=== PATIENT | female | born 1965 | race Caucasian/White ===

== ENCOUNTER → 2016-06-08 | Outpatient (CLI) | payer BC ==
[~2016-06-08] MED LIST: ACET-77 PO; AMIT25TA9 PO; BUME0.5T3 PO; CEFT2FRO2 IV; ERYT-95 PO; GABA-488 PO; INSU100I10 SQ; INSU100I14 SQ; INSU100V6 SQ; LACT20SO2 PO; LISI40TA PO; MENT71OI TOP; ONDA8TAB12 PO; PANT40TA3 PO; POTA10TA14 PO; TRAM50TA2 PO
--- NOTE | 2016-06-08 13:10 | Diagnostic Imaging Report ---
Gastric emptying scan. INDICATION: Intractable nausea. After the oral administration of 1.1 mCi of technetium 99m sulfur colloid mixed in a meal , images over the stomach with counts performed. FINDINGS: Gastric emptying is 8% at one hour , 15% at 2 hours, 18%, at 3 hours, and 37% at 4 hours. This is too slow and normally there is more than 70% emptying by 4 hours. IMPRESSION: Delayed gastric emptying. Dictated by: Dictated on workstation # [id number]
== END ==
LOC: CARD 06:54
PROVIDERS: ATTEND Family Medicine
DX: G43.A1 Cyclical vomiting, in migraine, intractable (principal)
CPT/HCPCS: 78264

== ENCOUNTER 2016-07-21 09:35 | Inpatient (IN) | payer BC ==
[2016-07-21] VITALS (10 sets, daily range): BP systolic 79–108; BP diastolic 41–57
[~2016-07-21] VITALS: Ht 170.2 cm; Wt 142.9 kg
[2016-07-21] MEDS ORDERED: NS IV 1000 ML 1,000 ML IV ONE ×3 (09:44→11:35)
[2016-07-21] MEDS ORDERED: ONDANSETRON 4 MG/2 ML (SDV) Z0FRAN IVP ONE ×2 (09:45→11:00)
--- NOTE | 2016-07-21 09:55 | Diagnostic Imaging Report ---
EXAM: CT head. TECHNIQUE: Noncontrast axial images of the brain were obtained. INDICATION: Slurred speech. FINDINGS: There is no intracranial hemorrhage, edema, or mass effect. There is, however, a subtle area of hypodensity seen in the posterior frontal region periventricular white matter on the left side of uncertain etiology. No hydrocephalus. The visualized portions of the orbits and paranasal sinuses appear unremarkable. IMPRESSION: 1. No intracranial hemorrhage. 2. There is a subtle hypodense nonspecific lesion within the left periventricular white matter in the posterior left frontal area. Better evaluation with MRI is suggested. There is a A message about the findings was left with Bhanu at the ER front end manager for Dr. Shafer at the time of dictation. Dictated by: Dictated on workstation # [id number]
[2016-07-21] MEDS ORDERED: AMIT25TA9 PO (10:04)
[2016-07-21] MEDS ORDERED: LISI40TA PO (10:04)
[2016-07-21] MEDS ORDERED: GABA-488 PO ×3 (10:04)
[2016-07-21] MEDS ORDERED: BUME0.5T3 PO (10:04)
[2016-07-21] MEDS ORDERED: INSU100V6 SQ (10:04)
[2016-07-21] MEDS ORDERED: POTA10TA14 PO (10:04)
[2016-07-21] MEDS ORDERED: INSU100I10 SQ (10:04)
[2016-07-21 10:11] LABS: INR 1.4 (0.8-1.4); PROTHROMBIN TIME PATIENT 16.6 SEC (12.2-14.7)
[2016-07-21] MEDS ORDERED: cefTRIAXone INJECTION 1,000 MG in NS (IVPB) 50 ML IV ONE (10:15)
[2016-07-21 10:20] LABS: ALANINE AMINOTRANSFERASE 35 U/L (0-55); ALBUMIN 3.1 G/DL (3.2-4.5); ANION GAP 12 MMOL/L (5-14); ASPARTATE AMINO TRANSFERASE 58 U/L (5-34); BILIRUBIN,TOTAL 1.2 MG/DL (0.1-1.0); BLOOD UREA NITROGEN 18 MG/DL (7-18); BUN/CREATININE RATIO 15; CALCIUM 8.5 MG/DL (8.5-10.1); CARBON DIOXIDE 21 MMOL/L (21-32); CHLORIDE 107 MMOL/L (98-107); CREATININE SERUM 1.21 MG/DL (0.60-1.30); GFR ESTIMATED 47; GLUCOSE 132 MG/DL (70-105); POTASSIUM 4.6 MMOL/L (3.6-5.0); SODIUM 140 MMOL/L (135-145); TOTAL PROTEIN 6.7 G/DL (6.4-8.2)
[2016-07-21 10:25] LABS: TROPONIN I < 0.30 NG/ML (<0.30)
[2016-07-21 10:26] LABS: BILIRUBIN,URINE NEGATIVE (NEGATIVE); KETONES,URINE NEGATIVE (NEGATIVE); LEUKOCYTE ESTERASE ,URINE NEGATIVE (NEGATIVE); NITRITE,URINE NEGATIVE (NEGATIVE); PH,URINE 6 (5-9); PROTEIN,URINE NEGATIVE (NEGATIVE); UROBILINOGEN,URINE NORMAL (NORMAL)
[2016-07-21] MEDS ORDERED: ACETAMINOPHEN 500 MG TAB (TYLENOL) PO ONE (10:30)
--- NOTE | 2016-07-21 10:36 | Diagnostic Imaging Report ---
EXAMINATION: Portable upright radiograph of the chest. INDICATION: Slurred speech. FINDINGS: The heart size is mildly enlarged. There is slight vascular congestion. No focal infiltrate. No effusion or pneumothorax. The mediastinum and eric appear unremarkable. IMPRESSION: Cardiomegaly with slight vascular congestion. Dictated by: Dictated on workstation # [id number]
[2016-07-21 10:37] LABS: BASOPHILS % (AUTO) 0 % (0-10); EOSINOPHILS # (AUTO) 0.1 10^3/uL (0.0-0.3); EOSINOPHILS % (AUTO) 0 % (0-10); LYMPHOCYTES % (AUTO) 5 % (12-44); MEAN CORPUSCULAR HEMOGLOBIN 30 PG (25-34); MEAN CORPUSCULAR HGB CONC 32 G/DL (32-36); MEAN CORPUSCULAR VOLUME 93 FL (80-99); MONOCYTES # (AUTO) 0.2 X 10^3 (0.0-1.0); MONOCYTES % (AUTO) 1 % (0-12); NEUTROPHILS # (AUTO) 17.7 X 10^3 (1.8-7.8); NEUTROPHILS % (AUTO) 93 % (42-75); RED BLOOD COUNT 4.39 10^6/uL (4.35-5.85); RED CELL DISTRIBUTION WIDTH 15.6 % (10.0-14.5)
[2016-07-21 10:41] LABS: PLATELET COUNT 38 10^3/uL (130-400)
[2016-07-21 10:55] LABS: BAND NEUTROPHILS 13 %; BASOPHILS % (MANUAL) 0 %; EOSINOPHILS % (MANUAL) 0 %; LYMPHOCYTES % (MANUAL) 5 %; NEUTROPHILS % (MANUAL) 81 %
[2016-07-21] MEDS ORDERED: VANCOMYCIN INJECTION 1,000 MG in NS (IVPB) 250 ML IV ONE (11:00)
--- NOTE | 2016-07-21 12:00 | ED General ---
General Chief Complaint: Neuro-Stroke Like Symptoms Stated Complaint: POSS STROKE Nursing Triage Note: Pt to ED via [facility]. Pt's reported to EMS that pt began having slurred speech and generalized weakness at 0700 today. Pt also reports she vomited at 0400 this morning. Pt reports having headache worse when lying down for past few days. Pt loudly c/o low back pain upon arrival to ED. EMS reports BP of 85/50 and temp of 102.9 en route. Nursing Sepsis Screen: Possible Severe Sepsis Risk History of Present Illness Time Seen by Provider: 09:36 Initial Comments This 50-year-old woman presented to the emergency room with complaints of vomiting, slurred speech, diffuse extremity weakness, and fever. Symptoms started this morning when she woke and vomited around 04:00. Slurred speech started around 07:00. EMS elected to bring her here rather than the closest facility due to concern for possible stroke. Patient had exacerbation of chronic lower extremity weakness and appeared to have new bilateral upper extremity weakness, right greater than left. Heart rate was in the 120s and temperature was 102.9 for EMS. Fingerstick blood sugar was 117. Patient was initially hypotensive in the field and systolic blood pressure was 117 on arrival per EMS after receiving approximately 500 mL normal saline. Initial systolic blood pressure measured in the ER was 86. Stroke activation was paged out with last known well time marked as 07:00. Patient reports having a throbbing headache for the past couple of nights. Back pain has been rather intense today. She has chronic lower extremity weakness that is worse today. She was able to ambulate briefly this morning with extreme difficulty. Allergies and Home Medications Allergies Coded Allergies: metoclopramide (Unverified Allergy, Unknown, 07/21/16) Home Medications Amitriptyline HCl 25 Mg Tablet, 25 MG PO DAILY, (Reported) Bumetanide 0.5 Mg Tablet, 0.5 MG PO DAILY, (Reported) Erythromycin Base 250 Mg Tablet, 250 MG PO TID, (Reported) FILLED 06/09/16 #90 / STILL HAS SOME LEFT IN BOTTLE Gabapentin 300 Mg Capsule, 300 MG PO DAILY, (Reported) Gabapentin 300 Mg Capsule, 600 MG PO DAILY@1200, (Reported) TAKES 2 (300 MG) CAPSULES Gabapentin 300 Mg Capsule, 900 MG PO HS, (Reported) TAKES 3 (300 MG) CAPSULES Insulin Aspart 300 Units/3 Ml Solution, SQ SLIDING/SCALE, (Reported) Insulin Glargine,Hum.rec.anlog 100 Unit/1 Ml Insuln.pen, 50 UNITS SQ DAILY, ( Reported) Insulin Glargine,Hum.rec.anlog 100 Unit/1 Ml Vial, 60 UNIT SQ HS, (Reported) Lisinopril 40 Mg Tablet, 40 MG PO DAILY, (Reported) Ondansetron HCl 8 Mg Tablet, 8 MG PO Q6H PRN for NAUSEA/VOMITING-1ST LINE, ( Reported) Pantoprazole Sodium 40 Mg Tablet.dr, 40 MG PO DAILY, (Reported) FILLED 05/21/16 #30 Potassium Chloride 10 Meq Tab.er.prt, 10 MEQ PO DAILY, (Reported) FILLED 05/14/16 #30 Constitutional: see HPI EENTM: other (dry oropharynx) Respiratory: no symptoms reported Cardiovascular: see HPI Gastrointestinal: see HPI Genitourinary: no symptoms reported : No Musculoskeletal: see HPI Skin: no symptoms reported Psychiatric/Neurological: See HPI Hematologic/Lymphatic: No Symptoms Reported Past Lvhvgvf-[id number]-Tvkeuh Hx Patient Social History Alcohol Use: Occasionally Uses Recreational Drug Use: No Smoking Status: Never a Smoker Recent Foreign Travel: No Contact w/Someone Who Travel: No Recent Infectious Disease Expo: No Recent Hopitalizations: No Seasonal Allergies Seasonal Allergies: No Surgeries HX Surgeries: Yes (spleenectomy) Surgeries: Section, Hysterectomy Respiratory Hx Respiratory Disorders: No Cardiovascular Hx Cardiac Disorders: Yes Cardiac Disorders: Hypertension Neurological Hx Neurological Disorders: Yes Neurological Disorders: Neuropathy Reproductive System Hx Reproductive Disorders: No Genitourinary Hx Genitourinary Disorders: No Gastrointestinal Hx Gastrointestinal Disorders: No Musculoskeletal Hx Musculoskeletal Disorders: Yes (generalized leg weakness) Endocrine Hx Endocrine Disorders: Yes Endocrine Disorders: Diabetes, Insulin dep HEENT HX ENT Disorders: No Cancer Hx Cancer: No Psychosocial Hx Psychiatric Problems: No Blood Transfusions 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) Physical Exam-Suspected Sepsis Physical Exam Vital Signs Vital Sign - Last 12Hours 07/21/16 07/21/16 09:44 13:30 Temp 100.9 Pulse 113 Resp 19 B/P (MAP) 86/52 Pulse Ox 94 O2 Delivery Room Air O2 Flow Rate 2.00 Capillary Refill : Less Than 3 Seconds Blood Pressure Mean: 63 General Appearance: No Apparent Distress, WD/WN HEENT: PERRL/EOMI, Normal ENT Inspection, Other (oropharynx dry) Neck: Normal Inspection Respiratory: Lungs Clear, Normal Breath Sounds, No Accessory Muscle Use, No Respiratory Distress Cardiovascular: No Edema, No Murmur, Tachycardia Gastrointestinal: Normal Bowel Sounds, Non Tender, Soft Back: Normal Inspection, No Vertebral Tenderness Extremity: Normal Inspection, No Pedal Edema Neurologic/Psychiatric: Alert, Oriented x3, No Motor/Sensory Deficits, Normal Mood/Affect, compliance technician II-XII Norm as Tested Skin: normal color, warm/dry (feels febrile) Focused Exam Time of Focused Exam: 12:02 Respiratory: No Accessory Muscle Use, No Respiratory Distress Cardiovascular: Regular Rate, Rhythm, Other (sinus tachycardia with improved rate around 100) Capillary Refill: Less Than 3 Seconds Skin: normal color, warm/dry Lactic Acid Level Progress/Results/Core Measures Suspected Sepsis Recent Fever Within 48 Hours: Yes Infection Criteria Present: Suspected New Infection New/Unexplained Altered Menta: Yes Sepsis Screen: Possible Severe Sepsis Risk Sepsis Diagnosis: SIRS Temperature:100.9 Pulse: 113 Respiratory Rate: 19 Laboratory Tests 07/21/16 10:30: White Blood Count 19.0H 07/22/16 04:45: White Blood Count 57.8*H Blood Pressure 86 /52 Mean: 63 Laboratory Tests 07/21/16 09:55: Creatinine 1.21, INR Comment 1.4, Total Bilirubin 1.2H 07/21/16 10:30: Platelet Count 38*L 07/22/16 04:45: Creatinine 2.21H, Platelet Count 58L Results/Orders Lab Results Laboratory Tests Test 07/21/16 09:55 07/21/16 09:58 07/21/16 10:05 07/21/16 10:06 Range/Units Prothrombin Time 16.6 H 12.2-14.7 SEC INR Comment 1.4 0.8-1.4 Activated Partial Thromboplast Time 31 24-35 SEC D-Dimer 4.47 H 0.00-0.49 UG/ML Sodium Level 140 135-145 MMOL/L Potassium Level 4.6 3.6-5.0 MMOL/L Chloride Level 107 98-107 MMOL/L Carbon Dioxide Level 21 21-32 MMOL/L Anion Gap 12 5-14 MMOL/L Blood Urea Nitrogen 18 7-18 MG/DL Creatinine 1.21 0.60-1.30 MG/DL Estimat Glomerular Filtration Rate 47 BUN/Creatinine Ratio 15 Glucose Level 132 H 70-105 MG/DL Calcium Level 8.5 8.5-10.1 MG/DL Total Bilirubin 1.2 H 0.1-1.0 MG/DL Aspartate Amino Transf (AST/SGOT) 58 H 5-34 U/L Alanine Aminotransferase (ALT/SGPT) 35 0-55 U/L Alkaline Phosphatase 106 40-136 U/L Troponin I < 0.30 <0.30 NG/ML Total Protein 6.7 6.4-8.2 G/DL Albumin 3.1 L 3.2-4.5 G/DL Lactic Acid Level 5.83 *H 0.50-2.00 MMOL/L Glucometer 119 H 70-110 MG/DL Thyroid Stimulating Hormone (TSH) 2.10 0.35-4.94 UIU/ML Test 07/21/16 10:19 07/21/16 10:30 07/21/16 13:05 07/21/16 19:21 Range/Units Urine Color YELLOW Urine Clarity CLEAR Urine pH 6 5-9 Urine Specific [place] 1.020 1.016-1.022 Urine Protein NEGATIVE NEGATIVE Urine Glucose (UA) 3+ H NEGATIVE Urine Ketones NEGATIVE NEGATIVE Urine Nitrite NEGATIVE NEGATIVE Urine Bilirubin NEGATIVE NEGATIVE Urine Urobilinogen NORMAL NORMAL MG/DL Urine Leukocyte Esterase NEGATIVE NEGATIVE Urine RBC (Auto) 3+ H NEGATIVE Urine RBC 5-10 H /HPF Urine WBC NONE /HPF Urine Crystals NONE /LPF Urine Bacteria NEGATIVE /HPF Urine Casts NONE /LPF Urine Mucus NEGATIVE /LPF Urine Culture Indicated NO White Blood Count 19.0 H 4.3-11.0 10^3/uL Red Blood Count 4.39 4.35-5.85 10^6/uL Hemoglobin 13.2 11.5-16.0 G/DL Hematocrit 41 35-52 % Mean Corpuscular Volume 93 80-99 FL Mean Corpuscular Hemoglobin 30 25-34 PG Mean Corpuscular Hemoglobin Concent 32 32-36 G/DL Red Cell Distribution Width 15.6 H 10.0-14.5 % Platelet Count 38 *L 130-400 10^3/uL Mean Platelet Volume 7.4-10.4 FL Neutrophils (%) (Auto) 93 H 42-75 % Lymphocytes (%) (Auto) 5 L 12-44 % Monocytes (%) (Auto) 1 0-12 % Eosinophils (%) (Auto) 0 0-10 % Basophils (%) (Auto) 0 0-10 % Neutrophils # (Auto) 17.7 H 1.8-7.8 X 10^3 Lymphocytes # (Auto) 1.0 1.0-4.0 X 10^3 Monocytes # (Auto) 0.2 0.0-1.0 X 10^3 Eosinophils # (Auto) 0.1 0.0-0.3 10^3/uL Basophils # (Auto) 0.0 0.0-0.1 10^3/uL Neutrophils % (Manual) 81 % Lymphocytes % (Manual) 5 % Monocytes % (Manual) 1 % Eosinophils % (Manual) 0 % Basophils % (Manual) 0 % Band Neutrophils 13 % Blood Morphology Comment NORMAL B-Type Natriuretic Peptide 82.3 <100.0 PG/ML Lactic Acid Level 5.21 *H 0.50-2.00 MMOL/L Glucometer 88 70-110 MG/DL Test 07/21/16 23:39 07/22/16 00:09 07/22/16 04:45 Range/Units Glucometer 95 70-110 MG/DL Hemoglobin 12.0 11.3 L 11.5-16.0 G/DL B-Type Natriuretic Peptide 484.1 H <100.0 PG/ML Albumin 2.8 L 3.2-4.5 G/DL White Blood Count 57.8 *H 4.3-11.0 10^3/uL Red Blood Count 3.75 L 4.35-5.85 10^6/uL Hematocrit 35 35-52 % Mean Corpuscular Volume 93 80-99 FL Mean Corpuscular Hemoglobin 30 25-34 PG Mean Corpuscular Hemoglobin Concent 32 32-36 G/DL Red Cell Distribution Width 16.3 H 10.0-14.5 % Platelet Count 58 L 130-400 10^3/uL Mean Platelet Volume 7.4-10.4 FL Sodium Level 140 135-145 MMOL/L Potassium Level 4.6 3.6-5.0 MMOL/L Chloride Level 112 H 98-107 MMOL/L Carbon Dioxide Level 16 L 21-32 MMOL/L Anion Gap 12 5-14 MMOL/L Blood Urea Nitrogen 30 H 7-18 MG/DL Creatinine 2.21 H 0.60-1.30 MG/DL Estimat Glomerular Filtration Rate 23 BUN/Creatinine Ratio 14 Glucose Level 123 H 70-105 MG/DL Calcium Level 7.3 L 8.5-10.1 MG/DL Phosphorus Level 4.8 H 2.3-4.7 MG/DL Magnesium Level 1.2 L 1.8-2.4 MG/DL Micro Results Microbiology 07/21/16 Blood Culture - Preliminary, Resulted Streptococcus Species 07/21/16 Blood Culture - Preliminary, Resulted Streptococcus Species 07/21/16 Influenza Types A,B Antigen (JEISON) - Final, Complete My Orders Orders - YVONNE SHAFER MD Ct Head Wo-R/O Stroke (07/21/16 09:36) Cbc With Automated Diff (07/21/16:44) Comprehensive Metabolic Panel (07/21/16:44) Lactic Acid Analyzer (07/21/16 09:44) Blood Culture (07/21/16 09:44) Sputum Culture (07/21/16 09:44) Ua Culture If Indicated (07/21/16 09:44) Protime With Inr (07/21/16:44) Partial Thromboplastin Time (07/21/16 09:44) Chest 1 View, Ap/Pa Only (07/21/16 09:44) O2 (07/21/16 09:44) Saline Lock/Iv-Start (07/21/16 09:44) Saline Lock/Iv-Start (07/21/16 09:44) Vital Signs Adult Sepsis Patie Q1HR (07/21/16 09:44) Remove Rings In Anticipation O (07/21/16 09:44) Influenza A And B Antigens (07/21/16 09:44) Fibrin Degradation Products (07/21/16 09:44) Troponin I (07/21/16 09:44) Ekg Tracing (07/21/16:44) Nothing By Mouth (07/21/16 Lunch) Accucheck Stat ONCE (07/21/16 09:44) Vital Signs-Stroke Q1H (07/21/16 09:44) Intake & Output 06,14,22 (07/21/16 09:44) Monitor-Rhythm Ecg Trace Only (07/21/16 09:44) Dysphagia Screening Tool (07/21/16 09:44) Ondansetron Injection (Zofran Injectio (07/21/16 09:45) Ns Iv 1000 Ml (Sodium Chloride 0.9%) (07/21/16 09:44) Ceftriaxone Injection (Rocephin Injectio (07/21/16 10:15) Acetaminophen Tablet (Tylenol Tablet) (07/21/16 10:30) Ns Iv 1000 Ml (Sodium Chloride 0.9%) (07/21/16 10:35) Manual Differential (07/21/16 10:30) BNP (07/21/16 10:50) Ondansetron Injection (Zofran Injectio (07/21/16 11:00) Vancomycin Injection (Vancomycin Injecti (07/21/16 11:00) Ns Iv 1000 Ml (Sodium Chloride 0.9%) (07/21/16 11:35) Picc Insertion .on Insertion (07/21/16 11:51) Cath [id number] (07/21/16 ) Amb Us Guide Vascular Access (07/21/16 ) Medications Given in ED Vital Signs/I&O Vital Sign - Last 12Hours 07/21/16 07/21/16 07/21/16 07/22/16 21:00 22:00 23:00 00:00 Temp 100.7 Pulse 89 88 96 92 Resp 26 22 14 30 B/P (MAP) 89/50 103/49 107/41 99/50 Pulse Ox 89 88 98 87 O2 Delivery Nasal Cannula Nasal Cannula Nasal Cannula Nasal Cannula O2 Flow Rate 3.00 3.00 3.00 3.00 07/22/16 07/22/16 07/22/16 07/22/16 00:00 01:00 01:00 02:00 Pulse 86 86 91 Resp 22 B/P (MAP) 97/59 92/43 Pulse Ox 90 88 88 O2 Delivery Nasal Cannula Nasal Cannula O2 Flow Rate 3.00 3.00 3.00 07/22/16 07/22/16 07/22/16 07/22/16 03:00 04:00 04:00 04:01 Temp 99.7 Pulse 96 88 Resp 22 B/P (MAP) 95/43 100/41 Pulse Ox 87 87 90 O2 Delivery Nasal Cannula Nasal Cannula O2 Flow Rate 3.00 3.00 3.00 07/22/16 07/22/16 07/22/16 05:00 06:00 07:01 Pulse 90 93 98 Resp 21 21 16 B/P (MAP) 100/41 104/39 107/50 Pulse Ox 91 90 94 O2 Delivery Nasal Cannula Nasal Cannula Nasal Cannula O2 Flow Rate 3.00 3.00 3.00 Capillary Refill : Less Than 3 Seconds Blood Pressure Mean: 63 Point of Care Testing Finger Stick Blood Glucose: 119 ECG Initial ECG Impression Date: July 21, 2016 Initial ECG Impression Time: 09:48 Initial ECG Rate: 110 Initial ECG Rhythm: S.Tach Comment Sinus tachycardia with no ST elevation or depression. No abnormal intervals or axis deviation. Diagnostic Imaging Diagonstic Imaging: Xray Plain Films/CT/US/NM/MRI: chest Comments Chest x-ray viewed by me and report reviewed. See report below: NAME: DOUGLAS BRAR [facility] REC#: [id number] PT STATUS: REG ER : 1965 PHYSICIAN: YVONNE SHAFER MD ADMIT DATE: 07/21/16/ER Signed Date of Exam: 07/21/16 CHEST 1 VIEW, AP/PA ONLY EXAMINATION: Portable upright radiograph of the chest. INDICATION: Slurred speech. FINDINGS: The heart size is mildly enlarged. There is slight vascular congestion. No focal infiltrate. No effusion or pneumothorax. The mediastinum and eric appear unremarkable. IMPRESSION: Cardiomegaly with slight vascular congestion. Dictated by: Dictated on workstation # [id number] Dict: 07/21/16 1032 Trans: 07/21/16 1044 Interpreted by: BETO STEINBERG MD Electronically signed by: BETO STEINBERG MD 07/21/16 1044 Diagonstic Imaging: CT Plain Films/CT/US/NM/MRI: head Comments CT head viewed by me and report reviewed. See report below: NAME: DOUGLAS BRAR [facility] REC#: [id number] PT STATUS: REG ER : 1965 PHYSICIAN: YVONNE SHAFER MD ADMIT DATE: 07/21/16/ER Signed Date of Exam: 07/21/16 CT HEAD WO-R/O STROKE EXAM: CT head. TECHNIQUE: Noncontrast axial images of the brain were obtained. INDICATION: Slurred speech. FINDINGS: There is no intracranial hemorrhage, edema, or mass effect. There is, however, a subtle area of hypodensity seen in the posterior frontal region periventricular white matter on the left side of uncertain etiology. No hydrocephalus. The visualized portions of the orbits and paranasal sinuses appear unremarkable. IMPRESSION: 1. No intracranial hemorrhage. 2. There is a subtle hypodense nonspecific lesion within the left periventricular white matter in the posterior left frontal area. Better evaluation with MRI is suggested. There is a A message about the findings was left with Bhanu at the ER front end software engineer for Dr. Shafer at the time of dictation. Dictated by: Dictated on workstation # [id number] Dict: 07/21/16 0945 Trans: 07/21/16 1028 Interpreted by: BETO STEINBERG MD Electronically signed by: BETO STEINBERG MD 07/21/16 1028 Critical Care Note Critical Care Start Time: 09:36 Stop Time: 12:30 Total Time (minutes) 174 Progress Stroke activation was paged out upon patient arrival. Patient was found to have an NIH stroke score of 6. The majority of the points came from lower extremity weakness which is chronic but exacerbated today. She also had 1 point for drift of the right upper extremity. Slurred speech appears to be related to dry mouth. Sepsis was suspected due to the tachycardia and fever. Ultimately no source of infection was identified. Patient received Rocephin and vancomycin in the emergency room. 4 L of normal saline were ordered to complete the 30 ML per kilogram bolus recommended for severe sepsis and septic shock. One liter of fluid was initiated by EMS. Tylenol was given for fever and Zofran was given for nausea. Case was reviewed with Dr. Henao, stroke neurologist at [facility] at 10:25. She recommended no TPA at this time given no evidence of significant new deficits other than the right arm drift. There is greater risk of complications from TPA use in sepsis and septic shock. Also, patient should be stabilized from a sepsis perspective and MRI imaging should be considered. Recommendation for MRI with contrast was recommended by Dr. Steinberg in discussion regarding her CT scan abnormalities. I would also recommend an MRI of the lumbar spine given her chronic lower extremity weakness and lower back pain as well. 12:15 Patient became hypotensive again with systolic blood pressures in the 80s prior to starting the fourth liter of IV fluids. Fourth liter of IV fluids is now hanging. She has received Rocephin and is getting vancomycin. Departure Communication Time/Spoke to Admitting Phy: 11:[address] Subramanian Time/Spoke to Consulting Physi: 11:30 Communication/Consulting Dr. Wilkinson and Dr. Meyer Impression Impression: Primary Impression: Septic shock Additional Impressions: Severe sepsis Right arm weakness Nausea and vomiting Qualified Codes: R11.2 - Nausea with vomiting, unspecified Lower back pain Qualified Codes: M54.5 - Low back pain Bilateral leg weakness Thrombocytopenia Disposition: ADMITTED INPATIENT Condition: Improved Decision to Admit Reason: Admit from ER (General) Decision to Admit/Date: July 21, 2016 Time/Decision to Admit Time: 09:40 Departure-Patient Inst. Referrals: NO,LOCAL PHYSICIAN (PCP/Family) Primary Care Physician YVONNE SHAFER MD July 21, 2016 12:00
--- NOTE | 2016-07-21 13:02 | Diagnostic Imaging Report ---
INDICATION: Central venous catheter evaluation. 1243 hrs. FINDINGS: Since examination of earlier in the day, there has been placement of right upper extremity PICC with catheter tip projecting over the lower superior vena cava. There is no pneumothorax. Otherwise no significant change is seen. IMPRESSION: Right upper extremity PICC reaches the level of the lower superior vena cava near the right atrium without evidence of complication. Dictated by: Dictated on workstation # [id number]
[2016-07-21] MEDS ORDERED: ERYT-95 PO (13:05)
[2016-07-21] MEDS ORDERED: INSU100I14 SQ (13:05)
[2016-07-21] MEDS ORDERED: PANT40TA3 PO (13:05)
[2016-07-21] MEDS ORDERED: ONDA8TAB12 PO (13:05)
--- NOTE | 2016-07-21 13:10 | History & Physical-Hospitalist ---
HPI History of Present Illness: HPI/Chief Complaint CC: Severe sepsis of unknown source HPI: This is a 50-year-old white female clinic patient of Dr. Torres at [facility] the presents to the emergency room after waking up at 4 o'clock this morning trying to get to the bathroom and was not feeling well. She was doing well until the night before last when she felt her heart beating in her head but then it actually improved enough for her to go to work yesterday and she finished the day although very tired. She doesn't report a fever or chills at home until this morning and she also told me she was just treated for UTI and completed antibiotics 1 month ago. 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 She has been given the aggressive IV fluid resuscitation for severe sepsis in the emergency room but she does have vascular congestion on chest x-ray so we'll consult cardiology for volume overload with hypertension from severe sepsis. Her platelet count is 38,000 as forewarned by her that she has abnormal complete blood count levels due to splenectomy but we'll consult Dr. Wesley due to ITP history. Critical illness will require pulmonary critical care specialty consultation Dr. Wilkinson will see her in the near future. She is placed on empiric antibiotic of vancomycin and Zosyn and will be monitored closely in the ICU for any need of pressor therapy and/or additional multisystem organ failure with intubation that could result from volume overload. She reports the back pain has been the most severe and does report nausea and loss of appetite the last several days. Even though the urinalysis appeared to be normal I suspect pyelonephritis with bacteremia due to recent UTI 1 month ago. Source: patient Exam Limitations: no limitations Date Seen 07/21/16 Attending Physician Tita Lucas DO PCP No,Local Physician Referring Physician Date of Admission July 21, 2016 at 11:53 Home Medications & Allergies Home Medications Reviewed patient Home Medication Reconciliation Form Allergies Allergies Coded Allergies metoclopramide (Unverified Allergy, Unknown, 07/21/16) Past Zjzoghw-Mnrxll-Rnzree Hx Patient Social History Marrital Status: Employed/Student: employed ([employer]) Alcohol Use: Occasionally Uses Recreational Drug Use: No Smoking Status: Never a Smoker Recent Foreign Travel: No Contact w/other who traveled: No Recent Hopitalizations: No Recent Infectious Disease Expo: No Seasonal Allergies Seasonal Allergies: No Surgeries HX Surgeries: Yes (spleenectomy) Surgeries: Section, Hysterectomy Respiratory Hx Respiratory Disorders: No Cardiovascular Hx Cardiovascular Disorders: Yes Cardiac Disorders: Hypertension Neurological Hx Neurological Disorders: Yes Neurological Disorders: Neuropathy Reproductive System Hx Reproductive Disorders: No Genitourinary Hx Genitourinary Disorders: Yes Genitourinary Disorders: Bladder Infection Gastrointestinal Hx Gastrointestinal Disorders: Yes Gastrointestinal Disorders: Chronic Constipation Musculoskeletal Hx Musculoskeletal Disorders: Yes (generalized leg weakness) Endocrine Hx Endocrine Disorders: Yes Endocrine Disorders: Diabetes, Insulin dep HEENT HX ENT Disorders: No Cancer Hx Cancer: No Psychosocial Hx Psychiatric Problems: No Blood Transfusions 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) Review of Systems Constitutional: see HPI, chills, diaphoresis, dizziness, fever, malaise EENTM: no symptoms reported Respiratory: short of breath Cardiovascular: palpitations Gastrointestinal: loss of appetite, nausea, vomiting Genitourinary: decreased output, frequency, hematuria, pain Musculoskeletal: back pain Skin: no symptoms reported Psychiatric/Neurological: Anxiety All Other Systems Reviewed Negative Unless Noted: Yes Physical Exam Physical Exam Vital Signs Vital Sign - Last 12Hours 07/21/16 09:44 Temp 100.9 Pulse 113 Resp 19 B/P (MAP) 86/52 Pulse Ox 94 O2 Delivery Room Air Capillary Refill : Less Than 3 Seconds General Appearance: No Apparent Distress, WD/WN, Chronically ill, Other ( actuely ill and cannon) Eyes: Bilateral Eye Normal Inspection, Bilateral Eye PERRL HEENT: PERRL/EOMI, Normal ENT Inspection, Pharynx Normal Neck: Full Range of Motion, Normal Inspection, Non Tender, Supple, Carotid Bruit Respiratory: Chest Non Tender, Lungs Clear, Normal Breath Sounds, No Accessory Muscle Use, No Respiratory Distress Cardiovascular: No Edema, No Gallop, No JVD, No Murmur, Normal Peripheral Pulses, Tachycardia Gastrointestinal: Normal Bowel Sounds, No Organomegaly, No Pulsatile Mass, Non Tender, Soft Back: Normal Inspection, No CVA Tenderness, No Vertebral Tenderness Extremity: Normal Capillary Refill, Normal Inspection, Normal Range of Motion, Non Tender, No Calf Tenderness, No Pedal Edema Neurologic/Psychiatric: Alert, Oriented x3, No Motor/Sensory Deficits, Depressed Affect Skin: Normal Color, Warm/Dry Lymphatic: No Adenopathy Results Results/Procedures Lab Laboratory Tests 07/21/16 09:55 07/21/16 10:30 Assessment/Plan Admission Diagnosis Assessment: Severe sepsis of unknown source but I suspect pyelonephritis and bacteremia in need of aggressive IV fluid resuscitation and/or pressor therapy in addition to empiric antibiotics of Zosyn and vancomycin 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 consulting hematology Volume overload and vascular congestion on chest x-ray will consult cardiology due to the fact of high volume fluid resuscitation will place her at risk for congestive heart failure Diabetes mellitus Morbid obesity likely obstructive sleep apnea undiagnosed Leukocytosis Thrombocytopenia with to history of splenectomy Assessment and Plan Plan: Severe sepsis protocol with high volume resuscitation Cardiology, pulmonology with critical care, hematology consultations Empiric antibiotics broad-spectrum Monitor labs Monitor blood pressure may need pressor therapy SCDs for DVT prophylaxis Supportive care but critically ill patient may decline further and require intubation monitor closely Clinical Quality Measures Stroke: Date of last known well: July 21, 2016 TITA LUCAS DO July 21, 2016 13:10
[2016-07-21] MEDS ORDERED: CATHETER FLUSH 10 ML SYR IV PRN (13:45)
[2016-07-21] MEDS: NS IV 1000 ML 1,000 ML IV SCH ×2 (14:12→23:32)
--- NOTE | 2016-07-21 14:52 | Consultation-Cardiology ---
HPI-Cardiology Cardiology Consultation Date of Consultation 07/21/16 Date of Admission Indication: Severe sepsis, cardiomegaly HPI Patient is a very pleasant 50 y/o female who presented to the ER with complaints of extreme weakness and lethargy upon awakening at 4 am this morning to use the restroom. Reports feeling fatigued yesterday, but otherwise had felt fine. Was treated for UTI appox 3-4 weeks ago, but has not had any illness since then. Further evaluation in the ER revealed severe sepsis of unknown etiology. CXR revealed cardiomegaly with vascular congestion. Patient denies any history of CAD or CHF. Currently hypotensive. Denies any CP or palpitations , denies syncopal episode. 50 years old lady with history of fatigue and loss of energy for the past 3-4 months, had extensive workup done and it was negative. Patient woke up early this morning to go to work where she felt extremely weak was unable to get out of bed, had chills, brought to the emergency room noted to have leukocytosis and fever. Had elevated lactic acid, source of infection was not identified. She denied any cough or sputum, denied any dysuria, has been having constipation and abdominal cramping but unable to have a bowel movement. She denied any syncope. Has been having lower back pain. Treated for UTI recently. No recent tick bite, no photophobia or nuchal rigidity Home Medications & Allergies Allergies: Coded Allergies: metoclopramide (Unverified Allergy, Unknown, 07/21/16) Home Medication List Reviewed: Yes EMF-Oxnukj-Lnxodz Hx Patient Social History Marital Status: Employed/Student: employed ([employer]) Alcohol Use: Occasionally Uses Recreational Drug Use: No Smoking Status: Never a Smoker Recent Foreign Travel: No Recent Infectious Disease Expo: No Recent Hopitalizations: No Past Medical History HTN, ITP, Obesity, DM, chronic lower extremity weakness Family Medical History Significant Family History: No Pertinent Family Hx Constitutional: No chills, No diaphoresis EENTM: No blurred vision, No double vision, No vision loss Respiratory: No cough, dyspnea on exertion, No orthopnea, short of breath, No wheezing Gastrointestinal: No abdominal pain, constipation, No diarrhea, No hematemesis Genitourinary: No dysuria, No frequency, No hematuria Musculoskeletal: back pain Skin: No lesions, No rash Psychiatric/Neurological: Denies Anxiety, Denies Depressed Reviewed Test Results Reviewed Test Results Lab Laboratory Tests 07/21/16 09:55: Prothrombin Time 16.6H, INR Comment 1.4, Activated Partial Thromboplast Time 31 , D-Dimer 4.47H, Sodium Level 140, Potassium Level 4.6, Chloride Level 107, Carbon Dioxide Level 21, Anion Gap 12, Blood Urea Nitrogen 18, Creatinine 1.21, Estimat Glomerular Filtration Rate 47, BUN/Creatinine Ratio 15, Glucose Level 132H, Calcium Level 8.5, Total Bilirubin 1.2H, Aspartate Amino Transf (AST/SGOT ) 58H, Alanine Aminotransferase (ALT/SGPT) 35, Alkaline Phosphatase 106, Troponin I < 0.30, Total Protein 6.7, Albumin 3.1L 07/21/16 09:58: Lactic Acid Level 5.83*H 07/21/16 10:05: Glucometer 119H 07/21/16 10:19: Urine Color YELLOW, Urine Clarity CLEAR, Urine pH 6, Urine Specific [place] 1.020, Urine Protein NEGATIVE, Urine Glucose (UA) 3+H, Urine Ketones NEGATIVE, Urine Nitrite NEGATIVE, Urine Bilirubin NEGATIVE, Urine Urobilinogen NORMAL, Urine Leukocyte Esterase NEGATIVE, Urine RBC (Auto) 3+H, Urine RBC 5-10H, Urine WBC NONE, Urine Crystals NONE, Urine Bacteria NEGATIVE, Urine Casts NONE, Urine Mucus NEGATIVE, Urine Culture Indicated NO 07/21/16 10:30: White Blood Count 19.0H, Red Blood Count 4.39, Hemoglobin 13.2, Hematocrit 41, Mean Corpuscular Volume 93, Mean Corpuscular Hemoglobin 30, Mean Corpuscular Hemoglobin Concent 32, Red Cell Distribution Width 15.6H, Platelet Count 38*L, Mean Platelet Volume , Neutrophils (%) (Auto) 93H, Lymphocytes (%) (Auto) 5L, Monocytes (%) (Auto) 1, Eosinophils (%) (Auto) 0, Basophils (%) (Auto) 0, Neutrophils # (Auto) 17.7H, Lymphocytes # (Auto) 1.0, Monocytes # (Auto) 0.2, Eosinophils # (Auto) 0.1, Basophils # (Auto) 0.0, Neutrophils % (Manual) 81, Lymphocytes % (Manual) 5, Monocytes % (Manual) 1, Eosinophils % (Manual) 0, Basophils % (Manual) 0, Band Neutrophils 13, Blood Morphology Comment NORMAL, B- Type Natriuretic Peptide 82.3 07/21/16 13:05: Lactic Acid Level 5.21*H Microbiology 07/21/16 Influenza Types A,B Antigen (JEISON) - Final, Complete ECG Impression ECG Initial ECG Rhythm: S.Tach Physical Exam Vital Signs Vital Sign - Last 12Hours 07/21/16 07/21/16 09:44 13:30 Temp 100.9 Pulse 113 Resp 19 B/P (MAP) 86/52 Pulse Ox 94 O2 Delivery Room Air O2 Flow Rate 2.00 Capillary Refill : Less Than 3 Seconds General Appearance: Moderate Distress HEENT: PERRL/EOMI, TMs Normal Neck: Normal Inspection, Non Tender, Supple Respiratory: Chest Non Tender, Lungs Clear, Normal Breath Sounds, No Accessory Muscle Use, No Respiratory Distress Cardiovascular: No Gallop, No JVD, No Murmur, Tachycardia Gastrointestinal: Normal Bowel Sounds, No Pulsatile Mass, Soft, Tenderness ( mildly ttp) Rectal: Deferred Back: No CVA Tenderness Extremity: Non Tender, No Calf Tenderness Neurologic/Psychiatric: Alert, Oriented x3, No Facial Droop, Motor Weakness A/P-Cardiology Admission Diagnosis Severe sepsis Cardiomegaly HTN Thrombocytopenia Assessment/Plan Severe sepsis- unknown etiology. Continue aggressive IV fluid resuscitation, pressors as needed. Continue IV antibiotic. Questionable pyelonephritis and bacteremia, evaluate TSH. Continue to monitor closely. Volume overload with cardiomegaly and vascular congestion on CXR- will further eval with 2D Echo. Thrombocytopenia- history of ITP with splenectomy. Continue to monitor. DM HTN- currently hypotensive secondary to sepsis. Continue to hold BP medications. Multiple risk factors for obstructive sleep apnea, I recommended evaluating sleep study as an outpatient DM- management by PCP Chronic BLE weakness of unknown etiology- patient reports workup currently in progress with PCP as outpatient Low back pain Morbid obesity, probably underlying NABIL Right arm weakness and slurred speech- improved. CT Head revealed subtle hypodense nonspecific lesion within the left periventricular white matter in the posterior left frontal area.Better evaluation with MRI is suggested. H/O splenectomy, cholecystectomy, appendectomy Thank you for allowing us to participate in the management of Ms. Richey. This is Yaritza Henriquez PA-C as a scribe for Dr. Meyer. This is Dr. Meyer, I have seen and evaluated the patient with Yaritza, she is a 50-year-old lady was admitted with sepsis as described in history of present illness, I interviewed the patient perform physical examination and discussed the management plan with Yaritza, I agree with the current scribe, she is being evaluated for sepsis of unknown source, septic workup is in progress, started on broad-spectrum antibiotic, has been having abdominal pain and constipation, treated recently for UTI, no signs of volume overload but has been having mild pedal edema lower extremity weakness. Patient has questionable sleep apnea, no workup for sleep apnea was done in the past. I made few modification to the note used Italic Font Clinical Quality Measures Stroke: Date of last known well: July 21, 2016 YARITZA TESFAYE July 21, 2016 14:52 IRENE MEYER MD July 21, 2016 16:16
[2016-07-21] MEDS: ACETAMINOPHEN 500 MG TAB (TYLENOL) PO PRN (15:50)
--- NOTE | 2016-07-21 17:41 | Pulmonary Consultation ---
History of Present Illness History of Present Illness Date of Consultation 07/21/16 17:35 Date of Admission Reason for Visit: Severe sepsis, cardiomegaly Allergies and Home Medications Allergies Coded Allergies: metoclopramide (Unverified Allergy, Unknown, 07/21/16) Home Medications Amitriptyline HCl 25 Mg Tablet, 25 MG PO DAILY, (Reported) Bumetanide 0.5 Mg Tablet, 0.5 MG PO DAILY, (Reported) Erythromycin Base 250 Mg Tablet, 250 MG PO TID, (Reported) FILLED 06/09/16 #90 / STILL HAS SOME LEFT IN BOTTLE Gabapentin 300 Mg Capsule, 300 MG PO DAILY, (Reported) Gabapentin 300 Mg Capsule, 600 MG PO DAILY@1200, (Reported) TAKES 2 (300 MG) CAPSULES Gabapentin 300 Mg Capsule, 900 MG PO HS, (Reported) TAKES 3 (300 MG) CAPSULES Insulin Aspart 300 Units/3 Ml Solution, SQ SLIDING/SCALE, (Reported) Insulin Glargine,Hum.rec.anlog 100 Unit/1 Ml Insuln.pen, 50 UNITS SQ DAILY, ( Reported) Insulin Glargine,Hum.rec.anlog 100 Unit/1 Ml Vial, 60 UNIT SQ HS, (Reported) Lisinopril 40 Mg Tablet, 40 MG PO DAILY, (Reported) Ondansetron HCl 8 Mg Tablet, 8 MG PO Q6H PRN for NAUSEA/VOMITING-1ST LINE, ( Reported) Pantoprazole Sodium 40 Mg Tablet.dr, 40 MG PO DAILY, (Reported) FILLED 05/21/16 #30 Potassium Chloride 10 Meq Tab.er.prt, 10 MEQ PO DAILY, (Reported) FILLED 05/14/16 #30 Past Xxtcsoy-Tytpso-Bidawx Hx Patient Social History Alcohol Use: Occasionally Uses Recreational Drug Use: No Smoking Status: Never a Smoker Recent Foreign Travel: No Contact w/Someone Who Travel: No Recent Infectious Disease Expo: No Recent Hopitalizations: No Physical Abuse Screen: No Sexual Abuse: No Seasonal Allergies Seasonal Allergies: No Surgeries HX Surgeries: Yes (spleenectomy) Surgeries: Section, Hysterectomy Respiratory Hx Respiratory Disorders: No Cardiovascular Hx Cardiac Disorders: Yes Cardiac Disorders: Hypertension Neurological Hx Neurological Disorders: Yes Neurological Disorders: Neuropathy Reproductive System Hx Reproductive Disorders: No Genitourinary Hx Genitourinary Disorders: Yes Genitourinary Disorders: Bladder Infection Gastrointestinal Hx Gastrointestinal Disorders: Yes Gastrointestinal Disorders: Chronic Constipation Musculoskeletal Hx Musculoskeletal Disorders: Yes (generalized leg weakness) Musculoskeletal Disorders: Chronic Back Pain Endocrine Hx Endocrine Disorders: Yes Endocrine Disorders: Diabetes, Insulin dep HEENT HX ENT Disorders: No Cancer Hx Cancer: No Psychosocial Hx Psychiatric Problems: No Blood Transfusions 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) Family Medical History Significant Family History: No Pertinent Family Hx Exam Exam Vital Signs Date Time Temp Pulse Resp B/P (MAP) Pulse Ox O2 Delivery O2 Flow Rate FiO2 07/21/16 16:41 100.8 07/21/16 16:00 92 3.00 07/21/16 15:50 101.5 07/21/16 14:00 93 3.00 07/21/16 13:58 101 07/21/16 13:35 102.5 103 20 91 2.00 07/21/16 13:30 88 Nasal Cannula 2.00 07/21/16 09:44 100.9 113 19 86/52 94 Room Air General Appearance: Moderate Distress HEENT: PERRL/EOMI, TMs Normal Neck: Normal Inspection, Non Tender, Supple Respiratory: Chest Non Tender, Lungs Clear, Normal Breath Sounds, No Accessory Muscle Use, No Respiratory Distress Cardiovascular: No Gallop, No JVD, No Murmur, Tachycardia Capillary Refill: Less Than 3 Seconds Extremity: Non Tender, No Calf Tenderness Neurologic/Psychiatric: Alert, Oriented x3, No Facial Droop, Motor Weakness Skin: Normal Color, Warm/Dry Lymphatic: No Adenopathy Results Lab Laboratory Tests 07/21/16 09:55 07/21/16 10:30 Assessment/Plan Assessment/Plan Severe Sepsis -Vanco, zosyn -Delacruz cultures Metabolic lactic acidosis -IVF Constipation -CT abd/pelvis pending -no peritoneal signs and patient is passing gas Hx of splenectomy and ITP Morbid obesity Thrombocytopenia with to history of splenectomy Clinical Quality Measures DVT/VTE Risk/Contraindication: Risk Factor Score Per Nursin RFS Level Per Nursing on Admit: 3=High Stroke: Date of last known well: July 21, 2016 NAIDA HUGGINS DO July 21, 2016 17:40
[2016-07-21] MEDS ORDERED: PHARMACY TO DOSE IV SCH (17:45)
--- NOTE | 2016-07-21 17:58 | Diagnostic Imaging Report ---
PROCEDURE: CT abdomen and pelvis without contrast. TECHNIQUE: Multiple contiguous axial images were obtained through the abdomen and pelvis without the use of intravenous contrast. INDICATION: Severe sepsis and abdominal pain. CORRELATION STUDY: None. FINDINGS: Heart size enlarged. Dense calcification of the mitral valve. Apparent tip of the central line at the right atrium. Small, trace pleural effusion. Minimal atelectasis suggested about the lung bases. There is a prominent lymph node anterior to the heart just below the xiphoid measures 22 x 13 mm. There is a small hiatal hernia with wall thickening in low esophagus. Unenhanced liver is heterogeneous. There is somewhat of a micronodular contour suggested. Definitive focal lesion does not appear to be present but there does appear to be some fatty infiltration. The spleen is absent. Pancreas atrophic. There is question of asymmetric prominence at the level of pancreatic head. Gallbladder is absent with clips in the fossa. No bile duct dilatation. Adrenal glands are unremarkable. Kidneys have an unremarkable appearance. No hydronephrosis. Abdominal aorta normal in contour. There is generalized haziness about the mesentery, particularly in the upper abdomen. There are enlarged particularly upper abdominal krystle hepatic lymph nodes. Also prominent central retroperitoneal lymph nodes. Stomach mildly distended particularly with retained gastric contents. Small bowel is also mildly prominent. However, no significant transition point to suggest high-degree obstruction. The colon demonstrates moderate severity fecal retention, particularly distally. There is asymmetric wall thickening of the ascending and proximal transverse colon. Scattered colonic diverticula, particularly of the sigmoid colon. Urinary bladder is decompressed around the Nichole catheter. Osseous structures are unremarkable. IMPRESSION: 1. Generalized haziness about the mesentery, particularly upper abdomen. Pancreatitis would be considered less likely but not excluded. Correlation with laboratory evaluation. 2. Rather prominent, particularly upper abdominal krystle hepatic lymphadenopathy. Some of these lymph nodes are borderline pathologically enlarged raising concern for potential neoplasm. 3. There is very questionable fullness at the level of the pancreatic head. Nodular appearance about the liver suggestive of underlying cirrhosis. 4. Asymmetric wall thickening of the proximal colon likely largely attributed to its collapsed state. Colitis would be difficult to exclude. Colonic diverticulosis. Few mildly prominent loops of small bowel without definitive transition to suggest obstruction. 5. Trace pleural effusions. If at all possible, postcontrast imaging would be likely of additional benefit. Dictated by: Dictated on workstation # [id number]
[2016-07-21] MEDS ORDERED: PIPERACILLIN/TAZOBACTAM 4.5 GM/NS 100 ML IV NR ×2 (18:15)
[2016-07-21] MEDS: IBUPROFEN TABLET 200 MG TAB PO PRN (18:21)
[2016-07-21] MEDS: MINERAL OIL ENEMA 133 ML BTL PR NR ×2 (18:35→23:21)
[2016-07-21] MEDS ORDERED: VANCOMYCIN 2,500 MG/NS 500 ML IVPB IV NR ×2 (19:00)
[2016-07-21] MEDS: ONDANSETRON 4 MG/2 ML (SDV) Z0FRAN IV PRN (19:08)
[2016-07-21] MEDS: DOCUSATE SODIUM 100 MG (COLACE) CAP PO SCH (20:36)
[2016-07-21] MEDS: LACTULOSE SYRUP 10GM/15ML (ENULOSE) 30ML UDC PO SCH (20:36)
[2016-07-21] MEDS: PIPERACILLIN SODIUM/TAZOBACTAM 4.5 GM in NS (IVPB) 100 ML IV SCH (23:32)
[2016-07-22] VITALS (24 sets, daily range): BP systolic 92–160; BP diastolic 39–77
[2016-07-22] MEDS ORDERED: NS IV 1000 ML 1,000 ML IV ONE
[2016-07-22] MEDS: ONDANSETRON 4 MG/2 ML (SDV) Z0FRAN IV PRN ×2 (00:27→05:38)
[2016-07-22] MEDS: IBUPROFEN TABLET 200 MG TAB PO PRN ×2 (01:19→16:06)
[2016-07-22 04:58] LABS: MEAN CORPUSCULAR HEMOGLOBIN 30 PG (25-34); MEAN CORPUSCULAR HGB CONC 32 G/DL (32-36); MEAN CORPUSCULAR VOLUME 93 FL (80-99); PLATELET COUNT 58 10^3/uL (130-400); RED BLOOD COUNT 3.75 10^6/uL (4.35-5.85); RED CELL DISTRIBUTION WIDTH 16.3 % (10.0-14.5)
[2016-07-22 05:06] LABS: WHITE BLOOD COUNT 57.8 10^3/uL (4.3-11.0)
[2016-07-22 05:20] LABS: CALCIUM 7.3 MG/DL (8.5-10.1); CREATININE SERUM 2.21 MG/DL (0.60-1.30); MAGNESIUM 1.2 MG/DL (1.8-2.4); PHOSPHORUS 4.8 MG/DL (2.3-4.7); POTASSIUM 4.6 MMOL/L (3.6-5.0)
[2016-07-22] MEDS: POTASSIUM CL 10MEQ/50ML IVPB 50 ML IV SCH (05:31)
[2016-07-22] MEDS: KCL 20 MEQ TAB (K-DUR) PO SCH (05:33)
[2016-07-22] MEDS ORDERED: NS IV 500 ML 500 ML IV SCH (06:13)
--- NOTE | 2016-07-22 06:14 | Pulmonary Progress Note ---
Subjective Subjective/Events-last exam Pt did have BM last night. denies SOB. Exam Exam Vital Signs Date Time Temp Pulse Resp B/P (MAP) Pulse Ox O2 Delivery O2 Flow Rate FiO2 07/22/16 04:00 90 3.00 07/22/16 03:00 96 22 95/43 87 Nasal Cannula 3.00 07/22/16 02:00 91 22 92/43 88 Nasal Cannula 3.00 07/22/16 01:00 86 07/22/16 01:00 86 22 97/59 88 Nasal Cannula 3.00 07/22/16 00:00 90 3.00 07/22/16 00:00 100.7 92 30 99/50 87 Nasal Cannula 3.00 07/21/16 23:00 96 14 107/41 98 Nasal Cannula 3.00 07/21/16 22:00 88 22 103/49 88 Nasal Cannula 3.00 07/21/16 21:00 89 26 89/50 89 Nasal Cannula 3.00 07/21/16 20:00 98.0 92 26 95/44 88 Nasal Cannula 3.00 07/21/16 20:00 88 3.00 07/21/16 19:07 100.3 07/21/16 19:06 97 07/21/16 19:00 98 26 89 Nasal Cannula 3.00 07/21/16 19:00 100.4 07/21/16 18:21 101.3 07/21/16 17:45 101.3 07/21/16 17:00 108/57 07/21/16 16:45 24 94/54 Nasal Cannula 3.00 07/21/16 16:41 100.8 07/21/16 16:00 92 3.00 07/21/16 15:50 101.5 07/21/16 15:45 101.5 18 94/50 Nasal Cannula 3.00 07/21/16 14:45 79/48 07/21/16 14:00 27 07/21/16 14:00 90/48 07/21/16 14:00 93 3.00 07/21/16 13:58 101 07/21/16 13:40 100.2 101 22 87/46 92 Nasal Cannula 3.00 07/21/16 13:35 102.5 103 20 91 2.00 07/21/16 13:30 88 Nasal Cannula 2.00 07/21/16 09:44 100.9 113 19 86/52 94 Room Air I & O 07/22/16 07:00 Intake Total 6290 ml Output Total 200 ml Balance 6090 ml General Appearance: Moderate Distress HEENT: PERRL/EOMI, TMs Normal Neck: Normal Inspection, Non Tender, Supple Respiratory: Chest Non Tender, Lungs Clear, Normal Breath Sounds, No Accessory Muscle Use, No Respiratory Distress Cardiovascular: No Gallop, No JVD, No Murmur, Tachycardia Capillary Refill: Less Than 3 Seconds Extremity: Non Tender, No Calf Tenderness Neurologic/Psychiatric: Alert, Oriented x3, No Facial Droop, Motor Weakness Skin: Normal Color, Warm/Dry Lymphatic: No Adenopathy Results Lab Laboratory Tests 07/21/16 09:55 07/21/16 10:30 07/22/16 00:09 07/22/16 04:45 Assessment/Plan Assessment/Plan Severe Sepsis -rakan Flwoers -Delacruz cultures Metabolic lactic acidosis -IVF - change IVF to LR bolus another liter and increase IVF to 250cc/hr Acute renal failure -check US of bilateral kidneys ?pancreatitis -US liver pancreas Constipation - resolved -check amylase lipase Hx of splenectomy and ITP Morbid obesity Thrombocytopenia with to history of splenectomy I expect pt will get worse before she gets better. SHe needs to stay in ICU and we need to be aggressive with IVF even if it requires ventilator support. Clinical Quality Measures DVT/VTE Risk/Contraindication: Risk Factor Score Per Nursin RFS Level Per Nursing on Admit: 3=High Stroke: Date of last known well: July 21, 2016 NAIDA HUGGINS DO July 22, 2016 06:14
[2016-07-22] MEDS ORDERED: LACTATED RINGERS 1,000 ML IV ONE ×2 (06:16→06:30)
[2016-07-22] MEDS: MAGNESIUM 1 GM/100 ML IVPB 100 ML IV SCH ×2 (06:22→07:39)
[2016-07-22] MEDS ORDERED: VANCOMYCIN 2000 MG/NS 500 ML IVPB IV SCH ×2 (07:00)
[2016-07-22] MEDS: LACTATED RINGERS 1,000 ML IV SCH ×5 (07:43→23:14)
[2016-07-22] MEDS: PIPERACILLIN SODIUM/TAZOBACTAM 4.5 GM in NS (IVPB) 100 ML IV SCH (08:26)
[2016-07-22] MEDS: DOCUSATE SODIUM 100 MG (COLACE) CAP PO SCH ×2 (08:32→19:54)
[2016-07-22] MEDS: LACTULOSE SYRUP 10GM/15ML (ENULOSE) 30ML UDC PO SCH ×2 (08:32→19:30)
[2016-07-22] MEDS: NS IV 1000 ML 1,000 ML IV SCH ×2 (08:33→08:34)
--- NOTE | 2016-07-22 08:34 | Diagnostic Imaging Report ---
PROCEDURE: US abdomen complete. TECHNIQUE: Multiple real-time grayscale images were obtained over the abdomen in various projections. INDICATION: Sepsis. Attention to the pancreas and the liver. FINDINGS: The pancreas is largely obscured by bowel gas. There is a 2.8 x 1.8 x 2.8 CM hypoechoic nodule seen near the location of the pancreatic neck/body junction. It is uncertain if this is pancreatic mass or peripancreatic lymph node. The liver contour is nodular compatible with cirrhosis. There is hepatopetal flow in the portal vein. The liver parenchyma is slightly heterogenous with no discrete mass. The spleen is obscured. The abdominal aorta is obscured by bowel gas. The IVC visualized portions appear unremarkable. The right kidney is 12.1 CM in length and the left kidney is also 12.9 CM in length. No hydronephrosis or focal lesion. No ascites seen. The gallbladder has been removed. IMPRESSION: 1. Heterogenous liver with nodular contour suggestive of cirrhosis. 2. A 2.8 cm hypoechoic nodule within or around the pancreatic neck/body junction area. Better evaluation with MRI of the abdomen or enhanced CT scan is recommended. Dictated by: Dictated on workstation # [id number]
--- NOTE | 2016-07-22 08:46 | Diagnostic Imaging Report ---
CLINICAL INDICATION: Patient with sepsis. EXAM: Portable chest x-ray, upright view. COMPARISON: Chest x-ray dated 07/21/2016. FINDINGS: Again seen is consolidation in the left lung base with concern for atelectasis versus infiltrate and possible left pleural effusion. There is upper limits of normal heart size. The pulmonary vasculature is within normal limits. The remainder of the lungs is clear. There is no pneumothorax. The right PICC line is again seen in a similar position. The remainder of this exam shows no significant interval change compared to the prior study of comparison. IMPRESSION: 1. Overall stable chest x-ray exam with left lung base atelectasis versus infiltrate and possible left pleural effusion. 2. Upper limits of normal heart size. Dictated by: Dictated on workstation # [id number]
[2016-07-22 09:50] LABS: AMYLASE 25 U/L (25-125); LIPASE 25 U/L (8-78)
[2016-07-22] MEDS: cefTRIAXone INJECTION 2,000 MG in NS (IVPB) 50 ML IV SCH (09:52)
[2016-07-22] MEDS: GABAPENTIN 300 MG (NEURONTIN) CAP PO SCH ×3 (09:53→20:20)
--- NOTE | 2016-07-22 09:58 | ECHOCARDIOGRAPHY REPORT ---
DATE OF SERVICE: 07/21/2016 PROCEDURE: 2D echocardiogram. REFERRING PHYSICIAN: Tita Subramanian D.O. INDICATION: Sepsis. MEASUREMENTS: LVID end diastolic 4.7. IVS thickness 1.0. LVPW thickness 1.0. Left atrial diameter of 3.5. Ejection fraction 60%. FINDINGS: 1. Technically suboptimal study. 2. The left ventricle is normal in size with normal contractility, systolic function appeared to be normal. Estimated ejection fraction 60%. 3. The left atrium is normal in size. No clot or thrombus was seen within the left atrium. 4. The right atrium and right ventricle are normal in size. No clot or thrombus was seen within the right side. 5. Mitral valve is normal in morphology with mild mitral regurgitation noted by color Doppler flow. No mitral valve prolapse. No mitral valve stenosis. 6. Aortic valve is trileaflet with normal opening and closing pattern. No significant aortic stenosis or regurgitation was seen. 7. Tricuspid valve is normal in morphology with mild tricuspid regurgitation noted by color Doppler flow. Doppler across the tricuspid valve estimated pulmonary artery pressure of 4 plus right atrial pressure. 8. Pulmonic valve is functioning normally. 9. No pericardial effusion. CONCLUSION: 1. Technically suboptimal study. 2. Normal left ventricular size and systolic function. Estimated ejection fraction is 60%. 3. Mild mitral and tricuspid regurgitation. 4. Estimated pulmonary artery pressure of 10 mmHg. Job ID: [id number] DocumentID: [id number] Dictated Date: 07/21/2016 17:02:46 Software Developer Intern Date: 07/22/2016 09:23:03 Dictated By: IRENE SUMMERS MD
--- NOTE | 2016-07-22 11:41 | Progress Note-Hospitalist ---
Progress Note HPI/CC on Admission CC: Severe sepsis of unknown source HPI: This is a 50-year-old white female clinic patient of Dr. Torres at [facility] the presents to the emergency room after waking up at 4 o'clock this morning trying to get to the bathroom and was not feeling well. She was doing well until the night before last when she felt her heart beating in her head but then it actually improved enough for her to go to work yesterday and she finished the day although very tired. She doesn't report a fever or chills at home until this morning and she also told me she was just treated for UTI and completed antibiotics 1 month ago. 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 She has been given the aggressive IV fluid resuscitation for severe sepsis in the emergency room but she does have vascular congestion on chest x-ray so we'll consult cardiology for volume overload with hypertension from severe sepsis. Her platelet count is 38,000 as forewarned by her that she has abnormal complete blood count levels due to splenectomy but we'll consult Dr. Wesley due to ITP history. Critical illness will require pulmonary critical care specialty consultation Dr. Wilkinson will see her in the near future. She is placed on empiric antibiotic of vancomycin and Zosyn and will be monitored closely in the ICU for any need of pressor therapy and/or additional multisystem organ failure with intubation that could result from volume overload. She reports the back pain has been the most severe and does report nausea and loss of appetite the last several days. Even though the urinalysis appeared to be normal I suspect pyelonephritis with bacteremia due to recent UTI 1 month ago. Progress Notes/Assess & Plan Date Seen 07/22/16 Admission Dx/Process Assessment: Severe sepsis of unknown source but I suspect pyelonephritis and bacteremia in need of aggressive IV fluid resuscitation and/or pressor therapy in addition to empiric antibiotics of Zosyn and vancomycin 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 consulting hematology Volume overload and vascular congestion on chest x-ray will consult cardiology due to the fact of high volume fluid resuscitation will place her at risk for congestive heart failure Diabetes mellitus Morbid obesity likely obstructive sleep apnea undiagnosed Leukocytosis Thrombocytopenia with to history of splenectomy Diagonsis/Assessment & Plan Chart Review: Max fever 100.7 at midnight, max fever yesterday of 101.5 WBC 57.8 Hgb 11.3 Platelets 58 Creat 2.21 so DC Zosyn and Vanc and initiated high dose of Rocephin Abdominal Ultrasound and CT showed cirrhosis CXR LLL atelectasis Reviewed cardiology and pulmonology consult BCx + for Strep Pneumoniae Patient Interview: Labs were discussed with pt Pt is feeling much improved and feels that she can move in her bed better Pt states that Dr. Wilkinson ordered about 3 different enemas. Pt has had BMs. Pt's CXR was discussed with pt. Pt has a pneumonia which was mostly caused by Strep. Pt denies experiencing pain in her back Physical exam stable. BM x 3 No fever, vital signs stable, pleasant, much improved, family at the bedside Regular rate and rhythm, clear to all station bilaterally diminished in the bases No edema Laboratory Tests 07/22/16 00:09 07/22/16 04:45 Assessment: Severe sepsis with Strep pneumoniae bacteremia s/p aggressive IV fluid resuscitation in addition high dose Rocephin s/p DC empiric broad spectrum Zosyn and vancomycin 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 consulting hematology Volume overload and vascular congestion on chest x-ray will consult cardiology due to the fact of high volume fluid resuscitation will place her at risk for congestive heart failure Diabetes mellitus Morbid obesity likely obstructive sleep apnea undiagnosed Leukocytosis increased today but improved clinical picture Thrombocytopenia with to history of splenectomy New ARF Plan: Severe sepsis protocol with high volume resuscitation required due to hypotension Cardiology, pulmonology with critical care, hematology consultations Empiric antibiotics broad-spectrum Monitor labs Monitor blood pressure may need pressor therapy SCDs for DVT prophylaxis Supportive care Continue antibiotics Encourage efforts to ambulate Monitor creat Scribed by Machelle Bennett under the direct supervision of Dr. Lucas. NUHA LUCAS DO July 22, 2016 11:41
[2016-07-22] MEDS ORDERED: VASOPRESSIN INJECTION 20 UNIT in NS (IVPB) 100 ML IV SCH (11:43)
[2016-07-22] MEDS: NOREPINEPHRINE 4 MG in D5W 250 ML (IVPB) 250 ML IV SCH ×3 (11:54→23:56)
--- NOTE | 2016-07-22 13:17 | Cardiology Progress Note ---
Subjective Subjective/Events-last exam Patient in bed. Tearful and anxious about undergoing MRI. Denies any CP or dyspnea. Has had large BM today. Review of Systems General: No Chills, No Night Sweats, Fatigue HEENT: No Visual Changes, No Dysphasia, No Sore Throat Pulmonary: No Dyspnea, No Cough Cardiovascular: No: Chest Pain, Palpitations, Paroxysmal Noc. Dyspnea Gastrointestinal: No: Abdominal Pain, Constipation, Nausea, Vomiting Genitourinary: No Dysuria, No Frequency Musculoskeletal: back pain, No: neck pain Neurological: Weakness, No: Change in speech, Confusion, Numbness Objective-Cardiology Exam Last Set of Vital Signs Vital Signs 07/22/16 07/22/16 07/22/16 07/22/16 08:00 12:00 12:08 13:00 Temp 98.4 Pulse 98 Resp 11 B/P (MAP) 141/75 Pulse Ox 94 O2 Delivery Nasal Cannula O2 Flow Rate 2.00 Capillary Refill : Less Than 3 Seconds I&O Bad tableGeneral: Alert, Oriented X3, Cooperative HEENT: Atraumatic, PERRLA Neck: Supple, No JVD, No Thyromegaly Lungs: Clear to Auscultation, Normal Air Movement Heart: Regular Rate, Normal S1, Normal S2, No Murmurs Abdomen: Normal Bowel Sounds, Soft, Other (mildly diffusely ttp) Extremities: No Edema Skin: No Rashes, No Significant Lesion Neuro: Normal Gait Psych/Mental Status: Mental Status NL, Mood NL Results Lab Laboratory Tests 07/22/16 00:09 07/22/16 04:45 A/P-Cardiology Admission Diagnosis Severe sepsis Cardiomegaly HTN Thrombocytopenia Assessment/Plan Severe sepsis- unknown etiology. BC x 2 positive for strep pneumoniae. Continue IV Rocephin and continue to monitor. Volume overload with cardiomegaly and vascular congestion on CXR- 2D Echo revealed no CHF. Thrombocytopenia- history of ITP with splenectomy. Continue to monitor. 2.8 cm hypoechoic nodule within or around the pancreatic neck/body junction area. Better evaluation with MRI of the abdomen or enhanced CT scan is recommended. Dr. Srivastava is following Leukocystosis- WBC increased to 58 today. Continue IV antibiotics. DM HTN- blood pressure controlled, continue to monitor. ARF- continue to monitor renal function closely DM- management by PCP Chronic BLE weakness of unknown etiology- patient reports workup currently in progress with PCP as outpatient Low back pain Morbid obesity, probably underlying NABIL, recommend sleep study as outpatient. Right arm weakness and slurred speech- improved. CT Head revealed subtle hypodense nonspecific lesion within the left periventricular white matter in the posterior left frontal area.Better evaluation with MRI is suggested. H/O splenectomy, cholecystectomy, appendectomy Clinical Quality Measures DVT/VTE Risk/Contraindication: Risk Factor Score Per Nursin RFS Level Per Nursing on Admit: 3=High Stroke: Date of last known well: July 21, 2016 GALLO TESFAYE July 22, 2016 13:17
--- NOTE | 2016-07-22 15:05 | Cardiology Progress Note ---
Subjective Subjective/Events-last exam patient is sitting up in a chair, feeling better, denied any chest pain or shortness of breath, had a bowel movement. Workup as described below Review of Systems General: No Chills, No Night Sweats, No Fatigue, No Malaise, No Appetite, No Other HEENT: No Head Aches, No Visual Changes, No Eye Pain, No Ear Pain, No Dysphasia , No Sinus Congestion, No Post Nasal Drip, No Sore Throat, No Other Pulmonary: No Dyspnea, No Cough, No Pleuritic Chest Pain, No Other Cardiovascular: No: Chest Pain, Edema, Lt Headedness, Orthopnea, Other, Palpitations, Paroxysmal Noc. Dyspnea Objective-Cardiology Exam Last Set of Vital Signs Vital Signs 07/22/16 07/22/16 07/22/16 07/22/16 12:00 12:08 13:00 14:54 Temp 99.3 Pulse 98 Resp 11 B/P (MAP) 141/75 Pulse Ox 94 O2 Delivery Nasal Cannula O2 Flow Rate 2.00 Capillary Refill : Less Than 3 Seconds I&O Bad tableGeneral: Alert, Oriented X3, Cooperative HEENT: Atraumatic, PERRLA Neck: Supple, No JVD, No Thyromegaly Lungs: Clear to Auscultation, Normal Air Movement Heart: Regular Rate, Normal S1, Normal S2, No Murmurs Abdomen: Normal Bowel Sounds, Soft, Other (mildly diffusely ttp) Extremities: No Edema Skin: No Rashes, No Significant Lesion Neuro: Normal Gait Psych/Mental Status: Mental Status NL, Mood NL Results Lab Laboratory Tests 07/22/16 00:09 07/22/16 04:45 A/P-Cardiology Admission Diagnosis Severe sepsis Cardiomegaly HTN Thrombocytopenia Assessment/Plan Severe sepsis- unknown etiology. BC x 2 positive for strep pneumoniae. Continue IV Rocephin and continue to monitor, planning for KALIN tomorrow. Volume overload with cardiomegaly and vascular congestion on CXR- 2D Echo revealed no CHF. Thrombocytopenia- history of ITP with splenectomy. Continue to monitor. 2.8 cm hypoechoic nodule within or around the pancreatic neck/body junction area. Better evaluation with MRI of the abdomen or enhanced CT scan is recommended. Dr. Srivastava is following Leukocystosis- WBC increased to 58 today. Continue IV antibiotics. DM HTN- blood pressure controlled, continue to monitor. ARF- continue to monitor renal function closely DM- management by PCP Chronic BLE weakness of unknown etiology- patient reports workup currently in progress with PCP as outpatient Low back pain Morbid obesity, probably underlying NABIL, recommend sleep study as outpatient. Right arm weakness and slurred speech- improved. CT Head revealed subtle hypodense nonspecific lesion within the left periventricular white matter in the posterior left frontal area.Better evaluation with MRI is suggested. H/O splenectomy, cholecystectomy, appendectomy Clinical Quality Measures DVT/VTE Risk/Contraindication: Risk Factor Score Per Nursin RFS Level Per Nursing on Admit: 3=High Stroke: Date of last known well: July 21, 2016 IRENE SUMMERS MD July 22, 2016 15:05
--- NOTE | 2016-07-22 15:28 | Consultation ---
History of Present Illness History of Present Illness Patient Consulted On(raman/time) 07/22/16 15:22 Reason for Visit: Severe sepsis, cardiomegaly History of Present Illness I have been asked by Dr. Tita Subramanian to see this lady admitted with sepsis possibly post splenectomy in nature. She developed vague symptoms and was found to be hypotensive eventually responding to fluid resuscitation. Blood cultures have grown pneumococcus, supporting the diagnosis of post splenectomy sepsis. In the past, she had undergone splenectomy to manage immune thrombocytopenic purpura. Her renal function was compromised at the time of ER visit, but this seems to be improving. Nonenhanced CT scan shows evidence of cirrhosis of the liver with portal hypertension along with a possible mass lesion/lymphadenopathy around the head of the pancreas. An ultrasound of the upper abdomen confirms patency of the portal vein, thereby, ruling out acute portal venous thrombosis contributing to portal hypertension. In addition, there is calcification of the mitral valve annulus requiring further evaluation. Allergies and Home Medications Allergies Coded Allergies: metoclopramide (Unverified Allergy, Unknown, 07/21/16) Home Medications Amitriptyline HCl 25 Mg Tablet, 25 MG PO DAILY, (Reported) Bumetanide 0.5 Mg Tablet, 0.5 MG PO DAILY, (Reported) Erythromycin Base 250 Mg Tablet, 250 MG PO TID, (Reported) FILLED 06/09/16 #90 / STILL HAS SOME LEFT IN BOTTLE Gabapentin 300 Mg Capsule, 300 MG PO DAILY, (Reported) Gabapentin 300 Mg Capsule, 600 MG PO DAILY@1200, (Reported) TAKES 2 (300 MG) CAPSULES Gabapentin 300 Mg Capsule, 900 MG PO HS, (Reported) TAKES 3 (300 MG) CAPSULES Insulin Aspart 300 Units/3 Ml Solution, SQ SLIDING/SCALE, (Reported) Insulin Glargine,Hum.rec.anlog 100 Unit/1 Ml Insuln.pen, 50 UNITS SQ DAILY, ( Reported) Insulin Glargine,Hum.rec.anlog 100 Unit/1 Ml Vial, 60 UNIT SQ HS, (Reported) Lisinopril 40 Mg Tablet, 40 MG PO DAILY, (Reported) Ondansetron HCl 8 Mg Tablet, 8 MG PO Q6H PRN for NAUSEA/VOMITING-1ST LINE, ( Reported) Pantoprazole Sodium 40 Mg Tablet.dr, 40 MG PO DAILY, (Reported) FILLED 05/21/16 #30 Potassium Chloride 10 Meq Tab.er.prt, 10 MEQ PO DAILY, (Reported) FILLED 05/14/16 #30 Past Mphdfku-Bkzbca-Bedgob Hx Patient Social History Alcohol Use: Occasionally Uses Recreational Drug Use: No Smoking Status: Never a Smoker Recent Foreign Travel: No Contact w/Someone Who Travel: No Recent Infectious Disease Expo: No Recent Hopitalizations: No Physical Abuse Screen: No Sexual Abuse: No Seasonal Allergies Seasonal Allergies: No Surgeries HX Surgeries: Yes (spleenectomy) Surgeries: Section, Hysterectomy Respiratory Hx Respiratory Disorders: No Cardiovascular Hx Cardiac Disorders: Yes Cardiac Disorders: Hypertension Neurological Hx Neurological Disorders: Yes Neurological Disorders: Neuropathy Reproductive System Hx Reproductive Disorders: No Genitourinary Hx Genitourinary Disorders: Yes Genitourinary Disorders: Bladder Infection Gastrointestinal Hx Gastrointestinal Disorders: Yes Gastrointestinal Disorders: Chronic Constipation Musculoskeletal Hx Musculoskeletal Disorders: Yes (generalized leg weakness) Musculoskeletal Disorders: Chronic Back Pain Endocrine Hx Endocrine Disorders: Yes Endocrine Disorders: Diabetes, Insulin dep HEENT HX ENT Disorders: No Cancer Hx Cancer: No Psychosocial Hx Psychiatric Problems: No Blood Transfusions 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) Family Medical History Significant Family History: No Pertinent Family Hx Review of Systems-General Constitutional: malaise, weakness EENTM: no symptoms reported Respiratory: short of breath Cardiovascular: palpitations Gastrointestinal: constipation Genitourinary: no symptoms reported Musculoskeletal: back pain Skin: no symptoms reported Psychiatric/Neurological: Anxiety Physical Exam-General Problems Physical Exam Vital Signs Vital Sign - Last 12Hours 07/21/16 07/21/16 09:44 13:30 Temp 100.9 Pulse 113 Resp 19 B/P (MAP) 86/52 Pulse Ox 94 O2 Delivery Room Air O2 Flow Rate 2.00 Capillary Refill : Less Than 3 Seconds General Appearance: moderate distress HEENT: normal ENT inspection Neck: normal inspection Respiratory: decreased breath sounds Cardiovascular: regular rate, rhythm Gastrointestinal: non tender, soft Extremities: non-tender Skin: warm/dry Lymphatic: no adenopathy Comments Subcostal scar from previous open cholecystectomy no incisional hernia. Assessment/Plan Assessment/Plan Admission Diagnosis/Plan Lady with possible post splenectomy sepsis. Pneumococcus in blood culture. Profound leukocytosis. Portal hypertension of unknown etiology. MRI pending. Will require endoscopic ultrasound with possible FNA regarding the pancreatic head abnormality/lesion. Clinical Quality Measures DVT/VTE Risk/Contraindication: Risk Factor Score Per Nursin RFS Level Per Nursing on Admit: 3=High Stroke: Date of last known well: July 21, 2016 FREDIS CADENA MD July 22, 2016 15:28
--- NOTE | 2016-07-22 15:41 | Progress Note (SOAP) ---
Subjective Subjective/Events-last exam No abdominal symptoms. Renal function still compromised, urine output reasonable. Review of Systems General: No Chills, No Night Sweats, No Fatigue, No Malaise HEENT: No Head Aches, No Eye Pain, No Ear Pain, No Dysphasia, No Sinus Congestion, No Post Nasal Drip, No Sore Throat Pulmonary: Cough Cardiovascular: No: Chest Pain, Edema, Lt Headedness, Orthopnea, Palpitations, Paroxysmal Noc. Dyspnea Gastrointestinal: No: Abdominal Pain, Constipation, Diarrhea, Hematochezia, Melena, Nausea, Vomiting Genitourinary: No Dysuria, No Frequency, No Incontinence, No Hematuria, No Retention Musculoskeletal: No: arm pain, back pain, foot pain, hand pain, leg pain, neck pain, other, shoulder pain Neurological: No: Change in speech, Confusion, Incoordination, Numbness, Other , Seizures, Weakness Objective Exam Vital Signs Date Time Temp Pulse Resp B/P (MAP) Pulse Ox O2 Delivery O2 Flow Rate FiO2 07/22/16 14:54 99.3 Nasal Cannula 2.00 07/22/16 13:00 98 07/22/16 12:08 94 2.00 07/22/16 12:00 92 11 141/75 95 Nasal Cannula 3.00 07/22/16 11:00 99 12 137/65 95 Nasal Cannula 3.00 07/22/16 10:00 91 15 123/60 94 Nasal Cannula 3.00 07/22/16 09:00 95 25 115/56 95 Nasal Cannula 3.00 07/22/16 08:26 94 3.00 07/22/16 08:00 98.4 Nasal Cannula 3.00 07/22/16 07:01 98 16 107/50 94 Nasal Cannula 3.00 07/22/16 07:00 97 07/22/16 06:00 93 21 104/39 90 Nasal Cannula 3.00 07/22/16 05:00 90 21 100/41 91 Nasal Cannula 3.00 07/22/16 04:01 99.7 07/22/16 04:00 90 3.00 07/22/16 04:00 88 22 100/41 87 Nasal Cannula 3.00 07/22/16 03:00 96 22 95/43 87 Nasal Cannula 3.00 07/22/16 02:00 91 22 92/43 88 Nasal Cannula 3.00 07/22/16 01:00 86 07/22/16 01:00 86 22 97/59 88 Nasal Cannula 3.00 07/22/16 00:00 90 3.00 07/22/16 00:00 100.7 92 30 99/50 87 Nasal Cannula 3.00 07/21/16 23:00 96 14 107/41 98 Nasal Cannula 3.00 07/21/16 22:00 88 22 103/49 88 Nasal Cannula 3.00 07/21/16 21:00 89 26 89/50 89 Nasal Cannula 3.00 07/21/16 20:00 98.0 92 26 95/44 88 Nasal Cannula 3.00 07/21/16 20:00 88 3.00 07/21/16 19:07 100.3 07/21/16 19:06 97 07/21/16 19:00 98 26 89 Nasal Cannula 3.00 07/21/16 19:00 100.4 07/21/16 18:21 101.3 07/21/16 17:45 101.3 07/21/16 17:00 108/57 07/21/16 16:45 24 94/54 Nasal Cannula 3.00 07/21/16 16:41 100.8 07/21/16 16:00 92 3.00 07/21/16 15:50 101.5 07/21/16 15:45 101.5 18 94/50 Nasal Cannula 3.00 I & O 07/22/16 07:00 Intake Total 6540 ml Output Total 210 ml Balance 6330 ml Capillary Refill : Less Than 3 Seconds General Appearance: Anxious Neck: Normal Inspection Respiratory: Decreased Breath Sounds Cardiovascular: Regular Rate, Rhythm Gastrointestinal: non tender, soft Extremity: Normal Capillary Refill Neurologic/Psychiatric: Alert, Oriented x3 Results Lab Laboratory Tests 07/21/16 19:21: Glucometer 88 07/21/16 23:39: Glucometer 95 07/22/16 00:09: Hemoglobin 12.0, B-Type Natriuretic Peptide 484.1H, Albumin 2.8L 07/22/16 04:45: Hemoglobin 11.3L, White Blood Count 57.8*H, Red Blood Count 3.75L, Hematocrit 35 , Mean Corpuscular Volume 93, Mean Corpuscular Hemoglobin 30, Mean Corpuscular Hemoglobin Concent 32, Red Cell Distribution Width 16.3H, Platelet Count 58L, Mean Platelet Volume , Sodium Level 140, Potassium Level 4.6, Chloride Level 112H, Carbon Dioxide Level 16L, Anion Gap 12, Blood Urea Nitrogen 30H, Creatinine 2.21H, Estimat Glomerular Filtration Rate 23, BUN/Creatinine Ratio 14 , Glucose Level 123H, Calcium Level 7.3L, Phosphorus Level 4.8H, Magnesium Level 1.2L 07/22/16 09:15: Lactic Acid Level 3.05*H, Amylase Level 25, Lipase 25 07/22/16 12:11: Glucometer 118H 07/22/16 14:10: Lactic Acid Level 2.27*H Microbiology 07/21/16 Blood Culture - Preliminary, Resulted Streptococcus Pneumoniae 07/21/16 Influenza Types A,B Antigen (JEISON) - Final, Complete Assessment/Plan Assessment/Plan Assess & Plan/Chief Complaint Lady with possible post splenectomy sepsis. Pneumococcus in blood culture. Profound leukocytosis. Portal hypertension of unknown etiology. MRI pending. Will require endoscopic ultrasound with possible FNA regarding the pancreatic head abnormality/lesion. MRI pending Final Diagnosis Post splenectomy sepsis Clinical Quality Measures DVT/VTE Risk/Contraindication: Risk Factor Score Per Nursin RFS Level Per Nursing on Admit: 3=High Stroke: Date of last known well: July 21, 2016 FREDIS CADENA MD July 22, 2016 15:41
[2016-07-22] MEDS: LORazepam INJ 2 MG/ML (ATIVAN) VIAL IVP NR ×2 (17:09→18:00)
[2016-07-22] MEDS: ACETAMINOPHEN 500 MG TAB (TYLENOL) PO PRN (18:39)
--- NOTE | 2016-07-22 20:00 | Diagnostic Imaging Report ---
PROCEDURE: MR imaging abdomen without contrast. INDICATION: Sepsis. Abdominal pain. Abnormal recent imaging. TECHNIQUE: Multiplanar, multisequence MR imaging of the abdomen was performed without contrast. CORRELATION STUDY: Ultrasound 07/22/2016, CT 07/21/2016. FINDINGS: This is a fairly compromised MRI examination of the abdomen. There is some signal attenuation, limited inability to breath-hold, and motion artifact present. Additionally, contrast was not able to administered secondary to low GFR. FINDINGS: Bilateral pleural effusions are present, relatively small. Bibasilar airspace disease, left greater than right, likely reflective of pneumonia. Heart size is enlarged. There is heterogeneous appearance about the liver with a micronodular contour consistent with cirrhosis. Definitive geographic lesion is not suggested. Spleen is not visualized, appearing absent. Adrenal glands are relatively unremarkable. The pancreas is fairly limited on this study, particularly for assessment of potential pancreatic mass. A definitive mass does not appear to be present. There are areas of nodularity in the krystle hepatic region. Given overall features, this may very well be reflective of multiple collateral vessels. Pathologically enlarged lymph nodes would be difficult to exclude, and some lymphadenopathy does appear to be present. One of these is near the pancreatic neck, which may very well account for the recent ultrasound findings. No definitive evidence of peripancreatic inflammatory changes. No significant upper abdominal ascites. Slight wall thickening about the duodenum could be reflective of underlying duodenitis. The renal parenchyma is unremarkable. Kidney size is normal. No obstruction. Abdominal aorta is normal in contour. Inferior vena cava appears to be of normal size and distention. Rather prominent S-type thoracolumbar scoliotic curvature is present. IMPRESSION: 1. Overall fairly limited and compromised MRI examination of the abdomen. Particularly for assessment of the pancreas, definitive pancreatic mass is not visualized but can easily go undetected on this study. Nodularity in the krystle hepatic region. Large portions likely reflective of varicosities. However, there also appears to be presence of lymph nodes. Ultimately, short-term followup imaging is recommended preferably when the patient is able to tolerate better imaging including potential postcontrast CT imaging. 2. Features favor probable changes of cirrhosis. Dictated by: Dictated on workstation # [id number]
[2016-07-22] MEDS: MENTHOL/ZINC OXIDE (CALMOSEPTINE) 113 GM TUBE TOP SCH (20:21)
[2016-07-22] MEDS ORDERED: HYDROmorphone (DILAUDID) 2 MG/ML VIAL ONE (22:12)
[2016-07-22] MEDS ORDERED: NALOXONE 2 MG/2 ML (NARCAN) SYR ONE (22:25)
[2016-07-22] MEDS ORDERED: HYDROmorphone (DILAUDID) 2 MG/ML VIAL IV ONE (23:30)
[2016-07-22] MEDS ORDERED: NALOXONE 0.4 MG/ML 1 ML (NARCAN) VIAL IV ONE (23:30)
[2016-07-23] VITALS (27 sets, daily range): BP systolic 99–177; BP diastolic 53–93
[2016-07-23] MEDS: LACTATED RINGERS 1,000 ML IV SCH ×6 (03:17→23:10)
[2016-07-23 04:08] LABS: MEAN CORPUSCULAR HEMOGLOBIN 30 PG (25-34); MEAN CORPUSCULAR HGB CONC 33 G/DL (32-36); MEAN CORPUSCULAR VOLUME 93 FL (80-99); PLATELET COUNT 42 10^3/uL (130-400); RED BLOOD COUNT 3.85 10^6/uL (4.35-5.85); RED CELL DISTRIBUTION WIDTH 16.4 % (10.0-14.5)
[2016-07-23 04:17] LABS: WHITE BLOOD COUNT 46.5 10^3/uL (4.3-11.0)
[2016-07-23 04:28] LABS: CALCIUM 7.9 MG/DL (8.5-10.1); CREATININE SERUM 1.14 MG/DL (0.60-1.30); MAGNESIUM 1.8 MG/DL (1.8-2.4); PHOSPHORUS 2.9 MG/DL (2.3-4.7); POTASSIUM 4.4 MMOL/L (3.6-5.0)
[2016-07-23] MEDS ORDERED: LACTATED RINGERS 1,000 ML IV ONE (04:45)
--- NOTE | 2016-07-23 04:51 | Pulmonary Progress Note ---
Subjective Subjective/Events-last exam -PT was having back pain last night and received morphine post morphine she went into respiratory distress. She had to be bagged/masked and narcan was given. Currently she is on BiPAP. Exam Exam Vital Signs Date Time Temp Pulse Resp B/P (MAP) Pulse Ox O2 Delivery O2 Flow Rate FiO2 07/23/16 04:00 92 16 92 50.00 07/23/16 04:00 95 50 07/23/16 03:00 90 27 121/53 96 NIV Bilevel 50.00 07/23/16 02:13 102 16 96 50.00 07/23/16 02:00 90 17 104/58 94 NIV Bilevel 50.00 07/23/16 01:00 90 23 99/56 94 NIV Bilevel 50.00 07/23/16 00:39 90 14 50.00 07/23/16 00:03 109 14 159/81 97 NIV Bilevel 50.00 07/23/16 00:00 95 50 07/22/16 23:45 96 15 94/54 91 NIV Bilevel 50.00 07/22/16 23:00 97.6 07/22/16 23:00 93 27 100/57 91 NIV Bilevel 50.00 07/22/16 22:45 NIV Bilevel 50.00 07/22/16 22:37 110 18 50.00 07/22/16 22:00 93 27 107/54 91 Nasal Cannula 2.00 07/22/16 21:00 90 24 112/62 92 Nasal Cannula 2.00 07/22/16 20:00 95 3.00 07/22/16 20:00 86 25 112/65 90 Nasal Cannula 2.00 07/22/16 19:00 89 07/22/16 19:00 88 25 119/64 91 Nasal Cannula 2.00 07/22/16 18:39 99.7 07/22/16 18:00 94 23 124/63 93 Nasal Cannula 2.00 07/22/16 17:00 90 13 113/58 93 Nasal Cannula 2.00 07/22/16 16:24 99.4 Nasal Cannula 2.00 07/22/16 16:24 95 2.00 07/22/16 16:00 87 23 107/56 94 Nasal Cannula 2.00 07/22/16 15:29 2 07/22/16 14:54 99.3 Nasal Cannula 2.00 07/22/16 14:00 91 24 113/59 92 Nasal Cannula 3.00 07/22/16 13:00 98 07/22/16 13:00 97 24 114/59 9 Nasal Cannula 3.00 07/22/16 12:08 94 2.00 07/22/16 12:00 92 11 141/75 95 Nasal Cannula 3.00 07/22/16 11:00 99 12 137/65 95 Nasal Cannula 3.00 07/22/16 10:00 91 15 123/60 94 Nasal Cannula 3.00 07/22/16 09:00 95 25 115/56 95 Nasal Cannula 3.00 07/22/16 08:26 94 3.00 07/22/16 08:00 98.4 Nasal Cannula 3.00 07/22/16 07:01 98 16 107/50 94 Nasal Cannula 3.00 07/22/16 07:00 97 07/22/16 06:00 93 21 104/39 90 Nasal Cannula 3.00 07/22/16 05:00 90 21 100/41 91 Nasal Cannula 3.00 I & O 07/23/16 07:00 Intake Total 9420 ml Output Total 2400 ml Balance 7020 ml General Appearance: Anxious, Moderate Distress HEENT: PERRL/EOMI, Normal ENT Inspection, Other (oropharynx dry) Neck: Normal Inspection Respiratory: Decreased Breath Sounds Cardiovascular: Regular Rate, Rhythm Capillary Refill: Less Than 3 Seconds Gastrointestinal: non tender, soft Extremity: Normal Capillary Refill Neurologic/Psychiatric: Alert, Oriented x3 Skin: Normal Color, Warm/Dry Lymphatic: No Adenopathy Results Lab Laboratory Tests 07/21/16 09:55 07/21/16 10:30 07/22/16 00:09 07/22/16 04:45 07/23/16 03:52 Assessment/Plan Assessment/Plan Severe Sepsis with strep bacteremia r/o endocarditis -Rocephin -Pt may require intubation today. -KALIN planned for today at 0900 Acute respiratory distress - last night -PT was having back pain last night and received morphine post morphine she went into respiratory distress. She had to be bagged/masked and narcan was given. Currently she is on BiPAP. -Check ABG Hypotension during respiratory event last night -Levophed - will attempt to D/C -Will get art line if unable to D/C levophed Metabolic lactic acidosis- improved -IVF - change IVF to LR bolus another liter IVF to 250cc/hr Acute renal failure - improved ?pancreatic mass -US liver pancreas and MRI are not definitive - will need outpatient EUS Hx of splenectomy and ITP Morbid obesity Thrombocytopenia with to history of splenectomy Needs to stay in ICU may require ventilator support today. Clinical Quality Measures DVT/VTE Risk/Contraindication: Risk Factor Score Per Nursin RFS Level Per Nursing on Admit: 3=High Stroke: Date of last known well: July 21, 2016 NAIDA HUGGINS DO July 23, 2016 04:51
[2016-07-23 05:02] LABS: ABG BASE EXCESS -5.6 MMOL/L (-2.5-2.5); ABG HCO3 20 MMOL/L (23-27); ABG OXYGEN SATURATION 98 % (94-100); ABG PCO2 45 MMHG (35-45); ABG PO2 100 MMHG (79-93); ABG TCO2 21.3 MMOL/L (21.0-31.0)
[2016-07-23 05:03] LABS: ABG PH 7.28 (7.37-7.43); PATIENT TEMP 98.9
[2016-07-23 05:04] LABS: ALLENS TEST YES-POS
[2016-07-23] MEDS: POTASSIUM CL 10MEQ/50ML IVPB 50 ML IV SCH (05:04)
[2016-07-23] MEDS: KCL 20 MEQ TAB (K-DUR) PO SCH (05:04)
[2016-07-23] MEDS: MAGNESIUM 1 GM/100 ML IVPB 100 ML IV SCH (05:04)
[2016-07-23] MEDS ORDERED: SODIUM BICARB 8.4% 50 MEQ/50 ML (ABBOTT) SYR ONE (05:04)
[2016-07-23] MEDS: ONDANSETRON 4 MG/2 ML (SDV) Z0FRAN IV PRN ×4 (05:22→21:04)
[2016-07-23] MEDS ORDERED: SODIUM BICARB 8.4% 50 MEQ/50 ML (ABBOTT) SYR IV ONE (05:30)
--- NOTE | 2016-07-23 07:57 | Cardiology Progress Note ---
Subjective Subjective/Events-last exam Patient is lethargic, went to respiratory distress last night with hypoxemia requiring BiPAP, I discussed the management plan with Dr. Wilkinson and the patient and her family and decided to postpone her KALIN until she is more stable from the respiratory standpoint Review of Systems General: Fatigue, Malaise HEENT: No Head Aches, No Visual Changes, No Eye Pain, No Ear Pain, No Dysphasia , No Sinus Congestion, No Post Nasal Drip, No Sore Throat, No Other Pulmonary: Dyspnea Cardiovascular: Edema, No: Chest Pain, Lt Headedness, Orthopnea, Other, Palpitations, Paroxysmal Noc. Dyspnea Objective-Cardiology Exam Last Set of Vital Signs Vital Signs 07/22/16 07/23/16 07/23/16 07/23/16 23:00 04:00 06:00 07:46 Temp 97.6 Pulse 80 Resp 14 B/P (MAP) 133/69 Pulse Ox 94 O2 Delivery NIV Bilevel O2 Flow Rate 50.00 FiO2 50 Capillary Refill : Less Than 3 Seconds I&O Intake and Output 07/23/16 00:00 Intake Total 9720 ml Output Total 2315 ml Balance 7405 ml Intake Oral 1800 ml IV Total 7920 ml Output Urine Total 2315 ml # Bowel Movements 19 General: Alert, Oriented X3, Cooperative, Severe Distress HEENT: Atraumatic, PERRLA Neck: Supple, No JVD, No Thyromegaly Lungs: Clear to Auscultation, Normal Air Movement Heart: Regular Rate, Normal S1, Normal S2, No Murmurs Abdomen: Normal Bowel Sounds, Soft, Other (mildly diffusely ttp) Extremities: No Edema Skin: No Rashes, No Significant Lesion Neuro: Normal Gait Psych/Mental Status: Mental Status NL, Mood NL Results Lab Laboratory Tests 07/23/16 03:52 A/P-Cardiology Admission Diagnosis Severe sepsis Cardiomegaly HTN Thrombocytopenia Assessment/Plan Severe sepsis- unknown etiology. BC x 2 positive for strep pneumoniae, receiving processing, managed by primary care physician Acute respiratory failure, on BiPAP at this time, continue to monitor Planning for KALIN once clinically more stable Volume overload with cardiomegaly and vascular congestion on CXR, no congestive heart failure, continue with IV fluid support at this time. Thrombocytopenia- history of ITP with splenectomy. Continue to monitor. 2.8 cm hypoechoic nodule within or around the pancreatic neck/body junction area , MRI nondiagnostic, followed by primary care physician DM Hypertension, had transient episode of hypotension, continue to monitor closely. ARF- continue to monitor renal function closely DM- management by PCP Chronic BLE weakness of unknown etiology- patient reports workup currently in progress with PCP as outpatient Low back pain Morbid obesity, probably underlying NABIL, recommend sleep study as outpatient. Right arm weakness and slurred speech- improved. CT Head revealed subtle hypodense nonspecific lesion within the left periventricular white matter in the posterior left frontal area.Better evaluation with MRI is suggested. H/O splenectomy, cholecystectomy, appendectomy Clinical Quality Measures DVT/VTE Risk/Contraindication: Risk Factor Score Per Nursin RFS Level Per Nursing on Admit: 3=High Stroke: Date of last known well: July 21, 2016 IRENE SUMMERS MD July 23, 2016 07:57
[2016-07-23] MEDS: NOREPINEPHRINE 4 MG in D5W 250 ML (IVPB) 250 ML IV SCH ×3 (07:58→20:48)
[2016-07-23] MEDS: cefTRIAXone INJECTION 2,000 MG in NS (IVPB) 50 ML IV SCH (08:32)
[2016-07-23] MEDS: MENTHOL/ZINC OXIDE (CALMOSEPTINE) 113 GM TUBE TOP SCH ×2 (09:33→20:44)
[2016-07-23] MEDS: DOCUSATE SODIUM 100 MG (COLACE) CAP PO SCH ×2 (09:33→20:16)
[2016-07-23] MEDS: LACTULOSE SYRUP 10GM/15ML (ENULOSE) 30ML UDC PO SCH ×2 (09:33→20:17)
--- NOTE | 2016-07-23 10:49 | Diagnostic Imaging Report ---
EXAMINATION: Portable erect AP chest obtained at 4:01h. INDICATION: Respiratory distress The appearance of the chest has worsened since 07/22/16 as the density in the left lung base has increased and the left heart border is now partially obscured. Most likely this abnormal density is secondary to atelectasis/infiltrate and/or fluid. The left upper lung and right lung are relatively clear. As noted on the prior exam the heart is enlarged and the central pulmonary vascularity is engorged. This does suggest that there is an element of pulmonary congestion present. The mediastinum is not widened and the osseous structures are intact. The right-sided PICC line seen previously is unchanged in position. IMPRESSION: The appearance of the chest has worsened since the prior study as there is greater involvement of the left lung base by atelectasis/infiltrate and fluid. There is persistent cardiomegaly and pulmonary congestion as well. A followup study would be recommend for continued evaluation. Dictated by: Dictated on workstation # [id number]
--- NOTE | 2016-07-23 11:13 | Progress Note (SOAP) ---
Subjective Subjective/Events-last exam Overall improving, Respiratory depression last night, requiring BIBAP, off now Review of Systems HEENT: No Head Aches, No Eye Pain, No Ear Pain, No Dysphasia, No Sinus Congestion, No Post Nasal Drip, No Sore Throat Pulmonary: Cough Cardiovascular: No: Chest Pain, Edema, Lt Headedness, Orthopnea, Palpitations, Paroxysmal Noc. Dyspnea Gastrointestinal: Nausea Genitourinary: No Dysuria, No Frequency, No Incontinence, No Hematuria, No Retention Musculoskeletal: No: arm pain, back pain, foot pain, hand pain, leg pain, neck pain, other, shoulder pain Neurological: Weakness Objective Exam Vital Signs Date Time Temp Pulse Resp B/P (MAP) Pulse Ox O2 Delivery O2 Flow Rate FiO2 07/23/16 08:15 95 4.00 07/23/16 07:53 98.3 High Flow N/C 4.00 07/23/16 07:46 80 14 94 50.00 07/23/16 07:00 82 07/23/16 06:00 85 13 133/69 96 NIV Bilevel 50.00 07/23/16 05:00 98 20 143/75 96 NIV Bilevel 50.00 07/23/16 04:41 94 15 177/93 96 NIV Bilevel 50.00 07/23/16 04:00 92 16 92 50.00 07/23/16 04:00 94 15 163/83 96 NIV Bilevel 50.00 07/23/16 04:00 95 50 07/23/16 03:00 90 27 121/53 96 NIV Bilevel 50.00 07/23/16 02:13 102 16 96 50.00 07/23/16 02:00 90 17 104/58 94 NIV Bilevel 50.00 07/23/16 01:20 88 07/23/16 01:00 90 23 99/56 94 NIV Bilevel 50.00 07/23/16 00:39 90 14 50.00 07/23/16 00:03 109 14 159/81 97 NIV Bilevel 50.00 07/23/16 00:00 95 50 07/22/16 23:45 96 15 94/54 91 NIV Bilevel 50.00 07/22/16 23:00 97.6 07/22/16 23:00 93 27 100/57 91 NIV Bilevel 50.00 07/22/16 22:45 NIV Bilevel 50.00 07/22/16 22:37 110 18 50.00 07/22/16 22:00 93 27 107/54 91 Nasal Cannula 2.00 07/22/16 21:00 90 24 112/62 92 Nasal Cannula 2.00 07/22/16 20:00 95 3.00 07/22/16 20:00 86 25 112/65 90 Nasal Cannula 2.00 07/22/16 19:00 89 07/22/16 19:00 88 25 119/64 91 Nasal Cannula 2.00 07/22/16 18:39 99.7 07/22/16 18:00 94 23 124/63 93 Nasal Cannula 2.00 07/22/16 17:00 90 13 113/58 93 Nasal Cannula 2.00 07/22/16 16:24 99.4 Nasal Cannula 2.00 07/22/16 16:24 95 2.00 07/22/16 16:00 87 23 107/56 94 Nasal Cannula 2.00 07/22/16 15:29 2 07/22/16 14:54 99.3 Nasal Cannula 2.00 07/22/16 14:00 91 24 113/59 92 Nasal Cannula 3.00 07/22/16 13:00 98 07/22/16 13:00 97 24 114/59 9 Nasal Cannula 3.00 07/22/16 12:08 94 2.00 07/22/16 12:00 92 11 141/75 95 Nasal Cannula 3.00 I & O 07/23/16 07:00 Intake Total 9420 ml Output Total 2575 ml Balance 6845 ml Capillary Refill : Less Than 3 Seconds General Appearance: Anxious, Mild Distress Neck: Normal Inspection Respiratory: Decreased Breath Sounds Cardiovascular: Regular Rate, Rhythm Gastrointestinal: non tender, soft Extremity: Non Tender Skin: Warm/Dry Results Lab Laboratory Tests 07/22/16 12:11: Glucometer 118H 07/22/16 14:10: Lactic Acid Level 2.27*H 07/22/16 17:08: Lactic Acid Level 1.74 07/22/16 17:14: Glucometer 111H 07/23/16 03:52: White Blood Count 46.5*H, Red Blood Count 3.85L, Hemoglobin 11.6, Hematocrit 36 , Mean Corpuscular Volume 93, Mean Corpuscular Hemoglobin 30, Mean Corpuscular Hemoglobin Concent 33, Red Cell Distribution Width 16.4H, Platelet Count 42L, Mean Platelet Volume , Sodium Level 139, Potassium Level 4.4, Chloride Level 112H, Carbon Dioxide Level 19L, Anion Gap 8, Blood Urea Nitrogen 34H, Creatinine 1.14, Estimat Glomerular Filtration Rate 50, BUN/Creatinine Ratio 30 , Glucose Level 136H, Lactic Acid Level 1.38, Calcium Level 7.9L, Phosphorus Level 2.9, Magnesium Level 1.8 07/23/16 04:55: Blood Gas Puncture Site RT RADIAL, Blood Gas Patient Temperature 98.9, Arterial Blood pH 7.28*L, Arterial Blood Partial Pressure CO2 45, Arterial Blood Partial Pressure O2 100H, Arterial Blood HCO3 20L, Arterial Blood Total CO2 21.3, Arterial Blood Oxygen Saturation 98, Arterial Blood Base Excess -5.6L, Sina Test YES-POS, Blood Gas Ventilator Setting NO, Blood Gas Inspired Oxygen 50% Microbiology 07/21/16 Blood Culture - Preliminary, Resulted Streptococcus Pneumoniae 07/21/16 Influenza Types A,B Antigen (JEISON) - Final, Complete Assessment/Plan Assessment/Plan Assess & Plan/Chief Complaint Lady with possible post splenectomy sepsis. Pneumococcus in blood culture. Profound leukocytosis. Portal hypertension of unknown etiology. MRI pending. Will require endoscopic ultrasound with possible FNA regarding the pancreatic head abnormality/lesion. MRI pending 07/23/16: Pneumococcal sepsis, post-splenectomy status. MRI confirming portal hypertension. EUS as an outpatient Final Diagnosis POST-SPLENECTOMY SEPSIS Clinical Quality Measures DVT/VTE Risk/Contraindication: Risk Factor Score Per Nursin RFS Level Per Nursing on Admit: 3=High Stroke: Date of last known well: July 21, 2016 FREDIS CADENA MD July 23, 2016 11:13 am
[2016-07-23] MEDS ORDERED: SCOPOLAMINE 1.5 MG (TRANSDERM-SCOP) PATCH TOP SCH (11:15)
[2016-07-23] MEDS: IBUPROFEN TABLET 200 MG TAB PO PRN ×2 (11:30→20:44)
[2016-07-23] MEDS: GABAPENTIN 300 MG (NEURONTIN) CAP PO SCH ×3 (11:34→20:44)
--- NOTE | 2016-07-23 11:49 | Physical Therapy Evaluation ---
PT Evaluation-General Medical Diagnosis Admission Date July 21, 2016 at 11:53 Medical Diagnosis: sepsis Onset Date: July 21, 2016 Therapy Diagnosis Therapy Diagnosis: weakness; abn gait Height/Weight Height (Feet): 5 Height (Inches): 7.00 Weight (Pounds): 315 Weight (Ounces): 7.0 Precautions Precautions/Isolations: Fall Prevention, Standard Precautions Referral Physician: Marilynn Reason for Referral: Evaluation/Treatment Medical History Pertinent Medical History: DM, HTN, Neuropathy Current History Pt admitted with severe sepsis and possibly polynephritis Social History Home: Single Level Current Living Status: Spouse Prior/Core FIM Prior Level of Function Functional [place] Measure 0=Not Assessed/NA 4=Minimal Assistance 1=Total Assistance 5=Supervision or Setup 2=Maximal Assistance 6=Modified [place] 3=Moderate Assistance 7=Complete [place] Pt is indep and works. PT Evaluation-Current Subjective "I'm nauseated." "I'm just so sleepy." Agrees to try to get up to the chair. Pain Numeric Pain Scale: 7 Location: Lower Location Body Site: Back Pain Description: Ache, Stabbing Comment: Reports she hurt it yesterday transferring; pain meds given Objective Patient Orientation: Person, Place, Time, Situation Problem Solving: Fair Attachments: Oxygen, Nichole Catheter, IV ROM/Strength ROM Lower Extremities WNL Strenght Lower Extremities WNL Integumentary/Posture Integumentary Intact Bowel Incontinence: No Bladder Incontinence: Nichole Cath Posture normal and symmetrical Neuromuscular (Tone, Coordination, Reflexes) No noted functional deficits Sensory Vision: Functional Hearing: Functional Hand Dominance: Right Sensation Right Lower Extremit: Intact Sensation Left Lower Extremity: Intact Transfers Functional [place] Measure 0=Not Assessed/NA 4=Minimal Assistance 1=Total Assistance 5=Supervision or Setup 2=Maximal Assistance 6=Modified [place] 3=Moderate Assistance 7=Complete [place] Transfers (B, C, W/C) (FIM): 3 Supine to/from Sit: 3 (mod assist to raise trunk and assist with legs to sit up ) Sit to/from Stand: 4 (min assist to come to a stand) Pt transferred sup to sit and then SPT bed to chair. Stood once with min assist but unsafe to attempt taking steps. Used FWW for SPT bed to chair with min assist for the transfer due to weakness and safety concerns. Pt up in chair post treatment. Balance Sitting Static: Good Sitting Dynamic: Good Standing Static: Fair Standing Dynamic: Fair Treatment Seated LE ther ex to promote circulation, deep breathing and general functional system mobility: AP, LAQ, hip flex and hip abduction x 15 each bilaterally. Assessment/Needs Pt presents very groggy and complaining of nausea and pain. Difficult to arouse and keep aroused; however she was cooperative a participatory in transferring up to the chair. Pt will benefit from skilled PT intervention to promote functional mobiltiy and strength so she can return home when medically stable. History: DM, HTN, neuropathy--all may affect her ability to heal and return to [facility]; Exam: Decreased ability to transfer, decreased balance, decreased ability to ambulate, decreased alertness; presentation is unstable at this time as she remains in ICU being closely monitored medically. Evaluation of high complexity. Rehab Potential: Good PT Prison Goals Finance Vice President Goals PT Prison Goals Time Frame: July 28, 2016 Transfers (B,C,W/C) (FIM): 6 Gait (FIM): 6 PT Plan Problem List Problem List: Activity Tolerance, Functional Strength, Safety, Balance, Gait, Transfer, Bed Mobility Treatment/Plan Treatment Plan: Continue Plan of Care Treatment Plan: Bed Mobility, Education, Functional Activity Unique, Functional Strength, Gait, Safety, Therapeutic Exercise, Transfers Treatment Duration: July 28, 2016 # of days/week 5-6 Visits Per Week: 5-6 Pt/Family Agrees w/Plan: Yes Safety Risks/Education Patient Education: Safety Issues Teaching Recipient: Patient Teaching Methods: Demonstration, Discussion Response to Teaching: Reinforcement Needed Time/GCodes Time In: 1110 Time Out: 1140 Total Billed Treatment Time: 30 Total Billed Treatment visit EV 15 EX 15 ARNAUD MUNIZ PT July 23, 2016 11:49
--- NOTE | 2016-07-23 11:54 | Progress Note-Hospitalist ---
Progress Note HPI/CC on Admission CC: Severe sepsis of unknown source HPI: This is a 50-year-old white female clinic patient of Dr. Torres at [facility] the presents to the emergency room after waking up at 4 o'clock this morning trying to get to the bathroom and was not feeling well. She was doing well until the night before last when she felt her heart beating in her head but then it actually improved enough for her to go to work yesterday and she finished the day although very tired. She doesn't report a fever or chills at home until this morning and she also told me she was just treated for UTI and completed antibiotics 1 month ago. 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 She has been given the aggressive IV fluid resuscitation for severe sepsis in the emergency room but she does have vascular congestion on chest x-ray so we'll consult cardiology for volume overload with hypertension from severe sepsis. Her platelet count is 38,000 as forewarned by her that she has abnormal complete blood count levels due to splenectomy but we'll consult Dr. Wesley due to ITP history. Critical illness will require pulmonary critical care specialty consultation Dr. Wilkinson will see her in the near future. She is placed on empiric antibiotic of vancomycin and Zosyn and will be monitored closely in the ICU for any need of pressor therapy and/or additional multisystem organ failure with intubation that could result from volume overload. She reports the back pain has been the most severe and does report nausea and loss of appetite the last several days. Even though the urinalysis appeared to be normal I suspect pyelonephritis with bacteremia due to recent UTI 1 month ago. Progress Notes/Assess & Plan Date Seen 07/23/16 Admission Dx/Process Assessment: Severe sepsis of unknown source but I suspect pyelonephritis and bacteremia in need of aggressive IV fluid resuscitation and/or pressor therapy in addition to empiric antibiotics of Zosyn and vancomycin 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 consulting hematology Volume overload and vascular congestion on chest x-ray will consult cardiology due to the fact of high volume fluid resuscitation will place her at risk for congestive heart failure Diabetes mellitus Morbid obesity likely obstructive sleep apnea undiagnosed Leukocytosis Thrombocytopenia with to history of splenectomy Diagonsis/Assessment & Plan Dr. Srivastava and I discussed Pneumovax and H flu vaccines due to splenectomy since she has never had either one and will perform that prior to DC. Chart Review: WBC down from 57 to 46, Plts 42k, ABG 7.28/45/100, Creat 1.14, Lactic acid is now normal Dr. 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 Pt is on 4L and at 92%. Pt Creat was 1.14. Pt is on Rocephin [address] Wilkinson advanced pt diet. Pt was in her chair for one hour yesterday. Pt received Zofran. Patient Interview: Physical exam was stable. Pt was told that she is trending better because of her medication. Pt cannot take deep breaths. Pt was told this recovery may take a while. Pt states she has nausea. Pt states she received nausea meds but they haven't helped. Plan: PT Scopolamine patch Scribed by Geovany Stern under the direct supervision of Dr. Lucas. Creat improved since DC Vanc Abdominal Ultrasound and CT showed cirrhosis and will need EUS to evaluate for nodules on liver CXR LLL atelectasis has progressed a bit on CXR today but likely due to Dilaudid oversedation effect and poor excursion Reviewed cardiology and pulmonology consult BCx + for Strep Pneumoniae No fever, vital signs stable, pleasant, much improved, family at the bedside, slightly sedated but awakens easily Regular rate and rhythm, clear to all station bilaterally diminished in the bases No edema Laboratory Tests 07/23/16 03:52 Assessment: Severe sepsis with Strep pneumoniae bacteremia s/p aggressive IV fluid resuscitation in addition high dose Rocephin s/p DC empiric broad spectrum Zosyn and vancomycin due to ARF and culture results Respiratory insufficiency following Dilaudid 2mg IV given in ICU last night requiring biPAP until this morning 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 Volume overload and vascular congestion on chest x-ray on admit, cardiology consulted due to the fact of high volume fluid resuscitation will place her at risk for congestive heart failure Diabetes mellitus Morbid obesity likely obstructive sleep apnea undiagnosed Leukocytosis but improved clinical picture Thrombocytopenia with to history of splenectomy s/p New ARF resolved now Plan: Severe sepsis protocol s/p high volume resuscitation required due to hypotension Cardiology, pulmonology with critical care, hematology consultations Rocephin antibiotics Monitor labs SCDs for DVT prophylaxis Supportive care Encourage efforts to ambulate Monitor creat OOB in chair Hold narcotics Very complex case and improved clinical picture except for sedation NUHA LUCAS DO July 23, 2016 11:54
--- NOTE | 2016-07-23 12:01 | Occupational Therapy Eval ---
OT Evaluation-General/PLF Medical Diagnosis Admission Date July 21, 2016 at 11:53 Medical Diagnosis: sepsis Onset Date: July 21, 2016 Therapy Diagnosis Therapy Diagnosis: decreased self care skills Height/Weight Height (Feet): 5 Height (Inches): 7.00 Weight (Pounds): 315 Weight (Ounces): 7.0 Precautions Precautions/Isolations: Fall Prevention, Standard Precautions Safety Interventions: None Referral Physician: Marilynn Medical History Pertinent Medical History: DM, HTN, Neuropathy Additional Medical History splenectomy, chronic constipation, Reviewed History: Yes Social History Home: Single Level Current Living Status: Spouse Entry Into Home: Stairs Without Railing Steps Into Home: 2 ADL-Prior Level of Function ADL PLOF Comments Pt reports being independent with basic self care and mobility. Pt uses cane as needed recently secondary to LE weakness. 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 DME/Equipment: Shower built in shower seat Drive Self: Yes OT Current Status Subjective Pt sitting in chair with eyes closed and spouse present. Pt states she is very tired this morning. Pt agrees to evaluation. Reports 4/10 low back pain. Mental Status/Objective Patient Orientation: Person, Place Attachments: Nichole Catheter, IV, Oxygen Current Glasses/Contacts: Yes Hearing Aids: No Dentures/Partials: No Hand Dominance: Right Upper Extremity ROM Grossly WFL Upper Extremity Coordination Fair Upper Extremity Strength 3/5 proximally grossly 4-/5 distally ADL-Treatment ADL-Current Pt sitting in chair, opens eyes briefly, but unable to maintain. Pt answered questions, but requires increased time to respond. Pt participated in UE assessment while seated in chair. Pt demonstrates impaired bilateral UE strength. Unable to assess ADLs at this time secondary to fatigue. Pt sitting in chair with needs met and spouse present after session. Functional [place] Measure 0=Not Assessed/NA 4=Minimal Assistance 1=Total Assistance 5=Supervision or Setup 2=Maximal Assistance 6=Modified [place] 3=Moderate Assistance 7=Complete IndependenceIRFPAI Quality Coding Scale 6 Independent with activity with or without an assistive device 5 Patient requires set up or clean up by helper. Patient completes activity by themselves 4 Supervision or touching assist (CGA). [place] provide cues , steadying assist 3 The helper provides less than half the effort to complete the activity 2 The helper provides more than half the effort to complete the activity 1 Dependent. The helper does all the effort to complete an activity 7 Patient refused to complete or attempt activity 9 The patient did not perform the activity before the current illness or injury 88 Not attempted due to Medical conditions or safety concerns OT Short Term Goals Short Term Goals 1=Demonstrate adherence to instructed precautions during ADL tasks. 2=Patient will verbalize/demonstrate understanding of assistive devices/ modifications for ADL. 3=Patient will improve strength/tolerance for activity to enable patient to perform ADL's. OT Mcfp Goals Mcfp Goals Time Frame: August 06, 2016 Eating (FIM): 6 Grooming(FIM): 6 Upper Body Dressing(FIM): 5 Lower Body Dressing(FIM): 5 Toilet/Commode Transfer(FIM): 6 Additional Goals: 1-Demonstrate ADL Tasks, 2-Verbalize Understanding, 3- ImproveStrength/Unique 1=Demonstrate adherence to instructed precautions during ADL tasks. 2=Patient will verbalize/demonstrate understanding of assistive devices/ modifications for ADL. 3=Patient will improve strength/tolerance for activity to enable patient to perform ADL's. OT Education/Plan Problem List/Assessment Assessment: Decreased Activ Tolerance, Decreased UE Strength, Dependent Transfers, Impaired Self-Care Skills Pt to benefit from skilled OT intervention for ADL training, transfers, strengthening, and home safety education to maximize level of function and allow safe return home. Discharge Recommendations Plan/Recommendations: Continue POC Treatment Plan/Plan of Care Treatment,Training & Education: Yes Patient would benefit from OT for education, treatment and training to promote independence in ADL's, mobility, safety and/or upper extremity function for ADL' s. Plan of Care: ADL Retraining, Functional Mobility, UE Funct Exercise/Act Treatment Duration: August 06, 2016 # of days/week 5 Visits Per Week: 5 Agreement: Yes Rehab Potential: Good Time/GCodes Start Time: 11:35 Stop Time: 11:45 Total Time Billed (hr/min): 10 Billed Treatment Time 1 visit, KAREN(10minutes) MOIZ GOULD OT July 23, 2016 12:01
[2016-07-23] MEDS: ACETAMINOPHEN 500 MG TAB (TYLENOL) PO PRN (16:33)
[2016-07-23] MEDS ORDERED: ONDANSETRON 4 MG/2 ML (SDV) Z0FRAN IV ONE (22:45)
[2016-07-23] MEDS ORDERED: PROCHLORPERAZINE 25 MG (COMPAZINE) SUPP PR ONE ×2 (22:45)
[2016-07-23] MEDS ORDERED: PROCHLORPERAZINE 10 MG/2ML INJ (COMPAZINE) ONE (22:56)
[2016-07-23] MEDS ORDERED: PROCHLORPERAZINE 10 MG/2ML INJ (COMPAZINE) IV ONE ×2 (23:15)
[2016-07-24] VITALS (25 sets, daily range): BP systolic 103–174; BP diastolic 60–95
[2016-07-24] MEDS: LACTATED RINGERS 1,000 ML IV SCH ×4 (00:35→20:08)
[2016-07-24 03:58] LABS: MEAN CORPUSCULAR HEMOGLOBIN 30 PG (25-34); MEAN CORPUSCULAR HGB CONC 32 G/DL (32-36); MEAN CORPUSCULAR VOLUME 93 FL (80-99); RED BLOOD COUNT 3.83 10^6/uL (4.35-5.85); RED CELL DISTRIBUTION WIDTH 16.6 % (10.0-14.5)
[2016-07-24 04:18] LABS: PLATELET COUNT 33 10^3/uL (130-400); WHITE BLOOD COUNT 34.8 10^3/uL (4.3-11.0)
[2016-07-24 04:20] LABS: ANION GAP 7 MMOL/L (5-14); BLOOD UREA NITROGEN 27 MG/DL (7-18); BUN/CREATININE RATIO 37; CARBON DIOXIDE 24 MMOL/L (21-32); CHLORIDE 108 MMOL/L (98-107); CREATININE SERUM 0.73 MG/DL (0.60-1.30); GFR ESTIMATED > 60; GLUCOSE 131 MG/DL (70-105); MAGNESIUM 1.9 MG/DL (1.8-2.4); PHOSPHORUS 2.7 MG/DL (2.3-4.7); POTASSIUM 4.3 MMOL/L (3.6-5.0); SODIUM 139 MMOL/L (135-145)
[2016-07-24] MEDS: NOREPINEPHRINE 4 MG in D5W 250 ML (IVPB) 250 ML IV SCH ×4 (04:42→23:28)
[2016-07-24] MEDS: POTASSIUM CL 10MEQ/50ML IVPB 50 ML IV SCH (04:48)
[2016-07-24] MEDS: MAGNESIUM 1 GM/100 ML IVPB 100 ML IV SCH (04:48)
[2016-07-24] MEDS: KCL 20 MEQ TAB (K-DUR) PO SCH (04:49)
[2016-07-24] MEDS: IBUPROFEN TABLET 200 MG TAB PO PRN ×3 (05:15→21:28)
--- NOTE | 2016-07-24 08:38 | Cardiology Progress Note ---
Subjective Subjective/Events-last exam patient is laying down in bed, feeling better, breathing better, still having generalized fatigue and lethargy, was having headache earlier but reporting improvement at this time. Asking for food. Review of Systems General: No Chills, No Night Sweats, Fatigue, Malaise, No Appetite, No Other HEENT: No Head Aches, No Visual Changes, No Eye Pain, No Ear Pain, No Dysphasia , No Sinus Congestion, No Post Nasal Drip, No Sore Throat, No Other Pulmonary: Dyspnea, No Cough, No Pleuritic Chest Pain, No Other Cardiovascular: No: Chest Pain, Edema, Lt Headedness, Orthopnea, Other, Palpitations, Paroxysmal Noc. Dyspnea Objective-Cardiology Exam Last Set of Vital Signs Vital Signs 07/23/16 07/24/16 07/24/16 07/24/16 07/24/16 04:00 00:35 06:00 07:10 07:23 Temp 98.4 Pulse 78 Resp 17 B/P (MAP) 138/68 Pulse Ox 94 O2 Delivery High Flow N/C O2 Flow Rate 4.00 FiO2 50 Capillary Refill : Less Than 3 Seconds I&O Intake and Output 07/24/16 00:00 Intake Total 5550 ml Output Total 1450 ml Balance 4100 ml Intake Oral 500 ml IV Total 5050 ml Output Urine Total 1450 ml # Bowel Movements 3 # Emes[place] 2 General: Alert, Oriented X3, Cooperative, Severe Distress HEENT: Atraumatic, PERRLA Neck: Supple, No JVD, No Thyromegaly Lungs: Clear to Auscultation, Normal Air Movement Heart: Regular Rate, Normal S1, Normal S2, No Murmurs Abdomen: Normal Bowel Sounds, Soft, Other (mildly diffusely ttp) Extremities: No Edema Skin: No Rashes, No Significant Lesion Neuro: Normal Gait Psych/Mental Status: Mental Status NL, Mood NL Results Lab Laboratory Tests 07/24/16 03:45 A/P-Cardiology Admission Diagnosis Severe sepsis Cardiomegaly HTN Thrombocytopenia Assessment/Plan Severe sepsis, BC x 2 positive for strep pneumoniae, improving today, continue with antibiotics and monitor Acute respiratory failure, improving, on nasal cannula at this time. Continue to monitor Planning for KALIN once clinically more stable, probably on Tuesday Volume overload with cardiomegaly and vascular congestion on CXR, no congestive heart failure, continue with IV fluid support at this time. Thrombocytopenia- history of ITP with splenectomy. Continue to monitor. 2.8 cm hypoechoic nodule within or around the pancreatic neck/body junction area , MRI nondiagnostic, followed by primary care physician DM Hypertension, had transient episode of hypotension, continue to monitor closely. ARF- continue to monitor renal function closely DM- management by PCP Chronic BLE weakness of unknown etiology- patient reports workup currently in progress with PCP as outpatient Low back pain Morbid obesity, probably underlying NABIL, recommend sleep study as outpatient. Right arm weakness and slurred speech- improved. CT Head revealed subtle hypodense nonspecific lesion within the left periventricular white matter in the posterior left frontal area.Better evaluation with MRI is suggested. H/O splenectomy, cholecystectomy, appendectomy Clinical Quality Measures DVT/VTE Risk/Contraindication: Risk Factor Score Per Nursin RFS Level Per Nursing on Admit: 3=High Stroke: Date of last known well: July 21, 2016 IRENE SUMMERS MD July 24, 2016 08:38
--- NOTE | 2016-07-24 09:55 | Progress Note-Hospitalist ---
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 Torres at [facility] the presents to the emergency room after waking up at 4 o'clock this morning trying to get to the bathroom and was not feeling well. She was doing well until the night before last when she felt her heart beating in her head but then it actually improved enough for her to go to work yesterday and she finished the day although very tired. She doesn't report a fever or chills at home until this morning and she also told me she was just treated for UTI and completed antibiotics 1 month ago. 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 She has been given the aggressive IV fluid resuscitation for severe sepsis in the emergency room but she does have vascular congestion on chest x-ray so we'll consult cardiology for volume overload with hypertension from severe sepsis. Her platelet count is 38,000 as forewarned by her that she has abnormal complete blood count levels due to splenectomy but we'll consult Dr. Wesley due to ITP history. Critical illness will require pulmonary critical care specialty consultation Dr. Wlikinson will see her in the near future. She is placed on empiric antibiotic of vancomycin and Zosyn and will be monitored closely in the ICU for any need of pressor therapy and/or additional multisystem organ failure with intubation that could result from volume overload. She reports the back pain has been the most severe and does report nausea and loss of appetite the last several days. Even though the urinalysis appeared to be normal I suspect pyelonephritis with bacteremia due to recent UTI 1 month ago. Date Seen 07/24/16 Subjective/Events-last exam patient is awake and alert and having diarrhea. She is incontinent of stool. Blood pressure pulse vitals are stable. Chest x-ray shows increased vascular redistribution and hypoventilation. O2 sats are in the 90s and she is on 5 L nasal cannula. Review of Systems Gastrointestinal: Diarrhea Genitourinary: Incontinence Neurological: Weakness Objective Exam Vital Signs Vital Sign - Last 12Hours 07/21/16 07/21/16 07/22/16 09:44 13:30 15:29 Temp 100.9 Pulse 113 Resp 19 B/P (MAP) 86/52 Pulse Ox 94 O2 Delivery Room Air O2 Flow Rate 2.00 FiO2 2 Capillary Refill : Less Than 3 Seconds General Appearance: Mild Distress, Obese HEENT: Normal ENT Inspection Neck: Supple Respiratory: Lungs Clear, Decreased Breath Sounds Cardiovascular: Regular Rate, Rhythm, Other (distant) Gastrointestinal: Normal Bowel Sounds, Non Tender, Soft Rectal: Deferred Results/Procedures Lab Laboratory Tests 07/24/16 03:45 Assessment/Plan Assessment and Plan Assess & Plan/Chief Complaint Assessment: Severe sepsis with Strep pneumoniae bacteremia s/p aggressive IV fluid resuscitation in addition high dose Rocephin I'll empiric broad spectrum Zosyn and vancomycin due to ARF and culture results Respiratory insufficiency following Dilaudid 2mg IV given in ICU last night requiring biPAP until this morning-most likely component of fluid overload at this time 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 Volume overload and vascular congestion on chest x-ray on admit, cardiology consulted due to the fact of high volume fluid resuscitation will place her at risk for congestive heart failure-we'll give Lasix 1 dose and decrease IV fluid rate to 75 mL an hour-high risk for ARDS Diabetes mellitus Morbid obesity likely obstructive sleep apnea undiagnosed Leukocytosis-slowly improving but improved clinical picture Thrombocytopenia with history of splenectomy ARF -resolved now diarrhea-likely secondary to Colace and lactulose will hold for now check for C. difficile if necessary in the future Weakness we'll consult PT TAMMIE JOSE MD July 24, 2016 09:55
[2016-07-24] MEDS ORDERED: FUROSEMIDE 40 MG/4 ML INJ (LASIX) IVP NR (10:00)
[2016-07-24] MEDS: GABAPENTIN 300 MG (NEURONTIN) CAP PO SCH ×3 (10:06→20:07)
[2016-07-24] MEDS: cefTRIAXone INJECTION 2,000 MG in NS (IVPB) 50 ML IV SCH (10:06)
[2016-07-24] MEDS: MENTHOL/ZINC OXIDE (CALMOSEPTINE) 113 GM TUBE TOP SCH ×2 (10:06→20:08)
--- NOTE | 2016-07-24 10:48 | Diagnostic Imaging Report ---
INDICATION: Sepsis Portable chest shows stable heart size and vascularity compared to 07/23/16 study. There is some left basilar atelectasis with improved aeration of the left lung base since 07/23/16. Right lung is clear. IMPRESSION: Improving chest with improved aeration of the left lower lobe since the prior study. Dictated by: Dictated on workstation # [id number]
--- NOTE | 2016-07-24 11:16 | Physical Therapy Daily Note ---
PT Daily Note-Current Subjective When first attempting treatment patient agreed to sit in bedside chair. She then realized that she needed cleaned up. I reattempted later and patient had had a pain pill and stated that she was very drowsy and did not think she could get up. Patient did agree to bed exercises. Transfers Functional [place] Measure 0=Not Assessed/NA 4=Minimal Assistance 1=Total Assistance 5=Supervision or Setup 2=Maximal Assistance 6=Modified [place] 3=Moderate Assistance 7=Complete IndependenceIRFPAI Quality Coding Scale 6 Independent with activity with or without an assistive device 5 Patient requires set up or clean up by helper. Patient completes activity by themselves 4 Supervision or touching assist (CGA). [place] provide cues , steadying assist 3 The helper provides less than half the effort to complete the activity 2 The helper provides more than half the effort to complete the activity 1 Dependent. The helper does all the effort to complete an activity 7 Patient refused to complete or attempt activity 9 The patient did not perform the activity before the current illness or injury 88 Not attempted due to Medical conditions or safety concerns Exercises Supine Ex: LE Protocol Supine Reps: 15 Assessment Current Status: Good Progress Patient did well with all exercises. PT Paint Spray Tender Goals Paint Spray Tender Goals PT Paint Spray Tender Goals Time Frame: July 28, 2016 Transfers (B,C,W/C) (FIM): 6 Gait (FIM): 6 PT Plan Treatment/Plan Treatment Plan: Continue Plan of Care Treatment Plan: Bed Mobility, Education, Functional Activity Unique, Functional Strength, Gait, Safety, Therapeutic Exercise, Transfers Treatment Duration: July 28, 2016 Visits Per Week: 5-6 Time/GCodes Time In: 1010 Time Out: 1020 Total Billed Treatment Time: 10' Total Billed Treatment 1, EX x 10' G Codes Necessary: GUILLE Haro PT July 24, 2016 11:16
--- NOTE | 2016-07-24 14:39 | Progress Note ---
Subjective Subjective/Events-last exam Patient wanting food. Family states she's more alert. WBC improving, Thrombocytopenia Some diarrhea. No abdominal pain. Denies any n/v fever sweats chills shortness of breath or chest pain at this time. Objective Exam Vital Signs Date Time Temp Pulse Resp B/P (MAP) Pulse Ox O2 Delivery O2 Flow Rate FiO2 07/24/16 13:00 73 14 139/66 93 High Flow N/C 5.00 07/24/16 12:56 76 07/24/16 12:00 75 25 145/70 94 High Flow N/C 5.00 07/24/16 12:00 94 5.00 07/24/16 11:00 74 29 152/75 94 High Flow N/C 5.00 07/24/16 10:00 77 20 147/79 93 High Flow N/C 5.00 07/24/16 09:00 80 20 153/78 94 High Flow N/C 5.00 07/24/16 08:00 98.0 High Flow N/C 5.00 07/24/16 08:00 93 5.00 07/24/16 08:00 77 19 149/76 95 High Flow N/C 5.00 07/24/16 07:23 4.00 07/24/16 07:10 78 07/24/16 07:00 80 19 152/71 93 High Flow N/C 5.00 07/24/16 06:00 79 17 138/68 94 High Flow N/C 5.00 07/24/16 05:00 79 29 150/77 93 High Flow N/C 5.00 07/24/16 04:00 92 4.00 07/24/16 04:00 80 23 132/75 92 High Flow N/C 5.00 07/24/16 03:00 85 28 123/60 89 High Flow N/C 5.00 07/24/16 02:00 79 19 103/64 91 High Flow N/C 5.00 07/24/16 01:00 77 07/24/16 01:00 82 16 132/80 90 High Flow N/C 4.00 07/24/16 00:35 98.4 77 16 125/64 92 High Flow N/C 4.00 07/24/16 00:00 80 20 125/64 91 High Flow N/C 4.00 07/24/16 00:00 92 4.00 07/23/16 23:00 74 20 133/62 93 High Flow N/C 4.00 07/23/16 22:00 76 18 159/88 92 High Flow N/C 4.00 07/23/16 21:00 79 18 154/81 93 High Flow N/C 4.00 07/23/16 20:12 98.3 78 18 147/74 91 High Flow N/C 4.00 07/23/16 20:00 92 4.00 07/23/16 20:00 83 20 147/74 92 High Flow N/C 4.00 07/23/16 19:28 4.00 07/23/16 19:00 81 07/23/16 19:00 80 15 146/74 92 High Flow N/C 4.00 07/23/16 18:00 86 24 143/73 94 Nasal Cannula 4.00 07/23/16 17:00 82 19 139/72 92 Nasal Cannula 4.00 07/23/16 16:15 93 4.00 07/23/16 16:00 98.7 Nasal Cannula 4.00 07/23/16 16:00 80 19 155/82 92 Nasal Cannula 4.00 07/23/16 15:00 80 18 154/90 92 Nasal Cannula 4.00 I & O 07/24/16 06:59 Intake Total 4800 ml Output Total 1625 ml Balance 3175 ml Capillary Refill : Less Than 3 Seconds General Appearance: No Apparent Distress (laying in bed), Obese HEENT: Normal ENT Inspection Neck: Supple Respiratory: No Accessory Muscle Use, No Respiratory Distress, Decreased Breath Sounds Cardiovascular: Regular Rate, Rhythm, Other (distant) Gastrointestinal: non tender, soft Extremity: Non Tender Neurologic/Psychiatric: Alert, Oriented x3 Skin: Warm/Dry Lymphatic: No Adenopathy Results Lab Laboratory Tests 07/23/16 15:50: Glucometer 126H 07/23/16 23:24: Glucometer 115H 07/24/16 03:45: White Blood Count 34.8*H, Red Blood Count 3.83L, Hemoglobin 11.5, Hematocrit 36 , Mean Corpuscular Volume 93, Mean Corpuscular Hemoglobin 30, Mean Corpuscular Hemoglobin Concent 32, Red Cell Distribution Width 16.6H, Platelet Count 33*L, Mean Platelet Volume , Sodium Level 139, Potassium Level 4.3, Chloride Level 108H, Carbon Dioxide Level 24, Anion Gap 7, Blood Urea Nitrogen 27H, Creatinine 0.73, Estimat Glomerular Filtration Rate > 60, BUN/Creatinine Ratio 37, Glucose Level 131H, Lactic Acid Level 1.10, Calcium Level 8.0L, Phosphorus Level 2.7, Magnesium Level 1.9 Microbiology 07/21/16 Blood Culture - Preliminary, Resulted Streptococcus Pneumoniae 07/21/16 Influenza Types A,B Antigen (JEISON) - Final, Complete Assessment/Plan Assessment/Plan Assessment/Plan Pneumococcal sepsis, post-splenectomy status. MRI confirming portal hypertension. EUS as an outpatient for possible pancreatic head mass Leukocytosis continuing to improve Discussed vaccine compliance with patient and family. Medical management Clinical Quality Measures DVT/VTE Risk/Contraindication: Risk Factor Score Per Nursin RFS Level Per Nursing on Admit: 3=High Stroke: Date of last known well: July 21, 2016 NEIL AJ DO July 24, 2016 14:39
[2016-07-24] MEDS: ACYCLOVIR 400 MG TABLET (ZOVIRAX) PO SCH ×2 (18:24→21:25)
[2016-07-24] MEDS: ONDANSETRON 4 MG/2 ML (SDV) Z0FRAN IV PRN (22:14)
[2016-07-25] VITALS (24 sets, daily range): BP systolic 105–184; BP diastolic 55–97
[2016-07-25 04:09] LABS: MEAN PLATELET VOLUME 13.1 FL (7.4-10.4); RED BLOOD COUNT 3.94 10^6/uL (4.35-5.85); RED CELL DISTRIBUTION WIDTH 16.5 % (10.0-14.5); WHITE BLOOD COUNT 24.3 10^3/uL (4.3-11.0)
[2016-07-25 04:27] LABS: ANION GAP 9 MMOL/L (5-14); BLOOD UREA NITROGEN 19 MG/DL (7-18); BUN/CREATININE RATIO 27; CALCIUM 8.2 MG/DL (8.5-10.1); CARBON DIOXIDE 27 MMOL/L (21-32); CHLORIDE 104 MMOL/L (98-107); CREATININE SERUM 0.71 MG/DL (0.60-1.30); GFR ESTIMATED > 60; GLUCOSE 140 MG/DL (70-105); MAGNESIUM 1.8 MG/DL (1.8-2.4); POTASSIUM 4.5 MMOL/L (3.6-5.0); SODIUM 140 MMOL/L (135-145)
[2016-07-25] MEDS: POTASSIUM CL 10MEQ/50ML IVPB 50 ML IV SCH (04:36)
[2016-07-25] MEDS: MAGNESIUM 1 GM/100 ML IVPB 100 ML IV SCH (04:37)
[2016-07-25] MEDS: KCL 20 MEQ TAB (K-DUR) PO SCH (04:37)
[2016-07-25] MEDS: NOREPINEPHRINE 4 MG in D5W 250 ML (IVPB) 250 ML IV SCH ×3 (06:29→19:43)
[2016-07-25] MEDS: LACTATED RINGERS 1,000 ML IV SCH ×2 (07:51→22:53)
[2016-07-25] MEDS: ONDANSETRON 4 MG/2 ML (SDV) Z0FRAN IV PRN ×2 (07:51→14:16)
[2016-07-25] MEDS: cefTRIAXone INJECTION 2,000 MG in NS (IVPB) 50 ML IV SCH (07:51)
--- NOTE | 2016-07-25 09:32 | Diagnostic Imaging Report ---
INDICATION: Sepsis. FINDINGS: Upright portable chest shows cardiomegaly with normal vascularity. There is atelectasis and/or infiltrate in the right middle lobe. Left lung is clear. There may be a small right-sided effusion. IMPRESSION: Since 07/24/2016, there has developed some atelectasis or infiltrate in the right middle lobe. There may be a small right-sided effusion. Dictated by: Dictated on workstation # [id number]
[2016-07-25] MEDS: ACYCLOVIR 400 MG TABLET (ZOVIRAX) PO SCH ×5 (09:36→22:11)
[2016-07-25] MEDS ORDERED: IOHEXOL 350 MG/ML 100 ML (OMNIPAQUE 350) VIAL IV ONE (09:45)
[2016-07-25] MEDS ORDERED: NS 100 ML (IVPB) BAG IV ONE (09:45)
--- NOTE | 2016-07-25 09:46 | Progress Note-Hospitalist ---
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 Torres at [facility] the presents to the emergency room after waking up at 4 o'clock this morning trying to get to the bathroom and was not feeling well. She was doing well until the night before last when she felt her heart beating in her head but then it actually improved enough for her to go to work yesterday and she finished the day although very tired. She doesn't report a fever or chills at home until this morning and she also told me she was just treated for UTI and completed antibiotics 1 month ago. 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 She has been given the aggressive IV fluid resuscitation for severe sepsis in the emergency room but she does have vascular congestion on chest x-ray so we'll consult cardiology for volume overload with hypertension from severe sepsis. Her platelet count is 38,000 as forewarned by her that she has abnormal complete blood count levels due to splenectomy but we'll consult Dr. Wesley due to ITP history. Critical illness will require pulmonary critical care specialty consultation Dr. Wilkinson will see her in the near future. She is placed on empiric antibiotic of vancomycin and Zosyn and will be monitored closely in the ICU for any need of pressor therapy and/or additional multisystem organ failure with intubation that could result from volume overload. She reports the back pain has been the most severe and does report nausea and loss of appetite the last several days. Even though the urinalysis appeared to be normal I suspect pyelonephritis with bacteremia due to recent UTI 1 month ago. Date Seen 07/25/16 Subjective/Events-last exam patient continues to have severe nausea and complains primarily of a headache. She did get some sleep last night but remains lethargic off and on. Diarrhea has stopped Review of Systems HEENT: Head Aches Gastrointestinal: Nausea Neurological: Weakness Objective Exam Vital Signs Vital Sign - Last 12Hours 07/21/16 07/21/16 07/22/16 09:44 13:30 15:29 Temp 100.9 Pulse 113 Resp 19 B/P (MAP) 86/52 Pulse Ox 94 O2 Delivery Room Air O2 Flow Rate 2.00 FiO2 2 Capillary Refill : Less Than 3 Seconds General Appearance: Obese, Other (retching) HEENT: Other (except almost) Neck: Supple Respiratory: Lungs Clear, Decreased Breath Sounds Cardiovascular: Regular Rate, Rhythm, No Gallop, No Murmur Gastrointestinal: Normal Bowel Sounds, Soft Rectal: Deferred Extremity: Pedal Edema Neurologic/Psychiatric: Depressed Affect Skin: Normal Color, Warm/Dry Results/Procedures Lab Laboratory Tests 07/25/16 04:00 Assessment/Plan Assessment and Plan Assess & Plan/Chief Complaint Assessment: Severe sepsis with Strep pneumoniae bacteremia s/p aggressive IV fluid resuscitation in addition high dose Rocephin, empiric broad spectrum Zosyn and vancomycin discontinued to ARF and culture results Respiratory insufficiency we'll recheck a blood gas this morning 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 -platelets remain low Volume overload and vascular congestion on chest x-ray on admit, cardiology consulted due to the fact of high volume fluid resuscitation will place her at risk for congestive heart failure-we'll give Lasix 1 dose and decrease IV fluid rate to 75 mL an hour-high risk for ARDS-chest x-ray shows right middle lobe infiltrate and possible effusion-patient had about 3 L out in response to the Lasix. Diabetes mellitus Morbid obesity likely obstructive sleep apnea undiagnosed Leukocytosis-slowly improving but improved clinical picture Thrombocytopenia with history of splenectomy ARF -resolved now diarrhea-likely secondary to Colace and lactulose will hold for now check for C. difficile if necessary in the future Weakness we'll consult PT headache with nausea vomiting, will check a CT head with and without contrast. Continued ICU monitoring TAMMIE JOSE MD July 25, 2016 09:46
[2016-07-25 09:59] LABS: ABG BASE EXCESS 3.9 MMOL/L (-2.5-2.5); ABG HCO3 29 MMOL/L (23-27); ABG OXYGEN SATURATION 96 % (94-100); ABG PCO2 55 MMHG (35-45); ABG PO2 77 MMHG (79-93); ABG TCO2 30.9 MMOL/L (21.0-31.0)
[2016-07-25 10:00] LABS: ABG PH 7.34 (7.37-7.43); ALLENS TEST YES-POS
[2016-07-25] MEDS ORDERED: FUROSEMIDE 40 MG/4 ML INJ (LASIX) IVP NR (10:00)
[2016-07-25 10:01] LABS: PATIENT TEMP 98.8
--- NOTE | 2016-07-25 10:46 | Diagnostic Imaging Report ---
PROCEDURE: CT head with and without contrast. TECHNIQUE: Multiple contiguous axial images were obtained through the brain before and after the administration of intravenous contrast. INDICATION: Headache and nausea, lethargic, severe sepsis. EXAMINATION: CT brain with and without contrast 07/25/2016. COMPARISON: 07/21/2016 FINDINGS: The previously described hypodensity within the left parietal region is stable. The remaining brain demonstrates no evidence for new infarct. There is no hemorrhage, mass, mass effect or midline shift. There is no hydrocephalus. Postcontrast images demonstrate no abnormal enhancement. Calvarium is intact. Paranasal sinuses demonstrate no acute disease. The mucosal thickening in the left maxillary sinus is seen. IMPRESSION: 1. No acute intracranial process with stable findings in the left parietal region. If symptoms persist MRI could provide further characterization. Dictated by: Dictated on workstation # [id number]
--- NOTE | 2016-07-25 10:47 | Cardiology Progress Note ---
Subjective Subjective/Events-last exam patient is laying down in bed, lethargic, more short of breath today, did not sleep well last night. Review of Systems General: No Chills, No Night Sweats, Fatigue, Malaise, No Appetite, No Other HEENT: No Head Aches, No Visual Changes, No Eye Pain, No Ear Pain, No Dysphasia , No Sinus Congestion, No Post Nasal Drip, No Sore Throat, No Other Pulmonary: Dyspnea, No Cough, No Pleuritic Chest Pain, No Other Cardiovascular: Edema, No: Chest Pain, Lt Headedness, Orthopnea, Other, Palpitations, Paroxysmal Noc. Dyspnea Objective-Cardiology Exam Last Set of Vital Signs Vital Signs 07/23/16 07/25/16 07/25/16 07/25/16 04:00 06:00 07:17 08:00 Temp 99.0 Pulse 85 Resp 32 B/P (MAP) 146/78 Pulse Ox 93 O2 Delivery Nasal Cannula O2 Flow Rate 5.00 FiO2 50 Capillary Refill : Less Than 3 Seconds I&O Intake and Output 07/25/16 00:00 Intake Total 1675 ml Output Total 3100 ml Balance -1425 ml Intake Oral 675 ml IV Total 1000 ml Output Urine Total 3100 ml # Bowel Movements 5 General: Alert, Oriented X3, Cooperative, Severe Distress HEENT: Atraumatic, PERRLA Neck: Supple, No JVD, No Thyromegaly Lungs: Clear to Auscultation, Normal Air Movement Heart: Regular Rate, Normal S1, Normal S2, No Murmurs Abdomen: Normal Bowel Sounds, Soft, Other (mildly diffusely ttp) Extremities: No Edema Skin: No Rashes, No Significant Lesion Neuro: Normal Gait Psych/Mental Status: Mental Status NL, Mood NL Results Lab Laboratory Tests 07/25/16 04:00 A/P-Cardiology Admission Diagnosis Severe sepsis Cardiomegaly HTN Thrombocytopenia Assessment/Plan Severe sepsis, Strep pneumoniae, thrombocytopenia today, underwent CT scan of the chest, continue with antibiotics Acute respiratory failure, Chest x-ray showed atelectasis, questionable effusion , underwent CT scan of the chest, responded to one dose of Lasix. Echo showed preserved LV function, planning for KALIN Planning for KALIN once clinically more stable, I'll place patient on the schedule for tomorrow, evaluate platelet count prior to the procedure Thrombocytopenia- history of ITP with splenectomy. Continue to monitor. 2.8 cm hypoechoic nodule within or around the pancreatic neck/body junction area , MRI nondiagnostic, followed by primary care physician DM Hypertension, had transient episode of hypotension, continue to monitor closely. ARF- continue to monitor renal function closely DM- management by PCP Chronic BLE weakness of unknown etiology- patient reports workup currently in progress with PCP as outpatient Low back pain Morbid obesity, probably underlying NABIL, recommend sleep study as outpatient. Right arm weakness and slurred speech- improved. CT Head revealed subtle hypodense nonspecific lesion within the left periventricular white matter in the posterior left frontal area.Better evaluation with MRI is suggested. H/O splenectomy, cholecystectomy, appendectomy Clinical Quality Measures DVT/VTE Risk/Contraindication: Risk Factor Score Per Nursin RFS Level Per Nursing on Admit: 3=High Stroke: Date of last known well: July 21, 2016 IRENE SUMMERS MD July 25, 2016 10:47
[2016-07-25] MEDS: IBUPROFEN TABLET 200 MG TAB PO PRN ×3 (11:22→23:24)
[2016-07-25] MEDS: GABAPENTIN 300 MG (NEURONTIN) CAP PO SCH ×3 (11:29→21:00)
[2016-07-25] MEDS: MENTHOL/ZINC OXIDE (CALMOSEPTINE) 113 GM TUBE TOP SCH ×2 (11:30→21:03)
[2016-07-25 11:40] LABS: THYROID STIMULATING HORMONE 1.16 UIU/ML (0.35-4.94)
[2016-07-25] MEDS ORDERED: LACTULOSE SYRUP 10GM/15ML (ENULOSE) 30ML UDC PO SCH (12:30)
--- NOTE | 2016-07-25 12:47 | Progress Note ---
Subjective Subjective/Events-last exam Patient with periods of lethargy she states. She's in and out. Not urinating. Having headaches and nausea. Ct head performed no acute process left parietal hypodensity stable. Not having diarrhea anymore. No other new complaints. Objective Exam Vital Signs Date Time Temp Pulse Resp B/P (MAP) Pulse Ox O2 Delivery O2 Flow Rate FiO2 07/25/16 10:00 83 19 148/82 93 Nasal Cannula 5.00 07/25/16 09:00 84 19 162/79 94 Nasal Cannula 5.00 07/25/16 08:00 84 19 158/87 93 Nasal Cannula 5.00 07/25/16 08:00 93 5.00 07/25/16 08:00 99.0 Nasal Cannula 5.00 07/25/16 07:17 85 07/25/16 07:00 86 19 168/87 93 Nasal Cannula 5.00 07/25/16 06:00 80 32 146/78 94 High Flow N/C 5.00 07/25/16 05:00 81 27 137/76 94 High Flow N/C 5.00 07/25/16 04:35 98.2 07/25/16 04:00 93 5.00 07/25/16 04:00 81 27 126/67 94 High Flow N/C 5.00 07/25/16 03:00 84 26 132/69 92 High Flow N/C 5.00 07/25/16 02:00 84 27 128/63 92 High Flow N/C 5.00 07/25/16 01:00 86 29 123/66 92 High Flow N/C 5.00 07/25/16 01:00 86 07/25/16 00:00 93 5.00 07/25/16 00:00 85 31 147/79 93 High Flow N/C 5.00 07/24/16 23:00 84 22 156/91 92 High Flow N/C 5.00 07/24/16 22:00 83 16 174/95 92 High Flow N/C 5.00 07/24/16 21:00 80 20 152/80 93 High Flow N/C 5.00 07/24/16 20:07 93 5.00 07/24/16 20:00 85 18 141/79 92 High Flow N/C 5.00 07/24/16 20:00 93 5.00 07/24/16 19:30 98.9 High Flow N/C 5.00 07/24/16 19:03 85 07/24/16 19:00 85 18 133/68 92 High Flow N/C 5.00 07/24/16 18:00 81 18 142/70 91 High Flow N/C 5.00 07/24/16 17:00 78 19 152/72 93 High Flow N/C 5.00 07/24/16 16:00 98.4 80 22 138/69 90 High Flow N/C 5.00 07/24/16 16:00 94 5.00 07/24/16 15:00 74 19 149/75 92 High Flow N/C 5.00 07/24/16 14:00 78 14 139/80 90 High Flow N/C 5.00 07/24/16 13:00 73 14 139/66 93 High Flow N/C 5.00 07/24/16 12:56 76 I & O 07/25/16 07:00 Intake Total 1625 ml Output Total 3175 ml Balance -1550 ml Capillary Refill : Less Than 3 Seconds General Appearance: Obese, Other (retching) Neck: Supple Respiratory: No Accessory Muscle Use, No Respiratory Distress Cardiovascular: Regular Rate, Rhythm, No Gallop, No Murmur Gastrointestinal: non tender (no guarding or rebounding), soft Extremity: Pedal Edema Neurologic/Psychiatric: Alert, Depressed Affect Skin: Normal Color, Warm/Dry Lymphatic: No Adenopathy Results Lab Laboratory Tests 07/24/16 14:28: Glucometer 135H 07/25/16 04:00: White Blood Count 24.3H, Red Blood Count 3.94L, Hemoglobin 11.8, Hematocrit 37, Mean Corpuscular Volume 94, Mean Corpuscular Hemoglobin 30, Mean Corpuscular Hemoglobin Concent 32, Red Cell Distribution Width 16.5H, Platelet Count 25*L, Mean Platelet Volume 13.1H, Sodium Level 140, Potassium Level 4.5, Chloride Level 104, Carbon Dioxide Level 27, Anion Gap 9, Blood Urea Nitrogen 19H, Creatinine 0.71, Estimat Glomerular Filtration Rate > 60, BUN/Creatinine Ratio 27, Glucose Level 140H, Lactic Acid Level 0.78, Calcium Level 8.2L, Phosphorus Level 4.0, Magnesium Level 1.8 07/25/16 09:51: Blood Gas Puncture Site LT RAD, Blood Gas Patient Temperature 98.8, Arterial Blood pH 7.34*L, Arterial Blood Partial Pressure CO2 55H, Arterial Blood Partial Pressure O2 77L, Arterial Blood HCO3 29H, Arterial Blood Total CO2 30.9 , Arterial Blood Oxygen Saturation 96, Arterial Blood Base Excess 3.9H, Sina Test YES-POS, Blood Gas Ventilator Setting NO, Blood Gas Inspired Oxygen 5L 07/25/16 10:42: Glucometer 129H 07/25/16 10:53: Ammonia 49H, Thyroid Stimulating Hormone (TSH) 1.16 Microbiology 07/21/16 Blood Culture - Preliminary, Resulted Streptococcus Pneumoniae 07/21/16 Influenza Types A,B Antigen (JEISON) - Final, Complete Assessment/Plan Assessment/Plan Assessment/Plan Pneumococcal sepsis, post-splenectomy status. MRI confirming portal hypertension. EUS as an outpatient for possible pancreatic head mass Leukocytosis continuing to improve Discussed vaccine compliance with patient and family. Medical management Clinical Quality Measures DVT/VTE Risk/Contraindication: Risk Factor Score Per Nursin RFS Level Per Nursing on Admit: 3=High Stroke: Date of last known well: July 21, 2016 NEIL AJ DO July 25, 2016 12:46
[2016-07-25] MEDS ORDERED: LACTULOSE SYRUP 10GM/15ML (ENULOSE) 30ML UDC ONE ×2 (14:07→14:11)
[2016-07-25] MEDS: LACTULOSE SYRUP 10GM/15ML (ENULOSE) 30ML UDC PO SCH (21:02)
[2016-07-26] VITALS (17 sets, daily range): BP systolic 109–164; BP diastolic 52–84
[2016-07-26] MEDS: NOREPINEPHRINE 4 MG in D5W 250 ML (IVPB) 250 ML IV SCH ×4 (02:23→21:12)
[2016-07-26 04:12] LABS: MEAN CORPUSCULAR HEMOGLOBIN 30 PG (25-34); MEAN CORPUSCULAR HGB CONC 32 G/DL (32-36); MEAN CORPUSCULAR VOLUME 94 FL (80-99); RED BLOOD COUNT 3.82 10^6/uL (4.35-5.85); RED CELL DISTRIBUTION WIDTH 16.2 % (10.0-14.5); WHITE BLOOD COUNT 21.9 10^3/uL (4.3-11.0)
[2016-07-26 04:16] LABS: PLATELET COUNT 38 10^3/uL (130-400)
[2016-07-26 04:27] LABS: INR 1.3 (0.8-1.4); PROTHROMBIN TIME PATIENT 16.3 SEC (12.2-14.7)
[2016-07-26 04:34] LABS: MAGNESIUM 1.7 MG/DL (1.8-2.4); PHOSPHORUS 3.3 MG/DL (2.3-4.7)
[2016-07-26 04:36] LABS: ALANINE AMINOTRANSFERASE 75 U/L (0-55); ALBUMIN 2.7 G/DL (3.2-4.5); ANION GAP 7 MMOL/L (5-14); ASPARTATE AMINO TRANSFERASE 54 U/L (5-34); BILIRUBIN,TOTAL 0.7 MG/DL (0.1-1.0); BLOOD UREA NITROGEN 17 MG/DL (7-18); BUN/CREATININE RATIO 24; CALCIUM 8.2 MG/DL (8.5-10.1); CARBON DIOXIDE 31 MMOL/L (21-32); CHLORIDE 103 MMOL/L (98-107); CREATININE SERUM 0.71 MG/DL (0.60-1.30); GFR ESTIMATED > 60; GLUCOSE 124 MG/DL (70-105); POTASSIUM 3.9 MMOL/L (3.6-5.0); SODIUM 141 MMOL/L (135-145); TOTAL PROTEIN 5.8 G/DL (6.4-8.2)
[2016-07-26] MEDS: MAGNESIUM 1 GM/100 ML IVPB 100 ML IV SCH ×3 (05:43→06:41)
[2016-07-26] MEDS: POTASSIUM CL 10MEQ/50ML IVPB 50 ML IV SCH (05:56)
[2016-07-26] MEDS: KCL 20 MEQ TAB (K-DUR) PO SCH (05:57)
--- NOTE | 2016-07-26 06:25 | Pulmonary Progress Note ---
Subjective Subjective/Events-last exam PT appears to be doing much better today. Exam Exam Vital Signs Date Time Temp Pulse Resp B/P (MAP) Pulse Ox O2 Delivery O2 Flow Rate FiO2 07/26/16 06:00 80 11 136/76 91 High Flow N/C 5.00 07/26/16 05:00 84 14 133/68 93 High Flow N/C 5.00 07/26/16 04:00 93 5.00 07/26/16 04:00 98.4 79 14 109/52 91 High Flow N/C 5.00 07/26/16 03:00 77 17 124/57 92 High Flow N/C 5.00 07/26/16 02:00 79 17 130/57 93 High Flow N/C 5.00 07/26/16 01:00 74 07/26/16 01:00 75 22 123/66 91 High Flow N/C 5.00 07/26/16 00:00 97.7 70 26 123/60 93 High Flow N/C 5.00 07/26/16 00:00 93 5.00 07/25/16 23:00 70 30 105/57 93 High Flow N/C 5.00 07/25/16 22:00 75 15 131/55 92 High Flow N/C 5.00 07/25/16 21:00 75 19 /90 92 High Flow N/C 5.00 07/25/16 20:15 94 5.00 07/25/16 20:00 98.7 71 15 146/80 94 High Flow N/C 5.00 07/25/16 19:03 74 13 152/90 91 High Flow N/C 5.00 07/25/16 19:03 74 07/25/16 18:50 93 5.00 07/25/16 18:00 73 13 154/72 92 Nasal Cannula 5.00 07/25/16 17:00 75 17 159/87 91 Nasal Cannula 5.00 07/25/16 16:30 91 5.00 07/25/16 16:00 98.2 74 19 154/70 93 Nasal Cannula 5.00 07/25/16 15:12 5.00 07/25/16 15:00 76 30 177/89 93 Nasal Cannula 5.00 07/25/16 14:00 79 16 184/97 94 Nasal Cannula 5.00 07/25/16 13:09 77 5/7/17 13:00 98.9 07/25/16 13:00 78 15 156/83 93 Nasal Cannula 5.00 07/25/16 12:00 79 14 167/87 91 Nasal Cannula 5.00 07/25/16 12:00 93 5.00 07/25/16 11:00 80 21 151/77 91 Nasal Cannula 5.00 07/25/16 10:00 83 19 148/82 93 Nasal Cannula 5.00 07/25/16 09:00 84 19 162/79 94 Nasal Cannula 5.00 07/25/16 08:00 84 19 158/87 93 Nasal Cannula 5.00 07/25/16 08:00 93 5.00 07/25/16 08:00 99.0 Nasal Cannula 5.00 07/25/16 07:17 85 07/25/16 07:00 86 19 168/87 93 Nasal Cannula 5.00 I & O 07/26/16 07:00 Intake Total 2760 ml Output Total 2075 ml Balance 685 ml General Appearance: Obese, Other (retching) Neck: Supple Respiratory: No Accessory Muscle Use, No Respiratory Distress Cardiovascular: Regular Rate, Rhythm, No Gallop, No Murmur Capillary Refill: Less Than 3 Seconds Gastrointestinal: non tender (no guarding or rebounding), soft Extremity: Pedal Edema Neurologic/Psychiatric: Alert, Depressed Affect Skin: Normal Color, Warm/Dry Lymphatic: No Adenopathy Results Lab Laboratory Tests 07/25/16 04:00 07/26/16 04:05 Assessment/Plan Assessment/Plan Severe Sepsis with strep bacteremia r/o endocarditis -Rocephin -KALIN today Acute respiratory distress - much improved Hypotension -monitor Acute renal failure - resolved ?pancreatic mass -US liver pancreas and MRI are not definitive - will need outpatient EUS Hx of splenectomy and ITP Morbid obesity Thrombocytopenia with to history of splenectomy WIll keep in ICU until after KALIN poss transfer tomorrow morning Clinical Quality Measures DVT/VTE Risk/Contraindication: Risk Factor Score Per Nursin RFS Level Per Nursing on Admit: 3=High Stroke: Date of last known well: July 21, 2016 NAIDA HUGGINS DO July 26, 2016 06:25
[2016-07-26] MEDS: ACYCLOVIR 400 MG TABLET (ZOVIRAX) PO SCH ×5 (06:33→22:11)
[2016-07-26] MEDS ORDERED: fentaNYL INJECTION 100 MCG/2 ML AMP ONE (08:09)
[2016-07-26] MEDS ORDERED: MIDAZOLAM 2 MG/2 ML (VERSED) VIAL ONE (08:09)
[2016-07-26] MEDS ORDERED: LIDOCAINE 2% VISCOUS 15 ML UDC ONE (08:10)
--- NOTE | 2016-07-26 08:15 | Cardiology Progress Note ---
Subjective Subjective/Events-last exam patient is laying down in bed, feeling better today. Breathing better. Complaining of abdominal discomfort and constipation Review of Systems General: No Chills, No Night Sweats, Fatigue, Malaise, No Appetite, No Other HEENT: No Head Aches, No Visual Changes, No Eye Pain, No Ear Pain, No Dysphasia , No Sinus Congestion, No Post Nasal Drip, No Sore Throat, No Other Pulmonary: Dyspnea, No Cough, No Pleuritic Chest Pain, No Other Cardiovascular: No: Chest Pain, Edema, Lt Headedness, Orthopnea, Other, Palpitations, Paroxysmal Noc. Dyspnea Objective-Cardiology Exam Last Set of Vital Signs Vital Signs 07/23/16 07/26/16 07/26/16 07/26/16 04:00 06:00 06:48 07:49 Temp 98.4 Pulse 80 Resp 11 B/P (MAP) 136/76 Pulse Ox 93 O2 Delivery High Flow N/C O2 Flow Rate 5.00 FiO2 50 Capillary Refill : Less Than 3 Seconds I&O Intake and Output 07/26/16 00:00 Intake Total 2910 ml Output Total 2650 ml Balance 260 ml Intake Oral 870 ml IV Total 2040 ml Output Urine Total 2650 ml # Bowel Movements 3 General: Alert, Oriented X3, Cooperative, Severe Distress HEENT: Atraumatic, PERRLA Neck: Supple, No JVD, No Thyromegaly Lungs: Clear to Auscultation, Normal Air Movement Heart: Regular Rate, Normal S1, Normal S2, No Murmurs Abdomen: Normal Bowel Sounds, Soft, No Tenderness, Other Extremities: No Clubbing, No Cyanosis, No Edema Skin: No Rashes, No Significant Lesion Neuro: Normal Gait Psych/Mental Status: Mental Status NL, Mood NL Results Lab Laboratory Tests 07/26/16 04:05 A/P-Cardiology Admission Diagnosis Severe sepsis Cardiomegaly HTN Thrombocytopenia Assessment/Plan Severe sepsis, Strep pneumoniae, thrombocytopenia today, underwent CT scan of the chest, continue with antibiotics, planning for KLAIN today Acute respiratory failure, Chest x-ray showed atelectasis, questionable effusion , underwent CT scan of the chest, responded to one dose of Lasix. Echo showed preserved LV function, planning for KALIN Thrombocytopenia- history of ITP with splenectomy. Continue to monitor. 2.8 cm hypoechoic nodule within or around the pancreatic neck/body junction area , MRI nondiagnostic, followed by primary care physician DM Hypertension, had transient episode of hypotension, continue to monitor closely. ARF- continue to monitor renal function closely DM- management by PCP Chronic BLE weakness of unknown etiology- patient reports workup currently in progress with PCP as outpatient Low back pain Morbid obesity, probably underlying NABIL, recommend sleep study as outpatient. Right arm weakness and slurred speech- improved. CT Head revealed subtle hypodense nonspecific lesion within the left periventricular white matter in the posterior left frontal area.Better evaluation with MRI is suggested. H/O splenectomy, cholecystectomy, appendectomy Clinical Quality Measures DVT/VTE Risk/Contraindication: Risk Factor Score Per Nursin RFS Level Per Nursing on Admit: 3=High Stroke: Date of last known well: July 21, 2016 IRENE SUMMERS MD July 26, 2016 08:15
--- NOTE | 2016-07-26 08:16 | Cardiac Procedure Note-CS/ASA ---
Pre-Procedure Note Pre-Op Procedure Note H&P Reviewed The H&P was reviewed, patient examined and no changes noted. Date H&P Reviewed: July 26, 2016 Time H&P Reviewed: 08:16 Conscious Sedation Pre-Proced Time Reviewed: 08:16 ASA Class: 3 Airway Mallampati Classification: (cowlitz appropriate class) I. II. III, IV Lungs Heart ASA score ASA 1: a normal healthy patient ASA 2: a patient with a mild systemic disease (mid diabetes, controlled hypertension, obesity x ASA 3: a patient with a severe systemic disease that limits activity (angina , COPD, prior Myocardial infarction) ASA 4: a patient with an incapacitating disease that is a constant threat to life (CHF, renal failure) ASA 5: a moribund patient not expected to survive 24 hrs. (ruptured aneurysm) ASA 6: a declared brain patient whose organs are being harvested. For emergent operations, add the letter E after the classification Grade 3 Sedation Plan: Analgesia, Amnesia, Plan communicated to team members, Discussed options with patient/fam, Discussed risks with patient/fam Note The patient is an appropriate candidate to undergo the planned procedure, sedation, and anesthesia. The patient immediately re-assessed prior to indication. IRENE SUMMERS MD July 26, 2016 08:16
--- NOTE | 2016-07-26 08:35 | Diagnostic Imaging Report ---
INDICATION: Dyspnea. TIME OF EXAMINATION: 0453 hours. FINDINGS: Since the examination of one day earlier, there has been slight interval improvement in the aeration of the lung bases although there is residual atelectasis and/or pneumonitis bilaterally. There is cardiomegaly and mild pulmonary venous congestion. IMPRESSION: Slight overall improvement in aeration of the lung bases since the study of one day earlier. Dictated by: Dictated on workstation # [id number]
--- NOTE | 2016-07-26 09:28 | Progress Note-Hospitalist ---
Progress Note HPI/CC on Admission CC: Severe sepsis of unknown source HPI: This is a 50-year-old white female clinic patient of Dr. Torres at [facility] the presents to the emergency room after waking up at 4 o'clock this morning trying to get to the bathroom and was not feeling well. She was doing well until the night before last when she felt her heart beating in her head but then it actually improved enough for her to go to work yesterday and she finished the day although very tired. She doesn't report a fever or chills at home until this morning and she also told me she was just treated for UTI and completed antibiotics 1 month ago. 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 She has been given the aggressive IV fluid resuscitation for severe sepsis in the emergency room but she does have vascular congestion on chest x-ray so we'll consult cardiology for volume overload with hypertension from severe sepsis. Her platelet count is 38,000 as forewarned by her that she has abnormal complete blood count levels due to splenectomy but we'll consult Dr. Wesley due to ITP history. Critical illness will require pulmonary critical care specialty consultation Dr. Wilkinson will see her in the near future. She is placed on empiric antibiotic of vancomycin and Zosyn and will be monitored closely in the ICU for any need of pressor therapy and/or additional multisystem organ failure with intubation that could result from volume overload. She reports the back pain has been the most severe and does report nausea and loss of appetite the last several days. Even though the urinalysis appeared to be normal I suspect pyelonephritis with bacteremia due to recent UTI 1 month ago. Progress Notes/Assess & Plan Date Seen 07/26/16 Admission Dx/Process Assessment: Severe sepsis of unknown source but I suspect pyelonephritis and bacteremia in need of aggressive IV fluid resuscitation and/or pressor therapy in addition to empiric antibiotics of Zosyn and vancomycin 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 consulting hematology Volume overload and vascular congestion on chest x-ray will consult cardiology due to the fact of high volume fluid resuscitation will place her at risk for congestive heart failure Diabetes mellitus Morbid obesity likely obstructive sleep apnea undiagnosed Leukocytosis Thrombocytopenia with to history of splenectomy Diagonsis/Assessment & Plan Pneumovax and H flu vaccines need to be performed due to splenectomy since she has never had either one and will perform that prior to DC. Noted events over weekend. Ammonia level was high and now having BM due to Lactulose and doing better. KALIN is scheduled for today then will be on road to recovery. Checked meds and labs Creat improved since DC Vanc and now normal Abdominal Ultrasound and CT showed cirrhosis and will need EUS to evaluate for nodules on liver Reviewed cardiology and pulmonology consult BCx + for Strep Pneumoniae No fever, vital signs stable, pleasant, much improved, family at the bedside Regular rate and rhythm, clear to all station bilaterally diminished in the bases No edema Laboratory Tests 07/26/16 04:05 Assessment: Severe sepsis with Strep pneumoniae bacteremia s/p aggressive IV fluid resuscitation in addition high dose Rocephin s/p DC empiric broad spectrum Zosyn and vancomycin due to ARF and culture results Respiratory insufficiency following Dilaudid 2mg IV given in ICU last week requiring biPAP now DC 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 Volume overload and vascular congestion on chest x-ray on admit, cardiology consulted due to the fact of high volume fluid resuscitation will place her at risk for congestive heart failure Diabetes mellitus Morbid obesity likely obstructive sleep apnea undiagnosed Leukocytosis but improved clinical picture Thrombocytopenia with to history of splenectomy s/p New ARF resolved now Plan: KALIN Abx Fall risk PT/OT Long recovery expected Monitor labs NUHA LUCAS DO July 26, 2016 09:28
[2016-07-26] MEDS: cefTRIAXone INJECTION 2,000 MG in NS (IVPB) 50 ML IV SCH (09:48)
[2016-07-26] MEDS: ONDANSETRON 4 MG/2 ML (SDV) Z0FRAN IV PRN ×2 (09:49→23:44)
[2016-07-26] MEDS: MENTHOL/ZINC OXIDE (CALMOSEPTINE) 113 GM TUBE TOP SCH ×2 (09:53→20:35)
[2016-07-26] MEDS: GABAPENTIN 300 MG (NEURONTIN) CAP PO SCH ×3 (10:32→20:34)
--- NOTE | 2016-07-26 10:52 | Occ Therapy Progress Note ---
Therapy Progress Note Visitors present in room. Pt stated that she felt nauseous and refused therapy. OT to come back and check on pt. ARNAUD DIA July 26, 2016 10:51
[2016-07-26] MEDS ORDERED: SCOPOLAMINE PATCH REMOVAL TP SCH (11:00)
--- NOTE | 2016-07-26 11:13 | Physical Therapy Progress Note ---
Therapy Progress Note Patient declined therapy due to nausea. Patient to have a KALIN this p.m. PT to attempt in p.m. 1 visit ref KRISTIE JIMENES PT July 26, 2016 11:13
[2016-07-26] MEDS ORDERED: MIDAZOLAM 2 MG/2 ML (VERSED) VIAL IVP ONE (12:15)
[2016-07-26] MEDS ORDERED: fentaNYL INJECTION 100 MCG/2 ML AMP IVP ONE (12:15)
[2016-07-26] MEDS ORDERED: LIDOCAINE 2% VISCOUS 15 ML UDC PO ONE (12:15)
--- NOTE | 2016-07-26 12:52 | Progress Note-Standard ---
Standard Progress Note Progress Notes/Assess & Plan Progress/Assessment & Plan 07/26/16:slow improvement. KALIN reported to be negative for endocarditis. We'll continue supportive therapy Final Diagnosis post splenectomy sepsis. FREDIS CADENA MD July 26, 2016 12:52 pm
[2016-07-26] MEDS: LACTATED RINGERS 1,000 ML IV SCH (13:15)
[2016-07-26] MEDS: LACTULOSE SYRUP 10GM/15ML (ENULOSE) 30ML UDC PO SCH ×2 (13:54→20:34)
--- NOTE | 2016-07-26 13:57 | Physical Therapy Daily Note ---
PT Daily Note-Current Subjective Patient is in bed with family present and agrees to PT. Patient had KALIN at 1200 on this date. Pain Numeric Pain Scale: 10-Worst Possible Pain Location: Lower Location Body Site: Back Pain Description: Acute, Chronic Mental Status Patient Orientation: Normal For Age Attachments: Oxygen (11L mask), IV Transfers Functional [place] Measure 0=Not Assessed/NA 4=Minimal Assistance 1=Total Assistance 5=Supervision or Setup 2=Maximal Assistance 6=Modified [place] 3=Moderate Assistance 7=Complete IndependenceIRFPAI Quality Coding Scale 6 Independent with activity with or without an assistive device 5 Patient requires set up or clean up by helper. Patient completes activity by themselves 4 Supervision or touching assist (CGA). [place] provide cues , steadying assist 3 The helper provides less than half the effort to complete the activity 2 The helper provides more than half the effort to complete the activity 1 Dependent. The helper does all the effort to complete an activity 7 Patient refused to complete or attempt activity 9 The patient did not perform the activity before the current illness or injury 88 Not attempted due to Medical conditions or safety concerns Transfers (B, C, W/C) (FIM): 2 Scootin Rollin Supine to/from Sit: 2 Sit to/from Stand: 3 Bed to/from Chair: 3 patient is resistive with all mobility due to LOB per patient and spouse report. Gait Training Gait (FIM): 1 Distance (FIM): 1=up to 49 ft Distance: 5' x 2 Gait Level of Assist: 4 Gait Persons Needed: 1 Gait Assistive Device: FWW minimal to no foot clearance due to weakness and decrease activity level Exercises Seated Therapy Exercises: Ankle pumps, Long arc quads Seated Reps: 15 Assessment Patient tolerated treatment well, however, does self limit mobility. PT to increase activity as tolerated by patient. Patient requires encouragement to actively participate with PT. PT Custodial Goals Custodial Goals PT [employer] Associate Goals Time Frame: July 28, 2016 Transfers (B,C,W/C) (FIM): 6 Gait (FIM): 6 PT Plan Treatment/Plan Treatment Plan: Continue Plan of Care Treatment Plan: Bed Mobility, Education, Functional Activity Unique, Functional Strength, Gait, Safety, Therapeutic Exercise, Transfers Treatment Duration: July 28, 2016 Visits Per Week: 5-6 Time/GCodes Time In: 1307 Time Out: 1330 Total Billed Treatment Time: 23 Total Billed Treatment 1 visit FA x 2 23 min KRISTIE JIMENES PT July 26, 2016 13:57
--- NOTE | 2016-07-26 14:24 | Occupational Ther Daily Note ---
OT Current Status-Daily Note Subjective Pt alert, sitting up in recliner. Nrsg in room to assist with standing pt. Pt agreed to therapy. Mental Status/Objective Patient Orientation: Person, Place, Time, Situation Functional [place] Measure 0=Not Assessed/NA 4=Minimal Assistance 1=Total Assistance 5=Supervision or Setup 2=Maximal Assistance 6=Modified [place] 3=Moderate Assistance 7=Complete [place] ADL-Treatment Functional [place] Measure 0=Not Assessed/NA 4=Minimal Assistance 1=Total Assistance 5=Supervision or Setup 2=Maximal Assistance 6=Modified [place] 3=Moderate Assistance 7=Complete IndependenceIRFPAI Quality Coding Scale 6 Independent with activity with or without an assistive device 5 Patient requires set up or clean up by helper. Patient completes activity by themselves 4 Supervision or touching assist (CGA). Fr[place] provide cues , steadying assist 3 The helper provides less than half the effort to complete the activity 2 The helper provides more than half the effort to complete the activity 1 Dependent. The helper does all the effort to complete an activity 7 Patient refused to complete or attempt activity 9 The patient did not perform the activity before the current illness or injury 88 Not attempted due to Medical conditions or safety concerns OT Short Term Goals Short Term Goals 1=Demonstrate adherence to instructed precautions during ADL tasks. 2=Patient will verbalize/demonstrate understanding of assistive devices/ modifications for ADL. 3=Patient will improve strength/tolerance for activity to enable patient to perform ADL's. OT Clinical Trials Nurse Goals Clinical Trials Nurse Goals Time Frame: August 06, 2016 Eating (FIM): 6 Groomin Upper Body Dressing(FIM): 5 Lower Body Dressing(FIM): 5 Toilet/Commode Transfer(FIM): 6 Additional Goals: 1-Demonstrate ADL Tasks, 2-Verbalize Understanding, 3- ImproveStrength/Unique 1=Demonstrate adherence to instructed precautions during ADL tasks. 2=Patient will verbalize/demonstrate understanding of assistive devices/ modifications for ADL. 3=Patient will improve strength/tolerance for activity to enable patient to perform ADL's. OT Education/Plan Problem List/Assessment Pt to benefit from skilled OT intervention for ADL training, transfers, strengthening, and home safety education to maximize level of function and allow safe return home. Treatment Plan/Plan of Care Patient would benefit from OT for education, treatment and training to promote independence in ADL's, mobility, safety and/or upper extremity function for ADL' s. Plan of Care: ADL Retraining, Functional Mobility, UE Funct Exercise/Act Treatment Duration: August 06, 2016 Visits Per Week: 5 Agreement: Yes Rehab Potential: ARNAUD Christian July 26, 2016 14:24
--- NOTE | 2016-07-26 14:37 | Occupational Ther Daily Note ---
OT Current Status-Daily Note Subjective Pt alert, sitting in recliner. Nrsg present to adjust pt in chair. Pt agreed to therapy. Mental Status/Objective Patient Orientation: Person, Place, Time, Situation Functional [place] Measure 0=Not Assessed/NA 4=Minimal Assistance 1=Total Assistance 5=Supervision or Setup 2=Maximal Assistance 6=Modified [place] 3=Moderate Assistance 7=Complete [place] Other Treatment Pt required 2 persons to assist for sit to stand. Pt kept reiterating that she couldn't do it. Pt was able to complete with assistance. BENSON cleansed pt's buttocks. Pt then worked on UE exercises against gravity 10x's each. Pt would have to be verbal cued to complete exercises correctly due to pt falling asleep before each exercise was done. After therapy, pt sitting in recliner with call light/phone in reach. All needs met in room OT Short Term Goals Short Term Goals 1=Demonstrate adherence to instructed precautions during ADL tasks. 2=Patient will verbalize/demonstrate understanding of assistive devices/ modifications for ADL. 3=Patient will improve strength/tolerance for activity to enable patient to perform ADL's. OT Longterm Goals Longterm Goals Time Frame: August 06, 2016 Eating (FIM): 6 Grooming(FIM): 6 Upper Body Dressing(FIM): 5 Lower Body Dressing(FIM): 5 Toilet/Commode Transfer(FIM): 6 Additional Goals: 1-Demonstrate ADL Tasks, 2-Verbalize Understanding, 3- ImproveStrength/Unique 1=Demonstrate adherence to instructed precautions during ADL tasks. 2=Patient will verbalize/demonstrate understanding of assistive devices/ modifications for ADL. 3=Patient will improve strength/tolerance for activity to enable patient to perform ADL's. OT Education/Plan Problem List/Assessment Pt to benefit from skilled OT intervention for ADL training, transfers, strengthening, and home safety education to maximize level of function and allow safe return home. Discharge Recommendations Plan/Recommendations: Continue POC Treatment Plan/Plan of Care Patient would benefit from OT for education, treatment and training to promote independence in ADL's, mobility, safety and/or upper extremity function for ADL' s. Plan of Care: ADL Retraining, Functional Mobility, UE Funct Exercise/Act Treatment Duration: August 06, 2016 Visits Per Week: 5 Agreement: Yes Rehab Potential: Good Time/GCodes Start Time: 13:50 Stop Time: 14:05 Total Time Billed (hr/min): 15 Billed Treatment Time 1 visit-FA 1 (15 min) ARNAUD DIA July 26, 2016 14:37
[2016-07-27 00:02] VITALS: BP 170/76
[2016-07-27] MEDS: ONDANSETRON 4 MG/2 ML (SDV) Z0FRAN IV PRN ×3 (03:29→20:26)
[2016-07-27] MEDS: ACETAMINOPHEN 500 MG TAB (TYLENOL) PO PRN (03:29)
[2016-07-27] MEDS: LACTATED RINGERS 1,000 ML IV SCH (03:45)
[2016-07-27 04:00] VITALS: BP 142/65
[2016-07-27] MEDS: MAGNESIUM 1 GM/100 ML IVPB 100 ML IV SCH (04:03)
[2016-07-27] MEDS: KCL 20 MEQ TAB (K-DUR) PO SCH (04:03)
[2016-07-27] MEDS: POTASSIUM CL 10MEQ/50ML IVPB 50 ML IV SCH (04:03)
[2016-07-27] MEDS: NOREPINEPHRINE 4 MG in D5W 250 ML (IVPB) 250 ML IV SCH (04:03)
[2016-07-27] MEDS: ACYCLOVIR 400 MG TABLET (ZOVIRAX) PO SCH ×5 (05:25→21:33)
[2016-07-27 05:39] LABS: MEAN PLATELET VOLUME 14.1 FL (7.4-10.4); RED BLOOD COUNT 3.68 10^6/uL (4.35-5.85); RED CELL DISTRIBUTION WIDTH 15.6 % (10.0-14.5); WHITE BLOOD COUNT 18.2 10^3/uL (4.3-11.0)
[2016-07-27 06:00] LABS: ANION GAP 7 MMOL/L (5-14); BLOOD UREA NITROGEN 15 MG/DL (7-18); BUN/CREATININE RATIO 24; CALCIUM 8.1 MG/DL (8.5-10.1); CARBON DIOXIDE 31 MMOL/L (21-32); CHLORIDE 101 MMOL/L (98-107); CREATININE SERUM 0.63 MG/DL (0.60-1.30); GFR ESTIMATED > 60; GLUCOSE 127 MG/DL (70-105); MAGNESIUM 1.7 MG/DL (1.8-2.4); PHOSPHORUS 3.1 MG/DL (2.3-4.7); POTASSIUM 3.7 MMOL/L (3.6-5.0); SODIUM 139 MMOL/L (135-145)
--- NOTE | 2016-07-27 06:48 | Pulmonary Progress Note ---
Exam Exam Vital Signs Date Time Temp Pulse Resp B/P (MAP) Pulse Ox O2 Delivery O2 Flow Rate FiO2 07/27/16 04:00 98.9 79 16 142/65 94 High Flow N/C 4.50 07/27/16 00:02 98.6 81 18 170/76 95 High Flow N/C 4.50 07/26/16 20:30 4.50 07/26/16 16:00 79 21 164/79 93 High Flow N/C 5.00 07/26/16 15:00 80 23 151/71 91 OxyMask 10.00 07/26/16 14:00 73 15 137/70 95 OxyMask 10.00 07/26/16 13:00 75 07/26/16 13:00 75 15 133/73 95 OxyMask 10.00 07/26/16 12:00 93 10.00 07/26/16 12:00 84 13 149/77 95 OxyMask 10.00 07/26/16 11:00 74 14 149/69 94 High Flow N/C 5.00 07/26/16 10:00 74 15 139/68 94 High Flow N/C 5.00 07/26/16 09:00 77 24 123/63 94 High Flow N/C 5.00 07/26/16 08:00 93 5.00 07/26/16 08:00 77 30 149/84 92 High Flow N/C 5.00 07/26/16 07:49 98.4 07/26/16 07:00 77 07/26/16 07:00 76 12 153/77 92 High Flow N/C 5.00 07/26/16 06:48 93 5.00 I & O 07/27/16 07:00 Intake Total 3410 ml Output Total 654 ml Balance 2756 ml General Appearance: Obese, Other (retching) Neck: Supple Respiratory: No Accessory Muscle Use, No Respiratory Distress Cardiovascular: Regular Rate, Rhythm, No Gallop, No Murmur Capillary Refill: Less Than 3 Seconds Gastrointestinal: non tender (no guarding or rebounding), soft Extremity: Pedal Edema Neurologic/Psychiatric: Alert, Depressed Affect Skin: Normal Color, Warm/Dry Lymphatic: No Adenopathy Results Lab Laboratory Tests 07/26/16 04:05 07/27/16 05:30 Assessment/Plan Assessment/Plan Severe Sepsis with strep bacteremia r/o endocarditis -Rocephin -s/p KALIN Acute respiratory distress - much improved Acute renal failure - resolved ?pancreatic mass -US liver pancreas and MRI are not definitive - will need outpatient EUS Hx of splenectomy and ITP Morbid obesity Thrombocytopenia with to history of splenectomy Clinical Quality Measures DVT/VTE Risk/Contraindication: Risk Factor Score Per Nursin RFS Level Per Nursing on Admit: 3=High Stroke: Date of last known well: July 21, 2016 NAIDA HUGGINS DO July 27, 2016 06:48
--- NOTE | 2016-07-27 07:44 | TEE REPORT ---
DATE OF SERVICE: 07/26/2016 TRANSESOPHAGEAL ECHOCARDIOGRAM: BRIEF HISTORY: The patient is a 50-year-old lady who was admitted for strep pneumonia sepsis, has positive blood cultures, she was scheduled for KALIN to rule out any endocarditis or vegetation on the valve. PROCEDURE NOTE: After explaining the procedure to the patient, all pros and cons were explained, all questions were answered. The patient was placed in the left lateral decubitus position, oral pharynx was anesthetized. The patient had a nosebleed prior to the procedure. Using the tongue depressor, and evaluating her gag reflex, the patient had no gag reflex but there was blood in her mouth. The KALIN probe was introduced through the mouth to the esophagus, then to the stomach, multiple views were obtained. At the end of the procedure, KALIN probe was removed. No complications noted. FINDINGS: 1. The left ventricle is normal in size with normal contractility. Estimated ejection fracture is 60%. 2. The left atrium and left atrial appendage are normal in size. No clot or thrombus, good velocity by Doppler across the left atrial appendage. 3. The right atrium and right ventricle are normal in size. No clot or thrombus were seen. 4. Intraatrial septum evaluation showed small patent foramen ovale with bidirectional shunt, using agitated saline showed some bubble crossing. 5. Mitral valve is normal in morphology. Mild thickness of the mitral leaflet. Mild mitral regurgitation. No vegetation. 6. Aortic valve is trileaflet with normal opening and closing pattern. No vegetation was noted. 7. Tricuspid valve and pulmonic valve were normal with no significant vegetation. Trace tricuspid regurgitation. 8. The tip of the PICC line was noted in the right atrium extending to the tricuspid valve. 9. No pericardial effusion. 10. A portion of the ascending aorta and aortic arch were evaluated and they appeared normal. CONCLUSION: 1. Small patent foramen ovale with bidirectional shunt. 2. Normal left ventricular size and function. Estimated ejection fraction is 60%. 3. No vegetation was noted. 4. Mild mitral and tricuspid regurgitation. 5. Incidental finding, the tip of the PICC line is extending in the right atrium reaching to the tricuspid valve. Job ID: [id number] DocumentID: [id number] Dictated Date: 07/26/2016 12:13:36 [employer] Supervisor Date: 07/26/2016 12:30:28 Dictated By: IRENE SUMMERS MD
[2016-07-27 08:00] VITALS: BP 157/70
--- NOTE | 2016-07-27 08:15 | Diagnostic Imaging Report ---
INDICATION: Sepsis. Portable chest 5:15 AM FINDINGS: Right upper extremity PICC line tip projects over the SVC. There is pulmonary vascular congestion. There are no consolidating alveolar infiltrates. There is no appreciable effusion or pneumothorax. IMPRESSION: Pulmonary vascular congestion that could be related to body habitus. No appreciable change since previous day. Dictated by: Dictated on workstation # [id number]
[2016-07-27] MEDS: MENTHOL/ZINC OXIDE (CALMOSEPTINE) 113 GM TUBE TOP SCH ×2 (09:49→20:24)
[2016-07-27] MEDS: LACTULOSE SYRUP 10GM/15ML (ENULOSE) 30ML UDC PO SCH ×2 (09:49→20:27)
[2016-07-27] MEDS: GABAPENTIN 300 MG (NEURONTIN) CAP PO SCH ×3 (09:49→20:24)
[2016-07-27] MEDS: cefTRIAXone INJECTION 2,000 MG in NS (IVPB) 50 ML IV SCH (09:49)
--- NOTE | 2016-07-27 10:24 | Cardiology Progress Note ---
Subjective Subjective/Events-last exam Patient sitting on commode. No new complaints. Denies any CP or dyspnea. Objective-Cardiology Exam Last Set of Vital Signs Vital Signs 07/23/16 07/27/16 04:00 08:00 Temp 99.4 Pulse 80 Resp 20 B/P (MAP) 157/70 Pulse Ox 92 O2 Delivery High Flow N/C O2 Flow Rate 4.50 FiO2 50 Capillary Refill : Less Than 3 Seconds I&O Intake and Output 07/27/16 00:00 Intake Total 2364 ml Output Total 656 ml Balance 1708 ml Intake Oral 1120 ml IV Total 1244 ml Output Urine Total 400 ml Stool Total 250 ml Urine/Stool Mix 6 ml # Bowel Movements 4 General: Alert, Oriented X3, Cooperative, Severe Distress HEENT: Atraumatic, PERRLA Neck: Supple, No JVD, No Thyromegaly Lungs: Clear to Auscultation, Normal Air Movement Heart: Regular Rate, Normal S1, Normal S2, No Murmurs Abdomen: Normal Bowel Sounds, Soft, No Tenderness, Other Extremities: No Clubbing, No Cyanosis, No Edema Skin: No Rashes, No Significant Lesion Neuro: Normal Gait Psych/Mental Status: Mental Status NL, Mood NL Results Lab Laboratory Tests 07/27/16 05:30 A/P-Cardiology Admission Diagnosis Severe sepsis Cardiomegaly HTN Thrombocytopenia Assessment/Plan Severe sepsis, Strep pneumoniae, thrombocytopenia today, underwent CT scan of the chest, continue with antibiotics, KALIN revealed no vegetation on valve. Continue to monitor. Acute respiratory failure, Chest x-ray showed atelectasis, questionable effusion , underwent CT scan of the chest, responded to one dose of Lasix. Echo showed preserved LV function. Thrombocytopenia- history of ITP with splenectomy. Continue to monitor. 2.8 cm hypoechoic nodule within or around the pancreatic neck/body junction area , MRI nondiagnostic, followed by primary care physician DM Hypertension, had transient episode of hypotension, continue to monitor closely. ARF- continue to monitor renal function closely DM- management by PCP Chronic BLE weakness of unknown etiology- patient reports workup currently in progress with PCP as outpatient Low back pain Morbid obesity, probably underlying NABIL, recommend sleep study as outpatient. Right arm weakness and slurred speech- improved. CT Head revealed subtle hypodense nonspecific lesion within the left periventricular white matter in the posterior left frontal area.Better evaluation with MRI is suggested. H/O splenectomy, cholecystectomy, appendectomy Clinical Quality Measures DVT/VTE Risk/Contraindication: Risk Factor Score Per Nursin RFS Level Per Nursing on Admit: 3=High Stroke: Date of last known well: July 21, 2016 GALLO TESFAYE July 27, 2016 10:24
--- NOTE | 2016-07-27 11:43 | Physical Therapy Daily Note ---
PT Daily Note-Current Subjective Patient in bed pre tx, participates in therapy reluctantly. Patient has 10/10 back pain. Patient tries to refuse but with encouragement from therapy and her she participates. Appearance Patient in recliner post tx with nurse call, phone, tray, in the room. Mental Status Patient Orientation: Normal For Age Attachments: Oxygen, IV Transfers Functional [place] Measure 0=Not Assessed/NA 4=Minimal Assistance 1=Total Assistance 5=Supervision or Setup 2=Maximal Assistance 6=Modified [place] 3=Moderate Assistance 7=Complete IndependenceIRFPAI Quality Coding Scale 6 Independent with activity with or without an assistive device 5 Patient requires set up or clean up by helper. Patient completes activity by themselves 4 Supervision or touching assist (CGA). [place] provide cues , steadying assist 3 The helper provides less than half the effort to complete the activity 2 The helper provides more than half the effort to complete the activity 1 Dependent. The helper does all the effort to complete an activity 7 Patient refused to complete or attempt activity 9 The patient did not perform the activity before the current illness or injury 88 Not attempted due to Medical conditions or safety concerns Transfers (B, C, W/C) (FIM): 2 Scootin Rollin Supine to/from Sit: 2 Sit to/from Stand: 4 Gait Training Gait (FIM): 1 Distance: 5' Gait Level of Assist: 4 Gait Persons Needed: 1 Gait Assistive Device: FWW slow, antalgic Exercises Seated Therapy Exercises: Ankle pumps, Long arc quads, Hip flexion Seated Reps: 10 Treatments bed mobility and transfers, ambulation, functional strengthening Assessment Current Status: Poor Progress no change in mobility PT Actuarial [employer]ship Goals Shelter Goals PT Shelter Goals Time Frame: July 28, 2016 Transfers (B,C,W/C) (FIM): 6 Gait (FIM): 6 PT Plan Problem List Problem List: Activity Tolerance, Functional Strength, Safety, Balance, Gait, Transfer, Bed Mobility, ROM Treatment/Plan Treatment Plan: Continue Plan of Care Treatment Plan: Bed Mobility, Education, Functional Activity Unique, Functional Strength, Gait, Safety, Therapeutic Exercise, Transfers Treatment Duration: July 28, 2016 Visits Per Week: 5-6 Safety Risks/Education Patient Education: Gait Training, Transfer Techniques, Correct Positioning, Safety Issues Teaching Recipient: Patient Teaching Methods: Demonstration, Discussion Response to Teaching: Reinforcement Needed Time/GCodes Time In: 1115 Time Out: 1130 Total Billed Treatment Time: 15 Total Billed Treatment 1 visit FA Angel' ENRRIQUE ROJO PT July 27, 2016 11:43
[2016-07-27 12:35] VITALS: BP 165/71
--- NOTE | 2016-07-27 13:38 | Progress Note-Hospitalist ---
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 She grew streptococcal pneumonia from both her peripheral blood cultures. In putting all the pieces together she had a splenectomy at age 10 at [facility] as a result of ITP. With the yazidism of the pneumococcal vaccines she was apparently never immunized. It is also not clear what her usual platelet count runs. I discussed this with Dr. Morrissey from the cancer center. He will lay down recommendations relative to pneumococcal vaccine, desirable platelet count, and the possibility of scanning for accessory spleen tissue. These concerns were relayed to the patient and her . Physical exam: She is alert and oriented. She has been up on her feet in the room. Lungs are clear to auscultation. CV is regular without murmur. Abdomen is obese. Hands and feet appear puffy. Impression: Strep pneumonia sepsis. 2.status remote splenectomy without pneumococcal vaccine. 3.morbid obesity. 4.elevated serum ammonia raising the possibility of Valerio and cirrhosis. Plan: Consult Dr. Morrissey. Anticipate the possibility of discharge tomorrow. Labs Laboratory Tests 07/26/16 04:05 07/27/16 05:30 ROMEL CARBAJAL MD July 27, 2016 13:38
--- NOTE | 2016-07-27 14:06 | Occupational Ther Daily Note ---
OT Current Status-Daily Note Subjective Pt. in bed. States that she is exhausted, and has been up for two hours. Appearance OT offered to assist pt. out of bed one more time for continued therapy. Pt. declines. Mental Status/Objective Patient Orientation: Person, Place Functional Alto Measure 0=Not Assessed/NA 4=Minimal Assistance 1=Total Assistance 5=Supervision or Setup 2=Maximal Assistance 6=Modified Alto 3=Moderate Assistance 7=Complete Alto Other Treatment Pt. and spouse educate OT on pt's previous history with this illness. OT educates pt. on what rehab means, and whether or not they think that pt. can tolerate it. Educate them that it is 3 hours per day. They verbalize understanding. Spouse questions whether or not pt.'s insurance will cover it at this time. OT to talk with geriatric social worker. Pt. is educated on purpose of UE strengthening. She is provided with therapy sponge and theraband. OT demonstrates exercises for her, and lets her know importance of performing these tasks, as pt. has considerable swelling in both hands, and weakness in bilateral UE . Pt. verbalizes understanding, and states that she will do the exercises after she has rested. Pt. begins to fall asleep. All needs met in room. Will continue to monitor pt. Spouse states that pt. was able to walk into shower earlier today. This is progress. However, nursing states that pt. took two people assist and was in pain from back. Education OT Patient Education: Correct positioning, Exercise program, Progress toward Goal/Update tx plan, Purpose of tx/functional activities, Reviewed precautions, Rehab process Teaching Recipient: Patient, Significant Other Teaching Methods: Demonstration, Discussion Response to Teaching: Verbalize Understanding, Return Demonstration OT Short Term Goals Short Term Goals 1=Demonstrate adherence to instructed precautions during ADL tasks. 2=Patient will verbalize/demonstrate understanding of assistive devices/ modifications for ADL. 3=Patient will improve strength/tolerance for activity to enable patient to perform ADL's. OT Chcf Goals Chcf Goals Time Frame: August 06, 2016 Eating (FIM): 6 Grooming(FIM): 6 Upper Body Dressing(FIM): 5 Lower Body Dressing(FIM): 5 Toilet/Commode Transfer(FIM): 6 Additional Goals: 1-Demonstrate ADL Tasks, 2-Verbalize Understanding, 3- ImproveStrength/Unique 1=Demonstrate adherence to instructed precautions during ADL tasks. 2=Patient will verbalize/demonstrate understanding of assistive devices/ modifications for ADL. 3=Patient will improve strength/tolerance for activity to enable patient to perform ADL's. OT Education/Plan Problem List/Assessment Assessment: Decreased Activ Tolerance, Decreased UE Strength, Dependent Transfers, Impaired Bed Mobility, Impaired I ADL's, Impaired Self-Care Skills, Restricted Funct UE ROM Pt to benefit from skilled OT intervention for ADL training, transfers, strengthening, and home safety education to maximize level of function and allow safe return home. Discharge Recommendations Plan/Recommendations: Continue POC Comment Pt. would benefit from inpatient rehab. However, unsure if she can tolerate this or not. Pt. is not ready to discharge home with spouse assist yet. Treatment Plan/Plan of Care Treatment,Training & Education: Yes Patient would benefit from OT for education, treatment and training to promote independence in ADL's, mobility, safety and/or upper extremity function for ADL' s. Plan of Care: ADL Retraining, Functional Mobility, UE Funct Exercise/Act Treatment Duration: August 06, 2016 Visits Per Week: 5 Agreement: Yes Rehab Potential: Fair Time/GCodes Start Time: 13:15 Stop Time: 13:35 Total Time Billed (hr/min): 20 Billed Treatment Time 1, EX MARQUES CAMPUZANO OT July 27, 2016 14:06
--- NOTE | 2016-07-27 15:48 | Cardiology Progress Note ---
Subjective Subjective/Events-last exam patient is feeling better, breathing better, denied any chest pain, chest x-ray showed persistent questionable infiltrate Review of Systems General: No Chills, No Night Sweats, No Fatigue, No Malaise, No Appetite, No Other HEENT: No Head Aches, No Visual Changes, No Eye Pain, No Ear Pain, No Dysphasia , No Sinus Congestion, No Post Nasal Drip, No Sore Throat, No Other Pulmonary: Dyspnea, No Cough, No Pleuritic Chest Pain, No Other Cardiovascular: No: Chest Pain, Edema, Lt Headedness, Orthopnea, Other, Palpitations, Paroxysmal Noc. Dyspnea Objective-Cardiology Exam Last Set of Vital Signs Vital Signs 07/23/16 07/27/16 04:00 12:35 Temp 99.6 Pulse 80 Resp 16 B/P (MAP) 165/71 Pulse Ox 92 O2 Delivery Nasal Cannula O2 Flow Rate 4.50 FiO2 50 Capillary Refill : Less Than 3 Seconds I&O Intake and Output 07/27/16 00:00 Intake Total 2364 ml Output Total 656 ml Balance 1708 ml Intake Oral 1120 ml IV Total 1244 ml Output Urine Total 400 ml Stool Total 250 ml Urine/Stool Mix 6 ml # Bowel Movements 4 General: Alert, Oriented X3, Cooperative, Severe Distress HEENT: Atraumatic, PERRLA Neck: Supple, No JVD, No Thyromegaly Lungs: Clear to Auscultation, Normal Air Movement Heart: Regular Rate, Normal S1, Normal S2, No Murmurs Abdomen: Normal Bowel Sounds, Soft, No Tenderness, Other Extremities: No Clubbing, No Cyanosis, No Edema Skin: No Rashes, No Significant Lesion Neuro: Normal Gait Psych/Mental Status: Mental Status NL, Mood NL Results Lab Laboratory Tests 07/27/16 05:30 A/P-Cardiology Admission Diagnosis Severe sepsis Cardiomegaly HTN Thrombocytopenia Assessment/Plan Status post severe sepsis with strep pneumonia, receiving antibiotics, improving , he did not show any vegetation. Status post respiratory failure, better at this time. Receiving antibiotics. Continue to monitor Thrombocytopenia- history of ITP with splenectomy. Continue to monitor. 2.8 cm hypoechoic nodule within or around the pancreatic neck/body junction area , MRI nondiagnostic, followed by primary care physician DM Hypertension, had transient episode of hypotension, continue to monitor closely. Status post acute renal failure, improved, continue to monitor renal function DM- management by PCP Chronic BLE weakness of unknown etiology- patient reports workup currently in progress with PCP as outpatient Low back pain Morbid obesity, probably underlying NABIL, recommend sleep study as outpatient. Right arm weakness and slurred speech- improved. CT Head revealed subtle hypodense nonspecific lesion within the left periventricular white matter in the posterior left frontal area.Better evaluation with MRI is suggested. H/O splenectomy, cholecystectomy, appendectomy Clinical Quality Measures DVT/VTE Risk/Contraindication: Risk Factor Score Per Nursin RFS Level Per Nursing on Admit: 3=High Stroke: Date of last known well: July 21, 2016 IRENE SUMMERS MD July 27, 2016 15:48
[2016-07-27 16:00] VITALS: BP 147/67
[2016-07-28] VITALS: BP 177/75
[2016-07-28] MEDS: ACYCLOVIR 400 MG TABLET (ZOVIRAX) PO SCH ×2 (05:36→10:19)
[2016-07-28] MEDS: ONDANSETRON 4 MG/2 ML (SDV) Z0FRAN IV PRN (05:37)
[2016-07-28 05:53] LABS: MEAN CORPUSCULAR HEMOGLOBIN 30 PG (25-34); MEAN CORPUSCULAR HGB CONC 31 G/DL (32-36); MEAN CORPUSCULAR VOLUME 94 FL (80-99); PLATELET COUNT 68 10^3/uL (130-400); RED BLOOD COUNT 3.75 10^6/uL (4.35-5.85); RED CELL DISTRIBUTION WIDTH 15.7 % (10.0-14.5); WHITE BLOOD COUNT 19.5 10^3/uL (4.3-11.0)
--- NOTE | 2016-07-28 05:55 | CONSULTATION REPORT ---
DATE OF SERVICE: 07/27/2016 The patient is admitted to room 428. REFERRING PHYSICIAN: Tita Subramanian DO. PRIMARY PHYSICIAN: Talat Torres MD. IMPRESSION: 1. A 50-year-old female with a history of ITP with bleeding diagnosed at the age of 6 years. Status post splenectomy as no response to the standard treatments at that time. The patient or her family including her parents is unclear if she received any vaccinations at that time. 2. History of hepatitis C probably related to transfusions. Status post treatment with interferon and ribavirin approximately 7 or 8 years ago with clearing of virus. 3. Admitted with pneumococcal sepsis requiring aggressive fluid resuscitation as well as antibiotic therapy, currently improving. 4. Thrombocytopenia with chronic immune thrombocytopenia. The patient and the family indicated that her baseline platelet count is in the 70,000 plus range which had dropped during the hospitalization due to sepsis and is starting to improve now. 5. History of upper abdominal/krystle hepatis lymphadenopathy with fullness of pancreatic head, rule out mass lesion. 6. Evidence of nodularity of the liver indicating cirrhosis by CT scan. RECOMMENDATIONS: 1. Reviewed with the patient and family the increased risk of overwhelming infection with encapsulated organisms like pneumococci, meningococci and haemophilus influenzae. 2. If patient has not been vaccinated for pneumococci including the Prevnar 13 or the 23 valent vaccine, she would benefit from it. She should also consider the meningococcal and haemophilus influenzae type B vaccines. 3. I informed the patient and her family to avoid any live vaccines especially the influenza live vaccine. 4. A recommended vaccine list was given to them based on the up-to-date. 5. The patient has been scheduled for gastroenterology evaluation with Dr. Lam regarding the upper abdominal lymphadenopathy and prominent pancreatic head. She was instructed to keep this appointment. 6. Continue treatment of pneumococcal sepsis as you are doing and monitor platelet count serially. 7. If her platelet count returns back to baseline of more than 70,000 range, she does not need any hematology followup, but if the platelet count is dropping, she may need hematology followup which could be scheduled later on an outpatient basis. BRIEF HISTORY: The patient is a 50-year-old female with a remote history of ITP and splenectomy, who was admitted to the hospital from the Emergency Room "not feeling well". She was noted to be in sepsis with significantly elevated lactic acid level and both the blood cultures growing Strep pneumoniae. She was admitted to the intensive care unit with aggressive fluid resuscitation and broad spectrum antibiotic therapy until the identification of the bacteria. Since then, the antibiotic has been changed to Rocephin and has been continuing this. Because of history of splenectomy, ITP and overwhelming sepsis, hematology consultation was requested. PAST MEDICAL HISTORY: Significant for ITP with bleeding diagnosed at the age of 6 years and treated at [facility]. As she did not respond to the standard treatment and was bleeding, she underwent a splenectomy soon thereafter. She has managed up to now without serious infections. She does get usual infections which are managed on an outpatient basis. The patient was unsure about any of the vaccinations for pneumococci, meningococci or haemophilus influenza type B. Other medical history includes hypertension for several years and is on treatment for this. Diagnosed with diabetes mellitus type 2 within the last 1 or 2 years and is on diet control. She denied any coronary artery disease or other major medical problems. PRIOR SURGERIES: Include splenectomy before the age of 8 years, C-sections and hysterectomy in the past. Her current medications and allergies were reviewed in the electronic medical record. SOCIAL HISTORY: The patient is [place], [place]. She has adult sons, one of them lives in [place], [place] and the other in [place], [place]. She denied any significant tobacco, alcohol or recreational drug use. 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 FAMILY HISTORY: Unremarkable with no major medical problems in the family. PHYSICAL EXAMINATION: GENERAL: Today, showed a middle-aged female, obese, somnolent, but easily arousable, does not appear in any acute distress. VITAL SIGNS: Temperature was 97.9, pulse rate of 80, respirations 20, blood pressure 147/67 with oxygen saturation of 96% on oxygen at 4.5 liters by nasal canula. HEENT: Normocephalic, extraocular muscles intact, area of ecchymosis on the right prominence, oral mucosa moist. NECK: Supple with no JVD. No cervical, supraclavicular or axillary lymphadenopathy palpable. CHEST: Symmetrical. LUNGS: With slightly diminished breath sounds bilaterally without wheezes or rales. CARDIOVASCULAR: Regular in rate and rhythm. No murmurs or gallops heard. ABDOMEN: Obese, soft, nontender, with no hepatosplenomegaly or other masses palpable. EXTREMITIES: Showed a PICC line in the right arm medially. Several areas of ecchymosis from lab draws noted. No petechia noted. NEUROLOGIC: Showed no focal motor deficits. LABORATORY DATA: CBC done today showed white blood count of 18.2, hemoglobin 11.1 with a platelet count of 55,000. The white blood cell count has been gradually declining from a high of 57.8 on 07/22/2016. Platelets count at the time of admission was 38,000 but the kenia was on 07/25/2016 at 25,000. Chemistry panel done today showed normal electrolytes. BUN was 15 and creatinine 0.63 with GFR more than 60 mL per minute. Nonfasting glucose was 127. Blood cultures done at the time of admission from left and right side was positive for Streptococcus pneumoniae. Nasal swabs for influenza was negative. Thank you for allowing me to participate in this patient's care. I will follow the patient with you and make appropriate recommendations. Job ID: [id number] DocumentID: [id number] Dictated Date: 07/27/2016 17:25:10 Workers' Compensation Mediator Date: 07/28/2016 03:42:27 Dictated By: DELROY SCHMITT MD
[2016-07-28 06:17] LABS: ANION GAP 8 MMOL/L (5-14); BLOOD UREA NITROGEN 12 MG/DL (7-18); BUN/CREATININE RATIO 18; CALCIUM 8.2 MG/DL (8.5-10.1); CARBON DIOXIDE 32 MMOL/L (21-32); CHLORIDE 99 MMOL/L (98-107); CREATININE SERUM 0.67 MG/DL (0.60-1.30); GFR ESTIMATED > 60; GLUCOSE 125 MG/DL (70-105); POTASSIUM 3.5 MMOL/L (3.6-5.0); SODIUM 139 MMOL/L (135-145)
--- NOTE | 2016-07-28 07:27 | Pulmonary Progress Note ---
Exam Exam Vital Signs Date Time Temp Pulse Resp B/P (MAP) Pulse Ox O2 Delivery O2 Flow Rate FiO2 07/28/16 06:57 92 4.50 07/28/16 00:00 99.3 86 18 177/75 93 Nasal Cannula 4.50 07/27/16 20:00 4.50 07/27/16 18:58 92 4.50 07/27/16 16:00 97.9 80 20 147/67 96 Nasal Cannula 4.50 07/27/16 12:35 99.6 80 16 165/71 92 Nasal Cannula 4.50 07/27/16 08:30 92 4.50 07/27/16 08:00 99.4 80 20 157/70 92 High Flow N/C 4.50 07/27/16 07:48 4.50 I & O 07/28/16 07:00 Intake Total 3430 ml Output Total 1300 ml Balance 2130 ml General Appearance: Obese, Other (retching) Neck: Supple Respiratory: No Accessory Muscle Use, No Respiratory Distress Cardiovascular: Regular Rate, Rhythm, No Gallop, No Murmur Capillary Refill: Less Than 3 Seconds Gastrointestinal: non tender (no guarding or rebounding), soft Extremity: Pedal Edema Neurologic/Psychiatric: Alert, Depressed Affect Skin: Normal Color, Warm/Dry Lymphatic: No Adenopathy Results Lab Laboratory Tests 07/27/16 05:30 07/28/16 05:08 Assessment/Plan Assessment/Plan Sepsis with strep bacteremia there is no signs of endocarditis on echo -Rocephin -s/p KALIN Acute respiratory distress - much improved Acute renal failure - resolved ?pancreatic mass -US liver pancreas and MRI are not definitive - will need outpatient EUS Hx of splenectomy and ITP Morbid obesity Thrombocytopenia with to history of splenectomy Clinical Quality Measures DVT/VTE Risk/Contraindication: Risk Factor Score Per Nursin RFS Level Per Nursing on Admit: 3=High Stroke: Date of last known well: July 21, 2016 NAIDA HUGGINS DO July 28, 2016 07:27
[2016-07-28 08:00] VITALS: BP 131/64
--- NOTE | 2016-07-28 08:35 | Cardiology Progress Note ---
Subjective Subjective/Events-last exam Patient is sitting up in chair. Complains of low back pain. Denies any CP or dyspnea. Review of Systems General: No Night Sweats, Fatigue, No Malaise, No Appetite HEENT: No Visual Changes, No Dysphasia, No Sore Throat Pulmonary: No Dyspnea, No Cough, No Pleuritic Chest Pain Cardiovascular: No: Chest Pain, Edema, Palpitations Gastrointestinal: No: Abdominal Pain, Nausea, Vomiting Genitourinary: No Dysuria, No Frequency Musculoskeletal: No: back pain, neck pain Neurological: No: Change in speech, Confusion, Numbness, Weakness Objective-Cardiology Exam Last Set of Vital Signs Vital Signs 07/23/16 04:00 FiO2 50 Capillary Refill : Less Than 3 Seconds I&O Intake and Output 07/28/16 00:00 Intake Total 3480 ml Output Total 950 ml Balance 2530 ml Intake Oral 1880 ml IV Total 1600 ml Output Urine Total 950 ml # Voids 5 # Bowel Movements 4 General: Alert, Oriented X3, Cooperative, Severe Distress HEENT: Atraumatic, PERRLA Neck: Supple, No JVD, No Thyromegaly Lungs: Clear to Auscultation, Normal Air Movement Heart: Regular Rate, Normal S1, Normal S2, No Murmurs Abdomen: Normal Bowel Sounds, Soft, No Tenderness, Other Extremities: No Clubbing, No Cyanosis, No Edema Skin: No Rashes, No Significant Lesion Neuro: Normal Gait Psych/Mental Status: Mental Status NL, Mood NL Results Lab Laboratory Tests 07/28/16 05:08 A/P-Cardiology Admission Diagnosis Severe sepsis Cardiomegaly HTN Thrombocytopenia Assessment/Plan Status post severe sepsis with strep pneumonia, receiving antibiotics, improving , KALIN did not show any vegetation on valve. Status post respiratory failure, better at this time. Receiving antibiotics. Continue to monitor Thrombocytopenia- history of ITP with splenectomy. Continue to monitor. 2.8 cm hypoechoic nodule within or around the pancreatic neck/body junction area , MRI nondiagnostic, followed by primary care physician DM Hypertension, had transient episode of hypotension, continue to monitor closely. Status post acute renal failure, improved, continue to monitor renal function DM- management by PCP Chronic BLE weakness of unknown etiology- patient reports workup currently in progress with PCP as outpatient Low back pain Morbid obesity, probably underlying NABIL, recommend sleep study as outpatient. Right arm weakness and slurred speech- improved. CT Head revealed subtle hypodense nonspecific lesion within the left periventricular white matter in the posterior left frontal area.Better evaluation with MRI is suggested. H/O splenectomy, cholecystectomy, appendectomy Clinical Quality Measures DVT/VTE Risk/Contraindication: Risk Factor Score Per Nursin RFS Level Per Nursing on Admit: 3=High Stroke: Date of last known well: July 21, 2016 Supervisory-Addendum Brief Supervisory Addendum Participated in pt care: history, MDM, physical Personally performed: exam, history, MDM Care discussed with: AARON Results interpretation: agree with documentation Notes: This is Dr. Meyer, I have seen and evaluated the patient with Yaritza, agree with the current note, I performed physical examination and interviewed the patient, her lungs were clear to auscultation bilaterally, heart is regular rate and rhythm, feeling better, leukocytosis are still present, improving platelet count, still receiving antibiotic, being transferred for acute rehabilitation. I will continue on current medications, no changes were recommended, KALIN results were discussed again with the patient and her family. YARITZA TESFAYE July 28, 2016 08:35 IRENE MEYER MD July 28, 2016 11:19
[2016-07-28] MEDS: GABAPENTIN 300 MG (NEURONTIN) CAP PO SCH (08:39)
[2016-07-28] MEDS: cefTRIAXone INJECTION 2,000 MG in NS (IVPB) 50 ML IV SCH (08:39)
[2016-07-28] MEDS: LACTULOSE SYRUP 10GM/15ML (ENULOSE) 30ML UDC PO SCH ×2 (08:40→08:42)
[2016-07-28] MEDS: MENTHOL/ZINC OXIDE (CALMOSEPTINE) 113 GM TUBE TOP SCH (08:40)
[2016-07-28] MEDS ORDERED: LACT20SO2 PO (09:49)
[2016-07-28] MEDS ORDERED: CEFT2FRO2 IV (09:49)
[2016-07-28] MEDS ORDERED: ACET-77 PO (09:49)
[2016-07-28] MEDS ORDERED: MENT71OI TOP (09:49)
[2016-07-28] MEDS ORDERED: TRAM50TA2 PO (09:49)
--- NOTE | 2016-07-28 09:52 | Discharge Summary-Hospitalist ---
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 consulting hematology Volume overload and vascular congestion on chest x-ray will consult cardiology due to the fact of high volume fluid resuscitation will place her at risk for congestive heart failure Diabetes mellitus Morbid obesity likely obstructive sleep apnea undiagnosed Leukocytosis Thrombocytopenia with to history of splenectomy Discharge Diagnosis Assessment: Severe sepsis with Strep pneumoniae bacteremia s/p aggressive IV fluid resuscitation in addition high dose Rocephin s/p DC empiric broad spectrum Zosyn and vancomycin due to ARF and culture results Respiratory insufficiency following Dilaudid 2mg IV given in ICU last week requiring biPAP now DC 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 Volume overload and vascular congestion on chest x-ray on admit, cardiology consulted due to the fact of high volume fluid resuscitation will place her at risk for congestive heart failure Diabetes mellitus Morbid obesity likely obstructive sleep apnea undiagnosed Leukocytosis but improved clinical picture Thrombocytopenia with to history of splenectomy s/p New ARF resolved now Liver cirrhosis with mild hepatic encephalopathy due to elevated ammonia Pancreatic "fullness" needs EUS by Dr Lam Pneumovax and H flu vaccines need to be performed due to splenectomy since she has never had either one and will perform that prior to DC. Noted events over weekend. Ammonia level was high and now having BM due to Lactulose and doing better. KALIN is scheduled for today then will be on road to recovery. Checked meds and labs Creat improved since DC Vanc and now normal Abdominal Ultrasound and CT showed cirrhosis and will need EUS to evaluate for nodules on liver Reviewed cardiology and pulmonology consult BCx + for Strep Pneumoniae No fever, vital signs stable, pleasant, much improved, family at the bedside Regular rate and rhythm, clear to all station bilaterally diminished in the bases No edema Laboratory Tests 07/26/16 04:05 Assessment: Severe sepsis with Strep pneumoniae bacteremia s/p aggressive IV fluid resuscitation in addition high dose Rocephin s/p DC empiric broad spectrum Zosyn and vancomycin due to ARF and culture results Respiratory insufficiency following Dilaudid 2mg IV given in ICU last week requiring biPAP now DC 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 Torres at [facility] the presents to the emergency room after waking up at 4 o'clock this morning trying to get to the bathroom and was not feeling well. She was doing well until the night before last when she felt her heart beating in her head but then it actually improved enough for her to go to work yesterday and she finished the day although very tired. She doesn't report a fever or chills at home until this morning and she also told me she was just treated for UTI and completed antibiotics 1 month ago. 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 She has been given the aggressive IV fluid resuscitation for severe sepsis in the emergency room but she does have vascular congestion on chest x-ray so we'll consult cardiology for volume overload with hypertension from severe sepsis. Her platelet count is 38,000 as forewarned by her that she has abnormal complete blood count levels due to splenectomy but we'll consult Dr. Wesley due to ITP history. Critical illness will require pulmonary critical care specialty consultation Dr. Wilkinson will see her in the near future. She is placed on empiric antibiotic of vancomycin and Zosyn and will be monitored closely in the ICU for any need of pressor therapy and/or additional multisystem organ failure with intubation that could result from volume overload. She reports the back pain has been the most severe and does report nausea and loss of appetite the last several days. Even though the urinalysis appeared to be normal I suspect pyelonephritis with bacteremia due to recent UTI 1 month ago. Note from 07/28/16: Patient doing well bowel movements are normal and overall gaining strength Inpatient rehabilitation has except the patient so I placed discharge orders Rocephin 2 g IV daily for an additional 7 days is indicated and she has PICC line already so will continue that at discharge to inpatient rehabilitation Overall feeling much better and I appreciate Dr. Morrissey and the review of all the vaccines that she needs in place No fever, vital signs stable, pleasant, up in chair, at bedside Regular rate and rhythm, clear to auscultation bilaterally but minimal breath sounds in the bases No edema Hospital course: Patient had a lengthy hospital course most of it was in the ICU due to severe sepsis due to pneumococcal bacteremia likely due to strep pneumoniae from infiltrate on chest x-ray. Fulminant sepsis due to splenectomy status since she was 6 years old and that was removed for ITP treatment. She was given aggressive IV fluids per severe sepsis protocol and pulmonary and cardiology consultations ensued considering volume overload with chest x-ray and elevated BNP. Broad spectrum antibiotics were narrowed rapidly once blood cultures returned with strep pneumoniae and she did have significant respiratory insufficiency that required biPAP after Dilaudid was given so all narcotics were minimized from that point on. Cirrhosis was noted on CT scan Dr. Srivastava evaluated MRI showing fullness in the pancreatic head so that will be fully evaluated with an esophageal ultrasound by Dr. Lam and will be arranged as an outpatient. All vaccines were reviewed and organized for administration prior to discharge and she was doing well and was strong enough to go down to inpatient rehabilitation all medications were reviewed and blood sugar checks were monitored. Discharge Summary Discharge Physical Examination Allergies: Coded Allergies: metoclopramide (Unverified Allergy, Unknown, 07/21/16) Vitals & I&Os Vital Signs Date Time Temp Pulse Resp B/P (MAP) Pulse Ox O2 Delivery O2 Flow Rate FiO2 07/28/16 08:00 98.1 82 20 131/64 92 Nasal Cannula 4.50 07/23/16 04:00 50 Hospital Course Labs (last 24 hrs) Laboratory Tests 07/27/16 11:01: Glucometer 135H 07/27/16 15:53: Glucometer 142H 07/27/16 21:07: Glucometer 159H 07/28/16 05:08: White Blood Count 19.5H, Red Blood Count 3.75L, Hemoglobin 11.1L, Hematocrit 35 , Mean Corpuscular Volume 94, Mean Corpuscular Hemoglobin 30, Mean Corpuscular Hemoglobin Concent 31L, Red Cell Distribution Width 15.7H, Platelet Count 68L, Mean Platelet Volume , Sodium Level 139, Potassium Level 3.5L, Chloride Level 99 , Carbon Dioxide Level 32, Anion Gap 8, Blood Urea Nitrogen 12, Creatinine 0.67 , Estimat Glomerular Filtration Rate > 60, BUN/Creatinine Ratio 18, Glucose Level 125H, Calcium Level 8.2L 07/28/16 05:28: Glucometer 114H Microbiology 07/21/16 Blood Culture - Final, Complete Streptococcus Pneumoniae 07/21/16 Influenza Types A,B Antigen (JEISON) - Final, Complete Pending Labs Laboratory Tests 07/28/16 05:08: White Blood Count 19.5, Red Blood Count 3.75, Hemoglobin 11.1, Hematocrit 35, Mean Corpuscular Volume 94, Mean Corpuscular Hemoglobin 30, Mean Corpuscular Hemoglobin Concent 31, Red Cell Distribution Width 15.7, Platelet Count 68, Mean Platelet Volume , Sodium Level 139, Potassium Level 3.5, Chloride Level 99 , Carbon Dioxide Level 32, Anion Gap 8, Blood Urea Nitrogen 12, Creatinine 0.67 , Estimat Glomerular Filtration Rate > 60, BUN/Creatinine Ratio 18, Glucose Level 125, Calcium Level 8.2 07/28/16 05:28: Glucometer 114 Discharge Home Medications: Active Scripts Active Ceftriaxone 2 gm Piggyback (Ceftriaxone Na/Dextrose,Iso) 2 Gm/50 Ml Froz.piggy 2 Gm IV DAILY 7 Days Calmoseptine Ointment (Menthol/Lanolin/Calamine/Znox) 71 Gm Oint 0 Gm TOP BID 30 Days Acetaminophen 500 Mg Tablet 1,000 Mg PO Q6H PRN 30 Days Tramadol HCl 50 Mg Tablet 50 Mg PO QID PRN 30 Days Lactulose 20 Gm/30 Ml Solution 30 Gm PO BID 30 Days Reported Erythromycin (Erythromycin Base) 250 Mg Tablet 250 Mg PO TID FILLED 06/09/16 #90 / STILL HAS SOME LEFT IN BOTTLE Novolog Flexpen (Insulin Aspart) 300 Units/3 Ml Solution SQ SLIDING/SCALE Ondansetron HCl 8 Mg Tablet 8 Mg PO Q6H PRN Pantoprazole Sodium 40 Mg Tablet.dr 40 Mg PO DAILY FILLED 05/21/16 #30 Klor-Con M10 (Potassium Chloride) 10 Meq Tab.er.prt 10 Meq PO DAILY FILLED 05/14/16 #30 Bumetanide 0.5 Mg Tablet 0.5 Mg PO DAILY Amitriptyline HCl 25 Mg Tablet 25 Mg PO DAILY Gabapentin 300 Mg Capsule 900 Mg PO HS TAKES 3 (300 MG) CAPSULES Gabapentin 300 Mg Capsule 600 Mg PO DAILY@1200 TAKES 2 (300 MG) CAPSULES Gabapentin 300 Mg Capsule 300 Mg PO DAILY Lisinopril 40 Mg Tablet 40 Mg PO DAILY Lantus (Insulin Glargine,Hum.rec.anlog) 100 Unit/1 Ml Vial 60 Unit SQ HS Lantus Solostar (Insulin Glargine,Hum.rec.anlog) 100 Unit/1 Ml Insuln.pen 50 Units SQ DAILY Instructions to patient/family Please see electonic discharge instructions given to patient. Clinical Quality Measures DVT/VTE Risk/Contraindication: Risk Factor Score Per Nursin RFS Level Per Nursing on Admit: 3=High Stroke: Date of last known well: July 21, 2016 NUHA LUCAS DO July 28, 2016 09:52
== END 2016-07-28 10:30 | DRG 871 ==
LOC: ER 09:36 → ICU 11:53 → 4TH 07-26 16:10
PROVIDERS: ADMIT Internal Medicine; ATTEND Internal Medicine
PROC: 02HV33Z Insertion of Infusion Device into Superior Vena Cava, Percutaneous Approach (ICD-10-PCS; principal; 2016-07-21)
DX: A40.3 Sepsis due to Streptococcus pneumoniae (principal); R65.20 Severe sepsis without septic shock; J18.9 Pneumonia, unspecified organism; T81.4XXA Infection following a procedure, initial encounter; K76.6 Portal hypertension; J96.00 Acute respiratory failure, unspecified whether with hypoxia or hypercapnia; N17.9 Acute kidney failure, unspecified; E87.2 Acidosis; Z68.42 Body mass index [BMI] 45.0-49.9, adult; E11.9 Type 2 diabetes mellitus without complications; G47.33 Obstructive sleep apnea (adult) (pediatric); E66.01 Morbid (severe) obesity due to excess calories; D69.6 Thrombocytopenia, unspecified; D72.829 Elevated white blood cell count, unspecified; Z90.81 Acquired absence of spleen; I10 Essential (primary) hypertension; M62.81 Muscle weakness (generalized); K59.09 Other constipation; Z79.4 Long term (current) use of insulin; I08.1 Rheumatic disorders of both mitral and tricuspid valves; R47.81 Slurred speech; I95.9 Hypotension, unspecified; R19.7 Diarrhea, unspecified; I08.3 Combined rheumatic disorders of mitral, aortic and tricuspid valves; Z86.19 Personal history of other infectious and parasitic diseases; K72.90 Hepatic failure, unspecified without coma
CPT/HCPCS: 36415; 36569; 51702; 70450; 70470; 71010; 74176; 74181; 76700; 76937; 80048; 80053; 81000; 82040; 82140; 82150; 82805; 82962; 83605; 83690; 83735; 83880; 84100; 84443; 84484; 85007; 85018; 85025; 85027; 85379; 85610; 85730; 87040; 87077; 87804; 93005; 93041; 93306; 93312; 93321; 93325; 94660; 94760; 96361; 96365; 96367; 96375; 96376

== ENCOUNTER 2016-07-28 10:30 | Inpatient (IN) | payer BC ==
[~2016-07-28] VITALS: Ht 170.2 cm; Wt 141.5 kg
[2016-07-28 10:30] VITALS: BP 151/75
--- NOTE | 2016-07-28 11:34 | Physical Therapy Evaluation ---
PT Evaluation-General Medical Diagnosis Admission Date July 28, 2016 at 10:30 Medical Diagnosis: sepsis Onset Date: July 21, 2016 Therapy Diagnosis Therapy Diagnosis: impaired mobility, strength, endurance Height/Weight Height (Feet): 5 Height (Inches): 7.00 Weight (Pounds): 315 Weight (Ounces): 6.0 Referral Physician: Percy Reason for Referral: Evaluation/Treatment Medical History Pertinent Medical History: DM, HTN, Neuropathy Additional Medical History Pt admitted with severe sepsis and possibly polynephritis Reviewed History: Yes Social History Home: Single Level Current Living Status: Spouse Entry Into Home: Stairs Without Railing PT Steps Into Home: 2 Prior/Core FIM Prior Level of Function Functional [place] Measure 0=Not Assessed/NA 4=Minimal Assistance 1=Total Assistance 5=Supervision or Setup 2=Maximal Assistance 6=Modified [place] 3=Moderate Assistance 7=Complete [place] Bed Mobility: 7 Transfers (B,C,W/C) (FIM): 7 Gait: 7 PT Evaluation-Current Subjective Patient in bed pre tx, agrees to PT, will be going down to the rehab floor, states she has pain 4/10 at rest and 9/10 with activity. Pt/Family Goals decrease back pain and walk better Objective Patient Orientation: Normal For Age Attachments: Oxygen 5L of O2 nasal canula ROM/Strength ROM Lower Extremities limited due to bilateral lower extremity swelling Strenght Lower Extremities NT due to pain from swelling but patient has at least a 3/5 with all movements Integumentary/Posture Integumentary Patient has bilateral lower extremity swelling, but not pitting Bowel Incontinence: No Bladder Incontinence: No Neuromuscular (Tone, Coordination, Reflexes) WNL Sensory Vision: Wears Glasses Hearing: Functional Sensation Right Lower Extremit: Impaired Sensation Left Lower Extremity: Impaired Sensation Lower Extremities peripheral neuropathy Transfers Functional [place] Measure 0=Not Assessed/NA 4=Minimal Assistance 1=Total Assistance 5=Supervision or Setup 2=Maximal Assistance 6=Modified [place] 3=Moderate Assistance 7=Complete IndependenceIRFPAI Quality Coding Scale 6 Independent with activity with or without an assistive device 5 Patient requires set up or clean up by helper. Patient completes activity by themselves 4 Supervision or touching assist (CGA). [place] provide cues , steadying assist 3 The helper provides less than half the effort to complete the activity 2 The helper provides more than half the effort to complete the activity 1 Dependent. The helper does all the effort to complete an activity 7 Patient refused to complete or attempt activity 9 The patient did not perform the activity before the current illness or injury 88 Not attempted due to Medical conditions or safety concerns Transfers (B, C, W/C) (FIM): 2 Scootin Rollin Roll Left to Right (QC): 2 Supine to/from Sit: 2 Sit to/from Stand: 2 bed t/f WC(FIM only if WC use): 4 Sit to Lying (QC): 2 Lying to Sitting/Side of Bed(Q: 2 Sit to Stand (QC): 2 Chair/Jis-lz-Mcaob Xfer(QC): 3 Car Transfer (QC): 88 Patient performs bed mobility with max assist (needs further instruction on how to log roll), sit to stand with max assist, and transfer with min/CGA. Patient needs cues for safety and hand placement. Gait Does the Patient Walk?: Yes Mode of Locomotion: Walk Anticipated Mode of Locomotion: Walk Gait (FIM): 2 Walk 10 feet (QC): 4 Walk 50 ft with 2 Turns(QC): 4 Walk 150 ft (QC): 88 Walking 10ft/uneven surface-QC: 88 Distance: 100' Gait Level of Assist: 4 Gait Persons Needed: 1 Gait Assistive Device: FWW Comments/Gait Description Patient can ambulate 100' with a rolling walker with Aleks/CGA over level surfaces (including 50' with at least 2 turns of 90 degrees), very very slow ambulation, she bears a lot of weight through her arms and is not safe for uneven surfaces yet. Wheelchair Training Does the Pt Use a Wheelchair?: Yes Wheelchair (FIM): 1 Distance: 20'x2 Wheelchair Level of Assist: 4 Wheel 50 ft with 2 turns (QC): 88 Wheel 150 ft (QC): 88 Type of Wheelchair: Manual Patient needs min assist to help propel even when using both legs to assist Stairs Stairs (FIM): 0 1 Step (curb) (QC): 88 4 Steps (QC): 88 12 Steps (QC): 88 If not tested on admit;explain Patient is not safe to go up and down even one step right now due to weakness and risk of falling. Balance Sitting Static: Fair Sitting Dynamic: Fair Standing Static: Fair Standing Dynamic: Fair Picking up an Object (QC): 88 Assessment/Needs Patient has impaired mobility, endurance, strength, general debility. Rehab Potential: Fair PT Short Term Goals Short Term Goals Time Frame: August 04, 2016 Transfers (B,C,W/C) (FIM): 3 Gait (FIM): 2 Gait Distance Comment: 120' Gait Level of Assist: 4 (CGA) PT Automatic Dry Starch Operator Goals Automatic Dry Starch Operator Goals PT Automatic Dry Starch Operator Goals Time Frame: August 18, 2016 Transfers (B,C,W/C) (FIM): 4 Sit to Lying (QC): 3 Lying-Sitting on Side/Bed(QC): 3 Sit to Stand (QC): 3 Rollin Roll Left to Right (QC): 3 Chair/Szm-zo-Txisn Xfer(QC): 4 (CGA) Car Transfer (QC): 4 Gait (FIM): 4 Distance: 150' Walk 10 feet (QC): 4 Walk 10ft-Uneven Surface(QC): 4 Walk 50ft with 2 Turns (QC): 4 Walk 150 ft (QC): 4 Gait Level of Assist: 4 (CGA) Gait Assistive Device: FWW Wheelchair (FIM): 5 Distance: 150' Wheelchair Level of Assist: 5 Wheel 50 feet with 2 turns (QC: 4 Stairs (FIM): 1 # of Steps: 1 1 Step (curb) (QC): 4 4 Steps (QC): 88 12 Steps (QC): 88 Stairs Level Of Assist: 4 Picking up an Object (QC): 88 PT Plan Problem List Problem List: Activity Tolerance, Functional Strength, Safety, Balance, Gait, Transfer, Bed Mobility, ROM Treatment/Plan Treatment Plan: Continue Plan of Care Treatment Plan: Bed Mobility, Education, Functional Activity Unique, Functional Strength, Group Therapy, Gait, Safety, Therapeutic Exercise, Transfers Treatment Duration: August 18, 2016 # of days/week 5-6 Visits Per Week: 10-11 Minutes/Day (M-F): 60-90 Minutes/Day (Sat/Arceo): 15-30 Pt/Family Agrees w/Plan: Yes Safety Risks/Education Patient Education: Gait Training, Transfer Techniques, Correct Positioning, W/ C Management, Safety Issues Teaching Recipient: Patient Teaching Methods: Demonstration, Discussion Response to Teaching: Reinforcement Needed Discharge Recommendations Plan Patient will perform bed mobility and transfer training, balance and endurance training, functional strengthening, stair training, gait training, and education , to improve functional mobility and independence at home. Therapy D/C Recommendations: Home w/ Family Support Time/GCodes Time In: 1030 Time Out: 1130 Total Billed Treatment Time: 60 Total Billed Treatment 1 visit [facility] 15' [facility] 15' FA 15' GT 15' ENRRIQUE ROJO PT July 28, 2016 11:34
[2016-07-28] MEDS ORDERED: ACETAMINOPHEN 500 MG TAB (TYLENOL) PO PRN (12:00)
[2016-07-28] MEDS ORDERED: GABAPENTIN 600 MG (NEURONTIN) TAB PO SCH (12:00)
[2016-07-28] MEDS ORDERED: CATHETER FLUSH 10 ML SYR IV PRN (12:00)
--- NOTE | 2016-07-28 12:42 | PM&R Post Admission Assessment ---
Post Admission Physician Asses The preadmission screen agrees with the post admission assessment that the patient is a good candidate for inpatient rehabilitation. The patient will have a comprehensive program of inpatient rehabilitation with a goal of maximizing level of functional independence prior to discharge home with [family]. The patient will have PT/OT ninety minutes per day, each discipline, five days a week for gait strengthening, conditioning, balance, ADLs , any patient/family/caregiver training necessary. Speech therapy to do cognitive assessment and treat as indicted. Rehabilitation nursing to assist with bowel, bladder, skin, wound care, medication administration, pain management. Cupola Man to assist with discharge planning, community reentry. SCD's for DVT prophylaxis. She appears to be well motivated to participate in three hours of therapy a day. She should be able to tolerate three hours of therapy a day from a medical standpoint. She should benefit from the three hours of therapy a day. She has a reasonable discharge plan, reasonable discharge rehabilitation goals and a supportive family. She has various comorbidities that need to be closely monitored with medications and treatments adjusted on a daily basis as needed. These include: DM Peripheral neuropathy Recent sepsis Barriers to discharge for this patient who had been independent prior to this are for her to be modified independent to supervision for ADLs and mobility skills prior to discharge home with family and HHC, so as to lessen the burden of the caregivers. Risks for this patient include: 1. Fall 2. Fracture 3. DVT 4. Pulmonary embolism 5. Wound infection 6. Skin breakdown 7. Contractures 8. Poorly controlled pain 9. Urinary retention 10. UTI 11. Respiratory infection 12. Aspiration 13. poorly controlled DM 14 Recurrent sepsis Estimated Length of Stay: 14 days Prognosis: Rehab prognosis appears good for goal of discharge home with family and HHC modified independent to supervision for ADLs and mobility skills. BEBO DAVID MD July 28, 2016 12:42
--- NOTE | 2016-07-28 12:54 | ST Cognitive Linguistic Eval ---
Speech Evaluation-General Medical Diagnosis sepsis Onset Date: July 21, 2016 Therapy Diagnosis Therapy Diagnosis: Cognitive Linguistic Function WNL Precautions Precautions/Isolations: Fall Prevention, Standard Precautions Referral Referring Physician: Dr. Frederick Torres Reason for Referral: Evaluation/Treatment Cognitive Evaluation Medical History Pertinent Medical History: DM, HTN, Neuropathy Reviewed History: Yes Social History Current Living Status: Spouse Speech PLF-Current Status Prior Level of Function The patient denied cognitive linguistic challenges prior to admission. Subjective The patient was recently admitted to [facility] with a diagnosis of debility. The patient greeted the clinician appropriately and was agreeable to participation in the cognitive linguistic evaluation. Language Eval: Auditory Comprehends Simple Yes/No Ques: Functional Indent/Objects Multiple [place]: Functional Ident/Pics in Multiple [place]: Functional Follows 1-Step Commands: Functional Follows Complex Directions: Functional Follows General Conversations: Functional Language Eval: Verbal Language Completes Spontaneous Greeting: Functional Produces Auto, Serial Info: Functional Imitates Simple Words/Phrases: Functional Word Finding: Functional Requests Basic Needs: Functional States Basic Personal Info: Functional Expresses Complex Ideas: Functional Cognitive Patient Orientation The patient was oriented to month, day of week, date, and year (independently). Objective Cognitive Domain Attention: WNL Memory: WNL Problem Solving: Functional Executive Functions: WNL Visuospatial Skills: WNL Clock Drawing Severity Rating: WNL Objective Impression The patient demonstrated cognitive linguistic skills within normal limits and appropriate for completion of ADL's. Communication/Social Cognition Comprehension: 6 Expression: 7 Social Interaction: 6 Problem Solvin Memory: 7 Speech Patient Assess Expression of Ideas/Wants: Expression (4) Understanding [place] Content: Understands (4) Brief Interview-Mental Status: Yes Repetition of Three Words: Three (3) Temporal Orientation: Year: Correct (3) Temporal Orientation: Month: Accurate within 5 days(2) Temporal Orientation: Day: Correct (1) Recall : Wear to say "Sock": Yes, no cue required (2) Recall : Color: Yes, no cue required (2) Recall : Bed: Yes, no cue required (2) Speech-Plan Treatment Plan Speech Therapy Treatment Plan: Discontinue ST Evaluation, only. Rehab Potential: Fair Safety Risks/Education Teaching Recipient: Patient, Family, Significant Other Teaching Methods: Discussion Response to Teaching: Verbalize Understanding Education Topics Provided: Results, Recommendations, Plan of Care Time Speech Therapy Time In: 11:30 (12:40) Speech Therapy Time Out: 11:38 (12:48) Total Billed Time: 16 Billed Treatment Time 11:30 to 11:38 12:40 to 12:48 (16 total minutes) 1, PANCHITO FORD July 28, 2016 12:54
--- NOTE | 2016-07-28 14:48 | Occupational Therapy Eval ---
OT Evaluation-General/PLF Medical Diagnosis Admission Date July 28, 2016 at 10:30 Medical Diagnosis: sepsis Onset Date: July 21, 2016 Therapy Diagnosis Therapy Diagnosis: decr self care, decr functional mobility, decr activity tolerance, weakness Height/Weight Height (Feet): 5 Height (Inches): 7.00 Weight (Pounds): 315 Weight (Ounces): 3.0 Precautions Precautions/Isolations: Fall Prevention, Standard Precautions Referral Physician: Percy Referral Reason: Evaluation/Treatment Medical History Pertinent Medical History: DM, HTN, Neuropathy Additional Medical History splenectomy, chronic LE weakness, chronic constipation, chronic bladder infections, morbid obesity Current History Admitted to acute care through ED, with slurred speech, weakness, vomiting, headache, low back pain Reviewed History: Yes Social History Home: Single Level Current Living Status: Spouse Entry Into Home: Stairs Without Railing Steps Into Home: 2 ADL-Prior Level of Function ADL PLOF Comments Pt reported that she was able to manage all of her basic ADLs prior to hospitalization, except that her put her socks on her. She normally stood in the shower with one foot up on a seat to wash luther area. She was unable to stand for long periods of time to wash dishes, do laundry, cook, etc. 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 She normally didn't use any devices for walking except she used a cane when getting in and out of the car. 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 Pain reported 0/10 "but I'm not moving." Mental Status/Objective Patient Orientation: Person, Place, Time, Situation Attachments: Central Line Current Glasses/Contacts: Yes Hearing Aids: No Dentures/Partials: No Hand Dominance: Right Upper Extremity ROM Grossly WFL bilat Upper Extremity Coordination Limited a little due to swelling in hands. Also limited due to decr AROM L index Upper Extremity Strength grossly 4/5 bilat. Distal resistance causes back pain Edema: Significant swelling in bilat LEs limits mobility and self care ADL-Treatment ADL-Current Pt did not need to toilet but discussed process with her. BSC provided in room ( can go over toilet) Functional [place] Measure 0=Not Assessed/NA 4=Minimal Assistance 1=Total Assistance 5=Supervision or Setup 2=Maximal Assistance 6=Modified [place] 3=Moderate Assistance 7=Complete IndependenceIRFPAI Quality Coding Scale 6 Independent with activity with or without an assistive device 5 Patient requires set up or clean up by helper. Patient completes activity by themselves 4 Supervision or touching assist (CGA). [place] provide cues , steadying assist 3 The helper provides less than half the effort to complete the activity 2 The helper provides more than half the effort to complete the activity 1 Dependent. The helper does all the effort to complete an activity 7 Patient refused to complete or attempt activity 9 The patient did not perform the activity before the current illness or injury 88 Not attempted due to Medical conditions or safety concerns Eating (FIM): 7 (Pt report. No problems opening packages, cutting food, feeding herself) Eating (QC): 6 Grooming (FIM): 5 (Setup to brush teeth, wash face and hands, seated. No makeup ) Oral Hygiene (QC): 5 Bathing (FIM): 3 (Sponge bath, setup. Unable to wash lower legs/feet, bottom and luther areas 60%) Shower/Bathe Self (QC): 3 Upper Body Dressing (FIM): 5 (setup) Upper Body Dressing (QC): 5 Lower Body Dressing (FIM): 2 (Max assist to stand to pull pants up. Can get pants down to knees but unable to get them off/on over feet and unable to manage slipper socks. ) Lower Body Dressing (QC): 2 On/Off Footwear (QC): 1 (Unable to get slipper socks off or on) Transfers (B, C, W/C) (FIM): 2 (Max assist sit to stand, then able to stand with CGA to SBA, FWW. ) Other Treatments Pt helped propel w/c in room but transported to gym to conserve her energy. She did 8 minutes bilat UE exercise with arm bike set at 15W resistance, with no breaks. UE strengthening needed to help with sit to stand, stand to sit and ADLs. She has some difficulty getting legs on/off leg rests of W?C due to fluid retention. Pt transported to [facility] area where she was positioned at table, to visit with family. O2 at 5L/min in place. Education OT Patient Education: Modified ADL techniques, Purpose of tx/functional activities, Rehab process, Safety issues, Transfer techniques, Use of adapted equipment Teaching Recipient: Patient Teaching Methods: Demonstration, Discussion Response to Teaching: Verbalize Understanding, Return Demonstration, Reinforcement Needed OT Short Term Goals Short Term Goals Time Frame: August 04, 2016 Lower Body Dressing(FIM): 3 Toileting(FIM): 3 Transfers (B,C,W/C) (FIM): 3 Toilet/Commode Transfer(FIM): 3 1=Demonstrate adherence to instructed precautions during ADL tasks. 2=Patient will verbalize/demonstrate understanding of assistive devices/ modifications for ADL. 3=Patient will improve strength/tolerance for activity to enable patient to perform ADL's. OT Residential Goals English Faculty Member Goals Time Frame: Aug 20, 2016 Eating (FIM): 7 Eating (QC): 6 Groomin Oral Hygiene (QC): 6 Bathing(FIM): 6 Shower/Bathe Self (QC): 6 Upper Body Dressing(FIM): 6 Upper Body Dressing (QC): 6 Lower Body Dressing(FIM): 6 Lower Body Dressing (QC): 6 On/Off Footwear (QC): 6 Toileting(FIM): 6 Toileting Hygiene (QC): 6 Toilet/Commode Transfer(FIM): 6 Toilet/Commode Transfer (QC): 6 Shower Transfer(FIM): 6 Additional Goals: 2-Verbalize Understanding, 3-ImproveStrength/Unique 1=Demonstrate adherence to instructed precautions during ADL tasks. 2=Patient will verbalize/demonstrate understanding of assistive devices/ modifications for ADL. 3=Patient will improve strength/tolerance for activity to enable patient to perform ADL's. OT Education/Plan Problem List/Assessment Assessment: Decreased Activ Tolerance, Decreased UE Strength, Dependent Transfers, Impaired Bed Mobility, Impaired Self-Care Skills Pt would benefit from skilled OT to increase her independence in basic self care to allow her to return home safely to live with her and to decrease caregiver burden. Discharge Recommendations Plan/Recommendations: Continue POC Target Placement home with spouse Treatment Plan/Plan of Care Treatment,Training & Education: Yes Patient would benefit from OT for education, treatment and training to promote independence in ADL's, mobility, safety and/or upper extremity function for ADL' s. Plan of Care: ADL Retraining, Functional Mobility, Group Exercise/Act as Ind ( education, exercise, activity tolerance, socialization, mobility), UE Funct Exercise/Act, UE Neuromus Re-Ed/Coord Treatment Duration: Aug 20, 2016 # of days/week 5-6 Visits Per Week: 10-11 Minutes/Day (M-F): 75-90 Minutes/Day (Sat/Arceo): PRN Agreement: Yes Rehab Potential: Fair Time/GCodes Start Time: 11:45 Stop Time: 14:15 Total Time Billed (hr/min): 75 Billed Treatment Time 1145 to 1200, 1315 to 1415 visit x 2, 15 minutes evaluation moderate intensity, 45 minutes ADL, 15 minutes exercise PEDRO COY OT July 28, 2016 14:48
--- NOTE | 2016-07-28 15:13 | Physical Therapy Daily Note ---
PT Daily Note-Current Subjective Patient in wheelchair in common area pre tx, agrees to PT, no pain at rest but when she goes from sit to stand and supine <-> sit she has 9/10 pain in her back. Appearance Patient in bed post tx with nurse call, phone, tray, family in the room, all needs met. Mental Status Patient Orientation: Normal For Age Attachments: Oxygen 5L of O2 nasal canula. Transfers Functional [place] Measure 0=Not Assessed/NA 4=Minimal Assistance 1=Total Assistance 5=Supervision or Setup 2=Maximal Assistance 6=Modified [place] 3=Moderate Assistance 7=Complete IndependenceIRFPAI Quality Coding Scale 6 Independent with activity with or without an assistive device 5 Patient requires set up or clean up by helper. Patient completes activity by themselves 4 Supervision or touching assist (CGA). [place] provide cues , steadying assist 3 The helper provides less than half the effort to complete the activity 2 The helper provides more than half the effort to complete the activity 1 Dependent. The helper does all the effort to complete an activity 7 Patient refused to complete or attempt activity 9 The patient did not perform the activity before the current illness or injury 88 Not attempted due to Medical conditions or safety concerns Transfers (B, C, W/C) (FIM): 2 Scootin Rollin Supine to/from Sit: 2 Sit to/from Stand: 2 Bed to/from Chair: 4 Gait Training Gait (FIM): 2 Distance: 120' Gait Level of Assist: 4 Gait Persons Needed: 1 Gait Assistive Device: FWW Patient needs several standing rest breaks, very slow ambulation. Exercises Supine Ex: Ankle pumps, Quad Set, Glut sets, Heel Slides, Short Arc Quads Supine Reps: 20 Treatments bed mobility and transfers, ambulation, functional strengthening Assessment Current Status: Fair Progress improving endurance PT Short Term Goals Short Term Goals Time Frame: August 04, 2016 Transfers (B,C,W/C) (FIM): 3 Gait (FIM): 2 Gait Distance Comment: 120' Gait Level of Assist: 4 (CGA) Wheelchair Distance: 20'x2 PT Jail Goals Overhead Worker Goals PT Jail Goals Time Frame: August 18, 2016 Transfers (B,C,W/C) (FIM): 4 Sit to Lying (QC): 3 Lying-Sitting on Side/Bed(QC): 3 Sit to Stand (QC): 3 Rollin Roll Left to Right (QC): 3 Chair/Tnq-dp-Morrl Xfer(QC): 4 (CGA) Car Transfer (QC): 4 Gait (FIM): 4 Distance: 150' Walk 10 feet (QC): 4 Walk 10ft-Uneven Surface(QC): 4 Walk 50ft with 2 Turns (QC): 4 Walk 150 ft (QC): 4 Gait Level of Assist: 4 (CGA) Gait Assistive Device: FWW Wheelchair (FIM): 5 Distance: 150' Wheelchair Level of Assist: 5 Wheel 50 feet with 2 turns (QC: 4 Stairs (FIM): 1 # of Steps: 1 1 Step (curb) (QC): 4 4 Steps (QC): 88 12 Steps (QC): 88 Stairs Level Of Assist: 4 Picking up an Object (QC): 88 PT Plan Problem List Problem List: Activity Tolerance, Functional Strength, Safety, Balance, Gait, Transfer, Bed Mobility, ROM Treatment/Plan Treatment Plan: Continue Plan of Care Treatment Plan: Bed Mobility, Education, Functional Activity Unique, Functional Strength, Group Therapy, Gait, Safety, Therapeutic Exercise, Transfers Treatment Duration: August 18, 2016 Visits Per Week: 10-11 Minutes/Day (M-F): 60-90 Minutes/Day (Sat/Arceo): 15-30 Safety Risks/Education Patient Education: Gait Training, Transfer Techniques, Correct Positioning, Safety Issues Teaching Recipient: Patient Teaching Methods: Demonstration, Discussion Response to Teaching: Reinforcement Needed Time/GCodes Time In: 1445 Time Out: 1515 Total Billed Treatment Time: 30 Total Billed Treatment 1 visit GT 15' EX 15' ENRRIQUE ROJO PT July 28, 2016 15:13
[2016-07-28] MEDS: ONDANSETRON 4 MG (ZOFRAN) ORAL DISSOLVE TAB PO PRN (15:53)
[2016-07-28 18:44] VITALS: BP 162/72
[2016-07-28] MEDS: LACTULOSE SYRUP 10GM/15ML (ENULOSE) 30ML UDC PO SCH (20:51)
[2016-07-28] MEDS ORDERED: GABAPENTIN 300 MG (NEURONTIN) CAP PO SCH (21:00)
[2016-07-28] MEDS: MENTHOL/ZINC OXIDE (CALMOSEPTINE) 113 GM TUBE TOP SCH (21:44)
[2016-07-28] MEDS ORDERED: ACYCLOVIR 400 MG TABLET (ZOVIRAX) PO SCH (22:00)
[2016-07-29 05:00] VITALS: BP 136/67
[2016-07-29] MEDS: PANTOPRAZOLE 40 MG (PROTONIX) TAB PO SCH (06:23)
[2016-07-29] MEDS ORDERED: GABAPENTIN 300 MG (NEURONTIN) CAP PO SCH (09:00)
[2016-07-29] MEDS: cefTRIAXone INJECTION 2,000 MG in NS (IVPB) 50 ML IV SCH (09:28)
[2016-07-29] MEDS: lisINopril 20 MG (ZESTRIL) TAB PO SCH (09:29)
[2016-07-29] MEDS: LACTULOSE SYRUP 10GM/15ML (ENULOSE) 30ML UDC PO SCH ×2 (09:30→20:39)
[2016-07-29] MEDS: MENTHOL/ZINC OXIDE (CALMOSEPTINE) 113 GM TUBE TOP SCH ×2 (09:31→20:42)
[2016-07-29] MEDS ORDERED: [UNRECOGNIZED DRUG - OTHER] IM ONE (11:00)
[2016-07-29] MEDS ORDERED: [UNRECOGNIZED DRUG - OTHER] IM ONE ×2 (11:00→12:00)
--- NOTE | 2016-07-29 11:35 | Progress Note-Hospitalist ---
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 Pt was informed that she will most likely feel fatigued for a few more months following her stay at [facility]. Pt was informed that she will continue IV antibiotics until DC. Pt is also concerned about recurrent headaches that she states leads to nausea. Pt states that she has no hx of migraines. Physical exam stable. Lungs sound perfect. Pt admits to not yet having her vaccines. Pt states that Dr Morrissey informed her PCP [place] could do this Pt is concerned about not taking her home meds, but she was informed that she will not start all home meds for awhile. 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 Volume overload and vascular congestion on chest x-ray on admit, cardiology consulted due to the fact of high volume fluid resuscitation will place her at risk for congestive heart failure Diabetes mellitus Morbid obesity likely obstructive sleep apnea undiagnosed Leukocytosis but improved clinical picture Thrombocytopenia with to history of splenectomy s/p New ARF resolved now Liver cirrhosis with mild hepatic encephalopathy due to elevated ammonia Pancreatic "fullness" needs EUS by Dr Lam Drowsiness due to gabapentin Plan: Continue IV antibiotics Reconcile home meds Labs in am Decrease Gabapentin dosing due to oversedation Scribed by Machelle Bennett under the direct supervision of Dr. Lucas. NUHA LUCAS DO July 29, 2016 11:35
--- NOTE | 2016-07-29 11:41 | Physical Therapy Daily Note ---
PT Daily Note-Current Subjective Patient in bed pre tx, agrees to PT, has pain of 5/10 in her back. Patient is very drowsy and has a hard time keeping her eyes open, even during PT. Appearance Patient in bed post tx with nurse call, phone, tray, all needs met. Mental Status Patient Orientation: Normal For Age Attachments: Oxygen 5L of O2 nasal canula Transfers Functional [place] Measure 0=Not Assessed/NA 4=Minimal Assistance 1=Total Assistance 5=Supervision or Setup 2=Maximal Assistance 6=Modified [place] 3=Moderate Assistance 7=Complete IndependenceIRFPAI Quality Coding Scale 6 Independent with activity with or without an assistive device 5 Patient requires set up or clean up by helper. Patient completes activity by themselves 4 Supervision or touching assist (CGA). [place] provide cues , steadying assist 3 The helper provides less than half the effort to complete the activity 2 The helper provides more than half the effort to complete the activity 1 Dependent. The helper does all the effort to complete an activity 7 Patient refused to complete or attempt activity 9 The patient did not perform the activity before the current illness or injury 88 Not attempted due to Medical conditions or safety concerns Transfers (B, C, W/C) (FIM): 2 Scootin Rollin Supine to/from Sit: 2 Sit to/from Stand: 4 min assist to stand from bed, she has a very hard time sitting up from the bed due to swelling and obesity, she is very resistant to performing a log roll and doesn't seem to push much with her arms to sit even when she does perform a log roll Gait Training Gait (FIM): 2 Distance: 130'x2 Gait Level of Assist: 4 Gait Persons Needed: 1 Gait Assistive Device: FWW CGA, very slow, occasional standing rest break, needed cues to keep her eyes open Exercises Seated Therapy Exercises: Ankle pumps, Hip flexion, Hip abd/add Seated Reps: 20 Standing: Hip Abduction, Hamstring curls, Heel/toe raises, Marching, Mini squats Standing Reps: 15 toe taps alternating on step x15 each, LAQ alternating for 5 min, sit to stand x5 Treatments bed mobility and transfers, ambulation, functional strengthening Assessment Current Status: Fair Progress improving ambulation, did not cry out during supine <-> sit, patient fatigues very quickly and needed frequent rest breaks, she was very lethargic and often needed cues to keep her eyes open during treatment PT Short Term Goals Short Term Goals Time Frame: August 04, 2016 Transfers (B,C,W/C) (FIM): 3 Gait (FIM): 2 Gait Distance Comment: 120' Gait Level of Assist: 4 (CGA) Wheelchair Distance: 20'x2 PT Construction Worker Goals Prison Goals PT Prison Goals Time Frame: August 18, 2016 Transfers (B,C,W/C) (FIM): 4 Sit to Lying (QC): 3 Lying-Sitting on Side/Bed(QC): 3 Sit to Stand (QC): 3 Rollin Roll Left to Right (QC): 3 Chair/Gog-ra-Sjfvg Xfer(QC): 4 (CGA) Car Transfer (QC): 4 Gait (FIM): 4 Distance: 150' Walk 10 feet (QC): 4 Walk 10ft-Uneven Surface(QC): 4 Walk 50ft with 2 Turns (QC): 4 Walk 150 ft (QC): 4 Gait Level of Assist: 4 (CGA) Gait Assistive Device: FWW Wheelchair (FIM): 5 Distance: 150' Wheelchair Level of Assist: 5 Wheel 50 feet with 2 turns (QC: 4 Stairs (FIM): 1 # of Steps: 1 1 Step (curb) (QC): 4 4 Steps (QC): 88 12 Steps (QC): 88 Stairs Level Of Assist: 4 Picking up an Object (QC): 88 PT Plan Problem List Problem List: Activity Tolerance, Functional Strength, Safety, Balance, Gait, Transfer, Bed Mobility, ROM Treatment/Plan Treatment Plan: Continue Plan of Care Treatment Plan: Bed Mobility, Education, Functional Activity Unique, Functional Strength, Group Therapy, Gait, Safety, Therapeutic Exercise, Transfers Treatment Duration: August 18, 2016 Visits Per Week: 10-11 Minutes/Day (M-F): 60-90 Minutes/Day (Sat/Arceo): 15-30 Safety Risks/Education Patient Education: Gait Training, Transfer Techniques, Correct Positioning, Safety Issues Teaching Recipient: Patient Teaching Methods: Demonstration, Discussion Response to Teaching: Reinforcement Needed Time/GCodes Time In: 1045 Time Out: 1145 Total Billed Treatment Time: 60 Total Billed Treatment 1 visit EX 30' GT 20' FA 10' ENRRIQUE ROJO PT July 29, 2016 11:41
--- NOTE | 2016-07-29 12:48 | Occupational Ther Daily Note ---
OT Current Status-Daily Note Subjective Pt seen in room, up in bed, agreeable to OT. Pt reported pain in her back, mainly when she got up. Not rated or described. Appearance Alert, cooperative Mental Status/Objective Functional [place] Measure 0=Not Assessed/NA 4=Minimal Assistance 1=Total Assistance 5=Supervision or Setup 2=Maximal Assistance 6=Modified [place] 3=Moderate Assistance 7=Complete [place] Attachments: Central Line ADL-Treatment Pt reported she had toileted in bathroom on tall toilet but did have help getting up and down. BSC placed over toilet to provide her with arms for pushing up off toilet and for safe sitting. Functional [place] Measure 0=Not Assessed/NA 4=Minimal Assistance 1=Total Assistance 5=Supervision or Setup 2=Maximal Assistance 6=Modified [place] 3=Moderate Assistance 7=Complete IndependenceIRFPAI Quality Coding Scale 6 Independent with activity with or without an assistive device 5 Patient requires set up or clean up by helper. Patient completes activity by themselves 4 Supervision or touching assist (CGA). [place] provide cues , steadying assist 3 The helper provides less than half the effort to complete the activity 2 The helper provides more than half the effort to complete the activity 1 Dependent. The helper does all the effort to complete an activity 7 Patient refused to complete or attempt activity 9 The patient did not perform the activity before the current illness or injury 88 Not attempted due to Medical conditions or safety concerns Bathing (FIM): 5 (Pt washed and dried all parts in shower, standing to wash luther and bottom and using long handled sponge to wash and dry lower legs. Shower chair, grab bars, hand held shower. ) Upper Body (FIM): 5 (Pt doffed and donned shirt with setup. ) Lower Body Dressing (FIM): 3 (Pt unable to doff/don slipper socks herself. pt educ use of dressing stick to doff socks and don pants. help to get pants up over hips.Pt stood SBA, FWW from EOB to pull pants up (bed raised up). Pt became tearful when dressing lwoer body, stating, "I can't do this" while she was doing it. ) Toileting (FIM): 2 (Per nursing from yesterday) Toileting Hygiene (QC): 2 (Per nursing from yesterday) Transfers (B, C, W/C) (FIM): 2 (Help getting both legs out of bed and also one side of trunk. pt educ technique but she had some difficulty pushing herself up to sit and scooting to the edge of the bed. Once up, she walked with CGA, FWW to bathroom.) Toilet/Commode Transfer (FIM): 2 (Per nursing from yesterday) Toilet Transfer (QC): 2 (Per nursing from yesterday) Shower Transfer(FIM): 4 (CGA, FWW to shower chair, with grab bars. Side stepping into shower. ) Pt stood with SBA at EOB to scoot up in bed, then needed max assist to get legs and trunk back into bed. Pt left up in bed, all needs met. Education OT Patient Education: Modified ADL techniques, Progress toward Goal/Update tx plan, Purpose of tx/functional activities, Transfer techniques, Use of adapted equipment Teaching Recipient: Patient Teaching Methods: Demonstration, Discussion Response to Teaching: Verbalize Understanding, Return Demonstration, Reinforcement Needed OT Short Term Goals Short Term Goals Time Frame: August 04, 2016 Lower Body Dressing(FIM): 3 Toileting(FIM): 3 Transfers (B,C,W/C) (FIM): 3 Toilet/Commode Transfer(FIM): 3 1=Demonstrate adherence to instructed precautions during ADL tasks. 2=Patient will verbalize/demonstrate understanding of assistive devices/ modifications for ADL. 3=Patient will improve strength/tolerance for activity to enable patient to perform ADL's. OT Detention Goals Detention Goals Time Frame: Aug 20, 2016 Eating (FIM): 7 Eating (QC): 6 Groomin Oral Hygiene (QC): 6 Bathing(FIM): 6 Shower/Bathe Self (QC): 6 Upper Body Dressing(FIM): 6 Upper Body Dressing (QC): 6 Lower Body Dressing(FIM): 6 Lower Body Dressing (QC): 6 On/Off Footwear (QC): 6 Toileting(FIM): 6 Toileting Hygiene (QC): 6 Toilet/Commode Transfer(FIM): 6 Toilet/Commode Transfer (QC): 6 Shower Transfer(FIM): 6 Additional Goals: 2-Verbalize Understanding, 3-ImproveStrength/Unique 1=Demonstrate adherence to instructed precautions during ADL tasks. 2=Patient will verbalize/demonstrate understanding of assistive devices/ modifications for ADL. 3=Patient will improve strength/tolerance for activity to enable patient to perform ADL's. OT Education/Plan Problem List/Assessment Pt would benefit from skilled OT to increase her independence in basic self care to allow her to return home safely to live with her and to decrease caregiver burden. Discharge Recommendations Plan/Recommendations: Continue POC Treatment Plan/Plan of Care Patient would benefit from OT for education, treatment and training to promote independence in ADL's, mobility, safety and/or upper extremity function for ADL' s. Plan of Care: ADL Retraining, Functional Mobility, Group Exercise/Act as Ind ( education, exercise, activity tolerance, socialization, mobility), UE Funct Exercise/Act, UE Neuromus Re-Ed/Coord Treatment Duration: Aug 20, 2016 Visits Per Week: 10-11 Minutes/Day (M-F): 75-90 Minutes/Day (Sat/Arceo): PRN Agreement: Yes Rehab Potential: Fair Time/GCodes Start Time: 08:30 Stop Time: 09:30 Total Time Billed (hr/min): 60 Billed Treatment Time visit, 60 minutes ADL PEDRO COY OT July 29, 2016 12:48
--- NOTE | 2016-07-29 14:35 | Therapy Group Daily Note ---
Therapy Daily Group Note Patient Education Topic Other List Below Exercises LE Seated Exercise, Sit to/from Stand, UE Exercise Other/Notes Pt was an active participant in OT/PT group. She walked to group with SBA/CGA, with FWW (and O2 tank). She was on a team that answered questions for "Family Feud" type activity and was able to come up with several correct answers. During the game, she did sit to stand practice and seated UE and LE exercises. At the end of the group. she was able to share an inspirational phrase or word with the group. She got out of a chair with arms with SBA, FWW and walked back to her room SBA. She got into bed with only mod assist (help with her legs). Pt left up in bed, all needs met. Start Time: 13:00 Stop Time: 14:15 Total Billed Treatment Time: 75 Total Billed Treatment visit, group 75 minutes PEDRO COY OT July 29, 2016 14:35
[2016-07-29] MEDS: GABAPENTIN 300 MG (NEURONTIN) CAP PO SCH ×2 (15:04→20:41)
[2016-07-29] MEDS: ONDANSETRON 4 MG (ZOFRAN) ORAL DISSOLVE TAB PO PRN (15:57)
[2016-07-29 18:20] VITALS: BP 122/67
[2016-07-30 05:00] VITALS: BP 153/67
[2016-07-30] MEDS: PANTOPRAZOLE 40 MG (PROTONIX) TAB PO SCH (06:13)
[2016-07-30 06:22] LABS: BASOPHILS # (AUTO) 0.1 10^3/uL (0.0-0.1); BASOPHILS % (AUTO) 1 % (0-10); EOSINOPHILS # (AUTO) 0.8 10^3/uL (0.0-0.3); EOSINOPHILS % (AUTO) 5 % (0-10); LYMPHOCYTES # (AUTO) 3.5 X 10^3 (1.0-4.0); LYMPHOCYTES % (AUTO) 20 % (12-44); MEAN CORPUSCULAR HEMOGLOBIN 30 PG (25-34); MEAN CORPUSCULAR HGB CONC 32 G/DL (32-36); MEAN CORPUSCULAR VOLUME 95 FL (80-99); MONOCYTES # (AUTO) 2.2 X 10^3 (0.0-1.0); MONOCYTES % (AUTO) 13 % (0-12); NEUTROPHILS # (AUTO) 10.4 X 10^3 (1.8-7.8); NEUTROPHILS % (AUTO) 61 % (42-75); PLATELET COUNT 92 10^3/uL (130-400); RED CELL DISTRIBUTION WIDTH 15.8 % (10.0-14.5)
[2016-07-30 06:44] LABS: ANISOCYTOSIS SLIGHT; BAND NEUTROPHILS 1 %; BASOPHILS % (MANUAL) 1 %; EOSINOPHILS % (MANUAL) 0 %; HYPOCHROMASIA SLIGHT; LYMPHOCYTES % (MANUAL) 20 %; METAMYELOCYTES % 1 %; NEUTROPHILS % (MANUAL) 60 %; POIKILOCYTOSIS SLIGHT; REACTIVE LYMPHOCYTES 5 %; TARGET CELLS SLIGHT
[2016-07-30 07:14] LABS: ALANINE AMINOTRANSFERASE 31 U/L (0-55); ALBUMIN 2.5 G/DL (3.2-4.5); ANION GAP 6 MMOL/L (5-14); ASPARTATE AMINO TRANSFERASE 27 U/L (5-34); BILIRUBIN,TOTAL 0.7 MG/DL (0.1-1.0); BLOOD UREA NITROGEN 8 MG/DL (7-18); BUN/CREATININE RATIO 12; CARBON DIOXIDE 35 MMOL/L (21-32); CHLORIDE 99 MMOL/L (98-107); CREATININE SERUM 0.66 MG/DL (0.60-1.30); GFR ESTIMATED > 60; GLUCOSE 143 MG/DL (70-105); POTASSIUM 3.5 MMOL/L (3.6-5.0); SODIUM 140 MMOL/L (135-145); TOTAL PROTEIN 5.8 G/DL (6.4-8.2)
[2016-07-30] MEDS: lisINopril 20 MG (ZESTRIL) TAB PO SCH (08:34)
[2016-07-30] MEDS: GABAPENTIN 300 MG (NEURONTIN) CAP PO SCH ×3 (08:34→21:00)
[2016-07-30] MEDS: cefTRIAXone INJECTION 2,000 MG in NS (IVPB) 50 ML IV SCH (08:35)
[2016-07-30] MEDS: MENTHOL/ZINC OXIDE (CALMOSEPTINE) 113 GM TUBE TOP SCH ×2 (08:36→21:03)
--- NOTE | 2016-07-30 11:11 | PM & R (SOAP) Progress Note ---
Subjective Subjective/Events-last exam Patient was seen in her room this AM,Patient concerned re swelling in feet states that she takes Lasix prn at home Will defer to DR Marilynn tanner this Patient admitted to my service in my absence by DR Subramanian medical records reviewed Patient min to mod assist for transfers. Review of Systems Cardiovascular: Edema Musculoskeletal: leg pain Objective Exam Last Set of Vital Signs Vital Signs Date Time Temp Pulse Resp B/P (MAP) Pulse Ox O2 Delivery O2 Flow Rate FiO2 07/30/16 05:00 99.3 82 22 153/67 94 5.00 07/29/16 05:00 Nasal Cannula Capillary Refill : I&O Intake and Output 07/30/16 00:00 Intake Total 1250 ml Balance 1250 ml Intake Oral 1200 ml IV Total 50 ml # Voids 6 General: Alert, Oriented X3, Cooperative, No Acute Distress HEENT: Atraumatic, PERRLA, EOMI, Mucous Memb Moist/[place] Neck: Supple, No JVD Lungs: Clear to Auscultation Heart: Regular Rate Abdomen: Normal Bowel Sounds, Soft, No Tenderness Extremities: Other (plus one nonpitting edema both ankles) Neuro: Other (Generalized weakness) Results Lab Laboratory Tests 07/28/16 11:48: Glucometer 144H 07/28/16 16:10: Glucometer 160H 07/28/16 21:02: Glucometer 185H 07/29/16 06:39: Glucometer 136H 07/29/16 11:03: Glucometer 158H 07/29/16 15:57: Glucometer 154H 07/29/16 20:17: Glucometer 173H 07/30/16 05:30: White Blood Count 17.0H, Red Blood Count 3.60L, Hemoglobin 10.8L, Hematocrit 34L , Mean Corpuscular Volume 95, Mean Corpuscular Hemoglobin 30, Mean Corpuscular Hemoglobin Concent 32, Red Cell Distribution Width 15.8H, Platelet Count 92L, Mean Platelet Volume , Neutrophils (%) (Auto) 61, Lymphocytes (%) (Auto) 20, Monocytes (%) (Auto) 13H, Eosinophils (%) (Auto) 5, Basophils (%) (Auto) 1, Neutrophils # (Auto) 10.4H, Lymphocytes # (Auto) 3.5, Monocytes # (Auto) 2.2H, Eosinophils # (Auto) 0.8H, Basophils # (Auto) 0.1, Neutrophils % (Manual) 60, Lymphocytes % (Manual) 20, Monocytes % (Manual) 12, Eosinophils % (Manual) 0, Basophils % (Manual) 1, Metamyelocytes % 1, Band Neutrophils 1, Reactive Lymphocytes 5, Toxic Granulation 1+, Hypochromasia SLIGHT, Poikilocytosis SLIGHT , Anisocytosis SLIGHT, Macrocytosis SLIGHT, Target Cells SLIGHT, Sodium Level 140, Potassium Level 3.5L, Chloride Level 99, Carbon Dioxide Level 35H, Anion Gap 6, Blood Urea Nitrogen 8, Creatinine 0.66, Estimat Glomerular Filtration Rate > 60, BUN/Creatinine Ratio 12, Glucose Level 143H, Calcium Level 8.0L, Total Bilirubin 0.7, Aspartate Amino Transf (AST/SGOT) 27, Alanine Aminotransferase (ALT/SGPT) 31, Alkaline Phosphatase 65, Total Protein 5.8L, Albumin 2.5L 07/30/16 05:39: Glucometer 139H Assessment/Plan Assessment General debil s/p sepsis morbid Obesity 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
--- NOTE | 2016-07-30 11:19 | Individualized Plan of Care ---
Individualized Plan of Care Rehab Nursing IPOC Order Admission Date July 28, 2016 at 10:30 Current Orders Orders Cbc With Automated Diff (07/30/16 06:00) Comprehensive Metabolic Panel (07/30/16 06:00) Patient Visit (07/29/16 ) Exercise Therap, Ea 15 Min (07/29/16 ) Gait Training, Ea 15 Min (07/29/16 ) Functional Activities, Ea 15 (07/29/16 ) Patient Visit (07/29/16 ) Manual Differential (07/30/16 05:30) Toilet every (bladder): (hrs): 2 hours while awake PRN PT IPOC Problem List: Activity Tolerance, Functional Strength, Safety, Balance, Gait, Transfer, Bed Mobility, ROM Treatment Plan: Continue Plan of Care Bed Mobility, Education, Functional Activity Unique, Functional Strength, Group Therapy, Gait, Safety, Therapeutic Exercise, Transfers Treatment Duration: August 18, 2016 Visits Per Week: 10-11 Minutes/Day (M-F): 60-90 Minutes/Day (Sat/Arceo): 15-30 OT IPOC Problems: Decreased Activ Tolerance, Decreased UE Strength, Dependent Transfers , Impaired Bed Mobility, Impaired Self-Care Skills OT Problems Pt would benefit from skilled OT to increase her independence in basic self care to allow her to return home safely to live with her and to decrease caregiver burden. Plan of Care: ADL Retraining, Functional Mobility, Group Exercise/Act as Ind ( education, exercise, activity tolerance, socialization, mobility), UE Funct Exercise/Act, UE Neuromus Re-Ed/Coord Treatment Duration: Aug 20, 2016 Visits Per Week: 10-11 Minutes/Day (M-F): 75-90 Minutes/Day (Sat/Arceo): PRN ST IPOC Speech Therapy Treatment Plan: Discontinue ST Physician IPOC Medical Issues being managed closely and that require the 24 hour availability of a physician: DM, Morbid obesity, ongoing treatment of sepsis,Peripheral edema ,Leukocytosis.Hypokalemia Medical Issues: DVT Prophylaxis, Falls Precautions, Fluid/Electrolyte/ Nutrition Balance, Infection Protection, Pain Management, Other (List) (as per above) Brief Synthesis of Preadmission Screen, Post-Admission Evaluation, and Therapy Evaluations: 50 yo female who had been Independent and living with her spouse who developed sepsis due to Strep Pneumonia with a resulting decline in Her functional independence who had been admitted to [facility] for treatment of sepsis,Left with General debil from all of this PMH significant for morbid obesity and DM and Diabetic peripheral neuropathy Medical Prognosis: good Anticipated Length of Stay: 08/20/16 Rehab Goals Modified Independent for adls and mobility skills Anticipated discharge destinat: Home with spouse and [facility] BEBO DAVID MD July 30, 2016 11:19
--- NOTE | 2016-07-30 11:22 | Occupational Ther Daily Note ---
OT Current Status-Daily Note Subjective Pt seen in room, agreeable to OT. No pain mentioned. Appearance Alert, cooperative. Became frustrated and tearful with lower body dressing but easily resolved Mental Status/Objective Functional [place] Measure 0=Not Assessed/NA 4=Minimal Assistance 1=Total Assistance 5=Supervision or Setup 2=Maximal Assistance 6=Modified [place] 3=Moderate Assistance 7=Complete [place] ADL-Treatment Functional [place] Measure 0=Not Assessed/NA 4=Minimal Assistance 1=Total Assistance 5=Supervision or Setup 2=Maximal Assistance 6=Modified [place] 3=Moderate Assistance 7=Complete IndependenceIRFPAI Quality Coding Scale 6 Independent with activity with or without an assistive device 5 Patient requires set up or clean up by helper. Patient completes activity by themselves 4 Supervision or touching assist (CGA). [place] provide cues , steadying assist 3 The helper provides less than half the effort to complete the activity 2 The helper provides more than half the effort to complete the activity 1 Dependent. The helper does all the effort to complete an activity 7 Patient refused to complete or attempt activity 9 The patient did not perform the activity before the current illness or injury 88 Not attempted due to Medical conditions or safety concerns Grooming (FIM): 5 (Pt stood at sink to brush teeth and hair, balancing with FWW, SBA. Pt did not need any help to do the activities) Bathing (FIM): 5 (Pt washed and dried all parts in the shower. Shower chair, grab bars, hand held shower. Setup, instruction on turning shower on. ) Upper Body (FIM): 5 (Doffed and donned clothing with setup) Lower Body Dressing (FIM): 4 (Pt education use of sock aid and dressing stick. Just a little help needed to get feet into underpants, made more difficult by significant edema in LEs. Sit to stand from bed with SBA, FWW, cues to push up.) Toileting (FIM): 5 (SBA to manage clothing and hygiene, talltoilet, grab bar, FWW) Toilet/Commode Transfer (FIM): 5 (BSC over toilet, grab bars) Shower Transfer(FIM): 5 (SBA, reminder for walker placement. Shower chair) Other Treatment Pt walked SBA for safety, FWW to commons area to do bilat UE exercise. Pt did 10 reps each of 5 different UE exercises, times 2 sets, selected to work on muscle groups needed for transfers. pt educ on how to do the different exercises but she retained most of the information for the second set. Pt walked back to room SBA for safety, FWW and was left upright in recliner, all needs met. Education OT Patient Education: Exercise program, Modified ADL techniques, Purpose of tx/ functional activities, Transfer techniques, Use of adapted equipment Teaching Recipient: Patient Teaching Methods: Demonstration, Discussion Response to Teaching: Verbalize Understanding, Return Demonstration, Reinforcement Needed OT Short Term Goals Short Term Goals Time Frame: August 04, 2016 Lower Body Dressing(FIM): 3 Toileting(FIM): 3 Transfers (B,C,W/C) (FIM): 3 Toilet/Commode Transfer(FIM): 3 1=Demonstrate adherence to instructed precautions during ADL tasks. 2=Patient will verbalize/demonstrate understanding of assistive devices/ modifications for ADL. 3=Patient will improve strength/tolerance for activity to enable patient to perform ADL's. OT Halfway Goals Nozzle Operator Goals Time Frame: Aug 20, 2016 Eating (FIM): 7 Eating (QC): 6 Groomin Oral Hygiene (QC): 6 Bathing(FIM): 6 Shower/Bathe Self (QC): 6 Upper Body Dressing(FIM): 6 Upper Body Dressing (QC): 6 Lower Body Dressing(FIM): 6 Lower Body Dressing (QC): 6 On/Off Footwear (QC): 6 Toileting(FIM): 6 Toileting Hygiene (QC): 6 Toilet/Commode Transfer(FIM): 6 Toilet/Commode Transfer (QC): 6 Shower Transfer(FIM): 6 Additional Goals: 2-Verbalize Understanding, 3-ImproveStrength/Unique 1=Demonstrate adherence to instructed precautions during ADL tasks. 2=Patient will verbalize/demonstrate understanding of assistive devices/ modifications for ADL. 3=Patient will improve strength/tolerance for activity to enable patient to perform ADL's. OT Education/Plan Problem List/Assessment Pt would benefit from skilled OT to increase her independence in basic self care to allow her to return home safely to live with her and to decrease caregiver burden. Discharge Recommendations Plan/Recommendations: Continue POC Treatment Plan/Plan of Care Patient would benefit from OT for education, treatment and training to promote independence in ADL's, mobility, safety and/or upper extremity function for ADL' s. Plan of Care: ADL Retraining, Functional Mobility, Group Exercise/Act as Ind ( education, exercise, activity tolerance, socialization, mobility), UE Funct Exercise/Act, UE Neuromus Re-Ed/Coord Treatment Duration: Aug 20, 2016 Visits Per Week: 10-11 Minutes/Day (M-F): 75-90 Minutes/Day (Sat/Arceo): PRN Agreement: Yes Rehab Potential: Fair Time/GCodes Start Time: 08:20 Stop Time: 09:30 Total Time Billed (hr/min): 70 Billed Treatment Time visit, 45 minutes ADL, 25 minutes exercise PEDRO COY OT July 30, 2016 11:22
[2016-07-30] MEDS: LACTULOSE SYRUP 10GM/15ML (ENULOSE) 30ML UDC PO SCH ×2 (11:30→21:00)
--- NOTE | 2016-07-30 11:46 | Physical Therapy Daily Note ---
PT Daily Note-Current Subjective Patient in bed pre tx, agrees to PT, states her pain is 7/10 today. Appearance Patient in wheelchair post tx with nurse call, phone, tray, ready for lunch. Mental Status Patient Orientation: Normal For Age Attachments: Oxygen Transfers Functional [place] Measure 0=Not Assessed/NA 4=Minimal Assistance 1=Total Assistance 5=Supervision or Setup 2=Maximal Assistance 6=Modified [place] 3=Moderate Assistance 7=Complete IndependenceIRFPAI Quality Coding Scale 6 Independent with activity with or without an assistive device 5 Patient requires set up or clean up by helper. Patient completes activity by themselves 4 Supervision or touching assist (CGA). [place] provide cues , steadying assist 3 The helper provides less than half the effort to complete the activity 2 The helper provides more than half the effort to complete the activity 1 Dependent. The helper does all the effort to complete an activity 7 Patient refused to complete or attempt activity 9 The patient did not perform the activity before the current illness or injury 88 Not attempted due to Medical conditions or safety concerns Transfers (B, C, W/C) (FIM): 2 Scootin Rollin Supine to/from Sit: 2 Sit to/from Stand: 3 Bed to/from Chair: 4 Patient needs max assist for scooting and supine to sit, mod assist to stand from low surfaces, CGA for transfers Gait Training Gait (FIM): 5 Distance: 150'x2 Gait Level of Assist: 5 Gait Persons Needed: 1 Gait Assistive Device: FWW very slow ambulation, antalgic Exercises LAQ alternating for 5 min, sit to stand 3 sets of 5 NuStep Minutes: 15 NuStep Workload: 4 Treatments bed mobility and transfer training, ambulation, functional strengthening Assessment Current Status: Fair Progress improving endurance PT Short Term Goals Short Term Goals Time Frame: August 04, 2016 Transfers (B,C,W/C) (FIM): 3 Gait (FIM): 2 Gait Distance Comment: 120' Gait Level of Assist: 4 (CGA) Wheelchair Distance: 20'x2 PT Senior Care Goals Assistant Toddler Teacher Goals PT Assistant Toddler Teacher Goals Time Frame: August 18, 2016 Transfers (B,C,W/C) (FIM): 4 Sit to Lying (QC): 3 Lying-Sitting on Side/Bed(QC): 3 Sit to Stand (QC): 3 Rollin Roll Left to Right (QC): 3 Chair/Gto-nq-Abtvy Xfer(QC): 4 (CGA) Car Transfer (QC): 4 Gait (FIM): 4 Distance: 150' Walk 10 feet (QC): 4 Walk 10ft-Uneven Surface(QC): 4 Walk 50ft with 2 Turns (QC): 4 Walk 150 ft (QC): 4 Gait Level of Assist: 4 (CGA) Gait Assistive Device: FWW Wheelchair (FIM): 5 Distance: 150' Wheelchair Level of Assist: 5 Wheel 50 feet with 2 turns (QC: 4 Stairs (FIM): 1 # of Steps: 1 1 Step (curb) (QC): 4 4 Steps (QC): 88 12 Steps (QC): 88 Stairs Level Of Assist: 4 Picking up an Object (QC): 88 PT Plan Problem List Problem List: Activity Tolerance, Functional Strength, Safety, Balance, Gait, Transfer, Bed Mobility, ROM Treatment/Plan Treatment Plan: Continue Plan of Care Treatment Plan: Bed Mobility, Education, Functional Activity Unique, Functional Strength, Group Therapy, Gait, Safety, Therapeutic Exercise, Transfers Treatment Duration: August 18, 2016 Visits Per Week: 10-11 Minutes/Day (M-F): 60-90 Minutes/Day (Sat/Arceo): 15-30 Safety Risks/Education Patient Education: Gait Training, Transfer Techniques, Correct Positioning, Safety Issues Teaching Recipient: Patient Teaching Methods: Demonstration, Discussion Response to Teaching: Reinforcement Needed Time/GCodes Time In: 1045 Time Out: 1145 Total Billed Treatment Time: 60 Total Billed Treatment 1 visit EX 30' GT 30' ENRRIQUE ROJO PT July 30, 2016 11:46
--- NOTE | 2016-07-30 12:21 | HISTORY AND PHYSICAL ---
DATE OF SERVICE: CHIEF COMPLAINT: Difficulty with walking. HISTORY OF PRESENT ILLNESS: The patient is a 50-year-old female who was admitted to [facility] to hospitalist service on 07/21/2016 due to severe sepsis. The patient was suspected to have pyelonephritis with associated bacteremia. The patient had IV fluid resuscitation in addition to empiric antibiotics of Zosyn and vancomycin. The patient was followed by Dr. Barrientos and various specialties, medically improved but was left with general debilitation from this and referred to inpatient rehabilitation unit for ongoing therapies and care. She lives in [place], [place] with her spouse in a single level home. She had been independent prior to this, currently she is max assist for transfers. She is complaining of swelling in her feet. She is min assist for ambulation of short distance with a front-wheeled walker. She has a slow gait pattern. She is set up for eating and grooming max assist with lower body dressing, mod assist with toileting and min assist for upper body dressing. PAST MEDICAL HISTORY: Diabetes mellitus, diabetic peripheral neuropathy, hypertension. PAST SURGICAL HISTORY: Status post splenectomy. ALLERGIES: REGLAN. FAMILY HISTORY: Noncontributory. SOCIAL HISTORY: She lives in [place], [place], with spouse. She works for a local [employer], has medical insurance through [employer] [facility]. REVIEW OF SYSTEMS: A 10-point review of systems significant for limited endurance with some numbness in feet, swelling in feet, she does take gabapentin. MEDICATIONS: Lisinopril 40 mg p.o. daily, ceftriaxone IV every 24 hours, Protonix 40 mg p.o. daily, lactulose 30 grams p.o. b.i.d., Calmoseptine ointment, apply talc b.i.d., Tylenol 1000 mg p.o. q. 6 hours p.r.n. fever or mild pain, ibuprofen 100 mg p.o. q. 6 hours p.r.n. mild pain, OxyIR 5 mg p.o. q. 6 hours p.r.n. severe pain, Tramadol 50 mg p.o. q.i.d. p.r.n. moderate pain as she does complain of intermittent pain in her legs and feet and states that she takes Lasix p.r.n. for swelling in her feet. PHYSICAL EXAMINATION: GENERAL: Significant for an obese female with a BMI of 49.4. Alert and oriented. Sitting on edge of bed in no acute distress. VITAL SIGNS: She is afebrile. Her temperature was 99.8 on 07/29, respirations 22, pulse 82, blood pressure 153/67, O2 sat 94% on 5 liters O2. HEENT: O2 by nasal cannula in place. Vision, speech and hearing grossly intact. No oral lesion is noted. NECK: Supple without mass. HEART: Regular rhythm. LUNGS: Clear. ABDOMEN: Obese, soft, nontender. Bowel sounds present. EXTREMITIES: 1+ nonpitting edema in ankles. MUSCULOSKELETAL: The patient has functional active range of motion to all four extremities. Strength is grossly 4/5. She does have swelling in both hands and feet. Strength is generally 4/5, lower extremities difficult to fully assess due to swelling. NEUROLOGIC: Cognition grossly intact. Sensation impaired in both feet. IMPRESSION: 1. General debilitation secondary to a bout of sepsis felt to be due to Streptococcus pneumoniae bacteremia status post aggressive IV fluid resuscitation in addition to high dose Rocephin as well as pressor therapy. 2. Respiratory insufficiency, O2 dependent. 3. History of splenectomy with idiopathic thrombocytopenic purpura in the past. 4. Volume overload and vascular congestion on chest x-ray, cardiology followed, treated. 5. Diabetes mellitus, controlled. 6. Morbid obesity. 7. Leukocytosis, improving. 8. Thrombocytopenia with a history of splenectomy. 9. Acute renal failure, resolved. 10. Liver cirrhosis with mild hepatic encephalopathy due to elevated pneumonia, improved. 11. Pancreatic fullness, needs endoscopic ultrasound with NOHEMI Peterson in [place] planned. PLAN: The patient will have a comprehensive program with inpatient rehabilitation with goal of maximizing level of function and independence prior to discharge home with spouse. The patient will have PT, OT daily as per post admission physician assessment. Continue current medications and follow up with Dr. Subramanian et al as per their schedule. Followup with specialists as needed. Continue current medications. Treat peripheral edema empirically as per Dr. Subramanian. ESTIMATED LENGTH OF STAY: Two weeks. PROGNOSIS: Rehab prognosis appears good with goal of discharging home with spouse modified independent supervision for ADLs mobility skills. DIET: Regular. CODE STATUS: Full code. Job ID: [id number] DocumentID: [id number] Dictated Date: 07/30/2016 11:02:32 Deli Cook Date: 07/30/2016 12:19:58 Dictated By: BEBO DAVID MD MTDD
[2016-07-30] MEDS ORDERED: BUMETANIDE 1 MG (BUMEX) TAB PO NR (12:27)
--- NOTE | 2016-07-30 14:10 | Therapy Group Daily Note ---
Therapy Daily Group Note Other/Notes Pt ambulated to OT/PT lunch group with CGA using FWW. Lunch group consisted of socialization, recalling local history per patients, fine motor and UE skills for eating lunch. Pt was able to answer questions about own family history and interact with other patients. Pt contributed to discussions appropriately and was able to talk easily with other pt's. Pt was able to open containers/ packages by self then use regular utensils to feed self. After group, pt lying in bed with call light/phone in reach. All needs met in room. Start Time: 12:00 Stop Time: 13:15 Total Billed Treatment Time: 75 Total Billed Treatment 1-GRP ARNAUD DIA July 30, 2016 14:10
[2016-07-30] MEDS: KCL 10 MEQ TAB (MICRO K) PO SCH (14:16)
[2016-07-30 17:44] VITALS: BP 134/72
[2016-07-31 06:10] VITALS: BP 140/72
[2016-07-31] MEDS: ONDANSETRON 4 MG (ZOFRAN) ORAL DISSOLVE TAB PO PRN (06:51)
--- NOTE | 2016-07-31 09:04 | PM & R (SOAP) Progress Note ---
Subjective Subjective/Events-last exam Patient was seen in her room this AM Had some nausea RN has given RX Patient concerned about f/u serum lactic acid -will f/u see orders Review of Systems Gastrointestinal: Nausea Objective Exam Last Set of Vital Signs Vital Signs Date Time Temp Pulse Resp B/P (MAP) Pulse Ox O2 Delivery O2 Flow Rate FiO2 07/31/16 08:41 90 4.00 07/31/16 06:10 99.9 85 20 140/72 07/29/16 05:00 Nasal Cannula Capillary Refill : I&O Intake and Output 07/31/16 00:00 Intake Total 1050 ml Balance 1050 ml Intake Oral 1050 ml # Voids 5 # Bowel Movements 1 General: Alert, Oriented X3, Cooperative, No Acute Distress HEENT: Atraumatic, PERRLA, EOMI, Mucous Memb Moist/[place] Neck: Supple, No JVD Lungs: Clear to Auscultation Heart: Regular Rate Abdomen: Normal Bowel Sounds, Soft, No Tenderness Extremities: Other (edema at ankles improving somewhat with dose of Bumex) Neuro: Other (Generalized weakness) Results Lab Laboratory Tests 07/28/16 11:48: Glucometer 144H 07/28/16 16:10: Glucometer 160H 07/28/16 21:02: Glucometer 185H 07/29/16 06:39: Glucometer 136H 07/29/16 11:03: Glucometer 158H 07/29/16 15:57: Glucometer 154H 07/29/16 20:17: Glucometer 173H 07/30/16 05:30: White Blood Count 17.0H, Red Blood Count 3.60L, Hemoglobin 10.8L, Hematocrit 34L , Mean Corpuscular Volume 95, Mean Corpuscular Hemoglobin 30, Mean Corpuscular Hemoglobin Concent 32, Red Cell Distribution Width 15.8H, Platelet Count 92L, Mean Platelet Volume , Neutrophils (%) (Auto) 61, Lymphocytes (%) (Auto) 20, Monocytes (%) (Auto) 13H, Eosinophils (%) (Auto) 5, Basophils (%) (Auto) 1, Neutrophils # (Auto) 10.4H, Lymphocytes # (Auto) 3.5, Monocytes # (Auto) 2.2H, Eosinophils # (Auto) 0.8H, Basophils # (Auto) 0.1, Neutrophils % (Manual) 60, Lymphocytes % (Manual) 20, Monocytes % (Manual) 12, Eosinophils % (Manual) 0, Basophils % (Manual) 1, Metamyelocytes % 1, Band Neutrophils 1, Reactive Lymphocytes 5, Toxic Granulation 1+, Hypochromasia SLIGHT, Poikilocytosis SLIGHT , Anisocytosis SLIGHT, Macrocytosis SLIGHT, Target Cells SLIGHT, Sodium Level 140, Potassium Level 3.5L, Chloride Level 99, Carbon Dioxide Level 35H, Anion Gap 6, Blood Urea Nitrogen 8, Creatinine 0.66, Estimat Glomerular Filtration Rate > 60, BUN/Creatinine Ratio 12, Glucose Level 143H, Calcium Level 8.0L, Total Bilirubin 0.7, Aspartate Amino Transf (AST/SGOT) 27, Alanine Aminotransferase (ALT/SGPT) 31, Alkaline Phosphatase 65, Total Protein 5.8L, Albumin 2.5L 07/30/16 05:39: Glucometer 139H 07/30/16 10:53: Glucometer 175H 07/30/16 15:33: Glucometer 152H 07/30/16 22:02: Glucometer 161H 07/31/16 06:09: Glucometer 138H Assessment/Plan Assessment General debil s/p sepsis morbid Obesity 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 BEBO DAVID MD July 31, 2016 9:04 am
[2016-07-31] MEDS: KCL 10 MEQ TAB (MICRO K) PO SCH (09:55)
[2016-07-31] MEDS: GABAPENTIN 300 MG (NEURONTIN) CAP PO SCH ×3 (09:55→20:31)
[2016-07-31] MEDS: PANTOPRAZOLE 40 MG (PROTONIX) TAB PO SCH (09:55)
[2016-07-31] MEDS: lisINopril 20 MG (ZESTRIL) TAB PO SCH (09:55)
[2016-07-31] MEDS: BUMETANIDE 1 MG (BUMEX) TAB PO SCH (09:55)
[2016-07-31] MEDS: cefTRIAXone INJECTION 2,000 MG in NS (IVPB) 50 ML IV SCH (09:56)
[2016-07-31] MEDS: LACTULOSE SYRUP 10GM/15ML (ENULOSE) 30ML UDC PO SCH ×2 (09:56→20:05)
[2016-07-31] MEDS: MENTHOL/ZINC OXIDE (CALMOSEPTINE) 113 GM TUBE TOP SCH ×2 (09:56→20:32)
--- NOTE | 2016-07-31 13:31 | Physical Therapy Progress Note ---
Therapy Progress Note Attempted PT visit. Pt declined OOB activity or supine exercises noting she does not feel well today. No treatment rendered. Provided pt with Babar Allan. ARNAUD MUNIZ PT July 31, 2016 13:31
[2016-07-31 18:24] VITALS: BP 149/83
[2016-07-31 18:58] VITALS: BP 149/83
[2016-08-01 05:43] VITALS: BP 119/68
[2016-08-01] MEDS: PANTOPRAZOLE 40 MG (PROTONIX) TAB PO SCH (06:12)
[2016-08-01] MEDS: KCL 10 MEQ TAB (MICRO K) PO SCH (06:12)
[2016-08-01 09:43] VITALS: BP 157/77
[2016-08-01] MEDS: BUMETANIDE 1 MG (BUMEX) TAB PO SCH (09:50)
[2016-08-01] MEDS: lisINopril 20 MG (ZESTRIL) TAB PO SCH (09:50)
[2016-08-01] MEDS: LACTULOSE SYRUP 10GM/15ML (ENULOSE) 30ML UDC PO SCH ×2 (09:51→19:46)
[2016-08-01] MEDS: GABAPENTIN 300 MG (NEURONTIN) CAP PO SCH ×3 (09:51→20:10)
[2016-08-01] MEDS: cefTRIAXone INJECTION 2,000 MG in NS (IVPB) 50 ML IV SCH (09:52)
[2016-08-01] MEDS: MENTHOL/ZINC OXIDE (CALMOSEPTINE) 113 GM TUBE TOP SCH ×2 (09:59→20:11)
[2016-08-01] MEDS: IBUPROFEN TABLET 200 MG TAB PO PRN ×2 (11:27→21:30)
[2016-08-01 18:57] VITALS: BP 135/72
[2016-08-02 05:26] VITALS: BP 137/66
[2016-08-02] MEDS: PANTOPRAZOLE 40 MG (PROTONIX) TAB PO SCH (06:10)
[2016-08-02] MEDS: KCL 10 MEQ TAB (MICRO K) PO SCH (06:10)
[2016-08-02] MEDS: GABAPENTIN 300 MG (NEURONTIN) CAP PO SCH ×3 (09:30→20:49)
[2016-08-02] MEDS: BUMETANIDE 1 MG (BUMEX) TAB PO SCH (09:30)
[2016-08-02] MEDS: MENTHOL/ZINC OXIDE (CALMOSEPTINE) 113 GM TUBE TOP SCH ×2 (09:30→20:48)
[2016-08-02] MEDS: lisINopril 20 MG (ZESTRIL) TAB PO SCH (09:30)
[2016-08-02] MEDS: LACTULOSE SYRUP 10GM/15ML (ENULOSE) 30ML UDC PO SCH ×2 (09:30→20:49)
[2016-08-02] MEDS: cefTRIAXone INJECTION 2,000 MG in NS (IVPB) 50 ML IV SCH (09:30)
--- NOTE | 2016-08-02 11:49 | Occupational Ther Daily Note ---
OT Current Status-Daily Note Subjective Pt seen in room, up in bed, agreeable to OT. Pt stated that she had showered over the weekend and her helped her. Appearance Alert, cooperative Mental Status/Objective Functional [place] Measure 0=Not Assessed/NA 4=Minimal Assistance 1=Total Assistance 5=Supervision or Setup 2=Maximal Assistance 6=Modified [place] 3=Moderate Assistance 7=Complete [place] ADL-Treatment Pt struggled but was able to move from supine to sit EOB, with HOB elevated. She had some difficulty scooting to the edge of the bed but was able to do it without help. She also stood SBA, FWW (bed elevated) to walk to the bathroom and said she thought she actually stood easier when she pulled up from the walker rather that pushed up from the bed. She also said she had been walking in her room barefoot and was encouraged to wear slipper socks, especially when feet are very dry. Functional [place] Measure 0=Not Assessed/NA 4=Minimal Assistance 1=Total Assistance 5=Supervision or Setup 2=Maximal Assistance 6=Modified [place] 3=Moderate Assistance 7=Complete IndependenceIRFPAI Quality Coding Scale 6 Independent with activity with or without an assistive device 5 Patient requires set up or clean up by helper. Patient completes activity by themselves 4 Supervision or touching assist (CGA). [place] provide cues , steadying assist 3 The helper provides less than half the effort to complete the activity 2 The helper provides more than half the effort to complete the activity 1 Dependent. The helper does all the effort to complete an activity 7 Patient refused to complete or attempt activity 9 The patient did not perform the activity before the current illness or injury 88 Not attempted due to Medical conditions or safety concerns Grooming (FIM): 5 (SBA, standing at sink. pt educ to have walker in front of her, not to the side. Washed face and hands in shower. ) Bathing (FIM): 6 (Pt turned water on and off and retrieved towels from bars. She washed and dried all parts, using shower bench, grab bars, hand held shower and long handled sponge) Upper Body (FIM): 5 (Doffed and donned shirt with setup.) Lower Body Dressing (FIM): 5 (Donned pants with setup, supervision for standing. Dressing stick. sockaid. Donned slipper socks. bed elevated for easier standing, FWW. ) Toileting (FIM): 5 (Pt was able to wipe but expressed concern about doing this because leaning forward to wipe hurts her back. BSC over toilet, FWW) Toilet/Commode Transfer (FIM): 5 (On, off BSC over toilet, grab bar, FWW) Shower Transfer(FIM): 5 (SBA, FWW, shower chair, grab bars) Pt education on different types of toilet aids available to her and where to get them. Pt wondered about when she would be able to go home. She would be alone part of the time. LE edema impacts her independence, as does her oxygen tubing, which she did not use prior to admission. Pt left up in recliner, all needs met. Education OT Patient Education: Progress toward Goal/Update tx plan, Purpose of tx/ functional activities Teaching Recipient: Patient Response to Teaching: Verbalize Understanding OT Short Term Goals Short Term Goals Time Frame: August 04, 2016 Lower Body Dressing(FIM): 3 Toileting(FIM): 3 Transfers (B,C,W/C) (FIM): 3 Toilet/Commode Transfer(FIM): 3 1=Demonstrate adherence to instructed precautions during ADL tasks. 2=Patient will verbalize/demonstrate understanding of assistive devices/ modifications for ADL. 3=Patient will improve strength/tolerance for activity to enable patient to perform ADL's. OT Retirement Goals Retirement Goals Time Frame: Aug 20, 2016 Eating (FIM): 7 Eating (QC): 6 Groomin Oral Hygiene (QC): 6 Bathing(FIM): 6 Shower/Bathe Self (QC): 6 Upper Body Dressing(FIM): 6 Upper Body Dressing (QC): 6 Lower Body Dressing(FIM): 6 Lower Body Dressing (QC): 6 On/Off Footwear (QC): 6 Toileting(FIM): 6 Toileting Hygiene (QC): 6 Toilet/Commode Transfer(FIM): 6 Toilet/Commode Transfer (QC): 6 Shower Transfer(FIM): 6 Additional Goals: 2-Verbalize Understanding, 3-ImproveStrength/Unique 1=Demonstrate adherence to instructed precautions during ADL tasks. 2=Patient will verbalize/demonstrate understanding of assistive devices/ modifications for ADL. 3=Patient will improve strength/tolerance for activity to enable patient to perform ADL's. OT Education/Plan Problem List/Assessment Pt would benefit from skilled OT to increase her independence in basic self care to allow her to return home safely to live with her and to decrease caregiver burden. Discharge Recommendations Plan/Recommendations: Continue POC Treatment Plan/Plan of Care Patient would benefit from OT for education, treatment and training to promote independence in ADL's, mobility, safety and/or upper extremity function for ADL' s. Plan of Care: ADL Retraining, Functional Mobility, Group Exercise/Act as Ind ( education, exercise, activity tolerance, socialization, mobility), UE Funct Exercise/Act, UE Neuromus Re-Ed/Coord Treatment Duration: Aug 20, 2016 Visits Per Week: 10-11 Minutes/Day (M-F): 75-90 Minutes/Day (Sat/Arceo): PRN Agreement: Yes Rehab Potential: Fair Time/GCodes Start Time: 08:30 Stop Time: 09:30 Total Time Billed (hr/min): 60 Billed Treatment Time visit, 60 minutes ADL PEDRO COY OT August 02, 2016 11:49
--- NOTE | 2016-08-02 11:58 | Physical Therapy Daily Note ---
PT Daily Note-Current Subjective Patient in bed pre tx, agrees to PT, has 6/10 pain. Appearance Patient BTB post tx with nurse call, phone, tray, all needs met. Mental Status Patient Orientation: Normal For Age Transfers Functional [place] Measure 0=Not Assessed/NA 4=Minimal Assistance 1=Total Assistance 5=Supervision or Setup 2=Maximal Assistance 6=Modified [place] 3=Moderate Assistance 7=Complete IndependenceIRFPAI Quality Coding Scale 6 Independent with activity with or without an assistive device 5 Patient requires set up or clean up by helper. Patient completes activity by themselves 4 Supervision or touching assist (CGA). [place] provide cues , steadying assist 3 The helper provides less than half the effort to complete the activity 2 The helper provides more than half the effort to complete the activity 1 Dependent. The helper does all the effort to complete an activity 7 Patient refused to complete or attempt activity 9 The patient did not perform the activity before the current illness or injury 88 Not attempted due to Medical conditions or safety concerns Transfers (B, C, W/C) (FIM): 2 Scootin Rollin Supine to/from Sit: 2 Sit to/from Stand: 4 max assist to scoot and needed help with both legs getting back into bed Gait Training Gait (FIM): 2 Distance: 130'x2 Gait Level of Assist: 4 Gait Persons Needed: 1 Gait Assistive Device: FWW very slow ambulation, antalgic Exercises Standing: Heel/toe raises, Mini squats Standing Reps: 20 LAQ alternating for 5 min NuStep Minutes: 15 NuStep Workload: 4 Treatments bed mobility and transfers, ambulation, functional strengthening Assessment Current Status: Poor Progress No change in mobility. Patient had extreme chills upon entering the therapy gym and she was moaning and shivering. She asked for a blanket and one was retrieved for her . The response seemed very exaggerated and she was asked if she was having anxiety and she denies this,. PT Short Term Goals Short Term Goals Time Frame: August 04, 2016 Transfers (B,C,W/C) (FIM): 3 Gait (FIM): 2 Gait Distance Comment: 120' Gait Level of Assist: 4 (CGA) Wheelchair Distance: 20'x2 PT Longterm Goals Longterm Goals PT Targeting Acquisition Officer Goals Time Frame: August 18, 2016 Transfers (B,C,W/C) (FIM): 4 Sit to Lying (QC): 3 Lying-Sitting on Side/Bed(QC): 3 Sit to Stand (QC): 3 Rollin Roll Left to Right (QC): 3 Chair/[id number]-[id number] Xfer(QC): 4 (CGA) Car Transfer (QC): 4 Gait (FIM): 4 Distance: 150' Walk 10 feet (QC): 4 Walk 10ft-Uneven Surface(QC): 4 Walk 50ft with 2 Turns (QC): 4 Walk 150 ft (QC): 4 Gait Level of Assist: 4 (CGA) Gait Assistive Device: FWW Wheelchair (FIM): 5 Distance: 150' Wheelchair Level of Assist: 5 Wheel 50 feet with 2 turns (QC: 4 Stairs (FIM): 1 # of Steps: 1 1 Step (curb) (QC): 4 4 Steps (QC): 88 12 Steps (QC): 88 Stairs Level Of Assist: 4 Picking up an Object (QC): 88 PT Plan Problem List Problem List: Activity Tolerance, Functional Strength, Safety, Balance, Gait, Transfer, Bed Mobility, ROM Treatment/Plan Treatment Plan: Continue Plan of Care Treatment Plan: Bed Mobility, Education, Functional Activity Unique, Functional Strength, Group Therapy, Gait, Safety, Therapeutic Exercise, Transfers Treatment Duration: August 18, 2016 Visits Per Week: 10-11 Minutes/Day (M-F): 60-90 Minutes/Day (Sat/Arceo): 15-30 Safety Risks/Education Patient Education: Gait Training, Transfer Techniques, Correct Positioning, Safety Issues Teaching Recipient: Patient Teaching Methods: Demonstration, Discussion Response to Teaching: Reinforcement Needed Time/GCodes Time In: 1100 Time Out: 1200 Total Billed Treatment Time: 60 Total Billed Treatment 1 visit GT 30' EX 30' ENRRIQUE ROJO PT August 02, 2016 11:58
--- NOTE | 2016-08-02 14:01 | Physical Therapy Daily Note ---
PT Daily Note-Current Subjective Agreeable to PT. Reports she does not sleep well at night and thus is tired today. Mental Status Patient Orientation: Person, Place, Time, Situation Transfers Functional [place] Measure 0=Not Assessed/NA 4=Minimal Assistance 1=Total Assistance 5=Supervision or Setup 2=Maximal Assistance 6=Modified [place] 3=Moderate Assistance 7=Complete IndependenceIRFPAI Quality Coding Scale 6 Independent with activity with or without an assistive device 5 Patient requires set up or clean up by helper. Patient completes activity by themselves 4 Supervision or touching assist (CGA). [place] provide cues , steadying assist 3 The helper provides less than half the effort to complete the activity 2 The helper provides more than half the effort to complete the activity 1 Dependent. The helper does all the effort to complete an activity 7 Patient refused to complete or attempt activity 9 The patient did not perform the activity before the current illness or injury 88 Not attempted due to Medical conditions or safety concerns Transfers (B, C, W/C) (FIM): 3 Supine to/from Sit: 3 (asssist with both legs into bed) Sit to/from Stand: 4 (CGA and min assist occas.) pt performed sit to from stand x 4 reps this visit. Pt needed mod asssit to transfer sit to sup and skilled cues to sequence. Worked on scooting up in bed and pt able to do so with cues for hand placement and support at the feet to keep from sliding as she bridged. Gait Training Does the Patient Walk?: Yes Gait (FIM): 4 (CGA for safety) Distance (FIM): 3=150 ft Gait Assistive Device: FWW slow gait with decreased step length and limited DF. Tends to turn toes out B which is likely long standing; slight forward flexion at hips. Skilled cues for posture and to increase step length. Stair Training Pt walked across a curb step x 2 reps with FWW with min assist and constant cues for sequencing and encouragement. 2nd rep, pt improved dramatically and only needed CGA. Assessment Current Status: Good Progress Pt is progressing but is still very weak. Improved on the step with repetition. PT Short Term Goals Short Term Goals Time Frame: August 04, 2016 Transfers (B,C,W/C) (FIM): 3 (met) Gait (FIM): 2 (met) Gait Distance Comment: 120' Gait Level of Assist: 4 (CGA) Wheelchair Distance: 20'x2 PT Showroom Sales Consultant Goals Showroom Sales Consultant Goals PT Shelter Goals Time Frame: August 18, 2016 Transfers (B,C,W/C) (FIM): 4 Sit to Lying (QC): 3 Lying-Sitting on Side/Bed(QC): 3 Sit to Stand (QC): 3 Rollin Roll Left to Right (QC): 3 Chair/Ivt-ai-Tqltc Xfer(QC): 4 (CGA) Car Transfer (QC): 4 Gait (FIM): 4 Distance: 150' Walk 10 feet (QC): 4 Walk 10ft-Uneven Surface(QC): 4 Walk 50ft with 2 Turns (QC): 4 Walk 150 ft (QC): 4 Gait Level of Assist: 4 (CGA) Gait Assistive Device: FWW Wheelchair (FIM): 5 Distance: 150' Wheelchair Level of Assist: 5 Wheel 50 feet with 2 turns (QC: 4 Stairs (FIM): 1 # of Steps: 1 1 Step (curb) (QC): 4 4 Steps (QC): 88 12 Steps (QC): 88 Stairs Level Of Assist: 4 Picking up an Object (QC): 88 PT Plan Problem List Problem List: Activity Tolerance, Functional Strength, Safety, Balance, Gait, Transfer, Bed Mobility Treatment/Plan Treatment Plan: Continue Plan of Care Treatment Plan: Bed Mobility, Education, Functional Activity Unique, Functional Strength, Group Therapy, Gait, Safety, Therapeutic Exercise, Transfers Treatment Duration: August 18, 2016 Visits Per Week: 10-11 Minutes/Day (M-F): 60-90 Minutes/Day (Sat/Arceo): 15-30 Safety Risks/Education Patient Education: Transfer Techniques, Safety Issues Teaching Recipient: Patient Teaching Methods: Demonstration, Discussion Response to Teaching: Reinforcement Needed Time/GCodes Time In: 1330 Time Out: 1400 Total Billed Treatment Time: 30 Total Billed Treatment visit FA 15 GT 15 ARNAUD MUNIZ PT August 02, 2016 14:00
--- NOTE | 2016-08-02 14:20 | Occupational Ther Daily Note ---
OT Current Status-Daily Note Subjective Pt seen in room, up in bed, agreeable to OT. No pain mentioned. Appearance Alert, cooperative. Had slept through lunch Mental Status/Objective Functional [place] Measure 0=Not Assessed/NA 4=Minimal Assistance 1=Total Assistance 5=Supervision or Setup 2=Maximal Assistance 6=Modified [place] 3=Moderate Assistance 7=Complete [place] ADL-Treatment Functional [place] Measure 0=Not Assessed/NA 4=Minimal Assistance 1=Total Assistance 5=Supervision or Setup 2=Maximal Assistance 6=Modified [place] 3=Moderate Assistance 7=Complete IndependenceIRFPAI Quality Coding Scale 6 Independent with activity with or without an assistive device 5 Patient requires set up or clean up by helper. Patient completes activity by themselves 4 Supervision or touching assist (CGA). [place] provide cues , steadying assist 3 The helper provides less than half the effort to complete the activity 2 The helper provides more than half the effort to complete the activity 1 Dependent. The helper does all the effort to complete an activity 7 Patient refused to complete or attempt activity 9 The patient did not perform the activity before the current illness or injury 88 Not attempted due to Medical conditions or safety concerns Other Treatment Pt was able to move from supine to sit EOB by herself but with effort and with HOB elevated (pulling herself up more than pushing trunk up). Sit to stand with SBA for safety, FWW and bed elevated. Pt walked to gym with SBA for safety, FWW with OT managing O2 tank. Once in gym, she did 12 minutes bilat UE ex with arm bike, taking only one brief recovery period to get a drink of water. She also did 15 reps bialt UE ex with 2# weight, working on shoulders, elbows and forearms, as needed to help with transfers and sit to stand. Care was transferred to PT. Education OT Patient Education: Exercise program, Transfer techniques Teaching Recipient: Patient Teaching Methods: Discussion Response to Teaching: Verbalize Understanding OT Short Term Goals Short Term Goals Time Frame: August 04, 2016 Lower Body Dressing(FIM): 3 Toileting(FIM): 3 Transfers (B,C,W/C) (FIM): 3 Toilet/Commode Transfer(FIM): 3 1=Demonstrate adherence to instructed precautions during ADL tasks. 2=Patient will verbalize/demonstrate understanding of assistive devices/ modifications for ADL. 3=Patient will improve strength/tolerance for activity to enable patient to perform ADL's. OT Yarn Finisher Goals Yarn Finisher Goals Time Frame: Aug 20, 2016 Eating (FIM): 7 Eating (QC): 6 Groomin Oral Hygiene (QC): 6 Bathing(FIM): 6 Shower/Bathe Self (QC): 6 Upper Body Dressing(FIM): 6 Upper Body Dressing (QC): 6 Lower Body Dressing(FIM): 6 Lower Body Dressing (QC): 6 On/Off Footwear (QC): 6 Toileting(FIM): 6 Toileting Hygiene (QC): 6 Toilet/Commode Transfer(FIM): 6 Toilet/Commode Transfer (QC): 6 Shower Transfer(FIM): 6 Additional Goals: 2-Verbalize Understanding, 3-ImproveStrength/Unique 1=Demonstrate adherence to instructed precautions during ADL tasks. 2=Patient will verbalize/demonstrate understanding of assistive devices/ modifications for ADL. 3=Patient will improve strength/tolerance for activity to enable patient to perform ADL's. OT Education/Plan Problem List/Assessment Pt would benefit from skilled OT to increase her independence in basic self care to allow her to return home safely to live with her and to decrease caregiver burden. Discharge Recommendations Plan/Recommendations: Continue POC Treatment Plan/Plan of Care Patient would benefit from OT for education, treatment and training to promote independence in ADL's, mobility, safety and/or upper extremity function for ADL' s. Plan of Care: ADL Retraining, Functional Mobility, Group Exercise/Act as Ind ( education, exercise, activity tolerance, socialization, mobility), UE Funct Exercise/Act, UE Neuromus Re-Ed/Coord Treatment Duration: Aug 20, 2016 Visits Per Week: 10-11 Minutes/Day (M-F): 75-90 Minutes/Day (Sat/Arceo): PRN Agreement: Yes Rehab Potential: Fair Time/GCodes Start Time: 13:00 Stop Time: 13:30 Total Time Billed (hr/min): 30 Billed Treatment Time visit, 30 minutes exercise PEDRO COY OT August 02, 2016 14:20
[2016-08-02 18:37] VITALS: BP 158/68
--- NOTE | 2016-08-02 20:03 | PM & R (SOAP) Progress Note ---
Subjective Subjective/Events-last exam Patient was seen in her room this evening Patient mod assist for transfers Endurance gradulally improving Serum lactic acid much improved <1.0 Review of Systems Cardiovascular: Edema Objective Exam Last Set of Vital Signs Vital Signs Date Time Temp Pulse Resp B/P (MAP) Pulse Ox O2 Delivery O2 Flow Rate FiO2 08/02/16 18:37 98.9 86 18 158/68 92 5.00 07/29/16 05:00 Nasal Cannula Capillary Refill : I&O Intake and Output 08/01/16 23:59 Intake Total 1380 ml Balance 1380 ml Intake Oral 1380 ml # Voids 8 # Bowel Movements 1 General: Alert, Oriented X3, Cooperative, No Acute Distress HEENT: Atraumatic, PERRLA, EOMI, Mucous Memb Moist/[place] Neck: Supple, No JVD Lungs: Clear to Auscultation Heart: Regular Rate Abdomen: Normal Bowel Sounds, Soft, No Tenderness Extremities: Other (edema at ankles improving somewhat with dose of Bumex) Neuro: Other (Generalized weakness) Results Lab Laboratory Tests 07/30/16 22:02: Glucometer 161H 07/31/16 06:09: Glucometer 138H 07/31/16 10:57: Glucometer 140H 07/31/16 16:02: Glucometer 188H 07/31/16 20:19: Glucometer 156H 08/01/16 06:05: Lactic Acid Level 0.94 08/01/16 06:10: Glucometer 87 08/01/16 11:07: Glucometer 142H 08/01/16 15:52: Glucometer 154H 08/01/16 20:52: Glucometer 244H 08/02/16 05:56: Glucometer 125H 08/02/16 10:59: Glucometer 190H 08/02/16 16:12: Glucometer 168H Assessment/Plan Assessment General debil s/p sepsis with serum lactic acid now normalized morbid Obesity 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
[2016-08-02] MEDS: MICONAZOLE 2% POWDER (DESENEX AF) 90 GM TOP SCH (20:49)
[2016-08-03] MEDS: ONDANSETRON 4 MG (ZOFRAN) ORAL DISSOLVE TAB PO PRN (04:40)
[2016-08-03 05:29] VITALS: BP 145/75
[2016-08-03] MEDS: KCL 10 MEQ TAB (MICRO K) PO SCH (06:14)
[2016-08-03] MEDS: PANTOPRAZOLE 40 MG (PROTONIX) TAB PO SCH (06:14)
[2016-08-03] MEDS: MENTHOL/ZINC OXIDE (CALMOSEPTINE) 113 GM TUBE TOP SCH ×2 (08:26→20:11)
[2016-08-03] MEDS: lisINopril 20 MG (ZESTRIL) TAB PO SCH (08:26)
[2016-08-03] MEDS: MICONAZOLE 2% POWDER (DESENEX AF) 90 GM TOP SCH ×2 (08:26→20:10)
[2016-08-03] MEDS: LACTULOSE SYRUP 10GM/15ML (ENULOSE) 30ML UDC PO SCH ×2 (08:26→20:10)
[2016-08-03] MEDS: GABAPENTIN 300 MG (NEURONTIN) CAP PO SCH ×3 (08:26→20:10)
[2016-08-03] MEDS: BUMETANIDE 1 MG (BUMEX) TAB PO SCH (08:26)
--- NOTE | 2016-08-03 09:14 | PM & R (SOAP) Progress Note ---
Subjective Subjective/Events-last exam Patient was seen in her room this AM Stll with significant nonpitting edema both ankles.Patient min assist for transfers Endurance improving Review of Systems Cardiovascular: Edema Objective Exam Last Set of Vital Signs Vital Signs Date Time Temp Pulse Resp B/P (MAP) Pulse Ox O2 Delivery O2 Flow Rate FiO2 08/03/16 05:29 98.7 81 20 145/75 92 5.00 07/29/16 05:00 Nasal Cannula Capillary Refill : I&O Intake and Output 08/03/16 00:00 Intake Total 1350 ml Balance 1350 ml Intake Oral 1350 ml # Voids 5 # Bowel Movements 1 General: Alert, Oriented X3, Cooperative, No Acute Distress HEENT: Atraumatic, PERRLA, EOMI, Mucous Memb Moist/[place] Neck: Supple, No JVD Lungs: Clear to Auscultation Heart: Regular Rate Abdomen: Normal Bowel Sounds, Soft, No Tenderness Extremities: Other (edema at ankles improving somewhat with dose of Bumex) Neuro: Other (Generalized weakness) Results Lab Laboratory Tests 07/31/16 10:57: Glucometer 140H 07/31/16 16:02: Glucometer 188H 07/31/16 20:19: Glucometer 156H 08/01/16 06:05: Lactic Acid Level 0.94 08/01/16 06:10: Glucometer 87 08/01/16 11:07: Glucometer 142H 08/01/16 15:52: Glucometer 154H 08/01/16 20:52: Glucometer 244H 08/02/16 05:56: Glucometer 125H 08/02/16 10:59: Glucometer 190H 08/02/16 16:12: Glucometer 168H 08/02/16 20:54: Glucometer 195H 08/03/16 05:21: Glucometer 153H Assessment/Plan Assessment General debil s/p sepsis with serum lactic acid now normalized morbid Obesity 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
[2016-08-03] MEDS ORDERED: MAGNESIUM CITRATE 300 ML BTL PO NR (09:30)
[2016-08-03] MEDS: cefTRIAXone INJECTION 2,000 MG in NS (IVPB) 50 ML IV SCH (09:35)
--- NOTE | 2016-08-03 10:26 | Physical Therapy Daily Note ---
PT Daily Note-Current Subjective Patient in recliner pre tx, agrees to PT, has 4/10 pain. Patient is very lethargic. Appearance Patient in bed post tx with nurse call, phone, tray, all needs met. Mental Status Patient Orientation: Person, Place, Situation Attachments: Oxygen, IV 5L of O2 nasal canula Transfers Functional [place] Measure 0=Not Assessed/NA 4=Minimal Assistance 1=Total Assistance 5=Supervision or Setup 2=Maximal Assistance 6=Modified [place] 3=Moderate Assistance 7=Complete IndependenceIRFPAI Quality Coding Scale 6 Independent with activity with or without an assistive device 5 Patient requires set up or clean up by helper. Patient completes activity by themselves 4 Supervision or touching assist (CGA). [place] provide cues , steadying assist 3 The helper provides less than half the effort to complete the activity 2 The helper provides more than half the effort to complete the activity 1 Dependent. The helper does all the effort to complete an activity 7 Patient refused to complete or attempt activity 9 The patient did not perform the activity before the current illness or injury 88 Not attempted due to Medical conditions or safety concerns Transfers (B, C, W/C) (FIM): 2 Scootin Rollin Supine to/from Sit: 2 Sit to/from Stand: 4 cues for safety and hand placement Gait Training Gait (FIM): 4 Distance: 150'x2 Gait Level of Assist: 4 (CGA) Gait Persons Needed: 1 Gait Assistive Device: FWW slow, antalgic, may take occasional standing rest breaks. Exercises Seated Therapy Exercises: Ankle pumps, Hip flexion Seated Reps: 20 Standing: Hip Abduction, Heel/toe raises, Mini squats Standing Reps: 20 LAQ alternating for 5 min NuStep Minutes: 10 NuStep Workload: 4 Treatments bed mobility and transfers, ambulation, functional strengthening Assessment Current Status: Poor Progress Patient is very lethargic, needs cues to open her eyes during treatment. She will actually try to perform exercises with her eyes closed. Poor motivation. PT Short Term Goals Short Term Goals Time Frame: August 04, 2016 Transfers (B,C,W/C) (FIM): 3 Gait (FIM): 2 Gait Distance Comment: 120' Gait Level of Assist: 4 (CGA) Wheelchair Distance: 20'x2 PT Transportation Attendant Goals Half-Way Goals PT Half-Way Goals Time Frame: August 18, 2016 Transfers (B,C,W/C) (FIM): 4 Sit to Lying (QC): 3 Lying-Sitting on Side/Bed(QC): 3 Sit to Stand (QC): 3 Rollin Roll Left to Right (QC): 3 Chair/[place] Xfer(QC): 4 (CGA) Car Transfer (QC): 4 Gait (FIM): 4 Distance: 150' Walk 10 feet (QC): 4 Walk 10ft-Uneven Surface(QC): 4 Walk 50ft with 2 Turns (QC): 4 Walk 150 ft (QC): 4 Gait Level of Assist: 4 (CGA) Gait Assistive Device: FWW Wheelchair (FIM): 5 Distance: 150' Wheelchair Level of Assist: 5 Wheel 50 feet with 2 turns (QC: 4 Stairs (FIM): 1 # of Steps: 1 1 Step (curb) (QC): 4 4 Steps (QC): 88 12 Steps (QC): 88 Stairs Level Of Assist: 4 Picking up an Object (QC): 88 PT Plan Problem List Problem List: Activity Tolerance, Functional Strength, Safety, Balance, Gait, Transfer, Bed Mobility, ROM Treatment/Plan Treatment Plan: Continue Plan of Care Treatment Plan: Bed Mobility, Education, Functional Activity Unique, Functional Strength, Group Therapy, Gait, Safety, Therapeutic Exercise, Transfers Treatment Duration: August 18, 2016 Visits Per Week: 10-11 Minutes/Day (M-F): 60-90 Minutes/Day (Sat/Arceo): 15-30 Safety Risks/Education Patient Education: Gait Training, Transfer Techniques, Correct Positioning, Safety Issues Teaching Recipient: Patient Teaching Methods: Demonstration, Discussion Response to Teaching: Reinforcement Needed Time/GCodes Time In: 930 Time Out: 1030 Total Billed Treatment Time: 60 Total Billed Treatment 1 visit EX 30' GT 20' FA 10' ENRRIQUE ROJO PT August 03, 2016 10:25
--- NOTE | 2016-08-03 11:06 | Progress Note-Hospitalist ---
Subjective Date Seen 08/03/16 Subjective/Events-last exam Mrs. Richey feels that she is making progress and did ask about potential discharge planning. In discussion with staff bleed still note significant physical as well as some cognitive slowing. She requires a lot of encouragement for her physical therapy. She is still quite weak requiring significant assistance for activities of daily living. She is desaturating on 5 L with activity to the upper 80s remaining in the low 90s at rest. She reports significant lower extremity edema persists denies chest pain or shortness of breath at rest. She does note dyspnea on exertion. She has no past history of known thromboembolic disease. She feels that she is at baseline mental status and denies any chills fever or abdominal pain or dysuria. She's had a mild nonproductive cough. Objective Exam Vital Signs Vital Sign - Last 12Hours 07/28/16 10:30 Temp 99.6 Pulse 80 Resp 18 B/P (MAP) 151/75 Pulse Ox 92 O2 Delivery Nasal Cannula O2 Flow Rate 4.50 Capillary Refill : General Appearance: Chronically ill, Obese Respiratory: Chest Non Tender, No Accessory Muscle Use, No Respiratory Distress , Other (Fine basilar rales chest otherwise is clear no wheezing or rhonchi are noted.) Cardiovascular: Regular Rate, Rhythm, No Edema, No Gallop, No JVD, No Murmur, Normal Peripheral Pulses Gastrointestinal: Normal Bowel Sounds, No Organomegaly, No Pulsatile Mass, Non Tender, Soft Extremity: Other (Report some bilateral pedal edema pain is noted and Homans sign is negative bilaterally. Edema extends to the knees no erythema or ulceration is noted of the lower extremities.) Neurologic/Psychiatric: Other (Flat affect patient responds appropriately with some slowing of speech no dysarthria noted) Assessment/Plan Assessment and Plan Assess & Plan/Chief Complaint 1. 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 She continues to make slow progress. 2. Hypoxia is probably secondary to number 1. Obesity hypoventilation syndrome is likely and patient is going to be set up for home sleep study. Considering edema and immobilization DVT and pulmonary embolism are a concerned. We'll obtain bilateral venous Doppler studies. 3. Obesity and suspected premorbid deconditioning is likely also slowing progress. We did discuss the importance of giving maximal effort for the quickest gains with physical therapy. ANIKET BASS MD August 03, 2016 11:05
--- NOTE | 2016-08-03 11:23 | Occupational Ther Daily Note ---
OT Current Status-Daily Note Subjective Pt seen in room, sitting EOB. Reported she had taken herself to the bathroom earlier in the morning. No pain specifically mentioned. Appearance Pt was very confused with taking oxygen off and putting it back on. Also confused with donning socks and use of equipment. Mental Status/Objective Functional [place] Measure 0=Not Assessed/NA 4=Minimal Assistance 1=Total Assistance 5=Supervision or Setup 2=Maximal Assistance 6=Modified [place] 3=Moderate Assistance 7=Complete [place] Problem Solving(FIM): 4 (See ADLs) Attachments: Central Line ADL-Treatment Pt was too fatigued to walk into the bathroom to brush teeth. Washed face and hands in shower. All ADLs took longer than usual and required supervision for safety, sequencing Functional [place] Measure 0=Not Assessed/NA 4=Minimal Assistance 1=Total Assistance 5=Supervision or Setup 2=Maximal Assistance 6=Modified [place] 3=Moderate Assistance 7=Complete IndependenceIRFPAI Quality Coding Scale 6 Independent with activity with or without an assistive device 5 Patient requires set up or clean up by helper. Patient completes activity by themselves 4 Supervision or touching assist (CGA). [place] provide cues , steadying assist 3 The helper provides less than half the effort to complete the activity 2 The helper provides more than half the effort to complete the activity 1 Dependent. The helper does all the effort to complete an activity 7 Patient refused to complete or attempt activity 9 The patient did not perform the activity before the current illness or injury 88 Not attempted due to Medical conditions or safety concerns Bathing (FIM): 5 (Supervision. Washed and dried all parts, shower chair, grab bars, hand held shower. Reported she was able to get to luther area for bathing. LOB (wobble) when walking back to bed for dressing.) Upper Body (FIM): 5 (Struggled with picking out clean shirt from dirty one and how to manage oxygen tubing when taking shirt off/putting shirt on) Lower Body Dressing (FIM): 4 (Able to get pants on over feet but very frustrated with dressing stick. Confused with donning socks - after puttif first one on correctly, tried to put sock on sock aid with dressing stick and then on wrong end. Help to get pants up over hips) Transfers (B, C, W/C) (FIM): 5 (Was able to get both feet out of bed, although with struggling. Needs bed raised up, head of bed up to move from supine to sit. ) Shower Transfer(FIM): 4 (CGA, shower chair, grab bars, FWW) AT end of tx, pt very fatigued. Checked vitals - O2 at 92% on 5L nc, HR over 80. Nursing notified. Discussed using bed and chair alarm with nursing due to pt getting up by herself. Education OT Patient Education: Progress toward Goal/Update tx plan, Safety issues, Transfer techniques Teaching Recipient: Patient Teaching Methods: Discussion Response to Teaching: Reinforcement Needed OT Short Term Goals Short Term Goals Time Frame: August 04, 2016 Lower Body Dressing(FIM): 3 Toileting(FIM): 3 Transfers (B,C,W/C) (FIM): 3 Toilet/Commode Transfer(FIM): 3 1=Demonstrate adherence to instructed precautions during ADL tasks. 2=Patient will verbalize/demonstrate understanding of assistive devices/ modifications for ADL. 3=Patient will improve strength/tolerance for activity to enable patient to perform ADL's. OT Patient Ambassador Goals Patient Ambassador Goals Time Frame: Aug 20, 2016 Eating (FIM): 7 Eating (QC): 6 Groomin Oral Hygiene (QC): 6 Bathing(FIM): 6 Shower/Bathe Self (QC): 6 Upper Body Dressing(FIM): 6 Upper Body Dressing (QC): 6 Lower Body Dressing(FIM): 6 Lower Body Dressing (QC): 6 On/Off Footwear (QC): 6 Toileting(FIM): 6 Toileting Hygiene (QC): 6 Toilet/Commode Transfer(FIM): 6 Toilet/Commode Transfer (QC): 6 Shower Transfer(FIM): 6 Additional Goals: 2-Verbalize Understanding, 3-ImproveStrength/Unique 1=Demonstrate adherence to instructed precautions during ADL tasks. 2=Patient will verbalize/demonstrate understanding of assistive devices/ modifications for ADL. 3=Patient will improve strength/tolerance for activity to enable patient to perform ADL's. OT Education/Plan Problem List/Assessment Pt would benefit from skilled OT to increase her independence in basic self care to allow her to return home safely to live with her and to decrease caregiver burden. Discharge Recommendations Plan/Recommendations: Continue POC Treatment Plan/Plan of Care Patient would benefit from OT for education, treatment and training to promote independence in ADL's, mobility, safety and/or upper extremity function for ADL' s. Plan of Care: ADL Retraining, Functional Mobility, Group Exercise/Act as Ind ( education, exercise, activity tolerance, socialization, mobility), UE Funct Exercise/Act, UE Neuromus Re-Ed/Coord Treatment Duration: Aug 20, 2016 Visits Per Week: 10-11 Minutes/Day (M-F): 75-90 Minutes/Day (Sat/Arceo): PRN Agreement: Yes Rehab Potential: Fair Time/GCodes Start Time: 08:30 Stop Time: 09:30 Total Time Billed (hr/min): 60 Billed Treatment Time visit, 60 minutes ADL PEDRO COY OT August 03, 2016 11:23
--- NOTE | 2016-08-03 11:24 | Occupational Ther Daily Note ---
OT Current Status-Daily Note Subjective Pt seen in room, up in bed, agreeable to OT. No pain mentioned Appearance Sleepy Mental Status/Objective Functional [place] Measure 0=Not Assessed/NA 4=Minimal Assistance 1=Total Assistance 5=Supervision or Setup 2=Maximal Assistance 6=Modified [place] 3=Moderate Assistance 7=Complete [place] ADL-Treatment Pt transferred out of bed, needed to toilet, then transferred to recliner for exercise, then back to bed at end of tx. Walked SBA, FWW in room and bathroom but with help to manage O2 tubing Functional [place] Measure 0=Not Assessed/NA 4=Minimal Assistance 1=Total Assistance 5=Supervision or Setup 2=Maximal Assistance 6=Modified [place] 3=Moderate Assistance 7=Complete IndependenceIRFPAI Quality Coding Scale 6 Independent with activity with or without an assistive device 5 Patient requires set up or clean up by helper. Patient completes activity by themselves 4 Supervision or touching assist (CGA). [place] provide cues , steadying assist 3 The helper provides less than half the effort to complete the activity 2 The helper provides more than half the effort to complete the activity 1 Dependent. The helper does all the effort to complete an activity 7 Patient refused to complete or attempt activity 9 The patient did not perform the activity before the current illness or injury 88 Not attempted due to Medical conditions or safety concerns Toileting (FIM): 3 (Managed hygiene but needed a little help getting pants pulled up in back and over cloth placed under tummy folds by nursing, to help keep area dry. Tall toilet, FWW, grab bars) Transfers (B, C, W/C) (FIM): 3 (Pt was able to get legs off bed but needed assist to get both legs back in bed after tx. ) Toilet/Commode Transfer (FIM): 5 (SBA, tall toilet, grab bar, FWW.) Other Treatment Pt did 15 reps bilat UE exercise with 2# weight, working on elbows, forearms and wrists. She was able to do only 10 reps shoulder flexion/ext. She had difficulty keeping track of repetitions, sometimes started counting over again, sometimes counts did not match her movements. She also became very sleepy and dozed off at least once. Pt returned to bed, 4 rails up, bed alarm on, O2 in place at 5L/min, all needs met. Education OT Patient Education: Exercise program Teaching Recipient: Patient Response to Teaching: Reinforcement Needed OT Short Term Goals Short Term Goals Time Frame: August 04, 2016 Lower Body Dressing(FIM): 3 Toileting(FIM): 3 Transfers (B,C,W/C) (FIM): 3 Toilet/Commode Transfer(FIM): 3 1=Demonstrate adherence to instructed precautions during ADL tasks. 2=Patient will verbalize/demonstrate understanding of assistive devices/ modifications for ADL. 3=Patient will improve strength/tolerance for activity to enable patient to perform ADL's. OT Fdc Goals Artillery Maintenance Supervisor Goals Time Frame: Aug 20, 2016 Eating (FIM): 7 Eating (QC): 6 Groomin Oral Hygiene (QC): 6 Bathing(FIM): 6 Shower/Bathe Self (QC): 6 Upper Body Dressing(FIM): 6 Upper Body Dressing (QC): 6 Lower Body Dressing(FIM): 6 Lower Body Dressing (QC): 6 On/Off Footwear (QC): 6 Toileting(FIM): 6 Toileting Hygiene (QC): 6 Toilet/Commode Transfer(FIM): 6 Toilet/Commode Transfer (QC): 6 Shower Transfer(FIM): 6 Additional Goals: 2-Verbalize Understanding, 3-ImproveStrength/Unique 1=Demonstrate adherence to instructed precautions during ADL tasks. 2=Patient will verbalize/demonstrate understanding of assistive devices/ modifications for ADL. 3=Patient will improve strength/tolerance for activity to enable patient to perform ADL's. OT Education/Plan Problem List/Assessment Pt would benefit from skilled OT to increase her independence in basic self care to allow her to return home safely to live with her and to decrease caregiver burden. Discharge Recommendations Plan/Recommendations: Continue POC Treatment Plan/Plan of Care Patient would benefit from OT for education, treatment and training to promote independence in ADL's, mobility, safety and/or upper extremity function for ADL' s. Plan of Care: ADL Retraining, Functional Mobility, Group Exercise/Act as Ind ( education, exercise, activity tolerance, socialization, mobility), UE Funct Exercise/Act, UE Neuromus Re-Ed/Coord Treatment Duration: Aug 20, 2016 Visits Per Week: 10-11 Minutes/Day (M-F): 75-90 Minutes/Day (Sat/Arceo): PRN Agreement: Yes Rehab Potential: Fair Time/GCodes Start Time: 10:45 Stop Time: 11:15 Total Time Billed (hr/min): 30 Billed Treatment Time visit, 13 minutes ADL, 17 minutes exercise PEDRO COY OT August 03, 2016 11:24
--- NOTE | 2016-08-03 13:30 | Physical Therapy Daily Note ---
PT Daily Note-Current Subjective Patient in bed pre tx, agrees to PT, would like to get out of bed on the left side, has pain of 7/10 this afternoon. Appearance Patient on toilet post tx on riser, has nurse call for when she is done. Mental Status Patient Orientation: Person, Place, Situation Attachments: Oxygen Transfers Functional [place] Measure 0=Not Assessed/NA 4=Minimal Assistance 1=Total Assistance 5=Supervision or Setup 2=Maximal Assistance 6=Modified [place] 3=Moderate Assistance 7=Complete IndependenceIRFPAI Quality Coding Scale 6 Independent with activity with or without an assistive device 5 Patient requires set up or clean up by helper. Patient completes activity by themselves 4 Supervision or touching assist (CGA). [place] provide cues , steadying assist 3 The helper provides less than half the effort to complete the activity 2 The helper provides more than half the effort to complete the activity 1 Dependent. The helper does all the effort to complete an activity 7 Patient refused to complete or attempt activity 9 The patient did not perform the activity before the current illness or injury 88 Not attempted due to Medical conditions or safety concerns Transfers (B, C, W/C) (FIM): 4 Scootin Rollin Supine to/from Sit: 4 Sit to/from Stand: 4 patient performed bed mobility with min assist when getting up on the left side Gait Training Gait (FIM): 4 Distance: 150'x2 Gait Level of Assist: 4 Gait Persons Needed: 1 Gait Assistive Device: FWW CGA, slow, antalgic, needs occasional short standing rest breaks Exercises sit to stand 3 sets of 5 Treatments bed mobility and transfers, ambulation, functional strengthening Assessment Current Status: Fair Progress improved bed mobility PT Short Term Goals Short Term Goals Time Frame: August 04, 2016 Transfers (B,C,W/C) (FIM): 3 Gait (FIM): 2 Gait Distance Comment: 120' Gait Level of Assist: 4 (CGA) Wheelchair Distance: 20'x2 PT Senior Care Goals Senior Care Goals PT Oil And Gas Specialist Goals Time Frame: August 18, 2016 Transfers (B,C,W/C) (FIM): 4 Sit to Lying (QC): 3 Lying-Sitting on Side/Bed(QC): 3 Sit to Stand (QC): 3 Rollin Roll Left to Right (QC): 3 Chair/Hei-qk-Horll Xfer(QC): 4 (CGA) Car Transfer (QC): 4 Gait (FIM): 4 Distance: 150' Walk 10 feet (QC): 4 Walk 10ft-Uneven Surface(QC): 4 Walk 50ft with 2 Turns (QC): 4 Walk 150 ft (QC): 4 Gait Level of Assist: 4 (CGA) Gait Assistive Device: FWW Wheelchair (FIM): 5 Distance: 150' Wheelchair Level of Assist: 5 Wheel 50 feet with 2 turns (QC: 4 Stairs (FIM): 1 # of Steps: 1 1 Step (curb) (QC): 4 4 Steps (QC): 88 12 Steps (QC): 88 Stairs Level Of Assist: 4 Picking up an Object (QC): 88 PT Plan Problem List Problem List: Activity Tolerance, Functional Strength, Safety, Balance, Gait, Transfer, Bed Mobility, ROM Treatment/Plan Treatment Plan: Continue Plan of Care Treatment Plan: Bed Mobility, Education, Functional Activity Unique, Functional Strength, Group Therapy, Gait, Safety, Therapeutic Exercise, Transfers Treatment Duration: August 18, 2016 Visits Per Week: 10-11 Minutes/Day (M-F): 60-90 Minutes/Day (Sat/Arceo): 15-30 Safety Risks/Education Patient Education: Gait Training, Transfer Techniques, Correct Positioning, Safety Issues Teaching Recipient: Patient Teaching Methods: Demonstration, Discussion Response to Teaching: Reinforcement Needed Time/GCodes Time In: 1300 Time Out: 1330 Total Billed Treatment Time: 30 Total Billed Treatment 1 visit GT 20' EX 10' ENRRIQUE ROJO PT August 03, 2016 13:30
--- NOTE | 2016-08-03 15:35 | Diagnostic Imaging Report ---
EXAMINATION: Bilateral lower extremity duplex venous ultrasound. TECHNIQUE: DVT protocol. Multiple sonographic images with color Doppler and waveform interrogation were performed of the lower extremity veins, bilaterally, with compression and augmentation maneuvers. INDICATION: Bilateral leg edema. FINDINGS: The lower extremity veins from the common femoral veins to below the knee veins were examined with normal color-flow, compressibility and normal waveform demonstrated. The great saphenous vein bilaterally is patent. IMPRESSION: No evidence of DVT in either lower extremity. Dictated by: Dictated on workstation # [id number]
[2016-08-03 18:21] VITALS: BP 147/73
[2016-08-04 05:35] LABS: BASOPHILS # (AUTO) 0.2 10^3/uL (0.0-0.1); BASOPHILS % (AUTO) 1 % (0-10); EOSINOPHILS # (AUTO) 0.8 10^3/uL (0.0-0.3); EOSINOPHILS % (AUTO) 6 % (0-10); LYMPHOCYTES # (AUTO) 3.2 X 10^3 (1.0-4.0); LYMPHOCYTES % (AUTO) 24 % (12-44); MEAN CORPUSCULAR HEMOGLOBIN 30 PG (25-34); MEAN CORPUSCULAR HGB CONC 32 G/DL (32-36); MEAN CORPUSCULAR VOLUME 96 FL (80-99); MONOCYTES # (AUTO) 3.2 X 10^3 (0.0-1.0); MONOCYTES % (AUTO) 24 % (0-12); NEUTROPHILS # (AUTO) 5.8 X 10^3 (1.8-7.8); NEUTROPHILS % (AUTO) 44 % (42-75); PLATELET COUNT 74 10^3/uL (130-400); RED BLOOD COUNT 3.46 10^6/uL (4.35-5.85); RED CELL DISTRIBUTION WIDTH 15.6 % (10.0-14.5); WHITE BLOOD COUNT 13.2 10^3/uL (4.3-11.0)
[2016-08-04 05:52] VITALS: BP 142/70
[2016-08-04 05:56] LABS: ALANINE AMINOTRANSFERASE 15 U/L (0-55); ALBUMIN 2.4 G/DL (3.2-4.5); ANION GAP 7 MMOL/L (5-14); ASPARTATE AMINO TRANSFERASE 21 U/L (5-34); BILIRUBIN,TOTAL 1.1 MG/DL (0.1-1.0); BLOOD UREA NITROGEN 7 MG/DL (7-18); BUN/CREATININE RATIO 10; CALCIUM 8.1 MG/DL (8.5-10.1); CARBON DIOXIDE 35 MMOL/L (21-32); CHLORIDE 98 MMOL/L (98-107); CREATININE SERUM 0.68 MG/DL (0.60-1.30); GFR ESTIMATED > 60; GLUCOSE 139 MG/DL (70-105); POTASSIUM 4.1 MMOL/L (3.6-5.0); SODIUM 140 MMOL/L (135-145)
[2016-08-04] MEDS: KCL 10 MEQ TAB (MICRO K) PO SCH (06:05)
[2016-08-04] MEDS: PANTOPRAZOLE 40 MG (PROTONIX) TAB PO SCH (06:05)
[2016-08-04 06:09] LABS: ANISOCYTOSIS SLIGHT; EOSINOPHILS % (MANUAL) 15 %; LYMPHOCYTES % (MANUAL) 18 %; NEUTROPHILS % (MANUAL) 49 %; POIKILOCYTOSIS SLIGHT; SPHEROCYTES SLIGHT; TARGET CELLS SLIGHT
[2016-08-04] MEDS: ONDANSETRON 4 MG (ZOFRAN) ORAL DISSOLVE TAB PO PRN (06:39)
[2016-08-04] MEDS: LACTULOSE SYRUP 10GM/15ML (ENULOSE) 30ML UDC PO SCH ×2 (07:47→21:00)
[2016-08-04] MEDS: IBUPROFEN TABLET 200 MG TAB PO PRN ×2 (08:32→21:04)
[2016-08-04] MEDS: lisINopril 20 MG (ZESTRIL) TAB PO SCH (08:32)
[2016-08-04] MEDS: BUMETANIDE 1 MG (BUMEX) TAB PO SCH (08:32)
[2016-08-04] MEDS: cefTRIAXone INJECTION 2,000 MG in NS (IVPB) 50 ML IV SCH (08:33)
[2016-08-04] MEDS: GABAPENTIN 300 MG (NEURONTIN) CAP PO SCH ×3 (08:33→21:03)
[2016-08-04] MEDS: MENTHOL/ZINC OXIDE (CALMOSEPTINE) 113 GM TUBE TOP SCH ×2 (08:33→21:06)
[2016-08-04] MEDS: MICONAZOLE 2% POWDER (DESENEX AF) 90 GM TOP SCH ×2 (08:33→21:04)
--- NOTE | 2016-08-04 09:34 | Occupational Ther Daily Note ---
OT Current Status-Daily Note Subjective Pt seen in room, up in recliner, agreeable to OT but wants to do sponge bath only today (no shower) since she said she didn't sleep well last night. No pain mentioned specifically. Appearance Alert, cooperative, seems less confused today Mental Status/Objective Functional [place] Measure 0=Not Assessed/NA 4=Minimal Assistance 1=Total Assistance 5=Supervision or Setup 2=Maximal Assistance 6=Modified [place] 3=Moderate Assistance 7=Complete [place] ADL-Treatment Washed underarms and luther with setup, SBA with sponge bath. SBA for standing component, FWW Functional [place] Measure 0=Not Assessed/NA 4=Minimal Assistance 1=Total Assistance 5=Supervision or Setup 2=Maximal Assistance 6=Modified [place] 3=Moderate Assistance 7=Complete IndependenceIRFPAI Quality Coding Scale 6 Independent with activity with or without an assistive device 5 Patient requires set up or clean up by helper. Patient completes activity by themselves 4 Supervision or touching assist (CGA). [place] provide cues , steadying assist 3 The helper provides less than half the effort to complete the activity 2 The helper provides more than half the effort to complete the activity 1 Dependent. The helper does all the effort to complete an activity 7 Patient refused to complete or attempt activity 9 The patient did not perform the activity before the current illness or injury 88 Not attempted due to Medical conditions or safety concerns Eating (FIM): 7 (Pt cont to be able to feed herself without any assistance. No dentures) Grooming (FIM): 5 (SBA for safety, standing at sink, FWW for balance. Able to brush teeth and hair. Washed face and hands during bath) Upper Body (FIM): 5 (Doffed and donned t-shirt with setup. Pt intentionally put O2 tubing under shirt because she said she "lost it" a couple times during the night.) Lower Body Dressing (FIM): 5 (Donned pants with SBA for standing, using dressing stick to pick pants up off floor as needed. FWW for standing. Pt educ on use of sock aid) Other Treatment Pt sat in recliner while getting IV meds and did bilat UE strengthening activities with 1# weight on each arm. She had a little difficulty with grasping with land due to stiffness L index. She worked with pegs and with graded pinch clothespins to strengthen arms to help with transfers and standing with ADLs. At the end of the tx, she said, "I can sure feel that working in my shoulders!" Pt left up in recliner, all needs met. O2 at 5L/min in place, chair alarm on. Education OT Patient Education: Exercise program, Modified ADL techniques, Progress toward Goal/Update tx plan, Purpose of tx/functional activities, Use of adapted equipment Response to Teaching: Reinforcement Needed OT Short Term Goals Short Term Goals Time Frame: August 04, 2016 Lower Body Dressing(FIM): 3 Toileting(FIM): 3 Transfers (B,C,W/C) (FIM): 3 Toilet/Commode Transfer(FIM): 3 1=Demonstrate adherence to instructed precautions during ADL tasks. 2=Patient will verbalize/demonstrate understanding of assistive devices/ modifications for ADL. 3=Patient will improve strength/tolerance for activity to enable patient to perform ADL's. OT Mcfp Goals Sider Mechanic Goals Time Frame: Aug 20, 2016 Eating (FIM): 7 Eating (QC): 6 Groomin Oral Hygiene (QC): 6 Bathing(FIM): 6 Shower/Bathe Self (QC): 6 Upper Body Dressing(FIM): 6 Upper Body Dressing (QC): 6 Lower Body Dressing(FIM): 6 Lower Body Dressing (QC): 6 On/Off Footwear (QC): 6 Toileting(FIM): 6 Toileting Hygiene (QC): 6 Toilet/Commode Transfer(FIM): 6 Toilet/Commode Transfer (QC): 6 Shower Transfer(FIM): 6 Additional Goals: 2-Verbalize Understanding, 3-ImproveStrength/Unique 1=Demonstrate adherence to instructed precautions during ADL tasks. 2=Patient will verbalize/demonstrate understanding of assistive devices/ modifications for ADL. 3=Patient will improve strength/tolerance for activity to enable patient to perform ADL's. OT Education/Plan Problem List/Assessment Pt would benefit from skilled OT to increase her independence in basic self care to allow her to return home safely to live with her and to decrease caregiver burden. Discharge Recommendations Plan/Recommendations: Continue POC Treatment Plan/Plan of Care Patient would benefit from OT for education, treatment and training to promote independence in ADL's, mobility, safety and/or upper extremity function for ADL' s. Plan of Care: ADL Retraining, Functional Mobility, Group Exercise/Act as Ind ( education, exercise, activity tolerance, socialization, mobility), UE Funct Exercise/Act, UE Neuromus Re-Ed/Coord Treatment Duration: Aug 20, 2016 Visits Per Week: 10-11 Minutes/Day (M-F): 75-90 Minutes/Day (Sat/Arceo): PRN Agreement: Yes Rehab Potential: Fair Time/GCodes Start Time: 08:30 Stop Time: 09:30 Total Time Billed (hr/min): 60 Billed Treatment Time visit, 30 minutes ADL, 30 minutes exercise PEDRO COY OT August 04, 2016 09:34
--- NOTE | 2016-08-04 13:15 | Physical Therapy Daily Note ---
PT Daily Note-Current Subjective Pt sitting in recliner upon arrival. Pt agrees to PT. Pain Numeric Pain Scale: 7 Location: Lower Location Body Site: Back Pain Description: Ache, Cramping Comment: Pt's pain is constant ache but cramps/spasms at times. Mental Status Patient Orientation: Person, Place, Situation Attachments: Oxygen (4L) Transfers Functional [place] Measure 0=Not Assessed/NA 4=Minimal Assistance 1=Total Assistance 5=Supervision or Setup 2=Maximal Assistance 6=Modified [place] 3=Moderate Assistance 7=Complete IndependenceIRFPAI Quality Coding Scale 6 Independent with activity with or without an assistive device 5 Patient requires set up or clean up by helper. Patient completes activity by themselves 4 Supervision or touching assist ([facility]). [place] provide cues , steadying assist 3 The helper provides less than half the effort to complete the activity 2 The helper provides more than half the effort to complete the activity 1 Dependent. The helper does all the effort to complete an activity 7 Patient refused to complete or attempt activity 9 The patient did not perform the activity before the current illness or injury 88 Not attempted due to Medical conditions or safety concerns Scootin Rollin Roll Left to Right (QC): 2 Supine to/from Sit: 3 Sit to/from Stand: 4 Sit to Lying (QC): 3 Sit to Stand (QC): 4 Weight Bearing Weight Bearing Restriction: Full Weight Bearing Location Restriction: LE Bilateral Gait Training Does the Patient Walk?: Yes Distance (FIM): 3=150 ft Distance: 150' Walk 10 feet (QC): 5 Walk 50 ft with 2 Turns(QC): 5 Walk 150 ft (QC): 5 Gait Level of Assist: 5 Gait Persons Needed: 1 Gait Assistive Device: FWW Pt's ileana is slow and steady, no LOB. Exercises Standing: Hip Abduction, Heel/toe raises, Mini squats Standing Reps: 15 NuStep Minutes: 10 NuStep Workload: 4 Treatments Pt transferred from recliner to Standing using FWW at [facility]. Pt ambulated using FWW at [facility] in hallway to Therapy Gym. Pt used NuStep for 10m at Workload 4 then completed Standing EX at //bars to work on activity tolerance and balance as well as strengthening. Pt then returned to room to rest Supine in bed at end of tx. Pt transferred Standing to EOB at [facility] then EOB to Supine at Mod A to assist with lifting legs into bed. Pt is left Supine in bed at end of tx with all needs met. Assessment Pt continues to improve with activity tolerance and strength. PT Short Term Goals Short Term Goals Time Frame: August 04, 2016 Transfers (B,C,W/C) (FIM): 3 Gait (FIM): 2 Gait Distance Comment: 120' Gait Level of Assist: 4 (CGA) Wheelchair Distance: 20'x2 PT Trade Facilitator Goals Correction Goals PT Correction Goals Time Frame: August 18, 2016 Transfers (B,C,W/C) (FIM): 4 Sit to Lying (QC): 3 Lying-Sitting on Side/Bed(QC): 3 Sit to Stand (QC): 3 Rollin Roll Left to Right (QC): 3 Chair/Gik-cj-Oeibc Xfer(QC): 4 (CGA) Car Transfer (QC): 4 Gait (FIM): 4 Distance: 150' Walk 10 feet (QC): 4 Walk 10ft-Uneven Surface(QC): 4 Walk 50ft with 2 Turns (QC): 4 Walk 150 ft (QC): 4 Gait Level of Assist: 4 (CGA) Gait Assistive Device: FWW Wheelchair (FIM): 5 Distance: 150' Wheelchair Level of Assist: 5 Wheel 50 feet with 2 turns (QC: 4 Stairs (FIM): 1 # of Steps: 1 1 Step (curb) (QC): 4 4 Steps (QC): 88 12 Steps (QC): 88 Stairs Level Of Assist: 4 Picking up an Object (QC): 88 PT Plan Problem List Problem List: Activity Tolerance, Functional Strength, Safety, Balance, Gait, Transfer, Bed Mobility Treatment/Plan Treatment Plan: Continue Plan of Care Treatment Plan: Bed Mobility, Education, Functional Activity Unique, Functional Strength, Group Therapy, Gait, Safety, Therapeutic Exercise, Transfers Treatment Duration: August 18, 2016 Visits Per Week: 10-11 Minutes/Day (M-F): 60-90 Minutes/Day (Sat/Arceo): 15-30 Safety Risks/Education Patient Education: Gait Training, Transfer Techniques, Correct Positioning, Safety Issues Teaching Recipient: Patient Teaching Methods: Discussion Response to Teaching: Verbalize Understanding Time/GCodes Time In: 930 Time Out: 1030 Total Billed Treatment Time: 60 Total Billed Treatment visit, GT (15m), EX X2 (30m) & FA (15m) YORDAN FLORES GROUP EXERCISE CLASS INSTRUCTOR August 04, 2016 13:15
--- NOTE | 2016-08-04 13:47 | Occupational Ther Daily Note ---
OT Current Status-Daily Note Subjective Pt seen in room, up in bed, agreeable to OT. Pt reported pain was "good". Appearance Alert, cooperative, not confused Mental Status/Objective Functional [place] Measure 0=Not Assessed/NA 4=Minimal Assistance 1=Total Assistance 5=Supervision or Setup 2=Maximal Assistance 6=Modified [place] 3=Moderate Assistance 7=Complete [place] ADL-Treatment Functional [place] Measure 0=Not Assessed/NA 4=Minimal Assistance 1=Total Assistance 5=Supervision or Setup 2=Maximal Assistance 6=Modified [place] 3=Moderate Assistance 7=Complete IndependenceIRFPAI Quality Coding Scale 6 Independent with activity with or without an assistive device 5 Patient requires set up or clean up by helper. Patient completes activity by themselves 4 Supervision or touching assist (CGA). [place] provide cues , steadying assist 3 The helper provides less than half the effort to complete the activity 2 The helper provides more than half the effort to complete the activity 1 Dependent. The helper does all the effort to complete an activity 7 Patient refused to complete or attempt activity 9 The patient did not perform the activity before the current illness or injury 88 Not attempted due to Medical conditions or safety concerns Toileting (FIM): 5 (Managed clothing and hygiene. Tall toilet, grab bars, BSc over toilet. FWW) Transfers (B, C, W/C) (FIM): 3 (SBA to get legs out of bed, mod assist to lift both legs in to bed.) Toilet/Commode Transfer (FIM): 5 (SBA, BSC over toilet, grab bars. [place] several times to be able to push herself up off BSC) Other Treatment Pt walked to gym with SBA for safety, FWW and OT managing O2 tank. In gym, she did 15 reps bilat UE exercise with 2# weight and was able to track repetitions and switch sides without difficulty or cues. Exercise to strengthen arms for transfers and standing during ADLs (see toilet transfer info). Pt transferred into bed, left 4 rails up, O2 in place, bed alarm on, all needs met. Education OT Patient Education: Exercise program, Progress toward Goal/Update tx plan, Purpose of tx/functional activities Teaching Recipient: Patient Response to Teaching: Verbalize Understanding OT Short Term Goals Short Term Goals Time Frame: August 04, 2016 Lower Body Dressing(FIM): 3 Toileting(FIM): 3 Transfers (B,C,W/C) (FIM): 3 Toilet/Commode Transfer(FIM): 3 1=Demonstrate adherence to instructed precautions during ADL tasks. 2=Patient will verbalize/demonstrate understanding of assistive devices/ modifications for ADL. 3=Patient will improve strength/tolerance for activity to enable patient to perform ADL's. OT Building Carpenter Helper Goals Building Carpenter Helper Goals Time Frame: Aug 20, 2016 Eating (FIM): 7 Eating (QC): 6 Groomin Oral Hygiene (QC): 6 Bathing(FIM): 6 Shower/Bathe Self (QC): 6 Upper Body Dressing(FIM): 6 Upper Body Dressing (QC): 6 Lower Body Dressing(FIM): 6 Lower Body Dressing (QC): 6 On/Off Footwear (QC): 6 Toileting(FIM): 6 Toileting Hygiene (QC): 6 Toilet/Commode Transfer(FIM): 6 Toilet/Commode Transfer (QC): 6 Shower Transfer(FIM): 6 Additional Goals: 2-Verbalize Understanding, 3-ImproveStrength/Unique 1=Demonstrate adherence to instructed precautions during ADL tasks. 2=Patient will verbalize/demonstrate understanding of assistive devices/ modifications for ADL. 3=Patient will improve strength/tolerance for activity to enable patient to perform ADL's. OT Education/Plan Problem List/Assessment Pt would benefit from skilled OT to increase her independence in basic self care to allow her to return home safely to live with her and to decrease caregiver burden. Discharge Recommendations Plan/Recommendations: Continue POC Treatment Plan/Plan of Care Patient would benefit from OT for education, treatment and training to promote independence in ADL's, mobility, safety and/or upper extremity function for ADL' s. Plan of Care: ADL Retraining, Functional Mobility, Group Exercise/Act as Ind ( education, exercise, activity tolerance, socialization, mobility), UE Funct Exercise/Act, UE Neuromus Re-Ed/Coord Treatment Duration: Aug 20, 2016 Visits Per Week: 10-11 Minutes/Day (M-F): 75-90 Minutes/Day (Sat/Arceo): PRN Agreement: Yes Rehab Potential: Fair Time/GCodes Start Time: 11:30 Stop Time: 12:00 Total Time Billed (hr/min): 30 Billed Treatment Time visit, 25 minutes exercise, 5 minutes ADL PEDRO COY OT August 04, 2016 13:47
--- NOTE | 2016-08-04 15:45 | Physical Therapy Daily Note ---
PT Daily Note-Current Subjective Pt is laying Supine in bed upon arrival. Pt reports feeling very fatigued this afternoon. Pt agreed to PT. Pain Numeric Pain Scale: 8 Location: Lower Location Body Site: Back Pain Description: Ache Mental Status Patient Orientation: Person, Place, Situation Attachments: Oxygen Transfers Functional [place] Measure 0=Not Assessed/NA 4=Minimal Assistance 1=Total Assistance 5=Supervision or Setup 2=Maximal Assistance 6=Modified [place] 3=Moderate Assistance 7=Complete IndependenceIRFPAI Quality Coding Scale 6 Independent with activity with or without an assistive device 5 Patient requires set up or clean up by helper. Patient completes activity by themselves 4 Supervision or touching assist (CGA). [place] provide cues , steadying assist 3 The helper provides less than half the effort to complete the activity 2 The helper provides more than half the effort to complete the activity 1 Dependent. The helper does all the effort to complete an activity 7 Patient refused to complete or attempt activity 9 The patient did not perform the activity before the current illness or injury 88 Not attempted due to Medical conditions or safety concerns Exercises Supine Ex: Ankle pumps, Quad Set, Heel Slides, Straight leg raise, Hip abd/add Supine Reps: 15 Treatments Pt completed Supine Ex in bed due to fatigue. Pt's parents arrived during tx and pt okayed PT to advise pt's progress and what happens in regards to Tuesday mtg and discharges. At end of tx, pt remains Supine in bed with all needs met. Assessment Current Status: Fair Progress Pt fatigues easy although wants to get better to get home. PT Short Term Goals Short Term Goals Time Frame: August 04, 2016 Transfers (B,C,W/C) (FIM): 3 Gait (FIM): 2 Gait Distance Comment: 120' Gait Level of Assist: 4 (CGA) Wheelchair Distance: 20'x2 PT Correction Goals Correction Goals PT Rope Coiling Machine Operator Goals Time Frame: August 18, 2016 Transfers (B,C,W/C) (FIM): 4 Sit to Lying (QC): 3 Lying-Sitting on Side/Bed(QC): 3 Sit to Stand (QC): 3 Rollin Roll Left to Right (QC): 3 Chair/[place]-Fnlqf Xfer(QC): 4 (CGA) Car Transfer (QC): 4 Gait (FIM): 4 Distance: 150' Walk 10 feet (QC): 4 Walk 10ft-Uneven Surface(QC): 4 Walk 50ft with 2 Turns (QC): 4 Walk 150 ft (QC): 4 Gait Level of Assist: 4 (CGA) Gait Assistive Device: FWW Wheelchair (FIM): 5 Distance: 150' Wheelchair Level of Assist: 5 Wheel 50 feet with 2 turns (QC: 4 Stairs (FIM): 1 # of Steps: 1 1 Step (curb) (QC): 4 4 Steps (QC): 88 12 Steps (QC): 88 Stairs Level Of Assist: 4 Picking up an Object (QC): 88 PT Plan Problem List Problem List: Activity Tolerance, Functional Strength, Safety, Balance, Gait, Transfer, Bed Mobility Treatment/Plan Treatment Plan: Continue Plan of Care Treatment Plan: Bed Mobility, Education, Functional Activity Unique, Functional Strength, Group Therapy, Gait, Safety, Therapeutic Exercise, Transfers Treatment Duration: August 18, 2016 Visits Per Week: 10-11 Minutes/Day (M-F): 60-90 Minutes/Day (Sat/Arceo): 15-30 Safety Risks/Education Patient Education: Transfer Techniques, Correct Positioning, Safety Issues Teaching Recipient: Patient, Family Teaching Methods: Discussion Response to Teaching: Verbalize Understanding Time/GCodes Time In: 1330 Time Out: 1400 Total Billed Treatment Time: 30 Total Billed Treatment visit, EX (20m) & FA (10m) YORDAN FLORES PTA August 04, 2016 15:45
--- NOTE | 2016-08-04 17:17 | PM & R (SOAP) Progress Note ---
Subjective Subjective/Events-last exam Patient was seen in her room earlier today.Patient min assist for transfers remains [address] Lezama note Patient request reassessment with DR [facility] Review of Systems Pulmonary: Dyspnea Objective Exam Last Set of Vital Signs Vital Signs Date Time Temp Pulse Resp B/P (MAP) Pulse Ox O2 Delivery O2 Flow Rate FiO2 08/04/16 14:53 4.50 08/04/16 05:52 98.2 81 18 142/70 92 07/29/16 05:00 Nasal Cannula Capillary Refill : I&O Intake and Output 08/04/16 00:00 Intake Total 1080 ml Balance 1080 ml Intake Oral 1030 ml IV Total 50 ml # Voids 6 # Bowel Movements 1 General: Alert, Oriented X3, Cooperative, No Acute Distress HEENT: Atraumatic, PERRLA, EOMI, Mucous Memb Moist/Brocket Neck: Supple, No JVD Lungs: Clear to Auscultation Heart: Regular Rate Abdomen: Normal Bowel Sounds, Soft, No Tenderness Extremities: Other (edema at ankles improving somewhat with dose of Bumex) Neuro: Other (Generalized weakness) Results Lab Laboratory Tests 08/01/16 20:52: Glucometer 244H 08/02/16 05:56: Glucometer 125H 08/02/16 10:59: Glucometer 190H 08/02/16 16:12: Glucometer 168H 08/02/16 20:54: Glucometer 195H 08/03/16 05:21: Glucometer 153H 08/03/16 11:54: Glucometer 159H 08/03/16 15:57: Glucometer 178H 08/03/16 20:23: Glucometer 166H 08/04/16 05:14: Glucometer 143H 08/04/16 05:15: White Blood Count 13.2H, Red Blood Count 3.46L, Hemoglobin 10.5L, Hematocrit 33L , Mean Corpuscular Volume 96, Mean Corpuscular Hemoglobin 30, Mean Corpuscular Hemoglobin Concent 32, Red Cell Distribution Width 15.6H, Platelet Count 74L, Mean Platelet Volume , Neutrophils (%) (Auto) 44, Lymphocytes (%) (Auto) 24, Monocytes (%) (Auto) 24H, Eosinophils (%) (Auto) 6, Basophils (%) (Auto) 1, Neutrophils # (Auto) 5.8, Lymphocytes # (Auto) 3.2, Monocytes # (Auto) 3.2H, Eosinophils # (Auto) 0.8H, Basophils # (Auto) 0.2H, Neutrophils % (Manual) 49, Lymphocytes % (Manual) 18, Monocytes % (Manual) 18, Eosinophils % (Manual) 15, Poikilocytosis SLIGHT, Anisocytosis SLIGHT, Spherocytes SLIGHT, Target Cells SLIGHT, Sodium Level 140, Potassium Level 4.1, Chloride Level 98, Carbon Dioxide Level 35H, Anion Gap 7, Blood Urea Nitrogen 7, Creatinine 0.68, Estimat Glomerular Filtration Rate > 60, BUN/Creatinine Ratio 10, Glucose Level 139H, Calcium Level 8.1L, Total Bilirubin 1.1H, Aspartate Amino Transf (AST/SGOT) 21, Alanine Aminotransferase (ALT/SGPT) 15, Alkaline Phosphatase 52, Total Protein 6.0L, Albumin 2.4L 08/04/16 10:54: Glucometer 131H 08/04/16 15:38: Glucometer 182H Assessment/Plan Assessment General debil s/p sepsis with serum lactic acid now normalized morbid Obesity 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
[2016-08-04 17:20] VITALS: BP 134/72
[2016-08-05 06:00] VITALS: BP 147/66
[2016-08-05] MEDS: KCL 10 MEQ TAB (MICRO K) PO SCH (06:41)
[2016-08-05] MEDS: IBUPROFEN TABLET 200 MG TAB PO PRN ×2 (06:41→14:05)
[2016-08-05] MEDS: PANTOPRAZOLE 40 MG (PROTONIX) TAB PO SCH (06:41)
--- NOTE | 2016-08-05 07:19 | Pulmonary Progress Note ---
Subjective Subjective/Events-last exam still c/o SOB however improved. Exam Exam Vital Signs Date Time Temp Pulse Resp B/P (MAP) Pulse Ox O2 Delivery O2 Flow Rate FiO2 08/05/16 06:36 4.00 08/05/16 06:00 97.6 76 22 147/66 4.00 08/04/16 21:00 4.00 08/04/16 17:20 98.0 80 18 134/72 94 4.00 4.00 08/04/16 14:53 4.50 08/04/16 09:00 4.00 I & O 08/05/16 07:00 Intake Total 1100 ml Balance 1100 ml General Appearance: No Apparent Distress, Chronically ill, Obese Respiratory: Chest Non Tender, No Accessory Muscle Use, No Respiratory Distress , Other (Fine basilar rales chest otherwise is clear no wheezing or rhonchi are noted.) Cardiovascular: Regular Rate, Rhythm, No Edema, No Gallop, No JVD, No Murmur, Normal Peripheral Pulses Gastrointestinal: normal bowel sounds, non tender, soft Extremity: Normal Capillary Refill, Normal Inspection, Other (Report some bilateral pedal edema pain is noted and Homans sign is negative bilaterally. Edema extends to the knees no erythema or ulceration is noted of the lower extremities.) Neurologic/Psychiatric: Alert, Other (Flat affect patient responds appropriately with some slowing of speech no dysarthria noted) Skin: Normal Color, Warm/Dry Lymphatic: No Adenopathy Results Lab Laboratory Tests 08/04/16 05:15 Assessment/Plan Assessment/Plan Sepsis with strep bacteremia there is no signs of endocarditis on echo -Rocephin -s/p KALIN Acute respiratory distress - much improved Acute renal failure - resolved ?pancreatic mass -US liver pancreas and MRI are not definitive - will need outpatient EUS Hx of splenectomy and ITP Morbid obesity with OHS -will order vent to mask c02 on ABG is 57. -pt will benefit from vent to mask and is at risk for frequent readmissions and early without it. Thrombocytopenia with to history of splenectomy Clinical Quality Measures DVT/VTE Risk/Contraindication: Risk Factor Score Per Nursin RFS Level Per Nursing on Admit: 4+=Very High NAIDA HUGGINS DO August 05, 2016 07:19
[2016-08-05] MEDS ORDERED: RT-ALBUTEROL/IPRATROPIUM 3 ML (DUONEB) VIAL INH PRN (07:30)
--- NOTE | 2016-08-05 07:40 | Pulmonary Procedures ---
Pulmonary Procedures Date of Procedure Date of Service: August 05, 2016 Bronch Bronchoscopy with transbronchial washes bilaterally Preop DX pna mucous plugging Postop DX: same no endobronchial lesions Complications: none After informed consent obtained and formal time out pt was sedated using Diprivan. Bronchoscope was advanced through ET tube. An anatomical tour was undertaken down to the segmental bronchi bilaterally. No endobronchial lesions noted. copious amounts of sputum suctioned from lungs bilaterally. Pt tolerated procedure well. No complications noted. Stat CXR is pending. NAIDA HUGGINS DO August 05, 2016 07:40
--- NOTE | 2016-08-05 08:13 | Diagnostic Imaging Report ---
EXAM: CHEST 1 VIEW, AP/PA ONLY INDICATION: Post bronchoscopy. Sepsis. COMPARISON: Chest radiograph 07/27/2016. FINDINGS: Shallow inspiration accentuates the heart size and the pulmonary venous congestion. There is increasing atelectasis and/or infiltrate in the right midlung. No definite pleural effusion. No pneumothorax. Right PICC tip mid SVC. IMPRESSION: 1. New atelectasis or infiltrate in the right midlung. 2. Increasing pulmonary venous congestion Dictated by: Dictated on workstation # [id number]
[2016-08-05 08:20] LABS: ABG BASE EXCESS 10.6 MMOL/L (-2.5-2.5); ABG HCO3 36 MMOL/L (23-27); ABG OXYGEN SATURATION 95 % (94-100); ABG PCO2 57 MMHG (35-45); ABG PH 7.41 (7.37-7.43); ABG PO2 70 MMHG (79-93); ABG TCO2 37.5 MMOL/L (21.0-31.0); ALLENS TEST POSITIVE
[2016-08-05 08:21] LABS: PATIENT TEMP 97.9
--- NOTE | 2016-08-05 08:21 | PM & R (SOAP) Progress Note ---
Subjective Subjective/Events-last exam Patient was seen in her room this AM Discussed case with RN Gypsy Garnett note and orders ABG pending Will f/u re Dr Garnett recs.Edema in legs decreased with less tightness Review of Systems Pulmonary: Dyspnea Cardiovascular: Edema Objective Exam Last Set of Vital Signs Vital Signs Date Time Temp Pulse Resp B/P (MAP) Pulse Ox O2 Delivery O2 Flow Rate FiO2 08/05/16 07:57 4.00 08/05/16 06:00 97.6 76 22 147/66 08/04/16 17:20 94 Capillary Refill : I&O Intake and Output 08/05/16 00:00 Intake Total 1150 ml Balance 1150 ml Intake Oral 1150 ml # Voids 6 General: Alert, Oriented X3, Cooperative, No Acute Distress HEENT: Atraumatic, PERRLA, EOMI, Mucous Memb Moist/[place] Neck: Supple, No JVD Lungs: Clear to Auscultation Heart: Regular Rate Abdomen: Normal Bowel Sounds, Soft, No Tenderness Extremities: Other (edema at ankles improving with dose of Bumex) Neuro: Other (Generalized weakness) Results Lab Laboratory Tests 08/02/16 10:59: Glucometer 190H 08/02/16 16:12: Glucometer 168H 08/02/16 20:54: Glucometer 195H 08/03/16 05:21: Glucometer 153H 08/03/16 11:54: Glucometer 159H 08/03/16 15:57: Glucometer 178H 08/03/16 20:23: Glucometer 166H 08/04/16 05:14: Glucometer 143H 08/04/16 05:15: White Blood Count 13.2H, Red Blood Count 3.46L, Hemoglobin 10.5L, Hematocrit 33L , Mean Corpuscular Volume 96, Mean Corpuscular Hemoglobin 30, Mean Corpuscular Hemoglobin Concent 32, Red Cell Distribution Width 15.6H, Platelet Count 74L, Mean Platelet Volume , Neutrophils (%) (Auto) 44, Lymphocytes (%) (Auto) 24, Monocytes (%) (Auto) 24H, Eosinophils (%) (Auto) 6, Basophils (%) (Auto) 1, Neutrophils # (Auto) 5.8, Lymphocytes # (Auto) 3.2, Monocytes # (Auto) 3.2H, Eosinophils # (Auto) 0.8H, Basophils # (Auto) 0.2H, Neutrophils % (Manual) 49, Lymphocytes % (Manual) 18, Monocytes % (Manual) 18, Eosinophils % (Manual) 15, Poikilocytosis SLIGHT, Anisocytosis SLIGHT, Spherocytes SLIGHT, Target Cells SLIGHT, Sodium Level 140, Potassium Level 4.1, Chloride Level 98, Carbon Dioxide Level 35H, Anion Gap 7, Blood Urea Nitrogen 7, Creatinine 0.68, Estimat Glomerular Filtration Rate > 60, BUN/Creatinine Ratio 10, Glucose Level 139H, Calcium Level 8.1L, Total Bilirubin 1.1H, Aspartate Amino Transf (AST/SGOT) 21, Alanine Aminotransferase (ALT/SGPT) 15, Alkaline Phosphatase 52, Total Protein 6.0L, Albumin 2.4L 08/04/16 10:54: Glucometer 131H 08/04/16 15:38: Glucometer 182H 08/04/16 20:41: Glucometer 163H 08/05/16 05:54: Glucometer 120H Assessment/Plan Assessment General debil s/p sepsis with serum lactic acid now normalized morbid Obesity 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
[2016-08-05] MEDS: LACTULOSE SYRUP 10GM/15ML (ENULOSE) 30ML UDC PO SCH ×2 (08:43→21:25)
[2016-08-05] MEDS: BUMETANIDE 1 MG (BUMEX) TAB PO SCH (08:50)
[2016-08-05] MEDS: GABAPENTIN 300 MG (NEURONTIN) CAP PO SCH ×3 (08:50→21:43)
[2016-08-05] MEDS: MENTHOL/ZINC OXIDE (CALMOSEPTINE) 113 GM TUBE TOP SCH ×2 (08:51→21:44)
[2016-08-05] MEDS: lisINopril 20 MG (ZESTRIL) TAB PO SCH (08:51)
[2016-08-05] MEDS: MICONAZOLE 2% POWDER (DESENEX AF) 90 GM TOP SCH ×2 (08:51→21:45)
[2016-08-05] MEDS: RT-ALBUTEROL/IPRATROPIUM 3 ML (DUONEB) VIAL INH SCH ×3 (10:41→21:38)
--- NOTE | 2016-08-05 11:17 | Physical Therapy Daily Note ---
PT Daily Note-Current Subjective Pt laying supine in bed upon arrival. Pt agrees to PT. Pt reports feeling air from O2 in throat when she swallows (like taking a Alkaselzer). Mental Status Patient Orientation: Person, Place, Situation Attachments: Oxygen (4L) Transfers Functional [place] Measure 0=Not Assessed/NA 4=Minimal Assistance 1=Total Assistance 5=Supervision or Setup 2=Maximal Assistance 6=Modified [place] 3=Moderate Assistance 7=Complete IndependenceIRFPAI Quality Coding Scale 6 Independent with activity with or without an assistive device 5 Patient requires set up or clean up by helper. Patient completes activity by themselves 4 Supervision or touching assist (CGA). [place] provide cues , steadying assist 3 The helper provides less than half the effort to complete the activity 2 The helper provides more than half the effort to complete the activity 1 Dependent. The helper does all the effort to complete an activity 7 Patient refused to complete or attempt activity 9 The patient did not perform the activity before the current illness or injury 88 Not attempted due to Medical conditions or safety concerns Scootin Supine to/from Sit: 4 Sit to/from Stand: 5 Sit to Lying (QC): 4 Sit to Stand (QC): 5 Weight Bearing Weight Bearing Restriction: Full Weight Bearing Location Restriction: LE Bilateral Gait Training Does the Patient Walk?: Yes Distance (FIM): 3=150 ft Distance: 350' Walk 10 feet (QC): 5 Walk 50 ft with 2 Turns(QC): 5 Walk 150 ft (QC): 5 Gait Level of Assist: 5 Gait Persons Needed: 1 Gait Assistive Device: FWW Pt walks with slow and antalgic ileana but steady with no LOB. Wheelchair Training Does the Pt Use a Wheelchair?: No Exercises Standing: Hip Abduction, Heel/toe raises, 3 way Ex=Flex, Abd, Ext, Mini squats , Weight shifts Standing Reps: 15 NuStep Minutes: 10 NuStep Workload: 5 Treatments Pt transfers Supine to EOB at CGA-Min A then EOB to Standing at SBA. Pt ambulates using FWW at SBA in hallway before walking to Therapy Gym. Pt uses NuStep for 10m at Workload 5 then Standing Ex at //bars. Pt ambulates using FWW at SBA around [facility] X2 before returning to room to rest in bed. Pt transfers back to Supine in bed at Min A to lift legs into bed due to fatigue. Pt is Supine in bed with all needs met at end of tx. Assessment Current Status: Good Progress Pt is making progress with motivation to get home as well as activity tolerance especially while ambulating, strength and balance. PT Short Term Goals Short Term Goals Time Frame: August 04, 2016 Transfers (B,C,W/C) (FIM): 3 Gait (FIM): 2 Gait Distance Comment: 120' Gait Level of Assist: 4 (CGA) Wheelchair Distance: 20'x2 PT Content Development Manager Goals Long-Term Goals PT Long-Term Goals Time Frame: August 18, 2016 Transfers (B,C,W/C) (FIM): 4 Sit to Lying (QC): 3 Lying-Sitting on Side/Bed(QC): 3 Sit to Stand (QC): 3 Rollin Roll Left to Right (QC): 3 Chair/Drh-ao-Btbgl Xfer(QC): 4 (CGA) Car Transfer (QC): 4 Gait (FIM): 4 Distance: 150' Walk 10 feet (QC): 4 Walk 10ft-Uneven Surface(QC): 4 Walk 50ft with 2 Turns (QC): 4 Walk 150 ft (QC): 4 Gait Level of Assist: 4 (CGA) Gait Assistive Device: FWW Wheelchair (FIM): 5 Distance: 150' Wheelchair Level of Assist: 5 Wheel 50 feet with 2 turns (QC: 4 Stairs (FIM): 1 # of Steps: 1 1 Step (curb) (QC): 4 4 Steps (QC): 88 12 Steps (QC): 88 Stairs Level Of Assist: 4 Picking up an Object (QC): 88 PT Plan Problem List Problem List: Activity Tolerance, Functional Strength, Safety, Balance, Gait, Transfer, Bed Mobility Treatment/Plan Treatment Plan: Continue Plan of Care Treatment Plan: Bed Mobility, Education, Functional Activity Unique, Functional Strength, Group Therapy, Gait, Safety, Therapeutic Exercise, Transfers Treatment Duration: August 18, 2016 Visits Per Week: 10-11 Minutes/Day (M-F): 60-90 Minutes/Day (Sat/Arceo): 15-30 Safety Risks/Education Patient Education: Gait Training, Transfer Techniques, Correct Positioning, Safety Issues Teaching Recipient: Patient Teaching Methods: Discussion Response to Teaching: Verbalize Understanding Time/GCodes Time In: 1000 Time Out: 1100 Total Billed Treatment Time: 60 Total Billed Treatment visit, GT X2 (30m) & EX X2 (30m) YORDAN FLORES NEUROLOGICAL SURGEON August 05, 2016 11:17
--- NOTE | 2016-08-05 11:26 | Progress Note-Hospitalist ---
Progress Note Progress Notes/Assess & Plan Date Seen 08/05/16 Diagonsis/Assessment & Plan Dr. Wilkinson arranging for Ventimask for obvious severe sleep apnea Is pursuing disability likely since she feels like she can no longer work due to all these medical issues No pain is reported Now able to get around with standby assist which is greatly improved Insurance expects discharge on Tuesday ABG noted Chest x-ray shows some atelectasis that she needs to get incentive spirometer use increased and overall ambulation Max fever 99.6, pleasant,much improved, oriented 3, debilitated Regular rate rhythm, clear to auscultation bilaterally but diminished in the bases No edema Assessment: Severe sepsis with Strep pneumoniae bacteremia s/p aggressive IV fluid resuscitation in addition high dose Rocephin s/p DC empiric broad spectrum Zosyn and vancomycin due to ARF and culture results Respiratory insufficiency following Dilaudid 2mg IV given in ICU last week requiring biPAP now DC and in rehab for debility 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 Volume overload and vascular congestion on chest x-ray on admit, cardiology consulted due to the fact of high volume fluid resuscitation will place her at risk for congestive heart failure Diabetes mellitus Morbid obesity likely obstructive sleep apnea undiagnosed Leukocytosis but improved clinical picture Thrombocytopenia with to history of splenectomy s/p New ARF resolved now Liver cirrhosis with mild hepatic encephalopathy due to elevated ammonia Pancreatic "fullness" needs EUS by Dr Lam Drowsiness due to gabapentin Plan: Continue IV antibiotics Reconcile home meds Labs in am Decreased Gabapentin dosing due to oversedation NUHA LUCAS DO August 05, 2016 11:26
--- NOTE | 2016-08-05 11:38 | Occupational Ther Daily Note ---
OT Current Status-Daily Note Subjective Pt in bed, agrees to treatment. Pt has no c/o pain during session. Mental Status/Objective Functional [place] Measure 0=Not Assessed/NA 4=Minimal Assistance 1=Total Assistance 5=Supervision or Setup 2=Maximal Assistance 6=Modified [place] 3=Moderate Assistance 7=Complete [place] ADL-Treatment Pt requests shower this morning. Supine to sit with supervision. Sit to stand with SBA. Gait to restroom with FWW. Pt transferred to walk in shower with chair with close supervision using grab bars for balance and safety. Pt able to wash/dry all areas with SBA. Uses long handled sponge to wash lower legs and feet. Don pullover shirt with set up. Pt donned pants using dressing stick to start pants over feet. Stood with supervision for pant hike. Pt donned bilateral socks with sock aid with increased time. Grooming tasks completed standing at sink with SBA for balance. Pt brushed teeth and combed hair with SBA. Functional [place] Measure 0=Not Assessed/NA 4=Minimal Assistance 1=Total Assistance 5=Supervision or Setup 2=Maximal Assistance 6=Modified [place] 3=Moderate Assistance 7=Complete IndependenceIRFPAI Quality Coding Scale 6 Independent with activity with or without an assistive device 5 Patient requires set up or clean up by helper. Patient completes activity by themselves 4 Supervision or touching assist (CGA). [place] provide cues , steadying assist 3 The helper provides less than half the effort to complete the activity 2 The helper provides more than half the effort to complete the activity 1 Dependent. The helper does all the effort to complete an activity 7 Patient refused to complete or attempt activity 9 The patient did not perform the activity before the current illness or injury 88 Not attempted due to Medical conditions or safety concerns Grooming (FIM): 5 Bathing (FIM): 5 Upper Body (FIM): 5 Lower Body Dressing (FIM): 5 Shower Transfer(FIM): 5 Other Treatment Pt completed bilateral UE exercises to promote increased strength needed for ADLs and transfers. Pt performed shoulder flexion, abduction, biceps curls, and triceps extension exercises x15 reps with yellow theraband. Rest breaks between exercises. Pt performed sit to stand x10 to increase strength and safety for transfers. Pt able to complete sit to stand with SBA. Transfer to EOB with SBA. Pt requires assist to raise bilateral LE into bed. Pt in bed with needs met after session. OT Short Term Goals Short Term Goals Time Frame: August 04, 2016 Lower Body Dressing(FIM): 3 Toileting(FIM): 3 Transfers (B,C,W/C) (FIM): 3 Toilet/Commode Transfer(FIM): 3 1=Demonstrate adherence to instructed precautions during ADL tasks. 2=Patient will verbalize/demonstrate understanding of assistive devices/ modifications for ADL. 3=Patient will improve strength/tolerance for activity to enable patient to perform ADL's. OT Community Service Worker Goals Community Service Worker Goals Time Frame: Aug 20, 2016 Eating (FIM): 7 Eating (QC): 6 Groomin Oral Hygiene (QC): 6 Bathing(FIM): 6 Shower/Bathe Self (QC): 6 Upper Body Dressing(FIM): 6 Upper Body Dressing (QC): 6 Lower Body Dressing(FIM): 6 Lower Body Dressing (QC): 6 On/Off Footwear (QC): 6 Toileting(FIM): 6 Toileting Hygiene (QC): 6 Toilet/Commode Transfer(FIM): 6 Toilet/Commode Transfer (QC): 6 Shower Transfer(FIM): 6 Additional Goals: 2-Verbalize Understanding, 3-ImproveStrength/Unique 1=Demonstrate adherence to instructed precautions during ADL tasks. 2=Patient will verbalize/demonstrate understanding of assistive devices/ modifications for ADL. 3=Patient will improve strength/tolerance for activity to enable patient to perform ADL's. OT Education/Plan Problem List/Assessment Pt would benefit from skilled OT to increase her independence in basic self care to allow her to return home safely to live with her and to decrease caregiver burden. Discharge Recommendations Plan/Recommendations: Continue POC Treatment Plan/Plan of Care Patient would benefit from OT for education, treatment and training to promote independence in ADL's, mobility, safety and/or upper extremity function for ADL' s. Plan of Care: ADL Retraining, Functional Mobility, Group Exercise/Act as Ind ( education, exercise, activity tolerance, socialization, mobility), UE Funct Exercise/Act, UE Neuromus Re-Ed/Coord Treatment Duration: Aug 20, 2016 Visits Per Week: 10-11 Minutes/Day (M-F): 75-90 Minutes/Day (Sat/Arceo): PRN Agreement: Yes Rehab Potential: Fair Time/GCodes Start Time: 08:15 Stop Time: 09:15 Total Time Billed (hr/min): 60 Billed Treatment Time 1 visit, ADLx2(35minutes) EXx2(25minutes) MOIZ GOULD OT August 05, 2016 11:38
--- NOTE | 2016-08-05 12:07 | Occupational Ther Daily Note ---
OT Current Status-Daily Note Subjective Pt in bed, agrees to treatment. Mental Status/Objective Functional [place] Measure 0=Not Assessed/NA 4=Minimal Assistance 1=Total Assistance 5=Supervision or Setup 2=Maximal Assistance 6=Modified [place] 3=Moderate Assistance 7=Complete [place] Attachments: Oxygen ADL-Treatment Functional [place] Measure 0=Not Assessed/NA 4=Minimal Assistance 1=Total Assistance 5=Supervision or Setup 2=Maximal Assistance 6=Modified [place] 3=Moderate Assistance 7=Complete IndependenceIRFPAI Quality Coding Scale 6 Independent with activity with or without an assistive device 5 Patient requires set up or clean up by helper. Patient completes activity by themselves 4 Supervision or touching assist (CGA). [place] provide cues , steadying assist 3 The helper provides less than half the effort to complete the activity 2 The helper provides more than half the effort to complete the activity 1 Dependent. The helper does all the effort to complete an activity 7 Patient refused to complete or attempt activity 9 The patient did not perform the activity before the current illness or injury 88 Not attempted due to Medical conditions or safety concerns Toileting (FIM): 5 (Pt able to complete toileting hygiene and clothing management with SBA) Toilet/Commode Transfer (FIM): 5 (transfer to [facility] over toilet with SBA using grab bars for safety) Other Treatment Pt performed gait to therapy gym with FWW, no LOB noted. Arm bike x12 minutes to increase overall strength and activity tolerance needed for functional tasks. Pt performed activity with minimal resistance and slow pace. No rest breaks needed. Graded clothespin activity with bilateral hands to increase cardiologist/ pinch strength. Pt returned to room, transferred to bed with SBA. Sit to supine with assist for bilateral LE. Pt in bed with needs met after session. OT Short Term Goals Short Term Goals Time Frame: August 04, 2016 Lower Body Dressing(FIM): 3 Toileting(FIM): 3 Transfers (B,C,W/C) (FIM): 3 Toilet/Commode Transfer(FIM): 3 1=Demonstrate adherence to instructed precautions during ADL tasks. 2=Patient will verbalize/demonstrate understanding of assistive devices/ modifications for ADL. 3=Patient will improve strength/tolerance for activity to enable patient to perform ADL's. OT Jail Goals Jail Goals Time Frame: Aug 20, 2016 Eating (FIM): 7 Eating (QC): 6 Groomin Oral Hygiene (QC): 6 Bathing(FIM): 6 Shower/Bathe Self (QC): 6 Upper Body Dressing(FIM): 6 Upper Body Dressing (QC): 6 Lower Body Dressing(FIM): 6 Lower Body Dressing (QC): 6 On/Off Footwear (QC): 6 Toileting(FIM): 6 Toileting Hygiene (QC): 6 Toilet/Commode Transfer(FIM): 6 Toilet/Commode Transfer (QC): 6 Shower Transfer(FIM): 6 Additional Goals: 2-Verbalize Understanding, 3-ImproveStrength/Unique 1=Demonstrate adherence to instructed precautions during ADL tasks. 2=Patient will verbalize/demonstrate understanding of assistive devices/ modifications for ADL. 3=Patient will improve strength/tolerance for activity to enable patient to perform ADL's. OT Education/Plan Problem List/Assessment Pt would benefit from skilled OT to increase her independence in basic self care to allow her to return home safely to live with her and to decrease caregiver burden. Discharge Recommendations Plan/Recommendations: Continue POC Treatment Plan/Plan of Care Patient would benefit from OT for education, treatment and training to promote independence in ADL's, mobility, safety and/or upper extremity function for ADL' s. Plan of Care: ADL Retraining, Functional Mobility, Group Exercise/Act as Ind ( education, exercise, activity tolerance, socialization, mobility), UE Funct Exercise/Act, UE Neuromus Re-Ed/Coord Treatment Duration: Aug 20, 2016 Visits Per Week: 10-11 Minutes/Day (M-F): 75-90 Minutes/Day (Sat/Arceo): PRN Agreement: Yes Rehab Potential: Fair Time/GCodes Start Time: 11:20 Stop Time: 11:50 Total Time Billed (hr/min): 30 Billed Treatment Time 1 visit, EXx2(30minutes) MOIZ GOULD OT August 05, 2016 12:07
--- NOTE | 2016-08-05 15:31 | Physical Therapy Daily Note ---
PT Daily Note-Current Subjective Pt laying supine in bed upon arrival visiting with parents. Pt agrees to PT so she can work hard to discharge Tuesday (08/10). Pain Numeric Pain Scale: 7 Location: Lower Location Body Site: Back Pain Description: Ache Mental Status Patient Orientation: Person, Place, Time, Situation Attachments: Oxygen (4L) Transfers Functional [place] Measure 0=Not Assessed/NA 4=Minimal Assistance 1=Total Assistance 5=Supervision or Setup 2=Maximal Assistance 6=Modified [place] 3=Moderate Assistance 7=Complete IndependenceIRFPAI Quality Coding Scale 6 Independent with activity with or without an assistive device 5 Patient requires set up or clean up by helper. Patient completes activity by themselves 4 Supervision or touching assist (CGA). [place] provide cues , steadying assist 3 The helper provides less than half the effort to complete the activity 2 The helper provides more than half the effort to complete the activity 1 Dependent. The helper does all the effort to complete an activity 7 Patient refused to complete or attempt activity 9 The patient did not perform the activity before the current illness or injury 88 Not attempted due to Medical conditions or safety concerns Scootin Supine to/from Sit: 5 Sit to/from Stand: 5 Sit to Lying (QC): 5 Sit to Stand (QC): 5 Weight Bearing Weight Bearing Restriction: Full Weight Bearing Location Restriction: LE Bilateral Gait Training Does the Patient Walk?: Yes Distance (FIM): 3=150 ft Distance: 150' Walk 10 feet (QC): 5 Walk 50 ft with 2 Turns(QC): 5 Walk 150 ft (QC): 5 Gait Level of Assist: 5 Gait Persons Needed: 1 Gait Assistive Device: FWW Pt walks with slight antalgic gait pattern and slow ileana, no LOB. Wheelchair Training Does the Pt Use a Wheelchair?: No Stair Training Stair Training: Handrails/: uses walker #of Steps: 2 1 Step (curb) (QC): 4 Stairs: Pattern: Step to Treatments PT went over some pt education items such as what was discussed with Thermoforming Operator as for what pt would need for AE when discharging and that pt would need to work really hard so Tuesday discharge can stick and so no need for discharge to SNF. Pt agreed. Pt transferred from Supine to EOB at [facility] then EOB to Standing at SBA. Pt ambulated to Therapy Gym and practiced on Single step to prepare for stairs at home. Pt returned to room to rest. Pt transferred from Standing to EOB to Supine at SBA, even with lifting own legs into bed. Pt is Supine in bed at end of tx with all needs met. Assessment Current Status: Good Progress Pt is working hard and motivated to get home and not go to SNF. Pt has walked farther, completed more reps of EX and even completed Single Stair more easily today. PT Short Term Goals Short Term Goals Time Frame: August 04, 2016 Transfers (B,C,W/C) (FIM): 3 Gait (FIM): 2 Gait Distance Comment: 120' Gait Level of Assist: 4 (CGA) Wheelchair Distance: 20'x2 PT Mcc Goals Mcc Goals PT Pharmacy Analyst Goals Time Frame: August 18, 2016 Transfers (B,C,W/C) (FIM): 4 Sit to Lying (QC): 3 Lying-Sitting on Side/Bed(QC): 3 Sit to Stand (QC): 3 Rollin Roll Left to Right (QC): 3 Chair/Rwq-it-Litts Xfer(QC): 4 (CGA) Car Transfer (QC): 4 Gait (FIM): 4 Distance: 150' Walk 10 feet (QC): 4 Walk 10ft-Uneven Surface(QC): 4 Walk 50ft with 2 Turns (QC): 4 Walk 150 ft (QC): 4 Gait Level of Assist: 4 (CGA) Gait Assistive Device: FWW Wheelchair (FIM): 5 Distance: 150' Wheelchair Level of Assist: 5 Wheel 50 feet with 2 turns (QC: 4 Stairs (FIM): 1 # of Steps: 1 1 Step (curb) (QC): 4 4 Steps (QC): 88 12 Steps (QC): 88 Stairs Level Of Assist: 4 Picking up an Object (QC): 88 PT Plan Problem List Problem List: Activity Tolerance, Functional Strength, Safety, Balance, Gait, Transfer Treatment/Plan Treatment Plan: Continue Plan of Care Treatment Plan: Bed Mobility, Education, Functional Activity Unique, Functional Strength, Group Therapy, Gait, Safety, Therapeutic Exercise, Transfers Treatment Duration: August 18, 2016 Visits Per Week: 10-11 Minutes/Day (M-F): 60-90 Minutes/Day (Sat/Arceo): 15-30 Safety Risks/Education Patient Education: Gait Training, Transfer Techniques, Steps, Correct Positioning, Safety Issues Teaching Recipient: Patient, Family Teaching Methods: Discussion Response to Teaching: Verbalize Understanding Time/GCodes Time In: 1330 Time Out: 1400 Total Billed Treatment Time: 30 Total Billed Treatment visit, GT (15m) & FA (15m) YORDAN FLORES MANDOLIN REPAIR PERSON August 05, 2016 15:31
[2016-08-05 18:22] VITALS: BP 144/74
[2016-08-06] MEDS: RT-ALBUTEROL/IPRATROPIUM 3 ML (DUONEB) VIAL INH SCH ×4 (02:18→19:36)
[2016-08-06 05:00] VITALS: BP 151/76
[2016-08-06] MEDS: PANTOPRAZOLE 40 MG (PROTONIX) TAB PO SCH (06:09)
[2016-08-06] MEDS: KCL 10 MEQ TAB (MICRO K) PO SCH (06:09)
[2016-08-06] MEDS: IBUPROFEN TABLET 200 MG TAB PO PRN ×2 (06:11→20:29)
--- NOTE | 2016-08-06 07:09 | Pulmonary Progress Note ---
Subjective Subjective/Events-last exam pt feels slightly improved. Exam Exam Vital Signs Date Time Temp Pulse Resp B/P (MAP) Pulse Ox O2 Delivery O2 Flow Rate FiO2 08/06/16 05:00 99.5 88 24 151/76 90 3.50 08/06/16 02:18 93 4.00 08/05/16 21:38 94 4.00 08/05/16 21:00 4.00 08/05/16 18:22 97.6 79 18 144/74 4.00 08/05/16 14:14 92 4.00 08/05/16 07:57 4.00 I & O 08/06/16 07:00 Intake Total 420 ml Balance 420 ml General Appearance: No Apparent Distress, Chronically ill, Obese Respiratory: Chest Non Tender, No Accessory Muscle Use, No Respiratory Distress , Other (Fine basilar rales chest otherwise is clear no wheezing or rhonchi are noted.) Cardiovascular: Regular Rate, Rhythm, No Edema, No Gallop, No JVD, No Murmur, Normal Peripheral Pulses Gastrointestinal: non tender, soft, no organomegaly Extremity: Other (Report some bilateral pedal edema pain is noted and Homans sign is negative bilaterally. Edema extends to the knees no erythema or ulceration is noted of the lower extremities.) Neurologic/Psychiatric: Alert, Oriented x3, Other (Flat affect patient responds appropriately with some slowing of speech no dysarthria noted) Skin: Normal Color, Warm/Dry Assessment/Plan Assessment/Plan Sepsis with strep bacteremia there is no signs of endocarditis on echo -Rocephin -s/p KALIN Acute respiratory distress - much improved Acute renal failure - resolved ?pancreatic mass -US liver pancreas and MRI are not definitive - will need outpatient EUS Hx of splenectomy and ITP Morbid obesity with OHS -will order vent to mask c02 on ABG is 57. -pt will benefit from vent to mask and is at risk for frequent readmissions and early without it. Thrombocytopenia with to history of splenectomy 232 Clinical Quality Measures DVT/VTE Risk/Contraindication: Risk Factor Score Per Nursin RFS Level Per Nursing on Admit: 4+=Very High NAIDA HUGGINS DO August 06, 2016 07:09
[2016-08-06] MEDS: lisINopril 20 MG (ZESTRIL) TAB PO SCH (07:52)
[2016-08-06] MEDS: GABAPENTIN 300 MG (NEURONTIN) CAP PO SCH ×3 (07:52→20:24)
[2016-08-06] MEDS: LACTULOSE SYRUP 10GM/15ML (ENULOSE) 30ML UDC PO SCH ×2 (07:53→20:30)
[2016-08-06] MEDS: BUMETANIDE 1 MG (BUMEX) TAB PO SCH ×2 (07:53→13:08)
--- NOTE | 2016-08-06 08:00 | PM & R (SOAP) Progress Note ---
Subjective Subjective/Events-last exam Patient was seen in her room this AM Appreciate DR Garnett note and orders Appreciate ABG results.Patient min assist for transfers Objective Exam Last Set of Vital Signs Vital Signs Date Time Temp Pulse Resp B/P (MAP) Pulse Ox O2 Delivery O2 Flow Rate FiO2 08/06/16 05:00 99.5 88 24 151/76 90 3.50 Capillary Refill : I&O Intake and Output 08/06/16 00:00 Intake Total 670 ml Balance 670 ml Intake Oral 670 ml # Voids 4 General: Alert, Oriented X3, Cooperative, No Acute Distress HEENT: Atraumatic, PERRLA, EOMI, Mucous Memb Moist/[place] Neck: Supple, No JVD Lungs: Clear to Auscultation Heart: Regular Rate Abdomen: Normal Bowel Sounds, Soft, No Tenderness Extremities: Other Neuro: Other (Generalized weakness) Results Lab Laboratory Tests 08/03/16 11:54: Glucometer 159H 08/03/16 15:57: Glucometer 178H 08/03/16 20:23: Glucometer 166H 08/04/16 05:14: Glucometer 143H 08/04/16 05:15: White Blood Count 13.2H, Red Blood Count 3.46L, Hemoglobin 10.5L, Hematocrit 33L , Mean Corpuscular Volume 96, Mean Corpuscular Hemoglobin 30, Mean Corpuscular Hemoglobin Concent 32, Red Cell Distribution Width 15.6H, Platelet Count 74L, Mean Platelet Volume , Neutrophils (%) (Auto) 44, Lymphocytes (%) (Auto) 24, Monocytes (%) (Auto) 24H, Eosinophils (%) (Auto) 6, Basophils (%) (Auto) 1, Neutrophils # (Auto) 5.8, Lymphocytes # (Auto) 3.2, Monocytes # (Auto) 3.2H, Eosinophils # (Auto) 0.8H, Basophils # (Auto) 0.2H, Neutrophils % (Manual) 49, Lymphocytes % (Manual) 18, Monocytes % (Manual) 18, Eosinophils % (Manual) 15, Poikilocytosis SLIGHT, Anisocytosis SLIGHT, Spherocytes SLIGHT, Target Cells SLIGHT, Sodium Level 140, Potassium Level 4.1, Chloride Level 98, Carbon Dioxide Level 35H, Anion Gap 7, Blood Urea Nitrogen 7, Creatinine 0.68, Estimat Glomerular Filtration Rate > 60, BUN/Creatinine Ratio 10, Glucose Level 139H, Calcium Level 8.1L, Total Bilirubin 1.1H, Aspartate Amino Transf (AST/SGOT) 21, Alanine Aminotransferase (ALT/SGPT) 15, Alkaline Phosphatase 52, Total Protein 6.0L, Albumin 2.4L 08/04/16 10:54: Glucometer 131H 08/04/16 15:38: Glucometer 182H 08/04/16 20:41: Glucometer 163H 08/05/16 05:54: Glucometer 120H 08/05/16 08:08: Blood Gas Puncture Site LEFT RADIAL, Blood Gas Patient Temperature 97.9, Arterial Blood pH 7.41, Arterial Blood Partial Pressure CO2 57H, Arterial Blood Partial Pressure O2 70L, Arterial Blood HCO3 36H, Arterial Blood Total CO2 37.5H , Arterial Blood Oxygen Saturation 95, Arterial Blood Base Excess 10.6H, Sina Test POSITIVE, Blood Gas Ventilator Setting NO, Blood Gas Inspired Oxygen 4 L 08/05/16 11:05: Glucometer 155H 08/05/16 15:47: Glucometer 145H 08/05/16 20:27: Glucometer 162H 08/06/16 05:42: Glucometer 131H Assessment/Plan Assessment General debil s/p sepsis with serum lactic acid now normalized morbid Obesity HX of splenectomy with ITP in past Peripheral edema-improving Chronic stasis dermatitis of legs Nausea improved with RX Liver cirrhosis Probable NABIL Plan Continue PT/OT F/U with Hosptitalist service prn Monitor for incresed edema or recurrent nausea Recheck serum Lactic acid-done as per above improved Team Conference held 08/04/16-See report for full functional update and POC and ELOS F/U with BEBO Blount MD August 06, 2016 08:00
[2016-08-06] MEDS: MENTHOL/ZINC OXIDE (CALMOSEPTINE) 113 GM TUBE TOP SCH ×2 (08:06→20:30)
[2016-08-06] MEDS: MICONAZOLE 2% POWDER (DESENEX AF) 90 GM TOP SCH ×2 (08:06→20:30)
--- NOTE | 2016-08-06 10:38 | Progress Note-Hospitalist ---
Progress Note Progress Notes/Assess & Plan Date Seen 08/06/16 Diagonsis/Assessment & Plan Dr. Wilkinson arranging for Ventimask for obvious severe sleep apnea and that has been approved and will get that organized for DC next yovany Is pursuing disability likely since she feels like she can no longer work due to all these medical issues Labs pending at time of this note but increased Bumex to BID due to continued edema due to holding Bumex for 7 days and giving IVF aggressively due to severe sepsis Max fever 99.6, pleasant,much improved, oriented 3, debilitated Regular rate rhythm, clear to auscultation bilaterally but diminished in the bases Noted 1+ edema Assessment: Severe sepsis with Strep pneumoniae bacteremia s/p aggressive IV fluid resuscitation in addition high dose Rocephin s/p DC empiric broad spectrum Zosyn and vancomycin due to ARF and culture results Respiratory insufficiency following Dilaudid 2mg IV given in ICU l2 weeks ago requiring biPAP now DC and in rehab for debility 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 Volume overload and vascular congestion on chest x-ray on admit, cardiology consulted due to the fact of high volume fluid resuscitation will place her at risk for congestive heart failure Diabetes mellitus Morbid obesity likely obstructive sleep apnea undiagnosed Leukocytosis but improved clinical picture Thrombocytopenia with to history of splenectomy s/p New ARF resolved now Liver cirrhosis with mild hepatic encephalopathy due to elevated ammonia Pancreatic "fullness" needs EUS by Dr Lam Drowsiness due to gabapentin much improved Edema increased Bumex today Plan: Continue IV antibiotics Labs now and will review Bumex BID Decreased Gabapentin dosing due to oversedation NUHA LUCAS DO August 06, 2016 10:38
--- NOTE | 2016-08-06 10:52 | Occupational Ther Daily Note ---
OT Current Status-Daily Note Subjective Pt seen inroom, up in recliner, agreeable to OT. Wants to shower today. No pain mentioned Appearance Alert, cooperative Mental Status/Objective Functional [place] Measure 0=Not Assessed/NA 4=Minimal Assistance 1=Total Assistance 5=Supervision or Setup 2=Maximal Assistance 6=Modified [place] 3=Moderate Assistance 7=Complete [place] ADL-Treatment Pt has a walk in shower at home and will need an adjustable shower chair, possibly bariatric. May also need a BSC or toilet riser. Functional [place] Measure 0=Not Assessed/NA 4=Minimal Assistance 1=Total Assistance 5=Supervision or Setup 2=Maximal Assistance 6=Modified [place] 3=Moderate Assistance 7=Complete IndependenceIRFPAI Quality Coding Scale 6 Independent with activity with or without an assistive device 5 Patient requires set up or clean up by helper. Patient completes activity by themselves 4 Supervision or touching assist (CGA). [place] provide cues , steadying assist 3 The helper provides less than half the effort to complete the activity 2 The helper provides more than half the effort to complete the activity 1 Dependent. The helper does all the effort to complete an activity 7 Patient refused to complete or attempt activity 9 The patient did not perform the activity before the current illness or injury 88 Not attempted due to Medical conditions or safety concerns Grooming (FIM): 5 (Pt stood SBA, FWW at sink to brush teeth and comb hair. Washed face and hands in shower. ) Bathing (FIM): 5 (Pt washed and dried all parts, turned water on and off and retrieved towel from bar. Needed setup to cover IV site. Shower chair, grab bars , hand held shower.) Upper Body (FIM): 5 (Pt walked to closet with SBA, FWW to retrieve clean clothes. Pt educ on keeping walker in front of her and getting close to items in closet.) Lower Body Dressing (FIM): 5 (Supervision. Pt retrieved cleann clothes from closest with SBA, FWW and put dirty ones away. Pt got O2 tubing caught in pants but was able to problem-solve to fix it with skilled cues. Used sock aid for socks and put one sock on upside down so the device didn't work. Skilled cues to problem solve using the sock aid correctly.) Transfers (B, C, W/C) (FIM): 5 (SBA, FWW. Rocks a couple of times to push up. FWW. Reminders on managing oxygen tubing when walking) Shower Transfer(FIM): 5 (SBA, FWW, showewr chair, grab bars) All ADLs took longer than usual because pt was working on managing O2 tubing, both sitting and standing. Education OT Patient Education: Modified ADL techniques, Progress toward Goal/Update tx plan, Purpose of tx/functional activities, Safety issues, Use of adapted equipment Teaching Recipient: Patient Teaching Methods: Demonstration, Discussion Response to Teaching: Verbalize Understanding, Return Demonstration, Reinforcement Needed OT Short Term Goals Short Term Goals Time Frame: August 04, 2016 Lower Body Dressing(FIM): 3 Toileting(FIM): 3 Transfers (B,C,W/C) (FIM): 3 Toilet/Commode Transfer(FIM): 3 1=Demonstrate adherence to instructed precautions during ADL tasks. 2=Patient will verbalize/demonstrate understanding of assistive devices/ modifications for ADL. 3=Patient will improve strength/tolerance for activity to enable patient to perform ADL's. OT As400 Programmer Goals As400 Programmer Goals Time Frame: Aug 20, 2016 Eating (FIM): 7 Eating (QC): 6 Groomin Oral Hygiene (QC): 6 Bathing(FIM): 6 Shower/Bathe Self (QC): 6 Upper Body Dressing(FIM): 6 Upper Body Dressing (QC): 6 Lower Body Dressing(FIM): 6 Lower Body Dressing (QC): 6 On/Off Footwear (QC): 6 Toileting(FIM): 6 Toileting Hygiene (QC): 6 Toilet/Commode Transfer(FIM): 6 Toilet/Commode Transfer (QC): 6 Shower Transfer(FIM): 6 Additional Goals: 2-Verbalize Understanding, 3-ImproveStrength/Unique 1=Demonstrate adherence to instructed precautions during ADL tasks. 2=Patient will verbalize/demonstrate understanding of assistive devices/ modifications for ADL. 3=Patient will improve strength/tolerance for activity to enable patient to perform ADL's. OT Education/Plan Problem List/Assessment Pt would benefit from skilled OT to increase her independence in basic self care to allow her to return home safely to live with her and to decrease caregiver burden. Discharge Recommendations Plan/Recommendations: Continue POC Treatment Plan/Plan of Care Patient would benefit from OT for education, treatment and training to promote independence in ADL's, mobility, safety and/or upper extremity function for ADL' s. Plan of Care: ADL Retraining, Functional Mobility, Group Exercise/Act as Ind ( education, exercise, activity tolerance, socialization, mobility), UE Funct Exercise/Act, UE Neuromus Re-Ed/Coord Treatment Duration: Aug 20, 2016 Visits Per Week: 10-11 Minutes/Day (M-F): 75-90 Minutes/Day (Sat/Arceo): PRN Agreement: Yes Rehab Potential: Fair Time/GCodes Start Time: 08:30 Stop Time: 09:30 Total Time Billed (hr/min): 60 Billed Treatment Time visit, 60 minutes ADL PEDRO COY OT August 06, 2016 10:52
[2016-08-06 11:02] LABS: ALANINE AMINOTRANSFERASE 15 U/L (0-55); ALBUMIN 2.6 G/DL (3.2-4.5); ANION GAP 8 MMOL/L (5-14); ASPARTATE AMINO TRANSFERASE 27 U/L (5-34); BILIRUBIN,TOTAL 1.1 MG/DL (0.1-1.0); BLOOD UREA NITROGEN 6 MG/DL (7-18); BUN/CREATININE RATIO 8; CALCIUM 8.4 MG/DL (8.5-10.1); CARBON DIOXIDE 32 MMOL/L (21-32); CHLORIDE 99 MMOL/L (98-107); CREATININE SERUM 0.74 MG/DL (0.60-1.30); GFR ESTIMATED > 60; GLUCOSE 171 MG/DL (70-105); POTASSIUM 4.6 MMOL/L (3.6-5.0); SODIUM 139 MMOL/L (135-145); TOTAL PROTEIN 6.7 G/DL (6.4-8.2)
--- NOTE | 2016-08-06 11:03 | Physical Therapy Daily Note ---
PT Daily Note-Current Subjective Pt. agrees to Rx. States her family has installed rails at her steps at home. Agrees to go up down one single step today with FWW. Pain Numeric Pain Scale: 0-No Pain Appearance [place] blue facial coloring/lips Mental Status Patient Orientation: Normal For Age Attachments: Oxygen (4.5L) O2 sats this date 92% on 4.5 L . No titration attempted Transfers Functional [place] Measure 0=Not Assessed/NA 4=Minimal Assistance 1=Total Assistance 5=Supervision or Setup 2=Maximal Assistance 6=Modified [place] 3=Moderate Assistance 7=Complete IndependenceIRFPAI Quality Coding Scale 6 Independent with activity with or without an assistive device 5 Patient requires set up or clean up by helper. Patient completes activity by themselves 4 Supervision or touching assist (CGA). [place] provide cues , steadying assist 3 The helper provides less than half the effort to complete the activity 2 The helper provides more than half the effort to complete the activity 1 Dependent. The helper does all the effort to complete an activity 7 Patient refused to complete or attempt activity 9 The patient did not perform the activity before the current illness or injury 88 Not attempted due to Medical conditions or safety concerns Transfers (B, C, W/C) (FIM): 5 Scootin Rollin Supine to/from Sit: 5 Sit to/from Stand: 6 Bed to/from Chair: 5 Gait Training Does the Patient Walk?: Yes Gait (FIM): 5 Distance (FIM): 3=150 ft (00,150x2) Gait Level of Assist: 5 Gait Persons Needed: 1 Gait Assistive Device: FWW low, assist for O2 portable at 4.5L Stair Training Stair Training: Handrails/: uses walker Stairs (FIM): 2 #of Steps: 4 Stairs: Pattern: Step to Level of Assist: 4 Exercises Seated Therapy Exercises: Ankle pumps, Sit to stand, Long arc quads, Hip flexion Seated Reps: 15 Standing: Heel/toe raises, Mini squats Standing Reps: 10 pt. unable to tolerate laying flat for exercise. immediately rolled to side, breathing issues Assessment Current Status: Good Progress gaining strength and funct dly PT Short Term Goals Short Term Goals Time Frame: August 04, 2016 Transfers (B,C,W/C) (FIM): 3 Gait (FIM): 2 Gait Distance Comment: 120' Gait Level of Assist: 4 (CGA) Wheelchair Distance: 20'x2 PT Halfway Goals Ton Container Shipper Goals PT Halfway Goals Time Frame: August 18, 2016 Transfers (B,C,W/C) (FIM): 4 Sit to Lying (QC): 3 Lying-Sitting on Side/Bed(QC): 3 Sit to Stand (QC): 3 Rollin Roll Left to Right (QC): 3 Chair/Tmr-ul-Ysamd Xfer(QC): 4 (CGA) Car Transfer (QC): 4 Gait (FIM): 4 Distance: 150' Walk 10 feet (QC): 4 Walk 10ft-Uneven Surface(QC): 4 Walk 50ft with 2 Turns (QC): 4 Walk 150 ft (QC): 4 Gait Level of Assist: 4 (CGA) Gait Assistive Device: FWW Wheelchair (FIM): 5 Distance: 150' Wheelchair Level of Assist: 5 Wheel 50 feet with 2 turns (QC: 4 Stairs (FIM): 1 # of Steps: 1 1 Step (curb) (QC): 4 4 Steps (QC): 88 12 Steps (QC): 88 Stairs Level Of Assist: 4 Picking up an Object (QC): 88 PT Plan Treatment/Plan Treatment Plan: Continue Plan of Care Treatment Plan: Bed Mobility, Education, Functional Activity Unique, Functional Strength, Group Therapy, Gait, Safety, Therapeutic Exercise, Transfers Treatment Duration: August 18, 2016 Visits Per Week: 10-11 Minutes/Day (M-F): 60-90 Minutes/Day (Sat/Arceo): 15-30 Safety Risks/Education Patient Education: Gait Training, Transfer Techniques, Steps Teaching Recipient: Patient Teaching Methods: Demonstration, Discussion Response to Teaching: Verbalize Understanding, Return Demonstration, Reinforcement Needed Time/GCodes Time In: 1000 Time Out: 1100 Total Billed Treatment Time: 60 Total Billed Treatment 1,GT30m,FA15m,EX15m G Codes Necessary: JOELLE Piper LUSTER APPLICATOR August 06, 2016 11:03
[2016-08-06 11:06] LABS: BASOPHILS # (AUTO) 0.1 10^3/uL (0.0-0.1); BASOPHILS % (AUTO) 1 % (0-10); EOSINOPHILS # (AUTO) 0.6 10^3/uL (0.0-0.3); EOSINOPHILS % (AUTO) 5 % (0-10); LYMPHOCYTES # (AUTO) 2.7 X 10^3 (1.0-4.0); LYMPHOCYTES % (AUTO) 25 % (12-44); MEAN CORPUSCULAR HEMOGLOBIN 30 PG (25-34); MEAN CORPUSCULAR HGB CONC 31 G/DL (32-36); MEAN CORPUSCULAR VOLUME 96 FL (80-99); MONOCYTES # (AUTO) 2.2 X 10^3 (0.0-1.0); MONOCYTES % (AUTO) 20 % (0-12); NEUTROPHILS # (AUTO) 5.3 X 10^3 (1.8-7.8); NEUTROPHILS % (AUTO) 49 % (42-75); RED BLOOD COUNT 3.66 10^6/uL (4.35-5.85); RED CELL DISTRIBUTION WIDTH 15.5 % (10.0-14.5); WHITE BLOOD COUNT 10.8 10^3/uL (4.3-11.0)
[2016-08-06 11:07] LABS: PLATELET COUNT 58 10^3/uL (130-400)
[2016-08-06 11:13] LABS: BAND NEUTROPHILS 0 %; LYMPHOCYTES % (MANUAL) 26 %; NEUTROPHILS % (MANUAL) 47 %
[2016-08-06 11:14] LABS: BASOPHILS % (MANUAL) 2 %; EOSINOPHILS % (MANUAL) 11 %; TARGET CELLS SLIGHT
--- NOTE | 2016-08-06 12:01 | Occupational Ther Daily Note ---
OT Current Status-Daily Note Subjective Pt was seen in gym after PT. No pain mentioned. Appearance Alert, cooperative Mental Status/Objective Functional [place] Measure 0=Not Assessed/NA 4=Minimal Assistance 1=Total Assistance 5=Supervision or Setup 2=Maximal Assistance 6=Modified [place] 3=Moderate Assistance 7=Complete [place] ADL-Treatment Functional [place] Measure 0=Not Assessed/NA 4=Minimal Assistance 1=Total Assistance 5=Supervision or Setup 2=Maximal Assistance 6=Modified [place] 3=Moderate Assistance 7=Complete IndependenceIRFPAI Quality Coding Scale 6 Independent with activity with or without an assistive device 5 Patient requires set up or clean up by helper. Patient completes activity by themselves 4 Supervision or touching assist (CGA). [place] provide cues , steadying assist 3 The helper provides less than half the effort to complete the activity 2 The helper provides more than half the effort to complete the activity 1 Dependent. The helper does all the effort to complete an activity 7 Patient refused to complete or attempt activity 9 The patient did not perform the activity before the current illness or injury 88 Not attempted due to Medical conditions or safety concerns Transfers (B, C, W/C) (FIM): 5 (Pt was able to get in/out of chair with arms althought she had to rock back and forth several times to get up. She was also able to lift both legs up to put them in bed and to pull herself up in bed. She just needed help to raise the bed) Other Treatment In the gym, pt did 14 minutes bilat UE exercise on arm bike, set at 15W resistance (increased time), working at steady moderate pace. Exercise to strengthen arms to help her get up and down from chairs. Pt was provided handout on energy conservation and jarrell principles were discussed, with her verbal understanding. Pt does have decreased activity tolerance. She walked back to room, carrying O2 tubing (5L/min nc) and got into bed. O2 hooked up to wall. Pt left up in bed, 3 rails up, all needs met. Education OT Patient Education: Energy conservation, Progress toward Goal/Update tx plan , Purpose of tx/functional activities Teaching Recipient: Patient Teaching Methods: Discussion Response to Teaching: Verbalize Understanding, Reinforcement Needed OT Short Term Goals Short Term Goals Time Frame: August 04, 2016 Lower Body Dressing(FIM): 3 Toileting(FIM): 3 Transfers (B,C,W/C) (FIM): 3 Toilet/Commode Transfer(FIM): 3 1=Demonstrate adherence to instructed precautions during ADL tasks. 2=Patient will verbalize/demonstrate understanding of assistive devices/ modifications for ADL. 3=Patient will improve strength/tolerance for activity to enable patient to perform ADL's. OT Mcfp Goals Mcfp Goals Time Frame: Aug 20, 2016 Eating (FIM): 7 Eating (QC): 6 Groomin Oral Hygiene (QC): 6 Bathing(FIM): 6 Shower/Bathe Self (QC): 6 Upper Body Dressing(FIM): 6 Upper Body Dressing (QC): 6 Lower Body Dressing(FIM): 6 Lower Body Dressing (QC): 6 On/Off Footwear (QC): 6 Toileting(FIM): 6 Toileting Hygiene (QC): 6 Toilet/Commode Transfer(FIM): 6 Toilet/Commode Transfer (QC): 6 Shower Transfer(FIM): 6 Additional Goals: 2-Verbalize Understanding, 3-ImproveStrength/Unique 1=Demonstrate adherence to instructed precautions during ADL tasks. 2=Patient will verbalize/demonstrate understanding of assistive devices/ modifications for ADL. 3=Patient will improve strength/tolerance for activity to enable patient to perform ADL's. OT Education/Plan Problem List/Assessment Pt would benefit from skilled OT to increase her independence in basic self care to allow her to return home safely to live with her and to decrease caregiver burden. Discharge Recommendations Plan/Recommendations: Continue POC Treatment Plan/Plan of Care Patient would benefit from OT for education, treatment and training to promote independence in ADL's, mobility, safety and/or upper extremity function for ADL' s. Plan of Care: ADL Retraining, Functional Mobility, Group Exercise/Act as Ind ( education, exercise, activity tolerance, socialization, mobility), UE Funct Exercise/Act, UE Neuromus Re-Ed/Coord Treatment Duration: Aug 20, 2016 Visits Per Week: 10-11 Minutes/Day (M-F): 75-90 Minutes/Day (Sat/Arceo): PRN Agreement: Yes Rehab Potential: Fair Time/GCodes Start Time: 11:00 Stop Time: 11:30 Total Time Billed (hr/min): 30 Billed Treatment Time visit, exercise 15 minutes, ADL 15 minutes PEDRO COY OT August 06, 2016 12:01
--- NOTE | 2016-08-06 13:58 | Therapy Group Daily Note ---
Therapy Daily Group Note Patient Education Topic Other List Below (benefits of exercise) Exercises LE Seated Exercise, UE Exercise Other/Notes Pt. attended group PT session. Pt. ambulated with FWW and CGA to SBA and assist O2. Pt. was very social , laughing and making conversation. Group question : "what was your first car?" Pts. all had a great time sharing the old model they first drove. Pt. was glad to participate in pt. lead exercise by reading and demonstrating exercise from a prewritten card. Education focused on benefits of exercise. P. to room after group, in bed with lee at hand Start Time: 13:00 Stop Time: 13:40 Total Billed Treatment Time: 40 Total Billed Treatment 1,GRP JOELLE FONSECA MEDICAL OFFICE SPECIALIST August 06, 2016 13:58
[2016-08-06 16:31] VITALS: BP 151/64
[2016-08-07] MEDS: RT-ALBUTEROL/IPRATROPIUM 3 ML (DUONEB) VIAL INH SCH ×4 (02:49→19:26)
[2016-08-07 06:00] VITALS: BP 144/68
[2016-08-07] MEDS: PANTOPRAZOLE 40 MG (PROTONIX) TAB PO SCH (06:07)
[2016-08-07] MEDS: KCL 10 MEQ TAB (MICRO K) PO SCH (06:07)
[2016-08-07] MEDS: BUMETANIDE 1 MG (BUMEX) TAB PO SCH ×2 (08:28→13:33)
[2016-08-07] MEDS: IBUPROFEN TABLET 200 MG TAB PO PRN ×2 (08:29→20:43)
[2016-08-07] MEDS: GABAPENTIN 300 MG (NEURONTIN) CAP PO SCH ×3 (08:29→20:35)
[2016-08-07] MEDS: lisINopril 20 MG (ZESTRIL) TAB PO SCH (08:29)
[2016-08-07] MEDS: MENTHOL/ZINC OXIDE (CALMOSEPTINE) 113 GM TUBE TOP SCH ×2 (08:29→20:37)
[2016-08-07] MEDS: MICONAZOLE 2% POWDER (DESENEX AF) 90 GM TOP SCH ×2 (08:30→20:35)
[2016-08-07] MEDS: LACTULOSE SYRUP 10GM/15ML (ENULOSE) 30ML UDC PO SCH ×2 (08:30→20:36)
--- NOTE | 2016-08-07 10:59 | Physical Therapy Daily Note ---
PT Daily Note-Current Subjective Pt. denies pain, says she just returned to bed from sitting in the chair. Agrees to bed exercises. Mental Status Patient Orientation: Normal For Age Attachments: Oxygen Transfers Functional [place] Measure 0=Not Assessed/NA 4=Minimal Assistance 1=Total Assistance 5=Supervision or Setup 2=Maximal Assistance 6=Modified [place] 3=Moderate Assistance 7=Complete IndependenceIRFPAI Quality Coding Scale 6 Independent with activity with or without an assistive device 5 Patient requires set up or clean up by helper. Patient completes activity by themselves 4 Supervision or touching assist (CGA). [place] provide cues , steadying assist 3 The helper provides less than half the effort to complete the activity 2 The helper provides more than half the effort to complete the activity 1 Dependent. The helper does all the effort to complete an activity 7 Patient refused to complete or attempt activity 9 The patient did not perform the activity before the current illness or injury 88 Not attempted due to Medical conditions or safety concerns Exercises Supine Ex: Ankle pumps, Quad Set, Glut sets, Short Arc Quads, Straight leg raise, Hip abd/add Supine Reps: 20 Treatments LE exercises Assessment Current Status: Good Progress Good tolerance with leg exercises, assist needed with SLR and supine hip abd. Pt. in bed post session with call light and all needs met. PT Short Term Goals Short Term Goals Time Frame: August 04, 2016 Transfers (B,C,W/C) (FIM): 3 Gait (FIM): 2 Gait Distance Comment: 120' Gait Level of Assist: 4 (CGA) Wheelchair Distance: 20'x2 PT Butt Presser Goals Usp Goals PT Butt Presser Goals Time Frame: August 18, 2016 Transfers (B,C,W/C) (FIM): 4 Sit to Lying (QC): 3 Lying-Sitting on Side/Bed(QC): 3 Sit to Stand (QC): 3 Rollin Roll Left to Right (QC): 3 Chair/Hqh-fz-Lrnkd Xfer(QC): 4 (CGA) Car Transfer (QC): 4 Gait (FIM): 4 Distance: 150' Walk 10 feet (QC): 4 Walk 10ft-Uneven Surface(QC): 4 Walk 50ft with 2 Turns (QC): 4 Walk 150 ft (QC): 4 Gait Level of Assist: 4 (CGA) Gait Assistive Device: FWW Wheelchair (FIM): 5 Distance: 150' Wheelchair Level of Assist: 5 Wheel 50 feet with 2 turns (QC: 4 Stairs (FIM): 1 # of Steps: 1 1 Step (curb) (QC): 4 4 Steps (QC): 88 12 Steps (QC): 88 Stairs Level Of Assist: 4 Picking up an Object (QC): 88 PT Plan Treatment/Plan Treatment Plan: Continue Plan of Care Treatment Plan: Bed Mobility, Education, Functional Activity Unique, Functional Strength, Group Therapy, Gait, Safety, Therapeutic Exercise, Transfers Treatment Duration: August 18, 2016 Visits Per Week: 10-11 Minutes/Day (M-F): 60-90 Minutes/Day (Sat/Arceo): 15-30 Time/GCodes Time In: 1045 Time Out: 1100 Total Billed Treatment Time: 15 Total Billed Treatment 1, Ex 15' OKSANA FLANAGAN PT August 07, 2016 10:59
--- NOTE | 2016-08-07 12:02 | Progress Note-Hospitalist ---
Progress Note Progress Notes/Assess & Plan Date Seen 08/07/16 Diagonsis/Assessment & Plan Bumex dosing twice a day has really improved urinary output and subsequent lower extremity edema No severe problems and using ISS Crackles still remain and left lobe base from pneumonia but white count is normal and no fever AF pleasant,much improved, oriented 3, debilitated Regular rate rhythm, clear to auscultation bilaterally but diminished in the bases and subtle crackles LLL Noted 1+ edema but much improved Assessment: Severe sepsis with Strep pneumoniae bacteremia s/p aggressive IV fluid resuscitation in addition high dose Rocephin s/p DC empiric broad spectrum Zosyn and vancomycin due to ARF and culture results Respiratory insufficiency following Dilaudid 2mg IV given in ICU l2 weeks ago requiring biPAP now DC and in rehab for debility 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 Volume overload and vascular congestion on chest x-ray on admit, cardiology consulted due to the fact of high volume fluid resuscitation will place her at risk for congestive heart failure but now added Bumex BID and helping edema Diabetes mellitus Morbid obesity likely obstructive sleep apnea undiagnosed Leukocytosis but improved clinical picture Thrombocytopenia with to history of splenectomy s/p New ARF resolved now Liver cirrhosis with mild hepatic encephalopathy due to elevated ammonia Pancreatic "fullness" needs EUS by Dr Lam Drowsiness due to gabapentin much improved Edema increased Bumex Plan: Continue IV antibiotics Bumex BID DC Tuesday IS for residual pneumonia crackles LLL NUHA LUCAS DO August 07, 2016 12:02
[2016-08-07 17:44] VITALS: BP 143/75
[2016-08-08] MEDS: RT-ALBUTEROL/IPRATROPIUM 3 ML (DUONEB) VIAL INH SCH ×4 (01:58→19:21)
[2016-08-08] MEDS: KCL 10 MEQ TAB (MICRO K) PO SCH (06:21)
[2016-08-08] MEDS: PANTOPRAZOLE 40 MG (PROTONIX) TAB PO SCH (06:21)
[2016-08-08 06:27] VITALS: BP 145/72
[2016-08-08] MEDS: LACTULOSE SYRUP 10GM/15ML (ENULOSE) 30ML UDC PO SCH ×2 (08:13→20:43)
[2016-08-08 08:46] VITALS: BP 157/78
[2016-08-08] MEDS: BUMETANIDE 1 MG (BUMEX) TAB PO SCH ×2 (08:47→13:30)
[2016-08-08] MEDS: GABAPENTIN 300 MG (NEURONTIN) CAP PO SCH ×3 (08:47→20:39)
[2016-08-08] MEDS: lisINopril 20 MG (ZESTRIL) TAB PO SCH (08:48)
[2016-08-08] MEDS: MICONAZOLE 2% POWDER (DESENEX AF) 90 GM TOP SCH ×2 (08:49→20:44)
[2016-08-08] MEDS: MENTHOL/ZINC OXIDE (CALMOSEPTINE) 113 GM TUBE TOP SCH ×2 (08:50→20:43)
[2016-08-08] MEDS: ONDANSETRON 4 MG (ZOFRAN) ORAL DISSOLVE TAB PO PRN (08:52)
[2016-08-08] MEDS: IBUPROFEN TABLET 200 MG TAB PO PRN ×2 (11:28→20:40)
[2016-08-08 18:04] VITALS: BP 143/74
[2016-08-09] MEDS: RT-ALBUTEROL/IPRATROPIUM 3 ML (DUONEB) VIAL INH SCH ×4 (02:27→20:06)
[2016-08-09 06:00] VITALS: BP 148/77
[2016-08-09] MEDS: KCL 10 MEQ TAB (MICRO K) PO SCH (06:36)
[2016-08-09] MEDS: PANTOPRAZOLE 40 MG (PROTONIX) TAB PO SCH (06:36)
--- NOTE | 2016-08-09 08:05 | Pulmonary Progress Note ---
Subjective Subjective/Events-last exam PT is doing well. No complications noted. Exam Exam Vital Signs Date Time Temp Pulse Resp B/P (MAP) Pulse Ox O2 Delivery O2 Flow Rate FiO2 08/09/16 06:00 99.9 81 20 148/77 94 4.00 08/09/16 02:27 92 6.00 08/08/16 21:00 5.00 08/08/16 19:21 94 6.00 08/08/16 18:04 98.6 86 20 143/74 94 6.00 08/08/16 15:02 6.00 08/08/16 09:14 5.00 08/08/16 09:07 6.00 08/08/16 08:46 82 157/78 I & O 08/09/16 07:00 Intake Total 700 ml Balance 700 ml General Appearance: No Apparent Distress, Chronically ill, Obese Respiratory: Chest Non Tender, No Accessory Muscle Use, No Respiratory Distress , Other (Fine basilar rales chest otherwise is clear no wheezing or rhonchi are noted.) Cardiovascular: Regular Rate, Rhythm, No Edema, No Gallop, No JVD, No Murmur, Normal Peripheral Pulses Gastrointestinal: normal bowel sounds, non tender, soft Extremity: Normal Capillary Refill, Normal Inspection, Other (Report some bilateral pedal edema pain is noted and Homans sign is negative bilaterally. Edema extends to the knees no erythema or ulceration is noted of the lower extremities.) Neurologic/Psychiatric: Alert, Other (Flat affect patient responds appropriately with some slowing of speech no dysarthria noted) Skin: Normal Color, Warm/Dry Lymphatic: No Adenopathy Assessment/Plan Assessment/Plan Sepsis with strep bacteremia there is no signs of endocarditis on echo -Rocephin -s/p KALIN Acute respiratory distress - much improved Acute renal failure - resolved ?pancreatic mass -US liver pancreas and MRI are not definitive - will need outpatient EUS Hx of splenectomy and ITP Morbid obesity with OHS -vent to mask c02 on ABG is 57 ordered -pt will benefit from vent to mask and is at risk for frequent readmissions and early without it. Thrombocytopenia with to history of splenectomy 232 Clinical Quality Measures DVT/VTE Risk/Contraindication: Risk Factor Score Per Nursin RFS Level Per Nursing on Admit: 4+=Very High NAIDA HUGGINS DO August 09, 2016 08:05
[2016-08-09] MEDS: lisINopril 20 MG (ZESTRIL) TAB PO SCH (08:32)
[2016-08-09] MEDS: GABAPENTIN 300 MG (NEURONTIN) CAP PO SCH ×3 (08:32→19:44)
[2016-08-09] MEDS: BUMETANIDE 1 MG (BUMEX) TAB PO SCH ×2 (08:32→14:26)
[2016-08-09] MEDS: LACTULOSE SYRUP 10GM/15ML (ENULOSE) 30ML UDC PO SCH ×2 (08:33→19:09)
[2016-08-09] MEDS: MICONAZOLE 2% POWDER (DESENEX AF) 90 GM TOP SCH ×2 (08:33→19:45)
[2016-08-09] MEDS: MENTHOL/ZINC OXIDE (CALMOSEPTINE) 113 GM TUBE TOP SCH ×2 (08:33→19:47)
--- NOTE | 2016-08-09 09:16 | PM & R (SOAP) Progress Note ---
Subjective Subjective/Events-last exam Patient was seen in her room this AM Discussed case with DR Wilkinson Patient qualifies for home 02.Patient will have f/u with DR Torres PCP and DR Wilkinson PULM Appreciate DR Garnett and Scott note.Curent meds reviewed Patient indicates that she has Insulin at home and uses it PRN She has a glucometer machine as well Review of Systems Pulmonary: Dyspnea Objective Exam Last Set of Vital Signs Vital Signs Date Time Temp Pulse Resp B/P (MAP) Pulse Ox O2 Delivery O2 Flow Rate FiO2 08/09/16 08:03 91 5.00 08/09/16 06:00 99.9 81 20 148/77 Capillary Refill : I&O Intake and Output 08/09/16 00:00 Intake Total 1500 ml Balance 1500 ml Intake Oral 1500 ml # Voids 10 # Bowel Movements 1 General: Alert, Oriented X3, Cooperative, No Acute Distress HEENT: Atraumatic, PERRLA, EOMI, Mucous Memb Moist/[place] Neck: Supple, No JVD Lungs: Clear to Auscultation Heart: Regular Rate Abdomen: Normal Bowel Sounds, Soft, No Tenderness Extremities: Other Neuro: Other (Generalized weakness) Results Lab Laboratory Tests 08/06/16 10:35: Sodium Level 139, Potassium Level 4.6, Chloride Level 99, Carbon Dioxide Level 32, Anion Gap 8, Blood Urea Nitrogen 6L, Creatinine 0.74, Estimat Glomerular Filtration Rate > 60, BUN/Creatinine Ratio 8, Glucose Level 171H, Calcium Level 8.4L, Total Bilirubin 1.1H, Aspartate Amino Transf (AST/SGOT) 27, Alanine Aminotransferase (ALT/SGPT) 15, Alkaline Phosphatase 58, Total Protein 6.7, Albumin 2.6L 08/06/16 10:57: White Blood Count 10.8, Red Blood Count 3.66L, Hemoglobin 10.8L, Hematocrit 35, Mean Corpuscular Volume 96, Mean Corpuscular Hemoglobin 30, Mean Corpuscular Hemoglobin Concent 31L, Red Cell Distribution Width 15.5H, Platelet Count 58L, Mean Platelet Volume , Neutrophils (%) (Auto) 49, Lymphocytes (%) (Auto) 25, Monocytes (%) (Auto) 20H, Eosinophils (%) (Auto) 5, Basophils (%) (Auto) 1, Neutrophils # (Auto) 5.3, Lymphocytes # (Auto) 2.7, Monocytes # (Auto) 2.2H, Eosinophils # (Auto) 0.6H, Basophils # (Auto) 0.1, Neutrophils % (Manual) 47, Lymphocytes % (Manual) 26, Monocytes % (Manual) 14, Eosinophils % (Manual) 11, Basophils % (Manual) 2, Band Neutrophils 0, Target Cells SLIGHT 08/06/16 11:02: Glucometer 179H 08/06/16 16:29: Glucometer 139H 08/06/16 20:22: Glucometer 239H 08/07/16 06:06: Glucometer 126H 08/07/16 11:39: Glucometer 154H 08/07/16 16:47: Glucometer 173H 08/07/16 22:07: Glucometer 219H 08/08/16 06:23: Glucometer 152H 08/08/16 11:11: Glucometer 125H 08/08/16 16:33: Glucometer 212H 08/08/16 20:46: Glucometer 204H 08/09/16 06:40: Glucometer 139H Assessment/Plan Assessment General debil s/p sepsis with serum lactic acid now normalized morbid Obesity HX of splenectomy with ITP in past Peripheral edema-improving Chronic stasis dermatitis of legs Nausea improved with RX Liver cirrhosis Probable NABIL-with rsp insufficiency DM patient manages at home with her own PRN regimen Plan Continue PT/OT Discharge to home tomorrow with spouse and HHC and supplemental 02 F/U with PCP DR Ellington and Dr Jaja THOMAS See orders. BEBO DAVID MD August 09, 2016 09:16
[2016-08-09] MEDS ORDERED: IBUP-2055 PO (09:23)
[2016-08-09] MEDS ORDERED: GABA-488 PO (09:23)
[2016-08-09] MEDS ORDERED: MENT71OI TOP (09:23)
[2016-08-09] MEDS ORDERED: MICO90PO TOP (09:23)
--- NOTE | 2016-08-09 11:14 | Occupational Ther Daily Note ---
OT Current Status-Daily Note Subjective Pt seen in room, up in bed, agreeable to OT. No pain mentioned. Appearance Alert, cooperative. No confusion Mental Status/Objective Functional [place] Measure 0=Not Assessed/NA 4=Minimal Assistance 1=Total Assistance 5=Supervision or Setup 2=Maximal Assistance 6=Modified [place] 3=Moderate Assistance 7=Complete [place] Comprehension(FIM): 6 Expression(FIM): 7 Social Interaction(FIM): 6 Problem Solving(FIM): 6 (very careful with O2 tubing ) Memory(FIM): 7 Attachments: Central Line ADL-Treatment Pt safely managed oxygen tubing throughout all ADLs, including walking into bathroom and showering, dressing. Occasional cues for hand placement for pushing up instead of pulling up. Functional [place] Measure 0=Not Assessed/NA 4=Minimal Assistance 1=Total Assistance 5=Supervision or Setup 2=Maximal Assistance 6=Modified [place] 3=Moderate Assistance 7=Complete IndependenceIRFPAI Quality Coding Scale 6 Independent with activity with or without an assistive device 5 Patient requires set up or clean up by helper. Patient completes activity by themselves 4 Supervision or touching assist (CGA). [place] provide cues , steadying assist 3 The helper provides less than half the effort to complete the activity 2 The helper provides more than half the effort to complete the activity 1 Dependent. The helper does all the effort to complete an activity 7 Patient refused to complete or attempt activity 9 The patient did not perform the activity before the current illness or injury 88 Not attempted due to Medical conditions or safety concerns Eating (FIM): 7 (Orders own food, opens packages. No difficulty feeding herself. No dentures) Eating (QC): 6 Grooming (FIM): 6 (FWW for balance, at sink. brushed teeth and combed hair. Washed face and hands during shower. No makeup) Oral Hygiene (QC): 6 Bathing (FIM): 6 (Turned water on and off, retrieved towels from bar. Washed and dried all parts, incl hands and face. Shower chair, grab bar, hand held shower, long handled sponge) Shower/Bathe Self (QC): 6 Upper Body (FIM): 6 (Undress and dressed upper body. FWW to get clothes out of closet (for balance)) Upper Body Dressing (QC): 6 Lower Body Dressing (FIM): 6 (pants and socks off and on, FWW for balance at closest. has used dressing stick for pants. used sock aid for slipper socks. Edema has decreased and makes it easier for her to lift legs into pants.) Lower Body Dressing (QC): 6 On/Off Footwear (QC): 6 Toileting (FIM): 6 (Pt managed clothing and hygiene (made easier with decreased edema). Tall toilet, grab bars, FWW) Toileting Hygiene (QC): 6 Toilet/Commode Transfer (FIM): 6 (On and off toilet, with grab bar, FWW, tall toilet. ) Toilet Transfer (QC): 6 Shower Transfer(FIM): 6 (On and off shower chair, with grab bar, FWW) Discussed equipment for home - pt will need shower chair. May also benefit from digital publishing specialist, dressing stick, sock aid. Pt reported her toilet at home is taller and her installed a grab bar. There are grab bars in the shower as well. Other Treatment Reviewed theraband exercises. She did 15 reps exercises with yellow (gentle resistance) and 10 reps with red (moderate resistance), recalling exercises. Will provide written instructions this afternoon for HEP. Pt left up in recliner , all needs met, O2 in place. Education OT Patient Education: Exercise program, Modified ADL techniques, Progress toward Goal/Update tx plan, Transfer techniques, Use of adapted equipment OT Short Term Goals Short Term Goals Time Frame: August 04, 2016 Lower Body Dressing(FIM): 3 Toileting(FIM): 3 Transfers (B,C,W/C) (FIM): 3 Toilet/Commode Transfer(FIM): 3 1=Demonstrate adherence to instructed precautions during ADL tasks. 2=Patient will verbalize/demonstrate understanding of assistive devices/ modifications for ADL. 3=Patient will improve strength/tolerance for activity to enable patient to perform ADL's. OT Senior Care Goals Hoeing Row Boss Goals Time Frame: Aug 20, 2016 Eating (FIM): 7 (met 08-09-) Eating (QC): 6 (met 08-09-16) Groomin (met 08-09-16) Oral Hygiene (QC): 6 (met 08-09-16) Bathing(FIM): 6 (met 08-09-16) Shower/Bathe Self (QC): 6 (met 08-09-16) Upper Body Dressing(FIM): 6 (met 08-09-16) Upper Body Dressing (QC): 6 (met 08-09-16) Lower Body Dressing(FIM): 6 (met 08-09-16) Lower Body Dressing (QC): 6 (met 08-09-16) On/Off Footwear (QC): 6 (met 08-09-16) Toileting(FIM): 6 (met 08-09-16) Toileting Hygiene (QC): 6 (met 08-09-16) Toilet/Commode Transfer(FIM): 6 (met 08-09-16) Toilet/Commode Transfer (QC): 6 (met 08-09-16) Shower Transfer(FIM): 6 (met 08-09-16) Additional Goals: 2-Verbalize Understanding, 3-ImproveStrength/Unique 1=Demonstrate adherence to instructed precautions during ADL tasks. 2=Patient will verbalize/demonstrate understanding of assistive devices/ modifications for ADL. 3=Patient will improve strength/tolerance for activity to enable patient to perform ADL's. OT Education/Plan Problem List/Assessment Pt would benefit from skilled OT to increase her independence in basic self care to allow her to return home safely to live with her and to decrease caregiver burden. Discharge Recommendations Plan/Recommendations: Continue POC (Discharge tomorrow to home) Treatment Plan/Plan of Care Patient would benefit from OT for education, treatment and training to promote independence in ADL's, mobility, safety and/or upper extremity function for ADL' s. Plan of Care: ADL Retraining, Functional Mobility, Group Exercise/Act as Ind ( education, exercise, activity tolerance, socialization, mobility), UE Funct Exercise/Act, UE Neuromus Re-Ed/Coord Treatment Duration: Aug 20, 2016 Visits Per Week: 10-11 Minutes/Day (M-F): 75-90 Minutes/Day (Sat/Arceo): PRN Agreement: Yes Rehab Potential: Fair Time/GCodes Start Time: 08:30 Stop Time: 09:30 Total Time Billed (hr/min): 60 Billed Treatment Time visit, 50 minutes ADL, 10 minutes exercise PEDRO COY OT August 09, 2016 11:14
--- NOTE | 2016-08-09 11:40 | Physical Therapy Daily Note ---
PT Daily Note-Current Subjective Patient in bed pre tx, agrees to PT, states she only has pain of 2/10. Patient is wondering if she can go to the bathroom by herself, PT will assess this. Appearance Patient in recliner post tx with nurse call, phone, tray, all needs met. Mental Status Patient Orientation: Normal For Age Attachments: Oxygen Transfers Functional [place] Measure 0=Not Assessed/NA 4=Minimal Assistance 1=Total Assistance 5=Supervision or Setup 2=Maximal Assistance 6=Modified [place] 3=Moderate Assistance 7=Complete IndependenceIRFPAI Quality Coding Scale 6 Independent with activity with or without an assistive device 5 Patient requires set up or clean up by helper. Patient completes activity by themselves 4 Supervision or touching assist (CGA). [place] provide cues , steadying assist 3 The helper provides less than half the effort to complete the activity 2 The helper provides more than half the effort to complete the activity 1 Dependent. The helper does all the effort to complete an activity 7 Patient refused to complete or attempt activity 9 The patient did not perform the activity before the current illness or injury 88 Not attempted due to Medical conditions or safety concerns Transfers (B, C, W/C) (FIM): 6 Scootin Rollin Roll Left to Right (QC): 6 Supine to/from Sit: 6 Sit to/from Stand: 6 Sit to Lying (QC): 6 Sit to Stand (QC): 6 Gait Training Gait (FIM): 6 Distance: 200'x2 Walk 10 feet (QC): 6 Walk 50 ft with 2 Turns(QC): 6 Walk 150 ft (QC): 6 Walking 10ft/uneven surface-QC: 6 Gait Assistive Device: FWW Patient can ambulate 200' with a rolling walker with mod I (including 50' with at least 2 turns of 90 degrees and 10' over an uneven surface), however she does need somebody to carry her O2 tank. Wheelchair Training Does the Pt Use a Wheelchair?: No Stair Training Stair Training: Handrails/: 2 handrails Stairs (FIM): 2 #of Steps: 4 1 Step (curb) (QC): 5 4 Steps (QC): 5 12 Steps (QC): 88 Stairs: Pattern: Step to Level of Assist: 5 cues for foot placement Balance Picking up an Object (QC): 88 Exercises NuStep Minutes: 20 NuStep Workload: 5 Treatments bed mobility and transfers, ambulation, stair training, functional strengthening , patient is performing transfers and ambulation with mod I and is aware of her O2 line, will notify nurse that she can be independent in her room and use the restroom by herself Assessment Current Status: Good Progress improved pain and mobility PT Short Term Goals Short Term Goals Time Frame: August 04, 2016 Transfers (B,C,W/C) (FIM): 3 Gait (FIM): 2 Gait Distance Comment: 120' Gait Level of Assist: 4 (CGA) Wheelchair Distance: 20'x2 PT Care Home Goals Bath House Attendant Goals PT Care Home Goals Time Frame: August 18, 2016 Transfers (B,C,W/C) (FIM): 4 (met) Sit to Lying (QC): 3 (met) Lying-Sitting on Side/Bed(QC): 3 (met) Sit to Stand (QC): 3 (met) Rollin (met) Roll Left to Right (QC): 3 (met) Chair/Zob-ju-Brjed Xfer(QC): 4 (CGA) Car Transfer (QC): 4 Gait (FIM): 4 (met) Distance: 150' Walk 10 feet (QC): 4 (met) Walk 10ft-Uneven Surface(QC): 4 (met) Walk 50ft with 2 Turns (QC): 4 (met) Walk 150 ft (QC): 4 (met) Gait Level of Assist: 4 (CGA) Gait Assistive Device: FWW Wheelchair (FIM): 5 Distance: 150' Wheelchair Level of Assist: 5 Wheel 50 feet with 2 turns (QC: 4 Stairs (FIM): 1 (met) # of Steps: 1 (met) 1 Step (curb) (QC): 4 4 Steps (QC): 88 (met) 12 Steps (QC): 88 Stairs Level Of Assist: 4 (met) Picking up an Object (QC): 88 PT Plan Problem List Problem List: Activity Tolerance, Functional Strength, Safety, Balance, Gait, Transfer Treatment/Plan Treatment Plan: Continue Plan of Care Treatment Plan: Bed Mobility, Education, Functional Activity Unique, Functional Strength, Group Therapy, Gait, Safety, Therapeutic Exercise, Transfers Treatment Duration: August 18, 2016 Visits Per Week: 10-11 Minutes/Day (M-F): 60-90 Minutes/Day (Sat/Arceo): 15-30 Safety Risks/Education Patient Education: Gait Training, Transfer Techniques, Steps, Correct Positioning, Safety Issues Teaching Recipient: Patient Teaching Methods: Demonstration, Discussion Response to Teaching: Reinforcement Needed Time/GCodes Time In: 1045 Time Out: 1145 Total Billed Treatment Time: 60 Total Billed Treatment 1 visit EX 20' GT 40' ENRRIQUE ROJO PT August 09, 2016 11:40
[2016-08-09] MEDS: IBUPROFEN TABLET 200 MG TAB PO PRN ×2 (12:54→19:44)
--- NOTE | 2016-08-09 14:00 | Physical Therapy Daily Note ---
PT Daily Note-Current Subjective Patient in therapy gym pre tx, agrees to PT, has pain of 3/10 Appearance Patient sitting EOB post tx with nurse call, phone, tray, family in the room, all needs met. Mental Status Patient Orientation: Normal For Age Attachments: Oxygen Transfers Functional [place] Measure 0=Not Assessed/NA 4=Minimal Assistance 1=Total Assistance 5=Supervision or Setup 2=Maximal Assistance 6=Modified [place] 3=Moderate Assistance 7=Complete IndependenceIRFPAI Quality Coding Scale 6 Independent with activity with or without an assistive device 5 Patient requires set up or clean up by helper. Patient completes activity by themselves 4 Supervision or touching assist (CGA). [place] provide cues , steadying assist 3 The helper provides less than half the effort to complete the activity 2 The helper provides more than half the effort to complete the activity 1 Dependent. The helper does all the effort to complete an activity 7 Patient refused to complete or attempt activity 9 The patient did not perform the activity before the current illness or injury 88 Not attempted due to Medical conditions or safety concerns Transfers (B, C, W/C) (FIM): 6 Sit to/from Stand: 6 Gait Training Gait (FIM): 6 Distance: 150' Gait Assistive Device: FWW Exercises Seated Therapy Exercises: Ankle pumps, Hip flexion, Hip abd/add Seated Reps: 20 sit to stand 3 sets of 5, LAQ alternating for 5 min with 2# ankle weights Treatments transfers, ambulation, functional strengthening Assessment Current Status: Fair Progress improving endurance PT Short Term Goals Short Term Goals Time Frame: August 04, 2016 Transfers (B,C,W/C) (FIM): 3 Gait (FIM): 2 Gait Distance Comment: 120' Gait Level of Assist: 4 (CGA) Wheelchair Distance: 20'x2 PT Farm Machinery Erector Goals Intermediate Goals PT Farm Machinery Erector Goals Time Frame: August 18, 2016 Transfers (B,C,W/C) (FIM): 4 (met) Sit to Lying (QC): 3 (met) Lying-Sitting on Side/Bed(QC): 3 (met) Sit to Stand (QC): 3 (met) Rollin (met) Roll Left to Right (QC): 3 (met) Chair/Sfw-ez-Fqayq Xfer(QC): 4 (CGA) Car Transfer (QC): 4 Gait (FIM): 4 (met) Distance: 150' Walk 10 feet (QC): 4 (met) Walk 10ft-Uneven Surface(QC): 4 (met) Walk 50ft with 2 Turns (QC): 4 (met) Walk 150 ft (QC): 4 (met) Gait Level of Assist: 4 (CGA) Gait Assistive Device: FWW Wheelchair (FIM): 5 Distance: 150' Wheelchair Level of Assist: 5 Wheel 50 feet with 2 turns (QC: 4 Stairs (FIM): 1 (met) # of Steps: 1 (met) 1 Step (curb) (QC): 4 4 Steps (QC): 88 (met) 12 Steps (QC): 88 Stairs Level Of Assist: 4 (met) Picking up an Object (QC): 88 PT Plan Problem List Problem List: Activity Tolerance, Functional Strength, Safety, Balance, Gait, Transfer Treatment/Plan Treatment Plan: Continue Plan of Care Treatment Plan: Bed Mobility, Education, Functional Activity Unique, Functional Strength, Group Therapy, Gait, Safety, Therapeutic Exercise, Transfers Treatment Duration: August 18, 2016 Visits Per Week: 10-11 Minutes/Day (M-F): 60-90 Minutes/Day (Sat/Arceo): 15-30 Safety Risks/Education Patient Education: Gait Training, Transfer Techniques, Safety Issues Teaching Recipient: Patient Teaching Methods: Demonstration, Discussion Response to Teaching: Reinforcement Needed Time/GCodes Time In: 1330 Time Out: 1400 Total Billed Treatment Time: 30 Total Billed Treatment 1 visit GT 10' EX 20' ENRRIQUE ROOJ PT August 09, 2016 14:00
--- NOTE | 2016-08-09 14:09 | Occupational Ther Daily Note ---
OT Current Status-Daily Note Subjective Pt seen in room, up in bed, agreeable to OT. PT has made her up ad sherry and she reported that she has taken herself to the bathroom already. Appearance Alert, cooperative Mental Status/Objective Functional [place] Measure 0=Not Assessed/NA 4=Minimal Assistance 1=Total Assistance 5=Supervision or Setup 2=Maximal Assistance 6=Modified [place] 3=Moderate Assistance 7=Complete [place] ADL-Treatment Functional [place] Measure 0=Not Assessed/NA 4=Minimal Assistance 1=Total Assistance 5=Supervision or Setup 2=Maximal Assistance 6=Modified [place] 3=Moderate Assistance 7=Complete IndependenceIRFPAI Quality Coding Scale 6 Independent with activity with or without an assistive device 5 Patient requires set up or clean up by helper. Patient completes activity by themselves 4 Supervision or touching assist (CGA). [place] provide cues , steadying assist 3 The helper provides less than half the effort to complete the activity 2 The helper provides more than half the effort to complete the activity 1 Dependent. The helper does all the effort to complete an activity 7 Patient refused to complete or attempt activity 9 The patient did not perform the activity before the current illness or injury 88 Not attempted due to Medical conditions or safety concerns Other Treatment No help needed to get out of bed. Pt managed O2 tubing throughout but O2 brought O2 tank. Pt walked to gym with FWW and got into chair without difficulty. She did 14 minutes bilat UE ex on arm bike set at 20W resistance ( same time but increased resistance), with steady pace and no recovery periods. O2 at 5L/min. Pt was provided with written instructions for theraband exercises and was able to follow the instructions with medium resistance theraband. Discussed how she can grade the program as she increases in strength. Pt indep in HEP. Exercise to help increase arms strength and activity tolerance as needed for ADLs. Care transferred to PT in the gym. Education OT Patient Education: Exercise program, Progress toward Goal/Update tx plan Teaching Recipient: Patient Teaching Methods: Demonstration, Discussion Response to Teaching: Return Demonstration OT Short Term Goals Short Term Goals Time Frame: August 04, 2016 Lower Body Dressing(FIM): 3 Toileting(FIM): 3 Transfers (B,C,W/C) (FIM): 3 Toilet/Commode Transfer(FIM): 3 1=Demonstrate adherence to instructed precautions during ADL tasks. 2=Patient will verbalize/demonstrate understanding of assistive devices/ modifications for ADL. 3=Patient will improve strength/tolerance for activity to enable patient to perform ADL's. OT Half-Way Goals Half-Way Goals Time Frame: Aug 20, 2016 Eating (FIM): 7 (met 08-09-16) Eating (QC): 6 (met 08-09-16) Groomin (met 08-09-16) Oral Hygiene (QC): 6 (met 08-09-16) Bathing(FIM): 6 (met 08-09-16) Shower/Bathe Self (QC): 6 (met 08-09-16) Upper Body Dressing(FIM): 6 (met 08-09-16) Upper Body Dressing (QC): 6 (met 08-09-16) Lower Body Dressing(FIM): 6 (met 08-09-16) Lower Body Dressing (QC): 6 (met 08-09-16) On/Off Footwear (QC): 6 (met 08-09-16) Toileting(FIM): 6 (met 08-09-16) Toileting Hygiene (QC): 6 (met 08-09-16) Toilet/Commode Transfer(FIM): 6 (met 08-09-16) Toilet/Commode Transfer (QC): 6 (met 08-09-16) Shower Transfer(FIM): 6 (met 08-09-16) Additional Goals: 2-Verbalize Understanding, 3-ImproveStrength/Unique 1=Demonstrate adherence to instructed precautions during ADL tasks. 2=Patient will verbalize/demonstrate understanding of assistive devices/ modifications for ADL. 3=Patient will improve strength/tolerance for activity to enable patient to perform ADL's. OT Education/Plan Problem List/Assessment Pt would benefit from skilled OT to increase her independence in basic self care to allow her to return home safely to live with her and to decrease caregiver burden. Discharge Recommendations Plan/Recommendations: Continue POC Treatment Plan/Plan of Care Patient would benefit from OT for education, treatment and training to promote independence in ADL's, mobility, safety and/or upper extremity function for ADL' s. Plan of Care: ADL Retraining, Functional Mobility, Group Exercise/Act as Ind ( education, exercise, activity tolerance, socialization, mobility), UE Funct Exercise/Act, UE Neuromus Re-Ed/Coord Treatment Duration: Aug 20, 2016 Visits Per Week: 10-11 Minutes/Day (M-F): 75-90 Minutes/Day (Sat/Arceo): PRN Agreement: Yes Rehab Potential: Fair Time/GCodes Start Time: 13:00 Stop Time: 13:30 Total Time Billed (hr/min): 30 Billed Treatment Time visit, 30 minutes exercise PEDRO COY OT August 09, 2016 14:09
[2016-08-09 18:18] VITALS: BP 130/76
[2016-08-10] MEDS: RT-ALBUTEROL/IPRATROPIUM 3 ML (DUONEB) VIAL INH SCH ×2 (02:02→06:54)
[2016-08-10] MEDS: PANTOPRAZOLE 40 MG (PROTONIX) TAB PO SCH (06:10)
[2016-08-10] MEDS: KCL 10 MEQ TAB (MICRO K) PO SCH (06:10)
[2016-08-10 06:17] VITALS: BP 116/71
--- NOTE | 2016-08-10 07:03 | Pulmonary Progress Note ---
Subjective Subjective/Events-last exam pt wants to go home she feels improved. Exam Exam Vital Signs Date Time Temp Pulse Resp B/P (MAP) Pulse Ox O2 Delivery O2 Flow Rate FiO2 08/10/16 06:55 91 5.00 08/10/16 06:17 98.1 93 16 116/71 91 5.00 08/10/16 02:03 91 5.00 08/09/16 20:23 5.00 08/09/16 20:06 91 5.00 08/09/16 18:18 98.3 77 20 130/76 95 5.00 08/09/16 14:29 93 5.00 08/09/16 08:35 5.00 08/09/16 08:03 91 5.00 08/09/16 08:00 92 5.00 I & O 08/10/16 07:00 Intake Total 2000 ml Balance 2000 ml General Appearance: No Apparent Distress, Chronically ill, Obese Respiratory: Chest Non Tender, No Accessory Muscle Use, No Respiratory Distress , Other (Fine basilar rales chest otherwise is clear no wheezing or rhonchi are noted.) Cardiovascular: Regular Rate, Rhythm, No Edema, No Gallop, No JVD, No Murmur, Normal Peripheral Pulses Gastrointestinal: normal bowel sounds, non tender, soft Extremity: Normal Capillary Refill, Normal Inspection, Other (Report some bilateral pedal edema pain is noted and Homans sign is negative bilaterally. Edema extends to the knees no erythema or ulceration is noted of the lower extremities.) Neurologic/Psychiatric: Alert, Oriented x3, Other (Flat affect patient responds appropriately with some slowing of speech no dysarthria noted) Skin: Normal Color, Warm/Dry Lymphatic: No Adenopathy Assessment/Plan Assessment/Plan Sepsis with strep bacteremia there is no signs of endocarditis on echo s/p KALIN Acute respiratory distress - much improved Acute renal failure - resolved ?pancreatic mass -US liver pancreas and MRI are not definitive - will need outpatient EUS -- defer to PCP Hx of splenectomy and ITP Morbid obesity with OHS -vent to mask c02 on ABG is 57 ordered -pt will benefit from vent to mask and is at risk for frequent readmissions and early without it. Thrombocytopenia with to history of splenectomy 232 Pt is ok for discharge from pulmonary standpoint. I will have her f/u with me in 1-2 wks. Clinical Quality Measures DVT/VTE Risk/Contraindication: Risk Factor Score Per Nursin RFS Level Per Nursing on Admit: 4+=Very High NAIDA HUGGINS DO August 10, 2016 07:03
[2016-08-10] MEDS ORDERED: TRAM50TA2 PO (08:20)
[2016-08-10] MEDS: GABAPENTIN 300 MG (NEURONTIN) CAP PO SCH (08:32)
[2016-08-10] MEDS: IBUPROFEN TABLET 200 MG TAB PO PRN (08:32)
[2016-08-10] MEDS: LACTULOSE SYRUP 10GM/15ML (ENULOSE) 30ML UDC PO SCH (08:32)
[2016-08-10] MEDS: lisINopril 20 MG (ZESTRIL) TAB PO SCH (08:32)
[2016-08-10] MEDS: BUMETANIDE 1 MG (BUMEX) TAB PO SCH (08:32)
[2016-08-10] MEDS: MENTHOL/ZINC OXIDE (CALMOSEPTINE) 113 GM TUBE TOP SCH (08:33)
[2016-08-10] MEDS: MICONAZOLE 2% POWDER (DESENEX AF) 90 GM TOP SCH (08:33)
[2016-08-10 10:20] VITALS: BP 121/73
--- NOTE | 2016-08-10 10:51 | Therapy Team Discharge Summary ---
Therapy Discharge Summary Discharge Recommendations Date of Discharge Therapy D/C Recommendations: Home w/ Family Support Physical Therapy Patient came to rehab after being treated for severe sepsis. Upon admission patient performs bed mobility with max assist, sit to stand with max assist, and transfer with min/CGA, ambulated 100' with a rolling walker with Aleks/CGA, and could propel a manual wheelchair 20' with min assist. Patient has been performing bed mobility and transfer training, balance and endurance training, functional strengthening, stair training, gait training, and education. Patient has made fair progress and has met all of her fdc goals. Now, patient performs bed mobility and transfers with modified independence, ambulates 200' with a rolling walker with modified independence, and can go up and down 4 steps using 2 handrails with standby assist. Patient has been discharged from this facility and will be discharged from PT at this time. PT Stakeholder Manager Goals Group Home Goals PT Group Home Goals Time Frame: August 18, 2016 Transfers (B,C,W/C) (FIM): 4 (met) Roll Left to Right (QC): 3 (met) Sit to Lying (QC): 3 (met) Lying-Sitting on Side/Bed(QC): 3 (met) Sit to Stand (QC): 3 (met) Chair/Vbk-dk-Mqkef Xfer(QC): 4 (CGA) Car Transfer (QC): 4 Gait (FIM): 4 (met) Distance: 150' Walk 10 feet (QC): 4 (met) Walk 10ft-Uneven Surface(QC): 4 (met) Walk 50ft with 2 Turns (QC): 4 (met) Walk 150 ft (QC): 4 (met) Gait Level of Assist: 4 (CGA) Gait Assistive Device: FWW Wheelchair (FIM): 5 Distance: 150' Wheelchair Level of Assist: 5 Wheel 50 feet with 2 turns (QC: 4 Stairs (FIM): 1 (met) # of Steps: 1 (met) 1 Step (curb) (QC): 4 4 Steps (QC): 88 (met) 12 Steps (QC): 88 Stairs Level Of Assist: 4 (met) Picking up an Object (QC): 88 OT Group Home Goals Stakeholder Manager Goals Time Frame: Aug 20, 2016 Eating (FIM): 7 (met 08-09-16) Eating (QC): 6 (met 08-09-16) Oral Hygiene (QC): 6 (met 08-09-16) Grooming(FIM): 6 (met 08-09-16) Bathing(FIM): 6 (met 08-09-16) Shower/Bathe Self (QC): 6 (met 08-09-16) Upper Body Dressing(FIM): 6 (met 08-09-16) Upper Body Dressing (QC): 6 (met 08-09-16) Lower Body Dressing(FIM): 6 (met 08-09-16) Lower Body Dressing (QC): 6 (met 08-09-16) On/Off Footwear (QC): 6 (met 08-09-16) Toileting(FIM): 6 (met 08-09-16) Toileting Hygiene (QC): 6 (met 08-09-16) Toilet/Commode Transfer(FIM): 6 (met 08-09-16) Toilet/Commode Transfer (QC): 6 (met 08-09-16) Shower Transfer(FIM): 6 (met 08-09-16) Additional Goals: 2-Verbalize Understanding, 3-ImproveStrength/Unique 1=Demonstrate adherence to instructed precautions during ADL tasks. 2=Patient will verbalize/demonstrate understanding of assistive devices/ modifications for ADL. 3=Patient will improve strength/tolerance for activity to enable patient to perform ADL's. ENRRIQUE ROJO PT August 10, 2016 10:51
--- NOTE | 2016-08-12 09:12 | Therapy Team Discharge Summary ---
Therapy Discharge Summary Discharge Recommendations Date of Discharge August 10, 2016 at 10:20 Therapy D/C Recommendations: Home w/ Family Support, Occupational Therapy Home Care Occupational Therapy Pt was seen for skilled OT to increase her independence in basic self care to allow her to safely return home and decrease caregiver burden, after hospitalization for sepsis. On admission she needed no help with feeding, setup for grooming and upper body dressing, max assist for toileting, toilet transfers and lower body dressing. Her mobility was more difficult due to significant edema in bilat LEs and she used O2 nc throughout tx. By discharge she was independent with eating and modified independent with all other ADLs. She still used oxygen but was careful in managing O2 tubing. She also used FWW, shower chair, grab bars, hand held shower, sock aid, dressing stick, BSC over toilet. See tx plan for goals met. Recommend home health OT. Pt discharged to home. DC OT PT Intermediate Goals Field Operator Goals PT Intermediate Goals Time Frame: August 18, 2016 Transfers (B,C,W/C) (FIM): 4 (met) Roll Left to Right (QC): 3 (met) Sit to Lying (QC): 3 (met) Lying-Sitting on Side/Bed(QC): 3 (met) Sit to Stand (QC): 3 (met) Chair/Anz-bz-Qsvrf Xfer(QC): 4 (CGA) Car Transfer (QC): 4 Gait (FIM): 4 (met) Distance: 150' Walk 10 feet (QC): 4 (met) Walk 10ft-Uneven Surface(QC): 4 (met) Walk 50ft with 2 Turns (QC): 4 (met) Walk 150 ft (QC): 4 (met) Gait Level of Assist: 4 (CGA) Gait Assistive Device: FWW Wheelchair (FIM): 5 Distance: 150' Wheelchair Level of Assist: 5 Wheel 50 feet with 2 turns (QC: 4 Stairs (FIM): 1 (met) # of Steps: 1 (met) 1 Step (curb) (QC): 4 4 Steps (QC): 88 (met) 12 Steps (QC): 88 Stairs Level Of Assist: 4 (met) Picking up an Object (QC): 88 OT Intermediate Goals Field Operator Goals Time Frame: Aug 20, 2016 Eating (FIM): 7 (met 08-09-16) Eating (QC): 6 (met 08-09-16) Oral Hygiene (QC): 6 (met 08-09-16) Grooming(FIM): 6 (met 08-09-16) Bathing(FIM): 6 (met 08-09-16) Shower/Bathe Self (QC): 6 (met 08-09-16) Upper Body Dressing(FIM): 6 (met 08-09-16) Upper Body Dressing (QC): 6 (met 08-09-16) Lower Body Dressing(FIM): 6 (met 08-09-16) Lower Body Dressing (QC): 6 (met 08-09-16) On/Off Footwear (QC): 6 (met 08-09-16) Toileting(FIM): 6 (met 08-09-16) Toileting Hygiene (QC): 6 (met 08-09-16) Toilet/Commode Transfer(FIM): 6 (met 08-09-16) Toilet/Commode Transfer (QC): 6 (met 08-09-16) Shower Transfer(FIM): 6 (met 08-09-16) Additional Goals: 2-Verbalize Understanding, 3-ImproveStrength/Unique 1=Demonstrate adherence to instructed precautions during ADL tasks. 2=Patient will verbalize/demonstrate understanding of assistive devices/ modifications for ADL. 3=Patient will improve strength/tolerance for activity to enable patient to perform ADL's. PEDRO COY OT August 12, 2016 09:12
== END 2016-08-10 10:20 | disposition home health service (06) | DRG 556 ==
LOC: ENPENDDIS 08-10 12:00
PROVIDERS: ADMIT Physical Medicine & Rehabilitation; ATTEND Physical Medicine & Rehabilitation
DX: R26.2 Difficulty in walking, not elsewhere classified (principal); R53.1 Weakness; E11.42 Type 2 diabetes mellitus with diabetic polyneuropathy; E66.01 Morbid (severe) obesity due to excess calories; Z68.43 Body mass index [BMI] 50.0-59.9, adult; I10 Essential (primary) hypertension; D69.6 Thrombocytopenia, unspecified; K74.60 Unspecified cirrhosis of liver; R60.0 Localized edema; E87.6 Hypokalemia; I87.2 Venous insufficiency (chronic) (peripheral); G47.33 Obstructive sleep apnea (adult) (pediatric)
CPT/HCPCS: 36415; 71010; 80053; 82805; 82962; 83605; 85007; 85027; 93970; 94640; 94664; 94760; 94761

== ENCOUNTER 2018-06-15 09:29 | Inpatient (IN) | payer BC ==
[~2018-06-15] VITALS: Ht 172.7 cm; Wt 117.5 kg
[~2018-06-15 09:29] MED LIST changes: +IBUP-2055 PO; +MICO90PO TOP
[2018-06-15 16:00] VITALS: BP 87/43
--- NOTE | 2018-06-15 16:01 | Physical Therapy Evaluation ---
PT Evaluation-General Medical Diagnosis Admission Date June 15, 2018 Medical Diagnosis: respiratory distress/hypoxia Onset Date: Jun 07, 2018 Therapy Diagnosis Therapy Diagnosis: generalized weakness/debility Height/Weight Height (Feet): 5 Height (Inches): 7.00 Weight (Pounds): 312 Weight (Ounces): 9.0 Precautions Precautions/Isolations: Standard Precautions Weight Bear Status Right Lower Extremity: Right Full Weight Bearing Left Lower Extremity: Left Full Weight Bearing Referral Physician: Marilynn Reason for Referral: Evaluation/Treatment Medical History Pertinent Medical History: DM, HTN, Neuropathy Additional Medical History cirrhosis/Hep C Current History hypoxia/respiratory distress Reviewed History: Yes Social History Home: Single Level Current Living Status: Spouse Prior/Core FIM Prior Level of Function Therapy Code Descriptions/Definitions Functional [place] Measure: 0=Not Assessed/NA 4=Minimal Assistance 1=Total Assistance 5=Supervision or Setup 2=Maximal Assistance 6=Modified [place] 3=Moderate Assistance 7=Complete [place] Therapy Quality Codes: 6 Independent with activity with or without an assistive device 5 Patient requires set up or clean up by helper. Patient completes activity by themselves 4 Supervision or touching assist (CGA). [place] provide cues , steadying assist 3 The helper provides less than half the effort to complete the activity 2 The helper provides more than half the effort to complete the activity 1 Dependent. The helper does all the effort to complete an activity 7 Patient refused to complete or attempt activity 9 The patient did not perform the activity before the current illness or injury 88 Not attempted due to Medical conditions or safety concerns Functional Abilities and Goals: Independent: Patient completed the activities by him/herself, with or without an assistive device, with no assistance from a helper. Needed Some Help: Patient needed partial assistance from another person to complete activities. Dependent: A helper completed the activities for the patient. Unknown: Not Applicable: Bed Mobility: 6 Transfers (B,C,W/C) (FIM): 6 Gait: 6 Indoor Mobility (Ambulation): Independent Prior Devices Use: None, Walker PT Evaluation-Current Subjective Patient reports she is exhausted but agrees to begin PT. Pain Numeric Pain Scale: 8 Location: Right, Lower Location Body Site: Back Pain Description: Stabbing Objective Patient Orientation: Normal For Age Problem Solving: Fair ROM/Strength ROM Lower Extremities bilateral WFL/slightly limited due to morbid obesity Strenght Lower Extremities 3/5 bilaterally Integumentary/Posture Integumentary refer to nursing notes Bowel Incontinence: No Bladder Incontinence: No Posture trunk flexed posture Neuromuscular (Tone, Coordination, Reflexes) noted tremors when fatigues/diminished coordination due to weakness/fatigue Sensory Vision: Wears Glasses Hearing: Functional Sensation Right Lower Extremit: Impaired Sensation Left Lower Extremity: Impaired Transfers Therapy Code Descriptions/Definitions Functional [place] Measure: 0=Not Assessed/NA 4=Minimal Assistance 1=Total Assistance 5=Supervision or Setup 2=Maximal Assistance 6=Modified [place] 3=Moderate Assistance 7=Complete [place] Therapy Quality Codes: 6 Independent with activity with or without an assistive device 5 Patient requires set up or clean up by helper. Patient completes activity by themselves 4 Supervision or touching assist (CGA). [place] provide cues , steadying assist 3 The helper provides less than half the effort to complete the activity 2 The helper provides more than half the effort to complete the activity 1 Dependent. The helper does all the effort to complete an activity 7 Patient refused to complete or attempt activity 9 The patient did not perform the activity before the current illness or injury 88 Not attempted due to Medical conditions or safety concerns Transfers (B, C, W/C) (FIM): 4 Scootin Rollin Roll Left to Right (QC): 5 Supine to/from Sit: 4 Sit to/from Stand: 4 Sit to Lying (QC): 4 Lying to Sitting/Side of Bed(Q: 4 Sit to Stand (QC): 4 Chair/Tfv-ns-Efzak Xfer(QC): 4 Gait Does the Patient Walk?: Yes Mode of Locomotion: Walk Anticipated Mode of Locomotion: Walk Gait (FIM): 1 Distance (FIM): 1=up to 49 ft Walk 10 feet (QC): 4 Distance: 15' x 2 Gait Level of Assist: 4 Gait Persons Needed: 1 Gait Assistive Device: FWW Comments/Gait Description slow and steady gait sequence with FWW Stairs If not tested on admit;explain unable to tolerate this activity on this date due to weakness and fatigue/ patient is unsafe to perform Balance Sitting Static: Normal Sitting Dynamic: Normal Standing Static: Fair Standing Dynamic: Fair Assessment/Needs 52 y.o. female, will benefit from skilled PT to address functional strength and mobility to improve current LOF and to safely return to home with spouse at maximum LOF. Rehab Potential: Fair Post Rehab Potential-Barriers: liver disease PT Project Systems Engineer Goals Project Systems Engineer Goals PT Project Systems Engineer Goals Time Frame: Jul 15, 2018 Transfers (B,C,W/C) (FIM): 6 Sit to Lying (QC): 6 Lying-Sitting on Side/Bed(QC): 6 Sit to Stand (QC): 6 Rollin Roll Left to Right (QC): 6 Chair/Xpn-qd-Kkrtj Xfer(QC): 6 Car Transfer (QC): 6 Does the Patient Walk: Yes Gait (FIM): 6 Gait distance (FIM): 3=150 ft Distance: 175' Walk 10 feet (QC): 6 Walk 10ft-Uneven Surface(QC): 6 Walk 50ft with 2 Turns (QC): 6 Walk 150 ft (QC): 6 Gait Level of Assist: 6 Gait Assistive Device: FWW Stairs (FIM): 2 # of Steps: 4 1 Step (curb) (QC): 5 4 Steps (QC): 5 12 Steps (QC): 9 Stairs Level Of Assist: 5 Picking up an Object (QC): 5 PT Plan Problem List Problem List: Activity Tolerance, Functional Strength, Safety, Balance, Gait, Transfer, Bed Mobility Treatment/Plan Treatment Plan: Continue Plan of Care Treatment Plan: Bed Mobility, Concurrent Therapy, Education, Functional Activity Unique, Functional Strength, Group Therapy, Gait, Safety, Therapeutic Exercise, Transfers Treatment Duration: Jul 15, 2018 Frequency: At least 5 of 7 days/Wk (IRF) Estimated Hrs Per Day: 1.5 hours per day Patient and/or Family Agrees t: Yes Safety Risks/Education Patient Education: Safety Issues Teaching Recipient: Patient Teaching Methods: Discussion Response to Teaching: Verbalize Understanding Discharge Recommendations Therapy D/C Recommendations: Home w/ Family Support, Physical Therapy Home Care Time/GCodes Time In: 1530 Time Out: 1550 Total Billed Treatment Time: 20 Total Billed Treatment 1 visit EVMod 20 min KRISTIE JIMENES PT Jun 15, 2018 16:01
[2018-06-15] MEDS ORDERED: BENZ100C18 PO (16:31)
[2018-06-15] MEDS ORDERED: INSU100I10 SQ (16:31)
[2018-06-15] MEDS ORDERED: BUME1TAB4 PO (16:31)
[2018-06-15] MEDS ORDERED: LISI10TA2 PO (16:31)
[2018-06-15] MEDS ORDERED: ELTR50TA PO (16:31)
[2018-06-15] MEDS ORDERED: NYST1POW4 TOP (16:31)
[2018-06-15] MEDS ORDERED: AMIT25TA9 PO (16:31)
[2018-06-15] MEDS ORDERED: GUAI100L13 PO (16:31)
[2018-06-15] MEDS ORDERED: GABA-488 PO ×2 (16:31)
[2018-06-15] MEDS ORDERED: FLUO20CA42 PO (16:31)
[2018-06-15] MEDS ORDERED: INSU100I23 SQ (16:31)
[2018-06-15] MEDS ORDERED: LORA10TA7 PO (16:31)
[2018-06-15] MEDS ORDERED: OXYC-529 PO (16:31)
[2018-06-15] MEDS ORDERED: TIZA2TAB3 PO (16:31)
[2018-06-15] MEDS ORDERED: RIFA550T PO (16:31)
[2018-06-15] MEDS ORDERED: CARI250T7 PO (16:31)
[2018-06-15] MEDS ORDERED: LACT10SO PO (16:31)
[2018-06-15] MEDS ORDERED: ACET325T38 PO (16:31)
--- NOTE | 2018-06-15 16:36 | NUR ---
UPDATED MED REC TO THE LIST OF MEDICATIONS ORDERED UPON DISCHARGE FROM . NOTE THE FOLLOWING CHANGES WERE MADE AT THAT DISCHARGE: START TAKING: BENZONATATE 100MG 1-2 Q8H PRN COUGH GUAIFENESIN 100MG/5ML 10ML Q4H PRN NOVOLOG FLEXPEN (WAS MARKED OUT AND STATED ERROR, ALSO HAS ORDER FOR HUMALOG) NYSTATIN POWDER APPLY UNDER BREAST (ENTERED BID PRN, NOT GIVEN SINCE 06-10-18) OXYCODONE 5MG 1 Q4H PRN FOR UP TO 7 DAYS TIZANIDINE 2MG 1 Q8H PRN CHANGE HOW YOU TAKE: -LANTUS SOLOSTAR 40 UNITS SUBQ HS (WAS TAKING 50 BID PRIOR TO HOSPITALIZATION. SHE IS NEEDING SIGNIFICANTLY LESS IN THE HOSPITAL OFF STEROID AND ON DIABETIC DIET) -HUMALOG KWIKPEN 8-13 UNITS WITH MEALS (8 + ADDITIONAL PRN BS) WAS USING 18 UNITS TID WITH MEALS PRIOR TO HOSPITALIZATION STOP TAKING: FLEXERIL PREDNISONE I WILL UPDATE THE MED REC BACK TO THE HOME MED LIST THE PATIENT WAS TAKING PRIOR TO THESE CHANGES AT AT A LATER TIME FOR PROPER DISCHARGE TO HOME ORDERS. Addendum: 06/16/18 at 1052 by AURE BOB [facility] UPDATED MED REC BACK TO THE HOME MED LIST PRIOR TO DISCHARGE FROM . I REMOVED THE 7 NEW MEDICATIONS ORDERED AND ADDED BACK THE 2 THAT WERE STOPPED. I ALSO EDITED THE DIRECTIONS THAT WERE CHANGED ON THE LANTUS AND HUMALOG BACK TO THE HOME DOSE. I VERIFIED THE PRESCRIPTION MEDICATIONS WITH [facility]: 06-04-18 PREDNISONE 20MG #10 FOR A 5 DAY SUPPLY 3-15-19 LACTULOSE 10GM/15ML #3600 FOR 30 DAY SUPPLY 06-01-18 CYCLOBENZAPRINE 10MG #21 FOR A 7 DAY SUPPLY 05-31-18 LANTUS SOLOSTAR 05-31-18 SOMA 350MG #15 FOR A 5 DAY SUPPLY-I UPDATED THIS DOES, WAS ON [employer] PAPERS 250MG 05-15-18 XIFAXAN 550MG #60 FOR A 30 DAY SUPPLY 05-10-18 FLUOXETINE 20MG #30 FOR A 30 DAY SUPPLY 05-10-18 BUMETANIDE 1MG #60 FOR 30 DAYS (WAS ON PAPER WORK 1 TAB DAILY) 05-10-18 AMITRIPTYLINE 25MG #30 FOR 30 DAYS 05-02-18 HUMALOG KWIKPEN 04-07-18 LISINOPRIL 10MG #90 FOR 90 DAYS 02-27-18 GABAPENTIN 300MG #180 2 AM 1 NOON 3 HS (WAS ON PAPERWORK FROM [employer] 1 AM, 2 NOON, AND 2 EVENING NEEDED. PATIENT VERIFIED SHE ONLY TAKES NEEDED) PATIENT STATES SHE RECEIVES THE PROMACTA THROUGH A SPECIALTY MAIL ORDER SERVICE. ALSO LISTED IS LORATADINE AND TYLENOL WHICH ARE PROBABLY OTC.
[2018-06-15 16:45] VITALS: BP 102/61
--- NOTE | 2018-06-15 17:03 | Occupational Therapy Eval ---
OT Evaluation-General/PLF Medical Diagnosis Admission Date Jun 15, 2018 at 15:30 Medical Diagnosis: respiratory distress/hypoxia Onset Date: Jun 07, 2018 Therapy Diagnosis Therapy Diagnosis: weakness, dedility. Height/Weight Height (Feet): 5 Height (Inches): 7.00 Weight (Pounds): 312 Weight (Ounces): 9.0 Precautions Precautions/Isolations: Standard Precautions Weight Bear Status Weight Bearing Restriction: Full Weight Bearing Location Restriction: L CASSIDY, R CASSIDY Referral Physician: Marilynn Referral Reason: Activity Tolerance, Self Care, Evaluation/Treatment, Strengthening/ROM Medical History Pertinent Medical History: DM, HTN, Neuropathy Additional Medical History Cirrhosis of liver, Hepatitis C , DM, NEUROPATHY, MORBID OBESITY, Current History HYPOXIA & RESPIRATORY DISTRESS Reviewed History: Yes Social History Home: Single Level Current Living Status: Spouse ADL-Prior Level of Function Therapy Code Descriptions/Definitions Functional [place] Measure: 0=Not Assessed/NA 4=Minimal Assistance 1=Total Assistance 5=Supervision or Setup 2=Maximal Assistance 6=Modified [place] 3=Moderate Assistance 7=Complete [place] Therapy Quality Codes: 6 Independent with activity with or without an assistive device 5 Patient requires set up or clean up by helper. Patient completes activity by themselves 4 Supervision or touching assist (CGA). [place] provide cues , steadying assist 3 The helper provides less than half the effort to complete the activity 2 The helper provides more than half the effort to complete the activity 1 Dependent. The helper does all the effort to complete an activity 7 Patient refused to complete or attempt activity 9 The patient did not perform the activity before the current illness or injury 88 Not attempted due to Medical conditions or safety concerns Functional Abilities and Goals: Independent: Patient completed the activities by him/herself, with or without an assistive device, with no assistance from a helper. Needed Some Help: Patient needed partial assistance from another person to complete activities. Dependent: A helper completed the activities for the patient. Unknown: Not Applicable: ADL PLOF Comments Pt was Independent in all ADLs. Her use to help her during shower due to fear of fall . Self Care: Needed Some Help Functional Cognition: Independent DME/Equipment: Bath Bench, Bedside Commode, Grab Bars Drive Self: No OT Current Status Subjective Pt in bed, alert, oriented, cooperative & c/o severe pain in lower back.. Agree for therapy. Pain Numeric Pain Scale: 9 Location: Lower Location Body Site: Back Pain Description: Throbbing, Sharp Mental Status/Objective Patient Orientation: Person, Place, Time Attachments: IV Current Glasses/Contacts: Yes Hearing Aids: No Dentures/Partials: No Hand Dominance: Right Upper Extremity ROM WFL Upper Extremity Coordination Intact Upper Extremity Sensation Intact Upper Extremity Strength MS in BUE 4/5 grosssly graded. ADL-Treatment ADL-Current Pt need mod A in supine to sit at EOB & Max A in sit to stand with FWW due to spasmodic & painful back. MS in BUE 4/5 grossly graded. ADL assessment will be done on the next visit. Transfers (B, C, W/C) (FIM): 2 Education OT Patient Education: Correct positioning Teaching Recipient: Patient Teaching Methods: Demonstration Response to Teaching: Verbalize Understanding OT Short Term Goals Short Term Goals Time Frame: Jun 29, 2018 Additional Short Term Goals: 1-Demonstrate ADL Tasks, 2-Verbalize Understanding , 3-ImproveStrength/Unique 1=Demonstrate adherence to instructed precautions during ADL tasks. 2=Patient will verbalize/demonstrate understanding of assistive devices/ modifications for ADL. 3=Patient will improve strength/tolerance for activity to enable patient to perform ADL's. OT Half-Way Goals Half-Way Goals Time Frame: Jul 13, 2018 Eating (FIM): 6 Eating (QC): 6 Groomin Oral Hygiene (QC): 6 Bathing(FIM): 6 Bathing Location: L Arm, R Arm, L Upper Leg, R Upper Leg, L Lower Leg ( including foot), R Lower Leg (including foot), Chest, Abdomen, Buttocks, Perineal Area Shower/Bathe Self (QC): 6 Upper Body Dressing(FIM): 6 Upper Body Dressing (QC): 6 Lower Body Dressing(FIM): 6 Lower Body Dressing (QC): 6 On/Off Footwear (QC): 6 Toileting(FIM): 6 Toileting Hygiene (QC): 6 Transfers (B,C,W/C) (FIM): 6 Toilet/Commode Transfer(FIM): 6 Toilet/Commode Transfer (QC): 6 Tub Transfer(FIM): 0 Shower Transfer(FIM): 6 Additional Goals: 1-Demonstrate ADL Tasks, 2-Verbalize Understanding, 3- ImproveStrength/Unique 1=Demonstrate adherence to instructed precautions during ADL tasks. 2=Patient will verbalize/demonstrate understanding of assistive devices/ modifications for ADL. 3=Patient will improve strength/tolerance for activity to enable patient to perform ADL's. OT Education/Plan Problem List/Assessment Assessment: Decreased Activ Tolerance, Decreased Safety Aware, Decreased UE Strength, Dependent Transfers, Impaired Bed Mobility, Impaired Funct Balance, Impaired Self-Care Skills Discharge Recommendations Plan/Recommendations: Continue POC Therapy D/C Recommendations: Home w/ Family Support Equpiment Recommendations-D/C: Extended Shower Sprayer, Salesperson [employer], Hip Kit, Long Shoe Horn, Rails on Toilet Patient/Family Goals To return home with spouse Independently with AD. Treatment Plan/Plan of Care Treatment,Training & Education: Yes Patient would benefit from OT for education, treatment and training to promote independence in ADL's, mobility, safety and/or upper extremity function for ADL' s. Plan of Care: ADL Retraining, Functional Mobility, Group Exercise/Act as Ind, UE Funct Exercise/Act, UE Neuromus Re-Ed/Coord Treatment Duration: Jul 13, 2018 Frequency: 5 times per week Estimated Hrs Per Day: 1.5 hours per day Agreement: Yes Rehab Potential: Guarded Time/GCodes Start Time: 16:15 Stop Time: 16:35 Total Time Billed (hr/min): 20 Billed Treatment Time 1, EVM 20 Minutes CRISTEL FARRELL OT Jun 15, 2018 17:03
[2018-06-15] MEDS ORDERED: ACETAMINOPHEN 325 MG TABLET PO PRN (17:45)
[2018-06-15] MEDS ORDERED: guaiFENesin SYRUP 100 MG/5 ML 10 ML (ROBITUSSIN SF) PO PRN (17:45)
--- NOTE | 2018-06-15 18:19 | PM&R H&P / Post Admit Assess ---
History of Present Illness HPI/Chief Complaint CC: Hepatic encephalopathy with debility HPI: This is a 52[address] [place]jos[place] [facility] in need debility resolution prior to DC home after critical illness at [facility] where she was admitted on 06/07/18 after transferred from [facility] [place] presented with altered mental status following a fall and given pain meds and found to have pneumonia bilaterally and acute respiratory failure. Patient was placed on appropriate antibiotics at [facility] and evaluated for elevated wbc (bone marrow negative) and treated for elevated ammonia at 120 with Lactulose and Rifaximin. She had improvement at [facility] but underwent trigger point injections of her back due to the severity of her pain and will have follow up for epidural pain injection at [facility] after IRF DC. All records were reviewed in-depth as evidenced by problem list entered into this note. Currently patient is fatigued from the drive from but denies any new pain and reports chronic back pain that restricts her movements. She wears O2 at night. Labs were reviewed and ammonia level was 41 but only received 1 dose of Lactulose yesterday due to her travels and will dose that TID or more to achieve 5 BM's per day. Source: patient, family, RN/MD, old records Exam Limitations: no limitations Date Seen 06/15/18 Time Seen by a Provider: 18:20 Attending Physician Tita Subramanian DO PCP No,Local Physician Referring Physician Date of Admission Jun 15, 2018 at 15:30 Home Medications & Allergies Home Medications Reviewed patient Home Medication Reconciliation performed by pharmacy medication reconciliations quality lab technician and/or nursing. Patients Allergies have been reviewed. Allergies Allergies Coded Allergies metoclopramide (Unverified Allergy, Unknown, 07/21/16) Past Npysryb-[id number] Hx Past Med/Social Hx: Reviewed Nursing Past Med/Soc Hx, Reviewed and Corrections made Patient Social History Marrital Status: Employed/Student: employed Alcohol Use: Denies Use Alcohol Beverage of Choice: Wine Recreational Drug Use: No Smoking Status: Never a Smoker Physical Abuse Screen: No Sexual Abuse: No Recent Foreign Travel: No Contact w/other who traveled: No Recent Hopitalizations: Yes (Pneumonia, AMS) Recent Infectious Disease Expo: No Immunizations Up To Date Pediatric: Yes Seasonal Allergies Seasonal Allergies: No Past Medical History Surgeries: Section, Hysterectomy Respiratory: Pneumonia (06/07/18), Sleep Apnea Currently Using CPAP: No Currently Using BIPAP: No Cardiac: Hypertension Neurological: Neuropathy Reproductive: No Genitourinary: Bladder Infection, Renal Failure Gastrointestinal: Gastroesophageal Reflux, Liver Disease/Jaundice, Chronic Constipation, Esophageal Varices, Cirrhosis Musculoskeletal: Chronic Back Pain Endocrine: Diabetes, Insulin dep Loss of Vision: Denies Hearing Impairment: Denies History of Blood Disorders: Yes (remote history of ITP) Family History Patient reports no known family medical history. No Pertinent Family Hx Review of Systems Constitutional: see HPI, malaise, weakness EENTM: no symptoms reported Respiratory: no symptoms reported Cardiovascular: no symptoms reported Gastrointestinal: no symptoms reported Genitourinary: no symptoms reported Musculoskeletal: back pain, joint pain, muscle stiffness, muscle twitching, muscle weakness Skin: no symptoms reported Psychiatric/Neurological: Depressed, Emotional Problems All Other Systems Reviewed Negative Unless Noted: Yes Physical Exam Exam Vital Signs Vital Signs Date Time Temp Pulse Resp B/P (MAP) Pulse Ox O2 Delivery O2 Flow Rate FiO2 06/16/18 09:00 92 Room Air 06/16/18 05:26 98.1 69 20 90/54 (66) 2.00 Capillary Refill : General Appearance: No Apparent Distress, WD/WN, Chronically ill, Obese, Other (jaundice) HEENT: PERRL/EOMI, Normal ENT Inspection, Pharynx Normal, Moist Mucous Membranes, Scleral Icterus (L) Neck: Full Range of Motion, Normal Inspection, Non Tender, Supple Respiratory: Chest Non Tender, Lungs Clear, Normal Breath Sounds, No Accessory Muscle Use, No Respiratory Distress, Decreased Breath Sounds Cardiovascular: Regular Rate, Rhythm, No Edema, No Gallop, No JVD, No Murmur Gastrointestinal: Normal Bowel Sounds, No Organomegaly, No Pulsatile Mass, Non Tender, Soft, Other (fluid wave subtle only due to habitus) Back: Normal Inspection, No CVA Tenderness, No Vertebral Tenderness Extremity: Normal Capillary Refill, Normal Inspection, Normal Range of Motion, Non Tender, No Calf Tenderness, No Pedal Edema Neurologic/Psychiatric: Alert, Oriented x3, No Motor/Sensory Deficits, Normal Mood/Affect Skin: Normal Color, Warm/Dry Lymphatic: No Adenopathy Results Results/Procedures Labs Laboratory Tests 06/16/18 05:45 Patient resulted labs reviewed. Assessment/Plan Assessment and Plan Assess & Plan/Chief Complaint (1) Hepatic encephalopathy (2) End stage liver disease (3) H/O splenectomy (4) History of ITP (5) Chronic back pain (6) Thrombocytopenia (7) Anemia (8) Leukocytosis (9) History of pneumonia (10) Fall (11) History of hematemesis (12) Diabetes mellitus (13) Liver cirrhosis secondary to [place] (14) Obesity (BMI 30-39.9) (15) Renal insufficiency (16) Increased ammonia level (17) Jaundice (18) History of acute respiratory failure (19) Hepatitis C virus infection resolved after antiviral drug therapy (20) Ascites Plan: IRF Ambulation Back pain management Pain meds very difficult given low platelets and ESLD Diabetic diet Accuchecks Monitor closely Monitor ammonia Lactulose for BM 5 x day (1) Hepatic encephalopathy (2) Diabetes mellitus (3) Anemia (4) Ascites (5) Jaundice (6) Leukocytosis (7) Renal insufficiency (8) Thrombocytopenia (9) Fall (10) History of pneumonia (11) Chronic back pain (12) End stage liver disease (13) History of acute respiratory failure (14) History of ITP (15) Obesity (BMI 30-39.9) (16) Increased ammonia level (17) Liver cirrhosis secondary to [place] (18) History of hematemesis (19) Hepatitis C virus infection resolved after antiviral drug therapy (20) H/O splenectomy (21) DIFFICULTY IN WALKING, NOT ELSEWHERE CLASSIFIED (22) VENOUS INSUFFICIENCY (CHRONIC) (PERIPHERAL) (23) ESSENTIAL (PRIMARY) HYPERTENSION (24) Nocturnal hypoxemia Post Admission Physician Asses Date seen by provider: Jun 15, 2018 Time seen by provider: 18:20 Admisison Dx: (1) Hepatic encephalopathy (2) End stage liver disease (3) H/O splenectomy (4) History of ITP (5) Chronic back pain (6) Thrombocytopenia (7) Anemia (8) Leukocytosis (9) History of pneumonia (10) Fall (11) History of hematemesis (12) Diabetes mellitus (13) Liver cirrhosis secondary to [place] (14) Obesity (BMI 30-39.9) (15) Renal insufficiency (16) Increased ammonia level (17) Jaundice (18) History of acute respiratory failure (19) Hepatitis C virus infection resolved after antiviral drug therapy (20) Ascites (21) Nocturnal hypoxemia The preadmission screen agrees with the post admission assessment that the patient is a good candidate for inpatient rehabilitation. The patient will have a comprehensive program of inpatient rehabilitation with a goal of maximizing level of functional independence prior to discharge home with family. The patient will have PT/OT ninety minutes per day, each discipline, five days a week for gait, strengthening, conditioning, balance, ADLs, any patient/family/caregiver training as necessary. Speech therapy to do cognitive assessment and treat as indicated. Rehabilitation nursing to assist with bowel, bladder, skin, wound care, medication administration, pain management. Architectural Manager to assist with discharge planning, community reentry. SCD's for DVT prophylaxis. She appears to be well motivated to participate in three hours of therapy a day. She should be able to tolerate three hours of therapy a day from a medical standpoint. She should benefit from the three hours of therapy a day. She has a reasonable discharge plan, reasonable discharge rehabilitation goals and a supportive family. She has various comorbidities that need to be closely monitored with medications and treatments adjusted on a daily basis as needed. These include: Barriers to discharge for this patient who had been independent prior to this are for her to be modified independent to supervision for ADLs and mobility skills prior to discharge home with [family], so as to lessen the burden of the caregivers. Risks for this patient include: 1. Fall 2. Fracture 3. DVT 4. Pulmonary embolism 5. Wound infection 6. Skin breakdown 7. Contractures 8. Poorly controlled pain 9. Urinary retention 10. UTI 11. Respiratory infection 12. Aspiration Estimated Length of Stay: 14 days Prognosis: Rehab prognosis appears good for goal of discharge home with family modified independent to supervision for ADLs and mobility skills. TITA SUBRAMANIAN DO Jun 15, 2018 18:19
[2018-06-15] MEDS ORDERED: FLU QUADRIvalent (5+ YOA) 2018-2019 (AFLURIA) 0.5 ML IM ONE (20:30)
[2018-06-15] MEDS: AMITRIPTYLINE 25 MG (ELAVIL) TAB PO SCH (20:33)
[2018-06-15] MEDS: RIFAXIMIN 550 MG TABLET (XIFAXAN) PO SCH (20:33)
[2018-06-15] MEDS: LACTULOSE SYRUP 10GM/15ML (ENULOSE) 30ML UDC PO SCH (20:34)
[2018-06-15] MEDS: MICONAZOLE 2% POWDER (DESENEX AF) 90 GM TOP SCH (20:38)
[2018-06-15] MEDS ORDERED: CARISOPRODOL 250 MG PO SCH (21:00)
[2018-06-15] MEDS ORDERED: GABAPENTIN 300 MG (NEURONTIN) CAP PO SCH (21:00)
[2018-06-16 05:26] VITALS: BP 90/54
[2018-06-16 05:54] LABS: HEMATOCRIT 27 % (35-52); HEMOGLOBIN 8.5 G/DL (11.5-16.0); MEAN CORPUSCULAR HEMOGLOBIN 28 PG (25-34); MEAN CORPUSCULAR HGB CONC 31 G/DL (32-36); MEAN CORPUSCULAR VOLUME 90 FL (80-99); PLATELET COUNT 145 10^3/uL (130-400); RED CELL DISTRIBUTION WIDTH 21.5 % (10.0-14.5)
[2018-06-16 06:06] LABS: BAND NEUTROPHILS 0 %; LYMPHOCYTES % (MANUAL) 17 %; NEUTROPHILS % (MANUAL) 74 %
[2018-06-16 06:07] LABS: ANISOCYTOSIS MARKED; BASOPHILS % (MANUAL) 0 %; ELLIPT/OVALOCYTES SLIGHT; EOSINOPHILS % (MANUAL) 0 %; HYPOCHROMASIA MODERATE; MICROCYTOSIS SLIGHT; MONOCYTES % (MANUAL) 9 %; POIKILOCYTOSIS MODERATE; POLYCHROMASIA SLIGHT; SPHEROCYTES SLIGHT; TARGET CELLS MODERATE
[2018-06-16 06:08] LABS: SCHISTOCYTES SLIGHT
[2018-06-16 06:18] LABS: INR 1.4 (0.8-1.4); PROTHROMBIN TIME PATIENT 17.6 SEC (12.2-14.7)
[2018-06-16 06:22] LABS: BILIRUBIN,TOTAL 0.9 MG/DL (0.1-1.0); CALCIUM 8.6 MG/DL (8.5-10.1); CREATININE SERUM 1.37 MG/DL (0.60-1.30); POTASSIUM 5.1 MMOL/L (3.6-5.0); TOTAL PROTEIN 5.7 GM/DL (6.4-8.2)
[2018-06-16] MEDS: inSUlin ASPART (NovoLOG) 1 UNIT/0.01 ML (CHARGE PER UNIT) SC SCH ×3 (07:08→17:44)
--- NOTE | 2018-06-16 08:41 | PM&R Progress Note ---
Subjective HPI/CC On Admission Date Seen by Provider: Jun 16, 2018 Time Seen by Provider: 08:45 Subjective/Events-last exam Patient doing well Only 1 dose of lactulose given yesterday so we will increase that to 3 times a day for 5 loose bowel movements per day to decrease elevated ammonia Chronic back pain Takes Neurontin as needed so we'll change that in the medication profile to prevent oversedation Is able to eat breakfast Reviewed records in depth White blood cell count is 24,000 I reviewed [facility] records and it was present on admission there and remained so and bone marrow was negative Review of Systems General: Fatigue Musculoskeletal: back pain Neurological: Incoordination Objective Exam Vital Signs Vital Signs Date Time Temp Pulse Resp B/P (MAP) Pulse Ox O2 Delivery O2 Flow Rate FiO2 06/16/18 09:00 92 Room Air 06/16/18 05:26 98.1 69 20 90/54 (66) 2.00 Capillary Refill : General Appearance: No Apparent Distress, WD/WN, Chronically ill Respiratory: Lungs Clear, Normal Breath Sounds, No Accessory Muscle Use, No Respiratory Distress Cardiovascular: Regular Rate, Rhythm, No Edema, No Gallop, No JVD, No Murmur, Normal Peripheral Pulses Back: Normal Inspection, No CVA Tenderness, No Vertebral Tenderness Extremity: Normal Capillary Refill, Normal Inspection, Normal Range of Motion, Non Tender, No Calf Tenderness Neurologic/Psychiatric: Alert, Oriented x3, No Motor/Sensory Deficits, Normal Mood/Affect, forensic manager II-XII Norm as Tested Skin: Normal Color, Warm/Dry Lymphatic: No Adenopathy Results/Procedures Lab Laboratory Tests 06/16/18 05:45 Patient resulted labs reviewed. Assessment/Plan Assessment and Plan Assess & Plan/Chief Complaint Assessment: (1) Hepatic encephalopathy (2) End stage liver disease (3) H/O splenectomy (4) History of ITP (5) Chronic back pain (6) Thrombocytopenia (7) Anemia (8) Leukocytosis (9) History of pneumonia (10) Fall (11) History of hematemesis (12) Diabetes mellitus (13) Liver cirrhosis secondary to [place] (14) Obesity (BMI 30-39.9) (15) Renal insufficiency (16) Increased ammonia level (17) Jaundice (18) History of acute respiratory failure (19) Hepatitis C virus infection resolved after antiviral drug therapy (20) Ascites (21) Nocturnal hypoxemia Plan: Increase Lactulose to TID for 5 loose BM's per day Monitor sugar IRF therapies Chronic back pain management (1) Hepatic encephalopathy (2) Diabetes mellitus (3) Anemia (4) Ascites (5) Jaundice (6) Leukocytosis (7) Renal insufficiency (8) Thrombocytopenia (9) Fall (10) History of pneumonia (11) Chronic back pain (12) End stage liver disease (13) History of acute respiratory failure (14) History of ITP (15) Obesity (BMI 30-39.9) (16) Increased ammonia level (17) Liver cirrhosis secondary to [place] (18) History of hematemesis (19) Hepatitis C virus infection resolved after antiviral drug therapy (20) ESSENTIAL (PRIMARY) HYPERTENSION (21) VENOUS INSUFFICIENCY (CHRONIC) (PERIPHERAL) (22) DIFFICULTY IN WALKING, NOT ELSEWHERE CLASSIFIED (23) Nocturnal hypoxemia (24) H/O splenectomy Clinical Quality Measures DVT/VTE Risk/Contraindication: Risk Factor Score Per Nursin RFS Level Per Nursing on Admit: 4+=Very High NUHA LUCAS DO Jun 16, 2018 08:41
--- NOTE | 2018-06-16 08:57 | Occupational Ther Daily Note ---
OT Current Status-Daily Note Subjective Pt in recliner, had finished her breakfast, alert, oriented, cooperative, agree for OT assessment for ADL's & Shower activity Pain Numeric Pain Scale: 7 Location: Lower Location Body Site: Back Pain Description: Throbbing Mental Status/Objective Patient Orientation: Person, Place, Time Therapy Code Descriptions/Definitions Functional [place] Measure: 0=Not Assessed/NA 4=Minimal Assistance 1=Total Assistance 5=Supervision or Setup 2=Maximal Assistance 6=Modified [place] 3=Moderate Assistance 7=Complete [place] ADL-Treatment Pt participate in Shower activity with mod A , Provided long handled Bath- sponge to clean back, feet & perineals. Pt morbid obese , hardly stand during shower holding grab bar due to pain & waekness.Pt dry her front body with set up & mod A in cleaning & drying back & bottom . Pt SBA in UB dressing & Mod A in LB garments. Pt needs set up in brushing teeth & brushing hairs. 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 Completed 30 reps x 2 lbs with BUE , 30 reps with red theraband & 40 reps with hand gripper . Pt very cooperative. & asking for shower daily. Pt seen in PM too for thera-ex & Aaliyah- acts. Pt positioned properly in bed to increase comfort & to prevent from straining on her back. Pt moved up in bed & positioned in proper anatomical aligned position . Pt completed. 50 reps with hand gripper with both hands, 30 reps with 2 lbs & 30 reps with red theraband with BUE to strengthen BUE to participate in all ADLs & to push up from bed to stand with walker. Decreased pain in back to 5/10 on VAS. Therapy Code Descriptions/Definitions Functional [place] Measure: 0=Not Assessed/NA 4=Minimal Assistance 1=Total Assistance 5=Supervision or Setup 2=Maximal Assistance 6=Modified [place] 3=Moderate Assistance 7=Complete [place] Therapy Quality Codes: 6 Independent with activity with or without an assistive device 5 Patient requires set up or clean up by helper. Patient completes activity by themselves 4 Supervision or touching assist (CGA). [place] provide cues , steadying assist 3 The helper provides less than half the effort to complete the activity 2 The helper provides more than half the effort to complete the activity 1 Dependent. The helper does all the effort to complete an activity 7 Patient refused to complete or attempt activity 9 The patient did not perform the activity before the current illness or injury 88 Not attempted due to Medical conditions or safety concerns Eating (FIM): 6 Eating (QC): 6 Grooming (FIM): 5 Oral Hygiene (QC): 5 Bathing (FIM): 3 Bathing Location: L Arm, R Arm, L Upper Leg, R Upper Leg, L Lower Leg ( including foot), R Lower Leg (including foot), Chest, Abdomen, Buttocks, Perineal Area Shower/Bathe Self (QC): 3 Upper Body (FIM): 5 Upper Body Dressing (QC): 5 Lower Body Dressing (FIM): 3 Lower Body Dressing (QC): 3 On/Off Footwear (QC): 3 Toileting (FIM): 4 Toileting Hygiene (QC): 5 Transfers (B, C, W/C) (FIM): 3 (mod-Aleks depends on severity of Back pain.) Toilet/Commode Transfer (FIM): 3 (mod-Aleks depends on severity of Back pain.) Toilet Transfer (QC): 4 (mod-Aleks depends on severity of Back pain.) Tub Transfer(FIM): 0 Shower Transfer(FIM): 3 (mod-Aleks depends on severity of Back pain.) Education OT Patient Education: Correct positioning Teaching Recipient: Patient Teaching Methods: Demonstration Response to Teaching: Verbalize Understanding OT Short Term Goals Short Term Goals Time Frame: Jun 29, 2018 Additional Short Term Goals: 1-Demonstrate ADL Tasks, 2-Verbalize Understanding , 3-ImproveStrength/Unique 1=Demonstrate adherence to instructed precautions during ADL tasks. 2=Patient will verbalize/demonstrate understanding of assistive devices/ modifications for ADL. 3=Patient will improve strength/tolerance for activity to enable patient to perform ADL's. OT Mcfp Goals Mcfp Goals Time Frame: Jul 13, 2018 Eating (FIM): 6 Eating (QC): 6 Groomin Oral Hygiene (QC): 6 Bathing(FIM): 6 Bathing Location: L Arm, R Arm, L Upper Leg, R Upper Leg, L Lower Leg ( including foot), R Lower Leg (including foot), Chest, Abdomen, Buttocks, Perineal Area Shower/Bathe Self (QC): 6 Upper Body Dressing(FIM): 6 Upper Body Dressing (QC): 6 Lower Body Dressing(FIM): 6 Lower Body Dressing (QC): 6 On/Off Footwear (QC): 6 Toileting(FIM): 6 Toileting Hygiene (QC): 6 Transfers (B,C,W/C) (FIM): 6 Toilet/Commode Transfer(FIM): 6 Toilet/Commode Transfer (QC): 6 Tub Transfer(FIM): 0 Shower Transfer(FIM): 6 Additional Goals: 1-Demonstrate ADL Tasks, 2-Verbalize Understanding, 3- ImproveStrength/Unique 1=Demonstrate adherence to instructed precautions during ADL tasks. 2=Patient will verbalize/demonstrate understanding of assistive devices/ modifications for ADL. 3=Patient will improve strength/tolerance for activity to enable patient to perform ADL's. OT Education/Plan Problem List/Assessment Assessment: Decreased Activ Tolerance, Decreased Safety Aware, Decreased UE Strength, Dependent Transfers, Impaired Bed Mobility, Impaired Funct Balance, Impaired Self-Care Skills Discharge Recommendations Plan/Recommendations: Continue POC Therapy D/C Recommendations: Home w/ Family Support Equpiment Recommendations-D/C: Extended Bath Bench, Extended Shower Sprayer, Circus Trainer, [place] Treatment Plan/Plan of Care Treatment,Training & Education: Yes Patient would benefit from OT for education, treatment and training to promote independence in ADL's, mobility, safety and/or upper extremity function for ADL' s. Plan of Care: ADL Retraining, Functional Mobility, Group Exercise/Act as Ind, UE Funct Exercise/Act, UE Neuromus Re-Ed/Coord Treatment Duration: Jul 13, 2018 Frequency: 5 times per week Estimated Hrs Per Day: 1.5 hours per day Agreement: Yes Rehab Potential: Guarded Time/GCodes Start Time: 07:00 (07:00AM - 08:00 am = 60 min.) Stop Time: 15:25 ([id number] = 20 min) Total Time Billed (hr/min): 80 (60+20 =80 MIN) Billed Treatment Time 1, ADLs 45 min, Ex 35 min. Total 80 min. CRISTEL FARRELL OT Jun 16, 2018 08:57
[2018-06-16] MEDS ORDERED: GABAPENTIN 300 MG (NEURONTIN) CAP PO SCH (09:00)
[2018-06-16] MEDS: RIFAXIMIN 550 MG TABLET (XIFAXAN) PO SCH ×2 (09:13→19:49)
[2018-06-16] MEDS: BUMETANIDE 1 MG (BUMEX) TAB PO SCH (09:13)
[2018-06-16] MEDS: FLUoxetine HCL 20 MG (PROzac) CAP PO SCH (09:13)
[2018-06-16] MEDS: LORATADINE (CLARITIN) 10 MG TAB PO SCH (09:13)
[2018-06-16] MEDS: lisINopril 10 MG (PRINIVIL) TABLET PO SCH (09:13)
[2018-06-16] MEDS: LACTULOSE SYRUP 10GM/15ML (ENULOSE) 30ML UDC PO SCH ×4 (09:13→19:50)
[2018-06-16] MEDS: MICONAZOLE 2% POWDER (DESENEX AF) 90 GM TOP SCH ×2 (09:23→19:54)
[2018-06-16] MEDS ORDERED: CARI350T27 PO (10:03)
[2018-06-16] MEDS ORDERED: CYCL10TA9 PO (10:04)
[2018-06-16] MEDS ORDERED: PRD20T PO (10:04)
--- NOTE | 2018-06-16 10:38 | ST Cognitive Linguistic Eval ---
Speech Evaluation-General Medical Diagnosis respiratory distress/hypoxia Onset Date: Jun 07, 2018 Therapy Diagnosis Therapy Diagnosis: Cognitive-communication Precautions Precautions/Isolations: Fall Prevention, Standard Precautions Referral Referring Physician: Dr. Subramanian Medical History Pertinent Medical History: DM, HTN, Neuropathy Reviewed History: Yes Social History Current Living Status: Spouse Speech PLF-Current Status Prior Level of Function The patient lived at home with her . She was independent for most of her daily needs. Subjective The patient was pleasant and cooperative with the evaluation process. Language Eval: Auditory Comprehends Simple Yes/No Ques: Functional Indent/Objects Multiple [place]: Functional Ident/Pics in Multiple [place]: Functional Follows 1-Step Commands: Functional Follows Complex Directions: Functional Follows General Conversations: Functional Language Eval: Verbal Language Completes Spontaneous Greeting: Functional Produces Auto, Serial Info: Functional Imitates Simple Words/Phrases: Functional Word Finding: Functional Requests Basic Needs: Functional States Basic Personal Info: Functional Expresses Complex Ideas: Functional Objective Cognitive Domain Attention: WNL Memory: WNL Problem Solving: Functional Executive Functions: WNL Visuospatial Skills: WNL Clock Drawing Severity Rating: WNL Objective Formal/Standardized Tests Tullos Cognitive Assessment (MOCA) Results Visuospatial/Executive: 5/5, Namin/3, Memory: Immediate 5/5, Delayed: 4/5, Attention: 6/6, Language: 3/3, Abstraction: 2/2, Orientation: 6/6 Oral Motor/Speech Production Within Functional Limits Impression The patient is a pleasant 52 year old female who was admitted to the ARU for strengthening prior to her return home. She was given the MOCA in her room with normal range for all areas tested. The patient does not require skilled ST at this time. Communication/Social Cognition Comprehension: 7 Expression: 7 Social Interaction: 7 Problem Solvin Memory: 7 Speech Patient Assess Expression of Ideas/Wants: Expression (4) Understanding Verbal Content: Understands (4) Brief Interview-Mental Status: Yes Repetition of Three Words: Three (3) Temporal Orientation: Year: Correct (3) Temporal Orientation: Month: Accurate within 5 days(2) Temporal Orientation: Day: Correct (1) Recall : Wear to say "Sock": Yes, no cue required (2) Recall : Color: Yes, after cueing (1) Recall : Bed: Yes, no cue required (2) Memory/Recall Ability: Current season, That he or she is in a hsp/hsp unit Speech-Plan Patient/Family Goals Patient/Family Goals: The patient plans to return home post rehab. Treatment Plan Speech Therapy Treatment Plan: Discontinue ST The patient does not warrant skilled ST services at this time. Treatment Duration: Jun 16, 2018 Frequency: 1 time per week Estimated Hrs Per Day: .25 hour per day Rehab Potential: Guarded Barriers to Learning: None identified Pt/Family Agrees to Plan: Yes Safety Risks/Education Teaching Recipient: Patient Teaching Methods: Discussion Response to Teaching: Verbalize Understanding Education Topics Provided: Safety within her room. Time Speech Therapy Time In: 08:30 Speech Therapy Time Out: 09:00 Total Billed Time: 30 Billed Treatment Time 1, SPSNDCOMP GEMINI Tapia Jun 16, 2018 10:38
[2018-06-16] MEDS ORDERED: GABAPENTIN 300 MG (NEURONTIN) CAP PO PRN ×2 (10:45)
--- NOTE | 2018-06-16 11:26 | Physical Therapy Daily Note ---
PT Daily Note-Current Subjective Patient in bed pre tx, agrees to PT but is very drowsy, has pain of 4/10 in right low back and hip. Appearance Patient BTB post tx with nurse call, phone, tray, all needs met. Has dajuan, nurse notified of nausea and pain. Mental Status Patient Orientation: Person, Place, Situation Transfers Therapy Code Descriptions/Definitions Functional [place] Measure: 0=Not Assessed/NA 4=Minimal Assistance 1=Total Assistance 5=Supervision or Setup 2=Maximal Assistance 6=Modified [place] 3=Moderate Assistance 7=Complete [place] Therapy Quality Codes: 6 Independent with activity with or without an assistive device 5 Patient requires set up or clean up by helper. Patient completes activity by themselves 4 Supervision or touching assist (CGA). [place] provide cues , steadying assist 3 The helper provides less than half the effort to complete the activity 2 The helper provides more than half the effort to complete the activity 1 Dependent. The helper does all the effort to complete an activity 7 Patient refused to complete or attempt activity 9 The patient did not perform the activity before the current illness or injury 88 Not attempted due to Medical conditions or safety concerns Transfers (B, C, W/C) (FIM): 3 Scootin Rollin Supine to/from Sit: 3 Sit to/from Stand: 5 Bed to/from Chair: 5 Patient needed assist with one leg with supine to sit and both legs sit to supine. Weight Bearing Right Lower Extremity: Right Full Weight Bearing Left Lower Extremity: Left Full Weight Bearing Gait Training Gait (FIM): 5 Distance: 150'x2 Gait Level of Assist: 5 Gait Persons Needed: 1 Gait Assistive Device: FWW Antalgic ambulation, slow, often stops due to pain. Exercises Seated Therapy Exercises: Ankle pumps, Long arc quads, Hip flexion Seated Reps: 20 NuStep Minutes: 12 NuStep Workload: 4 Treatments bed mobility and transfers, ambulation, functional strengthening Assessment Current Status: Fair Progress Improved endurance. However, during treatment patient had increasing low back pain and spasms to 8/10. She needed frequent rest breaks due to pain and got nauseated while ambulating back to her room. By the time she got back to her bed she was crying due to pain. After resting in bed a few moments pain subsided. PT Short Term Goals Short Term Goals Wheelchair Distance: See PT goals PT Polisher Implant Goals [facility] Goals PT Polisher Implant Goals Time Frame: Jul 15, 2018 Transfers (B,C,W/C) (FIM): 6 Sit to Lying (QC): 6 Lying-Sitting on Side/Bed(QC): 6 Sit to Stand (QC): 6 Rollin Roll Left to Right (QC): 6 Chair/Vnf-zd-Rgcrl Xfer(QC): 6 Car Transfer (QC): 6 Does the Patient Walk: Yes Gait (FIM): 6 Gait distance (FIM): 3=150 ft Distance: 175' Walk 10 feet (QC): 6 Walk 10ft-Uneven Surface(QC): 6 Walk 50ft with 2 Turns (QC): 6 Walk 150 ft (QC): 6 Gait Level of Assist: 6 Gait Assistive Device: FWW Stairs (FIM): 2 # of Steps: 4 1 Step (curb) (QC): 5 4 Steps (QC): 5 12 Steps (QC): 9 Stairs Level Of Assist: 5 Picking up an Object (QC): 5 PT Plan Problem List Problem List: Activity Tolerance, Functional Strength, Safety, Balance, Gait, Transfer, Bed Mobility, ROM Treatment/Plan Treatment Plan: Continue Plan of Care Treatment Plan: Bed Mobility, Concurrent Therapy, Education, Functional Activity Unique, Functional Strength, Group Therapy, Gait, Safety, Therapeutic Exercise, Transfers Treatment Duration: Jul 15, 2018 Frequency: At least 5 of 7 days/Wk (IRF) Estimated Hrs Per Day: 1.5 hours per day Patient and/or Family Agrees t: Yes Safety Risks/Education Patient Education: Gait Training, Transfer Techniques, Correct Positioning, Safety Issues Teaching Recipient: Patient Teaching Methods: Demonstration, Discussion Response to Teaching: Reinforcement Needed Time/GCodes Time In: 1030 Time Out: 1130 Total Billed Treatment Time: 60 Total Billed Treatment 1 visit GT 25' EX 20' FA 15' ENRRIQUE ROJO PT Jun 16, 2018 11:26
--- NOTE | 2018-06-16 12:42 | Individualized Plan of Care ---
Individualized Plan of Care Rehab Nursing IPOC Order Admission Date Jun 15, 2018 at 15:30 Current Orders Orders Admission Order(Inpt,Obs,Sdc) (06/15/18 13:07) Vital Signs: Routine (Order) 08,16,00 (06/15/18 13:07) Blocker Hand-Inpt Rehab Con (06/15/18 13:07) Rehab Nursing Orders-Ipoc (06/15/18 13:07) Physical Therapy Rehab Orders (06/15/18 13:07) Occupational Therapy Rehab Ord (06/15/18 13:07) Speech Therapy Rehab Orders (06/15/18 13:07) General/Regular (06/15/18 Dinner) Intake & Output 06,14,22 (06/15/18 13:07) Precautions (Aru) (06/15/18 13:07) Weekly Weight (Lbs) WEEK (06/15/18 13:07) Rehab-Intensity Of Therapy (06/15/18 13:07) Initiate Admission Nursing Pro .admission (06/15/18 13:07) Patient Visit (06/15/18 ) Pt Eval Moderate Complexity (06/15/18 ) Acetaminophen Tablet/Caplet (Tylenol T (06/15/18 17:45) Amitriptyline Tablet (Elavil Tablet) (06/15/18 21:00) Benzonatate Capsule (Tessalon Perles) (06/15/18 17:45) Gabapentin Capsule/Tablet (Neurontin Cap (06/16/18 09:00) Gabapentin Capsule/Tablet (Neurontin Cap (06/15/18 21:00) Guaifenesin Sf Syrup (Robitussin Sf Syru (06/15/18 17:45) Lisinopril Tablet (Zestril Tablet) (06/16/18 09:00) Loratadine Tablet (Claritin Tablet) (06/16/18 09:00) Oxycodone Immediate Rel Tablet (Oxyir Ta (06/15/18 17:45) Rifaximin Tablet (Xifaxan Tablet) (06/15/18 21:00) Bumetanide Tablet (Bumex Tablet) (06/16/18 09:00) (Nf) Carisoprodol (06/15/18 21:00) (Nf) Eltrombopag Olamine (Promacta) (06/16/18 09:00) Fluoxetine Capsule (Prozac Capsule) (06/16/18 09:00) Insulin Determir (Per Unit) (Levemir (Pe (06/15/18 21:00) Insulin Aspart (Novolog) (Novolog (Charg (06/16/18 06:00) Tizanidine Tablet (Zanaflex Tablet) (06/15/18 18:45) Miconazole 2% Powder (Desenex Af 2% Powd (06/15/18 21:00) Cbc With Automated Diff (06/16/18 06:00) Comprehensive Metabolic Panel (06/16/18 06:00) Ammonia (06/16/18 06:00) Protime With Inr (06/16/18 06:00) Lactulose Oral Solution (Enulose Oral So (06/15/18 21:00) Ambulate 08,12,20 (06/15/18 19:49) Sequential Compression Device 08,20 (06/15/18 19:49) Dvt/Vte Risk - Notifiy Physici 08 (06/15/18 19:49) Influenza Quad (5+[place]) 2018- (Afluria (06/15/18 20:30) Manual Differential (06/16/18 05:45) Cho 75g/M 1snack (21-2400 Mookie) (06/16/18 Lunch) Gabapentin Capsule/Tablet (Neurontin Cap (06/16/18 10:45) Gabapentin Capsule/Tablet (Neurontin Cap (06/16/18 10:45) Rehab Nursing Orders: Ongoing Assess. of Cognitive Status, Ongoing Assess. of Function Status, Disease Management & Educaiton, Fluid/Electrolyte/Nutrition Mgmt, Medication Management & Education, Management of Risks & Complications, Management of Skin Intergrity, Pain Management, Patient/Family Support Intensity of Therapy to be met Patient to be seen: Min.3h per day/5 of 7d PT IPOC Problem List: Activity Tolerance, Functional Strength, Safety, Balance, Gait, Transfer, Bed Mobility, ROM Treatment Plan: Continue Plan of Care Bed Mobility, Concurrent Therapy, Education, Functional Activity Unique, Functional Strength, Group Therapy, Gait, Safety, Therapeutic Exercise, Transfers Treatment Duration: Jul 15, 2018 Frequency: At least 5 of 7 days/Wk (IRF) Estimated Hrs Per Day: 1.5 hours per day OT IPOC Problems: Decreased Activ Tolerance, Decreased Safety Aware, Decreased UE Strength, Dependent Transfers, Impaired Bed Mobility, Impaired Funct Balance, Impaired Self-Care Skills OT Treatment, Training and Edu: Yes Plan of Care: ADL Retraining, Functional Mobility, Group Exercise/Act as Ind, UE Funct Exercise/Act, UE Neuromus Re-Ed/Coord Treatment Duration: Jul 13, 2018 Frequency: 5 times per week Estimated Hrs Per Day: 1.[address] IPOC Speech Therapy Treatment Plan: Discontinue ST Treatment Duration: Jun 16, 2018 Frequency: 1 time per week Estimated Hrs Per Day: .25 hour per day Blocker Hand/Case Mgmt Blocker Hand/Case Managemen: Discharge Planning Dietitian/Film Archivist Dietitian/Film Archivist to monitor nutritional status and make changes and/or recommendations as needed and work with speech pathology on dietary upgrades as the occur. Physician IPOC Medical Issues being managed closely and that require the 24 hour availability of a physician: Monitoring for hepatic encephalopathy signs and increasing Lactulose to TID for 5 BM's loose per day very complex co-morbidities Medical Issues: Bowel/Bladder Function, Falls Precautions, Fluid/Electrolyte/ Nutrition Balance, Pain Management Brief Synthesis of Preadmission Screen, Post-Admission Evaluation, and Therapy Evaluations: PT/OT management for back pain and decreased ability to ambulate in order to go home and remain independent ADL's Medical Prognosis: Good Anticipated Length of Stay: 10 days NUHA LUCAS DO Jun 16, 2018 12:42
--- NOTE | 2018-06-16 14:53 | Physical Therapy Daily Note ---
PT Daily Note-Current Subjective Patient in chair pre tx, agrees to PT, has no complaints of pain. Appearance Patient in bed post tx with nurse call, phone, tray, all needs met, family in room. Mental Status Patient Orientation: Person, Place, Situation Transfers Therapy Code Descriptions/Definitions Functional [place] Measure: 0=Not Assessed/NA 4=Minimal Assistance 1=Total Assistance 5=Supervision or Setup 2=Maximal Assistance 6=Modified [place] 3=Moderate Assistance 7=Complete [place] Therapy Quality Codes: 6 Independent with activity with or without an assistive device 5 Patient requires set up or clean up by helper. Patient completes activity by themselves 4 Supervision or touching assist (CGA). [place] provide cues , steadying assist 3 The helper provides less than half the effort to complete the activity 2 The helper provides more than half the effort to complete the activity 1 Dependent. The helper does all the effort to complete an activity 7 Patient refused to complete or attempt activity 9 The patient did not perform the activity before the current illness or injury 88 Not attempted due to Medical conditions or safety concerns Transfers (B, C, W/C) (FIM): 4 Scootin Rollin Supine to/from Sit: 4 Sit to/from Stand: 5 Bed to/from Chair: 5 Patient needed assist with just one leg getting into bed. Weight Bearing Right Lower Extremity: Right Full Weight Bearing Left Lower Extremity: Left Full Weight Bearing Gait Training Gait (FIM): 5 Distance: 150'x2 Gait Level of Assist: 5 Gait Persons Needed: 1 Gait Assistive Device: FWW Patient has antalgic ambulation, slow, occasional standing rest breaks due to pain. Exercises Standing: Hamstring curls, Heel/toe raises, 3 way Ex=Flex, Abd, Ext (not ext), Marching, Mini squats Standing Reps: 15 Treatments bed mobility and transfers, ambulation, functional strengthening Assessment Current Status: Fair Progress improved ambulation, less pain overall PT Short Term Goals Short Term Goals Wheelchair Distance: See PT goals PT Foreign Exchange Student Coordinator Goals Jail Goals PT Jail Goals Time Frame: Jul 15, 2018 Transfers (B,C,W/C) (FIM): 6 Sit to Lying (QC): 6 Lying-Sitting on Side/Bed(QC): 6 Sit to Stand (QC): 6 Rollin Roll Left to Right (QC): 6 Chair/Oiu-fq-Vraow Xfer(QC): 6 Car Transfer (QC): 6 Does the Patient Walk: Yes Gait (FIM): 6 Gait distance (FIM): 3=150 ft Distance: 175' Walk 10 feet (QC): 6 Walk 10ft-Uneven Surface(QC): 6 Walk 50ft with 2 Turns (QC): 6 Walk 150 ft (QC): 6 Gait Level of Assist: 6 Gait Assistive Device: FWW Stairs (FIM): 2 # of Steps: 4 1 Step (curb) (QC): 5 4 Steps (QC): 5 12 Steps (QC): 9 Stairs Level Of Assist: 5 Picking up an Object (QC): 5 PT Plan Problem List Problem List: Activity Tolerance, Functional Strength, Safety, Balance, Gait, Transfer, Bed Mobility, ROM Treatment/Plan Treatment Plan: Continue Plan of Care Treatment Plan: Bed Mobility, Concurrent Therapy, Education, Functional Activity Unique, Functional Strength, Group Therapy, Gait, Safety, Therapeutic Exercise, Transfers Treatment Duration: Jul 15, 2018 Frequency: At least 5 of 7 days/Wk (IRF) Estimated Hrs Per Day: 1.5 hours per day Patient and/or Family Agrees t: Yes Safety Risks/Education Patient Education: Gait Training, Transfer Techniques, Correct Positioning, Safety Issues Teaching Recipient: Patient Teaching Methods: Demonstration, Discussion Response to Teaching: Reinforcement Needed Time/GCodes Time In: 1430 Time Out: 1500 Total Billed Treatment Time: 30 Total Billed Treatment 1 visit EX 15' GT 15' ENRRIQUE ROJO PT Jun 16, 2018 14:53
--- NOTE | 2018-06-16 15:22 | Therapy Group Daily Note ---
Therapy Daily Group Note Patient Education Topic Other List Below (memory strategies/ARU description) Exercises LE Seated Exercise, UE Exercise Session Ratio (pt:therapist): 4:1 Goal of Session: Education on ARU Expectations, Memory Strategies, UE/LE Strengthing Goal Met for this Session: Yes Pt Benefit of Group: Contributions to Others, F/U Use of Strategies @Home, Improved Cognition, Recognition of Peers, Socialization Other/Notes Pt ambulated to OT/PT group in [facility] area. Group consisted of introductions (name, place, best restaurant), socialization, UE/LE seated exercises and educational topics (memory strategies/ARU description). Pt introduced self appropriately and actively listened to peers. Pt able to complete seated UE/LE exercises. Pt was able to verbalize memory strategies and acknowledge understanding of educational topics. After therapy, pt sitting in recliner with call light/phone in reach. All needs met in room. Start Time: 13:00 Stop Time: 14:30 Total Billed Treatment Time: 90 Total Billed Treatment 1-GRP ARNAUD DIA Jun 16, 2018 15:22
--- NOTE | 2018-06-16 16:07 | NUR ---
CORNER CUTTER met with patient to complete initial assessment. Patient was alert and oriented and agreeable to assessment. Patient admitted to ARU from with hepatic encephalopathy. Patient and spouse reside in a one level home in [place], [place]. Prior to hospitalization patient reports a decrease in function within the last 2 weeks and an increase in fatigue. Per patient, she did not utilize equipment however does possess a cane, walker, and bedside commode. Patient expresses interest in obtaining a shower chair at discharge. Patient's spouse typically supervises patient during showers as she is fearful of falling and becomes weak in her lower extremities. Patient identifies spouse, as primary contact at [phone] and mother, Christina as a secondary contact at [phone]. PCP identified as Dr. Bunch of [place], [place]. Insurance verified as [employer] with prescription coverage. [facility]. CORNER CUTTER reviewed typical ARU length of stay, weekly insurance updates and weekly team conference meetings. Patient expresses no concerns at this time. CORNER CUTTER will continue to follow for additional needs. Addendum: 06/16/18 at 1620 by YAHAIRA DYSON CORNER CUTTER faxed H&P, individual plan of care and therapy evaluations to patient's insurance provider.
[2018-06-16 17:56] VITALS: BP 106/66
[2018-06-16] MEDS: BENZONATATE 100 MG (TESSALON) CAPSULE PO PRN (18:13)
[2018-06-16] MEDS ORDERED: PATIENT MAY USE OWN MEDS, ALL MC SCH (18:30)
[2018-06-16] MEDS: AMITRIPTYLINE 25 MG (ELAVIL) TAB PO SCH (19:49)
[2018-06-16] MEDS: PROMACTA 50 MG PO SCH (19:51)
[2018-06-17 06:03] VITALS: BP 131/69
[2018-06-17] MEDS: LACTULOSE SYRUP 10GM/15ML (ENULOSE) 30ML UDC PO SCH ×4 (08:34→20:54)
[2018-06-17] MEDS: BUMETANIDE 1 MG (BUMEX) TAB PO SCH (08:35)
[2018-06-17] MEDS: MICONAZOLE 2% POWDER (DESENEX AF) 90 GM TOP SCH ×2 (08:35→19:43)
[2018-06-17] MEDS: inSUlin ASPART (NovoLOG) 1 UNIT/0.01 ML (CHARGE PER UNIT) SC SCH ×3 (08:35→16:34)
[2018-06-17] MEDS: RIFAXIMIN 550 MG TABLET (XIFAXAN) PO SCH ×2 (08:35→20:53)
[2018-06-17] MEDS: lisINopril 10 MG (PRINIVIL) TABLET PO SCH (08:35)
[2018-06-17] MEDS: LORATADINE (CLARITIN) 10 MG TAB PO SCH (08:35)
[2018-06-17] MEDS: FLUoxetine HCL 20 MG (PROzac) CAP PO SCH (08:35)
--- NOTE | 2018-06-17 08:37 | Physical Therapy Daily Note ---
PT Daily Note-Current Subjective Patient has increase c/o back pain with medication issued. Pain Numeric Pain Scale: 8 Location: Lower Location Body Site: Back Pain Description: Chronic Mental Status Patient Orientation: Confused Transfers Therapy Code Descriptions/Definitions Functional [place] Measure: 0=Not Assessed/NA 4=Minimal Assistance 1=Total Assistance 5=Supervision or Setup 2=Maximal Assistance 6=Modified Rich 3=Moderate Assistance 7=Complete Rich Therapy Quality Codes: 6 Independent with activity with or without an assistive device 5 Patient requires set up or clean up by helper. Patient completes activity by themselves 4 Supervision or touching assist (CGA). [place] provide cues , steadying assist 3 The helper provides less than half the effort to complete the activity 2 The helper provides more than half the effort to complete the activity 1 Dependent. The helper does all the effort to complete an activity 7 Patient refused to complete or attempt activity 9 The patient did not perform the activity before the current illness or injury 88 Not attempted due to Medical conditions or safety concerns Transfers (B, C, W/C) (FIM): 4 Scootin Rollin Roll Left to Right (QC): 5 Supine to/from Sit: 5 Sit to/from Stand: 4 Sit to Lying (QC): 5 Sit to Stand (QC): 4 Chair/Rkw-bh-Fgqbn Xfer(QC): 4 Bed to/from Chair: 4 Weight Bearing Right Lower Extremity: Right Full Weight Bearing Left Lower Extremity: Left Full Weight Bearing Gait Training Does the Patient Walk?: Yes Gait (FIM): 2 Distance (FIM): 8=963-39 ft Distance: 125' x 3 Walk 10 feet (QC): 4 Walk 50 ft with 2 Turns(QC): 4 Gait Level of Assist: 4 Gait Assistive Device: FWW slightly unsteady gait sequence with 3 episodes of retropulsion LOB with self correct Exercises Seated Therapy Exercises: Ankle pumps, Long arc quads, Hip flexion Seated Reps: 15 (3 sets) Assessment Patient is very fatigued on this date. She tolerated treatment and returned to bed with needs met and spouse present. PT Short Term Goals Short Term Goals Wheelchair Distance: See PT goals PT Paraffin Plant Sweater Operator Goals Paraffin Plant Sweater Operator Goals PT Chcf Goals Time Frame: Jul 15, 2018 Transfers (B,C,W/C) (FIM): 6 Sit to Lying (QC): 6 Lying-Sitting on Side/Bed(QC): 6 Sit to Stand (QC): 6 Rollin Roll Left to Right (QC): 6 Chair/Wex-xy-Jhmgl Xfer(QC): 6 Car Transfer (QC): 6 Does the Patient Walk: Yes Gait (FIM): 6 Gait distance (FIM): 3=150 ft Distance: 175' Walk 10 feet (QC): 6 Walk 10ft-Uneven Surface(QC): 6 Walk 50ft with 2 Turns (QC): 6 Walk 150 ft (QC): 6 Gait Level of Assist: 6 Gait Assistive Device: FWW Stairs (FIM): 2 # of Steps: 4 1 Step (curb) (QC): 5 4 Steps (QC): 5 12 Steps (QC): 9 Stairs Level Of Assist: 5 Picking up an Object (QC): 5 PT Plan Treatment/Plan Treatment Plan: Continue Plan of Care Treatment Plan: Bed Mobility, Concurrent Therapy, Education, Functional Activity Unique, Functional Strength, Group Therapy, Gait, Safety, Therapeutic Exercise, Transfers Treatment Duration: Jul 15, 2018 Frequency: At least 5 of 7 days/Wk (IRF) Estimated Hrs Per Day: 1.5 hours per day Patient and/or Family Agrees t: Yes Time/GCodes Time In: 705 Time Out: 730 Total Billed Treatment Time: 25 Total Billed Treatment 1 visit EX 9 min GT 16 min KRISTIE JIMENES PT Jun 17, 2018 08:37
--- NOTE | 2018-06-17 09:26 | Occupational Ther Daily Note ---
OT Current Status-Daily Note Subjective Pt seen in room, up in bed, agreeable to OT. Pt reported that her back pain was OK but had obvious pain when transitioning from supine to sit and back into bed. Nursing notified of pain and UE and LE shaking Appearance Pt reported that she was more confused today and thought it was her medications. She had a little difficulty recalling information but was able to get it with increased time. Mental Status/Objective Therapy Code Descriptions/Definitions Functional [place] Measure: 0=Not Assessed/NA 4=Minimal Assistance 1=Total Assistance 5=Supervision or Setup 2=Maximal Assistance 6=Modified [place] 3=Moderate Assistance 7=Complete [place] ADL-Treatment Pt was able to move from supine to sit EOB without assistance but was in obvious pain during transition. She sat EOB without help, then positioned herself for sit to stand. Cues for hand placement. Once standing, she reported that her knees were shaky and so were her arms and she felt like she might fall. She sat back on EOB but did not feel strong enough to attempt to walk to bathroom to brush her teeth. She was able to get her legs back into bed but needed cues and help adjusting bed to scoot up to head of bed. Activity was very fatiguing. Pt sat up in bed to brush her teeth with setup and wash her face. All movements and activities required recovery breaks. She completed ADLs without O2 per her suggestion but it was left with her in bed. Nursing notified of shakiness. Pt left up in bed, all needs met. Therapy Code Descriptions/Definitions Functional [place] Measure: 0=Not Assessed/NA 4=Minimal Assistance 1=Total Assistance 5=Supervision or Setup 2=Maximal Assistance 6=Modified [place] 3=Moderate Assistance 7=Complete [place] Therapy Quality Codes: 6 Independent with activity with or without an assistive device 5 Patient requires set up or clean up by helper. Patient completes activity by themselves 4 Supervision or touching assist (CGA). [place] provide cues , steadying assist 3 The helper provides less than half the effort to complete the activity 2 The helper provides more than half the effort to complete the activity 1 Dependent. The helper does all the effort to complete an activity 7 Patient refused to complete or attempt activity 9 The patient did not perform the activity before the current illness or injury 88 Not attempted due to Medical conditions or safety concerns Grooming (FIM): 5 Education OT Patient Education: Progress toward Goal/Update tx plan, Purpose of tx/ functional activities, Transfer techniques Teaching Recipient: Patient Teaching Methods: Discussion Response to Teaching: Verbalize Understanding, Return Demonstration, Reinforcement Needed OT Short Term Goals Short Term Goals Time Frame: Jun 29, 2018 Additional Short Term Goals: 1-Demonstrate ADL Tasks, 2-Verbalize Understanding , 3-ImproveStrength/Unique 1=Demonstrate adherence to instructed precautions during ADL tasks. 2=Patient will verbalize/demonstrate understanding of assistive devices/ modifications for ADL. 3=Patient will improve strength/tolerance for activity to enable patient to perform ADL's. OT Home Care Nurse Goals Longterm Goals Time Frame: Jul 13, 2018 Eating (FIM): 6 Eating (QC): 6 Groomin Oral Hygiene (QC): 6 Bathing(FIM): 6 Bathing Location: L Arm, R Arm, L Upper Leg, R Upper Leg, L Lower Leg ( including foot), R Lower Leg (including foot), Chest, Abdomen, Buttocks, Perineal Area Shower/Bathe Self (QC): 6 Upper Body Dressing(FIM): 6 Upper Body Dressing (QC): 6 Lower Body Dressing(FIM): 6 Lower Body Dressing (QC): 6 On/Off Footwear (QC): 6 Toileting(FIM): 6 Toileting Hygiene (QC): 6 Transfers (B,C,W/C) (FIM): 6 Toilet/Commode Transfer(FIM): 6 Toilet/Commode Transfer (QC): 6 Tub Transfer(FIM): 0 Shower Transfer(FIM): 6 Additional Goals: 1-Demonstrate ADL Tasks, 2-Verbalize Understanding, 3- ImproveStrength/Unique 1=Demonstrate adherence to instructed precautions during ADL tasks. 2=Patient will verbalize/demonstrate understanding of assistive devices/ modifications for ADL. 3=Patient will improve strength/tolerance for activity to enable patient to perform ADL's. OT Education/Plan Discharge Recommendations Plan/Recommendations: Continue POC Treatment Plan/Plan of Care Patient would benefit from OT for education, treatment and training to promote independence in ADL's, mobility, safety and/or upper extremity function for ADL' s. Plan of Care: ADL Retraining, Functional Mobility, Group Exercise/Act as Ind, UE Funct Exercise/Act, UE Neuromus Re-Ed/Coord Treatment Duration: Jul 13, 2018 Frequency: 5 times per week Estimated Hrs Per Day: 1.5 hours per day Agreement: Yes Rehab Potential: Guarded Time/GCodes Start Time: 08:45 Stop Time: 09:15 Total Time Billed (hr/min): 30 Billed Treatment Time visit, 30 minutes functional activity PEDRO COY OT Jun 17, 2018 09:26
[2018-06-17] MEDS: BENZONATATE 100 MG (TESSALON) CAPSULE PO PRN (10:38)
--- NOTE | 2018-06-17 12:45 | PM&R Progress Note ---
Subjective HPI/CC On Admission Date Seen by Provider: Jun 17, 2018 Time Seen by Provider: 11:15 CC: Hepatic encephalopathy with debility HPI: This is a 52[address] Torres'josiah at [facility] who presents to IRF in need debility resolution prior to DC home after critical illness at [facility] where she was admitted on 06/07/18 after transferred from [facility] where she presented with altered mental status following a fall and given pain meds and found to have pneumonia bilaterally and acute respiratory failure. Patient was placed on appropriate antibiotics at [facility] and evaluated for elevated wbc (bone marrow negative) and treated for elevated ammonia at 120 with Lactulose and Rifaximin. She had improvement at [facility] but underwent trigger point injections of her back due to the severity of her pain and will have follow up for epidural pain injection at [facility] after IRF DC. All records were reviewed in-depth as evidenced by problem list entered into this note. Currently patient is fatigued from the drive from but denies any new pain and reports chronic back pain that restricts her movements. She wears O2 at night. Labs were reviewed and ammonia level was 41 but only received 1 dose of Lactulose yesterday due to her travels and will dose that TID or more to achieve 5 BM's per day. Subjective/Events-last exam Patient doing well and slept better last night Had 5 loose BM yesterday so doing well on the dosing of the Lactulose Chronic back pain is about the same Takes Neurontin as needed so we changed that Is able to eat breakfast with her Tremors at times so will monitor that Review of Systems General: Fatigue Musculoskeletal: back pain Neurological: Weakness, Numbness, Incoordination, Other (tremors) Objective Exam Vital Signs Vital Signs Date Time Temp Pulse Resp B/P (MAP) Pulse Ox O2 Delivery O2 Flow Rate FiO2 06/17/18 09:00 92 Room Air 06/17/18 06:03 99.2 99 20 131/69 (89) 2.00 Capillary Refill : General Appearance: No Apparent Distress, WD/WN, Chronically ill, Obese HEENT: PERRL/EOMI, Normal ENT Inspection, Pharynx Normal, Moist Mucous Membranes, Scleral Icterus (L) Neck: Full Range of Motion, Normal Inspection, Non Tender, Supple Respiratory: Lungs Clear, Normal Breath Sounds, No Accessory Muscle Use, No Respiratory Distress Cardiovascular: Regular Rate, Rhythm, No Edema, No Gallop, No JVD, No Murmur, Normal Peripheral Pulses Gastrointestinal: Normal Bowel Sounds, No Organomegaly, No Pulsatile Mass, Non Tender, Soft, Other (fluid wave subtle only due to habitus) Back: Normal Inspection, No CVA Tenderness, No Vertebral Tenderness Extremity: Normal Capillary Refill, Normal Inspection, Normal Range of Motion, Non Tender, No Calf Tenderness Neurologic/Psychiatric: Alert, Oriented x3, No Motor/Sensory Deficits, Normal Mood/Affect, 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 Assessment/Plan Assessment and Plan Assess & Plan/Chief Complaint Assessment: (1) Hepatic encephalopathy (2) End stage liver disease (3) H/O splenectomy (4) History of ITP (5) Chronic back pain (6) Thrombocytopenia (7) Anemia (8) Leukocytosis (9) History of pneumonia (10) Fall (11) History of hematemesis (12) Diabetes mellitus (13) Liver cirrhosis secondary to [place] (14) Obesity (BMI 30-39.9) (15) Renal insufficiency (16) Increased ammonia level (17) Jaundice (18) History of acute respiratory failure (19) Hepatitis C virus infection resolved after antiviral drug therapy (20) Ascites (21) Nocturnal hypoxemia Tremors? Plan: Increase Lactulose to TID for 5 loose BM's per day Monitor sugar IRF therapies Chronic back pain management Monitor tremors (1) Hepatic encephalopathy (2) Diabetes mellitus (3) Anemia (4) Ascites (5) Jaundice (6) Leukocytosis (7) Renal insufficiency (8) Thrombocytopenia (9) Fall (10) History of pneumonia (11) Chronic back pain (12) End stage liver disease (13) History of acute respiratory failure (14) History of ITP (15) Obesity (BMI 30-39.9) (16) Increased ammonia level (17) Liver cirrhosis secondary to [place] (18) History of hematemesis (19) Hepatitis C virus infection resolved after antiviral drug therapy (20) ESSENTIAL (PRIMARY) HYPERTENSION (21) VENOUS INSUFFICIENCY (CHRONIC) (PERIPHERAL) (22) DIFFICULTY IN WALKING, NOT ELSEWHERE CLASSIFIED (23) Nocturnal hypoxemia (24) H/O splenectomy Clinical Quality Measures DVT/VTE Risk/Contraindication: Risk Factor Score Per Nursin RFS Level Per Nursing on Admit: 4+=Very High LUCAS,NUHA DO Jun 17, 2018 12:45
[2018-06-17 16:07] VITALS: BP 93/57
[2018-06-17] MEDS: PROMACTA 50 MG PO SCH (18:24)
[2018-06-17] MEDS: AMITRIPTYLINE 25 MG (ELAVIL) TAB PO SCH (20:53)
[2018-06-18 05:07] VITALS: BP 133/76
--- NOTE | 2018-06-18 09:12 | NUR ---
Patient is very lethargic. Will not wake up to take pills or eat breakfast. states that patient got up around 0400 to go to the BR and was weaker and more confused than normal. Will open eyes and go right back to sleep. BP 102/45, P 119, 02 94% on 2L NC. Both pupils are sluggish. Left more so than right. Unable to follow commands. Blood sugar is 202. Dr. Subramanian notified of above. New order for CBC, CMP, and ammonia.
[2018-06-18 09:30] VITALS: BP 102/45
--- NOTE | 2018-06-18 09:38 | NUR ---
IV started in left AC per VERENA Michelle.
[2018-06-18 09:56] VITALS: BP 123/66
[2018-06-18 09:58] LABS: HEMATOCRIT 28 % (35-52); HEMOGLOBIN 8.6 G/DL (11.5-16.0); MEAN CORPUSCULAR HEMOGLOBIN 28 PG (25-34); MEAN CORPUSCULAR HGB CONC 30 G/DL (32-36); MEAN CORPUSCULAR VOLUME 91 FL (80-99); PLATELET COUNT 156 10^3/uL (130-400); RED CELL DISTRIBUTION WIDTH 21.3 % (10.0-14.5); WHITE BLOOD COUNT 25.8 10^3/uL (4.3-11.0)
[2018-06-18 10:18] LABS: ALBUMIN 3.3 GM/DL (3.2-4.5); BILIRUBIN,TOTAL 0.9 MG/DL (0.1-1.0); CALCIUM 8.1 MG/DL (8.5-10.1); CREATININE SERUM 2.58 MG/DL (0.60-1.30); POTASSIUM 5.8 MMOL/L (3.6-5.0); TOTAL PROTEIN 6.2 GM/DL (6.4-8.2)
[2018-06-18 10:27] VITALS: BP 138/68
--- NOTE | 2018-06-18 10:27 | NUR ---
Dr. Subramanian called with lab results. New order for NS at 70mls/hr. BP 138/68, P 107, 02 93% on 3L. Will be in to see patient shortly.
[2018-06-18] MEDS ORDERED: NS IV 1000 ML 1,000 ML ONE (10:31)
[2018-06-18] MEDS: inSUlin ASPART (NovoLOG) 1 UNIT/0.01 ML (CHARGE PER UNIT) SC SCH ×2 (10:45→12:30)
[2018-06-18] MEDS ORDERED: NS IV 1000 ML 1,000 ML IV SCH (10:45)
--- NOTE | 2018-06-18 11:39 | NUR ---
Dr. Subramanian here to see patient. Orders for an ABG (RT notified) and a CT of the head WO contrast.
--- NOTE | 2018-06-18 11:44 | NUR ---
Temp 101.5. Dr. Subramanian notified. New orders for portable chest XRAY.
[2018-06-18 11:58] LABS: ABG OXYGEN SATURATION 99 % (94-100); ABG PO2 180 MMHG (79-93); ABG TCO2 31.5 MMOL/L (21.0-31.0)
[2018-06-18 12:00] LABS: ABG PCO2 73 MMHG (35-45); ABG PH 7.24 (7.37-7.43); ALLENS TEST YES-POS
[2018-06-18] MEDS ORDERED: PIPERACILLIN/TAZOBACTAM (BULK) 4.5 GM in NS (IVPB) 100 ML IV ONE (12:00)
--- NOTE | 2018-06-18 12:00 | NUR ---
PH 7.[address] Subramanian notified.
[2018-06-18 12:01] LABS: INSPIRED O2 3L; PATIENT TEMP 101.5; VENTILATOR NO
--- NOTE | 2018-06-18 12:05 | NUR ---
Nichole catheter inserted without difficulty.
--- NOTE | 2018-06-18 12:20 | NUR ---
Patient down to CT per cart acc by staff. Will go to ICU [address]
[2018-06-18] MEDS: BUMETANIDE 1 MG (BUMEX) TAB PO SCH (12:29)
[2018-06-18] MEDS: LORATADINE (CLARITIN) 10 MG TAB PO SCH (12:29)
[2018-06-18] MEDS: LACTULOSE SYRUP 10GM/15ML (ENULOSE) 30ML UDC PO SCH (12:29)
[2018-06-18] MEDS: RIFAXIMIN 550 MG TABLET (XIFAXAN) PO SCH (12:29)
[2018-06-18] MEDS: FLUoxetine HCL 20 MG (PROzac) CAP PO SCH (12:29)
[2018-06-18] MEDS: lisINopril 10 MG (PRINIVIL) TABLET PO SCH (12:30)
--- NOTE | 2018-06-18 12:30 | NUR ---
Report to Jenna in ICU.
--- NOTE | 2018-06-18 12:42 | Diagnostic Imaging Report ---
PROCEDURE: CT head without contrast. TECHNIQUE: Multiple contiguous axial images were obtained through the brain without the use of intravenous contrast. Auto Exposure Controls were utilized during the CT exam to meet ALARA standards for radiation dose reduction. INDICATION: Sepsis, weakness, drowsiness. Unable to follow commands. CORRELATION STUDY: 07/25/2016. FINDINGS: Examination compromised by patient motion artifact. Given limitations, there is a slight asymmetric low attenuation of left frontal lobe white matter. This may have been present on prior study but slightly better visualized. Definitive area of decreased attenuation suggest edema is not otherwise suggested. No intracranial hemorrhage. No suggestion for hyperdense MCA sign. Basilar cisterns are maintained. IMPRESSION: 1. Compromised imaging owing to patient motion artifact. Subtle area of asymmetric low density left frontal lobe is noted may been present previously but this appears slightly more prominent. May be chronic. Acute area of edema is considered less likely but not exclude. Given limitations, if further assessment is desired, other short-term followup imaging and/or MRI when patient is clinically able would be recommended. Dictated by: Dictated on workstation # [id number]
--- NOTE | 2018-06-18 12:53 | Discharge Summary ---
Diagnosis/Chief Complaint Date of Admission Jun 15, 2018 at 15:30 Date of Discharge Discharge Diagnosis Acute respiratory failure due to CO2 retention requiring intubation and ICU transfer (1) Hepatic encephalopathy (2) Diabetes mellitus (3) Anemia (4) Ascites (5) Jaundice (6) Leukocytosis (7) Renal insufficiency (8) Thrombocytopenia (9) Fall (10) History of pneumonia (11) Chronic back pain (12) End stage liver disease (13) History of acute respiratory failure (14) History of ITP (15) Obesity (BMI 30-39.9) (16) Increased ammonia level (17) Liver cirrhosis secondary to [place] (18) History of hematemesis (19) Hepatitis C virus infection resolved after antiviral drug therapy (20) ESSENTIAL (PRIMARY) HYPERTENSION (21) VENOUS INSUFFICIENCY (CHRONIC) (PERIPHERAL) (22) DIFFICULTY IN WALKING, NOT ELSEWHERE CLASSIFIED (23) Nocturnal hypoxemia (24) H/O splenectomy Discharge Summary Discharge Physical Examination Allergies: Coded Allergies: metoclopramide (Unverified Allergy, Unknown, 07/21/16) Vitals & I&Os Vital Signs Date Time Temp Pulse Resp B/P (MAP) Pulse Ox O2 Delivery O2 Flow Rate FiO2 06/18/18 11:40 101.5 06/18/18 10:27 107 138/68 (91) 93 Nasal Cannula 3.00 06/18/18 05:07 20 Hospital Course Was the Problem List Reviewed?: Yes Hospital course: Patient had only a brief hospital course in inpatient rehabilitation when she was admitted on directly from [facility]. She did very well maintained on lactulose schedule and overall pertussis obtaining an therapies well and seems to be adjusting well and had no significant concerns except for continued pain of the back which was managed with medication placed on list per . She had an acute decompensation episode which became more complicated due to end-stage liver disease which required transfer to ICU and intubation. Overall she tolerated the therapies in inpatient rehabilitation but unsure how fragile her health is due to end-stage liver disease among other issues on a chronic basis that she will be a candidate for return to inpatient rehabilitation or not. Labs (last 24 hrs) Laboratory Tests 06/15/18 20:32: Glucometer 284H 06/16/18 05:45: White Blood Count 24.0H, Red Blood Count 3.04L, Hemoglobin 8.5L, Hematocrit 27L , Mean Corpuscular Volume 90, Mean Corpuscular Hemoglobin 28, Mean Corpuscular Hemoglobin Concent 31L, Red Cell Distribution Width 21.5H, Platelet Count 145, Mean Platelet Volume , Neutrophils (%) (Auto) , Lymphocytes (%) (Auto) , Monocytes (%) (Auto) , Eosinophils (%) (Auto) , Basophils (%) (Auto) , Neutrophils # (Auto) , Lymphocytes # (Auto) , Monocytes # (Auto) , Eosinophils # (Auto) , Basophils # (Auto) , Neutrophils % (Manual) 74, Lymphocytes % (Manual ) 17, Monocytes % (Manual) 9, Eosinophils % (Manual) 0, Basophils % (Manual) 0, Band Neutrophils 0, Polychromasia SLIGHT, Hypochromasia MODERATE, Poikilocytosis MODERATE, Anisocytosis MARKED, Microcytosis SLIGHT, Macrocytosis MARKED, Spherocytes SLIGHT, Target Cells MODERATE, Elliptocytes SLIGHT, Schistocytes SLIGHT, Prothrombin Time 17.6H, INR Comment 1.4, Sodium Level 139, Potassium Level 5.1H, Chloride Level 100, Carbon Dioxide Level 28, Anion Gap 11 , Blood Urea Nitrogen 33H, Creatinine 1.37H, Estimat Glomerular Filtration Rate 40, BUN/Creatinine Ratio 24, Glucose Level 171H, Calcium Level 8.6, Corrected Calcium 9.4, Total Bilirubin 0.9, Aspartate Amino Transf (AST/SGOT) 30, Alanine Aminotransferase (ALT/SGPT) 18, Alkaline Phosphatase 93, Ammonia 41H, Total Protein 5.7L, Albumin 3.0L 06/16/18 10:48: Glucometer 111H 06/16/18 16:25: Glucometer 99 06/16/18 19:56: Glucometer 107 06/17/18 05:01: Glucometer 129H 06/17/18 10:41: Glucometer 159H 06/17/18 15:38: Glucometer 177H 06/17/18 20:46: Glucometer 179H 06/18/18 04:43: Glucometer 223H 06/18/18 09:23: Glucometer 202H 06/18/18 09:50: White Blood Count 25.8H, Red Blood Count 3.12L, Hemoglobin 8.6L, Hematocrit 28L , Mean Corpuscular Volume 91, Mean Corpuscular Hemoglobin 28, Mean Corpuscular Hemoglobin Concent 30L, Red Cell Distribution Width 21.3H, Platelet Count 156, Mean Platelet Volume , Sodium Level 136, Potassium Level 5.8H, Chloride Level 98 , Carbon Dioxide Level 25, Anion Gap 13, Blood Urea Nitrogen 50H, Creatinine 2.58#H, Estimat Glomerular Filtration Rate 19, BUN/Creatinine Ratio 19, Glucose Level 202H, Calcium Level 8.1L, Corrected Calcium 8.7, Total Bilirubin 0.9, Aspartate Amino Transf (AST/SGOT) 34, Alanine Aminotransferase (ALT/SGPT) 24, Alkaline Phosphatase 120, Ammonia 22, Total Protein 6.2L, Albumin 3.3 06/18/18 11:02: Glucometer 195H 06/18/18 11:49: Blood Gas Puncture Site RT RAD, Blood Gas Patient Temperature 101.5, Arterial Blood pH 7.24*L, Arterial Blood Partial Pressure CO2 73*H, Arterial Blood Partial Pressure O2 180H, Arterial Blood HCO3 29H, Arterial Blood Total CO2 31.5H, Arterial Blood Oxygen Saturation 99, Arterial Blood Base Excess 3.0H, Sina Test YES-POS, Blood Gas Ventilator Setting NO, Blood Gas Inspired Oxygen 3L 06/18/18 12:35: Lactic Acid Level 0.97 Pending Labs Laboratory Tests 06/15/18 20:32: Glucometer 284 06/16/18 05:45: White Blood Count 24.0, Red Blood Count 3.04, Hemoglobin 8.5, Hematocrit 27, Mean Corpuscular Volume 90, Mean Corpuscular Hemoglobin 28, Mean Corpuscular Hemoglobin Concent 31, Red Cell Distribution Width 21.5, Platelet Count 145, Mean Platelet Volume , Neutrophils (%) (Auto) , Lymphocytes (%) (Auto) , Monocytes (%) (Auto) , Eosinophils (%) (Auto) , Basophils (%) (Auto) , Neutrophils # (Auto) , Lymphocytes # (Auto) , Monocytes # (Auto) , Eosinophils # (Auto) , Basophils # (Auto) , Neutrophils % (Manual) 74, Lymphocytes % (Manual ) 17, Monocytes % (Manual) 9, Eosinophils % (Manual) 0, Basophils % (Manual) 0, Band Neutrophils 0, Polychromasia SLIGHT, Hypochromasia MODERATE, Poikilocytosis MODERATE, Anisocytosis MARKED, Microcytosis SLIGHT, Macrocytosis MARKED, Spherocytes SLIGHT, Target Cells MODERATE, Elliptocytes SLIGHT, Schistocytes SLIGHT, Prothrombin Time 17.6, INR Comment 1.4, Sodium Level 139, Potassium Level 5.1, Chloride Level 100, Carbon Dioxide Level 28, Anion Gap 11, Blood Urea Nitrogen 33, Creatinine 1.37, Estimat Glomerular Filtration Rate 40, BUN/Creatinine Ratio 24, Glucose Level 171, Calcium Level 8.6, Corrected Calcium 9.4, Total Bilirubin 0.9, Aspartate Amino Transf (AST/SGOT) 30, Alanine Aminotransferase (ALT/SGPT) 18, Alkaline Phosphatase 93, Ammonia 41, Total Protein 5.7, Albumin 3.0 06/16/18 10:48: Glucometer 111 06/16/18 16:25: Glucometer 99 06/16/18 19:56: Glucometer 107 06/17/18 05:01: Glucometer 129 06/17/18 10:41: Glucometer 159 06/17/18 15:38: Glucometer 177 06/17/18 20:46: Glucometer 179 06/18/18 04:43: Glucometer 223 06/18/18 09:23: Glucometer 202 06/18/18 09:50: White Blood Count 25.8, Red Blood Count 3.12, Hemoglobin 8.6, Hematocrit 28, Mean Corpuscular Volume 91, Mean Corpuscular Hemoglobin 28, Mean Corpuscular Hemoglobin Concent 30, Red Cell Distribution Width 21.3, Platelet Count 156, Mean Platelet Volume , Sodium Level 136, Potassium Level 5.8, Chloride Level 98 , Carbon Dioxide Level 25, Anion Gap 13, Blood Urea Nitrogen 50, Creatinine 2.58 , Estimat Glomerular Filtration Rate 19, BUN/Creatinine Ratio 19, Glucose Level 202, Calcium Level 8.1, Corrected Calcium 8.7, Total Bilirubin 0.9, Aspartate Amino Transf (AST/SGOT) 34, Alanine Aminotransferase (ALT/SGPT) 24, Alkaline Phosphatase 120, Ammonia 22, Total Protein 6.2, Albumin 3.3 06/18/18 11:02: Glucometer 195 06/18/18 11:49: Blood Gas Puncture Site RT RAD, Blood Gas Patient Temperature 101.5, Arterial Blood pH 7.24, Arterial Blood Partial Pressure CO2 73, Arterial Blood Partial Pressure O2 180, Arterial Blood HCO3 29, Arterial Blood Total CO2 31.5, Arterial Blood Oxygen Saturation 99, Arterial Blood Base Excess 3.0, Sina Test YES-POS, Blood Gas Ventilator Setting NO, Blood Gas Inspired Oxygen 3L 06/18/18 12:35: Lactic Acid Level 0.97 Discharge Home Medications: Active Scripts Active Reported Prednisone 20 Mg Tab PO UD #10 FOR A 5 DAY SUPPLY FILLED 06-04-18 Cyclobenzaprine HCl 10 Mg Tablet 10 Mg PO TID PRN Carisoprodol 350 Mg Tablet 350 Mg PO TID Xifaxan (Rifaximin) 550 Mg Tablet 550 Mg PO BID Loratadine 10 Mg Tablet 10 Mg PO DAILY Lisinopril 10 Mg Tablet 10 Mg PO DAILY Lactulose 10 Gm/15 Ml Solution 20 Gm PO QID Humalog Kwikpen (Insulin Lispro) 100 Unit/1 Ml Insuln.pen 18 Unit SQ TIDAC Lantus Solostar (Insulin Glargine,Hum.rec.anlog) 100 Unit/1 Ml Insuln.pen 50 Unit SQ BID Gabapentin 300 Mg Capsule 600 Mg PO 1200,2100 PRN TAKES 2 (300MG) CAPSULES Gabapentin 300 Mg Capsule 300 Mg PO DAILY PRN Prozac (Fluoxetine HCl) 20 Mg Capsule 20 Mg PO DAILY Promacta (Eltrombopag Olamine) 50 Mg Tablet 100 Mg PO DAILY TAKES 2 (50MG) TABLETS DAILY ON AN EMPTY STOMACH (AT LEAST 1 HOUR BEFORE OR 2 HOURS AFTER FOOD) SEPARATE ANTACIDS BY AT LEAST 4 HOURS Amitriptyline HCl 25 Mg Tablet 25 Mg PO HS Tylenol (Acetaminophen) 325 Mg Tablet 650 Mg PO Q4H PRN MAX OF 4000MG IN 24 HOURS Bumetanide 1 Mg Tablet 1 Mg PO DAILY Instructions to patient/family Please see electronic discharge instructions given to patient. Diagnosis/Problems Diagnosis/Problems (1) Hepatic encephalopathy Status: Resolved Resolution Date/Time: 06/18/18 @ 13:52 (2) Diabetes mellitus Status: Chronic (3) Anemia Status: Chronic (4) Ascites Status: Chronic (5) Jaundice Status: Chronic (6) Leukocytosis Status: Chronic (7) Renal insufficiency Status: Chronic (8) Thrombocytopenia Status: Chronic (9) Fall Status: Resolved Resolution Date/Time: 06/18/18 @ 13:53 (10) History of pneumonia Status: Acute (11) Chronic back pain Status: Chronic (12) End stage liver disease Status: Chronic (13) History of acute respiratory failure Status: Chronic (14) History of ITP Status: Chronic (15) Obesity (BMI 30-39.9) Status: Chronic (16) Increased ammonia level Status: Resolved Resolution Date/Time: 06/18/18 @ 13:54 (17) Liver cirrhosis secondary to [place] Status: Chronic (18) History of hematemesis Status: Chronic (19) Hepatitis C virus infection resolved after antiviral drug therapy Status: Chronic (20) ESSENTIAL (PRIMARY) HYPERTENSION Status: Chronic (21) VENOUS INSUFFICIENCY (CHRONIC) (PERIPHERAL) Status: Chronic (22) DIFFICULTY IN WALKING, NOT ELSEWHERE CLASSIFIED Status: Acute (23) Nocturnal hypoxemia Status: Chronic (24) H/O splenectomy Status: Chronic Clinical Quality Measures DVT/VTE Risk/Contraindication: Risk Factor Score Per Nursin RFS Level Per Nursing on Admit: 4+=Very High NUHA LUCAS DO Jun 18, 2018 12:53
--- NOTE | 2018-06-18 13:28 | Diagnostic Imaging Report ---
INDICATION: Sepsis, intubation. TECHNIQUE: Single-view chest at 01:06 p.m. CORRELATION STUDY: 08/05/2016. FINDINGS: Endotracheal tube has been placed with tip projected over the trachea at the level of the clavicles. Gastric tube has also been placed passing below the left hemidiaphragm. Heart size is enlarged. There is presence of pulmonary vascular congestion and mild perihilar edema. Scattered pulmonary parenchymal densities are present but overall appear somewhat improved. IMPRESSION: 1. Interval intubation and placement of gastric tube. 2. Bilateral perihilar infiltrates and/or edema are present; however, there appears to be somewhat improved aeration to the lung armendariz. Dictated by: Dictated on workstation # [id number]
--- NOTE | 2018-06-20 08:37 | Therapy Team Discharge Summary ---
Therapy Discharge Summary Discharge Recommendations Date of Discharge Therapy D/C Recommendations: Home w/ Family Support Occupational Therapy Decreased Activ Tolerance, Decreased Safety Aware, Decreased UE Strength, Dependent Transfers, Impaired Bed Mobility, Impaired Funct Balance, Impaired Self-Care Skills PT Fpc Goals Steward/Stewardess Bath Goals PT Steward/Stewardess Bath Goals Time Frame: Jul 15, 2018 Transfers (B,C,W/C) (FIM): 6 Roll Left to Right (QC): 6 Sit to Lying (QC): 6 Lying-Sitting on Side/Bed(QC): 6 Sit to Stand (QC): 6 Chair/Jdi-wt-Tzdxy Xfer(QC): 6 Car Transfer (QC): 6 Does the Patient Walk: Yes Gait (FIM): 6 Gait distance (FIM): 3=150 ft Distance: 175' Walk 10 feet (QC): 6 Walk 10ft-Uneven Surface(QC): 6 Walk 50ft with 2 Turns (QC): 6 Walk 150 ft (QC): 6 Gait Level of Assist: 6 Gait Assistive Device: FWW Stairs (FIM): 2 # of Steps: 4 1 Step (curb) (QC): 5 4 Steps (QC): 5 12 Steps (QC): 9 Stairs Level Of Assist: 5 Picking up an Object (QC): 5 OT Fpc Goals Fpc Goals Time Frame: Jul 13, 2018 Eating (FIM): 6 (6) Eating (QC): 6 (6) Oral Hygiene (QC): 6 (6) Grooming(FIM): 6 (6) Bathing(FIM): 6 (3) Bathing Location: L Arm, R Arm, L Upper Leg, R Upper Leg, L Lower Leg ( including foot), R Lower Leg (including foot), Chest, Abdomen, Buttocks, Perineal Area Shower/Bathe Self (QC): 6 (3) Upper Body Dressing(FIM): 6 (5) Upper Body Dressing (QC): 6 (5) Lower Body Dressing(FIM): 6 (4) Lower Body Dressing (QC): 6 (4) On/Off Footwear (QC): 6 (6) Toileting(FIM): 6 (5) Toileting Hygiene (QC): 6 (5) Transfers (B,C,W/C) (FIM): 6 (5) Toilet/Commode Transfer(FIM): 6 (5) Toilet/Commode Transfer (QC): 6 (5) Tub Transfer(FIM): 0 (0) Shower Transfer(FIM): 6 (5) Additional Goals: 1-Demonstrate ADL Tasks, 2-Verbalize Understanding, 3- ImproveStrength/Unique 1=Demonstrate adherence to instructed precautions during ADL tasks. 2=Patient will verbalize/demonstrate understanding of assistive devices/ modifications for ADL. 3=Patient will improve strength/tolerance for activity to enable patient to perform ADL's. Pt transfered to ICU & thus D/C from OT Rehab Unit. CRISTEL FARRELL OT Jun 20, 2018 08:37
--- NOTE | 2018-06-21 15:11 | Therapy Team Discharge Summary ---
Therapy Discharge Summary Discharge Recommendations Date of Discharge Therapy D/C Recommendations: Home w/ Family Support Physical Therapy The patient was admitted to ARU post acute hospital stay with a diagnosis of debility and weakness. Prior to her stay, she was mod indep with all mobility and self care. Upon admission to this unit, she was min assist with gait x 15 ft and transfers. Her functional activity tolerance was limited as was her balance. Treatment focused on functional strength and mobility. At last visit she was still min assist with transfers and walked 25 ft with FWW with min-CGA. Goals were unmet and functional progress was limited due to short stay as pt transferred to ICU due to respiratory distress. Occupational Therapy Decreased Activ Tolerance, Decreased Safety Aware, Decreased UE Strength, Dependent Transfers, Impaired Bed Mobility, Impaired Funct Balance, Impaired Self-Care Skills PT Retirement Goals Retirement Goals PT Retirement Goals Time Frame: Jul 15, 2018 Transfers (B,C,W/C) (FIM): 6 Roll Left to Right (QC): 6 Sit to Lying (QC): 6 Lying-Sitting on Side/Bed(QC): 6 Sit to Stand (QC): 6 Chair/Lah-pt-Wwpnu Xfer(QC): 6 Car Transfer (QC): 6 Does the Patient Walk: Yes Gait (FIM): 6 Gait distance (FIM): 3=150 ft Distance: 175' Walk 10 feet (QC): 6 Walk 10ft-Uneven Surface(QC): 6 Walk 50ft with 2 Turns (QC): 6 Walk 150 ft (QC): 6 Gait Level of Assist: 6 Gait Assistive Device: FWW Stairs (FIM): 2 # of Steps: 4 1 Step (curb) (QC): 5 4 Steps (QC): 5 12 Steps (QC): 9 Stairs Level Of Assist: 5 Picking up an Object (QC): 5 no goals met due to transfer to ICU OT Retirement Goals Retirement Goals Time Frame: Jul 13, 2018 Eating (FIM): 6 (6) Eating (QC): 6 (6) Oral Hygiene (QC): 6 (6) Grooming(FIM): 6 (6) Bathing(FIM): 6 (3) Bathing Location: L Arm, R Arm, L Upper Leg, R Upper Leg, L Lower Leg ( including foot), R Lower Leg (including foot), Chest, Abdomen, Buttocks, Perineal Area Shower/Bathe Self (QC): 6 (3) Upper Body Dressing(FIM): 6 (5) Upper Body Dressing (QC): 6 (5) Lower Body Dressing(FIM): 6 (4) Lower Body Dressing (QC): 6 (4) On/Off Footwear (QC): 6 (6) Toileting(FIM): 6 (5) Toileting Hygiene (QC): 6 (5) Transfers (B,C,W/C) (FIM): 6 (5) Toilet/Commode Transfer(FIM): 6 (5) Toilet/Commode Transfer (QC): 6 (5) Tub Transfer(FIM): 0 (0) Shower Transfer(FIM): 6 (5) Additional Goals: 1-Demonstrate ADL Tasks, 2-Verbalize Understanding, 3- ImproveStrength/Unique 1=Demonstrate adherence to instructed precautions during ADL tasks. 2=Patient will verbalize/demonstrate understanding of assistive devices/ modifications for ADL. 3=Patient will improve strength/tolerance for activity to enable patient to perform ADL's. ARNAUD MUNIZ PT Jun 21, 2018 15:11
[2018-06-24] MEDS ORDERED: METO-395 PO (14:29)
[2018-06-24] MEDS ORDERED: ALPR0.5T7 PO (14:29)
[2018-06-24] MEDS ORDERED: IPRA3AMP31 INH (14:29)
[2018-06-24] MEDS ORDERED: MERO500V3 IV (14:29)
[2018-06-24] MEDS ORDERED: MORP4CAR IVP (14:29)
[2018-06-24] MEDS ORDERED: GBPN600T PO (14:29)
[2018-06-24] MEDS ORDERED: PANT40TA3 PO (14:29)
== END 2018-06-18 12:20 | disposition short-term general hospital (02) | DRG 442 ==
LOC: UNDOLOA 06-18 12:28
PROVIDERS: ADMIT Internal Medicine; ATTEND Internal Medicine
DX: K72.90 Hepatic failure, unspecified without coma (principal); K74.60 Unspecified cirrhosis of liver; K75.81 Nonalcoholic steatohepatitis (NASH); I85.10 Secondary esophageal varices without bleeding; R26.2 Difficulty in walking, not elsewhere classified; R09.02 Hypoxemia; I10 Essential (primary) hypertension; N28.9 Disorder of kidney and ureter, unspecified; E11.40 Type 2 diabetes mellitus with diabetic neuropathy, unspecified; M54.9 Dorsalgia, unspecified; E66.9 Obesity, unspecified; Z68.39 Body mass index [BMI] 39.0-39.9, adult; I87.2 Venous insufficiency (chronic) (peripheral); D69.6 Thrombocytopenia, unspecified; D64.9 Anemia, unspecified; G47.30 Sleep apnea, unspecified; Z99.81 Dependence on supplemental oxygen; K59.09 Other constipation; K21.9 Gastro-esophageal reflux disease without esophagitis; Z79.4 Long term (current) use of insulin; Z87.01 Personal history of pneumonia (recurrent)
CPT/HCPCS: 36415; 36600; 70450; 71045; 80053; 82140; 82805; 82962; 83605; 85007; 85027; 85610; 87040; 87077; 94664

== ENCOUNTER 2018-06-18 12:29 | Inpatient (IN) | payer BC | END 2018-06-24 20:27 | disposition other institution (70) | LOC: 4TH 06-21 17:46 → ICU 12:29 | PROC: 5A1945Z Respiratory Ventilation, 24-96 Consecutive Hours (ICD-10-PCS; principal; 2018-06-18) | PROC: 0BH17EZ Insertion of Endotracheal Airway into Trachea, Via Natural or Artificial Opening (ICD-10-PCS; 2018-06-18) | DX: A41.9 Sepsis, unspecified organism (principal); R65.20 Severe sepsis without septic shock; J18.9 Pneumonia, unspecified organism; J96.02 Acute respiratory failure with hypercapnia; R18.8 Other ascites; Z68.41 Body mass index [BMI] 40.0-44.9, adult; I85.00 Esophageal varices without bleeding; R06.89 Other abnormalities of breathing; K72.90 Hepatic failure, unspecified without coma; K74.60 Unspecified cirrhosis of liver; K75.81 Nonalcoholic steatohepatitis (NASH); I12.9 Hypertensive chronic kidney disease with stage 1 through stage 4 chronic kidney disease, or unspecified chronic kidney disease; N18.9 Chronic kidney disease, unspecified; D63.1 Anemia in chronic kidney disease; I95.9 Hypotension, unspecified; E11.42 Type 2 diabetes mellitus with diabetic polyneuropathy; G47.33 Obstructive sleep apnea (adult) (pediatric); I10 Essential (primary) hypertension; K21.9 Gastro-esophageal reflux disease without esophagitis; K59.09 Other constipation; E87.5 Hyperkalemia; M54.9 Dorsalgia, unspecified; I87.2 Venous insufficiency (chronic) (peripheral); D69.6 Thrombocytopenia, unspecified; E66.9 Obesity, unspecified; Z91.19 Patient's noncompliance with other medical treatment and regimen; Z79.4 Long term (current) use of insulin; Z87.01 Personal history of pneumonia (recurrent); Z86.19 Personal history of other infectious and parasitic diseases; Z90.81 Acquired absence of spleen ==

== ENCOUNTER 2018-07-07 15:12 | Inpatient (IN) | payer BC ==
[~2018-07-07] VITALS: Ht 167.6 cm; Wt 122.2 kg
[~2018-07-07 15:12] MED LIST changes: +ACET325T38 PO; +ALPR0.5T7 PO; +BENZ100C18 PO; +BUME1TAB4 PO; +CARI250T7 PO; +CARI350T27 PO; +CYCL10TA9 PO; +ELTR50TA PO; +FLUO20CA42 PO; +GBPN600T PO; +GUAI100L13 PO; +INSU100I23 SQ; +IPRA3AMP31 INH; +LACT10SO PO; +LISI10TA2 PO; +LORA10TA7 PO; +MERO500V3 IV; +METO-395 PO; +MORP4CAR IVP; +NYST1POW4 TOP; +OXYC-529 PO; +PRD20T PO; +RIFA550T PO; +TIZA2TAB3 PO
[2018-07-07] MEDS ORDERED: POLY17PO6 PO (15:44)
[2018-07-07] MEDS ORDERED: PREG75CA PO (15:44)
[2018-07-07] MEDS ORDERED: METO-333 PO (15:44)
[2018-07-07] MEDS ORDERED: FURO40TA4 PO (15:44)
[2018-07-07] MEDS ORDERED: TIZA4TAB3 PO (15:44)
[2018-07-07] MEDS ORDERED: DULO30CA3 PO (15:44)
[2018-07-07] MEDS ORDERED: MULT-166 PO (15:44)
[2018-07-07] MEDS ORDERED: MAGN400T29 PO (15:44)
[2018-07-07] MEDS ORDERED: NYST60PO TP (15:44)
[2018-07-07] MEDS ORDERED: SPIR25TA PO (15:44)
--- NOTE | 2018-07-07 15:46 | NUR ---
UPDATED THE MED REC TO THE LIST OF MEDICATIONS ORDERED ON THE DISCHARGE MEDICATION LIST FROM . NOTE THE FOLLOWING CHANGES WERE MADE AT THAT TIME: START TAKING: CYMBALTA 30MG DAILY LASIX 40MG BID (AM AND AFTERNOON) MAG OX 400 BID LOPRESSOR 25MG 1/2 BID MIRALAX 17GM TID BEFORE MEALS (TITRATE TO 2-3 BOWEL MOVEMENTS PER DAY) LYRICA 75MG BID SPIRONOLACTONE 25MG DAILY TIZANIDINE 4MG Q8H PRN MTV W/ MINERALS DAILY STOP TAKING: BUMEX 1MG FLUOXETINE 20MG GABAPENTIN 300MG LISINOPRIL 10MG NOTE INSULIN NOTES STATED: LANTUS 40 UNITS HS (PATIENT HAD BEEN TAKING 50 UNITS BID PRIOR TO HOSPITALIZATION, SHE IS NEEDING SIGNIFICANTLY LESS IN THE HOSPITAL OFF STEROIDS AND ON DIABETIC DIET) HUMALOG 8-13 UNITS TID AC (PATIENT WAS TAKING 18 UNITS TID AC PRIOR TO HOSPITALIZATION) I WILL UPDATE THE MED REC BACK TO THE HOME MED LIST PRIOR TO HER HOSPITALIZATIONS AT A LATER TIME TO MAKE FOR PROPER DISCHARGE TO HOME ORDERS. Addendum: 07/11/18 at 1451 by AURE BOB [employer] librarian UPDATED MED REC BACK TO HOME MEDS PRIOR TO HOSPITALIZATIONS USING NOTES FROM PREVIOUS ADMISSION.
[2018-07-07] MEDS ORDERED: NON-FORMULARY MEDICATION 1 EA EA (Polyethylene Glycol 3350 (Miralax) 17 GM) PO SCH (16:00)
[2018-07-07] MEDS ORDERED: NON-FORMULARY MEDICATION 1 EA EA (Insulin Lispro (Humalog Kwikpen) 8 UNIT) SQ SCH (16:00)
[2018-07-07] MEDS ORDERED: LACTULOSE 10 GM/15 ML 30 ML POUR BOTTLE FOR ENEMA PO SCH (17:00)
[2018-07-07 19:29] VITALS: BP 129/77
[2018-07-07 19:31] VITALS: BP 129/77
--- OUTSIDE RECORDS SUMMARY | 2018-07-07 19:41 | XMS REPORT | Clinical Summary ---
Author Author [facility] Organization [facility] Address Unknown Phone Unavailable Care Team Providers Care Barber Instructor Name Role Phone Santiago Torres MD PCP Source Comments Some departments are not documenting in the electronic medical record. If you do not see the information that you expected, contact Release of Information in the Health Information Management department at [phone] for further assistance in locating additional records.[facility] Allergies Comments Active Allergy Reactions Severity Noted Date Pt reports dilaudid caused her to code Hydromorphone UNKNOWN Low 08/19/2016 Metformin UNKNOWN Low 08/16/2016 Metoclopramide UNKNOWN Low 08/16/2016 Medications End Date Status Medication Sig Dispensed Refills Start Date Active amitriptyline (ELAVIL) 25 Take 25 mg by 0 mg tablet mouth at bedtime daily. Active rifAXIMin (XIFAXAN) 550 Take 1 Tab by 60 Tab 11 08/19/201 mg tablet mouth twice 7 daily. Indications: HEPATIC ENCEPHALOPATH Y Active acetaminophen (TYLENOL) Take 650 mg 0 325 mg tablet by mouth daily as needed for Pain. Max of 4,000 mg of acetaminophen in 24 hours. Active eltrombopag (PROMACTA) 50 Take two 60 tablet 3 03/27/201 mg tabletIndications: tablets daily 9 Idiopathic on an empty thrombocytopenic purpura stomach (at (HCC) least 1 hour before or 2 hours after food). Separate antacids by at least 4 hours. Active lactulose 10 gram/15 mL Take 20 g by 0 oral solution mouth four times daily. Active insulin glargine (LANTUS Inject forty 0 SOLOSTAR, BASAGLAR) 100 Units under 9 unit/mL (3 mL) injection the skin at PENIndications: type 2 bedtime diabetes mellitus daily. Patient was taking 50 U BID prior to hospitalizati on. She is needing significantly less in the hospital off steroids and on diabetic diet. Indications: type 2 diabetes mellitus Active nystatin (NYSTOP) 100,000 Apply under 0 unit/g topical powder breast. 9 Active insulin lispro(+) Inject eight 45 mL 0 (HUMALOG KWIKPEN INSULIN) Units to 9 100 unit/mL injection PEN thirteen Units under the skin three times daily with meals. Prior to hospital patient was requiring 18 U TID w meals. Please give 8 units TID w meals. Please give additional 1 unit if BS 201-250 Please give additional 2 unit if BS 251-300 Please give additional 3 units if BS 301-350 Please give additional 4 units if BS 351-400 Please give additional 5 units if BS >400 Active loratadine (CLARITIN) 10 Take 10 mg by 0 mg tablet mouth every morning. Active metoprolol tartrate Take one-half 90 tablet (LOPRESSOR) 25 mg tablet tablet by 9 mouth twice daily. Active pregabalin (LYRICA) 75 mg Take one 180 capsule capsule capsule by 9 mouth twice daily. Active spironolactone Take one 90 tablet (ALDACTONE) 25 mg tablet tablet by 9 mouth daily. Take with food. Active vitamins, multi Take one 0 w/minerals 9 mg iron-400 tablet by 9 mcg tab mouth daily. Active duloxetine DR (CYMBALTA) Take one 90 capsule 0 30 mg capsule capsule by 9 mouth daily. Active furosemide (LASIX) 40 mg Take one 90 tablet tablet tablet by 9 mouth twice daily. Take in morning and afternoon Active magnesium oxide (MAG-OX) Take one 180 tablet 400 mg (241.3 mg tablet by 9 magnesium) tablet mouth twice daily. Active polyethylene glycol 3350 Take one 12 each 0 (MIRALAX) 17 g packet packet by 9 mouth three times daily before meals. Titrate to 2-3 bowel movements per day Active tiZANidine (ZANAFLEX) 4 Take one 0 mg tablet tablet by 9 mouth every 8 hours as needed. 07/07/2018 Discontinued gabapentin (NEURONTIN) Take 1 0 300 mg capsule capsule by mouth in the morning, two capsules in the afternoon and two capsules in the evening as needed. 06/08/2018 Discontinued insulin aspart (NOVOLOG Inject 18 0 FLEXPEN) 100 unit/mL Units under injection PENIndications: the skin Sliding Scale three times daily with meals. Indications: Sliding Scale 06/08/2018 Discontinued oxyCODONE (ROXICODONE, Take 1 Tab by 0 OXY-IR) 5 mg tablet mouth every 4 hours as needed for Pain 07/07/2018 Discontinued lisinopril (PRINIVIL; Take 1 tablet 90 tablet 3 ZESTRIL) 10 mg tablet by mouth 7 daily. 06/15/2018 Discontinued insulin glargine (LANTUS Inject 50 3 Package 3 SOLOSTAR) 100 unit/mL (3 Units under 7 mL) injection PEN the skin at bedtime daily. 06/08/2018 Discontinued potassium chloride SR Take 1 tablet 7 tablet 0 (K-DUR) 20 mEq by mouth 7 tabletIndications: daily. Take Hypokalemia with a meal and a full glass of water. 06/25/2018 Discontinued loratadine 10 mg cap Take 1 0 capsule by mouth daily. 07/07/2018 Discontinued bumetanide (BUMEX) 1 mg Take 1 mg by 0 tablet mouth daily. 06/08/2018 Discontinued ergocalciferol (VITAMIN Take 2 24 capsule 0 D-2) 50,000 unit capsules by 8 capsuleIndications: mouth every 7 Vitamin D deficiency days. 07/07/2018 Discontinued fluoxetine (PROZAC) 20 mg Take 20 mg by 0 capsule mouth daily. 06/15/2018 Discontinued prednisone (DELTASONE) 20 Take 40 mg by 0 mg tablet mouth daily with breakfast. 06/15/2018 Discontinued cyclobenzaprine Take 10 mg by 0 (FLEXERIL) 10 mg tablet mouth three times daily as needed for Muscle Cramps. 06/25/2018 Discontinued Carisoprodol 250 mg tab Take 1 tablet 0 by mouth three times daily. 06/15/2018 Discontinued insulin lispro(+) Inject 18 0 (HUMALOG KWIKPEN INSULIN) units under 100 unit/mL injection PEN the skin three times daily before meals. On sliding scale. 06/15/2018 Discontinued insulin lispro(+) Inject eight 45 mL 0 (HUMALOG KWIKPEN INSULIN) Units under 9 100 unit/mL injection PEN the skin three times daily with meals. Prior to hospital patient was requiring 18 U TID w meals. Anticipate her mealtime will need to increase when she returns home. 06/25/2018 Discontinued benzonatate (TESSALON Take one 20 capsule 0 PERLES) 100 mg capsule capsule to 9 two capsules by mouth every 8 hours as needed for Cough. 06/25/2018 Discontinued guaiFENesin (ROBITUSSIN) Take 10 mL by 0 100 mg/5 mL oral solution mouth every 4 9 hours as needed. 06/25/2018 Discontinued insulin aspart U-100 Inject zero 45 mL 3 (NOVOLOG FLEXPEN) 100 Units to six 9 unit/mL injection PEN Units under the skin before meals and 2200. 06/22/2018 oxyCODONE (ROXICODONE, Take one 30 tablet 0 OXY-IR) 5 mg tablet tablet by 9 mouth every 4 hours as needed for up to 7 days 06/25/2018 Discontinued tiZANidine (ZANAFLEX) 2 Take one 15 tablet 0 mg tablet tablet by 9 mouth every 8 hours as needed. Active Problems Problem Noted Date Severe malnutrition 06/30/2018 Metabolic acidosis 06/24/2018 Acidosis 06/24/2018 Anemia of chronic disease 06/13/2018 End stage liver disease 06/10/2018 MCGOWAN (nonalcoholic steatohepatitis) 06/10/2018 S/P splenectomy 06/10/2018 Morbid obesity 06/08/2018 Encounter for colorectal cancer screening 05/26/2017 Overview: Added automatically from request for surgery [id number] Cirrhosis of liver without ascites 05/26/2017 Overview: Added automatically from request for surgery [id number] Ascites 04/18/2017 Localized edema 04/18/2017 History of hepatitis C 04/18/2017 Overview: tx w/ ribavirin and IFN Idiopathic thrombocytopenic purpura 09/22/2016 Overview: Ms. Richey is here for follow up of ITP. She has history of ITP diagnosed at age of 6 and has splenectomy done at that time. She has not had issues since until recent hospital admission with low platelet count and was found to have high IPF and received dexamethasone 40 mg for 4 days with improvement in platelet count and was discharged. She was readmitted with low platelets and hematemesis and was started on prednisone 1 mg/kg and had improvement in his platelets prior to discharge. She also had bone marrow biopsy which was negative for malignancy. She had elevation in her glucose levels and her insulin was adjusted prior to discharge. IPF is still high at 26.3. Major issue is proximal muscle weakness and fluid retention most likely secondary to underlying MCGOWAN cirrhosis and high dose steroids. L ast Assessment & Plan: Mrs. Richey is a pleasant 51-year-old female who presents today for follow-up of her ITP. She has had multiple lines of therapy including dexamethasone, prednisone, IVIG, a splenectomy at age 6 and completed 4 weeks of rituximab on 10/22/16. Treatment with eltrombopag (Promacta), a thrombopoietic agent, was initiated on 12/28/16 for refractory ITP. Platelet count has remained stable in the 40's-60's without significant decreases. Her platelet goal is 50,000 as we are not aiming to increase her platelet count for the purpose of a surgery or procedure and due to her history of Hepatitis C and MCGOWAN. She has stable, moderate anemia and stable leukocytosis likely secondary to asplenia. Renal function is normal. Will need to monitor hepatic function closely. Her total bilirubin has remains greater 2.0. LFTs have normalized. This may be secondary to treatment with Promacta and will need to be held if her LFTs are greater than or equal to 3 times the upper limit of normal. Will continue on same dose of Promacta for now given her LFTs and with platelet count slowly improving toward her goal. A new agent for persistent/chronic adult ITP called fostamatinib, an Syk inhibitor, has been FDA approved and now available for commercial use. Will consider fostamatinib if she is no longer responding to Promacta. Pertinent Labs 10/21/17: Hgb 9.6 | Plt 63 | WBC 16.8 | ANC 7,220 | Total bilirubin 2.2 | Alk phos 127 Impression: 1. ITP 2. History of splenectomy 3. MCGOWAN 4. Hepatitis C Cirrhosis 5. Lumbar spondylosis and lumbar facet arthropathy Plan: 1. Continue Promacta 100 mg (2 caps) once daily. Take on an empty stomach 1 hour before meals and 2 hours following meals. Should not administer concurrently with antacids, foods high in calcium, or minerals (eg, iron, calcium, aluminum, magnesium, selenium, zinc), therefore administer eltrombopag at least 2 hours before and 4 hours after. 2. Decrease frequency of labs to monthly CBC at local hospital, [facility], and have labs faxed to our office. 3. Continue on Bactrim DS 160/800 mg (1 tab) BID M// for PJP prophylaxis due to liver cirrhosis. 4. Continue follow up with hepatology clinic and routine HCC screening with AFP and abdominal US every 6 months. 5. Follow up with PCP in regard to pain management with lumbar spondylosis and lumbar facet arthropathy. Plt needs to be >/=80K to receive facet injections. Follow-up: RTC in 3 months with labs with SALONI Baron. Patient agreed with plan of care and verbalized understanding. Questions and concerns were addressed to patient's satisfaction. Lesli Baron APRN-EMBOSSING PRESS OPERATOR [employer] Division of Hematology and Oncology Collaborating Physician: Dr. Moran Pager [phone] Hypoglycemia 09/11/2016 Leukocytosis 09/11/2016 Cirrhosis of liver with ascites 08/21/2016 Last Assessment & Plan: Patient has end-stage liver disease secondary to hepatitis C cirrhosis that may or may not be secondary to MCGOWAN. With a meld of 7 she would not be a transplant candidate currently. BMI is 48 which would be an additional nataliya. 1. Continue oral Bumex to 1 mg daily. As prednisone is tapered she will likely have less issues with volume overload and Bumex can be adjusted accordingly.She was instructed to take an additional tablet if there is weight gain of 2.5 lbs in 1 day or 5 lbs in 3 days. 2.Continue Na restricted diet (< 2 g/day). 3.Follow-up with Melida Scherer APRN in hepatolgoy clinic as scheduled on 10/14/16. Type 2 diabetes mellitus with complication 08/21/2016 Clostridium difficile colitis 08/21/2016 UTI (urinary tract infection) 08/16/2016 Thrombocytopenia 08/16/2016 Resolved Problems Problem Noted Date Resolved Date CAP (community acquired pneumonia) 06/08/2018 06/15/2018 Acute hypoxemic respiratory failure 06/08/2018 06/15/2018 Hepatic encephalopathy 06/07/2018 06/15/2018 Pneumonia 06/07/2018 06/15/2018 CAP (community acquired pneumonia) 11/14/2016 11/17/2016 Severe sepsis 11/14/2016 11/17/2016 MARIN (acute kidney injury) 11/14/2016 11/17/2016 Urinary retention 11/14/2016 11/17/2016 Chronic respiratory failure with hypoxia, on home oxygen therapy 06/15/2018 Overview: 2L NC w/ exertion Encounters Care Team Description Date Type Specialty Darlin Moran MD Appointment Request 07/06/2018 Telephone Oncology Andrey Etienne MD Chia, Jessica, MD Thomas, Laura, MD Wilson, Matthew D, MD Ardasenov, Zalina E, MD End stage liver disease (HCC) 06/24/2018 Hospital - Encounter 07/07/2018 06/24/2018 Hospital Radiology Encounter 06/22/2018 Hospital Radiology Encounter 06/22/2018 Hospital Radiology Encounter 06/20/2018 Hospital Radiology Encounter 06/19/2018 Hospital Radiology Encounter 06/18/2018 Hospital Radiology Encounter 06/18/2018 Hospital Radiology Encounter 06/18/2018 Hospital Radiology Encounter Melissa Maier MD 06/18/2018 Hospital Encounter Cassy Jimenez RN End stage liver disease (HCC) (Primary Dx) 06/09/2018 Orders Only Hepatology Leah Chin MD Rafique, Muhammad, MBBS Schmidt, Gillian, MD Olson, Lori, MD Hepatic encephalopathy (HCC) 06/07/2018 Hospital - Encounter 06/15/2018 06/07/2018 Hospital Radiology Encounter 06/07/2018 Hospital Radiology Encounter Leah Koroma, PHARMD 04/19/2018 Clinical Oncology Support Melida Scherer APRN 04/11/2018 Telephone Hepatology Lesli Baron APRN-EMBOSSING PRESS OPERATOR [employer] Immune thrombocytopenia (HCC) (Primary Dx) 04/10/2018 Orders Only Oncology from Last 3 Months Social History Date Tobacco Use Types Packs/Day Years Used Never Smoker Smokeless Tobacco: Never Used Tobacco Cessation: Counseling Given: No Alcohol Use Drinks/Week oz/Week Comments No Sex Assigned at Date Recorded Not on file Industry Job Start Date Occupation Not on file Not on file Not on file Travel End Travel History Travel Start No recent travel history available. Last Filed Vital Signs Time Taken Vital Sign Reading 07/07/2018 2:49 PM CDT Blood Pressure 148/68 07/07/2018 2:49 PM CDT Pulse 72 07/07/2018 2:49 PM CDT Temperature 36.7 C (98 F) 10/21/2017 12:11 PM CDT Respiratory Rate 15 07/07/2018 3:45 PM CDT Oxygen Saturation 92% - Inhaled Oxygen - Concentration 07/07/2018 5:00 AM CDT Weight 122.5 kg (270 lb 1 oz) 07/05/2018 7:45 AM CDT Height 170.2 cm (5' 7.01") 07/05/2018 7:45 AM CDT Body Mass Index 42.29 Plan of Treatment Health Maintenance Due Date Last Done Comments PHYSICAL (COMPREHENSIVE) 10/27/1970 EXAM DILATED EYE EXAM 10/27/1981 DTAP/TDAP VACCINES (1 - 10/27/1981 Tdap) FOOT EXAM 10/27/1981 PNEUMONIA VACCINE (DM) 10/27/1981 CERVICAL CANCER SCREENING 10/27/1993 BREAST CANCER SCREENING 2003 COLORECTAL CANCER 10/27/2013 SCREENING SHINGLES RECOMBINANT 10/27/2013 VACCINE (1 of 2) INFLUENZA VACCINE 10/19/2018 HBA1C 12/09/2018 06/08/2018, 06/03/2017, 09/11/2016, Additional history exists HIV SCREENING Completed 08/17/2016 Procedures Comments Procedure Name Priority Date/Time Associated Diagnosis POC GLUCOSE 07/07/2018 11:47 AM CDT POC GLUCOSE 07/07/2018 8:17 AM CDT POC GLUCOSE 07/07/2018 8:00 AM CDT PHOSPHORUS Routine 07/07/2018 4:10 AM CDT MAGNESIUM Routine 07/07/2018 4:10 AM CDT COMPREHENSIVE METABOLIC Routine 07/07/2018 PANEL 4:10 AM CDT CBC AND DIFF Routine 07/07/2018 4:10 AM CDT PTT (APTT) Routine 07/07/2018 4:10 AM CDT PROTIME INR (PT) Routine 07/07/2018 4:10 AM CDT POC GLUCOSE 07/06/2018 10:08 PM CDT POC GLUCOSE 07/06/2018 10:01 PM CDT BASIC METABOLIC PANEL Routine 07/06/2018 7:50 PM CDT POC GLUCOSE 07/06/2018 5:04 PM CDT POC GLUCOSE 07/06/2018 11:27 AM CDT POC GLUCOSE 07/06/2018 7:49 AM CDT POC GLUCOSE 07/06/2018 7:27 AM CDT PHOSPHORUS Routine 07/06/2018 3:35 AM CDT MAGNESIUM Routine 07/06/2018 3:35 AM CDT COMPREHENSIVE METABOLIC Routine 07/06/2018 PANEL 3:35 AM CDT CBC AND DIFF Routine 07/06/2018 3:35 AM CDT PTT (APTT) Routine 07/06/2018 3:35 AM CDT PROTIME INR (PT) Routine 07/06/2018 3:35 AM CDT POC GLUCOSE 07/05/2018 9:16 PM CDT POC GLUCOSE 07/05/2018 5:24 PM CDT BASIC METABOLIC PANEL Routine 07/05/2018 12:55 PM CDT POC GLUCOSE 07/05/2018 11:20 AM CDT POC GLUCOSE 07/05/2018 7:48 AM CDT CBC AND DIFF Routine 07/05/2018 5:59 AM CDT POC GLUCOSE 07/05/2018 5:51 AM CDT POC GLUCOSE 07/05/2018 5:36 AM CDT PHOSPHORUS Routine 07/05/2018 4:40 AM CDT MAGNESIUM Routine 07/05/2018 4:40 AM CDT COMPREHENSIVE METABOLIC Routine 07/05/2018 PANEL 4:40 AM CDT PTT (APTT) Routine 07/05/2018 4:40 AM CDT PROTIME INR (PT) Routine 07/05/2018 4:40 AM CDT POC GLUCOSE 07/04/2018 10:20 PM CDT POC GLUCOSE 07/04/2018 9:21 PM CDT POC GLUCOSE 07/04/2018 6:38 PM CDT BASIC METABOLIC PANEL Routine 07/04/2018 1:20 PM CDT POC GLUCOSE 07/04/2018 12:08 PM CDT POC GLUCOSE 07/04/2018 7:57 AM CDT PHOSPHORUS Routine 07/04/2018 5:24 AM CDT MAGNESIUM Routine 07/04/2018 5:24 AM CDT COMPREHENSIVE METABOLIC Routine 07/04/2018 PANEL 5:24 AM CDT CBC AND DIFF Routine 07/04/2018 5:24 AM CDT PTT (APTT) Routine 07/04/2018 5:24 AM CDT PROTIME INR (PT) Routine 07/04/2018 5:24 AM CDT POC GLUCOSE 07/03/2018 9:55 PM CDT POC GLUCOSE 07/03/2018 5:33 PM CDT BASIC METABOLIC PANEL Routine 07/03/2018 1:02 PM CDT POC GLUCOSE 07/03/2018 12:09 PM CDT POC GLUCOSE 07/03/2018 8:22 AM CDT TYPE & CROSSMATCH Routine 07/03/2018 4:22 AM CDT FOLATE, SERUM Add on 07/03/2018 4:22 AM CDT VITAMIN B12 Add on 07/03/2018 4:22 AM CDT PHOSPHORUS Routine 07/03/2018 4:22 AM CDT MAGNESIUM Routine 07/03/2018 4:22 AM CDT COMPREHENSIVE METABOLIC Routine 07/03/2018 PANEL 4:22 AM CDT CBC AND DIFF Routine 07/03/2018 4:22 AM CDT PTT (APTT) Routine 07/03/2018 4:22 AM CDT PROTIME INR (PT) Routine 07/03/2018 4:22 AM CDT POC GLUCOSE 07/02/2018 10:24 PM CDT POC GLUCOSE 07/02/2018 5:[address] ABD/PELV W CONTRAST Routine 07/02/2018 2:48 PM CDT BASIC METABOLIC PANEL Routine 07/02/2018 1:20 PM CDT POC GLUCOSE 07/02/2018 11:51 AM CDT POC GLUCOSE 07/02/2018 7:43 AM CDT PHOSPHORUS Routine 07/02/2018 5:05 AM CDT MAGNESIUM Routine 07/02/2018 5:05 AM CDT COMPREHENSIVE METABOLIC Routine 07/02/2018 PANEL 5:05 AM CDT CBC AND DIFF Routine 07/02/2018 5:05 AM CDT HAPTOGLOBIN Routine 07/02/2018 5:05 AM CDT LDH-LACTATE DEHYDROGENASE Routine 07/02/2018 5:05 AM CDT PTT (APTT) Routine 07/02/2018 5:05 AM CDT PROTIME INR (PT) Routine 07/02/2018 5:05 AM CDT POC GLUCOSE 07/01/2018 9:25 PM CDT POC GLUCOSE 07/01/2018 5:14 PM CDT BASIC METABOLIC PANEL Routine 07/01/2018 1:47 PM CDT POC GLUCOSE 07/01/2018 12:31 PM CDT POC GLUCOSE 07/01/2018 7:28 AM CDT HAPTOGLOBIN Routine 07/01/2018 5:06 AM CDT LDH-LACTATE DEHYDROGENASE Routine 07/01/2018 5:06 AM CDT PHOSPHORUS Routine 07/01/2018 5:06 AM CDT CBC AND DIFF Routine 07/01/2018 5:06 AM CDT COMPREHENSIVE METABOLIC Routine 07/01/2018 PANEL 5:06 AM CDT MAGNESIUM Routine 07/01/2018 5:06 AM CDT PTT (APTT) Routine 07/01/2018 5:06 AM CDT PROTIME INR (PT) Routine 07/01/2018 5:06 AM CDT POC GLUCOSE 06/30/2018 9:36 PM CDT CBC Routine 06/30/2018 6:15 PM CDT PROTIME INR (PT) Routine 06/30/2018 6:15 PM CDT BILIRUBIN,TOTAL Routine 06/30/2018 6:15 PM CDT HAPTOGLOBIN Routine 06/30/2018 6:15 PM CDT LDH-LACTATE DEHYDROGENASE Routine 06/30/2018 6:15 PM CDT FIBRINOGEN Routine 06/30/2018 6:15 PM CDT BASIC METABOLIC PANEL Routine 06/30/2018 6:15 PM CDT POC GLUCOSE 06/30/2018 5:57 PM CDT POC GLUCOSE 06/30/2018 12:55 PM CDT POC GLUCOSE 06/30/2018 8:06 AM CDT BNP (B-TYPE NATRIURETIC Add on 06/30/2018 PEPTI) 5:18 AM CDT RETICULOCYTE COUNT Routine 06/30/2018 5:18 AM CDT HAPTOGLOBIN Routine 06/30/2018 5:18 AM CDT LDH-LACTATE DEHYDROGENASE Routine 06/30/2018 5:18 AM CDT PHOSPHORUS Routine 06/30/2018 5:18 AM CDT CBC AND DIFF Routine 06/30/2018 5:18 AM CDT COMPREHENSIVE METABOLIC Routine 06/30/2018 PANEL 5:18 AM CDT MAGNESIUM Routine 06/30/2018 5:18 AM CDT PTT (APTT) Routine 06/30/2018 5:18 AM CDT PROTIME INR (PT) Routine 06/30/2018 5:18 AM CDT POC GLUCOSE 06/29/2018 9:32 PM CDT POC GLUCOSE 06/29/2018 5:58 PM CDT DIRECT ANTIGLOBULIN Routine 06/29/2018 TEST(STEVEN) 12:31 PM CDT BILIRUBIN, DIRECT STAT 06/29/2018 12:31 PM CDT LDH-LACTATE DEHYDROGENASE STAT 06/29/2018 12:31 PM CDT IMMATURE PLATELET STAT 06/29/2018 FRACTION 12:31 PM CDT RETICULOCYTE COUNT STAT 06/29/2018 12:31 PM CDT HAPTOGLOBIN STAT 06/29/2018 12:31 PM CDT FIBRINOGEN STAT 06/29/2018 12:31 PM CDT BASIC METABOLIC PANEL Routine 06/29/2018 12:31 PM CDT MAGNESIUM Routine 06/29/2018 12:31 PM CDT POC GLUCOSE 06/29/2018 11:32 AM CDT POC GLUCOSE 06/29/2018 8:51 AM CDT POC GLUCOSE 06/29/2018 6:26 AM CDT PERIPHERAL SMEAR Add on 06/29/2018 4:25 AM CDT PHOSPHORUS Routine 06/29/2018 4:25 AM CDT CBC AND DIFF Routine 06/29/2018 4:25 AM CDT COMPREHENSIVE METABOLIC Routine 06/29/2018 PANEL 4:25 AM CDT MAGNESIUM Routine 06/29/2018 4:25 AM CDT PTT (APTT) Routine 06/29/2018 4:25 AM CDT PROTIME INR (PT) Routine 06/29/2018 4:25 AM CDT MAGNESIUM STAT 06/28/2018 9:20 PM CDT BASIC METABOLIC PANEL STAT 06/28/2018 9:20 PM CDT POC GLUCOSE 06/28/2018 9:15 PM CDT POC GLUCOSE 06/28/2018 4:52 PM CDT CBC STAT 06/28/2018 10:01 AM CDT BASIC METABOLIC PANEL STAT 06/28/2018 10:01 AM CDT POC GLUCOSE 06/28/2018 9:55 AM CDT CBC Specimen 06/28/2018 in Lab 6:50 AM CDT PHOSPHORUS Routine 06/28/2018 4:20 AM CDT MAGNESIUM Routine 06/28/2018 4:20 AM CDT COMPREHENSIVE METABOLIC Routine 06/28/2018 PANEL 4:20 AM CDT PTT (APTT) Routine 06/28/2018 4:20 AM CDT PROTIME INR (PT) Routine 06/28/2018 4:20 AM CDT CBC AND DIFF Routine 06/28/2018 4:20 AM CDT POC GLUCOSE 06/28/2018 4:18 AM CDT POC GLUCOSE 06/27/2018 8:09 PM CDT POC GLUCOSE 06/27/2018 5:51 PM CDT MAGNESIUM Routine 06/27/2018 3:12 PM CDT BASIC METABOLIC PANEL Routine 06/27/2018 3:12 PM CDT POC GLUCOSE 06/27/2018 11:41 AM CDT POC GLUCOSE 06/27/2018 6:09 AM CDT PHOSPHORUS Routine 06/27/2018 4:07 AM CDT MAGNESIUM Routine 06/27/2018 4:07 AM CDT COMPREHENSIVE METABOLIC Routine 06/27/2018 PANEL 4:07 AM CDT PTT (APTT) Routine 06/27/2018 4:07 AM CDT PROTIME INR (PT) Routine 06/27/2018 4:07 AM CDT CBC AND DIFF Routine 06/27/2018 4:07 AM CDT POC GLUCOSE 06/26/2018 9:20 PM CDT POC GLUCOSE 06/26/2018 5:19 PM CDT BASIC METABOLIC PANEL Routine 06/26/2018 2:30 PM CDT POC GLUCOSE 06/26/2018 12:29 PM CDT CORTISOL 60 MINUTES POST Routine 06/26/2018 10:10 AM CDT CORTISOL 30 MINUTES POST Routine 06/26/2018 9:34 AM CDT 2-D + DOPPLER Routine 06/26/2018 ECHOCARDIOGRAM 8:32 AM CDT CORTISOL BASELINE Routine 06/26/2018 8:23 AM CDT ACTH Routine 06/26/2018 8:23 AM CDT POC GLUCOSE 06/26/2018 6:12 AM CDT PERIPHERAL SMEAR Add on 06/26/2018 3:41 AM CDT PHOSPHORUS Routine 06/26/2018 3:41 AM CDT MAGNESIUM Routine 06/26/2018 3:41 AM CDT COMPREHENSIVE METABOLIC Routine 06/26/2018 PANEL 3:41 AM CDT PTT (APTT) Routine 06/26/2018 3:41 AM CDT PROTIME INR (PT) Routine 06/26/2018 3:41 AM CDT CBC AND DIFF Routine 06/26/2018 3:41 AM CDT POC GLUCOSE 06/25/2018 9:24 PM CDT POC GLUCOSE 06/25/2018 4:52 PM CDT LACTIC ACID (BG - RAPID STAT 06/25/2018 LACTATE) 11:22 AM CDT ETHYLENE GLYCOL STAT 06/25/2018 11:22 AM CDT POC GLUCOSE 06/25/2018 11:20 AM CDT POC GLUCOSE 06/25/2018 6:15 AM CDT BETA HYDROXYBUTYRATE Add on 06/25/2018 (KETONES) 3:57 AM CDT PHOSPHORUS Routine 06/25/2018 3:57 AM CDT MAGNESIUM Routine 06/25/2018 3:57 AM CDT COMPREHENSIVE METABOLIC Routine 06/25/2018 PANEL 3:57 AM CDT PTT (APTT) Routine 06/25/2018 3:57 AM CDT PROTIME INR (PT) Routine 06/25/2018 3:57 AM CDT CBC AND DIFF Routine 06/25/2018 3:57 AM CDT POC GLUCOSE 06/25/2018 12:06 AM CDT CHEST SINGLE VIEW Routine 06/24/2018 11:36 PM CDT BNP (B-TYPE NATRIURETIC STAT 06/24/2018 PEPTI) 11:14 PM CDT STREPTOCOCCUS PNEUMO AG, Specimen 06/24/2018 URINE in Lab 10:03 PM CDT LEGIONELLA ANTIGEN Specimen 06/24/2018 URINE,RAN in Lab 10:03 PM CDT BLOOD GASES, ARTERIAL Routine 06/24/2018 10:03 PM CDT SODIUM-URINE RANDOM Routine 06/24/2018 10:03 PM CDT UREA NITROGEN-URINE Routine 06/24/2018 RANDOM 10:03 PM CDT CREATININE-URINE RANDOM Routine 06/24/2018 10:03 PM CDT URINALYSIS, MICROSCOPIC Routine 06/24/2018 10:03 PM CDT URINALYSIS DIPSTICK Routine 06/24/2018 10:03 PM CDT CULTURE-BLOOD Routine 06/24/2018 W/SENSITIVITY 10:03 PM CDT CULTURE-BLOOD Routine 06/24/2018 W/SENSITIVITY 10:03 PM CDT RVP VIRAL PANEL PCR Routine 06/24/2018 9:56 PM CDT POC GLUCOSE 06/24/2018 9:55 PM CDT TYPE & CROSSMATCH Specimen 06/24/2018 in Lab 9:51 PM CDT PROCALCITONIN Add on 06/24/2018 9:51 PM CDT BLOOD GASES, CENTRAL Routine 06/24/2018 VENOUS 9:51 PM CDT CORTISOL,RANDOM Routine 06/24/2018 9:51 PM CDT PHOSPHORUS STAT 06/24/2018 9:51 PM CDT MAGNESIUM STAT 06/24/2018 9:51 PM CDT LACTIC ACID (BG - RAPID Routine 06/24/2018 LACTATE) 9:51 PM CDT CBC AND DIFF Routine 06/24/2018 9:51 PM CDT COMPREHENSIVE METABOLIC Routine 06/24/2018 PANEL 9:51 PM CDT GENERAL RAD CHEST Routine 06/24/2018 EXTERNAL IMAGING 3:40 AM CDT ECG-SCAN 06/24/2018 12:[address] CHEST EXTERNAL IMAGING Routine 06/22/2018 3:35 PM CDT GENERAL RAD CHEST Routine 06/22/2018 EXTERNAL IMAGING 2:40 PM CDT GENERAL RAD CHEST Routine 06/20/2018 EXTERNAL IMAGING 3:55 AM CDT GENERAL RAD CHEST Routine 06/19/2018 EXTERNAL IMAGING 3:20 AM CDT GENERAL RAD CHEST Routine 06/18/2018 EXTERNAL IMAGING 2:40 PM CDT GENERAL RAD CHEST Routine 06/18/2018 EXTERNAL IMAGING 1:[address] HEAD EXTERNAL IMAGING Routine 06/18/2018 12:20 PM CDT POC GLUCOSE 06/15/2018 8:32 AM CDT COMPREHENSIVE METABOLIC Routine 06/15/2018 PANEL 6:18 AM CDT CBC AND DIFF Routine 06/15/2018 6:18 AM CDT POC GLUCOSE 06/14/2018 9:58 PM CDT POC GLUCOSE 06/14/2018 6:01 PM CDT POC GLUCOSE 06/14/2018 12:30 PM CDT COMPREHENSIVE METABOLIC Routine 06/14/2018 PANEL 9:03 AM CDT CBC AND DIFF Routine 06/14/2018 9:03 AM CDT POC GLUCOSE 06/14/2018 8:41 AM CDT POC GLUCOSE 06/13/2018 9:33 PM CDT POC GLUCOSE 06/13/2018 5:45 PM CDT POC GLUCOSE 06/13/2018 12:25 PM CDT POC GLUCOSE 06/13/2018 8:10 AM CDT COMPREHENSIVE METABOLIC Routine 06/13/2018 PANEL 6:30 AM CDT CBC AND DIFF Routine 06/13/2018 6:30 AM CDT POC GLUCOSE 06/12/2018 9:31 PM CDT POC GLUCOSE 06/12/2018 4:53 PM CDT POC GLUCOSE 06/12/2018 11:55 AM CDT POC GLUCOSE 06/12/2018 8:08 AM CDT COMPREHENSIVE METABOLIC Routine 06/12/2018 PANEL 6:23 AM CDT CBC AND DIFF Routine 06/12/2018 6:23 AM CDT POC GLUCOSE 06/11/2018 9:43 PM CDT POC GLUCOSE 06/11/2018 6:19 PM CDT POC GLUCOSE 06/11/2018 5:11 PM CDT POC GLUCOSE 06/11/2018 11:48 AM CDT POC GLUCOSE 06/11/2018 8:20 AM CDT PTT (APTT) Routine 06/11/2018 5:49 AM CDT COMPREHENSIVE METABOLIC Routine 06/11/2018 PANEL 5:49 AM CDT CBC AND DIFF Routine 06/11/2018 5:49 AM CDT POC GLUCOSE 06/10/2018 9:40 PM CDT POC GLUCOSE 06/10/2018 5:32 PM CDT POC GLUCOSE 06/10/2018 11:20 AM CDT POC GLUCOSE 06/10/2018 7:43 AM CDT CBC AND DIFF 06/10/2018 4:58 AM CDT COMPREHENSIVE METABOLIC 06/10/2018 PANEL 4:58 AM CDT PTT (APTT) Routine 06/10/2018 4:58 AM CDT POC GLUCOSE 06/09/2018 9:49 PM CDT POC GLUCOSE 06/09/2018 6:11 PM CDT POC GLUCOSE 06/09/2018 1:27 PM CDT US ABDOMEN COMPLETE Routine 06/09/2018 12:44 PM CDT POC GLUCOSE 06/09/2018 8:24 AM CDT POC GLUCOSE 06/09/2018 7:21 AM CDT POC GLUCOSE 06/09/2018 6:52 AM CDT COMPREHENSIVE METABOLIC Routine 06/09/2018 PANEL 6:38 AM CDT PTT (APTT) Routine 06/09/2018 6:38 AM CDT CBC AND DIFF Routine 06/09/2018 6:38 AM CDT POC GLUCOSE 06/08/2018 10:12 PM CDT POC GLUCOSE 06/08/2018 6:34 PM CDT GLUCOSE, RANDOM Routine 06/08/2018 4:03 PM CDT POC GLUCOSE 06/08/2018 11:46 AM CDT IR ASPIRATION/DRAIN Routine 06/08/2018 8:22 AM CDT PTT (APTT) Routine 06/08/2018 6:04 AM CDT STREPTOCOCCUS PNEUMO AG, Routine 06/08/2018 URINE 3:20 AM CDT LEGIONELLA ANTIGEN Routine 06/08/2018 URINE,RAN 3:20 AM CDT CULTURE-URINE Routine 06/08/2018 W/SENSITIVITY 3:20 AM CDT RVP VIRAL PANEL PCR Routine 06/08/2018 1:45 AM CDT CULTURE-BLOOD Routine 06/08/2018 W/SENSITIVITY 1:45 AM CDT CHEST SINGLE VIEW Routine 06/08/2018 1:19 AM CDT ALPHA FETO PROTEIN (AFP) Routine 06/08/2018 1:00 AM CDT PROCALCITONIN Routine 06/08/2018 1:00 AM CDT TSH WITH FREE T4 REFLEX Routine 06/08/2018 1:00 AM CDT BNP (B-TYPE NATRIURETIC Routine 06/08/2018 PEPTI) 1:00 AM CDT LIPID PROFILE Routine 06/08/2018 1:00 AM CDT HEMOGLOBIN A1C Routine 06/08/2018 1:00 AM CDT COMPREHENSIVE METABOLIC Routine 06/08/2018 PANEL 1:00 AM CDT PTT (APTT) Routine 06/08/2018 1:00 AM CDT PROTIME INR (PT) Routine 06/08/2018 1:00 AM CDT CBC AND DIFF Routine 06/08/2018 1:00 AM CDT INFLUENZA A/B AG (RAPID Routine 06/08/2018 TEST) 1:00 AM CDT ECG 12-LEAD Routine 06/08/2018 12:[address] ABD/PEL EXTERNAL Routine 06/07/2018 IMAGING 12:05 AM CDT GENERAL RAD CHEST Routine 06/07/2018 EXTERNAL IMAGING 12:00 AM CDT ECG-SCAN 06/07/2018 12:00 AM CDT from Last 3 Months Results * POC GLUCOSE (07/07/2018 11:47 AM CDT) Only the most recent of 90 results within the time period is included. Glucose, POC 144 (H) 70 - 100 MG/DL [facility] Performing Organization Address [facility] Phone Number [facility] LAB [address] [place] [address] * PTT (APTT) (07/07/2018 4:10 AM CDT) Only the most recent of 18 results within the time period is included. APTT 25.0 24.0 - 36.5 SEC MAIN LAB Specimen Blood Performing Organization Address [facility] Phone Number [facility] LAB [address] [place] [address] * PROTIME INR (PT) (07/07/2018 4:10 AM CDT) Only the most recent of 15 results within the time period is included. INR 1.5 (H) 0.8 - 1.2 MAIN LAB Specimen Blood Performing Organization Address [facility] Phone Number [facility] LAB [address] [place] [address] * CBC AND DIFF (07/07/2018 4:10 AM CDT) Only the most recent of 22 results within the time period is included. White Blood 26.6 (H) 4.5 - 11.0 K/UL [facility] Cells RBC 2.85 (L) 4.0 - 5.0 M/UL [facility] Hemoglobin 8.2 (L) 12.0 - 15.0 GM/DL [facility] Hematocrit 25.7 (L) 36 - 45 % MAIN LAB MCV 90.2 80 - 100 FL [facility] MCH 28.7 26 - 34 PG MAIN LAB MCHC 31.8 (L) 32.0 - 36.0 G/DL MAIN LAB RDW 23.7 (H) 11 - 15 % [facility] Platelet Count 30 (L) 150 - 400 K/UL MAIN LAB MPV 11.5 (H) 7 - 11 FL [facility] Segmented 70 41 - 77 % [facility] Neutrophils Lymphocytes 18 (L) 24 - 44 % [facility] Monocytes 7 4 - 12 % [facility] Eosinophil 5 0 - 5 % [facility] ANISO PRESENT MAIN LAB POIK PRESENT MAIN LAB POLY PRESENT MAIN LAB Target PRESENT MAIN LAB Platelet MKD DEC MAIN LAB Estimate Absolute 18.62 (H) 1.8 - 7.0 K/UL MAIN LAB Neutrophil Count Manual Specimen Blood Performing Organization Address City/[facility]/Zipcode Phone Number MAIN LAB [address] [place] [address] * PHOSPHORUS (07/07/2018 4:10 AM CDT) Only the most recent of 14 results within the time period is included. Phosphorus 3.5Comment: NOTE NEW REFERENCE 2.0 - 4.5 MG/DL MAIN LAB RANGES Specimen Blood Performing Organization Address City/[facility]/Zipcode Phone Number MAIN LAB [address] [place] [address] * MAGNESIUM (07/07/2018 4:10 AM CDT) Only the most recent of 17 results within the time period is included. Magnesium 2.3 1.6 - 2.6 mg/dL MAIN LAB Specimen Blood Performing Organization Address [facility] Phone Number MA[facility] [address] [place] [address] * COMPREHENSIVE METABOLIC PANEL (07/07/2018 4:10 AM CDT) Only the most recent of 22 results within the time period is included. Sodium 141 137 - 147 MMOL/L [facility] Potassium 4.4 3.5 - 5.1 MMOL/L [facility] Chloride 98 98 - 110 MMOL/L [facility] Glucose 66 (L) 70 - 100 MG/DL [facility] Blood Urea 29 (H) 7 - 25 MG/DL [facility] Nitrogen Creatinine 1.30 (H) 0.4 - 1.00 MG/DL [facility] Calcium 9.1 8.5 - 10.6 MG/DL [facility] Total Protein 6.1 6.0 - 8.0 G/DL [facility] Total Bilirubin 1.5 (H) 0.3 - 1.2 MG/DL [facility] Albumin 3.2 (L) 3.5 - 5.0 G/DL [facility] Alk Phosphatase 88 25 - 110 U/L [facility] AST (SGOT) 33 7 - 40 U/L [facility] CO2 39 (H) 21 - 30 MMOL/L [facility] ALT (SGPT) 14 7 - 56 U/L [facility] Anion Gap 4 3 - 12 [facility] eGFR Non 43 (L) >60 mL/min [facility] Comment: [place] The eGFR is not validated for use in drug dosing adjustments.Continue to use estimated creatinine clearance per dosing reference text.Please contact the Clinical Pharmacist for questions. eGFR 52 (L) >60 mL/min [facility] [place] Comment: The eGFR is not validated for use in drug dosing adjustments.Continue to use estimated creatinine clearance per dosing reference text.Please contact the Clinical Pharmacist for questions. Specimen Blood Performing Organization Address City/State/Zipcode Phone Number MAIN LAB [address] [place] [address] * BASIC METABOLIC PANEL (07/06/2018 7:50 PM CDT) Only the most recent of 12 results within the time period is included. Sodium 137 137 - 147 MMOL/L [facility] Potassium 4.4 3.5 - 5.1 MMOL/L [facility] Chloride 93 (L) 98 - 110 MMOL/L [facility] CO2 39 (H) 21 - 30 MMOL/L [facility] Anion Gap 5 3 - 12 [facility] Glucose 164 (H) 70 - 100 MG/DL [facility] Blood Urea 31 (H) 7 - 25 MG/DL [facility] Nitrogen Creatinine 1.38 (H) 0.4 - 1.00 MG/DL [facility] Calcium 8.8 8.5 - 10.6 MG/DL [facility] eGFR Non 40 (L) >60 mL/min [facility] Comment: [place] The eGFR is not validated for use in drug dosing adjustments.Continue to use estimated creatinine clearance per dosing reference text.Please contact the Clinical Pharmacist for questions. eGFR 48 (L) >60 mL/min [facility] [place] Comment: The eGFR is not validated for use in drug dosing adjustments.Continue to use estimated creatinine clearance per dosing reference text.Please contact the Clinical Pharmacist for questions. Specimen Blood Performing Organization Address City/[facility]/Zipcode Phone Number [facility] [address] [place] [address] * TYPE & CROSSMATCH (07/03/2018 4:22 AM CDT) Only the most recent of 2 results within the time period is included. Units Ordered 0 [facility]IN [facility] Crossmatch 07/06/2018 [facility] Expires Record Check FOUND [facility] ABO/RH(D) A POS [facility] Antibody Screen NEG [facility] Electronic YES [facility] Crossmatch Specimen Blood Performing Organization Address City/[facility]/Zipcode Phone Number [facility] [address] [place] [id number] * FOLATE, SERUM (07/03/2018 4:22 AM CDT) Serum Folate 9.5Comment: NOTE NEW REFERENCE >3.9 NG/ML [facility] MAIN [facility] RANGES Performing Organization Address City/[facility] Phone Number [facility]IN [facility] [address] [place] [address] * VITAMIN B12 (07/03/2018 4:22 AM CDT) Vitamin B12 1,245 (H) 180 - 914 PG/ML [facility]IN [facility] Performing Organization Address [facility] Phone Number [facility] [address] [place] [address] * CT ABD/PELV W CONTRAST (07/02/2018 2:48 PM CDT) Impressions Performed At 1.Mild abdominopelvic lymphadenopathy, stable to slightly progressed since [facility] RES[facility] August 2016. A periportal lymph node likely correlates with sonographic finding. These are favored to be reactive. Lymphoma considered less likely given similar appearance in August 2016. Follow-up CT in 3-6 months may be obtained to assess for stability. 2.Cirrhosis with sequelae of portal hypertension, including trace ascites and portosystemic varices. 3.No discrete intrahepatic mass. However, evaluation is limited on this single phase exam. 4.Moderate distal colonic diverticulosis. 5.Cardiomegaly with trace bilateral pleural effusions. Finalized by Tanisha Martinez M.D. on 07/03/2018 7:19 AM. Dictated by Tanisha Martinez M.D. on 07/03/2018 7:05 AM. Narrative Performed At CT ABDOMEN AND PELVIS [facility] Clinical Indication:Female, 52 years old. Cirrhosis with peripancreatic nodules seen on ultrasound. Technique:Multiple contiguous axial images were obtained through the abdomen and pelvis following the administration of IV contrast material. Portal venous phase of postcontrast imaging was obtained. Post processing coronal and sagittal reconstruction images were made from the axial images. IV contrast: Omnipaque-350 Bowel contrast:None Comparison: Abdominal ultrasound 06/09/2018, outside CT 06/07/2018. FINDINGS: Lower Thorax: There is mild cardiomegaly with calcification of the mitral valve annulus and mild calcified coronary artery disease. A catheter terminates in the right atrium. There are trace bilateral pleural effusions with patchy bibasilar consolidation. Liver and Biliary system: The liver is cirrhotic in morphology. No definite intrahepatic mass is noted. However, evaluation is limited on this single phase exam. The portal veins are patent. The gallbladder is surgically absent. There is no biliary ductal dilatation. There is mild periportal lymphadenopathy, slightly progressed since August 2016. There are portosystemic varices, including a recanalized umbilical vein. Spleen: The spleen is absent. Adrenal Glands and Kidneys: The adrenal glands are unremarkable. There is no hydronephrosis. Pancreas and Retroperitoneum: The pancreas is diffusely atrophic. There has been slight progression of mild gastrohepatic lymphadenopathy. There is mild retroperitoneal lymphadenopathy, not significantly changed since August 2016. Aorta and Major Vessels: There is mild calcific atherosclerosis of the normal caliber abdominal aorta. Bowel, Mesentery and Peritoneal space: The small and large bowel loops are normal in caliber. There is mild wall thickening of the right hemicolon. There is moderate distal colonic diverticulosis. There is trace ascites. There is a subcentimeter nodule in the right lower quadrant, which may represent a prominent mesenteric lymph node (series 3 image 51). Pelvis: The bladder is decompressed by Nichole catheter. The uterus is surgically absent. There is no significant pelvic lymphadenopathy. Abdominal wall and Osseous Structures: There is mild subcutaneous edema. There are healed bilateral rib fractures. There is a moderate T12 compression fracture with retropulsion into the spinal canal, unchanged since prior CT but new since 2017. This results in moderate spinal canal stenosis at this level. There is thoracolumbar spondylosis. Procedure Note Interface, Radiant Results - 07/03/2018 7:[address] ABDOMEN AND PELVIS Clinical Indication: Female, 52 years old. Cirrhosis with peripancreatic nodules seen on ultrasound. Technique: Multiple contiguous axial images were obtained through the abdomen and pelvis following the administration of IV contrast material. Portal venous phase of postcontrast imaging was obtained. Post processing coronal and sagittal reconstruction images were made from the axial images. IV contrast: Omnipaque-350 Bowel contrast: None Comparison: Abdominal ultrasound 06/09/2018, outside CT 06/07/2018. FINDINGS: Lower Thorax: There is mild cardiomegaly with calcification of the mitral valve annulus and mild calcified coronary artery disease. A catheter terminates in the right atrium. There are trace bilateral pleural effusions with patchy bibasilar consolidation. Liver and Biliary system: The liver is cirrhotic in morphology. No definite intrahepatic mass is noted. However, evaluation is limited on this single phase exam. The portal veins are patent. The gallbladder is surgically absent. There is no biliary ductal dilatation. There is mild periportal lymphadenopathy, slightly progressed since August 2016. There are portosystemic varices, including a recanalized umbilical vein. Spleen: The spleen is absent. Adrenal Glands and Kidneys: The adrenal glands are unremarkable. There is no hydronephrosis. Pancreas and Retroperitoneum: The pancreas is diffusely atrophic. There has been slight progression of mild gastrohepatic lymphadenopathy. There is mild retroperitoneal lymphadenopathy, not significantly changed since August 2016. Aorta and Major Vessels: There is mild calcific atherosclerosis of the normal caliber abdominal aorta. Bowel, Mesentery and Peritoneal space: The small and large bowel loops are normal in caliber. There is mild wall thickening of the right hemicolon. There is moderate distal colonic diverticulosis. There is trace ascites. There is a subcentimeter nodule in the right lower quadrant, which may represent a prominent mesenteric lymph node (series 3 image 51). Pelvis: The bladder is decompressed by Nichole catheter. The uterus is surgically absent. There is no significant pelvic lymphadenopathy. Abdominal wall and Osseous Structures: There is mild subcutaneous edema. There are healed bilateral rib fractures. There is a moderate T12 compression fracture with retropulsion into the spinal canal, unchanged since prior CT but new since 2017. This results in moderate spinal canal stenosis at this level. There is thoracolumbar spondylosis. IMPRESSION 1. Mild abdominopelvic lymphadenopathy, stable to slightly progressed since August 2016. A periportal lymph node likely correlates with sonographic finding. These are favored to be reactive. Lymphoma considered less likely given similar appearance in August 2016. Follow-up CT in 3-6 months may be obtained to assess for stability. 2. Cirrhosis with sequelae of portal hypertension, including trace ascites and portosystemic varices. 3. No discrete intrahepatic mass. However, evaluation is limited on this single phase exam. 4. Moderate distal colonic diverticulosis. 5. Cardiomegaly with trace bilateral pleural effusions. Finalized by Tanisha Martinez M.D. on 07/03/2018 7:19 AM. Dictated by Tanisha Martinez M.D. on 07/03/2018 7:05 AM. Performing Organization Address [facility] Phone Number RAD RESULTS * LDH-LACTATE DEHYDROGENASE (07/02/2018 5:05 AM CDT) Only the most recent of 5 results within the time period is included. Lactate 396 (H) 100 - 210 U/L [facility] Dehydrogenase Specimen Blood Performing Organization Address [facility] Phone Number [facility]IN [facility] [address] [place] [address] * HAPTOGLOBIN (07/02/2018 5:05 AM CDT) Only the most recent of 5 results within the time period is included. Haptoglobin 49 16 - 200 MG/DL [facility] Specimen Blood Performing Organization Address [facility] Phone Number [facility]IN [facility] [address] [place] [address] * FIBRINOGEN (06/30/2018 6:15 PM CDT) Only the most recent of 2 results within the time period is included. Fibrinogen 251 200 - 400 MG/DL [facility] Specimen Blood Performing Organization Address [facility] Phone Number [facility] [address] [place] [address] * CBC (06/30/2018 6:15 PM CDT) Only the most recent of 3 results within the time period is included. White Blood 17.2 (H) 4.5 - 11.0 K/UL [facility] Cells RBC 2.62 (L) 4.0 - 5.0 M/UL [facility] Hemoglobin 7.5 (L) 12.0 - 15.0 GM/DL [facility] Hematocrit 23.3 (L) 36 - 45 % [facility] MCV 88.8 80 - 100 FL [facility] MCH 28.7 26 - 34 PG [facility] MCHC 32.3 32.0 - 36.0 G/DL [facility] RDW 23.0 (H) 11 - 15 % [facility] Platelet Count 31 (L) 150 - 400 K/UL [facility] MPV 12.4 (H) 7 - 11 FL [facility] Specimen Blood Performing Organization Address [facility] Phone Number [facility] [address] [place] [address] * BILIRUBIN,TOTAL (06/30/2018 6:15 PM CDT) Total Bilirubin 1.3 (H) 0.3 - 1.2 MG/DL [facility] Specimen Blood Performing Organization Address [facility] Phone Number [facility] [address] [place] [address] * RETICULOCYTE COUNT (06/30/2018 5:18 AM CDT) Only the most recent of 2 results within the time period is included. Pathologist [facility] Retic, 3.4 (H) 0.5 - 2.0 % [facility] Uncorrected Retic, 1.9 % [facility] Corrected Retic, Absolute 86.2 30 - 94 K/UL [facility] Specimen Blood Performing Organization Address [facility] Phone Number [facility] [address] [place] [address] * BNP (B-TYPE NATRIURETIC PEPTI) (06/30/2018 5:18 AM CDT) Only the most recent of 3 results within the time period is included. B Type 364.0 (H) 0 - 100 PG/ML [facility] Natriuretic Peptide Performing Organization Address [facility] Phone Number [facility] [address] [place] [address] * IMMATURE PLATELET FRACTION (06/29/2018 12:31 PM CDT) Pathologist [facility] Immature 40.0 (H)Comment: TEST 1.1 - 7.1 % [facility] Platelet [facility] Specimen Blood Performing Organization Address City/[facility]/Zipcode Phone Number [facility] [address] [place] [address] * DIRECT ANTIGLOBULIN TEST(STEVEN) (06/29/2018 12:31 PM CDT) STEVEN, Broad NEG [facility] [employer] [place] Specimen Blood Performing Organization Address [facility] Phone Number MAIN LAB [address] [place] [address] * BILIRUBIN, DIRECT (06/29/2018 12:31 PM CDT) Bilirubin, 0.3 <0.4 MG/DL [facility] Direct Specimen Blood Performing Organization Address [facility] Phone Number MAIN LAB [address] [place] [address] * PERIPHERAL SMEAR (06/29/2018 4:25 AM CDT) Only the most recent of 2 results within the time period is included. Peripheral MACROCYTIC ANEMIA WITH [facility] Smear ANISOPOIKILOCYTOSIS. TARGET RBCS AND OVALOCYTES GRANULOCYTOSIS WITHOUT LEFT SHIFT. MARKED THROMBOCYTOPENIA WITH NORMAL PLATELET MORPHOLOGY. Pathologist INTERPRETED BY MARCELLA CAMPO M.D. [facility] Signature By the PATH SIGNATURE ABOVE, I attest that I have personally formulated the final interpretation expressed in this report and that the above diagnosis is based upon my examination of the slides and/or other material indicated in this report. Performing Organization Address City/[facility]/Zipcode Phone Number MAIN LAB [address] [place] [address] * CORTISOL 60 MINUTES POST (06/26/2018 10:10 AM CDT) Cortisol 60 Min 9.9 ug/dL [facility] Specimen Blood Performing Organization Address City/[facility]/Zipcode Phone Number MAIN LAB [address] [place] [address] * CORTISOL 30 MINUTES POST (06/26/2018 9:34 AM CDT) Cortisol 30 Min 7.2 ug/dL [facility] Specimen Blood Performing Organization Address City/[facility]/Zipcode Phone Number MAIN LAB [address] [place] [address] * 2-D + DOPPLER ECHOCARDIOGRAM (06/26/2018 8:32 AM CDT) IVS 1.10 0.6 - 0.9 cm OTHER OUTSIDE LAB LVIDD 4.55 3.8 - 5.2 cm OTHER OUTSIDE LAB LVIDS 3.04 2.2 - 3.5 cm OTHER OUTSIDE LAB PW 1.02 0.6 - 0.9 cm OTHER OUTSIDE LAB TDI e' 0.14 m/s OTHER OUTSIDE LAB Right 3.41 1.9 - 3.5 cm OTHER OUTSIDE Ventricular Mid LAB Diameter LA size 5.24 2.7 - 3.8 cm OTHER OUTSIDE LAB LA volume 112.17 22 - 52 mL OTHER OUTSIDE LAB Right Atrial 24.46 <18 cm2 OTHER OUTSIDE Area LAB Right Atrial 6.33 2.2 - 2.8 cm OTHER OUTSIDE Major Dimension LAB and a peak 22.03 mmHg OTHER OUTSIDE gradient of LAB AV peak 2.35 m/s OTHER OUTSIDE velocity LAB MV Peak A Paresh 1.45 m/s OTHER OUTSIDE LAB MV Peak E Paresh 1.68 m/s OTHER OUTSIDE PW LAB Right Heart 2.94 >1.7 cm OTHER OUTSIDE Systolic [facility] LAB TAPSE Right 3.97 2.5 - 4.1 cm OTHER OUTSIDE Ventricular LAB Basal Diameter Sinus 3.08 2.4 - 3.6 cm OTHER OUTSIDE LAB BSA 2.64 m2 OTHER OUTSIDE LAB Referring Santiago Torres OTHER OUTSIDE Provider LAB FS 33.19 28 - 44 % OTHER OUTSIDE LAB EF 56.42 % OTHER OUTSIDE LAB LV mass 169.12 66 - 150 g OTHER OUTSIDE LAB RWT 0.45 <=0.42 OTHER OUTSIDE LAB E/A ratio 1.16 OTHER OUTSIDE LAB E/E' ratio 12.00 OTHER OUTSIDE LAB Left Atrium 42.49 16 - 34 OTHER OUTSIDE Index LAB Cardiology Siemens [id number] OTHER OUTSIDE Ultrasound LAB Machine Left Ventricle 64.06 44 - 88 g/m2 OTHER OUTSIDE Mass Index LAB CV ECHO PV Floor RN OTHER OUTSIDE CISO LAB MV mean 7 mmHg OTHER OUTSIDE gradient LAB MV valve area 2.16 cm2 OTHER OUTSIDE P1/2 LAB MV peak 19 mmHg OTHER OUTSIDE gradient LAB TV rest 62 mmHg OTHER OUTSIDE pulmonary LAB artery pressure Right Heart 0.160 m/s OTHER OUTSIDE Systolic TDI S' LAB MV VTI 66 cm OTHER OUTSIDE LAB MV stenosis 102 ms OTHER OUTSIDE pressure 1/2 LAB time ECHO EF 70 % OTHER OUTSIDE LAB Narrative Performed At OTHER OUTSIDE LAB Rest Echo: 1. Hyperdynamic left ventricular systolic function. EF~ 70% 2. Right ventricular size and systolic function are normal 3. Mild to moderate stenosis with mean gr 7 mm Hg (@ HR 67 bpm) and MVA of 2.1 cm2 by pressure merrill;f time..Trace regurgitation. 4. No significant pericardial effusion 5. Moderate pulmonary hypertension with estimated peak systolic PA pressure of 62 mmHg Compared to previous study on 08/30/2016, there is increased calcific thickening of mitral leaflets and mild to moderate mitral stenosis. PA systolic pressure could not be assessed on prior study. Increased LVOT gradients (14 VS 11 mm Hg) on both studies are likely due to hyperdynamic LV systolic function. Performing Organization Address City/[facility] Phone Number OTHER OUTSIDE LAB * CORTISOL BASELINE (06/26/2018 8:23 AM CDT) Cortisol 1.1 ug/dL MAIN LAB Baseline Specimen Blood Performing Organization Address [facility] Phone Number MAIN LAB [address] [place] [address] * ACTH (06/26/2018 8:23 AM CDT) Adrenocorticotr <5.0 REFERENCE LAB opic Hormone Unit: pg/mL REFERENCE VALUE - 7.2-63 (a.m. collection) [facility], [address], [place] [address] (L) Specimen Blood Performing Organization Address [facility] Phone Number REFERENCE LAB REFERENCE LAB See results for address. * LACTIC ACID (BG - RAPID LACTATE) (06/25/2018 11:22 AM CDT) Only the most recent of 2 results within the time period is included. Lactic Acid,BG 1.4 0.5 - 2.0 MMOL/L MAIN LAB Specimen Blood Performing Organization Address [facility] Phone Number MAIN LAB [address] [place] [address] * ETHYLENE GLYCOL (06/25/2018 11:22 AM CDT) Ethylene Glycol <5 MG/DL REFERENCE LAB Comment: TEST PERFORMED AT Report Available in Epic Specimen Blood - Blood Narrative Performed At Performing Organization Address City/State/Zipcode Phone Number REFERENCE LAB REFERENCE LAB See results for address. * BETA HYDROXYBUTYRATE (KETONES) (06/25/2018 3:57 AM CDT) Beta 0.1 <0.3 MMOL/L [facility] MAIN LAB Hydroxybutyrate Comment: Beta hydroxybutyrate (BOHB) is the most abundant ketone (78%), followed by acetoacetate (20%) and acetone (2%).Measurement BOHB is recommended to assess ketones in DKA. Expected BOHB Results for DKA: Initial presentation high/increasing During treatment decreasing Resolved decreasing/normal Performing Organization Address City/State/Zipcode Phone Number [facility] MAIN LAB [address] [place] [address] * CHEST SINGLE VIEW (06/24/2018 11:36 PM CDT) Only the most recent of 2 results within the time period is included. Impressions Performed At 1.Findings consistent with CHF/volume overload including cardiomegaly, [facility] RAD RESULTS pulmonary vascular congestion and small to moderate left pleural effusion. 2.Mixed bilateral pulmonary opacities may represent edema and/or pneumonia. By my electronic signature, I attest that I have personally reviewed the images for this examination and formulated the interpretations and opinions expressed in this report Finalized by Phil Mccollum M.D. on 06/25/2018 10:04 AM. Dictated by Archana Shin M.D. on 06/25/2018 10:01 AM. Narrative Performed At CHEST SINGLE VIEW [facility] RAD RESULTS HISTORY: 52 year old Female with hypoxia. TECHNIQUE: Portable frontal view of the chest was obtained. COMPARISON:Chest radiograph June 08, 2017 FINDINGS: Exam is limited secondary to significant patient rotation to the left. Placement of a left PICC with tip overlying the approximate location of the low SVC. Cardiac silhouette is enlarged. Indistinct pulmonary vasculature. Small to moderate left pleural effusion. No discrete pneumothorax. Mixed bilateral pulmonary opacities Procedure Note Interface, Radiant Results - 06/25/2018 10:07 AM CDT CHEST SINGLE VIEW HISTORY: 52 year old Female with hypoxia. TECHNIQUE: Portable frontal view of the chest was obtained. COMPARISON: Chest radiograph June 08, 2017 FINDINGS: Exam is limited secondary to significant patient rotation to the left. Placement of a left PICC with tip overlying the approximate location of the low SVC. Cardiac silhouette is enlarged. Indistinct pulmonary vasculature. Small to moderate left pleural effusion. No discrete pneumothorax. Mixed bilateral pulmonary opacities IMPRESSION 1. Findings consistent with CHF/volume overload including cardiomegaly, pulmonary vascular congestion and small to moderate left pleural effusion. 2. Mixed bilateral pulmonary opacities may represent edema and/or pneumonia. By my electronic signature, I attest that I have personally reviewed the images for this examination and formulated the interpretations and opinions expressed in this report Finalized by Phil Mccollum M.D. on 06/25/2018 10:04 AM. Dictated by Archana Shin M.D. on 06/25/2018 10:01 AM. Performing Organization Address City/[facility]/Zipcode Phone Number RAD RESULTS * STREPTOCOCCUS PNEUMO AG, URINE (06/24/2018 10:03 PM CDT) Only the most recent of 2 results within the time period is included. Battery Name STREP PNEUMO AG, UR [facility] MAIN LAB Specimen URINE [facility] MAIN LAB Description Special NONE [facility] MAIN LAB Requests Antigen NEGATIVE [facility] MAIN LAB Report Status FINAL MAIN LAB 06/24/2018 Specimen Urine Performing Organization Address [facility]ode Phone Number [facility]U MAIN LAB [address] [place] [id number] * URINALYSIS, MICROSCOPIC (06/24/2018 10:03 PM CDT) Pathologist [facility] WBCs,UA 2-10 0 - 2 /HPF [facility] MAIN LAB RBCs,UA 10-20 0 - 3 /HPF [facility] MAIN LAB Bacteria,UA FEW (A) NEG-NEG [facility] MAIN LAB Budding Yeast MODERATE [facility] MAIN LAB Specimen Urine - Urine Performing Organization Address City/[facility]/Zipcode Phone Number [facility] MAIN LAB [address] [place] [address] * URINALYSIS DIPSTICK (06/24/2018 10:03 PM CDT) Color,UA YELLOW [facility] MAIN LAB Turbidity,UA 1+ (A) CLEAR-CLEAR [facility] MAIN LAB Specific 1.013 1.003 - 1.035 [facility] MAIN LAB Ponderosa-Urine pH,UA 5.0 5.0 - 8.0 [facility] MAIN LAB Protein,UA NEG NEG-NEG MAIN LAB Glucose,UA NEG NEG-NEG [facility] MAIN LAB Ketones,UA NEG NEG-NEG [facility] MAIN LAB Bilirubin,UA NEG NEG-NEG [facility] MAIN LAB Blood,UA 2+ (A) NEG-NEG [facility] MAIN LAB Urobilinogen,UA NORMAL NORM-NORMAL [facility] MAIN LAB Nitrite,UA NEG NEG-NEG MAIN LAB Leukocytes,UA 2+ (A) NEG-NEG [facility] MAIN LAB Urine Ascorbic NEG NEG-NEG MAIN LAB Acid, UA Specimen Urine - Urine Performing Organization Address [facility] Phone Number [facility] MAIN LAB [address] [place] [address] * UREA NITROGEN-URINE RANDOM (06/24/2018 10:03 PM CDT) Urea Nitrogen 558 MG/DL MAIN LAB Specimen Urine - Urine Performing Organization Address [facility]otn Phone Number MAIN LAB [address] [place] [address] * SODIUM-URINE RANDOM (06/24/2018 10:03 PM CDT) Sodium, Random 14 MMOL/L MAIN LAB Specimen Urine - Urine Performing Organization Address [facility] Phone Number MAIN LAB [address] [place] [address] * LEGIONELLA ANTIGEN URINE,RAN (06/24/2018 10:03 PM CDT) Only the most recent of 2 results within the time period is included. Battery Name LEGIONELLA URINE ANTIGEN [facility] MAIN LAB Specimen URINE MAIN LAB Description Special NONE [facility] MAIN LAB Requests Antigen NEGATIVE MAIN LAB Report Status FINAL MAIN LAB 06/24/2018 Specimen Urine - Urine Performing Organization Address [facility] Phone Number MAIN LAB [address] [place] [address] * CREATININE-URINE RANDOM (06/24/2018 10:03 PM CDT) Creatinine, 108 MG/DL MAIN LAB Random Specimen Urine - Urine Performing Organization Address [facility] Phone Number MAIN LAB [address] [place] [address] * CULTURE-BLOOD W/SENSITIVITY (06/24/2018 10:03 PM CDT) Only the most recent of 3 results within the time period is included. Battery Name BLOOD CULTURE [facility] MAIN LAB Specimen BLOOD [facility] MAIN LAB Description LEFT PICC LINE Special NONE [facility] MAIN LAB Requests Culture NO GROWTH 5 DAYS [facility] MAIN LAB Report Status FINAL [facility] MAIN LAB 07/01/2018 Specimen Blood Performing Organization Address City/[facility]/Zipcode Phone Number K[facility] MAIN LAB [address] [place] [address] * BLOOD GASES, ARTERIAL (06/24/2018 10:03 PM CDT) [facility] pH-Arterial 7.34 (L) 7.35 - 7.45 [facility] MAIN LAB pCO2-Arterial 38 35 - 45 MMHG [facility] MAIN LAB pO2-Arterial 76 (L) 80 - 100 MMHG [facility] MAIN LAB Base 5.1 MMOL/L MAIN LAB Deficit-Arteria l O2 Sat-Arterial 95.9 95 - 99 % [facility] MAIN LAB Bicarbonate-ART 20.2 (L) 21 - 28 MMOL/L [facility] MAIN LAB -Mookie Specimen Blood, arterial - Blood Performing Organization Address [facility]ode Phone Number MAIN LAB [address] [place] [address] * RVP VIRAL PANEL PCR (06/24/2018 9:56 PM CDT) Only the most recent of 2 results within the time period is included. [facility] Specimen Source NASOPHARYNGEAL SWAB MAIN LAB This assay uses analyte specific reagents and has not been cleared by the [place] Food and Drug Administration.The performance characteristics were determined by the [facility]. Adenovirus NOT DETECTED [facility] MAIN LAB Coronavirus NOT DETECTED MAIN LAB 229E Coronavirus NOT DETECTED MAIN LAB HKU1 Coronavirus NOT DETECTED MAIN LAB NL63 Coronavirus NOT DETECTED MAIN LAB OC43 Human NOT DETECTED KU MAIN LAB Metapneumovirus Human NOT DETECTED KU MAIN LAB Rhinovirus/ENTE ROVIRUS Influenza A NOT DETECTED KU MAIN LAB H1N1 2009 Influenza A H1 NOT DETECTED KU MAIN LAB Influenza A H3 NOT DETECTED MAIN LAB Influenza B NOT DETECTED KU MAIN LAB Parainfluenza 1 NOT DETECTED KU MAIN LAB Parainfluenza 2 NOT DETECTED KU MAIN LAB Parainfluenza 3 NOT DETECTED KU MAIN LAB Parainfluenza 4 NOT DETECTED KU MAIN LAB RSV NOT DETECTED KU MAIN LAB Bordetella NOT DETECTED MAIN LAB Pertussis Chlamydophila NOT DETECTED MAIN LAB Pneumoniae Mycoplasma NOT DETECTED [facility] MAIN LAB Pneumoniae Specimen Nasopharyngeal Swab Performing Organization Address [facility] Phone Number MAIN LAB [address] [place] [address] * BLOOD GASES, CENTRAL VENOUS (06/24/2018 9:51 PM CDT) PH-Central 7.28 (L) 7.30 - 7.40 KU MAIN LAB Venous PCO2-Central 47 >40 MMHG KU MAIN LAB Venous PO2-Central 39 (L) 40 - 50 MMHG KU MAIN LAB Venous Base 4.9 MMOL/L [facility] MAIN LAB Deficit-Central Venous O2 Sat 63.0 (L) 65 - 75 % MAIN LAB (Calc)-Central Venous Bicarb-Central 19.9 MMOL/L MAIN LAB Venous Performing Organization Address [facility] Phone Number MAIN LAB [address] [place] [address] * PROCALCITONIN (06/24/2018 9:51 PM CDT) Only the most recent of 2 results within the time period is included. Procalcitonin 0.17 (H) <0.10 NG/ML MAIN LAB Performing Organization Address [facility] Phone Number MAIN LAB [address] [place] [address] * CORTISOL,RANDOM (06/24/2018 9:51 PM CDT) Cortisol, 2.4 (L) 5.0 - 20.0 MCG/DL MAIN LAB Random Specimen Blood Performing Organization Address [facility] Phone Number [facility] LAB [address] [place] [address] * GENERAL RAD CHEST EXTERNAL IMAGING (06/24/2018 3:40 AM CDT) Only the most recent of 7 results within the time period is included. Narrative Performed At This order has been auto finalized and does not contain a result. * ECG-SCAN (06/24/2018 12:00 AM CDT) Narrative Performed At Ordered by an unspecified provider. * CT CHEST EXTERNAL IMAGING (06/22/2018 3:35 PM CDT) Narrative Performed At This order has been auto finalized and does not contain a result. * CT HEAD EXTERNAL IMAGING (06/18/2018 12:20 PM CDT) Narrative Performed At This order has been auto finalized and does not contain a result. * US ABDOMEN COMPLETE (06/09/2018 12:44 PM CDT) Impressions Performed At Enlarging nodule interposed between the body the pancreas and the left lobe of [facility] RAD RESULTS liver most compatible with indeterminate lymph node Mildly enlarged cirrhotic liver with no discrete hepatic mass identified. Ultrasound LI-RADS US-1, visualization score b Absent spleen and gallbladder. If clinically indicated, a dynamic CT scan of the abdomen and pelvis is recommended for further evaluation of the enlarging peripancreatic lymph node Ultrasound LI-RADS (v2017) assessment categories US-1, negative: No US evidence of HCC US-2, subthreshold: Observation detected that may warrant short-term US surveillance US-3, positive: Observation detected that may warrant contrast-enhanced imaging US visualization score A: No or minimal limitations B: Moderate limitations C: Severe limitations [email or web address].acr.org/Clinical-Resources/Ephnsmdya-bim-Nmfg-Systems/LI-RADS Finalized by Gustavo Grace M.D. on 06/09/2018 2:22 PM. Dictated by Gustavo Grace M.D. on 06/09/2018 12:58 PM. Narrative Performed At Abdominal sonogram [facility] RAD RESULTS Clinical indications: Cirrhosis, evaluate for ascites or mass. TECHNIQUE: Ultrasound images were performed over the abdomen. FINDINGS: Comparison is made with an abdominal sonogram of 06/03/[address] scan of the abdomen and pelvis of 06/07/2018. Is mild to moderate diffuse heterogeneity of the liver which is mildly enlarged measuring 18.5 cm compared with 18.6 cm one year earlier. No discrete hepatic masses are identified. Visualization of the liver immediately inferior to the right hemidiaphragm is limited. The gallbladder is absent. There is no evidence of bile duct dilatation. The common bile duct measures 0.5 cm. There is an oval-shaped soft tissue nodule interposed between the body of the pancreas and the left lobe of the liver nodule has increased in size measuring 3.9 x 1.4 x 2.7 cm compared with 2.8 x 1.1 x 1.7 cm previously. There is no blood flow seen within the nodule. . Visualized portions of the body the pancreas appear normal. The spleen is absent. The abdominal aorta and inferior vena cava are largely obscured. The kidneys are normal in size with no evidence of hydronephrosis or shadowing calculi. The left kidney measures 11.5 x 5.1 cm. The right kidney measures 13.0 x 4.0 cm. The bladder appears normal. There is no evidence of ascites. Procedure Note Interface, Radiant Results - 06/09/2018 2:25 PM CDT Abdominal sonogram Clinical indications: Cirrhosis, evaluate for ascites or mass. TECHNIQUE: Ultrasound images were performed over the abdomen. FINDINGS: Comparison is made with an abdominal sonogram of 06/03/[address] scan of the abdomen and pelvis of 06/07/2018. Is mild to moderate diffuse heterogeneity of the liver which is mildly enlarged measuring 18.5 cm compared with 18.6 cm one year earlier. No discrete hepatic masses are identified. Visualization of the liver immediately inferior to the right hemidiaphragm is limited. The gallbladder is absent. There is no evidence of bile duct dilatation. The common bile duct measures 0.5 cm. There is an oval-shaped soft tissue nodule interposed between the body of the pancreas and the left lobe of the liver nodule has increased in size measuring 3.9 x 1.4 x 2.7 cm compared with 2.8 x 1.1 x 1.7 cm previously. There is no blood flow seen within the nodule. . Visualized portions of the body the pancreas appear normal. The spleen is absent. The abdominal aorta and inferior vena cava are largely obscured. The kidneys are normal in size with no evidence of hydronephrosis or shadowing calculi. The left kidney measures 11.5 x 5.1 cm. The right kidney measures 13.0 x 4.0 cm. The bladder appears normal. There is no evidence of ascites. IMPRESSION Enlarging nodule interposed between the body the pancreas and the left lobe of liver most compatible with indeterminate lymph node Mildly enlarged cirrhotic liver with no discrete hepatic mass identified. Ultrasound LI-RADS US-1, visualization score b Absent spleen and gallbladder. If clinically indicated, a dynamic CT scan of the abdomen and pelvis is recommended for further evaluation of the enlarging peripancreatic lymph node Ultrasound LI-RADS (v2017) assessment categories US-1, negative: No US evidence of HCC US-2, subthreshold: Observation detected that may warrant short-term US surveillance US-3, positive: Observation detected that may warrant contrast-enhanced imaging US visualization score A: No or minimal limitations B: Moderate limitations C: Severe limitations [email or web address]://www.acr.org/Clinical-Resources/Tkohzcayc-nxe-Yoym-Systems/LI-RADS Finalized by Gustavo Grace M.D. on 06/09/2018 2:22 PM. Dictated by Gustavo Grace M.D. on 06/09/2018 12:58 PM. Performing Organization Address City/State/Zipcode Phone Number K[facility] RAD RESULTS * GLUCOSE, RANDOM (06/08/2018 4:03 PM CDT) Glucose 116 (H) 70 - 100 MG/DL MAIN LAB Specimen Blood Performing Organization Address City/State/Zipcode Phone Number MAIN LAB [address] [place] [address] * IR ASPIRATION/DRAIN (06/08/2018 8:22 AM CDT) Addenda Addendum by Abe Benjamin MD on 06/12/2018 12:41 PM Finalized by Del Benjamin M.D. on 06/08/2018 10:13 AM. Dictated by Modesto Martinez MD on 06/08/2018 9:15 AM.Addendum: History: Abdominal distention , Hepatic Encephalopathy, Ascites. Approved by Modesto Martinez MD on 06/12/2018 11:38 AM By my electronic signature, I attest that I have personally reviewed the images for this examination and formulated the interpretations and opinions expressed in this report Finalized by Del Benjamin M.D. on 06/12/2018 12:26 PM. Dictated by Modesto Martinez MD on 06/12/2018 11:38 AM.Addendum: Clinical history should include abdominal distention, hepatic encephalopathy Finalized by Del Benjamin M.D. on 06/12/2018 12:38 PM. Dictated by Del Benjamin M.D. on 06/12/2018 12:38 PM. Addendum by Abe Benjamin MD on 06/12/2018 12:29 PM Finalized by Del Benjamin M.D. on 06/08/2018 10:13 AM. Dictated by Modesto Martinez MD on 06/08/2018 9:15 AM.Addendum: History: Abdominal distention , Hepatic Encephalopathy, Ascites. Approved by Modesto Martinez MD on 06/12/2018 11:38 AM By my electronic signature, I attest that I have personally reviewed the images for this examination and formulated the interpretations and opinions expressed in this report Finalized by Del Benjamin M.D. on 06/12/2018 12:26 PM. Dictated by Modesto Martinez MD on 06/12/2018 11:38 AM. Impressions Performed At No drainable ascites for paracentesis. [facility] RAD RESULTS Approved by Modesto Martinez MD on 06/08/2018 9:16 AM By my electronic signature, I attest that I have personally reviewed the images for this examination and formulated the interpretations and opinions expressed in this report Narrative Performed At Aborted ultrasound-guided paracentesis: [facility] RAD RESULTS History: Ascites. Technique and Findings: Abe Stanley M.D, the attending radiologist, was present for the critical and jarrell portions of the procedure with a midlevel, resident, and/or fellow participating.Overlapping portions were non jarrell and I was immediately available.I interpret the critical and jarrell portion of this procedure to have been image interpretation. The risks and benefits of procedure were explained the patient beforehand, the patient was allowed to ask any questions at this time. Limited ultrasound images of the abdomen were obtained in all 4 quadrants, demonstrating no drainable fluid for paracentesis. The procedure was therefore aborted. The patient was escorted from the department for continued care. Sedation: No IV sedation was administered. Procedure Note Interface, Radiant Results - 06/12/2018 12:41 PM CDT Aborted ultrasound-guided paracentesis: History: Ascites. Technique and Findings: I, Abe Benjamin M.D, the attending radiologist, was present for the critical and jarrell portions of the procedure with a midlevel, resident, and/or fellow participating. Overlapping portions were non jarrell and I was immediately available. I interpret the critical and jarrell portion of this procedure to have been image interpretation. The risks and benefits of procedure were explained the patient beforehand, the patient was allowed to ask any questions at this time. Limited ultrasound images of the abdomen were obtained in all 4 quadrants, demonstrating no drainable fluid for paracentesis. The procedure was therefore aborted. The patient was escorted from the department for continued care. Sedation: No IV sedation was administered. IMPRESSION No drainable ascites for paracentesis. Approved by Modesto Martinez MD on 06/08/2018 9:16 AM By my electronic signature, I attest that I have personally reviewed the images for this examination and formulated the interpretations and opinions expressed in this report Performing Organization Address City/[facility]/Zipcode Phone Number RAD RESULTS * CULTURE-URINE W/SENSITIVITY (06/08/2018 3:20 AM CDT) Battery Name URINE CULTURE MAIN LAB Specimen URINE MAIN LAB Description Special NONE MAIN LAB Requests Culture <10,000 organisms/ml MAIN LAB CONTAMINANT Report Status FINAL MAIN LAB 06/09/2018 Specimen Urine - Urine Performing Organization Address City/[facility] Phone Number MAIN LAB [address] [place] [address] * TSH WITH FREE T4 REFLEX (06/08/2018 1:00 AM CDT) TSH 1.120 0.35 - 5.00 MCU/ML MAIN LAB Specimen Blood Performing Organization Address [facility] Phone Number MAIN LAB [address] [place] [address] * ALPHA FETO PROTEIN (AFP) (06/08/2018 1:00 AM CDT) Alpha Feto 3.0 0.0 - 15.0 NG/ML MAIN LAB Protein Specimen Blood Performing Organization Address [facility] Phone Number MAIN LAB [address] [place] [address] * INFLUENZA A/B AG (RAPID TEST) (06/08/2018 1:00 AM CDT) Battery Name INFLUENZA A/B ANTIGEN MAIN LAB Specimen NASOPHARYNGEAL SWAB MAIN LAB Description Special NONE MAIN LAB Requests Direct Antigen NEGATIVE FOR INFLUENZA A/B MAIN LAB Report Status FINAL MAIN LAB 06/08/2018 Specimen Nasopharyngeal Swab Performing Organization Address [facility] Phone Number MAIN LAB [address] [place] [address] * HEMOGLOBIN A1C (06/08/2018 1:00 AM CDT) Hemoglobin A1C 5.8 4.0 - 6.0 % MAIN LAB Comment: The ADA recommends that most patients with type 1 and type 2 diabetes maintain an A1c level <7%. Specimen Blood Performing Organization Address City/[facility] Phone Number MAIN LAB [address] [place] [address] * LIPID PROFILE (06/08/2018 1:00 AM CDT) Cholesterol 126 <200 MG/DL KU MAIN LAB Triglycerides 89 <150 MG/DL K[facility] MAIN LAB HDL 15 (L) >40 MG/DL [facility] MAIN LAB LDL 70 <100 MG/DL K[facility] MAIN LAB VLDL 18 MG/DL KU MAIN LAB Non HDL 111 MG/DL K[facility] MAIN LAB Cholesterol Comment: Calculated non-HDL Cholesterol (non-HDL-C) indirectly measures LDL-C, Lp(a), IDL-C, and VLDL-C.It is a surrogate marker for Apoprotein B.Goal should be less than 130 mg/dL. Specimen Blood Performing Organization Address City/State/Zipcode Phone Number MAIN LAB [address] [place] [address] * CT ABD/PEL EXTERNAL IMAGING (06/07/2018 12:05 AM CDT) Narrative Performed At This order has been auto finalized and does not contain a result. * ECG-SCAN (06/07/2018 12:00 AM CDT) Narrative Performed At Ordered by an unspecified provider. from Last 3 Months Insurance Type Payer Benefit Subscriber ID Effective Phone Address Plan / Dates Group PPO [employer] xxxxxxxxxxxx [id number] [place] resent [place] Advance Directives Patient has advance care planning documents, and code status on file. For more information, please contact: [facility] [address] [place] [address] Date Inactivated Comments Code Status Date Activated 07/07/2018 6:25 PM Full Code 06/24/2018 10:27 PM Provider has discussed Code Status Yes w/Patient or Family? 06/24/2018 10:27 PM Full Code 06/24/2018 9:50 PM Provider has discussed Code Status No, more discussion w/Patient or Family? needed 06/24/2018 9:50 PM Full Code 06/24/2018 9:50 PM Provider has discussed Code Status No, more discussion w/Patient or Family? needed 06/15/2018 2:32 PM Full Code 06/11/2018 10:12 AM Provider has discussed Code Status Yes w/Patient or Family? 06/11/2018 10:12 AM Full Code 06/07/2018 11:57 PM Provider has discussed Code Status No, more discussion w/Patient or Family? needed
--- OUTSIDE RECORDS SUMMARY | 2018-07-07 19:47 | XMS REPORT | Encounter Summary ---
Author Author [facility] Organization [facility] Address Unknown Phone Unavailable Care Team Providers Care Prep Person Name Role Phone Santiago Torres MD PCP Reason for Referral * Consult, Test & Treat (Discharge Pending) Referred By Contact Referred To Contact Status Reason Specialty Diagnoses / Procedures Mey Cerrato APRN-NP [address] [place] [address] New Request Procedures F/U APPT REQUEST: [facility] * Consult, Test & Treat (Discharge Pending) Referred By Contact Referred To Contact Status Reason Specialty Diagnoses / Procedures Mey Cerrato APRN-NP [address] [place] [address] New Request Procedures F/U APPT REQUEST: [facility] * Consultation (Discharge Pending) Referred By Contact Referred To Contact Status Reason Specialty Diagnoses / Procedures Susanne Shah APRN-NP [address] [address] New Request Procedures CARDIOLOGY HEART FAILURE FOLLOW UP APPOINTMENT REQUEST * Consultation (Discharge Pending) Referred By Contact Referred To Contact Status Reason Specialty Diagnoses / Procedures Susanne Shah APRN-NP [id number] [place] [address] New Request Procedures CARDIOLOGY HEART FAILURE FOLLOW UP APPOINTMENT REQUEST Reason for Visit * Auth/Cert Referred By Contact Referred To Contact Status Reason Specialty Diagnoses / Procedures Diagnoses Acidosis Metabolic acidosis Renal failure/Metabolic acidosis Encounter Details Care Team Description Date Type Department Andrey Etienne MD [address] [facility] [address] [place] [id number] [phone] Archana Ladd MD [address] [facility] [address] [place] [address] [phone] Melissa Maier MD [address] [facility] [address] [place] [address] [phone] Lupillo Burton MD [address] [place] [address] [phone] Rodrigo Soler MD [address] [place] [address] [phone] End stage liver disease (HCC) 06/24/2018 [facility] 07/07/[address] [place] [address] Social History Date Tobacco Use Types Packs/Day Years Used Never Smoker Smokeless Tobacco: Never Used Alcohol Use Drinks/Week oz/Week Comments No Sex Assigned at Date Recorded Not on file Industry Job Start Date Occupation Not on file Not on file Not on file Travel End Travel History Travel Start No recent travel history available. documented as of this encounter Last Filed Vital Signs Time Taken Vital Sign Reading 07/07/2018 2:49 PM CDT Blood Pressure 148/68 07/07/2018 2:49 PM CDT Pulse 72 07/07/2018 2:49 PM CDT Temperature 36.7 C (98 F) - Respiratory Rate - 07/07/2018 3:45 PM CDT Oxygen Saturation 92% - Inhaled Oxygen - Concentration 07/07/2018 5:00 AM CDT Weight 122.5 kg (270 lb 1 oz) 07/05/2018 7:45 AM CDT Height 170.2 cm (5' 7.01") 07/05/2018 7:45 AM CDT Body Mass Index 42.29 documented in this encounter Functional Status Date of Assessment Functional Status Response 07/07/2018 Does the patient have a hearing impairment: No 07/07/2018 Does the patient have a visual impairment: No 07/07/2018 Does the patient have impaired ambulation: Yes 07/07/2018 Does the patient have an activity of daily living Yes (ADL) impairment: 07/07/2018 Does the patient have an instrumental activity of Yes daily living (IADL) impairment: Date of Assessment Cognitive Status Response 07/07/2018 Does the patient have a cognitive impairment: No documented as of this encounter Discharge Summaries * Rodrigo Soler MD - 07/07/2018 12:10 PM CDT Physician Discharge Summary Name: Niecy Richey Date Of : 1965 Age: 52 years Admit date: 06/24/2018 Discharge date: 07/07/2018 Attending Physician: Rodrigo Soler MD Service: [facility] 2777 Physician Summary completed by: Rodrigo Soler MD Reason for hospitalization: hypoxic respiratory failure Significant PMH: Past Medical History: Diagnosis Date Chronic respiratory failure with hypoxia, on home oxygen therapy (HCC) 2L NC w/ exertion DM (diabetes mellitus) (HCC) End stage liver disease (HCC) 06/10/2018 GERD (gastroesophageal reflux disease) History of hepatitis C 04/18/2017 tx w/ ribavirin and IFN HTN (hypertension) MCGOWAN (nonalcoholic steatohepatitis) 06/10/2018 Neuropathy S/P splenectomy 06/10/2018 Thrombocytopenia (HCC) Type 2 diabetes mellitus with complication (HCC) 08/21/2016 Allergies: Dilaudid [hydromorphone]; Metformin; and Reglan [metoclopramide] Admission Physical Exam notable for: General: Alert, cooperative, no distress, appears stated age. Obese Head: Normocephalic, without obvious abnormality, atraumatic Eyes: Conjunctivae/corneas clear. PERRL, EOMs intact. Fundi benign Lungs: Clear to auscultation bilaterally Heart: Regular rate and rhythm, possible gallop. distant sounds. Abdomen: Soft, obese, subQ tissue edematous, non-tender. Bowel sounds normal. Extremities: bilateral pitting edema to hips Neurologic: nonfocal Admission Lab/Radiology studies notable for: Creatinine 1.72, BUN 54. WBC 22.9, Hgb 8.0, plt 128. Cortisol 2.4. ABG 7.34/38/ 76. Brief Hospital Course: The patient was admitted and the following issues were addressed during this hospitalization: Volume overload / Acute on chronic diastolic heart failure / Pulmonary hypertension,likely owing to left heart disease, chronic hypoxia/OHS/likely NABIL / Hypertension: Echo with LVEF 70%, unable to assess diastolic fillling, normal RV, elevated CVP>15 mmHg, mild to moderate MS, estimated PASP 62 mmHg. Admission CXR with evidence of volume overload - pulmonary vascular congestion, small to moderate L pleural effusion, cardiomegaly, BNP 967. Was on Lasix gtt @ 10 mg/hr, switched to Lasix 40mg IV tid on 07/05. Holding lisinopril due to MARIN; should discontinue permanently with her decompensated cirrhosis. Continue metoprolol 12.5 mg bid and spironolactone. Cardiology was following closely with monitoring of I&O, daily weight, lytes. appreciate their assistance. Weight from 322 to 270 which is her goal weight. Switched to po diuretics on 07/06. Follow up arranged. Acute on chronic hypoxic respiratory failure, improvedCompleted 10 day course of antibiotics (vancomycin and zosy)n for HCAP. Intubated at OSH, extubated prior to transfer, now on MARINE ENGINE MECHANIC 2 L. Due to volume overload +/- infection. Diuresis as above. Incentive spirometry Acute kidney injury, improving:Suspect cardiorenal physiology, as Cr of 1.7- 1.9 improving steadily with diuresis. H/o ITP s/p splenectomy / Recurrent thrombocytopenia Follows with Hematology - Dr. Moran. Continue eltrombopag, had been held earlier at OSH; withdrawalislikely the cause of worsening plt count. Now resumed. Hematology was following closely with daily hemolysis/DIC. Platelets remained low, but per Hematology no indication for IVIG or transfusion unless bleeding, or planned for surgical procedures. Did not require transfusion during stay. Plan to follow CBC twice weekly after discharged and follow up with Persistent leukocytosis, chronic~17-20k, remained afebrile, likely related to prior splenectomy. No evidence of infection Decompensated cirrhosis:Due to MCGOWAN, HCV. Complicated by hepatic encephaloapthy. No ascites on abdominal US06/09/18; liver nodule as below; AFP 3 05/2018. Not a candidate for OLT due to BMI. S/p treatment for HCV with interferon and ribavirin 2012 with SVR. No prior EGD for EV screening on file. Diuresis as above. MARINE ENGINE MECHANIC on lactulose, rifaximin. Was switched from lactulose to miralax due to abdominal cramping with improvement in symptoms. Will increase frequency of miralax to promote 2-3 bowel movements daily. Follow up with Hepatology arranged Liver nodule:Abdominal US06/09/18 with 3.9 x 1.4 x 2.7 cm nodule with absent blood flow in between L liver lobe and pancreas. CT abdomen: more consistent with large lymph node. Low suspicion for malignancy. Recommended follow up CT in 3-6 months - patient is aware. NABIL, OHS:Required rescue Bipap in the MICU. Started on autopap at night. Patient will need referral for outpatient sleep study on discharge Type 2 diabetes:A1c 5.8% 06/08/18.Continue lantus 40 un qhs, aspart 8 un tid with meals, low dose sliding scale aspart Peripheral neuropathy:Continue home tizanidine.Havechangedgabapentin to pregabalin 75 mg bid.Pain management was following. Abnormalcosyntropinstimulationtest: Cortisol 2.7 on random draw. ACTH stim test with baseline- 1.1, 30min 7.2, 60min 9.9. Endocrine consulted due to abnormal stim test.Will need repeat in outpatient setting Depression:Continue home amitriptyline and duloxetine Condition at Discharge: Stable Discharge Diagnoses: Hospital Problems Active Problems End stage liver disease (HCC) Metabolic acidosis Acidosis Severe malnutrition (HCC) Surgical Procedures: None Significant Diagnostic Studies and Procedures: noted in brief hospital course Consults: Cardiology, Endocrinology and Hematology Patient Disposition: Outside Rehabilitation Facility Patient instructions/medications: Orders/Medications for Discharges to Home and External Facilities: CBC and Diff Standing Status: Standing Number of Occurrences: 6 Standing Exp. Date: 07/08/19 Resiults to be faxed to [phone] Comprehensive Metabolic Panel (CMP) Standing Status: Standing Number of Occurrences: 6 Standing Exp. Date: 07/08/19 Results to be faxed to [phone] INSTRUCTIONS, ADDITIONAL You need to discuss with your PCP referral for outpatient sleep study. Activity as Tolerated It is important to keep increasing your activity level after you leave the hospital. Moving around can help prevent blood clots, lung infection (pneumonia ) and other problems. Gradually increasing the number of times you are up moving around will help you return to your normal activity level more quickly. Continue to increase the number of times you are up to the chair and walking daily to return to your normal activity level. Begin to work toward your normal activity level at discharge Report These Signs and Symptoms Please contact your doctor if you have any of the following symptoms: difficulty breathing or chest pain, increased weight, bleeding Questions About Your Stay For questions or concerns regarding your hospital stay, call [phone]. Discharging attending physician: RODRIGO SOLER [[id number]] Heart Failure Information You are at risk for readmission to the hospital because of fluid overload. There are steps you can take to lower your risk: *Continue your current heart medications. Changes made have been made during your hospital stay. *Remember to weigh yourself every morning, first thing after you urinate, and write down your weigh. Take this record to your doctor's appointments. *Chart your symptoms - fatigue, shortness of breath, swelling, etc. Immediately report any worsening. *Remember to consume no more than 2,000mg (milligrams) of sodium daily. Watch out for packaged, processed, canned, and restaurant foods especially. *If any of your symptoms worsen, or if you gain more than 2 pounds in 24 hours, or 5 pounds in a week, call your pearl fisherman immediately. EARLY REPORTING OF THESE CHANGES IS VERY IMPORTANT. Condition Code Cardiac Diet Limiting unhealthy fats and cholesterol is the most important step you can take in reducing your risk for cardiovascular disease. Unhealthy fats include saturated and trans fats. Monitor your sodium and cholesterol intake. Restrict your sodium to 2g (grams) or 2000mg (milligrams) daily, and your cholesterol to 200mg daily. If you have questions regarding your diet at home, you may contact a dietitian at . Diabetic Diet You should eat between 1600 and 2000 calories per day. This is equal to 60g ( grams) of carbohydrates per meal, and 30g of carbohydrates for a bedtime snack. If you have questions about your diet after you go home, you can call a dietitian at [phone]. Report These Signs and Symptoms Please contact your doctor if you have any of the following symptoms: difficulty breathing, decreased urine output, increased weight Medication List START taking these medications duloxetine DR 30 mg capsule Commonly known as: CYMBALTA Take one capsule by mouth daily. Start taking on: 07/08/2018 furosemide 40 mg tablet Commonly known as: LASIX Take one tablet by mouth twice daily. Take in morning and afternoon magnesium oxide 400 mg (241.3 mg magnesium) tablet Commonly known as: MAG-OX Take one tablet by mouth twice daily. metoprolol tartrate 25 mg tablet Commonly known as: LOPRESSOR Take one-half tablet by mouth twice daily. polyethylene glycol 3350 17 g packet Commonly known as: MIRALAX Take one packet by mouth three times daily before meals. Titrate to 2-3 bowel movements per day pregabalin 75 mg capsule Commonly known as: LYRICA Take one capsule by mouth twice daily. spironolactone 25 mg tablet Commonly known as: ALDACTONE Take one tablet by mouth daily. Take with food. tiZANidine 4 mg tablet Commonly known as: ZANAFLEX Take one tablet by mouth every 8 hours as needed. vitamins, multi w/minerals 9 mg iron-400 mcg Tab Take one tablet by mouth daily. CHANGE how you take these medications insulin lispro(+) 100 unit/mL injection PEN Commonly known as: HumaLOG KwikPen Insulin Inject eight Units to thirteen Units under the skin three times [...] give additional 5 units if BS >400 What changed: how much to take additional instructions CONTINUE taking these medications acetaminophen 325 mg tablet Commonly known as: TYLENOL amitriptyline 25 mg tablet Commonly known as: ELAVIL eltrombopag 50 mg tablet Commonly known as: PROMACTA Take two tablets daily on an empty stomach (at least 1 hour before or 2 hours after food). Separate antacids by at least 4 hours. insulin glargine 100 unit/mL (3 mL) injection PEN Commonly known as: LANGunjanUS ANTWAN BASAGLAR Inject forty Units under the skin at bedtime daily. Patient was taking 50 U BID prior to hospitalization. She is needing significantly less in the hospital off steroids and on diabetic diet. Indications: type 2 diabetes mellitus lactulose 10 gram/15 mL oral solution loratadine 10 mg tablet Commonly known as: CLARITIN nystatin 100,000 unit/g topical powder Commonly known as: NYSTOP Apply under breast. rifAXIMin 550 mg tablet Commonly known as: XIFAXAN Take 1 Tab by mouth twice daily. Indications: HEPATIC ENCEPHALOPATHY STOP taking these medications bumetanide 1 mg tablet Commonly known as: BUMEX fluoxetine 20 mg capsule Commonly known as: PROZAC gabapentin 300 mg capsule Commonly known as: NEURONTIN lisinopril 10 mg tablet Commonly known as: PRINIVIL; ZESTRIL Where to Get Your Medications Information about where to get these medications is not yet available Ask your nurse or doctor about these medications duloxetine DR 30 mg capsule furosemide 40 mg tablet magnesium oxide 400 mg (241.3 mg magnesium) tablet metoprolol tartrate 25 mg tablet polyethylene glycol 3350 17 g packet pregabalin 75 mg capsule spironolactone 25 mg tablet tiZANidine 4 mg tablet vitamins, multi w/minerals 9 mg iron-400 mcg Tab Scheduled appointments: Jul 13, 2018 3:30 PM CDT Hospital Follow Up with Gifty Conroy APRN [facility] ([facility]) [address] [place] [address] [address] [facility] [address] July 21, 2018 10:20 AM CDT Return Patient with Melida Scherer APRN [facility] ([facility]) [address] [id number] July 26, 2018 3:00 PM CDT Return [facility] with Johnson [facility] [place] [facility] [address] [place] [address] [facility] [address] August 02, 2018 11:20 AM CDT (Arrive by 11:05 AM) Return Patient with Darlin Moran MD [facility] [place] [id number] [facility] [phone] Sep 07, 2018 1:00 PM CDT New Patient with Angelic Sims MD [facility] ([facility]) 4000 [facility] [id number] [facility] [address] Pending items needing follow up: none Signed: Rodrigo Soler MD 07/07/2018 cc: Primary Care Physician: Santiago Torres Verified Referring physicians: Tita Subramanian DO Additional provider(s): documented in this encounter Medications at Time of Discharge Start Date End Date Medication Sig Dispensed Refills acetaminophen (TYLENOL) Take 650 mg 0 325 mg tablet by mouth daily as needed for Pain. Max of 4,000 mg of acetaminophen in 24 hours. amitriptyline (ELAVIL) 25 Take 25 mg by 0 mg tablet mouth at bedtime daily. 07/08/[address] (CYMBALTA) Take one 90 capsule 0 30 mg capsule capsule by mouth daily. 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 Separate antacids by at least 4 hours. 07/07/2018 furosemide (LASIX) 40 mg Take one 90 tablet 3 tablet tablet by mouth twice daily. Take in morning and afternoon 06/15/2018 insulin glargine (LANTUS Inject forty 0 SOLOSTAR, BASAGLAR) 100 Units under unit/mL (3 mL) injection the skin at PENIndications: type 2 bedtime diabetes mellitus daily. Patient was taking 50 U BID prior to hospitalizati on. She is needing significantly less in the hospital off steroids and on diabetic diet. Indications: type 2 diabetes mellitus 06/15/2018 insulin lispro(+) Inject eight 45 mL 0 (HUMALOG KWIKPEN INSULIN) Units to 100 unit/mL injection PEN thirteen Units under [...] give additional 5 units if BS >400 lactulose 10 gram/15 mL Take 20 g by 0 oral solution mouth four times daily. loratadine (CLARITIN) 10 Take 10 mg by 0 mg tablet mouth every morning. 07/07/2018 magnesium oxide (MAG-OX) Take one 180 tablet 3 400 mg (241.3 mg tablet by magnesium) tablet mouth twice daily. 07/07/2018 metoprolol tartrate Take one-half 90 tablet 3 (LOPRESSOR) 25 mg tablet tablet by mouth twice daily. 06/15/2018 nystatin (NYSTOP) 100,000 Apply under 0 unit/g topical powder breast. 07/07/2018 polyethylene glycol 3350 Take one 12 each 0 (MIRALAX) 17 g packet packet by mouth three times daily before meals. Titrate to 2-3 bowel movements per day 07/07/2018 pregabalin (LYRICA) 75 mg Take one 180 capsule 3 capsule capsule by mouth twice daily. 08/19/2016 rifAXIMin (XIFAXAN) 550 Take 1 Tab by 60 Tab 11 mg tablet mouth twice daily. Indications: HEPATIC ENCEPHALOPATH Y 07/07/2018 spironolactone Take one 90 tablet 3 (ALDACTONE) 25 mg tablet tablet by mouth daily. Take with food. 07/07/2018 tiZANidine (ZANAFLEX) 4 Take one 0 mg tablet tablet by mouth every 8 hours as needed. 07/07/2018 vitamins, multi Take one 0 w/minerals 9 mg iron-400 tablet by mcg tab mouth daily. documented as of this encounter Progress Notes * Yulia Pereira RN - 07/07/2018 3:59 PM CDT Niecy Richey discharged on 07/07/2018. Equipment Removed: Telepack. Discharge instructions reviewed with patient and family. Valuables returned: n/a Home medications: On discharge home medications stored this admission returned to the Patient: Yes. Functional assessment at discharge complete: Yes . Discharge instructions reviewed with patient and . AVS and discharge transfer packet provided. All questions and concerns addressed. PICC line removed and pressure dressing applied. When asked if patient had portable O2 tank for ride home, both and patient denied needing one for transport. Patient is currently on RA and O2 sat. is 92%. Patient refused for tank to be provided. Wheelchair to lobby for DC to H.BLOOM Tia. 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 Pt has been admitted to transferring hospital for ~1 week with pneumonia requiring intubation, ultimately weaned to 2L NC. Precautions: O2 Requirement(2L NC) Pain / Complaints: Patient agrees to participate in therapy Objective Psychosocial Status: Willing and Cooperative to Participate Persons Present: RehabTechnician(X2) Home Living Type of Home: House Home Layout: One Level;Ramped Entrance;Able to Live on Main Level w/Bedrm/ Bathrm Access Bathroom Shower / Tub: Walk-in Shower Bathroom Toilet: Standard Home Equipment: Walker;Cane;Wheelchair-manual;Caser Up Prior Function Level Of Struthers: Independent with ADLs and functional transfers;Needed assistance with homemaking Lives With: Spouse;Son(DIL, infant grandchild.) Receives Help From: Family(All family members work during the day.) Other Function Comments: Pt transferred to [facility] from an outside subacute rehab within a hospital. Was ambulating with a SPC prior to recent hospital admissions. Uses a manual wheelchair within the community. States that she has had 3 falls in the past 6 months as a result of her 'legs giving out.' Pt reports that she is typically ambulatory with all ADLs and is able to do some light cooking and cleaning. States that she was walking with a RW at rehab. ADL's Where Assessed: Chair Grooming Assist: Stand By Assist Grooming Deficits: Setup;Brushing Hair UE Dressing Assist: Moderate Assist UE Dressing Deficits: Setup;Verbal Cueing;Increased Time To Complete;Thread RUE; Thread LUE;Design Editor Head;Pull Down In Back LE Dressing Assist: Maximum Assist LE Dressing Deficits: Setup;Steadying;Verbal Cueing;Supervision/Safety; Increased Time To Complete;Thread RLE Into Pants;Thread LLE Into Pants;Thread RLE Into Underwear;Thread LLE Into Underwear;Pull Up Over Hips Toileting Assist: Not Performed(Pt denied need for toileting.) Functional Transfer Assist: Maximum Assist(X2) Functional Transfer Deficits: Steadying;Increased Time to Complete;Supervision/ Safety;Verbal Cueing Comment: Pt seated in chair initially. Pt dons underwear and pants with assistance to thread BLE. Pt stated her spouse is able to assist at home. Pt performs sit to stand with Max A X2 while blocking B knees due to increase knee buckling. Pt requires assistance to pull underwear and pants over hips. Pt don shirt seated with assistance to supervisor pullet farm head and pull down in back. Pt in chair with all needs in reach at end of session. RN notified. Activity Tolerance Endurance: 2/5 Tolerates 10-20 Minutes Exercise w/Multiple Rests Sitting Balance: 3+/5 Sits w/o UE Support for 30 Seconds or Greater Cognition Overall Cognitive Status: WFL to Adequately Complete Self Care Tasks Safely Cognition Comment: Pt expressed inreased anxiety durign stands due to increased shakiness. UE AROM Comment: Pt stated she is unable to reach behind her to pull down shirt due to a previous diagnosis. Pt was unable to clarify what that diagnosis is. Assessment Assessment: Decreased ADL Status;Decreased Endurance;Decreased Self-Care Trans; Decreased High-Level ADLs Prognosis: Poor;w/Cont OT s/p Acute Discharge Plan Progress: Slow Progress, Decreased Activity Tolerance OT Frequency: 5x/week OT Plan for Next Visit: [facility] transfer and hygiene. ADL Goals Patient Will Perform Grooming: Standing at Sink;w/ Stand By Assist Patient Will Perform LE Dressing: w/ Moderate Assist Patient Will Perform Toileting: w/ Moderate Assist Functional Transfer Goals Pt Will Transfer To Bedside Commode: w/ Minimum Assist OT Discharge Recommendations OT Discharge Recommendations: Inpatient Setting Equipment Recommendations: Sock José Luis, Long Handled Bath Sponge, Shower Chair( Grab bars; Hand Held Shower Head.) Therapist: Carlyn Avila Date: 07/07/2018 * Michelle Barronherine - 07/07/2018 9:02 AM CDT PHYSICAL THERAPY PROGRESS NOTE MOBILITY: Progressive Mobility Level: Active transfer to chair Level of Assistance: Assist X2 Assistive Device: Hand Held Activity Limited By: Other (Comment)(UE/LE Tremors) SUBJECTIVE: Significant hospital events: Admitted due to pneumonia, hypoxic respiratory failure, persistent metabolic acidosis PMH: chronic respiratory failure, DM, ESLD, GERD, HTN Mental / Cognitive Status: Alert;Oriented;Cooperative Persons Present: Spouse Pain: Patient has no complaint of pain Pain Interventions: Patient agrees to participate in therapy Comments: Patient on 1.5L via NC, overall is titrating down. Precautions: (External catheter) Ambulation Assist: Independent Mobility in Community with Device(used single point cane prior to May) Patient Owned Equipment: Single Point Cane;Roller Walker;Manual Wheelchair Home Situation: Lives with Family Type of Home: House Entry Stairs: 1-2 Stairs;Ramp In-Home Stairs: No Stairs Comments: Plans to return to previous rehab facility. POSTURE/NEURO: UE/LE tremors. BED MOBILITY/TRANSFERS: Bed Mobility: Supine to Sit: Standby Assist;Head of Bed Elevated;Use of Rail; Requires Extra Time Transfer Type: Sit to/from Stand Transfer: Assistance Level: To/From;Bed;Moderate Assist;Minimal Assist Transfer: Assistive Device: Roller Walker;Hand Hold Assist Transfers: Type Of Assistance: Elevated Bed Other Transfer Type: Stand to Sit Other Transfer: Assistance Level: To;Bed Side Chair;Minimal Assist;x2 People Other Transfer: Assistive Device: Hand Hold Assist End Of Activity Status: Up in Chair;Nursing Notified Comments: Trialed transfer with roller walker & assist x2 under each arm. Due to UE/LE tremors, assist under each arm was more effective & safer. Pt is unable to manage the walker safely at this time. Pt sat without warning while trying to use the walker several times. She was able to stand pivot without LE collapse using under arm assist. GAIT: Gait Distance: 1 feet Gait: Assistance Level: Minimal Assist;x2 People Gait: Assistive Device: Hand Hold Assist Comments: to chair only. Patient's spouse was present & assisted in transfers today. ACTIVITY/EXERCISE: Sit Edge Of Bed: 12 minutes Sit Edge Of Bed Assist: Stand By Assist Comments: Performed x4 sit to stand reps at roller walker level. UE/LE tremors causing knee buckling were of concern. Standing bouts limited to 3-5 seconds. ASSESSMENT/PROGRESS: Impaired Mobility Due To: Medical Status Limitation;Safety Concerns(Tremoring) Assessment/Progress: Should Improve w/ Continued PT Comments: Upper & lower extremity tremors with associated weakness is the primary limiting factor to mobility progression. Pt has adequate strength to stand with just minimal assist; feel tremors are causing the weakness. Turning from your back to your side while in a flat bed without using bed rails : A Little Moving from lying on your back to sitting on the side of a flatbed without using bedrails : A Little Moving to and from a bed to a chair (including a wheelchair): Total Standing up from a chair using your arms (e.g. wheelchair, or bedside chair): A Little To walk in hospital room: Total Climbing 3-5 steps with a railing: Total Raw Score: 12 Standardized (T-scale) Score: 32.23 Basic Mobility CMS 0-100%: 61.94 CMS G Code Modifier for Basic Mobility: CL GOALS: Goal Formulation: With Patient Time For Goal Achievement: 7 days Patient Will Go Supine To/From Sit: w/ Minimal Assist, Partly Met, New Goal, w/ Stand By Assist(SBA for HOB up) Patient Will Go Supine To Sit: New Goal, w/ Stand By Assist Patient Will Transfer Sit to Stand: w/ Minimal Assist, Met, Ongoing Patient Will Ambulate: 11-30 Feet, w/ Walker, w/ Minimal Assist Patient Will Sit Edge Of Bed: 6-10 Minutes, Met PLAN: Treatment Interventions: Mobility Training;Strengthening Plan Frequency: 5 Days per Week PT Plan for Next Visit: Bed mobility from flat bed, sit to stands and safety with stand pivots until to chair until tremoring improves. 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 Prior to transfer had been in the hospital for a week with pneumonia requiring intubation, weaned to 2 L O2 prior to transfer. She completed a course of Zosyn for possible pneumonia on 06/27. Currently on lasix gtt, now diuresing well. Volume overload Acute on chronic diastolic heart failure Pulmonary hypertension, likely owing to left heart disease, chronic hypoxia/OHS/ NABIL Hypertension - Echo with LVEF 70%, unable to assess diastolic fillling, normal RV, elevated CVP>15 mmHg, mild to moderate MS, estimated PASP 62 mmHg - Admission CXR with evidence of volume overload - pulmonary vascular congestion , small to moderate L pleural effusion, cardiomegaly, BNP 967. - Was on Lasix gtt @ 10 mg/hr, switched to Lasix 40mg IV tid on 07/05 - Strict I/Os, daily weights, low Na diet with 1.5L fluid restriction. - BID BMPs, keep K>4, Mg >2; replete as needed - Holding lisinopril due to MARIN; should discontinue permanently with her decompensated cirrhosis - Continue metoprolol 12.5 mg bid and spironolactone - Cardiology following, appreciate their assistance - Weight from 321 to 270 which is her goal weight - Switched to po diuretics on 07/06 Acute on chronic hypoxic respiratory failure, improved - Completed 10 day course of antibiotics (vancomycin and zosy)n for HCAP. Intubated at OSH, extubated prior to transfer, now on MARINE ENGINE MECHANIC 2 L. Due to volume overload +/- infection. - Diuresis as above - Incentive spirometry Acute kidney injury, improving - Suspect cardiorenal physiology, as Cr of 1.7-1.9 improving steadily with diuresis - Monitor renal function H/o ITP s/p splenectomy (age 6) Recurrent thrombocytopenia - Follows with [facility] - Dr. Moran - Continue eltrombopag, had been held earlier at OSH; withdrawalislikely the cause of worsening plt count. Now resumed - Holding heparin, although HIT score 3 and low suspicion of HIT - Hematology following, appreciate input - Daily hemolysis/DIC labs for now - Platelets remains low, but per Hematology no indication for IVIG or transfusion unless bleeding, or planned for surgical procedures - Have sent type/screen, consented for transfusion if needed - Plan to follow CBC twice weekly after discharged and follow up with Persistent leukocytosis, chronic ~17-20k, afebrile, likely related to prior splenectomy - No evidence of infection Decompensated cirrhosis - Due to MCGOWAN, HCV. Complicated by HE. No ascites on abdominal US 06/09/18; liver nodule as below; AFP 3 05/2018. Not a candidate for OLT due to BMI. S/p treatment for HCV with interferon and ribavirin 2012 with SVR. No prior EGD for EV screening on file. - Diuresis as above - MARINE ENGINE MECHANIC on lactulose, rifaximin - Was switched from lactulose to miralax due to abdominal cramping with improvement in symptoms. Will increase frequency of miralax to promote 2-3 bowel movements daily - Follow up with Hepatology arranged Liver nodule - Abdominal US 06/09/18 with 3.9 x 1.4 x 2.7 cm nodule with absent blood flow in between L liver lobe and pancreas - CT abdomen: more consistent with large lymph node. Low suspicion for malignancy. Recommended f/u in 3-6 months NABIL, OHS - Required rescue Bipap in the MICU. Started on autopap at night - Patient will need referral for outpatient sleep study on discharge Type 2 diabetes - A1c 5.8% 06/08/18 - Continue lantus 40 un qhs, aspart 8 un tid with meals, low dose sliding scale aspart Peripheral neuropathy - Continue home tizanidine -Havechangedgabapentin to pregabalin 75 mg bid - Currently on oxycodone as well, wean as tolerated - Pain mgmt following Abnormal cosynotropinstimulation test - Cortisol 2.7 on random draw. ACTH stim test with baseline- 1.1, 30min 7.2, 60min 9.9. Endo consulted due to abnormal stim test - Will need repeat in outpatient setting Depression - Continue home amitriptyline and duloxetine FEN - No IVF - Low Na diet - Mild hypomagnesemia, replaced as needed VTE proph: SCDs, no heparin products due to thrombocytopenia Code status: Full code Disposition:Patient is medically stable for discharge to Rehab. Waiting for insurance approval. Subjective Niecy Richey is a 52 y.o. female. Patient complaints of weakness, mild shakes when getting up. No fever, chills, chest pain. Shortness of breath and LE swellings improved. No abdominal discomfort since switched to miralax. Having regular stools. Medications Scheduled Meds: amitriptyline (ELAVIL) tablet 25 mg 25 mg Oral QHS duloxetine DR (CYMBALTA) capsule 30 mg 30 mg Oral QDAY eltrombopag (PROMACTA) tab 100 mg [Patient's Own Medication] 100 mg Oral QDAY(06) furosemide (LASIX) tablet 40 mg 40 mg Oral BID(9-17) insulin aspart U-100 (NOVOLOG FLEXPEN) injection PEN 0-6 Units 0-6 Units Subcutaneous ACHS (22) insulin aspart U-100 (NOVOLOG FLEXPEN) injection PEN 8 Units 8 Units Subcutaneous TID w/ meals insulin glargine (LANTUS SOLOSTAR, BASAGLAR) injection PEN 40 Units 40 Units Subcutaneous QHS(22) magnesium oxide (MAG-OX) tablet 400 mg 400 mg Oral BID metoprolol tartrate (LOPRESSOR) tablet 12.5 mg 12.5 mg Oral BID nystatin (NYSTOP) topical powder Topical BID polyethylene glycol 3350 (MIRALAX) packet 17 g 1 packet Oral TID before meals pregabalin (LYRICA) capsule 75 mg 75 mg Oral BID rifAXIMin (XIFAXAN) tablet 550 mg 550 mg Oral BID spironolactone (ALDACTONE) tablet 25 mg 25 mg Oral QDAY vitamins, multi w/minerals tablet 1 tablet 1 tablet Oral QDAY Continuous Infusions: PRN and Respiratory Meds:acetaminophen Q6H PRN, alteplase PRN (Concession Attendant from Rx) , ondansetron Q8H PRN, oxyCODONE Q6H PRN, tiZANidine Q8H PRN Objective: Vital Signs: Last Filed Vital Signs: 24 Hour Range BP: 149/54 (07/07 410) Temp: 36.3 C (97.4 F) (07/07 410) Pulse: 68 (07/07 410) Respirations: 20 PER MINUTE (07/07 410) SpO2: 93 % (07/07 410) O2 Delivery: CPAP/BiPAP (Pt Owned) (07/07 410) BP: (106-149)/(50-72) Temp: [36.3 C (97.4 F)-37.2 C (98.9 F)] Pulse: [65-84] Respirations: [20 PER MINUTE] SpO2: [93 %-97 %] O2 Delivery: CPAP/BiPAP (Pt Owned) Intensity Pain Scale (Self Report): Asleep (07/07/18 0000) Vitals: 07/05/18 0745 07/06/18 0352 07/07/18 0500 Weight: 127.6 kg (281 lb 4.9 oz) 125.8 kg (277 lb 5.4 oz) 122.5 kg (270 lb 1 oz ) Intake/Output Summary: (Last 24 hours) Intake/Output Summary (Last 24 hours) at 07/07/2018 0616 Last data filed at 07/07/2018 0614 Gross per 24 hour Intake 1218 ml Output 2985 ml Net -1767 ml Stool Occurrence: 0 Physical Exam GENERAL: calm, cooperative, no acute distress HEAD and NECK: EOMI, PERRL, neck supple CARDIOVASCULAR: normal rate, regular rhythm, no murmurs, rubs, or gallops. PULMONARY: lungs clear to auscultation bilaterally - no rhonchi, rales, wheezing. @L O2 ABDOMEN: soft, nontender, nondistended, no rebound or guarding GENITOURINARY: + nichole in place EXTREMITIES: extremities warm, well-perfused, 1+ LE edema. Normal peripheral pulses. SKIN: no rashes on exposed skin Lab Review 24-hour labs: Results for orders placed or performed during the hospital encounter of (from the past 24 hour(s)) POC GLUCOSE Collection Time: 07/06/18 7:49 AM Result Value Ref Range Glucose, POC 87 70 - 100 MG/DL POC GLUCOSE Collection Time: 07/06/18 11:27 AM Result Value Ref Range Glucose, POC 134 (H) 70 - 100 MG/DL POC GLUCOSE Collection Time: 07/06/18 5:04 PM Result Value Ref Range Glucose, POC 154 (H) 70 - 100 MG/DL BASIC METABOLIC PANEL Collection Time: 07/06/18 7:50 PM Result Value Ref Range Sodium 137 137 - 147 MMOL/L Potassium 4.4 3.5 - 5.1 MMOL/L Chloride 93 (L) 98 - 110 MMOL/L CO2 39 (H) 21 - 30 MMOL/L Anion Gap 5 3 - 12 Glucose 164 (H) 70 - 100 MG/DL Blood Urea Nitrogen 31 (H) 7 - 25 MG/DL Creatinine 1.38 (H) 0.4 - 1.00 MG/DL Calcium 8.8 8.5 - 10.6 MG/DL eGFR Non 40 (L) >60 mL/min eGFR 48 (L) >60 mL/min POC GLUCOSE Collection Time: 07/06/18 10:01 PM Result Value Ref Range Glucose, POC 155 (H) 70 - 100 MG/DL POC GLUCOSE Collection Time: 07/06/18 10:08 PM Result Value Ref Range Glucose, POC 152 (H) 70 - 100 MG/DL PROTIME INR (PT) Collection Time: 07/07/18 4:10 AM Result Value Ref Range INR 1.5 (H) 0.8 - 1.2 PTT (APTT) Collection Time: 07/07/18 4:10 AM Result Value Ref Range APTT 25.0 24.0 - 36.5 SEC CBC AND DIFF Collection Time: 07/07/18 4:10 AM Result Value Ref Range White Blood Cells 26.6 (H) 4.5 - 11.0 K/UL RBC 2.85 (L) 4.0 - 5.0 M/UL Hemoglobin 8.2 (L) 12.0 - 15.0 GM/DL Hematocrit 25.7 (L) 36 - 45 % MCV 90.2 80 - 100 FL MCH 28.7 26 - 34 PG MCHC 31.8 (L) 32.0 - 36.0 G/DL RDW 23.7 (H) 11 - 15 % Platelet Count 30 (L) 150 - 400 K/UL MPV 11.5 (H) 7 - 11 FL Segmented Neutrophils 70 41 - 77 % Lymphocytes 18 (L) 24 - 44 % Monocytes 7 4 - 12 % Eosinophil 5 0 - 5 % ANISO PRESENT POIK PRESENT POLY PRESENT Target PRESENT Platelet Estimate MKD DEC Absolute Neutrophil Count Manual 18.62 (H) 1.8 - 7.0 K/UL COMPREHENSIVE METABOLIC PANEL Collection Time: 07/07/18 4:10 AM Result Value Ref Range Sodium 141 137 - 147 MMOL/L Potassium 4.4 3.5 - 5.1 MMOL/L Chloride 98 98 - 110 MMOL/L Glucose 66 (L) 70 - 100 MG/DL Blood Urea Nitrogen 29 (H) 7 - 25 MG/DL Creatinine 1.30 (H) 0.4 - 1.00 MG/DL Calcium 9.1 8.5 - 10.6 MG/DL Total Protein 6.1 6.0 - 8.0 G/DL Total Bilirubin 1.5 (H) 0.3 - 1.2 MG/DL Albumin 3.2 (L) 3.5 - 5.0 G/DL Alk Phosphatase 88 25 - 110 U/L AST (SGOT) 33 7 - 40 U/L CO2 39 (H) 21 - 30 MMOL/L ALT (SGPT) 14 7 - 56 U/L Anion Gap 4 3 - 12 eGFR Non 43 (L) >60 mL/min eGFR 52 (L) >60 mL/min MAGNESIUM Collection Time: 07/07/18 4:10 AM Result Value Ref Range Magnesium 2.3 1.6 - 2.6 mg/dL PHOSPHORUS Collection Time: 07/07/18 4:10 AM Result Value Ref Range Phosphorus 3.5 2.0 - 4.5 MG/DL Point of Care Testing (Last 24 hours) Radiology and other Diagnostics Review: Pertinent radiology reviewed. Rodrigo Soler MD Pager [phone] * Meli Alanis RN - 07/06/2018 6:57 PM CDT Heart Failure Nursing Progress Note Admission Date: 06/24/2018 LOS: 12 days Admission Weight: (!) 146 kg (321 lb 14 oz) Most recent weights (inpatient): Vitals: 07/04/18 0600 07/05/18 0745 07/06/18 0352 Weight: 130.1 kg (286 lb 13.1 oz) 127.6 kg (281 lb 4.9 oz) 125.8 kg (277 lb 5.4 oz) Weight change from previous day:- 1.8kg Fluid restriction ordered: 1.5 liters Intake/Output Summary: (Last 24 hours) Intake/Output Summary (Last 24 hours) at 07/06/2018 1857 Last data filed at 07/06/2018 1827 Gross per 24 hour Intake 1578 ml Output 4850 ml Net -3272 ml Is patient incontinent Yes. Is brief scale being used? Yes Anticipated discharge date: To be determined. Discharge goals: Pt noted "Being able to breathe." Daily Assessment of Patient Stated Goals: Short Term Goal Identified by patient (Short Term=during hospitalization): Being able to breathe per pt. * Mey Cerrato APRN-SALONI - 07/06/2018 1:19 PM CDT General Progress Note Name: Niecy Richey Today's Date: 07/06/2018 Admission Date: 06/24/2018 LOS: 12 days Assessment/Plan: Active Problems: End stage liver disease (HCC) Metabolic acidosis Acidosis Severe malnutrition (HCC) 52 y.o.femalewith PMHofchronic respiratory failure with hypoxia, on home oxygen therapy, DMT2,end stage liver disease, GERD, hxof hepatitis C, HTN, MCGOWAN, ITP s/psplenectomy.She was transferred to on or further treatment of hypoxic respiratory failure, persistent metabolic acidosis. 1. Thrombocytopenia - plts 25K today, trending upward no bleeding -follows with . -long standing history with splenectomy at age 6 and treatment with steroids and Rituxan -Promacta 100mg po daily was held @ OSH 06/18; restarted 06/26. -zosyn/vancomycin stopped @ OSH 06/27 -IPF 40% suggests appropriate production -smear without schistocytes, normal platelet morphology -STEVEN negative, haptoglobin wnl, LDH 396, TV 1.3 2. Acute hypoxic respiratory failure with baseline O2 requirement of 2L NC -06/24 CXR: Findings consistent with CHF/volume overload including cardiomegaly, pulmonary vascular congestion and small to moderate left pleural effusion. Mixed bilateral pulmonary opacities may represent edema and/or pneumonia. -Echo with LVEF 70%, unable to assess diastolic fillling, normal RV, elevated CVP>15 mmHg, mild to moderate MS, estimated PASP 62 mmHg -completed 10 day coarse of vancomycin/zosyn @ OSH for HCAP -BNP 967 on admit -lasix IV Recommendations: -continued to follow daily CBC, no indication to treat ITP unless platelets <10K , bleeding or for a procedure -Ok for discharge from o ur standpoint, planning for discharge likely tomorrow. Patient will have twice weekly CBCs to at Rehab to be faxed to Dr Moran (lab appointments arranged by primary team please). Fu appt with Dr Floyd scheduled for 08/02/18 -continue Promacta Discussed with . Subjective Niecy Richey is a 52 y.o. female. Denies epistaxis, gingival bleeding, hemoptysis, hematemesis, hematochezia, melena, or hematuria. Medications Scheduled Meds: amitriptyline (ELAVIL) tablet 25 mg 25 mg Oral QHS duloxetine DR (CYMBALTA) capsule 30 mg 30 mg Oral QDAY eltrombopag (PROMACTA) tab 100 mg [Patient's Own Medication] 100 mg Oral QDAY(06) furosemide (LASIX) tablet 40 mg 40 mg Oral TID Followed by [START ON 07/07/2018] furosemide (LASIX) tablet 40 mg 40 mg Oral BID(9-17) insulin aspart U-100 (NOVOLOG FLEXPEN) injection PEN 0-6 Units 0-6 Units Subcutaneous ACHS (22) insulin aspart U-100 (NOVOLOG FLEXPEN) injection PEN 8 Units 8 Units Subcutaneous TID w/ meals insulin glargine (LANTUS SOLOSTAR, BASAGLAR) injection PEN 40 Units 40 Units Subcutaneous QHS(22) magnesium oxide (MAG-OX) tablet 400 mg 400 mg Oral BID metoprolol tartrate (LOPRESSOR) tablet 12.5 mg 12.5 mg Oral BID nystatin (NYSTOP) topical powder Topical BID polyethylene glycol 3350 (MIRALAX) packet 17 g 1 packet Oral TID before meals pregabalin (LYRICA) capsule 75 mg 75 mg Oral BID rifAXIMin (XIFAXAN) tablet 550 mg 550 mg Oral BID spironolactone (ALDACTONE) tablet 25 mg 25 mg Oral QDAY vitamins, multi w/minerals tablet 1 tablet 1 tablet Oral QDAY Continuous Infusions: PRN and Respiratory Meds:acetaminophen Q6H PRN, alteplase PRN (Concession Attendant from Rx) , ondansetron Q8H PRN, oxyCODONE Q6H PRN, tiZANidine Q8H PRN Review of Systems: Constitutional: positive for generalized weakness Objective: Vital Signs: Last Filed Vital Signs: 24 Hour Range BP: 106/72 (07/06 1152) Temp: 36.7 C (98 F) (07/06 115) Pulse: 65 (07/06 1152) Respirations: 20 PER MINUTE (07/06 1152) SpO2: 95 % (07/06 1152) O2 Delivery: Nasal Cannula (07/06 115) BP: (106-147)/(52-72) Temp: [36.6 C (97.8 F)-36.9 C (98.4 F)] Pulse: [65-84] Respirations: [18 PER MINUTE-20 PER MINUTE] SpO2: [93 %-100 %] O2 Delivery: Nasal Cannula Vitals: 07/04/18 0600 07/05/18 0745 07/06/18 0352 Weight: 130.1 kg (286 lb 13.1 oz) 127.6 kg (281 lb 4.9 oz) 125.8 kg (277 lb 5.4 oz) Intake/Output Summary: (Last 24 hours) Intake/Output Summary (Last 24 hours) at 07/06/2018 1319 Last data filed at 07/06/2018 1240 Gross per 24 hour Intake 1458 ml Output 4800 ml Net -3342 ml Stool Occurrence: 1(med semi soft stool.) Physical Exam General: A&O, no apparent distress Head: Normocephalic, without obvious abnormality, atraumatic Eyes: anicteric sclera, conjunctiva and lids normal Nose: Nares normal. Septum midline. Mucosa normal. No drainageor sinus tenderness Neck: Supple, no rigidity Oropharynx: No erythema, exudates, lesions or petechiae Respiratory: no visible labored respirations Cardiovascular: Regular rate Abdomen: no apparent abdominal pain Neurological: No focal deficits. Normal strength and sensation throughout Extremities: No peripheral edema, no cyanosis or clubbing Pulses: 3+ and symmetric, all extremities Skin: Color, texturs and turgor normal. No rashes or lesions Psychosocial: Appropriate Lab Review 24-hour labs: Results for orders placed or performed during the hospital encounter of (from the past 24 hour(s)) POC GLUCOSE Collection Time: 07/05/18 5:24 PM Result Value Ref Range Glucose, POC 110 (H) 70 - 100 MG/DL POC GLUCOSE Collection Time: 07/05/18 9:16 PM Result Value Ref Range Glucose, POC 176 (H) 70 - 100 MG/DL PROTIME INR (PT) Collection Time: 07/06/18 3:35 AM Result Value Ref Range INR 1.6 (H) 0.8 - 1.2 PTT (APTT) Collection Time: 07/06/18 3:35 AM Result Value Ref Range APTT 29.6 24.0 - 36.5 SEC CBC AND DIFF Collection Time: 07/06/18 3:35 AM Result Value Ref Range White Blood Cells 26.2 (H) 4.5 - 11.0 K/UL RBC 2.80 (L) 4.0 - 5.0 M/UL Hemoglobin 8.1 (L) 12.0 - 15.0 GM/DL Hematocrit 24.5 (L) 36 - 45 % MCV 87.3 80 - 100 FL MCH 28.7 26 - 34 PG MCHC 32.9 32.0 - 36.0 G/DL RDW 22.7 (H) 11 - 15 % Platelet Count 25 (L) 150 - 400 K/UL MPV 10.8 7 - 11 FL Segmented Neutrophils 57 41 - 77 % Lymphocytes 29 24 - 44 % Monocytes 9 4 - 12 % Eosinophil 5 0 - 5 % ANISO PRESENT HYPO PRESENT POIK PRESENT POLY PRESENT Ovalocyte PRESENT Schistocyte PRESENT Target PRESENT [place] Bodies PRESENT Platelet Estimate MKD DEC Absolute Neutrophil Count Manual 14.93 (H) 1.8 - 7.0 K/UL COMPREHENSIVE METABOLIC PANEL Collection Time: 07/06/18 3:35 AM Result Value Ref Range Sodium 143 137 - 147 MMOL/L Potassium 4.3 3.5 - 5.1 MMOL/L Chloride 96 (L) 98 - 110 MMOL/L Glucose 54 (L) 70 - 100 MG/DL Blood Urea Nitrogen 32 (H) 7 - 25 MG/DL Creatinine 1.26 (H) 0.4 - 1.00 MG/DL Calcium 9.2 8.5 - 10.6 MG/DL Total Protein 5.9 (L) 6.0 - 8.0 G/DL Total Bilirubin 1.5 (H) 0.3 - 1.2 MG/DL Albumin 3.1 (L) 3.5 - 5.0 G/DL Alk Phosphatase 84 25 - 110 U/L AST (SGOT) 32 7 - 40 U/L CO2 42 (H) 21 - 30 MMOL/L ALT (SGPT) 15 7 - 56 U/L Anion Gap 5 3 - 12 eGFR Non 44 (L) >60 mL/min eGFR 54 (L) >60 mL/min MAGNESIUM Collection Time: 07/06/18 3:35 AM Result Value Ref Range Magnesium 2.1 1.6 - 2.6 mg/dL PHOSPHORUS Collection Time: 07/06/18 3:35 AM Result Value Ref Range Phosphorus 3.9 2.0 - 4.5 MG/DL POC GLUCOSE Collection Time: 07/06/18 7:27 AM Result Value Ref Range Glucose, POC 62 (L) 70 - 100 MG/DL POC GLUCOSE Collection Time: 07/06/18 7:49 AM Result Value Ref Range Glucose, POC 87 70 - 100 MG/DL POC GLUCOSE Collection Time: 07/06/18 11:27 AM Result Value Ref Range Glucose, POC 134 (H) 70 - 100 MG/DL Point of Care Testing (Last 24 hours) Radiology and other Diagnostics Review: Pertinent radiology reviewed. KAYLAN Lowry Pager [phone] * Meli Alanis RN - 07/06/2018 10:58 AM CDT At approx 0730 Pt's fsbs=62. 4oz of orange juice given and pt has her breakfast with her. Rechecked blood glucose at 0750 was 87 (postmeal blood glucose). RN notified Dr. Fitzgerald regarding this. Received an order to give novolog 4units this am. Will cont to monitor. * Carlyn Avila - 07/06/2018 10:37 AM CDT OCCUPATIONAL THERAPY PROGRESS NOTE Mobility Progressive Mobility Level: Stand Level of Assistance: Assist X2 Assistive Device: Walker Time Tolerated: 11-30 minutes Activity Limited By: No limitations Subjective Pertinent Dx per Physician: 52yo F hx of recurrent hospitalizations, chronic respiratory failure on exertional 2L O2, DM2, 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 Pt has been admitted to transferring hospital for ~1 week with pneumonia requiring intubation, ultimately weaned to 2L NC. Precautions: O2 Requirement(2L NC; Nichole) Pain / Complaints: Patient agrees to participate in therapy Objective Psychosocial Status: Willing and Cooperative to Participate Persons Present: RehabTechnician;Spouse (MD and DAYCARE PROVIDER briefly at beginning of session) Home Living Type of Home: House Home Layout: One Level;Ramped Entrance;Able to Live on Main Level w/Bedrm/ Bathrm Access Bathroom Shower / Tub: Walk-in Shower Bathroom Toilet: Standard Home Equipment: Walker;Cane;Wheelchair-manual Prior Function Level Of Strut[place]: Independent with ADLs and functional transfers;Needed assistance with homemaking Lives With: Spouse;Son(DIL, grandchild.) Receives Help From: Family(All family members work during the day.) Other Function Comments: Pt transferred to [facility] from an outside subacute rehab within a hospital. Was ambulating with a SPC prior to recent hospital admissions. Uses a manual wheelchair within the community. States that she has had 3 falls in the past 6 months as a result of her 'legs giving out.' Pt reports that she is typically ambulatory with all ADLs and is able to do some light cooking and cleaning. States that she was walking with a RW at rehab. ADL's Where Assessed: Chair Grooming Assist: Stand By Assist Grooming Deficits: Setup;Brushing Hair UE Dressing Assist: Not Performed(Pt denied dressing) LE Dressing Assist: Not Performed(Pt denied dressing) Toileting Assist: Not Performed(Pt stated had BM prior to session.) Functional Transfer Assist: Maximum Assist(X2) Functional Transfer Deficits: Steadying;Increased Time to Complete;Supervision/ Safety;Verbal Cueing Comment: Pt seated in chair initially. Pt desired to stay seated in chair until after lunch, but agreeable to performing sit to stand transfers. Pt performs sit to stand transfer twice from chair to RW with Max A X2 due to increased shakiness. Pt stands for aprox one to two min until pt expressed increased anxiety and her legs started to buckle, at that time pt requested to sit. Pt in chair with all needs in reach and spouse present for assistance. RN notified. Activity Tolerance Endurance: 2/5 Tolerates 10-20 Minutes Exercise w/Multiple Rests Sitting Balance: 3+/5 Sits w/o UE Support for 30 Seconds or Greater Cognition Overall Cognitive Status: WFL to Adequately Complete Self Care Tasks Safely Cognition Comment: Pt expressed inreased anxiety during stands this day due to increased shakiness. Assessment Assessment: Decreased ADL Status;Decreased Endurance;Decreased Self-Care Trans; Decreased High-Level ADLs Prognosis: Poor;w/Cont OT s/p Acute Discharge Plan Progress: Slow Progress, Decreased Activity Tolerance OT Frequency: 5x/week OT Plan for Next Visit: C transfer and hygiene after BM ADL Goals Patient Will Perform Grooming: Standing at Sink;w/ Stand By Assist Patient Will Perform LE Dressing: w/ Moderate Assist Patient Will Perform Toileting: w/ Moderate Assist Functional Transfer Goals Pt Will Transfer To Bedside Commode: w/ Minimum Assist OT Discharge Recommendations OT Discharge Recommendations: Inpatient Setting Equipment Recommendations: Caser Up, Sock José Luis, Long Handled Bath Sponge, Shower Chair(Grab bars; Hand Held Shower Head.) Therapist: Carlyn Avlia Date: 07/06/2018 * Chioma Lacey - 07/06/2018 8:43 AM CDT PHYSICAL THERAPY PROGRESS NOTE MOBILITY: Progressive Mobility Level: Walk in room Distance Walked (feet): 3 ft Level of Assistance: Assist X2 Assistive Device: Walker Time Tolerated: 11-30 minutes Activity Limited By: Weakness SUBJECTIVE: Significant hospital events: Admitted due to pneumonia, hypoxic respiratory failure, persistent metabolic acidosis PMH: chronic respiratory failure, DM, ESLD, GERD, HTN Mental / Cognitive Status: Alert;Oriented;Cooperative Persons Present: Student;Family Pain: Patient has no complaint of pain Ambulation Assist: Independent Mobility in Community with Device(prior to may used a cane in the community) Patient Owned Equipment: Single Point Cane;Roller Walker;Manual Wheelchair Home Situation: Lives with Family Type of Home: House Entry Stairs: 1-2 Stairs;Ramp In-Home Stairs: No Stairs BED MOBILITY/TRANSFERS: Bed Mobility: Supine to Sit: Minimal Assist;Assist with Trunk;Head of Bed Elevated;Use of Rail;Verbal Cues;Requires Extra Time Transfer Type: Sit to/from Stand Other Transfer: Assistance Level: Maximal Assist;x2 People End Of Activity Status: Up in Chair;Nursing Notified;Instructed Patient to Use Call Light;Instructed Patient to Request Assist with Mobility(TABS alarm activated) Comments: Pt was able to perform sit to stand transfer with minimal assistance of 2 persons, however then she began to exhibit global tremors and required maximal assistance + 2nd person assistance to take a few steps over to bedside chair and sit. Discussed with RN the recommendation of performing stand pivot transfers in future with chair next to bed rather than ambulating to chair. GAIT: Gait Distance: 3 feet Gait: Assistance Level: Maximal Assist;x2 People Gait: Assistive Device: Roller Walker Gait: Descriptors: Pace: Slow;Decreased step length;No balance loss ASSESSMENT/PROGRESS: Impaired Mobility Due To: Pain;Decreased Activity Tolerance;Decreased Strength Turning from your back to your side while in a flat bed without using bed rails : A Little Moving from lying on your back to sitting on the side of a flatbed without using bedrails : A Lot Moving to and from a bed to a chair (including a wheelchair): Total Standing up from a chair using your arms (e.g. wheelchair, or bedside chair): Total To walk in hospital room: Total Climbing 3-5 steps with a railing: Total Raw Score: 9 Standardized (T-scale) Score: 25.8 Basic Mobility CMS 0-100%: 77.59 CMS G Code Modifier for Basic Mobility: CL GOALS: Goal Formulation: With Patient Time For Goal Achievement: 7 days Patient Will Go Supine To/From Sit: w/ Minimal Assist, Partly Met(NT for HOB flat) Patient Will Transfer Sit to Stand: w/ Minimal Assist, Ongoing Patient Will Ambulate: 11-30 Feet, w/ Walker, w/ Minimal Assist Patient Will Sit Edge Of Bed: 6-10 Minutes, w/ Stand By Assist, Ongoing PLAN: Treatment Interventions: Mobility Training;Strengthening;Endurance Training Plan Frequency: 5 Days per Week PT Plan for Next Visit: Progress sit to stand transfers, pre-gait activities with bed/chair behind pt, initiate B LE exercise program. 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 Prior to transfer had been in the hospital for a week with pneumonia requiring intubation, weaned to 2 L O2 prior to transfer. She completed a course of Zosyn for possible pneumonia on 06/27. Currently on lasix gtt, now diuresing well. Volume overload Acute on chronic diastolic heart failure Pulmonary hypertension, likely owing to left heart disease, chronic hypoxia/OHS/ NABIL Hypertension - Echo with LVEF 70%, unable to assess diastolic fillling, normal RV, elevated CVP>15 mmHg, mild to moderate MS, estimated PASP 62 mmHg - Admission CXR with evidence of volume overload - pulmonary vascular congestion , small to moderate L pleural effusion, cardiomegaly, BNP 967. - Was on Lasix gtt @ 10 mg/hr, switched to Lasix 40mg IV tid on 07/05 - Strict I/Os, daily weights, low Na diet with 1.5L fluid restriction. - BID BMPs, keep K>4, Mg >2; replete as needed - Holding lisinopril due to MARIN; should discontinue permanently with her decompensated cirrhosis - Continue metoprolol 12.5 mg bid and spironolactone - Cardiology following, appreciate their assistance - Weight from 321 to 277. Likely goal weight 275lb - Likely will be switched to po diuretics today Acute on chronic hypoxic respiratory failure, improved - Completed 10 day course of antibiotics (vancomycin and zosy)n for HCAP. Intubated at OSH, extubated prior to transfer, now on MARINE ENGINE MECHANIC 2 L. Due to volume overload +/- infection. - Diuresis as above - Incentive spirometry Acute kidney injury, improving - Suspect cardiorenal physiology, as Cr of 1.7-1.9 improving steadily with diuresis - Monitor renal function H/o ITP s/p splenectomy (age 6) Recurrent thrombocytopenia - Follows with [facility] - Dr. Moran - Continue eltrombopag, had been held earlier at OSH; withdrawalislikely the cause of worsening plt count. Now resumed - Holding heparin, although HIT score 3 and low suspicion of HIT - Hematology following, appreciate input - Daily hemolysis/DIC labs for now - Platelets remains low, but per Hematology no indication for IVIG or transfusion unless bleeding, or planned for surgical procedures - Have sent type/screen, consented for transfusion if needed - Plan to follow CBC twice weekly after discharged and follow up with Persistent leukocytosis, chronic ~17-20k, afebrile, likely related to prior splenectomy - No evidence of infection Decompensated cirrhosis - Due to MCGOWAN, HCV. Complicated by HE. No ascites on abdominal US 06/09/18; liver nodule as below; AFP 3 05/2018. Not a candidate for OLT due to BMI. S/p treatment for HCV with interferon and ribavirin 2012 with SVR. No prior EGD for EV screening on file. - Diuresis as above - MARINE ENGINE MECHANIC on lactulose, rifaximin - Was switched from lactulose to miralax due to abdominal cramping with improvement in symptoms. Will increase frequency of miralax to promote 2-3 bowel movements daily - Follow up with Hepatology arranged Liver nodule - Abdominal US 06/09/18 with 3.9 x 1.4 x 2.7 cm nodule with absent blood flow in between L liver lobe and pancreas - CT abdomen: more consistent with large lymph node. Low suspicion for malignancy. Recommended f/u in 3-6 months NABIL, OHS - Required rescue Bipap in the MICU. Started on autopap at night Type 2 diabetes - A1c 5.8% 06/08/18 - Continue lantus 40 un qhs, aspart 8 un tid with meals, low dose sliding scale aspart Peripheral neuropathy - Continue home tizanidine -Havechangedgabapentin to pregabalin 75 mg bid - Currently on oxycodone as well, wean as tolerated - Pain mgmt following Abnormal cosynotropinstimulation test - Cortisol 2.7 on random draw. ACTH stim test with baseline- 1.1, 30min 7.2, 60min 9.9. Endo consulted due to abnormal stim test - Will need repeat in outpatient setting Depression - Continue home amitriptyline and duloxetine FEN - No IVF - Low Na diet - Mild hypomagnesemia, replaced as needed VTE proph: SCDs, no heparin products due to thrombocytopenia Code status: Full code Disposition:continue inpatient admission. Plan for discharge back to Rehab once medically stable. Subjective Niecy Richey is a 52 y.o. female. Patient complaints of weakness, mild shakes when getting up. No fever, chills, chest pain. Shortness of breath is improving. No abdominal discomfort since switched to miralax. Had only one bowel movement yesterday. Medications Scheduled Meds: amitriptyline (ELAVIL) tablet 25 mg 25 mg Oral QHS duloxetine DR (CYMBALTA) capsule 30 mg 30 mg Oral QDAY eltrombopag (PROMACTA) tab 100 mg [Patient's Own Medication] 100 mg Oral QDAY() furosemide (LASIX) injection 40 mg 40 mg Intravenous TID insulin aspart U-100 (NOVOLOG FLEXPEN) injection PEN 0-6 Units 0-6 Units Subcutaneous ACHS (22) insulin aspart U-100 (NOVOLOG FLEXPEN) injection PEN 8 Units 8 Units Subcutaneous TID w/ meals insulin glargine (LANTUS SOLOSTAR, BASAGLAR) injection PEN 40 Units 40 Units Subcutaneous QHS() magnesium oxide (MAG-OX) tablet 400 mg 400 mg Oral BID metoprolol tartrate (LOPRESSOR) tablet 12.5 mg 12.5 mg Oral BID nystatin (NYSTOP) topical powder Topical BID polyethylene glycol 3350 (MIRALAX) packet 17 g 1 packet Oral BID pregabalin (LYRICA) capsule 75 mg 75 mg Oral BID rifAXIMin (XIFAXAN) tablet 550 mg 550 mg Oral BID spironolactone (ALDACTONE) tablet 25 mg 25 mg Oral QDAY vitamins, multi w/minerals tablet 1 tablet 1 tablet Oral QDAY Continuous Infusions: PRN and Respiratory Meds:acetaminophen Q6H PRN, alteplase PRN (Concession Attendant from Rx) , ondansetron Q8H PRN, oxyCODONE Q6H PRN, tiZANidine Q8H PRN Objective: Vital Signs: Last Filed Vital Signs: 24 Hour Range BP: 147/54 (07/06 341) Temp: 36.6 C (97.8 F) (07/06 341) Pulse: 71 (07/06 341) Respirations: 20 PER MINUTE (07/06 341) SpO2: 95 % (07/06 341) O2 Delivery: Nasal Cannula (07/06 341) Height: 170.2 cm (67.01") (07/05 744) BP: (117-147)/(53-74) Temp: [36.6 C (97.8 F)-36.9 C (98.4 F)] Pulse: [62-71] Respirations: [16 PER MINUTE-20 PER MINUTE] SpO2: [93 %-100 %] O2 Delivery: Nasal Cannula Vitals: 07/04/18 0600 07/05/18 0745 07/06/18 0352 Weight: 130.1 kg (286 lb 13.1 oz) 127.6 kg (281 lb 4.9 oz) 125.8 kg (277 lb 5.4 oz) Intake/Output Summary: (Last 24 hours) Intake/Output Summary (Last 24 hours) at 07/06/2018 0619 Last data filed at 07/06/2018 0500 Gross per 24 hour Intake 1432 ml Output 4775 ml Net -3343 ml Stool Occurrence: 0 Physical Exam GENERAL: calm, cooperative, no acute distress HEAD and NECK: EOMI, PERRL, neck supple CARDIOVASCULAR: normal rate, regular rhythm, no murmurs, rubs, or gallops. PULMONARY: lungs clear to auscultation bilaterally - no rhonchi, rales, wheezing. @L O2 ABDOMEN: soft, nontender, nondistended, no rebound or guarding GENITOURINARY: + nichole in place EXTREMITIES: extremities warm, well-perfused, 1+ LE edema. Normal peripheral pulses. SKIN: no rashes on exposed skin Lab Review 24-hour labs: Results for orders placed or performed during the hospital encounter of (from the past 24 hour(s)) POC GLUCOSE Collection Time: 07/05/18 7:48 AM Result Value Ref Range Glucose, POC 77 70 - 100 MG/DL POC GLUCOSE Collection Time: 07/05/18 11:20 AM Result Value Ref Range Glucose, POC 99 70 - 100 MG/DL BASIC METABOLIC PANEL Collection Time: 07/05/18 12:55 PM Result Value Ref Range Sodium 141 137 - 147 MMOL/L Potassium 4.4 3.5 - 5.1 MMOL/L Chloride 94 (L) 98 - 110 MMOL/L CO2 43 (H) 21 - 30 MMOL/L Anion Gap 4 3 - 12 Glucose 109 (H) 70 - 100 MG/DL Blood Urea Nitrogen 31 (H) 7 - 25 MG/DL Creatinine 1.24 (H) 0.4 - 1.00 MG/DL Calcium 9.4 8.5 - 10.6 MG/DL eGFR Non 45 (L) >60 mL/min eGFR 55 (L) >60 mL/min POC GLUCOSE Collection Time: 07/05/18 5:24 PM Result Value Ref Range Glucose, POC 110 (H) 70 - 100 MG/DL POC GLUCOSE Collection Time: 07/05/18 9:16 PM Result Value Ref Range Glucose, POC 176 (H) 70 - 100 MG/DL PROTIME INR (PT) Collection Time: 07/06/18 3:35 AM Result Value Ref Range INR 1.6 (H) 0.8 - 1.2 PTT (APTT) Collection Time: 07/06/18 3:35 AM Result Value Ref Range APTT 29.6 24.0 - 36.5 SEC CBC AND DIFF Collection Time: 07/06/18 3:35 AM Result Value Ref Range White Blood Cells 26.2 (H) 4.5 - 11.0 K/UL RBC 2.80 (L) 4.0 - 5.0 M/UL Hemoglobin 8.1 (L) 12.0 - 15.0 GM/DL Hematocrit 24.5 (L) 36 - 45 % MCV 87.3 80 - 100 FL MCH 28.7 26 - 34 PG MCHC 32.9 32.0 - 36.0 G/DL RDW 22.7 (H) 11 - 15 % Platelet Count 25 (L) 150 - 400 K/UL MPV 10.8 7 - 11 FL Segmented Neutrophils 57 41 - 77 % Lymphocytes 29 24 - 44 % Monocytes 9 4 - 12 % Eosinophil 5 0 - 5 % ANISO PRESENT HYPO PRESENT POIK PRESENT POLY PRESENT Ovalocyte PRESENT Schistocyte PRESENT Target PRESENT [place] Bodies PRESENT Platelet Estimate MKD DEC Absolute Neutrophil Count Manual 14.93 (H) 1.8 - 7.0 K/UL COMPREHENSIVE METABOLIC PANEL Collection Time: 07/06/18 3:35 AM Result Value Ref Range Sodium 143 137 - 147 MMOL/L Potassium 4.3 3.5 - 5.1 MMOL/L Chloride 96 (L) 98 - 110 MMOL/L Glucose 54 (L) 70 - 100 MG/DL Blood Urea Nitrogen 32 (H) 7 - 25 MG/DL Creatinine 1.26 (H) 0.4 - 1.00 MG/DL Calcium 9.2 8.5 - 10.6 MG/DL Total Protein 5.9 (L) 6.0 - 8.0 G/DL Total Bilirubin 1.5 (H) 0.3 - 1.2 MG/DL Albumin 3.1 (L) 3.5 - 5.0 G/DL Alk Phosphatase 84 25 - 110 U/L AST (SGOT) 32 7 - 40 U/L CO2 42 (H) 21 - 30 MMOL/L ALT (SGPT) 15 7 - 56 U/L Anion Gap 5 3 - 12 eGFR Non 44 (L) >60 mL/min eGFR 54 (L) >60 mL/min MAGNESIUM Collection Time: 07/06/18 3:35 AM Result Value Ref Range Magnesium 2.1 1.6 - 2.6 mg/dL PHOSPHORUS Collection Time: 07/06/18 3:35 AM Result Value Ref Range Phosphorus 3.9 2.0 - 4.5 MG/DL Point of Care Testing (Last 24 hours) Radiology and other Diagnostics Review: Pertinent radiology reviewed. Rodrigo Soler MD Pager [phone] * Eusebia Rowe RN - 07/06/2018 6:17 AM CDT Heart Failure Nursing Progress Note Admission Date: 06/24/2018 LOS: 12 days Admission Weight: (!) 146 kg (321 lb 14 oz) Most recent weights (inpatient): Vitals: 07/04/18 0600 07/05/18 0745 07/06/18 0352 Weight: 130.1 kg (286 lb 13.1 oz) 127.6 kg (281 lb 4.9 oz) 125.8 kg (277 lb 5.4 oz) Weight change from previous day: - 4lbs Fluid restriction ordered: 1.5L Intake/Output Summary: (Last 24 hours) Intake/Output Summary (Last 24 hours) at 07/06/2018 0618 Last data filed at 07/06/2018 0500 Gross per 24 hour Intake 1432 ml Output 4775 ml Net -3343 ml Is patient incontinent No Anticipated discharge date: 07/07 Discharge goals: return to baseline Daily Assessment of Patient Stated Goals: Short Term Goal Identified by patient (Short Term=during hospitalization): Continue following plan of care * Weston Russell RN - 07/05/2018 4:32 PM CDT Heart Failure Nursing Progress Note Admission Date: 06/24/2018 LOS: 11 days Admission Weight: (!) 146 kg (321 lb 14 oz) Most recent weights (inpatient): Vitals: 07/03/18 0511 07/04/18 0600 07/05/18 0745 Weight: 130.8 kg (288 lb 5.8 oz) 130.1 kg (286 lb 13.1 oz) 127.6 kg (281 lb 4.9 oz) Weight change from previous day: 5 pounds Fluid restriction ordered: 1.5 L FR Intake/Output Summary: (Last 24 hours) Intake/Output Summary (Last 24 hours) at 07/05/2018 1605 Last data filed at 07/05/2018 1535 Gross per 24 hour Intake 1411.98 ml Output 5225 ml Net -3813.02 ml Is patient incontinent No Anticipated discharge date: ongoing Discharge goals: return to baseline Daily Assessment of Patient Stated Goals: Short Term Goal Identified by patient (Short Term=during hospitalization): Continue following plan of care * Jai Farrar, - 07/05/2018 3:08 PM CDT RT Adult Assessment Note NAME:Niecy Richey :1965 AGE: 52 y.o. ADMISSION DATE: 06/24/2018 DAYS ADMITTED: LOS: 11 days RT Treatment Plan: Protocol Plan: Procedures PAP: Place a nursing order for "IS Q1h While Awake" for any of Lung Expansion indicators Oxygen/Humidity: O2 to keep SpO2 > 95% Monitoring: Pulse oximetry BID & PRN Comment: Home O2 @ 2L; Hb - 7.8 Additional Comments: Impressions of the patient: Pt resting in bed, wearing cannula @ 3L, no respiratory distress Intervention(s)/outcome(s): Pt Assessed Patient education that was completed: N/A Recommendations to the care team: N/A Vital Signs: Pulse: 68 RR: 18 PER MINUTE SpO2: 93 % O2 Device: Cannula Liter Flow: 3 Lpm Respiratory Effort: Non-Labored * RodriguezHaley, RD - 07/05/2018 2:32 PM CDT CLINICAL NUTRITION Clinical Nutrition Follow-Up Summary NAME:Niecy Richey :1965 AGE: 52 y.o. ADMISSION DATE: 06/24/2018 DAYS ADMITTED: LOS: 11 days Nutrition Assessment of Patient: Malnutrition Assessment: Malnutrition present Current Oral Intake: Improving Estimated Calorie Needs: 1800 (25 kcals/kg Desired WT 72kg) Estimated Protein Needs: 108g (1.5 g/kg Desired WT 72kg) Oral Diet Order: Cardiac, Diabetic 2235-1393 Kcal/day (60 g Carb/meal, 30 g Carb /HS snack), 1500 mL/Day Fluid Restriction ICD-10 code E43: Acute illness/Severe malnutrition Moderate loss of body fat, Moderate loss of muscle mass, Moderate to severe fluid accumulation Loss of Subcutaneous Fat: Yes Severe Orbital Muscle Wasting: Yes Moderate Interosseous Edema: Yes Moderate Left, Right, Lower Extremeties(pedal) Malnutrition Interventions: Continue to encourage good protein intake with every meal and stressed the importance of low sodium diet modification. 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 Prior to transfer had been in the hospital for a week with pneumonia requiring intubation, weaned to 2 L O2 prior to transfer. Floor transfer 06/29. Pt reported previously that her appetite had been poor since her first admission to [facility] 06/07-06/15. Nausea is a limiting factor at times, but zofran helps. She feels this has improved but still not back to baseline. Ate hamburger, mashed potatoes and gravy with jello at lunch (100% per RD observation). 06/07 admit wt 283#, c/w with pt's reported usual WT 280#. Now 281lbs after aggressive diuresis on lasix gtt which was switched to IV bolus today. Has 2+ BLE edema (previously 3+). Meets criteria for malnutrition based on muscle and fat loss, decreased po intakes. Remains on MVI with visible signs of micronutrient deficiencies (glossitis). She is aware of her high protein needs and has been including protein sources with meals. Does not like Boost. We discussed weight loss since patient had questions about transplant criteria. Encouraged weight loss of 1lb per week; decreasing calorie intake by 500kcals per day, however stressed the importance of high protein needs and physical activity at a safe level deemed appropriate by MD and/or PT. Recommendation: Continue current diet order as tolerated. Please encourage PO intake high protien foods q2-3hrs while awake. Intervention / Plan: Monitor PO intake adequacy/tolerance. Monitor wts, labs, meds, GI health. Nutrition Diagnosis: Inadequate oral intake Etiology: poor appetite/PO intake Signs & Symptoms: pt report Goals: Patient to consume >50% of meals Time Frame: Throughout Stay Status: Met;new goal established Patient to consume >85% of meals Time Frame: Throughout Stay Haley Frias RD, LD *0300 * [place] - 07/05/2018 2:10 PM CDT PHYSICAL THERAPY PROGRESS NOTE MOBILITY: Mobility Progressive Mobility Level: Active transfer to chair Level of Assistance: Assist X2 Assistive Device: Walker SUBJECTIVE: Subjective Significant hospital events: Admitted due to pneumonia, hypoxic respiratory failure, persistent metabolic acidosis PMH: chronic respiratory failure, DM, ESLD, GERD, HTN Mental / Cognitive Status: Alert;Oriented;Cooperative Persons Present: RehabTechnician Pain: Patient has no complaint of pain Ambulation Assist: Independent Mobility in Community with Device(prior to may used a cane in the community) Patient Owned Equipment: Single Point Cane;Roller Walker;Manual Wheelchair Home Situation: Lives with Family Type of Home: House Entry Stairs: 1-2 Stairs;Ramp In-Home Stairs: No Stairs BED MOBILITY/TRANSFERS: Bed Mobility/Transfers Bed Mobility: Supine to Sit: Standby Assist;Head of Bed Elevated;Use of Rail Transfer Type: Sit to/from Stand Transfer: Assistance Level: To/From;Bed;Minimal Assist;x2 People Transfer: Assistive Device: Roller Walker Transfers: Type Of Assistance: Verbal Cues;For Safety Considerations;For Balance ;For Strength Deficit Other Transfer Type: Sit to/from Stand Other Transfer: Assistance Level: To/From;Bed Other Transfer: Assistive Device: Roller Walker Other Transfer: Type Of Assistance: Verbal Cues;For Safety Considerations;For Strength Deficit;For Balance End Of Activity Status: Up in Chair;Nursing Notified;Instructed Patient to Use Call Light;Instructed Patient to Request Assist with Mobility(TABS alarm activated) Comments: with initial stands, patient with significant LE jerking. patient unable to control and at a high risk for falls and knee buckling. practiced several sit to stands. patient appears anxious with standing. no notable shaking or jerking noted with pivot transfer GAIT: Gait Comments: not safe to attempt at this time. poor proximal stability and LE jerking- high risk for falls ACTIVITY/EXERCISE: Activity / Exercise Comments: repeated sit to stand transfer practice ASSESSMENT/PROGRESS: Assessment/Progress Impaired Mobility Due To: Pain;Decreased Activity Tolerance;Decreased Strength Assessment/Progress: Should Improve w/ Continued PT Comments: patient willing to mobility. unsure if there is some underlying anxiety with mobility. patient demosntrates generalized deconditioning and could continue to benefit from therapy. still not safe to ambulate at this time , but will conitnue to progress mobility as able. AM-PAC 6 Clicks Basic Mobility Inpatient Turning from your back to your side while in a flat bed without using bed rails : A Little Moving from lying on your back to sitting on the side of a flatbed without using bedrails : A Little Moving to and from a bed to a chair (including a wheelchair): A Little Standing up from a chair using your arms (e.g. wheelchair, or bedside chair): A Little To walk in hospital room: A Lot Climbing 3-5 steps with a railing: Total Raw Score: 15 Standardized (T-scale) Score: 36.97 Basic Mobility [facility] 0-100%: 50.4 [facility] G Code Modifier for Basic Mobility: CK GOALS: Goals Goal Formulation: With Patient Time For Goal Achievement: 7 days Patient Will Go Supine To/From Sit: w/ Minimal Assist, Partly Met(NT for HOB flat) Patient Will Transfer Sit to Stand: w/ Minimal Assist, Ongoing Patient Will Ambulate: 11-30 Feet, w/ Walker, w/ Minimal Assist Patient Will Sit Edge Of Bed: 6-10 Minutes, w/ Stand By Assist, Ongoing PLAN: Plan Treatment Interventions: Mobility Training;Strengthening;Endurance Training Plan Frequency: 5 Days per Week PT Plan for Next Visit: sit to stand transfer practice, pre-gait activities, neurogym, master vest? RECOMMENDATIONS: PT Discharge Recommendations PT Discharge Recommendations: Inpatient Setting;to address deficits, maximize function and improve safety Equipment Recommendations: Patient owns necessary equipment Recommend ongoing assistance for: Transfers;Bed mobility;Ambulation Therapist: [place] Date: 07/05/2018 * Alivia Hopper APRN - 07/05/2018 12:02 PM CDT General Progress Note Name: Niecy Milan Richey Today's Date: 07/05/2018 Admission Date: 06/24/2018 LOS: 11 days Assessment/Plan: Active Problems: End stage liver disease (HCC) Metabolic acidosis Acidosis Severe malnutrition (HCC) Niecy Dnun a 52 y.o.femalewith PMHofchronic respiratory failure with hypoxia, on home oxygen therapy, DMT2,end stage liver disease, GERD, hx of hepatitis C, HTN, MCGOWAN, ITP s/psplenectomy.She was transferred to on or further treatment of hypoxic respiratory failure, persistent metabolic acidosis. 1. Thrombocytopenia -follows with . -long standing history with splenectomy at age 6 and treatment with steroids and Rituxan -Promacta 100mg po daily was held @ OSH 06/18; restarted 06/26. -zosyn/vancomycin stopped @ OSH 06/27 -IPF 40% suggests appropriate production -smear without schistocytes, normal platelet morphology -STEVEN negative, haptoglobin wnl, LDH 396, TV 1.3 -15K today 07/05 2. Acute hypoxic respiratory failure with baseline O2 requirement of 2L NC -06/24 CXR: Findings consistent with CHF/volume overload including cardiomegaly, pulmonary vascular congestion and small to moderate left pleural effusion. Mixed bilateral pulmonary opacities may represent edema and/or pneumonia. -Echo with LVEF 70%, unable to assess diastolic fillling, normal RV, elevated CVP>15 mmHg, mild to moderate MS, estimated PASP 62 mmHg -completed 10 day coarse of vancomycin/zosyn @ OSH for HCAP -BNP 967 on admit -lasix IV Recommendations: -continued to follow daily CBC, no indication to treat ITP unless platelets <10K , bleeding or for a procedure -Ok for discharge from our standpoint, based on platelet count at time of discharge will recommend how often to obtain CBCs -continue Promacta -will arrange f/u with at discharge (patient requesting same day as hepatology appointment) Discussed with . Subjective Niecy Richey is a 52 y.o. female. Patient continues to feel better daily, breathing has improved, LE edema much improved. Denies any signs of bleeding, no headaches. Is "done" mentally and ready to go home. Medications Scheduled Meds: amitriptyline (ELAVIL) tablet 25 mg 25 mg Oral QHS duloxetine DR (CYMBALTA) capsule 30 mg 30 mg Oral QDAY eltrombopag (PROMACTA) tab 100 mg [Patient's Own Medication] 100 mg Oral QDAY(06) furosemide (LASIX) injection 40 mg 40 mg Intravenous TID insulin aspart U-100 (NOVOLOG FLEXPEN) injection PEN 0-6 Units 0-6 Units Subcutaneous ACHS (22) insulin aspart U-100 (NOVOLOG FLEXPEN) injection PEN 8 Units 8 Units Subcutaneous TID w/ meals insulin glargine (LANTUS SOLOSTAR, BASAGLAR) injection PEN 40 Units 40 Units Subcutaneous QHS(22) magnesium oxide (MAG-OX) tablet 400 mg 400 mg Oral BID metoprolol tartrate (LOPRESSOR) tablet 12.5 mg 12.5 mg Oral BID nystatin (NYSTOP) topical powder Topical BID polyethylene glycol 3350 (MIRALAX) packet 17 g 1 packet Oral BID pregabalin (LYRICA) capsule 75 mg 75 mg Oral BID rifAXIMin (XIFAXAN) tablet 550 mg 550 mg Oral BID spironolactone (ALDACTONE) tablet 25 mg 25 mg Oral QDAY vitamins, multi w/minerals tablet 1 tablet 1 tablet Oral QDAY Continuous Infusions: PRN and Respiratory Meds:acetaminophen Q6H PRN, alteplase PRN (Concession Attendant from Rx) , ondansetron Q8H PRN, oxyCODONE Q6H PRN, tiZANidine Q8H PRN Review of Systems: A 14 point review of systems was negative except for: as per subjective Objective: Vital Signs: Last Filed Vital Signs: 24 Hour Range BP: 132/62 (07/05 1113) Temp: 36.8 C (98.2 F) (07/05 1113) Pulse: 62 (07/05 1113) Respirations: 18 PER MINUTE (07/05 1113) SpO2: 94 % (07/05 1113) O2 Delivery: Nasal Cannula (07/05 1113) BP: (108-146)/(52-74) Temp: [36.6 C (97.9 F)-36.8 C (98.2 F)] Pulse: [58-77] Respirations: [16 PER MINUTE-20 PER MINUTE] SpO2: [92 %-98 %] O2 Delivery: Nasal Cannula Vitals: 07/03/18 0511 07/04/18 0600 07/05/18 0745 Weight: 130.8 kg (288 lb 5.8 oz) 130.1 kg (286 lb 13.1 oz) 127.6 kg (281 lb 4.9 oz) Intake/Output Summary: (Last 24 hours) Intake/Output Summary (Last 24 hours) at 07/05/2018 1202 Last data filed at 07/05/2018 1115 Gross per 24 hour Intake 1487.98 ml Output 5075 ml Net -3587.02 ml Stool Occurrence: 0 Physical Exam General: A&O, no apparent distress, in the chair Head: Normocephalic, without obvious abnormality, atraumatic Eyes: PERRL, anicteric sclera, conjunctiva and lids normal Nose: Nares normal. Septum midline. Mucosa normal. No drainageor sinus tenderness Neck: Supple, no rigidity Oropharynx: No erythema, exudates, lesions or petechiae Respiratory: Clear to ausculation bilaterally, no crackles/rhonchi/wheezes Cardiovascular: Regular rate, No murmurs, rubs, clicks or gallops Abdomen: BS normal all quadrants, soft, non-tender, non-distended, obese Neurological: No focal deficits. Normal strength and sensation throughout Extremities: BLE peripheral edema, no cyanosis or clubbing Pulses: 3+ and symmetric, all extremities Skin: Color, texturs and turgor normal. No rashes or lesions Psychosocial: Appropriate Lab Review 24-hour labs: Results for orders placed or performed during the hospital encounter of (from the past 24 hour(s)) POC GLUCOSE Collection Time: 07/04/18 12:08 PM Result Value Ref Range Glucose, POC 125 (H) 70 - 100 MG/DL BASIC METABOLIC PANEL Collection Time: 07/04/18 1:20 PM Result Value Ref Range Sodium 138 137 - 147 MMOL/L Potassium 4.8 3.5 - 5.1 MMOL/L Chloride 93 (L) 98 - 110 MMOL/L CO2 39 (H) 21 - 30 MMOL/L Anion Gap 6 3 - 12 Glucose 150 (H) 70 - 100 MG/DL Blood Urea Nitrogen 31 (H) 7 - 25 MG/DL Creatinine 1.12 (H) 0.4 - 1.00 MG/DL Calcium 9.1 8.5 - 10.6 MG/DL eGFR Non 51 (L) >60 mL/min eGFR >60 >60 mL/min POC GLUCOSE Collection Time: 07/04/18 6:38 PM Result Value Ref Range Glucose, POC 78 70 - 100 MG/DL POC GLUCOSE Collection Time: 07/04/18 9:21 PM Result Value Ref Range Glucose, POC 148 (H) 70 - 100 MG/DL POC GLUCOSE Collection Time: 07/04/18 10:20 PM Result Value Ref Range Glucose, POC 128 (H) 70 - 100 MG/DL PROTIME INR (PT) Collection Time: 07/05/18 4:40 AM Result Value Ref Range INR 1.6 (H) 0.8 - 1.2 PTT (APTT) Collection Time: 07/05/18 4:40 AM Result Value Ref Range APTT 33.0 24.0 - 36.5 SEC COMPREHENSIVE METABOLIC PANEL Collection Time: 07/05/18 4:40 AM Result Value Ref Range Sodium 142 137 - 147 MMOL/L Potassium 4.2 3.5 - 5.1 MMOL/L Chloride 96 (L) 98 - 110 MMOL/L Glucose 60 (L) 70 - 100 MG/DL Blood Urea Nitrogen 30 (H) 7 - 25 MG/DL Creatinine 1.20 (H) 0.4 - 1.00 MG/DL Calcium 8.8 8.5 - 10.6 MG/DL Total Protein 5.7 (L) 6.0 - 8.0 G/DL Total Bilirubin 1.5 (H) 0.3 - 1.2 MG/DL Albumin 3.0 (L) 3.5 - 5.0 G/DL Alk Phosphatase 81 25 - 110 U/L AST (SGOT) 33 7 - 40 U/L CO2 42 (H) 21 - 30 MMOL/L ALT (SGPT) 14 7 - 56 U/L Anion Gap 4 3 - 12 eGFR Non 47 (L) >60 mL/min eGFR 57 (L) >60 mL/min MAGNESIUM Collection Time: 07/05/18 4:40 AM Result Value Ref Range Magnesium 1.8 1.6 - 2.6 mg/dL PHOSPHORUS Collection Time: 07/05/18 4:40 AM Result Value Ref Range Phosphorus 4.0 2.0 - 4.5 MG/DL POC GLUCOSE Collection Time: 07/05/18 5:36 AM Result Value Ref Range Glucose, POC 65 (L) 70 - 100 MG/DL POC GLUCOSE Collection Time: 07/05/18 5:51 AM Result Value Ref Range Glucose, POC 73 70 - 100 MG/DL CBC AND DIFF Collection Time: 07/05/18 5:59 AM Result Value Ref Range White Blood Cells 23.7 (H) 4.5 - 11.0 K/UL RBC 2.75 (L) 4.0 - 5.0 M/UL Hemoglobin 7.8 (L) 12.0 - 15.0 GM/DL Hematocrit 24.1 (L) 36 - 45 % MCV 87.7 80 - 100 FL MCH 28.4 26 - 34 PG MCHC 32.4 32.0 - 36.0 G/DL RDW 22.5 (H) 11 - 15 % Platelet Count 15 (LL) 150 - 400 K/UL MPV 7.7 7 - 11 FL Neutrophils 67 41 - 77 % Lymphocytes 15 (L) 24 - 44 % Monocytes 12 4 - 12 % Eosinophils 4 0 - 5 % Basophils 2 0 - 2 % Absolute Neutrophil Count 16.00 (H) 1.8 - 7.0 K/UL Absolute Lymph Count 3.50 1.0 - 4.8 K/UL Absolute Monocyte Count 2.80 (H) 0 - 0.80 K/UL Absolute Eosinophil Count 1.00 (H) 0 - 0.45 K/UL Absolute Basophil Count 0.50 (H) 0 - 0.20 K/UL POC GLUCOSE Collection Time: 07/05/18 7:48 AM Result Value Ref Range Glucose, POC 77 70 - 100 MG/DL POC GLUCOSE Collection Time: 07/05/18 11:20 AM Result Value Ref Range Glucose, POC 99 70 - 100 MG/DL Point of Care Testing (Last 24 hours) Radiology and other Diagnostics Review: Pertinent radiology reviewed. 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 Pt has been admitted to transferring hospital for ~1 week with pneumonia requiring intubation, ultimately weaned to 2L NC. Precautions: O2 Requirement(2L NC; Nichole; IV) Pain / Complaints: Patient agrees to participate in therapy Objective Psychosocial Status: Willing and Cooperative to Participate Persons Present: Net Developer Contract; Nursing Staff (To unhook IV) Home Living Type of Home: House Home Layout: One Level;Ramped Entrance;Able to Live on Main Level w/Bedrm/ Bathrm Access Bathroom Shower / Tub: Walk-in Shower Bathroom Toilet: Standard Home Equipment: Walker;Cane;Wheelchair-manual Prior Function Level Of Struthers: Independent with ADLs and functional transfers;Needed assistance with homemaking Lives With: Spouse;Son(DIL, grandchild.) Receives Help From: Family(All family members work during the day.) Other Function Comments: Pt transferred to [facility] from an outside subacute rehab within a hospital. Was ambulating with a SPC prior to recent hospital admissions. Uses a manual wheelchair within the community. States that she has had 3 falls in the past 6 months as a result of her 'legs giving out.' Pt reports that she is typically ambulatory with all ADLs and is able to do some light cooking and cleaning. States that she was walking with a RW at rehab. ADL's Where Assessed: Edge of Bed;Chair UE Dressing Assist: Moderate Assist UE Dressing Deficits: Increased Time To Complete;Thread RUE;Pull Around Back; Pull Down In Back;Fasteners;Setup LE Dressing Assist: Maximum Assist LE Dressing Deficits: Don/Doff R Sock;Don/Doff L Sock;Thread RLE Into Pants; Thread LLE Into Pants;Pull Up Over Hips;Steadying;Requires Assistive Device for Steadying;Verbal Cueing;Supervision/Safety;Increased Time To Complete;Setup Toileting Assist: Not Performed(Pt denied need for toilet.) Functional Transfer Assist: Moderate Assist(X2) Functional Transfer Deficits: Steadying;Increased Time to Complete;Supervision/ Safety;Verbal Cueing Comment: Pt in bed initially. Pt transfers from supine to EOB with elevated HOB and SBA for safety. Pt dons pants seated EOB with assistance to thread LLE and pull around hips. Pt performs sit to stand from EOB to RW with Mod A X2 for balance. Pt amb aprox 3 feet to chair with Mod A X2 and RW. Pt has very shaky legs this day and seemed to have knee buckling. Pt did not loose her balance but expressed anxiety during transfer. Pt dons button up shirt seated with assistance to thread around back, pull down in back, and button. Pt in chair with all needs in reach. RN notified. Activity Tolerance Endurance: 2/5 Tolerates 10-20 Minutes Exercise w/Multiple Rests Sitting Balance: 3+/5 Sits w/o UE Support for 30 Seconds or Greater Cognition Overall Cognitive Status: WFL to Adequately Complete Self Care Tasks Safely Cognition Comment: Pt expressed anxiety during transfer due to the feeling of her legs buckling. Assessment Assessment: Decreased ADL Status;Decreased Endurance;Decreased Self-Care Trans; Decreased High-Level ADLs Prognosis: Poor;w/Cont OT s/p Acute Discharge Plan Progress: Slow Progress, Decreased Activity Tolerance OT Frequency: 5x/week OT Plan for Next Visit: BSC transfer; Grooming standing at sink with chair behind for safety. ADL Goals Patient Will Perform Grooming: Standing at Sink;w/ Stand By Assist Patient Will Perform LE Dressing: w/ Moderate Assist Patient Will Perform Toileting: w/ Moderate Assist Functional Transfer Goals Pt Will Transfer To Bedside Commode: w/ Minimum Assist OT Discharge Recommendations OT Discharge Recommendations: Inpatient Setting Equipment Recommendations: Caser Up, Sock José Luis, Long Handled Bath Sponge, Shower Chair(Grab bars; Hand Held Shower Head.) Therapist: Carlyn Avila Date: 07/05/2018 * Rodrigo Soler MD - 07/05/2018 6:18 AM CDT General Progress Note Name: Niecy Richey Today's Date: 07/05/2018 Admission Date: 06/24/2018 LOS: 11 days Assessment/Plan: Active Problems: End stage liver disease (HCC) Metabolic acidosis Acidosis Severe malnutrition (HCC) 52 year-old female with 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 Prior to transfer had been in the hospital for a week with pneumonia requiring intubation, weaned to 2 L O2 prior to transfer. She completed a course of Zosyn for possible pneumonia on 06/27. Currently on lasix gtt, now diuresing well. Volume overload Acute on chronic diastolic heart failure Pulmonary hypertension, likely owing to left heart disease, chronic hypoxia/OHS/ [facility] Hypertension - Echo with LVEF 70%, unable to assess diastolic fillling, normal RV, elevated CVP>15 mmHg, mild to moderate MS, estimated PASP 62 mmHg - Admission CXR with evidence of volume overload - pulmonary vascular congestion , small to moderate L pleural effusion, cardiomegaly, BNP 967. - Was on Lasix gtt @ 10 mg/hr, plan to switch to Lasix 40mg IV tid today - Strict I/Os, daily weights, low Na diet with 1.5L fluid restriction. - BID BMPs, keep K>4, Mg >2; replete today - Holding lisinopril due to MARIN; should discontinue permanently with her decompensated cirrhosis - Continue metoprolol 12.5 mg bid. Added spironolactone - Cardiology following, appreciate their assistance - Weight from 321 to 281. Likely goal weight 275lb Acute on chronic hypoxic respiratory failure, improved - Completed 10 day course of antibiotics (vancomycin and zosy)n for HCAP. Intubated at OSH, extubated prior to transfer, now on MARINE ENGINE MECHANIC 2 L. Due to volume overload +/- infection. - Diuresis as above - Incentive spirometry Acute kidney injury, improving - Suspect cardiorenal physiology, as Cr of 1.7-1.9 improving steadily with diuresis - Monitor renal function H/o ITP s/p splenectomy (age 6) Recurrent thrombocytopenia - Follows with [facility] - Dr. Moran - Continue eltrombopag, had been held earlier at OSH; withdrawalislikely the cause of worsening plt count - Holding heparin, although HIT score 3, low suspicion of HIT - Hematology consulted - Daily hemolysis/DIC labs for now - Platelets remains low, but per Hematology no indication for IVIG or transfusion unless bleeding, or planned for surgical procedures - Have sent type/screen, consented for transfusion if needed Persistent leukocytosis ~17-20k, afebrile, likely related to prior splenectomy - chronic Decompensated cirrhosis - Due to MCGOWAN, HCV. Complicated by HE. No ascites on abdominal US 06/09/18; liver nodule as below; AFP 3 05/2018. Not a candidate for OLT due to BMI. S/p treatment for HCV with interferon and ribavirin 2012 with SVR. No prior EGD for EV screening on file. - Diuresis as above - MARINE ENGINE MECHANIC on lactulose, rifaximin - Was switched from lactulose to miralax due to abdominal cramping with improvement in symptoms - Follow up with Hepatology arranged Liver nodule - Abdominal US 06/09/18 with 3.9 x 1.4 x 2.7 cm nodule with absent blood flow in between L liver lobe and pancreas - CT abdomen: more consistent with large lymph node. Low suspicion for malignancy. Recommended f/u in 3-6 months NABIL, OHS - Required rescue Bipap in the MICU. Started on autopap at night Type 2 diabetes - A1c 5.8% 06/08/18 - Continue lantus 40 un qhs, aspart 8 un tid with meals, low dose sliding scale aspart Peripheral neuropathy - Continue home tizanidine -Havechangedgabapentin to pregabalin 75 mg bid - Currently on oxycodone as well, wean as tolerated - Pain mgmt following Abnormal cosynotropinstimulation test - Cortisol 2.7 on random draw. ACTH stim test with baseline- 1.1, 30min 7.2, 60min 9.9. Endo consulted due to abnormal stim test - Will need repeat in outpatient setting Depression - Continue home amitriptyline and duloxetine FEN - No IVF - Low Na diet - Mild hypomagnesemia, will replace VTE proph: SCDs, no heparin products due to thrombocytopenia Code status: Full code Disposition:continue inpatient admission. Plan for discharge back to Rehab once medically stable. Subjective Niecy Richey is a 52 y.o. female. Patient complaints of weakness. No fever, chills, chest pain. Shortness of breath is improving. No abdominal discomfort since switched to miralax. Medications Scheduled Meds: amitriptyline (ELAVIL) tablet 25 mg 25 mg Oral QHS duloxetine DR (CYMBALTA) capsule 30 mg 30 mg Oral QDAY eltrombopag (PROMACTA) tab 100 mg [Patient's Own Medication] 100 mg Oral QDAY(06) insulin aspart U-100 (NOVOLOG FLEXPEN) injection PEN 0-6 Units 0-6 Units Subcutaneous ACHS (22) insulin aspart U-100 (NOVOLOG FLEXPEN) injection PEN 8 Units 8 Units Subcutaneous TID w/ meals insulin glargine (LANTUS SOLOSTAR, BASAGLAR) injection PEN 40 Units 40 Units Subcutaneous QHS(22) metoprolol tartrate (LOPRESSOR) tablet 12.5 mg 12.5 mg Oral BID nystatin (NYSTOP) topical powder Topical BID polyethylene glycol 3350 (MIRALAX) packet 17 g 1 packet Oral BID pregabalin (LYRICA) capsule 75 mg 75 mg Oral BID rifAXIMin (XIFAXAN) tablet 550 mg 550 mg Oral BID spironolactone (ALDACTONE) tablet 25 mg 25 mg Oral QDAY vitamins, multi w/minerals tablet 1 tablet 1 tablet Oral QDAY Continuous Infusions: furosemide (LASIX) 500 mg in 50 mL IV drip syr (max conc) 10 mg/hr ( 1225) PRN and Respiratory Meds:acetaminophen Q6H PRN, alteplase PRN (Concession Attendant from Rx) , ondansetron Q8H PRN, oxyCODONE Q6H PRN, tiZANidine Q8H PRN Objective: Vital Signs: Last Filed Vital Signs: 24 Hour Range BP: 123/53 (07/06 3) Temp: 36.7 C (98 F) (07/06 3) Pulse: 63 (07/06 3) Respirations: 20 PER MINUTE (07/06 3) SpO2: 92 % (07/06 3) O2 Delivery: CPAP/BiPAP (Pt Owned) (07/06 3) BP: (108-144)/(52-77) Temp: [36.6 C (97.9 F)-36.8 C (98.3 F)] Pulse: [58-82] Respirations: [16 PER MINUTE-20 PER MINUTE] SpO2: [92 %-98 %] O2 Delivery: CPAP/BiPAP (Pt Owned) Vitals: 07/03/18 0330 07/03/18 0511 07/04/18 0600 Weight: 133 kg (293 lb 3.4 oz) 130.8 kg (288 lb 5.8 oz) 130.1 kg (286 lb 13.1 oz ) Intake/Output Summary: (Last 24 hours) Intake/Output Summary (Last 24 hours) at 07/05/2018 0618 Last data filed at 07/05/2018 0529 Gross per 24 hour Intake 1155.98 ml Output 4450 ml Net -3294.02 ml Stool Occurrence: 0 Physical Exam GENERAL: calm, cooperative, no acute distress HEAD and NECK: EOMI, PERRL, neck supple CARDIOVASCULAR: normal rate, regular rhythm, no murmurs, rubs, or gallops. PULMONARY: lungs clear to auscultation bilaterally - no rhonchi, rales, wheezing. @L O2 ABDOMEN: soft, nontender, nondistended, no rebound or guarding GENITOURINARY: + nichole in place EXTREMITIES: extremities warm, well-perfused, 1+ LE edema. Normal peripheral pulses. SKIN: no rashes on exposed skin Lab Review 24-hour labs: Results for orders placed or performed during the hospital encounter of (from the past 24 hour(s)) POC GLUCOSE Collection Time: 07/04/18 7:57 AM Result Value Ref Range Glucose, POC 88 70 - 100 MG/DL POC GLUCOSE Collection Time: 07/04/18 12:08 PM Result Value Ref Range Glucose, POC 125 (H) 70 - 100 MG/DL BASIC METABOLIC PANEL Collection Time: 07/04/18 1:20 PM Result Value Ref Range Sodium 138 137 - 147 MMOL/L Potassium 4.8 3.5 - 5.1 MMOL/L Chloride 93 (L) 98 - 110 MMOL/L CO2 39 (H) 21 - 30 MMOL/L Anion Gap 6 3 - 12 Glucose 150 (H) 70 - 100 MG/DL Blood Urea Nitrogen 31 (H) 7 - 25 MG/DL Creatinine 1.12 (H) 0.4 - 1.00 MG/DL Calcium 9.1 8.5 - 10.6 MG/DL eGFR Non 51 (L) >60 mL/min eGFR >60 >60 mL/min POC GLUCOSE Collection Time: 07/04/18 6:38 PM Result Value Ref Range Glucose, POC 78 70 - 100 MG/DL POC GLUCOSE Collection Time: 07/04/18 9:21 PM Result Value Ref Range Glucose, POC 148 (H) 70 - 100 MG/DL POC GLUCOSE Collection Time: 07/04/18 10:20 PM Result Value Ref Range Glucose, POC 128 (H) 70 - 100 MG/DL PROTIME INR (PT) Collection Time: 07/05/18 4:40 AM Result Value Ref Range INR 1.6 (H) 0.8 - 1.2 PTT (APTT) Collection Time: 07/05/18 4:40 AM Result Value Ref Range APTT 33.0 24.0 - 36.5 SEC COMPREHENSIVE METABOLIC PANEL Collection Time: 07/05/18 4:40 AM Result Value Ref Range Sodium 142 137 - 147 MMOL/L Potassium 4.2 3.5 - 5.1 MMOL/L Chloride 96 (L) 98 - 110 MMOL/L Glucose 60 (L) 70 - 100 MG/DL Blood Urea Nitrogen 30 (H) 7 - 25 MG/DL Creatinine 1.20 (H) 0.4 - 1.00 MG/DL Calcium 8.8 8.5 - 10.6 MG/DL Total Protein 5.7 (L) 6.0 - 8.0 G/DL Total Bilirubin 1.5 (H) 0.3 - 1.2 MG/DL Albumin 3.0 (L) 3.5 - 5.0 G/DL Alk Phosphatase 81 25 - 110 U/L AST (SGOT) 33 7 - 40 U/L CO2 42 (H) 21 - 30 MMOL/L ALT (SGPT) 14 7 - 56 U/L Anion Gap 4 3 - 12 eGFR Non 47 (L) >60 mL/min eGFR 57 (L) >60 mL/min MAGNESIUM Collection Time: 07/05/18 4:40 AM Result Value Ref Range Magnesium 1.8 1.6 - 2.6 mg/dL PHOSPHORUS Collection Time: 07/05/18 4:40 AM Result Value Ref Range Phosphorus 4.0 2.0 - 4.5 MG/DL POC GLUCOSE Collection Time: 07/05/18 5:36 AM Result Value Ref Range Glucose, POC 65 (L) 70 - 100 MG/DL POC GLUCOSE Collection Time: 07/05/18 5:51 AM Result Value Ref Range Glucose, POC 73 70 - 100 MG/DL Point of Care Testing (Last 24 hours) Radiology and other Diagnostics Review: Pertinent radiology reviewed. Rodrigo Soler MD Pager [phone] * Susanne Shah, INVESTMENT OFFICER-DAYCARE PROVIDER - 07/05/2018 6:09 AM CDT Cardiology Progress Note Admission Date: 06/24/2018 Today's Date: 07/05/2018 LOS: 11 days Niecy Richey is a 52 y.o. 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 The patient had been admitted at [facility] from 06/07 to 06/15/18 for treatment of CAP with acute hypoxic respiratory failure and ESLD with hepatic encephalopathy. Once stable, she was discharged to [facility] inpatient rehab for ongoing PT/OT. Per patient and family, on 06/23 the patient began to retain fluid and gained 11# in one day. She developed SILVERMAN, weight gain, BLEE, abdominal distension, and lower extremity pain 2/2 bilateral swelling. An echocardiogram was done 06/26/18 revealing LVEF 70%, moderate LA dilation, IVC >15, mild to moderate stenosis that appeared mildly more advanced than previous echo in 08/2017, and severe mitral annular calcification. Cardiology consulted to further evaluate patient. Recommendations: Todays: -Patient remains hypervolemic. Overnight, 4.4 L of urine output, -3.2 L in 24 hours, -27.7 L total. No weight recorded for today, per bed scale weight yesterday patient was 286# with likely goal dry weight around 275#. At this time, we would like to discontinue her Lasix drip and start IV Lasix 40 mg 3 times daily. -Continue Lopressor 12.5 mg twice daily and spironolactone 25 mg daily. -Magnesium 1.8, please replace accordingly with goal >2.0. -Patient encouraged to continue to work with PT. -Continue to monitor on telemetry. Ongoin. BMP bid. Magnesium level daily. Keep Potassium > 4.0 and Magnesium > 2.0. 2. 2000 mg sodium dietary restriction. 3. Fluid Restriction 1.5L Yes 4. Strict I/O. 5. Standing scale daily weight. 6. Social Media Content Specialist consultation to discuss sodium restricted diet recommended. 7. Pharmacy/Medication counseling recommended. 8. Case Management/Social Work recommended. 9. Physical Therapy consult recommended. 10. Follow Up: appointment with a member of the HF team or PCP within 7 calendar days of discharge. Patient seen and plan formulated with Dr. Bruce Sims. Plan discussed with primary Dr. Soler. GISELA Chong Telemetry: Sinus rhythm 60s Assessment/ Plan: Acute on chronic hypoxic/hypercarbic respiratory failure 06/07 - 06/15: treated for CAP at [facility] 06/15 - 06/18: inpatient rehab in [place] 06-18: admitted to ICU for respiratory failure, treated for HCAP with zosyn , escalated to meropenem (unclear why the escalation). Required intubation ~72h at OSH, now down to 2L NC. ABG 7.34/38/76 on 2L NC on 06/24 CXR on arrival with volume overloaded appearance. Primary currently questioning FVOL vs HCAP vs Multi-factorial. Procalcitonin 0.17 on 06/24, was 0.09 in 06/08/18. Patient was treated with Zosyn and vancomycin during admission. Persistent Leukocytosis WBC 27.0on 06/26, improving. Patient remains afebrile Acute diastolicHFpEF, EF: 70% Likely NICM. Major Complications or Comorbidities ([facility]): acute respiratory failure NYHA functional class III (marked limitation of physical activity - comfortable at rest, but less than ordinary activity causes symptoms of HF e.g., getting dressed or standing from a sitting position), ACC Stage C (structural heart disease with prior or current symptoms of HF). She presents with signs of hypervolemiawithout signs of low flow state. Admission BNP: 967 Chest x ray 06/24/18: Findings consistent with CHF/volume overload including cardiomegaly, pulmonary vascular congestion and small to moderate left pleural effusion. Echocardiogram 06/26/18revealed LVEF 70%, normal size and shape LV, concentric remodeling, unable to assess diastolic function. RV normal size and EF. LA moderately dilated. RA normal size. IVC >15. Calcified thickening of mitral leaflets. Mild to moderate stenosis which appears increased in comparison to previous echo in 08/2016. There is trace MR and severe mitral annular calcification. Mild TR. 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 She denies formal cardiac work up in the past - no stress test, LHC, etc. Intake/Output:4.4 L of urine output, -3.2 L in 24 hours, -27.7 L total. Goal Dry Weight: will shoot for 275#. (May - June 2017 patient weighed 282 #. July - October 2017 patient weighed 271-274#. May 2018 patient weighed 283#. Admission weight 321# (both bed scale and standing weights recorded) Vitals: 07/03/18 0330 07/03/18 0511 07/04/18 0600 Weight: 133 kg (293 lb 3.4 oz) 130.8 kg (288 lb 5.8 oz) 130.1 kg (286 lb 13.1 oz ) Diuretic Therapy Prior to admission dose Bumex 1 mg daily Given on admission Daily Dosing 06/25 IV Lasix 40 mg twice daily 06/26 IV lasix 40 mg x1, increased to 80 mg bid starting with afternoon dose 06/27 IV lasix gtt 10 mg/ hr and then increased to 20 mg/hr 06/28 lasix gtt at 20 mg/hr + diuril 250 mg x1 06/29 Lasix drip at 10 mg/h 07/05 discontinued drip, and started IV Lasix 40 mg 3 times daily. 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 06/27 lopressor 25 mg bid started per primary. 06/28 lopressor held, marginal BP and HR 50-60s Restarted lopressor 12.5 mg BID 06/29/18 ACEI/ARB/ARNI recently on lisinopril, however, d/c and started on BB/ 07/03 spironolactone 25 mg daily started Aldosterone Antagonist Hydralazine/Nitrate Ivabradine HRMT Anticoagulation for Afib/flutter Mild to moderate mitral valve stenosis Severe mitral annular calcification Echo 08/30/16revealed severe mitral annular calcification without evidence of significant stenosis or regurgitation. Most recent echo 06/26/18:Calcific thickening of mitral leaflets. Mild to moderate stenosis. Mean gr 7 mm Hg @ HR 67 bpm. Trace regurgitation. There is severe mitral annular calcification. Mitral valve disease not felt to be a driving force behind patient's fluid retention or symptoms of heart failure at this time. 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 BP stable. systolic's running 112-130's. MARIN Admission creatinine 1.72, improving with diuresis. Baseline creatinine 0.8-1.0 DMII - insulin dependent, HgA1C 5.8. 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 Per GI/Hepatology note on 06/09/18 during previous hospitalization, patient recommended to get EGD done in outpatient setting as she was due for a screening. Hx of ITP s/p splenectomy Platelets 95. Patient denies recent bleeding issues. Chronic lower back and right hip pain Primary managing, pain management consulted. Questionable NABIL-no history of sleep study. Subjective Patient denies any overnight events. He continues to report breathing well and continued decrease in lower extremity edema. She denies any muscle cramping, dizziness, or near syncopal episodes. Patient denies chest pain, palpitations, orthopnea, PND, light headedness, N/V/ D, chills, or fever. Medications Scheduled Meds: amitriptyline (ELAVIL) tablet 25 mg 25 mg Oral QHS duloxetine DR (CYMBALTA) capsule 30 mg 30 mg Oral QDAY eltrombopag (PROMACTA) tab 100 mg [Patient's Own Medication] 100 mg Oral QDAY() insulin aspart U-100 (NOVOLOG FLEXPEN) injection PEN 0-6 Units 0-6 Units Subcutaneous ACHS (22) insulin aspart U-100 (NOVOLOG FLEXPEN) injection PEN 8 Units 8 Units Subcutaneous TID w/ meals insulin glargine (LANTUS SOLOSTAR, BASAGLAR) injection PEN 40 Units 40 Units Subcutaneous QHS(22) metoprolol tartrate (LOPRESSOR) tablet 12.5 mg 12.5 mg Oral BID nystatin (NYSTOP) topical powder Topical BID polyethylene glycol 3350 (MIRALAX) packet 17 g 1 packet Oral BID pregabalin (LYRICA) capsule 75 mg 75 mg Oral BID rifAXIMin (XIFAXAN) tablet 550 mg 550 mg Oral BID spironolactone (ALDACTONE) tablet 25 mg 25 mg Oral QDAY vitamins, multi w/minerals tablet 1 tablet 1 tablet Oral QDAY Continuous Infusions: furosemide (LASIX) 500 mg in 50 mL IV drip syr (max conc) 10 mg/hr ( 1225) PRN and Respiratory Meds:acetaminophen Q6H PRN, alteplase PRN (Concession Attendant from Rx) , ondansetron Q8H PRN, oxyCODONE Q6H PRN, tiZANidine Q8H PRN Objective Vital Signs: Last Filed Vital Signs: 24 Hour Range BP: 123/53 (07/05 0004) Temp: 36.7 C (98 F) (07/06 3) Pulse: 63 (07/06 3) Respirations: 20 PER MINUTE (07/06 3) SpO2: 92 % (07/06 3) O2 Delivery: CPAP/BiPAP (Pt Owned) (07/06 3) BP: (108-144)/(52-77) Temp: [36.6 C (97.9 F)-36.8 C (98.3 F)] Pulse: [58-82] Respirations: [16 PER MINUTE-20 PER MINUTE] SpO2: [92 %-98 %] O2 Delivery: CPAP/BiPAP (Pt Owned) Vitals: 07/03/18 0330 07/03/18 0511 07/04/18 0600 Weight: 133 kg (293 lb 3.4 oz) 130.8 kg (288 lb 5.8 oz) 130.1 kg (286 lb 13.1 oz ) Intake/Output Summary: (Last 24 hours) Intake/Output Summary (Last 24 hours) at 07/05/2018 0609 Last data filed at 07/05/2018 0529 Gross per 24 hour Intake 1155.98 ml Output 4450 ml Net -3294.02 ml Body mass index is 44.92 kg/m. Physical Exam GEN: no acute distress, morbidly obese, supplemental O2 JVD: difficult to assess, ~11cm HEENT: nontraumatic, EOM-intact; wears glasses CHEST: clear to auscultation bilaterally CV: Reg rhythm, nml rate; nml S1 & S2, no S3 or S4; no rub; grade 2/6 systolic murmur EXT: trace-+1 peripheral edema, 2+ distal pulses Lab Review Results for orders placed or performed during the hospital encounter of (from the past 24 hour(s)) POC GLUCOSE Collection Time: 07/04/18 7:57 AM Result Value Ref Range Glucose, POC 88 70 - 100 MG/DL POC GLUCOSE Collection Time: 07/04/18 12:08 PM Result Value Ref Range Glucose, POC 125 (H) 70 - 100 MG/DL BASIC METABOLIC PANEL Collection Time: 07/04/18 1:20 PM Result Value Ref Range Sodium 138 137 - 147 MMOL/L Potassium 4.8 3.5 - 5.1 MMOL/L Chloride 93 (L) 98 - 110 MMOL/L CO2 39 (H) 21 - 30 MMOL/L Anion Gap 6 3 - 12 Glucose 150 (H) 70 - 100 MG/DL Blood Urea Nitrogen 31 (H) 7 - 25 MG/DL Creatinine 1.12 (H) 0.4 - 1.00 MG/DL Calcium 9.1 8.5 - 10.6 MG/DL eGFR Non 51 (L) >60 mL/min eGFR >60 >60 mL/min POC GLUCOSE Collection Time: 07/04/18 6:38 PM Result Value Ref Range Glucose, POC 78 70 - 100 MG/DL POC GLUCOSE Collection Time: 07/04/18 9:21 PM Result Value Ref Range Glucose, POC 148 (H) 70 - 100 MG/DL POC GLUCOSE Collection Time: 07/04/18 10:20 PM Result Value Ref Range Glucose, POC 128 (H) 70 - 100 MG/DL PROTIME INR (PT) Collection Time: 07/05/18 4:40 AM Result Value Ref Range INR 1.6 (H) 0.8 - 1.2 PTT (APTT) Collection Time: 07/05/18 4:40 AM Result Value Ref Range APTT 33.0 24.0 - 36.5 SEC COMPREHENSIVE METABOLIC PANEL Collection Time: 07/05/18 4:40 AM Result Value Ref Range Sodium 142 137 - 147 MMOL/L Potassium 4.2 3.5 - 5.1 MMOL/L Chloride 96 (L) 98 - 110 MMOL/L Glucose 60 (L) 70 - 100 MG/DL Blood Urea Nitrogen 30 (H) 7 - 25 MG/DL Creatinine 1.20 (H) 0.4 - 1.00 MG/DL Calcium 8.8 8.5 - 10.6 MG/DL Total Protein 5.7 (L) 6.0 - 8.0 G/DL Total Bilirubin 1.5 (H) 0.3 - 1.2 MG/DL Albumin 3.0 (L) 3.5 - 5.0 G/DL Alk Phosphatase 81 25 - 110 U/L AST (SGOT) 33 7 - 40 U/L CO2 42 (H) 21 - 30 MMOL/L ALT (SGPT) 14 7 - 56 U/L Anion Gap 4 3 - 12 eGFR Non 47 (L) >60 mL/min eGFR 57 (L) >60 mL/min MAGNESIUM Collection Time: 07/05/18 4:40 AM Result Value Ref Range Magnesium 1.8 1.6 - 2.6 mg/dL PHOSPHORUS Collection Time: 07/05/18 4:40 AM Result Value Ref Range Phosphorus 4.0 2.0 - 4.5 MG/DL POC GLUCOSE Collection Time: 07/05/18 5:36 AM Result Value Ref Range Glucose, POC 65 (L) 70 - 100 MG/DL * Ramona Ayon RN - 07/04/2018 6:52 PM CDT Heart Failure Nursing Progress Note Admission Date: 06/24/2018 LOS: 10 days Admission Weight: (!) 146 kg (321 lb 14 oz) Most recent weights (inpatient): Vitals: 07/03/18 0330 07/03/18 0511 07/04/18 0600 Weight: 133 kg (293 lb 3.4 oz) 130.8 kg (288 lb 5.8 oz) 130.1 kg (286 lb 13.1 oz ) Weight change from previous day:-0.7kg Fluid restriction ordered: 1500ml/day Intake/Output Summary: (Last 24 hours) Intake/Output Summary (Last 24 hours) at 07/04/2018 1852 Last data filed at 07/04/2018 1838 Gross per 24 hour Intake 1306.98 ml Output 3800 ml Net -2493.02 ml Is patient incontinent No Anticipated discharge date: 07/08/18 Discharge goals: baseline weight Daily Assessment of Patient Stated Goals: Short Term Goal Identified by patient (Short Term=during hospitalization): Fluid balance * Ramona Ayon RN - 07/04/2018 3:00 PM CDT Unable to get standing weight due to patient's inability to get up on the standing scale. Attempted to get standing weight x2 with PT and nursing staff * Inocencio Matthew - 07/04/2018 11:12 AM CDT Senior Database Administrator Note: Senior Database Administrator engaged the pt. during regular unit rounding. The flooring machine feeder listened to the pt. reflectively as she talked about her nine month old grandson, and how she couldn't wait to go home to give him a huge hug and kiss. Senior Database Administrator also prayed silently for the pt. during the encounter. The spiritual care team is available as needed, 11/10, through the [employer] switchboard ([phone]). For immediate response, please page [phone]. For a response within 24 hours, please submit an order in O2 for a flooring machine feeder consult or call the administrative voicemail at [phone]. Admit Date: 06/24/2018 Date/Time: User: Pager: [phone] 07/04/2018 11:13 AM Inocencio Matthew U 3 * Carlyn Avila - 07/04/2018 10:25 AM CDT OCCUPATIONAL THERAPY PROGRESS NOTE Mobility Time Tolerated: 11-30 minutes Activity Limited By: No limitations Subjective Pertinent Dx per Physician: 52yo F hx of recurrent hospitalizations, chronic respiratory failure on exertional 2L O2, DM2, 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 Pt has been admitted to transferring hospital for ~1 week with pneumonia requiring intubation, ultimately weaned to 2L NC. Precautions: O2 Requirement(2L NC; Nichole; IV) Pain / Complaints: Patient agrees to participate in therapy Objective Psychosocial Status: Willing and Cooperative to Participate Persons Present: RehabTechnician;Nursing Staff Home Living Type of Home: House Home Layout: One Level;Ramped Entrance;Able to Live on Main Level w/Bedrm/ Bathrm Access Bathroom Shower / Tub: Walk-in Shower Bathroom Toilet: Standard Home Equipment: Walker;Cane;Wheelchair-manual Prior Function Level Of Struthers: Independent with ADLs and functional transfers;Needed assistance with homemaking Lives With: Spouse;Son(DIL, infant grandchild.) Receives Help From: Family(All family members work during the day.) Other Function Comments: Pt transferred to [facility] from an outside subacute rehab within a hospital. Was ambulating with a SPC prior to recent hospital admissions. Uses a manual wheelchair within the community. States that she has had 3 falls in the past 6 months as a result of her 'legs giving out.' Pt reports that she is typically ambulatory with all ADLs and is able to do some light cooking and cleaning. States that she was walking with a RW at rehab. Note : pt with significant LE edema with increased distal fluid collection after prolonged sitting in chair. ADL's Where Assessed: Chair Grooming Assist: Stand By Assist Grooming Deficits: Setup;Brushing Hair Toileting Assist: Not Addressed Today(Pt denied need for toileting.) Comment: Pt in recliner initially. Pt refusing attempts to stand and amb due to BLE feeling shaky. Pt wishing to stay up in chair until lunch. Pt in chair with PADs alarm and all needs in reach. RN notified. Activity Tolerance Endurance: 2/5 Tolerates 10-20 Minutes Exercise w/Multiple Rests Cognition Overall Cognitive Status: WFL to Adequately Complete Self Care Tasks Safely Assessment Assessment: Decreased ADL Status;Decreased Endurance;Decreased Self-Care Trans; Decreased High-Level ADLs Prognosis: Poor;w/Cont OT s/p Acute Discharge Plan Progress: Slow Progress, Decreased Activity Tolerance OT Frequency: 5x/week OT Plan for Next Visit: BSC transfer. ADL Goals Patient Will Perform Grooming: Standing at Sink;w/ Stand By Assist Patient Will Perform LE Dressing: w/ Moderate Assist Patient Will Perform Toileting: w/ Moderate Assist Functional Transfer Goals Pt Will Transfer To Bedside Commode: w/ Minimum Assist OT Discharge Recommendations OT Discharge Recommendations: Inpatient Setting Equipment Recommendations: Caser Up, Sock José Luis, Long Handled Bath Sponge, Shower Chair(Grab bars; Hand Held Shower Head.) Therapist: Carlyn Avila Date: 07/04/2018 * Gayla Olivo, PT - 07/04/2018 8:58 AM CDT PHYSICAL THERAPY PROGRESS NOTE MOBILITY: Mobility Progressive Mobility Level: Active transfer to chair Level of Assistance: Assist X2 Assistive Device: Walker Time Tolerated: 11-30 minutes Activity Limited By: Weakness SUBJECTIVE: Significant hospital events: Admitted due to pneumonia, hypoxic respiratory failure, persistent metabolic acidosis PMH: chronic respiratory failure, DM, ESLD, GERD, HTN Mental / Cognitive Status: Alert;Oriented;Cooperative Persons Present: Nursing Staff Pain: Patient has no complaint of pain Comments: 3L O2 during session, no desats noted during activity Ambulation Assist: Independent Mobility in Community with Device(prior to may used a cane in the community) Patient Owned Equipment: Single Point Cane;Roller Walker;Manual Wheelchair Home Situation: Lives with Family Type of Home: House Entry Stairs: 1-2 Stairs;Ramp In-Home Stairs: No Stairs Comments: plans to return to previous rehab facility BED MOBILITY/TRANSFERS: Bed Mobility/Transfers Bed Mobility: Supine to Sit: Minimal Assist;Use of Rail;Head of Bed Elevated Comments: Scooting to EOB with SBA Transfer Type: Sit to Stand;Stand Pivot Transfer: Assistance Level: To/From;Bed;To;Bed Side Chair;Minimal Assist;x2 People Transfer: Assistive Device: Roller Walker Transfers: Type Of Assistance: Verbal Cues;For Safety Considerations;For Balance ;For Strength Deficit Other Transfer Type: Sit to/from Stand Other Transfer: Assistance Level: To/From;Bed Other Transfer: Assistive Device: Roller Walker Other Transfer: Type Of Assistance: Verbal Cues;For Safety Considerations;For Strength Deficit;For Balance End Of Activity Status: Up in Chair;Nursing Notified;Instructed Patient to Use Call Light;Instructed Patient to Request Assist with Mobility Comments: Sit <> stands x 3 at EOB for endurance and assessment of pt weight on stand up scale. Seated rest at EOB required then pt able to complete stand/ pivot transfer to bedside chair. Pt with notable LE weakness and mildly knee buckling however knees do not give out during pivot. Ressurance provided for pt to decrease anxiety with movement. BALANCE: Balance Sitting Balance: Standby Assist Standing Balance: Minimal Assist;x2 People;Dynamic Standing Balance Comments: Pt is able to tolerate sitting at EOB and multiple sit <> stands without complaints of back pain today GAIT: Gait Comments: Formal gait NT due to pt LE instability with pivot, unsafe at this time. Pt does take approximately 4 steps with pivot transfer ACTIVITY/EXERCISE: Sit Edge Of Bed: 5 minutes Sit Edge Of Bed Assist: Stand By Assist Activity Tolerance: Tolerates 20+ Minutes of Activity Activity Limited By: Complaint of Fatigue EDUCATION: Persons Educated: Patient Patient Barriers To Learning: None Noted Teaching Methods: Verbal Instruction Patient Response: Verbalized Understanding;Return Demonstration Topics: Plan/Goals of PT Interventions;Up with Assist Only ASSESSMENT/PROGRESS: Assessment/Progress Impaired Mobility Due To: Pain;Decreased Activity Tolerance;Decreased Strength Assessment/Progress: Should Improve w/ Continued PT AM-PAC 6 Clicks Basic Mobility Inpatient Turning from your back to your side while in a flat bed without using bed rails : A Little Moving from lying on your back to sitting on the side of a flatbed without using bedrails : A Little Moving to and from a bed to a chair (including a wheelchair): A Lot Standing up from a chair using your arms (e.g. wheelchair, or bedside chair): A Lot To walk in hospital room: A Lot Climbing 3-5 steps with a railing: Total Raw Score: 13 Standardized (T-scale) Score: 33.99 Basic Mobility CMS 0-100%: 57.65 CMS G Code Modifier for Basic Mobility: CK GOALS: Goal Formulation: With Patient Time For Goal Achievement: 7 days Patient Will Go Supine To/From Sit: w/ Minimal Assist, Partly Met(NT for HOB flat) Patient Will Transfer Sit to Stand: w/ Minimal Assist, Ongoing Patient Will Ambulate: 11-30 Feet, w/ Walker, w/ Minimal Assist Patient Will Sit Edge Of Bed: 6-10 Minutes, w/ Stand By Assist, Ongoing PLAN: Treatment Interventions: Mobility Training;Strengthening;Endurance Training Plan Frequency: 5 Days per Week PT Plan for Next Visit: continue pre-gait standing tolerance interventions, bed mobility, sit <> stand repetitions, LE exercise, consider standardized 5x sit < > stand once pt is able to perform. Goal to assist pt with transition to assist of only 1 person with mobility tasks. 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 Prior to transfer had been in the hospital for a week with pneumonia requiring intubation, weaned to 2 L O2 prior to transfer. She completed a course of Zosyn for possible pneumonia on 06/27. Currently on lasix gtt, now diuresing well. Volume overload Acute on chronic diastolic heart failure Pulmonary hypertension, likely owing to left heart disease, chronic hypoxia/OHS/ NABIL Hypertension - Echo with LVEF 70%, unable to assess diastolic fillling, normal RV, elevated CVP>15 mmHg, mild to moderate MS, estimated PASP 62 mmHg - Admission CXR with evidence of volume overload - pulmonary vascular congestion , small to moderate L pleural effusion, cardiomegaly, BNP 967. - Continue Lasix gtt @ 10 mg/hr - Strict I/Os, daily weights, low Na diet with 1.5L fluid restriction. - BID BMPs, keep K>4, Mg >2; replete today - Holding lisinopril due to MARIN; should discontinue permanently with her decompensated cirrhosis - Continue metoprolol 12.5 mg bid. Added spironolactone - Cardiology following, appreciate their assistance - Weight from 321 to 286. Likely goal weight 270lb Acute on chronic hypoxic respiratory failure, improved - Completed 10 day course of antibiotics (vancomycin and zosy)n for HCAP. Intubated at OSH, extubated prior to transfer, now on home 2 L. Due to volume overload +/- infection. - Diuresis as above - Incentive spirometry Acute kidney injury, improving - Suspect cardiorenal physiology, as Cr of 1.7-1.9 improving steadily with diuresis - Monitor renal function H/o ITP s/p splenectomy (age 6) Recurrent thrombocytopenia Follows with [facility] - Dr. Moran - Continue eltrombopag, had been held earlier at OSH; withdrawalislikely the cause of worsening plt count - Holding heparin, although HIT score 3, low suspicion of HIT - Hematology consulted - Daily hemolysis/DIC labs for now - No indication for IVIG unless bleeding, surgical procedures - Have sent type/screen, consented for transfusion if needed Persistent leukocytosis ~17-20k, afebrile, likely related to prior splenectomy - chronic Decompensated cirrhosis - Due to MCGOWAN, HCV. Complicated by HE. No ascites on abdominal US 06/09/18; liver nodule as below; AFP 3 05/2018. Not a candidate for OLT due to BMI. S/p treatment for HCV with interferon and ribavirin 2012 with SVR. No prior EGD for EV screening on file. - Diuresis as above - MARINE ENGINE MECHANIC on lactulose, rifaximin - Was switched from lactulose to miralax due to abdominal cramping with improvement in symptoms - Follow up with Hepatology arranged Liver nodule - Abdominal US 06/09/18 with 3.9 x 1.4 x 2.7 cm nodule with absent blood flow in between L liver lobe and pancreas - CT abdomen: more consistent with large lymph node. Low suspicion for malignancy. Recommended f/u in 3-6 months NABIL, OHS - Required rescue Bipap in the MICU. Started on autopap at night Type 2 diabetes - A1c 5.8% 06/08/18 - Continue lantus 40 un qhs, aspart 8 un tid with meals, low dose sliding scale aspart Peripheral neuropathy - Continue home tizanidine -Havechangedgabapentin to pregabalin 75 mg bid - Currently on oxycodone as well, wean as tolerated - Pain mgmt following Abnormal cosynotropinstimulation test - Cortisol 2.7 on random draw. ACTH stim test with baseline- 1.1, 30min 7.2, 60min 9.9. Endo consulted due to abnormal stim test - Will need repeat in outpatient setting Depression - Continue home amitriptyline and duloxetine FEN - No IVF - Low Na diet - Monitor lytes VTE proph: SCDs Code status: Full code Disposition:continue inpatient admission Subjective Niecy Richey is a 52 y.o. female. Patient complaints of weakness. No fever, chills, chest pain. Shortness of breath is improving. Reported improvement in abdominal symptoms on miralax and had 2 bowel movements already. Medications Scheduled Meds: amitriptyline (ELAVIL) tablet 25 mg 25 mg Oral QHS duloxetine DR (CYMBALTA) capsule 30 mg 30 mg Oral QDAY eltrombopag (PROMACTA) tab 100 mg [Patient's Own Medication] 100 mg Oral QDAY() insulin aspart U-100 (NOVOLOG FLEXPEN) injection PEN 0-6 Units 0-6 Units Subcutaneous ACHS (22) insulin aspart U-100 (NOVOLOG FLEXPEN) injection PEN 8 Units 8 Units Subcutaneous TID w/ meals insulin glargine (LANTUS SOLOSTAR, BASAGLAR) injection PEN 40 Units 40 Units Subcutaneous QHS() metoprolol tartrate (LOPRESSOR) tablet 12.5 mg 12.5 mg Oral BID nystatin (NYSTOP) topical powder Topical BID polyethylene glycol 3350 (MIRALAX) packet 17 g 1 packet Oral BID pregabalin (LYRICA) capsule 75 mg 75 mg Oral BID rifAXIMin (XIFAXAN) tablet 550 mg 550 mg Oral BID spironolactone (ALDACTONE) tablet 25 mg 25 mg Oral QDAY vitamins, multi w/minerals tablet 1 tablet 1 tablet Oral QDAY Continuous Infusions: furosemide (LASIX) 500 mg in 50 mL IV drip syr (max conc) 10 mg/hr ( 1735) PRN and Respiratory Meds:acetaminophen Q6H PRN, alteplase PRN (Concession Attendant from Rx) , ondansetron Q8H PRN, oxyCODONE Q6H PRN, tiZANidine Q8H PRN Objective: Vital Signs: Last Filed Vital Signs: 24 Hour Range BP: 124/51 (07/05 411) Temp: 36.4 C (97.5 F) (07/05 411) Pulse: 68 (07/05 411) Respirations: 18 PER MINUTE (07/05 411) SpO2: 93 % (07/05 411) O2 Delivery: Nasal Cannula (07/05 411) BP: (103-144)/(49-70) Temp: [36.4 C (97.5 F)-37.3 C (99.1 F)] Pulse: [64-73] Respirations: [16 PER MINUTE-20 PER MINUTE] SpO2: [92 %-97 %] O2 Delivery: Nasal Cannula Intensity Pain Scale (Self Report): 4 (07/03/18 1244) Vitals: 07/03/18 0330 07/03/18 0511 07/04/18 0600 Weight: 133 kg (293 lb 3.4 oz) 130.8 kg (288 lb 5.8 oz) 130.1 kg (286 lb 13.1 oz ) Intake/Output Summary: (Last 24 hours) Intake/Output Summary (Last 24 hours) at 07/04/2018 0613 Last data filed at 07/04/2018 0600 Gross per 24 hour Intake 1241.89 ml Output 3875 ml Net -2633.11 ml Stool Occurrence: (S) 1 Physical Exam GENERAL: calm, cooperative, no acute distress HEAD and NECK: EOMI, PERRL, neck supple CARDIOVASCULAR: normal rate, regular rhythm, no murmurs, rubs, or gallops. PULMONARY: lungs clear to auscultation bilaterally - no rhonchi, rales, wheezing. @L O2 ABDOMEN: soft, nontender, nondistended, no rebound or guarding GENITOURINARY: + nichole in place EXTREMITIES: extremities warm, well-perfused, 1+ LE edema. Normal peripheral pulses. SKIN: no rashes on exposed skin Lab Review 24-hour labs: Results for orders placed or performed during the hospital encounter of (from the past 24 hour(s)) POC GLUCOSE Collection Time: 07/03/18 8:22 AM Result Value Ref Range Glucose, POC 128 (H) 70 - 100 MG/DL POC GLUCOSE Collection Time: 07/03/18 12:09 PM Result Value Ref Range Glucose, POC 127 (H) 70 - 100 MG/DL BASIC METABOLIC PANEL Collection Time: 07/03/18 1:02 PM Result Value Ref Range Sodium 141 137 - 147 MMOL/L Potassium 4.3 3.5 - 5.1 MMOL/L Chloride 96 (L) 98 - 110 MMOL/L CO2 40 (H) 21 - 30 MMOL/L Anion Gap 5 3 - 12 Glucose 166 (H) 70 - 100 MG/DL Blood Urea Nitrogen 31 (H) 7 - 25 MG/DL Creatinine 1.17 (H) 0.4 - 1.00 MG/DL Calcium 8.7 8.5 - 10.6 MG/DL eGFR Non 48 (L) >60 mL/min eGFR 58 (L) >60 mL/min POC GLUCOSE Collection Time: 07/03/18 5:33 PM Result Value Ref Range Glucose, POC 114 (H) 70 - 100 MG/DL POC GLUCOSE Collection Time: 07/03/18 9:55 PM Result Value Ref Range Glucose, POC 133 (H) 70 - 100 MG/DL PROTIME INR (PT) Collection Time: 07/04/18 5:24 AM Result Value Ref Range INR 1.6 (H) 0.8 - 1.2 PTT (APTT) Collection Time: 07/04/18 5:24 AM Result Value Ref Range APTT 31.1 24.0 - 36.5 SEC CBC AND DIFF Collection Time: 07/04/18 5:24 AM Result Value Ref Range White Blood Cells 4.5 - 11.0 K/UL RBC 4.0 - 5.0 M/UL Hemoglobin 12.0 - 15.0 GM/DL Hematocrit 36 - 45 % MCV 80 - 100 FL MCH 26 - 34 PG MCHC 32.0 - 36.0 G/DL RDW 11 - 15 % Platelet Count 150 - 400 K/UL MPV 7 - 11 FL COMPREHENSIVE METABOLIC PANEL Collection Time: 07/04/18 5:24 AM Result Value Ref Range Sodium 140 137 - 147 MMOL/L Potassium 4.1 3.5 - 5.1 MMOL/L Chloride 95 (L) 98 - 110 MMOL/L Glucose 74 70 - 100 MG/DL Blood Urea Nitrogen 30 (H) 7 - 25 MG/DL Creatinine 1.07 (H) 0.4 - 1.00 MG/DL Calcium 8.8 8.5 - 10.6 MG/DL Total Protein 6.3 6.0 - 8.0 G/DL Total Bilirubin 1.4 (H) 0.3 - 1.2 MG/DL Albumin 3.2 (L) 3.5 - 5.0 G/DL Alk Phosphatase 85 25 - 110 U/L AST (SGOT) 37 7 - 40 U/L CO2 40 (H) 21 - 30 MMOL/L ALT (SGPT) 16 7 - 56 U/L Anion Gap 5 3 - 12 eGFR Non 53 (L) >60 mL/min eGFR >60 >60 mL/min MAGNESIUM Collection Time: 07/04/18 5:24 AM Result Value Ref Range Magnesium 1.8 1.6 - 2.6 mg/dL PHOSPHORUS Collection Time: 07/04/18 5:24 AM Result Value Ref Range Phosphorus 3.8 2.0 - 4.5 MG/DL Point of Care Testing (Last 24 hours) Radiology and other Diagnostics Review: Pertinent radiology reviewed. Rodrigo Soler MD Pager [phone] * Davide Villarreal RN - 07/04/2018 6:10 AM CDT Heart Failure Nursing Progress Note Admission Date: 06/24/2018 LOS: 10 days Admission Weight: (!) 146 kg (321 lb 14 oz) Most recent weights (inpatient): Vitals: 07/03/18 0330 07/03/18 0511 07/04/18 0600 Weight: 133 kg (293 lb 3.4 oz) 130.8 kg (288 lb 5.8 oz) 130.1 kg (286 lb 13.1 oz ) Weight change from previous day:-0.7kg Fluid restriction ordered: 1500 ml Intake/Output Summary: (Last 24 hours) Intake/Output Summary (Last 24 hours) at 07/04/2018 0610 Last data filed at 07/04/2018 0600 Gross per 24 hour Intake 1241.89 ml Output 3875 ml Net -2633.11 ml Is patient incontinent No- Nichole Anticipated discharge date: Ongoing Discharge goals: no edema bilateral lower extremities. * Susanne Shah APRN-SALONI - 07/04/2018 6:08 AM CDT Cardiology Progress Note Admission Date: 06/24/2018 Today's Date: 07/04/2018 LOS: 10 days Niecy Richey is a 52 y.o. 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 The patient had been admitted at [facility] from 3/20 to 06/15/18 for treatment of CAP with acute hypoxic respiratory failure and ESLD with hepatic encephalopathy. Once stable, she was discharged to [facility] inpatient rehab for ongoing PT/OT. Per patient and family, on 06/23 the patient began to retain fluid and gained 11# in one day. She developed SILVERMAN, weight gain, BLEE, abdominal distension, and lower extremity pain 2/2 bilateral swelling. An echocardiogram was done 06/26/18 revealing LVEF 70%, moderate LA dilation, IVC >15, mild to moderate stenosis that appeared mildly more advanced than previous echo in 08/2017, and severe mitral annular calcification. Cardiology consulted to further evaluate patient. Recommendations: Todays: -Per physical exam, patient is nearing euvolemia. Will likely continue Lasix drip today and transition to IV diuretics on 07/05/18. -Continue Lopressor 12.5 mg twice daily and spironolactone 25 mg daily. -Weights have been documented as bed scale. Nurse communication placed to obtain daily standing. Ongoin. BMP bid. Magnesium level daily. Keep Potassium > 4.0 and Magnesium > 2.0. 2. 2000 mg sodium dietary restriction. 3. Fluid Restriction 1.5L Yes 4. Strict I/O. 5. Standing scale daily weight. 6. Social Media Content Specialist consultation to discuss sodium restricted diet recommended. 7. Pharmacy/Medication counseling recommended. 8. Case Management/Social Work recommended. 9. Physical Therapy consult recommended. 10. Follow Up: appointment with a member of the HF team or PCP within 7 calendar days of discharge. Patient seen and plan formulated with Dr. Bruce Sims. GISELA Chong Telemetry: Sinus rhythm 60s Assessment/ Plan: Acute on chronic hypoxic/hypercarbic respiratory failure 06/07 - 06/15: treated for CAP at [facility] 06/15 - 06/18: inpatient rehab in [place] 06-18 - 06/24: admitted to ICU for respiratory failure, treated for HCAP with zosyn , escalated to meropenem (unclear why the escalation). Required intubation ~72h at OSH, now down to 2L NC. ABG 7.34/38/76 on 2L NC on 06/24 CXR on arrival with volume overloaded appearance. Primary currently questioning FVOL vs HCAP vs Multi-factorial. Procalcitonin 0.17 on 06/24, was 0.09 in 06/08/18. Patient was treated with Zosyn and vancomycin during admission. Persistent Leukocytosis WBC 27.0on 06/26, improving. Patient remains afebrile Acute diastolicHFpEF, EF: 70% Likely NICM. Major Complications or Comorbidities ([facility]): acute respiratory failure NYHA functional class III (marked limitation of physical activity - comfortable at rest, but less than ordinary activity causes symptoms of HF e.g., getting dressed or standing from a sitting position), ACC Stage C (structural heart disease with prior or current symptoms of HF). She presents with signs of hypervolemiawithout signs of low flow state. Admission BNP: 967 Chest x ray 06/24/18: Findings consistent with CHF/volume overload including cardiomegaly, pulmonary vascular congestion and small to moderate left pleural effusion. Echocardiogram 06/26/18revealed LVEF 70%, normal size and shape LV, concentric remodeling, unable to assess diastolic function. RV normal size and EF. LA moderately dilated. RA normal size. IVC >15. Calcified thickening of mitral leaflets. Mild to moderate stenosis which appears increased in comparison to previous echo in 08/2016. There is trace MR and severe mitral annular calcification. Mild TR. 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 She denies formal cardiac work up in the past - no stress test, LHC, etc. Intake/Output:3.8 L urine overnight, -2.6 L in 24 hours, -23.4 L total. Goal Dry Weight: will shoot for 275#. (May - June 2017 patient weighed 282 #. July - October 2017 patient weighed 271-274#. May 2018 patient weighed 283#. 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 06/27 lopressor 25 mg bid started per primary. 06/28 lopressor held, marginal BP and HR 50-60s Restarted lopressor 12.5 mg BID 06/29/18 ACEI/ARB/ARNI recently on lisinopril, however, d/c and started on BB/ 07/03 spironolactone 25 mg daily started Aldosterone Antagonist Hydralazine/Nitrate Ivabradine HRMT Anticoagulation for Afib/flutter Mild to moderate mitral valve stenosis Severe mitral annular calcification Echo 08/30/16revealed severe mitral annular calcification without evidence of significant stenosis or regurgitation. Most recent echo 06/26/18:Calcific thickening of mitral leaflets. Mild to moderate stenosis. Mean gr 7 mm Hg @ HR 67 bpm. Trace regurgitation. There is severe mitral annular calcification. Mitral valve disease not felt to be a driving force behind patient's fluid retention or symptoms of heart failure at this time. 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 BP stable. systolic's running 112-130's. MARIN Admission creatinine 1.72, improving with diuresis. Baseline creatinine 0.8-1.0 DMII - insulin dependent, HgA1C 5.8. 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 Per GI/Hepatology note on 06/09/18 during previous hospitalization, patient recommended to get EGD done in outpatient setting as she was due for a screening. Hx of ITP s/p splenectomy Platelets 95. Patient denies recent bleeding issues. Chronic lower back and right hip pain Primary managing, pain management consulted. Questionable NABIL-no history of sleep study. Subjective Patient denies any overnight events. She does report that her breathing is the best it has been in months. Additionally, she reports that she has been having shaky legs with standing. She thinks this might be secondary to her pain medication. She denies any muscle cramping, dizziness, or near syncopal episodes. Patient denies chest pain, palpitations, orthopnea, PND, light headedness, syncope, N/V/D, chills, or fever. Medications Scheduled Meds: amitriptyline (ELAVIL) tablet 25 mg 25 mg Oral QHS duloxetine DR (CYMBALTA) capsule 30 mg 30 mg Oral QDAY eltrombopag (PROMACTA) tab 100 mg [Patient's Own Medication] 100 mg Oral QDAY() insulin aspart U-100 (NOVOLOG FLEXPEN) injection PEN 0-6 Units 0-6 Units Subcutaneous ACHS () insulin aspart U-100 (NOVOLOG FLEXPEN) injection PEN 8 Units 8 Units Subcutaneous TID w/ meals insulin glargine (LANTUS SOLOSTAR, BASAGLAR) injection PEN 40 Units 40 Units Subcutaneous QHS() metoprolol tartrate (LOPRESSOR) tablet 12.5 mg 12.5 mg Oral BID nystatin (NYSTOP) topical powder Topical BID polyethylene glycol 3350 (MIRALAX) packet 17 g 1 packet Oral BID pregabalin (LYRICA) capsule 75 mg 75 mg Oral BID rifAXIMin (XIFAXAN) tablet 550 mg 550 mg Oral BID spironolactone (ALDACTONE) tablet 25 mg 25 mg Oral QDAY vitamins, multi w/minerals tablet 1 tablet 1 tablet Oral QDAY Continuous Infusions: furosemide (LASIX) 500 mg in 50 mL IV drip syr (max conc) 10 mg/hr ( 9245) PRN and Respiratory Meds:acetaminophen Q6H PRN, alteplase PRN (Concession Attendant from Rx) , ondansetron Q8H PRN, oxyCODONE Q6H PRN, tiZANidine Q8H PRN Objective Vital Signs: Last Filed Vital Signs: 24 Hour Range BP: 124/51 (07/05 411) Temp: 36.4 C (97.5 F) (07/05 411) Pulse: 68 (07/05 411) Respirations: 18 PER MINUTE (07/05 411) SpO2: 93 % (07/05 411) O2 Delivery: Nasal Cannula (07/05 411) BP: (103-144)/(49-70) Temp: [36.4 C (97.5 F)-37.3 C (99.1 F)] Pulse: [64-73] Respirations: [16 PER MINUTE-20 PER MINUTE] SpO2: [92 %-97 %] O2 Delivery: Nasal Cannula Intensity Pain Scale (Self Report): 4 (07/03/18 1244) Vitals: 07/02/18 1500 07/03/18 0330 07/03/18 0511 Weight: 135.9 kg (299 lb 9.7 oz) 133 kg (293 lb 3.4 oz) 130.8 kg (288 lb 5.8 oz ) Intake/Output Summary: (Last 24 hours) Intake/Output Summary (Last 24 hours) at 07/04/2018 0609 Last data filed at 07/04/2018 0420 Gross per 24 hour Intake 1041.89 ml Output 3525 ml Net -2483.11 ml Body mass index is 45.16 kg/m. Physical Exam GEN: no acute distress, morbidly obese, supplemental O2 JVD: difficult to assess HEENT: nontraumatic, EOM-intact; wears glasses CHEST: clear to auscultation bilaterally CV: Reg rhythm, nml rate; nml S1 & S2, no S3 or S4; no rub; grade 2/6 systolic murmur EXT: +1 peripheral edema, 2+ distal pulses Lab Review Results for orders placed or performed during the hospital encounter of (from the past 24 hour(s)) POC GLUCOSE Collection Time: 07/03/18 8:22 AM Result Value Ref Range Glucose, POC 128 (H) 70 - 100 MG/DL POC GLUCOSE Collection Time: 07/03/18 12:09 PM Result Value Ref Range Glucose, POC 127 (H) 70 - 100 MG/DL BASIC METABOLIC PANEL Collection Time: 07/03/18 1:02 PM Result Value Ref Range Sodium 141 137 - 147 MMOL/L Potassium 4.3 3.5 - 5.1 MMOL/L Chloride 96 (L) 98 - 110 MMOL/L CO2 40 (H) 21 - 30 MMOL/L Anion Gap 5 3 - 12 Glucose 166 (H) 70 - 100 MG/DL Blood Urea Nitrogen 31 (H) 7 - 25 MG/DL Creatinine 1.17 (H) 0.4 - 1.00 MG/DL Calcium 8.7 8.5 - 10.6 MG/DL eGFR Non 48 (L) >60 mL/min eGFR 58 (L) >60 mL/min POC GLUCOSE Collection Time: 07/03/18 5:33 PM Result Value Ref Range Glucose, POC 114 (H) 70 - 100 MG/DL POC GLUCOSE Collection Time: 07/03/18 9:55 PM Result Value Ref Range Glucose, POC 133 (H) 70 - 100 MG/DL PROTIME INR (PT) Collection Time: 07/04/18 5:24 AM Result Value Ref Range INR 1.6 (H) 0.8 - 1.2 PTT (APTT) Collection Time: 07/04/18 5:24 AM Result Value Ref Range APTT 31.1 24.0 - 36.5 SEC COMPREHENSIVE METABOLIC PANEL Collection Time: 07/04/18 5:24 AM Result Value Ref Range Sodium 140 137 - 147 MMOL/L Potassium 4.1 3.5 - 5.1 MMOL/L Chloride 95 (L) 98 - 110 MMOL/L Glucose 74 70 - 100 MG/DL Blood Urea Nitrogen 30 (H) 7 - 25 MG/DL Creatinine 1.07 (H) 0.4 - 1.00 MG/DL Calcium 8.8 8.5 - 10.6 MG/DL Total Protein 6.3 6.0 - 8.0 G/DL Total Bilirubin 1.4 (H) 0.3 - 1.2 MG/DL Albumin 3.2 (L) 3.5 - 5.0 G/DL Alk Phosphatase 85 25 - 110 U/L AST (SGOT) 37 7 - 40 U/L CO2 40 (H) 21 - 30 MMOL/L ALT (SGPT) 16 7 - 56 U/L Anion Gap 5 3 - 12 eGFR Non 53 (L) >60 mL/min eGFR >60 >60 mL/min MAGNESIUM Collection Time: 07/04/18 5:24 AM Result Value Ref Range Magnesium 1.8 1.6 - 2.6 mg/dL PHOSPHORUS Collection Time: 07/04/18 5:24 AM Result Value Ref Range Phosphorus 3.8 2.0 - 4.5 MG/DL Associated attestation - Angelic Dennis MD - 07/06/2018 2:55 PM CDT I personally interviewed and examined the patient. I have examined the patient, reviewed the history, physical impression and plan outlined by the NELLA, Alyssa Skinner and agree with my edits as outlined below. Subjective: Patient improved in terms shortness of breath Objective: Vital signs is been reviewed Head and neck: JVP is seen at 12 cmH2O Chest: To auscultation bilaterally Heart: Regular rate and rhythm Abdomen: Nontender nondistended positive bowel sounds Lower limb: +1 lower edema Images, echocardiogram and laboratory data has been reviewed Assessment and plan: Patient is a pleasant 38-year-old female with heart failure with preserved ejection fraction. We recommend to continue IV Lasix drip and switch to intermittent iv diuresis in a.m. Patient was seen on 07/04/2018 Angelic Sims MD, MS [facility] Pager: [phone] * Ramona Ayon RN - 07/03/2018 6:46 PM CDT Heart Failure Nursing Progress Note Admission Date: 06/24/2018 LOS: 9 days Admission Weight: (!) 146 kg (321 lb 14 oz) Most recent weights (inpatient): Vitals: 07/02/18 1500 07/03/18 0330 07/03/18 0511 Weight: 135.9 kg (299 lb 9.7 oz) 133 kg (293 lb 3.4 oz) 130.8 kg (288 lb 5.8 oz ) Weight change from previous day:-2.2kg Fluid restriction ordered: 1500ml/Day Intake/Output Summary: (Last 24 hours) Intake/Output Summary (Last 24 hours) at 07/03/2018 1845 Last data filed at 07/03/2018 1844 Gross per 24 hour Intake 823.89 ml Output 4375 ml Net -3551.11 ml Is patient incontinent No Anticipated discharge date: 08/07/18 Discharge goals: baseline weight Daily Assessment of Patient Stated Goals: Short Term Goal Identified by patient (Short Term=during hospitalization): Fluid balance * Alivia Hopper APRN - 07/03/2018 3:16 PM CDT General Progress Note Name: Niecy Richey Today's Date: 07/03/2018 Admission Date: 06/24/2018 LOS: 9 days Assessment/Plan: Active Problems: End stage liver disease (HCC) Metabolic acidosis Acidosis Severe malnutrition (HCC) Niecy Dunn a 52 y.o.femalewith PMHofchronic respiratory failure with hypoxia, on home oxygen therapy, DMT2,end stage liver disease, GERD, hx of hepatitis C, HTN, MCGOWAN, ITP s/psplenectomy.She was transferred to on or further treatment of hypoxic respiratory failure, persistent metabolic acidosis. 1. Thrombocytopenia -follows with . -long standing history with splenectomy at age 6 and treatment with steroids and Rituxan -Promacta 100mg po daily was held @ OSH 06/18; restarted 06/26. -zosyn/vancomycin stopped @ OSH 06/27 -IPF 40% suggests appropriate production -smear without schistocytes, normal platelet morphology -STEVEN negative, haptoglobin wnl, LDH 396, TV 1.3 -16K today 07/03 2. Acute hypoxic respiratory failure with baseline O2 requirement of 2L NC -06/24 CXR: Findings consistent with CHF/volume overload including cardiomegaly, pulmonary vascular congestion and small to moderate left pleural effusion. Mixed bilateral pulmonary opacities may represent edema and/or pneumonia. -Echo with LVEF 70%, unable to assess diastolic fillling, normal RV, elevated CVP>15 mmHg, mild to moderate MS, estimated PASP 62 mmHg -completed 10 day coarse of vancomycin/zosyn @ OSH for HCAP -BNP 967 on admit -lasix drip Recommendations: -continued to follow daily CBC, no indication to treat ITP unless platelets <10K , bleeding or for a procedure -will arrange f/u with at discharge (patient requesting same day as hepatology appointment) Discussed with . Subjective Niecy Richey is a 52 y.o. female. Patient continues to feel better daily, breathing has improved, LE edema much improved. Denies any signs of bleeding, no headaches. Medications Scheduled Meds: amitriptyline (ELAVIL) tablet 25 mg 25 mg Oral QHS duloxetine DR (CYMBALTA) capsule 30 mg 30 mg Oral QDAY eltrombopag (PROMACTA) tab 100 mg [Patient's Own Medication] 100 mg Oral QDAY() insulin aspart U-100 (NOVOLOG FLEXPEN) injection PEN 0-6 Units 0-6 Units Subcutaneous ACHS () insulin aspart U-100 (NOVOLOG FLEXPEN) injection PEN 8 Units 8 Units Subcutaneous TID w/ meals insulin glargine (LANTUS SOLOSTAR, BASAGLAR) injection PEN 40 Units 40 Units Subcutaneous QHS() metoprolol tartrate (LOPRESSOR) tablet 12.5 mg 12.5 mg Oral BID nystatin (NYSTOP) topical powder Topical BID polyethylene glycol 3350 (MIRALAX) packet 17 g 1 packet Oral BID pregabalin (LYRICA) capsule 75 mg 75 mg Oral BID rifAXIMin (XIFAXAN) tablet 550 mg 550 mg Oral BID spironolactone (ALDACTONE) tablet 25 mg 25 mg Oral QDAY vitamins, multi w/minerals tablet 1 tablet 1 tablet Oral QDAY Continuous Infusions: furosemide (LASIX) 500 mg in 50 mL IV drip syr (max conc) 10 mg/hr ( 1735) PRN and Respiratory Meds:acetaminophen Q6H PRN, alteplase PRN (Concession Attendant from Rx) , ondansetron Q8H PRN, oxyCODONE Q6H PRN, tiZANidine Q8H PRN Review of Systems: A 14 point review of systems was negative except for: as per subjective Objective: Vital Signs: Last Filed Vital Signs: 24 Hour Range BP: 128/49 (07/03 1124) Temp: 37.3 C (99.1 F) (07/03 112) Pulse: 70 (07/04 1123) Respirations: 20 PER MINUTE (07/04 1123) SpO2: 97 % (07/04 1123) O2 Delivery: Nasal Cannula (07/04 1123) BP: (103-140)/(49-74) Temp: [36.6 C (97.9 F)-37.3 C (99.1 F)] Pulse: [68-74] Respirations: [18 PER MINUTE-20 PER MINUTE] SpO2: [94 %-98 %] O2 Delivery: Nasal Cannula Intensity Pain Scale (Self Report): 4 (07/03/18 1244) Vitals: 07/02/18 1500 07/03/18 0330 07/03/18 0511 Weight: 135.9 kg (299 lb 9.7 oz) 133 kg (293 lb 3.4 oz) 130.8 kg (288 lb 5.8 oz ) Intake/Output Summary: (Last 24 hours) Intake/Output Summary (Last 24 hours) at 07/03/2018 1516 Last data filed at 07/03/2018 1300 Gross per 24 hour Intake 736.77 ml Output 4150 ml Net -3413.23 ml Stool Occurrence: 1 Physical Exam General: A&O, no apparent distress, in the chair Head: Normocephalic, without obvious abnormality, atraumatic Eyes: PERRL, anicteric sclera, conjunctiva and lids normal Nose: Nares normal. Septum midline. Mucosa normal. No drainageor sinus tenderness Neck: Supple, no rigidity Oropharynx: No erythema, exudates, lesions or petechiae Respiratory: Clear to ausculation bilaterally, no crackles/rhonchi/wheezes Cardiovascular: Regular rate, No murmurs, rubs, clicks or gallops Abdomen: BS normal all quadrants, soft, non-tender, non-distended, obese Neurological: No focal deficits. Normal strength and sensation throughout Extremities: BLE peripheral edema, no cyanosis or clubbing Pulses: 3+ and symmetric, all extremities Skin: Color, texturs and turgor normal. No rashes or lesions Psychosocial: Appropriate Lab Review 24-hour labs: Results for orders placed or performed during the hospital encounter of (from the past 24 hour(s)) POC GLUCOSE Collection Time: 07/02/18 5:33 PM Result Value Ref Range Glucose, POC 109 (H) 70 - 100 MG/DL POC GLUCOSE Collection Time: 07/02/18 10:24 PM Result Value Ref Range Glucose, POC 137 (H) 70 - 100 MG/DL PROTIME INR (PT) Collection Time: 07/03/18 4:22 AM Result Value Ref Range INR 1.5 (H) 0.8 - 1.2 PTT (APTT) Collection Time: 07/03/18 4:22 AM Result Value Ref Range APTT 32.1 24.0 - 36.5 SEC CBC AND DIFF Collection Time: 07/03/18 4:22 AM Result Value Ref Range White Blood Cells 22.3 (H) 4.5 - 11.0 K/UL RBC 2.74 (L) 4.0 - 5.0 M/UL Hemoglobin 7.9 (L) 12.0 - 15.0 GM/DL Hematocrit 24.7 (L) 36 - 45 % MCV 90.0 80 - 100 FL MCH 28.8 26 - 34 PG MCHC 32.0 32.0 - 36.0 G/DL RDW 22.9 (H) 11 - 15 % Platelet Count 16 (LL) 150 - 400 K/UL MPV 10.8 7 - 11 FL Segmented Neutrophils 62 41 - 77 % Bands 2 0 - 10 % Lymphocytes 13 (L) 24 - 44 % Monocytes 19 (H) 4 - 12 % Eosinophil 4 0 - 5 % ANISO PRESENT Target PRESENT Platelet Estimate MKD DEC Absolute Neutrophil Count Manual 14.40 (H) 1.8 - 7.0 K/UL Acanthocytes PRESENT COMPREHENSIVE METABOLIC PANEL Collection Time: 07/03/18 4:22 AM Result Value Ref Range Sodium 141 137 - 147 MMOL/L Potassium 4.2 3.5 - 5.1 MMOL/L Chloride 97 (L) 98 - 110 MMOL/L Glucose 102 (H) 70 - 100 MG/DL Blood Urea Nitrogen 32 (H) 7 - 25 MG/DL Creatinine 1.13 (H) 0.4 - 1.00 MG/DL Calcium 8.7 8.5 - 10.6 MG/DL Total Protein 6.0 6.0 - 8.0 G/DL Total Bilirubin 1.3 (H) 0.3 - 1.2 MG/DL Albumin 3.2 (L) 3.5 - 5.0 G/DL Alk Phosphatase 87 25 - 110 U/L AST (SGOT) 43 (H) 7 - 40 U/L CO2 38 (H) 21 - 30 MMOL/L ALT (SGPT) 17 7 - 56 U/L Anion Gap 6 3 - 12 eGFR Non 50 (L) >60 mL/min eGFR >60 >60 mL/min MAGNESIUM Collection Time: 07/03/18 4:22 AM Result Value Ref Range Magnesium 1.9 1.6 - 2.6 mg/dL PHOSPHORUS Collection Time: 07/03/18 4:22 AM Result Value Ref Range Phosphorus 4.2 2.0 - 4.5 MG/DL TYPE & CROSSMATCH Collection Time: 07/03/18 4:22 AM Result Value Ref Range Units Ordered 0 Crossmatch Expires 07/06/2018 Record Check FOUND ABO/RH(D) A POS Antibody Screen NEG Electronic Crossmatch YES VITAMIN B12 Collection Time: 07/03/18 4:22 AM Result Value Ref Range Vitamin B12 1,245 (H) 180 - 914 PG/ML FOLATE, SERUM Collection Time: 07/03/18 4:22 AM Result Value Ref Range Serum Folate 9.5 >3.9 NG/ML POC GLUCOSE Collection Time: 07/03/18 8:22 AM Result Value Ref Range Glucose, POC 128 (H) 70 - 100 MG/DL POC GLUCOSE Collection Time: 07/03/18 12:09 PM Result Value Ref Range Glucose, POC 127 (H) 70 - 100 MG/DL BASIC METABOLIC PANEL Collection Time: 07/03/18 1:02 PM Result Value Ref Range Sodium 141 137 - 147 MMOL/L Potassium 4.3 3.5 - 5.1 MMOL/L Chloride 96 (L) 98 - 110 MMOL/L CO2 40 (H) 21 - 30 MMOL/L Anion Gap 5 3 - 12 Glucose 166 (H) 70 - 100 MG/DL Blood Urea Nitrogen 31 (H) 7 - 25 MG/DL Creatinine 1.17 (H) 0.4 - 1.00 MG/DL Calcium 8.7 8.5 - 10.6 MG/DL eGFR Non 48 (L) >60 mL/min eGFR 58 (L) >60 mL/min Point of Care Testing (Last 24 hours) Radiology and other Diagnostics Review: Pertinent radiology reviewed. Alivia Hopper APRN Pager [phone] * Brian Guzman, RN - 07/03/2018 8:14 AM CDT Inpatient Pain Management Nurses - Clinical [facility] - Follow -Up Primary team is responsible for entering orders. Suggested Plan for the Day: Originally consulted on 06/26/2018 by primary team. Have continued to follow daily and see patient sparingly. Chart reviewed. Will sign off. Thank you for allowing us to assist in the care of this patient. Please call with questions/concerns. O: Oral morphine equivalent (OME) used over past 24 hours (7:01 AM - 7:00 AM)- ~ 10 mg Current Analgesic Regimen, OME: Current Facility-Administered Medications: acetaminophen (TYLENOL) tablet 650 mg, 650 mg, Oral, Q6H PRN, Beck Chaidez MD, 650 mg at 06/28/18 1336 alteplase (CATHFLO ACTIVASE) injection 2 mg, 2 mg, Injection, PRN (Concession Attendant from Rx), Kelton Restrepo MD, 2 mg at 06/27/18 0427 amitriptyline (ELAVIL) tablet 25 mg, 25 mg, Oral, QHS, Timothy Guzman MD , 25 mg at 07/02/[address] (CYMBALTA) capsule 30 mg, 30 mg, Oral, QDAY, Timothy Guzman MD, 30 mg at 07/02/18 0818 eltrombopag (PROMACTA) tab 100 mg [Patient's Own Medication], 100 mg, Oral, QDAY(06), Beck Chaidez MD, 100 mg at 07/03/18 0700 furosemide (LASIX) 500 mg in 50 mL IV drip syr (max conc), 10 mg/hr, Intravenous, Continuous, Lei Calabrese MD, Last Rate: 1 mL/hr at 07/02/18 1735, 10 mg/hr at 07/02/18 1735 insulin aspart U-100 (NOVOLOG FLEXPEN) injection PEN 0-6 Units, 0-6 Units, Subcutaneous, ACHS (22), Lupillo Coto MD, 1 Units at 06/28/18 1034 insulin aspart U-100 (NOVOLOG FLEXPEN) injection PEN 8 Units, 8 Units, Subcutaneous, TID w/ meals, Lupillo Coto MD, 8 Units at 07/02/18 1733 insulin glargine (LANTUS SOLOSTAR, BASAGLAR) injection PEN 40 Units, 40 Units, Subcutaneous, QHS(22), Lupillo Coto MD, 40 Units at 07/02/18 2315 lactulose oral solution 20 g, 20 g, Oral, TID, Lupillo Coto MD, 20 g at 07/03/18 0659 metoprolol tartrate (LOPRESSOR) tablet 12.5 mg, 12.5 mg, Oral, BID, Timothy Guzman MD, 12.5 mg at 07/02/182023 nystatin (NYSTOP) topical powder, , Topical, BID, Lupillo Coto MD ondansetron (ZOFRAN) tablet 4 mg, 4 mg, Oral, Q8H PRN, Ed Escalante MD, 4 mg at 06/29/18 1244 oxyCODONE (ROXICODONE, OXY-IR) tablet 5-10 mg, 5-10 mg, Oral, Q6H PRN, Pablito Payne MD, 10 mg at 07/02/18 1324 pregabalin (LYRICA) capsule 75 mg, 75 mg, Oral, BID, Lupillo Burton MD , 75 mg at 07/02/182023 rifAXIMin (XIFAXAN) tablet 550 mg, 550 mg, Oral, BID, Lupillo Coto MD , 550 mg at 07/02/182023 tiZANidine (ZANAFLEX) tablet 4 mg, 4 mg, Oral, Q8H PRN, Timothy Guzman MD , 4 mg at 07/01/18 1703 vitamins, multi w/minerals tablet 1 tablet, 1 tablet, Oral, QDAY, Lupillo Burton MD, 1 tablet at 07/02/18 0818 Brian Guzman, MSN, RN- Clinical Nurse Coordinator Pain Management [phone] Team pager [phone] * Rodrigo Soler MD - 07/03/2018 6:23 AM CDT General Progress Note Name: Niecy Richey Today's Date: 07/03/2018 Admission Date: 06/24/2018 LOS: 9 days Assessment/Plan: Active Problems: End stage liver disease (HCC) Metabolic acidosis Acidosis Severe malnutrition (HCC) 52 year-old female with 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 Prior to transfer had been in the hospital for a week with pneumonia requiring intubation, weaned to 2 L O2 prior to transfer. She completed a course of Zosyn for possible pnuemonia on 06/27. Currently on lasix gtt, now diuresing well. Volume overload Acute on chronic diastolic heart failure Pulmonary hypertension, likely owing to left heart disease, chronic hypoxia/OHS/ NABIL Hypertension - Echo with LVEF 70%, unable to assess diastolic fillling, normal RV, elevated CVP>15 mmHg, mild to moderate MS, estimated PASP 62 mmHg - Admission CXR with evidence of volume overload - pulmonary vascular congestion , small to moderate L pleural effusion, cardiomegaly, BNP 967. - Continue Lasix gtt @ 10 mg/hr - Strict I/Os, daily weights, low Na diet with 1.5L fluid restriction. - BID BMPs, keep K>4, Mg >2; replete today - Holding lisinopril due to MARIN; should discontinue permanently with her decompensated cirrhosis - Continue metoprolol 12.5 mg bid. Added spironolactone - Cardiology following, appreciate their assistance - Weight from 321 to 288. Likely has another 15lb to go Acute on chronic hypoxic respiratory failure, improved - Completed 10 day course of antibiotics (vancomycin and zosy)n for HCAP. Intubated at OSH, extubated prior to transfer, now on home 2 L. Due to volume overload +/- infection. - Diuresis as above - Incentive spirometry Acute kidney injury, improving - Suspect cardiorenal physiology, as Cr of 1.7-1.9 improving steadily with diuresis - Monitor renal function H/o ITP s/p splenectomy (age 6) Recurrent thrombocytopenia Follows with [facility] - Dr. Vallurupalli - Continue eltrombopag, had been held earlier at OSH; withdrawalislikely the cause of worsening plt count - Holding heparin, although HIT score 3, low suspicion of HIT - Hematology consulted - Daily hemolysis/DIC labs for now - No indication for IVIG unless bleeding, surgical procedures - Have sent type/screen, consented for transfusion if needed Persistent leukocytosis ~17-20k, afebrile, likely related to prior splenectomy - chronic Decompensated cirrhosis - Due to MCGOWAN, HCV. Complicated by HE. No ascites on abdominal US 06/09/18; liver nodule as below; AFP 3 05/2018. Not a candidate for OLT due to BMI. S/p treatment for HCV with interferon and ribavirin 2012 with SVR. No prior EGD for EV screening on file. 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 Low suspicion for malignancy. Recommended f/u in 3-6 months NABIL, OHS - Required rescue Bipap in the MICU. Started on autopap at night Type 2 diabetes - A1c 5.8% 06/08/18 - Continue lantus 40 un qhs, aspart 8 un tid with meals, low dose sliding scale aspart Peripheral neuropathy - Continue home tizanidine -Havechangedgabapentin to pregabalin 75 mg bid - Currently on oxycodone as well, wean as tolerated - Pain mgmt following Abnormal cosynotropinstimulation test - Cortisol 2.7 on random draw. ACTH stim test with baseline- 1.1, 30min 7.2, 60min 9.9. Endo consulted due to abnormal stim test - Will need repeat in outpatient setting Depression - Continue home amitriptyline and duloxetine FEN - No IVF - Low Na diet - Monitor lytes VTE proph: SCDs Code status: Full code Disposition:continue inpatient admission Subjective Niecy Richey is a 52 y.o. female. Patient complaints of weakness, abdominal cramps. N ofever, chills, chest pain. Shortness of breath is improving. Medications Scheduled Meds: amitriptyline (ELAVIL) tablet 25 mg 25 mg Oral QHS duloxetine DR (CYMBALTA) capsule 30 mg 30 mg Oral QDAY eltrombopag (PROMACTA) tab 100 mg [Patient's Own Medication] 100 mg Oral QDAY() insulin aspart U-100 (NOVOLOG FLEXPEN) injection PEN 0-6 Units 0-6 Units Subcutaneous ACHS () insulin aspart U-100 (NOVOLOG FLEXPEN) injection PEN 8 Units 8 Units Subcutaneous TID w/ meals insulin glargine (LANTUS SOLOSTAR, BASAGLAR) injection PEN 40 Units 40 Units Subcutaneous QHS() lactulose oral solution 20 g 20 g Oral TID metoprolol tartrate (LOPRESSOR) tablet 12.5 mg 12.5 mg Oral BID nystatin (NYSTOP) topical powder Topical BID pregabalin (LYRICA) capsule 75 mg 75 mg Oral BID rifAXIMin (XIFAXAN) tablet 550 mg 550 mg Oral BID vitamins, multi w/minerals tablet 1 tablet 1 tablet Oral QDAY Continuous Infusions: furosemide (LASIX) 500 mg in 50 mL IV drip syr (max conc) 10 mg/hr ( 1735) PRN and Respiratory Meds:acetaminophen Q6H PRN, alteplase PRN (Concession Attendant from Rx) , ondansetron Q8H PRN, oxyCODONE Q6H PRN, tiZANidine Q8H PRN Objective: Vital Signs: Last Filed Vital Signs: 24 Hour Range BP: 127/74 (07/03 329) Temp: 36.7 C (98.1 F) (07/03 426) Pulse: 69 (07/03 426) Respirations: 19 PER MINUTE (07/03 329) SpO2: 95 % (07/03 329) O2 Delivery: Nasal Cannula (07/03 329) BP: (127-150)/(54-74) Temp: [36.3 C (97.3 F)-36.8 C (98.3 F)] Pulse: [63-74] Respirations: [18 PER MINUTE-19 PER MINUTE] SpO2: [2 %-98 %] O2 Delivery: Nasal Cannula Intensity Pain Scale (Self Report): Asleep (07/03/18 0000) Vitals: 07/02/18 1500 07/03/18 0330 07/03/18 0511 Weight: 135.9 kg (299 lb 9.7 oz) 133 kg (293 lb 3.4 oz) 130.8 kg (288 lb 5.8 oz ) Intake/Output Summary: (Last 24 hours) Intake/Output Summary (Last 24 hours) at 07/03/2018 06 Last data filed at 07/03/2018 0425 Gross per 24 hour Intake 532 ml Output 4000 ml Net -3468 ml Stool Occurrence: 0 Physical Exam GENERAL: calm, cooperative, no acute distress HEAD and NECK: EOMI, PERRL, neck supple CARDIOVASCULAR: normal rate, regular rhythm, no murmurs, rubs, or gallops. PULMONARY: lungs clear to auscultation bilaterally - no rhonchi, rales, wheezing. @L O2 ABDOMEN: soft, nontender, nondistended, no rebound or guarding GENITOURINARY: + nichole in place EXTREMITIES: extremities warm, well-perfused, 1+ LE edema. Normal peripheral pulses. SKIN: no rashes on exposed skin Lab Review 24-hour labs: Results for orders placed or performed during the hospital encounter of (from the past 24 hour(s)) POC GLUCOSE Collection Time: 07/02/18 11:51 AM Result Value Ref Range Glucose, POC 122 (H) 70 - 100 MG/DL BASIC METABOLIC PANEL Collection Time: 07/02/18 1:20 PM Result Value Ref Range Sodium 137 137 - 147 MMOL/L Potassium 4.2 3.5 - 5.1 MMOL/L Chloride 95 (L) 98 - 110 MMOL/L CO2 36 (H) 21 - 30 MMOL/L Anion Gap 6 3 - 12 Glucose 175 (H) 70 - 100 MG/DL Blood Urea Nitrogen 35 (H) 7 - 25 MG/DL Creatinine 1.21 (H) 0.4 - 1.00 MG/DL Calcium 9.0 8.5 - 10.6 MG/DL eGFR Non 46 (L) >60 mL/min eGFR 56 (L) >60 mL/min POC GLUCOSE Collection Time: 07/02/18 5:33 PM Result Value Ref Range Glucose, POC 109 (H) 70 - 100 MG/DL POC GLUCOSE Collection Time: 07/02/18 10:24 PM Result Value Ref Range Glucose, POC 137 (H) 70 - 100 MG/DL PROTIME INR (PT) Collection Time: 07/03/18 4:22 AM Result Value Ref Range INR 1.5 (H) 0.8 - 1.2 PTT (APTT) Collection Time: 07/03/18 4:22 AM Result Value Ref Range APTT 32.1 24.0 - 36.5 SEC CBC AND DIFF Collection Time: 07/03/18 4:22 AM Result Value Ref Range White Blood Cells 22.3 (H) 4.5 - 11.0 K/UL RBC 2.74 (L) 4.0 - 5.0 M/UL Hemoglobin 7.9 (L) 12.0 - 15.0 GM/DL Hematocrit 24.7 (L) 36 - 45 % MCV 90.0 80 - 100 FL MCH 28.8 26 - 34 PG MCHC 32.0 32.0 - 36.0 G/DL RDW 22.9 (H) 11 - 15 % Platelet Count 16 (LL) 150 - 400 K/UL MPV 10.8 7 - 11 FL Segmented Neutrophils 62 41 - 77 % Bands 2 0 - 10 % Lymphocytes 13 (L) 24 - 44 % Monocytes 19 (H) 4 - 12 % Eosinophil 4 0 - 5 % ANISO PRESENT Target PRESENT Platelet Estimate MKD DEC Absolute Neutrophil Count Manual 14.40 (H) 1.8 - 7.0 K/UL Acanthocytes PRESENT COMPREHENSIVE METABOLIC PANEL Collection Time: 07/03/18 4:22 AM Result Value Ref Range Sodium 141 137 - 147 MMOL/L Potassium 4.2 3.5 - 5.1 MMOL/L Chloride 97 (L) 98 - 110 MMOL/L Glucose 102 (H) 70 - 100 MG/DL Blood Urea Nitrogen 32 (H) 7 - 25 MG/DL Creatinine 1.13 (H) 0.4 - 1.00 MG/DL Calcium 8.7 8.5 - 10.6 MG/DL Total Protein 6.0 6.0 - 8.0 G/DL Total Bilirubin 1.3 (H) 0.3 - 1.2 MG/DL Albumin 3.2 (L) 3.5 - 5.0 G/DL Alk Phosphatase 87 25 - 110 U/L AST (SGOT) 43 (H) 7 - 40 U/L CO2 38 (H) 21 - 30 MMOL/L ALT (SGPT) 17 7 - 56 U/L Anion Gap 6 3 - 12 eGFR Non 50 (L) >60 mL/min eGFR >60 >60 mL/min MAGNESIUM Collection Time: 07/03/18 4:22 AM Result Value Ref Range Magnesium 1.9 1.6 - 2.6 mg/dL PHOSPHORUS Collection Time: 07/03/18 4:22 AM Result Value Ref Range Phosphorus 4.2 2.0 - 4.5 MG/DL TYPE & CROSSMATCH Collection Time: 07/03/18 4:22 AM Result Value Ref Range Units Ordered 0 Crossmatch Expires 07/06/2018 Record Check FOUND ABO/RH(D) A POS Antibody Screen NEG Electronic Crossmatch YES Point of Care Testing (Last 24 hours) Radiology and other Diagnostics Review: Pertinent radiology reviewed. Rodrigo Soler MD Pager [phone] * Susanne Shah APRN-DAYCARE PROVIDER - 07/03/2018 6:07 AM CDT Cardiology Progress Note Admission Date: 06/24/2018 Today's Date: 07/03/2018 LOS: 9 days Niecy Richey is a 52 y.o. 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 The patient had been admitted at [facility] from 06/07 to 06/15/18 for treatment of CAP with acute hypoxic respiratory failure and ESLD with hepatic encephalopathy. Once stable, she was discharged to [facility] inpatient rehab for ongoing PT/OT. Per patient and family, on 06/23 the patient began to retain fluid and gained 11# in one day. She developed SILVERMAN, weight gain, BLEE, abdominal distension, and lower extremity pain 2/2 bilateral swelling. An echocardiogram was done 06/26/18 revealing LVEF 70%, moderate LA dilation, IVC >15, mild to moderate stenosis that appeared mildly more advanced than previous echo in 08/2017, and severe mitral annular calcification. Cardiology consulted to further evaluate patient. Recommendations: Todays: -Per physical exam patient remains hypervolemic. Likely has another 15#of fluid to go. She had 3.5 L of urine output overnight. Continue IV lasix gtt 10 mg/ hr. -Spironolactone 25 mg daily ordered. -Patient tolerating lopressor 12.5 mg bid well at this time. Ongoin. BMP bid. Magnesium level daily. Keep Potassium > 4.0 and Magnesium > 2.0. 2. 2000 mg sodium dietary restriction. 3. Fluid Restriction 1.5L Yes 4. Strict I/O. 5. Standing scale daily weight. 6. Social Media Content Specialist consultation to discuss sodium restricted diet recommended. 7. Pharmacy/Medication counseling recommended. 8. Case Management/Social Work recommended. 9. Physical Therapy consult recommended. 10. Follow Up: appointment with a member of the HF team or PCP within 7 calendar days of discharge. Patient seen and plan formulated with Dr. Bruce Sims. GISELA Chong Telemetry: Sinus rhythm 60s Assessment/ Plan: Acute on chronic hypoxic/hypercarbic respiratory failure 06/07 - 06/15: treated for CAP at [facility] 06/15 - 06/18: inpatient rehab in [place] 06-18 - 06/24: admitted to ICU for respiratory failure, treated for HCAP with zosyn , escalated to meropenem (unclear why the escalation). Required intubation ~72h at OSH, now down to 2L NC. ABG 7.34/38/76 on 2L NC on 06/24 CXR on arrival with volume overloaded appearance. Primary currently questioning FVOL vs HCAP vs Multi-factorial. Procalcitonin 0.17 on 06/24, was 0.09 in 06/08/18. Patient was treated with Zosyn and vancomycin during admission. Persistent Leukocytosis WBC 27.0on 06/26, improving. Patient remains afebrile Acute diastolicHFpEF, EF: 70% Likely NICM. Major Complications or Comorbidities ([facility]): acute respiratory failure NYHA functional class III (marked limitation of physical activity - comfortable at rest, but less than ordinary activity causes symptoms of HF e.g., getting dressed or standing from a sitting position), ACC Stage C (structural heart disease with prior or current symptoms of HF). She presents with signs of hypervolemiawithout signs of low flow state. Admission BNP: 967 Chest x ray 06/24/18: Findings consistent with CHF/volume overload including cardiomegaly, pulmonary vascular congestion and small to moderate left pleural effusion. Echocardiogram 06/26/18revealed LVEF 70%, normal size and shape LV, concentric remodeling, unable to assess diastolic function. RV normal size and EF. LA moderately dilated. RA normal size. IVC >15. Calcified thickening of mitral leaflets. Mild to moderate stenosis which appears increased in comparison to previous echo in 08/2016. There is trace MR and severe mitral annular calcification. Mild TR. 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 She denies formal cardiac work up in the past - no stress test, LHC, etc. Intake/Output:3.5 L urine overnight, -3.1 L in 24 hours, -20.8 L total. Goal Dry Weight: will shoot for 275#. (May - June 2017 patient weighed 282 #. July - October 2017 patient weighed 271-274#. May 2018 patient weighed 283#. Admission weight 321# ( doubt weights are accurate). Vitals: 07/02/18 1500 07/03/18 0330 07/03/18 0511 Weight: 135.9 kg (299 lb 9.7 oz) 133 kg (293 lb 3.4 oz) 130.8 kg (288 lb 5.8 oz ) Diuretic Therapy Prior to admission dose Bumex 1 mg daily Given on admission Daily Dosing 06/25 IV Lasix 40 mg twice daily 06/26 IV lasix 40 mg x1, increased to 80 mg bid starting with afternoon dose 06/27 IV lasix gtt 10 mg/ hr and then increased to 20 mg/hr 06/28 lasix gtt at 20 mg/hr + diuril 250 mg x1 06/29 Lasix drip at 10 mg/h GDMT MARINE ENGINE MECHANIC Changes BB recently was started on Toprol-XL 100 mg daily, held upon admission. 06/27 lopressor 25 mg bid started per primary. 06/28 lopressor held, marginal BP and HR 50-60s Restarted lopressor 12.5 mg BID 06/29/18 ACEI/ARB/ARNI recently on lisinopril, however, d/c and started on BB/ Aldosterone Antagonist Hydralazine/Nitrate Ivabradine HRMT Anticoagulation for Afib/flutter Mild to moderate mitral valve stenosis Severe mitral annular calcification Echo 08/30/16revealed severe mitral annular calcification without evidence of significant stenosis or regurgitation. Most recent echo 06/26/18:Calcific thickening of mitral leaflets. Mild to moderate stenosis. Mean gr 7 mm Hg @ HR 67 bpm. Trace regurgitation. There is severe mitral annular calcification. Mitral valve disease not felt to be a driving force behind patient's fluid retention or symptoms of heart failure at this time. 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 BP stable. systolic's running 112-130's. MARIN Admission creatinine 1.72, improving with diuresis. Baseline creatinine 0.8-1.0 DMII - insulin dependent, HgA1C 5.8. 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 Per GI/Hepatology note on 06/09/18 during previous hospitalization, patient recommended to get EGD done in outpatient setting as she was due for a screening. Hx of ITP s/p splenectomy Platelets 95. Patient denies recent bleeding issues. Chronic lower back and right hip pain Primary managing, pain management consulted. Questionable NABIL-no history of sleep study. Subjective No events overnight. Denies chest pains or shortness of Breathe. Patient reports that her lower extremity edema continues to improve and that she is feeling better each day. Medications Scheduled Meds: amitriptyline (ELAVIL) tablet 25 mg 25 mg Oral QHS duloxetine DR (CYMBALTA) capsule 30 mg 30 mg Oral QDAY eltrombopag (PROMACTA) tab 100 mg [Patient's Own Medication] 100 mg Oral QDAY(06) insulin aspart U-100 (NOVOLOG FLEXPEN) injection PEN 0-6 Units 0-6 Units Subcutaneous ACHS (22) insulin aspart U-100 (NOVOLOG FLEXPEN) injection PEN 8 Units 8 Units Subcutaneous TID w/ meals insulin glargine (LANTUS SOLOSTAR, BASAGLAR) injection PEN 40 Units 40 Units Subcutaneous QHS(22) lactulose oral solution 20 g 20 g Oral TID metoprolol tartrate (LOPRESSOR) tablet 12.5 mg 12.5 mg Oral BID nystatin (NYSTOP) topical powder Topical BID pregabalin (LYRICA) capsule 75 mg 75 mg Oral BID rifAXIMin (XIFAXAN) tablet 550 mg 550 mg Oral BID vitamins, multi w/minerals tablet 1 tablet 1 tablet Oral QDAY Continuous Infusions: furosemide (LASIX) 500 mg in 50 mL IV drip syr (max conc) 10 mg/hr ( 1735) PRN and Respiratory Meds:acetaminophen Q6H PRN, alteplase PRN (Concession Attendant from Rx) , ondansetron Q8H PRN, oxyCODONE Q6H PRN, tiZANidine Q8H PRN Objective Vital Signs: Last Filed Vital Signs: 24 Hour Range BP: 127/74 (07/03 329) Temp: 36.7 C (98.1 F) (07/03 426) Pulse: 69 (07/03 426) Respirations: 19 PER MINUTE (07/03 329) SpO2: 95 % (07/03 329) O2 Delivery: Nasal Cannula (07/03 329) BP: (127-150)/(54-74) Temp: [36.3 C (97.3 F)-36.8 C (98.3 F)] Pulse: [63-74] Respirations: [18 PER MINUTE-19 PER MINUTE] SpO2: [2 %-98 %] O2 Delivery: Nasal Cannula Intensity Pain Scale (Self Report): Asleep (07/03/18 0000) Vitals: 07/02/18 1500 07/03/18 0330 07/03/18 0511 Weight: 135.9 kg (299 lb 9.7 oz) 133 kg (293 lb 3.4 oz) 130.8 kg (288 lb 5.8 oz ) Intake/Output Summary: (Last 24 hours) Intake/Output Summary (Last 24 hours) at 07/03/2018 0608 Last data filed at 07/03/2018 0425 Gross per 24 hour Intake 532 ml Output 4000 ml Net -3468 ml Body mass index is 45.16 kg/m. Physical Exam GEN: no acute distress, morbidly obese, supplemental O2 JVD: difficult to assess HEENT: nontraumatic, EOM-intact; wears glasses CHEST: clear to auscultation bilaterally CV: Reg rhythm, nml rate; nml S1 & S2, no S3 or S4; no rub; grade 2/6 systolic murmur EXT: +3 peripheral edema, ?Chronicity. 2+ distal pulses Lab Review Results for orders placed or performed during the hospital encounter of (from the past 24 hour(s)) POC GLUCOSE Collection Time: 07/02/18 7:43 AM Result Value Ref Range Glucose, POC 147 (H) 70 - 100 MG/DL POC GLUCOSE Collection Time: 07/02/18 11:51 AM Result Value Ref Range Glucose, POC 122 (H) 70 - 100 MG/DL BASIC METABOLIC PANEL Collection Time: 07/02/18 1:20 PM Result Value Ref Range Sodium 137 137 - 147 MMOL/L Potassium 4.2 3.5 - 5.1 MMOL/L Chloride 95 (L) 98 - 110 MMOL/L CO2 36 (H) 21 - 30 MMOL/L Anion Gap 6 3 - 12 Glucose 175 (H) 70 - 100 MG/DL Blood Urea Nitrogen 35 (H) 7 - 25 MG/DL Creatinine 1.21 (H) 0.4 - 1.00 MG/DL Calcium 9.0 8.5 - 10.6 MG/DL eGFR Non 46 (L) >60 mL/min eGFR 56 (L) >60 mL/min POC GLUCOSE Collection Time: 07/02/18 5:33 PM Result Value Ref Range Glucose, POC 109 (H) 70 - 100 MG/DL POC GLUCOSE Collection Time: 07/02/18 10:24 PM Result Value Ref Range Glucose, POC 137 (H) 70 - 100 MG/DL PROTIME INR (PT) Collection Time: 07/03/18 4:22 AM Result Value Ref Range INR 1.5 (H) 0.8 - 1.2 PTT (APTT) Collection Time: 07/03/18 4:22 AM Result Value Ref Range APTT 32.1 24.0 - 36.5 SEC CBC AND DIFF Collection Time: 07/03/18 4:22 AM Result Value Ref Range White Blood Cells 4.5 - 11.0 K/UL RBC 4.0 - 5.0 M/UL Hemoglobin 12.0 - 15.0 GM/DL Hematocrit 36 - 45 % MCV 80 - 100 FL MCH 26 - 34 PG MCHC 32.0 - 36.0 G/DL RDW 11 - 15 % Platelet Count 150 - 400 K/UL MPV 7 - 11 FL COMPREHENSIVE METABOLIC PANEL Collection Time: 07/03/18 4:22 AM Result Value Ref Range Sodium 141 137 - 147 MMOL/L Potassium 4.2 3.5 - 5.1 MMOL/L Chloride 97 (L) 98 - 110 MMOL/L Glucose 102 (H) 70 - 100 MG/DL Blood Urea Nitrogen 32 (H) 7 - 25 MG/DL Creatinine 1.13 (H) 0.4 - 1.00 MG/DL Calcium 8.7 8.5 - 10.6 MG/DL Total Protein 6.0 6.0 - 8.0 G/DL Total Bilirubin 1.3 (H) 0.3 - 1.2 MG/DL Albumin 3.2 (L) 3.5 - 5.0 G/DL Alk Phosphatase 87 25 - 110 U/L AST (SGOT) 43 (H) 7 - 40 U/L CO2 38 (H) 21 - 30 MMOL/L ALT (SGPT) 17 7 - 56 U/L Anion Gap 6 3 - 12 eGFR Non 50 (L) >60 mL/min eGFR >60 >60 mL/min MAGNESIUM Collection Time: 07/03/18 4:22 AM Result Value Ref Range Magnesium 1.9 1.6 - 2.6 mg/dL PHOSPHORUS Collection Time: 07/03/18 4:22 AM Result Value Ref Range Phosphorus 4.2 2.0 - 4.5 MG/DL TYPE & CROSSMATCH Collection Time: 07/03/18 4:22 AM Result Value Ref Range Units Ordered 0 Crossmatch Expires 07/06/2018 Record Check FOUND ABO/RH(D) A POS Antibody Screen NEG Electronic Crossmatch YES Associated attestation - Angelic Dennis MD - 07/04/2018 5:57 PM CDT I personally interviewed and examined the patient. I have examined the patient, reviewed the history, physical impression and plan outlined by the NELLA, Susanne Shah and agree with my edits as outlined below. Continue IV diuresis, patient is still volume up. Patient was seen on 07/03/2018 Angelic Sims MD, MS [facility] Pager: [phone] * Davide Villarreal, RN - 07/03/2018 5:11 AM CDT Heart Failure Nursing Progress Note Admission Date: 06/24/2018 LOS: 9 days Admission Weight: (!) 146 kg (321 lb 14 oz) Most recent weights (inpatient): Vitals: 07/02/18 1500 07/03/18 0330 07/03/18 0511 Weight: 135.9 kg (299 lb 9.7 oz) 133 kg (293 lb 3.4 oz) 130.8 kg (288 lb 5.8 oz ) Weight change from previous day:-5.1kg Fluid restriction ordered: 1500 ml Intake/Output Summary: (Last 24 hours) Intake/Output Summary (Last 24 hours) at 07/03/2018 0511 Last data filed at 07/03/2018 0425 Gross per 24 hour Intake 532 ml Output 4000 ml Net -3468 ml Is patient incontinent No-Nichole Anticipated discharge date: ongoing Discharge goals: increase ADLs * Jacquie Bocanegra RN - 07/02/2018 7:31 PM CDT Heart Failure Nursing Progress Note Admission Date: 06/24/2018 LOS: 8 days Admission Weight: (!) 146 kg (321 lb 14 oz) Most recent weights (inpatient): Vitals: 07/02/18 0500 07/02/18 0653 07/02/18 1500 Weight: 62.5 kg (137 lb 11.2 oz) (!) 136.2 kg (300 lb 4.3 oz) 135.9 kg (299 lb 9.7 oz) Weight change from previous day: -1.2 kg Fluid restriction ordered: 1.5L FR Intake/Output Summary: (Last 24 hours) Intake/Output Summary (Last 24 hours) at 07/02/2018 1931 Last data filed at 07/02/2018 1850 Gross per 24 hour Intake 641.9 ml Output 4300 ml Net -3658.1 ml Is patient incontinent No Anticipated discharge date: Ongoing Discharge goals: Ambulating with less pain. 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 Prior to transfer had been in the hospital for a week with pneumonia requiring intubation, weaned to 2 L O2 prior to transfer. She completed a course of Zosyn for possible pnuemonia on 06/27. Currently on lasix gtt, now diuresing well. Volume overload Acute on chronic diastolic heart failure Pulmonary hypertension, likely owing to left heart disease, chronic hypoxia/OHS/ NABIL Hypertension - Echo with LVEF 70%, unable to assess diastolic fillling, normal RV, elevated CVP>15 mmHg, mild to moderate MS, estimated PASP 62 mmHg - Admission CXR with evidence of volume overload - pulmonary vascular congestion , small to moderate L pleural effusion, cardiomegaly, BNP 967. - Unclear dry weight (~270s?); admission weight 321 lb Plan - Continue Lasix gtt @ 10 mg/hr - Strict I/Os, daily weights, low Na diet with 1.5L fluid restriction. - BID BMPs, keep K>4, Mg >2; replete today - Holding lisinopril due to MARIN; should discontinue permanently with her decompensated cirrhosis - Continue metoprolol 12.5 mg bid - Cardiology following, appreciate their assistance Acute on chronic hypoxic respiratory failure, improved Completed 10 day course of antibiotics (vancomycin and zosy)n for HCAP. Intubated at OSH, extubated prior to transfer, now on home 2 L. Due to volume overload +/- infection. Plan - Diuresis as above - Incentive spirometry Acute kidney injury, improving Suspect cardiorenal physiology, as Cr of 1.7-1.9 improving steadily with diuresis - Monitor renal function H/o ITP s/p splenectomy (age 6) Recurrent thrombocytopenia Follows with [facility] - Dr. Moran - Continue eltrombopag, had been held earlier at OSH; withdrawal is likely the cause of worsening plt count - Holding heparin, although HIT score 3, low suspicion of HIT - Hematology consulted - Daily hemolysis/DIC labs for now - No indication for IVIG unless bleeding, surgical procedures - Have sent type/screen, consented for transfusion if needed Persistent leukocytosis ~17-20k, afebrile, likely related to prior splenectomy - chronic Decompensated cirrhosis Due to MCGOWAN, HCV. Complicated by HE. No ascites on abd u/s 06/09/18; liver nodule as below; AFP 3 05/2018. Not a candidate for OLT due to BMI. S/p treatment for HCV with interferon and ribavirin 2012 with SVR. No prior EGD for EV screening on file. Plan - Diuresis as above - Continue home lactulose, rifaximin Depression - continue home amitriptyline and duloxetine Neuropathy - continue home tizanidine - have changed gabapentin to pregabalin 75 mg bid - currently on oxycodone as well, wean as tolerated - pain mgmt following Liver nodule Abd u/s 06/09/18 with 3.9 x 1.4 x 2.7 cm nodule with absent blood flow in between L liver lobe and pancreas - Plan on CT a/p to further evaluate today, as recommended by radiology NABIL, OHS Required rescue Bipap in the MICU. Started on autopap at night Type 2 diabetes A1c 5.8% 06/08/18 - continue lantus 40 un qhs, aspart 8 un tid with meals, low dose sliding scale aspart Abnormal Cosynotropin Stimulation Test - Cortisol 2.7 on random draw. ACTH stim test with baseline- 1.1, 30min 7.2, 60min 9.9. Endo consulted due to abnormal stim test - will need repeat in outpatient setting PPx: SCDs FEN: monitor lytes, low Na diet, no IVF Full code Dispo continue inpatient admission Jason Burton MD Hospitalist Pager [phone] Subjective, ROS Niecy Richey is a 52 y.o. female. Dyspnea continues to improve. On 2L O2. Net negative 3.56 L in the last 24 hours. Weight 304. Having BMs, no chest pain, n/v , bleeding, MERRILL, diarrhea/constipation. Mild leg swelling still. Reviewed labs with her today - plt continue to drop slowly, no bleeding. Medications Scheduled Meds: amitriptyline (ELAVIL) tablet 25 mg 25 mg Oral QHS duloxetine DR (CYMBALTA) capsule 30 mg 30 mg Oral QDAY eltrombopag (PROMACTA) tab 100 mg [Patient's Own Medication] 100 mg Oral QDAY(06) insulin aspart U-100 (NOVOLOG FLEXPEN) injection PEN 0-6 Units 0-6 Units Subcutaneous ACHS (22) insulin aspart U-100 (NOVOLOG FLEXPEN) injection PEN 8 Units 8 Units Subcutaneous TID w/ meals insulin glargine (LANTUS SOLOSTAR, BASAGLAR) injection PEN 40 Units 40 Units Subcutaneous QHS(22) lactulose oral solution 20 g 20 g Oral TID metoprolol tartrate (LOPRESSOR) tablet 12.5 mg 12.5 mg Oral BID nystatin (NYSTOP) topical powder Topical BID pregabalin (LYRICA) capsule 75 mg 75 mg Oral BID rifAXIMin (XIFAXAN) tablet 550 mg 550 mg Oral BID vitamins, multi w/minerals tablet 1 tablet 1 tablet Oral QDAY Continuous Infusions: furosemide (LASIX) 500 mg in 50 mL IV drip syr (max conc) 10 mg/hr ( 0606) PRN and Respiratory Meds:acetaminophen Q6H PRN, alteplase PRN (Concession Attendant from Rx) , ondansetron Q8H PRN, oxyCODONE Q6H PRN, tiZANidine Q8H PRN Objective Vital Signs: Last Filed Vital Signs: 24 Hour Range BP: 150/73 (07/03 1151) Temp: 36.6 C (97.9 F) (07/03 1151) Pulse: 72 (07/03 1151) Respirations: 18 PER MINUTE (07/03 1151) SpO2: 97 % (07/03 1151) O2 Delivery: Nasal Cannula (07/03 1151) BP: (130-150)/(53-73) Temp: [36.3 C (97.3 F)-37.2 C (98.9 F)] Pulse: [61-72] Respirations: [18 PER MINUTE] SpO2: [2 %-98 %] O2 Delivery: Nasal Cannula Intensity Pain Scale (Self Report): Asleep (07/02/18 0415) Vitals: 07/01/18 0500 07/02/18 0500 07/02/18 0653 Weight: (!) 137.4 kg (302 lb 14.6 oz) 62.5 kg (137 lb 11.2 oz) (!) 136.2 kg ( 300 lb 4.3 oz) Intake/Output Summary: (Last 24 hours) Intake/Output Summary (Last 24 hours) at 07/02/2018 1357 Last data filed at 07/02/2018 1245 Gross per 24 hour Intake 870.48 ml Output 4025 ml Net -3154.52 ml Stool Occurrence: 1 Physical Exam GENERAL: calm, cooperative, no acute distress HEAD and NECK: EOMI, PERRL, neck supple CARDIOVASCULAR: normal rate, regular rhythm, no murmurs, rubs, or gallops. PULMONARY: lungs clear to auscultation bilaterally - no rhonchi, rales, wheezing. @L O2 ABDOMEN: soft, nontender, nondistended, no rebound or guarding GENITOURINARY: + nichole in place EXTREMITIES: extremities warm, well-perfused, 1+ LE edema. Normal peripheral pulses. SKIN: no rashes on exposed skin Lab Review 24-hour labs: Results for orders placed or performed during the hospital encounter of (from the past 24 hour(s)) POC GLUCOSE Collection Time: 07/01/18 5:14 PM Result Value Ref Range Glucose, POC 120 (H) 70 - 100 MG/DL POC GLUCOSE Collection Time: 07/01/18 9:25 PM Result Value Ref Range Glucose, POC 210 (H) 70 - 100 MG/DL PROTIME INR (PT) Collection Time: 07/02/18 5:05 AM Result Value Ref Range INR 1.5 (H) 0.8 - 1.2 PTT (APTT) Collection Time: 07/02/18 5:05 AM Result Value Ref Range APTT 29.7 24.0 - 36.5 SEC LDH-LACTATE DEHYDROGENASE Collection Time: 07/02/18 5:05 AM Result Value Ref Range Lactate Dehydrogenase 396 (H) 100 - 210 U/L HAPTOGLOBIN Collection Time: 07/02/18 5:05 AM Result Value Ref Range Haptoglobin 49 16 - 200 MG/DL CBC AND DIFF Collection Time: 07/02/18 5:05 AM Result Value Ref Range White Blood Cells 18.8 (H) 4.5 - 11.0 K/UL RBC 2.57 (L) 4.0 - 5.0 M/UL Hemoglobin 7.4 (L) 12.0 - 15.0 GM/DL Hematocrit 22.8 (L) 36 - 45 % MCV 88.6 80 - 100 FL MCH 28.8 26 - 34 PG MCHC 32.5 32.0 - 36.0 G/DL RDW 22.2 (H) 11 - 15 % Platelet Count 16 (LL) 150 - 400 K/UL MPV 8.9 7 - 11 FL Neutrophils 57 41 - 77 % Lymphocytes 23 (L) 24 - 44 % Monocytes 14 (H) 4 - 12 % Eosinophils 5 0 - 5 % Basophils 1 0 - 2 % Absolute Neutrophil Count 10.80 (H) 1.8 - 7.0 K/UL Absolute Lymph Count 4.30 1.0 - 4.8 K/UL Absolute Monocyte Count 2.70 (H) 0 - 0.80 K/UL Absolute Eosinophil Count 0.90 (H) 0 - 0.45 K/UL Absolute Basophil Count 0.20 0 - 0.20 K/UL COMPREHENSIVE METABOLIC PANEL Collection Time: 07/02/18 5:05 AM Result Value Ref Range Sodium 138 137 - 147 MMOL/L Potassium 4.3 3.5 - 5.1 MMOL/L Chloride 98 98 - 110 MMOL/L Glucose 130 (H) 70 - 100 MG/DL Blood Urea Nitrogen 37 (H) 7 - 25 MG/DL Creatinine 1.09 (H) 0.4 - 1.00 MG/DL Calcium 8.8 8.5 - 10.6 MG/DL Total Protein 5.8 (L) 6.0 - 8.0 G/DL Total Bilirubin 1.2 0.3 - 1.2 MG/DL Albumin 3.0 (L) 3.5 - 5.0 G/DL Alk Phosphatase 80 25 - 110 U/L AST (SGOT) 44 (H) 7 - 40 U/L CO2 37 (H) 21 - 30 MMOL/L ALT (SGPT) 18 7 - 56 U/L Anion Gap 3 3 - 12 eGFR Non 52 (L) >60 mL/min eGFR >60 >60 mL/min MAGNESIUM Collection Time: 07/02/18 5:05 AM Result Value Ref Range Magnesium 1.8 1.6 - 2.6 mg/dL PHOSPHORUS Collection Time: 07/02/18 5:05 AM Result Value Ref Range Phosphorus 3.9 2.0 - 4.5 MG/DL POC GLUCOSE Collection Time: 07/02/18 7:43 AM Result Value Ref Range Glucose, POC 147 (H) 70 - 100 MG/DL POC GLUCOSE Collection Time: 07/02/18 11:51 AM Result Value Ref Range Glucose, POC 122 (H) 70 - 100 MG/DL BASIC METABOLIC PANEL Collection Time: 07/02/18 1:20 PM Result Value Ref Range Sodium 137 137 - 147 MMOL/L Potassium 4.2 3.5 - 5.1 MMOL/L Chloride 95 (L) 98 - 110 MMOL/L CO2 36 (H) 21 - 30 MMOL/L Anion Gap 6 3 - 12 Glucose 175 (H) 70 - 100 MG/DL Blood Urea Nitrogen 35 (H) 7 - 25 MG/DL Creatinine 1.21 (H) 0.4 - 1.00 MG/DL Calcium 9.0 8.5 - 10.6 MG/DL eGFR Non 46 (L) >60 mL/min eGFR 56 (L) >60 mL/min Point of Care Testing (Last 24 hours) Radiology and other Diagnostics Review: Pertinent radiology reviewed. Lupillo Burton MD * Michelle Walsh RT - 07/02/2018 9:58 AM CDT RT Adult Assessment Note NAME:Niecy Richey :1965 AGE: 52 y.o. ADMISSION DATE: 06/24/2018 DAYS ADMITTED: LOS: 8 days RT Treatment Plan: Protocol Plan: Procedures PAP: Place a nursing order for "IS Q1h While Awake" for any of Lung Expansion indicators Oxygen/Humidity: O2 to keep SpO2 > 92% Monitoring: Pulse oximetry continuous during night/sleep;Pulse oximetry BID & PRN Comment: O2 2 lpm at home Additional Comments: Impressions of the patient: patient in bed, at bedside Intervention(s)/outcome(s): assessment complete, patient found on RA with SpO2= 77%, placed patient back on O2. Required 3 lpm to get SpO2 at 92%. Patient education that was completed: encouraged pt to wear O2 at all times Recommendations to the care team: none Vital Signs: Pulse: 68 RR: 18 PER MINUTE SpO2: (!) 2 % O2 Device: Cannula Liter Flow: 3 Lpm(increased from 2) O2%: Breath Sounds: Respiratory Effort: Non-Labored * Davide Villarreal, VERENA - 07/02/2018 6:54 AM CDT Heart Failure Nursing Progress Note Admission Date: 06/24/2018 LOS: 8 days Admission Weight: (!) 146 kg (321 lb 14 oz) Most recent weights (inpatient): Vitals: 07/01/18 0500 07/02/18 0500 07/02/18 0653 Weight: (!) 137.4 kg (302 lb 14.6 oz) 62.5 kg (137 lb 11.2 oz) (!) 136.2 kg ( 300 lb 4.3 oz) Weight change from previous day:-1.2kg Fluid restriction ordered: 1.5 litters FR Intake/Output Summary: (Last 24 hours) Intake/Output Summary (Last 24 hours) at 07/02/2018 0654 Last data filed at 07/02/2018 0650 Gross per 24 hour Intake 910.48 ml Output 4775 ml Net -3864.52 ml Is patient incontinent No-Nichole Anticipated discharge date: ongoing Discharge goals: Increase ADLs * Jacquie Bocanegra RN - 07/01/2018 6:43 PM CDT Heart Failure Nursing Progress Note Admission Date: 06/24/2018 LOS: 7 days Admission Weight: (!) 146 kg (321 lb 14 oz) Most recent weights (inpatient): Vitals: 06/30/18 0643 06/30/18 0743 07/01/18 0500 Weight: 64.6 kg (142 lb 8 oz) (!) 142.4 kg (313 lb 15 oz) (!) 137.4 kg (302 lb 14.6 oz) Weight change from previous day: -5 kg Fluid restriction ordered: 1.5L Fluid Restriction Intake/Output Summary: (Last 24 hours) Intake/Output Summary (Last 24 hours) at 07/01/2018 1843 Last data filed at 07/01/2018 1809 Gross per 24 hour Intake 1198.58 ml Output 4725 ml Net -3526.42 ml Is patient incontinent No Anticipated discharge date: Ongoing Discharge goals: Getting up with less pain. Daily Assessment of Patient Stated Goals: Short Term Goal Identified by patient (Short Term=during hospitalization): Achieve goal weight. 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 Prior to transfer had been in the hospital for a week with pneumonia requiring intubation, weaned to 2 L O2 prior to transfer. She completed a course of Zosyn for possible pnuemonia on 06/27. Currently on lasix gtt, now diuresing well. Volume overload Acute on chronic diastolic heart failure Pulmonary hypertension, likely owing to left heart disease, chronic hypoxia/OHS/ NABIL Hypertension - Echo with LVEF 70%, unable to assess diastolic fillling, normal RV, elevated CVP>15 mmHg, mild to moderate MS, estimated PASP 62 mmHg - Admission CXR with evidence of volume overload - pulmonary vascular congestion , small to moderate L pleural effusion, cardiomegaly, BNP 967. - Unclear dry weight (~270s?); admission weight 321 lb Plan - Continue Lasix gtt @ 10 mg/hr - Strict I/Os, daily weights, low Na diet with 1.5L fluid restriction. - BID BMPs, keep K>4, Mg >2; replete today - Holding lisinopril due to MARIN; should discontinue permanently with her decompensated cirrhosis - Continue metoprolol 12.5 mg bid - Cardiology following, appreciate their assistance Acute on chronic hypoxic respiratory failure, improved Completed 10 day course of antibiotics (vancomycin and zosy)n for HCAP. Intubated at OSH, extubated prior to transfer, now on home 2 L. Due to volume overload +/- infection. Plan - Diuresis as above - Incentive spirometry Acute kidney injury, improving Suspect cardiorenal physiology, as Cr of 1.7-1.9 improving steadily with diuresis - Monitor renal function H/o ITP s/p splenectomy (age 6) Recurrent thrombocytopenia Follows with [facility] - Dr. Moran - Continue eltrombopag, had been held earlier at OSH; withdrawal likely the cause of worsening plt count - Holding heparin, although HIT score 3, low suspicion of HIT - Hematology consulted - Daily hemolysis/DIC labs for now - No indication for IVIG unless bleeding, surgical procedures Persistent leukocytosis ~17k, afebrile, likely related to prior splenectomy - chronic Decompensated cirrhosis Due to MCGOWAN, HCV. Complicated by HE. No ascites on abd u/s 06/09/18; liver nodule as below; AFP 3 05/2018. Not a candidate for OLT due to BMI. S/p treatment for HCV with interferon and ribavirin 2012 with SVR. No prior EGD for EV screening on file. Plan - Diuresis as above - Continue home lactulose, rifaximin Depression - continue home amitriptyline and duloxetine Neuropathy - continue home tizanidine - change gabapentin to pregabalin 75 mg bid - currently on oxycodone as well, wean as tolerated - pain mgmt following Liver nodule Abd u/s 06/09/18 with 3.9 x 1.4 x 2.7 cm nodule with absent blood flow in between L liver lobe and pancreas - Plan on CT a/p to further evaluate, as recommended but radiology NABIL, OHS Required rescue Bipap in the MICU. Started on autopap at night Type 2 diabetes A1c 5.8% 06/08/18 - continue lantus 40 un qhs, aspart 8 un tid with meals, low dose sliding scale aspart Abnormal Cosynotropin Stimulation Test - Cortisol 2.7 on random draw. ACTH stim test with baseline- 1.1, 30min 7.2, 60min 9.9. Endo consulted due to abnormal stim test - will need repeat in outpatient setting PPx: SCDs FEN: monitor lytes, low Na diet, no IVF Full code Dispo continue inpatient admission Jason Burton MD Hospitalist Pager [phone] Subjective, ROS Niecy Richey is a 52 y.o. female. Dyspnea continues to improve. On 2L O2. Net negative 2.6 L in the last 24 hours. Weight 304. Having BMs, no chest pain, n/v , bleeding, MERRILL, diarrhea/constipation. Mild leg swelling still. Reviewed labs with her today. Medications Scheduled Meds: amitriptyline (ELAVIL) tablet 25 mg 25 mg Oral QHS duloxetine DR (CYMBALTA) capsule 30 mg 30 mg Oral QDAY eltrombopag (PROMACTA) tab 100 mg [Patient's Own Medication] 100 mg Oral QDAY() insulin aspart U-100 (NOVOLOG FLEXPEN) injection PEN 0-6 Units 0-6 Units Subcutaneous ACHS (22) insulin aspart U-100 (NOVOLOG FLEXPEN) injection PEN 8 Units 8 Units Subcutaneous TID w/ meals insulin glargine (LANTUS SOLOSTAR, BASAGLAR) injection PEN 40 Units 40 Units Subcutaneous QHS(22) lactulose oral solution 20 g 20 g Oral TID metoprolol tartrate (LOPRESSOR) tablet 12.5 mg 12.5 mg Oral BID nystatin (NYSTOP) topical powder Topical BID rifAXIMin (XIFAXAN) tablet 550 mg 550 mg Oral BID vitamins, multi w/minerals tablet 1 tablet 1 tablet Oral QDAY Continuous Infusions: furosemide (LASIX) 500 mg in 50 mL IV drip syr (max conc) 10 mg/hr ( 0606) PRN and Respiratory Meds:acetaminophen Q6H PRN, alteplase PRN (Concession Attendant from Rx) , gabapentin QDAY PRN AND gabapentin QDAY PRN AND gabapentin QHS PRN, ondansetron Q8H PRN, oxyCODONE Q6H PRN, tiZANidine Q8H PRN Objective Vital Signs: Last Filed Vital Signs: 24 Hour Range BP: 138/51 (07/01 1100) Temp: 36.9 C (98.5 F) (07/01 1100) Pulse: 72 (07/01 1338) Respirations: 18 PER MINUTE (07/01 1338) SpO2: 95 % (07/01 1338) O2 Delivery: None (Room Air) (07/01 1100) BP: (132-144)/(51-89) Temp: [36.7 C (98 F)-36.9 C (98.5 F)] Pulse: [61-98] Respirations: [16 PER MINUTE-20 PER MINUTE] SpO2: [94 %-100 %] O2 Delivery: None (Room Air) Intensity Pain Scale (Self Report): 8 (07/01/18 1245) Vitals: 06/30/18 0643 06/30/18 0743 07/01/18 0500 Weight: 64.6 kg (142 lb 8 oz) (!) 142.4 kg (313 lb 15 oz) (!) 137.4 kg (302 lb 14.6 oz) Intake/Output Summary: (Last 24 hours) Intake/Output Summary (Last 24 hours) at 07/01/2018 1501 Last data filed at 07/01/2018 1359 Gross per 24 hour Intake 1514 ml Output 4375 ml Net -2861 ml Stool Occurrence: 1 Physical Exam GENERAL: calm, cooperative, no acute distress HEAD and NECK: EOMI, PERRL, neck supple CARDIOVASCULAR: normal rate, regular rhythm, no murmurs, rubs, or gallops. PULMONARY: lungs clear to auscultation bilaterally - no rhonchi, rales, wheezing. @L O2 ABDOMEN: soft, nontender, nondistended, no rebound or guarding GENITOURINARY: + nichole in place EXTREMITIES: extremities warm, well-perfused, 1+ LE edema. Normal peripheral pulses. SKIN: no rashes on exposed skin Lab Review 24-hour labs: Results for orders placed or performed during the hospital encounter of (from the past 24 hour(s)) POC GLUCOSE Collection Time: 06/30/18 5:57 PM Result Value Ref Range Glucose, POC 82 70 - 100 MG/DL BASIC METABOLIC PANEL Collection Time: 06/30/18 6:15 PM Result Value Ref Range Sodium 141 137 - 147 MMOL/L Potassium 3.8 3.5 - 5.1 MMOL/L Chloride 103 98 - 110 MMOL/L CO2 33 (H) 21 - 30 MMOL/L Anion Gap 5 3 - 12 Glucose 81 70 - 100 MG/DL Blood Urea Nitrogen 43 (H) 7 - 25 MG/DL Creatinine 1.17 (H) 0.4 - 1.00 MG/DL Calcium 8.9 8.5 - 10.6 MG/DL eGFR Non 48 (L) >60 mL/min eGFR 58 (L) >60 mL/min FIBRINOGEN Collection Time: 06/30/18 6:15 PM Result Value Ref Range Fibrinogen 251 200 - 400 MG/DL LDH-LACTATE DEHYDROGENASE Collection Time: 06/30/18 6:15 PM Result Value Ref Range Lactate Dehydrogenase 357 (H) 100 - 210 U/L HAPTOGLOBIN Collection Time: 06/30/18 6:15 PM Result Value Ref Range Haptoglobin 57 16 - 200 MG/DL BILIRUBIN,TOTAL Collection Time: 06/30/18 6:15 PM Result Value Ref Range Total Bilirubin 1.3 (H) 0.3 - 1.2 MG/DL PROTIME INR (PT) Collection Time: 06/30/18 6:15 PM Result Value Ref Range INR 1.6 (H) 0.8 - 1.2 CBC Collection Time: 06/30/18 6:15 PM Result Value Ref Range White Blood Cells 17.2 (H) 4.5 - 11.0 K/UL RBC 2.62 (L) 4.0 - 5.0 M/UL Hemoglobin 7.5 (L) 12.0 - 15.0 GM/DL Hematocrit 23.3 (L) 36 - 45 % MCV 88.8 80 - 100 FL MCH 28.7 26 - 34 PG MCHC 32.3 32.0 - 36.0 G/DL RDW 23.0 (H) 11 - 15 % Platelet Count 31 (L) 150 - 400 K/UL MPV 12.4 (H) 7 - 11 FL POC GLUCOSE Collection Time: 06/30/18 9:36 PM Result Value Ref Range Glucose, POC 93 70 - 100 MG/DL PROTIME INR (PT) Collection Time: 07/01/18 5:06 AM Result Value Ref Range INR 1.6 (H) 0.8 - 1.2 PTT (APTT) Collection Time: 07/01/18 5:06 AM Result Value Ref Range APTT 27.5 24.0 - 36.5 SEC MAGNESIUM Collection Time: 07/01/18 5:06 AM Result Value Ref Range Magnesium 1.6 1.6 - 2.6 mg/dL COMPREHENSIVE METABOLIC PANEL Collection Time: 07/01/18 5:06 AM Result Value Ref Range Sodium 142 137 - 147 MMOL/L Potassium 4.1 3.5 - 5.1 MMOL/L Chloride 101 98 - 110 MMOL/L Glucose 103 (H) 70 - 100 MG/DL Blood Urea Nitrogen 42 (H) 7 - 25 MG/DL Creatinine 1.12 (H) 0.4 - 1.00 MG/DL Calcium 8.7 8.5 - 10.6 MG/DL Total Protein 5.8 (L) 6.0 - 8.0 G/DL Total Bilirubin 1.2 0.3 - 1.2 MG/DL Albumin 3.0 (L) 3.5 - 5.0 G/DL Alk Phosphatase 80 25 - 110 U/L AST (SGOT) 38 7 - 40 U/L CO2 34 (H) 21 - 30 MMOL/L ALT (SGPT) 18 7 - 56 U/L Anion Gap 7 3 - 12 eGFR Non 51 (L) >60 mL/min eGFR >60 >60 mL/min CBC AND DIFF Collection Time: 07/01/18 5:06 AM Result Value Ref Range White Blood Cells 17.7 (H) 4.5 - 11.0 K/UL RBC 2.63 (L) 4.0 - 5.0 M/UL Hemoglobin 7.5 (L) 12.0 - 15.0 GM/DL Hematocrit 23.5 (L) 36 - 45 % MCV 89.2 80 - 100 FL MCH 28.5 26 - 34 PG MCHC 31.9 (L) 32.0 - 36.0 G/DL RDW 22.8 (H) 11 - 15 % Platelet Count 22 (LL) 150 - 400 K/UL MPV 10.6 7 - 11 FL Segmented Neutrophils 61 41 - 77 % Lymphocytes 17 (L) 24 - 44 % Monocytes 17 (H) 4 - 12 % Eosinophil 5 0 - 5 % ANISO PRESENT HYPO PRESENT POIK PRESENT POLY PRESENT Ovalocyte PRESENT Schistocyte PRESENT Target PRESENT [place] Bodies PRESENT Platelet Estimate MKD DEC Absolute Neutrophil Count Manual 10.80 (H) 1.8 - 7.0 K/UL PHOSPHORUS Collection Time: 07/01/18 5:06 AM Result Value Ref Range Phosphorus 4.1 2.0 - 4.5 MG/DL LDH-LACTATE DEHYDROGENASE Collection Time: 07/01/18 5:06 AM Result Value Ref Range Lactate Dehydrogenase 375 (H) 100 - 210 U/L HAPTOGLOBIN Collection Time: 07/01/18 5:06 AM Result Value Ref Range Haptoglobin 58 16 - 200 MG/DL POC GLUCOSE Collection Time: 07/01/18 7:28 AM Result Value Ref Range Glucose, POC 80 70 - 100 MG/DL POC GLUCOSE Collection Time: 07/01/18 12:31 PM Result Value Ref Range Glucose, POC 99 70 - 100 MG/DL BASIC METABOLIC PANEL Collection Time: 07/01/18 1:47 PM Result Value Ref Range Sodium 141 137 - 147 MMOL/L Potassium 4.0 3.5 - 5.1 MMOL/L Chloride 99 98 - 110 MMOL/L CO2 34 (H) 21 - 30 MMOL/L Anion Gap 8 3 - 12 Glucose 154 (H) 70 - 100 MG/DL Blood Urea Nitrogen 39 (H) 7 - 25 MG/DL Creatinine 1.28 (H) 0.4 - 1.00 MG/DL Calcium 8.9 8.5 - 10.6 MG/DL eGFR Non 43 (L) >60 mL/min eGFR 53 (L) >60 mL/min Point of Care Testing (Last 24 hours) Radiology and other Diagnostics Review: Pertinent radiology reviewed. Lupillo Burton MD * Davide Villarreal RN - 07/01/2018 7:03 AM CDT Heart Failure Nursing Progress Note Admission Date: 06/24/2018 LOS: 7 days Admission Weight: (!) 146 kg (321 lb 14 oz) Most recent weights (inpatient): Vitals: 06/30/18 0643 06/30/18 0743 07/01/18 0500 Weight: 64.6 kg (142 lb 8 oz) (!) 142.4 kg (313 lb 15 oz) (!) 137.4 kg (302 lb 14.6 oz) Weight change from previous day:-5kg Fluid restriction ordered: 1.5 FR Intake/Output Summary: (Last 24 hours) Intake/Output Summary (Last 24 hours) at 07/01/2018 0703 Last data filed at 07/01/2018 0600 Gross per 24 hour Intake 1417.19 ml Output 4075 ml Net -2657.81 ml Is patient incontinent No-Nichole Anticipated discharge date: ongoing Discharge goals: no fluid overload. * Alana Corona RD - 06/30/2018 4:10 PM CDT CLINICAL NUTRITION Clinical Nutrition Assessment Summary NAME:Niecy Richey :1965 AGE: 52 y.o. ADMISSION DATE: 06/24/2018 DAYS ADMITTED: LOS: 6 days Nutrition Assessment of Patient: BMI Categories Adult: Obesity Class III: 40 and over Malnutrition Assessment: Malnutrition present Current Oral Intake: Inadequate Estimated Calorie Needs: 1800 (25 kcals/kg Desired WT 72kg) Estimated Protein Needs: 108g (1.5 g/kg Desired WT 72kg) Oral Diet Order: Cardiac, Diabetic [id number] Kcal/day (60 g Carb/meal, 30 g Carb /HS snack), 1500 mL/Day Fluid Restriction ICD-10 code E43: Acute illness/Severe malnutrition Moderate loss of body fat, Moderate loss of muscle mass, Moderate to severe fluid accumulation Loss of Subcutaneous Fat: Yes Severe Orbital Muscle Wasting: Yes Moderate Interosseous Edema: Yes Moderate Lower Extremeties Malnutrition Interventions: Encouraged/suggested protein sources at meals, offered CIB drinks, ordered MVI Comments: 52 y/o F with 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 Prior to transfer had been in the hospital for a week with pneumonia requiring intubation, weaned to 2 L O2 prior to transfer. Floor transfer 06/29. Pt/spouse report appetite/PO intake have been poor since her first admission to [facility] 06/07-06/15. Nausea is a limiting factor at times, but zofran helps. Pt is also very upset about being in a semi- private room. 06/07 admit wt 283#, c/w with pt's reported usual WT 280#. 06/24 admit wt 321.8#, now 313.9# after agressive diuresis (net -12.2L since admit). Continues with 3+ BLE edema. RD notes severe orbital fat loss, moderate interosseous muscle wasting and obvious glossitis (can signal deficiency of Fe, Zn, B Vitamins). RD ordered MVI. Discussed protien needs at length, gave recommendations and encouraged pt to ask RNs for CIB on unit if she does not eat more than 50% of meal. Pt does not like Boost drinks. Pt/spouse agreeable to encourage protien intake at meals. Recommendation: Continue current diet order as tolerated. Please encourage PO intake high protien foods q2-3hrs while awake. 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 Prior to transfer had been in the hospital for a week with pneumonia requiring intubation, weaned to 2 L O2 prior to transfer. She completed a course of Zosyn for possible pnuemonia on 06/27. Currently on lasix gtt due to diffculty with diuresis. Volume overload Acute on chronic diastolic heart failure Pulmonary hypertension, likely owing to left heart disease, chronic hypoxia/OHS/ NABIL Hypertension - Echo with LVEF 70%, unable to assess diastolic fillling, normal RV, elevated CVP>15 mmHg, mild to moderate MS, estimated PASP 62 mmHg - Admission CXR with evidence of volume overload - pulmonary vascular congestion , small to moderate L pleural effusion, cardiomegaly, BNP 967. - Unclear dry weight (~270s?); admission weight 321 lb Plan - Continue Lasix gtt @ 10 mg/hr - Strict I/Os, daily weights, low Na diet with 1.5L fluid restriction. - BID BMPs, keep K>4, Mg >2 - Holding lisinopril due to MARIN; should discontinue permanently with her decompensated cirrhosis - Continue metoprolol 12.5 mg bid - Cardiology following, appreciate their assistance Acute on chronic hypoxic respiratory failure, improved Completed 10 day course of antibiotics (vancomycin and zosy)n for HCAP. Intubated at OSH, extubated prior to transfer, now on home 2 L. Due to volume overload +/- infection. Plan - Diuresis as above - Incentive spirometry Acute kidney injury, improving Suspect cardiorenal physiology, as Cr of 1.7-1.9 improving steadily with diuresis - Monitor renal function H/o ITP s/p splenectomy (age 6) Recurrent thrombocytopenia Follows with [facility] - Dr. Moran - Continue eltrombopag, had been held earlier at OSH; withdrawal likely the cause of worsening plt count - Holding heparin, although HIT score 3, low suspicion of HIT - Hematology consulted - Daily hemolysis/DIC labs for now - No indication for IVIG unless bleeding, surgical procedures, or plt drop <10k Persistent leukocytosis 17k, afebrile, likely related to prior splenectomy - chronic Decompensated cirrhosis Due to MCGOWAN, HCV. Complicated by HE. No ascites on abd u/s 06/09/18; liver nodule as below; AFP 3 05/2018. Not a candidate for OLT due to BMI. S/p treatment for HCV with interferon and ribavirin 2012 with SVR. No prior EGD for EV screening on file. Plan - Diuresis as above - Continue home lactulose, rifaximin Depression - continue home amitriptyline and duloxetine Neuropathy - continue home gabapentin, tizanidine - currently on oxycodone as well, wean as tolerated - pain mgmt following Liver nodule Abd u/s 06/09/18 with 3.9 x 1.4 x 2.7 cm nodule with absent blood flow in between L liver lobe and pancreas - Due for CT a/p to further evaluate, defer to outpatient NABIL, OHS Required rescue Bipap in the MICU. Started on autopap at night Type 2 diabetes A1c 5.8% 06/08/18 - continue lantus 40 un qhs, aspart 8 un tid with meals, low dose sliding scale aspart Abnormal Cosynotropin Stimulation Test - Cortisol 2.7 on random draw. ACTH stim test with baseline- 1.1, 30min 7.2, 60min 9.9. Endo consulted due to abnormal stim test - will need repeat in outpatient setting PPx: SCDs FEN: monitor lytes, low Na diet, no IVF Full code Dispo continue inpatient admission Jason Burton MD Hospitalist Pager [phone] Subjective, ROS Niecy A Richey is a 52 y.o. female. Dyspnea continues to improve. Down to 1L O2. Net negative 4.5 L in the last 24 hours. Having BMs, no chest pain, n/v, bleeding, MERRILL, diarrhea/constipation. Mild leg swelling still. Medications Scheduled Meds: amitriptyline (ELAVIL) tablet 25 mg 25 mg Oral QHS duloxetine DR (CYMBALTA) capsule 30 mg 30 mg Oral QDAY eltrombopag (PROMACTA) tab 100 mg [Patient's Own Medication] 100 mg Oral QDAY(06) insulin aspart U-100 (NOVOLOG FLEXPEN) injection PEN 0-6 Units 0-6 Units Subcutaneous ACHS (22) insulin aspart U-100 (NOVOLOG FLEXPEN) injection PEN 8 Units 8 Units Subcutaneous TID w/ meals insulin glargine (LANTUS SOLOSTAR, BASAGLAR) injection PEN 40 Units 40 Units Subcutaneous QHS(22) lactulose oral solution 20 g 20 g Oral TID metoprolol tartrate (LOPRESSOR) tablet 12.5 mg 12.5 mg Oral BID nystatin (NYSTOP) topical powder Topical BID rifAXIMin (XIFAXAN) tablet 550 mg 550 mg Oral BID Continuous Infusions: furosemide (LASIX) 500 mg in 50 mL IV drip syr (max conc) 10 mg/hr ( 1355) PRN and Respiratory Meds:acetaminophen Q6H PRN, alteplase PRN (Concession Attendant from Rx) , gabapentin QDAY PRN AND gabapentin QDAY PRN AND gabapentin QHS PRN, ondansetron Q8H PRN, oxyCODONE Q6H PRN, tiZANidine Q8H PRN Objective Vital Signs: Last Filed Vital Signs: 24 Hour Range BP: 129/53 (06/30 1144) Temp: 36.7 C (98.1 F) (06/30 1144) Pulse: 67 (06/30 1316) Respirations: 18 PER MINUTE (06/30 1316) SpO2: 95 % (06/30 1316) O2 Delivery: Nasal Cannula (06/30 1144) BP: (109-136)/(49-57) Temp: [36.7 C (98.1 F)-37 C (98.6 F)] Pulse: [61-70] Respirations: [16 PER MINUTE-20 PER MINUTE] SpO2: [92 %-98 %] O2 Delivery: Nasal Cannula Intensity Pain Scale (Self Report): 8 (06/29/182010) Vitals: 06/29/18 1356 06/30/18 0643 06/30/18 0743 Weight: (!) 140 kg (308 lb 10.3 oz) 64.6 kg (142 lb 8 oz) (!) 142.4 kg (313 lb 15 oz) Intake/Output Summary: (Last 24 hours) Intake/Output Summary (Last 24 hours) at 06/30/2018 1506 Last data filed at 06/30/2018 1317 Gross per 24 hour Intake 523.19 ml Output 3725 ml Net -3201.81 ml Stool Occurrence: 1 Physical Exam GENERAL: calm, cooperative, no acute distress HEAD and NECK: EOMI, PERRL, neck supple CARDIOVASCULAR: normal rate, regular rhythm, no murmurs, rubs, or gallops. PULMONARY: lungs clear to auscultation bilaterally - no rhonchi, rales, wheezing. 1L O2 ABDOMEN: soft, nontender, nondistended, no rebound or guarding GENITOURINARY: no nichole in place EXTREMITIES: extremities warm, well-perfused, 1+ LE edema. Normal peripheral pulses. SKIN: no rashes on exposed skin Lab Review 24-hour labs: Results for orders placed or performed during the hospital encounter of (from the past 24 hour(s)) POC GLUCOSE Collection Time: 06/29/18 5:58 PM Result Value Ref Range Glucose, POC 134 (H) 70 - 100 MG/DL POC GLUCOSE Collection Time: 06/29/18 9:32 PM Result Value Ref Range Glucose, POC 161 (H) 70 - 100 MG/DL PROTIME INR (PT) Collection Time: 06/30/18 5:18 AM Result Value Ref Range INR 1.5 (H) 0.8 - 1.2 PTT (APTT) Collection Time: 06/30/18 5:18 AM Result Value Ref Range APTT 25.8 24.0 - 36.5 SEC MAGNESIUM Collection Time: 06/30/18 5:18 AM Result Value Ref Range Magnesium 1.8 1.6 - 2.6 mg/dL COMPREHENSIVE METABOLIC PANEL Collection Time: 06/30/18 5:18 AM Result Value Ref Range Sodium 140 137 - 147 MMOL/L Potassium 4.2 3.5 - 5.1 MMOL/L Chloride 104 98 - 110 MMOL/L Glucose 64 (L) 70 - 100 MG/DL Blood Urea Nitrogen 46 (H) 7 - 25 MG/DL Creatinine 1.24 (H) 0.4 - 1.00 MG/DL Calcium 8.5 8.5 - 10.6 MG/DL Total Protein 5.8 (L) 6.0 - 8.0 G/DL Total Bilirubin 1.2 0.3 - 1.2 MG/DL Albumin 3.1 (L) 3.5 - 5.0 G/DL Alk Phosphatase 79 25 - 110 U/L AST (SGOT) 44 (H) 7 - 40 U/L CO2 29 21 - 30 MMOL/L ALT (SGPT) 17 7 - 56 U/L Anion Gap 7 3 - 12 eGFR Non 45 (L) >60 mL/min eGFR 55 (L) >60 mL/min CBC AND DIFF Collection Time: 06/30/18 5:18 AM Result Value Ref Range White Blood Cells 17.9 (H) 4.5 - 11.0 K/UL RBC 2.62 (L) 4.0 - 5.0 M/UL Hemoglobin 7.5 (L) 12.0 - 15.0 GM/DL Hematocrit 23.3 (L) 36 - 45 % MCV 88.9 80 - 100 FL MCH 28.4 26 - 34 PG MCHC 32.0 32.0 - 36.0 G/DL RDW 22.1 (H) 11 - 15 % Platelet Count 25 (L) 150 - 400 K/UL MPV 10.5 7 - 11 FL Nucleated RBCs 1 K/UL Segmented Neutrophils 68 41 - 77 % Lymphocytes 18 (L) 24 - 44 % Monocytes 9 4 - 12 % Eosinophil 5 0 - 5 % ANISO PRESENT Ovalocyte PRESENT Target PRESENT Platelet Estimate MKD DEC Absolute Neutrophil Count Manual 12.17 (H) 1.8 - 7.0 K/UL PHOSPHORUS Collection Time: 06/30/18 5:18 AM Result Value Ref Range Phosphorus 4.6 (H) 2.0 - 4.5 MG/DL LDH-LACTATE DEHYDROGENASE Collection Time: 06/30/18 5:18 AM Result Value Ref Range Lactate Dehydrogenase 414 (H) 100 - 210 U/L HAPTOGLOBIN Collection Time: 06/30/18 5:18 AM Result Value Ref Range Haptoglobin 59 16 - 200 MG/DL RETICULOCYTE COUNT Collection Time: 06/30/18 5:18 AM Result Value Ref Range Retic, Uncorrected 3.4 (H) 0.5 - 2.0 % Retic, Corrected 1.9 % Retic, Absolute 86.2 30 - 94 K/UL BNP (B-TYPE NATRIURETIC PEPTI) Collection Time: 06/30/18 5:18 AM Result Value Ref Range B Type Natriuretic Peptide 364.0 (H) 0 - 100 PG/ML POC GLUCOSE Collection Time: 06/30/18 8:06 AM Result Value Ref Range Glucose, POC 101 (H) 70 - 100 MG/DL POC GLUCOSE Collection Time: 06/30/18 12:55 PM Result Value Ref Range Glucose, POC 92 70 - 100 MG/DL Point of Care Testing (Last 24 hours) Radiology and other Diagnostics Review: Pertinent radiology reviewed. Lupillo Burton MD * Jacek Stovall DO - 06/30/2018 2:43 PM CDT Hematology Progress Note Admission Date: 06/24/2018 LOS: 6 days Assessment and Plan: Niecy Richey is a 52 y.o. female with PMHofchronic respiratory failure with hypoxia, on home oxygen therapy, DMT2,end stage liver disease, GERD, hx of hepatitis C, HTN, MCGOWAN, ITP s/psplenectomy. Who was transferred to on 06/24 for further treatment of hypoxic respiratory failure, persistent metabolic acidosis. Hematology team was consulted for thrombocytopenia. ## Thrombocytopenia ## Chronic ITP on promecta - She had splenectomy at the age of 6 and was treated with steroid and Rituximab in the past and now she is on promecta. - She has been off Promecta since 06/18 which would explain her Platelet count. Restarted 06/26 on her daily dose of 100 mg. Her IPF is high that mean she is started to make Platelets. - Her platelet 25 today. We will hold on IVIG or steroids as she doesn't have any sign of bleeding. - We will check DIC and hemolysis again today (LDH, Hapto and Bilirubin). ## ESLD ## MCGOWAN ## Hepatitis C Patient was seen and discussed with Dr Wilman Mendez Hematology Oncology fellow, PGY4 [facility] Pager:[phone] ATTESTATION I have personally performed a history and physical exam on the patient. I have discussed the case with the fellow and concur with the fellow documentation of history, physical exam, assessment, and treatment plan unless otherwise noted. Her thrombocytopenia is likely due to ITP relapse off Promacta. As she continues back on Promacta we would expect her platelets to improve within the next several days. Her hemolysis labs are less concerning today but we will continue to monitor. TMA/TTP is unlikely. In regards to ITP, we would only plan for IVIG for acute bleeding or possibly perioperatively. Her neutrophilia and monocytosis are likely from her splenectomy and are currently stable. Staff name: Jacek Stovall DO Pager [phone] Date:06/30/2018 Subjective: No acute event overnight. No sign or symptoms of bleeding. Review of Systems: A comprehensive 12 point ROS was performed and was negative Past medical, surgical, family and social histories were reviewed. No changes Physical Examination: Vitals: 06/30/18 1144 BP: 129/53 Pulse: 61 Temp: 36.7 C (98.1 F) SpO2: 95% CV: regular rhythm, normal rate, no murmur/rub/gallop Lungs: decrease air entry bilateral Abdomen: soft, non-tender, non-distended, normo-active bowel sounds Hepatosplenomegaly: No Extremities: +2 edema Interval Labs: CBC w/Diff Lab Results Component Value Date/Time WBC 17.9 (H) 06/30/2018 05:18 AM RBC 2.62 (L) 06/30/2018 05:18 AM HGB 7.5 (L) 06/30/2018 05:18 AM HCT 23.3 (L) 06/30/2018 05:18 AM MCV 88.9 06/30/2018 05:18 AM MCH 28.4 06/30/2018 05:18 AM MCHC 32.0 06/30/2018 05:18 AM RDW 22.1 (H) 06/30/2018 05:18 AM PLTCT 25 (L) 06/30/2018 05:18 AM MPV 10.5 06/30/2018 05:18 AM Lab Results Component Value Date/Time NEUT 58 06/27/2018 04:07 AM ANC 12.17 (H) 06/30/2018 05:18 AM ANC 14.20 (H) 06/27/2018 04:07 AM LYMA 18 (L) 06/27/2018 04:07 AM ALC 4.40 06/27/2018 04:07 AM SIMEON 17 (H) 06/27/2018 04:07 AM AMC 4.00 (H) 06/27/2018 04:07 AM EOSA 6 (H) 06/27/2018 04:07 AM AEC 1.40 (H) 06/27/2018 04:07 AM BASA 1 06/27/2018 04:07 AM ABC 0.20 06/27/2018 04:07 AM Comprehensive Metabolic Profile Lab Results Component Value Date/Time NA 140 06/30/2018 05:18 AM K 4.2 06/30/2018 05:18 AM CL 104 06/30/2018 05:18 AM CO2 29 06/30/2018 05:18 AM GAP 7 06/30/2018 05:18 AM BUN 46 (H) 06/30/2018 05:18 AM CR 1.24 (H) 06/30/2018 05:18 AM GLU 64 (L) 06/30/2018 05:18 AM GLU 116 (H) 06/08/2018 04:03 PM Lab Results Component Value Date/Time CA 8.5 06/30/2018 05:18 AM PO4 4.6 (H) 06/30/2018 05:18 AM ALBUMIN 3.1 (L) 06/30/2018 05:18 AM TOTPROT 5.8 (L) 06/30/2018 05:18 AM ALKPHOS 79 06/30/2018 05:18 AM AST 44 (H) 06/30/2018 05:18 AM ALT 17 06/30/2018 05:18 AM TOTBILI 1.2 06/30/2018 05:18 AM GFR 45 (L) 06/30/2018 05:18 AM GFRAA 55 (L) 06/30/2018 05:18 AM Hematology: Lab Results Component Value Date HGB 7.5 06/30/2018 HCT 23.3 06/30/2018 PLTCT 25 06/30/2018 WBC 17.9 06/30/2018 NEUT 58 06/27/2018 ANC 12.17 06/30/2018 ANC 14.20 06/27/2018 LYMPH 18 06/30/2018 ALC 4.40 06/27/2018 SIMEON 17 06/27/2018 AMC 4.00 06/27/2018 ABC 0.20 06/27/2018 BASOPHILS 1 06/25/2018 MCV 88.9 06/30/2018 MCHC 32.0 06/30/2018 MPV 10.5 06/30/2018 RDW 22.1 06/30/2018 , Coagulation: Lab Results Component Value Date PTT 25.8 06/30/2018 INR 1.5 06/30/2018 and Mg and PO4: Lab Results Component Value Date MG 1.8 06/30/2018 * Carlyn Avila - 06/30/2018 12:29 PM CDT OCCUPATIONAL THERAPY PROGRESS NOTE Mobility Progressive Mobility Level: Walk in room Distance Walked (feet): 5 ft Level of Assistance: Assist X2 Assistive Device: Walker Time Tolerated: 11-30 minutes Activity Limited By: Mental Status Variability(Emotional) Subjective Pertinent Dx per Physician: 52yo F hx of recurrent hospitalizations, chronic respiratory failure on exertional 2L O2, DM2, 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 Pt has been admitted to transferring hospital for ~1 week with pneumonia requiring intubation, ultimately weaned to 2L NC. Precautions: O2 Requirement(2L NC; Nichole; Picc Line) Pain / Complaints: Patient agrees to participate in therapy Pain Location: Back Pain Level Current: 7(After Mobility) Objective Psychosocial Status: Willing and Cooperative to Participate Persons Present: RehabTechnician( briefly and Spouse at end of session.) Home Living Type of Home: House Home Layout: One Level;Ramped Entrance;Able to Live on Main Level w/Bedrm/ Bathrm Access Bathroom Shower / Tub: Walk-in Shower Bathroom Toilet: Standard Home Equipment: Walker;Cane;Wheelchair-manual Prior Function Level Of Struthers: Independent with ADLs and functional transfers;Needed assistance with homemaking Lives With: Spouse;Son(DIL, infant grandchild.) Receives Help From: Family(All family members work during the day.) Other Function Comments: Pt transferred to [facility] from an outside subacute rehab within a hospital. Was ambulating with a SPC prior to recent hospital admissions. Uses a manual wheelchair within the community. States that she has had 3 falls in the past 6 months as a result of her 'legs giving out.' Pt reports that she is typically ambulatory with all ADLs and is able to do some light cooking and cleaning. States that she was walking with a RW at rehab. ADL's Where Assessed: Edge of Bed;Chair LE Dressing Assist: Total Assist LE Dressing Deficits: Don/Doff R Sock;Don/Doff L Sock Functional Transfer Deficits: Steadying;Increased Time to Complete Comment: Pt in bed initially. Pt transfers from supine to EOB with elevated HOB and Min A for trunk management. Pt performs sit to stand with Mod A X2. Pt stood for aprox 1 min and stated she needed to sit again because she felt as though she was going to fall backwards. Pt amb to sink with RW and Mod A X2 for safety, once at sink pt sat in a chair that was pulled up behind her in preperation for ADLs. entered and began talking to pt, she be became tearful and her O2 levels dropped to 84. Pt educated on pursed lip breathing and she requested to return to bed. Pt transfers from EOB to supine with Max A X2 for trunk and BLE managment. Pt in bed with all needs in reach. RN notified. O2 at 2L during session and O2 levels remained at 90 or above except when crying. Activity Tolerance Endurance: 2/5 Tolerates 10-20 Minutes Exercise w/Multiple Rests Sitting Balance: 3+/5 Sits w/o UE Support for 30 Seconds or Greater Cognition Overall Cognitive Status: WFL to Adequately Complete Self Care Tasks Safely Cognition Comment: Pt expressed some anxiety with moblity due to recent falls. Assessment Assessment: Decreased ADL Status;Decreased Endurance;Decreased Self-Care Trans; Decreased High-Level ADLs Prognosis: Fair; w/Cont OT s/p Acute Discharge Plan Progress: Slow Progress, Decreased Activity Tolerance OT Frequency: 5x/week OT Plan for Next Visit: BSC transfer; Grooming standing at sink with chair behind for safety. ADL Goals Patient Will Perform Grooming: Standing at Sink;w/ Stand By Assist Patient Will Perform LE Dressing: w/ Moderate Assist Patient Will Perform Toileting: w/ Moderate Assist Functional Transfer Goals Pt Will Transfer To Bedside Commode: w/ Minimum Assist OT Discharge Recommendations OT Discharge Recommendations: Inpatient Setting Equipment Recommendations: Caser Up, Sock José Luis, Long Handled Bath Sponge, Shower Chair(Grab bars; Hand Held Shower Head.) Therapist: Carlyn Avila Date: 06/30/2018 * Alexander Buckner MD - 06/30/2018 9:06 AM CDT Teaching Physician Attestation: I have personally interviewed and examined the patient, have reviewed the documentation, and agree with the assessment and plan of the PA. I have edited and added to the report for content and clarity with my changes in bold italics and/or strikeout. Doing well with diuresis, but still very volume overloaded, and will likely take a long time to achieve a euvolemic state. She is wanting faster results, but we discussed that a gradual approach will be the safest one in my opinion. Alexander Buckner M.D. Cardiology Progress Note Admission Date: 06/24/2018 Today's Date: 06/30/2018 LOS: 6 days Assessment & Plan Niecy Richey is a 52 y.o. patient with the following problems: 52 yo with PMHx of chronic respiratory failure on 2 L, HTN, ESLD 2/2 Hep C & MCGOWAN, and ITP s/p splenectomy who was transferred to [facility] from outside facility rehab on 06/24/18 for treatment of hypoxic respiratory failure and persistent metabolic acidosis. The patient had been admitted at [facility] from 06/07 to for treatment of CAP with acute hypoxic respiratory failure and ESLD with hepatic encephalopathy. Once stable, she was discharged to [facility] inpatient rehab for ongoing PT/OT. Per patient and family, on 06/23 the patient began to retain fluid and gained 11# in one day. She developed SILVERMAN, weight gain, BLEE, abdominal distension, and lower extremity pain 2/2 bilateral swelling. An echocardiogram was done 06/26/18 revealing LVEF 70%, moderate LA dilation, IVC >15 , mild to moderate stenosis that appeared mildly more advanced than previous echo in 08/2017, and severe mitral annular calcification. Cardiology consulted to further evaluate patient. Acute on chronic hypoxic/hypercarbic respiratory failure 06/07 - 06/15: treated for CAP at [facility] 06/15 - 06/18: inpatient rehab in [place] 06-18 - 06/24: admitted to ICU for respiratory failure, treated for HCAP with zosyn , escalated to meropenem (unclear why the escalation). Required intubation ~72h at OSH, now down to 2L NC. ABG 7.34/38/76 on 2L NC on 06/24 CXR on arrival with volume overloaded appearance. Primary currently questioning FVOL vs HCAP vs Multi-factorial. Procalcitonin 0.17 on 06/24, was 0.09 in 06/08/18. Patient was treated with Zosyn and vancomycin during admission. Persistent Leukocytosis WBC 27.0on 06/26, improving. Patient remains afebrile Acute diastolicHFpEF, EF: 70% Likely NICM. Major Complications or Comorbidities ([facility]): acute respiratory failure NYHA functional class III (marked limitation of physical activity - comfortable at rest, but less than ordinary activity causes symptoms of HF e.g., getting dressed or standing from a sitting position), ACC Stage C (structural heart disease with prior or current symptoms of HF). She presents with signs of hypervolemiawithout signs of low flow state. Admission BNP: 967 Chest x ray 06/24/18: Findings consistent with CHF/volume overload including cardiomegaly, pulmonary vascular congestion and small to moderate left pleural effusion. Echocardiogram 06/26/18revealed LVEF 70%, normal size and shape LV, concentric remodeling, unable to assess diastolic function. RV normal size and EF. LA moderately dilated. RA normal size. IVC >15. Calcified thickening of mitral leaflets. Mild to moderate stenosis which appears increased in comparison to previous echo in 08/2016. There is trace MR and severe mitral annular calcification. Mild TR. 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 She denies formal cardiac work up in the past - no stress test, LHC, etc. Intake/Output: - 11 liters since admit, - 4.4 liter in 24 /hrs. - 5.3 liter UO. . Goal Dry Weight: will shoot for 275#. (May - June 2017 patient weighed 282 #. July - October 2017 patient weighed 271-274#. May 2018 patient weighed 283#. Admission weight 321# ( doubt weights are accurate). Vitals: 06/29/18 1356 06/30/18 0643 06/30/18 0743 Weight: (!) 140 kg (308 lb 10.3 oz) 64.6 kg (142 lb 8 oz) (!) 142.4 kg (313 lb 15 oz) Diuretic Therapy Prior to admission dose Bumex 1 mg daily Given on admission Daily Dosing 06/25 IV Lasix 40 mg twice daily 06/26 IV lasix 40 mg x1, increased to 80 mg bid starting with afternoon dose 06/27 IV lasix gtt 10 mg/ hr and then increased to 20 mg/hr 06/28 lasix gtt at 20 mg/hr + diuril 250 mg x1 06/29 Lasix drip at 10 mg/h GDMT [employer]INE [employer]CH[employer]IC Changes BB recently was started on Toprol-XL 100 mg daily, held upon admission. 06/27 lopressor 25 mg bid started per primary. 06/28 lopressor held, marginal BP and HR 50-60s Restarted lopressor 12.5 mg BID 06/29/18 ACEI/ARB/ARNI recently on lisinopril, however, d/c and started on BB/ Aldosterone Antagonist Hydralazine/Nitrate Ivabradine HRMT Anticoagulation for Afib/flutter Mild to moderate mitral valve stenosis Severe mitral annular calcification Echo 08/30/16revealed severe mitral annular calcification without evidence of significant stenosis or regurgitation. Most recent echo 06/26/18:Calcific thickening of mitral leaflets. Mild to moderate stenosis. Mean gr 7 mm Hg @ HR 67 bpm. Trace regurgitation. There is severe mitral annular calcification. Mitral valve disease not felt to be a driving force behind patient's fluid retention or symptoms of heart failure at this time. 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 BP stable. systolic's running 112-130's. MARIN, improving Admission creatinine 1.72 --> 1.29 --> currently 1.24 Baseline creatinine 0.8-1.0 DMII - insulin dependent, HgA1C 5.8. 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 Per GI/Hepatology note on 06/09/18 during previous hospitalization, patient recommended to get EGD done in outpatient setting as she was due for a screening. Hx of ITP s/p splenectomy Platelets 95. Patient denies recent bleeding issues. Chronic lower back and right hip pain Primary managing, pain management consulted. Questionable NABIL-no history of sleep study. Recommendations: Continue IV diuresing for goal wt 275# over the weekend Will Repeat BNP today Would ensure electrolytes optimized with K> 4 and Mg > 2 Tolerating low dose beta chelsie initiation on 06/29/18 without hypotension or bradycardia. Will need to assess GDMT once euvolemic for initiation of MORGAN or ARB Above reviewed and discussed with Attending, Dr Buckner. Tasha Winn PA-c Pager [phone] Subjective No events overnight. Denies chest pains or shortness of Breathe Medications Scheduled Meds: amitriptyline (ELAVIL) tablet 25 mg 25 mg Oral QHS duloxetine DR (CYMBALTA) capsule 30 mg 30 mg Oral QDAY eltrombopag (PROMACTA) tab 100 mg [Patient's Own Medication] 100 mg Oral QDAY(06) insulin aspart U-100 (NOVOLOG FLEXPEN) injection PEN 0-6 Units 0-6 Units Subcutaneous ACHS (22) insulin aspart U-100 (NOVOLOG FLEXPEN) injection PEN 8 Units 8 Units Subcutaneous TID w/ meals insulin glargine (LANTUS SOLOSTAR, BASAGLAR) injection PEN 40 Units 40 Units Subcutaneous QHS(22) lactulose oral solution 20 g 20 g Oral TID metoprolol tartrate (LOPRESSOR) tablet 12.5 mg 12.5 mg Oral BID nystatin (NYSTOP) topical powder Topical BID rifAXIMin (XIFAXAN) tablet 550 mg 550 mg Oral BID Continuous Infusions: furosemide (LASIX) 500 mg in 50 mL IV drip syr (max conc) 10 mg/hr (1354) PRN and Respiratory Meds:acetaminophen Q6H PRN, alteplase PRN (Concession Attendant from Rx) , gabapentin QDAY PRN AND gabapentin QDAY PRN AND gabapentin QHS PRN, ondansetron Q8H PRN, oxyCODONE Q6H PRN, tiZANidine Q8H PRN Objective Vital Signs: Last Filed Vital Signs: 24 Hour Range BP: 122/49 (06/30 742) Temp: 37 C (98.6 F) (06/30 742) Pulse: 63 (06/30 742) Respirations: 20 PER MINUTE (06/30 742) SpO2: 95 % (06/30 742) O2 Delivery: Nasal Cannula (06/30 742) SpO2 Pulse: 85 (06/30 1199) Height: 170.2 cm (5' 7") (06/30 1355) BP: (109-136)/(49-61) Temp: [36.7 C (98 F)-37 C (98.6 F)] Pulse: [62-85] Respirations: [16 PER MINUTE-20 PER MINUTE] SpO2: [92 %-98 %] O2 Delivery: Nasal Cannula Intensity Pain Scale (Self Report): 8 (06/29/182010) Vitals: 06/29/18 1356 06/30/18 0643 06/30/18 0743 Weight: (!) 140 kg (308 lb 10.3 oz) 64.6 kg (142 lb 8 oz) (!) 142.4 kg (313 lb 15 oz) Intake/Output Summary: (Last 24 hours) Intake/Output Summary (Last 24 hours) at 06/30/2018 0930 Last data filed at 06/30/2018 0744 Gross per 24 hour Intake 474 ml Output 4725 ml Net -4251 ml Body mass index is 49.17 kg/m. Physical Exam GEN: no acute distress, morbidly obese, supplemental O2 JVD: difficult to assess HEENT: nontraumatic, EOM-intact; wears glasses CHEST: clear to auscultation bilaterally CV: Reg rhythm, nml rate; quiet HS with otherwise nml S1 & S2, no S3 or S4; no rub; no murmurs EXT: +3 peripheral edema, ? Chronicity. 2+ distal pulses Agree with exam except or in addition to as noted above. Lab Review Results for orders placed or performed during the hospital encounter of (from the past 24 hour(s)) POC GLUCOSE Collection Time: 06/29/18 11:32 AM Result Value Ref Range Glucose, POC 109 (H) 70 - 100 MG/DL MAGNESIUM Collection Time: 06/29/18 12:31 PM Result Value Ref Range Magnesium 1.8 1.6 - 2.6 mg/dL BASIC METABOLIC PANEL Collection Time: 06/29/18 12:31 PM Result Value Ref Range Sodium 141 137 - 147 MMOL/L Potassium 4.8 3.5 - 5.1 MMOL/L Chloride 103 98 - 110 MMOL/L CO2 29 21 - 30 MMOL/L Anion Gap 9 3 - 12 Glucose 111 (H) 70 - 100 MG/DL Blood Urea Nitrogen 49 (H) 7 - 25 MG/DL Creatinine 1.29 (H) 0.4 - 1.00 MG/DL Calcium 7.6 (L) 8.5 - 10.6 MG/DL eGFR Non 43 (L) >60 mL/min eGFR 52 (L) >60 mL/min FIBRINOGEN Collection Time: 06/29/18 12:31 PM Result Value Ref Range Fibrinogen 234 200 - 400 MG/DL HAPTOGLOBIN Collection Time: 06/29/18 12:31 PM Result Value Ref Range Haptoglobin 65 16 - 200 MG/DL DIRECT ANTIGLOBULIN TEST(STEVEN) Collection Time: 06/29/18 12:31 PM Result Value Ref Range STEVEN, [employer] [place] NEG RETICULOCYTE COUNT Collection Time: 06/29/18 12:31 PM Result Value Ref Range Retic, Uncorrected 3.0 (H) 0.5 - 2.0 % Retic, Corrected 1.7 % Retic, Absolute 82.3 30 - 94 K/UL IMMATURE PLATELET FRACTION Collection Time: 06/29/18 12:31 PM Result Value Ref Range Immature Platelet Fraction 40.0 (H) 1.1 - 7.1 % LDH-LACTATE DEHYDROGENASE Collection Time: 06/29/18 12:31 PM Result Value Ref Range Lactate Dehydrogenase 425 (H) 100 - 210 U/L BILIRUBIN, DIRECT Collection Time: 06/29/18 12:31 PM Result Value Ref Range Bilirubin, Direct 0.3 <0.4 MG/DL POC GLUCOSE Collection Time: 06/29/18 5:58 PM Result Value Ref Range Glucose, POC 134 (H) 70 - 100 MG/DL POC GLUCOSE Collection Time: 06/29/18 9:32 PM Result Value Ref Range Glucose, POC 161 (H) 70 - 100 MG/DL PROTIME INR (PT) Collection Time: 06/30/18 5:18 AM Result Value Ref Range INR 1.5 (H) 0.8 - 1.2 PTT (APTT) Collection Time: 06/30/18 5:18 AM Result Value Ref Range APTT 25.8 24.0 - 36.5 SEC MAGNESIUM Collection Time: 06/30/18 5:18 AM Result Value Ref Range Magnesium 1.8 1.6 - 2.6 mg/dL COMPREHENSIVE METABOLIC PANEL Collection Time: 06/30/18 5:18 AM Result Value Ref Range Sodium 140 137 - 147 MMOL/L Potassium 4.2 3.5 - 5.1 MMOL/L Chloride 104 98 - 110 MMOL/L Glucose 64 (L) 70 - 100 MG/DL Blood Urea Nitrogen 46 (H) 7 - 25 MG/DL Creatinine 1.24 (H) 0.4 - 1.00 MG/DL Calcium 8.5 8.5 - 10.6 MG/DL Total Protein 5.8 (L) 6.0 - 8.0 G/DL Total Bilirubin 1.2 0.3 - 1.2 MG/DL Albumin 3.1 (L) 3.5 - 5.0 G/DL Alk Phosphatase 79 25 - 110 U/L AST (SGOT) 44 (H) 7 - 40 U/L CO2 29 21 - 30 MMOL/L ALT (SGPT) 17 7 - 56 U/L Anion Gap 7 3 - 12 eGFR Non 45 (L) >60 mL/min eGFR 55 (L) >60 mL/min CBC AND DIFF Collection Time: 06/30/18 5:18 AM Result Value Ref Range White Blood Cells 17.9 (H) 4.5 - 11.0 K/UL RBC 2.62 (L) 4.0 - 5.0 M/UL Hemoglobin 7.5 (L) 12.0 - 15.0 GM/DL Hematocrit 23.3 (L) 36 - 45 % MCV 88.9 80 - 100 FL MCH 28.4 26 - 34 PG MCHC 32.0 32.0 - 36.0 G/DL RDW 22.1 (H) 11 - 15 % Platelet Count 25 (L) 150 - 400 K/UL MPV 10.5 7 - 11 FL Nucleated RBCs 1 K/UL Segmented Neutrophils 68 41 - 77 % Lymphocytes 18 (L) 24 - 44 % Monocytes 9 4 - 12 % Eosinophil 5 0 - 5 % ANISO PRESENT Ovalocyte PRESENT Target PRESENT Platelet Estimate MKD DEC Absolute Neutrophil Count Manual 12.17 (H) 1.8 - 7.0 K/UL PHOSPHORUS Collection Time: 06/30/18 5:18 AM Result Value Ref Range Phosphorus 4.6 (H) 2.0 - 4.5 MG/DL LDH-LACTATE DEHYDROGENASE Collection Time: 06/30/18 5:18 AM Result Value Ref Range Lactate Dehydrogenase 414 (H) 100 - 210 U/L HAPTOGLOBIN Collection Time: 06/30/18 5:18 AM Result Value Ref Range Haptoglobin 59 16 - 200 MG/DL RETICULOCYTE COUNT Collection Time: 06/30/18 5:18 AM Result Value Ref Range Retic, Uncorrected 3.4 (H) 0.5 - 2.0 % Retic, Corrected 1.9 % Retic, Absolute 86.2 30 - 94 K/UL POC GLUCOSE Collection Time: 06/30/18 8:06 AM Result Value Ref Range Glucose, POC 101 (H) 70 - 100 MG/DL Tele: SR rate 60 * Davide Villarreal RN - 06/30/2018 7:44 AM CDT Heart Failure Nursing Progress Note Admission Date: 06/24/2018 LOS: 6 days Admission Weight: (!) 146 kg (321 lb 14 oz) Most recent weights (inpatient): Vitals: 06/29/18 1356 06/30/18 0643 06/30/18 0743 Weight: (!) 140 kg (308 lb 10.3 oz) 64.6 kg (142 lb 8 oz) (!) 142.4 kg (313 lb 15 oz) Weight change from previous day:Wt is not accurate ( will zero the bed when pt is up) Fluid restriction ordered: 1.5L Intake/Output Summary: (Last 24 hours) Intake/Output Summary (Last 24 hours) at 06/30/2018 0744 Last data filed at 06/30/2018 0415 Gross per 24 hour Intake 832.62 ml Output 5325 ml Net -4492.38 ml Is patient incontinent No- Nichole Anticipated discharge date: Ongoing Discharge goals: No fluid overload. * Debra Bob RT - 06/30/2018 7:00 AM CDT Pt was started on auto titrate ( CPAP of 4). Pt was checked around giovanni night and the cpap still reading 4 cm H2O. PT was checked again at 0117 and cpap was reading 5 cm H2O. Setting was changed from auto to fixed pressure ( 5 cm H2O) * Prashant Chavarria RT - 06/29/2018 9:27 PM CDT RT Adult Assessment Note NAME:Niecy Richey :1965 AGE: 52 y.o. ADMISSION DATE: 06/24/2018 DAYS ADMITTED: LOS: 5 days RT Treatment Plan: Protocol Plan: Procedures IPPB: Place a nursing order for "IS Q1h While Awake" for any of Lung Expansion indicators Oxygen/Humidity: O2 to keep SpO2 > 95% Monitoring: Pulse oximetry BID & PRN Additional Comments: Impressions of the patient: pt. 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 Prior to transfer had been in the hospital for a week with pneumonia requiring intubation, weaned to 2 L O2 prior to transfer. She completed a course of Zosyn for possible pnuemonia on 06/27. Currently on lasix gtt due to diffculty with diuresis. Volume overload Acute on chronic diastolic heart failure Pulmonary hypertension, likely owing to left heart disease, chronic hypoxia/OHS/ NABIL Hypertension - Echo with LVEF 70%, unable to assess diastolic fillling, normal RV, elevated CVP>15 mmHg, mild to moderate MS, estimated PASP 62 mmHg - Admission CXR with evidence of volume overload - pulmonary vascular congestion , small to moderate L pleural effusion, cardiomegaly, BNP 967. - Unclear dry weight (~270s?); admission weight 321 lb Plan - Continue Lasix gtt @ 10 mg/hr - Has required intermittent dosing of thiazide as well - Strict I/Os, daily weights, low Na diet with 1.5L fluid restriction. - BID BMPs, keep K>4, Mg >2 - Holding lisinopril due to MARIN; should discontinue permanently with her decompensated cirrhosis - Continue metoprolol 12.5 mg bid - Cardiology following, appreciate their assistance Acute on chronic hypoxic respiratory failure, improved Completed 10 day course of antibiotics (vancomycin and zosy)n for HCAP. Intubated at OSH, extubated prior to transfer, now on home 2 L. Due to volume overlaod +/- infection. Plan - Diuresis as above - Incentive spirometry Acute kidney injury Suspect cardiorenal physiology, as Cr of 1.7-1.9 improving steadily with diuresis - Monitor renal function - Stop MORGAN-I permanently H/o ITP s/p splenectomy (age 6) Recurrent thrombocytopenia Follows with [facility] caceres - Dr. Moran - Continue eltrombopag, had been held earlier at OSH; withdrawal likely the cause of worsening plt count - Holding heparin, although HIT score 3, low suspicion of HIT - Hematology consulted - Daily hemolysis/DIC labs for now Decompensated cirrhosis Due to MCGOWAN, HCV. Complicated by HE. No ascites on abd u/s 06/09/18; liver nodule as below; AFP 3 05/2018. Not a candidate for OLT due to BMI. S/p treatment for HCV with interferon and ribavirin 2012 with SVR. No prior EGD for EV screening on file. Plan - Diuresis as above - Continue home lactulose, rifaximin Depression - continue home amitriptyline and duloxetine Neuropathy - continue home gabapentin, tizanidine - currently on oxycodone as well, wean as tolerated - pain mgmt following Liver nodule Abd u/s 06/09/18 with 3.9 x 1.4 x 2.7 cm nodule with absent blood flow in between L liver lobe and pancreas - Due for CT a/p to further evaluate, defer to outpatient NABIL, OHS - Required rescue Bipap in the MICU, unclear if uses at home Type 2 diabetes A1c 5.8% 06/08/18 - continue lantus 40 un qhs, aspart 8 un tid with meals, low dose sliding scale aspart Abnormal Cosynotropin Stimulation Test - Cortisol 2.7 on random draw. ACTH stim test with baseline- 1.1, 30min 7.2, 60min 9.9. Endo consulted due to abnormal stim test - will need repeat in outpatient setting PPx: SCDs FEN: monitor lytes, low Na diet, no IVF Full code Dispo continue inpatient admission Jason Burton MD Hospitalist Pager [phone] Subjective, ROS Niecy Richey is a 52 y.o. female. Transferred out of the MICU this morning. Dyspnea improved. Net negative 6 L. Down to 2 L O2. Eager to levae the hospital , whne she's stable. She denies f/c, chest pain, n/v, headache, abd pain, constipation, leg swelling. Medications Scheduled Meds: amitriptyline (ELAVIL) tablet 25 mg 25 mg Oral QHS duloxetine DR (CYMBALTA) capsule 30 mg 30 mg Oral QDAY eltrombopag (PROMACTA) tab 100 mg [Patient's Own Medication] 100 mg Oral QDAY(06) insulin aspart U-100 (NOVOLOG FLEXPEN) injection PEN 0-6 Units 0-6 Units Subcutaneous ACHS (22) insulin aspart U-100 (NOVOLOG FLEXPEN) injection PEN 8 Units 8 Units Subcutaneous TID w/ meals insulin glargine (LANTUS SOLOSTAR, BASAGLAR) injection PEN 40 Units 40 Units Subcutaneous QHS(22) lactulose oral solution 20 g 20 g Oral TID metoprolol tartrate (LOPRESSOR) tablet 12.5 mg 12.5 mg Oral BID nystatin (NYSTOP) topical powder Topical BID rifAXIMin (XIFAXAN) tablet 550 mg 550 mg Oral BID Continuous Infusions: furosemide (LASIX) 500 mg in 50 mL IV drip syr (max conc) 10 mg/hr ( 1355) PRN and Respiratory Meds:acetaminophen Q6H PRN, alteplase PRN (Concession Attendant from Rx) , gabapentin QDAY PRN AND gabapentin QDAY PRN AND gabapentin QHS PRN, ondansetron Q8H PRN, oxyCODONE Q6H PRN, tiZANidine Q8H PRN Objective Vital Signs: Last Filed Vital Signs: 24 Hour Range BP: 112/56 (06/29 1543) Temp: 36.7 C (98.1 F) (06/29 154) Pulse: 63 (06/29 154) Respirations: 20 PER MINUTE (06/29 154) SpO2: 98 % (06/29 154) O2 Delivery: Nasal Cannula (06/29 154) SpO2 Pulse: 85 (06/29 1200) Height: 170.2 cm (67") (06/29 135) BP: (105-122)/(51-74) Temp: [36.6 C (97.9 F)-36.9 C (98.5 F)] Pulse: [63-85] Respirations: [18 PER MINUTE-20 PER MINUTE] SpO2: [94 %-100 %] O2 Delivery: Nasal Cannula Intensity Pain Scale (Self Report): Asleep (06/29/18 1619) Vitals: 06/26/18 0832 06/28/18 1000 06/29/18 1356 Weight: (!) 145.6 kg (321 lb) (!) 147.5 kg (325 lb 2.9 oz) (!) 140 kg (308 lb 10.3 oz) Intake/Output Summary: (Last 24 hours) Intake/Output Summary (Last 24 hours) at 06/29/2018 1933 Last data filed at 06/29/2018 1658 Gross per 24 hour Intake 1130.62 ml Output 7175 ml Net -6044.38 ml Stool Occurrence: 1 Physical Exam GENERAL: calm, cooperative, no acute distress HEAD and NECK: EOMI, PERRL, neck supple CARDIOVASCULAR: normal rate, regular rhythm, no murmurs, rubs, or gallops. PULMONARY: lungs clear to auscultation bilaterally - no rhonchi, rales, wheezing. 2L O2 ABDOMEN: soft, nontender, nondistended, no rebound or guarding GENITOURINARY: no nichole in place EXTREMITIES: extremities warm, well-perfused, no edema. Normal peripheral pulses. SKIN: no rashes on exposed skin Lab Review 24-hour labs: Results for orders placed or performed during the hospital encounter of (from the past 24 hour(s)) POC GLUCOSE Collection Time: 06/28/18 9:15 PM Result Value Ref Range Glucose, POC 118 (H) 70 - 100 MG/DL BASIC METABOLIC PANEL Collection Time: 06/28/18 9:20 PM Result Value Ref Range Sodium 137 137 - 147 MMOL/L Potassium 5.3 (H) 3.5 - 5.1 MMOL/L Chloride 105 98 - 110 MMOL/L CO2 25 21 - 30 MMOL/L Anion Gap 7 3 - 12 Glucose 122 (H) 70 - 100 MG/DL Blood Urea Nitrogen 57 (H) 7 - 25 MG/DL Creatinine 1.64 (H) 0.4 - 1.00 MG/DL Calcium 8.4 (L) 8.5 - 10.6 MG/DL eGFR Non 33 (L) >60 mL/min eGFR 40 (L) >60 mL/min MAGNESIUM Collection Time: 06/28/18 9:20 PM Result Value Ref Range Magnesium 1.8 1.6 - 2.6 mg/dL PROTIME INR (PT) Collection Time: 06/29/18 4:25 AM Result Value Ref Range INR 1.5 (H) 0.8 - 1.2 PTT (APTT) Collection Time: 06/29/18 4:25 AM Result Value Ref Range APTT 34.3 24.0 - 36.5 SEC MAGNESIUM Collection Time: 06/29/18 4:25 AM Result Value Ref Range Magnesium 1.7 1.6 - 2.6 mg/dL COMPREHENSIVE METABOLIC PANEL Collection Time: 06/29/18 4:25 AM Result Value Ref Range Sodium 138 137 - 147 MMOL/L Potassium 4.1 3.5 - 5.1 MMOL/L Chloride 106 98 - 110 MMOL/L Glucose 84 70 - 100 MG/DL Blood Urea Nitrogen 54 (H) 7 - 25 MG/DL Creatinine 1.37 (H) 0.4 - 1.00 MG/DL Calcium 8.6 8.5 - 10.6 MG/DL Total Protein 6.0 6.0 - 8.0 G/DL Total Bilirubin 1.4 (H) 0.3 - 1.2 MG/DL Albumin 3.1 (L) 3.5 - 5.0 G/DL Alk Phosphatase 78 25 - 110 U/L AST (SGOT) 33 7 - 40 U/L CO2 27 21 - 30 MMOL/L ALT (SGPT) 16 7 - 56 U/L Anion Gap 5 3 - 12 eGFR Non 40 (L) >60 mL/min eGFR 49 (L) >60 mL/min CBC AND DIFF Collection Time: 06/29/18 4:25 AM Result Value Ref Range White Blood Cells 21.6 (H) 4.5 - 11.0 K/UL RBC 2.69 (L) 4.0 - 5.0 M/UL Hemoglobin 7.7 (L) 12.0 - 15.0 GM/DL Hematocrit 23.8 (L) 36 - 45 % MCV 88.4 80 - 100 FL MCH 28.5 26 - 34 PG MCHC 32.3 32.0 - 36.0 G/DL RDW 21.9 (H) 11 - 15 % Platelet Count 32 (L) 150 - 400 K/UL MPV 10.9 7 - 11 FL Nucleated RBCs 2 K/UL Segmented Neutrophils 61 41 - 77 % Bands 1 0 - 10 % Lymphocytes 20 (L) 24 - 44 % Monocytes 9 4 - 12 % Eosinophil 8 (H) 0 - 5 % Myelocyte 1 % ANISO PRESENT HYPO PRESENT Ovalocyte PRESENT Target PRESENT Platelet Estimate MKD DEC Absolute Neutrophil Count Manual 13.40 (H) 1.8 - 7.0 K/UL Acanthocytes PRESENT PHOSPHORUS Collection Time: 06/29/18 4:25 AM Result Value Ref Range Phosphorus 4.8 (H) 2.0 - 4.5 MG/DL POC GLUCOSE Collection Time: 06/29/18 6:26 AM Result Value Ref Range Glucose, POC 84 70 - 100 MG/DL POC GLUCOSE Collection Time: 06/29/18 8:51 AM Result Value Ref Range Glucose, POC 88 70 - 100 MG/DL POC GLUCOSE Collection Time: 06/29/18 11:32 AM Result Value Ref Range Glucose, POC 109 (H) 70 - 100 MG/DL MAGNESIUM Collection Time: 06/29/18 12:31 PM Result Value Ref Range Magnesium 1.8 1.6 - 2.6 mg/dL BASIC METABOLIC PANEL Collection Time: 06/29/18 12:31 PM Result Value Ref Range Sodium 141 137 - 147 MMOL/L Potassium 4.8 3.5 - 5.1 MMOL/L Chloride 103 98 - 110 MMOL/L CO2 29 21 - 30 MMOL/L Anion Gap 9 3 - 12 Glucose 111 (H) 70 - 100 MG/DL Blood Urea Nitrogen 49 (H) 7 - 25 MG/DL Creatinine 1.29 (H) 0.4 - 1.00 MG/DL Calcium 7.6 (L) 8.5 - 10.6 MG/DL eGFR Non 43 (L) >60 mL/min eGFR 52 (L) >60 mL/min FIBRINOGEN Collection Time: 06/29/18 12:31 PM Result Value Ref Range Fibrinogen 234 200 - 400 MG/DL HAPTOGLOBIN Collection Time: 06/29/18 12:31 PM Result Value Ref Range Haptoglobin 65 16 - 200 MG/DL DIRECT ANTIGLOBULIN TEST(STEVEN) Collection Time: 06/29/18 12:31 PM Result Value Ref Range STEVEN, [employer] [place] NEG RETICULOCYTE COUNT Collection Time: 06/29/18 12:31 PM Result Value Ref Range Retic, Uncorrected 3.0 (H) 0.5 - 2.0 % Retic, Corrected 1.7 % Retic, Absolute 82.3 30 - 94 K/UL IMMATURE PLATELET FRACTION Collection Time: 06/29/18 12:31 PM Result Value Ref Range Immature Platelet Fraction 40.0 (H) 1.1 - 7.1 % LDH-LACTATE DEHYDROGENASE Collection Time: 06/29/18 12:31 PM Result Value Ref Range Lactate Dehydrogenase 425 (H) 100 - 210 U/L BILIRUBIN, DIRECT Collection Time: 06/29/18 12:31 PM Result Value Ref Range Bilirubin, Direct 0.3 <0.4 MG/DL POC GLUCOSE Collection Time: 06/29/18 5:58 PM Result Value Ref Range Glucose, POC 134 (H) 70 - 100 MG/DL Point of Care Testing (Last 24 hours) Radiology and other Diagnostics Review: Pertinent radiology reviewed. Lupillo Burton MD * Weston Russell RN - 06/29/2018 2:41 PM CDT Patient arrived to room # (9014-0) via wheelchair accompanied by RN. Patient transferred to the bed with assistance. Bedside safety checks completed. Initial patient assessment completed, refer to flowsheet for details. Admission skin assessment completed by: VERENA Ontiveros and Petros/ Martha Pressure Injury Present on Hospital Admission (within 24 hours): Yes 1. Occiput: No 2. Ear: No 3. Scapula: No 4. Spinous Process: No 5. Shoulder: No 6. Elbow: No 7. Iliac Crest: No 8. Sacrum/Coccyx: Yes 9. Ischial Tuberosity: No 10. Trochanter: No 11. Knee: No 12. Malleolus: No 13. Heel: No 14. Toes: No 15. Assessed for device associated injury Yes 16. Nursing Nutrition Assessment Completed No See Doc Flowsheet for additional wound details. 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, GERD, HTN, ITP s/p splenectomy transferred to [facility] from OSH for further treatment of hypoxic respiratory failure - etiology determined to be secondary to volume overload in the setting of likely cardiorenal syndrome NEUROLOGY #Major Depressive Disorder #Insomina --continue prior to admission amitriptyline and duloxetine #Neuropathy --medications as above --will restart Gabapentin today at home dose --appreciate assistance of pain management RN: continue Tizanidine CARDIOVASCULAR #HTN --holding home lisinopril given MARIN --will restart Metoprolol 12.5 mg BID given stable blood pressures today #Volume Overload --appreciate cardiology assistance --patient had excellent diuresis with the addition of diuril (06/28/18) --will continue lasix gtt at 10 mg/hr - will follow up with Cardiology today to determine additional plans for diuresis --continue to monitor BMP and Mg BID PULMONARY #Acute on Chronic Hypoxemic Respiratory Failure --s/p 10 day course of broad spectrum antibiotics --improving with diuresis as above --continue work with PT/OT, Incentive Spirometry #NABIL/OHS --will plan to download information from [employer] today in order to establish fixed pressures - as this is more ideal given her presumed diastolic HF GI #ESLD 2/2 MCGOWAN & HCV --not currently an OLT candidate 2/2 BMI --HCV s/p treatment w/ interferon and ribavirin in 2012. SVR achieved. 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 MARINE ENGINE MECHANIC rifaximin and lactulose --diuresis with lasix as above RENAL #MARIN - improving --baseline Cr within normal limits --improving with diuresis - likely secondary to cardiorenal syndrome as above --see cardiovascular for further management INFECTIOUS DISEASE --s/p 10 day course for HCAP - no further infectious symptoms at this time --no further antibiotics #Intertrigo --continue nystatin ENDOCRINE #DM2 --continue lantus and MDCF #Abnormal Cosynotropin Stimulation Test --Coritsol 2.7 on random draw --Stim test: Baseline- 1.1, 30min 7.2, 60min 9.9 --Endo consulted due to abnormal stim test, patient will need repeat in outside setting as ICU can produce conflicting response to test. No intervention. HEMATOLOGY #ITP --s/p splenectomy at age 6 and follows [facility] caceres -Dr. Moran --continue Promacta #Thrombocytopenia --progressive over the last several days --HIT score 3 - with low probability --patient had not been receiving her Promacta at the outside hospital - and thus will discuss with Hematology if there is any role for steroids in this setting --Hematology consult FEN: no IVF, electrolytes replaced prn, cardiac/diabetic diet LDA: double lumen PICC, Nichole in place PPx: lovenox Code status: full code Disposition: floor status Patient was seen and discussed with Dr. Darrion Guzman MD Pulmonary/Critical Care Fellow Subjective No acute events overnight. Significant diuresis yesterday. She feels breathing is easier with the significant fluid removal ROS: Positive symptoms in bold CONSTITUTIONAL: fatigue, fevers, night sweats, weight loss HEENT: epistaxis, rhinorrhea, changes in vision, double vision, blurry vision CV: palpitations, chest pain, LE edema RESP: shortness of breath, wheezing, cough, productive sputum GI: nausea, vomiting, abdominal pain, diarrhea, melena, hematochezia : dysuria, hematuria, frequency, urgency, flank pain HEME: easy bleeding, bruising, gingival bleeding, lymphadenopathy MUSK: thoracic pain, lumbar pain, cervical pain, arthralgia NEURO: headache, weakness, gait instability PSYCH: altered mood, depression, manic symptoms Medications Scheduled Meds: amitriptyline (ELAVIL) tablet 25 mg 25 mg Oral QHS duloxetine DR (CYMBALTA) capsule 30 mg 30 mg Oral QDAY eltrombopag (PROMACTA) tab 100 mg [Patient's Own Medication] 100 mg Oral QDAY(06) insulin aspart U-100 (NOVOLOG FLEXPEN) injection PEN 0-6 Units 0-6 Units Subcutaneous ACHS (22) insulin aspart U-100 (NOVOLOG FLEXPEN) injection PEN 8 Units 8 Units Subcutaneous TID w/ meals insulin glargine (LANTUS SOLOSTAR, BASAGLAR) injection PEN 40 Units 40 Units Subcutaneous QHS(22) lactulose oral solution 20 g 20 g Oral TID nystatin (NYSTOP) topical powder Topical BID rifAXIMin (XIFAXAN) tablet 550 mg 550 mg Oral BID Continuous Infusions: furosemide (LASIX) 500 mg in 50 mL IV drip syr (max conc) 10 mg/hr ( 0737) PRN and Respiratory Meds:acetaminophen Q6H PRN, alteplase PRN (Concession Attendant from Rx) , ondansetron Q8H PRN, oxyCODONE Q6H PRN, tiZANidine Q8H PRN Objective Vital Signs: Last Filed Vital Signs: 24 Hour Range BP: 110/61 (06/30 1199) Temp: 36.7 C (98 F) (06/30 1199) Pulse: 85 (06/30 1199) Respirations: 19 PER MINUTE (06/28 2114) SpO2: 95 % (06/30 1199) O2 Delivery: Nasal Cannula (06/30 1199) SpO2 Pulse: 85 (06/30 1199) BP: (96-122)/(45-74) Temp: [36.6 C (97.9 F)-36.9 C (98.4 F)] Pulse: [66-85] Respirations: [18 PER MINUTE-19 PER MINUTE] SpO2: [94 %-100 %] O2 Delivery: Nasal Cannula Intensity Pain Scale (Self Report): 8 (06/29/18 1200) Vitals: 06/24/18 2145 06/26/18 0832 06/28/18 1000 Weight: (!) 146 kg (321 lb 14 oz) (!) 145.6 kg (321 lb) (!) 147.5 kg (325 lb 2.9 oz) Intake/Output Summary: (Last 24 hours) Intake/Output Summary (Last 24 hours) at 06/29/2018 1339 Last data filed at 06/29/2018 1300 Gross per 24 hour Intake 1267.62 ml Output 6675 ml Net -5407.38 ml Stool Occurrence: 1 Physical Exam: General: Patient in no acute distress, resting comfortably Head: Normocephalic, atraumatic Eyes: EOMI, conjunctiva clear, no scleral icterus Throat: no erythema noted Chest wall: No TTP or deformity noted Cardiac: Regular rate and rhythm, no rubs clicks or murmurs noted Pulmonary: Anterior lung armendariz clear. Basilar crackles bilaterally GI: Soft, non-distended. No tenderness to palpation. Bowel sounds active Ext: 3+ pedal edeam, 1-2+ edema to knee b/l Derm: No bruises or skin rashes noted Psych: Appropriate mood and affect. Lab Review 24-hour labs: Results for orders placed or performed during the hospital encounter of (from the past 24 hour(s)) POC GLUCOSE Collection Time: 06/28/18 4:52 PM Result Value Ref Range Glucose, POC 78 70 - 100 MG/DL POC GLUCOSE Collection Time: 06/28/18 9:15 PM Result Value Ref Range Glucose, POC 118 (H) 70 - 100 MG/DL BASIC METABOLIC PANEL Collection Time: 06/28/18 9:20 PM Result Value Ref Range Sodium 137 137 - 147 MMOL/L Potassium 5.3 (H) 3.5 - 5.1 MMOL/L Chloride 105 98 - 110 MMOL/L CO2 25 21 - 30 MMOL/L Anion Gap 7 3 - 12 Glucose 122 (H) 70 - 100 MG/DL Blood Urea Nitrogen 57 (H) 7 - 25 MG/DL Creatinine 1.64 (H) 0.4 - 1.00 MG/DL Calcium 8.4 (L) 8.5 - 10.6 MG/DL eGFR Non 33 (L) >60 mL/min eGFR 40 (L) >60 mL/min MAGNESIUM Collection Time: 06/28/18 9:20 PM Result Value Ref Range Magnesium 1.8 1.6 - 2.6 mg/dL PROTIME INR (PT) Collection Time: 06/29/18 4:25 AM Result Value Ref Range INR 1.5 (H) 0.8 - 1.2 PTT (APTT) Collection Time: 06/29/18 4:25 AM Result Value Ref Range APTT 34.3 24.0 - 36.5 SEC MAGNESIUM Collection Time: 06/29/18 4:25 AM Result Value Ref Range Magnesium 1.7 1.6 - 2.6 mg/dL COMPREHENSIVE METABOLIC PANEL Collection Time: 06/29/18 4:25 AM Result Value Ref Range Sodium 138 137 - 147 MMOL/L Potassium 4.1 3.5 - 5.1 MMOL/L Chloride 106 98 - 110 MMOL/L Glucose 84 70 - 100 MG/DL Blood Urea Nitrogen 54 (H) 7 - 25 MG/DL Creatinine 1.37 (H) 0.4 - 1.00 MG/DL Calcium 8.6 8.5 - 10.6 MG/DL Total Protein 6.0 6.0 - 8.0 G/DL Total Bilirubin 1.4 (H) 0.3 - 1.2 MG/DL Albumin 3.1 (L) 3.5 - 5.0 G/DL Alk Phosphatase 78 25 - 110 U/L AST (SGOT) 33 7 - 40 U/L CO2 27 21 - 30 MMOL/L ALT (SGPT) 16 7 - 56 U/L Anion Gap 5 3 - 12 eGFR Non 40 (L) >60 mL/min eGFR 49 (L) >60 mL/min CBC AND DIFF Collection Time: 06/29/18 4:25 AM Result Value Ref Range White Blood Cells 21.6 (H) 4.5 - 11.0 K/UL RBC 2.69 (L) 4.0 - 5.0 M/UL Hemoglobin 7.7 (L) 12.0 - 15.0 GM/DL Hematocrit 23.8 (L) 36 - 45 % MCV 88.4 80 - 100 FL MCH 28.5 26 - 34 PG MCHC 32.3 32.0 - 36.0 G/DL RDW 21.9 (H) 11 - 15 % Platelet Count 32 (L) 150 - 400 K/UL MPV 10.9 7 - 11 FL Nucleated RBCs 2 K/UL Segmented Neutrophils 61 41 - 77 % Bands 1 0 - 10 % Lymphocytes 20 (L) 24 - 44 % Monocytes 9 4 - 12 % Eosinophil 8 (H) 0 - 5 % Myelocyte 1 % ANISO PRESENT HYPO PRESENT Ovalocyte PRESENT Target PRESENT Platelet Estimate MKD DEC Absolute Neutrophil Count Manual 13.40 (H) 1.8 - 7.0 K/UL Acanthocytes PRESENT PHOSPHORUS Collection Time: 06/29/18 4:25 AM Result Value Ref Range Phosphorus 4.8 (H) 2.0 - 4.5 MG/DL POC GLUCOSE Collection Time: 06/29/18 6:26 AM Result Value Ref Range Glucose, POC 84 70 - 100 MG/DL POC GLUCOSE Collection Time: 06/29/18 8:51 AM Result Value Ref Range Glucose, POC 88 70 - 100 MG/DL POC GLUCOSE Collection Time: 06/29/18 11:32 AM Result Value Ref Range Glucose, POC 109 (H) 70 - 100 MG/DL MAGNESIUM Collection Time: 06/29/18 12:31 PM Result Value Ref Range Magnesium 1.8 1.6 - 2.6 mg/dL BASIC METABOLIC PANEL Collection Time: 06/29/18 12:31 PM Result Value Ref Range Sodium 141 137 - 147 MMOL/L Potassium 4.8 3.5 - 5.1 MMOL/L Chloride 103 98 - 110 MMOL/L CO2 29 21 - 30 MMOL/L Anion Gap 9 3 - 12 Glucose 111 (H) 70 - 100 MG/DL Blood Urea Nitrogen 49 (H) 7 - 25 MG/DL Creatinine 1.29 (H) 0.4 - 1.00 MG/DL Calcium 7.6 (L) 8.5 - 10.6 MG/DL eGFR Non 43 (L) >60 mL/min eGFR 52 (L) >60 mL/min FIBRINOGEN Collection Time: 06/29/18 12:31 PM Result Value Ref Range Fibrinogen 234 200 - 400 MG/DL HAPTOGLOBIN Collection Time: 06/29/18 12:31 PM Result Value Ref Range Haptoglobin 65 16 - 200 MG/DL DIRECT ANTIGLOBULIN TEST(STEVEN) Collection Time: 06/29/18 12:31 PM Result Value Ref Range STEVEN, [employer] [place] NEG RETICULOCYTE COUNT Collection Time: 06/29/18 12:31 PM Result Value Ref Range Retic, Uncorrected 3.0 (H) 0.5 - 2.0 % Retic, Corrected 1.7 % Retic, Absolute 82.3 30 - 94 K/UL LDH-LACTATE DEHYDROGENASE Collection Time: 06/29/18 12:31 PM Result Value Ref Range Lactate Dehydrogenase 425 (H) 100 - 210 U/L BILIRUBIN, DIRECT Collection Time: 06/29/18 12:31 PM Result Value Ref Range Bilirubin, Direct 0.3 <0.4 MG/DL Point of Care Testing (Last 24 hours) Radiology and other Diagnostics Review: Pertinent radiology reviewed. Timothy Guzman MD Associated attestation - Melissa Maier MD - 06/29/2018 9:39 PM CDT ATTESTATION I personally performed the jarrell portions of the E/M visit, discussed case with the resident and concur with the documentation of history, physical exam, assessment, and treatment plan unless otherwise noted. The patient had a significant icnrease in her urine output overnight. Decreased Lasix drip to 10 mg/hr. Also with drop in platelets. She had been off of Promacta for a period of time. We will obtain a peripheral smear. Ask hematology if any further workup needs to be performed. Holding ppx considering thrombocytopenia. Restarting home gabapentin considering improvement in her renal function. We have asked RT to evaluate auto-BIPAP for the pressures needed in order to develop a plan for a fixed pressure at home considering her diastolic heart failure. It would be recommended for her to be on a fixed pressure as an outpatient. Staff name: Melissa Maier MD Date: 06/29/2018 * Brian Guzman RN - 06/29/2018 9:20 AM CDT Inpatient Pain Management Nurses - [facility] - Follow -Up Primary team is responsible for entering orders. Suggested Plan for the Day: Continue current pain regimen. Reviewed changes to her pain regimen with her and her son. Changed fluoxetine to Duloxetine Changed cyclobenzaprine to tizanidine Gabapentin has not been restarted due to improving MARIN (medication dosed on CrCl ). I shared with her other choices to her pain regimen would be either choosing to restart gabapentin (pt thinks ineffective) or beginning trial of pregabalin. 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 I shared with them that a combination opioid could provide more optimal results by adding to multimodal approach and sparing opioids. She would need a provider that is willing to continue opioid therapy. Oxycodone-acetaminophen and or hydrocodone-acetaminophen both viable options. Anticipated D/C Planning: See above. S: Patient's current pain intensity: doing much better Clinically Aligned Pain Assessment Comfort: Comfortably manageable Change in pain: Getting better Pain control: Fully effective Function: Can do most things, but pain gets in the way of some things Sleep: Normal sleep O: Oral morphine equivalent (OME) used over past 24 hours (7:01 AM - 7:00 AM)- ~ 20 mg Current Analgesic Regimen, OME: Current Facility-Administered Medications: acetaminophen (TYLENOL) tablet 650 mg, 650 mg, Oral, Q6H PRN, Beck Chaidez MD, 650 mg at 06/28/18 1336 alteplase (CATHFLO ACTIVASE) injection 2 mg, 2 mg, Injection, PRN (Concession Attendant from Rx), Kelton Restrepo MD, 2 mg at 06/27/18 0427 amitriptyline (ELAVIL) tablet 25 mg, 25 mg, Oral, QHS, Timothy Guzman MD , 25 mg at 06/28/[address] (CYMBALTA) capsule 30 mg, 30 mg, Oral, QDAY, Timothy Guzman MD, 30 mg at 06/29/18 0842 eltrombopag (PROMACTA) tab 100 mg [Patient's Own Medication], 100 mg, Oral, QDAY(), Beck Chaidez MD, 100 mg at 06/29/18 0625 furosemide (LASIX) 500 mg in 50 mL IV drip syr (max conc), 10 mg/hr, Intravenous, Continuous, Lei Calabrese MD, Last Rate: 1 mL/hr at 06/29/18 0737, 10 mg/hr at 06/29/18 0737 insulin aspart U-100 (NOVOLOG FLEXPEN) injection PEN 0-6 Units, 0-6 Units, Subcutaneous, ACHS (22), Lupillo Coto MD, 1 Units at 06/28/18 1034 insulin aspart U-100 (NOVOLOG FLEXPEN) injection PEN 8 Units, 8 Units, Subcutaneous, TID w/ meals, Lupillo Coto MD, 8 Units at 06/28/18 1207 insulin glargine (LANTUS SOLOSTAR, BASAGLAR) injection PEN 40 Units, 40 Units, Subcutaneous, QHS(22), Lupillo Coto MD, 40 Units at 06/28/18 2130 lactulose oral solution 20 g, 20 g, Oral, TID, Lupillo Coto MD, 20 g at 06/29/18 1026 nystatin (NYSTOP) topical powder, , Topical, BID, Lupillo Coto MD oxyCODONE (ROXICODONE, OXY-IR) tablet 5-10 mg, 5-10 mg, Oral, Q6H PRN, Pablito Payne MD, 5 mg at 06/29/18 0625 rifAXIMin (XIFAXAN) tablet 550 mg, 550 mg, Oral, BID, Lupillo Coto MD , 550 mg at 06/29/18 0842 tiZANidine (ZANAFLEX) tablet 4 mg, 4 mg, Oral, Q8H PRN, Timothy Guzamn MD , 4 mg at 06/29/18 1130 Please call with questions/concerns. Brian Guzman, MSN, RN- Clinical Nurse Coordinator Pain Management [phone] Team pager [phone] * Cordelia Cao RN - 06/29/2018 8:05 AM CDT 0700: Report received and care assumed. Bedside safety check completed. Alarms and gtt verified. Pt AOx4 and VSS per pt trends. Pt currently on 4L NC. 0800: Assessment completed and documented per ICU flowsheet. Pt denies pain at this time. Will continue to monitor. 1300: Report given to RN on unit 46 and pt transferred via wheelchair by 2 aides with all belongings. Family at bedside. * Susanne Shah APRN-SALONI - 06/29/2018 6:05 AM CDT Heart Failure Progress Note NAME:Niecy Richey :1965 AGE: 52 y.o. ADMISSION DATE: 06/24/2018 DAYS ADMITTED: LOS: 5 days Active Problems: End stage liver disease (HCC) Metabolic acidosis Acidosis Consulted for: "Pt volume overloaded with resolving acute hypoxic resp failure , new Mitral stenosis noted on echo." 52 yo with PMHx of chronic respiratory failure on 2 L of O2 per NC with exertion , hypertension, ESLD 2/2 Hep C & MCGOWAN, and ITP s/p splenectomy who was transferred to [facility] from outside facility rehab on 06/24/18 for treatment of hypoxic respiratory failure and persistent metabolic acidosis. The patient had been admitted at [facility] from 06/07 to 06/15/18 for treatment of CAP with acute hypoxic respiratory failure and ESLD with hepatic encephalopathy. Once stable, she was discharged to [facility] inpatient rehab for ongoing PT/OT. Per patient and family, on 06/23 the patient began to retain fluid and gained 11# in one day. She developed SILVERMAN, weight gain, BLEE, abdominal distension, and lower extremity pain 2/2 bilateral swelling. An echocardiogram was done 06/26/18 revealing LVEF 70 %, moderate LA dilation, IVC >15, mild to moderate stenosis that appeared mildly more advanced than previous echo in 08/2017, and severe mitral annular calcification. Cardiology consulted to further evaluate patient. Recommendation Today: 1. Patient put out 6.0 L of urine overnight and is net -6.8 L in total. Primary decreased drip from 20 mg/h to 10 mg/h. Recommend continuing Lasix drip at 10 mg/h. Would consider giving IV Diuril 250 mg once again today. 2. Platelets trending down - unlikely 2/2 to lasix gtt but possible contributor. Will continue to monitor. 3. Continue working with PT/OT. 4. Continue to try to obtain daily standing weights. 5. Patient should be monitored on telemetry. 6. Will continue to follow. Ongoin. Need daily Standing weights and strict I/Os. 8. BMP twice a day. Magnesium level daily. Keep Potassium greater than 4.0 and Magnesium greater than 2.0. 9. 2000mg sodium dietary restriction. 10. Fluid Restriction:1.5 11. Goal output: net neg 2L/24 hour 12. Daily standing scale weight. Goal Dry Weight: needs established. 13. Follow up appointment with a member of the HF team or PCP within 7 calendar days of discharge. Patient seen and plan discussed with Dr. Buckner. GISELA Chong (pager [phone]) EKG: SR - no sign of acute ischemia. Assessment: Acute on chronic hypoxic/hypercarbic respiratory failure 06/07 - 06/15: treated for CAP at [facility] 06/15 - 06/18: inpatient rehab in [place] 06-18 - 06/24: admitted to ICU for respiratory failure, treated for HCAP with zosyn , escalated to meropenem (unclear why the escalation). Required intubation ~72h at OSH, now down to 2L NC. ABG 7.34/38/76 on 2L NC on 06/24 CXR on arrival with volume overloaded appearance. Primary currently questioning FVOL vs HCAP vs Multi-factorial. Procalcitonin 0.17 on 06/24, was 0.09 in 06/08/18. Patient was treated with Zosyn and vancomycin during admission. Persistent Leukocytosis WBC 27.0 on 06/26, improving. Patient is afebrile with stable BP and HR 70s. Acute diastolic HFpEF, EF: 70%. Likely NICM. Major Complications or Comorbidities ([facility]): acute respiratory failure NYHA functional class III (marked limitation of physical activity - comfortable at rest, but less than ordinary activity causes symptoms of HF e.g., getting dressed or standing from a sitting position), ACC Stage C (structural heart disease with prior or current symptoms of HF). She presents with signs of hypervolemia without signs of low flow state. Admission BNP: 967 Chest x ray 06/24/18: Findings consistent with CHF/volume overload including cardiomegaly, pulmonary vascular congestion and small to moderate left pleural effusion. Echocardiogram 06/26/18 revealed LVEF 70%, normal size and shape LV, concentric remodeling, unable to assess diastolic function. RV normal size and EF. LA moderately dilated. RA normal size. IVC >15. Calcified thickening of mitral leaflets. Mild to moderate stenosis which appears increased in comparison to previous echo in 08/2016. There is trace MR and severe mitral annular calcification. Mild TR. 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 She denies formal cardiac work up in the past - no stress test, LHC, etc. Intake/Output: 2.4 L of urine overnight, -896 mL in 24 hours, -1.5 mL total. Goal Dry Weight: Need to establish. May - June 2017 patient weighed 282#. Made to October 2017 patient weighed 271-274#. May 2018 patient weighed 283#. Admission weight 321# Vitals: 06/24/18 2145 06/26/18 0832 06/28/18 1000 Weight: (!) 146 kg (321 lb 14 oz) (!) 145.6 kg (321 lb) (!) 147.5 kg (325 lb 2.9 oz) Diuretic Therapy Prior to admission dose Given on admission Daily Dosing 06/25 IV Lasix 40 mg twice daily 06/26 IV lasix 40 mg x1, increased to 80 mg bid starting with afternoon dose 06/27 IV lasix gtt 10 mg/ hr and then increased to 20 mg/hr 06/28 lasix gtt at 20 mg/hr + diuril 250 mg x1 recommended 06/29 Lasix drip at 10 mg/h + Diuril 250 mg x1 recommended GDMT MARINE ENGINE MECHANIC Changes BB recently was started on Toprol-XL 100 mg daily, held upon admission. 06/27 lopressor 25 mg bid started per primary. 06/28 lopressor held, marginal BP and HR 50-60s ACEI/ARB/ARNI recently on lisinopril, however, d/c and started on BB/ Aldosterone Antagonist Hydralazine/Nitrate Ivabradine HRMT Anticoagulation for Afib/flutter Mild to moderate mitral valve stenosis Severe mitral annular calcification Echo 08/30/16 revealed severe mitral annular calcification without evidence of significant stenosis or regurgitation. Most recent echo 06/26/18: Calcific thickening of mitral leaflets. Mild to moderate stenosis. Mean gr 7 mm Hg @ HR 67 bpm. Trace regurgitation. There is severe mitral annular calcification. Mitral valve disease not felt to be a driving force behind patient's fluid retention or symptoms of heart failure at this time. 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 BP stable MARIN Admission creatinine 1.72 Baseline creatinine 0.8-1.0, currently 1.92. DMII - insulin dependent, HgA1C 5.8. 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 Per GI/Hepatology note on 06/09/18 during previous hospitalization, patient recommended to get EGD done in outpatient setting as she was due for a screening. Hx of ITP s/p splenectomy Platelets 95. Patient denies recent bleeding issues. Chronic lower back and right hip pain Primary managing, pain management consulted. Questionable NABIL -no history of sleep study. Subjective: Today she reports shortness of breath and dyspnea on exertion. Her lower extremity edema is improving. Symptoms of heart failure are improving. She denies lightheadedness, positional lightheadedness, near syncope, palpitations and chest pain. Overnight Events:No new events noted. 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 The patient had been admitted at [facility] from 06/07 to 06/15/18 for treatment of CAP with acute hypoxic respiratory failure and ESLD with hepatic encephalopathy. Once stable, she was discharged to [facility] inpatient rehab for ongoing PT/ OT. Per patient and family, on 06/23 the patient began to retain fluid and gained 11# in one day. She developed SILVERMAN, weight gain, BLEE, abdominal distension, and lower extremity pain 2/2 bilateral swelling. An echocardiogram was done 06/26/18 revealing LVEF 70%, moderate LA dilation, IVC >15, mild to moderate stenosis that appeared mildly more advanced than previous echo in 08/2017, and severe mitral annular calcification. Cardiology consulted to further evaluate patient. Patient reports improvement in heart failure symptoms with IV diuresis. She admits to decreased abdominal distention. She continues to struggle with lower extremity edema. Patient history of cardiac disease. Additionally she denies any known family history of cardiac disease. She denies smoking or illicit drug use. She reports very rare occasions of alcohol use. Review of Systems: All other systems reviewed and are negative. Except for mentioned above. Objective: amitriptyline (ELAVIL) tablet 25 mg 25 mg Oral QHS duloxetine DR (CYMBALTA) capsule 30 mg 30 mg Oral QDAY eltrombopag (PROMACTA) tab 100 mg [Patient's Own Medication] 100 mg Oral QDAY() enoxaparin (LOVENOX) syringe 40 mg 40 mg Subcutaneous QDAY() insulin aspart U-100 (NOVOLOG FLEXPEN) injection PEN 0-6 Units 0-6 Units Subcutaneous ACHS (22) insulin aspart U-100 (NOVOLOG FLEXPEN) injection PEN 8 Units 8 Units Subcutaneous TID w/ meals insulin glargine (LANTUS SOLOSTAR, BASAGLAR) injection PEN 40 Units 40 Units Subcutaneous QHS(22) lactulose oral solution 20 g 20 g Oral TID nystatin (NYSTOP) topical powder Topical BID rifAXIMin (XIFAXAN) tablet 550 mg 550 mg Oral BID acetaminophen Q6H PRN, alteplase PRN (Concession Attendant from Rx), oxyCODONE Q6H PRN, tiZANidine Q8H PRN Vital Signs: Last Filed Vital Signs: 24 Hour Range BP: 105/74 (06/30 399) Temp: 36.7 C (98.1 F) (06/30 399) Pulse: 75 (06/30 399) Respirations: 19 PER MINUTE (06/28 2114) SpO2: 97 % (06/30 399) O2 Delivery: Nasal Cannula (06/30 399) SpO2 Pulse: 75 (06/30 399) BP: (96-122)/(45-74) Temp: [36.7 C (98.1 F)-36.9 C (98.4 F)] Pulse: [66-75] Respirations: [18 PER MINUTE-19 PER MINUTE] SpO2: [93 %-100 %] O2 Delivery: Nasal Cannula Intensity Pain Scale (Self Report): 6 Physical Exam: General Appearance: obese, appears stated age, no acute distress Neck Veins: Difficult to assess due to body habitus. Respiratory Effort: breathing comfortably, no respiratory distress Auscultation/Percussion: Mild bibasilar crackles Cardiac Rhythm: regular rhythm and normal rate Cardiac Auscultation: S1, S2 present but clear splitting not heard, no rub, no S3 gallop, no S4 gallop but exam is limited by her body habitus Murmurs: Grade 2/6 systolic murmur; no definite rumbling diastolic murmur heard with limitations as above Lower Extremity Edema: 3-4+ lower extremity edema, improving Abdominal Exam: soft, non-tender, non-distended, normal bowel sounds Neurologic Exam: awake, alert, conversant, appropriate, neurological assessment grossly intact and moves all extremities Laboratory Review: 24-hour labs: Results for orders placed or performed during the hospital encounter of (from the past 24 hour(s)) CBC Collection Time: 06/28/18 6:50 AM Result Value Ref Range White Blood Cells 18.3 (H) 4.5 - 11.0 K/UL RBC 2.38 (L) 4.0 - 5.0 M/UL Hemoglobin 6.8 (L) 12.0 - 15.0 GM/DL Hematocrit 21.2 (L) 36 - 45 % MCV 89.3 80 - 100 FL MCH 28.4 26 - 34 PG MCHC 31.8 (L) 32.0 - 36.0 G/DL RDW 22.8 (H) 11 - 15 % Platelet Count 38 (L) 150 - 400 K/UL MPV 11.4 (H) 7 - 11 FL POC GLUCOSE Collection Time: 06/28/18 9:55 AM Result Value Ref Range Glucose, POC 191 (H) 70 - 100 MG/DL BASIC METABOLIC PANEL Collection Time: 06/28/18 10:01 AM Result Value Ref Range Sodium 139 137 - 147 MMOL/L Potassium 4.7 3.5 - 5.1 MMOL/L Chloride 108 98 - 110 MMOL/L CO2 25 21 - 30 MMOL/L Anion Gap 6 3 - 12 Glucose 148 (H) 70 - 100 MG/DL Blood Urea Nitrogen 57 (H) 7 - 25 MG/DL Creatinine 1.71 (H) 0.4 - 1.00 MG/DL Calcium 8.4 (L) 8.5 - 10.6 MG/DL eGFR Non 31 (L) >60 mL/min eGFR 38 (L) >60 mL/min CBC Collection Time: 06/28/18 10:01 AM Result Value Ref Range White Blood Cells 18.4 (H) 4.5 - 11.0 K/UL RBC 2.61 (L) 4.0 - 5.0 M/UL Hemoglobin 7.4 (L) 12.0 - 15.0 GM/DL Hematocrit 23.5 (L) 36 - 45 % MCV 89.9 80 - 100 FL MCH 28.3 26 - 34 PG MCHC 31.5 (L) 32.0 - 36.0 G/DL RDW 23.2 (H) 11 - 15 % Platelet Count 45 (L) 150 - 400 K/UL MPV 12.3 (H) 7 - 11 FL POC GLUCOSE Collection Time: 06/28/18 4:52 PM Result Value Ref Range Glucose, POC 78 70 - 100 MG/DL POC GLUCOSE Collection Time: 06/28/18 9:15 PM Result Value Ref Range Glucose, POC 118 (H) 70 - 100 MG/DL BASIC METABOLIC PANEL Collection Time: 06/28/18 9:20 PM Result Value Ref Range Sodium 137 137 - 147 MMOL/L Potassium 5.3 (H) 3.5 - 5.1 MMOL/L Chloride 105 98 - 110 MMOL/L CO2 25 21 - 30 MMOL/L Anion Gap 7 3 - 12 Glucose 122 (H) 70 - 100 MG/DL Blood Urea Nitrogen 57 (H) 7 - 25 MG/DL Creatinine 1.64 (H) 0.4 - 1.00 MG/DL Calcium 8.4 (L) 8.5 - 10.6 MG/DL eGFR Non 33 (L) >60 mL/min eGFR 40 (L) >60 mL/min MAGNESIUM Collection Time: 06/28/18 9:20 PM Result Value Ref Range Magnesium 1.8 1.6 - 2.6 mg/dL PROTIME INR (PT) Collection Time: 06/29/18 4:25 AM Result Value Ref Range INR 1.5 (H) 0.8 - 1.2 PTT (APTT) Collection Time: 06/29/18 4:25 AM Result Value Ref Range APTT 34.3 24.0 - 36.5 SEC MAGNESIUM Collection Time: 06/29/18 4:25 AM Result Value Ref Range Magnesium 1.7 1.6 - 2.6 mg/dL COMPREHENSIVE METABOLIC PANEL Collection Time: 06/29/18 4:25 AM Result Value Ref Range Sodium 138 137 - 147 MMOL/L Potassium 4.1 3.5 - 5.1 MMOL/L Chloride 106 98 - 110 MMOL/L Glucose 84 70 - 100 MG/DL Blood Urea Nitrogen 54 (H) 7 - 25 MG/DL Creatinine 1.37 (H) 0.4 - 1.00 MG/DL Calcium 8.6 8.5 - 10.6 MG/DL Total Protein 6.0 6.0 - 8.0 G/DL Total Bilirubin 1.4 (H) 0.3 - 1.2 MG/DL Albumin 3.1 (L) 3.5 - 5.0 G/DL Alk Phosphatase 78 25 - 110 U/L AST (SGOT) 33 7 - 40 U/L CO2 27 21 - 30 MMOL/L ALT (SGPT) 16 7 - 56 U/L Anion Gap 5 3 - 12 eGFR Non 40 (L) >60 mL/min eGFR 49 (L) >60 mL/min CBC AND DIFF Collection Time: 06/29/18 4:25 AM Result Value Ref Range White Blood Cells 21.6 (H) 4.5 - 11.0 K/UL RBC 2.69 (L) 4.0 - 5.0 M/UL Hemoglobin 7.7 (L) 12.0 - 15.0 GM/DL Hematocrit 23.8 (L) 36 - 45 % MCV 88.4 80 - 100 FL MCH 28.5 26 - 34 PG MCHC 32.3 32.0 - 36.0 G/DL RDW 21.9 (H) 11 - 15 % Platelet Count 32 (L) 150 - 400 K/UL MPV 10.9 7 - 11 FL Nucleated RBCs 2 K/UL Segmented Neutrophils 61 41 - 77 % Bands 1 0 - 10 % Lymphocytes 20 (L) 24 - 44 % Monocytes 9 4 - 12 % Eosinophil 8 (H) 0 - 5 % Myelocyte 1 % ANISO PRESENT HYPO PRESENT Ovalocyte PRESENT Target PRESENT Platelet Estimate MKD DEC Absolute Neutrophil Count Manual 13.40 (H) 1.8 - 7.0 K/UL Acanthocytes PRESENT PHOSPHORUS Collection Time: 06/29/18 4:25 AM Result Value Ref Range Phosphorus 4.8 (H) 2.0 - 4.5 MG/DL , Hematology: Lab Results Component Value Date HGB 7.7 06/29/2018 HCT 23.8 06/29/2018 PLTCT 32 06/29/2018 WBC 21.6 06/29/2018 NEUT 58 06/27/2018 ANC 13.40 06/29/2018 ANC 14.20 06/27/2018 LYMPH 20 06/29/2018 ALC 4.40 06/27/2018 SIMEON 17 06/27/2018 AMC 4.00 06/27/2018 ABC 0.20 06/27/2018 BASOPHILS 1 06/25/2018 MCV 88.4 06/29/2018 MCHC 32.3 06/29/2018 MPV 10.9 06/29/2018 RDW 21.9 06/29/2018 , Coagulation: Lab Results Component Value Date PTT 34.3 06/29/2018 INR 1.5 06/29/2018 and General Chemistry: Lab Results Component Value Date NA 138 06/29/2018 K 4.1 06/29/2018 CL 106 06/29/2018 GAP 5 06/29/2018 BUN 54 06/29/2018 CR 1.37 06/29/2018 GLU 84 06/29/2018 GLU 116 06/08/2018 CA 8.6 06/29/2018 ALBUMIN 3.1 06/29/2018 LACTIC 2.3 09/11/2016 OBSCA 1.09 08/29/2016 MG 1.7 06/29/2018 TOTBILI 1.4 06/29/2018 Point of Care Testing: (Last 24 hours): Echocardiogram Details: Echo Results (Last 3 results in the past 3 years) Echo EF LVIDD LA Size IVS LVPW Rest PAP (06/26/18) 70 (06/26/18) 4.55 (06/26/18) 5.24 (06/26/18) 1.10 (06/26/18) 1.02 (06/26/18) 62 (08/30/16) 70 (08/30/16) 4.9 (08/30/16) 4.3 (08/30/16) 1.4 (08/30/16) 1.0 (08/20/16) 35 (08/20/16) 60 (08/20/16) 4.9 (08/20/16) 5.1 (08/20/16) 1.2 (08/20/16) 1.2 * Donita Moscoso RN - 06/28/2018 7:20 PM CDT 1920: assumed care from previous RN; bedside safety check completed; pt A+Ox4, araya; vss; pt is tele status; will continue to monitor; VERENA Zamora * James Swain, VERENA - 06/28/2018 6:34 PM CDT 0730: Report received and bedside safety check completed. 0745: Head to toe assessment completed - see ICU flow sheet. Plan of care reviewed with patient and her son. The patient is alert and oriented x 4. The patient denied any pain at this time. Will continue to closely monitor. No significant events or concerns noted throughout the remainder of the shift. * Kelton Ogden - 06/28/2018 4:55 PM CDT Reason for Visit: Unit rounding, Christy/Judaism: Advent, Source of Purpose/Meaning: Pt seemed stable, talked about family, illness, christy , treatment receiving , provided pastoral support, offered prayer, Worries/Concerns/Struggles: Method(s) of Coping: Support System: Interventions/Plan: * Amber Marquez, PT - 06/28/2018 1:15 PM CDT PHYSICAL THERAPY PROGRESS NOTE MOBILITY: Mobility Progressive Mobility Level: Stand Level of Assistance: Assist X2 Assistive Device: Walker Time Tolerated: 11-30 minutes Activity Limited By: Pain;Weakness SUBJECTIVE: Subjective Significant hospital events: PMH: chronic respiratory failure on exertional 2L O2, DM2, 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 Recent DC from [facility] 06/15 to inpatient rehab facility. Admitted due to pneumonia, hypoxic respiratory failure, persistent metabolic acidosis. Mental / Cognitive Status: Alert;Oriented;Cooperative Persons Present: Son;RehabTechnician Pain: Patient complains of pain;7/10;Before activity;9/10;After activity Pain Location: Back Pain Interventions: Patient agrees to participate in therapy;Treatment altered to patient's pain tolerance;Nursing staff notified of patient's pain level Comments: Patient on 4L O2 via nasal cannula. Ambulation Assist: Independent Mobility in Community with Device(prior to this May used cane in community) Patient Owned Equipment: Single Point Cane;Roller Walker;Manual Wheelchair Home Situation: Lives with Family Type of Home: House Entry Stairs: 1-2 Stairs;Ramp In-Home Stairs: No Stairs Comments: Plans to return to previous rehab facility. BED MOBILITY/TRANSFERS: Bed Mobility/Transfers Bed Mobility: Supine to Sit: Standby Assist;Requires Extra Time;Head of Bed Elevated;Use of Rail Transfer Type: Sit to/from Stand(x 2 reps) Transfer: Assistance Level: To/From;Bed;Minimal Assist;x2 People Transfer: Assistive Device: Roller Walker Transfers: Type Of Assistance: Verbal Cues;For Safety Considerations;For Balance ;For Strength Deficit End Of Activity Status: In Bed;Nursing Notified;Instructed Patient to Request Assist with Mobility;Instructed Patient to Use Call Light BALANCE: Balance Sitting Balance: Standby Assist Standing Balance: Static Standing Balance;Standby Assist;2 UE support;Dynamic Standing Balance;Minimal Assist GAIT: Gait Gait Distance: (side steps to HOB) Gait: Assistance Level: Minimal Assist;x2 People Gait: Assistive Device: Roller Walker Gait: Descriptors: Pace: Slow;Decreased step length;No balance loss Activity Limited By: Complaint of Pain ACTIVITY/EXERCISE: Activity / Exercise Activity Tolerance: Tolerates 20+ Minutes of Activity Activity Limited By: Complaint of Pain;Complaint of Fatigue ASSESSMENT/PROGRESS: Assessment/Progress Comments: Patietn activity limited by pain and fatigue this date. AM-PAC 6 Clicks Basic Mobility Inpatient Turning from your back to your side while in a flat bed without using bed rails : A Little Moving from lying on your back to sitting on the side of a flatbed without using bedrails : A Little Moving to and from a bed to a chair (including a wheelchair): A Lot Standing up from a chair using your arms (e.g. wheelchair, or bedside chair): A Lot To walk in hospital room: A Lot Climbing 3-5 steps with a railing: Total Raw Score: 13 Standardized (T-scale) Score: 33.99 Basic Mobility CMS 0-100%: 57.65 CMS G Code Modifier for Basic Mobility: CK GOALS: Goals Goal Formulation: With Patient Time For Goal Achievement: 7 days Patient Will Go Supine To/From Sit: w/ Minimal Assist Patient Will Transfer Sit to Stand: w/ Minimal Assist Patient Will Ambulate: 11-30 Feet, w/ Walker, w/ Minimal Assist Patient Will Sit Edge Of Bed: 6-10 Minutes, w/ Stand By Assist PLAN: Plan Treatment Interventions: Mobility Training;Strengthening;Endurance Training Plan Frequency: 5 Days per Week PT Plan for Next Visit: Pre-gait and ambulation as able. RECOMMENDATIONS: PT Discharge Recommendations PT Discharge Recommendations: Inpatient Setting Therapist: Amber Marquez PT, DPT Date: 06/28/2018 * Alexander Buckner MD - 06/28/2018 11:08 AM CDT She reports feeling better today with less shortness of breath, but is still concerned about her marked swelling. Her net fluid loss was rather disappointing, and the primary team increased the lasix drip to 20 mg/h Last night. On examination, she is morbidly obese, mildly jaundiced, and is wearing supplemental oxygen but appears to be breathing comfortably. Her heart tones are quiet but the rhythm is regular without a de finite third heart sound appreciated. She has marked Doughy Edema of her lower extremities bilaterally up to the knees. I discussed the situation is at length with the patient and her son at the bedside, and I also visited with the ICU team to discuss ongoing management. The ICU team had planned to start Metolazone po today, but I would suggest using chlorothiazide 250 mg IV instead I suspect she may have some gut edema that may impact absorption and we would get better efficacy from the IV route. 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 Pt has been admitted to transferring hospital for ~1 week with pneumonia requiring intubation, ultimately weaned to 2L NC. Precautions: O2 Requirement(4L NC) Pain / Complaints: Patient agrees to participate in therapy;Patient demonstrates nonverbal signs of pain Pain Location: Back Pain Level Current: (no pain in supine, increasing pain in standing) Objective Psychosocial Status: Willing and Cooperative to Participate Persons Present: Son;RehabTechnician Home Living Type of Home: House Home Layout: One Level;Ramped Entrance;Able to Live on Main Level w/Bedrm/ Bathrm Access Bathroom Shower / Tub: Walk-in Shower Bathroom Toilet: Standard Home Equipment: Walker;Cane;Wheelchair-manual Prior Function Level Of Struthers: Independent with ADLs and functional transfers;Needed assistance with homemaking Lives With: Spouse;Son(DIL, grandchild.) Receives Help From: Family(All family members work during the day.) Other Function Comments: Pt transferred to [facility] from an outside subacute rehab within a hospital. Was ambulating with a SPC prior to recent hospital admissions. Uses a manual wheelchair within the community. States that she has had 3 falls in the past 6 months as a result of her 'legs giving out.' Pt reports that she is typically ambulatory with all ADLs and is able to do some light cooking and cleaning. States that she was walking with a RW at rehab. ADL's Where Assessed: Chair;Edge of Bed;Supine, Bed Grooming Assist: Stand By Assist Grooming Deficits: Brushing Hair;Setup LE Dressing Assist: Total Assist LE Dressing Deficits: Don/Doff R Sock;Don/Doff L Sock Functional Transfer Assist: (CGA supine to sit, mod assist x 2 for OOB transfers ) Functional Transfer Deficits: Steadying Comment: Transferred supine to sitting at EOB with CGA during trunk elevation. Stood from EOB and completed stand and step transfer to chair with min assist x 2. Pt with quick and uncontrolled descent to the chair against therapist's advice, likely d/t increasing anxiety contributing to back pain (and reported spasming) during transfer. Chair reclined and LEs elevated with wedge and pillow to assist with edema mgmt. Participated in hair combing in chair with SBA for setup with pt demonstrating adequate UE ROM. Activity Tolerance Endurance: 1/5 Tolerates <10 Minutes Exercises, No Significant Change in Vital Signs Sitting Balance: 3+/5 Sits w/o UE Support for 30 Seconds or Greater Assessment Assessment: Decreased ADL Status;Decreased Endurance;Decreased Self-Care Trans; Decreased High-Level ADLs Prognosis: Good;w/Cont OT s/p Acute Discharge Goal Formulation: Patient AM-PAC 6 Clicks Daily Activity Inpatient Putting on and taking off regular lower body clothes?: Total Bathing (Including washing, rinsing, drying): A Lot Toileting, which includes using toilet, bedpan, or urinal: Total Putting on and taking off regular upper body clothing: A Lot Taking care of personal grooming such as brushing teeth: A Little Eating meals?: None Daily Activity Raw Score: 13 Standardized (t-scale) score: 32.03 CMS 0-100% Score: 63.03 CMS G Code Modifier: CL Plan Progress: Slow Progress, Decreased Activity Tolerance OT Frequency: 5x/week OT Plan for Next Visit: Grooming in standing, toileting with BSC, progress functional transfers. ADL Goals Patient Will Perform Grooming: Standing at Sink;w/ Stand By Assist Patient Will Perform LE Dressing: w/ Moderate Assist Patient Will Perform Toileting: w/ Moderate Assist Functional Transfer Goals Pt Will Transfer To Bedside Commode: w/ Minimum Assist OT Discharge Recommendations OT Discharge Recommendations: Inpatient Setting Equipment Recommendations: Shower Chair, Caser Up, Sock José Luis, Long Handled Bath Sponge, Toilet Seat Riser(grab bars, hand held shower head) Therapist: JUSTINA Mccormack R/L [id number] Date: 06/28/2018 * Bobby Hernandez MD - 06/28/2018 6:36 AM CDT General Progress Note Name: Niecy Richey Today's Date: 06/28/2018 Admission Date: 06/24/2018 LOS: 4 days Assessment/Plan: Active Problems: End stage liver disease (HCC) Metabolic acidosis Acidosis 52yo F hx of recurrent hospitalizations, chronic respiratory failure on exertional 2L O2, DM2, 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 Pt has been admitted to transferring hospital for ~1 week with pneumonia requiring intubation, ultimately weaned to 2L NC. Acidosis persists, despite bicarb gtt. Interval: -Start Diuril 250mg QD, potential to increase to 500mg in AM pending urinary response -Continuing Lasix Gtt @20mg/hr Neuro MDD Insomnia Plan: > MARINE ENGINE MECHANIC amitryptiline > Duloxetine Neuropathy - MARINE ENGINE MECHANIC was on gabapentin 300mg/600mg/600mg (TID dosing) Plan: > holding gabapentin with current MARIN > Duloxetine and amitriptyline as above > Pain nursing continuing to follow CV HTN - MARINE ENGINE MECHANIC was on lisinopril Plan: > Had started metoprolol, but will hold at this point due to soft blood pressures and continued volume shifting. Will plan to resume this inpatient stay as pressures tolerate. Volume Overload -Echo w/o systolic or diastolic dysfunction. Notable for mild/moderate mitral stenosis. -Patient with approximate 40lb weight gain -Patient remains difficult to diuresis with net negative 670mL on lasix gtt Plan: -Cardiology consulted, appreciate managment -Cont Lasix gtt 20mg/hr -Start Diuril 250mg QD, may further increase to 500mg in AM pending diuretic response. -BID Mg, BMPs Pulm Acute on chronic Hypoxic / hypercarbic respiratory failure - 06/07 - 06/15: treated for CAP at [facility] - 06/15 - 06/18: inpatient rehab in [place] - 06-18 - 06/24: admitted to ICU for respiratory failure, treated for HCAP with zosyn, escalated to meropenem(unclear why the escalation). - Initially required intubation ~72h at OSH, now down to 2L NC. - ABG 7.34/38/76 on 2L NC on 06/24 - CXR on arrival with volume overloaded appearance. - Procal 0.17 - Echo w/ mild diastolic dysfunction. Notable for mild/moderate mitral stenosis. - DDx: Presume patients symptoms are most likley 2/2 volume overloaded state. Plan: > Diuresis as above > No further abx, completed 10 day course. 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 SVR achieved. Plan: > continue MARINE ENGINE MECHANIC rifaximin and lactulose > diuresis with lasix as above Renal MARIN - baseline Cr normal - MARINE ENGINE MECHANIC OSH Cr 2.06 - at OSH, appears she was diuresed and also subsequently given crystalloid and colloid. pt states she has gained weight and feels more edematous in LE and abdomen - Creatinine continuing to improve to 1.59 now. Suspect renal dysfunction due to renal congestion in volume overloaded state. Plan: > Diuresis as above > daily CMP, monitor UOP and I/Os daily [place] Metabolic Acidosis - OSH ABG 7.26/57/72/20. - [facility] AB.34/38/76 (on 2-3L NC) - initial bicarb 20, which likely represents a more significant acidosis as she is a chronic retainer. (Baseline around 30s) - OHS/NABIL vs MARIN vs diarrhea Plan: > diuresis as above, continue to monitor MARIN as above ID HCAP treatment at OSH - received zosyn, escalated to meropenem at OSH, completed additional 3 days of treatment for 10 day total course. Plan: > Stop further abx. > f/u cultures (sputum, blood, urine) Intertrigo Plan: > MARINE ENGINE MECHANIC nystatin Endo DM2 - MARINE ENGINE MECHANIC lantus 40, novolog 8u Plan: > continue lantus and MDCF Abnormal Cosynotropin stim test - Coritsol 2.7 on random draw - Stim test: Baseline- 1.1, 30min 7.2, 60min 9.9 Plan > Endo consulted due to abnormal stim test, patient will need repeat in outside setting as ICU can produce conflicting response to test. No intervention. Heme ITP -s/p splenectomy at age 6 and follows [facility] -Dr. Moran - platelet count wnl on admission, denies any recent bleeds - Plt 54 > 91 Plan: > Cont MARINE ENGINE MECHANIC Promacta Leukocytosis - Patient with historical leukocytosis for past two years. No mention in heme/ onc notes. - Do not suspect this is secondary to infectious etiology. Chronic Anemia -Remains stable at baseline 7.2 FEN: no IVF, electrolytes replaced prn, cardiac/diabetic diet LDA: double lumen PICC, Nichole in place, no artificial airway PPx: lovenox Code status: full code Disposition: floor status Patient was seen and discussed with Dr. Darrion Hernandez MD Internal Medicine Resident, PGY-1 Pager: [phone] Subjective Patient mildly discouraged today. Is hopeful that she will be able to start peeing more as she is getting tired of being in hospital and wants to be home. Denies any fever or chills. Denies any dyspnea or cough. Understands plan for continued diuresis today. ROS: 10 Point ROS completed, documented as positive per subjective history. Medications Scheduled Meds: amitriptyline (ELAVIL) tablet 25 mg 25 mg Oral QHS duloxetine DR (CYMBALTA) capsule 30 mg 30 mg Oral QDAY eltrombopag (PROMACTA) tab 100 mg [Patient's Own Medication] 100 mg Oral QDAY() enoxaparin (LOVENOX) syringe 40 mg 40 mg Subcutaneous QDAY() insulin aspart U-100 (NOVOLOG FLEXPEN) injection PEN 0-6 Units 0-6 Units Subcutaneous ACHS (22) insulin aspart U-100 (NOVOLOG FLEXPEN) injection PEN 8 Units 8 Units Subcutaneous TID w/ meals insulin glargine (LANTUS SOLOSTAR, BASAGLAR) injection PEN 40 Units 40 Units Subcutaneous QHS(22) lactulose oral solution 20 g 20 g Oral TID metOLazone (ZAROXOLYN) tablet 5 mg 5 mg Oral ONCE metoprolol tartrate (LOPRESSOR) tablet 12.5 mg 12.5 mg Oral BID nystatin (NYSTOP) topical powder Topical BID rifAXIMin (XIFAXAN) tablet 550 mg 550 mg Oral BID Continuous Infusions: furosemide (LASIX) 500 mg in 50 mL IV drip syr (max conc) 20 mg/hr (2109) PRN and Respiratory Meds:acetaminophen Q6H PRN, alteplase PRN (Concession Attendant from Rx) , oxyCODONE Q6H PRN, tiZANidine Q8H PRN Objective Vital Signs: Last Filed Vital Signs: 24 Hour Range BP: 89/37 (06/28 408) Temp: 36.6 C (97.9 F) (06/28 408) Pulse: 62 (06/27 2040) Respirations: 16 PER MINUTE (06/27 2040) SpO2: 97 % (06/28 408) O2 Delivery: Nasal Cannula (06/28 214) SpO2 Pulse: 61 (06/28 408) BP: (89-110)/(37-65) Temp: [36.3 C (97.4 F)-36.7 C (98 F)] Pulse: [57-67] Respirations: [16 PER MINUTE-22 PER MINUTE] SpO2: [91 %-98 %] O2 Delivery: Nasal Cannula Vitals: 06/24/18 2145 06/26/18 0832 Weight: (!) 146 kg (321 lb 14 oz) (!) 145.6 kg (321 lb) Intake/Output Summary: (Last 24 hours) Intake/Output Summary (Last 24 hours) at 06/28/2018 0636 Last data filed at 06/28/2018 0400 Gross per 24 hour Intake 1429.23 ml Output 2100 ml Net -670.77 ml Stool Occurrence: 1 Physical Exam: General: Patient in no acute distress, resting comfortably Head: Normocephalic, atraumatic Eyes: EOMI, conjunctiva clear, no scleral icterus Throat: no erythema noted Chest wall: No TTP or deformity noted Cardiac: Regular rate and rhythm, no rubs clicks or murmurs noted Pulmonary: Anterior lung armendariz clear. GI: Soft, non-distended. No tenderness to palpation. Bowel sounds active Ext: 3+ pedal edeam, 1-2+ edema to knee b/l Derm: No bruises or skin rashes noted Psych: Appropriate mood and affect. Lab Review 24-hour labs: Results for orders placed or performed during the hospital encounter of (from the past 24 hour(s)) POC GLUCOSE Collection Time: 06/27/18 11:41 AM Result Value Ref Range Glucose, POC 160 (H) 70 - 100 MG/DL BASIC METABOLIC PANEL Collection Time: 06/27/18 3:12 PM Result Value Ref Range Sodium 137 137 - 147 MMOL/L Potassium 4.8 3.5 - 5.1 MMOL/L Chloride 108 98 - 110 MMOL/L CO2 25 21 - 30 MMOL/L Anion Gap 4 3 - 12 Glucose 168 (H) 70 - 100 MG/DL Blood Urea Nitrogen 55 (H) 7 - 25 MG/DL Creatinine 1.80 (H) 0.4 - 1.00 MG/DL Calcium 8.7 8.5 - 10.6 MG/DL eGFR Non 29 (L) >60 mL/min eGFR 35 (L) >60 mL/min MAGNESIUM Collection Time: 06/27/18 3:12 PM Result Value Ref Range Magnesium 2.0 1.6 - 2.6 mg/dL POC GLUCOSE Collection Time: 06/27/18 5:51 PM Result Value Ref Range Glucose, POC 138 (H) 70 - 100 MG/DL POC GLUCOSE Collection Time: 06/27/18 8:09 PM Result Value Ref Range Glucose, POC 123 (H) 70 - 100 MG/DL POC GLUCOSE Collection Time: 06/28/18 4:18 AM Result Value Ref Range Glucose, POC 108 (H) 70 - 100 MG/DL CBC AND DIFF Collection Time: 06/28/18 4:20 AM Result Value Ref Range White Blood Cells 22.2 (H) 4.5 - 11.0 K/UL RBC 2.55 (L) 4.0 - 5.0 M/UL Hemoglobin 7.2 (L) 12.0 - 15.0 GM/DL Hematocrit 23.2 (L) 36 - 45 % MCV 90.9 80 - 100 FL MCH 28.2 26 - 34 PG MCHC 31.1 (L) 32.0 - 36.0 G/DL RDW 22.1 (H) 11 - 15 % Platelet Count 54 (L) 150 - 400 K/UL MPV 10.8 7 - 11 FL Segmented Neutrophils 62 41 - 77 % Lymphocytes 15 (L) 24 - 44 % Monocytes 11 4 - 12 % Eosinophil 12 (H) 0 - 5 % ANISO PRESENT HYPO PRESENT POIK PRESENT POLY PRESENT Ovalocyte PRESENT Schistocyte PRESENT Target PRESENT [place] Bodies PRESENT Absolute Neutrophil Count Manual 13.76 (H) 1.8 - 7.0 K/UL PROTIME INR (PT) Collection Time: 06/28/18 4:20 AM Result Value Ref Range INR 1.5 (H) 0.8 - 1.2 PTT (APTT) Collection Time: 06/28/18 4:20 AM Result Value Ref Range APTT 31.5 24.0 - 36.5 SEC COMPREHENSIVE METABOLIC PANEL Collection Time: 06/28/18 4:20 AM Result Value Ref Range Sodium 138 137 - 147 MMOL/L Potassium 5.5 (H) 3.5 - 5.1 MMOL/L Chloride 109 98 - 110 MMOL/L Glucose 101 (H) 70 - 100 MG/DL Blood Urea Nitrogen 56 (H) 7 - 25 MG/DL Creatinine 1.59 (H) 0.4 - 1.00 MG/DL Calcium 8.3 (L) 8.5 - 10.6 MG/DL Total Protein 5.6 (L) 6.0 - 8.0 G/DL Total Bilirubin 1.2 0.3 - 1.2 MG/DL Albumin 2.9 (L) 3.5 - 5.0 G/DL Alk Phosphatase 74 25 - 110 U/L AST (SGOT) 26 7 - 40 U/L CO2 25 21 - 30 MMOL/L ALT (SGPT) 12 7 - 56 U/L Anion Gap 4 3 - 12 eGFR Non 34 (L) >60 mL/min eGFR 41 (L) >60 mL/min MAGNESIUM Collection Time: 06/28/18 4:20 AM Result Value Ref Range Magnesium 1.8 1.6 - 2.6 mg/dL PHOSPHORUS Collection Time: 06/28/18 4:20 AM Result Value Ref Range Phosphorus 5.0 (H) 2.0 - 4.5 MG/DL Point of Care Testing (Last 24 hours) Radiology and other Diagnostics Review: Pertinent radiology reviewed. Bobby Hernandez MD Associated attestation - Melissa Maier MD - 06/28/2018 8:32 PM CDT ATTESTATION I personally performed the jarrell portions of the E/M visit, discussed case with the resident and concur with the documentation of history, physical exam, assessment, and treatment plan unless otherwise noted. The patient continues to have significant volume on board. She has had a much more robust urine output with the addition of Diuril to her regimen. We will recheck her chemistry this afternoon. Continue auto BiPAP at night, though a fixed pressure would be better for her with concern for diastolic dysfunction. She she remained stable for the floor. Staff name: Melissa Maier MD Date: 06/28/2018 * Susanne Shah APRN-DAYCARE PROVIDER - 06/28/2018 6:13 AM CDT Heart Failure Progress Note NAME:Niecy Richey :1965 AGE: 52 y.o. 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 The patient had been admitted at [facility] from 06/07 to 06/15/18 for treatment of CAP with acute hypoxic respiratory failure and ESLD with hepatic encephalopathy. Once stable, she was discharged to [facility] inpatient rehab for ongoing PT/OT. Per patient and family, on 06/23 the patient began to retain fluid and gained 11# in one day. She developed SILVERMAN, weight gain, BLEE, abdominal distension, and lower extremity pain 2/2 bilateral swelling. An echocardiogram was done 06/26/18 revealing LVEF 70 %, moderate LA dilation, IVC >15, mild to moderate stenosis that appeared mildly more advanced than previous echo in 08/2017, and severe mitral annular calcification. Cardiology consulted to further evaluate patient. Recommendation Today: 1. BP 89-104/40s ON and HR 50-60s, recommend holding lopressor 12.5 mg bid today. 2. Patient put out 2.4 L urine overnight and is down 1.5 L total. Cr improving with diuresis, baseline 0.8-1.0. Continue lasix gtt 20 mg/hr. Would change plan of metolazone 5 mg once per primary and consider giving IV diuril 250 mg once. 3. K 5.5, anticipate improvement with diuresis. 4. Mg 1.8, will require replacement. 5. Platelets trending down - unlikely 2/2 to lasix gtt but possible contributor. Will continue to monitor. 6. Continue working with PT/OT. 7. No weight recorded yesterday or today, spoke with RN - planning to possibly work with PT to obtain standing scale weight. 8. Patient should be monitored on telemetry. 9. Will continue to follow. Ongoin. Need daily Standing weights and strict I/Os. 8. BMP twice a day. Magnesium level daily. Keep Potassium greater than 4.0 and Magnesium greater than 2.0. 9. 2000mg sodium dietary restriction. 10. Fluid Restriction:1.5 11. Goal output: net neg 2L/24 hour 12. Daily standing scale weight. Goal Dry Weight: needs established. 13. Follow up appointment with a member of the HF team or PCP within 7 calendar days of discharge. Patient seen and plan discussed with Dr. Buckner. Recommendations verbalized to primary team. GISELA Chong (pager [phone]) EKG: SR - no sign of acute ischemia. Assessment: Acute on chronic hypoxic/hypercarbic respiratory failure 06/07 - 06/15: treated for CAP at [facility] 06/15 - 06/18: inpatient rehab in [place] 06-18 - 06/24: admitted to ICU for respiratory failure, treated for HCAP with zosyn , escalated to meropenem (unclear why the escalation). Required intubation ~72h at OSH, now down to 2L NC. ABG 7.34/38/76 on 2L NC on 06/24 CXR on arrival with volume overloaded appearance. Primary currently questioning FVOL vs HCAP vs Multi-factorial. Procalcitonin 0.17 on 06/24, was 0.09 in 06/08/18. Patient was treated with Zosyn and vancomycin during admission. Persistent Leukocytosis WBC 27.0 on 06/26, improving. Patient is afebrile with stable BP and HR 70s. Acute diastolic HFpEF, EF: 70%. Likely NICM. Major Complications or Comorbidities ([facility]): acute respiratory failure NYHA functional class III (marked limitation of physical activity - comfortable at rest, but less than ordinary activity causes symptoms of HF e.g., getting dressed or standing from a sitting position), ACC Stage C (structural heart disease with prior or current symptoms of HF). She presents with signs of hypervolemia without signs of low flow state. Admission BNP: 967 Chest x ray 06/24/18: Findings consistent with CHF/volume overload including cardiomegaly, pulmonary vascular congestion and small to moderate left pleural effusion. Echocardiogram 06/26/18 revealed LVEF 70%, normal size and shape LV, concentric remodeling, unable to assess diastolic function. RV normal size and EF. LA moderately dilated. RA normal size. IVC >15. Calcified thickening of mitral leaflets. Mild to moderate stenosis which appears increased in comparison to previous echo in 08/2016. There is trace MR and severe mitral annular calcification. Mild TR. 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 She denies formal cardiac work up in the past - no stress test, LHC, etc. Intake/Output: 2.4 L of urine overnight, -896 mL in 24 hours, -1.5 mL total. Goal Dry Weight: Need to establish. May - June 2017 patient weighed 282#. Made to October 2017 patient weighed 271-274#. May 2018 patient weighed 283#. Admission weight 321# Vitals: 06/24/18 2145 06/26/18 0832 06/28/18 1000 Weight: (!) 146 kg (321 lb 14 oz) (!) 145.6 kg (321 lb) (!) 147.5 kg (325 lb 2.9 oz) Diuretic Therapy Prior to admission dose Given on admission Daily Dosing 06/25 IV Lasix 40 mg twice daily 06/26 IV lasix 40 mg x1, increased to 80 mg bid starting with afternoon dose 06/27 IV lasix gtt 10 mg/ hr and then increased to 20 mg/hr 06/28 continued gtt at 20 mg/hr + diuril 250 mg x1 recommended GDMT MARINE ENGINE MECHANIC Changes BB recently was started on Toprol-XL 100 mg daily, held upon admission. 06/27 lopressor 25 mg bid started per primary. 06/28 lopressor held, marginal BP and HR 50-60s ACEI/ARB/ARNI recently on lisinopril, however, d/c and started on BB/ Aldosterone Antagonist Hydralazine/Nitrate Ivabradine HRMT Anticoagulation for Afib/flutter Mild to moderate mitral valve stenosis Severe mitral annular calcification Echo 08/30/16 revealed severe mitral annular calcification without evidence of significant stenosis or regurgitation. Most recent echo 06/26/18: Calcific thickening of mitral leaflets. Mild to moderate stenosis. Mean gr 7 mm Hg @ HR 67 bpm. Trace regurgitation. There is severe mitral annular calcification. Mitral valve disease not felt to be a driving force behind patient's fluid retention or symptoms of heart failure at this time. 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 BP currently primarily 110-120s/50s MARIN Admission creatinine 1.72 Baseline creatinine 0.8-1.0, currently 1.92. DMII - insulin dependent, HgA1C 5.8. 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 Per GI/Hepatology note on 06/09/18 during previous hospitalization, patient recommended to get EGD done in outpatient setting as she was due for a screening. Hx of ITP s/p splenectomy Platelets 95. Patient denies recent bleeding issues. Chronic lower back and right hip pain Primary managing, pain management consulted. Questionable NABIL -no history of sleep study. Subjective: Today she reports shortness of breath and dyspnea on exertion. Symptoms of heart failure are improving. She denies lightheadedness, positional lightheadedness, near syncope, palpitations and chest pain. Overnight Events:No new events noted. 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 The patient had been admitted at [facility] from 06/07 to 06/15/18 for treatment of CAP with acute hypoxic respiratory failure and ESLD with hepatic encephalopathy. Once stable, she was discharged to [facility] inpatient rehab for ongoing PT/ OT. Per patient and family, on 06/23 the patient began to retain fluid and gained 11# in one day. She developed SILVERMAN, weight gain, BLEE, abdominal distension, and lower extremity pain 2/2 bilateral swelling. An echocardiogram was done 06/26/18 revealing LVEF 70%, moderate LA dilation, IVC >15, mild to moderate stenosis that appeared mildly more advanced than previous echo in 08/2017, and severe mitral annular calcification. Cardiology consulted to further evaluate patient. Patient reports improvement in heart failure symptoms with IV diuresis. She admits to decreased abdominal distention. She continues to struggle with lower extremity edema. Patient history of cardiac disease. Additionally she denies any known family history of cardiac disease. She denies smoking or illicit drug use. She reports very rare occasions of alcohol use. Review of Systems: All other systems reviewed and are negative. Except for mentioned above. Objective: amitriptyline (ELAVIL) tablet 25 mg 25 mg Oral QHS duloxetine DR (CYMBALTA) capsule 30 mg 30 mg Oral QDAY eltrombopag (PROMACTA) tab 100 mg [Patient's Own Medication] 100 mg Oral QDAY() enoxaparin (LOVENOX) syringe 40 mg 40 mg Subcutaneous QDAY(21) insulin aspart U-100 (NOVOLOG FLEXPEN) injection PEN 0-6 Units 0-6 Units Subcutaneous ACHS (22) insulin aspart U-100 (NOVOLOG FLEXPEN) injection PEN 8 Units 8 Units Subcutaneous TID w/ meals insulin glargine (LANTUS SOLOSTAR, BASAGLAR) injection PEN 40 Units 40 Units Subcutaneous QHS(22) lactulose oral solution 20 g 20 g Oral TID metoprolol tartrate (LOPRESSOR) tablet 12.5 mg 12.5 mg Oral BID nystatin (NYSTOP) topical powder Topical BID rifAXIMin (XIFAXAN) tablet 550 mg 550 mg Oral BID acetaminophen Q6H PRN, alteplase PRN (Concession Attendant from Rx), oxyCODONE Q6H PRN, tiZANidine Q8H PRN Vital Signs: Last Filed Vital Signs: 24 Hour Range BP: 89/37 (06/28 408) Temp: 36.6 C (97.9 F) (06/28 408) Pulse: 62 (06/27 2040) Respirations: 16 PER MINUTE (06/27 2040) SpO2: 97 % (06/28 408) O2 Delivery: Nasal Cannula (06/28 214) SpO2 Pulse: 61 (04/10 0409) BP: (89-110)/(37-65) Temp: [36.3 C (97.4 F)-36.7 C (98 F)] Pulse: [57-67] Respirations: [16 PER MINUTE-22 PER MINUTE] SpO2: [91 %-98 %] O2 Delivery: Nasal Cannula Intensity Pain Scale (Self Report): 6 Physical Exam: General Appearance: obese, appears stated age, no acute distress Neck Veins: Difficult to assess due to body habitus. Respiratory Effort: breathing comfortably, no respiratory distress Auscultation/Percussion: Mild bibasilar crackles Cardiac Rhythm: regular rhythm and normal rate Cardiac Auscultation: S1, S2 present but clear splitting not heard, no rub, no S3 gallop, no S4 gallop but exam is limited by her body habitus Murmurs: Grade 2/6 systolic murmur; no definite rumbling diastolic murmur heard with limitations as above Lower Extremity Edema: 4+ lower extremity edema Abdominal Exam: soft, non-tender, non-distended, normal bowel sounds Neurologic Exam: awake, alert, conversant, appropriate, neurological assessment grossly intact and moves all extremities Laboratory Review: 24-hour labs: Results for orders placed or performed during the hospital encounter of (from the past 24 hour(s)) BASIC METABOLIC PANEL Collection Time: 06/27/18 3:12 PM Result Value Ref Range Sodium 137 137 - 147 MMOL/L Potassium 4.8 3.5 - 5.1 MMOL/L Chloride 108 98 - 110 MMOL/L CO2 25 21 - 30 MMOL/L Anion Gap 4 3 - 12 Glucose 168 (H) 70 - 100 MG/DL Blood Urea Nitrogen 55 (H) 7 - 25 MG/DL Creatinine 1.80 (H) 0.4 - 1.00 MG/DL Calcium 8.7 8.5 - 10.6 MG/DL eGFR Non 29 (L) >60 mL/min eGFR 35 (L) >60 mL/min MAGNESIUM Collection Time: 06/27/18 3:12 PM Result Value Ref Range Magnesium 2.0 1.6 - 2.6 mg/dL POC GLUCOSE Collection Time: 06/27/18 5:51 PM Result Value Ref Range Glucose, POC 138 (H) 70 - 100 MG/DL POC GLUCOSE Collection Time: 06/27/18 8:09 PM Result Value Ref Range Glucose, POC 123 (H) 70 - 100 MG/DL POC GLUCOSE Collection Time: 06/28/18 4:18 AM Result Value Ref Range Glucose, POC 108 (H) 70 - 100 MG/DL CBC AND DIFF Collection Time: 06/28/18 4:20 AM Result Value Ref Range White Blood Cells 22.2 (H) 4.5 - 11.0 K/UL RBC 2.55 (L) 4.0 - 5.0 M/UL Hemoglobin 7.2 (L) 12.0 - 15.0 GM/DL Hematocrit 23.2 (L) 36 - 45 % MCV 90.9 80 - 100 FL MCH 28.2 26 - 34 PG MCHC 31.1 (L) 32.0 - 36.0 G/DL RDW 22.1 (H) 11 - 15 % Platelet Count 54 (L) 150 - 400 K/UL MPV 10.8 7 - 11 FL Segmented Neutrophils 62 41 - 77 % Lymphocytes 15 (L) 24 - 44 % Monocytes 11 4 - 12 % Eosinophil 12 (H) 0 - 5 % ANISO PRESENT HYPO PRESENT POIK PRESENT POLY PRESENT Ovalocyte PRESENT Schistocyte PRESENT Target PRESENT [place] Bodies PRESENT Absolute Neutrophil Count Manual 13.76 (H) 1.8 - 7.0 K/UL PROTIME INR (PT) Collection Time: 06/28/18 4:20 AM Result Value Ref Range INR 1.5 (H) 0.8 - 1.2 PTT (APTT) Collection Time: 06/28/18 4:20 AM Result Value Ref Range APTT 31.5 24.0 - 36.5 SEC COMPREHENSIVE METABOLIC PANEL Collection Time: 06/28/18 4:20 AM Result Value Ref Range Sodium 138 137 - 147 MMOL/L Potassium 5.5 (H) 3.5 - 5.1 MMOL/L Chloride 109 98 - 110 MMOL/L Glucose 101 (H) 70 - 100 MG/DL Blood Urea Nitrogen 56 (H) 7 - 25 MG/DL Creatinine 1.59 (H) 0.4 - 1.00 MG/DL Calcium 8.3 (L) 8.5 - 10.6 MG/DL Total Protein 5.6 (L) 6.0 - 8.0 G/DL Total Bilirubin 1.2 0.3 - 1.2 MG/DL Albumin 2.9 (L) 3.5 - 5.0 G/DL Alk Phosphatase 74 25 - 110 U/L AST (SGOT) 26 7 - 40 U/L CO2 25 21 - 30 MMOL/L ALT (SGPT) 12 7 - 56 U/L Anion Gap 4 3 - 12 eGFR Non 34 (L) >60 mL/min eGFR 41 (L) >60 mL/min MAGNESIUM Collection Time: 06/28/18 4:20 AM Result Value Ref Range Magnesium 1.8 1.6 - 2.6 mg/dL PHOSPHORUS Collection Time: 06/28/18 4:20 AM Result Value Ref Range Phosphorus 5.0 (H) 2.0 - 4.5 MG/DL CBC Collection Time: 06/28/18 6:50 AM Result Value Ref Range White Blood Cells 18.3 (H) 4.5 - 11.0 K/UL RBC 2.38 (L) 4.0 - 5.0 M/UL Hemoglobin 6.8 (L) 12.0 - 15.0 GM/DL Hematocrit 21.2 (L) 36 - 45 % MCV 89.3 80 - 100 FL MCH 28.4 26 - 34 PG MCHC 31.8 (L) 32.0 - 36.0 G/DL RDW 22.8 (H) 11 - 15 % Platelet Count 38 (L) 150 - 400 K/UL MPV 11.4 (H) 7 - 11 FL POC GLUCOSE Collection Time: 06/28/18 9:55 AM Result Value Ref Range Glucose, POC 191 (H) 70 - 100 MG/DL BASIC METABOLIC PANEL Collection Time: 06/28/18 10:01 AM Result Value Ref Range Sodium 139 137 - 147 MMOL/L Potassium 4.7 3.5 - 5.1 MMOL/L Chloride 108 98 - 110 MMOL/L CO2 25 21 - 30 MMOL/L Anion Gap 6 3 - 12 Glucose 148 (H) 70 - 100 MG/DL Blood Urea Nitrogen 57 (H) 7 - 25 MG/DL Creatinine 1.71 (H) 0.4 - 1.00 MG/DL Calcium 8.4 (L) 8.5 - 10.6 MG/DL eGFR Non 31 (L) >60 mL/min eGFR 38 (L) >60 mL/min CBC Collection Time: 06/28/18 10:01 AM Result Value Ref Range White Blood Cells 18.4 (H) 4.5 - 11.0 K/UL RBC 2.61 (L) 4.0 - 5.0 M/UL Hemoglobin 7.4 (L) 12.0 - 15.0 GM/DL Hematocrit 23.5 (L) 36 - 45 % MCV 89.9 80 - 100 FL MCH 28.3 26 - 34 PG MCHC 31.5 (L) 32.0 - 36.0 G/DL RDW 23.2 (H) 11 - 15 % Platelet Count 45 (L) 150 - 400 K/UL MPV 12.3 (H) 7 - 11 FL , Hematology: Lab Results Component Value Date HGB 7.4 06/28/2018 HCT 23.5 06/28/2018 PLTCT 45 06/28/2018 WBC 18.4 06/28/2018 NEUT 58 06/27/2018 ANC 13.76 06/28/2018 ANC 14.20 06/27/2018 LYMPH 15 06/28/2018 ALC 4.40 06/27/2018 SIMEON 17 06/27/2018 AMC 4.00 06/27/2018 ABC 0.20 06/27/2018 BASOPHILS 1 06/25/2018 MCV 89.9 06/28/2018 MCHC 31.5 06/28/2018 MPV 12.3 06/28/2018 RDW 23.2 06/28/2018 , Coagulation: Lab Results Component Value Date PTT 31.5 06/28/2018 INR 1.5 06/28/2018 and General Chemistry: Lab Results Component Value Date NA 139 06/28/2018 K 4.7 06/28/2018 CL 108 06/28/2018 GAP 6 06/28/2018 BUN 57 06/28/2018 CR 1.71 06/28/2018 GLU 148 06/28/2018 GLU 116 06/08/2018 CA 8.4 06/28/2018 ALBUMIN 2.9 06/28/2018 LACTIC 2.3 09/11/2016 OBSCA 1.09 08/29/2016 MG 1.8 06/28/2018 TOTBILI 1.2 06/28/2018 Point of Care Testing: (Last 24 hours): Echocardiogram Details: Echo Results (Last 3 results in the past 3 years) Echo EF LVIDD LA Size IVS LVPW Rest PAP (06/26/18) 70 (06/26/18) 4.55 (06/26/18) 5.24 (06/26/18) 1.10 (06/26/18) 1.02 (06/26/18) 62 (08/30/16) 70 (08/30/16) 4.9 (08/30/16) 4.3 (08/30/16) 1.4 (08/30/16) 1.0 (08/20/16) 35 (08/20/16) 60 (08/20/16) 4.9 (08/20/16) 5.1 (08/20/16) 1.2 (08/20/16) 1.2 Associated attestation - Alexander Buckner MD - 06/28/2018 10:30 PM CDT Teaching Physician Attestation: I have personally interviewed and examined the patient, have reviewed the documentation, and agree with the assessment and plan of the DAYCARE PROVIDER. Please see my separate progress note from earlier today for further details on this patient's care. Alexander Buckner M.D. * Donita Moscoso RN - 06/27/2018 7:20 PM CDT 1920: assumed care from previous RN; bedside safety check completed; pt A+Ox4, araya; vss; pt is med surg status; denies pain @ this time; will continue to monitor; VERENA Zamora 1944: pt extremely tearful & emotional regarding fluid restriction, educating patient that primary RN was gathering night time meds to preserve fluids for medicine administration; pt crying out that she is "extremely thirsty"; reiterated to patient that RN would return to room with meds & water within 5 min; will continue to monitor; VERENA Zamora 2100: notified Dr. Restrepo of pt net balance -200ml; lasix gtt increased to 20mg/ hr; will continue to monitor; VERENA Zamora * Melba Bonner OT - 06/27/2018 3:50 PM CDT OCCUPATIONAL THERAPY PROGRESS NOTE Patient Name: Niecy Richey Room/Bed: [place] [address] Mobility Progressive Mobility Level: Active transfer to chair Level of Assistance: Assist X2 Assistive Device: Walker Time Tolerated: 11-30 minutes Activity Limited By: Pain;Weakness Subjective Pertinent Dx per Physician: 52yo F hx of recurrent hospitalizations, chronic respiratory failure on exertional 2L O2, DM2, ESLD 2/2 HCV & MCGOWAN, GERD, HTN, ITP s/p splenectomy transferred to [facility] from [facility] for further treatment of hypoxic respiratory failure, persistent metabolic acidosis. Pt has been admitted to transferring hospital for ~1 week with pneumonia requiring intubation, ultimately weaned to 2L NC. Precautions: O2 Requirement(2L NC) Pain / Complaints: Patient agrees to participate in therapy;Patient demonstrates nonverbal signs of pain Pain Location: Back Objective Psychosocial Status: Willing and Cooperative to Participate Persons Present: Son;RehabTechnician Home Living Type of Home: House Home Layout: One Level;Ramped Entrance;Able to Live on Main Level w/Bedrm/ Bathrm Access Bathroom Shower / Tub: Walk-in Shower Bathroom Toilet: Standard Home Equipment: Walker;Cane;Wheelchair-manual Prior Function Level Of Struthers: Independent with ADLs and functional transfers;Needed assistance with homemaking Lives With: Spouse;Son(SHANAE, grandchild.) Receives Help From: Family(All family members work during the day.) Other Function Comments: Pt transferred to [facility] from an outside subacute rehab within a hospital. Was ambulating with a SPC prior to recent hospital admissions. Uses a manual wheelchair within the community. States that she has had 3 falls in the past 6 months as a result of her 'legs giving out.' Pt reports that she is typically ambulatory with all ADLs and is able to do some light cooking and cleaning. States that she was walking with a RW at rehab. ADL's Where Assessed: Chair;Edge of Bed;Supine, Bed Functional Transfer Assist: (mod assist x 2) Functional Transfer Deficits: Steadying;Setup;Increased Time to Complete; Supervision/Safety;Verbal Cueing Comment: Presents in chair reporting need to get back to bed. Stood from chair with mod assist x 2. Ambulated approx 3 ft to bed with mod assist x 2 and use of RW. Experienced notable LOB x 2, requiring significant assistance to recover. At one point, pt attempted to sit down on the bed when she was approx 1 ft away from edge and required max verbal and tactile cues to refrain from doing so. Completed sit to supine transfer with mod assist x 2. Demonstrated ability to bridge herself in bed to reposition. Left in bed with all needs within reach. Note: pt with significant LE edema with increased distal fluid collection after prolonged sitting in chair. Activity Tolerance Endurance: 2/5 Tolerates 10-20 Minutes Exercise w/Multiple Rests Sitting Balance: 3+/5 Sits w/o UE Support for 30 Seconds or Greater Assessment Assessment: Decreased ADL Status;Decreased Endurance;Decreased Self-Care Trans; Decreased High-Level ADLs Prognosis: Good;w/Cont OT s/p Acute Discharge Goal Formulation: Patient AM-PAC 6 Clicks Daily Activity Inpatient Putting on and taking off regular lower body clothes?: Total Bathing (Including washing, rinsing, drying): A Lot Toileting, which includes using toilet, bedpan, or urinal: Total Putting on and taking off regular upper body clothing: A Lot Taking care of personal grooming such as brushing teeth: A Little Eating meals?: None Daily Activity Raw Score: 13 Standardized (t-scale) score: 32.03 CMS 0-100% Score: 63.03 CMS G Code Modifier: CL Plan Progress: Slow Progress, Decreased Activity Tolerance OT Frequency: 5x/week OT Plan for Next Visit: Grooming in standing, toileting with BSC, progress functional transfers. ADL Goals Patient Will Perform Grooming: Standing at Sink;w/ Stand By Assist Patient Will Perform LE Dressing: w/ Moderate Assist Patient Will Perform Toileting: w/ Moderate Assist Functional Transfer Goals Pt Will Transfer To Bedside Commode: w/ Minimum Assist OT Discharge Recommendations OT Discharge Recommendations: Inpatient Setting Equipment Recommendations: Shower Chair, Caser Up, Sock José Luis, Long Handled Bath Sponge, Toilet Seat Riser(grab bars, hand held shower head) Therapist: JUSTINA Mccormack R/L [id number] Date: 06/27/2018 * Brian Guzman RN - 06/27/2018 9:14 AM CDT Inpatient Pain Management Nurses - [facility] - Follow -Up Primary team is responsible for entering orders. Suggested Plan for the Day: - short duration of time since pain regimen has been changed making it difficult to discern if any of the changes were helpful. However she does think possibly that her muscle spasms are happening less often. Noted she has received 2 doses of Tizanidine. - patient a little sleepy on rounds this AM, patient contributing it to being up since 529. Noted renal function with not much change last days. Of the new medications started potential culprit would be tizanidine. However most likely sleepiness related to recently given oxycodone. She does not take opioids to help manage her chronic pain. Consider changing dose to oxycodone 5 mg PO q 8 hours PRN pain. Anticipated D/C Planning: Developing new multimodal pain regimen. S: Patient's current pain intensity: not too bad Clinically Aligned Pain Assessment Comfort: Comfortably manageable Change in pain: Getting better Pain control: Partially effective Function: Sleep: Normal sleep O: Oral morphine equivalent (OME) used over past 24 hours (7:01 AM - 7:00 AM)- ~ 10 mg Current Analgesic Regimen, OME: Current Facility-Administered Medications: acetaminophen (TYLENOL) tablet 650 mg, 650 mg, Oral, Q6H PRN, Beck Chaidez MD, 650 mg at 06/26/18 1229 alteplase (CATHFLO ACTIVASE) injection 2 mg, 2 mg, Injection, PRN (Concession Attendant from Rx), Kelton Restrepo MD, 2 mg at 06/27/18 0427 amitriptyline (ELAVIL) tablet 25 mg, 25 mg, Oral, QHS, Timothy Guzman MD , 25 mg at 06/26/[address]uloxetine DR (CYMBALTA) capsule 30 mg, 30 mg, Oral, QDAY, Timothy Guzman MD, 30 mg at 06/27/18 0815 eltrombopag (PROMACTA) tab 100 mg [Patient's Own Medication], 100 mg, Oral, QDAY(), Beck Chaidez MD, 100 mg at 06/27/18 06 enoxaparin (LOVENOX) syringe 40 mg, 40 mg, Subcutaneous, QDAY(), Lupillo Coto MD, 40 mg at 06/26/182007 furosemide (LASIX) 500 mg in 50 mL IV drip syr (max conc), 10 mg/hr, Intravenous, Continuous, Bobby Hernandez MD, Last Rate: 1 mL/hr at 06/27/18 0815, 10 mg/hr at 06/27/18 0815 furosemide (LASIX) injection 80 mg, 80 mg, Intravenous, BID(9-17), Ed Escalante MD, 80 mg at 06/27/18 0815 insulin aspart U-100 (NOVOLOG FLEXPEN) injection PEN 0-6 Units, 0-6 Units, Subcutaneous, ACHS (22), Lupillo Coto MD insulin aspart U-100 (NOVOLOG FLEXPEN) injection PEN 8 Units, 8 Units, Subcutaneous, TID w/ meals, Lupillo Coto MD, 8 Units at 06/27/18 0815 insulin glargine (LANTUS SOLOSTAR, BASAGLAR) injection PEN 40 Units, 40 Units, Subcutaneous, QHS(22), Lupillo Coto MD, 40 Units at 06/26/182120 lactulose oral solution 20 g, 20 g, Oral, TID, Lupillo Coto MD, 20 g at 06/27/18 0609 metoprolol tartrate (LOPRESSOR) tablet 25 mg, 25 mg, Oral, BID, Bobby Hernandez MD, 25 mg at 06/27/18 0815 nystatin (NYSTOP) topical powder, , Topical, BID, Lupillo Coto MD oxyCODONE (ROXICODONE, OXY-IR) tablet 5-10 mg, 5-10 mg, Oral, Q6H PRN, Pablito Payne MD, 10 mg at 06/27/18 0842 piperacillin/tazobactam (ZOSYN) 3.375 g in sodium chloride 0.9% (NS) 100 mL IVPB (MB+), 3.375 g, Intravenous, Q6H*, Lupillo Coto MD, 3.375 g at 12/07 0603 rifAXIMin (XIFAXAN) tablet 550 mg, 550 mg, Oral, BID, Lupillo Coto MD , 550 mg at 06/27/18 0815 tiZANidine (ZANAFLEX) tablet 4 mg, 4 mg, Oral, Q8H PRN, Timothy Guzman MD , 4 mg at 06/27/18 0647 Please call with questions/concerns. 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 Recent DC from [facility] 06/15 to inpatient rehab facility. Admitted due to pneumonia, hypoxic respiratory failure, persistent metabolic acidosis. Mental / Cognitive Status: Alert;Oriented;Cooperative Persons Present: Student Pain: Patient complains of pain;During activity;09/27 Pain Location: Back Pain Interventions: Patient agrees to participate in therapy;Treatment altered to patient's pain tolerance Comments: Patient on 2L O2 via nasal cannula, Ambulation Assist: Independent Mobility in Community with Device(prior to this May used cane in community) Patient Owned Equipment: Single Point Cane;Roller Walker;Manual Wheelchair Home Situation: Lives with Family Type of Home: House Entry Stairs: 1-2 Stairs;Ramp In-Home Stairs: No Stairs Comments: Plans to return to previous rehab facility. BED MOBILITY/TRANSFERS: Bed Mobility/Transfers Bed Mobility: Supine to Sit: Standby Assist;Head of Bed Elevated;Verbal Cues; Use of Rail;Requires Extra Time Transfer Type: Sit to/from Stand(x 2 reps) Transfer: Assistance Level: To/From;Bed;Minimal Assist;x2 People Transfer: Assistive Device: Roller Walker Transfers: Type Of Assistance: Elevated Bed;Verbal Cues;For Safety Considerations;For Strength Deficit;For Balance Other Transfer Type: Sit to/from Stand Other Transfer: Assistance Level: To/From;Bed Side Chair;Moderate Assist;x2 People Other Transfer: Assistive Device: Roller Walker Other Transfer: Type Of Assistance: Verbal Cues;For Safety Considerations;For Strength Deficit;For Balance End Of Activity Status: Up in Chair;Nursing Notified;Instructed Patient to Request Assist with Mobility;Instructed Patient to Use Call Light BALANCE: Balance Sitting Balance: Standby Assist Standing Balance: Static Standing Balance;2 UE support;Minimal Assist;x2 People; Dynamic Standing Balance;Moderate Assist GAIT: Gait Gait Distance: 3 feet Gait: Assistance Level: Minimal Assist;x2 People Gait: Assistive Device: Roller Walker Gait: Descriptors: Pace: Slow;Decreased step length;No balance loss Comments: Patient demonstrates poor controll for lowering to sit in chair. Activity Limited By: Complaint of Pain;Complaint of Fatigue;Weakness ACTIVITY/EXERCISE: Activity / Exercise Sit Edge Of Bed: 5 minutes Sit Edge Of Bed Assist: Stand By Assist Stand At Bedside : 2 minutes(x 2 reps) Stand At Bedside Assist: Minimal Assist;Moderate Assist;x2 People Activity Tolerance: Tolerates 20+ Minutes of Activity Activity Limited By: Complaint of Fatigue;Complaint of Pain EDUCATION: Education Persons Educated: Patient Patient Barriers To Learning: None Noted Interventions: Repetition of Instructions Teaching Methods: Verbal Instruction Patient Response: Verbalized Understanding;More Instruction Required Topics: Plan/Goals of PT Interventions ASSESSMENT/PROGRESS: Assessment/Progress Impaired Mobility Due To: Pain;Decreased Activity Tolerance;Decreased Strength Comments: Pain continues to limit activity but improved from previous date. AM-PAC 6 Clicks Basic Mobility Inpatient Turning from your back to your side while in a flat bed without using bed rails : A Little Moving from lying on your back to sitting on the side of a flatbed without using bedrails : A Little Moving to and from a bed to a chair (including a wheelchair): A Lot Standing up from a chair using your arms (e.g. wheelchair, or bedside chair): A Lot To walk in hospital room: A Lot Climbing 3-5 steps with a railing: Total Raw Score: 13 Standardized (T-scale) Score: 33.99 Basic Mobility [facility] 0-100%: 57.65 [facility] G Code Modifier for Basic Mobility: CK GOALS: Goals Goal Formulation: With Patient Time For Goal Achievement: 7 days Patient Will Go Supine To/From Sit: w/ Minimal Assist Patient Will Transfer Sit to Stand: w/ Minimal Assist Patient Will Ambulate: 11-30 Feet, w/ Walker, w/ Minimal Assist Patient Will Sit Edge Of Bed: 6-10 Minutes, w/ Stand By Assist PLAN: Plan Treatment Interventions: Mobility Training;Strengthening;Endurance Training Plan Frequency: 5 Days per Week PT Plan for Next Visit: Pre-gait and ambulation as able. 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 Pt has been admitted to transferring hospital for ~1 week with pneumonia requiring intubation, ultimately weaned to 2L NC. Acidosis persists, despite bicarb gtt. Interval: -80mg IV lasix followed by lasix gtt 10mg/hr. Will potentially titrate to 15mg/ hr pending afternoon UOP response. -Stopping Zosyn as patient has completed 10 day course of abx. -Endocrinology consulted to evaluate patients abnormal stim test. Neuro MDD Insomnia Plan: > Resume MARINE ENGINE MECHANIC amitryptiline > Start Duloxetine Neuropathy - MARINE ENGINE MECHANIC was on gabapentin 300mg/600mg/600mg (TID dosing) Plan: > holding gabapentin with current MARIN > Duloxetine and amitriptyline as above > Pain nursing continuing to follow CV HTN - MARINE ENGINE MECHANIC was on lisinopril Plan: > Start metoprolol 25mg BID Volume Overload -Echo w/o systolic or diastolic dysfunction. Notable for mild/moderate mitral stenosis. -Patient with approximate 40lb weight gain Plan: -Cardiology consulted, no intervention regarding mitral stenosis. Rec starting lasix gtt -Start Lasix gtt 10mg/hr timed after morning 80mg IV bolus -Replace nichole -BID Mg, BMPs Pulm Acute on chronic Hypoxic / hypercarbic respiratory failure - 06/07 - 06/15: treated for CAP at [facility] - 06/15 - 06/18: inpatient rehab in [place] - 06-18 - 06/24: admitted to ICU for respiratory failure, treated for HCAP with zosyn, escalated to meropenem(unclear why the escalation). - Initially required intubation ~72h at OSH, now down to 2L NC. - ABG 7.34//76 on 2L NC on 06/24 - CXR on arrival with volume overloaded appearance. - Procal 0.17 - Echo w/o systolic or diastolic dysfunction. Notable for mild/moderate mitral stenosis. - DDx: Presume patients symptoms are most likley 2/2 volume overloaded state. Plan: > Diuresis as above > Stop Zosyn given 10 day course and minimal evidence of infection. 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 SVR achieved. Plan: > continue MARINE ENGINE MECHANIC rifaximin and lactulose > diuresis with lasix as above Renal MARIN - baseline Cr normal - MARINE ENGINE MECHANIC OSH Cr 2.06 - at OSH, appears she was diuresed and also subsequently given crystalloid and colloid. pt states she has gained weight and feels more edematous in LE and abdomen - [facility] Cr 1.72 now 1.95. Suspect this is due to renal congestion in volume overloaded state. Plan: > Diuresis as above > daily CMP, monitor UOP and I/Os daily [place] Metabolic Acidosis - OSH ABG 7.26/57/72/20. - [facility] AB.34// (on 2-3L NC) - initial bicarb 20, which likely represents a more significant acidosis as she is a chronic retainer. (Baseline around 30s) - O[facility]/NABIL vs MARIN vs diarrhea Plan: > diuresis as above, continue to monitor MARIN as above ID HCAP treatment at OSH - received zosyn, escalated to meropenem at OSH, completed additional 3 days of treatment for 10 day total course. Plan: > Stop further abx. > f/u cultures (sputum, blood, urine) Intertrigo Plan: > MARINE ENGINE MECHANIC nystatin Endo DM2 - MARINE ENGINE MECHANIC lantus 40, novolog 8u Plan: > continue lantus and MDCF Possible adrenal insufficiency Low cortisol - Coritsol 2.7 on random draw - Stim test: Baseline- 1.1, 30min 7.2, 60min 9.9 Plan > Inappropriate response, endocrinology consulted. Heme ITP -s/p splenectomy at age 6 and follows [facility] -Dr. Moran - platelet count wnl on admission, denies any recent bleeds Plan: > Cont MARINE ENGINE MECHANIC Promacta Leukocytosis - Patient with historical leukocytosis for past two years. No mention in heme/ onc notes. - Do not suspect this is secondary to infectious etiology. FEN: no IVF, electrolytes replaced prn, cardiac/diabetic diet LDA: double lumen PICC, Removing catheter today, no artificial airway PPx: lovenox Code status: full code Disposition: floor status Patient was seen and discussed with Dr. Darrion Hernandez MD Internal Medicine Resident, PGY-1 Pager: [phone] Subjective Patient did well overnight with no acute events. No complaints this AM. Feels a little more tired this morning likely owing to new medication starts. Overall though states her pain is better controlled and this makes her hopeful. ROS: 10 Point ROS completed, documented as positive per subjective history. Medications Scheduled Meds: amitriptyline (ELAVIL) tablet 25 mg 25 mg Oral QHS duloxetine DR (CYMBALTA) capsule 30 mg 30 mg Oral QDAY eltrombopag (PROMACTA) tab 100 mg [Patient's Own Medication] 100 mg Oral QDAY(06) enoxaparin (LOVENOX) syringe 40 mg 40 mg Subcutaneous QDAY(21) furosemide (LASIX) injection 80 mg 80 mg Intravenous BID(9-17) insulin aspart U-100 (NOVOLOG FLEXPEN) injection PEN 0-6 Units 0-6 Units Subcutaneous ACHS (22) insulin aspart U-100 (NOVOLOG FLEXPEN) injection PEN 8 Units 8 Units Subcutaneous TID w/ meals insulin glargine (LANTUS SOLOSTAR, BASAGLAR) injection PEN 40 Units 40 Units Subcutaneous QHS(22) lactulose oral solution 20 g 20 g Oral TID metoprolol tartrate (LOPRESSOR) tablet 25 mg 25 mg Oral BID nystatin (NYSTOP) topical powder Topical BID piperacillin/tazobactam (ZOSYN) 3.375 g in sodium chloride 0.9% (NS) 100 mL IVPB (MB+) 3.375 g Intravenous Q6H* rifAXIMin (XIFAXAN) tablet 550 mg 550 mg Oral BID Continuous Infusions: furosemide (LASIX) 500 mg in 50 mL IV drip syr (max conc) PRN and Respiratory Meds:acetaminophen Q6H PRN, alteplase PRN (Concession Attendant from Rx) , oxyCODONE Q6H PRN, tiZANidine Q8H PRN Objective Vital Signs: Last Filed Vital Signs: 24 Hour Range BP: 106/51 (06/28 399) Temp: 36.8 C (98.2 F) (06/28 399) Pulse: 68 (06/26 2117) Respirations: 20 PER MINUTE (06/26 2117) SpO2: 100 % (06/28 399) O2 Delivery: Nasal Cannula (06/26 1712) SpO2 Pulse: 65 (06/28 399) Height: 172.7 cm (68") (06/27 831) BP: (106-139)/(51-72) Temp: [36.5 C (97.7 F)-36.8 C (98.3 F)] Pulse: [68-77] Respirations: [20 PER MINUTE] SpO2: [95 %-100 %] O2 Delivery: Nasal Cannula Intensity Pain Scale (Self Report): 6 (06/26/181999) Vitals: 06/24/18 2145 06/26/18 0832 Weight: (!) 146 kg (321 lb 14 oz) (!) 145.6 kg (321 lb) Intake/Output Summary: (Last 24 hours) Intake/Output Summary (Last 24 hours) at 06/27/2018 0647 Last data filed at 06/27/2018 0600 Gross per 24 hour Intake 840 ml Output 1580 ml Net -740 ml Stool Occurrence: 1 Physical Exam: General: Patient in no acute distress, resting comfortably Head: Normocephalic, atraumatic Eyes: EOMI, conjunctiva clear, no scleral icterus Throat: no erythema noted Chest wall: No TTP or deformity noted Cardiac: Regular rate and rhythm, no rubs clicks or murmurs noted Pulmonary: Rales auscultated b/l. No significant wheezes noted. GI: Soft, non-distended. No tenderness to palpation. Bowel sounds active Ext: 2+ pedal edema, 1+ edema to mid wilkes b/l Derm: No bruises or skin rashes noted Psych: Appropriate mood and affect. Lab Review 24-hour labs: Results for orders placed or performed during the hospital encounter of (from the past 24 hour(s)) CORTISOL BASELINE Collection Time: 06/26/18 8:23 AM Result Value Ref Range Cortisol Baseline 1.1 ug/dL CORTISOL 30 MINUTES POST Collection Time: 06/26/18 9:34 AM Result Value Ref Range Cortisol 30 Min 7.2 ug/dL CORTISOL 60 MINUTES POST Collection Time: 06/26/18 10:10 AM Result Value Ref Range Cortisol 60 Min 9.9 ug/dL POC GLUCOSE Collection Time: 06/26/18 12:29 PM Result Value Ref Range Glucose, POC 169 (H) 70 - 100 MG/DL BASIC METABOLIC PANEL Collection Time: 06/26/18 2:30 PM Result Value Ref Range Sodium 140 137 - 147 MMOL/L Potassium 4.6 3.5 - 5.1 MMOL/L Chloride 109 98 - 110 MMOL/L CO2 23 21 - 30 MMOL/L Anion Gap 8 3 - 12 Glucose 198 (H) 70 - 100 MG/DL Blood Urea Nitrogen 51 (H) 7 - 25 MG/DL Creatinine 1.85 (H) 0.4 - 1.00 MG/DL Calcium 8.9 8.5 - 10.6 MG/DL eGFR Non 28 (L) >60 mL/min eGFR 34 (L) >60 mL/min POC GLUCOSE Collection Time: 06/26/18 5:19 PM Result Value Ref Range Glucose, POC 141 (H) 70 - 100 MG/DL POC GLUCOSE Collection Time: 06/26/18 9:20 PM Result Value Ref Range Glucose, POC 177 (H) 70 - 100 MG/DL CBC AND DIFF Collection Time: 06/27/18 4:07 AM Result Value Ref Range White Blood Cells 24.1 (H) 4.5 - 11.0 K/UL RBC 2.41 (L) 4.0 - 5.0 M/UL Hemoglobin 7.0 (L) 12.0 - 15.0 GM/DL Hematocrit 21.6 (L) 36 - 45 % MCV 89.6 80 - 100 FL MCH 28.9 26 - 34 PG MCHC 32.2 32.0 - 36.0 G/DL RDW 22.1 (H) 11 - 15 % Platelet Count 91 (L) 150 - 400 K/UL MPV 16.1 (H) 7 - 11 FL Neutrophils 58 41 - 77 % Lymphocytes 18 (L) 24 - 44 % Monocytes 17 (H) 4 - 12 % Eosinophils 6 (H) 0 - 5 % Basophils 1 0 - 2 % Absolute Neutrophil Count 14.20 (H) 1.8 - 7.0 K/UL Absolute Lymph Count 4.40 1.0 - 4.8 K/UL Absolute Monocyte Count 4.00 (H) 0 - 0.80 K/UL Absolute Eosinophil Count 1.40 (H) 0 - 0.45 K/UL Absolute Basophil Count 0.20 0 - 0.20 K/UL PROTIME INR (PT) Collection Time: 06/27/18 4:07 AM Result Value Ref Range INR 1.5 (H) 0.8 - 1.2 PTT (APTT) Collection Time: 06/27/18 4:07 AM Result Value Ref Range APTT 33.6 24.0 - 36.5 SEC COMPREHENSIVE METABOLIC PANEL Collection Time: 06/27/18 4:07 AM Result Value Ref Range Sodium 140 137 - 147 MMOL/L Potassium 4.8 3.5 - 5.1 MMOL/L Chloride 110 98 - 110 MMOL/L Glucose 121 (H) 70 - 100 MG/DL Blood Urea Nitrogen 53 (H) 7 - 25 MG/DL Creatinine 1.92 (H) 0.4 - 1.00 MG/DL Calcium 8.5 8.5 - 10.6 MG/DL Total Protein 5.5 (L) 6.0 - 8.0 G/DL Total Bilirubin 1.4 (H) 0.3 - 1.2 MG/DL Albumin 2.9 (L) 3.5 - 5.0 G/DL Alk Phosphatase 72 25 - 110 U/L AST (SGOT) 25 7 - 40 U/L CO2 24 21 - 30 MMOL/L ALT (SGPT) 13 7 - 56 U/L Anion Gap 6 3 - 12 eGFR Non 27 (L) >60 mL/min eGFR 33 (L) >60 mL/min MAGNESIUM Collection Time: 06/27/18 4:07 AM Result Value Ref Range Magnesium 2.0 1.6 - 2.6 mg/dL PHOSPHORUS Collection Time: 06/27/18 4:07 AM Result Value Ref Range Phosphorus 4.8 (H) 2.0 - 4.5 MG/DL POC GLUCOSE Collection Time: 06/27/18 6:09 AM Result Value Ref Range Glucose, POC 140 (H) 70 - 100 MG/DL Point of Care Testing (Last 24 hours) Radiology and other Diagnostics Review: Pertinent radiology reviewed. Bobby Hernandez MD Associated attestation - Melissa Maier MD - 06/27/2018 3:29 PM CDT ATTESTATION I personally performed the jarrell portions of the E/M visit, discussed case with the resident and concur with the documentation of history, physical exam, assessment, and treatment plan unless otherwise noted. The patient has been somewhat difficult to diurese. We will start Lasix drip per cardiology recommendations. Appreciate endocrinology evaluation, unlikely to need steroids unless evidence of hypotension. We will need to obtain her outside CT report to ensure no evidence of bilateral adrenal hemorrhage, which can occur with ITP. Discontinue antibiotics, as it appears that she has completed a 10 day course (including 7 days at outside hospital). She remains stable for the floor. Staff name: Melissa Maier MD Date: 06/27/2018 * Susanne Shah APRN-DAYCARE PROVIDER - 06/27/2018 6:25 AM CDT Heart Failure Consult NAME:Niecy Richey :1965 AGE: 52 y.o. ADMISSION DATE: 06/24/2018 DAYS ADMITTED: LOS: 3 days Active Problems: End stage liver disease (HCC) Metabolic acidosis Acidosis Consulted for: "Pt volume overloaded with resolving acute hypoxic resp failure , new Mitral stenosis noted on echo." 52 yo with PMHx of chronic respiratory failure on 2 L of O2 per NC with exertion , hypertension, ESLD 2/2 Hep C & MCGOWAN, and ITP s/p splenectomy who was transferred to [facility] from outside facility rehab on 06/24/18 for treatment of hypoxic respiratory failure and persistent metabolic acidosis. The patient had been admitted at [facility] from 06/07 to 06/15/18 for treatment of CAP with acute hypoxic respiratory failure and ESLD with hepatic encephalopathy. Once stable, she was discharged to [facility] inpatient rehab for ongoing PT/OT. Per patient and family, on 06/23 the patient began to retain fluid and gained 11# in one day. She developed SILVERMAN, weight gain, BLEE, abdominal distension, and lower extremity pain 2/2 bilateral swelling. An echocardiogram was done 06/26/18 revealing LVEF 70 %, moderate LA dilation, IVC >15, mild to moderate stenosis that appeared mildly more advanced than previous echo in 08/2017, and severe mitral annular calcification. Cardiology consulted to further evaluate patient. Recommendation Today: 1. Patient remains hypervolemic and likely requires 30-40 lbs of fluid removal. She received IV Lasix 80 mg last night and again this morning. Additionally, she was started on Lasix drip around 0815 this morning. 2. Recomend continuing lasix gtt 10 mg/ hr at this time. Creatinine remains elevated with baseline at 0.8-1.0. Anticipate improvement with diuresis however will closely monitor. 3. Primary team started patient on Lopressor 25 mg bid on 06/27/18 and discontinued after one dose. From cardiology standpoint, ok to continue beta- chelsie therapy as long as blood pressure permits, which will hopefully help increase diastolic filling time and may also help to lower portal pressures. 4. BMPs BID while on gtt. 5. No standing weight recorded for today - please obtain daily. 6. Will continue to follow. Ongoin. Need daily Standing weights and strict I/Os. 8. BMP twice a day. Magnesium level daily. Keep Potassium greater than 4.0 and Magnesium greater than 2.0. 9. 2000mg sodium dietary restriction. 10. Fluid Restriction:1.5 11. Goal output: net neg 2L/24 hour 12. Daily standing scale weight. Goal Dry Weight: needs established. 13. Follow up appointment with a member of the HF team or PCP within 7 calendar days of discharge. Patient seen and plan discussed with Dr. Buckner. GISELA Chong (pager [phone]) Telemetry: SR, rare PAC 70s EKG: SR - no sign of acute ischemia. Assessment: Acute on chronic hypoxic/hypercarbic respiratory failure 06/07 - 06/15: treated for CAP at [facility] 06/15 - 06/18: inpatient rehab in [place] 06-18 - 06/24: admitted to ICU for respiratory failure, treated for HCAP with zosyn , escalated to meropenem (unclear why the escalation). Required intubation ~72h at OSH, now down to 2L NC. ABG 7.34/38/76 on 2L NC on 06/24 CXR on arrival with volume overloaded appearance. Primary currently questioning FVOL vs HCAP vs Multi-factorial. Procalcitonin 0.17 on 06/24, was 0.09 in 06/08/18. Patient being treated with Zosyn, was previously on vancomycin. Persistent Leukocytosis WBC 27.0 on 06/26, improving. Patient is afebrile with stable BP and HR 70s. Acute diastolic HFpEF, EF: 70%. Likely NICM. Major Complications or Comorbidities ([facility]): acute respiratory failure NYHA functional class III (marked limitation of physical activity - comfortable at rest, but less than ordinary activity causes symptoms of HF e.g., getting dressed or standing from a sitting position), ACC Stage C (structural heart disease with prior or current symptoms of HF). She presents with signs of hypervolemia without signs of low flow state. Admission BNP: 967 Chest x ray 06/24/18: Findings consistent with CHF/volume overload including cardiomegaly, pulmonary vascular congestion and small to moderate left pleural effusion. Echocardiogram 06/26/18 revealed LVEF 70%, normal size and shape LV, concentric remodeling, unable to assess diastolic function. RV normal size and EF. LA moderately dilated. RA normal size. IVC >15. Calcified thickening of mitral leaflets. Mild to moderate stenosis which appears increased in comparison to previous echo in 08/2016. There is trace MR and severe mitral annular calcification. Mild TR. 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 She denies formal cardiac work up in the past - no stress test, LHC, etc. Intake/Output: 1.3 L of urine overnight, -410 mL in 24 hours, +45 mL total. Goal Dry Weight: Need to establish. May - June 2017 patient weighed 282#. Made to October 2017 patient weighed 271-274#. May 2018 patient weighed 283#. 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 06/27 lopressor 25 mg bid started per primary. ACEI/ARB/ARNI recently on lisinopril, however, d/c and started on BB/ Aldosterone Antagonist Hydralazine/Nitrate Ivabradine HRMT Anticoagulation for Afib/flutter Mild to moderate mitral valve stenosis Severe mitral annular calcification Echo 08/30/16 revealed severe mitral annular calcification without evidence of significant stenosis or regurgitation. Most recent echo 06/26/18: Calcific thickening of mitral leaflets. Mild to moderate stenosis. Mean gr 7 mm Hg @ HR 67 bpm. Trace regurgitation. There is severe mitral annular calcification. Mitral valve disease not felt to be a driving force behind patient's fluid retention or symptoms of heart failure at this time. 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 BP currently primarily 110-120s/50s MARIN Admission creatinine 1.72 Baseline creatinine 0.8-1.0, currently 1.92. DMII - insulin dependent, HgA1C 5.8. 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 Per GI/Hepatology note on 06/09/18 during previous hospitalization, patient recommended to get EGD done in outpatient setting as she was due for a screening. Hx of ITP s/p splenectomy Platelets 95. Patient denies recent bleeding issues. Chronic lower back and right hip pain Primary managing, pain management consulted. Questionable NABIL -no history of sleep study. 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 The patient had been admitted at [facility] from 06/07 to 06/15/18 for treatment of CAP with acute hypoxic respiratory failure and ESLD with hepatic encephalopathy. Once stable, she was discharged to [facility] inpatient rehab for ongoing PT/ OT. Per patient and family, on 06/23 the patient began to retain fluid and gained 11# in one day. She developed SILVERMAN, weight gain, BLEE, abdominal distension, and lower extremity pain 2/2 bilateral swelling. An echocardiogram was done 06/26/18 revealing LVEF 70%, moderate LA dilation, IVC >15, mild to moderate stenosis that appeared mildly more advanced than previous echo in 08/2017, and severe mitral annular calcification. Cardiology consulted to further evaluate patient. Patient reports improvement in heart failure symptoms with IV diuresis. She admits to decreased abdominal distention. She continues to struggle with lower extremity edema. Patient history of cardiac disease. Additionally she denies any known family history of cardiac disease. She denies smoking or illicit drug use. She reports very rare occasions of alcohol use. She currently denies chest pain, palpitations, SOA, PND, dizziness, light headedness, syncope, diaphoresis, N/V/D, chills, or fever. Review of Systems: A comprehensive review of systems was obtained and is negative aside from what is listed above in HPI. Past Medical History: Diagnosis Date Chronic respiratory failure with hypoxia, on home oxygen therapy (HCC) 2L NC w/ exertion DM (diabetes mellitus) (HCC) End stage liver disease (HCC) 06/10/2018 GERD (gastroesophageal reflux disease) History of hepatitis C 04/18/2017 tx w/ ribavirin and IFN HTN (hypertension) MCGOWAN (nonalcoholic steatohepatitis) 06/10/2018 Neuropathy S/P splenectomy 06/10/2018 Thrombocytopenia (HCC) Type 2 diabetes mellitus with complication (HCC) 08/21/2016 Past Surgical History: Procedure Laterality Date HX HYSTERECTOMY SPLENECTOMY No family history on file. Social History Socioeconomic History Marital status: Spouse name: Not on file Number of children: Not on file Years of education: Not on file Highest education level: Not on file Occupational History Not on file Tobacco Use Smoking status: Never Smoker Smokeless tobacco: Never Used Substance and Sexual Activity Alcohol use: No Drug use: No Sexual activity: Not on file Other Topics Concern Not on file Social History Narrative Not on file Objective: Allergies: Allergies Allergen Reactions Dilaudid [Hydromorphone] UNKNOWN Pt reports dilaudid caused her to code Metformin UNKNOWN Reglan [Metoclopramide] UNKNOWN Medications: Scheduled Meds: amitriptyline (ELAVIL) tablet 25 mg 25 mg Oral QHS duloxetine DR (CYMBALTA) capsule 30 mg 30 mg Oral QDAY eltrombopag (PROMACTA) tab 100 mg [Patient's Own Medication] 100 mg Oral QDAY(06) enoxaparin (LOVENOX) syringe 40 mg 40 mg Subcutaneous QDAY(21) furosemide (LASIX) injection 80 mg 80 mg Intravenous BID(9-17) insulin aspart U-100 (NOVOLOG FLEXPEN) injection PEN 0-6 Units 0-6 Units Subcutaneous ACHS (22) insulin aspart U-100 (NOVOLOG FLEXPEN) injection PEN 8 Units 8 Units Subcutaneous TID w/ meals insulin glargine (LANTUS SOLOSTAR, BASAGLAR) injection PEN 40 Units 40 Units Subcutaneous QHS(22) lactulose oral solution 20 g 20 g Oral TID metoprolol tartrate (LOPRESSOR) tablet 25 mg 25 mg Oral BID nystatin (NYSTOP) topical powder Topical BID piperacillin/tazobactam (ZOSYN) 3.375 g in sodium chloride 0.9% (NS) 100 mL IVPB (MB+) 3.375 g Intravenous Q6H* rifAXIMin (XIFAXAN) tablet 550 mg 550 mg Oral BID Continuous Infusions: furosemide (LASIX) 500 mg in 50 mL IV drip syr (max conc) PRN and Respiratory Meds:acetaminophen Q6H PRN, alteplase PRN (Concession Attendant from Rx) , oxyCODONE Q6H PRN, tiZANidine Q8H PRN Medications Prior to Admission Medication Sig Dispense Refill Last Dose acetaminophen (TYLENOL) 325 mg tablet Take 650 mg by mouth daily as needed for Pain. Max of 4,000 mg of acetaminophen in 24 hours. Past Week amitriptyline (ELAVIL) 25 mg tablet Take 25 mg by mouth at bedtime daily. 06/07/2018 bumetanide (BUMEX) 1 mg tablet Take 1 mg by mouth daily. 06/07/2018 eltrombopag (PROMACTA) 50 mg tablet Take two tablets daily on an empty stomach (at least 1 hour before or 2 hours after food). Separate antacids by at least 4 hours. 60 tablet 3 06/06/2018 fluoxetine (PROZAC) 20 mg capsule Take 20 mg by mouth daily. Past Week gabapentin (NEURONTIN) 300 mg capsule Take 1 capsule by mouth in the morning , two capsules in the afternoon and two capsules in the evening as needed. Past Week insulin glargine (LANTUS SOLOSTAR, BASAGLAR) 100 unit/mL (3 mL) injection PEN Inject forty Units under the skin at bedtime daily. Patient was taking 50 U BID prior to hospitalization. She is needing significantly less in the hospital off steroids and on diabetic diet. Indications: type 2 diabetes mellitus insulin lispro(+) (HUMALOG KWIKPEN INSULIN) 100 unit/mL injection PEN Inject eight Units to thirteen Units under the skin three times [...] give additional 5 units if BS >400 (Patient taking differently: Inject 18 Units under the skin three times daily [...] Please give additional 5 units if BS >400) 45 mL lactulose 10 gram/15 mL oral solution Take 20 g by mouth four times daily. Past Week lisinopril (PRINIVIL; ZESTRIL) 10 mg tablet Take 1 tablet by mouth daily. 90 tablet 3 06/07/2018 loratadine (CLARITIN) 10 mg tablet Take 10 mg by mouth every morning. nystatin (NYSTOP) 100,000 unit/g topical powder Apply under breast. 0 rifAXIMin (XIFAXAN) 550 mg tablet Take 1 Tab by mouth twice daily. Indications: HEPATIC ENCEPHALOPATHY 60 Tab 11 06/05/2018 Vital Signs: Last Filed Vital Signs: 24 Hour Range BP: 139/66 (06/27 1999) Temp: 36.6 C (97.9 F) (06/27 1999) Pulse: 68 (06/26 2117) Respirations: 20 PER MINUTE (06/26 2117) SpO2: 98 % (06/26 2117) O2 Delivery: Nasal Cannula (06/26 1712) SpO2 Pulse: 75 (06/27 1999) Height: 172.7 cm (5' 8") (06/27 831) BP: (116-139)/(58-72) Temp: [36.5 C (97.7 F)-36.8 C (98.3 F)] Pulse: [68-77] Respirations: [20 PER MINUTE] SpO2: [95 %-98 %] O2 Delivery: Nasal Cannula Intensity Pain Scale (Self Report): 6 (06/26/181999) Wt Readings from Last 10 Encounters: 06/26/18 (!) 145.6 kg (321 lb) 06/07/18 128.4 kg (283 lb 1.1 oz) 10/21/17 124.6 kg (274 lb 12.8 oz) 08/16/17 122.9 kg (271 lb) 08/05/17 123.3 kg (271 lb 12.8 oz) 07/06/17 127.9 kg (282 lb) 06/03/17 127.9 kg (282 lb) 06/03/17 127.9 kg (282 lb) 01/03/17 128.5 kg (283 lb 3.2 oz) 12/24/16 128.5 kg (283 lb 3.2 oz) Physical Exam: General Appearance: obese, appears stated age, no acute distress Neck Veins: Difficult to assess due to body habitus. Respiratory Effort: breathing comfortably, no respiratory distress Auscultation/Percussion: Mild bibasilar crackles Cardiac Rhythm: regular rhythm and normal rate Cardiac Auscultation: S1, S2 present but clear splitting not heard, no rub, no S3 gallop, no S4 gallop but exam is limited by her body habitus Murmurs: Grade 2/6 systolic murmur; no definite rumbling diastolic murmur heard with limitations as above Lower Extremity Edema: 4+ lower extremity edema Abdominal Exam: soft, non-tender, non-distended, normal bowel sounds Neurologic Exam: awake, alert, conversant, appropriate, neurological assessment grossly intact and moves all extremities Agree with exam except or in addition to as noted above. Laboratory Review: CBC w diff Lab Results Component Value Date/Time WBC 24.1 (H) 06/27/2018 04:07 AM RBC 2.41 (L) 06/27/2018 04:07 AM HGB 7.0 (L) 06/27/2018 04:07 AM HCT 21.6 (L) 06/27/2018 04:07 AM MCV 89.6 06/27/2018 04:07 AM MCH 28.9 06/27/2018 04:07 AM MCHC 32.2 06/27/2018 04:07 AM RDW 22.1 (H) 06/27/2018 04:07 AM PLTCT 91 (L) 06/27/2018 04:07 AM MPV 16.1 (H) 06/27/2018 04:07 AM Lab Results Component Value Date/Time NEUT 58 06/27/2018 04:07 AM ANC 14.20 (H) 06/27/2018 04:07 AM LYMA 18 (L) 06/27/2018 04:07 AM ALC 4.40 06/27/2018 04:07 AM SIMEON 17 (H) 06/27/2018 04:07 AM AMC 4.00 (H) 06/27/2018 04:07 AM EOSA 6 (H) 06/27/2018 04:07 AM AEC 1.40 (H) 06/27/2018 04:07 AM BASA 1 06/27/2018 04:07 AM ABC 0.20 06/27/2018 04:07 AM Chemistry Lab Results Component Value Date/Time NA 140 06/27/2018 04:07 AM K 4.8 06/27/2018 04:07 AM CL 110 06/27/2018 04:07 AM CO2 24 06/27/2018 04:07 AM GAP 6 06/27/2018 04:07 AM BUN 53 (H) 06/27/2018 04:07 AM CR 1.92 (H) 06/27/2018 04:07 AM GLU 121 (H) 06/27/2018 04:07 AM GLU 116 (H) 06/08/2018 04:03 PM Lab Results Component Value Date/Time CA 8.5 06/27/2018 04:07 AM PO4 4.8 (H) 06/27/2018 04:07 AM ALBUMIN 2.9 (L) 06/27/2018 04:07 AM TOTPROT 5.5 (L) 06/27/2018 04:07 AM ALKPHOS 72 06/27/2018 04:07 AM AST 25 06/27/2018 04:07 AM ALT 13 06/27/2018 04:07 AM TOTBILI 1.4 (H) 06/27/2018 04:07 AM GFR 27 (L) 06/27/2018 04:07 AM GFRAA 33 (L) 06/27/2018 04:07 AM Renal Function Lab Results Component Value Date/Time NA 140 06/27/2018 04:07 AM K 4.8 06/27/2018 04:07 AM CL 110 06/27/2018 04:07 AM CO2 24 06/27/2018 04:07 AM GAP 6 06/27/2018 04:07 AM BUN 53 (H) 06/27/2018 04:07 AM BUN 51 (H) 06/26/2018 02:30 PM BUN 52 (H) 06/26/2018 03:41 AM Lab Results Component Value Date/Time CR 1.92 (H) 06/27/2018 04:07 AM CR 1.85 (H) 06/26/2018 02:30 PM CR 1.95 (H) 06/26/2018 03:41 AM GLU 121 (H) 06/27/2018 04:07 AM GLU 116 (H) 06/08/2018 04:03 PM CA 8.5 06/27/2018 04:07 AM PO4 4.8 (H) 06/27/2018 04:07 AM ALBUMIN 2.9 (L) 06/27/2018 04:07 AM Lipid Profile INR Lab Results Component Value Date CHOL 126 06/08/2018 TRIG 89 06/08/2018 HDL 15 (L) 06/08/2018 LDL 70 06/08/2018 VLDL 18 06/08/2018 NONHDLCHOL 111 06/08/2018 Lab Results Component Value Date INR 1.5 (H) 06/27/2018 Echocardiogram Details: Echo Results (Last 3 results in the past 3 years) Echo EF LVIDD LA Size IVS LVPW Rest PAP (06/26/18) 70 (06/26/18) 4.55 (06/26/18) 5.24 (06/26/18) 1.10 (06/26/18) 1.02 (06/26/18) 62 (08/30/16) 70 (08/30/16) 4.9 (08/30/16) 4.3 (08/30/16) 1.4 (08/30/16) 1.0 (08/20/16) 35 (08/20/16) 60 (08/20/16) 4.9 (08/20/16) 5.1 (08/20/16) 1.2 (08/20/16) 1.2 * Amber Marquez, PT - 06/26/2018 10:29 AM CDT PHYSICAL THERAPY PROGRESS NOTE MOBILITY: Mobility Progressive Mobility Level: Stand Level of Assistance: Assist X2 Assistive Device: Walker Time Tolerated: 11-30 minutes Activity Limited By: Pain;Weakness SUBJECTIVE: Subjective Significant hospital events: PMH: chronic respiratory failure on exertional 2L O2, DM2, 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 Recent DC from [facility] 06/15 to inpatient rehab facility. Admitted due to pneumonia, hypoxic respiratory failure, persistent metabolic acidosis. Mental / Cognitive Status: Alert;Oriented;Cooperative Persons Present: Nursing Staff Pain: Patient complains of pain;Patient does not rate pain Pain Location: Back Pain Interventions: Patient agrees to participate in therapy;Treatment altered to patient's pain tolerance Comments: Patient on 2L O2 via nasal cannula. Ambulation Assist: Independent Mobility in Community with Device(prior to this May used cane in community) Patient Owned Equipment: Single Point Cane;Roller Walker;Manual Wheelchair Home Situation: Lives with Family Type of Home: House Entry Stairs: 1-2 Stairs;Ramp In-Home Stairs: No Stairs BED MOBILITY/TRANSFERS: Bed Mobility/Transfers Comments: Patient up in chair at start of session. Transfer Type: Sit to/from Stand(x 2 reps) Transfer: Assistance Level: To/From;Bed Side Chair;Moderate Assist;x2 People Transfer: Assistive Device: Hand Hold Assist;Roller Walker Transfers: Type Of Assistance: Verbal Cues;For Safety Considerations;For Balance ;For Strength Deficit End Of Activity Status: Up in Chair;Nursing Notified;Instructed Patient to Request Assist with Mobility;Instructed Patient to Use Call Light BALANCE: Balance Standing Balance: Static Standing Balance;Minimal Assist;x2 People ACTIVITY/EXERCISE: Activity / Exercise Stand At Bedside : 2 minutes Stand At Bedside Assist: Minimal Assist Activity Tolerance: Tolerates less than 10 minutes w/ No Changes in Vitals Activity Limited By: Complaint of Pain EDUCATION: Education Persons Educated: Patient Patient Barriers To Learning: None Noted Interventions: Repetition of Instructions Teaching Methods: Verbal Instruction Patient Response: Verbalized Understanding;More Instruction Required Topics: Plan/Goals of PT Interventions ASSESSMENT/PROGRESS: Assessment/Progress Impaired Mobility Due To: Pain;Decreased Activity Tolerance;Decreased Strength Comments: Pain limiting activity this date. AM-PAC 6 Clicks Basic Mobility Inpatient Turning from your back to your side while in a flat bed without using bed rails : A lot Moving from lying on your back to sitting on the side of a flatbed without using bedrails : A Lot Moving to and from a bed to a chair (including a wheelchair): Total Standing up from a chair using your arms (e.g. wheelchair, or bedside chair): Total To walk in hospital room: Total Climbing 3-5 steps with a railing: Total Raw Score: 8 Standardized (T-scale) Score: 22.61 Basic Mobility CMS 0-100%: 85.35 CMS G Code Modifier for Basic Mobility: CM GOALS: Goals Goal Formulation: With Patient Time For Goal Achievement: 7 days Patient Will Go Supine To/From Sit: w/ Minimal Assist Patient Will Transfer Sit to Stand: w/ Minimal Assist Patient Will Ambulate: 11-30 Feet, w/ Walker, w/ Minimal Assist Patient Will Sit Edge Of Bed: 6-10 Minutes, w/ Stand By Assist PLAN: Plan Treatment Interventions: Mobility Training;Strengthening;Endurance Training Plan Frequency: 5 Days per Week PT Plan for Next Visit: Standing, pre-gait. RECOMMENDATIONS: PT Discharge Recommendations PT Discharge Recommendations: Inpatient Setting Therapist: Amber Marquez PT, DPT Date: 06/26/2018 * Sarah Ramires RN - 06/26/2018 9:21 AM CDT 0730 Report received and care assumed at this time. Bedside safety check complete with all source analyst RN. Patient alert, oriented x 4 complaining of back pain unrelieved by PRN flexeril. VSS on tele. ICU assessment complete, please see doc flow. No concerns at this time. Will continue to monitor closely. 1115 MICU team paged d/t patient complaining of unrelieved back pain + spasms. Pt states that oxycodone, flexeril, lidocaine patches do not help. Pt states she's never found a solution that does help. Heating pad ordered. Physicial therapy refused at this time with plans to try again this afternoon. Pt able to stand x 2 assist with gait belt and walker. Unable to tolerate standing. 1200 No response from MICU, repaged. 1215 Received call back from MICU resident to notify of pt's ongoing pain.Order placed for pain management RN to assist with pain management. * Melba Bonner, OT - 06/26/2018 9:04 AM CDT OCCUPATIONAL THERAPY ASSESSMENT NOTE Patient Name: Niecy Milan [place] Room/Bed: [place] [address] Admitting Diagnosis: Renal failure/Metabolic acidosis Mobility Progressive Mobility Level: Active transfer to chair Level of Assistance: Assist X2 Assistive Device: Hand Held Time Tolerated: 11-30 minutes Activity Limited By: Pain;Weakness;Fatigue;Lethargy;Nausea Subjective Pertinent Dx per Physician: 52yo F hx of recurrent hospitalizations, chronic respiratory failure on exertional 2L O2, DM2, ESLD 2/2 HCV & MCGOWAN, GERD, HTN, ITP s/p splenectomy transferred to [facility] from [facility] for further treatment of hypoxic respiratory failure, persistent metabolic acidosis. Pt has been admitted to transferring hospital for ~1 week with pneumonia requiring intubation, ultimately weaned to 2L NC. Precautions: O2 Requirement(2L NC) Pain / Complaints: Patient agrees to participate in therapy;Patient demonstrates nonverbal signs of pain Pain Location: Back Pain Level Current: 9 Comments: Reports decreased back pain seated in chair. Objective Psychosocial Status: Willing and Cooperative to Participate Home Living Type of Home: House Home Layout: One Level;Ramped Entrance;Able to Live on Main Level w/Bedrm/ Bathrm Access Bathroom Shower / Tub: Walk-in Shower Bathroom Toilet: Standard Home Equipment: Walker;Cane;Wheelchair-manual Prior Function Level Of Struthers: Independent with ADLs and functional transfers;Needed assistance with homemaking Lives With: Spouse;Son(DIL, infant grandchild.) Receives Help From: Family(All family members work during the day.) Other Function Comments: Pt transferred to [facility] from an outside subacute rehab within a hospital. Was ambulating with a SPC prior to recent hospital admissions. Uses a manual wheelchair within the community. States that she has had 3 falls in the past 6 months as a result of her 'legs giving out.' Pt reports that she is typically ambulatory with all ADLs and is able to do some light cooking and cleaning. States that she was walking with a RW at rehab. ADL's Where Assessed: Edge of Bed;Chair;Supine, Bed Grooming Assist: Stand By Assist Grooming Deficits: Setup;Wash/Dry Face LE Dressing Assist: Total Assist LE Dressing Deficits: Don/Doff R Sock;Don/Doff L Sock Functional Transfer Assist: Minimal Assist(-min assist x 2.) Functional Transfer Deficits: Steadying;Setup;Increased Time to Complete; Supervision/Safety;Verbal Cueing Comment: Required total assist to don socks while lying supine in bed. Transferred supine to sitting at EOB with min assist to elevate trunk. Stood from EOB and completed stand and step transfer to chair on L side with min assist x 2. Participated in face hygiene while seated in chair with SBA for set up. Left in chair with alarm activated and all needs within reach. Activity Tolerance Endurance: 2/5 Tolerates 10-20 Minutes Exercise w/Multiple Rests Sitting Balance: 3+/5 Sits w/o UE Support for 30 Seconds or Greater Cognition Expression: Increased Time for Expression Social Interaction: Interacts in a Spontaneous,Cooperative Manner;Increased Time to Adjust Problem Solving: Direction Following Assist Orientation: Alert & Oriented x4;To Person;To Place;To Time;To Situation Attention: Somnolent UE AROM Overall BUE AROM WNL: Yes Coordination: Adequate to Complete ADLs Grasp: Bilateral Grasp Functional for Activity Education Persons Educated: Patient Barriers To Learning: Pain(fatigue) Interventions: Repetition of Instructions Teaching Methods: Verbal Instruction;Demonstration Patient Response: Verbalized and Demo Understanding Topics: Role of OT, Goals for Therapy Goal Formulation: With Patient Assessment Assessment: Decreased ADL Status;Decreased Endurance;Decreased Self-Care Trans; Decreased High-Level ADLs Prognosis: Good;w/Cont OT s/p Acute Discharge Goal Formulation: Patient AM-PAC 6 Clicks Daily Activity Inpatient Putting on and taking off regular lower body clothes?: Total Bathing (Including washing, rinsing, drying): A Lot Toileting, which includes using toilet, bedpan, or urinal: Total Putting on and taking off regular upper body clothing: A Lot Taking care of personal grooming such as brushing teeth: A Little Eating meals?: None Daily Activity Raw Score: 13 Standardized (t-scale) score: 32.03 CMS 0-100% Score: 63.03 CMS G Code Modifier: CL Plan OT Frequency: 5x/week OT Plan for Next Visit: Grooming in standing, toileting with BSC, progress functional transfers. ADL Goals Patient Will Perform Grooming: Standing at Sink;w/ Stand By Assist Patient Will Perform LE Dressing: w/ Moderate Assist Patient Will Perform Toileting: w/ Moderate Assist Functional Transfer Goals Pt Will Transfer To Bedside Commode: w/ Minimum Assist OT Discharge Recommendations OT Discharge Recommendations: Inpatient Setting Equipment Recommendations: Shower Chair, Caser Up, Sock José Luis, Long Handled Bath Sponge, Toilet Seat Riser(grab bars, hand held shower head) Therapist: JUSTINA Mccormack R/L [id number] Date: 06/26/2018 * Bobby Hernandez MD - 06/26/2018 7:51 AM CDT General Progress Note Name: Niecy Richey Today's Date: 06/26/2018 Admission Date: 06/24/2018 LOS: 2 days Assessment/Plan: Active Problems: End stage liver disease (HCC) Metabolic acidosis Acidosis 52yo F hx of recurrent hospitalizations, chronic respiratory failure on exertional 2L O2, DM2, 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 Pt has been admitted to transferring hospital for ~1 week with pneumonia requiring intubation, ultimately weaned to 2L NC. Acidosis persists, despite bicarb gtt. Interval: -Inadequate diuresis with 40mg IV lasix, will increase to 80mg BID. Repeat BMP this afternoon. -Peripheral smear ordered to evaluate for persistent leukocytosis. -Discontinuing Vancomycin given no MRSA growth. -Removing Nichole Neuro MDD Insomnia Plan: > continue MARINE ENGINE MECHANIC prozac > holding MARINE ENGINE MECHANIC amitriptyline Neuropathy - MARINE ENGINE MECHANIC was on gabapentin 300mg/600mg/600mg (TID dosing) Plan: > holding gabapentin with current MARIN CV HTN - MARINE ENGINE MECHANIC was on lisinopril, changed at OSH to metoprolol 100mg Plan: > monitor BPs, continue to hold metoprolol > pending echo given elevated BNP, hypoxic respiratory failure as below. Pulm Acute on chronic Hypoxic / hypercarbic respiratory failure - 06/07 - 06/15: treated for CAP at [facility] - 06/15 - 06/18: inpatient rehab in [place] - 06-18 - 06/24: admitted to ICU for respiratory failure, treated for HCAP with zosyn, escalated to meropenem(unclear why the escalation). - Initially required intubation ~72h at OSH, now down to 2L NC. - ABG 7.34/38/76 on 2L NC on 06/24 - CXR on arrival with volume overloaded appearance. - Procal 0.17 - DDx: Volume overload vs HCAP vs Multi-factorial. Plan: > Increase lasix to 80mg BID given inadequate response to 40mg. target net 1L negative diuresis > Continue Zosyn for possible HCAP in setting of mildly elevated Pro-Mookie. > Echo to be completed today. 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 SVR achieved. Plan: > continue MARINE ENGINE MECH[employer]IC rifaximin and lactulose > diuresis with lasix as above Renal MARIN - baseline Cr normal - MARINE ENGINE MECHANIC OSH Cr 2.06 - at OSH, appears she was diuresed and also subsequently given crystalloid and colloid. pt states she has gained weight and feels more edematous in LE and abdomen - [facility] Cr 1.72 now 1.95. Suspect this is secondary to vancomycin toxicity less likely related to Hepatic decompensation. Will continue to monitor. Plan: > continue diuresis with 80mg IV lasix BID > daily CMP, monitor UOP and I/Os daily Nongap Metabolic Acidosis - OSH ABG 7.26/57/72/20. - [facility] AB.34/38/76 (on 2-3L NC) - initial bicarb 20, which likely represents a more significant acidosis as she is a chronic retainer. (Baseline around 30s) - OHS/NABIL vs MARIN vs diarrhea Plan: > diuresis as above, continue to monitor MARIN as above ID HCAP treatment at OSH - received zosyn, escalated to meropenem at OSH Plan: > Continue Zosyn, stop vancomycin. > f/u cultures (sputum, blood, urine) Intertrigo Plan: > MARINE ENGINE MECHANIC nystatin Endo DM2 - MARINE ENGINE MECHANIC lantus 40, novolog 8u Plan: > continue lantus and MDCF Possible adrenal insufficiency Low cortisol - Coritsol 2.7 on random draw Plan > Cosyntropin stim test at 0800 on 06/26 Heme ITP -s/p splenectomy at age 6 and follows [facility] -Dr. Moran - platelet count wnl on admission, denies any recent bleeds Plan: > Cont MARINE ENGINE MECHANIC Promacta Leukocytosis - Patient with historical leukocytosis for past two years. No mention in heme/ onc notes. - Do not suspect this is secondary to infectious etiology. Plan: > Will evaluate with peripheral smear. FEN: no IVF, electrolytes replaced prn, cardiac/diabetic diet LDA: double lumen PICC, Removing catheter today, no artificial airway PPx: lovenox Code status: full code Disposition: floor status Patient was seen and discussed with Dr. Darrion Hernandez MD Internal Medicine Resident, PGY-1 Pager: [phone] Subjective Patient did well overnight with no acute events. No complaints this AM. Feels she did not urinate very much over the last 24 hours. Notes continued good appetite. Denies any Chest pain, Nausea, vomiting or diarrhea. ROS: 10 Point ROS completed, documented as positive per subjective history. Medications Scheduled Meds: cosyntropin (CORTROSYN) injection 0.25 mg 0.25 mg Intravenous ONCE eltrombopag (PROMACTA) tab 100 mg [Patient's Own Medication] 100 mg Oral QDAY() enoxaparin (LOVENOX) syringe 40 mg 40 mg Subcutaneous QDAY() furosemide (LASIX) injection 40 mg 40 mg Intravenous BID(-17) insulin aspart U-100 (NOVOLOG FLEXPEN) injection PEN 0-6 Units 0-6 Units Subcutaneous ACHS (22) insulin aspart U-100 (NOVOLOG FLEXPEN) injection PEN 8 Units 8 Units Subcutaneous TID w/ meals insulin glargine (LANTUS SOLOSTAR, BASAGLAR) injection PEN 40 Units 40 Units Subcutaneous QHS(22) lactulose oral solution 20 g 20 g Oral TID nystatin (NYSTOP) topical powder Topical BID piperacillin/tazobactam (ZOSYN) 3.375 g in sodium chloride 0.9% (NS) 100 mL IVPB (MB+) 3.375 g Intravenous Q6H* rifAXIMin (XIFAXAN) tablet 550 mg 550 mg Oral BID vancomycin (VANCOCIN) 2,000 mg in sodium chloride 0.9% (NS) IVPB 2,000 mg Intravenous Q24H* Continuous Infusions: PRN and Respiratory Meds:acetaminophen Q6H PRN, cyclobenzaprine TID PRN, oxyCODONE Q6H PRN, [COMPLETED] vancomycin IVPB ONCE AND vancomycin, pharmacy to manage Per Pharmacy Objective Vital Signs: Last Filed Vital Signs: 24 Hour Range BP: 116/58 (06/26 0400) Temp: 36.8 C (98.3 F) (06/26 0400) Pulse: 72 (06/25 1200) Respirations: 22 PER MINUTE (06/26 1199) SpO2: 92 % (06/26 2155) O2 Delivery: CPAP/BiPAP (Pt Owned) (06/25 2199) SpO2 Pulse: 74 (06/26 1999) BP: (109-133)/(42-64) Temp: [36.8 C (98.2 F)-36.8 C (98.3 F)] Pulse: [68-78] Respirations: [19 PER MINUTE-25 PER MINUTE] SpO2: [92 %-96 %] O2 Delivery: CPAP/BiPAP (Pt Owned) Intensity Pain Scale (Self Report): 8 (06/25/181999) Vitals: 06/24/18 2145 Weight: (!) 146 kg (321 lb 14 oz) Intake/Output Summary: (Last 24 hours) Intake/Output Summary (Last 24 hours) at 06/26/2018 0752 Last data filed at 06/26/2018 0600 Gross per 24 hour Intake 960 ml Output 1370 ml Net -410 ml Stool Occurrence: 1 Physical Exam: General: Patient in no acute distress, resting comfortably Head: Normocephalic, atraumatic Eyes: EOMI, conjunctiva clear, no scleral icterus Throat: no erythema noted Chest wall: No TTP or deformity noted Cardiac: Regular rate and rhythm, no rubs clicks or murmurs noted Pulmonary: Rales auscultated b/l. No significant wheezes noted. GI: Soft, non-distended. No tenderness to palpation. Bowel sounds active Ext: 2+ pedal edema, 1+ edema to mid wilkes b/l Derm: No bruises or skin rashes noted Psych: Appropriate mood and affect. Lab Review 24-hour labs: Results for orders placed or performed during the hospital encounter of (from the past 24 hour(s)) POC GLUCOSE Collection Time: 06/25/18 11:20 AM Result Value Ref Range Glucose, POC 172 (H) 70 - 100 MG/DL ETHYLENE GLYCOL Collection Time: 06/25/18 11:22 AM Result Value Ref Range Ethylene Glycol <5 MG/DL LACTIC ACID (BG - RAPID LACTATE) Collection Time: 06/25/18 11:22 AM Result Value Ref Range Lactic Acid,BG 1.4 0.5 - 2.0 MMOL/L POC GLUCOSE Collection Time: 06/25/18 4:52 PM Result Value Ref Range Glucose, POC 143 (H) 70 - 100 MG/DL POC GLUCOSE Collection Time: 06/25/18 9:24 PM Result Value Ref Range Glucose, POC 187 (H) 70 - 100 MG/DL CBC AND DIFF Collection Time: 06/26/18 3:41 AM Result Value Ref Range White Blood Cells 27.0 (H) 4.5 - 11.0 K/UL RBC 2.62 (L) 4.0 - 5.0 M/UL Hemoglobin 7.5 (L) 12.0 - 15.0 GM/DL Hematocrit 23.6 (L) 36 - 45 % MCV 90.0 80 - 100 FL MCH 28.7 26 - 34 PG MCHC 31.9 (L) 32.0 - 36.0 G/DL RDW 22.1 (H) 11 - 15 % Platelet Count 95 (L) 150 - 400 K/UL MPV 13.1 (H) 7 - 11 FL Neutrophils 60 41 - 77 % Lymphocytes 17 (L) 24 - 44 % Monocytes 17 (H) 4 - 12 % Eosinophils 5 0 - 5 % Basophils 1 0 - 2 % Absolute Neutrophil Count 16.50 (H) 1.8 - 7.0 K/UL Absolute Lymph Count 4.50 1.0 - 4.8 K/UL Absolute Monocyte Count 4.50 (H) 0 - 0.80 K/UL Absolute Eosinophil Count 1.40 (H) 0 - 0.45 K/UL Absolute Basophil Count 0.20 0 - 0.20 K/UL PROTIME INR (PT) Collection Time: 06/26/18 3:41 AM Result Value Ref Range INR 1.5 (H) 0.8 - 1.2 PTT (APTT) Collection Time: 06/26/18 3:41 AM Result Value Ref Range APTT 29.1 24.0 - 36.5 SEC COMPREHENSIVE METABOLIC PANEL Collection Time: 06/26/18 3:41 AM Result Value Ref Range Sodium 139 137 - 147 MMOL/L Potassium 4.6 3.5 - 5.1 MMOL/L Chloride 110 98 - 110 MMOL/L Glucose 168 (H) 70 - 100 MG/DL Blood Urea Nitrogen 52 (H) 7 - 25 MG/DL Creatinine 1.95 (H) 0.4 - 1.00 MG/DL Calcium 8.5 8.5 - 10.6 MG/DL Total Protein 5.7 (L) 6.0 - 8.0 G/DL Total Bilirubin 1.5 (H) 0.3 - 1.2 MG/DL Albumin 3.1 (L) 3.5 - 5.0 G/DL Alk Phosphatase 82 25 - 110 U/L AST (SGOT) 25 7 - 40 U/L CO2 23 21 - 30 MMOL/L ALT (SGPT) 15 7 - 56 U/L Anion Gap 6 3 - 12 eGFR Non 27 (L) >60 mL/min eGFR 32 (L) >60 mL/min MAGNESIUM Collection Time: 06/26/18 3:41 AM Result Value Ref Range Magnesium 2.2 1.6 - 2.6 mg/dL PHOSPHORUS Collection Time: 06/26/18 3:41 AM Result Value Ref Range Phosphorus 4.4 2.0 - 4.5 MG/DL POC GLUCOSE Collection Time: 06/26/18 6:12 AM Result Value Ref Range Glucose, POC 166 (H) 70 - 100 MG/DL Point of Care Testing (Last 24 hours) Radiology and other Diagnostics Review: Pertinent radiology reviewed. Bobby Hernandez MD Pager [phone] Associated attestation - Melissa Maier MD - 06/26/2018 5:08 PM CDT ATTESTATION I personally performed the jarrell portions of the E/M visit, discussed case with the resident and concur with the documentation of history, physical exam, assessment, and treatment plan unless otherwise noted. Increasing Lasix for more robust diuresis goal. Start home metoprolol. Continue autotitrating CPAP. Discontinue vancomycin with negative cultures thus far. She is stable for the floor. Staff name: Melissa Maier MD Date: 06/26/2018 * Faye Lanier RN - 06/25/2018 8:14 PM CDT ~1930: Assumed care of patient. Bedside safety check completed with day shift RN. Lines and alarms verified. Fall bundle in place. ~1999: Assessment completed and documented per ICU flowsheet. Patient VSS per patient trend. Orders reviewed and implemented. Bed locked low. Call light in reach. Will continue to monitor and assess. * Alda Clemons, PT - 06/25/2018 2:43 PM CDT PHYSICAL THERAPY ASSESSMENT MOBILITY: Mobility Progressive Mobility Level: Sit on edge of bed Level of Assistance: Assist X2 Time Tolerated: 11-30 minutes SUBJECTIVE: Subjective Significant hospital events: PMH: chronic respiratory failure on exertional 2L O2, DM2, 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 Recent DC from [facility] 06/15 to inpatient rehab facility. Admitted due to pneumonia, hypoxic respiratory failure, persistent metabolic acidosis. Mental / Cognitive Status: Alert;Oriented;Cooperative Persons Present: Spouse Pain: Patient complains of pain;Patient does not rate pain Pain Location: Back(chronic) Pain Interventions: Patient agrees to participate in therapy with modifications to session;Treatment altered to patient's pain tolerance Comments: Patient and spouse hopeful to return to rehab facility after acute stay. Comments: 3 L O2 with O2 saturations in mid 90s at rest, decreased to 89% with activity at edge of bed Ambulation Assist: Independent Mobility in Community with Device (prior to this May used cane in community) Patient Owned Equipment: Single Point Cane;Roller Walker;Manual Wheelchair Home Situation: Lives with Family Type of Home: House Entry Stairs: 1-2 Stairs;Ramp In-Home Stairs: No Stairs ROM: ROM ROM Comments: LE ROM limited by body habitus and edema STRENGTH: Strength Overall Strength: Generalized Weakness Strength Comment: limited activity tolerance for strength testing due to back pain POSTURE/NEURO: Posture / Neurological LLE Sensation/Proprioception: Impaired Light Touch RLE Sensation/Proprioception: Impaired Light Touch BED MOBILITY/TRANSFERS: Bed Mobility/Transfers Bed Mobility: Rolling: Moderate Assist;Use of Rail Bed Mobility: Supine to Sit: Moderate Assist;Assist with B LE;Assist with Trunk Bed Mobility: Sit to Supine: Moderate Assist;Assist with B LE;Assist with Trunk End Of Activity Status: In Bed BALANCE: Balance Sitting Balance: Static Sitting Balance;2 UE Support;Standby Assist Comments: tolerates sitting less than 2 minutes due to back pain EDUCATION: Education Persons Educated: Patient/Family Patient Barriers To Learning: None Noted Teaching Methods: Verbal Instruction Patient Response: Verbalized Understanding Topics: Plan/Goals of PT Interventions ASSESSMENT/PROGRESS: Assessment/Progress Impaired Mobility Due To: Decreased Strength;Pain;Decreased Activity Tolerance Assessment/Progress: Expect Slow Progress;Should Improve w/ Continued PT Comments: Back pain limiting mobility progression today. AM-PAC 6 Clicks Basic Mobility Inpatient Turning from your back to your side while in a flat bed without using bed rails : A lot Moving from lying on your back to sitting on the side of a flatbed without using bedrails : A Lot Moving to and from a bed to a chair (including a wheelchair): Total Standing up from a chair using your arms (e.g. wheelchair, or bedside chair): Total To walk in hospital room: Total Climbing 3-5 steps with a railing: Total Raw Score: 8 Standardized (T-scale) Score: 22.61 Basic Mobility CMS 0-100%: 85.35 CMS G Code Modifier for Basic Mobility: CM GOALS: Goals Goal Formulation: With Patient Time For Goal Achievement: 7 days Patient Will Go Supine To/From Sit: w/ Minimal Assist Patient Will Transfer Sit to Stand: w/ Minimal Assist Patient Will Ambulate: 11-30 Feet, w/ Walker, w/ Minimal Assist Patient Will Sit Edge Of Bed: 6-10 Minutes, w/ Stand By Assist PLAN: Plan Treatment Interventions: Mobility Training;Strengthening;Endurance Training Plan Frequency: 5 Days per Week PT Plan for Next Visit: bed mobility, sitting balance and endurance, LE exercises RECOMMENDATIONS: PT Discharge Recommendations PT Discharge Recommendations: Inpatient Setting Therapist: Alda Clemons, PT Date: 06/25/2018 * Donna Lemus - 06/25/2018 10:37 AM CDT Pharmacy Note: Patients Own Med The following medications have been identified by pharmacy and placed in the locked medication box for storage: Pharmacy: [email or web address] Prescriber: Dr. Lesli Baron Rx #: [id number] Drug: Promacta (Entromopag Olamine) 50 mg tablet Mfr: Novartis Lot:[id number] Exp: 05/2021 Bottle Count: 2 The patient may use their own supply of these medications during this admission. All doses should be administered and documented per hospital policy. Donna Lemus Inpatient Clinical Creamery Worker 06/25/18 * Beck Chaidez MD - 06/25/2018 7:47 AM CDT General Progress Note Name: Niecy Richey Today's Date: 06/25/2018 Admission Date: 06/24/2018 LOS: 1 day Assessment/Plan: Active Problems: End stage liver disease (HCC) Metabolic acidosis Acidosis 52yo F hx of recurrent hospitalizations, chronic respiratory failure on exertional 2L O2, DM2, 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 Pt has been admitted to transferring hospital for ~1 week with pneumonia requiring intubation, ultimately weaned to 2L NC. Acidosis persists, despite bicarb gtt. Neuro MDD Insomnia Plan: > continue MARINE ENGINE MECHANIC prozac > holding MARINE ENGINE MECHANIC amitriptyline Neuropathy - MARINE ENGINE MECHANIC was on gabapentin 300mg/600mg/600mg (TID dosing) Plan: > holding gabapentin with current MARIN CV HTN - MARINE ENGINE MECHANIC was on lisinopril, changed at OSH to metoprolol 100mg Plan: > monitor BPs, continue to hold metoprolol > pending echo given elevated BNP, hypoxic respiratory failure as below. Pulm Acute on chronic Hypoxic / hypercarbic respiratory failure - 06/07 - 06/15: treated for CAP at [facility] - 06/15 - 06/18: inpatient rehab in [place] - 06-18 - 06/24: admitted to ICU for respiratory failure, treated for HCAP with zosyn, escalated to meropenem(unclear why the escalation). - Initially required intubation ~72h at OSH, now down to 2L NC. - ABG 7.34/38/76 on 2L NC on 06/24 Plan: > CXR with volume overload. Continue 40mg IV BID lasix dosing, target net 1L negative diuresis > continuing vanc/zosyn for possible HCAP. 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 SVR achieved. Plan: > continue MARINE ENGINE MECHANIC rifaximin and lactulose > diuresis with lasix as above Renal MARIN - baseline Cr normal - MARINE ENGINE MECHANIC OSH Cr 2.06 - at OSH, appears she was diuresed and also subsequently given crystalloid and colloid. pt states she has gained weight and feels more edematous in LE and abdomen - [facility] Cr 1.72, urine studies suggest pre-renal etiology Plan: > continue diuresis with 40mg IV lasix BID > daily CMP, monitor UOP and I/Os daily Nongap Metabolic Acidosis - OSH ABG 7.26/57/72/20. - [facility] AB.34/38/76 (on 2-3L NC) - initial bicarb 20, which likely represents a more significant acidosis as she is a chronic retainer. - OHS/NABIL vs MARIN vs diarrhea Plan: > lactate, beta hydroxybutyrate > diuresis as above, continue to monitor MARIN as above ID HCAP treatment at OSH - received zosyn, escalated to meropenem at OSH Plan: > will continue zosyn / vanc for now, if procalcitonin negative can likely discontinue antibiotics > f/u cultures (sputum, blood, urine) Intertrigo Plan: > MARINE ENGINE MECHANIC nystatin Endo DM2 - MARINE ENGINE MECHANIC lantus 40, novolog 8u Plan: > continue lantus and CF Possible adrenal insufficiency Low cortisol - Coritsol 2.7 on random draw Plan > Cosyntropin stim test at 0800 on 06/26 Heme ITP -s/p splenectomy at age 6 and follows [facility] -Dr. Moran - platelet count wnl on admission, denies any recent bleeds Plan: > Cont MARINE ENGINE MECHANIC Promacta FEN: no IVF, electrolytes replaced prn, cardiac/diabetic diet LDA: double lumen PICC, indwelling catheer, no artificial airway PPx: lovenox Code status: full code Disposition: floor status Patient was seen and discussed with Dr. Darrion Chaidez MD PGY-1, Internal Medicine Pager [phone] Subjective Niecy Richey is a 52 y.o. female. Patient did well overnight. Breathing better this morning. Some acute on chronic back pain. Still endorses abdominal distension, lower extremity edema. No fevers or chills, constipation, diarrhea, hematuria. Review of Systems Constitution: Negative for chills, fever, malaise/fatigue, night sweats and weight loss. HENT: Negative for congestion, hearing loss and sore throat. Eyes: Negative for double vision, photophobia and visual disturbance. Cardiovascular: Positive for leg swelling. Negative for chest pain, dyspnea on exertion and palpitations. Respiratory: Positive for shortness of breath. Negative for cough, hemoptysis and wheezing. Musculoskeletal: Positive for back pain and myalgias. Negative for joint pain, joint swelling and muscle weakness. Gastrointestinal: Positive for bloating and abdominal pain. Negative for bowel incontinence, constipation, diarrhea, heartburn, hematochezia, melena, nausea and vomiting. Genitourinary: Negative for dysuria, frequency, hematuria and urgency. Neurological: Negative for focal weakness, numbness, seizures and tremors. Psychiatric/Behavioral: The patient does not have insomnia and is not nervous/ anxious. Medications Scheduled Meds: enoxaparin (LOVENOX) syringe 40 mg 40 mg Subcutaneous QDAY(21) insulin aspart U-100 (NOVOLOG FLEXPEN) injection PEN 0-6 Units 0-6 Units Subcutaneous ACHS (22) insulin aspart U-100 (NOVOLOG FLEXPEN) injection PEN 8 Units 8 Units Subcutaneous TID w/ meals insulin glargine (LANTUS SOLOSTAR, BASAGLAR) injection PEN 40 Units 40 Units Subcutaneous QHS(22) lactulose oral solution 20 g 20 g Oral TID nystatin (NYSTOP) topical powder Topical BID piperacillin/tazobactam (ZOSYN) 3.375 g in sodium chloride 0.9% (NS) 100 mL IVPB (MB+) 3.375 g Intravenous Q6H* rifAXIMin (XIFAXAN) tablet 550 mg 550 mg Oral BID SODIUM CHLORIDE 0.9 % IV SOLP (Cabinet Override) NOW [START ON 06/26/2018] vancomycin (VANCOCIN) 2,000 mg in sodium chloride 0.9% (NS) IVPB 2,000 mg Intravenous Q24H* Continuous Infusions: PRN and Respiratory Meds:[COMPLETED] vancomycin IVPB ONCE AND vancomycin, pharmacy to manage Per Pharmacy Objective Vital Signs: Last Filed Vital Signs: 24 Hour Range BP: 108/53 (06/26 399) Temp: 36.9 C (98.5 F) (06/26 399) Pulse: 66 (06/26 399) Respirations: 25 PER MINUTE (06/26 399) SpO2: 93 % (06/26 399) O2 Delivery: High Flow Nasal Cannula (06/26 399) SpO2 Pulse: 66 (06/26 399) Height: 172.7 cm (68") (06/24 2144) BP: (108-125)/(49-81) Temp: [36.8 C (98.2 F)-36.9 C (98.5 F)] Pulse: [64-74] Respirations: [16 PER MINUTE-29 PER MINUTE] SpO2: [91 %-99 %] O2 Delivery: High Flow Nasal Cannula Vitals: 06/24/182144 Weight: (!) 146 kg (321 lb 14 oz) Intake/Output Summary: (Last 24 hours) Intake/Output Summary (Last 24 hours) at 06/25/2018 0747 Last data filed at 06/25/2018 0600 Gross per 24 hour Intake 1240 ml Output 725 ml Net 515 ml Stool Occurrence: 1 Physical Exam Constitutional: She is oriented to person, place, and time. She appears well- developed and well-nourished. No distress. HENT: Head: Normocephalic and atraumatic. Mouth/Throat: Oropharynx is clear and moist. No oropharyngeal exudate. Eyes: Pupils are equal, round, and reactive to light. EOM are normal. Cardiovascular: Normal rate and regular rhythm. Exam reveals no gallop and no friction rub. No murmur heard. Pulmonary/Chest: Effort normal. She has no wheezes. She has rales (bilaterally) . Abdominal: Soft. Bowel sounds are normal. She exhibits distension. There is no tenderness. Obese, unable to assess organomegaly Musculoskeletal: She exhibits edema (2+ to hips bilaterally, pitting) and tenderness (bilateral lower extremities). Lymphadenopathy: She has no cervical adenopathy. Neurological: She is alert and oriented to person, place, and time. No cranial nerve deficit. Skin: Skin is warm and dry. No rash noted. Lab Review 24-hour labs: Results for orders placed or performed during the hospital encounter of (from the past 24 hour(s)) COMPREHENSIVE METABOLIC PANEL Collection Time: 06/24/18 9:51 PM Result Value Ref Range Sodium 136 (L) 137 - 147 MMOL/L Potassium 4.9 3.5 - 5.1 MMOL/L Chloride 109 98 - 110 MMOL/L Glucose 224 (H) 70 - 100 MG/DL Blood Urea Nitrogen 54 (H) 7 - 25 MG/DL Creatinine 1.72 (H) 0.4 - 1.00 MG/DL Calcium 8.5 8.5 - 10.6 MG/DL Total Protein 6.2 6.0 - 8.0 G/DL Total Bilirubin 1.5 (H) 0.3 - 1.2 MG/DL Albumin 3.4 (L) 3.5 - 5.0 G/DL Alk Phosphatase 86 25 - 110 U/L AST (SGOT) 25 7 - 40 U/L CO2 20 (L) 21 - 30 MMOL/L ALT (SGPT) 15 7 - 56 U/L Anion Gap 7 3 - 12 eGFR Non 31 (L) >60 mL/min eGFR 37 (L) >60 mL/min CBC AND DIFF Collection Time: 06/24/18 9:51 PM Result Value Ref Range White Blood Cells 22.9 (H) 4.5 - 11.0 K/UL RBC 2.81 (L) 4.0 - 5.0 M/UL Hemoglobin 8.0 (L) 12.0 - 15.0 GM/DL Hematocrit 25.0 (L) 36 - 45 % MCV 89.0 80 - 100 FL MCH 28.4 26 - 34 PG MCHC 31.9 (L) 32.0 - 36.0 G/DL RDW 22.7 (H) 11 - 15 % Platelet Count 128 (L) 150 - 400 K/UL MPV 11.7 (H) 7 - 11 FL Segmented Neutrophils 76 41 - 77 % Lymphocytes 12 (L) 24 - 44 % Monocytes 8 4 - 12 % Eosinophil 4 0 - 5 % ANISO PRESENT HYPO PRESENT POIK PRESENT Target PRESENT Platelet Estimate SLT DEC [place] Cells PRESENT Absolute Neutrophil Count Manual 17.40 (H) 1.8 - 7.0 K/UL LACTIC ACID (BG - RAPID LACTATE) Collection Time: 06/24/18 9:51 PM Result Value Ref Range Lactic Acid,BG 1.9 0.5 - 2.0 MMOL/L MAGNESIUM Collection Time: 06/24/18 9:51 PM Result Value Ref Range Magnesium 2.4 1.6 - 2.6 mg/dL PHOSPHORUS Collection Time: 06/24/18 9:51 PM Result Value Ref Range Phosphorus 3.8 2.0 - 4.5 MG/DL CORTISOL,RANDOM Collection Time: 06/24/18 9:51 PM Result Value Ref Range Cortisol, Random 2.4 (L) 5.0 - 20.0 MCG/DL BLOOD GASES, CENTRAL VENOUS Collection Time: 06/24/18 9:51 PM Result Value Ref Range PH-Central Venous 7.28 (L) 7.30 - 7.40 PCO2-Central Venous 47 >40 MMHG PO2-Central Venous 39 (L) 40 - 50 MMHG Base Deficit-Central Venous 4.9 MMOL/L O2 Sat (Calc)-Central Venous 63.0 (L) 65 - 75 % Bicarb-Central Venous 19.9 MMOL/L TYPE & CROSSMATCH Collection Time: 06/24/18 9:51 PM Result Value Ref Range Units Ordered 0 Crossmatch Expires 06/27/2018 Record Check FOUND ABO/RH(D) A POS Antibody Screen NEG Electronic Crossmatch YES PROCALCITONIN Collection Time: 06/24/18 9:51 PM Result Value Ref Range Procalcitonin 0.17 (H) <0.10 NG/ML POC GLUCOSE Collection Time: 06/24/18 9:55 PM Result Value Ref Range Glucose, POC 218 (H) 70 - 100 MG/DL RVP VIRAL PANEL PCR Collection Time: 06/24/18 9:56 PM Result Value Ref Range Specimen Source NASOPHARYNGEAL SWAB This assay uses analyte specific reagents and has not been cleared by the US Food and Drug Administration. The performance characteristics were determined by the [facility]. Adenovirus NOT DETECTED Coronavirus 229E NOT DETECTED Coronavirus HKU1 NOT DETECTED Coronavirus NL63 NOT DETECTED Coronavirus OC43 NOT DETECTED Human Metapneumovirus NOT DETECTED Human Rhinovirus/ENTEROVIRUS NOT DETECTED Influenza A H1N1 2009 NOT DETECTED Influenza A H1 NOT DETECTED Influenza A H3 NOT DETECTED Influenza B NOT DETECTED Parainfluenza 1 NOT DETECTED Parainfluenza 2 NOT DETECTED Parainfluenza 3 NOT DETECTED Parainfluenza 4 NOT DETECTED RSV NOT DETECTED Bordetella Pertussis NOT DETECTED Chlamydophila Pneumoniae NOT DETECTED Mycoplasma Pneumoniae NOT DETECTED URINALYSIS DIPSTICK Collection Time: 06/24/18 10:03 PM Result Value Ref Range Color,UA YELLOW Turbidity,UA 1+ (A) CLEAR-CLEAR Specific [place]-Urine 1.013 1.003 - 1.035 pH,UA 5.0 5.0 - 8.0 Protein,UA NEG NEG-NEG Glucose,UA NEG NEG-NEG Ketones,UA NEG NEG-NEG Bilirubin,UA NEG NEG-NEG Blood,UA 2+ (A) NEG-NEG Urobilinogen,UA NORMAL NORM-NORMAL Nitrite,UA NEG NEG-NEG Leukocytes,UA 2+ (A) NEG-NEG Urine Ascorbic Acid, UA NEG NEG-NEG URINALYSIS, MICROSCOPIC Collection Time: 06/24/18 10:03 PM Result Value Ref Range WBCs,UA 2-10 0 - 2 /HPF RBCs,UA 10-20 0 - 3 /HPF Bacteria,UA FEW (A) NEG-NEG Budding Yeast MODERATE CREATININE-URINE RANDOM Collection Time: 06/24/18 10:03 PM Result Value Ref Range Creatinine, Random 108 MG/DL UREA NITROGEN-URINE RANDOM Collection Time: 06/24/18 10:03 PM Result Value Ref Range Urea Nitrogen 558 MG/DL SODIUM-URINE RANDOM Collection Time: 06/24/18 10:03 PM Result Value Ref Range Sodium, Random 14 MMOL/L BLOOD GASES, ARTERIAL Collection Time: 06/24/18 10:03 PM Result Value Ref Range pH-Arterial 7.34 (L) 7.35 - 7.45 pCO2-Arterial 38 35 - 45 MMHG pO2-Arterial 76 (L) 80 - 100 MMHG Base Deficit-Arterial 5.1 MMOL/L O2 Sat-Arterial 95.9 95 - 99 % Vcqvfibqlrp-ADS-Yfa 20.2 (L) 21 - 28 MMOL/L LEGIONELLA ANTIGEN URINE,RAN Collection Time: 06/24/18 10:03 PM Result Value Ref Range Battery Name LEGIONELLA URINE ANTIGEN Specimen Description URINE Special Requests NONE Antigen NEGATIVE Report Status FINAL 06/24/2018 STREPTOCOCCUS PNEUMO AG, URINE Collection Time: 06/24/18 10:03 PM Result Value Ref Range Battery Name STREP PNEUMO AG, UR Specimen Description URINE Special Requests NONE Antigen NEGATIVE Report Status FINAL 06/24/2018 BNP (B-TYPE NATRIURETIC PEPTI) Collection Time: 06/24/18 11:14 PM Result Value Ref Range B Type Natriuretic Peptide 967.0 (H) 0 - 100 PG/ML POC GLUCOSE Collection Time: 06/25/18 12:06 AM Result Value Ref Range Glucose, POC 219 (H) 70 - 100 MG/DL CBC AND DIFF Collection Time: 06/25/18 3:57 AM Result Value Ref Range White Blood Cells 25.4 (H) 4.5 - 11.0 K/UL RBC 2.72 (L) 4.0 - 5.0 M/UL Hemoglobin 7.6 (L) 12.0 - 15.0 GM/DL Hematocrit 24.8 (L) 36 - 45 % MCV 91.1 80 - 100 FL MCH 27.7 26 - 34 PG MCHC 30.4 (L) 32.0 - 36.0 G/DL RDW 22.1 (H) 11 - 15 % Platelet Count 119 (L) 150 - 400 K/UL MPV 14.0 (H) 7 - 11 FL Nucleated RBCs 4 K/UL Segmented Neutrophils 63 41 - 77 % Bands 3 0 - 10 % Lymphocytes 17 (L) 24 - 44 % Monocytes 9 4 - 12 % Eosinophil 7 (H) 0 - 5 % Basophil 1 0 - 2 % ANISO PRESENT POLY PRESENT Ovalocyte PRESENT Schistocyte PRESENT Target PRESENT [place] Bodies PRESENT Platelet Estimate SLT DEC Absolute Neutrophil Count Manual 16.76 (H) 1.8 - 7.0 K/UL PROTIME INR (PT) Collection Time: 06/25/18 3:57 AM Result Value Ref Range INR 1.4 (H) 0.8 - 1.2 PTT (APTT) Collection Time: 06/25/18 3:57 AM Result Value Ref Range APTT 26.5 24.0 - 36.5 SEC COMPREHENSIVE METABOLIC PANEL Collection Time: 06/25/18 3:57 AM Result Value Ref Range Sodium 137 137 - 147 MMOL/L Potassium 4.8 3.5 - 5.1 MMOL/L Chloride 110 98 - 110 MMOL/L Glucose 170 (H) 70 - 100 MG/DL Blood Urea Nitrogen 52 (H) 7 - 25 MG/DL Creatinine 1.72 (H) 0.4 - 1.00 MG/DL Calcium 8.5 8.5 - 10.6 MG/DL Total Protein 6.1 6.0 - 8.0 G/DL Total Bilirubin 1.7 (H) 0.3 - 1.2 MG/DL Albumin 3.4 (L) 3.5 - 5.0 G/DL Alk Phosphatase 82 25 - 110 U/L AST (SGOT) 28 7 - 40 U/L CO2 21 21 - 30 MMOL/L ALT (SGPT) 16 7 - 56 U/L Anion Gap 6 3 - 12 eGFR Non 31 (L) >60 mL/min eGFR 37 (L) >60 mL/min MAGNESIUM Collection Time: 06/25/18 3:57 AM Result Value Ref Range Magnesium 2.4 1.6 - 2.6 mg/dL PHOSPHORUS Collection Time: 06/25/18 3:57 AM Result Value Ref Range Phosphorus 4.0 2.0 - 4.5 MG/DL POC GLUCOSE Collection Time: 06/25/18 6:15 AM Result Value Ref Range Glucose, POC 156 (H) 70 - 100 MG/DL POC GLUCOSE Collection Time: 06/25/18 11:20 AM Result Value Ref Range Glucose, POC 172 (H) 70 - 100 MG/DL LACTIC ACID (BG - RAPID LACTATE) Collection Time: 06/25/18 11:22 AM Result Value Ref Range Lactic Acid,BG 1.4 0.5 - 2.0 MMOL/L Point of Care Testing (Last 24 hours) Radiology and other Diagnostics Review: Pertinent radiology reviewed. BECK CHAIDEZ MD Pager [phone] Associated attestation - Melissa Maier MD - 06/25/2018 4:25 PM CDT ATTESTATION I personally performed the jarrell portions of the E/M visit, discussed case with the resident and concur with the documentation of history, physical exam, assessment, and treatment plan unless otherwise noted. The patient was transferred to [facility] with concern for pneumonia. On imaging, she appears to have pulmonary edema with potential for superimposed pneumonia. Awaiting pro-calcitonin. If negative, I think we can consider discontinuation of antibiotics. Continue diuresis. She has been told she needs a BiPAP, which she has been using in rehab. We will continue nocturnal BiPAP at 10/5 at this time. Ideally, she would have a formal sleep study as an outpatient. She is acute kidney injury, hopeful for continued improvement with diuresis. Her leukocytosis appears persistent from her last hospitalization. Cortisol low, unclear significance since drawn at 9 PM. Order cortisol stim test in the morning. Repeating BMP this afternoon. Concerning that her usually elevated bicarb is now lower. Further workup of potential acidosis. Repeating echocardiogram pending. She is stable for the floor. Staff name: Melissa Maier MD Date: 06/25/2018 * Machelle Villalta, PHARMD - 06/25/2018 7:25 AM CDT Pharmacy to Manage Antibiotic Initiation Note Niecy Richey is a 52 y.o. female being started on Vancomycin for treatment of HCAP. Creatinine Date/Time Value Ref Range Status 06/25/2018 0357 1.72 (H) 0.4 - 1.00 MG/DL Final Estimated CrCl: 57 ml/min Actual Weight: 146 kg (321 lb 14 oz) IBW: 63.9 kg Adjusted BW: 96.7 kg Vancomycin Dosing Wt:146 kg Plan: Based on patient's current weight and impaired renal function, will start vancomycin 2000mg (~12mg/kg) IV every 24 hours. Pharmacy will continue to monitor and adjust therapy as needed. Thank you, Machelle Villalta, PHARMD 06/25/2018 * Darcie Armstrong, RT - 06/25/2018 1:54 AM CDT RT Adult Assessment Note NAME:Niecy Richey :1965 AGE: 52 y.o. ADMISSION DATE: 06/24/2018 DAYS ADMITTED: LOS: 1 day RT Treatment Plan: Protocol Plan: Procedures IPPB: Place a nursing order for "IS Q1h While Awake" for any of Lung Expansion indicators Oxygen/Humidity: O2 to keep SpO2 > 92% Monitoring: Pulse oximetry continuous during night/sleep Comment: 2lpm O2 @ Home prn, Hb 8.0 Additional Comments: Impressions of the patient: lying down in bed Intervention(s)/outcome(s):Paitent placed on cpap Patient education that was completed: none Recommendations to the care team: none Vital Signs: Pulse: 64 RR: 21 PER MINUTE SpO2: 97 % O2 Device: Bled-In Liter Flow: 8 Lpm O2%: Breath Sounds: Decreased Respiratory Effort: Non-Labored * Faye Lanier RN - 06/24/2018 10:38 PM CDT ~2145: Assumed care of patient. Bedside safety check completed with EMS. Lines and alarms verified. Fall bundle in place. Assessment completed and documented per ICU flowsheet. Patient VSS per patient trend. Orders reviewed and implemented. Bed locked low. Call light in reach. Will continue to monitor and assess. * Faye Lanier RN - 06/24/2018 10:38 PM CDT Patient arrived to room # (7212*) via cart accompanied by transport. Patient transferred to the bed with assistance. Bedside safety checks completed. Initial patient assessment completed, refer to flowsheet for details. Admission skin assessment completed by: VERENA Jules and VERENA Fry Pressure Injury Present on Hospital Admission (within 24 hours): No 1. Occiput: No 2. Ear: No 3. Scapula: No 4. Spinous Process: No 5. Shoulder: No 6. Elbow: No 7. Iliac Crest: No 8. Sacrum/Coccyx: No 9. Ischial Tuberosity: No 10. Trochanter: No 11. Knee: No 12. Malleolus: No 13. Heel: No 14. Toes: No 15. Assessed for device associated injury Yes 16. Nursing Nutrition Assessment Completed Yes See Doc Flowsheet for additional wound details. 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 Pt has been admitted to transferring hospital for ~1 week with pneumonia requiring intubation, ultimately weaned to 2L NC. Acidosis persists, despite bicarb gtt. Neuro Mood - [employer] prozac Neuropathy - [employer] gabapentin 300/600/600 > hold with renal function Insomnia - [employer] amitriptyline > hold CV HTN - [employer] lisinopril was switched to toprol 100 at OSH > hold for now Pulm Acute on chronic Hypoxic hypercarbic respiratory failure - 06/07 - 06/15: treated for CAP at [facility] - 06/15 - 06/18: inpatient rehab in [place] - 06-18 - 06/24: admitted to ICU for respiratory failure, treated for HCAP with zosyn -> meropenem (unclear why the escalation). Initially required intubation ~ 72h, now down to 2L NC. - never intubated prior to transfer, oxygenating well upon arrival to MICU. ABG 7. on 2L NC - ddx: pna, chf > CXR, sputum cx, procal, RVP, legionella/strep > continue zosyn, vanc for now > echo. elevated bnp, cxr w/ congestion, edematous > diureses w/ IV lasix NABIL - qhs bipap GI ESLD 2/2 MCGOWAN & HCV - not currently an OLT candidate 2/2 BMI > cont [employer] rifaximin and lactulose > hold diuretics bumex HCV s/p treatment w/ interferon and ribavirin in 2012. SVR achieved. Renal MARIN - baseline Cr normal - [employer] OSH Cr 2.06 - at OSH, appears she was diuresed and also subsequently given crystalloid and colloid. pt states she has gained weight and feels more edematous in LE and abdomen - [facility] Cr 1.72, urine studies suggest pre-renal etiology > diurese with 40 IV lasix and evaluate response Metabolic Acidosis - OSH ABG 7.26/57/72/20. - [facility] AB. (on 2-3L NC) - initial bicarb 20, which likely represents a more significant acidosis as she is a chronic retainer. > renal studies as above, optimize respiratory status. Increased amount of diarrhea may also be adding to acidosis. ID HCAP treatment at OSH - received zosyn, escalated to meropenem. See pulm for details. > will cont zosyn / vanc for now > blood, sputum cx, cxr, procal, rvp Intertrigo - nystatin Endo DM2 - [employer] lantus 40, novolog 8u > cont lantus and CF Heme ITP -s/p splenectomy at age 6 and follows heme -Dr. Moran - platelet count wnl on admission, denies any recent bleeds > Cont [employer] Promacta FEN: no ivf, replace prn, npo for now full lovenox admit to micu discussed w/ Dr. Ladd __ Primary Care Physician: Santiago Torres PCP Unknown Chief Complaint: acidosis History of Present Illness: Niecy Richey is a 52 y.o. female with the above medical hx. She was recently admitted to [facility] for hepatic encephalopathy and pneumonia from 06/07 - 06/15 . She was transferred to [facility] inpatient rehab on 06/15/18. On 06/07 when she was transferred from rehab to ICU due to acute respiratory failure with CO2 narcosis requiring intubation. At the time of transfer she had a fever and elevated creatinine of 1.52.5. She was started empirically on Zosyn and switched to meropenem later. Chest x-ray reportedly showed bilateral infiltrates and was started on Levophed for hypotension. Was evaluated by cardiology where MORGAN inhibitor was switched to beta-chelsie. Echo was planned to be performed, but no final report jeffrey. During her inpatient stay at OSH, WBC decreased from 30 K to 25 daily on 06/24. Creatinine increased from 1.3-2.06, BUN 49, anion gap 10 bicarb 20. She was transferred to for persistent metabolic acidosis and renal failure. Upon arriving to MICU, she was afebrile, P 66, R 29, 96% on 2L, MAP 92. No acute distress. She states she feels better than she has earlier in the day. Denies shortness of breath, chest pain, abdominal pain. She reports chronic diarrhea on lactulose but states she has had more bowel movements than normal. She states she has gained weight during the hospital stay and has become more edematous of her lower extremities and abdomen. She lives in [place] with her , son, and [id number]. Prior to [facility] admission in late May, she states she ambulated well without assistance. Denies smoking, alcohol, illicits. Past Medical History: Diagnosis Date Chronic respiratory failure with hypoxia, on home oxygen therapy (HCC) 2L NC w/ exertion DM (diabetes mellitus) (HCC) End stage liver disease (HCC) 06/10/2018 GERD (gastroesophageal reflux disease) History of hepatitis C 04/18/2017 tx w/ ribavirin and IFN HTN (hypertension) MCGOWAN (nonalcoholic steatohepatitis) 06/10/2018 Neuropathy S/P splenectomy 06/10/2018 Thrombocytopenia (HCC) Type 2 diabetes mellitus with complication (HCC) 08/21/2016 Past Surgical History: Procedure Laterality Date HX HYSTERECTOMY SPLENECTOMY No family history on file. Social History Socioeconomic History Marital status: Spouse name: Not on file Number of children: Not on file Years of education: Not on file Highest education level: Not on file Occupational History Not on file Social Needs Financial resource strain: Not on file Food insecurity: Worry: Not on file Inability: Not on file Transportation needs: Medical: Not on file Non-medical: Not on file Tobacco Use Smoking status: Never Smoker Smokeless tobacco: Never Used Substance and Sexual Activity Alcohol use: No Drug use: No Sexual activity: Not on file Lifestyle Physical activity: Days per week: Not on file Minutes per session: Not on file Stress: Not on file Relationships Social connections: Talks on phone: Not on file Gets together: Not on file Attends moravian service: Not on file Active member of club or organization: Not on file Attends meetings of clubs or organizations: Not on file Relationship status: Not on file Intimate partner violence: Fear of current or ex partner: Not on file Emotionally abused: Not on file Physically abused: Not on file Forced sexual activity: Not on file Other Topics Concern Not on file Social History Narrative Not on file Immunizations (includes history and patient reported): There is no immunization history on file for this patient. Allergies: Dilaudid [hydromorphone]; Metformin; and Reglan [metoclopramide] Medications: Medications Prior to Admission Medication Sig acetaminophen (TYLENOL) 325 mg tablet Take 650 mg by mouth daily as needed for Pain. Max of 4,000 mg of acetaminophen in 24 hours. amitriptyline (ELAVIL) 25 mg tablet Take 25 mg by mouth at bedtime daily. benzonatate (TESSALON PERLES) 100 mg capsule Take one capsule to two capsules by mouth every 8 hours as needed for Cough. bumetanide (BUMEX) 1 mg tablet Take 1 mg by mouth daily. Carisoprodol 250 mg tab Take 1 tablet by mouth three times daily. eltrombopag (PROMACTA) 50 mg tablet Take two tablets daily on an empty stomach (at least 1 hour before or 2 hours after food). Separate antacids by at least 4 hours. fluoxetine (PROZAC) 20 mg capsule Take 20 mg by mouth daily. gabapentin (NEURONTIN) 300 mg capsule Take 1 capsule by mouth in the morning , two capsules in the afternoon and two capsules in the evening as needed. guaiFENesin (ROBITUSSIN) 100 mg/5 mL oral solution Take 10 mL by mouth every 4 hours as needed. insulin aspart U-100 (NOVOLOG FLEXPEN) 100 unit/mL injection PEN Inject zero Units to six Units under the skin before meals and 2200. insulin glargine (LANTUS SOLOSTAR, BASAGLAR) 100 unit/mL (3 mL) injection PEN Inject forty Units under the skin at bedtime daily. Patient was taking 50 U BID prior to hospitalization. She is needing significantly less in the hospital off steroids and on diabetic diet. Indications: type 2 diabetes mellitus insulin lispro(+) (HUMALOG KWIKPEN INSULIN) 100 unit/mL injection PEN Inject eight Units to thirteen Units under the skin three times [...] give additional 5 units if BS >400 lactulose 10 gram/15 mL oral solution Take 20 g by mouth four times daily. lisinopril (PRINIVIL; ZESTRIL) 10 mg tablet Take 1 tablet by mouth daily. loratadine 10 mg cap Take 1 capsule by mouth daily. nystatin (NYSTOP) 100,000 unit/g topical powder Apply under breast. rifAXIMin (XIFAXAN) 550 mg tablet Take 1 Tab by mouth twice daily. Indications: HEPATIC ENCEPHALOPATHY tiZANidine (ZANAFLEX) 2 mg tablet Take one tablet by mouth every 8 hours as needed. Review of Systems: All other systems reviewed and are negative. Physical Exam: Vital Signs: Last Filed In 24 Hours Vital Signs: 24 Hour Range General: Alert, cooperative, no distress, appears stated age. Obese Head: Normocephalic, without obvious abnormality, atraumatic Eyes: Conjunctivae/corneas clear. PERRL, EOMs intact. Fundi benign Lungs: Clear to auscultation bilaterally Heart: Regular rate and rhythm, possible gallop. distant sounds. Abdomen: Soft, obese, subQ tissue edematous, non-tender. Bowel sounds normal. Extremities: bilateral pitting edema to hips Neurologic: nonfocal Lab/Radiology/Other Diagnostic Tests: 24-hour labs: Results for orders placed or performed during the hospital encounter of (from the past 24 hour(s)) COMPREHENSIVE METABOLIC PANEL Collection Time: 06/24/18 9:51 PM Result Value Ref Range Sodium 136 (L) 137 - 147 MMOL/L Potassium 4.9 3.5 - 5.1 MMOL/L Chloride 109 98 - 110 MMOL/L Glucose 224 (H) 70 - 100 MG/DL Blood Urea Nitrogen 54 (H) 7 - 25 MG/DL Creatinine 1.72 (H) 0.4 - 1.00 MG/DL Calcium 8.5 8.5 - 10.6 MG/DL Total Protein 6.2 6.0 - 8.0 G/DL Total Bilirubin 1.5 (H) 0.3 - 1.2 MG/DL Albumin 3.4 (L) 3.5 - 5.0 G/DL Alk Phosphatase 86 25 - 110 U/L AST (SGOT) 25 7 - 40 U/L CO2 20 (L) 21 - 30 MMOL/L ALT (SGPT) 15 7 - 56 U/L Anion Gap 7 3 - 12 eGFR Non 31 (L) >60 mL/min eGFR 37 (L) >60 mL/min CBC AND DIFF Collection Time: 06/24/18 9:51 PM Result Value Ref Range White Blood Cells 22.9 (H) 4.5 - 11.0 K/UL RBC 2.81 (L) 4.0 - 5.0 M/UL Hemoglobin 8.0 (L) 12.0 - 15.0 GM/DL Hematocrit 25.0 (L) 36 - 45 % MCV 89.0 80 - 100 FL MCH 28.4 26 - 34 PG MCHC 31.9 (L) 32.0 - 36.0 G/DL RDW 22.7 (H) 11 - 15 % Platelet Count 128 (L) 150 - 400 K/UL MPV 11.7 (H) 7 - 11 FL Segmented Neutrophils 76 41 - 77 % Lymphocytes 12 (L) 24 - 44 % Monocytes 8 4 - 12 % Eosinophil 4 0 - 5 % ANISO PRESENT HYPO PRESENT POIK PRESENT Target PRESENT Platelet Estimate SLT DEC [place] Cells PRESENT Absolute Neutrophil Count Manual 17.40 (H) 1.8 - 7.0 K/UL LACTIC ACID (BG - RAPID LACTATE) Collection Time: 06/24/18 9:51 PM Result Value Ref Range Lactic Acid,BG 1.9 0.5 - 2.0 MMOL/L MAGNESIUM Collection Time: 06/24/18 9:51 PM Result Value Ref Range Magnesium 2.4 1.6 - 2.6 mg/dL PHOSPHORUS Collection Time: 06/24/18 9:51 PM Result Value Ref Range Phosphorus 3.8 2.0 - 4.5 MG/DL CORTISOL,RANDOM Collection Time: 06/24/18 9:51 PM Result Value Ref Range Cortisol, Random 2.4 (L) 5.0 - 20.0 MCG/DL BLOOD GASES, CENTRAL VENOUS Collection Time: 06/24/18 9:51 PM Result Value Ref Range PH-Central Venous 7.28 (L) 7.30 - 7.40 PCO2-Central Venous 47 >40 MM[facility] PO2-Central Venous 39 (L) 40 - 50 MM[facility] Base Deficit-Central Venous 4.9 MMOL/L O2 Sat (Calc)-Central Venous 63.0 (L) 65 - 75 % Bicarb-Central Venous 19.9 MMOL/L POC GLUCOSE Collection Time: 06/24/18 9:55 PM Result Value Ref Range Glucose, POC 218 (H) 70 - 100 MG/DL URINALYSIS DIPSTICK Collection Time: 06/24/18 10:03 PM Result Value Ref Range Color,UA YELLOW Turbidity,UA 1+ (A) CLEAR-CLEAR Specific [place]-Urine 1.013 1.003 - 1.035 pH,UA 5.0 5.0 - 8.0 Protein,UA NEG NEG-NEG Glucose,UA NEG NEG-NEG Ketones,UA NEG NEG-NEG Bilirubin,UA NEG NEG-NEG Blood,UA 2+ (A) NEG-NEG Urobilinogen,UA NORMAL NORM-NORMAL Nitrite,UA NEG NEG-NEG Leukocytes,UA 2+ (A) NEG-NEG Urine Ascorbic Acid, UA NEG NEG-NEG URINALYSIS, MICROSCOPIC Collection Time: 06/24/18 10:03 PM Result Value Ref Range WBCs,UA 2-10 0 - 2 /HPF RBCs,UA 10-20 0 - 3 /HPF Bacteria,UA FEW (A) NEG-NEG Budding Yeast MODERATE CREATININE-URINE RANDOM Collection Time: 06/24/18 10:03 PM Result Value Ref Range Creatinine, Random 108 MG/DL UREA NITROGEN-URINE RANDOM Collection Time: 06/24/18 10:03 PM Result Value Ref Range Urea Nitrogen 558 MG/DL SODIUM-URINE RANDOM Collection Time: 06/24/18 10:03 PM Result Value Ref Range Sodium, Random 14 MMOL/L BLOOD GASES, ARTERIAL Collection Time: 06/24/18 10:03 PM Result Value Ref Range pH-Arterial 7.34 (L) 7.35 - 7.45 pCO2-Arterial 38 35 - 45 MM[facility] pO2-Arterial 76 (L) 80 - 100 MM[facility] Base Deficit-Arterial 5.1 MMOL/L O2 Sat-Arterial 95.9 95 - 99 % Cdzkjjqbnhy-EGV-Bkp 20.2 (L) 21 - 28 MMOL/L Pertinent radiology reviewed. Lupillo Coto MD [id number] Associated attestation - Archana Ladd MD - 06/25/2018 3:11 AM CDT MICU STAFF NOTE Pt seen, personally fully examined, and discussed with housestaff team on . I have reviewed all pertinent labs, images, and diagnostic studies outlined in the resident's note. I agree with the objective findings and with the plan of care as documented by the resident with the exceptions noted. Ms. Richey is critically ill with acute on chronic hypercarbic and hypoxemic respiratory failure, MARIN, and mixed acidosis in the setting of ESLD. She is accepted in transfer from [place] after admission there on 06/18/18 from SNF/ inpatient rehab with acute on chronic respiratory failure thought secondary to pneumonia, requiring intubation. Hospital course notable for post-extubation BiPAP-dependence with poor tolerance, persistent mixed acidosis (7.26/57/72/20) treated with bicarb gtt, and MARIN (Cr peak 2.1, baseline 0.7). She is subsequently transferred here for further workup and management. 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 Of note, she was hospitalized at [facility] 06/07/18-06/15/18 with lethargy and URI symptoms-- hospital course notable for empiric treatment of CAP and SBP (all cultures negative), PSE , back pain (received trigger point injections), and discharge to inpatient rehab for deconditioning. Exam notable for lethargic but easily arousable & oriented, morbidly obese, pleasant, comfortable-appearing woman, in no acute distress. Reactive pupils, dry mucous membranes, regular heart, diminished breath sounds, obese abdomen without focal tenderness, pitting edema to hips bilaterally, warm skin, grossly neurologically intact. Labs and imaging personally reviewed, notable for leukocytosis WBC 22.9, 76% PMNs, stable chronic anemia Hb 8 (at baseline), stable thrombocytopenia 128, largely nl electrolytes, metabolic acidosis with serum CO2 20 (baseline chronically elevated 32-36), improving MARIN with Cr 1.7 ( baseline 0.7), nl LFTs, nl lactate 1.9, elevated BNP 967 (prior 236), UA marginal for infection with 2+LE, 2-10 WBC, few bacteria, moderate yeast. ABG 7.34/38/76/20 consistent with metabolic acidosis and (relative) respiratory alkalosis. CXR with pulm vascular congestion, persistent LLL atelectasis and small left effusion, right hemithorax with faint haziness throughout (?layering effusion). TTE 09/04 with hyperdynamic LVef 70%, nl RV, mild LAE, mild asymmetric basal septal hypertrophy with outflow obstruction (gradient 11). Overall impression is that of acute on chronic hypercarbic and hypoxemic respiratory failure, MARIN, and mixed acidosis in the setting of morbid obesity with suspected OHS/NABIL (untreated) and ESLD. She does not appear to be in acutely decompensated liver disease. Ddx for respiratory component includes pulmonary edema/volume overload (supported by exam, BNP, imaging), HCAP ( leukocytosis, abnl CXR (largely unchanged), but lacking fever/sputum/cough), and natural progression of untreated OHS/NABIL. Ddx for MARIN includes pre-renal, cardiorenal, medication/toxin etiologies. Our plan is respiratory support with nocturnal NIPPV, empiric diuresis, TTE to assess cardiac function (particularly diastolic function, RV, and outflow tract given prior mild obstruction), broad infectious workup, empiric HCAP treatment with vanc/zosyn with rapid de- escalation as guided by culture data, urine studies to assess MARIN, and continue lactulose/rifaximin for PSE. Remainder of plan as documented in resident's note , including general ICU supportive care. I spent 60 minutes (excluding time spent performing or supervising any procedures) providing and personally directing critical care services including : - systems review and physical examination - review of hemodynamic, respiratory, telemetry, laboratory, and imaging data - review of medications - management of fluids/electrolytes, antibiotics, gas exchange, NIPPV, ICU prophylaxis, and ICU core measures - organization and coordination of care plan with nursing staff and residents - directing the formulation of the overall plan of care outlined above Archana Ladd [id number] documented in this encounter Consult Notes * Archana Mckeon, RN - 06/30/2018 11:40 AM CDT Associated Order(s): CONSULT WOUND/OSTOMY TEAM NURSE Wound Ostomy Note NAME:Niecy Richey :1965 AGE: 52 y.o. ADMISSION DATE: 06/24/2018 DAYS ADMITTED: LOS: 6 days Reason for Consult/Visit: pressure injury Stage II or greater Assessment/Plan: Active Problems: End stage liver disease (HCC) Metabolic acidosis Acidosis 52 y.o. female with PMHofchronic respiratory failure with hypoxia, on home oxygen therapy, DMT2,end stage liver disease, GERD, hxof hepatitis C, HTN, MCGOWAN, ITP s/psplenectomy Wound team consulted for stage 2 to the right buttock. Pt recently transferred to the floor from the ICU. Area to the inner right buttock is pink and dry with intact flaky skin surrounding/ No open wound at this time. D/t location, pt size and stage of healing, Unable to determine etiology of wound. RECOMMEND: Continue to turn q 2 hours Apply barrier cream to healing/healed jeramie BID Will sign off Archana Mckeon RN, BSN Wound Ostomy Nursing Consult Service [facility] Office: [phone] Pager: [phone] * Jacek Stovall DO - 06/29/2018 11:25 AM CDT Associated Order(s): CONSULT HEMATOLOGY PHYSICIAN Hematology/Oncology Consult Note Name: Niecy Richey Admission Date: 06/24/2018 Impression and Recommendations Niecy Richey is a 52 y.o. female with PMH of chronic respiratory failure with hypoxia, on home oxygen therapy, DMT2, end stage liver disease, GERD, hx of hepatitis C, HTN, MCGOWAN, ITP s/p splenectomy. Who was transferred to on 06/24 for further treatment of hypoxic respiratory failure, persistent metabolic acidosis. Hematology team was consulted for thrombocytopenia. ## Thrombocytopenia ## Chronic ITP on promecta ## ESLD ## MCGOWAN ## Hepatitis C Plan: Mrs Richey is a pleasant lady with pmhx of ITP since a young age. She had splenectomy at the age of 6 and was treated with steroid and Rituximab in the past and now she is on promecta. She has been off Promecta since 06/18 which would explain her Platelet count. Other cause which can cause thrombocytopenia in her case could be Zosyn as she was treated for 10 days in the past but now she is off or TTP /HUS but her kidney function improved and there is no sign of hemolysis, fever or neurological manifestation. (Her Hapto and Bili were normal but LDH was high which could be explained by her recent infection). Her peripheral smear which showed 1-2 schistocyte in HPF with large platelet which support or suspicion that its unlikely TTP. Please check hemolysis labs daily ( LDH, Hapto and Bilirubin) She was restarted on her dose 100 mg daily on 06/26. So we will monitor her count while she is inpatient, if her counts drop below 30.000 or she start to bleed we would proceed with IVIG to help her counts. Patient was seen and discussed with Dr Wilman Mendez Pager: [phone] Fellow/Hematology and Medical Oncology [facility] [place] ATTESTATION I have personally performed a history and physical exam on the patient. I have discussed the case with the fellow and concur with the fellow documentation of history, physical exam, assessment, and treatment plan unless otherwise noted. Ms Richey has multiple comorbidities including ESLD, DM, chronic respiratory failure. She has multiply relapsed ITP originally diagnosed at the age of 6. She has most recently been controlled on Promacta. That has been held since due to hospitalization. She has a recent pneumonia and pulmonary edema requiring intubation. Her respiratory status is improving. Her worsening thromobcytopenia is likely from withdrawal of Promacta and we certainly agree with continuing it indefinitely. She does have 1-2 schistocytes per HPF on smear. LDH is elevated, but it could be from her liver disease. Her hapto is normal. Tico is normal. I think TMA/TTP is unlikely but we recommend monitoring daily hemolysis and DIC labs. We would only plan for IVIG for acute bleeding or possibly perioperatively. Her neutrophilia and monocytosis are likely from her splenectomy and are currently stable. Staff name: Jacek Stovall DO Pager [phone] Date:06/29/2018 Reason for consult: thrombocytopenia HISTORY OF PRESENT ILLNESS: Niecy Richey is a 52 y.o. female with PMH of chronic respiratory failure with hypoxia, on home oxygen therapy, DMT2, end stage liver disease, GERD, hx of hepatitis C, HTN, MCGOWAN, ITP s/p splenectomy. Who was transferred to on 06/24 for further treatment of hypoxic respiratory failure, persistent metabolic acidosis. Pt was recently admitted to the [facility] for pneumonia between 06/07-06/15 then she was discharged to SNF/rehab. She then got admitted at OSH on 06/18 for 1 week with pneumonia requiring intubation, ultimately weaned to 2L NC prior to transfer to . Today patient feels much better. She still on O2 3-4L. She denies bleeding episode or easy bruising. She denies fever, night sweat or weight loss. Patient on Promecta for her ITP but she been off it since 06/18. Hematology team was consulted for thrombocytopenia. For her ITP she had splenectomy at age 6 and she was treated with Steroid and Rituximab in the past and now she is promecta. PMH: Past Medical History: Diagnosis Date Chronic respiratory failure with hypoxia, on home oxygen therapy (HCC) 2L NC w/ exertion DM (diabetes mellitus) (HCC) End stage liver disease (HCC) 06/10/2018 GERD (gastroesophageal reflux disease) History of hepatitis C 04/18/2017 tx w/ ribavirin and IFN HTN (hypertension) MCGOWAN (nonalcoholic steatohepatitis) 06/10/2018 Neuropathy S/P splenectomy 06/10/2018 Thrombocytopenia (HCC) Type 2 diabetes mellitus with complication (HCC) 08/21/2016 PSH: Past Surgical History: Procedure Laterality Date HX HYSTERECTOMY SPLENECTOMY SOCIAL HISTORY: Social History Socioeconomic History Marital status: Spouse name: Not on file Number of children: Not on file Years of education: Not on file Highest education level: Not on file Occupational History Not on file Tobacco Use Smoking status: Never Smoker Smokeless tobacco: Never Used Substance and Sexual Activity Alcohol use: No Drug use: No Sexual activity: Not on file Other Topics Concern Not on file Social History Narrative Not on file FAMILY HISTORY: No family history on file. IMMUNIZATIONS: There is no immunization history on file for this patient. ALLERGIES: Dilaudid [hydromorphone]; Metformin; and Reglan [metoclopramide] HOME MEDICATIONS: Medications Prior to Admission Medication Sig acetaminophen (TYLENOL) 325 mg tablet Take 650 mg by mouth daily as needed for Pain. Max of 4,000 mg of acetaminophen in 24 hours. amitriptyline (ELAVIL) 25 mg tablet Take 25 mg by mouth at bedtime daily. bumetanide (BUMEX) 1 mg tablet Take 1 mg by mouth daily. eltrombopag (PROMACTA) 50 mg tablet Take two tablets daily on an empty stomach (at least 1 hour before or 2 hours after food). Separate antacids by at least 4 hours. fluoxetine (PROZAC) 20 mg capsule Take 20 mg by mouth daily. gabapentin (NEURONTIN) 300 mg capsule Take 1 capsule by mouth in the morning , two capsules in the afternoon and two capsules in the evening as needed. insulin glargine (LANTUS SOLOSTAR, BASAGLAR) 100 unit/mL (3 mL) injection PEN Inject forty Units under the skin at bedtime daily. Patient was taking 50 U BID prior to hospitalization. She is needing significantly less in the hospital off steroids and on diabetic diet. Indications: type 2 diabetes mellitus insulin lispro(+) (HUMALOG KWIKPEN INSULIN) 100 unit/mL injection PEN Inject eight Units to thirteen Units under the skin three times [...] give additional 5 units if BS >400 (Patient taking differently: Inject 18 Units under the skin three times daily [...] Please give additional 5 units if BS >400) lactulose 10 gram/15 mL oral solution Take 20 g by mouth four times daily. lisinopril (PRINIVIL; ZESTRIL) 10 mg tablet Take 1 tablet by mouth daily. loratadine (CLARITIN) 10 mg tablet Take 10 mg by mouth every morning. nystatin (NYSTOP) 100,000 unit/g topical powder Apply under breast. rifAXIMin (XIFAXAN) 550 mg tablet Take 1 Tab by mouth twice daily. Indications: HEPATIC ENCEPHALOPATHY ROS: Constitutional: denies fever, chills, night sweats, weight loss Eyes: denies double vision, sudden vision loss ENT & mouth:denies ringing in the ears, sudden hearing loss Cardiovascular: denies chest pain, palpitations Respiratory:+ cough, +shortness of breath GI: denies nausea, vomiting, diarrhea, constipation : denies increased urinary frequency, dysuria Musculoskeletal: denies joint pain, weakness Skin: denies new skin rash or skin lesions Neurological:denies dizziness, loss of consciousness Psychiatric: denies depression, suicidal ideation Endocrine: denies heat or cold intolerance Hematology/lymphatic: denies abnormal bleeding, bruising, new lymph nodes PHYSICAL EXAM: Vital Signs: Last Filed In 24 Hours BP: 122/62 (06/30 799) Temp: 36.6 C (97.9 F) (06/30 799) Pulse: 83 (06/30 799) Respirations: 19 PER MINUTE (06/28 2114) SpO2: 94 % (06/30 799) O2 Delivery: Nasal Cannula (06/30 799) SpO2 Pulse: 83 (06/30 799) General: Awake, in no acute distress. HEENT: NC/AT, sclera non-icteric, moist mucus membranes, clear oropharynx Neck: no JVD, no carotid bruit Lymph Nodes: Not palpable CV: regular rhythm, normal rate, no murmur/rub/gallop Lungs: decrease air entry bilateral Abdomen: soft, non-tender, non-distended, normo-active bowel sounds Hepatosplenomegaly: No Extremities: +2 edema Neuro: no focal deficits Skin: no rashes LABS: Recent CBC Recent Labs 06/27/18 0407 06/28/18 0420 06/28/18 0650 06/28/18 1001 06/29/18 0425 WBC 24.1* 22.2* 18.3* 18.4* 21.6* HGB 7.0* 7.2* 6.8* 7.4* 7.7* HCT 21.6* 23.2* 21.2* 23.5* 23.8* PLTCT 91* 54* 38* 45* 32* MCV 89.6 90.9 89.3 89.9 88.4 INR 1.5* 1.5* -- -- 1.5* Recent CMP Recent Labs 06/27/18 0407 06/27/18 1512 06/28/18 0420 06/28/18 1001 06/28/18 2120 06/29/18 0425 NA 140 137 138 139 137 138 K 4.8 4.8 5.5* 4.7 5.3* 4.1 CL 110 108 109 108 105 106 CO2 24 25 25 25 25 27 GAP 6 4 4 6 7 5 CR 1.92* 1.80* 1.59* 1.71* 1.64* 1.37* GFR 27* 29* 34* 31* 33* 40* GLU 121* 168* 101* 148* 122* 84 CA 8.5 8.7 8.3* 8.4* 8.4* 8.6 MG 2.0 2.0 1.8 -- 1.8 1.7 PO4 4.8* -- 5.0* -- -- 4.8* ALBUMIN 2.9* -- 2.9* -- -- 3.1* ALKPHOS 72 -- 74 -- -- 78 AST 25 -- 26 -- -- 33 ALT 13 -- 12 -- -- 16 TOTBILI 1.4* -- 1.2 -- -- 1.4* RADIOLOGY: Pertinent radiology reviewed. [facility] Hematology Oncology fellow, PGY4 [facility] Pager:[phone] * Wicho Azar MD - 06/27/2018 11:44 AM CDT Associated Order(s): CONSULT ENDOCRINOLOGY PHYSICIAN General Consult Note Admission Date: 06/24/2018 LOS: 3 days Reason for Consult: Abnormal cosyntropin stim Consult type: Opinion Assessment/Plan Abnormal cosyntropin stim test. It is difficult to interpret a random cortisol or a cosyntropin stim test in the ICU setting in addition to that it is more difficult in this patient due to the fact she has liver disease with a low albumin. This lowers the total cortisol being measured. The patient currently is not hypotensive nor has she been on vasopressor. I would recommend monitoring. If the patient becomes hypotensive hydrocortisone 50 mg IV tid for three days could be reasonable. It is best to repeat the stim as an outpatient. As per the patient and the family she has not had any recent exposure to steroids. She does have a diagnosis of ITP but not had exposure for year and half. Of note she did have a CT scan as an outpatient. There could be remote chance of having bilateral adrenal hemorrhage. Please review the outside CT scan to evaluate the adrenal structure. BP: (102-139)/(51-72) Temp: [36.6 C (97.9 F)-36.8 C (98.3 F)] Pulse: [67-77] Respirations: [20 PER MINUTE] SpO2: [93 %-100 %] O2 Delivery: Nasal Cannula Results for NIECY RICHEY ( ) as of 06/27/2018 11:52 Ref. Range 06/26/2018 08:23 06/26/2018 09:34 06/26/2018 10:10 Adrenocorticotropic Hormone Unknown <5.0... (L) Cortisol 30 Min Latest Units: ug/dL 7.2 Cortisol 60 Min Latest Units: ug/dL 9.9 Cortisol Baseline Latest Units: ug/dL 1.1 We will sign off reconsult if there is a change in patients status Spoke with primary attending. History of Present Illness: Niecy Richey is a 52 y.o. female Majority of the HPI is from chart review Ms. Richey is critically ill with acute on chronic hypercarbic and hypoxemic respiratory failure, MARIN, and mixed acidosis in the setting of ESLD. She is accepted in transfer from [place] after admission there on 06/18/18 from SNF/ inpatient rehab with acute on chronic respiratory failure thought secondary to pneumonia, requiring intubation. Hospital course notable for post-extubation BiPAP-dependence with poor tolerance, persistent mixed acidosis (7.26/57/72/20) treated with bicarb gtt, and MARIN (Cr peak 2.1, baseline 0.7). She is subsequently transferred here for further workup and management. 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 Of note, she was hospitalized at [facility] 06/07/18-06/15/18 with lethargy and URI symptoms-- hospital course notable for empiric treatment of CAP and SBP (all cultures negative), PSE , back pain (received trigger point injections), and discharge to inpatient rehab for deconditioning. GI ESLD 2/2 MCGOWAN & HCV - not currently an OLT candidate 2/2 BMI - HCV s/p treatment w/ interferon and ribavirin in 2012. SVR achieved. Past Medical History: Diagnosis Date Chronic respiratory failure with hypoxia, on home oxygen therapy (HCC) 2L NC w/ exertion DM (diabetes mellitus) (HCC) End stage liver disease (HCC) 06/10/2018 GERD (gastroesophageal reflux disease) History of hepatitis C 04/18/2017 tx w/ ribavirin and IFN HTN (hypertension) MCGOWAN (nonalcoholic steatohepatitis) 06/10/2018 Neuropathy S/P splenectomy 06/10/2018 Thrombocytopenia (HCC) Type 2 diabetes mellitus with complication (HCC) 08/21/2016 Past Surgical History: Procedure Laterality Date HX HYSTERECTOMY SPLENECTOMY Social History Socioeconomic History Marital status: Spouse name: Not on file Number of children: Not on file Years of education: Not on file Highest education level: Not on file Occupational History Not on file Social Needs Financial resource strain: Not on file Food insecurity: Worry: Not on file Inability: Not on file Transportation needs: Medical: Not on file Non-medical: Not on file Tobacco Use Smoking status: Never Smoker Smokeless tobacco: Never Used Substance and Sexual Activity Alcohol use: No Drug use: No Sexual activity: Not on file Lifestyle Physical activity: Days per week: Not on file Minutes per session: Not on file Stress: Not on file Relationships Social connections: Talks on phone: Not on file Gets together: Not on file Attends moravian service: Not on file Active member of club or organization: Not on file Attends meetings of clubs or organizations: Not on file Relationship status: Not on file Intimate partner violence: Fear of current or ex partner: Not on file Emotionally abused: Not on file Physically abused: Not on file Forced sexual activity: Not on file Other Topics Concern Not on file Social History Narrative Not on file Family history reviewed; non-contributory Allergies: Dilaudid [hydromorphone]; Metformin; and Reglan [metoclopramide] Scheduled Meds: amitriptyline (ELAVIL) tablet 25 mg 25 mg Oral QHS duloxetine DR (CYMBALTA) capsule 30 mg 30 mg Oral QDAY eltrombopag (PROMACTA) tab 100 mg [Patient's Own Medication] 100 mg Oral QDAY() enoxaparin (LOVENOX) syringe 40 mg 40 mg Subcutaneous QDAY(21) insulin aspart U-100 (NOVOLOG FLEXPEN) injection PEN 0-6 Units 0-6 Units Subcutaneous ACHS (22) insulin aspart U-100 (NOVOLOG FLEXPEN) injection PEN 8 Units 8 Units Subcutaneous TID w/ meals insulin glargine (LANTUS SOLOSTAR, BASAGLAR) injection PEN 40 Units 40 Units Subcutaneous QHS(22) lactulose oral solution 20 g 20 g Oral TID metoprolol tartrate (LOPRESSOR) tablet 12.5 mg 12.5 mg Oral BID nystatin (NYSTOP) topical powder Topical BID rifAXIMin (XIFAXAN) tablet 550 mg 550 mg Oral BID Continuous Infusions: furosemide (LASIX) 500 mg in 50 mL IV drip syr (max conc) 10 mg/hr ( 0815) PRN and Respiratory Meds:acetaminophen Q6H PRN, alteplase PRN (Concession Attendant from Rx) , oxyCODONE Q6H PRN, tiZANidine Q8H PRN Review of Systems: All other systems reviewed and are negative. Vital Signs: Last Filed in 24 hours Vital Signs: 24 hour Range BP: 102/65 (06/28 799) Temp: 36.6 C (97.9 F) (06/28 799) Pulse: 67 (06/28 0700) Respirations: 20 PER MINUTE (06/28 799) SpO2: 94 % (06/27 1100) O2 Delivery: Nasal Cannula (06/27 1099) SpO2 Pulse: 59 (04/09 1100) BP: (102-139)/(51-72) Temp: [36.6 C (97.9 F)-36.8 C (98.3 F)] Pulse: [67-77] Respirations: [20 PER MINUTE] SpO2: [93 %-100 %] O2 Delivery: Nasal Cannula Physical Exam: Physical Exam: Gen: A&O x 3 in nad HEENT: PERRL, EOMI, Neck: No TM nor thyroid nodularity CV: RRR Pulm: Coarse BS throughout anterior armendariz Abd: Distended, NTTP, hypoactive BS; no palpable HSM. Ext: Trace edema; no sores; no dystrophic nails Neuro: Sensation grossly intact BLE Psych: Mood upbeat and affect appropriate Skin: No rash Lab/Radiology/Other Diagnostic Tests: 24-hour labs: Results for orders placed or performed during the hospital encounter of (from the past 24 hour(s)) POC GLUCOSE Collection Time: 06/26/18 12:29 PM Result Value Ref Range Glucose, POC 169 (H) 70 - 100 MG/DL BASIC METABOLIC PANEL Collection Time: 06/26/18 2:30 PM Result Value Ref Range Sodium 140 137 - 147 MMOL/L Potassium 4.6 3.5 - 5.1 MMOL/L Chloride 109 98 - 110 MMOL/L CO2 23 21 - 30 MMOL/L Anion Gap 8 3 - 12 Glucose 198 (H) 70 - 100 MG/DL Blood Urea Nitrogen 51 (H) 7 - 25 MG/DL Creatinine 1.85 (H) 0.4 - 1.00 MG/DL Calcium 8.9 8.5 - 10.6 MG/DL eGFR Non 28 (L) >60 mL/min eGFR 34 (L) >60 mL/min POC GLUCOSE Collection Time: 06/26/18 5:19 PM Result Value Ref Range Glucose, POC 141 (H) 70 - 100 MG/DL POC GLUCOSE Collection Time: 06/26/18 9:20 PM Result Value Ref Range Glucose, POC 177 (H) 70 - 100 MG/DL CBC AND DIFF Collection Time: 06/27/18 4:07 AM Result Value Ref Range White Blood Cells 24.1 (H) 4.5 - 11.0 K/UL RBC 2.41 (L) 4.0 - 5.0 M/UL Hemoglobin 7.0 (L) 12.0 - 15.0 GM/DL Hematocrit 21.6 (L) 36 - 45 % MCV 89.6 80 - 100 FL MCH 28.9 26 - 34 PG MCHC 32.2 32.0 - 36.0 G/DL RDW 22.1 (H) 11 - 15 % Platelet Count 91 (L) 150 - 400 K/UL MPV 16.1 (H) 7 - 11 FL Neutrophils 58 41 - 77 % Lymphocytes 18 (L) 24 - 44 % Monocytes 17 (H) 4 - 12 % Eosinophils 6 (H) 0 - 5 % Basophils 1 0 - 2 % Absolute Neutrophil Count 14.20 (H) 1.8 - 7.0 K/UL Absolute Lymph Count 4.40 1.0 - 4.8 K/UL Absolute Monocyte Count 4.00 (H) 0 - 0.80 K/UL Absolute Eosinophil Count 1.40 (H) 0 - 0.45 K/UL Absolute Basophil Count 0.20 0 - 0.20 K/UL PROTIME INR (PT) Collection Time: 06/27/18 4:07 AM Result Value Ref Range INR 1.5 (H) 0.8 - 1.2 PTT (APTT) Collection Time: 06/27/18 4:07 AM Result Value Ref Range APTT 33.6 24.0 - 36.5 SEC COMPREHENSIVE METABOLIC PANEL Collection Time: 06/27/18 4:07 AM Result Value Ref Range Sodium 140 137 - 147 MMOL/L Potassium 4.8 3.5 - 5.1 MMOL/L Chloride 110 98 - 110 MMOL/L Glucose 121 (H) 70 - 100 MG/DL Blood Urea Nitrogen 53 (H) 7 - 25 MG/DL Creatinine 1.92 (H) 0.4 - 1.00 MG/DL Calcium 8.5 8.5 - 10.6 MG/DL Total Protein 5.5 (L) 6.0 - 8.0 G/DL Total Bilirubin 1.4 (H) 0.3 - 1.2 MG/DL Albumin 2.9 (L) 3.5 - 5.0 G/DL Alk Phosphatase 72 25 - 110 U/L AST (SGOT) 25 7 - 40 U/L CO2 24 21 - 30 MMOL/L ALT (SGPT) 13 7 - 56 U/L Anion Gap 6 3 - 12 eGFR Non 27 (L) >60 mL/min eGFR 33 (L) >60 mL/min MAGNESIUM Collection Time: 06/27/18 4:07 AM Result Value Ref Range Magnesium 2.0 1.6 - 2.6 mg/dL PHOSPHORUS Collection Time: 06/27/18 4:07 AM Result Value Ref Range Phosphorus 4.8 (H) 2.0 - 4.5 MG/DL POC GLUCOSE Collection Time: 06/27/18 6:09 AM Result Value Ref Range Glucose, POC 140 (H) 70 - 100 MG/DL POC GLUCOSE Collection Time: 06/27/18 11:41 AM Result Value Ref Range Glucose, POC 160 (H) 70 - 100 MG/DL No pertinent radiology. Wicho Azar MD Pager [phone] * Brian Guzman RN - 06/26/2018 2:49 PM CDT Associated Order(s): CONSULT NURSING PAIN MANAGEMENT Nursing Pain Management - Initial Consult Pt. Name: Niecy Richey Admit Date: 06/24/2018 Room: [place] [address] Reason for consult, "complex pain patient" Communication: Reviewed chart and consult request prior to interview with patient. Communicated with bedside nurse. Suggestions to Consider: Primary team is responsible for entering orders. Discontinue MARINE ENGINE MECHANIC medications Carisoprodol - not on [facility] MARINE ENGINE MECHANIC sheet but on [facility]-Tracs and SNF sheet Cylcobenzaprine - has no indication for spasticity Fluoxetine - low dose and Ms. Richey would benefit from dual action Duloxetine Shared with family in the future there would be a potential in transitioning from gabapentin to pregablin in attempts to find better neuropathic efficacy if desired pain level has not yet been reached. But would not suggest at this time with the many changes already being suggested. Duloxetine DR 30 mg PO daily, first dose now, next tomorrow 0900 - SSRI for depression and anxiety, NRI for pain modulation Tizanidine 4 mg PO q 8 hours PRN muscle spasms - indication for muscle spasticity Restart amitriptyline 25 mg PO q HS - most likely used for multimodal neuropathic modulation. SS theoretically possible but rarely seen in these low doses. Patient has tolerated Fluoxetine concurrently with no reported effects. > Patient not using opioids nor wanting to. - Patient benefiting from heating pad. Cautious practice would be to not allow for more than 20 minutes on and at least 20 minutes off. Most likely patient noting benefit from concurrent use. Good skin integrity assessment should be a priority. - Patinet stating that her goal is to get up and ambulate and have a moderately normal life. >>> Patient being followed by PM&R Dr. Johnson Baron. Patient set to return on July 21. Patient either being considered for epidural steroid injections (HEIDI) or ablation therapy, both have been discussed in clinic notes. -Patient has had trigger point injections (TPI) during last hospital stay by Dr. Wale Yoo of [facility]. - could potentially try to coordinate care with Dr. Baron and if anesthesia pain team could perform any therapies while she is admitted. Platelet count has been a barrier in the past but currently is 95K. Anticipated D/C Planning: Non-pharmacological interventions. Multi-modal oral pain regimen. Developing new multimodal pain regimen. 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 Pt has been admitted to transferring hospital for ~1 week with pneumonia requiring intubation, ultimately weaned to 2L NC. Acidosis persists, despite bicarb gtt. Patient states that her pain is chronic and has not changed for a long time. Pain is both from lower back pain and uncontrolled spasms. Pain is made better with positioning in chair and or bed in almost a supine position. Pain is made worse with activity such as sitting in an upright position and or ambulating. As seen above patient is being followed by PM&R for significant lower back dysfunction with plan of HEIDI and even possible ablation. Ms. Richey does not remember Dr. Baron speaking to her about the possibility of an implantable pumps for the delivery of baclofen and or opioids nor does she remember talk of neuro-stimulation. All could be future interventions to help her back dysfunction. She repeated tells me that she is having spasms and even twice while I was in the room jumped in pain. Her response and description is that of musculoskeletal spasms. However she has no medication scheduled that has an indication for muscle spasms. In addition she shares with me that her debility is depressing and she feels down. Her nurse shares with me that the patient has been tearful and down during some of her interactions with Ms. Richey. She is only on 20 mg of fluoxetine. Now would be an opportune time to transition from a single SSRI action to a SSNRI dual action medication to also help with pain control. Suggest discontinuing fluoxetine and begin Duloxetine DR at 30 mg. As well suggest discontinuing cyclobenzaprine muscle relaxant and start tizanidine 4 mg every 8 hours as needed for spasticity. Other suggestions include restarting amitriptyline and discontinuing carisoprodol, cyclobenzaprine, and fluoxetine from [employer]CH[employer]IC medication list. Thank you for allowing our service to participate in the care of this patient. Please page with questions/concerns, team pager [phone]. Brian Guzman, MSN, RN- Clinical Nurse Coordinator Pain Management [phone] Current Medication Regimen: Current Facility-Administered Medications: acetaminophen (TYLENOL) tablet 650 mg, 650 mg, Oral, Q6H PRN, Beck Chaidez MD, 650 mg at 06/26/18 1229 cyclobenzaprine (FLEXERIL) tablet 10 mg, 10 mg, Oral, TID PRN, eBck Chaidez MD, 10 mg at 06/26/18 1229 eltrombopag (PROMACTA) tab 100 mg [Patient's Own Medication], 100 mg, Oral, QDAY(), Beck Chaidez MD, 100 mg at 06/26/18611 enoxaparin (LOVENOX) syringe 40 mg, 40 mg, Subcutaneous, QDAY(21), Lupillo Coto MD, 40 mg at 06/25/182004 furosemide (LASIX) injection 80 mg, 80 mg, Intravenous, BID(-), Ed Escalante MD insulin aspart U-100 (NOVOLOG FLEXPEN) injection PEN 0-6 Units, 0-6 Units, Subcutaneous, ACHS (22), Lupillo Coto MD insulin aspart U-100 (NOVOLOG FLEXPEN) injection PEN 8 Units, 8 Units, Subcutaneous, TID w/ meals, Lupillo Coto MD, 8 Units at 06/26/18 1424 insulin glargine (LANTUS SOLOSTAR, BASAGLAR) injection PEN 40 Units, 40 Units, Subcutaneous, QHS(22), Lupillo Coto MD, 40 Units at 06/25/184 lactulose oral solution 20 g, 20 g, Oral, TID, Lupillo Coto MD, 20 g at 06/26/18 1006 nystatin (NYSTOP) topical powder, , Topical, BID, Lupillo Coto MD oxyCODONE (ROXICODONE, OXY-IR) tablet 5-10 mg, 5-10 mg, Oral, Q6H PRN, Pablito Payne MD, 10 mg at 06/26/18 1229 piperacillin/tazobactam (ZOSYN) 3.375 g in sodium chloride 0.9% (NS) 100 mL IVPB (MB+), 3.375 g, Intravenous, Q6H*, Lupillo Coto MD, 3.375 g at 11/06 1422 rifAXIMin (XIFAXAN) tablet 550 mg, 550 mg, Oral, BID, Lupillo Coto MD , 550 mg at 06/26/18 0816 Prior to Admission Analgesic Regimen: Gabapentin as described 300-600-600 Cyclobenzaprine as needed for spasms Amitriptyline 25 mg nightly Recent Prescription History: K-Tracs revealing recent prescription of Carisoprodol and past prescriptions of gabapentin, noting else recently Assessment: (W) Words to describe pain: Tightness, spasms, pain (I) Intensity of pain: At rest mild, with movement 7-8 Patient's personal pain goal: Able to ambulate with mild pain (L) Location of pain: Lower back (D) Duration of pain: intermittent (A) Aggravating/Alleviating factors: Movement / rest Last Bowel Movement: 06/25/2018 Opioid Calculations: Date: 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[employer]IC No opioids Total oral morphine equivalent ~ zero Date: 06/25/2018 Oxycodone 10 mg Morphine IV 2 mg ~ 6 mg Total oral morphine equivalent ~ 16 mg Vitals: 06/25/18 2156 06/26/18 0400 06/26/18 0800 06/26/18 0832 BP: 116/58 116/58 116/58 Pulse: 68 Temp: 36.8 C (98.3 F) 36.5 C (97.7 F) SpO2: 92% 95% Weight: (!) 145.6 kg (321 lb) Height: 172.7 cm (68") Allergies Allergen Reactions Dilaudid [Hydromorphone] UNKNOWN Pt reports dilaudid caused her to code Metformin UNKNOWN Reglan [Metoclopramide] UNKNOWN Basic Metabolic Profile Lab Results Component Value Date/Time NA 139 06/26/2018 03:41 AM K 4.6 06/26/2018 03:41 AM CL 110 06/26/2018 03:41 AM CO2 23 06/26/2018 03:41 AM GAP 6 06/26/2018 03:41 AM Lab Results Component Value Date/Time BUN 52 (H) 06/26/2018 03:41 AM CR 1.95 (H) 06/26/2018 03:41 AM GLU 168 (H) 06/26/2018 03:41 AM GLU 116 (H) 06/08/2018 04:03 PM `Hemogram Lab Results Component Value Date/Time WBC 27.0 (H) 06/26/2018 03:41 AM RBC 2.62 (L) 06/26/2018 03:41 AM HGB 7.5 (L) 06/26/2018 03:41 AM HCT 23.6 (L) 06/26/2018 03:41 AM MCV 90.0 06/26/2018 03:41 AM MCH 28.7 06/26/2018 03:41 AM MCHC 31.9 (L) 06/26/2018 03:41 AM RDW 22.1 (H) 06/26/2018 03:41 AM PLTCT 95 (L) 06/26/2018 03:41 AM MPV 13.1 (H) 06/26/2018 03:41 AM * Alexander Bcukner MD - 06/26/2018 1:37 PM CDT Associated Order(s): CONSULT CARDIOLOGY PHYSICIAN Teaching Physician Attestation: I have personally interviewed and examined the patient, have reviewed the documentation, and agree with the assessment and plan of the DAYCARE PROVIDER. I have edited and added to the report for content and clarity with my changes in bold italics and/or strikeout. Her examination is consistent with hypervolemia, and she estimates about 40 pounds of weight gain over the past few months. I reviewed the images of her echocardiography, which demonstrate mitral annular calcification without significant restriction of anterior mitral leaflet motion. Her mean transmitral gradient is around 6 mmHg, consistent with mild or mild to moderate MS. We discussed that mitral stenosis is not a significant issue at this point, and would not be a major factor in her hypervolemia. Aside from perhaps continuing beta-chelsie therapy as long as blood pressure permits, which will hopefully help increase diastolic filling time (and may also help to lower portal pressures), the mitral stenosis does not require specific treatment at this time. I discussed with the primary team that an IV Lasix infusion would be our recommendation for management of her volume excess a 60 or 80 mg IV bolus could be given followed by an infusion at a rate of 10 mg/h with a goal for at least 2 L of net negative fluid balance per 24 hours. I had a long discussion with the patient and her parents at the bedside and all questions were answered. Alexander Buckner M.D. Heart Failure Consult NAME:Niecy Richey :1965 AGE: 52 y.o. ADMISSION DATE: 06/24/2018 DAYS ADMITTED: LOS: 2 days Active Problems: End stage liver disease (HCC) Metabolic acidosis Acidosis Consulted for: "Pt volume overloaded with resolving acute hypoxic resp failure , new Mitral stenosis noted on echo." 52 yo with PMHx of chronic respiratory failure on 2 L of O2 per NC with exertion , hypertension, ESLD 2/2 Hep C & MCGOWAN, and ITP s/p splenectomy who was transferred to [facility] from outside facility rehab on 06/24/18 for treatment of hypoxic respiratory failure and persistent metabolic acidosis. The patient had been admitted at [facility] from 06/07 to 06/15/18 for treatment of CAP with acute hypoxic respiratory failure and ESLD with hepatic encephalopathy. Once stable, she was discharged to [facility] inpatient rehab for ongoing PT/OT. Per patient and family, on 06/23 the patient began to retain fluid and gained 11# in one day. She developed SILVERMAN, weight gain, BLEE, abdominal distension, and lower extremity pain 2/2 bilateral swelling. An echocardiogram was done 06/26/18 revealing LVEF 70 %, moderate LA dilation, IVC >15, mild to moderate stenosis that appeared mildly more advanced than previous echo in 08/2017, and severe mitral annular calcification. Cardiology consulted to further evaluate patient. Recommendation Today: 1. Patient is hypervolemic and likely requires 30-40 lbs of fluid removal. Recommend aggressive diuresis - would give IV bolus of Lasix 60 mg x1 and then starting Lasix drip at 10 mg/hour. Creatinine is elevated with baseline at 0.8- 1.0. Anticipate improving with diuresis however will closely monitor. 2. Patient's mitral valve stenosis is not felt to be driving force behind fluid volume over load. Will continue to monitor in the out patient setting. 3. MARINE ENGINE MECHANIC Toprol-XL held per primary team. 4. Need daily Standing weights and strict I/Os. 5. BMP twice a day. Magnesium level daily. Keep Potassium greater than 4.0 and Magnesium greater than 2.0. 6. 2000mg sodium dietary restriction. 7. Fluid Restriction:1.5 8. Goal output: net neg 2L/24 hour 9. Daily standing scale weight. Goal Dry Weight: needs established. 10. Follow up appointment with a member of the HF team or PCP within 7 calendar days of discharge. Patient seen and plan discussed with Dr. Buckner. Plan discussed with primary team. GISELA Chong (pager [phone]) Telemetry: , safia PAC 70s EKG: SR - no sign of acute ischemia. Assessment: Acute on chronic hypoxic/hypercarbic respiratory failure 06/07 - 06/15: treated for CAP at [facility] 06/15 - 06/18: inpatient rehab in [place] 06-18 - 06/24: admitted to ICU for respiratory failure, treated for HCAP with zosyn , escalated to meropenem (unclear why the escalation). Required intubation ~72h at OSH, now down to 2L NC. ABG 7.34/38/76 on 2L NC on 06/24 CXR on arrival with volume overloaded appearance. Primary currently questioning FVOL vs HCAP vs Multi-factorial. Procalcitonin 0.17 on 06/24, was 0.09 in 06/08/18. Patient being treated with Zosyn, was previously on vancomycin. Persistent Leukocytosis WBC 27.0 Patient is afebrile with stable BP and HR 70s. Peripheral smear ordered by primary team to evaluate Acute diastolic HFpEF, EF: 70%. Likely NICM. Major Complications or Comorbidities ([facility]): acute respiratory failure NYHA functional class III (marked limitation of physical activity - comfortable at rest, but less than ordinary activity causes symptoms of HF e.g., getting dressed or standing from a sitting position), ACC Stage C (structural heart disease with prior or current symptoms of HF). She presents with signs of hypervolemia without signs of low flow state. Admission BNP: 967 Chest x ray 06/24/18: Findings consistent with CHF/volume overload including cardiomegaly, pulmonary vascular congestion and small to moderate left pleural effusion. Echocardiogram 06/26/18 revealed LVEF 70%, normal size and shape LV, concentric remodeling, unable to assess diastolic function. RV normal size and EF. LA moderately dilated. RA normal size. IVC >15. Calcified thickening of mitral leaflets. Mild to moderate stenosis which appears increased in comparison to previous echo in 08/2016. There is trace MR and severe mitral annular calcification. Mild TR. 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 She denies formal cardiac work up in the past - no stress test, LHC, etc. Intake/Output: 1.3 L of urine overnight, -410 mL in 24 hours, +45 mL total. Goal Dry Weight: Need to establish. May - June 2017 patient weighed 282#. Made to October 2017 patient weighed 271-274#. May 2018 patient weighed 283#. Admission weight 321# Vitals: 06/24/18 2145 06/26/18 0832 Weight: (!) 146 kg (321 lb 14 oz) (!) 145.6 kg (321 lb) Diuretic Therapy Prior to admission dose Given on admission Daily Dosing 06/25 IV Lasix 40 mg twice daily 06/26 IV lasix 40 mg x1, increased to 80 mg bid starting with afternoon dose GDMT MARINE ENGINE MECHANIC Changes BB recently was started on Toprol-XL 100 mg daily, held upon admission. ACEI/ARB/ARNI recently on lisinopril, however, d/c and started on BB/ Aldosterone Antagonist Hydralazine/Nitrate Ivabradine HRMT Anticoagulation for Afib/flutter Mild to moderate mitral valve stenosis Severe mitral annular calcification Echo 08/30/16 revealed severe mitral annular calcification without evidence of significant stenosis or regurgitation. Most recent echo 06/26/18: Calcific thickening of mitral leaflets. Mild to moderate stenosis. Mean gr 7 mm Hg @ HR 67 bpm. Trace regurgitation. There is severe mitral annular calcification. Mitral valve disease not felt to be a driving force behind patient's fluid retention or symptoms of heart failure at this time. 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 BP currently primarily 110-120s/50s MARIN Admission creatinine 1.72 Baseline creatinine 0.8-1.0, currently 1.95 DMII - insulin dependent, HgA1C 5.8. 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 Per GI/Hepatology note on 06/09/18 during previous hospitalization, patient recommended to get EGD done in outpatient setting as she was due for a screening. Hx of ITP s/p splenectomy Platelets 95. Patient denies recent bleeding issues. Chronic lower back and right hip pain Primary managing, pain management consulted. Questionable NABIL -no history of sleep study. 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 The patient had been admitted at [facility] from 06/07 to 06/15/18 for treatment of CAP with acute hypoxic respiratory failure and ESLD with hepatic encephalopathy. Once stable, she was discharged to [facility] inpatient rehab for ongoing PT/ OT. Per patient and family, on 06/23 the patient began to retain fluid and gained 11# in one day. She developed SILVERMAN, weight gain, BLEE, abdominal distension, and lower extremity pain 2/2 bilateral swelling. An echocardiogram was done 06/26/18 revealing LVEF 70%, moderate LA dilation, IVC >15, mild to moderate stenosis that appeared mildly more advanced than previous echo in 08/2017, and severe mitral annular calcification. Cardiology consulted to further evaluate patient. Patient reports improvement in heart failure symptoms with IV diuresis. She admits to decreased abdominal distention. She continues to struggle with lower extremity edema. Patient history of cardiac disease. Additionally she denies any known family history of cardiac disease. She denies smoking or illicit drug use. She reports very rare occasions of alcohol use. She currently denies chest pain, palpitations, SOA, PND, dizziness, light headedness, syncope, diaphoresis, N/V/D, chills, or fever. Review of Systems: A comprehensive review of systems was obtained and is negative aside from what is listed above in HPI. Past Medical History: Diagnosis Date Chronic respiratory failure with hypoxia, on home oxygen therapy (HCC) 2L NC w/ exertion DM (diabetes mellitus) (HCC) End stage liver disease (HCC) 06/10/2018 GERD (gastroesophageal reflux disease) History of hepatitis C 04/18/2017 tx w/ ribavirin and IFN HTN (hypertension) MCGOWAN (nonalcoholic steatohepatitis) 06/10/2018 Neuropathy S/P splenectomy 06/10/2018 Thrombocytopenia (HCC) Type 2 diabetes mellitus with complication (HCC) 08/21/2016 Past Surgical History: Procedure Laterality Date HX HYSTERECTOMY SPLENECTOMY No family history on file. Social History Socioeconomic History Marital status: Spouse name: Not on file Number of children: Not on file Years of education: Not on file Highest education level: Not on file Occupational History Not on file Tobacco Use Smoking status: Never Smoker Smokeless tobacco: Never Used Substance and Sexual Activity Alcohol use: No Drug use: No Sexual activity: Not on file Other Topics Concern Not on file Social History Narrative Not on file Objective: Allergies: Allergies Allergen Reactions Dilaudid [Hydromorphone] UNKNOWN Pt reports dilaudid caused her to code Metformin UNKNOWN Reglan [Metoclopramide] UNKNOWN Medications: Scheduled Meds: eltrombopag (PROMACTA) tab 100 mg [Patient's Own Medication] 100 mg Oral QDAY() enoxaparin (LOVENOX) syringe 40 mg 40 mg Subcutaneous QDAY(21) furosemide (LASIX) injection 80 mg 80 mg Intravenous BID(9-17) insulin aspart U-100 (NOVOLOG FLEXPEN) injection PEN 0-6 Units 0-6 Units Subcutaneous ACHS (22) insulin aspart U-100 (NOVOLOG FLEXPEN) injection PEN 8 Units 8 Units Subcutaneous TID w/ meals insulin glargine (LANTUS SOLOSTAR, BASAGLAR) injection PEN 40 Units 40 Units Subcutaneous QHS(22) lactulose oral solution 20 g 20 g Oral TID nystatin (NYSTOP) topical powder Topical BID piperacillin/tazobactam (ZOSYN) 3.375 g in sodium chloride 0.9% (NS) 100 mL IVPB (MB+) 3.375 g Intravenous Q6H* rifAXIMin (XIFAXAN) tablet 550 mg 550 mg Oral BID Continuous Infusions: PRN and Respiratory Meds:acetaminophen Q6H PRN, cyclobenzaprine TID PRN, oxyCODONE Q6H PRN Medications Prior to Admission Medication Sig Dispense Refill Last Dose acetaminophen (TYLENOL) 325 mg tablet Take 650 mg by mouth daily as needed for Pain. Max of 4,000 mg of acetaminophen in 24 hours. Past Week amitriptyline (ELAVIL) 25 mg tablet Take 25 mg by mouth at bedtime daily. 06/07/2018 bumetanide (BUMEX) 1 mg tablet Take 1 mg by mouth daily. 06/07/2018 eltrombopag (PROMACTA) 50 mg tablet Take two tablets daily on an empty stomach (at least 1 hour before or 2 hours after food). Separate antacids by at least 4 hours. 60 tablet 3 06/06/2018 fluoxetine (PROZAC) 20 mg capsule Take 20 mg by mouth daily. Past Week gabapentin (NEURONTIN) 300 mg capsule Take 1 capsule by mouth in the morning , two capsules in the afternoon and two capsules in the evening as needed. Past Week insulin glargine (LANTUS SOLOSTAR, BASAGLAR) 100 unit/mL (3 mL) injection PEN Inject forty Units under the skin at bedtime daily. Patient was taking 50 U BID prior to hospitalization. She is needing significantly less in the hospital off steroids and on diabetic diet. Indications: type 2 diabetes mellitus insulin lispro(+) (HUMALOG KWIKPEN INSULIN) 100 unit/mL injection PEN Inject eight Units to thirteen Units under the skin three times [...] give additional 5 units if BS >400 (Patient taking differently: Inject 18 Units under the skin three times daily [...] Please give additional 5 units if BS >400) 45 mL lactulose 10 gram/15 mL oral solution Take 20 g by mouth four times daily. Past Week lisinopril (PRINIVIL; ZESTRIL) 10 mg tablet Take 1 tablet by mouth daily. 90 tablet 3 06/07/2018 loratadine (CLARITIN) 10 mg tablet Take 10 mg by mouth every morning. nystatin (NYSTOP) 100,000 unit/g topical powder Apply under breast. 0 rifAXIMin (XIFAXAN) 550 mg tablet Take 1 Tab by mouth twice daily. Indications: HEPATIC ENCEPHALOPATHY 60 Tab 11 06/05/2018 Vital Signs: Last Filed Vital Signs: 24 Hour Range BP: 116/58 (06/27 831) Temp: 36.5 C (97.7 F) (06/27 799) Pulse: 68 (06/27 799) SpO2: 95 % (06/27 799) O2 Delivery: Nasal Cannula (06/27 799) SpO2 Pulse: 68 (06/27 799) Height: 172.7 cm (5' 8") (06/27 831) BP: (109-116)/(55-58) Temp: [36.5 C (97.7 F)-36.8 C (98.3 F)] Pulse: [68] SpO2: [92 %-96 %] O2 Delivery: Nasal Cannula Intensity Pain Scale (Self Report): 6 (06/26/18 0800) Wt Readings from Last 10 Encounters: 06/26/18 (!) 145.6 kg (321 lb) 06/07/18 128.4 kg (283 lb 1.1 oz) 10/21/17 124.6 kg (274 lb 12.8 oz) 08/16/17 122.9 kg (271 lb) 08/05/17 123.3 kg (271 lb 12.8 oz) 07/06/17 127.9 kg (282 lb) 06/03/17 127.9 kg (282 lb) 06/03/17 127.9 kg (282 lb) 01/03/17 128.5 kg (283 lb 3.2 oz) 12/24/16 128.5 kg (283 lb 3.2 oz) Physical Exam: General Appearance: obese, appears stated age, no acute distress Neck Veins: Difficult to assess due to body habitus. Respiratory Effort: breathing comfortably, no respiratory distress Auscultation/Percussion: Mild bibasilar crackles Cardiac Rhythm: regular rhythm and normal rate Cardiac Auscultation: S1, S2 present but clear splitting not heard, no rub, no S3 gallop, no S4 gallop but exam is limited by her body habitus Murmurs: Grade 2/6 systolic murmur; no definite rumbling diastolic murmur heard with limitations as above Lower Extremity Edema: 4+ lower extremity edema Abdominal Exam: soft, non-tender, non-distended, normal bowel sounds Neurologic Exam: awake, alert, conversant, appropriate, neurological assessment grossly intact and moves all extremities Agree with exam except or in addition to as noted above. Laboratory Review: CBC w diff Lab Results Component Value Date/Time WBC 27.0 (H) 06/26/2018 03:41 AM RBC 2.62 (L) 06/26/2018 03:41 AM HGB 7.5 (L) 06/26/2018 03:41 AM HCT 23.6 (L) 06/26/2018 03:41 AM MCV 90.0 06/26/2018 03:41 AM MCH 28.7 06/26/2018 03:41 AM MCHC 31.9 (L) 06/26/2018 03:41 AM RDW 22.1 (H) 06/26/2018 03:41 AM PLTCT 95 (L) 06/26/2018 03:41 AM MPV 13.1 (H) 06/26/2018 03:41 AM Lab Results Component Value Date/Time NEUT 60 06/26/2018 03:41 AM ANC 16.50 (H) 06/26/2018 03:41 AM LYMA 17 (L) 06/26/2018 03:41 AM ALC 4.50 06/26/2018 03:41 AM SIMEON 17 (H) 06/26/2018 03:41 AM AMC 4.50 (H) 06/26/2018 03:41 AM EOSA 5 06/26/2018 03:41 AM AEC 1.40 (H) 06/26/2018 03:41 AM BASA 1 06/26/2018 03:41 AM ABC 0.20 06/26/2018 03:41 AM Chemistry Lab Results Component Value Date/Time NA 139 06/26/2018 03:41 AM K 4.6 06/26/2018 03:41 AM CL 110 06/26/2018 03:41 AM CO2 23 06/26/2018 03:41 AM GAP 6 06/26/2018 03:41 AM BUN 52 (H) 06/26/2018 03:41 AM CR 1.95 (H) 06/26/2018 03:41 AM GLU 168 (H) 06/26/2018 03:41 AM GLU 116 (H) 06/08/2018 04:03 PM Lab Results Component Value Date/Time CA 8.5 06/26/2018 03:41 AM PO4 4.4 06/26/2018 03:41 AM ALBUMIN 3.1 (L) 06/26/2018 03:41 AM TOTPROT 5.7 (L) 06/26/2018 03:41 AM ALKPHOS 82 06/26/2018 03:41 AM AST 25 06/26/2018 03:41 AM ALT 15 06/26/2018 03:41 AM TOTBILI 1.5 (H) 06/26/2018 03:41 AM GFR 27 (L) 06/26/2018 03:41 AM GFRAA 32 (L) 06/26/2018 03:41 AM Renal Function Lab Results Component Value Date/Time NA 139 06/26/2018 03:41 AM K 4.6 06/26/2018 03:41 AM CL 110 06/26/2018 03:41 AM CO2 23 06/26/2018 03:41 AM GAP 6 06/26/2018 03:41 AM BUN 52 (H) 06/26/2018 03:41 AM BUN 52 (H) 06/25/2018 03:57 AM BUN 54 (H) 06/24/2018 09:51 PM Lab Results Component Value Date/Time CR 1.95 (H) 06/26/2018 03:41 AM CR 1.72 (H) 06/25/2018 03:57 AM CR 1.72 (H) 06/24/2018 09:51 PM GLU 168 (H) 06/26/2018 03:41 AM GLU 116 (H) 06/08/2018 04:03 PM CA 8.5 06/26/2018 03:41 AM PO4 4.4 06/26/2018 03:41 AM ALBUMIN 3.1 (L) 06/26/2018 03:41 AM Lipid Profile INR Lab Results Component Value Date CHOL 126 06/08/2018 TRIG 89 06/08/2018 HDL 15 (L) 06/08/2018 LDL 70 06/08/2018 VLDL 18 06/08/2018 NONHDLCHOL 111 06/08/2018 Lab Results Component Value Date INR 1.5 (H) 06/26/2018 Echocardiogram Details: Echo Results (Last 3 results in the past 3 years) Echo EF LVIDD LA Size IVS LVPW Rest PAP (06/26/18) 70 (06/26/18) 4.55 (06/26/18) 5.24 (06/26/18) 1.10 (06/26/18) 1.02 (06/26/18) 62 (08/30/16) 70 (08/30/16) 4.9 (08/30/16) 4.3 (08/30/16) 1.4 (08/30/16) 1.0 (08/20/16) 35 (08/20/16) 60 (08/20/16) 4.9 (08/20/16) 5.1 (08/20/16) 1.2 (08/20/16) 1.2 documented in this encounter Miscellaneous Notes * Case Mgmt Tamara Lopez - 07/07/2018 7:58 AM CDT Case Management Progress NoteNAME:Niecy Richey :1965 AGE: 52 y.o. ADMISSION DATE: 06/24/2018 DAYS ADMITTED: LOS: 13 days Todays Date: 07/07/2018 Plan: D.c back to [facility] today at 3:00. Pt's will provide transport to facility. Pt currently on 3 liters O2, will provide O2 for ride Call Report Number: [phone] PT/OT recommending inpatient setting Hematology Following- recommendations -continued to follow daily CBC, no indication to treat ITP unless platelets <10K , bleeding or for a procedure -Ok for discharge from o ur standpoint, planning for discharge likely tomorrow. Patient will have twice weekly CBCs to at Rehab to be faxed to Dr Moran (lab appointments arranged by primary team please). Fu appt with Dr Floyd scheduled for 08/02/18 -continue Promacta Interventions ? Support ? Info or Referral ? Discharge Planning sent updates to [facility] received message from facility liaison stating they have not received auth and will f/u with when auth is received SW sent message to admission for update on auth. Admissions stated they have not received auth Update: 2:50 SW received message from admissions stating they received auth SW hannah bedside RN and macrinadted. Pt will leave ON LICENSE OF [facility] by 4:00 SW sent message to admissions stating pt should leave around 4:00 SW faxed d.c orders to facility SW placed transfer packet in wall unit ? Medication Needs ? Financial ? Legal ? Other Disposition ? Expected Discharge Date Expected Discharge Date: 07/07/18 Expected Discharge Time: 1600 ? Transportation ? Next Level of Care (Acute Psych discharges only) ? Discharge Disposition Durable Medical Equipment No service has been selected for the patient. Destination - Selection Complete Service Provider Request Status Selected Services Address Phone Number Fax Number [facility] Selected Inpatient Rehabilitation 1 [facility] [address] [phone] Home Care No service has been selected for the patient. Dialysis/Infusion No service has been selected for the patient. * Case Mgmt DC Plan - Tamara Morejon - 07/06/2018 9:03 AM CDT Case Management Progress NoteNAME:Niecy Richey :1965 AGE: 52 y.o. ADMISSION DATE: 06/24/2018 DAYS ADMITTED: LOS: 12 days Todays Date: 07/06/2018 Plan: Anticipate d.c back to [facility] when medically stable. Pt's will provide transport to facility. Pt currently on 3 liters O2, will provide O2 for ride PT/OT recommending inpatient setting Hematology Following- recommendations -continued to follow daily CBC, no indication to treat ITP unless platelets <10K , bleeding or for a procedure -Ok for discharge from our standpoint, based on platelet count at time of discharge will recommend how often to obtain CBCs -continue Promacta -will arrange f/u with at discharge (patient requesting same day as hepatology appointment) Interventions ? Support ? Info or Referral ? Discharge Planning SW sent PT/OT a message requesting pt be seen this am for updated recommendations for insurance auth and anticipated d.c tomorrow (Tuesday) SW called pt's Marciano to discuss d/c tomorrow and O2 tank for ride. Marciano stated that he did not bring a tank but is confident that he can get a tank for d/c ride tomorrow. SW sent updates to [facility] SW received message from admissions stated they received updates and are waiting for insurance auth. SW updated that plan is for d/c tomorrow and will provide transport with O2 ? Medication Needs ? Financial ? Legal ? Other Disposition ? Expected Discharge Date Expected Discharge Date: 07/07/18 ? Transportation ? Next Level of Care (Acute Psych discharges only) ? Discharge Disposition Durable Medical Equipment No service has been selected for the patient. Destination - Selection Complete Service Provider Request Status Selected Services Address Phone Number Fax Number [facility] Selected Inpatient Rehabilitation 1 [facility] [phone] Home Care No service has been selected for the patient. Dialysis/Infusion No service has been selected for the patient. * Critical Results - Weston Russell RN - 07/05/2018 8:31 AM CDT Critical result or procedure called (document test and value, and read back): Platelets 15,000 Time MD/DAYCARE PROVIDER Notified: 829 /DAYCARE PROVIDER Name: Dr. Karlene MORROW/SALONI Response/Orders Given: No new orders * Critical Results - Ramona Ayon RN - 07/04/2018 8:40 AM CDT Critical result or procedure called (document test and value, and read back): Platelet 19 Time MD/DAYCARE PROVIDER Notified: 829 /SALONI Name: Dr. Karlene MORROW/SALONI Response/Orders Given: No new order * Case Mgmt DC Plan - Tamara Morejon - 07/04/2018 7:57 AM CDT Case Management Progress NoteNAME:Niecy Richey :1965 AGE: 52 y.o. ADMISSION DATE: 06/24/2018 DAYS ADMITTED: LOS: 10 days Todays Date: 07/04/2018 Plan: Anticipate d.c back to [facility] when medically stable. Pt's will provide transport to facility. Pt currently on 3 liters O2 PT/OT recommending inpatient setting Interventions ? Support ? Info or Referral ? Discharge Planning SONNY sent updates to [facility] SONNY sent message to PT requesting pt be seen today for updates notes as pt has not been seen by PT since 06/28 SONNY called [facility] to confirm that they are receiving updates and clinically they are willing to accept pt back at facility. Facility will need to submit for insurance auth and insurance will require updated PT/OT notes for approval. SONNY updated that MD projected d.c date is Tuesday ? Medication Needs ? Financial ? Legal ? Other Disposition ? Expected Discharge Date Expected Discharge Date: 07/07/18 ? Transportation ? Next Level of Care (Acute Psych discharges only) ? Discharge Disposition Durable Medical Equipment No service has been selected for the patient. Destination - Selection Complete Service Provider Request Status Selected Services Address Phone Number Fax Number [facility] Selected Inpatient Rehabilitation 1 [facility] [address] [phone] [facility] No service has been selected for the patient. Dialysis/Infusion No service has been selected for the patient. * Case Mgmt DC Plan - Ellyn Woodward - 07/03/2018 3:09 PM CDT Case Management Progress NoteNAME:Niecy Richey :1965 AGE: 52 y.o. ADMISSION DATE: 06/24/2018 DAYS ADMITTED: LOS: 9 days Todays Date: 07/03/2018 Plan Discharge back to [facility] in [place], [place] when medically stable; pt's will transport; possible discharge this Interventions Staffed case; pt may be ready for discharge to rehab by . SW updated admissions at [facility] ([phone]) and sent recent clinicals. Will continue to f/u and assist as needed. ? Support ? Info or Referral ? Discharge Planning ? Medication Needs ? Financial ? Legal ? Other Disposition ? Expected Discharge Date Expected Discharge Date: 07/06/18 ? Transportation ? Next Level of Care (Acute Psych discharges only) ? Discharge Disposition Ellyn Woodward, [facility] *[id number] Durable Medical Equipment No service has been selected for the patient. Destination No service has been selected for the patient. Home Care No service has been selected for the patient. Dialysis/Infusion No service has been selected for the patient. * Critical Results - Davide Villarreal RN - 07/03/2018 6:18 AM CDT Critical result or procedure called (document test and value, and read back): Platelet 16 Time MD/DAYCARE PROVIDER Notified: 0620 MD/DAYCARE PROVIDER Name: Dr. Derek MORROW/SALONI Response/Orders Given: No order. * Critical Results - Jacquie Bocnaegra RN - 07/02/2018 7:05 AM CDT Critical result or procedure called (document test and value, and read back): Platelets 16 Time MD/DAYCARE PROVIDER Notified: 06 /DAYCARE PROVIDER Name: Satnam Howard MD MD/SALONI Response/Orders Given: No new orders at this time. * Critical Results - Davide Villarreal RN - 07/01/2018 6:45 AM CDT Critical result or procedure called (document test and value, and read back): Platelet count 22 Time MD/DAYCARE PROVIDER Notified: 644 MD/DAYCARE PROVIDER Name: Dr. Lee MORROW/SALONI Response/Orders Given: No order this time * Case Mgmt DC Plan - Ellyn Woodward - 06/30/2018 10:42 AM CDT Case Management Progress NoteNAME:Niecy Richey :1965 AGE: 52 y.o. ADMISSION DATE: 06/24/2018 DAYS ADMITTED: LOS: 6 days Todays Date: 06/30/2018 Plan Discharge back to [facility] in [place], [place] when medically stable; pt's will transport Interventions Staffed with physician; unsure when pt will be ready for discharge. Sometime next week. SW sent updates to [facility] in [place], [place]. Will continue to f/u and assist as needed. ? Support ? Info or Referral ? Discharge Planning ? Medication Needs ? Financial ? Legal ? Other Disposition ? Expected Discharge Date Expected Discharge Date: 07/03/18 ? Transportation ? Next Level of Care (Acute Psych discharges only) ? Discharge Disposition Ellyn Woodward LMSW *3548 Durable Medical Equipment No service has been selected for the patient. Destination No service has been selected for the patient. Home Care No service has been selected for the patient. Dialysis/Infusion No service has been selected for the patient. * Transfer - Ed Escalante MD - 06/29/2018 2:19 PM CDT In-Hospital Transfer Note Admission Diagnosis: Admission Date: 06/24/2018 Active Hospital Problem List: Active Problems: End stage liver disease (HCC) Metabolic acidosis Acidosis Hospital Course: Ms. 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 Pt had been admitted to transferring hospital for ~1 week with pneumonia requiring intubation, ultimately weaned to 2L NC prior to transfer. On arrival, patient was noted to be significantly volume overloaded and differential for hypoxic respiratory failure was between volume overload and infectious. Procal was mildly elevated at 0.17 and she was continued on Zosyn for coverage which was completed on 06/27. Diuresis was started with IV lasix with minimal response. Echocardiogram was completed significant for mild/mod mitral stenosis. Cardiology was consulted and did not feel the stenosis was impacting her volume status, but recommended transitioning to IV lasix gtt for improved diuresis.She has been aggressively diuresed with lasix gtt and PRN diuril. Cardiology has been following daily and making recommendations on diuretic regimen on daily basis She has progressive thrombocytopenia,Her MARINE ENGINE MECHANIC promacta was held from OSH, but it is continued since patient transferred here. calculated 4T score is 3, low probability for heparin induced thrombocytopenia. Consulted hematology for further input, peripheral smear pending. She also found to have low cortisol and her cosyntropin stim test has been abnormal. We consulted endocrinology,per endo, it is difficult to interpret a random cortisol or a stim test in ICU setting If the patient becomes hypotensive hydrocortisone 50 mg IV tid for three days could be reasonable. It is best to repeat the stim as an outpatient. Patient has not had issue with low BP so far from this admission. Patient also with MARIN with cr up to 2.1, now is slowing trending down to baseline with aggressive diuresis. Significant Medication Information (to include antibiotic duration/indication, anticoagulation and steroids, etc.): Completed abx, heparin SC held due to thrombocytopenia Procedures With Dates: n/A Consults: Cardiology, Endocrinology Follow-Up Items: Hematology and cardiology recs Activity/Weight bearing status: as tolerated Nutrition: Cardiac diet Discharge Plan: When volume status are stable Ed Escalante MD Pager [phone] * Care Plan - Leah Chin MD - 06/29/2018 12:40 PM CDT Pt transferred from ICU to floor bed 4614-1. Team assignment: med A. ICU and med A teams paged to arrange checkout. Change of service order placed. * Case Mgmt DC Plan - Annalee Min - 06/28/2018 12:26 PM CDT Case Management Progress NoteNAME:Niecy Richey :1965 AGE: 52 y.o. ADMISSION DATE: 06/24/2018 DAYS ADMITTED: LOS: 4 days Todays Date: 06/28/2018 Plan Discharge planning ongoing Transfer to floor Cardiology and endo following PT/OT Anticipate discharge back to [facility] on Tuesday Patient plans for her to transport -SONNY confirmed plan with June at [facility]. They prefer a Tuesday admission since their medical pathologist (also a office machine technician) will be the preference for admitting physician. He will not return back to inpatient until Tuesday. Interventions ? Support ? Info or Referral ? Discharge Planning SW reviewed progress notes and discussed patient with ICU team and RNCM. Transfer to floor. Weaning lasix drip, managing pain, and monitoring renal functioning. PT/OT following. SONNY spoke with June at [facility] ([phone]), they plan to reaccept when patient is stable. Insurance authorization will need to be obtained. SONNY will send updates on Tuesday, as plan is anticipated to be Tuesday discharge. SW following. ? Medication Needs ? Financial BCBS ABEL ? Legal ? Other Patient currently lives in a 1 level home with her , Prashant Jules". Marciano works out of the home and is not able to provide much physical assist. Prior to last admission, patient stated she uses a RW/Wheelchair and she has a ramp built to enter her home. Patient stated she is able to drive but son stated concerns d/t to recent weakness. She had a fall recently at home. Patient uses oxygen as needed at home ([facility] ). Disposition ? Expected Discharge Date Expected Discharge Date: 07/03/18? Transportation ? Next Level of Care (Acute Psych discharges only) ? Discharge Disposition Annalee Min LMSW [phone] (phone) [phone] (pager) * Case Mgmt DC Plan - Abril Rush - 06/26/2018 3:24 PM CDT EMERGENCY OPERATOR Note: Sent placement request via Epic/Fax to the [facility] facility, per request from ROSEMARY Wolfe *[id number] [facility] [address] [place] [address] Updated [facility]. Abril Rush Electrician Bus * Case Mgmt DC Plan - Annalee Min - 06/26/2018 3:21 PM CDT Case Management Admission AssessmentNAME:Niecy Richey :1965 AGE: 52 y.o. ADMISSION DATE: 06/24/2018 DAYS ADMITTED: LOS: 2 days Todays Date: 06/26/2018 Source of Information: Patient, parents, past medical review Plan Case Management Assessment, Assist PRN with /[facility] Discharge planning ongoing Continue ICU Care PT/OT following Anticipate discharge back to [facility] mid-end of week. SW tasked EMERGENCY OPERATOR to send referral and spoke with admissions. They are hopeful to reaccept. Patient currently lives in a 1 level home with her , Prashant Jules". Marciano works out of the home and is not able to provide much physical assist. Prior to last admission, patient stated she uses a RW/Wheelchair and she has a ramp built to enter her home. Patient stated she is able to drive but son stated concerns d/t to recent weakness. She had a fall recently at home. Patient uses oxygen as needed at home ([facility] ). Patient has hx of home health through [facility] (P [phone]) but is not current with them. Patient would use there services again (received PT/OT/RN). Patient recently became disabled and receives SSDI. She states medications are affordable right now. Patient DOES NOT have SNF benefits. SW provided contact information and encouraged patient/family to call with questions or concerns. Patient Address/Phone [address] [facility] [phone] (home) Emergency Contact Extended Emergency Contact Information Primary Emergency Contact: Prashant Richey "Marciano" Address: [address] [place] [address] [facility] Mobile Relation: Spouse Secondary Emergency Contact: [place] [address] [facility] [place] Relation: Mother Healthcare Directive Healthcare Directive: No, patient does not have a healthcare directive Would patient like to fill out a (a new) Healthcare Directive?: No, patient declined Psych Advance Directive (Psych unit only): No, patient does not have a Psych Advance Directive Transportation Does the patient need discharge transport arranged?: No Transportation Name, Phone and Availability #1: Kushal Posadas ([phone]) Does the patient use Medicaid Transportation?: No Expected Discharge Date Living Situation Prior to Admission Living Arrangements Type of Residence: Home, dependent on others Living Arrangements: Children, Spouse/significant other(lives with , son , DIL (son and DIL will be moving out soon as they just bought a new house)) How many levels in the residence?: 1 Can patient live on one level if needed?: Yes Does residence have entry and/or side stairs?: Yes(2 steps, recently built a ramp) Assistance needed prior to admit or anticipated on discharge: Yes Who provides assistance or could if needed?: and son Are they in good health?: Unknown(son reports father works out of the home and can not provide much physical assist) Can support system provide 24/7 care if needed?: Maybe Level of Function Prior level of function: Needs assist with ADLs Which ADLs require assistance?: son reports recently patient has required assist on/off toilet Cognitive Abilities Cognitive Abilities: Alert and Oriented, Engages in problem solving and planning , Participates in decision making, Recognizes impact of health condition on lifestyle Financial Resources Coverage Primary Insurance: Commercial insurance(BCBS [place] ([place])) Additional Coverage: RX(currently medications are affordable) Source of Income Source Of Income: SSDI Financial Assistance Needed? N/A Psychosocial Needs Mental Health Mental Health History: No Substance Use History Substance Use History Screen: No Other N/A Current/Previous Services PCP Santiago Torres, , Pharmacy [facility] - [place], [place] - [address] [facility] [address] [facility] [address] [facility] [phone] [facility] [address] [facility] - [place], [place] - [facility] [phone] [facility] [address] [address] Durable Medical Equipment Durable Medical Equipment at home: Bedside Commode, Wheelchair (manual), Roller Walker, Oxygen Home Health Receiving home health: In the past Agency name: [facility] ([phone]) Would patient use this agency again?: Yes Hemodialysis or Peritoneal Dialysis Undergoing hemodialysis or peritoneal dialysis: No Tube/Enteral Feeds Receive tube/enteral feeds: No Infusion Receive infusions: No Private Duty Private duty help used: No Home and Community Based Services Home and community based services: No Helio White Helio White: N/A Hospice Hospice: No Outpatient Therapy PT: No OT: No DECKHAND CLAM DREDGE: No [facility] SNF: No NH: No Inpatient Rehab IPR:MARINE ENGINE MECHANIC Name of Facility: [facility] Would patient return for future services?: Yes [facility] LTACH: No Acute Hospital Stay Acute Hospital Stay: yes Was patient's stay within the last 30 days?: yes, [facility] Annalee Min LMSW [phone] (phone) [phone] (pager) * Case Mgmt DC Plan - Abril Rush - 06/26/2018 9:16 AM CDT In-Network IPR and SNF Benefits Summary for Niecy Richey Requested by: ROSEMARY Wolfe *[id number] Payor: ELOISA ROMAN / Plan: ELOISA PC OUT OF STATE / Product Type: PPO / (Phone: ) Scrum Product Owner: Automated Call Reference Number: [id number] Pt's Plan Active: Yes Effective Date: 03/21/2016 Benefit Period: Calendar Year *This Pt does not have SNF benefits IPR Benefits In-Network Copay $0 Deductible remaining $0 Coinsurance after deductible 20% Out of Pocket Max remaining $0 Abril Rush [employer] * Advanced Care Planning/Resuscitation Status - Lupillo Coto MD - 2018 2:47 AM CDT Advance Care Planning/Resuscitation Status Conversation Individuals present for advance care planning conversation: resident/fellow physician, nurse and patient Pertinent details of conversation (including direct quotes from patient or surrogate): full Outcome of conversation: Full Code Documents completed as a result of this conversation: None Other documents present, which outline patient/surrogate wishes: None Attestation? N/A documented in this encounter Plan of Treatment Order Schedule Name Priority Associated Diagnoses ONE TIME for 1 Occurrences starting 06/26/2018 until 06/26/2018, 1 completed GENERAL RAD CHEST EXTERNAL IMAGING Routine ONE TIME for 1 Occurrences starting 06/26/2018 until 06/26/2018, 1 completed GENERAL RAD CHEST EXTERNAL IMAGING Routine ONE TIME for 1 Occurrences starting 06/26/2018 until 06/26/2018, [address] CHEST EXTERNAL IMAGING Routine ONE TIME for 1 Occurrences starting 06/26/2018 until 06/26/2018, 1 completed GENERAL RAD CHEST EXTERNAL IMAGING Routine ONE TIME for 1 Occurrences starting 06/26/2018 until 06/26/2018, 1 completed GENERAL RAD CHEST EXTERNAL IMAGING Routine ONE TIME for 1 Occurrences starting 06/26/2018 until 06/26/2018, 1 completed GENERAL RAD CHEST EXTERNAL IMAGING Routine ONE TIME for 1 Occurrences starting 06/26/2018 until 06/26/2018, 1 completed GENERAL RAD CHEST EXTERNAL IMAGING Routine ONE TIME for 1 Occurrences starting 06/26/2018 until 06/26/2018, [address] HEAD EXTERNAL IMAGING Routine Twice a Week for 6 Occurrences starting 07/07/2018 until 07/08/2019 CBC AND DIFF Routine Acute on chronic respiratory failure with hypoxia and hypercapnia (HCC) Acute on chronic heart failure with preserved ejection fraction (HCC) Idiopathic thrombocytopenic purpura (HCC) Twice a Week for 6 Occurrences starting 07/07/2018 until 07/08/2019 COMPREHENSIVE METABOLIC PANEL Routine Acute on chronic respiratory failure with hypoxia and hypercapnia (HCC) Acute on chronic heart failure with preserved ejection fraction (HCC) Idiopathic thrombocytopenic purpura (HCC) documented as of this encounter Procedures Comments Procedure Name Priority Date/Time Associated Diagnosis POC GLUCOSE 07/07/2018 11:47 AM CDT POC GLUCOSE 07/07/2018 8:17 AM CDT POC GLUCOSE 07/07/2018 8:00 AM CDT PTT (APTT) Routine 07/07/2018 4:10 AM CDT PROTIME INR (PT) Routine 07/07/2018 4:10 AM CDT CBC AND DIFF Routine 07/07/2018 4:10 AM CDT PHOSPHORUS Routine 07/07/2018 4:10 AM CDT MAGNESIUM Routine 07/07/2018 4:10 AM CDT COMPREHENSIVE METABOLIC Routine 07/07/2018 PANEL 4:10 AM CDT POC GLUCOSE 07/06/2018 10:08 PM CDT POC GLUCOSE 07/06/2018 10:01 PM CDT BASIC METABOLIC PANEL Routine 07/06/2018 7:50 PM CDT POC GLUCOSE 07/06/2018 5:04 PM CDT POC GLUCOSE 07/06/2018 11:27 AM CDT POC GLUCOSE 07/06/2018 7:49 AM CDT POC GLUCOSE 07/06/2018 7:27 AM CDT PTT (APTT) Routine 07/06/2018 3:35 AM CDT PROTIME INR (PT) Routine 07/06/2018 3:35 AM CDT CBC AND DIFF Routine 07/06/2018 3:35 AM CDT PHOSPHORUS Routine 07/06/2018 3:35 AM CDT MAGNESIUM Routine 07/06/2018 3:35 AM CDT COMPREHENSIVE METABOLIC Routine 07/06/2018 PANEL 3:35 AM CDT POC GLUCOSE 07/05/2018 9:16 PM CDT POC GLUCOSE 07/05/2018 5:24 PM CDT BASIC METABOLIC PANEL Routine 07/05/2018 12:55 PM CDT POC GLUCOSE 07/05/2018 11:20 AM CDT POC GLUCOSE 07/05/2018 7:48 AM CDT CBC AND DIFF Routine 07/05/2018 5:59 AM CDT POC GLUCOSE 07/05/2018 5:51 AM CDT POC GLUCOSE 07/05/2018 5:36 AM CDT PTT (APTT) Routine 07/05/2018 4:40 AM CDT PROTIME INR (PT) Routine 07/05/2018 4:40 AM CDT PHOSPHORUS Routine 07/05/2018 4:40 AM CDT MAGNESIUM Routine 07/05/2018 4:40 AM CDT COMPREHENSIVE METABOLIC Routine 07/05/2018 PANEL 4:40 AM CDT POC GLUCOSE 07/04/2018 10:20 PM CDT POC GLUCOSE 07/04/2018 9:21 PM CDT POC GLUCOSE 07/04/2018 6:38 PM CDT BASIC METABOLIC PANEL Routine 07/04/2018 1:20 PM CDT POC GLUCOSE 07/04/2018 12:08 PM CDT POC GLUCOSE 07/04/2018 7:57 AM CDT PTT (APTT) Routine 07/04/2018 5:24 AM CDT PROTIME INR (PT) Routine 07/04/2018 5:24 AM CDT CBC AND DIFF Routine 07/04/2018 5:24 AM CDT PHOSPHORUS Routine 07/04/2018 5:24 AM CDT MAGNESIUM Routine 07/04/2018 5:24 AM CDT COMPREHENSIVE METABOLIC Routine 07/04/2018 PANEL 5:24 AM CDT POC GLUCOSE 07/03/2018 9:55 PM CDT POC GLUCOSE 07/03/2018 5:33 PM CDT BASIC METABOLIC PANEL Routine 07/03/2018 1:02 PM CDT POC GLUCOSE 07/03/2018 12:09 PM CDT POC GLUCOSE 07/03/2018 8:22 AM CDT PTT (APTT) Routine 07/03/2018 4:22 AM CDT PROTIME INR (PT) Routine 07/03/2018 4:22 AM CDT CBC AND DIFF Routine 07/03/2018 4:22 AM CDT TYPE & CROSSMATCH Routine 07/03/2018 4:22 AM CDT PHOSPHORUS Routine 07/03/2018 4:22 AM CDT MAGNESIUM Routine 07/03/2018 4:22 AM CDT FOLATE, SERUM Add on 07/03/2018 4:22 AM CDT VITAMIN B12 Add on 07/03/2018 4:22 AM CDT COMPREHENSIVE METABOLIC Routine 07/03/2018 PANEL 4:22 AM CDT POC GLUCOSE 07/02/2018 10:24 PM CDT POC GLUCOSE 07/02/2018 5:[address] ABD/PELV W CONTRAST Routine 07/02/2018 2:48 PM CDT BASIC METABOLIC PANEL Routine 07/02/2018 1:20 PM CDT POC GLUCOSE 07/02/2018 11:51 AM CDT POC GLUCOSE 07/02/2018 7:43 AM CDT PTT (APTT) Routine 07/02/2018 5:05 AM CDT PROTIME INR (PT) Routine 07/02/2018 5:05 AM CDT CBC AND DIFF Routine 07/02/2018 5:05 AM CDT PHOSPHORUS Routine 07/02/2018 5:05 AM CDT MAGNESIUM Routine 07/02/2018 5:05 AM CDT LDH-LACTATE DEHYDROGENASE Routine 07/02/2018 5:05 AM CDT HAPTOGLOBIN Routine 07/02/2018 5:05 AM CDT COMPREHENSIVE METABOLIC Routine 07/02/2018 PANEL 5:05 AM CDT POC GLUCOSE 07/01/2018 9:25 PM CDT POC GLUCOSE 07/01/2018 5:14 PM CDT BASIC METABOLIC PANEL Routine 07/01/2018 1:47 PM CDT POC GLUCOSE 07/01/2018 12:31 PM CDT POC GLUCOSE 07/01/2018 7:28 AM CDT PTT (APTT) Routine 07/01/2018 5:06 AM CDT PROTIME INR (PT) Routine 07/01/2018 5:06 AM CDT CBC AND DIFF Routine 07/01/2018 5:06 AM CDT PHOSPHORUS Routine 07/01/2018 5:06 AM CDT MAGNESIUM Routine 07/01/2018 5:06 AM CDT LDH-LACTATE DEHYDROGENASE Routine 07/01/2018 5:06 AM CDT HAPTOGLOBIN Routine 07/01/2018 5:06 AM CDT COMPREHENSIVE METABOLIC Routine 07/01/2018 PANEL 5:06 AM CDT POC GLUCOSE 06/30/2018 9:36 PM CDT PROTIME INR (PT) Routine 06/30/2018 6:15 PM CDT FIBRINOGEN Routine 06/30/2018 6:15 PM CDT CBC Routine 06/30/2018 6:15 PM CDT LDH-LACTATE DEHYDROGENASE Routine 06/30/2018 6:15 PM CDT HAPTOGLOBIN Routine 06/30/2018 6:15 PM CDT BILIRUBIN,TOTAL Routine 06/30/2018 6:15 PM CDT BASIC METABOLIC PANEL Routine 06/30/2018 6:15 PM CDT POC GLUCOSE 06/30/2018 5:57 PM CDT POC GLUCOSE 06/30/2018 12:55 PM CDT POC GLUCOSE 06/30/2018 8:06 AM CDT PTT (APTT) Routine 06/30/2018 5:18 AM CDT PROTIME INR (PT) Routine 06/30/2018 5:18 AM CDT RETICULOCYTE COUNT Routine 06/30/2018 5:18 AM CDT CBC AND DIFF Routine 06/30/2018 5:18 AM CDT PHOSPHORUS Routine 06/30/2018 5:18 AM CDT BNP (B-TYPE NATRIURETIC Add on 06/30/2018 PEPTI) 5:18 AM CDT MAGNESIUM Routine 06/30/2018 5:18 AM CDT LDH-LACTATE DEHYDROGENASE Routine 06/30/2018 5:18 AM CDT HAPTOGLOBIN Routine 06/30/2018 5:18 AM CDT COMPREHENSIVE METABOLIC Routine 06/30/2018 PANEL 5:18 AM CDT POC GLUCOSE 06/29/2018 9:32 PM CDT POC GLUCOSE 06/29/2018 5:58 PM CDT IMMATURE PLATELET STAT 06/29/2018 FRACTION 12:31 PM CDT DIRECT ANTIGLOBULIN Routine 06/29/2018 TEST(STEVEN) 12:31 PM CDT FIBRINOGEN STAT 06/29/2018 12:31 PM CDT RETICULOCYTE COUNT STAT 06/29/2018 12:31 PM CDT MAGNESIUM Routine 06/29/2018 12:31 PM CDT LDH-LACTATE DEHYDROGENASE STAT 06/29/2018 12:31 PM CDT HAPTOGLOBIN STAT 06/29/2018 12:31 PM CDT BILIRUBIN, DIRECT STAT 06/29/2018 12:31 PM CDT BASIC METABOLIC PANEL Routine 06/29/2018 12:31 PM CDT POC GLUCOSE 06/29/2018 11:32 AM CDT POC GLUCOSE 06/29/2018 8:51 AM CDT POC GLUCOSE 06/29/2018 6:26 AM CDT PERIPHERAL SMEAR Add on 06/29/2018 4:25 AM CDT PTT (APTT) Routine 06/29/2018 4:25 AM CDT PROTIME INR (PT) Routine 06/29/2018 4:25 AM CDT CBC AND DIFF Routine 06/29/2018 4:25 AM CDT PHOSPHORUS Routine 06/29/2018 4:25 AM CDT MAGNESIUM Routine 06/29/2018 4:25 AM CDT COMPREHENSIVE METABOLIC Routine 06/29/2018 PANEL 4:25 AM CDT MAGNESIUM STAT 06/28/2018 9:20 PM CDT BASIC METABOLIC PANEL STAT 06/28/2018 9:20 PM CDT POC GLUCOSE 06/28/2018 9:15 PM CDT POC GLUCOSE 06/28/2018 4:52 PM CDT CBC STAT 06/28/2018 10:01 AM CDT BASIC METABOLIC PANEL STAT 06/28/2018 10:01 AM CDT POC GLUCOSE 06/28/2018 9:55 AM CDT CBC Specimen 06/28/2018 in Lab 6:50 AM CDT PTT (APTT) Routine 06/28/2018 4:20 AM CDT PROTIME INR (PT) Routine 06/28/2018 4:20 AM CDT CBC AND DIFF Routine 06/28/2018 4:20 AM CDT PHOSPHORUS Routine 06/28/2018 4:20 AM CDT MAGNESIUM Routine 06/28/2018 4:20 AM CDT COMPREHENSIVE METABOLIC Routine 06/28/2018 PANEL 4:20 AM CDT POC GLUCOSE 06/28/2018 4:18 AM CDT POC GLUCOSE 06/27/2018 8:09 PM CDT POC GLUCOSE 06/27/2018 5:51 PM CDT MAGNESIUM Routine 06/27/2018 3:12 PM CDT BASIC METABOLIC PANEL Routine 06/27/2018 3:12 PM CDT POC GLUCOSE 06/27/2018 11:41 AM CDT POC GLUCOSE 06/27/2018 6:09 AM CDT PTT (APTT) Routine 06/27/2018 4:07 AM CDT PROTIME INR (PT) Routine 06/27/2018 4:07 AM CDT CBC AND DIFF Routine 06/27/2018 4:07 AM CDT PHOSPHORUS Routine 06/27/2018 4:07 AM CDT MAGNESIUM Routine 06/27/2018 4:07 AM CDT COMPREHENSIVE METABOLIC Routine 06/27/2018 PANEL 4:07 AM CDT POC GLUCOSE 06/26/2018 9:20 [...] SMEAR Add on 06/26/2018 3:41 AM CDT PTT (APTT) Routine 06/26/2018 3:41 AM CDT PROTIME INR (PT) Routine 06/26/2018 3:41 AM CDT CBC AND DIFF Routine 06/26/2018 3:41 AM CDT PHOSPHORUS Routine 06/26/2018 3:41 AM CDT MAGNESIUM Routine 06/26/2018 3:41 AM CDT COMPREHENSIVE METABOLIC Routine 06/26/2018 PANEL 3:41 AM CDT POC GLUCOSE 06/25/2018 9:24 PM CDT POC GLUCOSE 06/25/2018 4:52 PM CDT LACTIC ACID (BG - RAPID STAT 06/25/2018 LACTATE) 11:22 AM CDT ETHYLENE GLYCOL STAT 06/25/2018 11:22 AM CDT POC GLUCOSE 06/25/2018 11:20 AM CDT POC GLUCOSE 06/25/2018 6:15 AM CDT BETA HYDROXYBUTYRATE Add on 06/25/2018 (KETONES) 3:57 AM CDT PTT (APTT) Routine 06/25/2018 3:57 AM CDT PROTIME INR (PT) Routine 06/25/2018 3:57 AM CDT CBC AND DIFF Routine 06/25/2018 3:57 AM CDT PHOSPHORUS Routine 06/25/2018 3:57 AM CDT MAGNESIUM Routine 06/25/2018 3:57 AM CDT COMPREHENSIVE METABOLIC Routine 06/25/2018 PANEL 3:57 AM CDT POC GLUCOSE 06/25/2018 12:06 AM CDT CHEST SINGLE VIEW Routine 06/24/2018 11:36 PM CDT BNP (B-TYPE NATRIURETIC STAT 06/24/2018 PEPTI) 11:14 PM CDT STREPTOCOCCUS PNEUMO AG, Specimen 06/24/2018 URINE in Lab 10:03 PM CDT URINALYSIS, MICROSCOPIC Routine 06/24/2018 10:03 PM CDT URINALYSIS DIPSTICK Routine 06/24/2018 10:03 PM CDT UREA NITROGEN-URINE Routine 06/24/2018 RANDOM 10:03 PM CDT SODIUM-URINE RANDOM Routine 06/24/2018 10:03 PM CDT LEGIONELLA ANTIGEN Specimen 06/24/2018 URINE,RAN in Lab 10:03 PM CDT CREATININE-URINE RANDOM Routine 06/24/2018 10:03 PM CDT CULTURE-BLOOD Routine 06/24/2018 W/SENSITIVITY 10:03 PM CDT CULTURE-BLOOD Routine 06/24/2018 W/SENSITIVITY 10:03 PM CDT BLOOD GASES, ARTERIAL Routine 06/24/2018 10:03 PM CDT RVP VIRAL PANEL PCR Routine 06/24/2018 9:56 PM CDT POC GLUCOSE 06/24/2018 9:55 PM CDT BLOOD GASES, CENTRAL Routine 06/24/2018 VENOUS 9:51 PM CDT PROCALCITONIN Add on 06/24/2018 9:51 PM CDT CORTISOL,RANDOM Routine 06/24/2018 9:51 PM CDT LACTIC ACID (BG - RAPID Routine 06/24/2018 LACTATE) 9:51 PM CDT CBC AND DIFF Routine 06/24/2018 9:51 PM CDT TYPE & CROSSMATCH Specimen 06/24/2018 in Lab 9:51 PM CDT PHOSPHORUS STAT 06/24/2018 9:51 PM CDT MAGNESIUM STAT 06/24/2018 9:51 PM CDT COMPREHENSIVE METABOLIC Routine [...] EXTERNAL IMAGING Routine 06/18/2018 12:20 PM CDT documented in this encounter Results * POC GLUCOSE (07/07/2018 11:47 AM CDT) Glucose, POC 144 (H) 70 - 100 MG/DL [facility] Performing Organization Address City/[facility] [address]/[facility] Phone Number [facility] [address] [place] [address] * POC GLUCOSE (07/07/2018 8:17 AM CDT) Glucose, POC 72 70 - 100 MG/DL [facility] Performing Organization Address City/[facility] [address]/[facility] Phone Number [facility] [address] [place] [address] * POC GLUCOSE (07/07/2018 8:00 AM CDT) Glucose, POC 64 (L) 70 - 100 MG/DL [facility] Performing Organization Address [facility] [address]/[facility] Phone Number [employer] MAIN LAB [address] [place] [address] * PHOSPHORUS (07/07/2018 4:10 AM CDT) Phosphorus 3.5Comment: NOTE NEW REFERENCE 2.0 - 4.5 MG/DL [facility] RANGES Specimen Blood Performing Organization Address City/[facility] [address]/Zipcode Phone Number MAIN LAB [address] [place] [address] * MAGNESIUM (07/07/2018 4:10 AM CDT) Magnesium 2.3 1.6 - 2.6 mg/dL MAIN LAB Specimen Blood Performing Organization Address City/[facility] [address]/[facility]code Phone Number MAIN LAB [address] [place] [address] * COMPREHENSIVE METABOLIC PANEL (07/07/2018 4:10 AM CDT) Sodium 141 137 - 147 MMOL/L [facility] [...] (L) >60 mL/min [facility] Comment: [place] The eGFR is not validated for use in drug dosing adjustments.Continue to use estimated creatinine clearance per dosing reference text.Please contact the Clinical Pharmacist for questions. eGFR 52 (L) >60 mL/min [facility] [place] Comment: The eGFR is not validated for use in drug dosing adjustments.Continue to use estimated creatinine clearance per dosing reference text.Please contact the Clinical Pharmacist for questions. Specimen Blood Performing Organization Address City/State/Zipcode Phone Number [facility] [address] [place] [address] * CBC AND DIFF (07/07/2018 4:10 AM CDT) White Blood 26.6 (H) 4.5 - 11.0 K/UL [facility] Cells RBC 2.85 (L) 4.0 - 5.0 M/UL [facility] Hemoglobin 8.2 (L) 12.0 - 15.0 GM/DL [facility] Hematocrit 25.7 (L) 36 - 45 % [facility] MCV 90.2 80 - 100 FL [facility] MCH 28.7 26 - 34 PG [facility] MCHC 31.8 (L) 32.0 - 36.0 G/DL [facility]IN [facility] RDW 23.7 (H) 11 - 15 % MAIN [facility] Platelet Count 30 (L) 150 - 400 K/UL MAIN [facility] MPV 11.5 (H) 7 - 11 FL MAIN LAB Segmented 70 41 - 77 % MAIN LAB Neutrophils Lymphocytes 18 (L) 24 - 44 % [facility]IN LAB Monocytes 7 4 - 12 % [facility]IN LAB Eosinophil 5 0 - 5 % MAIN LAB ANISO PRESENT MAIN LAB POIK PRESENT MAIN LAB POLY PRESENT MAIN LAB Target PRESENT MAIN LAB Platelet MKD DEC MAIN LAB Estimate Absolute 18.62 (H) 1.8 - 7.0 K/UL MAIN LAB Neutrophil Count Manual Specimen Blood Performing Organization Address City/[facility] [address]/[facility] Phone Number MAIN LAB [address] [place] [address] * PTT (APTT) (07/07/2018 4:10 AM CDT) APTT 25.0 24.0 - 36.5 SEC MAIN LAB Specimen Blood Performing Organization Address City/[facility] [address]/[facility]code Phone Number MAIN LAB [address] [place] [address] * PROTIME INR (PT) (07/07/2018 4:10 AM CDT) INR 1.5 (H) 0.8 - 1.2 MAIN LAB Specimen Blood Performing Organization Address [facility] [address]/[facility] Phone Number MAIN LAB [address] [place] [address] * POC GLUCOSE (07/06/2018 10:08 PM CDT) Glucose, POC 152 (H) 70 - 100 MG/DL MAIN LAB Performing Organization Address [facility] [address]/Zipcode Phone Number MAIN LAB [address] [place] [address] * POC GLUCOSE (07/06/2018 10:01 PM CDT) Glucose, POC 155 (H) 70 - 100 MG/DL MAIN LAB Performing Organization Address [facility] [address]/[facility] Phone Number MAIN LAB [address] [place] [address] * BASIC METABOLIC PANEL (07/06/2018 7:50 PM CDT) Sodium 137 137 - 147 MMOL/L [facility] [...] (L) >60 mL/min [facility] Comment: [place] The eGFR is not validated for use in drug dosing adjustments.Continue to use estimated creatinine clearance per dosing reference text.Please contact the Clinical Pharmacist for questions. eGFR 48 (L) >60 mL/min [facility] [place] Comment: The eGFR is not validated for use in drug dosing adjustments.Continue to use estimated creatinine clearance per dosing reference text.Please contact the Clinical Pharmacist for questions. Specimen Blood Performing Organization Address City/State/Zipcode Phone Number MAIN LAB [address] [place] [address] * POC GLUCOSE (07/06/2018 5:04 PM CDT) Glucose, POC 154 (H) 70 - 100 MG/DL [facility] Performing Organization Address City/[facility] [address]/Zipcode Phone Number [facility] [address] [place] [address] * POC GLUCOSE (07/06/2018 11:27 AM CDT) Glucose, POC 134 (H) 70 - 100 MG/DL [facility] Performing Organization Address City/[facility] [address]/Zipcode Phone Number MAIN LAB [address] [place] [address] * POC GLUCOSE (07/06/2018 7:49 AM CDT) Glucose, POC 87 70 - 100 MG/DL [facility] Performing Organization Address City/[facility] [address]/Zipcode Phone Number MAIN LAB [address] [place] [address] * POC GLUCOSE (07/06/2018 7:27 AM CDT) Glucose, POC 62 (L) 70 - 100 MG/DL [facility] Performing Organization Address [facility] [address]/[facility]code Phone Number [facility] [address] [place] [address] * PHOSPHORUS (07/06/2018 3:35 AM CDT) Phosphorus 3.9Comment: NOTE NEW REFERENCE 2.0 - 4.5 MG/DL [facility] RANGES Specimen Blood Performing Organization Address City/[facility] [address]/[facility] Phone Number [facility] [address] [place] [address] * MAGNESIUM (07/06/2018 3:35 AM CDT) Pathologist [facility] Magnesium 2.1 1.6 - 2.6 mg/dL [facility] Specimen Blood Performing Organization Address [facility] [address]/[facility] Phone Number [facility] [address] [place] [address] * COMPREHENSIVE METABOLIC PANEL (07/06/2018 3:35 AM CDT) Pathologist [facility] Sodium 143 137 - 147 MMOL/L [facility] Potassium 4.3 3.5 - 5.1 MMOL/L [facility] Chloride 96 (L) 98 - 110 MMOL/L [facility] Glucose 54 (L) 70 - 100 MG/DL [facility] Blood Urea 32 (H) 7 - 25 MG/DL [facility] Nitrogen Creatinine 1.26 (H) 0.4 - 1.00 MG/DL [facility] Calcium 9.2 8.5 - 10.6 MG/DL [facility] Total Protein 5.9 (L) 6.0 - 8.0 G/DL [facility] Total Bilirubin 1.5 (H) 0.3 - 1.2 MG/DL [facility] Albumin 3.1 (L) 3.5 - 5.0 G/DL [facility] Alk Phosphatase 84 25 - 110 U/L [facility] AST (SGOT) 32 7 - 40 U/L [facility] CO2 42 (H) 21 - 30 MMOL/L [facility] ALT (SGPT) 15 7 - 56 U/L [facility] Anion Gap 5 3 - 12 [facility] eGFR Non 44 (L) >60 mL/min [facility] Comment: [place] The eGFR is not validated for use in drug dosing adjustments.Continue to use estimated creatinine clearance per dosing reference text.Please contact the Clinical Pharmacist for questions. eGFR 54 (L) >60 mL/min [facility] [place] Comment: The eGFR is not validated for use in drug dosing adjustments.Continue to use estimated creatinine clearance per dosing reference text.Please contact the Clinical Pharmacist for questions. Specimen Blood Performing Organization Address City/[facility] [address]/Zipcode Phone Number MAIN LAB [address] [place] [address] * CBC AND DIFF (07/06/2018 3:35 AM CDT) White Blood 26.2 (H) 4.5 - 11.0 K/UL [facility] Cells RBC 2.80 (L) 4.0 - 5.0 M/UL [facility] Hemoglobin 8.1 (L) 12.0 - 15.0 GM/DL [facility] Hematocrit 24.5 (L) 36 - 45 % [facility] MCV 87.3 80 - 100 FL [facility] MCH 28.7 26 - 34 PG MAIN LAB MCHC 32.9 32.0 - 36.0 G/DL [facility] RDW 22.7 (H) 11 - 15 % [facility] Platelet Count 25 (L)Comment: Confirmed by 150 - 400 K/UL [facility] smear MPV 10.8 7 - 11 FL MAIN LAB Segmented 57 41 - 77 % MAIN LAB Neutrophils Lymphocytes 29 24 - 44 % MAIN LAB Monocytes 9 4 - 12 % [facility] Eosinophil 5 0 - 5 % [facility] ANISO PRESENT MAIN LAB HYPO PRESENT MAIN LAB POIK PRESENT MAIN LAB POLY PRESENT MAIN LAB Ovalocyte PRESENT MAIN LAB Schistocyte PRESENT MAIN LAB Target PRESENT MAIN LAB Gregory Cruz PRESENT MAIN LAB Bodies Platelet MKD DEC MAIN LAB Estimate Absolute 14.93 (H) 1.8 - 7.0 K/UL MAIN LAB Neutrophil Count Manual Specimen Blood Performing Organization Address City/[facility] [address]/Zipcode Phone Number [facility] [address] [place] [address] * PTT (APTT) (07/06/2018 3:35 AM CDT) APTT 29.6 24.0 - 36.5 SEC [facility] Specimen Blood Performing Organization Address City/[facility] [address]/Zipcode Phone Number MAIN LAB [address] [place] [address] * PROTIME INR (PT) (07/06/2018 3:35 AM CDT) INR 1.6 (H) 0.8 - 1.2 [facility] Specimen Blood Performing Organization Address City/[facility] [address]/[facility] Phone Number [facility] [address] [place] [address] * POC GLUCOSE (07/05/2018 9:16 PM CDT) Glucose, POC 176 (H) 70 - 100 MG/DL [facility] Performing Organization Address [facility] [address]/[facility] Phone Number [facility] [address] [place] [address] * POC GLUCOSE (07/05/2018 5:24 PM CDT) Glucose, POC 110 (H) 70 - 100 MG/DL [facility] Performing Organization Address [facility] Phone Number MAIN LAB [address] [place] [address] * BASIC METABOLIC PANEL (07/05/2018 12:55 PM CDT) Sodium 141 137 - 147 MMOL/L [facility] Potassium 4.4 3.5 - 5.1 MMOL/L [facility] Chloride 94 (L) 98 - 110 MMOL/L [facility] CO2 43 (H) 21 - 30 MMOL/L [facility] Anion Gap 4 3 - 12 [facility] Glucose 109 (H) 70 - 100 MG/DL [facility] Blood Urea 31 (H) 7 - 25 MG/DL [facility] Nitrogen Creatinine 1.24 (H) 0.4 - 1.00 MG/DL [facility] Calcium 9.4 8.5 - 10.6 MG/DL [facility] eGFR Non 45 (L) >60 mL/min [facility] Comment: [place] The eGFR is not validated for use in drug dosing adjustments.Continue to use estimated creatinine clearance per dosing reference text.Please contact the Clinical Pharmacist for questions. eGFR 55 (L) >60 mL/min [facility] [place] Comment: The eGFR is not validated for use in drug dosing adjustments.Continue to use estimated creatinine clearance per dosing reference text.Please contact the Clinical Pharmacist for questions. Specimen Blood Performing Organization Address City/[facility] [address]/[facility] Phone Number [facility] [address] [phone] * POC GLUCOSE (07/05/2018 11:20 AM CDT) Glucose, POC 99 70 - 100 MG/DL [facility] Performing Organization Address [facility] [address]/[facility] Phone Number [facility] [address] [phone] * POC GLUCOSE (07/05/2018 7:48 AM CDT) Glucose, POC 77 70 - 100 MG/DL [facility] Performing Organization Address City/[facility] [address]/[facility] Phone Number [facility] [address] [phone] * CBC AND DIFF (07/05/2018 5:59 AM CDT) White Blood 23.7 (H) 4.5 - 11.0 K/UL [facility] Cells RBC 2.75 (L) 4.0 - 5.0 M/UL [facility] Hemoglobin 7.8 (L) 12.0 - 15.0 GM/DL [facility] Hematocrit 24.1 (L) 36 - 45 % [facility] MCV 87.7 80 - 100 FL [facility] MCH 28.4 26 - 34 PG [facility] MCHC 32.4 32.0 - 36.0 G/DL [facility] RDW 22.5 (H) 11 - 15 % [facility] Platelet Count 15 (LL) 150 - 400 K/UL [facility] Comment: Critical Result PLT:Called to Fab ULLOA RN at: 08:19:21 by: [email or web address] Read back by: Fab ULLOA RN MPV 7.7 7 - 11 FL [facility] Neutrophils 67 41 - 77 % [facility] Lymphocytes 15 (L) 24 - 44 % [facility] Monocytes 12 4 - 12 % [facility] Eosinophils 4 0 - 5 % [facility] Basophils 2 0 - 2 % [facility] Absolute 16.00 (H) 1.8 - 7.0 K/UL [facility] Neutrophil Count Absolute Lymph 3.50 1.0 - 4.8 K/UL [facility] Count Absolute 2.80 (H) 0 - 0.80 K/UL [facility] Monocyte Count Absolute 1.00 (H) 0 - 0.45 K/UL [facility] Eosinophil Count Absolute 0.50 (H) 0 - 0.20 K/UL [facility] Basophil Count Specimen Blood Performing Organization Address City/[facility] [address]/Zipcode Phone Number [facility] [address] [place] [address] * POC GLUCOSE (07/05/2018 5:51 AM CDT) Glucose, POC 73 70 - 100 MG/DL [facility] Performing Organization Address [facility] [address]/[facility] Phone Number [facility] [address] [place] [address] * POC GLUCOSE (07/05/2018 5:36 AM CDT) Glucose, POC 65 (L) 70 - 100 MG/DL [facility] Performing Organization Address [facility] [address]/[facility] Phone Number [facility] [address] [place] [address] * PHOSPHORUS (07/05/2018 4:40 AM CDT) Phosphorus 4.0Comment: NOTE NEW REFERENCE 2.0 - 4.5 MG/DL [facility] RANGES Specimen Blood Performing Organization Address [facility] [address]/[facility] Phone Number [facility] [address] [place] [address] * MAGNESIUM (07/05/2018 4:40 AM CDT) Magnesium 1.8 1.6 - 2.6 mg/dL [facility] Specimen Blood Performing Organization Address [facility] [address]/[facility] Phone Number [facility] [address] [place] [address] * COMPREHENSIVE METABOLIC PANEL (07/05/2018 4:40 AM CDT) Sodium 142 137 - 147 MMOL/L [facility] Potassium 4.2 3.5 - 5.1 MMOL/L [facility] Chloride 96 (L) 98 - 110 MMOL/L [facility] Glucose 60 (L) 70 - 100 MG/DL [facility] Blood Urea 30 (H) 7 - 25 MG/DL [facility] Nitrogen Creatinine 1.20 (H) 0.4 - 1.00 MG/DL [facility] Calcium 8.8 8.5 - 10.6 MG/DL [facility] Total Protein 5.7 (L) 6.0 - 8.0 G/DL [facility] Total Bilirubin 1.5 (H) 0.3 - 1.2 MG/DL [facility] Albumin 3.0 (L) 3.5 - 5.0 G/DL MAIN LAB Alk Phosphatase 81 25 - 110 U/L MAIN LAB AST (SGOT) 33 7 - 40 U/L MAIN LAB CO2 42 (H) 21 - 30 MMOL/L MAIN LAB ALT (SGPT) 14 7 - 56 U/L MAIN LAB Anion Gap 4 3 - 12 MAIN LAB eGFR Non 47 (L) >60 mL/min MAIN LAB Comment: [place] The eGFR is not validated for use in drug dosing adjustments.Continue to use estimated creatinine clearance per dosing reference text.Please contact the Clinical Pharmacist for questions. eGFR 57 (L) >60 mL/min MAIN LAB [place] Comment: The eGFR is not validated for use in drug dosing adjustments.Continue to use estimated creatinine clearance per dosing reference text.Please contact the Clinical Pharmacist for questions. Specimen Blood Performing Organization Address City/[facility] [address]/Zipcode Phone Number MAIN LAB [address] [place] [address] * PTT (APTT) (07/05/2018 4:40 AM CDT) APTT 33.0 24.0 - 36.5 SEC MAIN LAB Specimen Blood Performing Organization Address City/[facility] [address]/[facility] Phone Number MA[facility] LAB [address] [place] [address] * PROTIME INR (PT) (07/05/2018 4:40 AM CDT) INR 1.6 (H) 0.8 - 1.2 MAIN LAB Specimen Blood Performing Organization Address City/[facility] [address]/Zipcode Phone Number MAIN LAB [address] [place] [address] * POC GLUCOSE (07/04/2018 10:20 PM CDT) Glucose, POC 128 (H) 70 - 100 MG/DL MAIN LAB Performing Organization Address City/[facility] [address]/Zipcode Phone Number MAIN LAB [address] [place] [address] * POC GLUCOSE (07/04/2018 9:21 PM CDT) Glucose, POC 148 (H) 70 - 100 MG/DL MAIN LAB Performing Organization Address [facility] [address]/Zipcode Phone Number MAIN LAB [address] [place] [address] * POC GLUCOSE (07/04/2018 6:38 PM CDT) Glucose, POC 78 70 - 100 MG/DL [facility] Performing Organization Address City/[facility] [address]/Zipcode Phone Number [facility] [address] [place] [address] * BASIC METABOLIC PANEL (07/04/2018 1:20 PM CDT) Sodium 138 137 - 147 MMOL/L [facility] Potassium 4.8Comment: MODERATE HEMOLYSIS 3.5 - 5.1 MMOL/L [facility] Chloride 93 (L) 98 - 110 MMOL/L [facility] CO2 39 (H) 21 - 30 MMOL/L [facility] Anion Gap 6 3 - 12 [facility] Glucose 150 (H) 70 - 100 MG/DL [facility] Blood Urea 31 (H) 7 - 25 MG/DL [facility] Nitrogen Creatinine 1.12 (H) 0.4 - 1.00 MG/DL [facility] Calcium 9.1 8.5 - 10.6 MG/DL [facility] eGFR Non 51 (L) >60 mL/min [facility] Comment: [place] The eGFR is not validated for use in drug dosing adjustments.Continue to use estimated creatinine clearance per dosing reference text.Please contact the Clinical Pharmacist for questions. eGFR >60 >60 mL/min [facility] [place] Comment: The eGFR is not validated for use in drug dosing adjustments.Continue to use estimated creatinine clearance per dosing reference text.Please contact the Clinical Pharmacist for questions. Specimen Blood Performing Organization Address City/[facility] [address]/Zipcode Phone Number [facility] [address] [place] [address] * POC GLUCOSE (07/04/2018 12:08 PM CDT) Glucose, POC 125 (H) 70 - 100 MG/DL [facility] Performing Organization Address City/[facility] [address]/Zipcode Phone Number [facility] [address] [place] [address] * POC GLUCOSE (07/04/2018 7:57 AM CDT) Glucose, POC 88 70 - 100 MG/DL [facility] Performing Organization Address City/[facility] [address]/Zipcode Phone Number [facility] [address] [place] [address] * PHOSPHORUS (07/04/2018 5:24 AM CDT) Phosphorus 3.8Comment: NOTE NEW REFERENCE 2.0 - 4.5 MG/DL [facility] RANGES Specimen Blood Performing Organization Address City/[facility] [address]/Zipcode Phone Number [facility] [address] [place] [address] * MAGNESIUM (07/04/2018 5:24 AM CDT) Pathologist [facility] Magnesium 1.8 1.6 - 2.6 mg/dL [facility] Specimen Blood Performing Organization Address City/[facility] [address]/Zipcode Phone Number [facility] [address] [place] [address] * COMPREHENSIVE METABOLIC PANEL (07/04/2018 5:24 AM CDT) Sodium 140 137 - 147 MMOL/L [facility] Potassium 4.1 3.5 - 5.1 MMOL/L [facility] Chloride 95 (L) 98 - 110 MMOL/L [facility] Glucose 74 70 - 100 MG/DL [facility] Blood Urea 30 (H) 7 - 25 MG/DL [facility] Nitrogen Creatinine 1.07 (H) 0.4 - 1.00 MG/DL [facility] Calcium 8.8 8.5 - 10.6 MG/DL [facility] Total Protein 6.3 6.0 - 8.0 G/DL [facility] Total Bilirubin 1.4 (H) 0.3 - 1.2 MG/DL [facility] Albumin 3.2 (L) 3.5 - 5.0 G/DL [facility] Alk Phosphatase 85 25 - 110 U/L [facility] AST (SGOT) 37 7 - 40 U/L [facility] CO2 40 (H) 21 - 30 MMOL/L [facility] ALT (SGPT) 16 7 - 56 U/L [facility] Anion Gap 5 3 - 12 [facility] eGFR Non 53 (L) >60 mL/min [facility] Comment: [place] The eGFR is not validated for use in drug dosing adjustments.Continue to use estimated creatinine clearance per dosing reference text.Please contact the Clinical Pharmacist for questions. eGFR >60 >60 mL/min [facility] [place] Comment: The eGFR is not validated for use in drug dosing adjustments.Continue to use estimated creatinine clearance per dosing reference text.Please contact the Clinical Pharmacist for questions. Specimen Blood Performing Organization Address City/[facility] [address]/Zipcode Phone Number [facility] [address] [place] [address] * CBC AND DIFF (07/04/2018 5:24 AM CDT) White Blood 24.6 (H) 4.5 - 11.0 K/UL [facility] Cells RBC 2.84 (L) 4.0 - 5.0 M/UL [facility] Hemoglobin 8.0 (L) 12.0 - 15.0 GM/DL [facility] Hematocrit 24.9 (L) 36 - 45 % [facility] MCV 87.7 80 - 100 FL [facility] MCH 28.3 26 - 34 PG [facility] MCHC 32.2 32.0 - 36.0 G/DL MAIN LAB RDW 22.2 (H) 11 - 15 % [facility] Platelet Count 19 (LL) 150 - 400 K/UL [facility] Comment: Critical Result PLT:Called to MELONIE ALBARADO at: 07:56:44 by: KASSANDRA Read back by: MELONIE ALBARADO MPV 8.5 7 - 11 FL MAIN LAB Neutrophils 55 41 - 77 % [facility] Lymphocytes 26 24 - 44 % [facility] Monocytes 13 (H) 4 - 12 % [facility] Eosinophils 5 0 - 5 % [facility] Basophils 1 0 - 2 % [facility] Absolute 13.50 (H) 1.8 - 7.0 K/UL [facility] Neutrophil Count Absolute Lymph 6.50 (H) 1.0 - 4.8 K/UL [facility] Count Absolute 3.10 (H) 0 - 0.80 K/UL [facility] Monocyte Count Absolute 1.30 (H) 0 - 0.45 K/UL [facility] Eosinophil Count Absolute 0.30 (H) 0 - 0.20 K/UL [facility] Basophil Count Specimen Blood Performing Organization Address City/[facility]/Zipcode Phone Number MAIN LAB [address] [place] [address] * PTT (APTT) (07/04/2018 5:24 AM CDT) APTT 31.1 24.0 - 36.5 SEC MAIN LAB Specimen Blood Performing Organization Address City/[facility] [address]/Zipcode Phone Number MAIN LAB [address] [place] [address] * PROTIME INR (PT) (07/04/2018 5:24 AM CDT) INR 1.6 (H) 0.8 - 1.2 MAIN LAB Specimen Blood Performing Organization Address [facility] [address] [facility] Phone Number MA[facility] LAB [address] [place] [address] * POC GLUCOSE (07/03/2018 9:55 PM CDT) Glucose, POC 133 (H) 70 - 100 MG/DL [facility] Performing Organization Address [facility] [address] [facility] Phone Number MA[facility] LAB [address] [place] [address] * POC GLUCOSE (07/03/2018 5:33 PM CDT) Glucose, POC 114 (H) 70 - 100 MG/DL [facility] Performing Organization Address [facility] Phone Number MAIN LAB [address] [place] [address] * BASIC METABOLIC PANEL (07/03/2018 1:02 PM CDT) Sodium 141 137 - 147 MMOL/L [facility] Potassium 4.3 3.5 - 5.1 MMOL/L [facility] Chloride 96 (L) 98 - 110 MMOL/L [facility] CO2 40 (H) 21 - 30 MMOL/L [facility] Anion Gap 5 3 - 12 [facility] Glucose 166 (H) 70 - 100 MG/DL [facility] Blood Urea 31 (H) 7 - 25 MG/DL [facility] Nitrogen Creatinine 1.17 (H) 0.4 - 1.00 MG/DL MAIN LAB Calcium 8.7 8.5 - 10.6 MG/DL MAIN LAB eGFR Non 48 (L) >60 mL/min MAIN LAB Comment: [place] The eGFR is not validated for use in drug dosing adjustments.Continue to use estimated creatinine clearance per dosing reference text.Please contact the Clinical Pharmacist for questions. eGFR 58 (L) >60 mL/min MAIN LAB [place] Comment: The eGFR is not validated for use in drug dosing adjustments.Continue to use estimated creatinine clearance per dosing reference text.Please contact the Clinical Pharmacist for questions. Specimen Blood Performing Organization Address City/[facility] [address]/Zipcode Phone Number [facility] [address] [place] [address] * POC GLUCOSE (07/03/2018 12:09 PM CDT) Glucose, POC 127 (H) 70 - 100 MG/DL [facility] Performing Organization Address City/[facility] [address]/[facility] Phone Number [facility] [address] [place] [address] * POC GLUCOSE (07/03/2018 8:22 AM CDT) Glucose, POC 128 (H) 70 - 100 MG/DL [facility] Performing Organization Address City/[facility] [address]/[facility] Phone Number MAIN LAB [address] [place] [address] * FOLATE, SERUM (07/03/2018 4:22 AM CDT) Serum Folate 9.5Comment: NOTE NEW REFERENCE >3.9 NG/ML [facility] RANGES Performing Organization Address City/[facility] [address]/[facility] Phone Number MAIN LAB [address] [place] [address] * VITAMIN B12 (07/03/2018 4:22 AM CDT) Vitamin B12 1,245 (H) 180 - 914 PG/ML MAIN LAB Performing Organization Address City/[facility] [address]/[facility] Phone Number MA[facility] LAB [address] [place] [address] * PHOSPHORUS (07/03/2018 4:22 AM CDT) Phosphorus 4.2Comment: NOTE NEW REFERENCE 2.0 - 4.5 MG/DL [facility] RANGES Specimen Blood Performing Organization Address City/[facility] [address]/Zipcode Phone Number MAIN LAB [address] [place] [address] * MAGNESIUM (07/03/2018 4:22 AM CDT) Magnesium 1.9 1.6 - 2.6 mg/dL MAIN LAB Specimen Blood Performing Organization Address City/[facility] [address]/[facility] Phone Number MAIN LAB [address] [place] [address] * COMPREHENSIVE METABOLIC PANEL (07/03/2018 4:22 AM CDT) Sodium 141 137 - 147 MMOL/L MAIN LAB Potassium 4.2 3.5 - 5.1 MMOL/L [facility] Chloride 97 (L) 98 - 110 MMOL/L [facility] Glucose 102 (H) 70 - 100 MG/DL [facility] Blood Urea 32 (H) 7 - 25 MG/DL [facility] Nitrogen Creatinine 1.13 (H) 0.4 - 1.00 MG/DL [facility] Calcium 8.7 8.5 - 10.6 MG/DL [facility] Total Protein 6.0 6.0 - 8.0 G/DL [facility] Total Bilirubin 1.3 (H) 0.3 - 1.2 MG/DL [facility] Albumin 3.2 (L) 3.5 - 5.0 G/DL [facility] Alk Phosphatase 87 25 - 110 U/L [facility] AST (SGOT) 43 (H) 7 - 40 U/L [facility] CO2 38 (H) 21 - 30 MMOL/L [facility] ALT (SGPT) 17 7 - 56 U/L [facility] Anion Gap 6 3 - 12 [facility] eGFR Non 50 (L) >60 mL/min [facility] Comment: [place] The eGFR is not validated for use in drug dosing adjustments.Continue to use estimated creatinine clearance per dosing reference text.Please contact the Clinical Pharmacist for questions. eGFR >60 >60 mL/min [facility] [place] Comment: The eGFR is not validated for use in drug dosing adjustments.Continue to use estimated creatinine clearance per dosing reference text.Please contact the Clinical Pharmacist for questions. Specimen Blood Performing Organization Address City/State/Zipcode Phone Number MAIN LAB [address] [place] [address] * CBC AND DIFF (07/03/2018 4:22 AM CDT) White Blood 22.3 (H) 4.5 - 11.0 K/UL [facility] Cells RBC 2.74 (L) 4.0 - 5.0 M/UL [facility] Hemoglobin 7.9 (L) 12.0 - 15.0 GM/DL [facility] Hematocrit 24.7 (L) 36 - 45 % [facility] MCV 90.0 80 - 100 FL [facility] MCH 28.8 26 - 34 PG [facility] MCHC 32.0 32.0 - 36.0 G/DL [facility] RDW 22.9 (H) 11 - 15 % [facility] Platelet Count 16 (LL) 150 - 400 K/UL MAIN LAB Comment: Critical Result PLT:Called to Ernst COLEMAN RN at: 06:10:55 by: RAFITA Read back by: Ernst COLEMAN RN MPV 10.8 7 - 11 FL MAIN LAB Segmented 62 41 - 77 % MAIN LAB Neutrophils Bands 2 0 - 10 % MAIN LAB Lymphocytes 13 (L) 24 - 44 % MAIN LAB Monocytes 19 (H) 4 - 12 % MAIN LAB Eosinophil 4 0 - 5 % MAIN LAB ANISO PRESENT MAIN LAB Target PRESENT MAIN LAB Platelet MKD DEC MAIN LAB Estimate Absolute 14.40 (H) 1.8 - 7.0 K/UL MAIN LAB Neutrophil Count Manual Acanthocytes PRESENT MAIN LAB Specimen Blood Performing Organization Address City/[facility] [address]/[facility] Phone Number MAIN LAB [address] [place] [address] * PTT (APTT) (07/03/2018 4:22 AM CDT) APTT 32.1 24.0 - 36.5 SEC MAIN LAB Specimen Blood Performing Organization Address City/[facility] [address]/[facility] Phone Number MAIN LAB [address] [place] [address] * PROTIME INR (PT) (07/03/2018 4:22 AM CDT) INR 1.5 (H) 0.8 - 1.2 MAIN LAB Specimen Blood Performing Organization Address [facility] Phone Number MAIN LAB [address] [place] [address] * TYPE & CROSSMATCH (07/03/2018 4:22 AM CDT) Units Ordered 0 MAIN LAB Crossmatch 07/06/2018 MAIN LAB Expires Record Check FOUND MAIN LAB ABO/RH(D) A POS MAIN LAB Antibody Screen NEG MAIN LAB Electronic YES MAIN LAB Crossmatch Specimen Blood Performing Organization Address [facility] Phone Number MAIN LAB [address] [place] [address] * POC GLUCOSE (07/02/2018 10:24 PM CDT) Glucose, POC 137 (H) 70 - 100 MG/DL [facility]IN [facility] Performing Organization Address City/[facility] [address]/Zipcode Phone Number [facility] [address] [place] [address] * POC GLUCOSE (07/02/2018 5:33 PM CDT) Glucose, POC 109 (H) 70 - 100 MG/DL [facility] Performing Organization Address City/State/Zipcode Phone Number MAIN LAB [address] [place] [address] * CT ABD/PELV W CONTRAST (07/02/2018 2:48 [...] on 07/03/2018 7:05 AM. Performing Organization Address City/State/Zipcode Phone Number [facility] RAD RESULTS * BASIC METABOLIC PANEL (07/02/2018 1:20 PM CDT) Sodium 137 137 - 147 MMOL/L [facility] MAIN [facility] Potassium 4.2 3.5 - 5.1 MMOL/L [facility] Chloride 95 (L) 98 - 110 MMOL/L MAIN LAB CO2 36 (H) 21 - 30 MMOL/L [facility] Anion Gap 6 3 - 12 [facility] Glucose 175 (H) 70 - 100 MG/DL MAIN LAB Blood Urea 35 (H) 7 - 25 MG/DL MAIN LAB Nitrogen Creatinine 1.21 (H) 0.4 - 1.00 MG/DL MAIN LAB Calcium 9.0 8.5 - 10.6 MG/DL MAIN LAB eGFR Non 46 (L) >60 mL/min MAIN LAB Comment: [place] The eGFR is not validated for use in drug dosing adjustments.Continue to use estimated creatinine clearance per dosing reference text.Please contact the Clinical Pharmacist for questions. eGFR 56 (L) >60 mL/min MAIN LAB [place] Comment: The eGFR is not validated for use in drug dosing adjustments.Continue to use estimated creatinine clearance per dosing reference text.Please contact the Clinical Pharmacist for questions. Specimen Blood Performing Organization Address City/[facility] [address]/Zipcode Phone Number MAIN LAB [address] [place] [address] * POC GLUCOSE (07/02/2018 11:51 AM CDT) Glucose, POC 122 (H) 70 - 100 MG/DL MAIN LAB Performing Organization Address [facility] Phone Number MAIN LAB [address] [place] [phone] * POC GLUCOSE (07/02/2018 7:43 AM CDT) Glucose, POC 147 (H) 70 - 100 MG/DL MAIN LAB Performing Organization Address [facility] Phone Number MAIN LAB [address] [place] [phone] * PHOSPHORUS (07/02/2018 5:05 AM CDT) Phosphorus 3.9Comment: NOTE NEW REFERENCE 2.0 - 4.5 MG/DL MAIN LAB RANGES Specimen Blood Performing Organization Address City/[facility] [address]/Zipcode Phone Number MAIN LAB [address] [place] [phone] * MAGNESIUM (07/02/2018 5:05 AM CDT) Magnesium 1.8 1.6 - 2.6 mg/dL MAIN LAB Specimen Blood Performing Organization Address City/[facility] [address]/Zipcode Phone Number [facility] [address] [place] [address] * COMPREHENSIVE METABOLIC PANEL (07/02/2018 5:05 AM CDT) Sodium 138 137 - 147 MMOL/L [facility] MAIN [facility] Potassium 4.3 3.5 - 5.1 MMOL/L [facility] Chloride 98 98 - 110 MMOL/L [facility] MA[facility] Glucose 130 (H) 70 - 100 MG/DL [facility] MAIN [facility] Blood Urea 37 (H) 7 - 25 MG/DL [facility]IN [facility] Nitrogen Creatinine 1.09 (H) 0.4 - 1.00 MG/DL [facility]IN [facility] Calcium 8.8 8.5 - 10.6 MG/DL [facility] Total Protein 5.8 (L) 6.0 - 8.0 G/DL [facility] MAIN [facility] Total Bilirubin 1.2 0.3 - 1.2 MG/DL [facility]IN [facility] Albumin 3.0 (L) 3.5 - 5.0 G/DL [facility] Alk Phosphatase 80 25 - 110 U/L [facility]IN [facility] AST (SGOT) 44 (H) 7 - 40 U/L [facility] CO2 37 (H) 21 - 30 MMOL/L [facility] ALT (SGPT) 18 7 - 56 U/L [facility] Anion Gap 3 3 - 12 K[facility] MAIN LAB eGFR Non 52 (L) >60 mL/min [facility] MAIN LAB Comment: [place] The eGFR is not validated for use in drug dosing adjustments.Continue to use estimated creatinine clearance per dosing reference text.Please contact the Clinical Pharmacist for questions. eGFR >60 >60 mL/min [facility] MAIN [facility] [place] Comment: The eGFR is not validated for use in drug dosing adjustments.Continue to use estimated creatinine clearance per dosing reference text.Please contact the Clinical Pharmacist for questions. Specimen Blood Performing Organization Address City/State/Zipcode Phone Number [facility] [address] [place] [address] * CBC AND DIFF (07/02/2018 5:05 AM CDT) White Blood 18.8 (H) 4.5 - 11.0 K/UL [facility] MAIN [facility] Cells RBC 2.57 (L) 4.0 - 5.0 M/UL [facility] MAIN [facility] Hemoglobin 7.4 (L) 12.0 - 15.0 GM/DL K[facility] MAIN LAB Hematocrit 22.8 (L) 36 - 45 % [facility] MAIN [facility] MCV 88.6 80 - 100 FL [facility] MAIN [facility] MCH 28.8 26 - 34 PG [facility] MAIN [facility] MCHC 32.5 32.0 - 36.0 G/DL MAIN LAB RDW 22.2 (H) 11 - 15 % [facility] MAIN LAB Platelet Count 16 (LL) 150 - 400 K/UL [facility] MAIN [facility] Comment: Critical Result PLT:Called to Tristin VILLARREAL RN at: 06:56:53 by: REY Read back by: Tristin VILLARREAL RN MPV 8.9 7 - 11 FL MAIN LAB Neutrophils 57 41 - 77 % K[facility] MAIN [facility] Lymphocytes 23 (L) 24 - 44 % [facility] MAIN [facility] Monocytes 14 (H) 4 - 12 % K[facility] MAIN LAB Eosinophils 5 0 - 5 % MAIN LAB Basophils 1 0 - 2 % MAIN LAB Absolute 10.80 (H) 1.8 - 7.0 K/UL K[facility] MAIN [facility] Neutrophil Count Absolute Lymph 4.30 1.0 - 4.8 K/UL [facility] MAIN [facility] Count Absolute 2.70 (H) 0 - 0.80 K/UL MAIN LAB Monocyte Count Absolute 0.90 (H) 0 - 0.45 K/UL [facility] MAIN [facility] Eosinophil Count Absolute 0.20 0 - 0.20 K/UL [facility] MAIN [facility] Basophil Count Specimen Blood Performing Organization Address [facility]/Zipcode Phone Number MAIN LAB [address] [place] [address] * PTT (APTT) (07/02/2018 5:05 AM CDT) APTT 29.7 24.0 - 36.5 SEC MAIN LAB Specimen Blood Performing Organization Address [facility] Phone Number MA[facility] LAB [address] [place] [address] * PROTIME INR (PT) (07/02/2018 5:05 AM CDT) INR 1.5 (H) 0.8 - 1.2 MAIN LAB Specimen Blood Performing Organization Address [facility] Phone Number MA[facility] LAB [address] [place] [address] * HAPTOGLOBIN (07/02/2018 5:05 AM CDT) Haptoglobin 49 16 - 200 MG/DL MAIN LAB Specimen Blood Performing Organization Address [facility] Phone Number [facility] [address] [place] [address] * LDH-LACTATE DEHYDROGENASE (07/02/2018 5:05 AM CDT) Lactate 396 (H) 100 - 210 U/L [facility] MAIN LAB Dehydrogenase Specimen Blood Performing Organization Address [facility] Phone Number [facility] [address] [place] [address] * POC GLUCOSE (07/01/2018 9:25 PM CDT) Glucose, POC 210 (H) 70 - 100 MG/DL [facility] Performing Organization Address [facility] Phone Number [facility] [address] [place] [address] * POC GLUCOSE (07/01/2018 5:14 PM CDT) Glucose, POC 120 (H) 70 - 100 MG/DL [facility] Performing Organization Address [facility] Phone Number [facility]IN [facility] [address] [place] [phone] * BASIC METABOLIC PANEL (07/01/2018 1:47 PM CDT) Sodium 141 137 - 147 MMOL/L [facility] MAIN [facility] Potassium 4.0 3.5 - 5.1 MMOL/L [facility] Chloride 99 98 - 110 MMOL/L [facility] MAIN [facility] CO2 34 (H) 21 - 30 MMOL/L [facility] Anion Gap 8 3 - 12 [facility] MAIN [facility] Glucose 154 (H) 70 - 100 MG/DL [facility] Blood Urea 39 (H) 7 - 25 MG/DL [facility] MAIN [facility] Nitrogen Creatinine 1.28 (H) 0.4 - 1.00 MG/DL [facility] MAIN [facility] Calcium 8.9 8.5 - 10.6 MG/DL [facility] MAIN LAB eGFR Non 43 (L) >60 mL/min [facility] Comment: [place] The eGFR is not validated for use in drug dosing adjustments.Continue to use estimated creatinine clearance per dosing reference text.Please contact the Clinical Pharmacist for questions. eGFR 53 (L) >60 mL/min [facility] [place] Comment: The eGFR is not validated for use in drug dosing adjustments.Continue to use estimated creatinine clearance per dosing reference text.Please contact the Clinical Pharmacist for questions. Specimen Blood Performing Organization Address City/[facility] [address]/[facility]code Phone Number [facility] [address] [place] [address] * POC GLUCOSE (07/01/2018 12:31 PM CDT) Glucose, POC 99 70 - 100 MG/DL [facility] Performing Organization Address [facility] [address]/[facility] Hospitalcode Phone Number [facility] [address] [place] [address] * POC GLUCOSE (07/01/2018 7:28 AM CDT) Glucose, POC 80 70 - 100 MG/DL [facility] Performing Organization Address [facility] [address]/[facility]code Phone Number [facility] [address] [place] [address] * PHOSPHORUS (07/01/2018 5:06 AM CDT) Phosphorus 4.1Comment: NOTE NEW REFERENCE 2.0 - 4.5 MG/DL [facility] RANGES Specimen Blood Performing Organization Address [facility] [address]/[facility] Hospitalco[facility] Phone Number [facility] [address] [place] [address] * CBC AND DIFF (07/01/2018 5:06 AM CDT) White Blood 17.7 (H)Comment: Confirmed by 4.5 - 11.0 K/[facility] Cells smear RBC 2.63 (L) 4.0 - 5.0 M/UL MAIN LAB Hemoglobin 7.5 (L) 12.0 - 15.0 GM/DL MAIN LAB Hematocrit 23.5 (L) 36 - 45 % MAIN LAB MCV 89.2 80 - 100 FL MAIN LAB MCH 28.5 26 - 34 PG MAIN LAB MCHC 31.9 (L) 32.0 - 36.0 G/DL MAIN LAB RDW 22.8 (H) 11 - 15 % MAIN LAB Platelet Count 22 (LL) 150 - 400 K/[facility] Comment: Confirmed by smear Critical Result PLT:Called to Rafa VILLARREAL RN at: 06:37:38 by: OMARI Read back by: Rafa VILLARREAL RN MPV 10.6 7 - 11 FL MAIN LAB Segmented 61 41 - 77 % MAIN LAB Neutrophils Lymphocytes 17 (L) 24 - 44 % MAIN LAB Monocytes 17 (H) 4 - 12 % [facility] Eosinophil 5 0 - 5 % [facility] ANISO PRESENT MAIN LAB HYPO PRESENT MAIN LAB POIK PRESENT MAIN LAB POLY PRESENT MAIN LAB Ovalocyte PRESENT MAIN LAB Schistocyte PRESENT MAIN LAB Target PRESENT MAIN LAB Gregory Cruz PRESENT MAIN LAB Bodies Platelet MKD DEC MAIN LAB Estimate Absolute 10.80 (H) 1.8 - 7.0 K/UL [facility] Neutrophil Count Manual Specimen Blood Performing Organization Address City/State/Zipcode Phone Number [facility] [address] [place] [address] * COMPREHENSIVE METABOLIC PANEL (07/01/2018 5:06 AM CDT) Sodium 142 137 - 147 MMOL/L [facility] Potassium 4.1 3.5 - 5.1 MMOL/L MAIN LAB Chloride 101 98 - 110 MMOL/L [facility] Glucose 103 (H) 70 - 100 MG/DL [facility] Blood Urea 42 (H) 7 - 25 MG/DL [facility] Nitrogen Creatinine 1.12 (H) 0.4 - 1.00 MG/DL [facility] Calcium 8.7 8.5 - 10.6 MG/DL [facility] Total Protein 5.8 (L) 6.0 - 8.0 G/DL [facility] Total Bilirubin 1.2 0.3 - 1.2 MG/DL [facility] Albumin 3.0 (L) 3.5 - 5.0 G/DL [facility] Alk Phosphatase 80 25 - 110 U/L [facility] AST (SGOT) 38 7 - 40 U/L [facility] CO2 34 (H) 21 - 30 MMOL/L MAIN LAB ALT (SGPT) 18 7 - 56 U/L MAIN LAB Anion Gap 7 3 - 12 MAIN LAB eGFR Non 51 (L) >60 mL/min MAIN LAB Comment: [place] The eGFR is not validated for use in drug dosing adjustments.Continue to use estimated creatinine clearance per dosing reference text.Please contact the Clinical Pharmacist for questions. eGFR >60 >60 mL/min MAIN LAB [place] Comment: The eGFR is not validated for use in drug dosing adjustments.Continue to use estimated creatinine clearance per dosing reference text.Please contact the Clinical Pharmacist for questions. Specimen Blood Performing Organization Address City/State/Zipcode Phone Number [facility] [address] [place] [address] * MAGNESIUM (07/01/2018 5:06 AM CDT) Magnesium 1.6 1.6 - 2.6 mg/dL [facility] Specimen Blood Performing Organization Address [facility] [address]/[facility] Phone Number [facility] [address] [place] [address] * PTT (APTT) (07/01/2018 5:06 AM CDT) APTT 27.5 24.0 - 36.5 SEC [facility] Specimen Blood Performing Organization Address [facility] [address]/[facility] Hospitalcode Phone Number MAIN LAB [address] [place] [address] * PROTIME INR (PT) (07/01/2018 5:06 AM CDT) INR 1.6 (H) 0.8 - 1.2 MAIN LAB Specimen Blood Performing Organization Address [facility] [address]/[facility] Hospitalcode Phone Number MAIN LAB [address] [place] [address] * HAPTOGLOBIN (07/01/2018 5:06 AM CDT) Haptoglobin 58 16 - 200 MG/DL MAIN LAB Specimen Blood Performing Organization Address [facility] [address]/[facility] Hospitalcode Phone Number MAIN LAB [address] [place] [address] * LDH-LACTATE DEHYDROGENASE (07/01/2018 5:06 AM CDT) Lactate 375 (H) 100 - 210 U/L MAIN LAB Dehydrogenase Specimen Blood Performing Organization Address [facility] [address]/[facility]code Phone Number MAIN LAB [address] [place] [address] * POC GLUCOSE (06/30/2018 9:36 PM CDT) Glucose, POC 93 70 - 100 MG/DL MAIN LAB Performing Organization Address [facility] [address]/[facility]code Phone Number MAIN LAB [address] [place] [address] * CBC (06/30/2018 6:15 PM CDT) White Blood 17.2 (H) 4.5 - 11.0 K/UL [facility] Cells RBC 2.62 (L) 4.0 - 5.0 M/UL [facility] Hemoglobin 7.5 (L) 12.0 - 15.0 GM/DL MAIN LAB Hematocrit 23.3 (L) 36 - 45 % [facility] MCV 88.8 80 - 100 FL [facility] MCH 28.7 26 - 34 PG MAIN LAB MCHC 32.3 32.0 - 36.0 G/DL MAIN LAB RDW 23.0 (H) 11 - 15 % [facility] Platelet Count 31 (L) 150 - 400 K/[facility] MAIN LAB MPV 12.4 (H) 7 - 11 FL [facility] Specimen Blood Performing Organization Address City/[facility] [address]/[facility]code Phone Number MAIN LAB [address] [place] [address] * PROTIME INR (PT) (06/30/2018 6:15 PM CDT) INR 1.6 (H) 0.8 - 1.2 MAIN LAB Specimen Blood Performing Organization Address City/[facility] [address]/[facility]code Phone Number MAIN LAB [address] [place] [address] * BILIRUBIN,TOTAL (06/30/2018 6:15 PM CDT) Total Bilirubin 1.3 (H) 0.3 - 1.2 MG/DL MAIN LAB Specimen Blood Performing Organization Address City/[facility] [address]/[facility] Hospitalcode Phone Number MAIN LAB [address] [place] [address] * HAPTOGLOBIN (06/30/2018 6:15 PM CDT) Haptoglobin 57 16 - 200 MG/DL MAIN LAB Specimen Blood Performing Organization Address City/[facility] [address]/[facility]code Phone Number MAIN LAB [address] [place] [address] * LDH-LACTATE DEHYDROGENASE (06/30/2018 6:15 PM CDT) Lactate 357 (H) 100 - 210 U/L MAIN LAB Dehydrogenase Specimen Blood Performing Organization Address City/[facility] [address]/[facility]code Phone Number MAIN LAB [address] [place] [address] * FIBRINOGEN (06/30/2018 6:15 PM CDT) Fibrinogen 251 200 - 400 MG/DL [facility] Specimen Blood Performing Organization Address City/[facility] [address]/Zipcode Phone Number MAIN LAB [address] [place] [address] * BASIC METABOLIC PANEL (06/30/2018 6:15 PM CDT) Sodium 141 137 - 147 MMOL/L MAIN LAB Potassium 3.8 3.5 - 5.1 MMOL/L [facility] Chloride 103 98 - 110 MMOL/L [facility] CO2 33 (H) 21 - 30 MMOL/L [facility] Anion Gap 5 3 - 12 [facility] Glucose 81 70 - 100 MG/DL MAIN LAB Blood Urea 43 (H) 7 - 25 MG/DL MAIN LAB Nitrogen Creatinine 1.17 (H) 0.4 - 1.00 MG/DL [facility] Calcium 8.9 8.5 - 10.6 MG/DL MAIN LAB eGFR Non 48 (L) >60 mL/min MAIN LAB Comment: [place] The eGFR is not validated for use in drug dosing adjustments.Continue to use estimated creatinine clearance per dosing reference text.Please contact the Clinical Pharmacist for questions. eGFR 58 (L) >60 mL/min MAIN LAB [place] Comment: The eGFR is not validated for use in drug dosing adjustments.Continue to use estimated creatinine clearance per dosing reference text.Please contact the Clinical Pharmacist for questions. Specimen Blood Performing Organization Address City/State/Zipcode Phone Number MAIN LAB [address] [place] [address] * POC GLUCOSE (06/30/2018 5:57 PM CDT) Glucose, POC 82 70 - 100 MG/DL [facility] Performing Organization Address City/[facility] [address]/Zipcode Phone Number MAIN LAB [address] [place] [address] * POC GLUCOSE (06/30/2018 12:55 PM CDT) Glucose, POC 92 70 - 100 MG/DL MAIN LAB Performing Organization Address City/State/Zipcode Phone Number MAIN LAB [address] [place] [address] * POC GLUCOSE (06/30/2018 8:06 AM CDT) Glucose, POC 101 (H) 70 - 100 MG/DL [facility] Performing Organization Address City/State/Zipcode Phone Number MAIN LAB [address] [place] [address] * BNP (B-TYPE NATRIURETIC PEPTI) (06/30/2018 5:18 AM CDT) Pathologist [facility] B Type 364.0 (H) 0 - 100 PG/ML MAIN LAB Natriuretic Peptide Performing Organization Address [facility] [address]/[facility]code Phone Number MAIN LAB [address] [place] [address] * PHOSPHORUS (06/30/2018 5:18 AM CDT) Pathologist [facility] Phosphorus 4.6 (H)Comment: NOTE NEW 2.0 - 4.5 MG/DL [facility] REFERENCE RANGES Specimen Blood Performing Organization Address [facility] [address]/[facility]code Phone Number MAIN LAB [address] [place] [address] * CBC AND DIFF (06/30/2018 5:18 AM CDT) Pathologist [facility] White Blood 17.9 (H) 4.5 - 11.0 K/UL MAIN LAB Cells RBC 2.62 (L) 4.0 - 5.0 M/UL MAIN LAB Hemoglobin 7.5 (L) 12.0 - 15.0 GM/DL MAIN LAB Hematocrit 23.3 (L) 36 - 45 % MAIN LAB MCV 88.9 80 - 100 FL MAIN LAB MCH 28.4 26 - 34 PG MAIN LAB MCHC 32.0 32.0 - 36.0 G/DL MAIN LAB RDW 22.1 (H) 11 - 15 % [facility] Platelet Count 25 (L) 150 - 400 K/UL MAIN LAB MPV 10.5 7 - 11 FL MAIN LAB Nucleated RBCs 1 K/UL MAIN LAB Segmented 68 41 - 77 % MAIN LAB Neutrophils Lymphocytes 18 (L) 24 - 44 % MAIN LAB Monocytes 9 4 - 12 % MAIN LAB Eosinophil 5 0 - 5 % MAIN LAB ANISO PRESENT MAIN LAB Ovalocyte PRESENT MAIN LAB Target PRESENT MAIN LAB Platelet MKD DEC MAIN LAB Estimate Absolute 12.17 (H) 1.8 - 7.0 K/UL MAIN LAB Neutrophil Count Manual Specimen Blood Performing Organization Address [facility] [address]/Zipcode Phone Number MAIN LAB [address] [place] [address] * COMPREHENSIVE METABOLIC PANEL (06/30/2018 5:18 AM CDT) Sodium 140 137 - 147 MMOL/L [facility] Potassium 4.2 3.5 - 5.1 MMOL/L [facility] Chloride 104 98 - 110 MMOL/L [facility] Glucose 64 (L) 70 - 100 MG/DL [facility] Blood Urea 46 (H) 7 - 25 MG/DL [facility] Nitrogen Creatinine 1.24 (H) 0.4 - 1.00 MG/DL [facility] Calcium 8.5 8.5 - 10.6 MG/DL [facility] Total Protein 5.8 (L) 6.0 - 8.0 G/DL [facility] Total Bilirubin 1.2 0.3 - 1.2 MG/DL [facility] Albumin 3.1 (L) 3.5 - 5.0 G/DL [facility] Alk Phosphatase 79 25 - 110 U/L MAIN LAB AST (SGOT) 44 (H) 7 - 40 U/L [facility] CO2 29 21 - 30 MMOL/L [facility] ALT (SGPT) 17 7 - 56 U/L MAIN LAB Anion Gap 7 3 - 12 MAIN LAB eGFR Non 45 (L) >60 mL/min MAIN LAB Comment: [place] The eGFR is not validated for use in drug dosing adjustments.Continue to use estimated creatinine clearance per dosing reference text.Please contact the Clinical Pharmacist for questions. eGFR 55 (L) >60 mL/min MAIN LAB [place] Comment: The eGFR is not validated for use in drug dosing adjustments.Continue to use estimated creatinine clearance per dosing reference text.Please contact the Clinical Pharmacist for questions. Specimen Blood Performing Organization Address City/[facility] [address]/Zipcode Phone Number [facility] [address] [place] [address] * MAGNESIUM (06/30/2018 5:18 AM CDT) Magnesium 1.8 1.6 - 2.6 mg/dL [facility] Specimen Blood Performing Organization Address City/[facility] [address]/Zipcode Phone Number [facility] [address] [place] [address] * PTT (APTT) (06/30/2018 5:18 AM CDT) APTT 25.8 24.0 - 36.5 SEC [facility] Specimen Blood Performing Organization Address City/[facility] [address]/Zipcode Phone Number [facility] [address] [place] [address] * PROTIME INR (PT) (06/30/2018 5:18 AM CDT) INR 1.5 (H) 0.8 - 1.2 MAIN LAB Specimen Blood Performing Organization Address [facility] [address]/[facility] Phone Number MAIN LAB [address] [place] [address] * RETICULOCYTE COUNT (06/30/2018 5:18 AM CDT) Retic, 3.4 (H) 0.5 - 2.0 % [facility] Uncorrected Retic, 1.9 % [facility] Corrected Retic, Absolute 86.2 30 - 94 K/UL MAIN LAB Specimen Blood Performing Organization Address [facility] [address]/[facility]code Phone Number MAIN LAB [address] [place] [phone] * HAPTOGLOBIN (06/30/2018 5:18 AM CDT) Pathologist [facility] Haptoglobin 59 16 - 200 MG/DL MAIN LAB Specimen Blood Performing Organization Address [facility] [address]/[facility]code Phone Number MAIN LAB [address] [place] [address] * LDH-LACTATE DEHYDROGENASE (06/30/2018 5:18 AM CDT) Pathologist [facility] Lactate 414 (H) 100 - 210 U/L MAIN LAB Dehydrogenase Specimen Blood Performing Organization Address [facility] [address]/[facility] Phone Number MAIN LAB [address] [place] [address] * POC GLUCOSE (06/29/2018 9:32 PM CDT) Glucose, POC 161 (H) 70 - 100 MG/DL MAIN LAB Performing Organization Address [facility] [address]/[facility] Phone Number MAIN LAB [address] [place] [address] * POC GLUCOSE (06/29/2018 5:58 PM CDT) Glucose, POC 134 (H) 70 - 100 MG/DL MAIN LAB Performing Organization Address [facility] [address]/[facility] Phone Number MAIN LAB [address] [place] [address] * BILIRUBIN, DIRECT (06/29/2018 12:31 PM CDT) Bilirubin, 0.3 <0.4 MG/DL MAIN LAB Direct Specimen Blood Performing Organization Address [facility] [address]/[facility] Phone Number MAIN LAB [address] [place] [address] * LDH-LACTATE DEHYDROGENASE (06/29/2018 12:31 PM CDT) Lactate 425 (H) 100 - 210 U/L MAIN LAB Dehydrogenase Specimen Blood Performing Organization Address [facility] [address]/[facility] Phone Number MAIN LAB [address] [place] [address] * RETICULOCYTE COUNT (06/29/2018 12:31 PM CDT) Retic, 3.0 (H) 0.5 - 2.0 % [facility] Uncorrected Retic, 1.7 % [facility] Corrected Retic, Absolute 82.3 30 - 94 K/UL MAIN LAB Specimen Blood Performing Organization Address [facility] Phone Number MAIN LAB [address] [place] [address] * DIRECT ANTIGLOBULIN TEST(STEVEN) (06/29/2018 12:31 PM CDT) STEVEN, Broad NEG MAIN LAB [facility] [place] Specimen Blood Performing Organization Address [facility] Phone Number MAIN LAB [address] [place] [address] * HAPTOGLOBIN (06/29/2018 12:31 PM CDT) Pathologist [facility] Haptoglobin 65 16 - 200 MG/DL MAIN LAB Specimen Blood Performing Organization Address [facility] Phone Number MA[facility] LAB [address] [place] [address] * IMMATURE PLATELET FRACTION (06/29/2018 12:31 PM CDT) Immature 40.0 (H)Comment: TEST 1.1 - 7.1 % [facility] Platelet PERFORMED BY [facility] Specimen Blood Performing Organization Address [facility] [address]/[facility] Phone Number MAIN LAB [address] [place] [address] * FIBRINOGEN (06/29/2018 12:31 PM CDT) Fibrinogen 234 200 - 400 MG/DL MAIN LAB Specimen Blood Performing Organization Address [facility] [address]/[facility] Phone Number MAIN LAB [address] [place] [address] * BASIC METABOLIC PANEL (06/29/2018 12:31 PM CDT) Sodium 141 137 - 147 MMOL/L [facility] Potassium 4.8 3.5 - 5.1 MMOL/L [facility] Chloride 103 98 - 110 MMOL/L [facility] CO2 29 21 - 30 MMOL/L [facility] Anion Gap 9 3 - 12 [facility] Glucose 111 (H) 70 - 100 MG/DL [facility] Blood Urea 49 (H) 7 - 25 MG/DL [facility] Nitrogen Creatinine 1.29 (H) 0.4 - 1.00 MG/DL [facility] Calcium 7.6 (L) 8.5 - 10.6 MG/DL [facility] eGFR Non 43 (L) >60 mL/min MAIN LAB Comment: [place] The eGFR is not validated for use in drug dosing adjustments.Continue to use estimated creatinine clearance per dosing reference text.Please contact the Clinical Pharmacist for questions. eGFR 52 (L) >60 mL/min MAIN LAB [place] Comment: The eGFR is not validated for use in drug dosing adjustments.Continue to use estimated creatinine clearance per dosing reference text.Please contact the Clinical Pharmacist for questions. Specimen Blood Performing Organization Address City/State/Zipcode Phone Number MAIN LAB [address] [place] [address] * MAGNESIUM (06/29/2018 12:31 PM CDT) Magnesium 1.8 1.6 - 2.6 mg/dL MAIN LAB Specimen Blood Performing Organization Address City/State/Zipcode Phone Number MAIN LAB [address] [place] [address] * POC GLUCOSE (06/29/2018 11:32 AM CDT) Glucose, POC 109 (H) 70 - 100 MG/DL MAIN LAB Performing Organization Address City/State/Zipcode Phone Number MAIN LAB [address] [place] [address] * POC GLUCOSE (06/29/2018 8:51 AM CDT) Glucose, POC 88 70 - 100 MG/DL [facility] Performing Organization Address City/State/Zipcode Phone Number MAIN LAB [address] [place] [address] * POC GLUCOSE (06/29/2018 6:26 AM CDT) Glucose, POC 84 70 - 100 MG/DL [facility] Performing Organization Address City/[facility] [address]/Zipcode Phone Number [facility] [address] [place] [address] * PERIPHERAL SMEAR (06/29/2018 4:25 AM CDT) Pathologist [facility] Peripheral MACROCYTIC ANEMIA WITH [facility] MAIN [facility] [...] indicated in this report. Performing Organization Address City/[facility] [address]/Zipcode Phone Number MAIN LAB [address] [place] [phone] * PHOSPHORUS (06/29/2018 4:25 AM CDT) Pathologist [facility] Phosphorus 4.8 (H)Comment: NOTE NEW 2.0 - 4.5 MG/DL [facility]IN [facility] REFERENCE RANGES Specimen Blood Performing Organization Address City/[facility] [address]/Zipcode Phone Number [facility] [address] [place] [address] * CBC AND DIFF (06/29/2018 4:25 AM CDT) Pathologist [facility] White Blood 21.6 (H) 4.5 - 11.0 K/UL [facility] Cells RBC 2.69 (L) 4.0 - 5.0 M/UL [facility] Hemoglobin 7.7 (L) 12.0 - 15.0 GM/DL [facility] Hematocrit 23.8 (L) 36 - 45 % [facility] MCV 88.4 80 - 100 FL [facility] MCH 28.5 26 - 34 PG [facility] MCHC 32.3 32.0 - 36.0 G/DL [facility] RDW 21.9 (H) 11 - 15 % [facility] Platelet Count 32 (L) 150 - 400 K/UL [facility] MPV 10.9 7 - 11 FL [facility] Nucleated RBCs 2 K/UL [facility] Segmented 61 41 - 77 % [facility] Neutrophils Bands 1 0 - 10 % [facility] Lymphocytes 20 (L) 24 - 44 % [facility] Monocytes 9 4 - 12 % [facility] Eosinophil 8 (H) 0 - 5 % [facility] Myelocyte 1 % [facility] ANISO PRESENT [facility] HYPO PRESENT [facility] Ovalocyte PRESENT [facility] Target PRESENT [facility] Platelet MKD DEC [facility]IN [facility] Estimate Absolute 13.40 (H) 1.8 - 7.0 K/UL [facility]IN [facility] Neutrophil Count Manual Acanthocytes PRESENT [facility]IN [facility] Specimen Blood Performing Organization Address City/State/Zipcode Phone Number MAIN LAB [address] [place] [address] * COMPREHENSIVE METABOLIC PANEL (06/29/2018 4:25 AM CDT) Sodium 138 137 - 147 MMOL/L [facility] Potassium 4.1 3.5 - 5.1 MMOL/L [facility] Chloride 106 98 - 110 MMOL/L [facility] Glucose 84 70 - 100 MG/DL [facility] Blood Urea 54 (H) 7 - 25 MG/DL [facility] Nitrogen Creatinine 1.37 (H) 0.4 - 1.00 MG/DL [facility]IN [facility] Calcium 8.6 8.5 - 10.6 MG/DL [facility] Total Protein 6.0 6.0 - 8.0 G/DL [facility] Total Bilirubin 1.4 (H) 0.3 - 1.2 MG/DL [facility] Albumin 3.1 (L) 3.5 - 5.0 G/DL [facility]IN [facility] Alk Phosphatase 78 25 - 110 U/L [facility] AST (SGOT) 33 7 - 40 U/L [facility] CO2 27 21 - 30 MMOL/L [facility] ALT (SGPT) 16 7 - 56 U/L [facility] Anion Gap 5 3 - 12 [facility]IN [facility] eGFR Non 40 (L) >60 mL/min [facility] Comment: [place] The eGFR is not validated for use in drug dosing adjustments.Continue to use estimated creatinine clearance per dosing reference text.Please contact the Clinical Pharmacist for questions. eGFR 49 (L) >60 mL/min [facility] [place] Comment: The eGFR is not validated for use in drug dosing adjustments.Continue to use estimated creatinine clearance per dosing reference text.Please contact the Clinical Pharmacist for questions. Specimen Blood Performing Organization Address City/State/Zipcode Phone Number MAIN LAB [address] [place] [address] * MAGNESIUM (06/29/2018 4:25 AM CDT) Magnesium 1.7 1.6 - 2.6 mg/dL [facility]IN [facility] Specimen Blood Performing Organization Address [facility] [address] [facility] Phone Number [facility] [address] [place] [address] * PTT (APTT) (06/29/2018 4:25 AM CDT) APTT 34.3 24.0 - 36.5 SEC MAIN LAB Specimen Blood Performing Organization Address [facility] [address] Phone Number MAIN LAB [address] [place] [address] * PROTIME INR (PT) (06/29/2018 4:25 AM CDT) INR 1.5 (H) 0.8 - 1.2 MAIN LAB Specimen Blood Performing Organization Address [facility] [address] Phone Number MAIN LAB [address] [place] [address] * MAGNESIUM (06/28/2018 9:20 PM CDT) Magnesium 1.8 1.6 - 2.6 mg/dL MAIN LAB Specimen Blood Performing Organization Address [facility] [address] Phone Number MAIN LAB [address] [place] [address] * BASIC METABOLIC PANEL (06/28/2018 9:20 PM CDT) Sodium 137 137 - 147 MMOL/L [facility] MAIN [facility] Potassium 5.3 (H) 3.5 - 5.1 MMOL/L [facility] Chloride 105 98 - 110 MMOL/L [facility]IN [facility] CO2 25 21 - 30 MMOL/L [facility] Anion Gap 7 3 - 12 [facility] Glucose 122 (H) 70 - 100 MG/DL [facility] Blood Urea 57 (H) 7 - 25 MG/DL [facility] Nitrogen Creatinine 1.64 (H) 0.4 - 1.00 MG/DL [facility]IN [facility] Calcium 8.4 (L) 8.5 - 10.6 MG/DL [facility] MAIN [facility] eGFR Non 33 (L) >60 mL/min [facility] Comment: [place] The eGFR is not validated for use in drug dosing adjustments.Continue to use estimated creatinine clearance per dosing reference text.Please contact the Clinical Pharmacist for questions. eGFR 40 (L) >60 mL/min [facility]IN [facility] [place] Comment: The eGFR is not validated for use in drug dosing adjustments.Continue to use estimated creatinine clearance per dosing reference text.Please contact the Clinical Pharmacist for questions. Specimen Blood Performing Organization Address City/[facility] [address]/[facility] Phone Number MAIN LAB [address] [place] [phone] * POC GLUCOSE (06/28/2018 9:15 PM CDT) Glucose, POC 118 (H) 70 - 100 MG/DL [facility] MAIN [facility] Performing Organization Address [facility] [address]/[facility] Phone Number [facility] [address] [phone] * POC GLUCOSE (06/28/2018 4:52 PM CDT) Glucose, POC 78 70 - 100 MG/DL [facility] Performing Organization Address [facility] Phone Number MAIN LAB [address] [phone] * CBC (06/28/2018 10:01 AM CDT) White Blood 18.4 (H) 4.5 - 11.0 K/UL [facility] Cells RBC 2.61 (L) 4.0 - 5.0 M/UL [facility] Hemoglobin 7.4 (L) 12.0 - 15.0 GM/DL [facility] Hematocrit 23.5 (L) 36 - 45 % [facility] MCV 89.9 80 - 100 FL [facility] MCH 28.3 26 - 34 PG MAIN LAB MCHC 31.5 (L) 32.0 - 36.0 G/DL MAIN LAB RDW 23.2 (H) 11 - 15 % [facility] Platelet Count 45 (L) 150 - 400 K/UL MAIN LAB MPV 12.3 (H) 7 - 11 FL MAIN LAB Specimen Blood Performing Organization Address [facility] [address]/[facility] Phone Number MAIN LAB [address] [phone] * BASIC METABOLIC PANEL (06/28/2018 10:01 AM CDT) Sodium 139 137 - 147 MMOL/L [facility] Potassium 4.7 3.5 - 5.1 MMOL/L MAIN LAB Chloride 108 98 - 110 MMOL/L [facility] CO2 25 21 - 30 MMOL/L [facility] Anion Gap 6 3 - 12 [facility] Glucose 148 (H) 70 - 100 MG/DL MAIN LAB Blood Urea 57 (H) 7 - 25 MG/DL [facility] Nitrogen Creatinine 1.71 (H) 0.4 - 1.00 MG/DL [facility] Calcium 8.4 (L) 8.5 - 10.6 MG/DL MAIN LAB eGFR Non 31 (L) >60 mL/min MAIN LAB Comment: [place] The eGFR is not validated for use in drug dosing adjustments.Continue to use estimated creatinine clearance per dosing reference text.Please contact the Clinical Pharmacist for questions. eGFR 38 (L) >60 mL/min MAIN LAB [place] Comment: The eGFR is not validated for use in drug dosing adjustments.Continue to use estimated creatinine clearance per dosing reference text.Please contact the Clinical Pharmacist for questions. Specimen Blood Performing Organization Address City/[facility] [address]/[facility] Phone Number [facility] [address] [place] [address] * POC GLUCOSE (06/28/2018 9:55 AM CDT) Glucose, POC 191 (H) 70 - 100 MG/DL [facility] Performing Organization Address [facility] Phone Number [facility] [address] [place] [address] * CBC (06/28/2018 6:50 AM CDT) White Blood 18.3 (H) 4.5 - 11.0 K/UL [facility] Cells RBC 2.38 (L) 4.0 - 5.0 M/UL [facility] Hemoglobin 6.8 (L) 12.0 - 15.0 GM/DL [facility] Hematocrit 21.2 (L) 36 - 45 % MAIN LAB MCV 89.3 80 - 100 FL MAIN LAB MCH 28.4 26 - 34 PG [facility] MCHC 31.8 (L) 32.0 - 36.0 G/DL [facility] RDW 22.8 (H) 11 - 15 % MAIN LAB Platelet Count 38 (L) 150 - 400 K/UL MAIN LAB MPV 11.4 (H) 7 - 11 FL [facility] Specimen Blood Performing Organization Address City/[facility] [address]/Zipcode Phone Number [facility] [address] [place] [address] * PHOSPHORUS (06/28/2018 4:20 AM CDT) Phosphorus 5.0 (H)Comment: NOTE NEW 2.0 - 4.5 MG/DL [facility] REFERENCE RANGES Specimen Blood Performing Organization Address [facility] [address]/[facility]code Phone Number [facility] [address] [place] [address] * MAGNESIUM (06/28/2018 4:20 AM CDT) Magnesium 1.8 1.6 - 2.6 mg/dL [facility] Specimen Blood Performing Organization Address [facility] [address]/[facility] Phone Number [facility] [address] [phone] * COMPREHENSIVE METABOLIC PANEL (06/28/2018 4:20 AM CDT) Sodium 138 137 - 147 MMOL/L [facility] Potassium 5.5 (H) 3.5 - 5.1 MMOL/L [facility] Chloride 109 98 - 110 MMOL/L [facility] Glucose 101 (H) 70 - 100 MG/DL [facility] Blood Urea 56 (H) 7 - 25 MG/DL [facility] Nitrogen Creatinine 1.59 (H) 0.4 - 1.00 MG/DL [facility] Calcium 8.3 (L) 8.5 - 10.6 MG/DL [facility] Total Protein 5.6 (L) 6.0 - 8.0 G/DL [facility] Total Bilirubin 1.2 0.3 - 1.2 MG/DL [facility] Albumin 2.9 (L) 3.5 - 5.0 G/DL [facility] Alk Phosphatase 74 25 - 110 U/L [facility] AST (SGOT) 26 7 - 40 U/L [facility] CO2 25 21 - 30 MMOL/L [facility] ALT (SGPT) 12 7 - 56 U/L [facility] Anion Gap 4 3 - 12 [facility] eGFR Non 34 (L) >60 mL/min [facility] Comment: [place] The eGFR is not validated for use in drug dosing adjustments.Continue to use estimated creatinine clearance per dosing reference text.Please contact the Clinical Pharmacist for questions. eGFR 41 (L) >60 mL/min [facility] [place] Comment: The eGFR is not validated for use in drug dosing adjustments.Continue to use estimated creatinine clearance per dosing reference text.Please contact the Clinical Pharmacist for questions. Specimen Blood Performing Organization Address City/[facility] [address]/Zipcode Phone Number [facility] [address] [place] [address] * PTT (APTT) (06/28/2018 4:20 AM CDT) APTT 31.5 24.0 - 36.5 SEC [facility] Specimen Blood Performing Organization Address [facility] [address]/[facility]code Phone Number [facility] [address] [place] [address] * PROTIME INR (PT) (06/28/2018 4:20 AM CDT) INR 1.5 (H) 0.8 - 1.2 MAIN LAB Specimen Blood Performing Organization Address [facility] [address]/[facility] Phone Number [facility] [address] [place] [address] * CBC AND DIFF (06/28/2018 4:20 AM CDT) White Blood 22.2 (H) 4.5 - 11.0 K/UL [facility] Cells RBC 2.55 (L) 4.0 - 5.0 M/UL [facility] Hemoglobin 7.2 (L) 12.0 - 15.0 GM/DL [facility] Hematocrit 23.2 (L) 36 - 45 % [facility] MCV 90.9 80 - 100 FL MAIN LAB MCH 28.2 26 - 34 PG MAIN LAB MCHC 31.1 (L) 32.0 - 36.0 G/DL MAIN LAB RDW 22.1 (H) 11 - 15 % [facility] Platelet Count 54 (L)Comment: Platelet count 150 - 400 K/UL [facility] performed on Sodium Citrate Specimen MPV 10.8 7 - 11 FL [facility] Segmented 62 41 - 77 % [facility] Neutrophils Lymphocytes 15 (L) 24 - 44 % MAIN LAB Monocytes 11 4 - 12 % [facility] Eosinophil 12 (H) 0 - 5 % [facility] ANISO PRESENT MAIN LAB HYPO PRESENT MAIN LAB POIK PRESENT MAIN LAB POLY PRESENT MAIN LAB Ovalocyte PRESENT MAIN LAB Schistocyte PRESENT MAIN LAB Target PRESENT MAIN LAB Gregory Cruz PRESENT [facility] Bodies Absolute 13.76 (H) 1.8 - 7.0 K/UL [facility] Neutrophil Count Manual Specimen Blood Performing Organization Address City/[facility] [address]/[facility] Phone Number [facility] [address] [place] [address] * POC GLUCOSE (06/28/2018 4:18 AM CDT) Glucose, POC 108 (H) 70 - 100 MG/DL [facility] Performing Organization Address [facility] [address]/[facility] Phone Number [facility] [address] [place] [address] * POC GLUCOSE (06/27/2018 8:09 PM CDT) Glucose, POC 123 (H) 70 - 100 MG/DL [facility] Performing Organization Address [facility] [address]/[facility] Phone Number MAIN LAB [address] [phone] * POC GLUCOSE (06/27/2018 5:51 PM CDT) Glucose, POC 138 (H) 70 - 100 MG/DL [facility] Performing Organization Address [facility] [address]/[facility] Phone Number MAIN LAB [address] [place] [address] * MAGNESIUM (06/27/2018 3:12 PM CDT) Magnesium 2.0 1.6 - 2.6 mg/dL [facility] Specimen Blood Performing Organization Address [facility] [address]/[facility] Phone Number MAIN LAB [address] [phone] * BASIC METABOLIC PANEL (06/27/2018 3:12 PM CDT) Sodium 137 137 - 147 MMOL/L [facility] Potassium 4.8 3.5 - 5.1 MMOL/L [facility] Chloride 108 98 - 110 MMOL/L [facility] CO2 25 21 - 30 MMOL/L [facility] Anion Gap 4 3 - 12 [facility] Glucose 168 (H) 70 - 100 MG/DL [facility] Blood Urea 55 (H) 7 - 25 MG/DL [facility] Nitrogen Creatinine 1.80 (H) 0.4 - 1.00 MG/DL [facility] Calcium 8.7 8.5 - 10.6 MG/DL [facility] eGFR Non 29 (L) >60 mL/min [facility] Comment: [place] The eGFR is not validated for use in drug dosing adjustments.Continue to use estimated creatinine clearance per dosing reference text.Please contact the Clinical Pharmacist for questions. eGFR 35 (L) >60 mL/min [facility] [place] Comment: The eGFR is not validated for use in drug dosing adjustments.Continue to use estimated creatinine clearance per dosing reference text.Please contact the Clinical Pharmacist for questions. Specimen Blood Performing Organization Address City/[facility] [address]/Zipcode Phone Number MAIN LAB [address] [place] [address] * POC GLUCOSE (06/27/2018 11:41 AM CDT) Glucose, POC 160 (H) 70 - 100 MG/DL [facility] Performing Organization Address [facility] [address]/[facility] Phone Number MAIN LAB [address] [place] [address] * POC GLUCOSE (06/27/2018 6:09 AM CDT) Glucose, POC 140 (H) 70 - 100 MG/DL [facility] Performing Organization Address [facility] [address]/[facility] Phone Number MAIN LAB [address] [place] [address] * PHOSPHORUS (06/27/2018 4:07 AM CDT) Phosphorus 4.8 (H)Comment: NOTE NEW 2.0 - 4.5 MG/DL [facility] REFERENCE RANGES Specimen Blood Performing Organization Address [facility] [address]/[facility] Phone Number MAIN LAB [address] [place] [address] * MAGNESIUM (06/27/2018 4:07 AM CDT) Magnesium 2.0 1.6 - 2.6 mg/dL [facility] Specimen Blood Performing Organization Address [facility] [address]/[facility] Phone Number MAIN LAB [address] [place] [address] * COMPREHENSIVE METABOLIC PANEL (06/27/2018 4:07 AM CDT) Sodium 140 137 - 147 MMOL/L [facility] Potassium 4.8 3.5 - 5.1 MMOL/L [facility] Chloride 110 98 - 110 MMOL/L [facility] Glucose 121 (H) 70 - 100 MG/DL [facility] Blood Urea 53 (H) 7 - 25 MG/DL [facility] Nitrogen Creatinine 1.92 (H) 0.4 - 1.00 MG/DL [facility] Calcium 8.5 8.5 - 10.6 MG/DL [facility] Total Protein 5.5 (L) 6.0 - 8.0 G/DL [facility] Total Bilirubin 1.4 (H) 0.3 - 1.2 MG/DL [facility] Albumin 2.9 (L) 3.5 - 5.0 G/DL [facility] Alk Phosphatase 72 25 - 110 U/L [facility] AST (SGOT) 25 7 - 40 U/L [facility] CO2 24 21 - 30 MMOL/L [facility] ALT (SGPT) 13 7 - 56 U/L [facility] Anion Gap 6 3 - 12 MAIN LAB eGFR Non 27 (L) >60 mL/min MAIN LAB Comment: [place] The eGFR is not validated for use in drug dosing adjustments.Continue to use estimated creatinine clearance per dosing reference text.Please contact the Clinical Pharmacist for questions. eGFR 33 (L) >60 mL/min [facility] [place] Comment: The eGFR is not validated for use in drug dosing adjustments.Continue to use estimated creatinine clearance per dosing reference text.Please contact the Clinical Pharmacist for questions. Specimen Blood Performing Organization Address City/[facility] [address]/Zipcode Phone Number [facility] [address] [place] [address] * PTT (APTT) (06/27/2018 4:07 AM CDT) APTT 33.6 24.0 - 36.5 SEC [facility] Specimen Blood Performing Organization Address City/[facility] [address]/Zipcode Phone Number [facility] [address] [place] [address] * PROTIME INR (PT) (06/27/2018 4:07 AM CDT) INR 1.5 (H) 0.8 - 1.2 [facility] Specimen Blood Performing Organization Address City/[facility] [address]/Zipcode Phone Number [facility] [address] [place] [address] * CBC AND DIFF (06/27/2018 4:07 AM CDT) White Blood 24.1 (H) 4.5 - 11.0 K/UL [facility] Cells RBC 2.41 (L) 4.0 - 5.0 M/UL [facility] Hemoglobin 7.0 (L) 12.0 - 15.0 GM/DL [facility] Hematocrit 21.6 (L) 36 - 45 % [facility] MCV 89.6 80 - 100 FL [facility] MCH 28.9 26 - 34 PG [facility] MCHC 32.2 32.0 - 36.0 G/DL [facility] RDW 22.1 (H) 11 - 15 % [facility] Platelet Count 91 (L) 150 - 400 K/UL [facility] MPV 16.1 (H) 7 - 11 FL [facility] Neutrophils 58 41 - 77 % [facility] Lymphocytes 18 (L) 24 - 44 % [facility] Monocytes 17 (H) 4 - 12 % [facility] Eosinophils 6 (H) 0 - 5 % MAIN LAB Basophils 1 0 - 2 % MAIN LAB Absolute 14.20 (H) 1.8 - 7.0 K/UL [facility] Neutrophil Count Absolute Lymph 4.40 1.0 - 4.8 K/UL [facility] Count Absolute 4.00 (H) 0 - 0.80 K/UL [facility] Monocyte Count Absolute 1.40 (H) 0 - 0.45 K/UL [facility] Eosinophil Count Absolute 0.20 0 - 0.20 K/UL [facility] Basophil Count Specimen Blood Performing Organization Address City/[facility] [address]/[facility] Phone Number MAIN LAB [address] [phone] * POC GLUCOSE (06/26/2018 9:20 PM CDT) Glucose, POC 177 (H) 70 - 100 MG/DL [facility] Performing Organization Address City/[facility] [address]/[facility] Phone Number MAIN LAB [address] [place] [address] * POC GLUCOSE (06/26/2018 5:19 PM CDT) Glucose, POC 141 (H) 70 - 100 MG/DL [facility] Performing Organization Address [facility] [address]/[facility] Phone Number MAIN LAB [address] [place] [address] * BASIC METABOLIC PANEL (06/26/2018 2:30 PM CDT) Sodium 140 137 - 147 MMOL/L [facility] Potassium 4.6 3.5 - 5.1 MMOL/L MAIN LAB Chloride 109 98 - 110 MMOL/L [facility] CO2 23 21 - 30 MMOL/L MAIN LAB Anion Gap 8 3 - 12 MAIN LAB Glucose 198 (H) 70 - 100 MG/DL [facility] Blood Urea 51 (H) 7 - 25 MG/DL [facility] Nitrogen Creatinine 1.85 (H) 0.4 - 1.00 MG/DL [facility] Calcium 8.9 8.5 - 10.6 MG/DL [facility] eGFR Non 28 (L) >60 mL/min [facility] Comment: [place] The eGFR is not validated for use in drug dosing adjustments.Continue to use estimated creatinine clearance per dosing reference text.Please contact the Clinical Pharmacist for questions. eGFR 34 (L) >60 mL/min [facility] [place] Comment: The eGFR is not validated for use in drug dosing adjustments.Continue to use estimated creatinine clearance per dosing reference text.Please contact the Clinical Pharmacist for questions. Specimen Blood Performing Organization Address [facility] [address]/[facility] Phone Number [facility] [address] [phone] * POC GLUCOSE (06/26/2018 12:29 PM CDT) Glucose, POC 169 (H) 70 - 100 MG/DL [facility] Performing Organization Address [facility] [address]/[facility] Phone Number [facility] [address] [phone] * CORTISOL 60 MINUTES POST (06/26/2018 10:10 AM CDT) Cortisol 60 Min 9.9 ug/dL [facility] Specimen Blood Performing Organization Address [facility] [address]/[facility] Phone Number [facility] [address] [place] [address] * CORTISOL 30 MINUTES POST (06/26/2018 9:34 AM CDT) Cortisol 30 Min 7.2 ug/dL [facility] Specimen Blood Performing Organization Address [facility] [address]/[facility] Phone Number [facility] [address] [phone] * 2-D + DOPPLER ECHOCARDIOGRAM (06/26/2018 8:32 [...] 34 OTHER OUTSIDE Index LAB Cardiology Siemens [id number] OTHER OUTSIDE Ultrasound LAB Machine Left Ventricle 64.06 44 - 88 g/m2 OTHER OUTSIDE Mass Index LAB CV ECHO PV Floor RN OTHER OUTSIDE INSTALLER INSPECTOR FINAL LAB MV mean 7 mmHg OTHER OUTSIDE [...] hyperdynamic LV systolic function. Performing Organization Address City/[facility] [address]/[facility] Phone Number OTHER OUTSIDE LAB * CORTISOL BASELINE (06/26/2018 8:23 AM CDT) Pathologist [facility] Cortisol 1.1 ug/dL MAIN LAB Baseline Specimen Blood Performing Organization Address [facility] [address]/[facility] Phone Number MAIN LAB [address] [place] [address] * ACTH (06/26/2018 8:23 AM CDT) Pathologist [facility] Adrenocorticotr <5.0 REFERENCE LAB [facility] Hormone Unit: pg/mL REFERENCE VALUE - 7.2-63 (a.m. collection) [facility], [address] [place] [phone] (L) Specimen Blood Performing Organization Address [facility] [address]/[facility] Phone Number REFERENCE LAB REFERENCE LAB See results for address. * POC GLUCOSE (06/26/2018 6:12 AM CDT) Pathologist [facility] Glucose, POC 166 (H) 70 - 100 MG/DL MAIN LAB Performing Organization Address [facility] Phone Number MAIN LAB [address] [place] [address] * PERIPHERAL SMEAR (06/26/2018 3:41 AM CDT) Pathologist [facility] Peripheral NORMOCYTIC ANEMIA WITH MAIN LAB Smear ANISOPOIKILOCYTOSIS. OVALOCYTES, BOY CELLS, SCHISTOCYTES AND TARGET CELLS GRANULOCYTOSIS WITHOUT LEFT SHIFT. MILD MONOCYTOSIS MODERATE THROMBOCYTOPENIA WITH NORMAL PLATELET MORPHOLOGY. Pathologist INTERPRETED BY MARCELLA CAMPO M.D. [facility] Signature By the PATH SIGNATURE ABOVE, I attest that I have personally formulated the final interpretation expressed in this report and that the above diagnosis is based upon my examination of the slides and/or other material indicated in this report. Performing Organization Address City/[facility] [address]/Zipcode Phone Number MAIN LAB [address] [place] [address] * PHOSPHORUS (06/26/2018 3:41 AM CDT) Phosphorus 4.4Comment: NOTE NEW REFERENCE 2.0 - 4.5 MG/DL [facility]IN [facility] RANGES Specimen Blood Performing Organization Address [facility] [address]/[facility] Phone Number MAIN LAB [address] [place] [address] * MAGNESIUM (06/26/2018 3:41 AM CDT) Magnesium 2.2 1.6 - 2.6 mg/dL [facility] Specimen Blood Performing Organization Address [facility] [address]/[facility] Phone Number MAIN LAB [address] [place] [address] * COMPREHENSIVE METABOLIC PANEL (06/26/2018 3:41 AM CDT) Sodium 139 137 - 147 MMOL/L [facility] Potassium 4.6 3.5 - 5.1 MMOL/L [facility] Chloride 110 98 - 110 MMOL/L [facility] Glucose 168 (H) 70 - 100 MG/DL [facility] Blood Urea 52 (H) 7 - 25 MG/DL [facility] Nitrogen Creatinine 1.95 (H) 0.4 - 1.00 MG/DL [facility] Calcium 8.5 8.5 - 10.6 MG/DL [facility] Total Protein 5.7 (L) 6.0 - 8.0 G/DL [facility] Total Bilirubin 1.5 (H) 0.3 - 1.2 MG/DL [facility] Albumin 3.1 (L) 3.5 - 5.0 G/DL [facility] Alk Phosphatase 82 25 - 110 U/L [facility] AST (SGOT) 25 7 - 40 U/L [facility] CO2 23 21 - 30 MMOL/L [facility] ALT (SGPT) 15 7 - 56 U/L [facility] Anion Gap 6 3 - 12 [facility] eGFR Non 27 (L) >60 mL/min [facility] Comment: [place] The eGFR is not validated for use in drug dosing adjustments.Continue to use estimated creatinine clearance per dosing reference text.Please contact the Clinical Pharmacist for questions. eGFR 32 (L) >60 mL/min [facility] [place] Comment: The eGFR is not validated for use in drug dosing adjustments.Continue to use estimated creatinine clearance per dosing reference text.Please contact the Clinical Pharmacist for questions. Specimen Blood Performing Organization Address City/[facility] [address]/Zipcode Phone Number MAIN LAB [address] [place] [address] * PTT (APTT) (06/26/2018 3:41 AM CDT) APTT 29.1 24.0 - 36.5 SEC MAIN LAB Specimen Blood Performing Organization Address [facility] [address]/Zipcode Phone Number [facility] [address] [place] [address] * PROTIME INR (PT) (06/26/2018 3:41 AM CDT) INR 1.5 (H) 0.8 - 1.2 [facility] Specimen Blood Performing Organization Address [facility] [address]/Zipcode Phone Number [facility] [address] [place] [address] * CBC AND DIFF (06/26/2018 3:41 AM CDT) White Blood 27.0 (H) 4.5 - 11.0 K/UL [facility] Cells RBC 2.62 (L) 4.0 - 5.0 M/UL [facility] Hemoglobin 7.5 (L) 12.0 - 15.0 GM/DL [facility] MAIN [facility] Hematocrit 23.6 (L) 36 - 45 % [facility] MAIN [facility] MCV 90.0 80 - 100 FL MAIN LAB MCH 28.7 26 - 34 PG MAIN LAB MCHC 31.9 (L) 32.0 - 36.0 G/DL [facility] RDW 22.1 (H) 11 - 15 % [facility] MAIN [facility] Platelet Count 95 (L) 150 - 400 K/UL [facility] MPV 13.1 (H) 7 - 11 FL [facility]IN [facility] Neutrophils 60 41 - 77 % [facility] Lymphocytes 17 (L) 24 - 44 % [facility] Monocytes 17 (H) 4 - 12 % [facility] Eosinophils 5 0 - 5 % [facility] Basophils 1 0 - 2 % [facility] Absolute 16.50 (H) 1.8 - 7.0 K/UL [facility] Neutrophil Count Absolute Lymph 4.50 1.0 - 4.8 K/UL [facility] Count Absolute 4.50 (H) 0 - 0.80 K/UL MAIN LAB Monocyte Count Absolute 1.40 (H) 0 - 0.45 K/UL MAIN LAB Eosinophil Count Absolute 0.20 0 - 0.20 K/UL MAIN LAB Basophil Count Specimen Blood Performing Organization Address City/[facility] [address]/[facility] Phone Number [facility] [address] [place] [address] * POC GLUCOSE (06/25/2018 9:24 PM CDT) Glucose, POC 187 (H) 70 - 100 MG/DL [facility] Performing Organization Address [facility] [address]/[facility] Phone Number MAIN LAB [address] [place] [address] * POC GLUCOSE (06/25/2018 4:52 PM CDT) Glucose, POC 143 (H) 70 - 100 MG/DL [facility] Performing Organization Address [facility] [address]/[facility] Phone Number [facility] [address] [place] [address] * LACTIC ACID (BG - RAPID LACTATE) (06/25/2018 11:22 AM CDT) Lactic Acid,BG 1.4 0.5 - 2.0 MMOL/L MAIN LAB Specimen Blood Performing Organization Address [facility] [address]/[facility] Phone Number MAIN LAB [address] [place] [address] * ETHYLENE GLYCOL (06/25/2018 11:22 AM CDT) Ethylene Glycol <5 MG/DL REFERENCE LAB Comment: TEST PERFORMED AT [facility] Report Available in Epic Specimen Blood - Blood Narrative Performed At Performing Organization Address City/State/[facility] Phone Number REFERENCE LAB REFERENCE LAB See results for address. * POC GLUCOSE (06/25/2018 11:20 AM CDT) Glucose, POC 172 (H) 70 - 100 MG/DL [facility] Performing Organization Address City/[facility] [address]/[facility] Phone Number MAIN LAB [address] [place] [address] * POC GLUCOSE (06/25/2018 6:15 AM CDT) Glucose, POC 156 (H) 70 - 100 MG/DL [facility] Performing Organization Address [facility] [address]/[facility] Phone Number [facility] [address] [place] [address] * BETA HYDROXYBUTYRATE (KETONES) (06/25/2018 3:57 AM CDT) Beta 0.1 <0.3 MMOL/L [facility] Hydroxybutyrate Comment: Beta hydroxybutyrate (BOHB) is the most abundant ketone (78%), followed by acetoacetate (20%) and acetone (2%).Measurement BOHB is recommended to assess ketones in DKA. Expected BOHB Results for DKA: Initial presentation high/increasing During treatment decreasing Resolved decreasing/normal Performing Organization Address City/[facility] [address] Phone Number MA[facility] LAB [address] [place] [address] * PHOSPHORUS (06/25/2018 3:57 AM CDT) Phosphorus 4.0Comment: NOTE NEW REFERENCE 2.0 - 4.5 MG/DL [facility] RANGES Specimen Blood Performing Organization Address [facility] [address]/[facility] Phone Number [facility] [address] [place] [address] * MAGNESIUM (06/25/2018 3:57 AM CDT) Magnesium 2.4 1.6 - 2.6 mg/dL [facility] Specimen Blood Performing Organization Address [facility] [address]/[facility] Phone Number [facility] [address] [place] [address] * COMPREHENSIVE METABOLIC PANEL (06/25/2018 3:57 AM CDT) Sodium 137 137 - 147 MMOL/L [facility] Potassium 4.8 3.5 - 5.1 MMOL/L [facility] Chloride 110 98 - 110 MMOL/L [facility] Glucose 170 (H) 70 - 100 MG/DL [facility] Blood Urea 52 (H) 7 - 25 MG/DL [facility] Nitrogen Creatinine 1.72 (H) 0.4 - 1.00 MG/DL [facility] Calcium 8.5 8.5 - 10.6 MG/DL [facility] Total Protein 6.1 6.0 - 8.0 G/DL [facility] Total Bilirubin 1.7 (H) 0.3 - 1.2 MG/DL [facility] Albumin 3.4 (L) 3.5 - 5.0 G/DL [facility] Alk Phosphatase 82 25 - 110 U/L [facility] AST (SGOT) 28 7 - 40 U/L [facility] CO2 21 21 - 30 MMOL/L [facility] ALT (SGPT) 16 7 - 56 U/L [facility] Anion Gap 6 3 - 12 [facility] eGFR Non 31 (L) >60 mL/min [facility] Comment: [place] The eGFR is not validated for use in drug dosing adjustments.Continue to use estimated creatinine clearance per dosing reference text.Please contact the Clinical Pharmacist for questions. eGFR 37 (L) >60 mL/min [facility] [place] Comment: The eGFR is not validated for use in drug dosing adjustments.Continue to use estimated creatinine clearance per dosing reference text.Please contact the Clinical Pharmacist for questions. Specimen Blood Performing Organization Address City/[facility] [address]/Zipcode Phone Number [facility] [address] [place] [address] * PTT (APTT) (06/25/2018 3:57 AM CDT) APTT 26.5 24.0 - 36.5 [facility] Specimen Blood Performing Organization Address [facility] [address]/[facility] Phone Number [facility] [address] [place] [address] * PROTIME INR (PT) (06/25/2018 3:57 AM CDT) INR 1.4 (H) 0.8 - 1.2 [facility] Specimen Blood Performing Organization Address [facility] [address]/Zipcode Phone Number [facility] [address] [place] [address] * CBC AND DIFF (06/25/2018 3:57 AM CDT) White Blood 25.4 (H) 4.5 - 11.0 K/UL [facility] Cells RBC 2.72 (L) 4.0 - 5.0 M/UL [facility] Hemoglobin 7.6 (L) 12.0 - 15.0 GM/DL [facility] Hematocrit 24.8 (L) 36 - 45 % [facility] MCV 91.1 80 - 100 FL [facility] MCH 27.7 26 - 34 PG [facility] MCHC 30.4 (L) 32.0 - 36.0 G/DL [facility] RDW 22.1 (H) 11 - 15 % [facility] Platelet Count 119 (L) 150 - 400 K/UL [facility] MPV 14.0 (H) 7 - 11 FL [facility] Nucleated RBCs 4 K/UL [facility] Segmented 63 41 - 77 % [facility] Neutrophils Bands 3 0 - 10 % [facility] Lymphocytes 17 (L) 24 - 44 % [facility] Monocytes 9 4 - 12 % [facility] Eosinophil 7 (H) 0 - 5 % [facility] Basophil 1 0 - 2 % [facility] ANISO PRESENT [facility] POLY PRESENT [facility] Ovalocyte PRESENT [facility] Schistocyte PRESENT MAIN LAB Target PRESENT MAIN LAB [place] PRESENT [facility] Bodies Platelet SLT DEC [facility] Estimate Absolute 16.76 (H) 1.8 - 7.0 K/UL [facility] Neutrophil Count Manual Specimen Blood Performing Organization Address City/[facility] [address]/Zipcode Phone Number MAIN LAB [address] [place] [address] * POC GLUCOSE (06/25/2018 12:06 AM CDT) Glucose, POC 219 (H) 70 - 100 MG/DL MAIN LAB Performing Organization Address [facility] [address]/[facility] Phone Number [facility] [address] [place] [address] * CHEST SINGLE VIEW (06/24/2018 11:36 PM CDT) Impressions Performed At 1.Findings consistent with CHF/volume [...] on 06/25/2018 10:01 AM. Performing Organization Address [facility] [address]/[facility] Phone Number RAD RESULTS * BNP (B-TYPE NATRIURETIC PEPTI) (06/24/2018 11:14 PM CDT) B Type 967.0 (H) 0 - 100 PG/ML MAIN LAB Natriuretic Peptide Specimen Blood Performing Organization Address [facility] [address]/[facility] Phone Number MAIN LAB [address] [place] [address] * STREPTOCOCCUS PNEUMO AG, URINE (06/24/2018 10:03 PM CDT) Battery Name STREP PNEUMO AG, UR [facility] Specimen URINE [facility] Description Special NONE [facility] Requests Antigen NEGATIVE [facility] Report Status FINAL MAIN LAB 06/24/2018 Specimen Urine Performing Organization Address [facility] [address] [facility] Phone Number MAIN LAB [address] [place] [address] * LEGIONELLA ANTIGEN URINE,RAN (06/24/2018 10:03 PM CDT) Battery Name LEGIONELLA URINE ANTIGEN [facility] Specimen URINE MAIN LAB Description Special NONE [facility] Requests Antigen NEGATIVE [facility] Report Status FINAL MAIN LAB 06/24/2018 Specimen Urine - Urine Performing Organization Address [facility] [address]/[facility] Phone Number MAIN LAB [address] [place] [address] * BLOOD GASES, ARTERIAL (06/24/2018 10:03 PM CDT) pH-Arterial 7.34 (L) 7.35 - 7.45 [facility] pCO2-Arterial 38 35 - 45 MMHG [facility] pO2-Arterial 76 (L) 80 - 100 MMHG [facility] Base 5.1 MMOL/L [facility] Deficit-Arteria l O2 Sat-Arterial 95.9 95 - 99 % MAIN LAB Bicarbonate-ART 20.2 (L) 21 - 28 MMOL/L [facility] -[place] Specimen Blood, arterial - Blood Performing Organization Address [facility] [address] [facility] Phone Number [facility] [address] [place] [address] * SODIUM-URINE RANDOM (06/24/2018 10:03 PM CDT) Sodium, Random 14 MMOL/L MAIN LAB Specimen Urine - Urine Performing Organization Address [facility] [address] [facility] Phone Number MAIN LAB [address] [place] [address] * UREA NITROGEN-URINE RANDOM (06/24/2018 10:03 PM CDT) Urea Nitrogen 558 MG/DL [facility] Specimen Urine - Urine Performing Organization Address [facility] [address]/[facility] Phone Number MAIN LAB [address] [place] [address] * CREATININE-URINE RANDOM (06/24/2018 10:03 PM CDT) Creatinine, 108 MG/DL [facility] Random Specimen Urine - Urine Performing Organization Address [facility] [address] [facility] Phone Number MAIN LAB [address] [place] [id number] * URINALYSIS, MICROSCOPIC (06/24/2018 10:03 PM CDT) WBCs,UA 2-10 0 - 2 /HPF [facility] RBCs,UA 10-20 0 - 3 /HPF [facility] Bacteria,UA FEW (A) NEG-NEG [facility] Budding Yeast MODERATE MAIN LAB Specimen Urine - Urine Performing Organization Address City/[facility] [address]/[facility] Phone Number MAIN LAB [address] [place] [address] * URINALYSIS DIPSTICK (06/24/2018 10:03 PM CDT) Color,UA YELLOW [facility] Turbidity,UA 1+ (A) CLEAR-CLEAR [facility] Specific 1.013 1.003 - 1.035 [facility] [place]-Urine pH,UA 5.0 5.0 - 8.0 [facility] Protein,UA NEG NEG-NEG MAIN LAB Glucose,UA NEG NEG-NEG [facility] Ketones,UA NEG NEG-NEG MAIN LAB Bilirubin,UA NEG NEG-NEG MAIN LAB Blood,UA 2+ (A) NEG-NEG MAIN LAB Urobilinogen,UA NORMAL NORM-NORMAL MAIN LAB Nitrite,UA NEG NEG-NEG MAIN LAB Leukocytes,UA 2+ (A) NEG-NEG MAIN LAB Urine Ascorbic NEG NEG-NEG MAIN LAB Acid, UA Specimen Urine - Urine Performing Organization Address [facility] [address] [facility] Phone Number MAIN LAB [address] [place] [address] * CULTURE-BLOOD W/SENSITIVITY (06/24/2018 10:03 PM CDT) Battery Name BLOOD CULTURE MAIN LAB Specimen BLOOD MAIN LAB Description LEFT PICC LINE Special NONE MAIN LAB Requests Culture NO GROWTH 5 DAYS [facility] Report Status FINAL MAIN LAB 07/01/2018 Specimen Blood Performing Organization Address City/[facility] [address]/[facility] Phone Number [facility] [address] [place] [address] * CULTURE-BLOOD W/SENSITIVITY (06/24/2018 10:03 PM CDT) Battery Name BLOOD CULTURE MAIN LAB Specimen BLOOD MAIN LAB Description LEFT RADIAL Special NONE MAIN LAB Requests Culture NO GROWTH 5 DAYS MAIN LAB Report Status FINAL MAIN LAB 07/01/2018 Specimen Blood Performing Organization Address City/[facility] [address]/Zipcode Phone Number [facility] [address] [place] [address] * RVP VIRAL PANEL PCR (06/24/2018 9:56 PM CDT) Specimen Source NASOPHARYNGEAL SWAB MAIN LAB This assay uses analyte specific reagents and has not been cleared by the US Food and Drug Administration.The performance characteristics were determined by the [facility]. Adenovirus NOT DETECTED [facility] Coronavirus NOT DETECTED [facility] MAIN [facility] 229E Coronavirus NOT DETECTED [facility] HKU1 Coronavirus NOT DETECTED [facility] NL63 Coronavirus NOT DETECTED [facility] OC43 Human NOT DETECTED [facility] Metapneumovirus Human NOT DETECTED [facility] Rhinovirus/ENTE ROVIRUS Influenza A NOT DETECTED [facility] H1N1 2009 Influenza A H1 NOT DETECTED [facility] Influenza A H3 NOT DETECTED [facility] Influenza B NOT DETECTED [facility] Parainfluenza 1 NOT DETECTED MAIN LAB Parainfluenza 2 NOT DETECTED MAIN LAB Parainfluenza 3 NOT DETECTED MAIN LAB Parainfluenza 4 NOT DETECTED MAIN LAB RSV NOT DETECTED MAIN LAB Bordetella NOT DETECTED MAIN LAB Pertussis Chlamydophila NOT DETECTED MAIN LAB Pneumoniae Mycoplasma NOT DETECTED MAIN LAB Pneumoniae Specimen Nasopharyngeal Swab Performing Organization Address [facility] Phone Number MAIN LAB [address] [place] [address] * POC GLUCOSE (06/24/2018 9:55 PM CDT) Glucose, POC 218 (H) 70 - 100 MG/DL [facility] Performing Organization Address [facility] [address]/[facility] Phone Number MAIN LAB [address] [place] [address] * PROCALCITONIN (06/24/2018 9:51 PM CDT) Procalcitonin 0.17 (H) <0.10 NG/ML [facility] Performing Organization Address [facility] [address]/[facility] Phone Number MAIN LAB [address] [place] [address] * TYPE & CROSSMATCH (06/24/2018 9:51 PM CDT) Units Ordered 0 MAIN LAB Crossmatch 06/27/2018 MAIN LAB Expires Record Check FOUND MAIN LAB ABO/RH(D) A POS [facility] Antibody Screen NEG [facility] Electronic YES MAIN LAB Crossmatch Specimen Blood Performing Organization Address [facility] [address]/Zipcode Phone Number MAIN LAB [address] [place] [address] * BLOOD GASES, CENTRAL VENOUS (06/24/2018 9:51 PM CDT) PH-Central 7.28 (L) 7.30 - 7.40 MAIN LAB Venous PCO2-Central 47 >40 MMHG [facility]IN [facility] Venous PO2-Central 39 (L) 40 - 50 MMHG [facility]IN [facility] Venous Base 4.9 MMOL/L MAIN LAB Deficit-Central Venous O2 Sat 63.0 (L) 65 - 75 % MAIN LAB (Calc)-Central Venous Bicarb-Central 19.9 MMOL/L MAIN LAB Venous Performing Organization Address [facility] [address]/[facility] Phone Number MAIN LAB [address] [place] [address] * CORTISOL,RANDOM (06/24/2018 9:51 PM CDT) Pathologist [facility] Cortisol, 2.4 (L) 5.0 - 20.0 MCG/DL MAIN LAB Random Specimen Blood Performing Organization Address [facility] [address]/[facility] Phone Number MAIN LAB [address] [place] [address] * PHOSPHORUS (06/24/2018 9:51 PM CDT) Pathologist [facility] Phosphorus 3.8Comment: NOTE NEW REFERENCE 2.0 - 4.5 MG/DL MAIN LAB RANGES Specimen Blood Performing Organization Address [facility] [address]/[facility] Phone Number MAIN LAB [address] [place] [address] * MAGNESIUM (06/24/2018 9:51 PM CDT) Pathologist [facility] Magnesium 2.4 1.6 - 2.6 mg/dL MAIN LAB Specimen Blood Performing Organization Address [facility] [address]/Zipcode Phone Number MAIN LAB [address] [place] [address] * LACTIC ACID (BG - RAPID LACTATE) (06/24/2018 9:51 PM CDT) Pathologist [facility] Lactic Acid,BG 1.9 0.5 - 2.0 MMOL/L MAIN LAB Specimen Blood Performing Organization Address [facility] [address]/[facility] Phone Number MAIN LAB [address] [place] [address] * CBC AND DIFF (06/24/2018 9:51 PM CDT) Pathologist [facility] White Blood 22.9 (H) 4.5 - 11.0 K/UL [facility] Cells RBC 2.81 (L) 4.0 - 5.0 M/UL [facility] Hemoglobin 8.0 (L) 12.0 - 15.0 GM/DL [facility] Hematocrit 25.0 (L) 36 - 45 % [facility] MCV 89.0 80 - 100 FL [facility] MCH 28.4 26 - 34 PG [facility] MCHC 31.9 (L) 32.0 - 36.0 G/DL [facility] RDW 22.7 (H) 11 - 15 % [facility] Platelet Count 128 (L) 150 - 400 K/UL [facility] MPV 11.7 (H) 7 - 11 FL [facility] Segmented 76 41 - 77 % [facility] Neutrophils Lymphocytes 12 (L) 24 - 44 % [facility] Monocytes 8 4 - 12 % [facility] Eosinophil 4 0 - 5 % [facility] ANISO PRESENT [facility] HYPO PRESENT [facility] MAIN LAB POIK PRESENT [facility] MAIN LAB Target PRESENT [facility] MAIN [facility] Platelet SLT DEC [facility]IN [facility] Estimate [place] Cells PRESENT [facility] Absolute 17.40 (H) 1.8 - 7.0 K/UL [facility] Neutrophil Count Manual Specimen Blood Performing Organization Address City/State/Zipcode Phone Number MAIN LAB [address] [place] [address] * COMPREHENSIVE METABOLIC PANEL (06/24/2018 9:51 PM CDT) Pathologist [facility] Sodium 136 (L) 137 - 147 MMOL/L [facility] Potassium 4.9 3.5 - 5.1 MMOL/L [facility] Chloride 109 98 - 110 MMOL/L [facility] Glucose 224 (H) 70 - 100 MG/DL [facility] Blood Urea 54 (H) 7 - 25 MG/DL [facility] Nitrogen Creatinine 1.72 (H) 0.4 - 1.00 MG/DL [facility] Calcium 8.5 8.5 - 10.6 MG/DL [facility] Total Protein 6.2 6.0 - 8.0 G/DL [facility] Total Bilirubin 1.5 (H) 0.3 - 1.2 MG/DL [facility] Albumin 3.4 (L) 3.5 - 5.0 G/DL [facility] Alk Phosphatase 86 25 - 110 U/L [facility] AST (SGOT) 25 7 - 40 U/L [facility] CO2 20 (L) 21 - 30 MMOL/L [facility] ALT (SGPT) 15 7 - 56 U/L [facility] Anion Gap 7 3 - 12 [facility] eGFR Non 31 (L) >60 mL/min [facility] Comment: [place] The eGFR is not validated for use in drug dosing adjustments.Continue to use estimated creatinine clearance per dosing reference text.Please contact the Clinical Pharmacist for questions. eGFR 37 (L) >60 mL/min [facility] [place] Comment: The eGFR is not validated for use in drug dosing adjustments.Continue to use estimated creatinine clearance per dosing reference text.Please contact the Clinical Pharmacist for questions. Specimen Blood Performing Organization Address City/State/Zipcode Phone Number MAIN LAB [address] [place] [address] * GENERAL RAD CHEST EXTERNAL IMAGING (06/24/2018 3:40 AM CDT) Narrative Performed At This order has been auto finalized and does not contain a result. * ECG-SCAN (06/24/2018 12:00 AM CDT) Narrative Performed At Ordered by an unspecified provider. * CT CHEST EXTERNAL IMAGING (06/22/2018 3:35 PM CDT) Narrative Performed At This order has been auto finalized and does not contain a result. * GENERAL RAD CHEST EXTERNAL IMAGING (06/22/2018 2:40 PM CDT) Narrative Performed At This order has been auto finalized and does not contain a result. * GENERAL RAD CHEST EXTERNAL IMAGING (06/20/2018 3:55 AM CDT) Narrative Performed At This order has been auto finalized and does not contain a result. * GENERAL RAD CHEST EXTERNAL IMAGING (06/19/2018 3:20 AM CDT) Narrative Performed At This order has been auto finalized and does not contain a result. * GENERAL RAD CHEST EXTERNAL IMAGING (06/18/2018 2:40 PM CDT) Narrative Performed At This order has been auto finalized and does not contain a result. * GENERAL RAD CHEST EXTERNAL IMAGING (06/18/2018 1:00 PM CDT) Narrative Performed At This order has been auto finalized and does not contain a result. * CT HEAD EXTERNAL IMAGING (06/18/2018 12:20 PM CDT) Narrative Performed At This order has been auto finalized and does not contain a result. 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 Severe malnutrition (HCC) Nutritional marasmus Acidosis documented in this encounter Admitting Diagnoses Diagnosis Metabolic acidosis Acidosis Acidosis documented in this encounter Administered Medications Action Date Dose Rate Site Medication Order MAR Action 06/28/2018 1:36 PM CDT 650 mg acetaminophen (TYLENOL) tablet 650 mg Given 650 mg, Oral, EVERY 6 HOURS PRN, Starting Tue06/25/18 at 1048, Until Tue07/07/18 at 1820, Pain non-opioid: may be used alone or in combination with opioid analgesia, TOTAL ACETAMINOPHEN DOSE NOT TO EXCEED 2GM DAILY, 650 mg Given 06/26/2018 12:29 PM CDT 650 mg Given 06/25/2018 8:05 PM CDT 06/27/2018 4:27 AM CDT 2 mg alteplase (CATHFLO ACTIVASE) injection 2 Given mg 2 mg, Injection, NEEDED (EMERGENCY ROOM TECH FROM RX), Starting Tue06/27/18 at 0515, Until Tue07/07/18 at 1820, Clotted vascular access, For PICC, 2 mg Given 06/27/2018 4:26 AM CDT 07/06/2018 8:32 PM CDT 25 mg amitriptyline (ELAVIL) tablet 25 mg Given 25 mg, Oral, AT BEDTIME DAILY, First dose on 06/26/18 at 2100, Until Discontinued 25 mg Given 07/05/2018 8:25 PM CDT 25 mg Given 07/04/2018 9:15 PM CDT 06/28/2018 9:44 AM CDT 250 mg chlorothiazide injection 250 mg Given 250 mg, Intravenous, ONCE, 1 dose, 06/28/18 at 0845 06/26/2018 8:59 AM CDT 0.25 mg cosyntropin (CORTROSYN) injection 0.25 Given mg 0.25 mg, Intravenous, ONCE, 1 dose, Tue06/26/18 at 0800, Push over 2 minutes (dilute with 5 mL Normal Saline) x1. Observe closely for 30 minutes following administration. Vital signs prior to dose and 15 minutes after dose., 06/26/2018 12:29 PM CDT 10 mg cyclobenzaprine (FLEXERIL) tablet 10 mg Given 10 mg, Oral, THREE TIMES DAILY PRN, Starting Tue06/25/18 at 1223, Until Tue06/26/18 at 1749, Muscle Cramps, Spasms 10 mg Given 06/26/2018 7:00 AM CDT 10 mg Given 06/25/2018 8:05 PM CDT 07/07/2018 8:03 AM CDT [address] (CYMBALTA) capsule 30 mg Given 30 mg, Oral, DAILY, First dose on Tue06/27/18 at 0900, Until Discontinued 30 mg Given 07/06/2018 8:32 AM CDT 30 mg Given 07/05/2018 8:00 AM CDT 07/07/2018 6:20 AM CDT 100 mg eltrombopag (PROMACTA) tab 100 mg Given [Patient's Own Medication] 100 mg, Oral, DAILY, First dose on Tue06/26/18 at 0600, Until Discontinued, Patient's own medication , 100 mg Given 07/06/2018 6:13 AM CDT 100 mg Given 07/05/2018 5:25 AM CDT 06/28/2018 9:20 PM CDT 40 mg Abdomen:RUQ enoxaparin (LOVENOX) syringe 40 mg Given 40 mg, Subcutaneous, DAILY, First dose on Tue06/25/18 at 0330, Until Discontinued, For patients undergoing surgery: Consult physician in advance -- enoxaparin is an anticoagulant and may need to be held for 12hr prior to surgery or invasive procedures. NOTE: This is a HIGH ALERT Medication., 40 mg Abdomen:RUQ Given 06/27/2018 8:05 PM CDT 40 mg Abdominal Tissue Given 06/26/2018 8:08 PM CDT 07/04/2018 12:25 PM CDT 10 mg/hr 1 mL/hr furosemide (LASIX) 500 mg in 50 mL IV Given - New drip syr (max conc) Bag Intravenous, 10 mg/hr (1 mL/hr), 50 mL, at 1 mL/hr, CONTINUOUS, Starting Tue06/27/18 at 0900, Until Tue07/05/18 at 1019, To be started after 80mg IV lasix bolus at 0900, 10 mg/hr 1 mL/hr Given - New Bag 07/02/2018 5:35 PM CDT 10 mg/hr 1 mL/hr Given - New Bag 07/01/2018 6:06 AM CDT 06/25/2018 3:30 AM CDT 40 mg furosemide (LASIX) injection 40 mg Given 40 mg, 4 mL, Intravenous, ONCE, 1 dose, [place] 06/25/18 at 0230, PROTECT FROM LIGHT, 06/26/2018 8:16 AM CDT 40 mg furosemide (LASIX) injection 40 mg Given 40 mg, 4 mL, Intravenous, TWICE DAILY, First dose on Tue06/25/18 at 1130, Until Discontinued, PROTECT FROM LIGHT, 40 mg Given 06/25/2018 4:53 PM CDT 40 mg Given 06/25/2018 11:15 AM CDT 06/26/2018 10:05 AM CDT 40 mg furosemide (LASIX) injection 40 mg Given 40 mg, 4 mL, Intravenous, ONCE, 1 dose, Tue06/26/18 at 1000, PROTECT FROM LIGHT, 07/06/2018 8:32 AM CDT 40 mg furosemide (LASIX) injection 40 mg Given 40 mg, 4 mL, Intravenous, THREE TIMES DAILY, First dose on Tue07/05/18 at 1130, Until Discontinued, PROTECT FROM LIGHT, 40 mg Given 07/05/2018 8:25 PM CDT 40 mg Given 07/05/2018 2:37 PM CDT 06/27/2018 8:15 AM CDT 80 mg furosemide (LASIX) injection 80 mg Given 80 mg, 8 mL, Intravenous, TWICE DAILY, First dose on Tue06/26/18 at 1700, Until Discontinued, PROTECT FROM LIGHT, 80 mg Given 06/26/2018 5:15 PM CDT 07/06/2018 8:33 PM CDT 40 mg furosemide (LASIX) tablet 40 mg Given 40 mg, Oral, THREE TIMES DAILY, 2 doses, First dose on Tue07/06/18 at 1500, Last dose on Tue07/06/18 at 2100 40 mg Given 07/06/2018 4:32 PM CDT 07/07/2018 8:03 AM CDT 40 mg furosemide (LASIX) tablet 40 mg Given 40 mg, Oral, TWICE DAILY, First dose on Tue07/07/18 at 0900, Until Discontinued 07/01/2018 10:12 AM CDT 300 mg gabapentin (NEURONTIN) capsule 300 mg Given 300 mg, Oral, DAILY PRN, Starting [place] 06/29/18 at 1439, Until 07/01/18 at 1504, Pain non-opioid: may be used alone or in combination with opioid analgesia, To be given at 0900 if having pain, 06/28/2018 10:34 AM CDT 1 Units Abdomen:LLQ insulin aspart U-100 (NOVOLOG FLEXPEN) Given injection PEN 0-6 Units 0-6 Units, Subcutaneous, BEFORE MEALS AND 2200, First dose on Tue06/24/18 at 2315, Until Discontinued, -POC glucose 181-220mg/dL at , , administer 1 unit insulin, at 22, 03* administer 0 units. -POC glucose 221-260mg/dL at , , administer 2 units insulin, at 22, 03* administer 1 unit. -POC glucose 261-300mg/dL at , , administer 3 units insulin, at 22, 03* administer 2 units. -POC glucose 301-350mg/dL at , , administer 4 units insulin, at 22, 03* administer 3 units. -POC glucose 351-400mg/dL at , , administer 5 units insulin, at 22, 03* administer 4 units. -POC glucose >400mg/dL at , , administer 6 units insulin, at 22, 03* administer 5 units. *only if ordered 5x's daily For POCT glucose >350mg/dL give correction bolus and recheck POCT glucose in 2 hours. If POCT glucose at 2 hours >300mg/dL call physician for further orders. For patients who are not eating meals, continue to administer the appropriate correction factor. NOTE: This is a HIGH ALERT Medication., Dispense pens manually with initial order and then upon request. DO NOT uncheck "Do not dispense", 07/07/2018 12:16 PM CDT 8 Units Abdominal Tissue insulin aspart U-100 (NOVOLOG FLEXPEN) Given injection PEN 8 Units 8 Units, Subcutaneous, THREE TIMES DAILY WITH MEALS, First dose on 06/25/18 at 0800, Until Discontinued, Hold if NPO for procedure, unable to eat, or if FSBS < 70 mg/dL Give at start of meal. NOTE: This is a HIGH ALERT Medication., Dispense pens manually with initial order and then upon request. DO NOT uncheck "Do not dispense", 8 Units Arm, Right Given 07/06/2018 5:43 PM CDT 8 Units Arm, Right Given 07/06/2018 12:20 PM CDT 07/06/2018 10:08 PM CDT 40 Units Arm, Right insulin glargine (LANTUS SOLOSTAR, Given BASAGLAR) injection PEN 40 Units 40 Units, Subcutaneous, AT BEDTIME DAILY, First dose on 06/25/18 at 2200, Until Discontinued, Continue if NPO. DO NOT mix with other insulins -- Do not mix with other insulins -- NOTE: This is a HIGH ALERT Medication., Dispense pens manually with initial order and then upon request. DO NOT uncheck "Do not dispense", 40 Units Abdomen:LLQ Given 07/05/2018 9:31 PM CDT 40 Units Abdominal Tissue Given 07/04/2018 9:16 PM CDT 07/02/2018 3:00 PM CDT 100 mL iohexol (OMNIPAQUE-350) 350 mg/mL Given injection 100 mL 100 mL, Intravenous, ONCE, 1 dose, 07/02/18 at 1500, NOTE: This is a HIGH ALERT Medication., 06/24/2018 10:42 PM CDT 20 g lactulose oral solution 20 g Given 20 g, Oral, FOUR TIMES DAILY, First dose on 06/24/18 at 2200, Until Discontinued 07/03/2018 10:50 AM CDT 20 g lactulose oral solution 20 g Given 20 g, Oral, THREE TIMES DAILY, First dose on 06/25/18 at 0900, Until Discontinued, Titrate to 3-4 BM per day., 20 g Given 07/03/2018 6:59 AM CDT 20 g Given 07/02/2018 1:24 PM CDT 07/07/2018 8:03 AM CDT 400 mg magnesium oxide (MAG-OX) tablet 400 mg Given 400 mg, Oral, TWICE DAILY, First dose on Tue07/05/18 at 1130, Until Discontinued, Delivers 241.3mg elemental magnesium per tab, 400 mg Given 07/06/2018 8:32 PM CDT 400 mg Given 07/06/2018 8:32 AM CDT 06/29/2018 8:43 AM CDT 1 g 100 mL/hr magnesium sulfate 1 g/D5W 100 mL IVPB Given - New 1 g, Intravenous, 100 mL, Administer Bag over 1 Hours, ONCE, 1 dose, Elida 06/29/18 at 0800, Each 1gm delivers 8.1 mEq Magnesium., 07/01/2018 10:05 AM CDT 1 g 100 mL/hr magnesium sulfate 1 g/D5W 100 mL IVPB Given - New 1 g, Intravenous, 100 mL, Administer Bag over 1 Hours, EVERY 1 HOUR FOR 2 DOSES, 2 doses, First dose on 07/01/18 at 0900, Last dose on Tue07/01/18 at 1000, Each 1gm delivers 8.1 mEq Magnesium., 1 g 100 mL/hr Given - New Bag 07/01/2018 8:36 AM CDT 06/27/2018 8:05 PM CDT 12.5 mg metoprolol tartrate (LOPRESSOR) tablet Given 12.5 mg 12.5 mg, Oral, TWICE DAILY, First dose on Tue06/27/18 at 2100, Until Discontinued, Hold for heart rate < 50 bpm, 07/07/2018 8:03 AM CDT 12.5 mg metoprolol tartrate (LOPRESSOR) tablet Given 12.5 mg 12.5 mg, Oral, TWICE DAILY, First dose on Elida 06/29/18 at 1400, Until Discontinued, Hold for heart rate < 60 bpm, 12.5 mg Given 07/06/2018 8:32 PM CDT 12.5 mg Given 07/06/2018 8:32 AM CDT 06/27/2018 8:15 AM CDT 25 mg metoprolol tartrate (LOPRESSOR) tablet Given 25 mg 25 mg, Oral, TWICE DAILY, First dose on Tue06/27/18 at 0900, Until Discontinued, Hold for heart rate < 50 bpm, 06/25/2018 12:27 PM CDT 2 mg morphine injection 2 mg Given 2 mg, Intravenous, EVERY 1 HOUR PRN, Starting 06/25/18 at 1222, Until 06/25/18 at 1354, Pain Injectable 07/07/2018 8:09 AM CDT nystatin (NYSTOP) topical powder Given Topical, TWICE DAILY, First dose on 06/25/18 at 0900, Until Discontinued, Apply to pannus folds, Given 07/06/2018 10:15 PM CDT Given 07/06/2018 8:33 AM CDT 06/29/2018 12:44 PM CDT 4 mg ondansetron (ZOFRAN) tablet 4 mg Given 4 mg, Oral, EVERY 8 HOURS PRN, Starting Elida 06/29/18 at 1210, Until Tue07/07/18 at 1820, Nausea/Vomiting PO 07/07/2018 5:33 AM CDT 10 mg oxyCODONE (ROXICODONE, OXY-IR) tablet Given 5-10 mg 5-10 mg, Oral, EVERY 6 HOURS PRN, Starting 06/25/18 at 2112, Until Tue07/07/18 at 1820, Pain PO 10 mg Given 07/06/2018 8:37 PM CDT 10 mg Given 07/03/2018 11:00 AM CDT 06/26/2018 8:16 AM CDT 10 Diluted mL perflutren lipid microspheres (DEFINITY) Given injection 1-20 Diluted mL 1-20 Diluted mL, Intravenous, ONCE PRN, 1 dose, Starting 06/26/18 at 0812, Until 06/26/18 at 0816, For Procedure, A behavioral therapy coordinator may only administer Definity through a saline lock. If IV is in use or a port, PICC, or central line is being used a nurse must administer. NOTE: This is a HIGH ALERT Medication., MAC Procedure Area Only - Medications 06/27/2018 6:03 AM CDT 3.375 g 200 mL/hr piperacillin/tazobactam (ZOSYN) 3.375 g Given in sodium chloride 0.9% (NS) 100 mL IVPB (MB+) 3.375 g, Intravenous, at 200 mL/hr, EVERY 6 HOURS, First dose on 06/25/18 at 0000, Until Discontinued 3.375 g 200 mL/hr Given 06/27/2018 12:08 AM CDT 3.375 g 200 mL/hr Given 06/26/2018 5:15 PM CDT 07/06/2018 8:20 AM CDT 17 g polyethylene glycol 3350 (MIRALAX) Given packet 17 g 17 g (1 packet), Oral, TWICE DAILY, First dose on 07/03/18 at 1145, Until Discontinued, Titrate to 3 bowel movements per day 8.5 GRAMS=0.5 PACKET 17 GRAMS=1 PACKET 34 GRAMS=2 PACKETS, 17 g Given 07/05/2018 8:25 PM CDT 17 g Given 07/05/2018 8:00 AM CDT 07/07/2018 6:18 AM CDT 17 g polyethylene glycol 3350 (MIRALAX) Given packet 17 g 17 g (1 packet), Oral, THREE TIMES DAILY BEFORE MEALS, First dose on Elida 07/06/18 at 1100, Until Discontinued, Titrate to 3 bowel movements per day 8.5 GRAMS=0.5 PACKET 17 GRAMS=1 PACKET 34 GRAMS=2 PACKETS, 17 g Given 07/06/2018 12:30 PM CDT 07/07/2018 8:03 AM CDT 75 mg pregabalin (LYRICA) capsule 75 mg Given 75 mg, Oral, TWICE DAILY, First dose on 07/01/18 at 2100, Until Discontinued 75 mg Given 07/06/2018 8:32 PM CDT 75 mg Given 07/06/2018 8:32 AM CDT 07/07/2018 8:03 AM CDT 550 mg rifAXIMin (XIFAXAN) tablet 550 mg Given 550 mg, Oral, TWICE DAILY, First dose on 06/24/18 at 2200, Until Discontinued 550 mg Given 07/06/2018 8:32 PM CDT 550 mg Given 07/06/2018 8:33 AM CDT 07/02/2018 3:00 PM CDT 50 mL sodium chloride PF 0.9% injection 50 mL Given 50 mL, Intravenous, ONCE, 1 dose, [place] 07/02/18 at 1500, DO NOT SEND this medication unless it is requested. This med is usually available in floor stock., Intra-procedure (IR) 07/07/2018 8:03 AM CDT 25 mg spironolactone (ALDACTONE) tablet 25 mg Given 25 mg, Oral, DAILY, First dose on 07/03/18 at 1000, Until Discontinued, NURSING: Please educate patient and document: Avoid using salt substitutes which have a high potassium content (Nu-Salt)., 25 mg Given 07/06/2018 8:32 AM CDT 25 mg Given 07/05/2018 8:00 AM CDT 07/04/2018 1:34 PM CDT 4 mg tiZANidine (ZANAFLEX) tablet 4 mg Given 4 mg, Oral, EVERY 8 HOURS PRN, Starting 06/26/18 at 1747, Until Tue07/07/18 at 1820, Spasms 4 mg Given 07/01/2018 5:03 PM CDT 4 mg Given 06/30/2018 4:11 PM CDT 06/25/2018 12:04 AM CDT 2,000 mg 270 mL/hr vancomycin (VANCOCIN) 2,000 mg in sodium Given - New chloride 0.9% (NS) IVPB Bag 2,000 mg, Intravenous, 540 mL, Administer over 120 Minutes, ONCE, 1 dose, 06/24/18 at 2315, Note Pharmacokinetic Monitoring: Please record infusion start time (Action=Given) and stop time (Action=Completed) of dose when blood levels are drawn., 06/26/2018 12:49 AM CDT 2,000 mg 270 mL/hr vancomycin (VANCOCIN) 2,000 mg in sodium Given - New chloride 0.9% (NS) IVPB Bag 2,000 mg, Intravenous, 540 mL, Administer over 120 Minutes, EVERY 24 HOURS, First dose on Tue06/26/18 at 0030, Until Discontinued, Note Pharmacokinetic Monitoring: Please record infusion start time (Action=Given) and stop time (Action=Completed) of dose when blood levels are drawn., 07/07/2018 8:03 AM CDT 1 tablet vitamins, multi w/minerals tablet 1 Given tablet 1 tablet, Oral, DAILY, First dose on Tue06/30/18 at 1715, Until Discontinued 1 tablet Given 07/06/2018 8:32 AM CDT 1 tablet Given 07/05/2018 8:00 AM CDT documented in this encounter
--- OUTSIDE RECORDS SUMMARY | 2018-07-07 19:48 | XMS REPORT | Encounter Summary ---
Author Author [facility] Organization [facility] Address Unknown Phone Unavailable Care Team Providers Care Manager Nicu Name Role Phone Santiago Torres MD PCP Encounter Details Care Team Description Date Type Department 06/24/2018 Hospital [facility]counter [facility] [address] [phone] Social History Date Tobacco Use Types Packs/Day Years Used Never Smoker Smokeless Tobacco: Never Used Alcohol Use Drinks/Week oz/Week Comments No Sex Assigned at Date Recorded Not on file Industry Job Start Date Occupation Not on file Not on file Not on file Travel End Travel History Travel Start No recent travel history available. documented as of this encounter Functional Status Date of Assessment Functional Status Response 06/15/2018 Does the patient have a hearing impairment: No 06/15/2018 Does the patient have a visual impairment: No 06/15/2018 Does the patient have impaired ambulation: Yes 06/15/2018 Does the patient have an activity of daily living Yes (ADL) impairment: 06/15/2018 Does the patient have an instrumental activity of No daily living (IADL) impairment: Date of Assessment Cognitive Status Response 06/15/2018 Does the patient have a cognitive impairment: No documented as of this encounter Medications at Time of Discharge [...] iron-400 tablet by mcg tab mouth daily. 06/15/2018 06/25/2018 benzonatate (TESSALON Take one 20 capsule 0 PERLES) 100 mg capsule capsule to two capsules by mouth every 8 hours as needed for Cough. 07/07/2018 bumetanide (BUMEX) 1 mg Take 1 mg by 0 tablet mouth daily. 06/25/2018 Carisoprodol 250 mg tab Take 1 tablet 0 by mouth three times daily. 07/07/2018 fluoxetine (PROZAC) 20 mg Take 20 mg by 0 capsule mouth daily. 07/07/2018 gabapentin (NEURONTIN) Take 1 0 300 mg capsule capsule by mouth in the morning, two capsules in the afternoon and two capsules in the evening as needed. 06/15/2018 06/25/2018 guaiFENesin (ROBITUSSIN) Take 10 mL by 0 100 mg/5 mL oral solution mouth every 4 hours as needed. 06/15/2018 06/25/2018 insulin aspart U-100 Inject zero 45 mL 3 (NOVOLOG FLEXPEN) 100 Units to six unit/mL injection PEN Units under the skin before meals and 2200. 11/17/2016 07/07/2018 lisinopril (PRINIVIL; Take 1 tablet 90 tablet 3 ZESTRIL) 10 mg tablet by mouth daily. 06/25/2018 loratadine 10 mg cap Take 1 0 capsule by mouth daily. 06/15/2018 06/25/2018 tiZANidine (ZANAFLEX) 2 Take one 15 tablet 0 mg tablet tablet by mouth every 8 hours as needed. documented as of this encounter Plan of Treatment Not on filedocumented as of this encounter Procedures Comments Procedure Name Priority Date/Time Associated Diagnosis GENERAL RAD CHEST Routine 06/24/2018 EXTERNAL IMAGING 3:40 AM CDT documented in this encounter Visit Diagnoses Not on filedocumented in this encounter
--- OUTSIDE RECORDS SUMMARY | 2018-07-07 19:48 | XMS REPORT | Encounter Summary ---
Author Author [facility] Organization [facility] Address Unknown Phone Unavailable Care Team Providers Care Educational Recruiter Name Role Phone Santiago Torres MD PCP Encounter Details Care Team Description Date Type Department 06/22/2018 Hospital [facility] Encounter [facility] [address] [phone] Social History Date Tobacco Use Types Packs/Day [...] 0 mg tablet mouth at bedtime daily. 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 Separate antacids by at least 4 hours. 06/15/2018 insulin glargine (LANTUS Inject forty 0 [...] 0 oral solution mouth four times daily. 06/15/2018 nystatin (NYSTOP) 100,000 Apply under 0 unit/g topical powder breast. 08/19/2016 rifAXIMin (XIFAXAN) 550 Take 1 Tab by 60 Tab 11 mg tablet mouth twice daily. Indications: HEPATIC ENCEPHALOPATH Y 06/15/2018 06/25/2018 benzonatate (TESSALON Take one 20 [...] 1 0 capsule by mouth daily. 06/15/2018 06/22/2018 oxyCODONE (ROXICODONE, Take one 30 tablet 0 OXY-IR) 5 mg tablet tablet by mouth every 4 hours as needed for up to 7 days 06/15/2018 06/25/2018 tiZANidine (ZANAFLEX) 2 Take one 15 tablet 0 mg tablet tablet by mouth every 8 hours as needed. documented as of this encounter Plan of Treatment Not on filedocumented as of this encounter Procedures Comments Procedure Name Priority Date/Time Associated Diagnosis GENERAL RAD CHEST Routine 06/22/2018 EXTERNAL IMAGING 2:40 PM CDT documented in this encounter Visit Diagnoses Not on filedocumented in this encounter
--- OUTSIDE RECORDS SUMMARY | 2018-07-07 19:48 | XMS REPORT | Encounter Summary ---
Author Author [facility] Organization [facility] Address Unknown Phone Unavailable Care Team Providers Care Flame Cutting Supervisor Name Role Phone Santiago Torres MD PCP Reason for Visit * Reason Comments Appointment Request Encounter Details Care Team Description Date Type Department Darlin Moran MD [address] [place] [address] [phone] Appointment Request 07/06/2018 Telephone [address] [phone] Social History Date Tobacco Use Types Packs/Day [...] Status Date of Assessment Functional Status Response 06/24/2018 Does the patient have a hearing impairment: [...] impairment: No documented as of this encounter Miscellaneous Notes * Telephone Encounter - Negar Dumont - 07/06/2018 2:50 PM CDT Patients appointment has been scheduled for 08/02/18 @ 11:20am. I left a message for Patient to return my call about an appointment that need to be scheduled. F/U APPT REQUEST: [facility] [[id number]] 1307 Status : Active Ordering user: Mey Cerrato APRN-NP 07/06/18 1307 Ordering provider: Mey Cerrato APRN-NP Authorized by: Mey Cerrato APRN-NP Frequency: Once 07/06/18 1315 - 1 occurrence Questionnaire Question Answer Diagnosis: ITP Reason for outpatient snow't request: fu Was patient seen in hospital by requested consult service? Yes Provider requesting to see: Dean Time frame requested for the outpatient snow't (provide range): 4 weeks Lab needed prior to appointment: patient will have twice weekly CBCs sent from Rehab to Dr Craig's office Expected discharge date: 07/07/2018 Name of physician & email to notify of the scheduled appt: [email or web address] Pager # of the requesting service (to notify of the scheduled snow't): [phone] documented in this encounter Plan of Treatment Not on filedocumented as of this encounter Visit Diagnoses Not on filedocumented in this encounter
--- OUTSIDE RECORDS SUMMARY | 2018-07-07 19:48 | XMS REPORT | Encounter Summary ---
Author Author [facility] Organization [facility] Address Unknown Phone Unavailable Care Team Providers Care Title Manager Name Role Phone Santiago Torres MD PCP Encounter Details Care Team Description Date Type Department 06/20/2018 Hospital [facility] Encounter [facility] [address] [phone] Social History Date Tobacco Use Types Packs/Day [...] Date/Time Associated Diagnosis GENERAL RAD CHEST Routine 06/20/2018 EXTERNAL IMAGING 3:55 AM CDT documented in this encounter Visit Diagnoses Not on filedocumented in this encounter
--- OUTSIDE RECORDS SUMMARY | 2018-07-07 19:48 | XMS REPORT | Encounter Summary ---
Author Author [facility] Organization [facility] Address Unknown Phone Unavailable Care Team Providers Care Quarry Boss Name Role Phone Santiago Torres MD PCP Encounter Details Care Team Description Date Type Department 06/22/2018 Hospital [facility] Encounter Health System [address] [phone] Social History Date Tobacco Use Types Packs/Day [...] Comments Procedure Name Priority Date/Time Associated Diagnosis CT CHEST EXTERNAL IMAGING Routine 06/22/2018 3:35 PM CDT documented in this encounter Visit Diagnoses Not on filedocumented in this encounter
--- OUTSIDE RECORDS SUMMARY | 2018-07-07 19:49 | XMS REPORT | Encounter Summary ---
Author Author [facility] Organization [facility] Address Unknown Phone Unavailable Care Team Providers Care Trial Paralegal Name Role Phone Santiago Torres MD PCP Encounter Details Care Team Description Date Type Department Melissa Maier MD [address] [facility] [address] [place] [address] [phone] 06/18/2018 Hospital Pre-Admit Encounter [address] [place] [address] Social History Date Tobacco Use Types Packs/Day [...] impairment: No documented as of this encounter Plan of Treatment Not on filedocumented as of this encounter Visit Diagnoses Not on filedocumented in this encounter
--- OUTSIDE RECORDS SUMMARY | 2018-07-07 19:49 | XMS REPORT | Encounter Summary ---
Author Author [facility] Organization [facility] Address Unknown Phone Unavailable Care Team Providers Care Order Picker Name Role Phone Santiago Torres MD PCP Encounter Details Care Team Description Date Type Department 06/19/2018 Hospital [facility] Encounter [facility] [address] [phone] Social History Date Tobacco Use Types Packs/Day [...] Date/Time Associated Diagnosis GENERAL RAD CHEST Routine 06/19/2018 EXTERNAL IMAGING 3:20 AM CDT documented in this encounter Visit Diagnoses Not on filedocumented in this encounter
--- OUTSIDE RECORDS SUMMARY | 2018-07-07 19:49 | XMS REPORT | Encounter Summary ---
Author Author [facility] Organization [facility] Address Unknown Phone Unavailable Care Team Providers Care Legal Recruiter Name Role Phone Santiago Torres MD PCP Encounter Details Care Team Description Date Type Department 06/18/2018 Hospital [facility] Encounter [facility] System [address] [phone] Social History Date Tobacco Use Types Packs/Day [...] Date/Time Associated Diagnosis GENERAL RAD CHEST Routine 06/18/2018 EXTERNAL IMAGING 2:40 PM CDT documented in this encounter Visit Diagnoses Not on filedocumented in this encounter
--- OUTSIDE RECORDS SUMMARY | 2018-07-07 19:49 | XMS REPORT | Encounter Summary ---
Author Author [facility] Organization [facility] Address Unknown Phone Unavailable Care Team Providers Care Disability Benefits Specialist Name Role Phone Santiago Torres MD PCP Encounter Details Care Team Description Date Type Department 06/18/2018 Hospital [facility] Encounter [facility] [address] [phone] Social History Date Tobacco Use Types Packs/Day [...] Procedure Name Priority Date/Time Associated Diagnosis CT HEAD EXTERNAL IMAGING Routine 06/18/2018 12:20 PM CDT documented in this encounter Visit Diagnoses Not on filedocumented in this encounter
--- OUTSIDE RECORDS SUMMARY | 2018-07-07 19:49 | XMS REPORT | Encounter Summary ---
Author Author [facility] Organization [facility] Address Unknown Phone Unavailable Care Team Providers Care Tool Procurement Coordinator Name Role Phone Santiago Torres MD PCP Encounter Details Care Team Description Date Type Department 06/18/[address] [facility] Encounter [facility] [address] [phone] Social History Date Tobacco Use Types Packs/Day [...] Routine 06/18/2018 EXTERNAL IMAGING 1:00 PM CDT documented in this encounter Visit Diagnoses Not on filedocumented in this encounter
--- OUTSIDE RECORDS SUMMARY | 2018-07-07 19:52 | XMS REPORT | Encounter Summary ---
Author Author [facility] Organization [facility] Address Unknown Phone Unavailable Care Team Providers Care Corporate Legal Intern Name Role Phone Santiago Torres MD PCP Encounter Details Care Team Description Date Type Department 06/07/2018 Hospital [facility] Encounter Health System [address] [phone] Social History Date Tobacco Use Types Packs/Day [...] Status Date of Assessment Functional Status Response 08/16/2017 Does the patient have a hearing impairment: No 08/16/2017 Does the patient have a visual impairment: Yes 08/16/2017 Does the patient have impaired ambulation: Yes 08/16/2017 Does the patient have an activity of daily living No (ADL) impairment: 08/16/2017 Does the patient have an instrumental activity of No daily living (IADL) impairment: Date of Assessment Cognitive Status Response 08/16/2017 Does the patient have a cognitive impairment: [...] 0 by mouth three times daily. 06/15/2018 cyclobenzaprine Take 10 mg by 0 (FLEXERIL) 10 mg tablet mouth three times daily as needed for Muscle Cramps. 10/24/2017 06/08/2018 ergocalciferol (VITAMIN Take 2 24 capsule 0 D-2) 50,000 unit capsules by capsuleIndications: mouth every 7 Vitamin D deficiency days. 07/07/2018 fluoxetine (PROZAC) 20 mg Take 20 mg by 0 capsule mouth daily. 07/07/2018 gabapentin (NEURONTIN) Take 1 0 300 mg capsule capsule by mouth in the morning, two capsules in the afternoon and two capsules in the evening as needed. 06/15/2018 06/25/2018 guaiFENesin (ROBITUSSIN) Take 10 mL by 0 100 mg/5 mL oral solution mouth every 4 hours as needed. 06/08/2018 insulin aspart (NOVOLOG Inject 18 0 FLEXPEN) 100 unit/mL Units under injection PENIndications: the skin Sliding Scale three times daily with meals. Indications: Sliding Scale 06/15/2018 06/25/2018 insulin aspart U-100 Inject zero 45 mL 3 (NOVOLOG FLEXPEN) 100 Units to six unit/mL injection PEN Units under the skin before meals and 2200. 11/17/2016 06/15/2018 insulin glargine (LANTUS Inject 50 3 Package 3 SOLOSTAR) 100 unit/mL (3 Units under mL) injection PEN the skin at bedtime daily. 06/15/2018 06/15/2018 insulin lispro(+) Inject eight 45 mL 0 (HUMALOG KWIKPEN INSULIN) Units under 100 unit/mL injection PEN the skin three times daily with meals. Prior to hospital patient was requiring 18 U TID w meals. Anticipate her mealtime will need to increase when she returns home. 06/15/2018 insulin lispro(+) Inject 18 0 (HUMALOG KWIKPEN INSULIN) units under 100 unit/mL injection PEN the skin three times daily before meals. On sliding scale. 11/17/2016 07/07/2018 lisinopril (PRINIVIL; Take 1 tablet 90 tablet 3 ZESTRIL) 10 mg tablet by mouth daily. 06/25/2018 loratadine 10 mg cap Take 1 0 capsule by mouth daily. 06/15/2018 06/22/2018 oxyCODONE (ROXICODONE, Take one 30 tablet 0 OXY-IR) 5 mg tablet tablet by mouth every 4 hours as needed for up to 7 days 06/08/2018 oxyCODONE (ROXICODONE, Take 1 Tab by 0 OXY-IR) 5 mg tablet mouth every 4 hours as needed for Pain 01/21/2017 06/08/2018 potassium chloride SR Take 1 tablet 7 tablet 0 (K-DUR) 20 mEq by mouth tabletIndications: daily. Take Hypokalemia with a meal and a full glass of water. 06/15/2018 prednisone (DELTASONE) 20 Take 40 mg by 0 mg tablet mouth daily with breakfast. 06/15/2018 06/25/2018 tiZANidine (ZANAFLEX) 2 Take one 15 tablet 0 mg tablet tablet by mouth every 8 hours as needed. documented as of this encounter Plan of Treatment Not on filedocumented as of this encounter Procedures Comments Procedure Name Priority Date/Time Associated Diagnosis CT ABD/PEL EXTERNAL Routine 06/07/2018 IMAGING 12:05 AM CDT documented in this encounter Visit Diagnoses Not on filedocumented in this encounter
--- OUTSIDE RECORDS SUMMARY | 2018-07-07 19:52 | XMS REPORT | Encounter Summary ---
Author Author [facility] Organization [facility] Address Unknown Phone Unavailable Care Team Providers Care Engineering Laboratory Technician Name Role Phone Santiago Torres MD PCP Reason for Visit * Auth/Cert Referred By Contact Referred To Contact Status Reason Specialty Diagnoses / Procedures Diagnoses Hepatic encephalopathy (HCC) Pneumonia pneumonia Encounter Details Care Team Description Date Type Department Leah Chin MD [address] [place] [address] [phone] Amira Phillip MBBS [address] [place] [address] [phone] Darlene Díaz MD [address] [facility] [address] [address] [phone] Kasey Glass MD [address] [facility] [place] [address] [place] [address] [phone] Hepatic encephalopathy (HCC) 06/07/2018 [facility] 06/15/[address] [place] [address] Social History Date Tobacco Use Types Packs/Day [...] Vital Signs Time Taken Vital Sign Reading 06/15/2018 8:42 AM CDT Blood Pressure 148/65 06/15/2018 8:42 AM CDT Pulse 68 06/15/2018 8:42 AM CDT Temperature 36.6 C (97.8 F) - Respiratory Rate - 06/15/2018 8:42 AM CDT Oxygen Saturation 95% - Inhaled Oxygen - Concentration 06/07/2018 9:03 PM CDT Weight 128.4 kg (283 lb 1.1 oz) 06/07/2018 9:03 PM CDT Height 172.7 cm (5' 8") 06/07/2018 9:03 PM CDT Body Mass Index 43.04 documented in this encounter Functional Status Date [...] as of this encounter Discharge Summaries * Kasey Glass MD - 06/15/2018 12:27 PM CDT Physician Discharge Summary Name: Niecy Richey Date Of : 1965 Age: 52 years Admit date: 06/07/2018 Discharge date: 06/15/2018 Attending Physician: Dr. Kasey Glass Service: [facility] [id number] Physician Summary completed by: Machelle Bailey MS Reason for hospitalization: community acquired pneumonia with acute hypoxic respiratory failure, end stage liver disease with hepatic encephalopathy Significant PMH: Past Medical History: Diagnosis Date Chronic respiratory failure with hypoxia, on home oxygen therapy (HCC) 2L NC w/ exertion DM (diabetes mellitus) (HCC) End stage liver disease (HCC) 06/10/2018 GERD (gastroesophageal reflux disease) History of hepatitis C 04/18/2017 tx w/ ribavirin and IFN HTN (hypertension) VALERIO (nonalcoholic steatohepatitis) 06/10/2018 Neuropathy S/P splenectomy 06/10/2018 Thrombocytopenia (HCC) Type 2 diabetes mellitus with complication (HCC) 08/21/2016 Allergies: Dilaudid [hydromorphone]; Metformin; and Reglan [metoclopramide] Admission Physical Exam notable for: General: Lethargic appearing , cooperative, no distress, appears stated age, jaundiced Head: Normocephalic, without obvious abnormality, atraumatic Eyes: Conjunctivae/corneas icteric in appearance . PERRL, EOMs intact. Neck: Supple, symmetrical, trachea midline, no adenopathy, thyroid: no enlargement/tenderness/nodules, no carotid bruit and no JVD Lungs: Clear to auscultation bilaterally Heart: Regular rate and rhythm, S1, S2 normal, no murmur, click rub or gallop Abdomen: Soft, distended, non tender Bowel sounds normal. No masses. No organomegaly, old surgical scars noted Extremities: Extremities normal, atraumatic, no cyanosis or edema, 2+ pitting edema bilateral LEs Peripheral pulses 2+ and symmetric, all extremities Lymph nodes: Cervical, supraclavicular and axillary nodes normal Neurologic: No sensory or motor deficits , asterixis noted on exam Admission Lab/Radiology studies notable for: CBC AND DIFF Collection Time: 06/08/18 1:00 AM Result Value Ref Range White Blood Cells 25.6 (H) 4.5 - 11.0 K/UL RBC 3.08 (L) 4.0 - 5.0 M/UL Hemoglobin 8.9 (L) 12.0 - 15.0 GM/DL Hematocrit 28.2 (L) 36 - 45 % MCV 91.5 80 - 100 FL MCH 28.9 26 - 34 PG MCHC 31.6 (L) 32.0 - 36.0 G/DL RDW 21.7 (H) 11 - 15 % Platelet Count 255 150 - 400 K/UL MPV 12.8 (H) 7 - 11 FL Nucleated RBCs 28 K/UL Segmented Neutrophils 71 41 - 77 % Bands 1 0 - 10 % Lymphocytes 11 (L) 24 - 44 % Monocytes 17 (H) 4 - 12 % ANISO PRESENT POIK PRESENT POLY PRESENT Ovalocyte PRESENT Target PRESENT Platelet Estimate NORMAL Absolute Neutrophil Count Manual 18.44 (H) 1.8 - 7.0 K/UL PROTIME INR (PT) Collection Time: 06/08/18 1:00 AM Result Value Ref Range INR 1.7 (H) 0.8 - 1.2 PTT (APTT) Collection Time: 06/08/18 1:00 AM Result Value Ref Range APTT 24.1 24.0 - 36.5 SEC COMPREHENSIVE METABOLIC PANEL Collection Time: 06/08/18 1:00 AM Result Value Ref Range Sodium 142 137 - 147 MMOL/L Potassium 4.0 3.5 - 5.1 MMOL/L Chloride 105 98 - 110 MMOL/L Glucose 124 (H) 70 - 100 MG/DL Blood Urea Nitrogen 17 7 - 25 MG/DL Creatinine 0.74 0.4 - 1.00 MG/DL Calcium 8.4 (L) 8.5 - 10.6 MG/DL Total Protein 5.9 (L) 6.0 - 8.0 G/DL Total Bilirubin 2.3 (H) 0.3 - 1.2 MG/DL Albumin 3.4 (L) 3.5 - 5.0 G/DL Alk Phosphatase 66 25 - 110 U/L AST (SGOT) 31 7 - 40 U/L CO2 31 (H) 21 - 30 MMOL/L ALT (SGPT) 15 7 - 56 U/L Anion Gap 6 3 - 12 eGFR Non >60 >60 mL/min eGFR >60 >60 mL/min LIPID PROFILE Collection Time: 06/08/18 1:00 AM Result Value Ref Range Cholesterol 126 <200 MG/DL Triglycerides 89 <150 MG/DL HDL 15 (L) >40 MG/DL LDL 70 <100 MG/DL VLDL 18 MG/DL Non HDL Cholesterol 111 MG/DL BNP (B-TYPE NATRIURETIC PEPTI) Collection Time: 06/08/18 1:00 AM Result Value Ref Range B Type Natriuretic Peptide 236.0 (H) 0 - 100 PG/ML TSH WITH FREE T4 REFLEX Collection Time: 06/08/18 1:00 AM Result Value Ref Range TSH 1.120 0.35 - 5.00 MCU/ML ALPHA FETO PROTEIN (AFP) Collection Time: 06/08/18 1:00 AM Result Value Ref Range Alpha Feto Protein 3.0 0.0 - 15.0 NG/ML INFLUENZA A/B AG (RAPID TEST) Collection Time: 06/08/18 1:00 AM Result Value Ref Range Battery Name INFLUENZA A/B ANTIGEN Specimen Description NASOPHARYNGEAL SWAB Special Requests NONE Direct Antigen NEGATIVE FOR INFLUENZA A/B Report Status FINAL 06/08/2018 CXR 06/08/2018: IMPRESSION Resolution of medial right lung apex consolidation. Persistent mild cardiomegaly with findings of CHF, bibasilar consolidations and small left pleural effusion. IR Aspiration/Drain 06/08/2018: IMPRESSION No drainable ascites for paracentesis. US Abd complete 06/09/2018: IMPRESSION Enlarging nodule interposed between the body [...] evaluation of the enlarging peripancreatic lymph node Brief Hospital Course: The patient was admitted and the following issues were addressed during this hospitalization: (with pertinent details). 52 y.o. female admit on 06/07/2018 with PMH of chronic respiratory failure with hypoxia, on home oxygen therapy, DMT2, end stage liver disease, GERD, hx of hepatitis C, HTN, VALERIO, ITP s/p splenectomy, and thrombocytopenia who presented as a transfer to w/ lethargy and worsening abdominal distension found to have CAP with acute hypoxic respiratory failure and hepatic encephalopathy. Reported increased lethargy and confusion after having fall 1 week prior to admission and receiving oxycodone PRN. Also, recent onset of cough and URI with leukocytosis. CT showing abdominal ascites and lung infiltrates, so antibiotics started for SBP and CAP. Negative infectious work-up of RVP, flu, procalcitonin , strep and legionella ags labs. Blood and sputum cultures currently negative. Dry paracentesis in IR. Ammonia levels 120. T bili &INR elevated. AST&ALT wnl. Urine legionella/ strep pneumo neg. RVP neg. Completed 5 day course of rocephin and a 6 day course of doxycycline for CAP. Started on IV lasix 40mg BID and which was changed to her CAMPAIGN ADVISOR bumex 1mg qday alone. Also continued CAMPAIGN ADVISOR rifaximin and lactulose with resolution of encephalopathy. Had right sided low back pain d/t fall prior to admission that limited her ability to participate in PT/OT activities, had MRI of lumbar spine at [facility]. Anesthesia pain did trigger point injections with some relief, could not do epidural injection d /t elevated INR. Pain eventually controlled with oxy and tizanidine. Has appt with anesthesia pain clinic for possible RFA. PP blood glucose was elevated from 191-219, increased mealtime novolog to 8 units during hospitalization and on discharge. Was discharged to [facility] inpatient rehab for ongoing PT/OT. Condition at Discharge: Stable Discharge Diagnoses: Thrombocytopenia (HCC) Type 2 diabetes mellitus with complication (HCC) Idiopathic thrombocytopenic purpura (HCC) History of hepatitis C Morbid obesity (HCC) End stage liver disease (HCC) VALERIO (nonalcoholic steatohepatitis) S/P splenectomy Anemia of chronic disease Hospital Problems Active Problems Thrombocytopenia (HCC) Type 2 diabetes mellitus with complication (HCC) Idiopathic thrombocytopenic purpura (HCC) History of hepatitis C Morbid obesity (HCC) End stage liver disease (HCC) VALERIO (nonalcoholic steatohepatitis) S/P splenectomy Anemia of chronic disease Resolved Problems * (Principal) RESOLVED: Hepatic encephalopathy (HCC) RESOLVED: Pneumonia RESOLVED: CAP (community acquired pneumonia) RESOLVED: Acute hypoxemic respiratory failure (HCC) RESOLVED: Chronic respiratory failure with hypoxia, on home oxygen therapy (HCC ) Surgical Procedures: None Significant Diagnostic Studies and Procedures: IR paracentesis Consults: Hepatology, anesthesia pain Patient Disposition: Outside Rehabilitation Facility Patient instructions/medications: Orders/Medications for Discharges to Home and External Facilities: Activity as Tolerated It is important to [...] work toward your normal activity level at discharge. Report These Signs and Symptoms Please contact your doctor if you have any of the following symptoms: temperature higher than 100 degrees F, uncontrolled pain, difficulty breathing, worsening abdominal pain, increased confusion, yellowing of skin, abdominal swelling. Questions About Your Stay For questions or concerns regarding your hospital stay. Call [phone] Discharging attending physician: KASEY GLASS [[id number]] Diabetic Diet You should eat between 1600 and 2000 calories per day. This is equal to 60g ( grams) of carbohydrates per meal, and 30g of carbohydrates for a bedtime snack. If you have questions about your diet after you go home, you can call a dietitian at [phone]. Medication List START taking these medications benzonatate 100 mg capsule Commonly known as: TESSALON PERLES Take one capsule to two capsules by mouth every 8 hours as needed for Cough. guaiFENesin 100 mg/5 mL oral solution Commonly known as: ROBITUSSIN Take 10 mL by mouth every 4 hours as needed. insulin aspart U-100 100 unit/mL injection PEN Commonly known as: NOVOLOG FLEXPEN Inject zero Units to six Units under the skin before meals and 2200. nystatin 100,000 unit/g topical powder Commonly known as: NYSTOP Apply under breast. oxyCODONE 5 mg tablet Commonly known as: ROXICODONE, OXY-IR Take one tablet by mouth every 4 hours as needed for up to 7 days tiZANidine 2 mg tablet Commonly known as: ZANAFLEX Take one tablet by mouth every 8 hours as needed. CHANGE how you take these medications insulin glargine 100 unit/mL (3 mL) injection PEN Commonly known as: LANTUS SOLOSTAR, BASAGLAR Inject forty Units under the skin at bedtime daily. Patient was taking 50 U BID prior to hospitalization. She is needing significantly less in the hospital off steroids and on diabetic diet. Indications: type 2 diabetes mellitus What changed: how much to take additional instructions insulin lispro(+) 100 unit/mL injection PEN Commonly [...] >400 What changed: how much to take how to take this when to take this additional instructions CONTINUE taking these medications acetaminophen 325 mg tablet Commonly known as: TYLENOL amitriptyline 25 mg tablet Commonly known as: ELAVIL bumetanide 1 mg tablet Commonly known as: BUMEX Carisoprodol 250 mg Tab eltrombopag 50 mg tablet Commonly known as: PROMACTA Take two tablets daily on an empty stomach (at least 1 hour before or 2 hours after food). Separate antacids by at least 4 hours. fluoxetine 20 mg capsule Commonly known as: PROZAC gabapentin 300 mg capsule Commonly known as: NEURONTIN lactulose 10 gram/15 mL oral solution lisinopril 10 mg tablet Commonly known as: PRINIVIL; ZESTRIL Take 1 tablet by mouth daily. loratadine 10 mg Cap rifAXIMin 550 mg tablet Commonly known as: XIFAXAN Take 1 Tab by mouth twice daily. Indications: HEPATIC ENCEPHALOPATHY STOP taking these medications cyclobenzaprine 10 mg tablet Commonly known as: FLEXERIL prednisone 20 mg tablet Commonly known as: DELTASONE Where to Get Your Medications You can get these medications from any pharmacy Bring a paper prescription for each of these medications oxyCODONE 5 mg tablet You don't need a prescription for these medications guaiFENesin 100 mg/5 mL oral solution Information about where to get these medications is not yet available Ask your nurse or doctor about these medications benzonatate 100 mg capsule insulin aspart U-100 100 unit/mL injection PEN insulin glargine 100 unit/mL (3 mL) injection PEN insulin lispro(+) 100 unit/mL injection PEN nystatin 100,000 unit/g topical powder tiZANidine 2 mg tablet Scheduled appointments: July 21, 2018 10:20 AM CDT Return Patient with Melida Scherer APRN [facility] ([facility]) [address] [address] July 26, 2018 3:00 PM CDT Return Patient with Johnson Baron MD [facility] [place] [facility]) [address] [place] [address] [facility] [id number] Pending items needing follow up: liver US w/ indeterminate Lymph node, address in Hepatology clinic and due for screening EGD Signed: Machelle Bailey MS 06/15/2018 cc: Primary Care Physician: Santiago Torres Verified Referring physicians: Marshal Nolan, SALONI Additional provider(s): documented in this encounter Discharge Instructions * Patient Instructions* Joanna Musa, VERENA - 06/08/2018 8:10 AM CDT Discharge Instructions forParacentesis Paracentesis is a procedure to remove extra fluid from your belly (abdomen). This fluid buildup in the abdomen is calledascites. The procedure may have been done to take a sample of the fluid. Or, it may have been done to drain the extra fluid from your abdomenand help make you more comfortable. Ascites is buildup of excess fluid in the abdomen. Home care If you have pain after the procedure, your healthcare provider can prescribe or recommend pain medicines. Take these exactly as directed. If you stopped taking other medicines before the procedure, ask your provider when you can start them again. Take it easy for 24 hours after the procedure. Avoid physical activity until your provider says its OK. You will have a small bandage over the puncture site. Stitches (sutures), surgical nick, adhesive tapes, adhesive strips, or surgical glue may be used to close the incision. They also help stop bleeding and speed healing. You may take the bandage off in 24 hours. Check the puncture site for the signs of infection listed below. Follow-up care Make a follow-up appointment with your healthcare provider as directed. During your follow-up visit, your provider will check your healing. Let your provider know how you are feeling. You can also discuss the cause of your ascites and if you need any further treatment. When to seek medical advice Call your healthcare provider if you have any of the following after the procedure: A fever of 100.4F (38.0C) or higher Trouble breathing Pain that doesn't go away even after taking pain medicine Belly pain not caused by having the skin punctured Bleeding from the puncture site More than a small amount of fluid leaking from the puncture site Swollen belly Signs of infection at the puncture site. These include increased pain, redness, or swelling, warmth, or bad-smelling drainage. Blood in your urine Feeling dizzy or lightheaded, or fainting Date Last Reviewed: 09/19/201519991068-9189 [employer]. [address] [place] [address], [place] [address]. All rights reserved. This information is not intended as a substitute for professional medical care. Always follow your healthcare professional's instructions. documented in this encounter Medications at Time [...] as needed. documented as of this encounter Progress Notes * Yulia Pereira RN - 06/15/2018 12:27 PM CDT Niecy Kayli Richey discharged on 06/15/2018. . Discharge instructions reviewed with patient and family. Valuables returned: Personal Items / Valuables: Cell Phone, Eyeglasses/Contacts, Clothing, Jewelry( ring) Where Are Valuables Stored?: with pt. Home medications: On discharge home medications stored this admission returned to the Patient: Yes. Functional assessment at discharge complete: Yes . Discharge instructions reviewed with patient and . AVS provided. All questions and concerns addressed. was given discharge transfer packet to provide to facility on arrival. Wheelchair to lobby for discharge to [facility] per family vehicle * Kasey Glass MD - 06/15/2018 12:27 PM CDT General Progress Note Name: Niecy Richey Today's Date: 06/15/2018 Admission Date: 06/07/2018 LOS: 8 days Assessment/Plan: Active Problems: Thrombocytopenia (HCC) Type 2 diabetes mellitus with complication (HCC) Idiopathic thrombocytopenic purpura (HCC) History of hepatitis C Morbid obesity (HCC) End stage liver disease (HCC) VALERIO (nonalcoholic steatohepatitis) S/P splenectomy Anemia of chronic disease Anemia of chronic disease 52 y.o. female admit on 06/07/2018, has a past medical history of Chronic respiratory failure with hypoxia, on home oxygen therapy (HCC), DM (diabetes mellitus) (HCC), End stage liver disease (HCC) (06/10/2018), GERD ( gastroesophageal reflux disease), History of hepatitis C (04/18/2017), HTN ( hypertension), VALERIO (nonalcoholic steatohepatitis) (06/10/2018), Neuropathy, S/P splenectomy (06/10/2018), Thrombocytopenia (HCC), and Type 2 diabetes mellitus with complication (HCC) (08/21/2016). presents as a transfer to w/ lethargy and worsening abdominal distension. Community acquired pneumonia, acute hypoxic resp failure -Reports increased lethargy and confusion after having fall 1 week prior to admission and receiving oxycodone PRN. Also, recent onset of cough and URI with leukocytosis. Reported prednisone last week due to injury from fall which may be contributing to leukocytosis. CT showing abdominal ascites and lung infiltrates, so antibiotics started for SBP and CAP. Negative infectious work-up of RVP, flu, procalcitonin, strep and legionella ags labs. Blood and sputum cultures currently negative. Dry paracentesis in IR. Ammonia levels 120. T bili & INR elevated. AST&ALT wnl. Urine legionella/ strep pneumo neg. RVP neg. Completed 5 day course of rocephin and a 6 day course of doxycycline. -duoneb tx -BC No growth to date -home oxygen 2L w/ activity only baseline - IV lasix 40mg BID, 06/11/2018 change to CAMPAIGN ADVISOR Bumex 1mg qday alone -tessalon tid for cough ESLD, hepatic encephalopathy poss due to CAP- Secondary to HCV (treated) and VALERIO. CT A-P: showing ascites. AFP nml. Not an OLT candidate due to BMI>40, Body mass index is 43.04 kg/m. - continue CAMPAIGN ADVISOR rifaxim and lactulose. - IV lasix 40mg BID, 06/11/2018 change to CAMPAIGN ADVISOR Bumex 1mg qday alone MELD-Na score: 15 at 06/09/2018 6:38 AM MELD score: 15 at 06/09/2018 6:38 AM - Hepatology consult, appreciate recs, liver US w/ indeterminate Lymph node, address in Hepatology clinic and due for screening EGD Vitals: 06/07/18 2103 Weight: 128.4 kg (283 lb 1.1 oz) Hx of ITP -s/p splenectomy at age 6 and follows [facility] -Dr. Moran - platelet count wnl on admission, denies any recent bleeds - Cont CAMPAIGN ADVISOR Promacta Lower back pain - Prior history of lower back pain with recent falls and weakness. Had MRI of lumbar spine at [facility] in [place] who have been contacted to cloud images. Family is in favor of discharge to rehab facility to improve strength prior to return home. Rehab medicine consulted, feel she would benefit from inpatient rehab services as well. -Anesthesia pain consult and trigger point injections done, they cannot do epidural injection due to elev INR. RFA could only be done as outpt. -Appointment made with Dr. Baron at [facility] on July 26 at 3:00pm to determine pain control treatments on discharge -had episode of worsened right sided back pain 06/13 preventing her participation in PT/OT activities, minimal relief with tramadol, adequate relief with oxycodone, anesthesia pain notified us that she would not benefit from another trigger point injection, plan to send to rehab with script for oxycodone 5mg so she can complete therapies -tizanidine 2mg po q8h, APAP 500mg po q8h (do not exceed 2g), oxycodone 5mg DM II - -A1c 5.8, postprandial blood glucose readings from 191-219 -increased mealtime Novolog to 8U with adequate control blood glucose -40 U Lantus qhs -LDCF HTN - -CAMPAIGN ADVISOR lisinopril FEN: IVF none, lytes replace prn PPX: enoxaparin, SCDs bilat DISP: Discharge to [facility] inpatient rehab, will transfer her there by personal vehicle Follow up appt w/ PCP: Santiago Torres [phone] and subspecialists. Future Appointments Date Time Provider Department Center 07/21/2018 10:20 AM Melida Scherer APRN [facility] 07/26/2018 3:00 PM Johnson Baron MD [facility] Pt care discussed w/ patient: Emergency Contacts Name Relation Home Work Mobile Prashant Richey Spouse [phone] Christina Gee Mother [phone] Rossi,Kushal Son [phone] There is no immunization history on file for this patient. Seen and discussed with Dr. Glass. Machelle Bailey, [place] Date: 06/15/2018 Subjective Niecy Richey is a 52 y.o. female. Patient reports modest relief of back pain with oxycodone. She slept very well last night as a result. No events overnight , no new complaints today. ROS: General: Pt denies fevers, chills. Cardiopulm: denies CP, palpitations, SOA GI: Pt denies nausea, vomiting, diarrhea, abdominal pain MSK: right sided mid back pain Neuro: denies numbness, tingling, weakness Medications Scheduled Meds: Continuous Infusions: PRN and Respiratory Meds: Objective: Vital Signs: Last Filed Vital Signs: 24 Hour Range BP: 148/65 (06/15 841) Temp: 36.6 C (97.8 F) (06/15 841) Pulse: 68 (06/15 841) Respirations: 20 PER MINUTE (06/15 841) SpO2: 95 % (06/15 841) O2 Delivery: Nasal Cannula (06/15 841) BP: (133-174)/(58-72) Temp: [36.4 C (97.6 F)-36.9 C (98.4 F)] Pulse: [67-71] Respirations: [18 PER MINUTE-22 PER MINUTE] SpO2: [94 %-97 %] O2 Delivery: Nasal Cannula Intensity Pain Scale (Self Report): 4 (06/15/18 0840) Vitals: 06/07/18 2103 Weight: 128.4 kg (283 lb 1.1 oz) Intake/Output Summary: (Last 24 hours) Intake/Output Summary (Last 24 hours) at 06/15/2018 1435 Last data filed at 06/15/2018 1200 Gross per 24 hour Intake 830 ml Output 2000 ml Net -1170 ml Stool Occurrence: 1 Physical Exam General: well developed in No distress w/ Body mass index is 43.04 kg/m. Skin: no rash or wounds, normal capillary refill Heart: S1 S2, no murmur Lungs: clear bilat Abd: soft, NT, +bs MSK: right sided paraspinal tenderness on palpation Vascular: radial and pedal pulses palpable, no edema Neuro: alert and oriented, CARTER, speech intact Lab Review 24-hour labs: Results for orders placed or performed during the hospital encounter of (from the past 24 hour(s)) POC GLUCOSE Collection Time: 06/14/18 6:01 PM Result Value Ref Range Glucose, POC 158 (H) 70 - 100 MG/DL POC GLUCOSE Collection Time: 06/14/18 9:58 PM Result Value Ref Range Glucose, POC 181 (H) 70 - 100 MG/DL CBC AND DIFF Collection Time: 06/15/18 6:18 AM Result Value Ref Range White Blood Cells 22.2 (H) 4.5 - 11.0 K/UL RBC 3.04 (L) 4.0 - 5.0 M/UL Hemoglobin 8.7 (L) 12.0 - 15.0 GM/DL Hematocrit 27.3 (L) 36 - 45 % MCV 89.8 80 - 100 FL MCH 28.5 26 - 34 PG MCHC 31.8 (L) 32.0 - 36.0 G/DL RDW 21.2 (H) 11 - 15 % Platelet Count 134 (L) 150 - 400 K/UL MPV 14.1 (H) 7 - 11 FL Neutrophils 58 41 - 77 % Lymphocytes 27 24 - 44 % Monocytes 13 (H) 4 - 12 % Eosinophils 1 0 - 5 % Basophils 1 0 - 2 % Absolute Neutrophil Count 12.80 (H) 1.8 - 7.0 K/UL Absolute Lymph Count 6.00 (H) 1.0 - 4.8 K/UL Absolute Monocyte Count 3.00 (H) 0 - 0.80 K/UL Absolute Eosinophil Count 0.30 0 - 0.45 K/UL Absolute Basophil Count 0.20 0 - 0.20 K/UL COMPREHENSIVE METABOLIC PANEL Collection Time: 06/15/18 6:18 AM Result Value Ref Range Sodium 139 137 - 147 MMOL/L Potassium 5.0 3.5 - 5.1 MMOL/L Chloride 103 98 - 110 MMOL/L Glucose 141 (H) 70 - 100 MG/DL Blood Urea Nitrogen 25 7 - 25 MG/DL Creatinine 0.79 0.4 - 1.00 MG/DL Calcium 9.2 8.5 - 10.6 MG/DL Total Protein 5.9 (L) 6.0 - 8.0 G/DL Total Bilirubin 1.6 (H) 0.3 - 1.2 MG/DL Albumin 3.2 (L) 3.5 - 5.0 G/DL Alk Phosphatase 88 25 - 110 U/L AST (SGOT) 23 7 - 40 U/L CO2 32 (H) 21 - 30 MMOL/L ALT (SGPT) 12 7 - 56 U/L Anion Gap 4 3 - 12 eGFR Non >60 >60 mL/min eGFR >60 >60 mL/min POC GLUCOSE Collection Time: 06/15/18 8:32 AM Result Value Ref Range Glucose, POC 128 (H) 70 - 100 MG/DL Point of Care Testing (Last 24 hours) Radiology and other Diagnostics Review: Pertinent radiology reviewed. Us Abdomen Complete Result Date: 06/09/2018 Enlarging nodule interposed between the body the [...] that may warrant short-term US surveillance US-3, positive : Observation detected that may warrant contrast-enhanced imaging US visualization score A: No or minimal limitations B: Moderate limitations C: Severe limitations [email or web address].org/Clinical-Resources/Dzezxykkf-iyt-[email or web address] Systems/LI-[email or web address] Finalized by Gustavo Grace M.D. on 06/09/2018 2:22 PM. Dictated by Gustavo Grace M.D. on 06/09/2018 12:58 PM. Machelle Bailey MS ATTESTATION I personally performed or re-performed the history, physical exam and treatment for the E/M. I discussed the case with the Medical Student, and concur with the Medical Student documentation of history, physical exam and treatment plan unless otherwise noted. Staff name: Kasey Glass MD Date: 06/15/2018 * Dayanna Osei RN - 06/15/2018 12:27 PM CDT Report called to VERENA Carmen at [facility]. No questions at this time. * Sharita Crawford RT - 06/15/2018 9:17 AM CDT RT Adult Assessment Note NAME:Niecy Richey :1965 AGE: 52 y.o. ADMISSION DATE: 06/07/2018 DAYS ADMITTED: LOS: 8 days RT Treatment Plan: Protocol Plan: Procedures Oxygen/Humidity: O2 to keep SpO2 > 92% Monitoring: Pulse oximetry BID & PRN Additional Comments: Impressions of the patient: resting with no signs of distress Intervention(s)/outcome(s): assess patient Patient education that was completed: none Recommendations to the care team: none Vital Signs: Pulse: 68 RR: 20 PER MINUTE SpO2: 95 % O2 Device: Cannula Liter Flow: 1 Lpm O2%: Breath Sounds: Clear (implies normal) Respiratory Effort: Non-Labored * Moses Pete PT - 06/14/2018 3:22 PM CDT PHYSICAL THERAPY Patient reports 10/10 low back pain and that she is in too much pain to participate in therapy. Barriers to participation were discussed with the patient and medical team. Patient had received scheduled pain medication prior to my visit. Our service will continue to follow and participate in her care. Therapist: Moses Pete, PT Date: 06/14/2018 * Kasey Glass MD - 06/14/2018 12:35 PM CDT General Progress Note Name: Niecy Richey Today's Date: 06/14/2018 Admission Date: 06/07/2018 LOS: 7 days Assessment/Plan: Principal Problem: Hepatic encephalopathy (HCC) Active Problems: Thrombocytopenia (HCC) Type 2 diabetes mellitus with complication (HCC) Idiopathic thrombocytopenic purpura (HCC) History of hepatitis C Pneumonia Morbid obesity (HCC) CAP (community acquired pneumonia) Acute hypoxemic respiratory failure (HCC) Chronic respiratory failure with hypoxia, on home oxygen therapy (HCC) End stage liver disease (HCC) VALERIO (nonalcoholic steatohepatitis) S/P splenectomy Anemia of chronic disease Anemia of chronic disease 52 y.o. female admit on 06/07/2018, has a past medical history of Chronic respiratory failure with hypoxia, on home oxygen therapy (HCC), DM (diabetes mellitus) (HCC), End stage liver disease (HCC) (06/10/2018), GERD ( gastroesophageal reflux disease), History of hepatitis C (04/18/2017), HTN ( hypertension), VALERIO (nonalcoholic steatohepatitis) (06/10/2018), Neuropathy, S/P splenectomy (06/10/2018), Thrombocytopenia (HCC), and Type 2 diabetes mellitus with complication (HCC) (08/21/2016). presents as a transfer to w/ lethargy and worsening abdominal distension. Community acquired pneumonia, acute hypoxic resp failure -Reports increased lethargy and confusion after having fall 1 week prior to admission and receiving oxycodone PRN. Also, recent onset of cough and URI with leukocytosis. Reported prednisone last week due to fall which may be contributing to leukocytosis. CT showing abdominal ascites and lung infiltrates, so antibiotics started for SBP and CAP. Negative infectious work-up of RVP, flu, procalcitonin , strep and legionella ags labs. Blood and sputum cultures currently negative. Dry paracentesis in IR. Ammonia levels 120. T bili & INR elevated. AST&ALT wnl. Urine legionella/ strep pneumo neg. RVP neg. Completed 5 day course of rocephin and a 6 day course of doxycycline. -duoneb tx -BC No growth to date -home oxygen 2L w/ activity only baseline - IV lasix 40mg BID, 06/11/2018 change to CAMPAIGN ADVISOR Bumex 1mg qday alone -tessalon tid for cough ESLD, hepatic encephalopathy poss due to CAP- Secondary to HCV (treated) and VALERIO. CT A-P: showing ascites. AFP nml. Not an OLT candidate due to BMI>40, Body mass index is 43.04 kg/m. - continue CAMPAIGN ADVISOR rifaxim and lactulose. - IV lasix 40mg BID, 06/11/2018 change to CAMPAIGN ADVISOR Bumex 1mg qday alone MELD-Na score: 15 at 06/09/2018 6:38 AM MELD score: 15 at 06/09/2018 6:38 AM - Hepatology consult, appreciate recs, liver US w/ indeterminate Lymph node, address in Hepatology clinic and due for screening EGD Vitals: 06/07/18 2103 Weight: 128.4 kg (283 lb 1.1 oz) Hx of ITP -s/p splenectomy at age 6 and follows [facility] -Dr. Moran - platelet count wnl on admission, denies any recent bleeds - Cont CAMPAIGN ADVISOR Promacta Lower back pain - Prior history of lower back pain with recent falls and weakness. Had MRI of lumbar spine at [facility] in [place] who have been contacted to cloud images. Family is in favor of discharge to rehab facility to improve strength prior to return home. - tizanidine 2mg po q8h, APAP 500mg po q8h (do not exceed 2g), tramadol 50mg q6h prn -Anesthesia pain consult and trigger point injections done, they cannot do epidural injection due to elev INR. RFA could only be done as outpt -Appointment made with Dr. Baron at [facility] on July 26 at 3:00pm -had episode of worsened right sided back pain yesterday - anesthesia has agreed to see her for possible repeat trigger point injections -PT/OT rec dc to inpt setting SNF/rehab- rehab med consult - they feel she requires acute inpatient rehab after discharge DM II - - A1c 5.8, postprandial blood glucose readings from 191-219 -increased mealtime Novolog to 6-8U, still at 40 U Lantus qhs -LDCF HTN - -BPs 115-152/48-71 -CAMPAIGN ADVISOR lisinopril FEN: IVF none, lytes replace prn, DIET CUSTOM COMBINATIONS PPX: enoxaparin, SCDs bilat Full Code DISP: Day 7 of hospital stay. Barriers to discharge: awaiting prior authorization for acute inpatient rehab Continue inpatient on Med Private K, plan for discharge to inpatient rehab placement- pt agreeable, poss in [place]/ [place]. Follow up appt w/ PCP: Santiago Torres [phone] and subspecialists. Future Appointments Date Time Provider Department Center 07/21/2018 10:20 AM Melida Scherer APRN CFT GEN [facility]P CFT 07/26/2018 3:00 PM Johnson Baron MD [facility] Pt care discussed w/ patient: Emergency Contacts Name Relation Home Work Mobile Prashant Richey Spouse [phone] Christina Gee Mother [phone] Kushal Richey Son [phone] There is no immunization history on file for this patient. Seen and discussed with Dr. Glass. Machelle Bailey MS Date: 06/14/2018 ATTESTATION I personally performed or re-performed the history, physical exam and treatment for the E/M. I discussed the case with the Medical Student, and concur with the Medical Student documentation of history, physical exam and treatment plan unless otherwise noted. Patient's cough better, pain ok at rest but excruciating w movement, will ask pain anesthesia to see to consider tpi- greatly helped except for one area last time Staff name: Kasey Glass MD Date: 06/14/2018 Subjective Niecy Richey is a 52 y.o. female. Patient still reports having right sided back pain not resolved with tramadol. She was able to complete some OT today, but refused using a walker. ROS: General: Pt denies fevers, chills. Cardiopulm: denies CP, palpitations, SOA GI: Pt denies nausea, vomiting, diarrhea, abdominal pain MSK: right sided mid back pain Neuro: denies numbness, tingling, weakness Medications Scheduled Meds: acetaminophen (TYLENOL) tablet 500 mg 500 mg Oral Q8H benzonatate (TESSALON PERLES) capsule 200 mg 200 mg Oral TID bumetanide (BUMEX) tablet 1 mg 1 mg Oral QDAY eltrombopag(+) (PROMACTA) tablet 50 mg 50 mg Oral QDAY enoxaparin (LOVENOX) syringe 40 mg 40 mg Subcutaneous BID fluoxetine (PROZAC) capsule 20 mg 20 mg Oral QDAY insulin aspart U-100 (NOVOLOG FLEXPEN) injection PEN 0-6 Units 0-6 Units Subcutaneous ACHS (22) insulin aspart U-100 (NOVOLOG FLEXPEN) injection PEN 8 Units 8 Units Subcutaneous TID w/ meals insulin glargine (LANTUS SOLOSTAR, BASAGLAR) injection PEN 40 Units 40 Units Subcutaneous QHS lactulose oral solution 20 g 30 mL Oral TID lisinopril (PRINIVIL; ZESTRIL) tablet 10 mg 10 mg Oral QDAY loratadine (CLARITIN) tablet 10 mg 10 mg Oral QDAY rifAXIMin (XIFAXAN) tablet 550 mg 550 mg Oral BID Continuous Infusions: PRN and Respiratory Meds:benzocaine/menthol Q2H PRN, guaiFENesin Q4H PRN, nystatin BID PRN, tiZANidine Q8H PRN, traMADol Q12H PRN Objective: Vital Signs: Last Filed Vital Signs: 24 Hour Range BP: 105/87 (06/14 1233) Temp: 36.3 C (97.4 F) (06/14 1233) Pulse: 64 (06/14 1233) Respirations: 18 PER MINUTE (06/14 1233) SpO2: 93 % (06/14 1233) O2 Delivery: Nasal Cannula (06/14 123) BP: (105-150)/(57-87) Temp: [36.3 C (97.4 F)-36.9 C (98.5 F)] Pulse: [64-72] Respirations: [18 PER MINUTE-20 PER MINUTE] SpO2: [93 %-94 %] O2 Delivery: Nasal Cannula Intensity Pain Scale (Self Report): 3 (06/14/18 0905) Vitals: 06/07/18 2103 Weight: 128.4 kg (283 lb 1.1 oz) Intake/Output Summary: (Last 24 hours) Intake/Output Summary (Last 24 hours) at 06/14/2018 1237 Last data filed at 06/14/2018 0905 Gross per 24 hour Intake 1270 ml Output 650 ml Net 620 ml Stool Occurrence: 1 Physical Exam General: well developed in No distress w/ Body mass index is 43.04 kg/m. Skin: no rash or wounds, normal capillary refill Heart: S1 S2, no murmur Lungs: clear bilat Abd: soft, NT, +bs MSK: right sided paraspinal tenderness on palpation Vascular: radial and pedal pulses palpable, no edema Neuro: alert and oriented, CARTER, speech intact Lab Review 24-hour labs: Results for orders placed or performed during the hospital encounter of (from the past 24 hour(s)) POC GLUCOSE Collection Time: 06/13/18 5:45 PM Result Value Ref Range Glucose, POC 163 (H) 70 - 100 MG/DL POC GLUCOSE Collection Time: 06/13/18 9:33 PM Result Value Ref Range Glucose, POC 193 (H) 70 - 100 MG/DL POC GLUCOSE Collection Time: 06/14/18 8:41 AM Result Value Ref Range Glucose, POC 151 (H) 70 - 100 MG/DL CBC AND DIFF Collection Time: 06/14/18 9:03 AM Result Value Ref Range White Blood Cells 22.2 (H) 4.5 - 11.0 K/UL RBC 3.09 (L) 4.0 - 5.0 M/UL Hemoglobin 8.9 (L) 12.0 - 15.0 GM/DL Hematocrit 27.5 (L) 36 - 45 % MCV 89.1 80 - 100 FL MCH 28.8 26 - 34 PG MCHC 32.4 32.0 - 36.0 G/DL RDW 21.1 (H) 11 - 15 % Platelet Count 151 150 - 400 K/UL MPV 15.6 (H) 7 - 11 FL Neutrophils 57 41 - 77 % Lymphocytes 28 24 - 44 % Monocytes 13 (H) 4 - 12 % Eosinophils 1 0 - 5 % Basophils 1 0 - 2 % Absolute Neutrophil Count 12.60 (H) 1.8 - 7.0 K/UL Absolute Lymph Count 6.30 (H) 1.0 - 4.8 K/UL Absolute Monocyte Count 2.90 (H) 0 - 0.80 K/UL Absolute Eosinophil Count 0.30 0 - 0.45 K/UL Absolute Basophil Count 0.20 0 - 0.20 K/UL COMPREHENSIVE METABOLIC PANEL Collection Time: 06/14/18 9:03 AM Result Value Ref Range Sodium 135 (L) 137 - 147 MMOL/L Potassium 4.7 3.5 - 5.1 MMOL/L Chloride 100 98 - 110 MMOL/L Glucose 148 (H) 70 - 100 MG/DL Blood Urea Nitrogen 21 7 - 25 MG/DL Creatinine 0.71 0.4 - 1.00 MG/DL Calcium 9.2 8.5 - 10.6 MG/DL Total Protein 6.2 6.0 - 8.0 G/DL Total Bilirubin 1.9 (H) 0.3 - 1.2 MG/DL Albumin 3.2 (L) 3.5 - 5.0 G/DL Alk Phosphatase 82 25 - 110 U/L AST (SGOT) 22 7 - 40 U/L CO2 30 21 - 30 MMOL/L ALT (SGPT) 11 7 - 56 U/L Anion Gap 5 3 - 12 eGFR Non >60 >60 mL/min eGFR >60 >60 mL/min POC GLUCOSE Collection Time: 06/14/18 12:30 PM Result Value Ref Range Glucose, POC 147 (H) 70 - 100 MG/DL Point of Care Testing (Last 24 hours) Radiology and other Diagnostics Review: Pertinent radiology reviewed. Us Abdomen Complete Result Date: 06/09/2018 Enlarging nodule interposed between the body the [...] that may warrant short-term US surveillance US-3, positive : Observation detected that may warrant contrast-enhanced imaging US visualization score A: No or minimal limitations B: Moderate limitations C: Severe limitations [email or web address]://[email or web address].org/Clinical-Resources/Upkhgbjnq-lzs-Cexe- Systems/LI-[email or web address] Finalized by Gustavo Grace M.D. on 06/09/2018 2:22 PM. Dictated by Gustavo Grace M.D. on 06/09/2018 12:58 PM. 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 Admit for management of lethargy and worsening abdominal distension, treatment of community acquired pneumonia. Received trigger point injections 06/09 Precautions: (On 1L O2 thorughout session; BLE neuropathy ) Pain / Complaints: Patient agrees to participate in therapy Pain Location: Back Pain Level Current: 10 Worst possible pain Objective Psychosocial Status: Willing and Cooperative to Participate Home Living Type of Home: House Home Layout: One Level;Performs ADL'S on One Level Bathroom Shower / Tub: Walk-in Shower Bathroom Toilet: Standard Bathroom Equipment: Shower Chair;Grab Bars in Shower;Hand-Held Shower;Commode Home Equipment: Walker;Cane;Commode;Wheelchair-manual Comment: Patient reports 2 steps to enter, has ramp if needed. Prior Function Level Of [place]: Independent with ADLs and functional transfers; Independent with homemaking w/ ambulation Lives With: Spouse;Family Receives Help From: Spouse;Family Other Function Comments: Patient reports being IND with ADLs and transfers prior to admission- spouse reports patient would occassionally require assist. Lives with spouse and son and DIL however son and DIL are moving out soon. Patient reports walking in home without AE, uses SPC in community. ADL's Where Assessed: Edge of Bed Eating Assist: Independent Grooming Assist: (Pt states she is unable to stand at the sink to complete, BUE WNL to complete at seated level) LE Dressing Assist: Stand By Assist LE Dressing Deficits: Increased Time To Complete;Don/Doff R Sock;Don/Doff L Sock (painful) Functional Transfer Assist: Minimal Assist (Sit to stand from the bed) Comment: Patient willing to attempt mobility. Supine to sit: modified independent with HOB elevated. Patient ambulates around the bed to the chair using single point cane and hand hold assist with opposite hand. Patient yells out in pain but responds well to relaxation cues and deep breathing. Patient ends sitting in the chair. Dropped off roller walker for next time she mobilizes as it will provide more UB support and lessen back strain. Patient expresses "I never wanted to go back to using a walker," patient tearful. Provided support and encouragement that if a walker is what will increase her safety then it is a necessity. Activity Tolerance Endurance: 1/5 Tolerates <10 Minutes Exercises, No Significant Change in Vital Signs Sitting Balance: 4/5 Moves/Returns Trunkal Midpoint 1-2 Inches in Multiple Planes Cognition Overall Cognitive Status: WFL to Adequately Complete Self Care Tasks Safely Cognition Comment: Anxious with pain. Assessment Assessment: Decreased ADL Status;Decreased Self-Care Trans;Decreased High-Level ADLs;Decreased Endurance Prognosis: Fair;w/Cont OT s/p Acute Discharge AM-PAC 6 Clicks Daily Activity Inpatient Putting on and taking off regular lower body clothes?: None Bathing (Including washing, rinsing, drying): A Little Toileting, which includes using toilet, bedpan, or urinal: A Little Putting on and taking off regular upper body clothing: A Little Taking care of personal grooming such as brushing teeth: A Little Eating meals?: None Daily Activity Raw Score: 20 Standardized (t-scale) score: 42.03 CMS 0-100% Score: 38.32 CMS G Code Modifier: CJ Plan OT Frequency: 3-5x/week OT Plan for Next Visit: Increase functional endurance, toilet transfer with clothing management, sink level ADLs ADL Goals Patient Will Perform All ADL's: w/ Modified [place] Functional Transfer Goals Pt Will Perform All Functional Transfers: Modified Independent OT Discharge Recommendations OT Discharge Recommendations: Inpatient Setting Equipment Recommendations: Patient owns necessary equipment Additional Information: Due to patient's unsteady gait, 3 recent falls, low back pain and overall decreased endurance, patient would benefit from continued skilled therapy to address above deficits. Anticipate patient to be short stay at inpatient setting as patient is high level. Patient and spouse agreeable, patient agreeable if placement close to home. Recommend ongoing assistance for: In and out of house, Transfers, Ambulation, Stairs, Safety concerns, Dressing, Toileting, Bathing Therapist: ALIYAH Jackson [id number] Date: 06/14/2018 * Atul Pettit RN - 06/13/2018 11:31 PM CDT Pt's IV removed due to discomfort (pain, burning, itchiness). Per ALANNA Flowers for pt not to have IV access. * Christopher Mcguire - 06/13/2018 3:49 PM CDT PHYSICAL THERAPY MOBILITY NOTE Patient was assigned for activity with the mobility aide by the supervising therapist. When patient stood at side of bed they mentioned lower back pain that rated an 8 of 10. Patient stated they would not be able to walk at this time, physical therapist and nurse were notified. Will follow back tomorrow. Aide: Christopher Mcguire Date: 06/13/2018 * [place] - 06/13/2018 3:32 PM CDT PHYSICAL THERAPY NOTE Per mobility aide, patient with 10/10 pain and unable to stand and bear weight. MA aborted session. Asked MA to place walker in room for further support. Will re-evaluate patient's abilities next session. Therapist: [place] Date: 06/13/2018 * Kasey Glass MD - 06/13/2018 12:07 PM CDT General Progress Note Name: Niecy Richey Today's Date: 06/13/2018 Admission Date: 06/07/2018 LOS: 6 days Assessment/Plan: Principal Problem: Hepatic encephalopathy (HCC) Active Problems: Thrombocytopenia (HCC) Type 2 diabetes mellitus with complication (HCC) Idiopathic thrombocytopenic purpura (HCC) History of hepatitis C Pneumonia Morbid obesity (HCC) CAP (community acquired pneumonia) Acute hypoxemic respiratory failure (HCC) Chronic respiratory failure with hypoxia, on home oxygen therapy (HCC) End stage liver disease (HCC) VALERIO (nonalcoholic steatohepatitis) S/P splenectomy Anemia of chronic disease 52 y.o. female admit on 06/07/2018, has a past medical history of Chronic respiratory failure with hypoxia, on home oxygen therapy (HCC), DM (diabetes mellitus) (HCC), End stage liver disease (HCC) (06/10/2018), GERD ( gastroesophageal reflux disease), History of hepatitis C (04/18/2017), HTN ( hypertension), VALERIO (nonalcoholic steatohepatitis) (06/10/2018), Neuropathy, S/P splenectomy (06/10/2018), Thrombocytopenia (HCC), and Type 2 diabetes mellitus with complication (HCC) (08/21/2016). presents as a transfer to w/ lethargy and worsening abdominal distension. Community acquired pneumonia, acute hypoxic resp failure -Reports increased lethargy and confusion after having fall 1 week prior to admission and receiving oxycodone PRN. Also, recent onset of cough and URI with leukocytosis. Reported prednisone last week due to fall which may be contributing to leukocytosis. CT showing abdominal ascites and lung infiltrates, so antibiotics started for SBP and CAP. Negative infectious work-up of RVP, flu, procalcitonin , strep and legionella ags labs. Blood and sputum cultures currently negative. Dry paracentesis in IR. Ammonia levels 120. T bili & INR elevated. AST&ALT wnl. Urine legionella/ strep pneumo neg. RVP neg. Completed 5 day course of rocephin and a 6 day course of doxycycline. -duoneb tx -BC No growth to date -home oxygen 2L w/ activity only baseline - IV lasix 40mg BID, 06/11/2018 change to CAMPAIGN ADVISOR Bumex 1mg qday alone -tessalon tid for cough ESLD, hepatic encephalopathy poss due to CAP- Secondary to HCV (treated) and VALERIO. CT A-P: showing ascites. AFP nml. Not an OLT candidate due to BMI>40, Body mass index is 43.04 kg/m. - continue CAMPAIGN ADVISOR rifaxim and lactulose. - IV lasix 40mg BID, 06/11/2018 change to CAMPAIGN ADVISOR Bumex 1mg qday alone MELD-Na score: 15 at 06/09/2018 6:38 AM MELD score: 15 at 06/09/2018 6:38 AM - Hepatology consult, appreciate recs, liver US w/ indeterminate Lymph node, address in Hepatology clinic and due for screening EGD Vitals: 06/07/18 2103 Weight: 128.4 kg (283 lb 1.1 oz) Hx of ITP -s/p splenectomy at age 6 and follows [facility] -Dr. Moran - platelet count wnl on admission, denies any recent bleeds - Cont CAMPAIGN ADVISOR Promacta Lower back pain - Prior history of lower back pain with recent falls and weakness. Had MRI of lumbar spine at [facility] in [place] who have been contacted to cloud images. Family is in favor of discharge to rehab facility to improve strength prior to return home. - tizanidine 2mg po q8h, APAP 500mg po q8h (do not exceed 2g), tramadol 50mg q6h prn -Anesthesia pain consult and trigger point injections done, they cannot do epidural injection due to elev INR. RFA could only be done as outpt - appointment made with Dr. Baron at [facility] on July 26 at 3:00pm -PT/OT rec dc to inpt setting SNF/rehab- rehab med consult - they feel she requires acute inpatient rehab after discharge DM II - - A1c 5.8, postprandial blood glucose readings from 191-219 -increased mealtime Novolog to 6-8U, still at 40 U Lantus qhs -LDCF HTN - -BPs 115-152/48-71 -CAMPAIGN ADVISOR lisinopril FEN: IVF none, lytes replace prn, DIET CUSTOM COMBINATIONS PPX: enoxaparin, SCDs bilat Full Code DISP: Day 6 of hospital stay. Barriers to discharge: awaiting prior authorization for acute inpatient rehab Continue inpatient on Med Private K, plan for discharge to inpatient rehab placement- pt agreeable, poss in [place]/ [place]. Follow up appt w/ PCP: Santiago Torres [phone] and subspecialists. Future Appointments Date Time Provider Department Center 07/21/2018 10:20 AM Melida Scherer APRN CFT [facility] 07/26/2018 3:00 PM Johnson Baron MD [facility] Pt care discussed w/ patient: Emergency Contacts Name Relation Home Work Mobile Prashant Richey Spouse [phone] Christina Gee Mother [phone] Rossi,Kushal Son [phone] There is no immunization history on file for this patient. Seen and discussed with Dr. Glass. Machelle Bailey, MS Date: 06/13/2018 Subjective Niecy Richey is a 52 y.o. female. Patient reports ongoing dry cough and hoarse voice. Had an episode of worsened right sided mid back pain while performing OT activities. She describes the pain as 5/10, constant, and worse with movement. Does not radiate down her leg. Denies any new numbness, tingling , or weakness down her right leg. States she did not do any heavy lifting or overly strenuous activity. ROS: General: Pt denies fevers, chills. Cardiopulm: denies CP, palpitations, SOA GI: Pt denies nausea, vomiting, diarrhea, abdominal pain MSK: right sided mid back pain Neuro: denies numbness, tingling, weakness Medications Scheduled Meds: acetaminophen (TYLENOL) tablet 500 mg 500 mg Oral Q8H amitriptyline/gabapentin/emu oil(#) 4/4/10 % topical cream Topical Q8H benzonatate (TESSALON PERLES) capsule 100 mg 100 mg Oral TID bumetanide (BUMEX) tablet 1 mg 1 mg Oral QDAY diclofenac (VOLTAREN) 1 % topical gel 2 g 2 g Topical QID eltrombopag(+) (PROMACTA) tablet 50 mg 50 mg Oral QDAY enoxaparin (LOVENOX) syringe 40 mg 40 mg Subcutaneous BID fluoxetine (PROZAC) capsule 20 mg 20 mg Oral QDAY insulin aspart U-100 (NOVOLOG FLEXPEN) injection PEN 0-6 Units 0-6 Units Subcutaneous ACHS (22) insulin aspart U-100 (NOVOLOG FLEXPEN) injection PEN 8 Units 8 Units Subcutaneous TID w/ meals insulin glargine (LANTUS SOLOSTAR, BASAGLAR) injection PEN 40 Units 40 Units Subcutaneous QHS lactulose oral solution 20 g 30 mL Oral TID lidocaine (LIDODERM) 5 % topical patch 1 patch 1 patch Topical QDAY lisinopril (PRINIVIL; ZESTRIL) tablet 10 mg 10 mg Oral QDAY loratadine (CLARITIN) tablet 10 mg 10 mg Oral QDAY rifAXIMin (XIFAXAN) tablet 550 mg 550 mg Oral BID Continuous Infusions: PRN and Respiratory Meds:benzocaine/menthol Q2H PRN, guaiFENesin Q4H PRN, nystatin BID PRN, tiZANidine Q8H PRN Objective: Vital Signs: Last Filed Vital Signs: 24 Hour Range BP: 151/65 (06/13 756) Temp: 36.5 C (97.7 F) (06/13 075) Pulse: 70 (06/13 075) Respirations: 18 PER MINUTE (06/13 075) SpO2: 96 % (06/13 1111) O2 Delivery: Nasal Cannula (06/13 756) BP: (120-151)/(59-71) Temp: [36.5 C (97.7 F)-36.9 C (98.5 F)] Pulse: [65-74] Respirations: [17 PER MINUTE-18 PER MINUTE] SpO2: [92 %-97 %] O2 Delivery: Nasal Cannula Intensity Pain Scale (Self Report): 10 (06/13/18 1015) Vitals: 06/07/18 2103 Weight: 128.4 kg (283 lb 1.1 oz) Intake/Output Summary: (Last 24 hours) Intake/Output Summary (Last 24 hours) at 06/13/2018 1208 Last data filed at 06/13/2018 0757 Gross per 24 hour Intake 1244 ml Output 1450 ml Net -206 ml Stool Occurrence: 1 Physical Exam General: well developed in No distress w/ Body mass index is 43.04 kg/m. Skin: no rash or wounds, normal capillary refill Heart: S1 S2, no murmur Lungs: clear bilat Abd: soft, NT, +bs MSK: right sided paraspinal tenderness on palpation Vascular: radial and pedal pulses palpable, no edema Neuro: alert and oriented, CARTER, speech intact Lab Review 24-hour labs: Results for orders placed or performed during the hospital encounter of (from the past 24 hour(s)) POC GLUCOSE Collection Time: 06/12/18 4:53 PM Result Value Ref Range Glucose, POC 191 (H) 70 - 100 MG/DL POC GLUCOSE Collection Time: 06/12/18 9:31 PM Result Value Ref Range Glucose, POC 192 (H) 70 - 100 MG/DL CBC AND DIFF Collection Time: 06/13/18 6:30 AM Result Value Ref Range White Blood Cells 21.5 (H) 4.5 - 11.0 K/UL RBC 3.08 (L) 4.0 - 5.0 M/UL Hemoglobin 8.7 (L) 12.0 - 15.0 GM/DL Hematocrit 27.4 (L) 36 - 45 % MCV 89.0 80 - 100 FL MCH 28.3 26 - 34 PG MCHC 31.8 (L) 32.0 - 36.0 G/DL RDW 21.6 (H) 11 - 15 % Platelet Count 152 150 - 400 K/UL MPV 14.2 (H) 7 - 11 FL Neutrophils 59 41 - 77 % Lymphocytes 23 (L) 24 - 44 % Monocytes 15 (H) 4 - 12 % Eosinophils 2 0 - 5 % Basophils 1 0 - 2 % Absolute Neutrophil Count 12.90 (H) 1.8 - 7.0 K/UL Absolute Lymph Count 5.00 (H) 1.0 - 4.8 K/UL Absolute Monocyte Count 3.20 (H) 0 - 0.80 K/UL Absolute Eosinophil Count 0.30 0 - 0.45 K/UL Absolute Basophil Count 0.20 0 - 0.20 K/UL COMPREHENSIVE METABOLIC PANEL Collection Time: 06/13/18 6:30 AM Result Value Ref Range Sodium 138 137 - 147 MMOL/L Potassium 4.3 3.5 - 5.1 MMOL/L Chloride 100 98 - 110 MMOL/L Glucose 130 (H) 70 - 100 MG/DL Blood Urea Nitrogen 24 7 - 25 MG/DL Creatinine 0.72 0.4 - 1.00 MG/DL Calcium 9.2 8.5 - 10.6 MG/DL Total Protein 6.0 6.0 - 8.0 G/DL Total Bilirubin 1.7 (H) 0.3 - 1.2 MG/DL Albumin 3.3 (L) 3.5 - 5.0 G/DL Alk Phosphatase 75 25 - 110 U/L AST (SGOT) 22 7 - 40 U/L CO2 34 (H) 21 - 30 MMOL/L ALT (SGPT) 13 7 - 56 U/L Anion Gap 4 3 - 12 eGFR Non >60 >60 mL/min eGFR >60 >60 mL/min POC GLUCOSE Collection Time: 06/13/18 8:10 AM Result Value Ref Range Glucose, POC 128 (H) 70 - 100 MG/DL Point of Care Testing (Last 24 hours) Radiology and other Diagnostics Review: Pertinent radiology reviewed. Us Abdomen Complete Result Date: 06/09/2018 Enlarging nodule interposed between the body the [...] that may warrant short-term US surveillance US-3, positive : Observation detected that may warrant contrast-enhanced imaging US visualization score A: No or minimal limitations B: Moderate limitations C: Severe limitations [email or web address]://www.acr.org/Clinical-Resources/Hfebnkyfx-psb-Npta- Systems/LI-RADS Finalized by Gustavo Grace M.D. on 06/09/2018 2:22 PM. Dictated by Gustavo Grace M.D. on 06/09/2018 12:58 PM. Machelle Bailey MS ATTESTATION I personally performed or re-performed the history, physical exam and treatment for the E/M. I discussed the case with the Medical Student, and concur with the Medical Student documentation of history, physical exam and treatment plan unless otherwise noted. Staff name: Kasey Glass MD Date: 06/13/2018 * Machelle Laughlin OTA - 06/13/2018 9:50 AM CDT OCCUPATIONAL THERAPY NOTE Patient declines activity at this time due to 10/10 low back pain. Patient sitting in chair and repositions self frequently and also has heating pad. RN entered and made aware of pain level. Encouraged patient to attempt to ambulate with this therapist to see if movement helps with pain. Educated staying in one place too long will exacerbate her pain. Patient verbalizes understanding. Patient requests therapy return later. Will continue to follow and provide intervention as indicated. Therapist: ALIYAH Jackson [id number] Date: 06/13/2018 * Heather Mueller RN - 06/13/2018 6:52 AM CDT I have reviewed the notes, assessment, and/or procedures performed by Eusebia Feng RN and concur with her documentation unless otherwise noted. * Jennifer Ball RT - 06/12/2018 6:23 PM CDT RT Adult Assessment Note NAME:Niecy Richey :1965 AGE: 52 y.o. ADMISSION DATE: 06/07/2018 DAYS ADMITTED: LOS: 5 days RT Treatment Plan: Protocol Plan: Procedures PEP Therapy: Place a nursing order for "IS Q1h While Awake" for any of Lung Expansion indicators Oxygen/Humidity: O2 to keep SpO2 > 95%(Anemia) Monitoring: Pulse oximetry BID & PRN Additional Comments: Impressions of the patient: NAD, on 1L NC Vital Signs: Pulse: 72 RR: 17 PER MINUTE SpO2: 96 % O2 Device: Cannula Liter Flow: 1 Lpm Breath Sounds: Apices clear, bases decreased Respiratory Effort: Non-Labored * Christopher Mcguire - 06/12/2018 3:10 PM CDT PHYSICAL THERAPY MOBILITY NOTE Patient was assigned for activity with the mobility aide by the supervising therapist. Nurse was placing line at time of visit, will follow back tomorrow. Aide: Christopher Mcguire Date: 06/12/2018 * Kasey Glass MD - 06/12/2018 12:18 PM CDT General Progress Note Name: Niecy Richey Today's Date: 06/12/2018 Admission Date: 06/07/2018 LOS: 5 days Assessment/Plan: Principal Problem: Hepatic encephalopathy (HCC) Active Problems: Thrombocytopenia (HCC) Type 2 diabetes mellitus with complication (HCC) Idiopathic thrombocytopenic purpura (HCC) History of hepatitis C Pneumonia Morbid obesity (HCC) CAP (community acquired pneumonia) Acute hypoxemic respiratory failure (HCC) Chronic respiratory failure with hypoxia, on home oxygen therapy (HCC) End stage liver disease (HCC) VALERIO (nonalcoholic steatohepatitis) S/P splenectomy 52 y.o. female admit on 06/07/2018, has a past medical history of Chronic respiratory failure with hypoxia, on home oxygen therapy (HCC), DM (diabetes mellitus) (HCC), End stage liver disease (HCC) (06/10/2018), GERD ( gastroesophageal reflux disease), History of hepatitis C (04/18/2017), HTN ( hypertension), VALERIO (nonalcoholic steatohepatitis) (06/10/2018), Neuropathy, S/P splenectomy (06/10/2018), Thrombocytopenia (HCC), and Type 2 diabetes mellitus with complication (HCC) (08/21/2016). presents as a transfer to w/ lethargy and worsening abdominal distension. Community acquired pneumonia, acute hypoxic resp failure -Reports increased lethargy and confusion after having fall 1 week prior to admission and receiving oxycodone PRN. Also, recent onset of cough and URI with leukocytosis. Reported prednisone last week due to fall which may be contributing to leukocytosis. CT showing abdominal ascites and lung infiltrates, so antibiotics started for SBP and CAP. Negative infectious work-up of RVP, flu, procalcitonin , strep and legionella ags labs. Blood and sputum cultures currently negative. Dry paracentesis in IR. Ammonia levels 120. T bili & INR elevated. AST&ALT wnl. Urine legionella/ strep pneumo neg. RVP neg. -cont rocephin (high dose due to wt) and doxycycline, on day 5 for both (2018) -duoneb tx -BC No growth to date -home oxygen 2L w/ activity only baseline - IV lasix 40mg BID, 06/11/2018 change to CAMPAIGN ADVISOR Bumex 1mg qday alone -tessalon qhs ESLD, hepatic encephalopathy poss due to CAP- Secondary to HCV (treated) and VALERIO. CT A-P: showing ascites. AFP nml. Not an OLT candidate due to BMI>40, Body mass index is 43.04 kg/m. - continue CAMPAIGN ADVISOR rifaxim and lactulose. - IV lasix 40mg BID, 06/11/2018 change to CAMPAIGN ADVISOR Bumex 1mg qday alone MELD-Na score: 15 at 06/09/2018 6:38 AM MELD score: 15 at 06/09/2018 6:38 AM - Hepatology consult, appreciate recs, liver US w/ indeterminate Lymph node, address in Hepatology clinic and due for screening EGD Vitals: 06/07/18 2103 Weight: 128.4 kg (283 lb 1.1 oz) Hx of ITP -s/p splenectomy at age 6 and follows [facility] -Dr. Moran - platelet count wnl on admission, denies any recent bleeds - Cont CAMPAIGN ADVISOR Promacta Lower back pain - Prior history of lower back pain with recent falls and weakness. Had MRI of lumbar spine at [facility] in [place] who have been contacted to cloud images. Family is in favor of discharge to rehab facility to improve strength prior to return home. - voltaren gel and Emu/ amitryptyline/ gabapentin oil - tizanidine 2mg po q8h, APAP 500mg po q8h (do not exceed 2g) -Anesthesia pain consult and trigger point injections done, they cannot do epidural injection due to elev INR. RFA could only be done as outpt - appointment made with Dr. Baron at [facility] on July 26 at 3:00pm -PT/OT rec dc to inpt setting SNF/rehab- rehab med consult - they feel she requires acute inpatient rehab after discharge DM II - A1c 5.8 -increased mealtime Novolog to 6 U, still at 40 U Lantus qhs -LDCF FEN: IVF none, lytes replace prn, DIET CUSTOM COMBINATIONS PPX: enoxaparin, SCDs bilat Full Code DISP: Day 5 of hospital stay. Barriers to discharge: acute inpatient rehab determination Continue inpatient on Med Private K, plan for discharge to SNF/ rehab placement - pt agreeable, poss in [place]/ [place]. Follow up appt w/ PCP: Santiago Torres [phone] and subspecialists. Future Appointments Date Time Provider Department Center 07/21/2018 10:20 AM Melida Scherer APRN [facility] 07/26/2018 3:00 PM Johnson Baron MD [facility] Pt care discussed w/ patient: Emergency Contacts Name Relation Home Work Mobile Prashant Richey Spouse [phone] Christina Gee Mother [phone] Rossi,Kushal Son [phone] There is no immunization history on file for this patient. Staff name: Machelle Bailey MS Date: 06/12/2018 Subjective Niecy Richey is a 52 y.o. female. Patient reports ongoing dry cough without sputum production. Also reports right upper back pain, states this is chronic. ROS: General: Pt denies fevers, chills. GI: Pt denies nausea, vomiting, diarrhea Medications Scheduled Meds: acetaminophen (TYLENOL) tablet 500 mg 500 mg Oral Q8H amitriptyline/gabapentin/emu oil(#) 4/4/10 % topical cream Topical Q8H benzonatate (TESSALON PERLES) capsule 100 mg 100 mg Oral QHS bumetanide (BUMEX) tablet 1 mg 1 mg Oral QDAY cefTRIAXone (ROCEPHIN) IVP 2 g 2 g Intravenous Q24H* diclofenac (VOLTAREN) 1 % topical gel 2 g 2 g Topical QID doxycycline (VIBRAMYCIN) tablet 100 mg 100 mg Oral BID eltrombopag(+) (PROMACTA) tablet 50 mg 50 mg Oral QDAY enoxaparin (LOVENOX) syringe 40 mg 40 mg Subcutaneous BID fluoxetine (PROZAC) capsule 20 mg 20 mg Oral QDAY insulin aspart U-100 (NOVOLOG FLEXPEN) injection PEN 0-6 Units 0-6 Units Subcutaneous ACHS (22) insulin aspart U-100 (NOVOLOG FLEXPEN) injection PEN 6 Units 6 Units Subcutaneous TID w/ meals insulin glargine (LANTUS SOLOSTAR, BASAGLAR) injection PEN 40 Units 40 Units Subcutaneous QHS lactulose oral solution 20 g 30 mL Oral TID lidocaine (LIDODERM) 5 % topical patch 1 patch 1 patch Topical QDAY loratadine (CLARITIN) tablet 10 mg 10 mg Oral QDAY rifAXIMin (XIFAXAN) tablet 550 mg 550 mg Oral BID Continuous Infusions: PRN and Respiratory Meds:benzocaine/menthol Q2H PRN, guaiFENesin Q4H PRN, nystatin BID PRN, tiZANidine Q8H PRN Objective: Vital Signs: Last Filed Vital Signs: 24 Hour Range BP: 115/48 (06/12 1149) Temp: 36.8 C (98.3 F) (06/12 1149) Pulse: 71 (06/12 1149) Respirations: 18 PER MINUTE (06/12 1149) SpO2: 93 % (06/12 1149) O2 Delivery: None (Room Air) (06/12 1149) BP: (106-152)/(48-62) Temp: [36.6 C (97.8 F)-36.8 C (98.3 F)] Pulse: [68-88] Respirations: [18 PER MINUTE] SpO2: [92 %-97 %] O2 Delivery: None (Room Air) Intensity Pain Scale (Self Report): 7 (06/12/18 0848) Vitals: 06/07/18 2103 Weight: 128.4 kg (283 lb 1.1 oz) Intake/Output Summary: (Last 24 hours) Intake/Output Summary (Last 24 hours) at 06/12/2018 1219 Last data filed at 06/12/2018 0911 Gross per 24 hour Intake 390 ml Output 1100 ml Net -710 ml Stool Occurrence: 2(per pt. ) Physical Exam General: well developed in No distress w/ Body mass index is 43.04 kg/m. Skin: no rash or wounds, normal capillary refill Heart: S1 S2, no murmur Lungs: clear bilat Abd: soft, NT, ND, +bs Vascular: radial and pedal pulses palpable, no edema Neuro: alert and oriented, CARTER, speech intact Lab Review 24-hour labs: Results for orders placed or performed during the hospital encounter of (from the past 24 hour(s)) POC GLUCOSE Collection Time: 06/11/18 5:11 PM Result Value Ref Range Glucose, POC 208 (H) 70 - 100 MG/DL POC GLUCOSE Collection Time: 06/11/18 6:19 PM Result Value Ref Range Glucose, POC 356 (H) 70 - 100 MG/DL POC GLUCOSE Collection Time: 06/11/18 9:43 PM Result Value Ref Range Glucose, POC 190 (H) 70 - 100 MG/DL CBC AND DIFF Collection Time: 06/12/18 6:23 AM Result Value Ref Range White Blood Cells 21.7 (H) 4.5 - 11.0 K/UL RBC 3.12 (L) 4.0 - 5.0 M/UL Hemoglobin 8.8 (L) 12.0 - 15.0 GM/DL Hematocrit 27.9 (L) 36 - 45 % MCV 89.4 80 - 100 FL MCH 28.3 26 - 34 PG MCHC 31.6 (L) 32.0 - 36.0 G/DL RDW 21.8 (H) 11 - 15 % Platelet Count 177 150 - 400 K/UL MPV 12.9 (H) 7 - 11 FL Neutrophils 62 41 - 77 % Lymphocytes 19 (L) 24 - 44 % Monocytes 15 (H) 4 - 12 % Eosinophils 3 0 - 5 % Basophils 1 0 - 2 % Absolute Neutrophil Count 13.30 (H) 1.8 - 7.0 K/UL Absolute Lymph Count 4.20 1.0 - 4.8 K/UL Absolute Monocyte Count 3.30 (H) 0 - 0.80 K/UL Absolute Eosinophil Count 0.60 (H) 0 - 0.45 K/UL Absolute Basophil Count 0.20 0 - 0.20 K/UL COMPREHENSIVE METABOLIC PANEL Collection Time: 06/12/18 6:23 AM Result Value Ref Range Sodium 138 137 - 147 MMOL/L Potassium 4.6 3.5 - 5.1 MMOL/L Chloride 99 98 - 110 MMOL/L Glucose 160 (H) 70 - 100 MG/DL Blood Urea Nitrogen 28 (H) 7 - 25 MG/DL Creatinine 0.90 0.4 - 1.00 MG/DL Calcium 8.8 8.5 - 10.6 MG/DL Total Protein 6.1 6.0 - 8.0 G/DL Total Bilirubin 1.6 (H) 0.3 - 1.2 MG/DL Albumin 3.4 (L) 3.5 - 5.0 G/DL Alk Phosphatase 69 25 - 110 U/L AST (SGOT) 30 7 - 40 U/L CO2 35 (H) 21 - 30 MMOL/L ALT (SGPT) 14 7 - 56 U/L Anion Gap 4 3 - 12 eGFR Non >60 >60 mL/min eGFR >60 >60 mL/min POC GLUCOSE Collection Time: 06/12/18 8:08 AM Result Value Ref Range Glucose, POC 150 (H) 70 - 100 MG/DL POC GLUCOSE Collection Time: 06/12/18 11:55 AM Result Value Ref Range Glucose, POC 219 (H) 70 - 100 MG/DL Point of Care Testing (Last 24 hours) Radiology and other Diagnostics Review: Pertinent radiology reviewed. Us Abdomen Complete Result Date: 06/09/2018 Enlarging nodule interposed between the body the [...] that may warrant short-term US surveillance US-3, positive : Observation detected that may warrant contrast-enhanced imaging US visualization score A: No or minimal limitations B: Moderate limitations C: Severe limitations [email or web address]://www.acr.org/Clinical-Resources/Xxgryjfle-tai-Prhr- Systems/LI-RADS Finalized by Gustavo Grace M.D. on 06/09/2018 2:22 PM. Dictated by Gustavo Grace M.D. on 06/09/2018 12:58 PM. Machelle Bailey, MS ATTESTATION I personally performed or re-performed the history, physical exam and treatment for the E/M. I discussed the case with the Medical Student, and concur with the Medical Student documentation of history, physical exam and treatment plan unless otherwise noted. Dry cough: adding jaylen melissamary ESLD: pt discharging to [facility] 2.5 hrs away, requested rescheduling outpatient hepatology Chronic LBP; inpt rehab, f/u pain anesthesia as outpt Working on inpatient rehab facility closer to home. 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 Admit for management of lethargy and worsening abdominal distension, treatment of community acquired pneumonia. Received trigger point injections 06/09. Mental / Cognitive Status: Alert;Oriented;Cooperative;Follows Commands Pain: Patient complains of pain;10/10;During activity Pain Location: Back Pain Description: Aching Pain Interventions: Patient agrees to participate in therapy;Nursing staff notified of patient's pain level;Treatment altered to patient's pain tolerance; Patient assisted into position of comfort Ambulation Assist: Independent Mobility in Community with Device Patient Owned Equipment: Single Point Cane;Roller Walker;Manual Wheelchair; Commode Home Situation: Lives with Family(, son, and [id number]) Type of Home: House Entry Stairs: 1-2 Stairs;Ramp(2 PRESLEY) In-Home Stairs: No Stairs BED MOBILITY/TRANSFERS: Bed Mobility/Transfers Bed Mobility: Supine to Sit: Standby Assist;Head of Bed Elevated Bed Mobility: Sit to Supine: Standby Assist;HOB Elevated Transfer Type: Sit to/from Stand(x2 reps) Transfer: Assistance Level: To/From;Bed;Bed Side Chair(contact guard assistance) Transfer: Assistive Device: Single Point Cane Transfers: Type Of Assistance: For Safety Considerations Other Transfer Type: Sit to/from Stand Other Transfer: Assistance Level: To/From;Toilet;Standby Assist Other Transfer: Assistive Device: (grab bars) Other Transfer: Type Of Assistance: For Safety Considerations End Of Activity Status: In Bed;Instructed Patient to Request Assist with Mobility;Instructed Patient to Use Call Light(bed alarm on, call light in reach) Comments: Limited by pain and fatigue. GAIT: Gait Gait Distance: 50 feet Gait: Assistance Level: Minimal Assist;Moderate Assist Gait: Assistive Device: Single Point Cane Gait: Descriptors: Antalgic;Pace: Slow;Swing-Through Gait;Variable step length Comments: Attempted horizontal and vertical head turns to challenge balance during gait. Patient unable to perform without stopping or losing balance. Reports dizziness and requests to return to room to sit down. Activity Limited By: Complaint of Pain;Complaint of Fatigue;Weakness ASSESSMENT/PROGRESS: Assessment/Progress Impaired Mobility Due To: Pain;Impaired Balance;Decreased Strength;Safety Concerns;Decreased Activity Tolerance Assessment/Progress: Should Improve w/ Continued PT Comments: Patient motivated to participate. Continues to be limited by severe LBP and generalized weakness. Did not tolerate dynamic gait tasks, reporting dizziness and requesting to end ambulation. Will benefit from ongoing therapy to progress activity tolerance and mobility independence as able. AM-PAC 6 Clicks Basic Mobility [...] Little To walk in hospital room: A Little Climbing 3-5 steps with a railing: A Lot Raw Score: 17 Standardized (T-scale) Score: 39.67 Basic Mobility CMS 0-100%: 43.83 CMS G Code Modifier for Basic Mobility: CK GOALS: Goals Goal Formulation: With Patient/Family Time For Goal Achievement: 5 days, To, 7 days Patient Will Go Supine To/From Sit: w/ Stand By Assist(HOB flat) Patient Will Transfer Sit to Stand: Independently Patient Will Ambulate: 101-150 Feet, w/ Cane, w/ Stand By Assist Patient Will Go Up / Down Stairs: 1-2 Stairs, w/ Stand By Assist PLAN: Plan Treatment Interventions: Mobility Training;Strengthening;Balance Activities; Endurance Training Plan Frequency: 5 Days per Week PT Plan for Next Visit: Formal balance assessment (BJORN, attempted DGI 06/12 but patient unable to tolerate/complete due to dizziness), ambulation training. Review home exercise plan. RECOMMENDATIONS: PT Discharge Recommendations PT Discharge Recommendations: Inpatient Setting Equipment Recommendations: Patient owns necessary equipment Therapist: Azul Hardin PT, DPT [id number] Date: 06/12/2018 * Darlene Díaz MD - 06/11/2018 9:57 AM CDT General Progress Note Name: Niecy Richey Today's Date: 06/11/2018 Admission Date: 06/07/2018 LOS: 4 days Assessment/Plan: Principal Problem: Hepatic encephalopathy (HCC) Active Problems: Thrombocytopenia (HCC) Type 2 diabetes mellitus with complication (HCC) Idiopathic thrombocytopenic purpura (HCC) History of hepatitis C Pneumonia Morbid obesity (HCC) CAP (community acquired pneumonia) Acute hypoxemic respiratory failure (HCC) Chronic respiratory failure with hypoxia, on home oxygen therapy (HCC) End stage liver disease (HCC) VALERIO (nonalcoholic steatohepatitis) S/P splenectomy 52 y.o. female admit on 06/07/2018, has a past medical history of Chronic respiratory failure with hypoxia, on home oxygen therapy (HCC), DM (diabetes mellitus) (HCC), End stage liver disease (HCC) (06/10/2018), GERD ( gastroesophageal reflux disease), History of hepatitis C (04/18/2017), HTN ( hypertension), VALERIO (nonalcoholic steatohepatitis) (06/10/2018), Neuropathy, S/P splenectomy (06/10/2018), Thrombocytopenia (HCC), and Type 2 diabetes mellitus with complication (HCC) (08/21/2016). presents as a transfer to w/ lethargy and worsening abdominal distension. Community acquired pneumonia, acute hypoxic resp failure -Reports increased lethargy and confusion after having fall 1 week prior to admission and receiving oxycodone PRN. Also, recent onset of cough and URI with leukocytosis. Reported prednisone last week due to fall which may be contributing to leukocytosis. CT showing abdominal ascites and lung infiltrates, so antibiotics started for SBP and CAP. Negative infectious work-up of RVP, flu, procalcitonin , strep and legionella ags labs. Blood and sputum cultures currently negative. Dry paracentesis in IR. Ammonia levels 120. T bili & INR elevated. AST&ALT wnl. Urine legionella/ strep pneumo neg. RVP neg. -cont rocephin (high dose due to wt) and doxycycline - duoneb tx -BC No growth to date -home oxygen 2L w/ activity only baseline - IV lasix 40mg BID, 06/11/2018 change to CAMPAIGN ADVISOR Bumex 1mg qday alone -tessalon qhs ESLD, hepatic encephalopathy poss due to CAP- Secondary to HCV (treated) and VALERIO. CT A-P: showing ascites. AFP nml. Not an OLT candidate due to BMI>40, Body mass index is 43.04 kg/m. - continue CAMPAIGN ADVISOR rifaxim and lactulose. - IV lasix 40mg BID, 06/11/2018 change to CAMPAIGN ADVISOR Bumex 1mg qday alone MELD-Na score: 15 at 06/09/2018 6:38 AM MELD score: 15 at 06/09/2018 6:38 AM - Hepatology consult, appreciate recs, liver US w/ indeterminate Lymph node, address in Hepatology clinic and due for screening EGD Vitals: 06/07/18 2103 Weight: 128.4 kg (283 lb 1.1 oz) Hx of ITP -s/p splenectomy at age 6 and follows [facility] -Dr. Moran - platelet count wnl on admission, denies any recent bleeds - Cont CAMPAIGN ADVISOR Promacta Lower back pain - Prior history of lower back pain with recent falls and weakness. Had MRI of lumbar spine at [facility] in [place] who have been contacted to cloud images. Family is in favor of discharge to rehab facility to improve strength prior to return home. - voltaren gel and Emu/ amitryptyline/ gabapentin oil -Anesthesia pain consult and trigger point injections done, they cannot due epidural injection due to elev INR. RFA could only be done as outpt -PT/OT rec dc to inpt setting SNF/rehab- rehab med consult DM II - A1c 5.8 - decrease CAMPAIGN ADVISOR insulin( Lantus 50u bid, humalog 18u TID) to 40u Lantus qhs, 06/10 dc CAMPAIGN ADVISOR humalog 18 TID due to low blood glucose. -LDCF HTN- CAMPAIGN ADVISOR lisinopril FEN: IVF none, lytes replace prn, DIET CUSTOM COMBINATIONS PPX: enoxaparin, SCDs bilat Full Code DISP: Day 4 of hospital stay. Barriers to discharge: PT/OT rec SNF placement Continue inpatient on [facility], plan for discharge to SNF/ rehab placement - pt agreeable, poss in [place]/ [place]. Follow up appt w/ PCP: Santiago Torres [phone] and subspecialists. Future Appointments Date Time Provider Department Center 06/21/2018 1:00 PM Melida Scherer APRN CFT GEN HEP CFT [facility] Pt care discussed w/ patient: Emergency Contacts Name Relation Home Work Mobile Prashant Richey Spouse [phone] Christina Gee Mother [phone] Kushal Richey Son [phone] There is no immunization history on file for this patient. Staff name: Darlene Díaz MD Date: 06/11/2018 Subjective Niecy Richey is a 52 y.o. female. Patient reports Ongoing cough and poor sleep. ROS: General: Pt denies fevers, chills. GI: Pt denies nausea, vomiting, diarrhea Medications Scheduled Meds: acetaminophen (TYLENOL) tablet 500 mg 500 mg Oral Q8H amitriptyline/gabapentin/emu oil(#) 4/4/10 % topical cream Topical Q8H benzonatate (TESSALON PERLES) capsule 100 mg 100 mg Oral QHS bumetanide (BUMEX) tablet 1 mg 1 mg Oral QDAY cefTRIAXone (ROCEPHIN) IVP 2 g 2 g Intravenous Q24H* diclofenac (VOLTAREN) 1 % topical gel 2 g 2 g Topical QID doxycycline (VIBRAMYCIN) tablet 100 mg 100 mg Oral BID eltrombopag(+) (PROMACTA) tablet 50 mg 50 mg Oral QDAY enoxaparin (LOVENOX) syringe 40 mg 40 mg Subcutaneous BID fluoxetine (PROZAC) capsule 20 mg 20 mg Oral QDAY insulin aspart U-100 (NOVOLOG FLEXPEN) injection PEN 0-6 Units 0-6 Units Subcutaneous ACHS (22) insulin glargine (LANTUS SOLOSTAR, BASAGLAR) injection PEN 40 Units 40 Units Subcutaneous QHS lactulose oral solution 20 g 30 mL Oral TID lidocaine (LIDODERM) 5 % topical patch 1 patch 1 patch Topical QDAY loratadine (CLARITIN) tablet 10 mg 10 mg Oral QDAY rifAXIMin (XIFAXAN) tablet 550 mg 550 mg Oral BID Continuous Infusions: PRN and Respiratory Meds:benzocaine/menthol Q2H PRN, guaiFENesin Q4H PRN, nystatin BID PRN, tiZANidine Q8H PRN Objective: Vital Signs: Last Filed Vital Signs: 24 Hour Range BP: 137/50 (06/12 819) Temp: 36.9 C (98.5 F) (06/12 819) Pulse: 78 (06/12 819) Respirations: 20 PER MINUTE (06/12 819) SpO2: 92 % (06/12 819) O2 Delivery: None (Room Air) (06/12 819) BP: (116-137)/(50-59) Temp: [36.7 C (98.1 F)-36.9 C (98.5 F)] Pulse: [74-88] Respirations: [16 PER MINUTE-22 PER MINUTE] SpO2: [90 %-95 %] O2 Delivery: None (Room Air) Intensity Pain Scale (Self Report): 5 (06/11/18 0906) Vitals: 06/07/18 2103 Weight: 128.4 kg (283 lb 1.1 oz) Intake/Output Summary: (Last 24 hours) Intake/Output Summary (Last 24 hours) at 06/11/2018 1013 Last data filed at 06/11/2018 0906 Gross per 24 hour Intake 1114 ml Output 500 ml Net 614 ml Stool Occurrence: 0 Physical Exam General: well developed in No distress w/ Body mass index is 43.04 kg/m. Skin: no rash or wounds, normal capillary refill HEENT: no erythema, no drainage Neck: supple, no adenopathy, thyroid smooth Heart: S1 S2, no murmur Lungs: clear bilat Abd: soft, NT, ND, +bs, no hepatosplenomegaly Musculoskeletal: full ROM Vascular: radial and pedal pulses palpable, no edema Neuro: alert and oriented, CARTER, speech intact Lab Review 24-hour labs: Results for orders placed or performed during the hospital encounter of (from the past 24 hour(s)) POC GLUCOSE Collection Time: 06/10/18 11:20 AM Result Value Ref Range Glucose, POC 243 (H) 70 - 100 MG/DL POC GLUCOSE Collection Time: 06/10/18 5:32 PM Result Value Ref Range Glucose, POC 172 (H) 70 - 100 MG/DL POC GLUCOSE Collection Time: 06/10/18 9:40 PM Result Value Ref Range Glucose, POC 167 (H) 70 - 100 MG/DL CBC AND DIFF Collection Time: 06/11/18 5:49 AM Result Value Ref Range White Blood Cells 18.6 (H) 4.5 - 11.0 K/UL RBC 2.96 (L) 4.0 - 5.0 M/UL Hemoglobin 8.5 (L) 12.0 - 15.0 GM/DL Hematocrit 26.8 (L) 36 - 45 % MCV 90.6 80 - 100 FL MCH 28.8 26 - 34 PG MCHC 31.7 (L) 32.0 - 36.0 G/DL RDW 23.1 (H) 11 - 15 % Platelet Count 155 150 - 400 K/UL MPV 14.4 (H) 7 - 11 FL Nucleated RBCs 9 K/UL Segmented Neutrophils 65 41 - 77 % Bands 1 0 - 10 % Lymphocytes 15 (L) 24 - 44 % Monocytes 13 (H) 4 - 12 % Eosinophil 6 (H) 0 - 5 % ANISO PRESENT HYPO PRESENT POIK PRESENT POLY PRESENT Ovalocyte PRESENT Schistocyte PRESENT Target PRESENT Platelet Estimate NORMAL Silva Cells PRESENT Absolute Neutrophil Count Manual 12.28 (H) 1.8 - 7.0 K/UL COMPREHENSIVE METABOLIC PANEL Collection Time: 06/11/18 5:49 AM Result Value Ref Range Sodium 140 137 - 147 MMOL/L Potassium 4.3 3.5 - 5.1 MMOL/L Chloride 101 98 - 110 MMOL/L Glucose 155 (H) 70 - 100 MG/DL Blood Urea Nitrogen 23 7 - 25 MG/DL Creatinine 0.79 0.4 - 1.00 MG/DL Calcium 8.6 8.5 - 10.6 MG/DL Total Protein 5.8 (L) 6.0 - 8.0 G/DL Total Bilirubin 1.4 (H) 0.3 - 1.2 MG/DL Albumin 3.1 (L) 3.5 - 5.0 G/DL Alk Phosphatase 61 25 - 110 U/L AST (SGOT) 19 7 - 40 U/L CO2 36 (H) 21 - 30 MMOL/L ALT (SGPT) 11 7 - 56 U/L Anion Gap 3 3 - 12 eGFR Non >60 >60 mL/min eGFR >60 >60 mL/min PTT (APTT) Collection Time: 06/11/18 5:49 AM Result Value Ref Range APTT 30.3 24.0 - 36.5 SEC POC GLUCOSE Collection Time: 06/11/18 8:20 AM Result Value Ref Range Glucose, POC 139 (H) 70 - 100 MG/DL Point of Care Testing (Last 24 hours) Radiology and other Diagnostics Review: Pertinent radiology reviewed. Us Abdomen Complete Result Date: 06/09/2018 Enlarging nodule interposed between the body the [...] that may warrant short-term US surveillance US-3, positive : Observation detected that may warrant contrast-enhanced imaging US visualization score A: No or minimal limitations B: Moderate limitations C: Severe limitations [email or web address] Finalized by Gustavo Grace M.D. on 06/09/2018 2:22 PM. Dictated by Gustavo Grace M.D. on 06/09/2018 12:58 PM. Darlene Díaz MD Pager [phone] * Bessy Mcdonough - 06/10/2018 4:16 PM CDT PHYSICAL THERAPY MOBILITY NOTE Patient participated in an exercise program with the assistance of the P.T. mobility aide as part of the ongoing physical therapy plan of care. Patient assigned with MA for walking, but she couldn't make up to it, since she had severe back pain, which she rated as 10/10. Patient however did fewmarches in place to see if the pain would get better, but the pain was staying the same. Mobility Progressive Mobility Level: Stand Level of Assistance: Assist X1 Assistive Device: Cane Activity Limited By: Pain(Severe back pain) Aide: Bessy Mcdonough Date: 06/10/2018 * Darlene Díaz MD - 06/10/2018 8:20 AM CDT General Progress Note Name: Niecy Richey Today's Date: 06/10/2018 Admission Date: 06/07/2018 LOS: 3 days Assessment/Plan: Principal Problem: Hepatic encephalopathy (HCC) Active Problems: Thrombocytopenia (HCC) Type 2 diabetes mellitus with complication (HCC) Idiopathic thrombocytopenic purpura (HCC) History of hepatitis C Pneumonia Morbid obesity (HCC) CAP (community acquired pneumonia) Acute hypoxemic respiratory failure (HCC) Chronic respiratory failure with hypoxia, on home oxygen therapy (HCC) End stage liver disease (HCC) VALERIO (nonalcoholic steatohepatitis) S/P splenectomy 52 y.o. female admit on 06/07/2018, has a past medical history of Chronic respiratory failure with hypoxia, on home oxygen therapy (HCC), DM (diabetes mellitus) (HCC), End stage liver disease (HCC) (06/10/2018), GERD ( gastroesophageal reflux disease), History of hepatitis C (04/18/2017), HTN ( hypertension), VALERIO (nonalcoholic steatohepatitis) (06/10/2018), Neuropathy, S/P splenectomy (06/10/2018), Thrombocytopenia (HCC), and Type 2 diabetes mellitus with complication (HCC) (08/21/2016). presents as a transfer to w/ lethargy and worsening abdominal distension. Community acquired pneumonia -Reports increased lethargy and confusion after having fall 1 week prior to admission and receiving oxycodone PRN. Also, recent onset of cough and URI with leukocytosis. Reported prednisone last week due to fall which may be contributing to leukocytosis. CT showing abdominal ascites and lung infiltrates, so antibiotics started for SBP and CAP. Negative infectious work-up of RVP, flu, procalcitonin, strep and legionella ags labs. Blood and sputum cultures currently negative. Dry paracentesis in IR. Ammonia levels 120. T bili & INR elevated. AST&ALT wnl. Urine legionella/ strep pneumo neg. RVP neg. -cont rocephin and doxycycline - duoneb tx -BC No growth to date ESLD, hepatic encephalopathy poss due to CAP- Secondary to HCV (treated) and VALERIO. CT A-P: showing ascites. AFP nml. Not an OLT candidate due to BMI>40, Body mass index is 43.04 kg/m. - continue CAMPAIGN ADVISOR rifaxim and lactulose. - Continue IV lasix 40mg BID. (CAMPAIGN ADVISOR Bumex 1mg qday alone) -MELD-Na score: 15 at 06/09/2018 6:38 AM MELD score: 15 at 06/09/2018 6:38 AM - Hepatology consult, appreciate recs, liver US w/ indeterminate Lymph node, address in Hepatology clinic and due for screening EGD Vitals: 06/07/18 2103 Weight: 128.4 kg (283 lb 1.1 oz) Hx of ITP -s/p splenectomy at age 6 and follows [facility] -Dr. Moran - platelet count wnl on admission, denies any recent bleeds - Cont CAMPAIGN ADVISOR Promacta Lower back pain - Prior history of lower back pain with recent falls and weakness. Had MRI of lumbar spine at [facility] in [place] who have been contacted to cloud images. Family is in favor of discharge to rehab facility to improve strength prior to return home. - voltaren gel and Emu/ amitryptyline/ gabapentin oil -Anesthesia pain consult and trigger point injections done, they cannot due epidural injection due to elev INR. RFA could only be done as outpt -PT/OT rec dc to inpt setting SNF/rehab DM II - A1c 5.8 - decrease CAMPAIGN ADVISOR insulin( Lantus 50u bid, humalog 18u TID) to 40u Lantus qhs, 06/10 dc aspart TID due to low blood glucose. -LDCF HTN- CAMPAIGN ADVISOR lisinopril FEN: IVF none, lytes replace prn, DIET LOW SODIUM PPX: enoxaparin, SCDs bilat Full Code DISP: Day 3 of hospital stay. Barriers to discharge: PT/OT rec SNF placement Continue inpatient on [employer] plan for discharge to SNF/ rehab placement - pt agreeable, poss in [place], [place] poss after 06/12. Follow up appt w/ PCP: Santiago Torres [phone] and subspecialists. Future Appointments Date Time Provider Department Center 06/21/2018 1:00 PM Melida Scherer APRN CFT GEN HEP CFT [facility] Pt care discussed w/ patient: Emergency Contacts Name Relation Home Work Mobile Prashant Richey Spouse [phone] Christina Gee Mother [phone] Kushal Richey Son [phone] There is no immunization history on file for this patient. Staff name: Darlene Díaz MD Date: 06/10/2018 Subjective Niecy Richey is a 52 y.o. female. Patient reports breathing is better, ongoing cough, agreeable to snf/ rehab stay. ROS: General: Pt denies fevers, chills. GI: Pt denies nausea, vomiting, diarrhea Medications Scheduled Meds: acetaminophen (TYLENOL) tablet 500 mg 500 mg Oral Q8H amitriptyline/gabapentin/emu oil(#) 4/4/10 % topical cream Topical Q8H cefTRIAXone (ROCEPHIN) IVP 2 g 2 g Intravenous Q24H* diclofenac (VOLTAREN) 1 % topical gel 2 g 2 g Topical QID doxycycline (VIBRAMYCIN) tablet 100 mg 100 mg Oral BID eltrombopag(+) (PROMACTA) tablet 50 mg 50 mg Oral QDAY enoxaparin (LOVENOX) syringe 40 mg 40 mg Subcutaneous BID fluoxetine (PROZAC) capsule 20 mg 20 mg Oral QDAY furosemide (LASIX) injection 40 mg 40 mg Intravenous BID(-17) insulin aspart U-100 (NOVOLOG FLEXPEN) injection PEN 0-6 Units 0-6 Units Subcutaneous ACHS (22) insulin glargine (LANTUS SOLOSTAR, BASAGLAR) injection PEN 40 Units 40 Units Subcutaneous QHS lactulose oral solution 20 g 30 mL Oral TID lidocaine (LIDODERM) 5 % topical patch 1 patch 1 patch Topical QDAY loratadine (CLARITIN) tablet 10 mg 10 mg Oral QDAY rifAXIMin (XIFAXAN) tablet 550 mg 550 mg Oral BID Continuous Infusions: PRN and Respiratory Meds:benzocaine/menthol Q2H PRN, guaiFENesin Q4H PRN, nystatin BID PRN Objective: Vital Signs: Last Filed Vital Signs: 24 Hour Range BP: 133/54 (06/10 737) Temp: 36.8 C (98.3 F) (06/10 737) Pulse: 86 (06/10 737) Respirations: 20 PER MINUTE (06/10 737) SpO2: 92 % (06/10 737) O2 Delivery: Nasal Cannula (06/10 737) BP: (111-156)/(54-89) Temp: [36.8 C (98.3 F)-37.6 C (99.6 F)] Pulse: [75-92] Respirations: [20 PER MINUTE-22 PER MINUTE] SpO2: [92 %-96 %] O2 Delivery: Nasal Cannula Intensity Pain Scale (Self Report): Asleep (06/10/18 0415) Vitals: 06/07/18 2103 Weight: 128.4 kg (283 lb 1.1 oz) Intake/Output Summary: (Last 24 hours) Intake/Output Summary (Last 24 hours) at 06/10/2018 0839 Last data filed at 06/10/2018 0415 Gross per 24 hour Intake 682 ml Output 950 ml Net -268 ml Stool Occurrence: 0 Physical Exam General: well developed in No distress w/ Body mass index is 43.04 kg/m. Skin: no rash or wounds, normal capillary refill HEENT: no erythema, no drainage Neck: supple, no adenopathy, thyroid smooth Heart: S1 S2, no murmur Lungs: clear bilat Abd: soft, NT, ND, +bs, no hepatosplenomegaly Musculoskeletal: full ROM Vascular: radial and pedal pulses palpable, no edema Neuro: alert and oriented, CARTER, speech intact Lab Review 24-hour labs: Results for orders placed or performed during the hospital encounter of (from the past 24 hour(s)) POC GLUCOSE Collection Time: 06/09/18 1:27 PM Result Value Ref Range Glucose, POC 82 70 - 100 MG/DL POC GLUCOSE Collection Time: 06/09/18 6:11 PM Result Value Ref Range Glucose, POC 109 (H) 70 - 100 MG/DL POC GLUCOSE Collection Time: 06/09/18 9:49 PM Result Value Ref Range Glucose, POC 154 (H) 70 - 100 MG/DL PTT (APTT) Collection Time: 06/10/18 4:58 AM Result Value Ref Range APTT 30.6 24.0 - 36.5 SEC COMPREHENSIVE METABOLIC PANEL Collection Time: 06/10/18 4:58 AM Result Value Ref Range Sodium 142 137 - 147 MMOL/L Potassium 3.9 3.5 - 5.1 MMOL/L Chloride 102 98 - 110 MMOL/L Glucose 111 (H) 70 - 100 MG/DL Blood Urea Nitrogen 16 7 - 25 MG/DL Creatinine 0.75 0.4 - 1.00 MG/DL Calcium 8.7 8.5 - 10.6 MG/DL Total Protein 6.0 6.0 - 8.0 G/DL Total Bilirubin 1.9 (H) 0.3 - 1.2 MG/DL Albumin 3.3 (L) 3.5 - 5.0 G/DL Alk Phosphatase 65 25 - 110 U/L AST (SGOT) 21 7 - 40 U/L CO2 32 (H) 21 - 30 MMOL/L ALT (SGPT) 10 7 - 56 U/L Anion Gap 8 3 - 12 eGFR Non >60 >60 mL/min eGFR >60 >60 mL/min CBC AND DIFF Collection Time: 06/10/18 4:58 AM Result Value Ref Range White Blood Cells 20.3 (H) 4.5 - 11.0 K/UL RBC 3.12 (L) 4.0 - 5.0 M/UL Hemoglobin 9.0 (L) 12.0 - 15.0 GM/DL Hematocrit 28.0 (L) 36 - 45 % MCV 89.8 80 - 100 FL MCH 28.8 26 - 34 PG MCHC 32.1 32.0 - 36.0 G/DL RDW 21.6 (H) 11 - 15 % Platelet Count 154 150 - 400 K/UL MPV 13.3 (H) 7 - 11 FL Nucleated RBCs 19 K/UL Segmented Neutrophils 68 41 - 77 % Lymphocytes 18 (L) 24 - 44 % Monocytes 10 4 - 12 % Eosinophil 4 0 - 5 % ANISO PRESENT HYPO PRESENT POIK PRESENT POLY PRESENT Ovalocyte PRESENT MACRO PRESENT Target PRESENT Platelet Estimate NORMAL Absolute Neutrophil Count Manual 13.80 (H) 1.8 - 7.0 K/UL POC GLUCOSE Collection Time: 06/10/18 7:43 AM Result Value Ref Range Glucose, POC 114 (H) 70 - 100 MG/DL Point of Care Testing (Last 24 hours) Radiology and other Diagnostics Review: Pertinent radiology reviewed. Us Abdomen Complete Result Date: 06/09/2018 Enlarging nodule interposed between the body the [...] that may warrant short-term US surveillance US-3, positive : Observation detected that may warrant contrast-enhanced imaging US visualization score A: No or minimal limitations B: Moderate limitations C: Severe limitations [email or web address]-Resources/Cbhbczwys-[email or web address] Systems/[email or web address] Finalized by Gustavo Grace M.D. on 06/09/2018 2:22 PM. Dictated by Gustavo Grace M.D. on 06/09/2018 12:58 PM. Darlene Díaz MD Pager [phone] * Vicente Elise MD - 06/09/2018 2:57 PM CDT Gastroenterology progress note Patient Name:Niecy Richey Admission Date: 06/07/2018 8:55 PM Principal Problem: Hepatic encephalopathy (HCC) Active Problems: Thrombocytopenia (HCC) Type 2 diabetes mellitus with complication (HCC) Idiopathic thrombocytopenic purpura (HCC) History of hepatitis C Pneumonia Morbid obesity (HCC) CAP (community acquired pneumonia) Acute hypoxemic respiratory failure (HCC) Chronic respiratory failure with hypoxia, on home oxygen therapy (HCC) Subjective: Patient mentioned that she had lumbar trigger point injections this morning at bedside and she feels better already. No new complaints. No episodes of confusion in the hospital. Assessment/ Plan: 52-year-old history of end-stage liver disease secondary to HCV and Valerio decompensated with history of ascites and hepatic encephalopathy now admitted for worsening lethargy and confusion and possible community-acquired pneumonia. Decompensated liver cirrhosis-secondary to HCV and Valerio MELD-Na score: 15 at 06/09/2018 6:38 AM MELD score: 15 at 06/09/2018 6:38 AM Calculated from: Serum Creatinine: 0.68 MG/DL (Rounded to 1 MG/DL) at 06/09/2018 6:38 AM Serum Sodium: 143 MMOL/L (Rounded to 137 MMOL/L) at 06/09/2018 6:38 AM Total Bilirubin: 2.0 MG/DL at 06/09/2018 6:38 AM INR(ratio): 1.7 at 06/08/2018 1:00 AM Age: 52 years Decompensation secondary to ascites and hepatic encephalopathy. During the last visit in May 2017 she was not OLT candidate because of her BMI greater than 40 and her meld score being too low at 11. HCV treated in 2012 with interferon and ribavirin and achieved SVR. Ascites: Last paracentesis in August 2016 with removal of 1750 cc of ascitic fluid. No SBP. She is on Bumex 1 mg twice daily at the home. No ascitic fluid for paracentesis as per interventional radiology. Hepatic encephalopathy: She was on lactulose and Xifaxan at home. No evidence of encephalopathy today. No asterixis. Esophageal varices: No EGD available for screening for esophageal varices. HCC screening: Alpha-fetoprotein normal at 3 on 06/08/2018. Ultrasound on 06/09/2018 showing enlarging nodule interposed between the body of the pancreas in the left lobe of the liver most compatible with indeterminate lymph node. Mildly enlarged cirrhotic liver with no discrete hepatic mass. Indeterminate lymph node between the pancreas body and left lobe of liver: Enlarging compared to prior ultrasound Community-acquired pneumonia: Bilateral lung infiltrate seen on the CT scan done at the outside facility. Leukocytosis present. On Rocephin and doxycycline. ITP: S/P splenectomy when she was 6. On promacta Recommendations: -Antibiotic therapy for the treatment of community-acquired pneumonia per primary team. -Continue lactulose and titrate to 3 bowel movements a day. Continue Xifaxan. -She is due for a screening EGD. This can be scheduled outpatient when she visits with her primary chief of service in the clinic. -Discussion about further evaluation of this enlarging lymph node between the pancreas and the liver can be done during her clinic visit as well. -Discussed importance of weight loss which will help her considered for a liver transplant evaluation if needed in the future. -Appreciate pain management help for the trigger point injections. -Resume home diuretics at discharge. -Recommend less than 2 g sodium diet. Recommend protein supplementation with meals. -She is scheduled with Melida Scherer on 06/21/2018. She was requested to keep that appointment and visit with her primary chief of service on that day. -Meld labs to be obtained on the day of visit. -Hepatology will sign off. Please call with questions. Patient seen and discussed with Dr. Glass. Vicente Elise MD GI/Hepatology Fellow [phone] PMH: Past Medical History: Diagnosis Date Chronic respiratory failure with hypoxia, on home oxygen therapy (HCC) 2L NC w/ exertion DM (diabetes mellitus) (HCC) GERD (gastroesophageal reflux disease) HTN (hypertension) Neuropathy Thrombocytopenia (HCC) Current medications: No current facility-administered medications on file prior to encounter. Current Outpatient Medications on File Prior to Encounter Medication Sig Dispense Refill acetaminophen (TYLENOL) 325 mg tablet Take 650 mg by mouth daily as needed for Pain. Max of 4,000 mg of acetaminophen in 24 hours. amitriptyline (ELAVIL) 25 mg tablet Take 25 mg by mouth at bedtime daily. bumetanide (BUMEX) 1 mg tablet Take 1 mg by mouth daily. Carisoprodol 250 mg tab Take 1 tablet by mouth three times daily. cyclobenzaprine (FLEXERIL) 10 mg tablet Take 10 mg by mouth three times daily as needed for Muscle Cramps. eltrombopag (PROMACTA) 50 mg tablet Take two tablets daily on an empty stomach (at least 1 hour before or 2 hours after food). Separate antacids by at least 4 hours. 60 tablet 3 fluoxetine (PROZAC) 20 mg capsule Take 20 mg by mouth daily. gabapentin (NEURONTIN) 300 mg capsule Take 1 capsule by mouth in the morning , two capsules in the afternoon and two capsules in the evening as needed. insulin glargine (LANTUS SOLOSTAR) 100 unit/mL (3 mL) injection PEN Inject 50 Units under the skin at bedtime daily. (Patient taking differently: Inject 50 Units under the skin twice daily.) 3 Package 3 insulin lispro(+) (HUMALOG KWIKPEN INSULIN) 100 unit/mL injection PEN Inject 18 units under the skin three times daily before meals. On sliding scale. lactulose 10 gram/15 mL oral solution Take 20 g by mouth four times daily. lisinopril (PRINIVIL; ZESTRIL) 10 mg tablet Take 1 tablet by mouth daily. 90 tablet 3 loratadine 10 mg cap Take 1 capsule by mouth daily. prednisone (DELTASONE) 20 mg tablet Take 40 mg by mouth daily with breakfast. rifAXIMin (XIFAXAN) 550 mg tablet Take 1 Tab by mouth twice daily. Indications: HEPATIC ENCEPHALOPATHY 60 Tab 11 PSH: Past Surgical History: Procedure Laterality Date HX HYSTERECTOMY SPLENECTOMY SH: Social History Socioeconomic History Marital status: Spouse [...] file Social History Narrative Not on file FH: Noncontributory. Review of Systems: Constitutional: No fevers, chills, weight loss Eyes: No vision deficit, no icterus Ears, nose, mouth: No oral bleeding, ulcer Cardiovascular: No chest pain, palpitations Respiratory: No dyspnea, cough Gastrointestinal: No abdominal pain, blood in stool Musculoskeltal: No joint inflammation, new deformity Integumentary: No rashes, exudate Neurologic: No cognitive change, focal weakness Hematologic: No for easy bleeding or bruising Please see HPI for additional pertinent documentation Physical Exam: Vitals: 06/09/18 0801 06/09/18 0817 06/09/18 1028 06/09/18 1210 BP: 121/54 111/58 Pulse: 92 86 Temp: 36.7 C (98.1 F) 37.6 C (99.6 F) SpO2: 96% 95% 95% 94% Weight: Height: Constitutional- Vitals above, no acute distress. Head - Normocephalic, atraumatic. Respiratory - Symmetric chest rise, no increased work of breathing. Cardiovascular - Peripheral pulses intact, no pedal edema. Gastrointestinal- Non-TTP. No hepatospenomegaly. Skin - No exposed rash, lesion. Neurologic - No CN deficit, normal fluid speech, no asterixis. Psychiatric - Judgement intact, thought content appropriate. Labs/Imaging: Pertient labs/imaging were reviewed on initiation of progress note. Associated attestation - Tasha Glass MD - 06/10/2018 1:19 PM CDT ATTESTATION I personally performed the jarrell portions of the E/M visit, discussed case with resident and concur with resident documentation of history, physical exam, assessment, and treatment plan unless otherwise noted. 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 Admit for management of lethargy and worsening abdominal distension, treatment of community acquired pneumonia. Received trigger point injections 06/09 Precautions: (On 1L O2 thorughout session; BLE neuropathy ) Pain / Complaints: Patient agrees to participate in therapy Pain Location: Back Pain Level Current: 10 Worst possible pain Comments: Upon arrival, patient supine in bed. Patient reports 10/10 pain when sitting, reports 7/10 pain when ambulating. Patient endorses having 3 recent falls "I get unsteady". After session, patient in bed, alarm on, and all needs in reach. Objective Psychosocial Status: Willing and Cooperative to Participate Persons Present: Physical Therapist;Spouse Home Living Type of Home: House Home Layout: One Level;Performs ADL'S on One Level Bathroom Shower / Tub: Walk-in Shower Bathroom Toilet: Standard Bathroom Equipment: Shower Chair;Grab Bars in Shower;Hand-Held Shower;Commode Home Equipment: Walker;Cane;Commode;Wheelchair-manual Comment: Patient reports 2 steps to enter, has ramp if needed. Prior Function Level Of [place]: Independent with ADLs and functional transfers; Independent with homemaking w/ ambulation Lives With: Spouse;Family Receives Help From: Spouse;Family Other Function Comments: Patient reports being IND with ADLs and transfers prior to admission- spouse reports patient would occassionally require assist. Lives with spouse and son and DIL however son and DIL are moving out soon. Patient reports walking in home without AE, uses SPC in community. Vision Current Vision: Wears Glasses All of the Time Comment: No acute visual changes ADL's Where Assessed: Edge of Bed Eating Assist: Independent Eating Deficits: No Assist Needed LE Dressing Assist: Stand By Assist LE Dressing Deficits: Supervision/Safety;Don/Doff R Sock;Don/Doff L Sock Functional Transfer Assist: Minimal Assist Functional Transfer Deficits: Supervision/Safety Comment: HOB elevated, patient independent in bed mobility, sits EOB independently. Patient demonstrates ability to doff/don socks with setup. Patient stands with CGA/SBA, ambulates with min assist as patient unsteady. Activity Tolerance Endurance: 2/5 Tolerates 10-20 Minutes Exercise w/Multiple Rests Sitting Balance: 3+/5 Sits w/o UE Support for 30 Seconds or Greater Cognition Overall Cognitive Status: WFL to Adequately Complete Self Care Tasks Safely Memory: WFL Adequate to Recall Day to Day Activities Orientation: Alert & Oriented x4 Attention: Awake/Alert UE AROM Overall BUE AROM WNL: Yes Sensory Overall Sensory: Pt Perceives Pressure in Both UEs in Gross Exam UE Strength / Tone Overall Strength / Tone: WFL Able to Perform ADL Tasks Education Persons Educated: Patient/Family Barriers To Learning: None Noted Interventions: Repetition of Instructions Teaching Methods: Verbal Instruction Patient Response: Verbalized Understanding Topics: Role of OT, Goals for Therapy(D/C plans) Goal Formulation: With Patient/Family Assessment Assessment: Decreased ADL Status;Decreased Endurance;Decreased High-Level ADLs Prognosis: Good;w/Cont OT s/p Acute Discharge Goal Formulation: Pt/family Comments: Patient limited by pain and decreased endurance. AM-PAC 6 Clicks Daily Activity Inpatient Putting on and taking off regular lower body clothes?: A Little Bathing (Including washing, rinsing, drying): A Little Toileting, which includes using toilet, bedpan, or urinal: A Little Putting on and taking off regular upper body clothing: A Little Taking care of personal grooming such as brushing teeth: A Little Eating meals?: None Daily Activity Raw Score: 19 Standardized (t-scale) score: 40.22 CMS 0-100% Score: 42.8 CMS G Code Modifier: CK Plan OT Frequency: 3-5x/week OT Plan for Next Visit: Increase functional endurance, toilet transfer with clothing management, sink level ADLs, dynamic standing balance ADL Goals Patient Will Perform All ADL's: w/ Modified [place] Functional Transfer Goals Pt Will Perform All Functional Transfers: Modified Independent OT Discharge Recommendations OT Discharge Recommendations: Inpatient Setting Equipment Recommendations: Patient owns necessary equipment Additional Information: Due to patient's unsteady gait, 3 recent falls, and overall decreased endurance, patient would benefit from continued skilled therapy to address above deficits. Anticipate patient to be short stay at inpatient setting as patient is high level. Patient and spouse agreeable, patient agreeable if placement close to home. 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 Admit for management of lethargy and worsening abdominal distension, treatment of community acquired pneumonia. Received trigger point injections 06/09. Mental / Cognitive Status: Alert;Oriented;Cooperative;Follows Commands Persons Present: Occupational Therapist;Spouse Pain: Patient complains of pain(10/10 sitting EOB, 7/10 with ambulation) Pain Location: Back Pain Description: Aching Pain Interventions: Patient agrees to participate in therapy;Nursing staff notified of patient's pain level;Treatment altered to patient's pain tolerance; Patient assisted into position of comfort Comments: Increased back pain with sitting, decreases with activity. Has been a chronic issue inhibiting patient's ability to mobilize. Ambulation Assist: Independent Mobility in Community with Device Patient Owned Equipment: Single Point Cane;Roller Walker;Manual Wheelchair; Commode Home Situation: Lives with Family(, son, and [id number]) Type of Home: House Entry Stairs: 1-2 Stairs;Ramp(2 PRESLEY) In-Home Stairs: No Stairs Comments: Patient currently lives with her (works during the day), son, and [id number]. Family reporting that they provide assistance with mobility and ADLs on occasion. Son and aronreyj-kn-vhj will be moving out soon. Patient would not have 11/10 care or assistance. Reports 3 falls in the past 3 months, stating that "just lose my balance" and her legs give out. ROM: ROM ROM Position Assessed: Seated ROM Method: Active LE ROM: Bilateral;WFL STRENGTH: Strength Overall Strength: WFL;Generalized Weakness Strength Comment: Functional strength; however, fatigues quickly. Knee yvonne with fatigue -- leading to falls at home, per patient report. POSTURE/NEURO: Posture / Neurological Posture/Neuro Comments: Numbness and tingling of BLE reported by patient. BED MOBILITY/TRANSFERS: Bed Mobility/Transfers Bed Mobility: Supine to Sit: Standby Assist;Head of Bed Elevated Bed Mobility: Sit to Supine: Standby Assist;HOB Elevated Transfer Type: Sit to/from Stand Transfer: Assistance Level: To/From;Bed(contact guard assistance) Transfer: Assistive Device: Single Point Cane Transfers: Type Of Assistance: For Safety Considerations End Of Activity Status: In Bed;Nursing Notified;Instructed Patient to Request Assist with Mobility;Instructed Patient to Use Call Light(bed alarm on, call light in reach) Comments: Bed mobility and transfers limited by pain and fatigue. BALANCE: Balance Sitting Balance: Standby Assist;Static Sitting Balance Standing Balance: Static Standing Balance;Dynamic Standing Balance;1 UE support; Minimal Assist GAIT: Gait Gait Distance: 60 feet Gait: Assistance Level: Minimal Assist Gait: Assistive Device: Single Point Cane Gait: Descriptors: Antalgic;Pace: Slow;Swing-Through Gait;Variable step length Comments: Demonstrates external rotation of RLE during ambulation. Unsteady throughout, requiring consistent CGA to ensure safe mobility. Patient refuses to trial roller walker this date, even with education regarding temporary use. Activity Limited By: Complaint of Pain;Complaint of Fatigue;Weakness EDUCATION: Education Persons Educated: Patient/Family Patient Barriers To Learning: None Noted Interventions: Family Education Teaching Methods: Verbal Instruction;Demonstration Patient Response: Verbalized Understanding;Return Demonstration Topics: Plan/Goals of PT Interventions;Use of Assistive Device/Orthosis; Mobility Progression;Safety Awareness;Up with Assist Only;Importance of Increasing Activity;Ambulate With Nursing;Pain Control;Therapy Schedule Comments: Provided detailed education regarding the difference between long term vs. long-term facility. Also explained the benefits of receiving ongoing therapy at discharge to optimize patient safety and function before she returns home. Both spouse and patient verbalizes understanding and agreement with therapists. ASSESSMENT/PROGRESS: Assessment/Progress Impaired Mobility Due To: Pain;Impaired Balance;Decreased Strength;Safety Concerns;Decreased Activity Tolerance Assessment/Progress: Should Improve w/ Continued PT Comments: Mobility limited by severe LBP, BLE fatigue and weakness, and decreased endurance. Patient demos instability during ambulation and has had multiple falls at home in the past 3 months. Would benefit from stay at skilled facility to further address mobility deficits and optimize patient independence prior to discharge home. AM-PAC 6 Clicks Basic Mobility Inpatient Turning [...] Little To walk in hospital room: A Little Climbing 3-5 steps with a railing: A Lot Raw Score: 17 Standardized (T-scale) Score: 39.67 Basic Mobility CMS 0-100%: 43.83 CMS G Code Modifier for Basic Mobility: CK GOALS: Goals Goal Formulation: With Patient Time For Goal Achievement: 5 days, To, 7 days Patient Will Go Supine To/From Sit: w/ Stand By Assist(HOB flat) Patient Will Transfer Sit to Stand: Independently Patient Will Ambulate: 101-150 Feet, w/ Cane, w/ Stand By Assist Patient Will Go Up / Down Stairs: 1-2 Stairs, w/ Stand By Assist PLAN: Plan Treatment Interventions: Mobility Training;Strengthening;Balance Activities; Endurance Training Plan Frequency: 3-5 Days per Week PT Plan for Next Visit: Formal balance assessment (MILAN vs. DGI), ambulation training, exercises to alleviate back pain. P.T. mobility aide to assist with ongoing mobilization and exercise per instructions of licensed physical therapy staff. RECOMMENDATIONS: PT Discharge Recommendations PT Discharge Recommendations: Inpatient Setting;to address deficits, maximize function and improve safety Equipment Recommendations: Patient owns necessary equipment Comments: Discussed placement with patient this date, providing thorough education on differences between therapy facilities and nursing homes. Patient verbalizes understanding and reports that she would be open to placement if able to find a skilled facility that is close to home. Therapist: Azul Hardin [place] DPT [id number] Date: 06/09/2018 * Alicja Mcdowell, OT - 06/09/2018 1:05 PM CDT OCCUPATIONAL THERAPY NOTE Patient is currently unavailable for occupational therapy as patient is currently off unit for procedure. Occupational therapy will continue to follow and provide intervention as indicated. Therapist: Alicja Mcdowell, OTR/L [id number] Date: 06/09/2018 * Jose Clemons RN - 06/08/2018 1:22 PM CDT Admission skin assessment completed by: Willis Pressure Injury Present on Hospital Admission (within [...] Doc Flowsheet for additional wound details. INTERVENTIONS: Moisture damage on groin and under left breast. Interdry applied to both areas. * Joanna Musa RN - 06/08/2018 9:02 AM CDT Phone report to Jose on unit 46 regarding no procedure done, today, RT has evaluated her and reports no breathing treatment needed, will return to unit on 4Liters per N/C. Liver doctor also rounded on her today. * Sonia Sanches RN - 06/08/2018 8:21 AM CDT Bedside US per Dr. Martinez no fluid noted. Unable to perform paracentesis. * Dennis Broussard, RT - 06/08/2018 1:28 AM CDT RT Adult Assessment Note NAME:Niecy Richey :1965 AGE: 52 y.o. ADMISSION DATE: 06/07/2018 DAYS ADMITTED: LOS: 1 day RT Treatment Plan: Protocol Plan: Procedures Oxygen/Humidity: O2 to keep SpO2 > 92% Monitoring: Pulse oximetry continuous (document SpO2 results Q4h) Comment: IS by RN Additional Comments: Impressions of the patient: NAD Intervention(s)/outcome(s): IS/o2 Patient education that was completed: none Recommendations to the care team: IS by RN/o2 Vital Signs: Pulse: 86 RR: 18 PER MINUTE SpO2: 95 % O2 Device: Cannula Liter Flow: 2 lpm O2%: Breath Sounds: Clear (implies normal);Decreased Respiratory Effort: Non-Labored * Kizzy Curtis RN - 06/08/2018 12:57 AM CDT Pt requesting pain medication for back pain. MD mendoza. Received orders from Dr. Phillip for Lidocaine patch * Atul Pettit RN - 06/07/2018 9:00 PM CDT Patient arrived on unit via ambulance cart accompanied by leak detection engineer. Patient transferred to the bed with assistance. Assessment completed, refer to flowsheet for details. Orders released, reviewed, and implemented as appropriate. Oriented to surroundings, call light within reach. Plan of care reviewed. Will continue to monitor and assess. documented in this encounter H&P Notes * Sonia Quintero APRN,ANP-BC - 06/08/2018 7:40 AM CDT Pre Procedure History and Physical/Sedation Plan Procedure Date: 06/08/2018 Planned Procedure(s): US guided paracentesis Indication for exam: Ascites. Chief Complaint: Abdominal distention. Previous Anesthetic/Sedation History: Reviewed. Allergies: Dilaudid [hydromorphone]; Metformin; and Reglan [metoclopramide] Medications: Scheduled Meds: cefTRIAXone (ROCEPHIN) IVP 2 g 2 g Intravenous Q24H* doxycycline (VIBRAMYCIN) 100 mg in dextrose 5% (D5W) 500 mL IVPB 100 mg Intravenous Q12H* [MAY Hold] furosemide (LASIX) injection 40 mg 40 mg Intravenous BID(12-05) [May] insulin aspart U-100 (NOVOLOG FLEXPEN) injection PEN 18 Units 18 Units Subcutaneous TID w/ meals [May] insulin glargine (LANTUS SOLOSTAR, BASAGLAR) injection PEN 50 Units 50 Units Subcutaneous QHS [May] lactulose oral solution 20 g 30 mL Oral TID [May] lidocaine (LIDODERM) 5 % topical patch 1 patch 1 patch Topical QDAY rifAXIMin (XIFAXAN) tablet 550 mg 550 mg Oral BID Continuous Infusions: PRN and Respiratory Meds:[May] guaiFENesin Q4H PRN Vital Signs: Last Filed Vital Signs: 24 Hour Range BP: 136/68 (06/09 399) Temp: 36.6 C (97.8 F) (06/07 2318) Pulse: 89 (06/09 399) Respirations: 17 PER MINUTE (06/09 399) SpO2: 93 % (06/09 399) O2 Delivery: Nasal Cannula (06/07 2318) Height: 172.7 cm (68") (06/07 2102) BP: (136-161)/(61-68) Temp: [36.6 C (97.8 F)-36.6 C (97.9 F)] Pulse: [86-89] Respirations: [17 PER MINUTE-18 PER MINUTE] SpO2: [93 %-96 %] O2 Delivery: Nasal Cannula Sedation/Medication Plan: Lidocaine Personal history of sedation complications: Denies adverse event. Family history of sedation complications: Denies adverse event. Medications for Reversal: None Discussion/Reviews: Physician has discussed risks and alternatives of this type of sedation and above planned procedures with patient and son via phone. NPO Status: Acceptable Airway: airway assessment performed Mallampati III (soft palate, base of uvula visible) Head and Neck: no abnormalities noted Mouth: no abnormalities noted Anesthesia Classification: ASA III (A patient with a severe systemic disease that limits activity, but is not incapacitating) Status: Not Lab/Radiology/Other Diagnostic Tests Labs: 24-hour labs: Results for orders placed or performed during the hospital encounter of (from the past 24 hour(s)) CBC AND DIFF Collection Time: 06/08/18 1:00 AM Result Value Ref Range White Blood Cells 25.6 (H) 4.5 - 11.0 K/UL RBC 3.08 (L) 4.0 - 5.0 M/UL Hemoglobin 8.9 (L) 12.0 - 15.0 GM/DL Hematocrit 28.2 (L) 36 - 45 % MCV 91.5 80 - 100 FL MCH 28.9 26 - 34 PG MCHC 31.6 (L) 32.0 - 36.0 G/DL RDW 21.7 (H) 11 - 15 % Platelet Count 255 150 - 400 K/UL MPV 12.8 (H) 7 - 11 FL Nucleated RBCs 28 K/UL Segmented Neutrophils 71 41 - 77 % Bands 1 0 - 10 % Lymphocytes 11 (L) 24 - 44 % Monocytes 17 (H) 4 - 12 % ANISO PRESENT POIK PRESENT POLY PRESENT Ovalocyte PRESENT Target PRESENT Platelet Estimate NORMAL Absolute Neutrophil Count Manual 18.44 (H) 1.8 - 7.0 K/UL PROTIME INR (PT) Collection Time: 06/08/18 1:00 AM Result Value Ref Range INR 1.7 (H) 0.8 - 1.2 PTT (APTT) Collection Time: 06/08/18 1:00 AM Result Value Ref Range APTT 24.1 24.0 - 36.5 SEC COMPREHENSIVE METABOLIC PANEL Collection Time: 06/08/18 1:00 AM Result Value Ref Range Sodium 142 137 - 147 MMOL/L Potassium 4.0 3.5 - 5.1 MMOL/L Chloride 105 98 - 110 MMOL/L Glucose 124 (H) 70 - 100 MG/DL Blood Urea Nitrogen 17 7 - 25 MG/DL Creatinine 0.74 0.4 - 1.00 MG/DL Calcium 8.4 (L) 8.5 - 10.6 MG/DL Total Protein 5.9 (L) 6.0 - 8.0 G/DL Total Bilirubin 2.3 (H) 0.3 - 1.2 MG/DL Albumin 3.4 (L) 3.5 - 5.0 G/DL Alk Phosphatase 66 25 - 110 U/L AST (SGOT) 31 7 - 40 U/L CO2 31 (H) 21 - 30 MMOL/L ALT (SGPT) 15 7 - 56 U/L Anion Gap 6 3 - 12 eGFR Non >60 >60 mL/min eGFR >60 >60 mL/min LIPID PROFILE Collection Time: 06/08/18 1:00 AM Result Value Ref Range Cholesterol 126 <200 MG/DL Triglycerides 89 <150 MG/DL HDL 15 (L) >40 MG/DL LDL 70 <100 MG/DL VLDL 18 MG/DL Non HDL Cholesterol 111 MG/DL BNP (B-TYPE NATRIURETIC PEPTI) Collection Time: 06/08/18 1:00 AM Result Value Ref Range B Type Natriuretic Peptide 236.0 (H) 0 - 100 PG/ML TSH WITH FREE T4 REFLEX Collection Time: 06/08/18 1:00 AM Result Value Ref Range TSH 1.120 0.35 - 5.00 MCU/ML ALPHA FETO PROTEIN (AFP) Collection Time: 06/08/18 1:00 AM Result Value Ref Range Alpha Feto Protein 3.0 0.0 - 15.0 NG/ML INFLUENZA A/B AG (RAPID TEST) Collection Time: 06/08/18 1:00 AM Result Value Ref Range Battery Name INFLUENZA A/B ANTIGEN Specimen Description NASOPHARYNGEAL SWAB Special Requests NONE Direct Antigen NEGATIVE FOR INFLUENZA A/B Report Status FINAL 06/08/2018 RVP VIRAL PANEL PCR Collection Time: 06/08/18 1:45 AM Result Value Ref Range Specimen Source NASOPHARYNGEAL SWAB This assay uses analyte specific reagents and has not been cleared by the [place] Food and Drug Administration. The performance characteristics were determined by the [facility]. Adenovirus NOT DETECTED Coronavirus 229E [...] Pneumoniae NOT DETECTED Mycoplasma Pneumoniae NOT DETECTED LEGIONELLA ANTIGEN URINE,RAN Collection Time: 06/08/18 3:20 AM Result Value Ref Range Battery Name LEGIONELLA URINE ANTIGEN Specimen Description URINE Special Requests NONE Antigen NEGATIVE Report Status FINAL 06/08/2018 STREPTOCOCCUS PNEUMO AG, URINE Collection Time: 06/08/18 3:20 AM Result Value Ref Range Battery Name STREP PNEUMO AG, UR Specimen Description URINE Special Requests NONE Antigen NEGATIVE Report Status FINAL 06/08/2018 PTT (APTT) Collection Time: 06/08/18 6:04 AM Result Value Ref Range APTT 28.0 24.0 - 36.5 SEC I have examined the patient, and there are no significant changes in their condition, from the previous H&P performed on 06/07/18. 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) Idiopathic thrombocytopenic purpura (HCC) History of hepatitis C Pneumonia Morbid obesity (HCC) Ms Niecy Richey is a 52 yo female with PMH of ESLD 2/2 HCV and VALERIO, ITP s/p splenectomy at age 6, chronic thrombocytopenia, HTN, DM, neuropathy, who presents as a transfer to for management of lethargy and worsening abdominal distension Hepatic Encephalopathy Pneumonia - CAP - reports increased lethargy and confusion - associated cough and URI - labs showing leukocytosis - CT imaging evident for abdominal ascites and lung infiltrates - ammonia levels 120 - T bili, INR elevated, AST , ALT wnl - vitals stable PLAN - will admit to treat hepatic encephalopathy and underlying lung infection - initiate abx therapy with rocephin and doxycycline - obtain blood and resp cultures - RVP, flu, strep and legionella ags labs - will consult IR for diagnostic and therapeutic paracentesis - fluid labs ordered - duoneb tx scheduled - Hepatology consulted to assist with management - continue CAMPAIGN ADVISOR rifaximin and lactulose ESLD - secondary to HCV and VALERIO - continue CAMPAIGN ADVISOR rifaxim and lactulose - will start on IV lasix - takes bumex at home - CT abd/pelvis showing ascites without any other inflammation or pathology - will order AFP - MELD - Na on admission 14 Hx of ITP - s/p splenectomy at age 6 - follows with heme - Dr. Moran - treated with Promacta - platelet count wnl on admission - will continue to monitor - denies any recent bleeds DM II - check A1c - continue CAMPAIGN ADVISOR insulin - add sliding scale HTN - on CAMPAIGN ADVISOR lisinopril FEN - No IVF - monitor and replace electrolytes - cadiac/diabetic Diet PPx: SCDs , hold enoxaparin for procedure in the am Code Status: Full Code Dispo: Admit to medicine for management of hepatic encephalopathy in the setting community acquired pneumonia __ Primary Care Physician: Santiago Torres Verified Chief Complaint: Lethargy, cough and abdominal distension History of Present Illness:Ms Niecy Richey is a 52 yo female with PMH of ESLD 2/ 2 HCV and VALERIO, ITP s/p splenectomy at age 6, chronic thrombocytopenia, HTN, DM , neuropathy, who presents as a transfer to for management of lethargy and worsening abdominal distension Patient is transferred to for management of hepatic encephalopathy. Patient had presented to the OSH ED with complaints of increased lethargy and mental cloudiness and a recently developed cough. These symptoms have been associated with worsening abdominal distension. Patient is accompanied by her son who reports that mom encountered a fall last week and was taken to [facility] where she had imaging done of her back however did not reveal any fractures and hence was sent home with pain meds. However patient seems to have gotten increasing lethargic with recently developing more confusion and abdominal distension. CT imaging in the ED at OSH shows evidence of abdominal ascites and lung infiltrates and hence transferred to for further management Past Medical History: Diagnosis Date DM (diabetes mellitus) (HCC) GERD (gastroesophageal reflux disease) HTN (hypertension) Neuropathy Thrombocytopenia (HCC) Past Surgical History: Procedure Laterality Date HX [...] file Gets together: Not on file Attends amish service: Not on file Active member of [...] Dilaudid [hydromorphone]; Metformin; and Reglan [metoclopramide] Medications: Current Facility-Administered Medications Medication cefTRIAXone (ROCEPHIN) IVP 2 g doxycycline (VIBRAMYCIN) 100 mg in dextrose 5% (D5W) 500 mL IVPB furosemide (LASIX) injection 40 mg FUROSEMIDE 10 MG/ML IJ SOLN (Cabinet Override) guaiFENesin (ROBITUSSIN) oral solution 100 mg insulin aspart U-100 (NOVOLOG FLEXPEN) injection PEN 18 Units insulin glargine (LANTUS SOLOSTAR, BASAGLAR) injection PEN 50 Units lactulose oral solution 20 g lidocaine (LIDODERM) 5 % topical patch 1 patch rifAXIMin (XIFAXAN) tablet 550 mg Review of Systems: Constitutional: negative for fevers, chills or headaches , increased weakness and lethargy Eyes: negative for double or blurry vision Ears, nose, mouth, throat, and face: negative Respiratory: negative for shortness of breath, cough or wheezing Cardiovascular: negative for chest pain, palpitations Gastrointestinal: abdominal distension , denies nausea, diarrhea or vomiting Genitourinary:negative for polyuria/dysuria Musculoskeletal:reports back pain Neurological: negative for sensory or motor deficits Behavioral/Psych: negative for mood changes Physical Exam: Vital Signs: Last Filed In 24 Hours Vital Signs: 24 Hour Range BP: 155/64 (06/07 2318) Temp: 36.6 C (97.8 F) (06/07 2318) Pulse: 86 (06/08 122) Respirations: 18 PER MINUTE (06/08 122) SpO2: 95 % (06/08 122) O2 Delivery: Nasal Cannula (06/07 2318) Height: 172.7 cm (68") (06/07 2102) BP: (155-161)/(61-64) Temp: [36.6 C (97.8 F)-36.6 C (97.9 F)] Pulse: [86-89] Respirations: [18 PER MINUTE] SpO2: [95 %-96 %] O2 Delivery: Nasal Cannula General: Lethargic appearing , cooperative, no distress, appears stated age, jaundiced Head: Normocephalic, without obvious abnormality, atraumatic Eyes: Conjunctivae/corneas icteric in appearance . PERRL, EOMs intact. Neck: Supple, symmetrical, trachea midline, no adenopathy, thyroid: no enlargement/tenderness/nodules, no carotid bruit and no JVD Lungs: Clear to auscultation bilaterally Heart: Regular rate and rhythm, S1, S2 normal, no murmur, click rub or gallop Abdomen: Soft, distended, non tender Bowel sounds normal. No masses. No organomegaly, old surgical scars noted Extremities: Extremities normal, atraumatic, no cyanosis or edema, 2+ pitting edema bilateral LEs Peripheral pulses 2+ and symmetric, all extremities Lymph nodes: Cervical, supraclavicular and axillary nodes normal Neurologic: No sensory or motor deficits , asterixis noted on exam Lab/Radiology/Other Diagnostic Tests: 24-hour labs: Results for orders placed or performed during the hospital encounter of (from the past 24 hour(s)) CBC AND DIFF Collection Time: 06/08/18 1:00 AM Result Value Ref Range White Blood Cells 25.6 (H) 4.5 - 11.0 K/UL RBC 3.08 (L) 4.0 - 5.0 M/UL Hemoglobin 8.9 (L) 12.0 - 15.0 GM/DL Hematocrit 28.2 (L) 36 - 45 % MCV 91.5 80 - 100 FL MCH 28.9 26 - 34 PG MCHC 31.6 (L) 32.0 - 36.0 G/DL RDW 21.7 (H) 11 - 15 % Platelet Count 255 150 - 400 K/UL MPV 12.8 (H) 7 - 11 FL Nucleated RBCs 28 K/UL Segmented Neutrophils 71 41 - 77 % Bands 1 0 - 10 % Lymphocytes 11 (L) 24 - 44 % Monocytes 17 (H) 4 - 12 % ANISO PRESENT POIK PRESENT POLY PRESENT Ovalocyte PRESENT Target PRESENT Platelet Estimate NORMAL Absolute Neutrophil Count Manual 18.44 (H) 1.8 - 7.0 K/UL PROTIME INR (PT) Collection Time: 06/08/18 1:00 AM Result Value Ref Range INR 1.7 (H) 0.8 - 1.2 PTT (APTT) Collection Time: 06/08/18 1:00 AM Result Value Ref Range APTT 24.1 24.0 - 36.5 SEC COMPREHENSIVE METABOLIC PANEL Collection Time: 06/08/18 1:00 AM Result Value Ref Range Sodium 142 137 - 147 MMOL/L Potassium 4.0 3.5 - 5.1 MMOL/L Chloride 105 98 - 110 MMOL/L Glucose 124 (H) 70 - 100 MG/DL Blood Urea Nitrogen 17 7 - 25 MG/DL Creatinine 0.74 0.4 - 1.00 MG/DL Calcium 8.4 (L) 8.5 - 10.6 MG/DL Total Protein 5.9 (L) 6.0 - 8.0 G/DL Total Bilirubin 2.3 (H) 0.3 - 1.2 MG/DL Albumin 3.4 (L) 3.5 - 5.0 G/DL Alk Phosphatase 66 25 - 110 U/L AST (SGOT) 31 7 - 40 U/L CO2 31 (H) 21 - 30 MMOL/L ALT (SGPT) 15 7 - 56 U/L Anion Gap 6 3 - 12 eGFR Non >60 >60 mL/min eGFR >60 >60 mL/min LIPID PROFILE Collection Time: 06/08/18 1:00 AM Result Value Ref Range Cholesterol 126 <200 MG/DL Triglycerides 89 <150 MG/DL HDL 15 (L) >40 MG/DL LDL 70 <100 MG/DL VLDL 18 MG/DL Non HDL Cholesterol 111 MG/DL BNP (B-TYPE NATRIURETIC PEPTI) Collection Time: 06/08/18 1:00 AM Result Value Ref Range B Type Natriuretic Peptide 236.0 (H) 0 - 100 PG/ML TSH WITH FREE T4 REFLEX Collection Time: 06/08/18 1:00 AM Result Value Ref Range TSH 1.120 0.35 - 5.00 MCU/ML ALPHA FETO PROTEIN (AFP) Collection Time: 06/08/18 1:00 AM Result Value Ref Range Alpha Feto Protein 3.0 0.0 - 15.0 NG/ML INFLUENZA A/B AG (RAPID TEST) Collection Time: 06/08/18 1:00 AM Result Value Ref Range Battery Name INFLUENZA A/B ANTIGEN Specimen Description NASOPHARYNGEAL SWAB Special Requests NONE Direct Antigen NEGATIVE FOR INFLUENZA A/B Report Status FINAL 06/08/2018 Pertinent radiology reviewed. Amira Phillip MD Internal Medicine [id number] documented in this encounter Consult Notes * Carmela Pettit MD - 06/11/2018 11:43 AM CDT Associated Order(s): CONSULT REHABILITATION MEDICINE PHYSICIAN Physical Medicine & Rehabilitation Consult Note Date of Service: 06/11/2018 Niecy Richey is a 52 y.o. female. : 1965 Primary Insurance: [facility] Secondary Insurance: Tertiary Insurance: Financial Class: [facility] Date of Admission: 06/07/2018 Referring Physician: Darlene Díaz MD Reason for Consult: evaluate for Post-Acute Rehab/Placement Precautions: Fall, Weight bearing Precautions: NO WB precautions Active Problems Principal Problem: Hepatic encephalopathy (HCC) Active Problems: Thrombocytopenia (HCC) Type 2 diabetes mellitus with complication (HCC) Idiopathic thrombocytopenic purpura (HCC) History of hepatitis C Pneumonia Morbid obesity (HCC) CAP (community acquired pneumonia) Acute hypoxemic respiratory failure (HCC) Chronic respiratory failure with hypoxia, on home oxygen therapy (HCC) End stage liver disease (HCC) VALERIO (nonalcoholic steatohepatitis) S/P splenectomy Pain Gait abnormality Impaired Mobility and ADLs Impaired transfers Assessment & Plan Niecy Richey is a 52 y.o. female admitted to [facility] on 06/07/2018 with the following issues: encephalopathy Impairments: pain, poor activity tolerance, sensory loss and weakness Activity Limitations: grooming, dressing - lower, transfers, ambulation and stairs Participation Restrictions: unable to return home safely Post-acute care rehabilitation needs: -Patient meets criteria with medical complexity and therapeutic goals for admission to acute inpatient rehab facility. However, patient would prefer to discharge home with outpatient therapy. Discussed with patient that she will need to do as much therapy while in the hospital to optimize home care. If at time of discharge patient is not safe to go home, would look for placement at rehabilitation facilities. -At this moment, patient will likely need ongoing PT/OT therapy services. -Given the patient's high medical complexity and co morbidities including, but not limited to hepatic encephalopathy, liver decompensation, diabetes and in conjunction with significant functional goals with PT and OT, the patient will require daily physician oversight and intensive rehab therapies at an acute inpatient rehabilitation after acute inpatient hospitalization. -Will continue to follow as patient becomes medically stable and progresses with therapy. Other recommendations (bowel, bladder, skin, pain, etc): Impaired gait/mobility: CAMPAIGN ADVISOR pt was independent at community level without assistive device Currently requiring Min A with SPC for 60' Will benefit from continued work with PT to address mobility deficits Impaired ADL: CAMPAIGN ADVISOR pt was independent Currently requiring Min A for EOB transfers Will benefit from ongoing OT to address functional deficits Bowel: Recommend bowel regimen with Senokot 2 tabs QHS and Colace 100-200mg daily while on opiate pain medications +/- Miralax daily prn. Thank you for this consultation. Please call our consult pager with questions or concerns. Carmela Pettit MD Rehab Consult Pager: [phone] History of Present Illness Chief Complaint: weakness Hospital Course: Niecy Richey is a 52-year-old female past medical history of diabetes, hepatitis C, end-stage liver disease, hypertension, VALERIO, and neuropathy admitted for hepatic encephalopathy and community-acquired pneumonia acute respiratory failure. Patient presented to outside facility with worsening lethargy and altered mental status, associated with a productive cough and worsening abdominal distention. Patient currently treated with antibiotics. Hematology consulted. Patient also complained of lower back pain. Previously seen by outpatient rehab physician but during the admission was consulted by anesthesia pain who provided trigger point injections 2018. PT and OT consulted to address functional and mobility deficits, rehab is now consulted for post-acute rehab/placement recommendations. Past Medical History: Diagnosis Date Chronic respiratory failure with hypoxia, on home oxygen therapy (HCC) 2L NC w/ exertion DM (diabetes mellitus) (HCC) End stage liver disease (HCC) 06/10/2018 GERD (gastroesophageal reflux disease) History of hepatitis C 04/18/2017 tx w/ ribavirin and IFN HTN (hypertension) VALERIO (nonalcoholic steatohepatitis) 06/10/2018 Neuropathy S/P splenectomy 06/10/2018 [...] file Social History Narrative Not on file No family history on file. Scheduled Meds: acetaminophen (TYLENOL) tablet 500 mg 500 mg Oral Q8H amitriptyline/gabapentin/emu oil(#) 4/4/10 % topical cream Topical Q8H benzonatate (TESSALON PERLES) capsule 100 mg 100 mg Oral QHS bumetanide (BUMEX) tablet 1 mg 1 mg Oral QDAY cefTRIAXone (ROCEPHIN) IVP 2 g 2 g Intravenous Q24H* diclofenac (VOLTAREN) 1 % topical gel 2 g 2 g Topical QID doxycycline (VIBRAMYCIN) tablet 100 mg 100 mg Oral BID eltrombopag(+) (PROMACTA) tablet 50 mg 50 mg Oral QDAY enoxaparin (LOVENOX) syringe 40 mg 40 mg Subcutaneous BID fluoxetine (PROZAC) capsule 20 mg 20 mg Oral QDAY insulin aspart U-100 (NOVOLOG FLEXPEN) injection PEN 0-6 Units 0-6 Units Subcutaneous ACHS (22) insulin glargine (LANTUS SOLOSTAR, BASAGLAR) injection PEN 40 Units 40 Units Subcutaneous QHS lactulose oral solution 20 g 30 mL Oral TID lidocaine (LIDODERM) 5 % topical patch 1 patch 1 patch Topical QDAY loratadine (CLARITIN) tablet 10 mg 10 mg Oral QDAY rifAXIMin (XIFAXAN) tablet 550 mg 550 mg Oral BID Continuous Infusions: PRN and Respiratory Meds:benzocaine/menthol Q2H PRN, guaiFENesin Q4H PRN, nystatin BID PRN, tiZANidine Q8H PRN Allergies Allergen Reactions Dilaudid [Hydromorphone] UNKNOWN Pt reports dilaudid caused her to code Metformin UNKNOWN Reglan [Metoclopramide] UNKNOWN Prior Level of Function Self-Care/ADLs: Independent Mobility: independent at community level w/ assistive device Support: Patient currently lives with and son who can provide some assistance Home Environment: Home Situation: Lives with Family (, son, and [id number]) (2018 3:00 PM) Patient Owned Equipment: Single Point Cane;Roller Walker;Manual Wheelchair; Commode (06/09/2018 3:00 PM) Type of Home: House (06/09/2018 4:00 PM) Entry Stairs: 1-2 Stairs;Ramp (2 PRESLEY) (06/09/2018 3:00 PM) In-Home Stairs: No Stairs (06/09/2018 3:00 PM) Comments: Patient currently lives with her (works during the day), son, and [id number]. Family reporting that they provide assistance with mobility and ADLs on occasion. Son and [id number] will be moving out soon. Patient would not have 11/10 care or assistance. (06/09/2018 3:00 PM) Bathroom Equipment: Shower Chair;Grab Bars in Shower;Hand-Held Shower;Commode ( 4:00 PM) Current Level Of Function: PT Gait:Gait Distance: 60 feet Gait: Assistance Level: Minimal Assist Gait: Assistive Device: Single Point Cane Bed Mobility/Transfers Bed Mobility: Supine to Sit: Standby Assist, Head of Bed Elevated Bed Mobility: Sit to Supine: Standby Assist, HOB Elevated Transfer Type: Sit to/from Stand Transfer: Assistance Level: To/From, Bed(contact guard assistance) Transfer: Assistive Device: Single Point Cane Transfers: Type Of Assistance: For Safety Considerations End Of Activity Status: In Bed, Nursing Notified, Instructed Patient to Request Assist with Mobility, Instructed Patient to Use Call Light(bed alarm on, call light in reach) Comments: Bed mobility and transfers limited by pain and fatigue. OT ADL's Where Assessed: Edge of Bed Eating Assist: Independent Eating Deficits: No Assist Needed LE Dressing Assist: Stand By Assist LE Dressing Deficits: Supervision/Safety, Don/Doff R Sock, Don/Doff L Sock Functional Transfer Assist: Minimal Assist Functional Transfer Deficits: Supervision/Safety Comment: HOB elevated, patient independent in bed mobility, sits EOB independently. Patient demonstrates ability to doff/don socks with setup. Patient stands with CGA/SBA, ambulates with min assist as patient unsteady. DYE TUB TENDER COGNITIVE EVALUATION SUMMARY PRAGMATICS: BEHAVIOR: AUDITORY COMPREHENSION: ORIENTATION: AUDITORY ATTENTION/WORKING MEMORY: AUDITORY MEMORY/SUSTAINED ATTENTION: NEW LEARNING: SEQUENCING/ORGANIZATION: PROBLEM SOLVING: REASONING: MATH/MONEY SKILLS: VISUAL PERCEPTUAL: SWALLOW EVALUATION SUMMARY Review of Systems A 14 point review of systems was negative except for: Constitutional: positive for fatigue Gastrointestinal: positive for change in bowel habits Neurological: positive for paresthesia and weakness Physical Exam BP: 137/50 (06/12 819) Temp: 36.9 C (98.5 F) (06/12 819) Pulse: 78 (06/12 819) Respirations: 20 PER MINUTE (06/12 819) SpO2: 92 % (06/12 819) O2 Delivery: None (Room Air) (06/12 819) Body mass index is 43.04 kg/m. Gen: awake, alert, NAD HEENT: NCAT, EOMI, MMM Neck: Supple and symmetric Heart: Extremities are well perfused Lungs: respirations even and non-labored Abdomen: Soft, non-distended Psych: pleasant mood/appropriate affect Ext: No c/c/e MS: 5 out of 5 strength bilateral upper extremities, bilateral lower extremities. Patient able to move all extremities antigravity without difficulty. No noted asterixis. Neuro: Cranial Nerves Cranial Nerves 2-12 are grossly intact DTR's no hyperreflexia Babinski Downgoing Bilaterally Upper Extremity Tone Normal Lower Extremity Tone Normal Upper Extremity Sensation Intact to light touch bilaterally Lower Extremity Sensation decreased to light touch bilaterally distally Clonus Negative Bilaterally Memory/Concentration alert and oriented person place time Intake/Output Summary (Last 24 hours) at 06/11/2018 1145 Last data filed at 06/11/2018 0906 Gross per 24 hour Intake 892 ml Output 500 ml Net 392 ml Hematology: Lab Results Component Value Date HGB 8.5 06/11/2018 HCT 26.8 06/11/2018 PLTCT 155 06/11/2018 WBC 18.6 06/11/2018 NEUT 72 12/24/2016 ANC 12.28 06/11/2018 ANC 11.00 12/24/2016 LYMPH 15 06/11/2018 ALC 2.80 12/24/2016 SIMEON 8 12/24/2016 AMC 1.20 12/24/2016 ABC 0.10 12/24/2016 BASOPHILS 3 10/21/2017 MCV 90.6 06/11/2018 MCHC 31.7 06/11/2018 MPV 14.4 06/11/2018 RDW 23.1 06/11/2018 , Coagulation: Lab Results Component Value Date PTT 30.3 06/11/2018 INR 1.7 06/08/2018 and General Chemistry: Lab Results Component Value Date NA 140 06/11/2018 K 4.3 06/11/2018 CL 101 06/11/2018 GAP 3 06/11/2018 BUN 23 06/11/2018 CR 0.79 06/11/2018 GLU 155 06/11/2018 GLU 116 06/08/2018 CA 8.6 06/11/2018 ALBUMIN 3.1 06/11/2018 LACTIC 2.3 09/11/2016 OBSCA 1.09 08/29/2016 MG 1.7 11/17/2016 TOTBILI 1.4 06/11/2018 Radiology: Reviewed Carmela Pettit MD Associated attestation - Phil Gracia MD - 06/12/2018 8:53 AM CDT Rehabilitation Medicine Attending Physician Attestation: I personally performed jarrell portions of the history and exam. I discussed the case with the resident and agree with the resident's documentation of history, physical assessment and treatment plan unless otherwise noted. Thank you for allowing us to participate in the care of this patient. Phil Gracia MD 06/12/2018 8:53 AM Attending physician * Purvi Parker RD - 06/09/2018 1:00 PM CDT Associated Order(s): CONSULT DIETITIAN CLINICAL NUTRITION Clinical Nutrition Assessment/Education Summary NAME:Niecy Richey :1965 AGE: 52 y.o. ADMISSION DATE: 06/07/2018 DAYS ADMITTED: LOS: 2 days Nutrition Assessment of Patient: BMI Categories Adult: Obesity Class III: 40 and over(43.0) Malnutrition Assessment: Does not meet criteria Current Oral Intake: Adequate Estimated Calorie Needs: 9381-1029(20-25 kcal/kg desired wt of 74.2 kg (for wt loss)) Estimated Protein Needs: 90-110(1.2-1.5 g/kg desired wt) Oral Diet Order: Cardiac Comments: 52 yo F with PMH of HCV/VALERIO cirrhosis, DM2, ITP s/p splenectomy at age 6, HTN admit on 06/07 with HE and pneumonia. RD consulted for nutrition education and assessment. Pt reports low appetite the first day of admit but states her appetite is back to baseline now. She is interested in learning about lower sodium, healthier eating to help achieve healthier weight in case she needs a liver transplant in the future. RD encouraged healthy balanced eating and making lower sodium food choices to help prevent ascites/edema from developing. Provided and reviewed nutrition information to promote healthy wt loss and 2 g sodium diet. Encouraged pt to set goal of achieving a weight of ~260 lbs as this would be a BMI of 40 (additional weight loss would be encouraged past that but first shorter term goal to achieve weight of 260 lbs). Discussed plate method. Encouraged pt to make half of plate from fruit and vegetables. Encouraged lean meats and whole grains. Encouraged lower sodium, less processed foods. Encouraged pt to avoid eating empty calorie foods (especially avoiding sugar sweetened drinks). Discussed healthy carbs and portion management. Pt verbalized understanding, expect fair compliance. I encouraged her to request to meet with me in transplant/hepatology clinic for follow up if needed. Recommendation: Continue cardiac diet. Continue to encourage healthy diet and lifestyle changes. Purvi Parker MS, RD, LD, [facility] *[phone] * Vicente Elise MD - 06/08/2018 7:17 AM CDT Associated Order(s): CONSULT HEPATOLOGY PHYSICIAN Hepatology Consult Note Patient Name:Niecy Richey Admission Date: 06/07/2018 8:55 PM Principal Problem: Hepatic encephalopathy (HCC) Active Problems: Thrombocytopenia (HCC) Type 2 diabetes mellitus with complication (HCC) Idiopathic thrombocytopenic purpura (HCC) History of hepatitis C Pneumonia Morbid obesity (HCC) History of Present Illness/Subjective: Niecy Richey is a 52 y.o. female with history of end-stage liver disease secondary to HCV and Valerio who follows with Gilmer Montez decompensated with history of hepatic encephalopathy and ascites was now transferred to from outside hospital for concerns of hepatic encephalopathy and pneumonia. The patient presented outside facility with complaints of worsening lethargy and mental cloudiness for the past few days. This is also associated with productive cough and worsening abdominal distention. The son mentioned that the patient had a fall last week for which she will presented to [facility] and CT scan at that time did not reveal any fractures. During this admission CT of the abdomen and chest revealed bilateral lung infiltrates and ascites. She was transferred here for the management of hepatic encephalopathy and pneumonia. I have seen the patient in the interventional radiology recovery suite. The patient did not have any ascitic fluid for paracentesis. The patient mentioned that she has been dealing with this productive cough with green phlegm for about a week now. She was recently started on lactulose and a month ago for her hepatic encephalopathy along with her Xifaxan. She reports compliance with her medications. She denies any melena, chest pain, shortness of breath, hematemesis, fevers, chills. The patient understands that she will need to lose weight But she is battling with her low back to do some actiivity to help with weight loss. Assessment/ Plan: 52-year-old history of end-stage liver disease secondary to HCV and Valerio decompensated with history of ascites and hepatic encephalopathy now admitted for worsening lethargy and confusion and possible community-acquired pneumonia. Decompensated liver cirrhosis-secondary to HCV and Valerio MELD-Na score: 16 at 06/08/2018 1:00 AM MELD score: 16 at 06/08/2018 1:00 AM Calculated from: Serum Creatinine: 0.74 MG/DL (Rounded to 1 MG/DL) at 06/08/2018 1:00 AM Serum Sodium: 142 MMOL/L (Rounded to 137 MMOL/L) at 06/08/2018 1:00 AM Total Bilirubin: 2.3 MG/DL at 06/08/2018 1:00 AM INR(ratio): 1.7 at 06/08/2018 1:00 AM Age: 52 years Decompensation secondary to ascites and hepatic encephalopathy. During the last visit in May 2017 she was not OLT candidate because of her BMI greater than 40 and her meld score being too low at 11. HCV treated in 2012 with interferon and ribavirin and achieved SVR. Ascites: Last paracentesis in August 2016 with removal of 1750 cc of ascitic fluid. No SBP. She is on Bumex 1 mg twice daily at the home. No ascitic fluid for paracentesis as per interventional radiology. Hepatic encephalopathy: She was on lactulose and Xifaxan at home. The patient does not seem to have advanced hepatic encephalopathy. She is slightly slow to respond but no asterixis. Esophageal varices: No EGD available for screening for esophageal varices. HCC screening: Alpha-fetoprotein normal at 3 on 06/08/2018. Ultrasound in May 2017 with stable heterogeneous mildly enlarged liver without discrete hepatic mass. Enlarged peripancreatic lymph node. Community-acquired pneumonia: Bilateral lung infiltrate seen on the CT scan done at the outside facility. Leukocytosis present. On Rocephin and doxycycline. ITP: S/P splenectomy when she was 6. On promacta Recommendations: -Recommend ultrasound of the liver. -Continue antibiotic therapy for the treatment of community-acquired pneumonia. -Continue lactulose and titrate to 3 bowel movements a day. Continue Xifaxan. -She is due for a screening EGD. This can be scheduled outpatient. -Discussed importance of weight loss which will help her considered for a liver transplant evaluation if needed in the future. -Agree with consulting pain management for chronic low back pain , because her platelets are normal at this time and it would be the best time if any procedure will need to be done. -Recommend less than 2 g sodium diet. Recommend protein supplementation with meals. Patient seen and discussed with Dr. Glass. Vicente Elise MD GI/Hepatology Fellow [phone] PMH: Past Medical History: Diagnosis Date DM (diabetes mellitus) (HCC) GERD (gastroesophageal reflux disease) HTN (hypertension) Neuropathy Thrombocytopenia (HCC) Current medications: No current facility-administered medications on file prior to encounter. Current Outpatient Medications on File Prior to Encounter Medication Sig Dispense Refill acetaminophen (TYLENOL) 500 mg tablet Take 500 mg by mouth every 6 hours as needed for Pain. Max of 4,000 mg of acetaminophen in 24 hours. amitriptyline (ELAVIL) 25 mg tablet Take 25 mg by mouth at bedtime daily. bumetanide (BUMEX) 1 mg tablet Take 1 mg by mouth twice daily. eltrombopag (PROMACTA) 50 mg tablet Take two tablets daily on an empty stomach (at least 1 hour before or 2 hours after food). Separate antacids by at least 4 hours. 60 tablet 3 ergocalciferol (VITAMIN D-2) 50,000 unit capsule Take 2 capsules by mouth every 7 days. 24 capsule 0 gabapentin (NEURONTIN) 300 mg capsule Take 300 mg by mouth three times daily. insulin aspart (NOVOLOG FLEXPEN) 100 unit/mL injection PEN Inject 18 Units under the skin three times daily with meals. Indications: Sliding Scale insulin glargine (LANTUS SOLOSTAR) 100 unit/mL (3 mL) injection PEN Inject 50 Units under the skin at bedtime daily. (Patient taking differently: Inject 50 Units under the skin twice daily.) 3 Package 3 lisinopril (PRINIVIL; ZESTRIL) 10 mg tablet Take 1 tablet by mouth daily. 90 tablet 3 loratadine 10 mg cap Take 1 capsule by mouth daily. oxyCODONE (ROXICODONE, OXY-IR) 5 mg tablet Take 1 Tab by mouth every 4 hours as needed for Pain potassium chloride SR (K-DUR) 20 mEq tablet Take 1 tablet by mouth daily. Take with a meal and a full glass of water. 7 tablet 0 rifAXIMin (XIFAXAN) 550 mg tablet Take 1 Tab by mouth twice daily. Indications: HEPATIC ENCEPHALOPATHY 60 Tab 11 PSH: Past Surgical History: Procedure Laterality Date HX HYSTERECTOMY SPLENECTOMY SH: Social History Socioeconomic History Marital status: Spouse [...] file Social History Narrative Not on file FH: Noncontributory. Review of Systems: Constitutional: No fevers, chills, weight loss Respiratory: +ve dyspnea, cough Gastrointestinal: No abdominal pain, blood in stool Musculoskeltal: No joint inflammation, new deformity Integumentary: No rashes, exudate Neurologic: No cognitive change, focal weakness Hematologic: No for easy bleeding or bruising Please see HPI for additional pertinent documentation Physical Exam: Vitals: 06/07/18 2103 06/07/18 2319 06/08/18 0123 06/08/18 0400 BP: 161/61 155/64 136/68 Pulse: 89 88 86 89 Temp: 36.6 C (97.9 F) 36.6 C (97.8 F) SpO2: 96% 95% 95% 93% Weight: 128.4 kg (283 lb 1.1 oz) Height: 172.7 cm (68") Constitutional- Vitals above, no acute distress. Head - Normocephalic, atraumatic. Respiratory - Symmetric chest rise, no increased work of breathing. Cardiovascular - Peripheral pulses intact, no pedal edema. Gastrointestinal- Non-TTP. No hepatospenomegaly. Skin - No exposed rash, lesion. Neurologic - No CN deficit, normal fluid speech, no asterixis, alert oriented x4 Psychiatric -slow responses but she is alert and oriented x4. She answers appropriately to the questions asked. Labs/Imaging: Pertient labs/imaging were reviewed on initiation of progress note. Associated attestation - Tasha Glass MD - 06/08/2018 6:07 PM CDT ATTESTATION I personally performed the jarrell portions of the E/M visit, discussed case with resident and concur with resident documentation of history, physical exam, assessment, and treatment plan unless otherwise noted. Staff name: Tasha Glass MD Date: 06/08/2018 documented in this encounter Miscellaneous Notes * Case Mgmt DC Plan - Jose Haq, [facility] - 06/15/2018 11:01 AM CDT Case Management Progress NoteNAME:Niecy Richey :1965 AGE: 52 y.o. ADMISSION DATE: 06/07/2018 DAYS ADMITTED: LOS: 8 days Todays Date: 06/15/2018 Plan Pt to d/c to [facility] in [place], [place] today at around 1200 via family transport. Interventions ? Support I met with the pt at bedside. She was agreeable to d/c today to [facility]. Her is on his way to pick her up. ? Info or Referral ? Discharge Planning [facility] Fax Comment: Pt clinically accepted. I delivered a transfer packet. D/c orders were faxed. I spoke with Cristina in admissions. Pt is accepted. I updated the RN on the d/c time. I asked the MD to complete an MD to MD betancourt/ Dr. Subramanian [phone]. 1 [facility] [address] ? Medication Needs ? Financial ? Legal ? Other Disposition ? Expected Discharge Date Expected Discharge Date: 06/13/18 ? Transportation Does the patient need discharge transport arranged?: No Transportation Name, Phone and Availability #1: Kushal Posadas ([phone]) Does the patient use Medicaid Transportation?: No ? Next Level of Care (Acute Psych discharges only) ? Discharge Disposition Durable Medical Equipment No service has been selected for the patient. Destination - Selection Complete Service Provider Request Status Selected Services Address Phone Number Fax Number [facility] 1 [facility] [address] Home Care - Selection Complete Service Provider Request Status Selected Services Address Phone Number Fax Number [facility] Selected Home Health Services [address] [place] [address] [place] [address] [phone] [facility] Dialysis/Infusion No service has been selected for the patient. CHERI Mueller, [facility] Pager: [phone] Office: [phone] * Case Mgmt DC Plan - Jose Haq LSCSW - 06/14/2018 9:04 AM CDT Case Management Progress NoteNAME:Niecy Richey :1965 AGE: 52 y.o. ADMISSION DATE: 06/07/2018 DAYS ADMITTED: LOS: 7 days Todays Date: 06/14/2018 Plan Pt to d/c to [facility] in [place], [place] once prior auth is received from her insurance. Interventions ? Support I met with the pt at bedside. She [facility]. She stated taht she is in too much pain to transport. She stated that her will come and pick her up tomorrow if she is stable to d/c. ? Info or Referral ? Discharge Planning [facility] Fax Comment: Pt clinically accepted. I spoke with admissions. They are still waiting on the pt's BCBS to make a decision on the referral. I later spoke with admissions. Prior auth received. I updated the MD. Pt is scheduled to have an anesthesia pain consult on 06/14. D/c delayed to 06/15.I updatd June with admissions. They are able to admit the pt tomorrow. [facility] [address] ? Medication Needs ? Financial ? Legal ? Other Disposition ? Expected Discharge Date Expected Discharge Date: 06/13/18 ? Transportation Does the patient need discharge transport arranged?: No Transportation Name, Phone and Availability #1: Son, Will ([phone]) Does the patient use Medicaid Transportation?: No ? Next Level of Care (Acute Psych discharges only) ? Discharge Disposition Durable Medical Equipment No service has been selected for the patient. [facility] Destination No service has been selected for the patient. Home Care - Selection Complete Service Provider Request Status Selected Services Address Phone Number Fax Number [facility] Selected Home Health Services [address] [place] [address] [phone] Dialysis/Infusion No service has been selected for the patient. 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 Appointment Date/Time: 07/21/18 @ 1020AM Appointment Provider: Melida Scherer APRN Foster Parent Follow up: Per chart review- Discussion about further evaluation of this enlarging lymph node between the pancreas and the liver can be done during her clinic visit. Labs:(CBC,INR,CMP) to be drawn at HFU-clinic to manage. Due Date: 07/21/18 Endoscopy Appointment : Pt Due for Screening EGD. This will be arranged/ ordered by clinic at follow up in July Education addressed: Diet Addressed by Hepatology physical science technician during this admit. ~Will be available if patient needs anything from a hepatology standpoint while in the hospital Tuesday through Tuesday 7am-5pm ~Discharge information to be sent to the hepatology provider & team that will follow with patient in the outpatient clinic. Azucena Vernon RN-BSN Inpatient Hepatology Nurse Coordinator Pgr: [phone] Office- [phone] * Case Mgmt DC Plan - Jose Haq LSCSW - 06/13/2018 9:05 AM CDT Case Management Progress NoteNAME:Niecy Richey :1965 AGE: 52 y.o. ADMISSION DATE: 06/07/2018 DAYS ADMITTED: LOS: 6 days Todays Date: 06/13/2018 Plan Pt to d/c to [facility] in [place], [place] once prior auth is received from her insurance. Interventions ? Support I met with the pt at bedside. She continues to be agreeable to seek IRF setting for post-acute rehab, however, she asked me several times if it is a needed service. She voiced preference to d/c to home with [facility] as she feels that she would be more comfortable at home and that she would like to complete outpatient PT and OT at a nearby hospital in [place], [place]. The pt was eventually agreeable to continue to seek her admission into [facility]. ? Info or Referral ? Discharge Planning [facility] Fax Comment: Pt clinically accepted. The facility is seeking prior auth. I left a VM with admissions requesting a return phone call. [address] [facility] [address] ? Medication Needs ? Financial ? Legal ? Other Disposition ? Expected Discharge Date Expected Discharge Date: 06/13/18 ? Transportation Does the patient need discharge transport arranged?: No Transportation Name, Phone and Availability #1: Son, Kushal ([phone]) Does the patient use Medicaid Transportation?: No ? Next Level of Care (Acute Psych discharges only) ? Discharge Disposition Durable Medical Equipment No service has been selected for the patient. Destination No service has been selected for the patient. Home Care - Selection Complete Service Provider Request Status Selected Services Address Phone Number Fax Number [facility] Selected Home Health Services [address] [place] [address] [place] [phone] Dialysis/Infusion No service has been selected for the patient. CHERI Mueller, [employer] Pager: [phone] Office: [phone] * Case Mgmt DC Plan - Jose Haq LSCSW - 06/12/2018 10:06 AM CDT Case Management Progress NoteNAME:Niecy Richey :1965 AGE: 52 y.o. ADMISSION DATE: 06/07/2018 DAYS ADMITTED: LOS: 5 days Todays Date: 06/12/2018 Plan Pt to d/c to [facility] in [place], [place] once prior auth is received from her insurance. Interventions ? Support I met with the pt at bedside to discuss disposition needs. The pt was unsure if she wanted to enter a post-acute rehab setting from this setting. She was agreeable to explore this as an option and selected [facility] as her facility of choice. ? Info or Referral ? Discharge Planning [facility] Fax Comment: referral sent via [facility]2. I spoke with admissions. They asked that I fax the referral to an alternative fax, (faxed via [facility]). I alter spoke with admissions. Pt accepted. They will seek prior auth. [address] [facility] [address] ? Medication Needs ? Financial ? Legal ? Other Disposition ? Expected Discharge Date Expected Discharge Date: 06/12/18 ? Transportation Does the patient need discharge transport arranged?: No Transportation Name, Phone and Availability #1: Son, Will ([phone]) Does the patient use Medicaid Transportation?: No ? Next Level of Care (Acute Psych discharges only) ? Discharge Disposition Durable Medical Equipment No service has been selected for the patient. Destination No service has been selected for the patient. Home Care - Selection Complete Service Provider Request Status Selected Services Address Phone Number Fax Number [facility] Selected Home Health Services [address] [place] [address] [place] [phone] Dialysis/Infusion No service has been selected for the patient. CHERI Mueller, [employer]OU[employer] F[employer]ER Pager: [phone] Office: [phone] * Care Plan - Charmaine Guillen RN - 06/11/2018 8:50 PM CDT Problem: Self-Care Deficit Goal: Maximize ADL functioning Outcome: Goal Ongoing ongoing * Care Coordination-Inpatient - Cassy Jimenez RN - 06/09/2018 2:23 PM CDT DISCHARGE HEPATOLOGY CARE COORDINATION Patient: Niecy Richey Admit/Discharge Dates: 06/07/18 - TBD Rounding Physician: Dr. 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 Follow-ups: Appointment Date/Time: 06/21/18 @ 1:00 Appointment Provider: Melida Scherer APRN Labs: MELD (CBC, CMP, INR) labs Due Date: At HFU on 06/21/18 Endoscopy Appointment: Due to screening EGD to be managed at clinic visit. Education: Gisel Briones met with patient regarding diet/nutrition. ~Will be available if patient needs anything from a hepatology standpoint while in the hospital Tuesday through Tuesday 7am-5pm ~Discharge information to be sent to the Hepatology provider & team that will follow with patientin the outpatient clinic. VERÓNICA Sherman, RN Inpatient Hepatology Glass Checker Office: [phone] Pager: [phone] * Med Student Progress Note - Darlene Díaz MD - 06/09/2018 7:58 AM CDT Progress Note Niecy Richey Admission Date: 06/07/2018 Principal Problem: Hepatic encephalopathy (HCC) Active Problems: Thrombocytopenia (HCC) Type 2 diabetes mellitus with complication (HCC) Idiopathic thrombocytopenic purpura (HCC) History of hepatitis C Pneumonia Morbid obesity (HCC) CAP (community acquired pneumonia) Acute hypoxemic respiratory failure (HCC) ASSESSMENT/PLAN: Ms Niecy Richey is a 52 yo female with PMH of 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 Her paracentesis was dry. She is being treated for community acquired pneumonia with rocephin and doxycycline. Anesthesia pain completed trigger point injections in back and physical therapy have been placed for evaluation of lower back pain which is inhibiting her ability to recover. Blood sugars have been low due to loss of appetite, so lowering insulin dosage. Hepatic Encephalopathy Pneumonia - CAP -Reports increased lethargy and confusion after having fall 1 week prior to admission and receiving oxycodone PRN. Also, recent onset of cough and URI with leukocytosis. Reported prednisone last week due to fall which may be contributing to leukocytosis. CT showing abdominal ascites and lung infiltrates , so antibiotics started for SBP ppx and CAP. Negative infectious work-up of RVP , flu, procalcitonin, strep and legionella ags labs. Blood and sputum cultures currently negative. - ammonia levels 120 - T bili & INR elevated. AST&ALT wnl PLAN > rocephin and doxycycline > duoneb tx > Rifaximin and lactulose > Hepatology consult >>2g Na restriction, liver ultrasound, cont abx, outpt EGD ESLD - Secondary to HCV and VALERIO. CT A-P: showing ascites. AFP nml. - continue CAMPAIGN ADVISOR rifaxim and lactulose. - Continue IV lasix. - MELD - Na on admission 16 >CAMPAIGN ADVISOR rifaximin and Lactulose. D/c CAMPAIGN ADVISOR bumex. Start IV lasix 40mg BID Hx of ITP - s/p splenectomy at age 6 - follows heme - Dr. Moran - platelet count wnl on admission, denies any recent bleeds > Promacta Lower back pain - Prior history of lower back pain with recent falls and weakness. Had MRI of lumbar spine at [facility] in [place] who have been contacted to cloud images. Family is in favor of discharge to rehab facility to improve strength prior to return home. > voltaren gel and emu oil cream. >Anesthesia pain consult for consideration of lower back epidural steroid injection >PT/OT >d/c to SNF/rehab DM II - A1c 5.8 > decrease CAMPAIGN ADVISOR insulin( Lantus 50u qHS, aspart 18u TID) to 40u Lantus, 6u aspart TID due to low blood glucose. > sliding scale > adding diet supplement for low blood sugars due to increased intake. HTN > CAMPAIGN ADVISOR lisinopril FEN - No IVF - monitor and replace electrolytes - cadiac/diabetic Diet PPx: SCDs , hold enoxaparin for possible epidural steroid injection. Code Status: Full Code Disposition: Med-K Pt was seen and discussed with Dr. Díaz Attestation for Medical Student to Teaching Physician: I personally performed or re-performed the history, physical exam and treatment for the E/M. I discussed the case with the Medical Student, and concur with the Medical Student documentation of history, physical exam and treatment plan unless otherwise noted. General: well developed in No distress Skin: no rash or wounds, normal capillary refill HEENT: no erythema, no drainage Neck: supple, no adenopathy, thyroid smooth Heart: S1 S2, no murmur Lungs: clear bilat Abd: soft, NT, ND, +bs, no hepatosplenomegaly Musculoskeletal: full ROM Vascular: radial and pedal pulses palpable, no edema Neuro: alert and oriented, CARTER, speech intact A/P: Patient with pneumonia and currently treated with antibiotics. For her low back pain anesthesia pain pill do trigger point injections. We have decreased her dose of insulinShe is on Rocephin and doxycycline. Encephalopathy seems quite a bit better on rifaximin and lactulose and with treatment of her pneumonia. Liver ultrasound today as requested by dramatically from her outpatient regimen for hypoglycemia. Hepatology consult, appreciate recommendations. Darlene Díaz MD #[id number] __ SUBJECTIVE: Niecy Richey is a 52 y.o. female seen this morning. She did not have any concerns or report any pain. OBJECTIVE: Vital Signs: Last Filed Vital Signs: 24 Hour Range BP: 129/68 (06/09 0444) Temp: 36.7 C (98.1 F) (06/10 443) Pulse: 94 (06/10 443) Respirations: 20 PER MINUTE (06/10 443) SpO2: 93 % (06/10 443) O2 Delivery: Nasal Cannula (06/10 443) SpO2 Pulse: 91 (06/08 0930) BP: (111-160)/(62-76) Temp: [36.4 C (97.5 F)-37.1 C (98.8 F)] Pulse: [78-96] Respirations: [17 PER MINUTE-23 PER MINUTE] SpO2: [89 %-95 %] O2 Delivery: Nasal Cannula Intake/Output Summary (Last 24 hours) at 06/09/2018 0758 Last data filed at 06/09/2018 0000 Gross per 24 hour Intake 583 ml Output 3500 ml Net -2917 ml PHYSICAL EXAMINATION: General Appearance: Slow but alert, cooperative, no distress. Head: Normocephalic, without obvious abnormality, atraumatic Neck: no JVD; no lymphadenopathy Eyes: Conjunctivae/corneas clear. PERRL, EOMs intact. Lungs: Clear breath sounds bilaterally. Heart: Regular rate and rhythm, S1, S2 normal, no murmur, rub, or gallop Abdomen: Distended, non-tender. Bowel sounds normal. No masses. No organomegaly. Extremities: Atraumatic, no cyanosis, no edema. Pulses: +2 pulse in both extremities. Neurologic: CNII - XII grossly intact; no gross focal deficits LABS: Recent Labs 06/08/18 0100 06/08/18 1603 06/09/18 0638 NA 142 -- 143 K 4.0 -- 3.3* CL 105 -- 100 CO2 31* -- 36* GAP 6 -- 7 BUN 17 -- 13 CR 0.74 -- 0.68 GLU 124* 116* 58* CA 8.4* -- 8.4* ALBUMIN 3.4* -- 3.3* HGBA1C 5.8 -- -- TSH 1.120 -- -- Recent Labs 06/08/18 0100 06/08/18 0604 06/09/18 0638 WBC 25.6* -- -- HGB 8.9* -- -- HCT 28.2* -- -- PLTCT 255 -- -- INR 1.7* -- -- PTT 24.1 28.0 28.7 AST 31 -- 22 ALT 15 -- 13 ALKPHOS 66 -- 68 Estimated Creatinine Clearance: 130.1 mL/min (based on SCr of 0.68 mg/dL). Vitals: 06/07/18 2103 Weight: 128.4 kg (283 lb 1.1 oz) No results for input(s): PHART, PO2ART in the last 72 hours. Invalid input(s): PC02A MEDS acetaminophen 500 mg Oral Q8H amitriptyline/gabapentin/emu oil(#) Topical Q8H cefTRIAXone (ROCEPHIN) IV 2 g Intravenous Q24H* doxycycline 100 mg Oral BID eltrombopag(+) 50 mg Oral QDAY furosemide (LASIX) IV 40 mg Intravenous BID(9-17) insulin aspart U-100 18 Units Subcutaneous TID w/ meals insulin glargine 50 Units Subcutaneous QHS lactulose 30 mL Oral TID lidocaine 1 patch Topical QDAY rifAXIMin 550 mg Oral BID IV MEDS PrnguaiFENesin Q4H PRN, nystatin BID PRN * Case Mgmt DC Plan - Amber Pillai - 06/08/2018 12:11 PM CDT Request for Benefits Received request from ROSEMARY Mueller to check IPR and SNF benefits for patient. SNF Benefits: 100 days allowed per calendar year. 20% Co-insurance Subject to deductible IPR Benefits: 100 days allowed per calendar year. 20% Co-insurance Subject to deductible Deductible: $1,000 Pt has met: $846.39 Max OOP: $3,000 Pt has met: $1,268.21 Per Availity website. Amber Pillai Log Cooker For further assistance please contact [facility] *[phone] * Case Mgmt DC Plan - Melissa Carrizales RN - 06/08/2018 12:00 PM CDT Case Management Admission AssessmentNAME:Niecy Richey :1965 AGE: 52 y.o. ADMISSION DATE: 06/07/2018 DAYS ADMITTED: LOS: 1 day Todays Date: 06/08/2018 Source of Information: Patient, Son, EMR Review Plan Plan: Case Management Assessment, Assist PRN with SW/NCM Services Per EMR Review: 52 yo female with PMH of 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 NCM assessed patient at bedside and introduce self and role of CM. Patient accompanied by son, Will, at beside. Patient allowed assessment to be performed with Will in the room. Patient currently lives in a 1 level home with her , Prashant. Prashant works out of the home and is not able to provide much physical assist. Patient stated she uses a RW/Wheelchair and she has a ramp built to enter her home. Patient stated she is able to drive but son stated concerns d/t to recent weakness. She had a fall recently at home. Son also stated he has been assisting patient on/off toilet. Patient currently on 2L O2 at home. Recieves oxygen through [facility] (P [phone]). Patient has hx of home health through [facility] (P [phone]) but is not current with them. Patient would use there services again (received PT/OT/RN). Patient has received rehab from [facility] in the past. Patient and son are interested in pursuing acute rehab post discharge. PT/OT consult placed and updated . Patient recently became disabled and receives SSDI. She states medications are affordable right now. Case management will continue to assess for safe d/c plan. Patient Address/Phone [address] [place] [facility] [address] (home) Emergency Contact Extended Emergency Contact Information Primary Emergency Contact: Prashant Richey Address: [address] [place] [address] [facility] Mobile Relation: Spouse Preferred language: YEMENI Secondary Emergency Contact: [place] [address] [facility] Mobile Relation: Mother Preferred language: YEMENI Healthcare Directive Healthcare Directive: No, patient does not have a healthcare directive Would patient like to fill out a (a new) Healthcare Directive?: No, patient declined Psych Advance Directive (Psych unit only): No, patient does not have a Psych Advance Directive Transportation Does the patient need discharge transport arranged?: No Transportation Name, Phone and Availability #1: Kushal Posadas ([phone]) Does the patient use Medicaid Transportation?: No Expected Discharge Date Living Situation Prior to Admission ? Living Arrangements Type of Residence: Home, dependent [...] system provide 24/7 care if needed?: Maybe ? Level of Function Prior level of function: Needs assist with ADLs Which ADLs require assistance?: son reports recently patient has required assist on/off toilet ? Cognitive Abilities Cognitive Abilities: Alert and Oriented, Engages in problem solving and planning , Participates in decision making, Recognizes impact of health condition on lifestyle Financial Resources ? Coverage Primary Insurance: Commercial insurance([facility] ([place])) Additional Coverage: RX(currently medications are affordable) ? Source of Income Source Of Income: SSDI ? Financial Assistance Needed? N/A Psychosocial Needs ? Mental Health Mental Health History: No ? Substance Use History Substance Use History Screen: No ? Other N/A Current/Previous Services ? PCP Santiago Torres, , ? Pharmacy [facility] [address] [facility] [address] [place] [id number] [facility] [address] [facility] [phone] [facility] [address] [facility] - [place], [place] - [address] [facility] [address] [facility] [address] Alternate [facility] [place] [place] - [address] [place] [phone] ? Durable Medical Equipment Durable Medical Equipment at home: Bedside Commode, Wheelchair (manual), Roller Walker, Oxygen ? Home Health Receiving home health: In the past Agency name: [facility] ([phone]) Would patient use this agency again?: Yes ? Hemodialysis or Peritoneal Dialysis Undergoing hemodialysis or peritoneal dialysis: No ? Tube/Enteral Feeds Receive tube/enteral feeds: No ? Infusion Receive infusions: No ? Private Duty Private duty help used: No ? Home and Community Based Services Home and community based services: No ? Helio Mckeon: N/A ? Hospice Hospice: No ? Outpatient Therapy PT: No OT: No DYE TUB TENDER: No ? Care Home Facility/Senior Care SNF: No NH: No ? Inpatient Rehab IPR: In the past Name of Facility: [facility] Would patient return for future services?: Yes ? Long-Term Acute Care Hospital LTACH: No ? Acute Hospital Stay Acute Hospital Stay: In the past Was patient's stay within the last 30 days?: No Melissa SANCHES RN, CRRN [facility] *[phone] * Case Mgmt DC Plan - Jose Haq LSShane - 06/08/2018 11:33 AM CDT Case Management Progress NoteNAME:Niecy Richey :1965 AGE: 52 y.o. ADMISSION DATE: 06/07/2018 DAYS ADMITTED: LOS: 1 day Todays Date: 06/08/2018 Plan D/c planning is ongoing. PT and OT recs are home. Pt is asking to d/c to home with outpatient PT and OT. Interventions ? Support I met with the pt at bedside to discuss OT's recs that she enter a rehab setting prior to returning home. Pt declined this and stated that she would prefer to do outpatient PT and OT at a nearby hospital in [place], [place]. The pt has been to [facility] in [place], [place]. She stated that she feels safe to return home and that she will transport herself to and from PT and OT in [place]. I will f/u with the pt on 06/12 to discuss post-acute care options. ? Info or Referral ? Discharge Planning ? Medication Needs ? Financial ? Legal ? Other Disposition ? Expected Discharge Date ? Transportation ? Next Level of Care (Acute Psych discharges only) ? Discharge Disposition Durable Medical Equipment No service has been selected for the patient. [facility] No service has been selected for the patient. [facility] No service has been selected for the patient. [facility]/Infusion No service has been selected for the patient. CHERI Mueller, AMPOULE FILLER Pager: [phone] Office: [phone] * Procedures (Immed Post or Bedside) - Modesto Martinez MD - 06/08/2018 8: 28 AM CDT Immediate Post Procedure Note Date: 06/08/2018 Attending Physician: Mercy Benjamin MD Performing Provider: Modesto Martinez MD Consent: Consent obtained from patient. Time out performed: Consent obtained, correct patient verified, correct procedure verified, correct site verified, patient marked as necessary. Pre/Post Procedure Diagnosis: ascites Indications: ascites Anesthesia: none Procedure(s): Aborted paracentesis, limited abdominal US Findings: No drainable ascites for paracentesis. Estimated Blood Loss: None/Negligible Specimen(s) Removed/Disposition: None Complications: None Patient Tolerated Procedure: Well Post-Procedure Condition: stable Modesto Martinez MD Pager [phone] * Med Student Progress Note - Darlene Díaz MD - 06/08/2018 7:07 AM CDT Progress Note Niecy Richey Admission Date: 06/07/2018 Principal Problem: Hepatic encephalopathy (HCC) Active Problems: Thrombocytopenia (HCC) Type 2 diabetes mellitus with complication (HCC) Idiopathic thrombocytopenic purpura (HCC) History of hepatitis C Pneumonia Morbid obesity (HCC) ASSESSMENT/PLAN: Ms Niecy Richey is a 52 yo female with PMH of 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 Her paracentesis was dry. She is being treated for community acquired pneumonia with rocephin and doxycycline. Consults for anesthesia pain and physical therapy have been placed for evaluation of lower back pain which is inhibiting her ability to recover. Hepatic Encephalopathy Pneumonia - CAP -Reports increased lethargy and confusion after having fall 1 week prior to admission and receiving oxycodone PRN. Also, recent onset of cough and URI with leukocytosis. Reported prednisone last week due to fall which may be contributing to leukocytosis. CT showing abdominal ascites and lung infiltrates , so antibiotics started for SBP ppx and CAP. Negative infectious work-up of RVP , flu, procalcitonin, strep and legionella ags labs. Blood and sputum cultures currently negative. - ammonia levels 120 - T bili & INR elevated. AST&ALT wnl PLAN > rocephin and doxycycline > obtain blood and resp cultures > duoneb tx > CAMPAIGN ADVISOR rifaximin and lactulose > Hepatology consulted to assist with management >>2g Na restriction, liver ultrasound, cont abx, outpt EGD ESLD - Secondary to HCV and VALERIO. CT A-P: showing ascites. AFP nml. - continue CAMPAIGN ADVISOR rifaxim and lactulose. - will start on IV lasix - takes bumex at home - MELD - Na on admission 16 >CAMPAIGN ADVISOR rifaximin and Lactulose. D/c CAMPAIGN ADVISOR bumex. Start IV lasix 40mg BID Hx of ITP - s/p splenectomy at age 6 - follows heme - Dr. Moran - platelet count wnl on admission, denies any recent bleeds > Promacta Lower back pain - Prior history of lower back pain with recent falls and weakness. Had MRI of lumbar spine at [facility] in [place] who have been contacted to cloud images. Family is in favor of discharge to rehab facility to improve strength prior to return home. >Anesthesia for consideration of lower back injection >PT/OT DM II - A1c 5.8 > continue CAMPAIGN ADVISOR insulin( Lantus 50u qHS, aspart 18u TID) > add sliding scale HTN > CAMPAIGN ADVISOR lisinopril FEN - No IVF - monitor and replace electrolytes - cadiac/diabetic Diet PPx: SCDs , hold enoxaparin for procedure in the am Code Status: Full Code FEN: Cardiac/diabetic Prophylaxis:hold enoxaparin for procedure Disposition: Med-K Pt was seen and discussed with Dr. Díaz Attestation for Medical Student to Teaching Physician: I personally performed or re-performed the history, physical exam and treatment for the E/M. I discussed the case with the Medical Student, and concur with the Medical Student documentation of history, physical exam and treatment plan unless otherwise noted. General: well developed in No distress Skin: no rash or wounds, normal capillary refill HEENT: no erythema, no drainage Neck: supple, no adenopathy, thyroid smooth Heart: S1 S2, no murmur Lungs: clear bilat Abd: soft, NT, ND, +bs, no hepatosplenomegaly Musculoskeletal: full ROM Vascular: radial and pedal pulses palpable, no edema Neuro: alert and oriented, CARTER, speech intact A/P: Patient with end-stage liver disease admitted for encephalopathy which is much improved now we are treating her for pneumonia with antibiotics. Appreciate hepatology recommendations. For her low back pain will ask anesthesia to see her about a possible epidural steroid injection. Darlene Díaz MD #[id number] __ SUBJECTIVE: Niecy Richey is a 52 y.o. female seen this morning with her son. She had just returned from her attempted paracentesis. She was in good spirits and able to converse in full sentences. She did not have any concerns or report any pain. Her son mentioned that she had not had her promacta yet and wanted to ensure that this was okay. OBJECTIVE: Vital Signs: Last Filed Vital Signs: 24 Hour Range BP: 136/68 (06/09 399) Temp: 36.6 C (97.8 F) (06/07 2318) Pulse: 89 (06/09 399) Respirations: 17 PER MINUTE (06/09 399) SpO2: 93 % (06/09 399) O2 Delivery: Nasal Cannula (06/07 2318) Height: 172.7 cm (68") (06/07 2102) BP: (136-161)/(61-68) Temp: [36.6 C (97.8 F)-36.6 C (97.9 F)] Pulse: [86-89] Respirations: [17 PER MINUTE-18 PER MINUTE] SpO2: [93 %-96 %] O2 Delivery: Nasal Cannula Intake/Output Summary (Last 24 hours) at 06/08/2018706 Last data filed at 06/08/2018399 Gross per 24 hour Intake 200 ml Output 1700 ml Net -1500 ml PHYSICAL EXAMINATION: General Appearance: Alert, cooperative, no distress. Head: Normocephalic, without obvious abnormality, atraumatic Neck: no JVD; no lymphadenopathy Eyes: Conjunctivae/corneas clear. PERRL, EOMs intact. Lungs: Clear breath sounds bilaterally. Heart: Regular rate and rhythm, S1, S2 normal, no murmur, rub, or gallop Abdomen: Distended, non-tender. Bowel sounds normal. No masses. No organomegaly. Extremities: Atraumatic, no cyanosis, no edema. Pulses: +2 pulse in both extremities. Neurologic: CNII - XII grossly intact; no gross focal deficits LABS: Recent Labs NA 142 K 4.0 CL 105 CO2 31* GAP 6 BUN 17 CR 0.74 GLU 124* CA 8.4* ALBUMIN 3.4* TSH 1.120 Recent Labs 06/08/189906/08/18 06 WBC 25.6* -- HGB 8.9* -- HCT 28.2* -- PLTCT 255 -- INR 1.7* -- PTT 24.1 28.0 AST 31 -- ALT 15 -- ALKPHOS 66 -- Estimated Creatinine Clearance: 123.1 mL/min (based on SCr of 0.74 mg/dL). Vitals: 06/07/182102 Weight: 128.4 kg (283 lb 1.1 oz) No results for input(s): PHART, PO2ART in the last 72 hours. Invalid input(s): PC02A MEDS cefTRIAXone (ROCEPHIN) IV 2 g Intravenous Q24H* doxycycline (VIBRAMYCIN) IVPB 100 mg Intravenous Q12H* furosemide (LASIX) IV 40 mg Intravenous BID(9-17) furosemide NOW insulin aspart U-100 18 Units Subcutaneous TID w/ meals insulin glargine 50 Units Subcutaneous QHS lactulose 30 mL Oral TID lidocaine 1 patch Topical QDAY rifAXIMin 550 mg Oral BID IV MEDS PrnguaiFENesin Q4H PRN * Care Coordination-Inpatient - Jose Alejandro Hanks MD - 06/08/2018 12:45 AM CDT Page 1891 till 8 am * Advanced Care Planning/Resuscitation Status - Amira Phillip MBBS - 2018 11:19 PM CDT Advance Care Planning/Resuscitation Status Conversation Individuals present for advance care planning conversation: attending physician and patient Pertinent details of conversation (including direct quotes from patient or surrogate): Patient would like full resuscitative efforts in an event of cardiac arrest Outcome of conversation: Full Code Documents completed as a result of this conversation: None Other documents present, which outline patient/surrogate wishes: None Attestation? N/A * Care Plan - Leah Chin MD - 06/07/2018 3:30 PM CDT Reason For Transfer:EMTALA Transfer Location: [facility] Current Level of Service: ED Discussed with Referring Provider (yes/no): NO Transfer Center Triage Contact: Monica Pre-Transfer Course: 52 yof with hx HCV cirhosis with ascites, DM, ITP, hx C diff who presented to the ER with AMS, gen weakness, abd distention, and cough. VS temp 897.5, HR 93, 177/72, 18, 93% on 2 L NC. WBC 28, LA 23.9 (nl range is 4 -19), CR 0.9, Na 141, ast 36, alt 16, ap 78, TB 1.9, NH3 121 (prior was 137, lactulose was subsequently increased). CT a/p showed ascites and LLL PNA. pt was started on cefepime, bld cx x 2. no paracentesis was done. Pt was accepted for transfer. documented in this encounter Plan of Treatment Order Schedule Name Priority Associated Diagnoses ONE TIME for 1 Occurrences starting 06/08/2018 until 06/08/2018, 1 completed GENERAL RAD CHEST EXTERNAL IMAGING Routine ONE TIME for 1 Occurrences starting 06/08/2018 until 06/08/2018, [address] ABD/PEL EXTERNAL IMAGING Routine ONE TIME for 1 Occurrences starting 06/08/2018 until 06/08/2018, 1 completed MRI ABDOMEN EXTERNAL IMAGING Routine documented as of this encounter Procedures Comments Procedure Name Priority Date/Time Associated Diagnosis POC GLUCOSE 06/15/2018 8:32 AM CDT CBC AND DIFF Routine 06/15/2018 6:18 AM CDT COMPREHENSIVE METABOLIC Routine 06/15/2018 PANEL 6:18 AM CDT POC GLUCOSE 06/14/2018 9:58 PM CDT POC GLUCOSE 06/14/2018 6:01 PM CDT POC GLUCOSE 06/14/2018 12:30 PM CDT CBC AND DIFF Routine 06/14/2018 9:03 AM CDT COMPREHENSIVE METABOLIC Routine 06/14/2018 PANEL 9:03 AM CDT POC GLUCOSE 06/14/2018 8:41 AM CDT POC GLUCOSE 06/13/2018 9:33 PM CDT POC GLUCOSE 06/13/2018 5:45 PM CDT POC GLUCOSE 06/13/2018 12:25 PM CDT POC GLUCOSE 06/13/2018 8:10 AM CDT CBC AND DIFF Routine 06/13/2018 6:30 AM CDT COMPREHENSIVE METABOLIC Routine 06/13/2018 PANEL 6:30 AM CDT POC GLUCOSE 06/12/2018 9:31 PM CDT POC GLUCOSE 06/12/2018 4:53 PM CDT POC GLUCOSE 06/12/2018 11:55 AM CDT POC GLUCOSE 06/12/2018 8:08 AM CDT CBC AND DIFF Routine 06/12/2018 6:23 AM CDT COMPREHENSIVE METABOLIC Routine 06/12/2018 PANEL 6:23 AM CDT POC GLUCOSE 06/11/2018 9:43 PM CDT POC GLUCOSE 06/11/2018 6:19 PM CDT POC GLUCOSE 06/11/2018 5:11 PM CDT POC GLUCOSE 06/11/2018 11:48 AM CDT POC GLUCOSE 06/11/2018 8:20 AM CDT PTT (APTT) Routine 06/11/2018 5:49 AM CDT CBC AND DIFF Routine 06/11/2018 5:49 AM CDT COMPREHENSIVE METABOLIC Routine 06/11/2018 PANEL 5:49 AM CDT POC GLUCOSE 06/10/2018 9:40 PM CDT POC GLUCOSE 06/10/2018 5:32 PM CDT POC GLUCOSE 06/10/2018 11:20 AM CDT POC GLUCOSE 06/10/2018 7:43 AM CDT PTT (APTT) Routine 06/10/2018 4:58 AM CDT CBC AND DIFF 06/10/2018 4:58 AM CDT COMPREHENSIVE METABOLIC 06/10/2018 PANEL 4:58 AM CDT POC GLUCOSE 06/09/2018 9:49 PM CDT POC GLUCOSE 06/09/2018 6:11 PM CDT POC GLUCOSE 06/09/2018 1:27 PM CDT US ABDOMEN COMPLETE Routine 06/09/2018 12:44 PM CDT POC GLUCOSE 06/09/2018 8:24 AM CDT POC GLUCOSE 06/09/2018 7:21 AM CDT POC GLUCOSE 06/09/2018 6:52 AM CDT PTT (APTT) Routine 06/09/2018 6:38 AM CDT CBC AND DIFF Routine 06/09/2018 6:38 AM CDT COMPREHENSIVE METABOLIC Routine 06/09/2018 PANEL 6:38 AM CDT POC GLUCOSE 06/08/2018 10:12 [...] SINGLE VIEW Routine 06/08/2018 1:19 AM CDT PROCALCITONIN Routine 06/08/2018 1:00 AM CDT TSH WITH FREE T4 REFLEX Routine 06/08/2018 1:00 AM CDT ALPHA FETO PROTEIN (AFP) Routine 06/08/2018 1:00 AM CDT INFLUENZA A/B AG (RAPID Routine 06/08/2018 TEST) 1:00 AM CDT PTT (APTT) Routine 06/08/2018 1:00 AM CDT PROTIME INR (PT) Routine 06/08/2018 1:00 AM CDT CBC AND DIFF Routine 06/08/2018 1:00 AM CDT BNP (B-TYPE NATRIURETIC Routine 06/08/2018 PEPTI) 1:00 AM CDT HEMOGLOBIN A1C Routine 06/08/2018 1:00 AM CDT LIPID PROFILE Routine 06/08/2018 1:00 AM CDT COMPREHENSIVE METABOLIC Routine 06/08/2018 PANEL 1:00 AM CDT ECG 12-LEAD Routine 06/08/2018 12:[address] ABD/PEL EXTERNAL Routine 06/07/2018 IMAGING 12:05 AM CDT GENERAL RAD CHEST Routine 06/07/2018 EXTERNAL IMAGING 12:00 AM CDT ECG-SCAN 06/07/2018 12:00 AM CDT MRI ABDOMEN EXTERNAL Routine 07/22/2016 IMAGING 12:00 AM CDT documented in this encounter Results * POC GLUCOSE (06/15/2018 8:32 AM CDT) Glucose, POC 128 (H) 70 - 100 MG/DL [facility] Performing Organization Address City/[facility]/Zipcode Phone Number [facility] [address] [place] [address] * COMPREHENSIVE METABOLIC PANEL (06/15/2018 6:18 AM CDT) Pathologist [facility] Sodium 139 137 - 147 MMOL/L [facility] Potassium 5.0 3.5 - 5.1 MMOL/L [facility] Chloride 103 98 - 110 MMOL/L [facility] Glucose 141 (H) 70 - 100 MG/DL [facility] Blood Urea 25 7 - 25 MG/DL [facility] Nitrogen Creatinine 0.79 0.4 - 1.00 MG/DL [facility] Calcium 9.2 8.5 - 10.6 MG/DL [facility] Total Protein 5.9 (L) 6.0 - 8.0 G/DL [facility] Total Bilirubin 1.6 (H) 0.3 - 1.2 MG/DL [facility] Albumin 3.2 (L) 3.5 - 5.0 G/DL [facility] Alk Phosphatase 88 25 - 110 U/L [facility] AST (SGOT) 23 7 - 40 U/L [facility] CO2 32 (H) 21 - 30 MMOL/L [facility] ALT (SGPT) 12 7 - 56 U/L [facility] Anion Gap 4 3 - 12 [facility] eGFR Non >60 >60 mL/min [facility] Comment: [place] The eGFR is not validated for use in drug dosing adjustments.Continue to use estimated creatinine clearance per dosing reference text.Please contact the Clinical Pharmacist for questions. eGFR >60 >60 mL/min [facility] [place] Comment: The eGFR is not validated for use in drug dosing adjustments.Continue to use estimated creatinine clearance per dosing reference text.Please contact the Clinical Pharmacist for questions. Specimen Blood Performing Organization Address City/[facility]/Zipcode Phone Number [facility] [address] [place] [address] * CBC AND DIFF (06/15/2018 6:18 AM CDT) White Blood 22.2 (H) 4.5 - 11.0 K/UL [facility] Cells RBC 3.04 (L) 4.0 - 5.0 M/UL [facility] Hemoglobin 8.7 (L) 12.0 - 15.0 GM/DL [facility] Hematocrit 27.3 (L) 36 - 45 % [facility] MCV 89.8 80 - 100 FL [facility] MCH 28.5 26 - 34 PG [facility] MCHC 31.8 (L) 32.0 - 36.0 G/DL [facility] RDW 21.2 (H) 11 - 15 % [facility] Platelet Count 134 (L) 150 - 400 K/UL [facility] MPV 14.1 (H) 7 - 11 FL [facility] Neutrophils 58 41 - 77 % [facility] Lymphocytes 27 24 - 44 % [facility] Monocytes 13 (H) 4 - 12 % [facility] Eosinophils 1 0 - 5 % [facility] Basophils 1 0 - 2 % [facility] Absolute 12.80 (H) 1.8 - 7.0 K/UL [facility] Neutrophil Count Absolute Lymph 6.00 (H) 1.0 - 4.8 K/UL [facility] Count Absolute 3.00 (H) 0 - 0.80 K/UL [facility] Monocyte Count Absolute 0.30 0 - 0.45 K/UL [facility] Eosinophil Count Absolute 0.20 0 - 0.20 K/UL [facility] Basophil Count Specimen Blood Performing Organization Address City/[facility]/Zipcode Phone Number [facility] [address] [place] [address] * POC GLUCOSE (06/14/2018 9:58 PM CDT) Glucose, POC 181 (H) 70 - 100 MG/DL [facility] Performing Organization Address City/State/Zipcode Phone Number [facility] [address] [place] [address] * POC GLUCOSE (06/14/2018 6:01 PM CDT) Glucose, POC 158 (H) 70 - 100 MG/DL [facility] Performing Organization Address City/[facility]/Zipcode Phone Number [facility] [address] [place] [address] * POC GLUCOSE (06/14/2018 12:30 PM CDT) Glucose, POC 147 (H) 70 - 100 MG/DL [facility] Performing Organization Address City/State/Zipcode Phone Number [facility] [address] [place] [address] * COMPREHENSIVE METABOLIC PANEL (06/14/2018 9:03 AM CDT) Sodium 135 (L) 137 - 147 MMOL/L [facility] Potassium 4.7 3.5 - 5.1 MMOL/L [facility] Chloride 100 98 - 110 MMOL/L [facility] Glucose 148 (H) 70 - 100 MG/DL [facility] Blood Urea 21 7 - 25 MG/DL [facility] Nitrogen Creatinine 0.71 0.4 - 1.00 MG/DL [facility] Calcium 9.2 8.5 - 10.6 MG/DL [facility] Total Protein 6.2 6.0 - 8.0 G/DL [facility] Total Bilirubin 1.9 (H) 0.3 - 1.2 MG/DL [facility] Albumin 3.2 (L) 3.5 - 5.0 G/DL [facility] Alk Phosphatase 82 25 - 110 U/L [facility] AST (SGOT) 22 7 - 40 U/L [facility] CO2 30 21 - 30 MMOL/L [facility] ALT (SGPT) 11 7 - 56 U/L [facility] Anion Gap 5 3 - 12 [facility] eGFR Non >60 >60 mL/min [facility] Comment: [place] The eGFR is not validated for use in drug dosing adjustments.Continue to use estimated creatinine clearance per dosing reference text.Please contact the Clinical Pharmacist for questions. eGFR >60 >60 mL/min [facility] [place] Comment: The eGFR is not validated for use in drug dosing adjustments.Continue to use estimated creatinine clearance per dosing reference text.Please contact the Clinical Pharmacist for questions. Specimen Blood Performing Organization Address City/State/Zipcode Phone Number [facility] [address] [place] [address] * CBC AND DIFF (06/14/2018 9:03 AM CDT) White Blood 22.2 (H) 4.5 - 11.0 K/UL [facility] Cells RBC 3.09 (L) 4.0 - 5.0 M/UL [facility] Hemoglobin 8.9 (L) 12.0 - 15.0 GM/DL [facility] Hematocrit 27.5 (L) 36 - 45 % [facility] MCV 89.1 80 - 100 FL [facility] MCH 28.8 26 - 34 PG [facility] MCHC 32.4 32.0 - 36.0 G/DL [facility] RDW 21.1 (H) 11 - 15 % [facility] Platelet Count 151 150 - 400 K/UL [facility] MPV 15.6 (H) 7 - 11 FL [facility] Neutrophils 57 41 - 77 % [facility] Lymphocytes 28 24 - 44 % [facility] Monocytes 13 (H) 4 - 12 % [facility] Eosinophils 1 0 - 5 % [facility] Basophils 1 0 - 2 % [facility] Absolute 12.60 (H) 1.8 - 7.0 K/UL [facility] Neutrophil Count Absolute Lymph 6.30 (H) 1.0 - 4.8 K/UL [facility] Count Absolute 2.90 (H) 0 - 0.80 K/UL [facility] Monocyte Count Absolute 0.30 0 - 0.45 K/UL [facility] Eosinophil Count Absolute 0.20 0 - 0.20 K/UL [facility] Basophil Count Specimen Blood Performing Organization Address City/[facility] Phone Number [facility] [address] [place] [address] * POC GLUCOSE (06/14/2018 8:41 AM CDT) Glucose, POC 151 (H) 70 - 100 MG/DL [facility] Performing Organization Address City/[facility]ode Phone Number [facility] [address] [place] [address] * POC GLUCOSE (06/13/2018 9:33 PM CDT) Glucose, POC 193 (H) 70 - 100 MG/DL [facility] Performing Organization Address City/[facility] Phone Number [facility] [address] [place] [address] * POC GLUCOSE (06/13/2018 5:45 PM CDT) Glucose, POC 163 (H) 70 - 100 MG/DL [facility] Performing Organization Address City/[facility] Phone Number [facility] [address] [place] [address] * POC GLUCOSE (06/13/2018 12:25 PM CDT) Glucose, POC 169 (H) 70 - 100 MG/DL [facility] Performing Organization Address [facility] Phone Number [facility] [address] [place] [address] * POC GLUCOSE (06/13/2018 8:10 AM CDT) Glucose, POC 128 (H) 70 - 100 MG/DL [facility] Performing Organization Address [facility] Cent[facility]ode Phone Number [facility] [address] [place] [address] * COMPREHENSIVE METABOLIC PANEL (06/13/2018 6:30 AM CDT) Sodium 138 137 - 147 MMOL/L [facility] Potassium 4.3 3.5 - 5.1 MMOL/L [facility] Chloride 100 98 - 110 MMOL/L [facility] Glucose 130 (H) 70 - 100 MG/DL [facility] Blood Urea 24 7 - 25 MG/DL [facility] Nitrogen Creatinine 0.72 0.4 - 1.00 MG/DL [facility] Calcium 9.2 8.5 - 10.6 MG/DL [facility] Total Protein 6.0 6.0 - 8.0 G/DL [facility] Total Bilirubin 1.7 (H) 0.3 - 1.2 MG/DL [facility] Albumin 3.3 (L) 3.5 - 5.0 G/DL [facility] Alk Phosphatase 75 25 - 110 U/L [facility] AST (SGOT) 22 7 - 40 U/L [facility] CO2 34 (H) 21 - 30 MMOL/L [facility] ALT (SGPT) 13 7 - 56 U/L [facility] Anion Gap 4 3 - 12 [facility] eGFR Non >60 >60 mL/min [facility] Comment: [place] The eGFR is not validated for use in drug dosing adjustments.Continue to use estimated creatinine clearance per dosing reference text.Please contact the Clinical Pharmacist for questions. eGFR >60 >60 mL/min [facility] [place] Comment: The eGFR is not validated for use in drug dosing adjustments.Continue to use estimated creatinine clearance per dosing reference text.Please contact the Clinical Pharmacist for questions. Specimen Blood Performing Organization Address City/[facility]/Zipcode Phone Number [facility] [address] [place] [address] * CBC AND DIFF (06/13/2018 6:30 AM CDT) White Blood 21.5 (H) 4.5 - 11.0 K/UL [facility] Cells RBC 3.08 (L) 4.0 - 5.0 M/UL [facility] Hemoglobin 8.7 (L) 12.0 - 15.0 GM/DL [facility] Hematocrit 27.4 (L) 36 - 45 % [facility] MCV 89.0 80 - 100 FL [facility] MCH 28.3 26 - 34 PG [facility] MCHC 31.8 (L) 32.0 - 36.0 G/DL [facility] RDW 21.6 (H) 11 - 15 % [facility] Platelet Count 152 150 - 400 K/UL [facility] MPV 14.2 (H) 7 - 11 FL [facility] Neutrophils 59 41 - 77 % [facility] Lymphocytes 23 (L) 24 - 44 % [facility] Monocytes 15 (H) 4 - 12 % [facility] Eosinophils 2 0 - 5 % [facility] Basophils 1 0 - 2 % [facility] Absolute 12.90 (H) 1.8 - 7.0 K/UL [facility] Neutrophil Count Absolute Lymph 5.00 (H) 1.0 - 4.8 K/UL [facility] Count Absolute 3.20 (H) 0 - 0.80 K/UL [facility] Monocyte Count Absolute 0.30 0 - 0.45 K/UL [facility] Eosinophil Count Absolute 0.20 0 - 0.20 K/UL [facility] Basophil Count Specimen Blood Performing Organization Address City/State/Zipcode Phone Number [facility] [address] [place] [address] * POC GLUCOSE (06/12/2018 9:31 PM CDT) Glucose, POC 192 (H) 70 - 100 MG/DL [facility] Performing Organization Address City/State/Zipcode Phone Number [facility] [address] [place] [address] * POC GLUCOSE (06/12/2018 4:53 PM CDT) Glucose, POC 191 (H) 70 - 100 MG/DL [facility] Performing Organization Address City/[facility]/Zipcode Phone Number [facility] [address] [place] [address] * POC GLUCOSE (06/12/2018 11:55 AM CDT) Glucose, POC 219 (H) 70 - 100 MG/DL [facility] Performing Organization Address [facility]ercode Phone Number [facility] [address] [place] [address] * POC GLUCOSE (06/12/2018 8:08 AM CDT) Glucose, POC 150 (H) 70 - 100 MG/DL [facility] Performing Organization Address [facility] Phone Number [facility] [address] [place] [address] * COMPREHENSIVE METABOLIC PANEL (06/12/2018 6:23 AM CDT) Sodium 138 137 - 147 MMOL/L [facility] Potassium 4.6 3.5 - 5.1 MMOL/L [facility] Chloride 99 98 - 110 MMOL/L [facility] Glucose 160 (H) 70 - 100 MG/DL [facility] Blood Urea 28 (H) 7 - 25 MG/DL [facility] Nitrogen Creatinine 0.90 0.4 - 1.00 MG/DL [facility] Calcium 8.8 8.5 - 10.6 MG/DL [facility] Total Protein 6.1 6.0 - 8.0 G/DL [facility] Total Bilirubin 1.6 (H) 0.3 - 1.2 MG/DL [facility] Albumin 3.4 (L) 3.5 - 5.0 G/DL [facility] Alk Phosphatase 69 25 - 110 U/L [facility] AST (SGOT) 30 7 - 40 U/L [facility] CO2 35 (H) 21 - 30 MMOL/L [facility] ALT (SGPT) 14 7 - 56 U/L [facility] Anion Gap 4 3 - 12 [facility] eGFR Non >60 >60 mL/min [facility] Comment: [place] The eGFR is not validated for use in drug dosing adjustments.Continue to use estimated creatinine clearance per dosing reference text.Please contact the Clinical Pharmacist for questions. eGFR >60 >60 mL/min [facility] [place] Comment: The eGFR is not validated for use in drug dosing adjustments.Continue to use estimated creatinine clearance per dosing reference text.Please contact the Clinical Pharmacist for questions. Specimen Blood Performing Organization Address City/State/Zipcode Phone Number [facility] [address] [place] [address] * CBC AND DIFF (06/12/2018 6:23 AM CDT) White Blood 21.7 (H) 4.5 - 11.0 K/UL [facility] Cells RBC 3.12 (L) 4.0 - 5.0 M/UL [facility] Hemoglobin 8.8 (L) 12.0 - 15.0 GM/DL [facility] Hematocrit 27.9 (L) 36 - 45 % [facility] MCV 89.4 80 - 100 FL [facility] MCH 28.3 26 - 34 PG [facility] MCHC 31.6 (L) 32.0 - 36.0 G/DL [facility] RDW 21.8 (H) 11 - 15 % [facility] Platelet Count 177 150 - 400 K/UL [facility] MPV 12.9 (H) 7 - 11 FL [facility] Neutrophils 62 41 - 77 % [facility] Lymphocytes 19 (L) 24 - 44 % [facility] Monocytes 15 (H) 4 - 12 % [facility] Eosinophils 3 0 - 5 % [facility] Basophils 1 0 - 2 % [facility] Absolute 13.30 (H) 1.8 - 7.0 K/UL [facility] Neutrophil Count Absolute Lymph 4.20 1.0 - 4.8 K/UL [facility] Count Absolute 3.30 (H) 0 - 0.80 K/UL [facility] Monocyte Count Absolute 0.60 (H) 0 - 0.45 K/UL [facility] Eosinophil Count Absolute 0.20 0 - 0.20 K/UL [facility] Basophil Count Specimen Blood Performing Organization Address City/State/Zipcode Phone Number [facility] [address] [place] [address] * POC GLUCOSE (06/11/2018 9:43 PM CDT) Glucose, POC 190 (H) 70 - 100 MG/DL [facility] Performing Organization Address City/[facility]/Zipcode Phone Number [facility] [address] [place] [address] * POC GLUCOSE (06/11/2018 6:19 PM CDT) Glucose, POC 356 (H) 70 - 100 MG/DL [facility] Performing Organization Address [facility] Phone Number [facility] [address] [place] [address] * POC GLUCOSE (06/11/2018 5:11 PM CDT) Glucose, POC 208 (H) 70 - 100 MG/DL [facility] Performing Organization Address [facility] Phone Number [facility] [address] [place] [address] * POC GLUCOSE (06/11/2018 11:48 AM CDT) Glucose, POC 202 (H) 70 - 100 MG/DL [facility] Performing Organization Address [facility] Phone Number [facility] [address] [place] [phone] * POC GLUCOSE (06/11/2018 8:20 AM CDT) Glucose, POC 139 (H) 70 - 100 MG/DL [facility] Performing Organization Address [facility] Phone Number [facility] [address] [place] [address] * COMPREHENSIVE METABOLIC PANEL (06/11/2018 5:49 AM CDT) Sodium 140 137 - 147 MMOL/L [facility] Potassium 4.3 3.5 - 5.1 MMOL/L [facility] Chloride 101 98 - 110 MMOL/L [facility] Glucose 155 (H) 70 - 100 MG/DL [facility] Blood Urea 23 7 - 25 MG/DL [facility] Nitrogen Creatinine 0.79 0.4 - 1.00 MG/DL [facility] Calcium 8.6 8.5 - 10.6 MG/DL [facility] Total Protein 5.8 (L) 6.0 - 8.0 G/DL [facility] Total Bilirubin 1.4 (H) 0.3 - 1.2 MG/DL [facility] Albumin 3.1 (L) 3.5 - 5.0 G/DL [facility] Alk Phosphatase 61 25 - 110 U/L [facility] AST (SGOT) 19 7 - 40 U/L [facility] CO2 36 (H) 21 - 30 MMOL/L [facility] ALT (SGPT) 11 7 - 56 U/L [facility] Anion Gap 3 3 - 12 [facility] eGFR Non >60 >60 mL/min [facility] Comment: [place] The eGFR is not validated for use in drug dosing adjustments.Continue to use estimated creatinine clearance per dosing reference text.Please contact the Clinical Pharmacist for questions. eGFR >60 >60 mL/min [facility] [place] Comment: The eGFR is not validated for use in drug dosing adjustments.Continue to use estimated creatinine clearance per dosing reference text.Please contact the Clinical Pharmacist for questions. Specimen Blood Performing Organization Address City/[facility]/Zipcode Phone Number MAIN LAB [address] [place] [address] * CBC AND DIFF (06/11/2018 5:49 AM CDT) White Blood 18.6 (H) 4.5 - 11.0 K/UL [facility] Cells RBC 2.96 (L) 4.0 - 5.0 M/UL [facility] Hemoglobin 8.5 (L) 12.0 - 15.0 GM/DL [facility] Hematocrit 26.8 (L) 36 - 45 % [facility] MCV 90.6 80 - 100 FL [facility] MCH 28.8 26 - 34 PG [facility] MCHC 31.7 (L) 32.0 - 36.0 G/DL [facility] RDW 23.1 (H) 11 - 15 % [facility] Platelet Count 155 150 - 400 K/UL [facility] MPV 14.4 (H) 7 - 11 FL [facility] Nucleated RBCs 9 K/UL [facility] Segmented 65 41 - 77 % [facility] Neutrophils Bands 1 0 - 10 % [facility] Lymphocytes 15 (L) 24 - 44 % [facility] Monocytes 13 (H) 4 - 12 % [facility] Eosinophil 6 (H) 0 - 5 % [facility] ANISO PRESENT [employer] MAIN LAB HYPO PRESENT [employer] MAIN LAB POIK PRESENT [employer] MAIN LAB POLY PRESENT [employer] MAIN LAB Ovalocyte PRESENT [employer] MAIN LAB Schistocyte PRESENT [employer] MAIN LAB Target PRESENT [employer] MAIN LAB Platelet NORMAL [employer] MAIN LAB Estimate Gladis Cells PRESENT [employer] MAIN LAB Absolute 12.28 (H) 1.8 - 7.0 K/UL [employer] MAIN LAB Neutrophil Count Manual Specimen Blood Performing Organization Address City/[facility]/Zipcode Phone Number MAIN LAB [address] [place] [address] * PTT (APTT) (06/11/2018 5:49 AM CDT) APTT 30.3 24.0 - 36.5 SEC [facility] Specimen Blood Performing Organization Address [facility] Phone Number [facility] [address] [place] [address] * POC GLUCOSE (06/10/2018 9:40 PM CDT) Glucose, POC 167 (H) 70 - 100 MG/DL [facility] Performing Organization Address [facility] Phone Number [facility] [address] [place] [address] * POC GLUCOSE (06/10/2018 5:32 PM CDT) Glucose, POC 172 (H) 70 - 100 MG/DL [facility] Performing Organization Address [facility] Phone Number MAIN [facility] [address] [place] [address] * POC GLUCOSE (06/10/2018 11:20 AM CDT) Glucose, POC 243 (H) 70 - 100 MG/DL [facility] Performing Organization Address [facility] Phone Number MAIN [facility] [address] [place] [address] * POC GLUCOSE (06/10/2018 7:43 AM CDT) Glucose, POC 114 (H) 70 - 100 MG/DL [facility] Performing Organization Address [facility] Phone Number MAIN [facility] [address] [place] [address] * CBC AND DIFF (06/10/2018 4:58 AM CDT) White Blood 20.3 (H)Comment: Adjusted for 4.5 - 11.0 K/UL [facility] Cells Nucleated RBC's RBC 3.12 (L) 4.0 - 5.0 M/UL [facility] Hemoglobin 9.0 (L) 12.0 - 15.0 GM/DL [facility] Hematocrit 28.0 (L) 36 - 45 % [facility] MCV 89.8 80 - 100 FL [facility] MCH 28.8 26 - 34 PG MAIN LAB MCHC 32.1 32.0 - 36.0 G/DL [facility] RDW 21.6 (H) 11 - 15 % [facility] Platelet Count 154 150 - 400 K/UL [facility] MPV 13.3 (H) 7 - 11 FL [facility] Nucleated RBCs 19 K/UL [facility] Segmented 68 41 - 77 % [facility] Neutrophils Lymphocytes 18 (L) 24 - 44 % [facility] Monocytes 10 4 - 12 % [facility] Eosinophil 4 0 - 5 % [facility] ANISO PRESENT [facility] HYPO PRESENT [facility] POIK PRESENT [facility] POLY PRESENT [facility] Ovalocyte PRESENT [facility] MACRO PRESENT [facility] Target PRESENT [facility] Platelet NORMAL [facility] Estimate Absolute 13.80 (H) 1.8 - 7.0 K/UL [facility] Neutrophil Count Manual Performing Organization Address City/State/Zipcode Phone Number [facility] [address] [place] [address] * COMPREHENSIVE METABOLIC PANEL (06/10/2018 4:58 AM CDT) Sodium 142 137 - 147 MMOL/L [facility] Potassium 3.9 3.5 - 5.1 MMOL/L [facility] Chloride 102 98 - 110 MMOL/L [facility] Glucose 111 (H) 70 - 100 MG/DL [facility] Blood Urea 16 7 - 25 MG/DL [facility] Nitrogen Creatinine 0.75 0.4 - 1.00 MG/DL [facility] Calcium 8.7 8.5 - 10.6 MG/DL [facility] Total Protein 6.0 6.0 - 8.0 G/DL [facility] Total Bilirubin 1.9 (H) 0.3 - 1.2 MG/DL [facility] Albumin 3.3 (L) 3.5 - 5.0 G/DL [facility] Alk Phosphatase 65 25 - 110 U/L [facility] AST (SGOT) 21 7 - 40 U/L [facility] CO2 32 (H) 21 - 30 MMOL/L [facility] ALT (SGPT) 10 7 - 56 U/L [facility] Anion Gap 8 3 - 12 [facility] eGFR Non >60 >60 mL/min [facility] Comment: [place] The eGFR is not validated for use in drug dosing adjustments.Continue to use estimated creatinine clearance per dosing reference text.Please contact the Clinical Pharmacist for questions. eGFR >60 >60 mL/min [facility] [place] Comment: The eGFR is not validated for use in drug dosing adjustments.Continue to use estimated creatinine clearance per dosing reference text.Please contact the Clinical Pharmacist for questions. Performing Organization Address City/[facility]/Zipcode Phone Number MAIN LAB [address] [place] [address] * PTT (APTT) (06/10/2018 4:58 AM CDT) APTT 30.6 24.0 - 36.5 SEC MAIN LAB Specimen Blood Performing Organization Address City/[facility] Phone Number [facility] [address] [place] [address] * POC GLUCOSE (06/09/2018 9:49 PM CDT) Glucose, POC 154 (H) 70 - 100 MG/DL [facility] Performing Organization Address [facility] Phone Number [facility] [address] [place] [address] * POC GLUCOSE (06/09/2018 6:11 PM CDT) Glucose, POC 109 (H) 70 - 100 MG/DL [facility] Performing Organization Address [facility] Phone Number [facility] [address] [place] [address] * POC GLUCOSE (06/09/2018 1:27 PM CDT) Glucose, POC 82 70 - 100 MG/DL [facility] Performing Organization Address [facility] Phone Number MAIN LAB [address] [place] [address] * US ABDOMEN COMPLETE (06/09/2018 12:44 PM [...] limitations B: Moderate limitations C: Severe limitations https://www.acr.org/Clinical-Resources/Oygvaeqkm-bwn-Aori-Systems/LI-RADS Finalized by Gustavo Grace M.D. on 06/09/2018 [...] limitations B: Moderate limitations C: Severe limitations https://www.acr.org/Clinical-Resources/Andctwfli-pym-Nymr-Systems/LI-RADS Finalized by Gustavo Grace M.D. on 06/09/2018 2:22 PM. Dictated by Gustavo Grace M.D. on 06/09/2018 12:58 PM. Performing Organization Address City/State/Zipcode Phone Number RAD RESULTS * POC GLUCOSE (06/09/2018 8:24 AM CDT) Glucose, POC 79 70 - 100 MG/DL MAIN LAB Performing Organization Address City/State/Zipcode Phone Number MAIN [facility] [address] [place] [address] * POC GLUCOSE (06/09/2018 7:21 AM CDT) Glucose, POC 84 70 - 100 MG/DL [facility] Performing Organization Address [facility] Phone Number [facility] [address] [place] [address] * POC GLUCOSE (06/09/2018 6:52 AM CDT) Glucose, POC 62 (L) 70 - 100 MG/DL [facility] Performing Organization Address [facility] Phone Number [facility] [address] [place] [address] * COMPREHENSIVE METABOLIC PANEL (06/09/2018 6:38 AM CDT) Sodium 143 137 - 147 MMOL/L [facility] Potassium 3.3 (L) 3.5 - 5.1 MMOL/L [facility] Chloride 100 98 - 110 MMOL/L [facility] Glucose 58 (L) 70 - 100 MG/DL [facility] Blood Urea 13 7 - 25 MG/DL [facility] Nitrogen Creatinine 0.68 0.4 - 1.00 MG/DL [facility] Calcium 8.4 (L) 8.5 - 10.6 MG/DL [facility] Total Protein 6.0 6.0 - 8.0 G/DL [facility] Total Bilirubin 2.0 (H) 0.3 - 1.2 MG/DL [facility] Albumin 3.3 (L) 3.5 - 5.0 G/DL [facility] Alk Phosphatase 68 25 - 110 U/L [facility] AST (SGOT) 22 7 - 40 U/L [facility] CO2 36 (H) 21 - 30 MMOL/L [facility] ALT (SGPT) 13 7 - 56 U/L [facility] Anion Gap 7 3 - 12 [facility] eGFR Non >60 >60 mL/min [facility] Comment: [place] The eGFR is not validated for use in drug dosing adjustments.Continue to use estimated creatinine clearance per dosing reference text.Please contact the Clinical Pharmacist for questions. eGFR >60 >60 mL/min [facility] [place] Comment: The eGFR is not validated for use in drug dosing adjustments.Continue to use estimated creatinine clearance per dosing reference text.Please contact the Clinical Pharmacist for questions. Specimen Blood Performing Organization Address City/[facility]/Zipcode Phone Number [facility] [address] [place] [address] * PTT (APTT) (06/09/2018 6:38 AM CDT) APTT 28.7 24.0 - 36.5 SEC MAIN LAB Specimen Blood Performing Organization Address City/[facility] Phone Number [facility] [address] [place] [address] * CBC AND DIFF (06/09/2018 6:38 AM CDT) Pathologist [facility] White Blood 19.8 (H)Comment: Adjusted for 4.5 - 11.0 K/UL [facility] Cells Nucleated RBC's RBC 3.15 (L) 4.0 - 5.0 M/UL [facility] Hemoglobin 9.1 (L) 12.0 - 15.0 GM/DL [facility] Hematocrit 28.2 (L) 36 - 45 % [facility] MCV 89.6 80 - 100 FL [facility] MCH 28.8 26 - 34 PG [facility] MCHC 32.1 32.0 - 36.0 G/DL [facility] RDW 21.5 (H) 11 - 15 % [facility] Platelet Count 182 150 - 400 K/UL [facility] MPV 12.6 (H) 7 - 11 FL [facility] Nucleated RBCs 31 K/UL [facility] Segmented 61 41 - 77 % [facility] Neutrophils Bands 2 0 - 10 % [facility] Lymphocytes 19 (L) 24 - 44 % [facility] Monocytes 13 (H) 4 - 12 % [facility] Eosinophil 5 0 - 5 % [facility] ANISO PRESENT MAIN LAB HYPO PRESENT MAIN LAB POIK PRESENT MAIN LAB Ovalocyte PRESENT MAIN LAB Target PRESENT MAIN LAB Platelet NORMAL MAIN LAB Estimate Absolute 13.98 (H) 1.8 - 7.0 K/UL MAIN [facility] Neutrophil Count Manual Specimen Blood Performing Organization Address City/[facility]/Zipcode Phone Number [facility] [address] [place] [address] * POC GLUCOSE (06/08/2018 10:12 PM CDT) Pathologist [facility] Glucose, POC 109 (H) 70 - 100 MG/DL [facility] Performing Organization Address City/[facility]/Zipcode Phone Number [facility] [address] [place] [address] * POC GLUCOSE (06/08/2018 6:34 PM CDT) Glucose, POC 107 (H) 70 - 100 MG/DL [facility] Performing Organization Address [facility]/Zipcode Phone Number [facility] [address] [place] [address] * GLUCOSE, RANDOM (06/08/2018 4:03 PM CDT) Glucose 116 (H) 70 - 100 MG/DL MAIN LAB Specimen Blood Performing Organization Address [facility] Phone Number [facility] [address] [place] [address] * POC GLUCOSE (06/08/2018 11:46 AM CDT) Glucose, POC 92 70 - 100 MG/DL MAIN LAB Performing Organization Address [facility] Phone Number [facility] [address] [place] [phone] * IR ASPIRATION/DRAIN (06/08/2018 8:22 AM CDT) [...] ultrasound-guided paracentesis: History: Ascites. Technique and Findings: Abe Stanley [...] expressed in this report Performing Organization Address [facility] Phone Number RAD RESULTS * PTT (APTT) (06/08/2018 6:04 AM CDT) APTT 28.0 24.0 - 36.5 SEC MAIN LAB Specimen Blood Performing Organization Address [facility] Phone Number MAIN LAB [address] [place] [address] * STREPTOCOCCUS PNEUMO AG, URINE (06/08/2018 3:20 AM CDT) Battery Name STREP PNEUMO AG, UR MAIN LAB Specimen URINE MAIN LAB Description Special NONE MAIN LAB Requests Antigen NEGATIVE MAIN LAB Report Status FINAL MAIN LAB 06/08/2018 Specimen Urine Performing Organization Address [facility] Phone Number MAIN LAB [address] [place] [address] * LEGIONELLA ANTIGEN URINE,RAN (06/08/2018 3:20 AM CDT) Battery Name LEGIONELLA URINE ANTIGEN MAIN LAB Specimen URINE MAIN LAB Description Special NONE MAIN LAB Requests Antigen NEGATIVE MAIN LAB Report Status FINAL MAIN LAB 06/08/2018 Specimen Urine - Urine Performing Organization Address [facility] Phone Number MAIN LAB [address] [place] [address] * CULTURE-URINE W/SENSITIVITY (06/08/2018 3:20 AM CDT) Battery Name URINE CULTURE MAIN LAB Specimen URINE MAIN LAB Description Special NONE [facility] Requests Culture <10,000 organisms/ml MAIN LAB CONTAMINANT Report Status FINAL MAIN LAB 06/09/2018 Specimen Urine - Urine Performing Organization Address [facility] Phone Number MAIN [facility] [address] [place] [address] * RVP VIRAL PANEL PCR (06/08/2018 1:45 AM CDT) Specimen Source NASOPHARYNGEAL SWAB MAIN LAB This assay uses analyte specific reagents and has not been cleared by the [place] Food and Drug Administration.The performance characteristics were determined by the [facility]. Adenovirus NOT DETECTED [facility] MAIN [...] DETECTED [facility] Bordetella NOT DETECTED [facility] Pertussis Chlamydophila NOT DETECTED [facility] Pneumoniae Mycoplasma NOT DETECTED MAIN LAB Pneumoniae Specimen Nasopharyngeal Swab Performing Organization Address City/[facility]/Zipcode Phone Number MAIN LAB [address] [place] [address] * CULTURE-BLOOD W/SENSITIVITY (06/08/2018 1:45 AM CDT) Battery Name BLOOD CULTURE MAIN LAB Specimen BLOOD MAIN LAB Description LEFT ANTECUBITAL Special NONE [facility] Requests Culture NO GROWTH 5 DAYS [facility] Report Status FINAL [facility] 06/14/2018 Specimen Blood Performing Organization Address City/[facility]/Zipcode Phone Number MAIN LAB [address] [place] [address] * CHEST SINGLE VIEW (06/08/2018 1:19 AM CDT) Impressions Performed At Resolution of medial right lung apex consolidation. Persistent mild cardiomegaly [facility] RESULTS with findings of CHF, bibasilar consolidations and small left pleural effusion. Finalized by Kalpesh Evans M.D. on 06/08/2018 9:58 AM. Dictated by Kalpesh Evans M.D. on 06/08/2018 9:57 AM. Narrative Performed At Single view of the chest [facility] RESULTS Clinical history: Pneumonia. Findings: Comparison chest film: November 14, 2016 The heart size is normal. There is mild pulmonary vascular congestion. Mild bibasilar consolidations are noted with persistent small left pleural effusion. No pneumothorax is identified. Previously identified focal consolidation in the medial right apex has resolved. Procedure Note Interface, Radiant Results - 06/08/2018 10:01 AM CDT Single view of the chest Clinical history: Pneumonia. Findings: Comparison chest film: November 14, 2016 The heart size is normal. There is mild pulmonary vascular congestion. Mild bibasilar consolidations are noted with persistent small left pleural effusion. No pneumothorax is identified. Previously identified focal consolidation in the medial right apex has resolved. IMPRESSION Resolution of medial right lung apex consolidation. Persistent mild cardiomegaly with findings of CHF, bibasilar consolidations and small left pleural effusion. Finalized by Kalpesh Evans M.D. on 06/08/2018 9:58 AM. Dictated by Kalpesh Evans M.D. on 06/08/2018 9:57 AM. Performing Organization Address [facility] Phone Number RAD RESULTS * PTT (APTT) (06/08/2018 1:00 AM CDT) APTT 24.1 24.0 - 36.5 SEC MAIN LAB Specimen Blood Performing Organization Address [facility] Phone Number MAIN LAB [address] [place] [address] * ALPHA FETO PROTEIN (AFP) (06/08/2018 1:00 AM CDT) Alpha Feto 3.0 0.0 - 15.0 NG/ML MAIN LAB Protein Specimen Blood Performing Organization Address [facility] Phone Number MAIN LAB [address] [place] [address] * INFLUENZA A/B AG (RAPID TEST) (06/08/2018 1:00 AM CDT) Battery Name INFLUENZA A/B ANTIGEN [facility]IN [facility] Specimen NASOPHARYNGEAL SWAB MAIN LAB Description Special NONE [facility] MAIN LAB Requests Direct Antigen NEGATIVE FOR INFLUENZA A/B [facility]IN [facility] Report Status FINAL MAIN LAB 06/08/2018 Specimen Nasopharyngeal Swab Performing Organization Address [facility] Phone Number MAIN LAB [address] [place] [address] * PROCALCITONIN (06/08/2018 1:00 AM CDT) Procalcitonin 0.09 <0.10 NG/ML MAIN LAB Specimen Blood Performing Organization Address City/[facility] Phone Number [facility] [address] [place] [address] * TSH WITH FREE T4 REFLEX (06/08/2018 1:00 AM CDT) TSH 1.120 0.35 - 5.00 MCU/ML [facility]IN [facility] Specimen Blood Performing Organization Address [facility] Phone Number MAIN LAB [address] [place] [address] * BNP (B-TYPE NATRIURETIC PEPTI) (06/08/2018 1:00 AM CDT) B Type 236.0 (H) 0 - 100 PG/ML [facility]IN [facility] Natriuretic Peptide Specimen Blood Performing Organization Address [facility] Phone Number MAIN LAB [address] [place] [address] * LIPID PROFILE (06/08/2018 1:00 AM CDT) [...] 130 mg/dL. Specimen Blood Performing Organization Address [facility] Phone Number MAIN LAB [address] [place] [address] * HEMOGLOBIN A1C (06/08/2018 1:00 AM CDT) Hemoglobin A1C 5.8 4.0 - 6.0 % [facility] Comment: The ADA recommends that most patients with type 1 and type 2 diabetes maintain an A1c level <7%. Specimen Blood Performing Organization Address [facility] Phone Number MAIN LAB [address] [place] [address] * COMPREHENSIVE METABOLIC PANEL (06/08/2018 1:00 AM CDT) Sodium 142 137 - 147 MMOL/L [facility]IN [facility] Potassium 4.0 3.5 - 5.1 MMOL/L [facility] Chloride 105 98 - 110 MMOL/L [facility] Glucose 124 (H) 70 - 100 MG/DL [facility] Blood Urea 17 7 - 25 MG/DL [facility] Nitrogen Creatinine 0.74 0.4 - 1.00 MG/DL [facility] Calcium 8.4 (L) 8.5 - 10.6 MG/DL [facility] Total Protein 5.9 (L) 6.0 - 8.0 G/DL [facility] Total Bilirubin 2.3 (H) 0.3 - 1.2 MG/DL [facility] Albumin 3.4 (L) 3.5 - 5.0 G/DL [facility] Alk Phosphatase 66 25 - 110 U/L [facility]IN [facility] AST (SGOT) 31 7 - 40 U/L [facility] CO2 31 (H) 21 - 30 MMOL/L [facility] ALT (SGPT) 15 7 - 56 U/L [facility]IN [facility] Anion Gap 6 3 - 12 MAIN LAB eGFR Non >60 >60 mL/min MAIN LAB Comment: [place] The eGFR is not validated for use in drug dosing adjustments.Continue to use estimated creatinine clearance per dosing reference text.Please contact the Clinical Pharmacist for questions. eGFR >60 >60 mL/min [facility] [place] Comment: The eGFR is not validated for use in drug dosing adjustments.Continue to use estimated creatinine clearance per dosing reference text.Please contact the Clinical Pharmacist for questions. Specimen Blood Performing Organization Address City/[facility]/Zipcode Phone Number [facility] [address] [place] [address] * PROTIME INR (PT) (06/08/2018 1:00 AM CDT) INR 1.7 (H) 0.8 - 1.2 [facility] Specimen Blood Performing Organization Address City/[facility]/Zipcode Phone Number [facility] [address] [place] [address] * CBC AND DIFF (06/08/2018 1:00 AM CDT) White Blood 25.6 (H) 4.5 - 11.0 K/UL [facility] Cells RBC 3.08 (L) 4.0 - 5.0 M/UL [facility] Hemoglobin 8.9 (L) 12.0 - 15.0 GM/DL [facility] MAIN [facility] Hematocrit 28.2 (L) 36 - 45 % [facility]IN [facility] MCV 91.5 80 - 100 FL [facility]IN [facility] MCH 28.9 26 - 34 PG [facility]IN [facility] MCHC 31.6 (L) 32.0 - 36.0 G/DL [facility]IN [facility] RDW 21.7 (H) 11 - 15 % [facility] Platelet Count 255 150 - 400 K/UL [facility] MPV 12.8 (H) 7 - 11 FL [facility]IN [facility] Nucleated RBCs 28 K/UL [facility] Segmented 71 41 - 77 % [facility] Neutrophils Bands 1 0 - 10 % [facility] Lymphocytes 11 (L) 24 - 44 % [facility] Monocytes 17 (H) 4 - 12 % [facility] ANISO PRESENT [facility] MAIN LAB POIK PRESENT KU MAIN LAB POLY PRESENT [facility]U MAIN LAB Ovalocyte PRESENT [facility] MAIN [facility] Target PRESENT [facility] MAIN [facility] Platelet NORMAL [facility]IN [facility] Estimate Absolute 18.44 (H) 1.8 - 7.0 K/UL [facility] Neutrophil Count Manual Specimen Blood Performing Organization Address City/State/Zipcode Phone Number [facility] [address] [place] [address] * CT ABD/PEL EXTERNAL IMAGING (06/07/2018 12:05 AM CDT) Narrative Performed At This order has been auto finalized and does not contain a result. * ECG-SCAN (06/07/2018 12:00 AM CDT) Narrative Performed At Ordered by an unspecified provider. * GENERAL RAD CHEST EXTERNAL IMAGING (06/07/2018 12:00 AM CDT) Narrative Performed At This order has been auto finalized and does not contain a result. * MRI ABDOMEN EXTERNAL IMAGING (07/22/2016 12:00 AM CDT) Narrative Performed At This order has been auto finalized and does not contain a result. documented in this encounter Visit Diagnoses Diagnosis Hepatic encephalopathy (HCC) - Primary Hepatic encephalopathy Acute hypoxemic respiratory failure (HCC) Community acquired pneumonia, unspecified laterality History of hepatitis C Personal history of other infectious and parasitic disease Idiopathic thrombocytopenic purpura (HCC) Immune thrombocytopenic purpura Morbid obesity (HCC) Morbid obesity Pneumonia due to infectious organism, unspecified laterality, unspecified part of lung Thrombocytopenia (HCC) Thrombocytopenia, unspecified Type 2 diabetes mellitus with complication, with long-term current use of insulin (HCC) Pneumonia Pneumonia, organism unspecified Type 2 diabetes mellitus with complication (HCC) Chronic respiratory failure with hypoxia, on home oxygen therapy (HCC) End stage liver disease (HCC) VALERIO (nonalcoholic steatohepatitis) Other chronic nonalcoholic liver disease S/P splenectomy Other acquired absence of organ Anemia of chronic disease Anemia of other chronic disease documented in this encounter Admitting Diagnoses Diagnosis Hepatic encephalopathy (HCC) Hepatic encephalopathy Pneumonia Pneumonia, organism unspecified documented in this encounter Administered Medications Action Date Dose Rate Site Medication Order MAR Action 06/12/2018 2:12 PM CDT 500 mg acetaminophen (TYLENOL) tablet 500 mg Given 500 mg, Oral, EVERY 8 HOURS, First dose on Tue06/08/18 at 1630, Until Discontinued, TOTAL ACETAMINOPHEN DOSE NOT TO EXCEED 4GM DAILY, 500 mg Given 06/12/2018 6:06 AM CDT 500 mg Given 06/11/2018 9:01 PM CDT 06/15/2018 7:27 AM CDT 500 mg acetaminophen (TYLENOL) tablet 500 mg Given 500 mg, Oral, EVERY 8 HOURS, First dose on Tue06/12/18 at 2200, Until Discontinued, TOTAL ACETAMINOPHEN DOSE NOT TO EXCEED 2GM DAILY, 500 mg Given 06/14/2018 9:08 PM CDT 500 mg Given 06/14/2018 2:28 PM CDT 06/11/2018 2:40 PM CDT amitriptyline/gabapentin/emu oil(#) Given 4/4/10 % topical cream Topical, EVERY 8 HOURS, First dose on Tue06/08/18 at 1445, Until Discontinued, Apply to painful areas, Given 06/11/2018 5:56 AM CDT Given 06/10/2018 11:38 PM CDT 06/09/2018 3:42 PM CDT 1 lozenge benzocaine/menthol (CHLORASEPTIC) Given lozenge 1 lozenge 1 lozenge, Oral, EVERY 2 HOURS PRN, Starting Tue06/09/18 at 1324, Until Tue06/15/18 at 1427, Mouth/Throat Pain 06/11/2018 9:01 PM CDT 100 mg benzonatate (TESSALON PERLES) capsule Given 100 mg 100 mg, Oral, AT BEDTIME DAILY, First dose on Tue06/11/18 at 2100, Until Discontinued 06/13/2018 8:11 AM CDT 100 mg benzonatate (TESSALON PERLES) capsule Given 100 mg 100 mg, Oral, THREE TIMES DAILY, First dose on Tue06/12/18 at 1630, Until Discontinued 100 mg Given 06/12/2018 8:10 PM CDT 100 mg Given 06/12/2018 4:04 PM CDT 06/15/2018 8:43 AM CDT 200 mg benzonatate (TESSALON PERLES) capsule Given 200 mg 200 mg, Oral, THREE TIMES DAILY, First dose on Tue06/13/18 at 1500, Until Discontinued 200 mg Given 06/14/2018 9:07 PM CDT 200 mg Given 06/14/2018 2:28 PM CDT 06/15/2018 8:43 AM CDT 1 mg bumetanide (BUMEX) tablet 1 mg Given 1 mg, Oral, DAILY, First dose on Tue06/11/18 at 1115, Until Discontinued 1 mg Given 06/14/2018 9:09 AM CDT 1 mg Given 06/13/2018 8:11 AM CDT 06/12/2018 1:10 AM CDT 2 g cefTRIAXone (ROCEPHIN) IVP 2 g Given 2 g, Intravenous, EVERY 24 HOURS, First dose on Elida 06/08/18 at 0030, Until Discontinued, INSTR: IV PUSH -- RECONSTITUTE EACH 1 GM WITH 10 MLS 0.9% NACL , 2 g Given 06/11/2018 12:45 AM CDT 2 g Given 06/10/2018 12:50 AM CDT 06/11/2018 5:08 PM CDT 2 g diclofenac (VOLTAREN) 1 % topical gel 2 Given g 2 g, Topical, FOUR TIMES DAILY, First dose on Tue06/09/18 at 1300, Until Discontinued, Apply to lumbar area. Measure dose of gel with dosing card (provided)., 2 g Given 06/10/2018 12:34 PM CDT 2 g Given 06/10/2018 9:43 AM CDT 06/08/2018 12:31 PM CDT 100 mg 510 mL/hr doxycycline (VIBRAMYCIN) 100 mg in Given - New dextrose 5% (D5W) 500 mL IVPB Bag 100 mg, Intravenous, 510 mL, Administer over 1 Hours, EVERY 12 HOURS, First dose on Elida 06/08/18 at 0030, Until Discontinued, PROTECT FROM LIGHT, 100 mg 510 mL/hr Given - New Bag 06/08/2018 12:58 AM CDT 06/12/2018 8:38 AM CDT 100 mg doxycycline (VIBRAMYCIN) tablet 100 mg Given 100 mg, Oral, TWICE DAILY, First dose on Elida 06/08/18 at 2100, Until Discontinued, NURSING: Please educate patient and document: Give 1 hour before or 2 hours after meals. If patient is receiving tube feedings, hold tube feedings 1 hour before and 2 hours after dose. Do not give within 2 hours of antacids, magnesium, calcium, iron, zinc, or vitamins containing these minerals., 100 mg Given 06/11/2018 9:01 PM CDT 100 mg Given 06/11/2018 9:03 AM CDT 06/13/2018 8:11 AM CDT 100 mg doxycycline (VIBRAMYCIN) tablet 100 mg Given 100 mg, Oral, TWICE DAILY, 2 doses, First dose on Tue06/12/18 at 2100, Last dose on Tue06/13/18 at 0900, NURSING: Please educate patient and document: Give 1 hour before or 2 hours after meals. If patient is receiving tube feedings, hold tube feedings 1 hour before and 2 hours after dose. Do not give within 2 hours of antacids, magnesium, calcium, iron, zinc, or vitamins containing these minerals., 100 mg Given 06/12/2018 8:10 PM CDT 06/15/2018 8:44 AM CDT 50 mg eltrombopag(+) (PROMACTA) tablet 50 mg Given 50 mg, Oral, DAILY, First dose on Elida 06/08/18 at 1300, Until Discontinued 50 mg Given 06/14/2018 9:10 AM CDT 50 mg Given 06/13/2018 8:10 AM CDT 06/14/2018 9:09 PM CDT 40 mg Abdomen:LLQ enoxaparin (LOVENOX) syringe 40 mg Given 40 mg, Subcutaneous, TWICE DAILY, First dose on Tue06/09/18 at 2100, Until Discontinued, For patients undergoing surgery: Consult physician in advance -- enoxaparin is an anticoagulant and may need to be held for 12hr prior to surgery or invasive procedures. NOTE: This is a HIGH ALERT Medication., 40 mg Abdominal Tissue Given 06/14/2018 11:01 AM CDT 06/15/2018 8:42 AM CDT 20 mg fluoxetine (PROZAC) capsule 20 mg Given 20 mg, Oral, DAILY, First dose on Tue06/09/18 at 1445, Until Discontinued 20 mg Given 06/14/2018 9:10 AM CDT 20 mg Given 06/13/2018 8:11 AM CDT 06/11/2018 9:03 AM CDT 40 mg furosemide (LASIX) injection 40 mg Given 40 mg, 4 mL, Intravenous, TWICE DAILY, First dose on Tue06/08/18 at 0215, Until Discontinued, PROTECT FROM LIGHT, 40 mg Given 06/10/2018 5:34 PM CDT 40 mg Given 06/10/2018 11:27 AM CDT 06/10/2018 5:35 PM CDT 100 mg guaiFENesin (ROBITUSSIN) oral solution Given 100 mg 100 mg, Oral, EVERY 4 HOURS PRN, Starting Elida 06/08/18 at 0211, Until Elida 06/15/18 at 1427, Congestion 100 mg Given 06/09/2018 8:15 AM CDT 100 mg Given 06/08/2018 8:44 PM CDT 06/08/2018 2:30 AM CDT 100 mg GUAIFENESIN 100 MG/5 ML PO LIQD (Cabinet Given Override) NOW, 1 dose, Tue06/08/18 at 0230, Created by cabinet override, Created by cabinet override, 06/12/2018 5:04 PM CDT 1 Units Abdominal Tissue insulin aspart U-100 (NOVOLOG FLEXPEN) Given injection PEN 0-6 Units 0-6 Units, Subcutaneous, BEFORE MEALS AND 2200, First dose on Tue06/10/18 at 0845, Until Discontinued, -POC glucose 181-220mg/dL at , [...] administer 4 units. -POC glucose >400mg/dL at 07, 11, 17 administer 6 units insulin, at 22, 03* [...] request. DO NOT uncheck "Do not dispense", 1 Units Abdominal Tissue Given 06/12/2018 12:04 PM CDT 5 Units Arm, Left Given 06/11/2018 6:20 PM CDT 06/12/2018 8:40 AM CDT 4 Units Arm, Right insulin aspart U-100 (NOVOLOG FLEXPEN) Given injection PEN 4 Units 4 Units, Subcutaneous, THREE TIMES DAILY WITH MEALS, First dose on Tue06/11/18 at 1300, Until Discontinued, Hold if NPO for procedure, unable to eat, or if FSBS < 70 mg/dL Give at start of meal. NOTE: This is a HIGH ALERT Medication., Dispense pens manually with initial order and then upon request. DO NOT uncheck "Do not dispense", 4 Units Arm, Left Given 06/11/2018 6:21 PM CDT 4 Units Arm, Right Given 06/11/2018 12:20 PM CDT 06/13/2018 8:19 AM CDT 6 Units Abdominal Tissue insulin aspart U-100 (NOVOLOG FLEXPEN) Given injection PEN 6 Units 6 Units, Subcutaneous, THREE TIMES DAILY WITH MEALS, First dose on Tue06/12/18 at 1200, Until Discontinued, Hold if NPO for procedure, unable to eat, or if FSBS < 70 mg/dL Give at start of meal. NOTE: This is a HIGH ALERT Medication., Dispense pens manually with initial order and then upon request. DO NOT uncheck "Do not dispense", 6 Units Abdominal Tissue Given 06/12/2018 5:05 PM CDT 6 Units Abdominal Tissue Given 06/12/2018 12:04 PM CDT 06/15/2018 8:46 AM CDT 8 Units Abdomen:LLQ insulin aspart U-100 (NOVOLOG FLEXPEN) Given injection PEN 8 Units 8 Units, Subcutaneous, THREE TIMES DAILY WITH MEALS, First dose on Tue06/13/18 at 1200, Until Discontinued, Hold if NPO for procedure, unable to eat, or if FSBS < 70 mg/dL Give at start of meal. NOTE: This is a HIGH ALERT Medication., Dispense pens manually with initial order and then upon request. DO NOT uncheck "Do not dispense", 8 Units Arm, Right Given 06/14/2018 6:02 PM CDT 8 Units Arm, Right Given 06/14/2018 12:42 PM CDT 06/14/2018 11:38 PM CDT 40 Units Arm, Left insulin glargine (LANTUS SOLOSTAR, Given BASAGLAR) injection PEN 40 Units 40 Units, Subcutaneous, AT BEDTIME DAILY, First dose on Tue06/09/18 at 2100, Until Discontinued, -- Do not mix with other insulins -- NOTE: This is a HIGH ALERT Medication., 40 Units Arm, Right Given 06/13/2018 9:06 PM CDT 40 Units Arm, Right Given 06/12/2018 9:48 PM CDT 06/08/2018 8:46 PM CDT 50 Units Arm, Right insulin glargine (LANTUS SOLOSTAR, Given BASAGLAR) injection PEN 50 Units 50 Units, Subcutaneous, AT BEDTIME DAILY, First dose on Tue06/08/18 at 0015, Until Discontinued, -- Do not mix with other insulins -- NOTE: This is a HIGH ALERT Medication., 50 Units Arm, Left Given 06/08/2018 1:13 AM CDT 06/14/2018 9:08 PM CDT 20 g lactulose oral solution 20 g Given 20 g (30 mL), Oral, THREE TIMES DAILY, First dose on Tue06/08/18 at 0900, Until Discontinued 20 g Given 06/14/2018 2:28 PM CDT 20 g Given 06/14/2018 9:10 AM CDT 06/12/2018 1:10 AM CDT 1 patch Hip, Right lidocaine (LIDODERM) 5 % topical patch 1 Patch/Topica patch l Applied 1 patch, Topical, Administer over 12 Hours, DAILY, First dose on Tue06/08/18 at 0130, Until Discontinued, NURSING PLEASE NOTE: Apply patch ONCE DAILY to back and REMOVE after designated duration. Apply only to intact skin. Patch may be cut to fit affected area., 1 patch Back Patch/Topical Applied 06/11/2018 12:45 AM CDT 1 patch Back Patch/Topical Applied 06/10/2018 12:50 AM CDT 06/15/2018 8:43 AM CDT 10 mg lisinopril (PRINIVIL; ZESTRIL) tablet 10 Given mg 10 mg, Oral, DAILY, First dose on Tue06/13/18 at 0945, Until Discontinued 10 mg Given 06/14/2018 9:09 AM CDT 10 mg Given 06/13/2018 10:04 AM CDT 06/15/2018 8:44 AM CDT 10 mg loratadine (CLARITIN) tablet 10 mg Given 10 mg, Oral, DAILY, First dose on Tue06/09/18 at 1445, Until Discontinued 10 mg Given 06/14/2018 9:09 AM CDT 10 mg Given 06/13/2018 8:11 AM CDT 06/10/2018 11:36 AM CDT nystatin (NYSTOP) topical powder Given Topical, TWICE DAILY PRN, Starting Tue06/08/18 at 1327, Until Tue06/15/18 at 1427, for rash under breast, Apply to under breast, Given 06/09/2018 11:55 AM CDT Given 06/08/2018 3:15 PM CDT 06/14/2018 2:28 PM CDT 5 mg oxyCODONE (ROXICODONE, OXY-IR) tablet 5 Given mg 5 mg, Oral, ONCE, 1 dose, Tue06/14/18 at 1400 06/15/2018 12:03 PM CDT 5 mg oxyCODONE (ROXICODONE, OXY-IR) tablet 5 Given mg 5 mg, Oral, EVERY 4 HOURS PRN, Starting Tue06/14/18 at 1347, Until Tue06/15/18 at 1427, Pain PO 5 mg Given 06/15/2018 8:42 AM CDT 5 mg Given 06/15/2018 2:21 AM CDT 06/09/2018 11:53 AM CDT 60 mEq potassium chloride SR (K-DUR) tablet 60 Given mEq 60 mEq, Oral, ONCE, 1 dose, Tue06/09/18 at 1045 06/15/2018 8:42 AM CDT 550 mg rifAXIMin (XIFAXAN) tablet 550 mg Given 550 mg, Oral, TWICE DAILY, First dose on Tue06/08/18 at 0015, Until Discontinued 550 mg Given 06/14/2018 9:07 PM CDT 550 mg Given 06/14/2018 9:09 AM CDT 06/15/2018 11:37 AM CDT 2 mg tiZANidine (ZANAFLEX) tablet 2 mg Given 2 mg, Oral, EVERY 8 HOURS PRN, Starting 06/10/18 at 1202, Until Tue06/15/18 at 1427, Muscle Cramps 2 mg Given 06/15/2018 2:21 AM CDT 2 mg Given 06/14/2018 3:42 PM CDT 06/14/2018 4:34 AM CDT 50 mg traMADol (ULTRAM) tablet 50 mg Given 50 mg, Oral, EVERY 12 HOURS PRN, Starting Tue06/13/18 at 1400, Until Tue06/14/18 at 1348, Pain PO 50 mg Given 06/13/2018 3:39 PM CDT documented in this encounter
--- OUTSIDE RECORDS SUMMARY | 2018-07-07 19:52 | XMS REPORT | Encounter Summary ---
Author Author [facility] Organization [facility] Address Unknown Phone Unavailable Care Team Providers Care Artificial Candy Maker Name Role Phone Santiago Torres MD PCP Encounter Details Care Team Description Date Type Department Cassy Jimenez RN End stage liver disease (HCC) (Primary Dx) 06/09/2018 Orders Only The [address] [address] Social History Date Tobacco Use Types Packs/Day [...] Status Date of Assessment Functional Status Response 06/08/2018 Does the patient have a hearing impairment: [...] as of this encounter Plan of Treatment Order Schedule Name Priority Associated Diagnoses Expected: 06/21/2018 (Approximate), Expires: 07/10/2018 COMPREHENSIVE METABOLIC PANEL Routine End stage liver disease (HCC) Expected: 06/19/2018 (Approximate), Expires: 07/10/2018 CBC Routine End stage liver disease (HCC) Expected: 06/19/2018 (Approximate), Expires: 07/10/2018 PROTIME INR (PT) Routine End stage liver disease (HCC) documented as of this encounter Visit Diagnoses Diagnosis End stage liver disease (HCC) - Primary documented in this encounter
--- OUTSIDE RECORDS SUMMARY | 2018-07-07 19:53 | XMS REPORT | Encounter Summary ---
Author Author [facility] Address Unknown Phone Unavailable Care Team Providers Care Safety Advisor Name Role Phone PCP Unavailable Encounter Details Date Type Department Care Team Description 06/29/2018 [facility], Transcribed Orders Diagnosis deferred Encounter [address] [facility] [place] [address] Resource [phone] Social History Tobacco Use Types Packs/Day Years Used Date Never Assessed Sex Assigned at Date Recorded Not on file as of this encounter Plan of Treatment Not on fileas of this encounter Procedures Procedure Name Priority Date/Time Associated Diagnosis Comments IMMATURE PLATELET Routine 06/29/2018 Diagnosis deferred Results for this FRACTION 12:31 PM CDT procedure are in the results section. in this encounter Results * Immature Platelet Fraction (06/29/2018 12:31 PM) Immature Platelet 40.0 (H) 1.1 - 7.1 % [facility] LABORATORIES Specimen Blood Performing Organization Address City/State/Zipcode Phone Number [facility] [address] [place] [address] LABORATORIES in this encounter Visit Diagnoses Diagnosis Diagnosis deferred Other unknown and unspecified cause of morbidity or mortality Admitting Diagnoses Diagnosis NO DX CODE
--- OUTSIDE RECORDS SUMMARY | 2018-07-07 19:53 | XMS REPORT | Encounter Summary ---
Author Author [facility] Organization [facility] Address Unknown Phone Unavailable Care Team Providers Care Soda Dry House Operator Name Role Phone Santiago Torres MD PCP Encounter Details Care Team Description Date Type Department 06/07/2018 Hospital [facility] Encounter [facility] [address] [id number] Social History Date Tobacco Use Types Packs/Day [...] Date/Time Associated Diagnosis GENERAL RAD CHEST Routine 06/07/2018 EXTERNAL IMAGING 12:00 AM CDT documented in this encounter Visit Diagnoses Not on filedocumented in this encounter
--- OUTSIDE RECORDS SUMMARY | 2018-07-07 19:53 | XMS REPORT | Encounter Summary ---
Author Author [facility] Organization [facility] Address Unknown Phone Unavailable Care Team Providers Care Egg Separator Name Role Phone Santiago Torres MD PCP Reason for Visit * Reason Comments Pt Ed Encounter Details Care Team Description Date Type Department Leah Koroma PHARMD 04/19/2018 Clinical The [address] [address] Social History Date Tobacco Use Types Packs/Day [...] impairment: No documented as of this encounter Progress Notes * Leah Koroma, DAVD - 04/19/2018 3:34 PM PBX OPERATOR Oral Chemotherapy Reassessment Note Appropriateness of Therapy Niecy Richey continues on eltombopag for the treatment of ITP. Cycle 1 start date was 12/2016. The regimen of 100 mg by mouth daily is appropriate to continue at this time. Per patient, outside labs from today showed platelets of 39,000. Her goal is 30, 000-40,000. No renal or hepatic dose adjustment is required at this time. Treatment will continue until progression or unacceptable toxicity. CBC w diff Lab Results Component Value Date/Time WBC 16.8 (H) 10/21/2017 11:42 AM RBC 3.16 (L) 10/21/2017 11:42 AM HGB 9.6 (L) 10/21/2017 11:42 AM HCT 28.5 (L) 10/21/2017 11:42 AM MCV 90.2 10/21/2017 11:42 AM MCH 30.2 10/21/2017 11:42 AM MCHC 33.5 10/21/2017 11:42 AM RDW 25.3 (H) 10/21/2017 11:42 AM PLTCT 10/21/2017 11:42 AM GIANT PLATELETS INTERFERING WITH PLATELET COUNT. PLATELET ESTIMATE IS 63./ KAF MPV 7.3 10/21/2017 11:42 AM Lab Results Component Value Date/Time NEUT 72 12/24/2016 08:47 AM ANC 7.22 (H) 10/21/2017 11:42 AM ANC 11.00 (H) 12/24/2016 08:47 AM LYMA 18 (L) 12/24/2016 08:47 AM ALC 2.80 12/24/2016 08:47 AM SIMEON 8 12/24/2016 08:47 AM AMC 1.20 (H) 12/24/2016 08:47 AM EOSA 1 12/24/2016 08:47 AM AEC 0.20 12/24/2016 08:47 AM BASA 1 12/24/2016 08:47 AM ABC 0.10 12/24/2016 08:47 AM Comprehensive Metabolic Profile Lab Results Component Value Date/Time NA 137 10/21/2017 11:42 AM K 4.2 10/21/2017 11:42 AM CL 108 10/21/2017 11:42 AM CO2 25 10/21/2017 11:42 AM GAP 4 10/21/2017 11:42 AM BUN 20 10/21/2017 11:42 AM CR 0.77 10/21/2017 11:42 AM GLU 106 (H) 10/21/2017 11:42 AM Lab Results Component Value Date/Time CA 9.1 10/21/2017 11:42 AM PO4 4.4 (H) 11/17/2016 03:03 AM ALBUMIN 3.7 10/21/2017 11:42 AM TOTPROT 6.9 10/21/2017 11:42 AM ALKPHOS 127 (H) 10/21/2017 11:42 AM AST 37 10/21/2017 11:42 AM ALT 13 10/21/2017 11:42 AM TOTBILI 2.2 (H) 10/21/2017 11:42 AM GFR >60 10/21/2017 11:42 AM GFRAA >60 10/21/2017 11:42 AM Creatinine clearance cannot be calculated (Patient's most recent lab result is older than the maximum 30 days allowed.) Response to Therapy Patients electronic medical record has been reviewed. No evidence of progression that would necessitate a change of therapy has been identified. Imaging: N/A Tumor Markers: N/A Adverse Effects Assessment Niecy Richey is not experiencing any significant adverse effects to this medication regimen. Adherence Assessment Niecy Richey reports missing 3 weeks worth of doses over the past 3 month(s) not related to toxicity. This was due to an insurance issue after the first of the year. Medication Reconciliation A medication history and reconciliation was performed (including prescription medications, supplements, over the counter medications, and herbal products). The medication list was updated and the patients current medication list is included below. Prior to Admission medications Medication Sig Start Date End Date Taking? Authorizing Provider acetaminophen (TYLENOL) 500 mg tablet Take 500 mg by mouth every 6 hours as needed for Pain. Max of 4,000 mg of acetaminophen in 24 hours. HISTORICAL PROVIDER amitriptyline (ELAVIL) 25 mg tablet Take 25 mg by mouth at bedtime daily. HISTORICAL PROVIDER bumetanide (BUMEX) 1 mg tablet Take 1 mg by mouth twice daily. HISTORICAL PROVIDER eltrombopag (PROMACTA) 50 mg tablet Take two tablets daily on an empty stomach ( at least 1 hour before or 2 hours after food). Separate antacids by at least 4 hours. 03/27/18 Lesli Baron, ASSOCIATE STORE MANAGER-COUNTY SUPERVISOR ergocalciferol (VITAMIN D-2) 50,000 unit capsule Take 2 capsules by mouth every 7 days. 10/24/17 Melida Scherer APRN gabapentin (NEURONTIN) 300 mg capsule Take 300 mg by mouth three times daily. HISTORICAL PROVIDER insulin aspart (NOVOLOG FLEXPEN) 100 unit/mL injection PEN Inject 18 Units under the skin three times daily with meals. Indications: Sliding Scale HISTORICAL PROVIDER insulin glargine (LANTUS SOLOSTAR) 100 unit/mL (3 mL) injection PEN Inject 50 Units under the skin at bedtime daily. Patient taking differently: Inject 50 Units under the skin twice daily. 11/17/16 India Mullins MD lisinopril (PRINIVIL; ZESTRIL) 10 mg tablet Take 1 tablet by mouth daily. India Mullins MD loratadine 10 mg cap Take 1 capsule by mouth daily. HISTORICAL PROVIDER oxyCODONE (ROXICODONE, OXY-IR) 5 mg tablet Take 1 Tab by mouth every 4 hours as needed for Pain HISTORICAL PROVIDER potassium chloride SR (K-DUR) 20 mEq tablet Take 1 tablet by mouth daily. Take with a meal and a full glass of water. 01/21/17 Lesli Baron APRN-SALONI PREDNISONE PO Take 10 mg by mouth. HISTORICAL PROVIDER rifAXIMin (XIFAXAN) 550 mg tablet Take 1 Tab by mouth twice daily. Indications: HEPATIC ENCEPHALOPATHY 08/19/16 Helio Chavez MD Drug-drug and drug-food interactions between the patients specialty medication and their medication list were assessed and reviewed with the patient. No significant drug-drug interactions were identified. The patient was instructed to speak with their health care provider and/or the oral chemotherapy pharmacist before starting any new drug, including prescription or over the counter, natural / herbal products, or vitamins. Allergies Allergen Reactions Dilaudid [Hydromorphone] UNKNOWN Pt reports dilaudid caused her to code Metformin UNKNOWN Reglan [Metoclopramide] UNKNOWN Reproductive Risk Assessment Niecy Richey is a 52 y.o. female As patient is a female not of child-bearing potential, education was not applicable. Risk Evaluation and Mitigation Strategy (REMS) Assessment No REMS is required for this medication. Follow-up Plan The patient was encouraged to call the oral chemotherapy pharmacist at [phone] with questions. This medication is considered low risk per our internal oral chemotherapy risk categorization and the patient will be contacted for education, toxicity check at 2 weeks, and reassessment annually, if applicable (low risk monitoring). Re-assessment has been completed. Next reassessment planned for 1 year(s). Leah Koroma, ALEN Oncology Clinical Pharmacist 04/19/2018 OPERATOR documented in this encounter Plan of Treatment Not on filedocumented as of this encounter Visit Diagnoses Not on filedocumented in this encounter
--- OUTSIDE RECORDS SUMMARY | 2018-07-07 19:53 | XMS REPORT | Clinical Summary ---
Author Author [facility] [place] [place] Address Unknown Phone Unavailable Care Team Providers Care Circular Clerk Name Role Phone PCP Unavailable Allergies Not on File Current Medications Not on file Active Problems Not on file Encounters Date Type Specialty Care Team Description 06/29/2018 [facility], Transcribed Orders Diagnosis deferred Encounter 06/29/2018 [facility], Transcribed Orders Diagnosis deferred Orders (Primary Dx) from Last 3 Months Social History Tobacco Use Types Packs/Day Years Used Date Never Assessed Sex Assigned at Date Recorded Not on file Last Filed Vital Signs Not on file Plan of Treatment Not on file Procedures Procedure Name Priority Date/Time Associated Diagnosis Comments IMMATURE PLATELET Routine 06/29/2018 Diagnosis deferred Results for this FRACTION 12:31 PM CDT procedure are in the results section. from Last 3 Months Results * Immature Platelet Fraction (06/29/2018 12:31 PM) Immature Platelet 40.0 (H) 1.1 - 7.1 % [facility] LABORATORIES Specimen Blood Performing Organization Address City/State/Zipcode Phone Number [facility] [address] [place], [place] [id number] [phone] LABORATORIES from Last 3 Months
--- OUTSIDE RECORDS SUMMARY | 2018-07-07 19:53 | XMS REPORT | Encounter Summary ---
Author Author [facility] Organization [facility] Address Unknown Phone Unavailable Care Team Providers Care Machine Tool Dresser Name Role Phone Santiago Torres MD PCP Encounter Details Care Team Description Date Type Department Lesli Baron, [facility] [address] [place], [place] [phone] Immune thrombocytopenia (HCC) (Primary Dx) 04/10/2018 Orders Only The [address] [address] Social History Date Tobacco Use Types Packs/Day [...] Order Schedule Name Priority Associated Diagnoses Expected: 04/11/2018 (Approximate), Expires: 04/10/2019 CBC AND DIFF Routine Immune thrombocytopenia (HCC) Expected: 04/11/2018 (Approximate), Expires: 04/10/2019 COMPREHENSIVE METABOLIC PANEL Routine Immune thrombocytopenia (HCC) documented as of this encounter Visit Diagnoses Diagnosis Immune thrombocytopenia (HCC) - Primary Other secondary thrombocytopenia documented in this encounter
--- OUTSIDE RECORDS SUMMARY | 2018-07-07 19:53 | XMS REPORT | Encounter Summary ---
Author Author [facility] Organization [facility] Address Unknown Phone Unavailable Care Team Providers Care Area Secretary Name Role Phone PCP Unavailable Encounter Details Date Type Department Care Team Description 06/29/2018 Transcribe [facility], Transcribed Orders Diagnosis deferred Orders [address] [facility] Admitting Provider (Primary Dx) [place] [address] Resource [phone] Social History Tobacco Use Types Packs/Day Years Used Date Never Assessed Sex Assigned at Date Recorded Not on file as of this encounter Plan of Treatment Not on fileas of this encounter Results * Immature Platelet Fraction (06/29/2018 12:31 PM) Immature Platelet 40.0 (H) 1.1 - 7.1 % [facility] LAB[facility]ATORIES Specimen Blood Performing Organization Address City/State/Zipcode Phone Number [facility] [address] [place] [address] LABORATORIES in this encounter Visit Diagnoses Diagnosis Diagnosis deferred - Primary Other unknown and unspecified cause of morbidity or mortality
--- OUTSIDE RECORDS SUMMARY | 2018-07-07 19:53 | XMS REPORT | Encounter Summary ---
Author Author [facility] Organization [facility] Address Unknown Phone Unavailable Care Team Providers Care Preparation Supervisor Name Role Phone Santiago Torres MD PCP Encounter Details Care Team Description Date Type Department Melida Scherer APRN [address] [address] 04/11/2018 Telephone The [facility] [address] [address] Social History Date Tobacco Use [...] encounter Miscellaneous Notes * Telephone Encounter - Almita Adler - 04/11/2018 9:31 AM ASSESSMENT ANALYST Pt lvm stating she saw PCP today and diagnosed with pneumonia so cancelling today's appt w/Melida. Return call to reschedule. SSMENT ANALYST documented in this encounter Plan of Treatment Not on filedocumented as of this encounter Visit Diagnoses Not on filedocumented in this encounter
[2018-07-07] MEDS ORDERED: PATIENT MAY USE OWN MED,SINGLE MED PO SCH (20:00)
[2018-07-07] MEDS: meTOprolol TARTRATE 25 MG (LOPRESSOR) TABLET PO SCH (20:46)
[2018-07-07] MEDS: AMITRIPTYLINE 25 MG (ELAVIL) TAB PO SCH (20:46)
[2018-07-07] MEDS: MAGNESIUM OXIDE (MAG-OX)400 MG TAB PO SCH (20:46)
[2018-07-07] MEDS: RIFAXIMIN 550 MG TABLET (XIFAXAN) PO SCH (20:47)
[2018-07-07] MEDS: LACTULOSE SYRUP 10GM/15ML (ENULOSE) 30ML UDC PO SCH (20:47)
[2018-07-07] MEDS: PREGABALIN 75 MG (LYRICA) CAP PO SCH (20:47)
[2018-07-07] MEDS: MICONAZOLE 2% POWDER (DESENEX AF) 90 GM TOP SCH (20:55)
[2018-07-07] MEDS ORDERED: NON-FORMULARY MEDICATION 1 EA EA (Insulin Glargine,Hum.rec.anlog (Lantus Solostar) 40 UNIT SQ SCH (21:00)
[2018-07-08] MEDS ORDERED: POLYETHYLENE GLYCOL 17 GM (MIRALAX) PACK PO SCH (06:00)
[2018-07-08 06:24] VITALS: BP 134/78
[2018-07-08] MEDS: POLYETHYLENE GLYCOL 17 GM (MIRALAX) PACK PO SCH ×3 (06:54→20:35)
[2018-07-08] MEDS: MULTIVIT W/MINERALS TAB (THERAGRAN M) PO SCH (06:54)
[2018-07-08] MEDS: PROMACTA 50 MG PO SCH (06:55)
[2018-07-08 08:00] VITALS: BP 137/68
[2018-07-08] MEDS: inSUlin ASPART (NovoLOG) 1 UNIT/0.01 ML (CHARGE PER UNIT) SC SCH ×3 (08:57→18:01)
[2018-07-08] MEDS: SPIRONOLACTONE 25 MG (ALDACTONE) TAB PO SCH (08:58)
[2018-07-08] MEDS: FUROSEMIDE 40 MG (LASIX) TAB PO SCH ×2 (08:58→16:21)
[2018-07-08] MEDS: PREGABALIN 75 MG (LYRICA) CAP PO SCH ×2 (08:58→20:34)
[2018-07-08] MEDS: DULoxetine 30 MG (CYMBALTA) CAP PO SCH (08:58)
[2018-07-08] MEDS: MAGNESIUM OXIDE (MAG-OX)400 MG TAB PO SCH ×2 (08:58→20:34)
--- NOTE | 2018-07-08 08:58 | Occupational Therapy Eval ---
OT Evaluation-General/PLF Medical Diagnosis Admission Date Jul 07, 2018 at 19:00 Medical Diagnosis: disuse myopathy Onset Date: Jul 07, 2018 Therapy Diagnosis Therapy Diagnosis: decreased self care skills, weakness Height/Weight Height (Feet): 5 Height (Inches): 6.00 Weight (Pounds): 270 Weight (Ounces): 0.5 Precautions Precautions/Isolations: Fall Prevention, Standard Precautions, Pressure Ulcer Safety Interventions: Bed Exit Alarm Medical History Pertinent Medical History: DM, HTN, Neuropathy Additional Medical History resp failure, end stage liver disease, hepatic encephalopathy, splenectomy, GERD , hep C Current History Pt was recently in ARU 06/15-06/18, had decline in medical status requiring transfer to ICU and intubation. Pt was transferred to [facility] for further care. Pt admitted to ARU on 07/07. Social History Home: Single Level Current Living Status: Spouse Entry Into Home: Stairs With Railing Steps Into Home: 2 ADL-Prior Level of Function Therapy Code Descriptions/Definitions Functional [place] Measure: 0=Not Assessed/NA 4=Minimal Assistance 1=Total Assistance 5=Supervision or Setup 2=Maximal Assistance 6=Modified [place] 3=Moderate Assistance 7=Complete [place] Therapy Quality Codes: 6 Independent with activity with or without an assistive device 5 Patient requires set up or clean up by helper. Patient completes activity by themselves 4 Supervision or touching assist (CGA). [place] provide cues , steadying assist 3 The helper provides less than half the effort to complete the activity 2 The helper provides more than half the effort to complete the activity 1 Dependent. The helper does all the effort to complete an activity 7 Patient refused to complete or attempt activity 9 The patient did not perform the activity before the current illness or injury 88 Not attempted due to Medical conditions or safety concerns Functional Abilities and Goals: Independent: Patient completed the activities by him/herself, with or without an assistive device, with no assistance from a helper. Needed Some Help: Patient needed partial assistance from another person to complete activities. Dependent: A helper completed the activities for the patient. Unknown: Not Applicable: ADL PLOF Comments Pt reports prior to initial hospitalization she was independent with self care and mobility. Used cane as needed. Self Care: Independent DME/Equipment: Shower OT Current Status Subjective Pt in bed, agrees to therapy. Pt states she is not having pain. Mental Status/Objective Patient Orientation: Person, Place Current Glasses/Contacts: Yes Hearing Aids: No Dentures/Partials: No Hand Dominance: Right Upper Extremity ROM Grossly functional Upper Extremity Coordination Fair Upper Extremity Sensation Intact per pt report Upper Extremity Strength Grossly 4-/5 ADL-Treatment ADL-Current Pt incontinent in bed when therapist arrives. Pt supine to sit with minimal assistance and increased time. Transfer to [facility] with mod assist x2 for safety. Pt states her knees buckle and she is fearful of falling. Pt required total assist for toileting hygiene. Changed into hospital gown with min assist. Total assist to change socks. Transfer back to EOB with mod assist x2. Pt would like to shower this morning. Co-treat with PT for ADLs and mobility secondary to level of skilled assist required. OT focusing on ADL completion, transfers, safety, and UE management during mobility. PT focusing on transfers, mobility, balance, and safety. Pt transferred EOB to w/c with assist x2 for safety. To restroom via w/c. Transfer w/c <-> shower bench with mod assist x2. Pt has decreased balance and strength, impacting ability to perform transfers safely. Pt completed seated bathing using hand held shower. Pt able to wash bilateral UE, chest, abdomen, and luther area. Required assist for other areas. Pt able to thread bilateral UE into shirt sleeves and casing puller head, but requires assist to pull down in front and back. Assist to thread bilateral LE into pant legs and pull up to knees. Pt stood with assist x2 for pant hike. Pt unable to assist with pant hike while standing with FWW secondary to decreased balance. Total assist to don socks. Grooming tasks completed seated at sink. Pt brushed teeth and combed hair with SBA. Pt performed w/c mobility to therapy gym using bilateral UE/LE. Increased time required. Pt stood in parallel bars and took steps the length of parallel bars x2 with assist for balance and safety ; close w/c follow. Pt fatigues with activity and requires seated rest breaks between activities. Pt in w/c with PT present after session. Eating (FIM): 5 (set up by report) Eating (QC): 5 Grooming (FIM): 5 Oral Hygiene (QC): 4 Bathing (FIM): 3 Shower/Bathe Self (QC): 3 Upper Body Dressing (FIM): 3 Upper Body Dressing (QC): 3 Lower Body Dressing (FIM): 1 Lower Body Dressing (QC): 1 On/Off Footwear (QC): 1 Toileting (FIM): 1 Toileting Hygiene (QC): 1 Toilet/Commode Transfer (FIM): 1 (assist x2 for safety) Toilet Transfer (QC): 1 Shower Transfer (FIM): 1 (assist x2 for safety) Education OT Patient Education: Rehab process Teaching Recipient: Patient Teaching Methods: Discussion Response to Teaching: Verbalize Understanding OT Short Term Goals Short Term Goals Time Frame: Jul 15, 2018 Bathing(FIM): 4 Upper Body Dressing(FIM): 4 Lower Body Dressing(FIM): 3 Toileting(FIM): 3 Toilet/Commode Transfer(FIM): 3 Shower Transfer(FIM): 3 Additional Short Term Goals: 1-Demonstrate ADL Tasks, 2-Verbalize Understanding , 3-ImproveStrength/Unique 1=Demonstrate adherence to instructed precautions during ADL tasks. 2=Patient will verbalize/demonstrate understanding of assistive devices/ modifications for ADL. 3=Patient will improve strength/tolerance for activity to enable patient to perform ADL's. OT Stencil Cutter Goals Stencil Cutter Goals Time Frame: July 29, 2018 Eating (FIM): 7 Eating (QC): 6 Groomin Oral Hygiene (QC): 6 Bathing(FIM): 5 Shower/Bathe Self (QC): 4 Upper Body Dressing(FIM): 6 Upper Body Dressing (QC): 6 Lower Body Dressing(FIM): 5 Lower Body Dressing (QC): 4 On/Off Footwear (QC): 5 Toileting(FIM): 5 Toileting Hygiene (QC): 4 Toilet/Commode Transfer(FIM): 5 Toilet/Commode Transfer (QC): 5 Shower Transfer(FIM): 5 Additional Goals: 1-Demonstrate ADL Tasks, 2-Verbalize Understanding, 3- ImproveStrength/Unique 1=Demonstrate adherence to instructed precautions during ADL tasks. 2=Patient will verbalize/demonstrate understanding of assistive devices/ modifications for ADL. 3=Patient will improve strength/tolerance for activity to enable patient to perform ADL's. Goals established to promote increased functional independence and allow safe discharge. OT Education/Plan Problem List/Assessment Assessment: Decreased Activ Tolerance, Decreased UE Strength, Dependent Transfers, Impaired Bed Mobility, Impaired Funct Balance, Impaired I ADL's, Impaired Self-Care Skills Pt demonstrates decreased ADL functioning, mobility, balance, strength, and activity tolerance. Pt to benefit from skilled OT intervention for ADL training , transfers, strengthening, adaptive equipment training as needed, and home safety education to increase functional independence and allow safe discharge home. Discharge Recommendations Plan/Recommendations: Continue POC Treatment Plan/Plan of Care Treatment,Training & Education: Yes Patient would benefit from OT for education, treatment and training to promote independence in ADL's, mobility, safety and/or upper extremity function for ADL' s. Plan of Care: ADL Retraining, Functional Mobility, Group Exercise/Act as Ind, UE Funct Exercise/Act Treatment Duration: July 29, 2018 Frequency: At least 5 of 7 days/Wk (IRF) Estimated Hrs Per Day: 1.5 hours per day Agreement: Yes Rehab Potential: Fair Time/GCodes Start Time: 07:00 Stop Time: 08:40 Total Time Billed (hr/min): 90 Billed Treatment Time 1 visit, EVM(15minutes), ADLx4(60minutes), FA(15minutes) [id number] OT Eval and ADL [id number] PT EVAL [id number] CO-treat with PT MOIZ GOULD OT Jul 08, 2018 08:58
[2018-07-08] MEDS: meTOprolol TARTRATE 25 MG (LOPRESSOR) TABLET PO SCH ×2 (08:59→20:34)
[2018-07-08] MEDS: LORATADINE (CLARITIN) 10 MG TAB PO SCH (08:59)
[2018-07-08] MEDS: RIFAXIMIN 550 MG TABLET (XIFAXAN) PO SCH ×2 (08:59→20:33)
[2018-07-08] MEDS ORDERED: NON-FORMULARY MEDICATION 1 EA EA (Spironolactone (Aldactone) 25 MG) PO SCH (09:00)
[2018-07-08] MEDS: MICONAZOLE 2% POWDER (DESENEX AF) 90 GM TOP SCH ×2 (09:00→20:37)
[2018-07-08] MEDS: LACTULOSE SYRUP 10GM/15ML (ENULOSE) 30ML UDC PO SCH (09:00)
[2018-07-08] MEDS ORDERED: NON-FORMULARY MEDICATION 1 EA EA (Duloxetine HCl (Cymbalta) 30 MG) PO SCH (09:00)
[2018-07-08 09:06] LABS: HEMATOCRIT 28 % (35-52); HEMOGLOBIN 8.6 G/DL (11.5-16.0); MEAN CORPUSCULAR HEMOGLOBIN 28 PG (25-34); MEAN CORPUSCULAR HGB CONC 31 G/DL (32-36); MEAN CORPUSCULAR VOLUME 90 FL (80-99); PLATELET COUNT 54 10^3/uL (130-400); RED CELL DISTRIBUTION WIDTH 23.2 % (10.0-14.5); WHITE BLOOD COUNT 24.8 10^3/uL (4.3-11.0)
[2018-07-08 09:15] LABS: INR 1.4 (0.8-1.4); PROTHROMBIN TIME PATIENT 17.7 SEC (12.2-14.7)
[2018-07-08 09:25] LABS: ALBUMIN 3.4 GM/DL (3.2-4.5); BILIRUBIN,TOTAL 1.2 MG/DL (0.1-1.0); CALCIUM 9.3 MG/DL (8.5-10.1); CREATININE SERUM 1.29 MG/DL (0.60-1.30); POTASSIUM 4.5 MMOL/L (3.6-5.0); TOTAL PROTEIN 6.6 GM/DL (6.4-8.2)
--- NOTE | 2018-07-08 10:00 | NUR ---
HAS BEEN WORKING WITH THERAPY. ROOM AIR SAT 84% AND STARTED ON O2 AT 2L. DENIES ANY PAIN. AT BEDSIDE.
--- NOTE | 2018-07-08 10:32 | Physical Therapy Evaluation ---
PT Evaluation-General Medical Diagnosis Admission Date Jul 07, 2018 at 19:00 Medical Diagnosis: disuse myopathy Onset Date: Jul 07, 2018 Therapy Diagnosis Therapy Diagnosis: weakness; abn gait Height/Weight Height (Feet): 5 Height (Inches): 6.00 Weight (Pounds): 270 Weight (Ounces): 0.5 Precautions Precautions/Isolations: Fall Prevention, Standard Precautions Referral Physician: Marilynn Reason for Referral: Evaluation/Treatment Medical History Pertinent Medical History: DM, HTN, Neuropathy Additional Medical History resp failure, end stage liver disease, hepatic encephalopathy, splenectomy, GERD , hep C Current History Pt has a history of chronic respiratory failure. She was on our unit earlier this month and due to a decline in status was transferred to ICU then subsequently transferred to [facility] on 06/24/18 due to respiratory issues. She was treated and has returned to this unit for continued medical management and skilled therapy services. Reviewed History: Yes Social History Home: Single Level Current Living Status: Spouse Entry Into Home: Stairs With Railing PT Steps Into Home: 2 Prior/Core FIM Prior Level of Function Therapy Code Descriptions/Definitions Functional [place] Measure: 0=Not Assessed/NA 4=Minimal Assistance 1=Total Assistance 5=Supervision or Setup 2=Maximal Assistance 6=Modified [place] 3=Moderate Assistance 7=Complete [place] Therapy Quality Codes: 6 Independent with activity with or without an assistive device 5 Patient requires set up or clean up by helper. Patient completes activity by themselves 4 Supervision or touching assist (CGA). [place] provide cues , steadying assist 3 The helper provides less than half the effort to complete the activity 2 The helper provides more than half the effort to complete the activity 1 Dependent. The helper does all the effort to complete an activity 7 Patient refused to complete or attempt activity 9 The patient did not perform the activity before the current illness or injury 88 Not attempted due to Medical conditions or safety concerns Functional Abilities and Goals: Independent: Patient completed the activities by him/herself, with or without an assistive device, with no assistance from a helper. Needed Some Help: Patient needed partial assistance from another person to complete activities. Dependent: A helper completed the activities for the patient. Unknown: Not Applicable: Bed Mobility: 7 Transfers (B,C,W/C) (FIM): 6 Gait: 6 Indoor Mobility (Ambulation): Independent Stairs: Independent Prior Device Use: pt had intermittent use of a cane for ambulation Pt able to drive and ambulate community distance. PT Evaluation-Current Subjective Agrees to PT. Reports her legs are weak and tend to give out on her. Pain Numeric Pain Scale: 0-No Pain Location: No Pain Reported Pt/Family Goals Return home with her spouse when able. Objective Patient Orientation: Person, Place, Time, Situation Problem Solving: Good ROM/Strength ROM Lower Extremities WFL Strenght Lower Extremities Grossly 4-/5 Integumentary/Posture Integumentary Refer to nursing notes. Bowel Incontinence: No Bladder Incontinence: Yes Posture normal and symmetrical Neuromuscular (Tone, Coordination, Reflexes) WFL Sensory Vision: Wears Glasses Hearing: Functional Hand Dominance: Right Sensation Right Lower Extremit: Intact Sensation Left Lower Extremity: Intact Transfers Therapy Code Descriptions/Definitions Functional [place] Measure: 0=Not Assessed/NA 4=Minimal Assistance 1=Total Assistance 5=Supervision or Setup 2=Maximal Assistance 6=Modified [place] 3=Moderate Assistance 7=Complete [place] Therapy Quality Codes: 6 Independent with activity with or without an assistive device 5 Patient requires set up or clean up by helper. Patient completes activity by themselves 4 Supervision or touching assist (CGA). [place] provide cues , steadying assist 3 The helper provides less than half the effort to complete the activity 2 The helper provides more than half the effort to complete the activity 1 Dependent. The helper does all the effort to complete an activity 7 Patient refused to complete or attempt activity 9 The patient did not perform the activity before the current illness or injury 88 Not attempted due to Medical conditions or safety concerns Transfers (B, C, W/C) (FIM): 1 Scootin Roll Left to Right (QC): 3 Supine to/from Sit: 2 Sit to/from Stand: 3 bed t/f WC(FIM only if WC use): 1 Sit to Lying (QC): 2 (assist to lift both legs into the chair) Lying to Sitting/Side of Bed(Q: 4 Sit to Stand (QC): 3 Chair/Qno-an-Wyqro Xfer(QC): 1 (assist of 2 to perform the transfer for safety. ) Car Transfer (QC): 1 (assist of 2 to turn to the seat and assit to lift her legs into the car) Pt has good upper extrenity strength but LE are weak and impair transfers. Gait Does the Patient Walk?: Yes Mode of Locomotion: Walk Anticipated Mode of Locomotion: Walk Gait (FIM): 2 Distance (FIM): 1=up to 49 ft Walk 10 feet (QC): 88 Distance: 6 ft in // bars Gait Level of Assist: 4 (min assist for balance and safety) Gait Persons Needed: 2 Comments/Gait Description Pt walked in the // bars with very close min assist due to knees quivering and risk of buckling, followed closely by the wheelchair. Wheelchair Training Does the Pt Use a Wheelchair?: No Stairs Stairs (FIM): 0 1 Step (curb) (QC): 88 4 Steps (QC): 88 If not tested on admit;explain Due to buckling of knees in WB unsafe to attempt due to fall risk. Balance Sitting Static: Good Sitting Dynamic: Good Standing Static: Fair Standing Dynamic: Fair Picking up an Object (QC): 88 Treatment Co treat with OT partially to complete functional transfers and standing static and dynamic balance activities to complete ADL's of showering and dressing. Skill of 2 clinicians required due to need of cues verbally and tactically for hand placement and UE use for ADL and self care tasks as PT addressed functional transfers in/out of shower as well as standing to take clothes on and off. Pt walked 6 ft x 2 in // bars as well. Assessment/Needs Pt presents with gross functional weakness and balance deficits that impairs her ability to transfer or ambulate without extensive assist. Her MMT of LE is strong, but in WB her knees tend to buckle, increasing risk for falls. She will benefit from skilled PT to address strength and mobility to allow her to return home at a mod indep level. She currently is max to dependent for safe transfers and unable to safely walk outside of the // bars. Rehab Potential: Good PT Short Term Goals Short Term Goals Time Frame: July 22, 2018 Transfers (B,C,W/C) (FIM): 4 Gait (FIM): 4 PT Technology Strategist Goals Correction Goals PT Correction Goals Time Frame: August 05, 2018 Transfers (B,C,W/C) (FIM): 6 Sit to Lying (QC): 6 Lying-Sitting on Side/Bed(QC): 6 Sit to Stand (QC): 6 Roll Left to Right (QC): 6 Chair/Zsk-cc-Lotbq Xfer(QC): 6 Car Transfer (QC): 6 Does the Patient Walk: Yes Gait (FIM): 6 Gait distance (FIM): 3=150 ft Walk 10 feet (QC): 6 Walk 10ft-Uneven Surface(QC): 6 Walk 50ft with 2 Turns (QC): 6 Walk 150 ft (QC): 6 Gait Assistive Device: FWW Stairs (FIM): 5 # of Steps: 4 1 Step (curb) (QC): 6 4 Steps (QC): 6 12 Steps (QC): 88 Picking up an Object (QC): 4 PT Plan Problem List Problem List: Activity Tolerance, Functional Strength, Safety, Balance, Gait, Transfer, Bed Mobility Treatment/Plan Treatment Plan: Continue Plan of Care Treatment Plan: Bed Mobility, Education, Functional Activity Unique, Functional Strength, Group Therapy, Gait, Safety, Therapeutic Exercise, Transfers Treatment Duration: August 05, 2018 Frequency: At least 5 of 7 days/Wk (IRF) Estimated Hrs Per Day: 1.5 hours per day Patient and/or Family Agrees t: Yes Safety Risks/Education Patient Education: Transfer Techniques, Safety Issues Teaching Recipient: Patient Teaching Methods: Demonstration, Discussion Response to Teaching: Reinforcement Needed Time/GCodes Time In: 730 Time Out: 740 (740-840) Total Billed Treatment Time: 60 Total Billed Treatment visit EVM 10 FA 60 (co treat with OT) ARNAUD MUNIZ PT Jul 08, 2018 10:32
--- NOTE | 2018-07-08 10:49 | Physical Therapy Daily Note ---
PT Daily Note-Current Subjective Agrees to PT. Transfers Therapy Code Descriptions/Definitions Functional [place] Measure: 0=Not Assessed/NA 4=Minimal Assistance 1=Total Assistance 5=Supervision or Setup 2=Maximal Assistance 6=Modified [place] 3=Moderate Assistance 7=Complete [place] Therapy Quality Codes: 6 Independent with activity with or without an assistive device 5 Patient requires set up or clean up by helper. Patient completes activity by themselves 4 Supervision or touching assist (CGA). [place] provide cues , steadying assist 3 The helper provides less than half the effort to complete the activity 2 The helper provides more than half the effort to complete the activity 1 Dependent. The helper does all the effort to complete an activity 7 Patient refused to complete or attempt activity 9 The patient did not perform the activity before the current illness or injury 88 Not attempted due to Medical conditions or safety concerns Treatments seated B LE ther ex 15 reps each for AP, heel raised, LAQ, hip flexion and hip abduction. Sit to stand x 3 in // bars. Pt then propelled herself to her room via wheelchair with min assist to promote UE strength as well and functional activity tolerance. Transferred wc to chair with assist of 2 to complete the transfer. Pt in chair with needs met. Oxygen applied as sats were at 84%. They returned to above 90 within a minute. Assessment Current Status: Good Progress tolerated well PT Short Term Goals Short Term Goals Time Frame: July 22, 2018 Transfers (B,C,W/C) (FIM): 4 Gait (FIM): 4 PT Night Manager Goals Night Manager Goals PT Snf Goals Time Frame: August 05, 2018 Transfers (B,C,W/C) (FIM): 6 Sit to Lying (QC): 6 Lying-Sitting on Side/Bed(QC): 6 Sit to Stand (QC): 6 Roll Left to Right (QC): 6 Chair/Oef-jw-Ybscp Xfer(QC): 6 Car Transfer (QC): 6 Does the Patient Walk: Yes Gait (FIM): 6 Gait distance (FIM): 3=150 ft Walk 10 feet (QC): 6 Walk 10ft-Uneven Surface(QC): 6 Walk 50ft with 2 Turns (QC): 6 Walk 150 ft (QC): 6 Gait Assistive Device: FWW Stairs (FIM): 5 # of Steps: 4 1 Step (curb) (QC): 6 4 Steps (QC): 6 12 Steps (QC): 88 Picking up an Object (QC): 4 PT Plan Problem List Problem List: Activity Tolerance, Functional Strength, Safety Treatment/Plan Treatment Plan: Continue Plan of Care Treatment Plan: Bed Mobility, Education, Functional Activity Unique, Functional Strength, Group Therapy, Gait, Safety, Therapeutic Exercise, Transfers Treatment Duration: August 05, 2018 Frequency: At least 5 of 7 days/Wk (IRF) Estimated Hrs Per Day: 1.5 hours per day Patient and/or Family Agrees t: Yes Time/GCodes Time In: 830 Time Out: 900 Total Billed Treatment Time: 30 Total Billed Treatment visit FA 15 EX 15 ARNAUD MUNIZ PT Jul 08, 2018 10:49
[2018-07-08 11:06] LABS: BAND NEUTROPHILS 1 %; LYMPHOCYTES % (MANUAL) 22 %; MONOCYTES % (MANUAL) 13 %; NEUTROPHILS % (MANUAL) 64 %
[2018-07-08 11:08] LABS: CRENATED RBC SLIGHT; TOXIC GRANULATION/VACUOLAZATIO 1+
[2018-07-08 11:09] LABS: HYPOCHROMASIA MODERATE
[2018-07-08 11:11] LABS: SCHISTOCYTES SLIGHT
[2018-07-08 11:13] LABS: ANISOCYTOSIS MODERATE
--- NOTE | 2018-07-08 11:40 | PM&R H&P / Post Admit Assess ---
History of Present Illness HPI/Chief Complaint CC: Disuse myopathy HPI: This is a 52yoWF clinic patient of Dr Torres who presents back to [facility] where she was transferred from the ICU to [facility] on 06/24/18 due to worsened respiratory status and renal failure. Patient had a lengthy hospital course at [facility] from 06/24 until 07/07/18 which included aggressive diuresis which resulted in a 54# weight loss since last at [facility]. Patient required Lasix infusion and close Nephrology and Cardiology and Pulmonology monitoring during the course. Patient' s creatinine is 1.3 and currently tolerating Miralax and Lactulose QID to maintain low ammonia levels and platelets will be monitored closely and sent to Hematology at [facility] as requested. biPAP was placed on patient per Dr Wilkinson's direction last night at 15/7 pressure level. I reviewed extensive chart from [facility] and reviewed and reconciled and restarted all meds she was on at [facility]. Patient feels much better but she is frustrated because she cannot walk. Barriers to returning home with include regaining the ability to walk and prevent falls and improve ADL independence. PLOF was independent now she is 2 person assist. Source: patient, family, RN/MD, old records Exam Limitations: no limitations Date Seen 07/08/18 Time Seen by a Provider: 11:00 Attending Physician Tita Lucas DO PCP No,Local Physician Referring Physician Date of Admission Jul 07, 2018 at 19:00 Home Medications & Allergies Home Medications Reviewed patient Home Medication Reconciliation performed by pharmacy medication reconciliations chemical treatment plant technician and/or nursing. Patients Allergies have been reviewed. Allergies Allergies Coded Allergies hydromorphone (Verified Allergy, Severe, ANAPHYLAXIS, 06/18/18) metoclopramide (Unverified Allergy, Unknown, 07/21/16) Past Oiucith-Uohfvl-Awppns Hx Past Med/Social Hx: Reviewed Nursing Past Med/Soc Hx, Reviewed and Corrections made Patient Social History Marrital Status: Employed/Student: employed Alcohol Use: Denies Use Number of Drinks Today: Alcohol Beverage of Choice: Wine Recreational Drug Use: No Smoking Status: Never a Smoker Physical Abuse Screen: No Sexual Abuse: No Recent Foreign Travel: No Contact w/other who traveled: No Recent Hopitalizations: Yes (ARDS, disuse myopothy) Recent Infectious Disease Expo: No Immunizations Up To Date Pediatric: Yes Seasonal Allergies Seasonal Allergies: Yes Past Medical History Surgeries: Section, Hysterectomy Respiratory: Pneumonia, Sleep Apnea Currently Using CPAP: No Currently Using BIPAP: Yes Cardiac: Chronic Edema/Swelling, Hypertension Neurological: Neuropathy Reproductive: No Genitourinary: Bladder Infection, Renal Failure Gastrointestinal: Gastroesophageal Reflux, Liver Disease/Jaundice, Chronic Constipation, Esophageal Varices, Hepatitis, Cirrhosis Musculoskeletal: Chronic Back Pain Endocrine: Diabetes, Insulin dep Loss of Vision: Denies Hearing Impairment: Denies Psychosocial: Depression History of Blood Disorders: Yes (remote history of ITP) Family History Patient reports no known family medical history. No Pertinent Family Hx Review of Systems Constitutional: see HPI, malaise EENTM: no symptoms reported Respiratory: no symptoms reported Cardiovascular: no symptoms reported Gastrointestinal: no symptoms reported Genitourinary: no symptoms reported Musculoskeletal: back pain, muscle weakness, other (cannot ambulate) Skin: no symptoms reported Psychiatric/Neurological: Depressed All Other Systems Reviewed Negative Unless Noted: Yes Physical Exam Exam Vital Signs Vital Signs Date Time Temp Pulse Resp B/P (MAP) Pulse Ox O2 Delivery O2 Flow Rate FiO2 07/08/18 09:00 Nasal Cannula 2.00 07/08/18 08:46 92 07/08/18 06:24 96.6 73 22 134/78 (96) Capillary Refill : General Appearance: No Apparent Distress, WD/WN, Chronically ill, Obese HEENT: PERRL/EOMI, Normal ENT Inspection, Pharynx Normal, Moist Mucous Membranes Neck: Full Range of Motion, Normal Inspection, Non Tender, Supple Respiratory: Chest Non Tender, Lungs Clear, Normal Breath Sounds, No Accessory Muscle Use, No Respiratory Distress Cardiovascular: Regular Rate, Rhythm, No Edema, No Gallop, No JVD, No Murmur Gastrointestinal: Normal Bowel Sounds, No Organomegaly, No Pulsatile Mass, Non Tender, Soft Back: Normal Inspection, No CVA Tenderness, No Vertebral Tenderness Extremity: Normal Capillary Refill, Normal Inspection, Normal Range of Motion, Non Tender, No Calf Tenderness, No Pedal Edema Neurologic/Psychiatric: Alert, Oriented x3, Normal Mood/Affect, Motor Weakness (3/5 all extremities) Skin: Normal Color, Warm/Dry Lymphatic: No Adenopathy Results Results/Procedures Labs Laboratory Tests 07/08/18 08:45 Patient resulted labs reviewed. 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 (18) Leukocytosis (19) Jaundice (20) Ascites (21) Anemia (22) Hepatic encephalopathy Plan: Monitor platelets, Hgb, creat and ammonia closely Lactulose and Miralax to prevent ammonia elevation Diuretics as scheduled Intensive therapies biPAP 02/[address] Jaja Martini ADA and low sodium diet Fluid restriction 1500cc/day (1) Disuse muscle atrophy (2) H/O splenectomy (3) ESSENTIAL (PRIMARY) HYPERTENSION (4) Hepatitis C virus infection resolved after antiviral drug therapy (5) Nocturnal hypoxemia (6) Liver cirrhosis secondary to [place] (7) Increased ammonia level Resolution Date/Time: 06/18/18 @ 13:54 (8) Obesity (BMI 30-39.9) (9) History of ITP (10) End stage liver disease (11) Chronic back pain (12) History of pneumonia (13) Thrombocytopenia (14) Renal insufficiency (15) LOCALIZED EDEMA (16) WEAKNESS (17) TYPE 2 DIABETES MELLITUS WITH DIABETIC POLYNEUROPATHY (18) Leukocytosis (19) Jaundice (20) Ascites (21) Anemia (22) Hepatic encephalopathy Resolution Date/Time: 06/18/18 @ 13:52 Post Admission Physician Asses Date seen by provider: Jul 08, 2018 Time seen by provider: 11:00 Admisison Dx: (1) Disuse muscle atrophy The preadmission screen agrees with the post admission assessment that the patient is a good candidate for inpatient rehabilitation. The patient will have a comprehensive program of inpatient rehabilitation with a goal of maximizing level of functional independence prior to discharge home with . The patient will have PT/OT ninety minutes per day, each discipline, five days a week for gait, strengthening, conditioning, balance, ADLs, any patient/family/caregiver training as necessary. Speech therapy to do cognitive assessment and treat as indicated. Rehabilitation nursing to assist with bowel, bladder, skin, wound care, medication administration, pain management. Director Of Business Continuity to assist with discharge planning, community reentry. SCD's for DVT prophylaxis. She appears to be well motivated to participate in three hours of therapy a day. She should be able to tolerate three hours of therapy a day from a medical standpoint. She should benefit from the three hours of therapy a day. She has a reasonable discharge plan, reasonable discharge rehabilitation goals and a supportive family. She has various comorbidities that need to be closely monitored with medications and treatments adjusted on a daily basis as needed. These include: see list Barriers to discharge for this patient who had been independent prior to this are for her to be modified independent to supervision for ADLs and mobility skills prior to discharge home with [family], so as to lessen the burden of the caregivers. Risks for this patient include: 1. Fall 2. Fracture 3. DVT 4. Pulmonary embolism 5. Wound infection 6. Skin breakdown 7. Contractures 8. Poorly controlled pain 9. Urinary retention 10. UTI 11. Respiratory infection 12. Aspiration Estimated Length of Stay: 21 days Prognosis: Rehab prognosis appears good for goal of discharge home with modified independent to supervision for ADLs and mobility skills. TITA LUCAS DO Jul 08, 2018 11:40
--- NOTE | 2018-07-08 12:00 | NUR ---
NO INCONTINENCY THIS AM. HAS BEEN UP TO [facility] FOR VOIDING AND BM. DR. LUCAS INFORMED OF PATIENT/ STATING LACTULOSE HAD BEEN DC'D AT END OF HER STAY AT . ADJUSTMENTS MADE IN MIRALAX AND LACTULOSE. ENJOYING VISITS FROM FAMILY.
--- NOTE | 2018-07-08 14:00 | NUR ---
CBC AND CMP FAXED TO DR. KENT AT .
[2018-07-08 17:15] VITALS: BP 125/70
[2018-07-08] MEDS: AMITRIPTYLINE 25 MG (ELAVIL) TAB PO SCH (20:33)
[2018-07-08] MEDS ORDERED: LACTULOSE SYRUP 10GM/15ML (ENULOSE) 30ML UDC PO SCH (21:00)
[2018-07-09] MEDS: LACTULOSE SYRUP 10GM/15ML (ENULOSE) 30ML UDC PO SCH ×2 (05:54→17:47)
[2018-07-09] MEDS: MULTIVIT W/MINERALS TAB (THERAGRAN M) PO SCH (05:54)
[2018-07-09] MEDS: PROMACTA 50 MG PO SCH (05:54)
[2018-07-09 06:12] VITALS: BP 146/74
[2018-07-09] MEDS: inSUlin ASPART (NovoLOG) 1 UNIT/0.01 ML (CHARGE PER UNIT) SC SCH ×3 (08:18→18:35)
[2018-07-09] MEDS: PREGABALIN 75 MG (LYRICA) CAP PO SCH ×2 (08:19→20:12)
[2018-07-09] MEDS: RIFAXIMIN 550 MG TABLET (XIFAXAN) PO SCH ×2 (08:19→20:12)
[2018-07-09] MEDS: LORATADINE (CLARITIN) 10 MG TAB PO SCH (08:19)
[2018-07-09] MEDS: MAGNESIUM OXIDE (MAG-OX)400 MG TAB PO SCH ×2 (08:19→20:12)
[2018-07-09] MEDS: DULoxetine 30 MG (CYMBALTA) CAP PO SCH (08:19)
[2018-07-09] MEDS: MICONAZOLE 2% POWDER (DESENEX AF) 90 GM TOP SCH ×2 (08:20→20:20)
[2018-07-09] MEDS: meTOprolol TARTRATE 25 MG (LOPRESSOR) TABLET PO SCH ×2 (08:20→20:12)
[2018-07-09] MEDS: FUROSEMIDE 40 MG (LASIX) TAB PO SCH ×2 (08:20→17:47)
[2018-07-09] MEDS: SPIRONOLACTONE 25 MG (ALDACTONE) TAB PO SCH (08:20)
[2018-07-09] MEDS: POLYETHYLENE GLYCOL 17 GM (MIRALAX) PACK PO SCH ×2 (08:20→20:17)
--- NOTE | 2018-07-09 11:24 | PM&R Progress Note ---
Subjective HPI/CC On Admission Date Seen by Provider: Jul 09, 2018 Time Seen by Provider: 08:30 CC: Disuse myopathy HPI: This is a 52yoWF clinic patient of Dr Torres who presents back to [facility] where she was transferred from the ICU to [facility] on 06/24/18 due to worsened respiratory status and renal failure. Patient had a lengthy hospital course at [facility] from 06/24 until 07/07/18 which included aggressive diuresis which resulted in a 54# weight loss since last at [facility]. Patient required Lasix infusion and close Nephrology and Cardiology and Pulmonology monitoring during the course. Patient' s creatinine is 1.3 and currently tolerating Miralax and Lactulose QID to maintain low ammonia levels and platelets will be monitored closely and sent to Hematology at [facility] as requested. biPAP was placed on patient per Dr Wilkinson's direction last night at 15/7 pressure level. I reviewed extensive chart from [facility] and reviewed and reconciled and restarted all meds she was on at [facility]. Patient feels much better but she is frustrated because she cannot walk. Barriers to returning home with include regaining the ability to walk and prevent falls and improve ADL independence. PLOF was independent now she is 2 person assist. Subjective/Events-last exam Patient much improved Up in a chair sitting at bedside Profound diuresis has helped her so much that they obtained at med, 54# worth Had a large bowel movement this morning BiPAP maintained until 4:00 this morning and well-tolerated Oxygen maintain at 2 L/min Blood sugar was 77 was given breakfast Ready to rest this Tuesday to prepare for hard work this week with PT and OT Goal is to return back home to live independently with Check meds and labs Review of Systems General: Fatigue Musculoskeletal: leg pain Objective Exam Vital Signs Vital Signs Date Time Temp Pulse Resp B/P (MAP) Pulse Ox O2 Delivery O2 Flow Rate FiO2 07/09/18 09:00 Nasal Cannula 2.00 07/09/18 06:12 98.6 75 19 146/74 (98) 95 Capillary Refill : General Appearance: No Apparent Distress, WD/WN, Chronically ill, Obese HEENT: PERRL/EOMI, Normal ENT Inspection, Pharynx Normal, Moist Mucous Membranes Neck: Full Range of Motion, Normal Inspection, Non Tender, Supple Respiratory: Chest Non Tender, Lungs Clear, Normal Breath Sounds, No Accessory Muscle Use, No Respiratory Distress Cardiovascular: Regular Rate, Rhythm, No Edema, No Gallop, No JVD, No Murmur Gastrointestinal: Normal Bowel Sounds, No Organomegaly, No Pulsatile Mass, Non Tender, Soft Back: Normal Inspection, No CVA Tenderness, No Vertebral Tenderness Extremity: Normal Capillary Refill, Normal Inspection, Normal Range of Motion, Non Tender, No Calf Tenderness, No Pedal Edema Neurologic/Psychiatric: Alert, Oriented x3, Normal Mood/Affect, Motor Weakness (3/5 all extremities) Skin: Normal Color, Warm/Dry Lymphatic: No Adenopathy Results/Procedures Lab Patient resulted labs reviewed. FIM Transfers Therapy Code Descriptions/Definitions Functional [place] Measure: 0=Not Assessed/NA 4=Minimal Assistance 1=Total Assistance 5=Supervision or Setup 2=Maximal Assistance 6=Modified [place] 3=Moderate Assistance 7=Complete [place] Therapy Quality Codes: 6 Independent with activity with or without an assistive device 5 Patient requires set up or clean up by helper. Patient completes activity by themselves 4 Supervision or touching assist (CGA). [place] provide cues , steadying assist 3 The helper provides less than half the effort to complete the activity 2 The helper provides more than half the effort to complete the activity 1 Dependent. The helper does all the effort to complete an activity 7 Patient refused to complete or attempt activity 9 The patient did not perform the activity before the current illness or injury 88 Not attempted due to Medical conditions or safety concerns Gait Training Does the Patient Walk?: Yes Distance (FIM): 1=up to 49 ft Gait Assistive Device: FWW Wheelchair Training Does the Pt Use a Wheelchair?: No ADL-Treatment Feedin (set up by report) Eating (QC): 5 Groomin Oral Hygiene (QC): 4 Bathin Shower/Bathe Self (QC): 3 Upper Extremity Dressin Upper Body Dressing (QC): 3 Lower Extremity Dressin Lower Body Dressing (QC): 1 On/Off Footwear (QC): 1 Toiletin Toileting Hygiene (QC): 1 Toilet/Commode Transfer: 1 (assist x2 for safety) Toilet Transfer (QC): 1 Shower: 1 (assist x2 for safety) Assessment/Plan Assessment and Plan Assess & Plan/Chief Complaint Assessment: (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 to return home with (2) H/O splenectomy (3) ESSENTIAL (PRIMARY) HYPERTENSION (4) Hepatitis C virus infection resolved after antiviral drug therapy (5) Nocturnal hypoxemia-maintained on biPAP since admit to [facility] the first time (6) Liver cirrhosis secondary to [place] (7) Increased ammonia level-maintained on Lactulose and Miralax (8) Obesity (BMI 30-39.9) (9) History of ITP (10) End stage liver disease (11) Chronic back pain-increased since fall 6 weeks ago (12) History of pneumonia last on abx 06/24/18 (13) Thrombocytopenia (14) Renal insufficiency-monitor closely (15) LOCALIZED EDEMA-much improved (16) WEAKNESS (17) TYPE 2 DIABETES MELLITUS WITH DIABETIC POLYNEUROPATHY (18) Leukocytosis-chronic, bone marrow inconclusive so splenectomy likely source (19) Jaundice (20) Ascites (21) Anemia (22) Hepatic encephalopathy Plan: Monitor platelets, Hgb, creat and ammonia closely Lactulose and Miralax to prevent ammonia elevation Diuretics as scheduled Intensive therapies biPAP 02/[address] Jaja Martini ADA and low sodium diet Fluid restriction 1500cc/day (1) Disuse muscle atrophy NUHA LUCAS DO Jul 09, 2018 11:24
[2018-07-09 17:14] VITALS: BP 138/76
[2018-07-09] MEDS: AMITRIPTYLINE 25 MG (ELAVIL) TAB PO SCH (20:12)
[2018-07-09] MEDS: ACETAMINOPHEN 325 MG TABLET PO PRN (22:56)
[2018-07-10] MEDS: LACTULOSE SYRUP 10GM/15ML (ENULOSE) 30ML UDC PO SCH ×2 (05:23→16:16)
[2018-07-10] MEDS: PROMACTA 50 MG PO SCH (05:23)
[2018-07-10] MEDS: MULTIVIT W/MINERALS TAB (THERAGRAN M) PO SCH (05:23)
[2018-07-10 05:29] VITALS: BP 119/72
[2018-07-10] MEDS: inSUlin ASPART (NovoLOG) 1 UNIT/0.01 ML (CHARGE PER UNIT) SC SCH ×3 (06:32→17:31)
--- NOTE | 2018-07-10 08:11 | PM&R Progress Note ---
Subjective HPI/CC On Admission Date Seen by Provider: Jul 10, 2018 Time Seen by Provider: 08:00 CC: Disuse myopathy HPI: This is a 52yoWF clinic patient of Dr Torres who presents back to [facility] where she was transferred from the ICU to [facility] on 06/24/18 due to worsened respiratory status and renal failure. Patient had a lengthy hospital course at [facility] from 06/24 until 07/07/18 which included aggressive diuresis which resulted in a 54# weight loss since last at [facility]. Patient required Lasix infusion and close Nephrology and Cardiology and Pulmonology monitoring during the course. Patient' s creatinine is 1.3 and currently tolerating Miralax and Lactulose QID to maintain low ammonia levels and platelets will be monitored closely and sent to Hematology at [facility] as requested. biPAP was placed on patient per Dr Wilkinson's direction last night at 15/7 pressure level. I reviewed extensive chart from [facility] and reviewed and reconciled and restarted all meds she was on at [facility]. Patient feels much better but she is frustrated because she cannot walk. Barriers to returning home with include regaining the ability to walk and prevent falls and improve ADL independence. PLOF was independent now she is 2 person assist. Subjective/Events-last exam Has had an 8lb weight gain so holding oral Lasix and giving Lasix 40 Mg IV after midline is placed. Not having any major issues. Midline will be placed due to poor vascular access and she may actually meet criteria for a port placement since she will require IV medication in the future. Creatinine noted at 1.4 so will monitor creatinine closely. Will check ammonia levels since that was 41 last time I checked at admission. 68 was the repeat this morning Dr. Olvera will be consulted due to diastolic dysfunction and volume overload. Participating in PT and working on ambulation and fall prevention. Review of Systems General: Fatigue Musculoskeletal: back pain, leg pain Objective Exam Vital Signs Vital Signs Date Time Temp Pulse Resp B/P (MAP) Pulse Ox O2 Delivery O2 Flow Rate FiO2 07/10/18 15:40 98.0 71 20 122/72 (89) 97 Nasal Cannula 2.00 Capillary Refill : General Appearance: No Apparent Distress, WD/WN, Chronically ill, Obese HEENT: PERRL/EOMI, Normal ENT Inspection, Pharynx Normal, Moist Mucous Membranes Neck: Full Range of Motion, Normal Inspection, Non Tender, Supple Respiratory: Chest Non Tender, Lungs Clear, Normal Breath Sounds, No Accessory Muscle Use, No Respiratory Distress Cardiovascular: Regular Rate, Rhythm, No Edema, No Gallop, No JVD, No Murmur Gastrointestinal: Normal Bowel Sounds, No Organomegaly, No Pulsatile Mass, Non Tender, Soft Back: Normal Inspection, No CVA Tenderness, No Vertebral Tenderness Extremity: Normal Capillary Refill, Normal Inspection, Normal Range of Motion, Non Tender, No Calf Tenderness, No Pedal Edema Neurologic/Psychiatric: Alert, Oriented x3, Normal Mood/Affect, Motor Weakness (3/5 all extremities) Skin: Normal Color, Warm/Dry Lymphatic: No Adenopathy Results/Procedures Lab Laboratory Tests 07/10/18 08:45 Patient resulted labs reviewed. FIM Transfers Therapy Code Descriptions/Definitions Functional [place] Measure: 0=Not Assessed/NA 4=Minimal Assistance 1=Total Assistance 5=Supervision or Setup 2=Maximal Assistance 6=Modified [place] 3=Moderate Assistance 7=Complete [place] Therapy Quality Codes: 6 Independent with activity with or without an assistive device 5 Patient requires set up or clean up by helper. Patient completes activity by themselves 4 Supervision or touching assist (CGA). [place] provide cues , steadying assist 3 The helper provides less than half the effort to complete the activity 2 The helper provides more than half the effort to complete the activity 1 Dependent. The helper does all the effort to complete an activity 7 Patient refused to complete or attempt activity 9 The patient did not perform the activity before the current illness or injury 88 Not attempted due to Medical conditions or safety concerns Gait Training Does the Patient Walk?: Yes Distance (FIM): 1=up to 49 ft Gait Assistive Device: FWW Wheelchair Training Does the Pt Use a Wheelchair?: No ADL-Treatment Feedin (set up by report) Eating (QC): 5 Groomin Oral Hygiene (QC): 4 Bathin Shower/Bathe Self (QC): 3 Upper Extremity Dressin Upper Body Dressing (QC): 3 Lower Extremity Dressin Lower Body Dressing (QC): 1 On/Off Footwear (QC): 1 Toiletin Toileting Hygiene (QC): 1 Toilet/Commode Transfer: 1 (assist x2 for safety) Toilet Transfer (QC): 1 Shower: 1 (assist x2 for safety) Assessment/Plan Assessment and Plan Assess & Plan/Chief Complaint Assessment: (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 to return home with (2) H/O splenectomy (3) ESSENTIAL (PRIMARY) HYPERTENSION (4) Hepatitis C virus infection resolved after antiviral drug therapy (5) Nocturnal hypoxemia-maintained on biPAP since admit to [facility] the first time (6) Liver cirrhosis secondary to [place] (7) Increased ammonia level-maintained on Lactulose and Miralax (8) Obesity (BMI 30-39.9) (9) History of ITP (10) End stage liver disease (11) Chronic back pain-increased since fall 6 weeks ago (12) History of pneumonia last on abx 06/24/18 (13) Thrombocytopenia (14) Renal insufficiency-monitor closely (15) LOCALIZED EDEMA-much improved (16) WEAKNESS (17) TYPE 2 DIABETES MELLITUS WITH DIABETIC POLYNEUROPATHY (18) Leukocytosis-chronic, bone marrow inconclusive so splenectomy likely source (19) Jaundice (20) Ascites (21) Anemia (22) Hepatic encephalopathy Plan: Monitor platelets, Hgb, creat and ammonia closely Lactulose and Miralax to prevent ammonia elevation Diuretics as scheduled Intensive therapies biPAP 02/[address] Jaja Martini ADA and low sodium diet Fluid restriction 1500cc/day Midline today and change Lasix to IV once daily 40mg Consult Dr Olvera chief station engineer for Dr Adamson (1) Disuse muscle atrophy (2) Diabetes mellitus (3) Fall Resolution Date/Time: 06/18/18 @ 13:53 (4) History of acute respiratory failure (5) History of hematemesis (6) VENOUS INSUFFICIENCY (CHRONIC) (PERIPHERAL) (7) DIFFICULTY IN WALKING, NOT ELSEWHERE CLASSIFIED (8) Respiratory failure Resolution Date/Time: 06/20/18 @ 10:07 (9) Hypotension Resolution Date/Time: 06/20/18 @ 10:07 (10) Metabolic acidosis (11) Ventilator dependent (12) Hepatic encephalopathy Resolution Date/Time: 06/18/18 @ 13:52 (13) Anemia (14) Ascites (15) Jaundice (16) Leukocytosis (17) Renal insufficiency (18) Thrombocytopenia (19) History of pneumonia (20) Chronic back pain (21) End stage liver disease (22) History of ITP (23) Obesity (BMI 30-39.9) (24) Increased ammonia level Resolution Date/Time: 06/18/18 @ 13:54 (25) Liver cirrhosis secondary to [place] (26) Nocturnal hypoxemia (27) Hepatitis C virus infection resolved after antiviral drug therapy (28) TYPE 2 DIABETES MELLITUS WITH DIABETIC POLYNEUROPATHY (29) ESSENTIAL (PRIMARY) HYPERTENSION (30) WEAKNESS (31) LOCALIZED EDEMA (32) H/O splenectomy NUHA LUCAS DO Jul 10, 2018 08:11
[2018-07-10] MEDS ORDERED: FUROSEMIDE 40 MG/4 ML INJ (LASIX) IVP NR (08:30)
[2018-07-10 08:51] VITALS: BP 94/59
[2018-07-10 08:53] VITALS: BP 159/70
[2018-07-10] MEDS: LORATADINE (CLARITIN) 10 MG TAB PO SCH (08:54)
[2018-07-10] MEDS: MAGNESIUM OXIDE (MAG-OX)400 MG TAB PO SCH ×2 (08:54→20:34)
[2018-07-10] MEDS: DULoxetine 30 MG (CYMBALTA) CAP PO SCH (08:54)
[2018-07-10] MEDS: SPIRONOLACTONE 25 MG (ALDACTONE) TAB PO SCH ×2 (08:54→09:43)
[2018-07-10] MEDS: PREGABALIN 75 MG (LYRICA) CAP PO SCH ×2 (08:54→20:34)
[2018-07-10] MEDS: meTOprolol TARTRATE 25 MG (LOPRESSOR) TABLET PO SCH ×3 (08:55→20:35)
[2018-07-10] MEDS: RIFAXIMIN 550 MG TABLET (XIFAXAN) PO SCH ×2 (08:55→20:34)
[2018-07-10] MEDS: POLYETHYLENE GLYCOL 17 GM (MIRALAX) PACK PO SCH ×2 (08:56→20:34)
--- NOTE | 2018-07-10 08:58 | Occupational Ther Daily Note ---
OT Current Status-Daily Note Subjective Pt alert, lying in bed. Pt agrees to therapy. No c/o pain at this time. Mental Status/Objective Patient Orientation: Person, Place, Time, Situation Therapy Code Descriptions/Definitions Functional [place] Measure: 0=Not Assessed/NA 4=Minimal Assistance 1=Total Assistance 5=Supervision or Setup 2=Maximal Assistance 6=Modified [place] 3=Moderate Assistance 7=Complete [place] ADL-Treatment Co treat this visit, as skill of 2 clinicians indicated to facilitate UE use, positioning and strengthening, active standing activity for strengthening and balance for functional transfers. PT worked on LE strengthening for transfers and beginning sequence of ambulation. OT worked on UE strengthening and lower body bathing/dressing. Monitored O2 sats level, 85-90 after standing for 3 min then with breathing increased to 91-97. See PT notes for standing and transfers. Pt declined shower/bathing and changing clothing. Pt min A for supine to sit using bedrails. Assist x2 for SPT, pt's B LE's shaking and knees buckling during standing. Verbal cues to use UE correctly during sit <--> stand transfers. Pt able to cleanse face and brush hair with UE's after set up. Dependent, assist x2, with lower body dressing and toileting. Pt able to only stand for short periods of time during toileting then knees buckled. Pt able to complete UE exercises incorporating breathing techniques, against gravity, 5x's each. After therapy, pt sitting in recliner with call light/ phone in reach. All needs met in room. Therapy Code Descriptions/Definitions Functional [place] Measure: 0=Not Assessed/NA 4=Minimal Assistance 1=Total Assistance 5=Supervision or Setup 2=Maximal Assistance 6=Modified [place] 3=Moderate Assistance 7=Complete [place] Therapy Quality Codes: 6 Independent with activity with or without an assistive device 5 Patient requires set up or clean up by helper. Patient completes activity by themselves 4 Supervision or touching assist (CGA). [place] provide cues , steadying assist 3 The helper provides less than half the effort to complete the activity 2 The helper provides more than half the effort to complete the activity 1 Dependent. The helper does all the effort to complete an activity 7 Patient refused to complete or attempt activity 9 The patient did not perform the activity before the current illness or injury 88 Not attempted due to Medical conditions or safety concerns Toileting (FIM): 1 Toileting Hygiene (QC): 1 Transfers (B, C, W/C) (FIM): 1 Toilet/Commode Transfer (FIM): 1 Toilet Transfer (QC): 1 OT Short Term Goals Short Term Goals Time Frame: Jul 15, 2018 Bathing(FIM): 4 Upper Body Dressing(FIM): 4 Lower Body Dressing(FIM): 3 Toileting(FIM): 3 Transfers (B,C,W/C) (FIM): 4 Toilet/Commode Transfer(FIM): 3 Shower Transfer(FIM): 3 Additional Short Term Goals: 1-Demonstrate ADL Tasks, 2-Verbalize Understanding , 3-ImproveStrength/Unique 1=Demonstrate adherence to instructed precautions during ADL tasks. 2=Patient will verbalize/demonstrate understanding of assistive devices/ modifications for ADL. 3=Patient will improve strength/tolerance for activity to enable patient to perform ADL's. OT Skilled Nursing Goals Skilled Nursing Goals Time Frame: July 29, 2018 Eating (FIM): 7 Eating (QC): 6 Groomin Oral Hygiene (QC): 6 Bathing(FIM): 5 Shower/Bathe Self (QC): 4 Upper Body Dressing(FIM): 6 Upper Body Dressing (QC): 6 Lower Body Dressing(FIM): 5 Lower Body Dressing (QC): 4 On/Off Footwear (QC): 5 Toileting(FIM): 5 Toileting Hygiene (QC): 4 Toilet/Commode Transfer(FIM): 5 Toilet/Commode Transfer (QC): 5 Shower Transfer(FIM): 5 Additional Goals: 1-Demonstrate ADL Tasks, 2-Verbalize Understanding, 3- ImproveStrength/Unique 1=Demonstrate adherence to instructed precautions during ADL tasks. 2=Patient will verbalize/demonstrate understanding of assistive devices/ modifications for ADL. 3=Patient will improve strength/tolerance for activity to enable patient to perform ADL's. OT Education/Plan Problem List/Assessment Assessment: Decreased Activ Tolerance, Decreased UE Strength, Dependent Transfers, Impaired Self-Care Skills, Restricted Funct UE ROM Pt demonstrates decreased ADL functioning, mobility, balance, strength, and activity tolerance. Pt to benefit from skilled OT intervention for ADL training , transfers, strengthening, adaptive equipment training as needed, and home safety education to increase functional independence and allow safe discharge home. Discharge Recommendations Plan/Recommendations: Continue POC Treatment Plan/Plan of Care Patient would benefit from OT for education, treatment and training to promote independence in ADL's, mobility, safety and/or upper extremity function for ADL' s. Plan of Care: ADL Retraining, Functional Mobility, Group Exercise/Act as Ind, UE Funct Exercise/Act Treatment Duration: July 29, 2018 Frequency: At least 5 of 7 days/Wk (IRF) Estimated Hrs Per Day: 1.5 hours per day Agreement: Yes Rehab Potential: Good Time/GCodes Start Time: 08:00 Stop Time: 09:00 Total Time Billed (hr/min): 60 Billed Treatment Time 1 visit-ADL 2 (30 min) FA 2 (30 min) co-treat 60 min ARNAUD DIA Jul 10, 2018 08:58
[2018-07-10 09:05] LABS: HEMATOCRIT 26 % (35-52); HEMOGLOBIN 8.1 G/DL (11.5-16.0); MEAN CORPUSCULAR HEMOGLOBIN 28 PG (25-34); MEAN CORPUSCULAR HGB CONC 31 G/DL (32-36); MEAN CORPUSCULAR VOLUME 90 FL (80-99); PLATELET COUNT 81 10^3/uL (130-400); RED CELL DISTRIBUTION WIDTH 23.2 % (10.0-14.5); WHITE BLOOD COUNT 24.5 10^3/uL (4.3-11.0)
[2018-07-10 09:17] LABS: ALBUMIN 3.3 GM/DL (3.2-4.5); BILIRUBIN,TOTAL 1.1 MG/DL (0.1-1.0); CALCIUM 8.7 MG/DL (8.5-10.1); CREATININE SERUM 1.41 MG/DL (0.60-1.30); MAGNESIUM 2.9 MG/DL (1.8-2.4); POTASSIUM 4.7 MMOL/L (3.6-5.0); TOTAL PROTEIN 6.5 GM/DL (6.4-8.2)
[2018-07-10] MEDS: MICONAZOLE 2% POWDER (DESENEX AF) 90 GM TOP SCH ×2 (09:25→20:40)
--- NOTE | 2018-07-10 09:34 | NUR ---
Lt arm B/P 94/59, Rt 159/70. Notified Dr. Marilynn betancourt regards whether to give Aldactone & Lopressor. rec'd orders to give meds, based on the higher B/P on the right.
--- NOTE | 2018-07-10 09:53 | ST Cognitive Linguistic Eval ---
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 Subjective The patient was pleasant and cooperative with the cognitive evaluation process. Language Eval: Auditory Comprehends Simple Yes/No Ques: Functional Indent/Objects Multiple [place]: Functional Ident/Pics in Multiple [place]: Functional Follows 1-Step Commands: Functional Follows Complex Directions: Functional Follows General Conversations: Functional Language Eval: Verbal Language Completes Spontaneous Greeting: Functional Produces Auto, Serial Info: Functional Imitates Simple Words/Phrases: Functional Word Finding: Functional Requests Basic Needs: Functional States Basic Personal Info: Functional Expresses Complex Ideas: Functional Objective Cognitive Domain Attention: WNL Memory: WNL Problem Solving: Functional Executive Functions: WNL Visuospatial Skills: WNL Composite Severity Rating: WNL Clock Drawing Severity Rating: WNL Objective Formal/Standardized Tests [place] Cognitive Assessment (MOCA) Results Visuospatial/Executive: 5/5, Namin/3, Memory: Immediate 5/5, Delayed 4/5, Attention: 6/6, Language: 3/3, Abstraction: 2/2, Orientation 6/6 Oral Motor/Speech Production Within functional limits Impression The patient is a 52 year old female who was admitted to the ARU for strengthening so that she can safely return home. The patient was evaluated for cognitive-communication with the MOCA. She completed all areas within normal limits.The patient does not require skilled ST services at this time. Communication/Social Cognition Comprehension: 7 Expression: 7 Social Interaction: 7 Problem Solvin Memory: 7 Speech Patient Assess Expression of Ideas/Wants: Expression (4) Understanding Verbal Content: Understands (4) Brief Interview-Mental Status: Yes Repetition of Three Words: Three (3) Temporal Orientation: Year: Correct (3) Temporal Orientation: Month: Accurate within 5 days(2) Temporal Orientation: Day: Correct (1) Recall : Wear to say "Sock": Yes, no cue required (2) Recall : Color: Yes, no cue required (2) Recall : Bed: Yes, no cue required (2) Memory/Recall Ability: Current season, Location of own room, Staff names and faces, That he or she is in a hsp/hsp unit Speech-Plan Patient/Family Goals Patient/Family Goals: The patient plans to return home with her post rehab. Treatment Plan Speech Therapy Treatment Plan: Discontinue ST The patient does not warrant skilled ST services at this time. Treatment Duration: Jul 10, 2018 Frequency: 1 time per week Estimated Hrs Per Day: .25 hour per day Rehab Potential: Good Barriers to Learning: None identified Pt/Family Agrees to Plan: Yes Safety Risks/Education Teaching Recipient: Patient Teaching Methods: Discussion Response to Teaching: Verbalize Understanding Education Topics Provided: Safety within his room Time Speech Therapy Time In: 09:15 Speech Therapy Time Out: 09:30 Total Billed Time: 15 Billed Treatment Time 1, GEMINI Peralta Jul 10, 2018 09:53
--- NOTE | 2018-07-10 10:25 | NUR ---
SUPERVISOR INSPECTION ROOM met with patient to complete initial assessment. Patient was alert and oriented and agreeable to assessment. Patient known to SUPERVISOR INSPECTION ROOM as she previously admitted to ARU last month for hepatic encephalopathy. However, patient was emergently transferred to ICU due to respiratory failure, and then transferred to for acute kidney injury along with other multi-organ complications. 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 Patient and spouse reside in a one level home in [place], [place]. Prior to hospitalization patient reports a decrease in function approx 2 weeks to original hospitalization in May and an increase in fatigue. Per patient, she did not utilize equipment however does possess a wheelchair, cane, walker, and bedside commode. Patient expresses interest in obtaining a shower chair at discharge. Patient's spouse typically supervises patient during showers as she is fearful of falling and becomes weak in her lower extremities. Patient identifies spouse, as primary contact at [phone] and mother, Christina as a secondary contact at [phone]. PCP identified as Dr. Bunch of [place], [place]. Insurance verified as [employer] with prescription coverage. She prefers to utilize [facility] for pharmacy needs. SUPERVISOR INSPECTION ROOM reviewed typical ARU length of stay, weekly insurance updates and weekly team conference meetings. Patient expresses no concerns at this time. SUPERVISOR INSPECTION ROOM will continue to follow for additional needs.
--- NOTE | 2018-07-10 10:58 | Occupational Ther Daily Note ---
OT Current Status-Daily Note Subjective Pt alert, lying in bed. Procedure just completed in room with pt. Pt agrees to therapy. Mental Status/Objective Patient Orientation: Person, Place, Time, Situation Therapy Code Descriptions/Definitions Functional [place] Measure: 0=Not Assessed/NA 4=Minimal Assistance 1=Total Assistance 5=Supervision or Setup 2=Maximal Assistance 6=Modified [place] 3=Moderate Assistance 7=Complete [place] ADL-Treatment Therapy Code Descriptions/Definitions Functional [place] Measure: 0=Not Assessed/NA 4=Minimal Assistance 1=Total Assistance 5=Supervision or Setup 2=Maximal Assistance 6=Modified [place] 3=Moderate Assistance 7=Complete [place] Therapy Quality Codes: 6 Independent with activity with or without an assistive device 5 Patient requires set up or clean up by helper. Patient completes activity by themselves 4 Supervision or touching assist (CGA). [place] provide cues , steadying assist 3 The helper provides less than half the effort to complete the activity 2 The helper provides more than half the effort to complete the activity 1 Dependent. The helper does all the effort to complete an activity 7 Patient refused to complete or attempt activity 9 The patient did not perform the activity before the current illness or injury 88 Not attempted due to Medical conditions or safety concerns Grooming (FIM): 5 Oral Hygiene (QC): 5 Other Treatment Pt able to complete bed mobility using bed rails and bed tilt to scoot up in bed. Pt able to roll side to side using bed rails by self. After given supplies, pt able to complete own grooming. Pt given medium resistance theraband and therapy foam for use in room. Pt complete therapy sponge exercises 20 reps. Pt was educated on using theraband and then verbalized understanding of how to complete. Pt had just finished procedure with L UE, did not complete exercises at this time. Pt instructed to use items throughout day and increasing in reps. Will continue to monitor for correct technique. After therapy, pt lying in bed with call light/phone in reach. All needs met in room. OT Short Term Goals Short Term Goals Time Frame: Jul 15, 2018 Bathing(FIM): 4 Upper Body Dressing(FIM): 4 Lower Body Dressing(FIM): 3 Toileting(FIM): 3 Transfers (B,C,W/C) (FIM): 4 Toilet/Commode Transfer(FIM): 3 Shower Transfer(FIM): 3 Additional Short Term Goals: 1-Demonstrate ADL Tasks, 2-Verbalize Understanding , 3-ImproveStrength/Unique 1=Demonstrate adherence to instructed precautions during ADL tasks. 2=Patient will verbalize/demonstrate understanding of assistive devices/ modifications for ADL. 3=Patient will improve strength/tolerance for activity to enable patient to perform ADL's. OT [place] Goals Chcf Goals Time Frame: July 29, 2018 Eating (FIM): 7 Eating (QC): 6 Groomin Oral Hygiene (QC): 6 Bathing(FIM): 5 Shower/Bathe Self (QC): 4 Upper Body Dressing(FIM): 6 Upper Body Dressing (QC): 6 Lower Body Dressing(FIM): 5 Lower Body Dressing (QC): 4 On/Off Footwear (QC): 5 Toileting(FIM): 5 Toileting Hygiene (QC): 4 Toilet/Commode Transfer(FIM): 5 Toilet/Commode Transfer (QC): 5 Shower Transfer(FIM): 5 Additional Goals: 1-Demonstrate ADL Tasks, 2-Verbalize Understanding, 3- ImproveStrength/Unique 1=Demonstrate adherence to instructed precautions during ADL tasks. 2=Patient will verbalize/demonstrate understanding of assistive devices/ modifications for ADL. 3=Patient will improve strength/tolerance for activity to enable patient to perform ADL's. OT Education/Plan Problem List/Assessment Assessment: Decreased Activ Tolerance, Decreased UE Strength, Dependent Transfers, Impaired Self-Care Skills, Restricted Funct UE ROM Pt demonstrates decreased ADL functioning, mobility, balance, strength, and activity tolerance. Pt to benefit from skilled OT intervention for ADL training , transfers, strengthening, adaptive equipment training as needed, and home safety education to increase functional independence and allow safe discharge home. Discharge Recommendations Plan/Recommendations: Continue POC Treatment Plan/Plan of Care Patient would benefit from OT for education, treatment and training to promote independence in ADL's, mobility, safety and/or upper extremity function for ADL' s. Plan of Care: ADL Retraining, Functional Mobility, Group Exercise/Act as Ind, UE Funct Exercise/Act Treatment Duration: July 29, 2018 Frequency: At least 5 of 7 days/Wk (IRF) Estimated Hrs Per Day: 1.5 hours per day Agreement: Yes Rehab Potential: Good Time/GCodes Start Time: 10:30 Stop Time: 11:00 Total Time Billed (hr/min): 30 Billed Treatment Time 1 visit-FA 1 (20 min) EX 1 (10 min) ARNAUD DIA Jul 10, 2018 10:58
--- NOTE | 2018-07-10 11:37 | Physical Therapy Daily Note ---
PT Daily Note-Current Subjective pt agreeable to PT session, denies pain, states she is feeling weak and shakey Pain Numeric Pain Scale: 0-No Pain Appearance Pt supine in bed upon arrival, awake and alert Co treat with OT requiring the skills, knowledge and judgement fo both disciplines to allow patient to receive optimal benefit from skilled therapy intervention At end of session, pt sitting up in recliner, call light, phone and bedside table within reach, lab staff with patient Mental Status Patient Orientation: Person, Place, Time, Situation Attachments: Oxygen Transfers Therapy Code Descriptions/Definitions Functional [place] Measure: 0=Not Assessed/NA 4=Minimal Assistance 1=Total Assistance 5=Supervision or Setup 2=Maximal Assistance 6=Modified [place] 3=Moderate Assistance 7=Complete [place] Therapy Quality Codes: 6 Independent with activity with or without an assistive device 5 Patient requires set up or clean up by helper. Patient completes activity by themselves 4 Supervision or touching assist (CGA). [employer] provide cues , steadying assist 3 The helper provides less than half the effort to complete the activity 2 The helper provides more than half the effort to complete the activity 1 Dependent. The helper does all the effort to complete an activity 7 Patient refused to complete or attempt activity 9 The patient did not perform the activity before the current illness or injury 88 Not attempted due to Medical conditions or safety concerns Transfers (B, C, W/C) (FIM): 4 Scootin Rollin Supine to/from Sit: 4 Sit to/from Stand: 4 pt requiring physical assist, verbal instruction and tactile cueing from BUSINESS ANALYSIS SPECIALIST and BENSON to safely perform transitions, re instruction required for hand placement at times. HOB elevated during supine to sit transfers to allow pt to perform transition with decreased SOA and effort for energy conservation Wheelchair Training Wheelchair (FIM): 4 Wheelchair Distance: 1=up to 49 ft Distance: 60' Wheelchair Level of Assist: 4 Type of Wheelchair: Manual Assisted guiding w/c while pt propelled with LE's Exercises Seated Therapy Exercises: Ankle pumps, Sit to stand, Long arc quads, Hip flexion Standing: Mini squats (x10), Weight shifts (x10 each side) Standing Reps: 5 (each LE: fwd lunge, lateral lungestanging ex's performed in / / bars) Treatments bed mobility, transfers, luther care, dressing, safety, balance, activity tolerance, functional mobility, strengthening, energy conservation, breathing techniques. Co treat with OT due to need for skill of 2 therapists for pt to receive optimal benefit from skilled therapy intervention. Pt requiring inst for safety with hand placement during transitions, unable to hold LE in static position, LE tremors and shaking with wt bearing, fatigues quickly requiring several sitting rest breaks, O2 sats decrease with activity but able to increase with inst in breathing techniques, pt unable to complete tasks without SOA, decreasing O2 sat and quickly fatiguing Assessment Current Status: Good Progress PT Short Term Goals Short Term Goals Time Frame: July 22, 2018 Transfers (B,C,W/C) (FIM): 4 Gait (FIM): 4 PT Fdc Goals Optician Goals PT Fdc Goals Time Frame: August 05, 2018 Transfers (B,C,W/C) (FIM): 6 Sit to Lying (QC): 6 Lying-Sitting on Side/Bed(QC): 6 Sit to Stand (QC): 6 Roll Left to Right (QC): 6 Chair/Eit-yf-Qufph Xfer(QC): 6 Car Transfer (QC): 6 Does the Patient Walk: Yes Gait (FIM): 6 Gait distance (FIM): 3=150 ft Walk 10 feet (QC): 6 Walk 10ft-Uneven Surface(QC): 6 Walk 50ft with 2 Turns (QC): 6 Walk 150 ft (QC): 6 Gait Assistive Device: FWW Stairs (FIM): 5 # of Steps: 4 1 Step (curb) (QC): 6 4 Steps (QC): 6 12 Steps (QC): 88 Picking up an Object (QC): 4 PT Plan Treatment/Plan Treatment Plan: Continue Plan of Care Treatment Plan: Bed Mobility, Education, Functional Activity Unique, Functional Strength, Group Therapy, Gait, Safety, Therapeutic Exercise, Transfers Treatment Duration: August 05, 2018 Frequency: At least 5 of 7 days/Wk (IRF) Estimated Hrs Per Day: 1.5 hours per day Patient and/or Family Agrees t: Yes Safety Risks/Education Patient Education: Transfer Techniques, W/C Management, Safety Issues Teaching Recipient: Patient Teaching Methods: Demonstration, Discussion Response to Teaching: Verbalize Understanding, Return Demonstration, Reinforcement Needed Time/GCodes Time In: 800 Time Out: 900 Total Billed Treatment Time: 60 Total Billed Treatment 1 visit, FA x2, EX x2 co tx with OT GUY WHEAT BUSINESS ANALYSIS SPECIALIST Jul 10, 2018 11:37
[2018-07-10] MEDS ORDERED: FUROSEMIDE 40 MG/4 ML INJ (LASIX) IVP SCH ×2 (14:00)
[2018-07-10 15:40] VITALS: BP 122/72
--- NOTE | 2018-07-10 16:28 | Pulmonary Consultation ---
History of Present Illness History of Present Illness Date of Consultation 07/10/18 16:28 Time Seen by Provider: 14:52 Date of Admission History of Present Illness 52yo with hx of morbid obesity, CKD, OHS/NABIL, and recent hospitalization here prior to being referred to [facility] transferred back to our rehab unit for rehabilitation. Pt states her SOB is much improved and she is feeling much better. I am consulted for pulmonary management. Allergies and Home Medications Allergies Coded Allergies: hydromorphone (Verified Allergy, Severe, ANAPHYLAXIS, 06/18/18) metoclopramide (Unverified Allergy, Unknown, 07/21/16) Home Medications Acetaminophen 325 Mg Tablet, 650 MG PO Q4H PRN for PAIN-MILD, (Reported) MAX OF 4000MG IN 24 HOURS Amitriptyline HCl 25 Mg Tablet, 25 MG PO HS, (Reported) Bumetanide 1 Mg Tablet, 1 MG PO DAILY, (Reported) Carisoprodol 350 Mg Tablet, 350 MG PO TID PRN for MUSCLE SPASMS, (Reported) Cyclobenzaprine HCl 10 Mg Tablet, 10 MG PO TID PRN for MUSCLE SPASMS, (Reported) Eltrombopag Olamine 50 Mg Tablet, 100 MG PO DAILY, (Reported) TAKES 2 (50MG) TABLETS DAILY ON AN EMPTY STOMACH (AT LEAST 1 HOUR BEFORE OR 2 HOURS AFTER FOOD) SEPARATE ANTACIDS BY AT LEAST 4 HOURS Fluoxetine HCl 20 Mg Capsule, 20 MG PO DAILY, (Reported) Gabapentin 300 Mg Capsule, 300 MG PO DAILY PRN for NEUROPATHY PAIN, (Reported) Gabapentin 300 Mg Capsule, 600 MG PO 1200,2100 PRN for NEUROPATHY PAIN, ( Reported) Insulin Glargine,Hum.rec.anlog 100 Unit/1 Ml Insuln.pen, 50 UNIT SQ BID, ( Reported) Insulin Lispro 100 Unit/1 Ml Insuln.pen, 18 UNIT SQ TIDAC, (Reported) Lactulose 10 Gm/15 Ml Solution, 20 GM PO QID, (Reported) Lisinopril 10 Mg Tablet, 10 MG PO DAILY, (Reported) Loratadine 10 Mg Tablet, 10 MG PO DAILY, (Reported) Rifaximin 550 Mg Tablet, 550 MG PO BID, (Reported) Past [id number] Hx Past Med/Social Hx: Reviewed Nursing Past Med/Soc Hx, Reviewed and Corrections made Patient Social History Alcohol Use: Denies Use Number of Drinks Today: HH Alcohol Beverage of Choice: Wine Recreational Drug Use: No Smoking Status: Never a Smoker Recent Foreign Travel: No Contact w/Someone Who Travel: No Recent Infectious Disease Expo: No Recent Hopitalizations: Yes (ARDS, disuse myopothy) Immunizations Up To Date PED Vaccines UTD: Yes Seasonal Allergies Seasonal Allergies: Yes Past Medical History Surgeries: Yes (spleenectomy AGE 8 R/T ITP ) Section, Hysterectomy Respiratory: Yes (ARDS) Pneumonia Currently Using CPAP: No Currently Using BIPAP: Yes Cardiac: Yes Chronic Edema/Swelling, Hypertension Neurological: No Neuropathy Reproductive Disorders: No Genitourinary: Yes Bladder Infection, Renal Failure Gastrointestinal: Yes Gastroesophageal Reflux, Liver Disease/Jaundice, Chronic Constipation, Esophageal Varices, Hepatitis, Cirrhosis Musculoskeletal: Yes Chronic Back Pain Endocrine: Yes Diabetes, Insulin dep HEENT: No Loss of Vision: Denies Hearing Impairment: Denies Cancer: No Psychosocial: Yes Depression Integumentary: No Blood Disorders: Yes (remote history of ITP) Family Medical History Patient reports no known family medical history. No Pertinent Family Hx Sepsis Event Evaluation Height, Weight, BMI Height: 5'6.00" Weight: 278lbs. 8.0oz. [id number]; 43.4 BMI Method:Stated Exam Exam Vital Signs Date Time Temp Pulse Resp B/P (MAP) Pulse Ox O2 Delivery O2 Flow Rate FiO2 07/10/18 15:40 98.0 71 20 122/72 (89) 97 Nasal Cannula 2.00 07/10/18 08:53 159/70 (99) 07/10/18 08:51 98.4 69 20 94/59 (71) 95 Nasal Cannula 2.00 07/10/18 08:48 Nasal Cannula 2.00 07/10/18 05:29 97.9 74 20 119/72 (88) 93 Nasal Cannula 2.00 07/10/18 01:15 35.00 07/09/18 21:00 Nasal Cannula 2.00 07/09/18 20:55 73 18 95 35.00 07/09/18 20:31 Nasal Cannula 2.00 07/09/18 17:14 98.0 76 20 138/76 (96) 94 Nasal Cannula 2.00 I & O 07/10/18 07:00 Intake Total 1285 ml Balance 1285 ml Height & Weight Height: 5'6.00" Weight: 278lbs. 8.0oz. 126.594164dz; 43.4 BMI Method:Stated General Appearance: No Apparent Distress, WD/WN, Chronically ill, Obese HEENT: PERRL/EOMI, Normal ENT Inspection, Pharynx Normal, Moist Mucous Membranes Neck: Full Range of Motion, Normal Inspection, Non Tender, Supple Respiratory: Chest Non Tender, Lungs Clear, Normal Breath Sounds, No Accessory Muscle Use, No Respiratory Distress Cardiovascular: Regular Rate, Rhythm, No Edema, No Gallop, No JVD, No Murmur Extremity: Normal Capillary Refill, Normal Inspection, Normal Range of Motion, Non Tender, No Calf Tenderness, No Pedal Edema Neurologic/Psychiatric: Alert, Oriented x3, Normal Mood/Affect, Motor Weakness (3/5 all extremities) Skin: Normal Color, Warm/Dry Lymphatic: No Adenopathy Results Lab Laboratory Tests 07/10/18 08:45 Assessment/Plan Assessment/Plan Morbid obesity with OHS/NABIL -BiPAP QHS and PRN chronic renal failure -monitor Debility -PT/OT -Rehab DM type II Hepatic Anemia -Monitor Hx splenectomy Hx of Hep C Valerio Thrombocytopenia/ ITP hx End Stage liver disease Chronic back pain Hepatic encephalopathy NAIDA HUGGINS DO Jul 10, 2018 16:28
--- NOTE | 2018-07-10 16:34 | Consultation-Cardiology ---
HPI-Cardiology Cardiology Consultation: Date of Consultation 07/10/18 Date of Admission Attending Physician Tita Subramanian DO Admitting Physician Danae,Local Physician Consulting Physician Bj OLVERA MD HPI: Time Seen by a Provider: 16:34 Chief Complaint: Shortness of breath This is a 52-year-old lady with complex medical history who was admitted to our hospital earlier in the month and then transferred to . She is now transferred back for inpatient rehabilitation. She has history of type II respiratory failure with obesity hypoventilation syndrome. Obstructive sleep apnea. Chronic kidney disease. Hypertension, diabetes, ITP, status post splenectomy, chronic prednisone, liver cirrhosis with non-alcoholic steatohepatitis and fluid overload. It apparently she was diuresed significantly at and lost 40 pounds. However she has gained 8 pounds recently. She denies any chest pain and obvious shortness of breath. She was seen by Dr. Adamson on her earlier admission. Review of Systems-Cardiology Review of Systems Constitutional: As described under HPI; No As described under HPI, No no symptoms reported, No chills, No fever, No lightheadedness; weight gain Eyes: No As described under HPI, No no symptoms reported, No blindness, No blurred vision, No contact lenses, No drainage, No decreased acuity, No foreign body sensation, No pain, No vision change Ears/Nose/Throat: No As described under HPI, No no symptoms reported, No chronic hearing loss, No ear discharge, No ear pain, No nasal drainage, No ulcerations Respiratory: No no symptoms reported; As described under HPI; No As described under HPI, No cough, No orthopnea; shortness of breath; No SOB with excertion Cardiovascular: No no symptoms reported; As described under HPI; No As described under HPI, No chest pain, No edema, No irregular heart rate, No lightheadedness, No palpitations Gastrointestinal: No no symptoms reported, No As described under HPI; abdomen distended; No abdominal pain, No blood streaked bowels, No constipation, No diarrhea, No nausea, No vomiting, No stool coloration changes Genitourinary: No As described under HPI, No burning, No dysuria, No discharge , No frequency, No flank pain, No hematuria, No urgency : Yes : No Skin: No rash, No skin related problems, No ulcerations Psychiatric/Neurological: No anxiety, No depression, No seizure, No focal weakness, No syncope Hematologic: No bleeding abnormalities All Other Systems Reviewed Negative Unless Noted: Yes RMS-[id number]-[id number] Hx Patient Social History Marrital Status: Employed/Student: employed Alcohol Use: Denies Use Recreational Drug Use: No Smoking Status: Never a Smoker Recent Foreign Travel: No Recent Infectious Disease Expo: No Physical Abuse Screen: No Sexual Abuse: No Past Medical History PMH As described under Assessment. Family Medical History Family History: Patient reports no known family medical history. Allergies and Home Medications Allergies Coded Allergies: hydromorphone (Verified Allergy, Severe, ANAPHYLAXIS, 06/18/18) metoclopramide (Unverified Allergy, Unknown, 07/21/16) Home Medications Acetaminophen 325 Mg Tablet, 650 MG PO Q4H PRN for PAIN-MILD, (Reported) MAX OF 4000MG IN 24 HOURS Amitriptyline HCl 25 Mg Tablet, 25 MG PO HS, (Reported) Duloxetine HCl 30 Mg Capsule.dr, 30 MG PO DAILY, (Reported) Eltrombopag Olamine 50 Mg Tablet, 100 MG PO DAILY, (Reported) TAKES 2 (50MG) TABLETS DAILY ON AN EMPTY STOMACH (AT LEAST 1 HOUR BEFORE OR 2 HOURS AFTER FOOD) SEPARATE ANTACIDS BY AT LEAST 4 HOURS Furosemide 40 Mg Tablet, 40 MG PO 0900,1500, (Reported) Insulin Glargine,Hum.rec.anlog 100 Unit/1 Ml Insuln.pen, 40 UNIT SQ HS, ( Reported) Insulin Lispro 100 Unit/1 Ml Insuln.pen, 8-13 UNIT SQ TIDAC, (Reported) GIVE 8 UNITS THREE TIMES DAILY WITH MEALS GIVE ADDITIONAL IF: BS 201-250 = 1 UNIT BS 251-300 = 2 UNITS BS 301-350 = 3 UNITS BS 351-400 = 4 UNITS BS >400 = 5 UNITS Lactulose 10 Gm/15 Ml Solution, 20 GM PO QID, (Reported) Loratadine 10 Mg Tablet, 10 MG PO DAILY, (Reported) Magnesium Oxide 400 Mg Tablet, 400 MG PO BID, (Reported) Metoprolol Tartrate 25 Mg Tablet, 12.5 MG PO BID, (Reported) TAKES 1/2 (25MG) TABLET Multivitamin with Minerals 1 Each Tablet, 1 TAB PO DAILY, (Reported) Nystatin 60 Gm Powder, TP UD, (Reported) APPLY UNDER BREAST Polyethylene Glycol 3350 17 Gm Powd.pack, 17 GM PO TIDAC, (Reported) TITRATE TO 2-3 BOWEL MOVEMENTS PER DAY Pregabalin 75 Mg Capsule, 75 MG PO BID, (Reported) Rifaximin 550 Mg Tablet, 550 MG PO BID, (Reported) Spironolactone 25 Mg Tablet, 25 MG PO DAILY, (Reported) Tizanidine HCl 4 Mg Tablet, 4 MG PO Q8H PRN for MUSCLE SPASMS, (Reported) Patient Home Medication List Home Medication List Reviewed: Yes Physical Exam-Cardiology Physical Exam Vital Signs/I&O 07/10/18 07/10/18 07/10/18 07/10/18 05:29 08:48 08:51 08:53 Temp 97.9 98.4 Pulse 74 69 Resp 20 20 B/P (MAP) 119/72 (88) 94/59 (71) 159/70 (99) Pulse Ox 93 95 O2 Delivery Nasal Cannula Nasal Cannula Nasal Cannula O2 Flow Rate 2.00 2.00 2.00 07/10/18 15:40 Temp 98.0 Pulse 71 Resp 20 B/P (MAP) 122/72 (89) Pulse Ox 97 O2 Delivery Nasal Cannula O2 Flow Rate 2.00 07/10/18 00:00 Intake Total 785 ml Balance 785 ml Capillary Refill : Constitutional: appears stated age; No apparent distress; well-developed, well- nourished HEENT: PERRL; No discharge; hearing is well preserved, oral hygience is good; No ulceration, No xanthelasmas are seen Neck: No carotid bruit; carotid pulses are 2 + bilaterally Respiratory: No accessory muscle use, No respiratory distress, No chest tender , No chest expansion is symmetric; chest is bilaterally symmetric; No lungs clear to percussion; lungs clear to auscultation; No crackles, No rhonchi, No rales, No stridor, No wheezing, No pleural rub, No other Cardiovascular: regular rate-rhythm; No irregularly irregular, No extra beats, No parasternal heave is noted, No JVD; edema; No bradycardia, No tachycardia, No point of maximal impulse, No cardiac thrills are palpable; S1 and S2; No gallop/S3, No gallop/S4, No diastolic murmur, No systolic murmur, No friction rub, No click, No other Gastrointestinal: distended; No spleenomegaly Rectal: deferred Extremities: No normal range of motion, No non-tender, No normal inspection, No pedal edema, No calf tenderness, No normal capillary refill, No pelvis stable , No calf tenderness, No inflammation, No pedal edema, No slow capillary refill , No swelling, No other, No abrasion, No clubbing, No cyanosis, No ecchymosis, No laceration, No no lower extremity edema bilateral, No significant edema, No tenderness, No wound Neurologic/Psychiatric: no motor/sensory deficits, alert, normal mood/affect, oriented x 3, power is 5/5 both on sides Skin: No rash, No ulcerations Data Review Labs Laboratory Tests 07/09/18 16:49: Glucometer 117H 07/09/18 20:19: Glucometer 167H 07/10/18 05:09: Glucometer 210H 07/10/18 08:45: White Blood Count 24.5H, Red Blood Count 2.93L, Hemoglobin 8.1L, Hematocrit 26L , Mean Corpuscular Volume 90, Mean Corpuscular Hemoglobin 28, Mean Corpuscular Hemoglobin Concent 31L, Red Cell Distribution Width 23.2H, Platelet Count 81L, Mean Platelet Volume , Sodium Level 140, Potassium Level 4.7, Chloride Level 106 , Carbon Dioxide Level 26, Anion Gap 8, Blood Urea Nitrogen 26H, Creatinine 1.41H, Estimat Glomerular Filtration Rate 39, BUN/Creatinine Ratio 18, Glucose Level 137H, Calcium Level 8.7, Corrected Calcium 9.3, Magnesium Level 2.9H, Total Bilirubin 1.1H, Aspartate Amino Transf (AST/SGOT) 39H, Alanine Aminotransferase (ALT/SGPT) 20, Alkaline Phosphatase 103, Ammonia 68H, Total Protein 6.5, Albumin 3.3 07/10/18 11:23: Glucometer 106 07/10/18 15:38: Glucometer 138H A/P-Cardiology Assessment/Admission Diagnosis Fluid overload, Chronic kidney disease, Obesity hypoventilation syndrome, Obstructive sleep apnea, Liver cirrhosis with nonalcoholic steatohepatitis, History of hepatitis C, Diabetes, Hypertension, Chronic use of steroids. Plan Fluid overload, agree with IV Lasix 40 mg twice a day. Please schedule it 7 a.m. and 12 noon. Echocardiogram to be done tomorrow morning. Chronic kidney disease, stable. Obesity hypoventilation syndrome, Obstructive sleep apnea, Liver cirrhosis with nonalcoholic steatohepatitis, History of hepatitis C, Diabetes, on insulin. Hypertension, Chronic use of steroids Dr. Adamson to take over care. Thank you for your consultation. Please call me if you have any questions. Pedrito Olvera MD, FACP, FACC, FSCAI, FHRS, CCDS Interventional Cardiology Cardiac Electrophysiology Vascular Medicine and Endovascular Interventions Clinical Quality Measures DVT/VTE Risk/Contraindication: Risk Factor Score Per Nursin RFS Level Per Nursing on Admit: 4+=Very High Bj OLVERA MD Jul 10, 2018 4:34 pm
[2018-07-10] MEDS: ACETAMINOPHEN 325 MG TABLET PO PRN (17:31)
[2018-07-10] MEDS: AMITRIPTYLINE 25 MG (ELAVIL) TAB PO SCH (20:35)
[2018-07-11] MEDS: PROMACTA 50 MG PO SCH (05:24)
[2018-07-11] MEDS: MULTIVIT W/MINERALS TAB (THERAGRAN M) PO SCH (05:24)
[2018-07-11] MEDS: LACTULOSE SYRUP 10GM/15ML (ENULOSE) 30ML UDC PO SCH ×2 (05:25→16:48)
[2018-07-11 05:29] LABS: BASOPHILS # (AUTO) 0.3 10^3/uL (0.0-0.1); BASOPHILS % (AUTO) 1 % (0-10); HEMATOCRIT 23 % (35-52); HEMOGLOBIN 7.5 G/DL (11.5-16.0); MEAN CORPUSCULAR HEMOGLOBIN 29 PG (25-34); MEAN CORPUSCULAR HGB CONC 32 G/DL (32-36); MEAN CORPUSCULAR VOLUME 89 FL (80-99); RED CELL DISTRIBUTION WIDTH 22.6 % (10.0-14.5); WHITE BLOOD COUNT 22.6 10^3/uL (4.3-11.0)
[2018-07-11 05:36] LABS: PLATELET COUNT 72 10^3/uL (130-400)
[2018-07-11 05:37] LABS: EOSINOPHILS % (AUTO) 5 % (0-10); LYMPHOCYTES # (AUTO) 6.2 X 10^3 (1.0-4.0); LYMPHOCYTES % (AUTO) 27 % (12-44); MONOCYTES % (AUTO) 14 % (0-12); NEUTROPHILS # (AUTO) 11.9 X 10^3 (1.8-7.8); NEUTROPHILS % (AUTO) 53 % (42-75)
[2018-07-11 05:38] LABS: EOSINOPHILS # (AUTO) 1.1 10^3/uL (0.0-0.3); MONOCYTES # (AUTO) 3.1 X 10^3 (0.0-1.0)
[2018-07-11 05:41] VITALS: BP 101/53
[2018-07-11 05:49] LABS: BILIRUBIN,TOTAL 1.1 MG/DL (0.1-1.0); CALCIUM 8.4 MG/DL (8.5-10.1); CREATININE SERUM 1.65 MG/DL (0.60-1.30); POTASSIUM 5.3 MMOL/L (3.6-5.0); TOTAL PROTEIN 5.9 GM/DL (6.4-8.2)
[2018-07-11] MEDS: inSUlin ASPART (NovoLOG) 1 UNIT/0.01 ML (CHARGE PER UNIT) SC SCH ×3 (06:30→17:50)
--- NOTE | 2018-07-11 08:25 | PM&R Progress Note ---
Subjective HPI/CC On Admission Date Seen by Provider: Jul 11, 2018 Time Seen by Provider: 08:30 CC: Disuse myopathy HPI: This is a 52yoWF clinic patient of Dr Torres who presents back to [facility] where she was transferred from the ICU to [facility] on 06/24/18 due to worsened respiratory status and renal failure. Patient had a lengthy hospital course at [facility] from 06/24 until 07/07/18 which included aggressive diuresis which resulted in a 54# weight loss since last at [facility]. Patient required Lasix infusion and close Nephrology and Cardiology and Pulmonology monitoring during the course. Patient' s creatinine is 1.3 and currently tolerating Miralax and Lactulose QID to maintain low ammonia levels and platelets will be monitored closely and sent to Hematology at [facility] as requested. biPAP was placed on patient per Dr Wilkinson's direction last night at 15/7 pressure level. I reviewed extensive chart from [facility] and reviewed and reconciled and restarted all meds she was on at [facility]. Patient feels much better but she is frustrated because she cannot walk. Barriers to returning home with include regaining the ability to walk and prevent falls and improve ADL independence. PLOF was independent now she is 2 person assist. Subjective/Events-last exam Pt having tremors and noted ammonia level high at 65 down from 68 so will increase lactulose to TID from BID as she had requested when I proposed QID on admit Creatinine 1.6 after two doses of IV Lasix so will need to monitor closely 7lb weight loss where she had gained 8 lbs since she had been hospitalized here at [facility] inpatient rehab Will change Lasix to 40mg IV Q48hrs to salvage kidney function Echocardiogram has been ordered by Dr. Olvera Wears out quickly but participates in all therapy willingly and is motivated to improve Used BiPAP from 10pm to 5:30 am Appreciate Cardiology and Pulmonology expertise Reviewed therapy notes Checked meds and labs Conferred with school attendance secretary of Systems General: Fatigue Musculoskeletal: back pain Objective Exam Vital Signs Vital Signs Date Time Temp Pulse Resp B/P (MAP) Pulse Ox O2 Delivery O2 Flow Rate FiO2 07/11/18 15:24 97.4 68 16 110/67 (81) 97 Nasal Cannula 2.00 Capillary Refill : General Appearance: No Apparent Distress, WD/WN, Chronically ill, Obese HEENT: PERRL/EOMI, Normal ENT Inspection, Pharynx Normal, Moist Mucous Membranes Neck: Full Range of Motion, Normal Inspection, Non Tender, Supple Respiratory: Chest Non Tender, Lungs Clear, Normal Breath Sounds, No Accessory Muscle Use, No Respiratory Distress Cardiovascular: Regular Rate, Rhythm, No Edema, No Gallop, No JVD, No Murmur Gastrointestinal: Normal Bowel Sounds, No Organomegaly, No Pulsatile Mass, Non Tender, Soft Back: Normal Inspection, No CVA Tenderness, No Vertebral Tenderness Extremity: Normal Capillary Refill, Normal Inspection, Normal Range of Motion, Non Tender, No Calf Tenderness, No Pedal Edema Neurologic/Psychiatric: Alert, Oriented x3, Normal Mood/Affect, Motor Weakness (3/5 all extremities) Skin: Normal Color, Warm/Dry Lymphatic: No Adenopathy Results/Procedures Lab Laboratory Tests 07/11/18 05:19 07/11/18 16:30 Patient resulted labs reviewed. FIM Transfers Therapy Code Descriptions/Definitions Functional [place] Measure: 0=Not Assessed/NA 4=Minimal Assistance 1=Total Assistance 5=Supervision or Setup 2=Maximal Assistance 6=Modified [place] 3=Moderate Assistance 7=Complete [place] Therapy Quality Codes: 6 Independent with activity with or without an assistive device 5 Patient requires set up or clean up by helper. Patient completes activity by themselves 4 Supervision or touching assist (CGA). [place] provide cues , steadying assist 3 The helper provides less than half the effort to complete the activity 2 The helper provides more than half the effort to complete the activity 1 Dependent. The helper does all the effort to complete an activity 7 Patient refused to complete or attempt activity 9 The patient did not perform the activity before the current illness or injury 88 Not attempted due to Medical conditions or safety concerns Gait Training Does the Patient Walk?: Yes Distance (FIM): 1=up to 49 ft Gait Assistive Device: FWW Wheelchair Training Does the Pt Use a Wheelchair?: Yes Mental Status/Objective Comprehension: 7 Expression: 7 Social Interaction: 7 Problem Solvin Memory: 7 ADL-Treatment Feedin (set up by report) Eating (QC): 5 Groomin Oral Hygiene (QC): 5 Bathin Shower/Bathe Self (QC): 3 Upper Extremity Dressin Upper Body Dressing (QC): 3 Lower Extremity Dressin Lower Body Dressing (QC): 1 On/Off Footwear (QC): 1 Toiletin Toileting Hygiene (QC): 1 Toilet/Commode Transfer: 1 Toilet Transfer (QC): 1 Shower: 1 (assist x2 for safety) Assessment/Plan Assessment and Plan Assess & Plan/Chief Complaint Assessment: (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 to return home with (2) H/O splenectomy (3) ESSENTIAL (PRIMARY) HYPERTENSION (4) Hepatitis C virus infection resolved after antiviral drug therapy (5) Nocturnal hypoxemia-maintained on biPAP since admit to [facility] the first time (6) Liver cirrhosis secondary to [place] (7) Increased ammonia level-maintained on Lactulose and Miralax (8) Obesity (BMI 30-39.9) (9) History of ITP (10) End stage liver disease (11) Chronic back pain-increased since fall 6 weeks ago (12) History of pneumonia last on abx 06/24/18 (13) Thrombocytopenia (14) Renal insufficiency-monitor closely (15) LOCALIZED EDEMA-much improved (16) WEAKNESS (17) TYPE 2 DIABETES MELLITUS WITH DIABETIC POLYNEUROPATHY (18) Leukocytosis-chronic, bone marrow inconclusive so splenectomy likely source (19) Jaundice (20) Ascites (21) Anemia (22) Hepatic encephalopathy Plan: Monitor platelets, Hgb, creat and ammonia closely Lactulose and Miralax to prevent ammonia elevation but change Lactulose to TID instead of just BID to decrease ammonia Diuretics as scheduled IV QOD Intensive therapies biPAP 02/[address] Wilkinson Accuchecks ADA and low sodium diet Fluid restriction 1500cc/day Midline yesterday and changed Lasix to IV Consult Dr Olvera correctional therapy director for Dr Adamson (1) Disuse muscle atrophy (2) Diabetes mellitus (3) Fall Resolution Date/Time: 06/18/18 @ 13:53 (4) History of acute respiratory failure (5) History of hematemesis (6) VENOUS INSUFFICIENCY (CHRONIC) (PERIPHERAL) (7) DIFFICULTY IN WALKING, NOT ELSEWHERE CLASSIFIED (8) Respiratory failure Resolution Date/Time: 06/20/18 @ 10:07 (9) Hypotension Resolution Date/Time: 06/20/18 @ 10:07 (10) Metabolic acidosis (11) Ventilator dependent (12) Hepatic encephalopathy Resolution Date/Time: 06/18/18 @ 13:52 (13) Anemia (14) Ascites (15) Jaundice (16) Leukocytosis (17) Renal insufficiency (18) Thrombocytopenia (19) History of pneumonia (20) Chronic back pain (21) End stage liver disease (22) History of ITP (23) Obesity (BMI 30-39.9) (24) Increased ammonia level Resolution Date/Time: 06/18/18 @ 13:54 (25) Liver cirrhosis secondary to [place] (26) Nocturnal hypoxemia (27) Hepatitis C virus infection resolved after antiviral drug therapy (28) TYPE 2 DIABETES MELLITUS WITH DIABETIC POLYNEUROPATHY (29) ESSENTIAL (PRIMARY) HYPERTENSION (30) WEAKNESS (31) LOCALIZED EDEMA (32) H/O splenectomy NUHA LUCAS DO Jul 11, 2018 08:25
--- NOTE | 2018-07-11 08:25 | Individualized Plan of Care ---
Individualized Plan of Care Rehab Nursing IPOC Order Admission Date Jul 07, 2018 at 19:00 Current Orders Orders Admission Order(Inpt,Obs,Sdc) (07/07/18 15:49) Vital Signs: Per Unit Policy ( 08,16,00 (07/07/18 15:49) Motor Tune Up Specialist-Inpt Rehab Con (07/07/18 15:49) Rehab Nursing Orders-Ipoc (07/07/18 15:49) Physical Therapy Rehab Orders (07/07/18 15:49) Occupational Therapy Rehab Ord (07/07/18 15:49) Speech Therapy Rehab Orders (07/07/18 15:49) Intake & Output 06,14,22 (07/07/18 15:49) Precautions (Aru) (07/07/18 15:49) Daily Weight 06 (07/07/18 15:49) Rehab-Intensity Of Therapy (07/07/18 15:49) Cbc With Automated Diff (07/08/18 07:00) Comprehensive Metabolic Panel (07/08/18 07:00) Consult Physician (07/07/18 15:49) Bipap (Bilevel) Set Up (07/07/18 15:49) Code/Resuscitation (07/07/18 15:49) Initiate Admission Nursing Pro .admission (07/07/18 15:49) Ammonia (07/08/18 07:00) Protime With Inr (07/08/18 07:00) Acetaminophen Tablet/Caplet (Tylenol T (07/07/18 16:00) Amitriptyline Tablet (Elavil Tablet) (07/07/18 21:00) Furosemide Tablet (Lasix Tablet) (07/08/18 09:00) Lactulose Syrup (Pour Bottle) (Cephulac (07/07/18 17:00) Loratadine Tablet (Claritin Tablet) (07/08/18 09:00) Magnesium Oxide Tablet (Mag Ox Tablet) (07/07/18 21:00) Metoprolol Tartrate (Ir) Tab (Lopressor (07/07/18 21:00) Therapeutic Multivitamin Tab (Vitamins, (07/08/18 07:00) Pregabalin Capsule (Lyrica Capsule) (07/07/18 21:00) Rifaximin Tablet (Xifaxan Tablet) (07/07/18 21:00) Tizanidine Tablet (Zanaflex Tablet) (07/07/18 16:00) (Nf) Duloxetine Hcl (Cymbalta) (07/08/18 09:00) (Nf) Eltrombopag Olamine (Promacta) (07/08/18 06:00) (Nf) Insulin Glargine,Hum.Rec.Anlog (Bony (07/07/18 21:00) (Nf) Insulin Lispro (Humalog Kwikpen) (07/07/18 16:00) (Nf) Polyethylene Glycol 3350 (Miralax) (07/07/18 16:00) (Nf) Spironolactone (Aldactone) (07/08/18 09:00) Miconazole 2% Powder (Desenex Af 2% Powd (07/07/18 21:00) Cho 60g/M 1snack (16-2000 Mookie) (07/07/18 Dinner) Lactulose Oral Solution (Enulose Oral So (07/07/18 21:00) Spironolactone Tablet (Aldactone Tablet) (07/08/18 09:00) Insulin Aspart (Novolog) (Novolog (Charg (07/08/18 06:00) Insulin Determir (Per Unit) (Levemir (Pe (07/07/18 21:00) Duloxetine Capsule (Cymbalta Capsule) (07/08/18 09:00) Polyethylene Glycol Powder Pkt (Miralax (07/08/18 06:00) Patient May Use Own Med,Single (Patient (07/07/18 20:00) Oxygen-Administer (07/07/18 23:09) Oxygen Delivery Set Up (07/07/18 23:09) Manual Differential (07/08/18 08:45) Patient Visit (07/08/18 ) Pt Eval Moderate Complexity (07/08/18 ) Functional Activities, Ea 15 (07/08/18 ) Patient Visit (07/08/18 ) Exercise Therap, Ea 15 Min (07/08/18 ) Functional Activities, Ea 15 (07/08/18 ) Fluid Restriction (07/08/18 12:14) Cho 60g/M 1snack (16-2000 Mookie) (07/08/18 Dinner) Lactulose Oral Solution (Enulose Oral So (07/08/18 21:00) Polyethylene Glycol Powder Pkt (Miralax (07/08/18 21:00) Nursing Communication (Order) (07/08/18 15:37) Lactulose Oral Solution (Enulose Oral So (07/09/18 07:00) Venous Access Request Order (07/10/18 08:24) Furosemide Injection (Lasix Injection) (07/10/18 14:00) Furosemide Injection (Lasix Injection) (07/10/18 08:30) Consult Physician (07/10/18 08:36) Cbc No Diff (07/10/18 08:36) Comprehensive Metabolic Panel (07/10/18 08:36) Magnesium (07/10/18 08:36) Cbc With Automated Diff (07/11/18 06:00) Comprehensive Metabolic Panel (07/11/18 06:00) Ammonia (07/10/18 08:36) Ammonia (07/11/18 06:00) Consult Physician (07/10/18 09:25) Furosemide Injection (Lasix Injection) (07/10/18 14:00) Patient Visit (07/10/18 ) Speech Sound Lang Comp (07/10/18 ) Patient Visit (07/10/18 ) Functional Activities, Ea 15 (07/10/18 ) Exercise Therap, Ea 15 Min (07/10/18 ) Patient Visit (07/10/18 ) Exercise Therap, Ea 15 Min (07/10/18 ) Functional Activities, Ea 15 (07/10/18 ) Nursing Communication (Order) (07/10/18 16:28) Amb Us Guide Vascular Access (07/10/18 ) Echo W Doppler/Color Flow (07/11/18 08:00) Furosemide Injection (Lasix Injection) (07/12/18 14:00) Rehab Nursing Orders: Ongoing Assess. of Cognitive Status, Ongoing Assess. of Function Status, Bladder Management, Bladder Training, Disease Management & Educaiton, DVT Prophylaxis, Fluid/Electrolyte/Nutrition Mgmt, Management of Skin Intergrity, Patient/Family Support Intensity of Therapy to be met Patient to be seen: Min.3h per day/5 of 7d PT IPOC Problem List: Activity Tolerance, Functional Strength, Safety Treatment Plan: Continue Plan of Care Bed Mobility, Education, Functional Activity Unique, Functional Strength, Group Therapy, Gait, Safety, Therapeutic Exercise, Transfers Treatment Duration: August 05, 2018 Frequency: At least 5 of 7 days/Wk (IRF) Estimated Hrs Per Day: 1.5 hours per day OT IPOC Problems: Decreased Activ Tolerance, Decreased UE Strength, Dependent Transfers , Impaired Self-Care Skills, Restricted Funct UE ROM OT Treatment, Training and Edu: Yes OT Problems Pt demonstrates decreased ADL functioning, mobility, balance, strength, and activity tolerance. Pt to benefit from skilled OT intervention for ADL training , transfers, strengthening, adaptive equipment training as needed, and home safety education to increase functional independence and allow safe discharge home. Plan of Care: ADL Retraining, Functional Mobility, Group Exercise/Act as Ind, UE Funct Exercise/Act Treatment Duration: July 29, 2018 Frequency: At least 5 of 7 days/Wk (IRF) Estimated Hrs Per Day: 1.[address] IPOC Speech Therapy Treatment Plan: Discontinue ST Treatment Duration: Jul 10, 2018 Frequency: 1 time per week Estimated Hrs Per Day: .25 hour per day Motor Tune Up Specialist/Case Mgmt Motor Tune Up Specialist/Case Managemen: Discharge Planning Dietitian/Network Design Architect Dietitian/Network Design Architect to monitor nutritional status and make changes and/or recommendations as needed and work with speech pathology on dietary upgrades as the occur. Physician IPOC Medical Issues being managed closely and that require the 24 hour availability of a physician: Severe end stage liver disease with hepatic encephalopathy acute on chronic signs will require close monitoring along with creatinine Medical Issues: Bowel/Bladder Function, DVT Prophylaxis, Falls Precautions, Fluid/Electrolyte/Nutrition Balance, Infection Protection Brief Synthesis of Preadmission Screen, Post-Admission Evaluation, and Therapy Evaluations: PT will focus on ambulation since she cannot ambulate at all OT will focus on ADL independence Medical Prognosis: Good Anticipated Length of Stay: 28 days NUHA LUCAS DO Jul 11, 2018 08:25
[2018-07-11] MEDS: RIFAXIMIN 550 MG TABLET (XIFAXAN) PO SCH ×2 (09:00→20:41)
[2018-07-11] MEDS: LORATADINE (CLARITIN) 10 MG TAB PO SCH (09:00)
[2018-07-11] MEDS: MAGNESIUM OXIDE (MAG-OX)400 MG TAB PO SCH ×2 (09:00→20:41)
[2018-07-11] MEDS: POLYETHYLENE GLYCOL 17 GM (MIRALAX) PACK PO SCH ×2 (09:00→20:39)
[2018-07-11] MEDS: PREGABALIN 75 MG (LYRICA) CAP PO SCH ×2 (09:00→20:40)
[2018-07-11] MEDS: DULoxetine 30 MG (CYMBALTA) CAP PO SCH (09:00)
--- NOTE | 2018-07-11 09:33 | Physical Therapy Daily Note ---
PT Daily Note-Current Subjective Pt. agrees to Rx for functional mobility and co Rx with OT. Pt. expresses concern regarding the shaking she experiences especially with effort exerted muscularly for tasks. Pain Location: No Pain Reported Mental Status Patient Orientation: Normal For Age Attachments: Oxygen (2L), IV (mid line) Transfers Therapy Code Descriptions/Definitions Functional [place] Measure: 0=Not Assessed/NA 4=Minimal Assistance 1=Total Assistance 5=Supervision or Setup 2=Maximal Assistance 6=Modified [place] 3=Moderate Assistance 7=Complete [place] Therapy Quality Codes: 6 Independent with activity with or without an assistive device 5 Patient requires set up or clean up by helper. Patient completes activity by themselves 4 Supervision or touching assist (CGA). [place] provide cues , steadying assist 3 The helper provides less than half the effort to complete the activity 2 The helper provides more than half the effort to complete the activity 1 Dependent. The helper does all the effort to complete an activity 7 Patient refused to complete or attempt activity 9 The patient did not perform the activity before the current illness or injury 88 Not attempted due to Medical conditions or safety concerns Transfers (B, C, W/C) (FIM): 3 Scootin Rollin Supine to/from Sit: 4 Sit to/from Stand: 3 (raised seat height assisted) Bed to/from Chair: 3 SPT with 3-4 small steps using FWW requires instruction for weight bearing, weight shifting , and safety for use of UEs to push and reach for arms of chair. Gait Training Does the Patient Walk?: Yes Gait (FIM): 1 Distance (FIM): 1=up to 49 ft (3-4 side steps with FWW for TRFs) Gait Level of Assist: 3 Gait Persons Needed: 1 Gait Assistive Device: FWW side steps for TRFs x4 . Pt. appears fearful and needs encouragement to give full effort. weight shifting needs instruction Wheelchair Training Does the Pt Use a Wheelchair?: Yes Wheelchair (FIM): 1 Wheelchair Distance: 1=up to 49 ft (20ftx4) Wheelchair Level of Assist: 4 Type of Wheelchair: Manual needs many cues for turns, safety in tight spaces and use of feet and hands simultaneously, manages braking indep but needs some reminders to make sure they are on/off Exercises Seated Therapy Exercises: Ankle pumps, Sit to stand, Long arc quads, Hip flexion, Hamstring Curls, Hip abd/add Seated Reps: 15 (pillow slip on floor for ham curls and hip abd in sitting) Treatments Pt. required skill of 2 clinicians for heavy verbal and tactile instruction and cuing. OT emphasis on placement and use of UEs for bathing, dressing and UE strengthening and PT addressed gross motor, balance for functional TRFs , SPTs and w/c mobility as well as pre gait activities as pt. completed ADL task of showering , undressing and dressing. Assessment Current Status: Good Progress Pt. gave good effort this date but expresses fear. Pt. with noted instability in stance and jerking, bobbing, near melting episodes PT Short Term Goals Short Term Goals Time Frame: July 22, 2018 Transfers (B,C,W/C) (FIM): 4 Gait (FIM): 4 Wheelchair Distance: 60' PT Engravings Polisher Goals Engravings Polisher Goals PT Shelter Goals Time Frame: August 05, 2018 Transfers (B,C,W/C) (FIM): 6 Sit to Lying (QC): 6 Lying-Sitting on Side/Bed(QC): 6 Sit to Stand (QC): 6 Rollin Roll Left to Right (QC): 6 Chair/Gay-dd-Mzgej Xfer(QC): 6 Car Transfer (QC): 6 Does the Patient Walk: Yes Gait (FIM): 6 Gait distance (FIM): 3=150 ft Walk 10 feet (QC): 6 Walk 10ft-Uneven Surface(QC): 6 Walk 50ft with 2 Turns (QC): 6 Walk 150 ft (QC): 6 Gait Assistive Device: FWW Stairs (FIM): 5 # of Steps: 4 1 Step (curb) (QC): 6 4 Steps (QC): 6 12 Steps (QC): 88 Picking up an Object (QC): 4 PT Plan Treatment/Plan Treatment Plan: Continue Plan of Care Treatment Plan: Bed Mobility, Education, Functional Activity Unique, Functional Strength, Group Therapy, Gait, Safety, Therapeutic Exercise, Transfers Treatment Duration: August 05, 2018 Frequency: At least 5 of 7 days/Wk (IRF) Estimated Hrs Per Day: 1.5 hours per day Patient and/or Family Agrees t: Yes Safety Risks/Education Patient Education: Gait Training, Transfer Techniques, Correct Positioning, W/ C Management, Disease Process, Safety Issues Teaching Recipient: Patient Teaching Methods: Demonstration, Discussion Response to Teaching: Verbalize Understanding, Return Demonstration, Reinforcement Needed Time/GCodes Time In: 800 Time Out: 930 Total Billed Treatment Time: 90 Total Billed Treatment 1,w/c 20m,FA55m, EX15m G Codes Necessary: JOELLE Piper HOUSEKEEPING STAFF Jul 11, 2018 09:33
--- NOTE | 2018-07-11 09:40 | Occupational Ther Daily Note ---
OT Current Status-Daily Note Mental Status/Objective Therapy Code Descriptions/Definitions Functional [place] Measure: 0=Not Assessed/NA 4=Minimal Assistance 1=Total Assistance 5=Supervision or Setup 2=Maximal Assistance 6=Modified [place] 3=Moderate Assistance 7=Complete [place] ADL-Treatment Co treat provided for entire treatment, skill of 2 clinicians are needed to complete the task due to the extensive need for skilled cues, hand placement and tactile cues to facilitate use and placement of UE as well as use of gross movement and LE. PT addresses LE and trunk as OT addresses UE reaching, pulling / hand placement for ADLs and functional transfers. Therapy Code Descriptions/Definitions Functional [place] Measure: 0=Not Assessed/NA 4=Minimal Assistance 1=Total Assistance 5=Supervision or Setup 2=Maximal Assistance 6=Modified [place] 3=Moderate Assistance 7=Complete [place] Therapy Quality Codes: 6 Independent with activity with or without an assistive device 5 Patient requires set up or clean up by helper. Patient completes activity by themselves 4 Supervision or touching assist (CGA). [place] provide cues , steadying assist 3 The helper provides less than half the effort to complete the activity 2 The helper provides more than half the effort to complete the activity 1 Dependent. The helper does all the effort to complete an activity 7 Patient refused to complete or attempt activity 9 The patient did not perform the activity before the current illness or injury 88 Not attempted due to Medical conditions or safety concerns Bathing (FIM): 1 (Sitting on BSC using grabbars and hand held shower pt bathes 60% of body. Assist to wash under pannis and all lower body. Verbal cues to use both UE's during bathing. Assist x2 to stand and cleanse luther area/buttocks , one to stand and one to wash.) Bathing Location: L Arm, R Arm, L Upper Leg, R Upper Leg, Chest, Abdomen Shower/Bathe Self (QC): 1 Upper Body (FIM): 5 (After set up, pt requires verbal cues to doff over head first and assist to reach to get over head. Pt threads arms then needs assist to pull down in back.) Upper Body Dressing (QC): 3 Lower Body Dressing (FIM): 1 (Assist to thread over feet then assist x2 in standing to hike over buttocks.) Lower Body Dressing (QC): 1 On/Off Footwear (QC): 2 Shower Transfer(FIM): 1 (Min A sit to stand from elevated surface. Mod assist x2 for pivot transfer with/without FWW. Pt's knees buckle unexpectedly and increased muscle weakness.) Other Treatment Pt able to stand with assist then attempt to grasp R side waist band with L hand on FWW to hike pants. PT worked on LE strengthening and prolonged standing (approx. 1 min) for functional transfers. After therapy, pt sitting in recliner with call light/phone in reach. All needs met in room. OT Short Term Goals Short Term Goals Time Frame: Jul 15, 2018 Bathing(FIM): 4 Upper Body Dressing(FIM): 4 Lower Body Dressing(FIM): 3 Toileting(FIM): 3 Transfers (B,C,W/C) (FIM): 4 Toilet/Commode Transfer(FIM): 3 Shower Transfer(FIM): 3 Additional Short Term Goals: 1-Demonstrate ADL Tasks, 2-Verbalize Understanding , 3-ImproveStrength/Unique 1=Demonstrate adherence to instructed precautions during ADL tasks. 2=Patient will verbalize/demonstrate understanding of assistive devices/ modifications for ADL. 3=Patient will improve strength/tolerance for activity to enable patient to perform ADL's. OT Detention Goals Detention Goals Time Frame: July 29, 2018 Eating (FIM): 7 Eating (QC): 6 Groomin Oral Hygiene (QC): 6 Bathing(FIM): 5 Shower/Bathe Self (QC): 4 Upper Body Dressing(FIM): 6 Upper Body Dressing (QC): 6 Lower Body Dressing(FIM): 5 Lower Body Dressing (QC): 4 On/Off Footwear (QC): 5 Toileting(FIM): 5 Toileting Hygiene (QC): 4 Toilet/Commode Transfer(FIM): 5 Toilet/Commode Transfer (QC): 5 Shower Transfer(FIM): 5 Additional Goals: 1-Demonstrate ADL Tasks, 2-Verbalize Understanding, 3- ImproveStrength/Unique 1=Demonstrate adherence to instructed precautions during ADL tasks. 2=Patient will verbalize/demonstrate understanding of assistive devices/ modifications for ADL. 3=Patient will improve strength/tolerance for activity to enable patient to perform ADL's. OT Education/Plan Problem List/Assessment Assessment: Decreased Activ Tolerance, Decreased Safety Aware, Decreased UE Strength, Dependent Transfers, Impaired Self-Care Skills, Restricted Funct UE ROM Pt demonstrates decreased ADL functioning, mobility, balance, strength, and activity tolerance. Pt to benefit from skilled OT intervention for ADL training , transfers, strengthening, adaptive equipment training as needed, and home safety education to increase functional independence and allow safe discharge home. Discharge Recommendations Plan/Recommendations: Continue POC Treatment Plan/Plan of Care Patient would benefit from OT for education, treatment and training to promote independence in ADL's, mobility, safety and/or upper extremity function for ADL' s. Plan of Care: ADL Retraining, Functional Mobility, Group Exercise/Act as Ind, UE Funct Exercise/Act Treatment Duration: July 29, 2018 Frequency: At least 5 of 7 days/Wk (IRF) Estimated Hrs Per Day: 1.5 hours per day Agreement: Yes Rehab Potential: Good Time/GCodes Start Time: 08:00 Stop Time: 09:30 Total Time Billed (hr/min): 90 Billed Treatment Time 1 visit-ADL 4 (60 min) FA 2 (30 min) co-treat 90 min ARNAUD DIA Jul 11, 2018 09:40
[2018-07-11 09:51] VITALS: BP 119/70
[2018-07-11] MEDS: MICONAZOLE 2% POWDER (DESENEX AF) 90 GM TOP SCH ×2 (09:51→20:51)
[2018-07-11] MEDS: meTOprolol TARTRATE 25 MG (LOPRESSOR) TABLET PO SCH ×2 (10:07→20:41)
[2018-07-11] MEDS: SPIRONOLACTONE 25 MG (ALDACTONE) TAB PO SCH (10:07)
[2018-07-11] MEDS ORDERED: BUME1TAB4 PO (14:37)
[2018-07-11] MEDS ORDERED: LISI10TA2 PO (14:37)
[2018-07-11] MEDS ORDERED: GABA-488 PO ×2 (14:37)
[2018-07-11] MEDS ORDERED: LORA10TA7 PO (14:37)
[2018-07-11] MEDS ORDERED: FLUO20CA42 PO (14:37)
[2018-07-11] MEDS ORDERED: CARI350T27 PO (14:47)
[2018-07-11] MEDS ORDERED: CYCL10TA9 PO (14:47)
--- NOTE | 2018-07-11 15:23 | Pulmonary Progress Note ---
Subjective Time Seen by a Provider: 10:00 Subjective/Events-last exam No complications noted. Sepsis Event Evaluation Height, Weight, BMI Height: 5'6.00" Weight: 271lbs. 11.2oz. [id number]; 43.4 BMI Method:Stated Exam Exam Vital Signs Date Time Temp Pulse Resp B/P (MAP) Pulse Ox O2 Delivery O2 Flow Rate FiO2 07/11/18 09:51 98.6 70 20 119/70 (86) 96 Nasal Cannula 2.00 07/11/18 08:36 Nasal Cannula 2.00 07/11/18 06:35 Nasal Cannula 2.00 07/11/18 05:41 98.8 61 20 101/53 (69) 96 Nasal Cannula 2.00 07/11/18 02:46 59 17 94 35.00 07/11/18 00:17 65 18 95 35.00 07/10/18 22:10 63 20 93 35.00 07/10/18 20:00 Nasal Cannula 2.00 07/10/18 15:40 98.0 71 20 122/72 (89) 97 Nasal Cannula 2.00 I & O 07/11/18 07:00 Intake Total 1475 ml Balance 1475 ml Height & Weight Height: 5'6.00" Weight: 271lbs. 11.2oz. 123.928672rq; 43.4 BMI Method:Stated General Appearance: No Apparent Distress, WD/WN, Chronically ill, Obese HEENT: PERRL/EOMI, Normal ENT Inspection, Pharynx Normal, Moist Mucous Membranes Neck: Full Range of Motion, Normal Inspection, Non Tender, Supple Respiratory: Chest Non Tender, Lungs Clear, Normal Breath Sounds, No Accessory Muscle Use, No Respiratory Distress Cardiovascular: Regular Rate, Rhythm, No Edema, No Gallop, No JVD, No Murmur Extremity: Normal Capillary Refill, Normal Inspection, Normal Range of Motion, Non Tender, No Calf Tenderness, No Pedal Edema Neurologic/Psychiatric: Alert, Oriented x3, Normal Mood/Affect, Motor Weakness (3/5 all extremities) Skin: Normal Color, Warm/Dry Lymphatic: No Adenopathy Results Lab Laboratory Tests 07/10/18 08:45 07/11/18 05:19 Assessment/Plan Assessment/Plan Morbid obesity with OHS/NABIL -Vent to mask QHS and PRN -PT needs home vent to mask upon dishcarge chronic renal failure -monitor -Lasix is currently on hold Hyperkalemia -Hold spironolactone for now -Recheck BMP now and in AM Debility -PT/OT -Rehab DM type II Hepatic Anemia -Monitor Hx splenectomy Hx of Hep C Valerio Thrombocytopenia/ ITP hx End Stage liver disease Chronic back pain Hepatic encephalopathy NAIDA HUGGINS DO Jul 11, 2018 15:23
[2018-07-11 15:24] VITALS: BP 110/67
--- NOTE | 2018-07-11 15:45 | Cardiology Progress Note ---
Cardiology SOAP Progress Note Subjective: No significant cardiac symptoms. Good response to IV Lasix. Patient lost 7 pounds overnight. Objective: I&O/Vital Signs 07/11/18 07/11/18 07/11/18 07/11/18 05:41 06:35 08:36 09:51 Temp 98.8 98.6 Pulse 61 70 Resp 20 20 B/P (MAP) 101/53 (69) 119/70 (86) Pulse Ox 96 96 O2 Delivery Nasal Cannula Nasal Cannula Nasal Cannula Nasal Cannula O2 Flow Rate 2.00 2.00 2.00 2.00 07/11/18 15:24 Temp 97.4 Pulse 68 Resp 16 B/P (MAP) 110/67 (81) Pulse Ox 97 O2 Delivery Nasal Cannula O2 Flow Rate 2.00 07/11/18 00:00 Intake Total 875 ml Balance 875 ml Weight (Pounds): 271 Weight (Ounces): 11.2 Weight (Calculated Kilograms): 123.572236 Constitutional: appears stated age; No apparent distress; well-developed, well- nourished Respiratory: No accessory muscle use, No respiratory distress, No chest tender , No chest expansion is symmetric; chest is bilaterally symmetric; No lungs clear to percussion; lungs clear to auscultation; No crackles, No rhonchi, No rales, No stridor, No wheezing, No pleural rub, No other Cardiovascular: regular rate-rhythm; No irregularly irregular, No extra beats, No parasternal heave is noted, No JVD; edema; No bradycardia, No tachycardia, No point of maximal impulse, No cardiac thrills are palpable; S1 and S2; No gallop/S3, No gallop/S4, No diastolic murmur, No systolic murmur, No friction rub, No click, No other Gastrointestional: distended; No spleenomegaly Extremities: No normal range of motion, No non-tender, No normal inspection, No pedal edema, No calf tenderness, No normal capillary refill, No pelvis stable , No calf tenderness, No inflammation, No pedal edema, No slow capillary refill , No swelling, No other, No abrasion, No clubbing, No cyanosis, No ecchymosis, No laceration, No no lower extremity edema bilateral, No significant edema, No tenderness, No wound Neurologic/Psychiatric: no motor/sensory deficits, alert, normal mood/affect, oriented x 3, power is 5/5 both on sides Skin: No rash, No ulcerations Results/Procedures: Labs Laboratory Tests 07/10/18 20:03: Glucometer 207H 07/11/18 05:19: White Blood Count 22.6H, Red Blood Count 2.63L, Hemoglobin 7.5L, Hematocrit 23L , Mean Corpuscular Volume 89, Mean Corpuscular Hemoglobin 29, Mean Corpuscular Hemoglobin Concent 32, Red Cell Distribution Width 22.6H, Platelet Count 72L, Mean Platelet Volume , Neutrophils (%) (Auto) 53, Lymphocytes (%) (Auto) 27, Monocytes (%) (Auto) 14H, Eosinophils (%) (Auto) 5, Basophils (%) (Auto) 1, Neutrophils # (Auto) 11.9H, Lymphocytes # (Auto) 6.2H, Monocytes # (Auto) 3.1H, Eosinophils # (Auto) 1.1H, Basophils # (Auto) 0.3H, Sodium Level 141, Potassium Level 5.3H, Chloride Level 106, Carbon Dioxide Level 27, Anion Gap 8, Blood Urea Nitrogen 32H, Creatinine 1.65H, Estimat Glomerular Filtration Rate 32, BUN/ Creatinine Ratio 19, Glucose Level 121H, Calcium Level 8.4L, Corrected Calcium 9.2, Total Bilirubin 1.1H, Aspartate Amino Transf (AST/SGOT) 36H, Alanine Aminotransferase (ALT/SGPT) 19, Alkaline Phosphatase 88, Ammonia 65H, Total Protein 5.9L, Albumin 3.0L 07/11/18 11:06: Glucometer 177H 07/11/18 15:29: Glucometer 143H A/P: Assessment/Dx: Fluid overload, Chronic kidney disease, Obesity hypoventilation syndrome, Obstructive sleep apnea, Liver cirrhosis with nonalcoholic steatohepatitis, History of hepatitis C, Diabetes, Hypertension, Chronic use of steroids. Plan: Fluid overload, excellent response to IV Lasix 40 mg twice a day. Patient lost 7 pounds overnight. Agree with decreasing the dose of Lasix to 40 mg every other day. Chronic kidney disease, stable. Obesity hypoventilation syndrome, Obstructive sleep apnea, Liver cirrhosis with nonalcoholic steatohepatitis, History of hepatitis C, Diabetes, on insulin. Hypertension, Chronic use of steroids Dr. Adamson to take over care tomorrow. Thank you for your consultation. Please call me if you have any questions. Pedrito Olvera MD, FACP, FACC, FSCAI, FHRS, CCDS Interventional Cardiology Cardiac Electrophysiology Vascular Medicine and Endovascular Interventions Bj OLVERA MD Jul 11, 2018 15:45
[2018-07-11 17:02] LABS: CALCIUM 8.5 MG/DL (8.5-10.1); CREATININE SERUM 1.58 MG/DL (0.60-1.30); POTASSIUM 4.8 MMOL/L (3.6-5.0)
[2018-07-11] MEDS: AMITRIPTYLINE 25 MG (ELAVIL) TAB PO SCH (20:40)
[2018-07-11] MEDS: ACETAMINOPHEN 325 MG TABLET PO PRN (20:42)
[2018-07-11] MEDS ORDERED: LACTULOSE SYRUP 10GM/15ML (ENULOSE) 30ML UDC PO SCH (21:00)
[2018-07-12 05:03] VITALS: BP 98/63
[2018-07-12] MEDS: MULTIVIT W/MINERALS TAB (THERAGRAN M) PO SCH (05:19)
[2018-07-12] MEDS: PROMACTA 50 MG PO SCH (05:19)
[2018-07-12 05:47] LABS: BASOPHILS # (AUTO) 0.2 10^3/uL (0.0-0.1); BASOPHILS % (AUTO) 1 % (0-10); HEMATOCRIT 24 % (35-52); HEMOGLOBIN 7.5 G/DL (11.5-16.0); MEAN CORPUSCULAR HEMOGLOBIN 28 PG (25-34); MEAN CORPUSCULAR HGB CONC 32 G/DL (32-36); MEAN CORPUSCULAR VOLUME 88 FL (80-99); PLATELET COUNT 79 10^3/uL (130-400); RED CELL DISTRIBUTION WIDTH 22.8 % (10.0-14.5); WHITE BLOOD COUNT 23.4 10^3/uL (4.3-11.0)
[2018-07-12 05:49] LABS: LYMPHOCYTES % (AUTO) 25 % (12-44); NEUTROPHILS % (AUTO) 58 % (42-75)
[2018-07-12 05:50] LABS: EOSINOPHILS # (AUTO) 0.9 10^3/uL (0.0-0.3); EOSINOPHILS % (AUTO) 4 % (0-10); LYMPHOCYTES # (AUTO) 5.8 X 10^3 (1.0-4.0); MONOCYTES # (AUTO) 2.9 X 10^3 (0.0-1.0); MONOCYTES % (AUTO) 12 % (0-12); NEUTROPHILS # (AUTO) 13.5 X 10^3 (1.8-7.8)
[2018-07-12 05:54] LABS: INR 1.3 (0.8-1.4); PROTHROMBIN TIME PATIENT 16.9 SEC (12.2-14.7)
[2018-07-12 06:01] LABS: ALBUMIN 2.9 GM/DL (3.2-4.5); CALCIUM 8.3 MG/DL (8.5-10.1); CREATININE SERUM 1.38 MG/DL (0.60-1.30); TOTAL PROTEIN 5.9 GM/DL (6.4-8.2)
[2018-07-12] MEDS: inSUlin ASPART (NovoLOG) 1 UNIT/0.01 ML (CHARGE PER UNIT) SC SCH ×3 (06:41→17:32)
--- NOTE | 2018-07-12 07:45 | NUR ---
DR. LUCAS INFORMED OF AMMONIA LEVEL. LACTULOSE DOSE INCREASED AND MIRALAX DC'D. ADMITS TO DROWSINESS, SHAKY, AND MILD CONFUSION. LASIX CHANGED TO 0900 Q [address] HRS. URINE DARK AND CLOUDY. DR. LUCAS AWARE.
[2018-07-12 08:00] VITALS: BP 133/74
--- NOTE | 2018-07-12 08:22 | PM&R Progress Note ---
Subjective HPI/CC On Admission Date Seen by Provider: Jul 12, 2018 Time Seen by Provider: 08:00 CC: Disuse myopathy HPI: This is a 52yoWF clinic patient of Dr Torres who presents back to [facility] where she was transferred from the ICU to [facility] on 06/24/18 due to worsened respiratory status and renal failure. Patient had a lengthy hospital course at [facility] from 06/24 until 07/07/18 which included aggressive diuresis which resulted in a 54# weight loss since last at [facility]. Patient required Lasix infusion and close Nephrology and Cardiology and Pulmonology monitoring during the course. Patient' s creatinine is 1.3 and currently tolerating Miralax and Lactulose QID to maintain low ammonia levels and platelets will be monitored closely and sent to Hematology at [facility] as requested. biPAP was placed on patient per Dr Wilkinson's direction last night at 15/7 pressure level. I reviewed extensive chart from [facility] and reviewed and reconciled and restarted all meds she was on at [facility]. Patient feels much better but she is frustrated because she cannot walk. Barriers to returning home with include regaining the ability to walk and prevent falls and improve ADL independence. PLOF was independent now she is 2 person assist. Subjective/Events-last exam Elevated ammonia level at 83 is prompting the dose of lactulose to be every 3 hours to prompt diarrhea to decrease that level Tremors remain and complicating therapy due to shaking Checking iron level due to hemoglobin in the 7 range Creatinine improved at 1.3 today Lasix 40 mg IV Q48hrs to optimize effectiveness and salvage kidney function Will DC Miralax Oxygen is maintained at 2 liters PT reports moderate assistance because of jerking movements OT reports two person assist with ADLs Review of Systems General: Fatigue Neurological: Weakness, Numbness, Incoordination, Confusion Objective Exam Vital Signs Vital Signs Date Time Temp Pulse Resp B/P (MAP) Pulse Ox O2 Delivery O2 Flow Rate FiO2 07/12/18 09:00 Nasal Cannula 2.00 07/12/18 05:03 99.3 67 20 98/63 (75) 99 Capillary Refill : General Appearance: No Apparent Distress, WD/WN, Chronically ill, Obese HEENT: PERRL/EOMI, Normal ENT Inspection, Pharynx Normal, Moist Mucous Membranes Neck: Full Range of Motion, Normal Inspection, Non Tender, Supple Respiratory: Chest Non Tender, Lungs Clear, Normal Breath Sounds, No Accessory Muscle Use, No Respiratory Distress Cardiovascular: Regular Rate, Rhythm, No Edema, No Gallop, No JVD, No Murmur Gastrointestinal: Normal Bowel Sounds, No Organomegaly, No Pulsatile Mass, Non Tender, Soft Back: Normal Inspection, No CVA Tenderness, No Vertebral Tenderness Extremity: Normal Capillary Refill, Normal Inspection, Normal Range of Motion, Non Tender, No Calf Tenderness, No Pedal Edema Neurologic/Psychiatric: Alert, Oriented x3, Normal Mood/Affect, Motor Weakness (3/5 all extremities) Reflexes: 4+ Bicep (R), 4+ Bicep (L), 4+ Tricep (R), 4+ Tricep (L), 4+ Knee (R) , 4+ Knee (L), 4+ Ankle (R), 4+ Ankle (L) Skin: Normal Color, Warm/Dry Lymphatic: No Adenopathy Comments asterixis noted Results/Procedures Lab Laboratory Tests 07/12/18 05:30 Patient resulted labs reviewed. FIM Transfers Therapy Code Descriptions/Definitions Functional [place] Measure: 0=Not Assessed/NA 4=Minimal Assistance 1=Total Assistance 5=Supervision or Setup 2=Maximal Assistance 6=Modified [place] 3=Moderate Assistance 7=Complete [place] Therapy Quality Codes: 6 Independent with activity with or without an assistive device 5 Patient requires set up or clean up by helper. Patient completes activity by themselves 4 Supervision or touching assist (CGA). [place] provide cues , steadying assist 3 The helper provides less than half the effort to complete the activity 2 The helper provides more than half the effort to complete the activity 1 Dependent. The helper does all the effort to complete an activity 7 Patient refused to complete or attempt activity 9 The patient did not perform the activity before the current illness or injury 88 Not attempted due to Medical conditions or safety concerns Mental Status/Objective Comprehension: 7 Expression: 7 Social Interaction: 7 Problem Solvin Memory: 7 ADL-Treatment Feedin (set up by report) Eating (QC): 5 Groomin Oral Hygiene (QC): 5 Bathin (Sitting on BSC using grabbars and hand held shower pt bathes 60% of body. Assist to wash under pannis and all lower body. Verbal cues to use both UE's during bathing. Assist x2 to stand and cleanse luther area/buttocks, one to stand and one to wash.) Bathing Location: L Arm, R Arm, L Upper Leg, R Upper Leg, Chest, Abdomen Shower/Bathe Self (QC): 1 Upper Extremity Dressin (After set up, pt requires verbal cues to doff over head first and assist to reach to get over head. Pt threads arms then needs assist to pull down in back.) Upper Body Dressing (QC): 3 Lower Extremity Dressin (Assist to thread over feet then assist x2 in standing to hike over buttocks.) Lower Body Dressing (QC): 1 On/Off Footwear (QC): 2 Toiletin Toileting Hygiene (QC): 1 Toilet/Commode Transfer: 1 Toilet Transfer (QC): 1 Shower: 1 (Min A sit to stand from elevated surface. Mod assist x2 for pivot transfer with/without FWW. 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 with (2) H/O splenectomy (3) ESSENTIAL (PRIMARY) HYPERTENSION (4) Hepatitis C virus infection resolved after antiviral drug therapy (5) Nocturnal hypoxemia-maintained on biPAP since admit to [facility] the first time (6) Liver cirrhosis secondary to [place] (7) Increased ammonia level-increase Lactulose and DC Miralax (8) Obesity (BMI 30-39.9) (9) History of ITP (10) End stage liver disease (11) Chronic back pain-increased since fall 6 weeks ago (12) History of pneumonia last on abx 06/24/18 (13) Thrombocytopenia (14) Renal insufficiency-monitor closely (15) LOCALIZED EDEMA-much improved (16) WEAKNESS (17) TYPE 2 DIABETES MELLITUS WITH DIABETIC POLYNEUROPATHY (18) Leukocytosis-chronic, bone marrow inconclusive so splenectomy likely source (19) Jaundice (20) Ascites (21) Anemia (22) Hepatic encephalopathy Plan: Monitor platelets, Hgb, creat and ammonia closely Lactulose increase and DC Miralax to decrease ammonia elevation Diuretics as scheduled IV QOD Intensive therapies biPAP 02/[address] Jaja Martini ADA and low sodium diet Fluid restriction 1500cc/day Midline yesterday and changed Lasix to IV Consult Dr Olvera regional engineer for Dr Adamson Very complex issues. (1) Disuse muscle atrophy (2) Diabetes mellitus (3) Fall Resolution Date/Time: 06/18/18 @ 13:53 (4) History of acute respiratory failure (5) History of hematemesis (6) VENOUS INSUFFICIENCY (CHRONIC) (PERIPHERAL) (7) DIFFICULTY IN WALKING, NOT ELSEWHERE CLASSIFIED (8) Respiratory failure Resolution Date/Time: 06/20/18 @ 10:07 (9) Hypotension Resolution Date/Time: 06/20/18 @ 10:07 (10) Metabolic acidosis (11) Ventilator dependent (12) Hepatic encephalopathy Resolution Date/Time: 06/18/18 @ 13:52 (13) Anemia (14) Ascites (15) Jaundice (16) Leukocytosis (17) Renal insufficiency (18) Thrombocytopenia (19) History of pneumonia (20) Chronic back pain (21) End stage liver disease (22) History of ITP (23) Obesity (BMI 30-39.9) (24) Increased ammonia level Resolution Date/Time: 06/18/18 @ 13:54 (25) Liver cirrhosis secondary to [place] (26) Nocturnal hypoxemia (27) Hepatitis C virus infection resolved after antiviral drug therapy (28) TYPE 2 DIABETES MELLITUS WITH DIABETIC POLYNEUROPATHY (29) ESSENTIAL (PRIMARY) HYPERTENSION (30) WEAKNESS (31) LOCALIZED EDEMA (32) H/O splenectomy NUHA LUCAS DO Jul 12, 2018 08:22
[2018-07-12] MEDS: meTOprolol TARTRATE 25 MG (LOPRESSOR) TABLET PO SCH ×2 (08:39→20:41)
[2018-07-12] MEDS: LORATADINE (CLARITIN) 10 MG TAB PO SCH (08:39)
[2018-07-12] MEDS: PREGABALIN 75 MG (LYRICA) CAP PO SCH ×2 (08:39→20:41)
[2018-07-12] MEDS: MAGNESIUM OXIDE (MAG-OX)400 MG TAB PO SCH ×2 (08:39→20:40)
[2018-07-12] MEDS: DULoxetine 30 MG (CYMBALTA) CAP PO SCH (08:39)
[2018-07-12] MEDS: RIFAXIMIN 550 MG TABLET (XIFAXAN) PO SCH ×2 (08:39→20:40)
[2018-07-12] MEDS: LACTULOSE SYRUP 10GM/15ML (ENULOSE) 30ML UDC PO SCH ×6 (08:44→23:39)
[2018-07-12] MEDS ORDERED: FUROSEMIDE 40 MG/4 ML INJ (LASIX) IVP SCH ×2 (09:00→14:00)
--- NOTE | 2018-07-12 09:05 | Physical Therapy Daily Note ---
PT Daily Note-Current Subjective Pt. in bed and states she doesnt feel like she will be able to do much today b/ c the ammonia levels are even higher and she is discouraged. The nurse is in the room and states pt. will have more problems with weakness and shaking today. Pain Location: No Pain Reported Mental Status Patient Orientation: Person, Place, Time, Situation Attachments: Oxygen (2L) pt. keeps eyes closed unless instructed to open them Transfers Therapy Code Descriptions/Definitions Functional [place] Measure: 0=Not Assessed/NA 4=Minimal Assistance 1=Total Assistance 5=Supervision or Setup 2=Maximal Assistance 6=Modified [place] 3=Moderate Assistance 7=Complete [place] Therapy Quality Codes: 6 Independent with activity with or without an assistive device 5 Patient requires set up or clean up by helper. Patient completes activity by themselves 4 Supervision or touching assist (CGA). [place] provide cues , steadying assist 3 The helper provides less than half the effort to complete the activity 2 The helper provides more than half the effort to complete the activity 1 Dependent. The helper does all the effort to complete an activity 7 Patient refused to complete or attempt activity 9 The patient did not perform the activity before the current illness or injury 88 Not attempted due to Medical conditions or safety concerns Transfers (B, C, W/C) (FIM): 3 Scootin Rollin Supine to/from Sit: 4 (with HOB up and use of rails) Sit to/from Stand: 4 (assist of 2) bed level and chair level raised to assist with sit to stand, in stance pt. extends at trunk and hangs her weight on hips and buttocks in unsafe position. All the time pt. shaking and dipping at knees and hips in unsafe way , pt. repeatedly instructed to use UEs on FWW in weight bearing position Gait Training Gait Assistive Device: FWW pt. more challenged this date in stance , some weight shift and pre gait activities done for brief periods as pts. shakiness and weakness more profound this date Balance Special Test Comments sitting balance required mod assist off and on during ADLs and mod to min assist on stance Exercises Supine Ex: Bridging (attempted unsuccessfully), Ankle pumps, Quad Set, Rolling (assisted), Glut sets, Heel Slides, Short Arc Quads, Scooting, Straight leg raise (assisted), Hip abd/add (assisted) Supine Reps: 15 Seated Therapy Exercises: Ankle pumps, Sit to stand (*), Hip flexion Seated Reps: 12 Standing: Side steps, Weight shifts Standing Reps: 5 pt. required assist for all functional mob and TRFs Treatments seated at EOB pt required Rx and instruction of 2 clinicians for trunk and sitting balance support and instruction during LE dressing and funct Assessment Current Status: Fair Progress shaking and weakness more prominent this date, apparently ammonia higher today PT Short Term Goals Short Term Goals Time Frame: July 22, 2018 Transfers (B,C,W/C) (FIM): 4 Gait (FIM): 4 Wheelchair Distance: 60' PT Import Export Coordinator Goals Import Export Coordinator Goals PT Import Export Coordinator Goals Time Frame: August 05, 2018 Transfers (B,C,W/C) (FIM): 6 Sit to Lying (QC): 6 Lying-Sitting on Side/Bed(QC): 6 Sit to Stand (QC): 6 Rollin Roll Left to Right (QC): 6 Chair/Qlf-fe-Anpur Xfer(QC): 6 Car Transfer (QC): 6 Does the Patient Walk: Yes Gait (FIM): 6 Gait distance (FIM): 3=150 ft Walk 10 feet (QC): 6 Walk 10ft-Uneven Surface(QC): 6 Walk 50ft with 2 Turns (QC): 6 Walk 150 ft (QC): 6 Gait Assistive Device: FWW Stairs (FIM): 5 # of Steps: 4 1 Step (curb) (QC): 6 4 Steps (QC): 6 12 Steps (QC): 88 Picking up an Object (QC): 4 PT Plan Treatment/Plan Treatment Plan: Continue Plan of Care Treatment Plan: Bed Mobility, Education, Functional Activity Unique, Functional Strength, Group Therapy, Gait, Safety, Therapeutic Exercise, Transfers Treatment Duration: August 05, 2018 Frequency: At least 5 of 7 days/Wk (IRF) Estimated Hrs Per Day: 1.5 hours per day Patient and/or Family Agrees t: Yes Safety Risks/Education Patient Education: Transfer Techniques, Correct Positioning, Disease Process, Safety Issues Teaching Recipient: Patient Teaching Methods: Demonstration, Discussion Response to Teaching: Verbalize Understanding, Return Demonstration, Reinforcement Needed Time/GCodes Time In: 800 Time Out: 900 Total Billed Treatment Time: 60 Total Billed Treatment 1,EX20m,EX40m,co Rx with OT G Codes Necessary: JOELLE Piper DESIGNER/WRITER Jul 12, 2018 09:04
--- NOTE | 2018-07-12 09:15 | Occupational Ther Daily Note ---
OT Current Status-Daily Note Subjective Pt alert though closed eyes throughout session while completing tasks or talking. No c/o pain. Did c/o weakness and fatigue. Agrees to therapy. Mental Status/Objective Patient Orientation: Person, Place, Time, Situation Therapy Code Descriptions/Definitions Functional [place] Measure: 0=Not Assessed/NA 4=Minimal Assistance 1=Total Assistance 5=Supervision or Setup 2=Maximal Assistance 6=Modified [place] 3=Moderate Assistance 7=Complete [place] Attachments: IV (midline) ADL-Treatment Co treat provided for entire treatment, skill of 2 clinicians are needed to complete the task due to the extensive need for skilled cues, hand placement and tactile cues to facilitate use and placement of UE as well as use of gross movement and LE. PT addresses LE and trunk as OT addresses UE reaching, pulling / hand placement for ADLs and functional transfers. Min A with supine to sit with HOB fully upright. Pt increased tremors and weakness which has impacted ability to complete tasks in timely manner. Lengthy recovery breaks taken between exercises and tasks. Pt c/o fingers feeling tingly which hindered pulling briefs up while in supine, rolling side to side to pull up with recovery breaks between rolling to side. Introduced pt to dressing stick to don /doff pants. Assistance needed to use to don/doff over feet, pt had eyes closed part of the time. Pt unable to sequence how to use dressing stick, will require more practice and education. See PT notes for standing and transfers. After therapy, pt sitting in recliner with call light/phone in reach. All needs met in room. Therapy Code Descriptions/Definitions Functional [place] Measure: 0=Not Assessed/NA 4=Minimal Assistance 1=Total Assistance 5=Supervision or Setup 2=Maximal Assistance 6=Modified [place] 3=Moderate Assistance 7=Complete [place] Therapy Quality Codes: 6 Independent with activity with or without an assistive device 5 Patient requires set up or clean up by helper. Patient completes activity by themselves 4 Supervision or touching assist (CGA). [place] provide cues , steadying assist 3 The helper provides less than half the effort to complete the activity 2 The helper provides more than half the effort to complete the activity 1 Dependent. The helper does all the effort to complete an activity 7 Patient refused to complete or attempt activity 9 The patient did not perform the activity before the current illness or injury 88 Not attempted due to Medical conditions or safety concerns Lower Body Dressing (FIM): 1 Lower Body Dressing (QC): 1 Gave Boom cup, pt has spontaneous tremors and has difficulty with open cups spilling. OT Short Term Goals Short Term Goals Time Frame: Jul 15, 2018 Bathing(FIM): 4 Upper Body Dressing(FIM): 4 Lower Body Dressing(FIM): 3 Toileting(FIM): 3 Transfers (B,C,W/C) (FIM): 4 Toilet/Commode Transfer(FIM): 3 Shower Transfer(FIM): 3 Additional Short Term Goals: 1-Demonstrate ADL Tasks, 2-Verbalize Understanding , 3-ImproveStrength/Unique 1=Demonstrate adherence to instructed precautions during ADL tasks. 2=Patient will verbalize/demonstrate understanding of assistive devices/ modifications for ADL. 3=Patient will improve strength/tolerance for activity to enable patient to perform ADL's. OT Clinical Informatics Educator Goals Alf Goals Time Frame: July 29, 2018 Eating (FIM): 7 Eating (QC): 6 Groomin Oral Hygiene (QC): 6 Bathing(FIM): 5 Shower/Bathe Self (QC): 4 Upper Body Dressing(FIM): 6 Upper Body Dressing (QC): 6 Lower Body Dressing(FIM): 5 Lower Body Dressing (QC): 4 On/Off Footwear (QC): 5 Toileting(FIM): 5 Toileting Hygiene (QC): 4 Toilet/Commode Transfer(FIM): 5 Toilet/Commode Transfer (QC): 5 Shower Transfer(FIM): 5 Additional Goals: 1-Demonstrate ADL Tasks, 2-Verbalize Understanding, 3- ImproveStrength/Unique 1=Demonstrate adherence to instructed precautions during ADL tasks. 2=Patient will verbalize/demonstrate understanding of assistive devices/ modifications for ADL. 3=Patient will improve strength/tolerance for activity to enable patient to perform ADL's. OT Education/Plan Problem List/Assessment Assessment: Decreased Activ Tolerance, Decreased Safety Aware, Decreased UE Strength, Dependent Transfers, Impaired Coordination, Impaired Funct Balance, Impaired Self-Care Skills, Restricted Funct UE ROM Pt demonstrates decreased ADL functioning, mobility, balance, strength, and activity tolerance. Pt to benefit from skilled OT intervention for ADL training , transfers, strengthening, adaptive equipment training as needed, and home safety education to increase functional independence and allow safe discharge home. Discharge Recommendations Plan/Recommendations: Continue POC Treatment Plan/Plan of Care Patient would benefit from OT for education, treatment and training to promote independence in ADL's, mobility, safety and/or upper extremity function for ADL' s. Plan of Care: ADL Retraining, Functional Mobility, Group Exercise/Act as Ind, UE Funct Exercise/Act Treatment Duration: July 29, 2018 Frequency: At least 5 of 7 days/Wk (IRF) Estimated Hrs Per Day: 1.5 hours per day Agreement: Yes Rehab Potential: Good Time/GCodes Start Time: 08:00 Stop Time: 09:00 Total Time Billed (hr/min): 60 Billed Treatment Time 1 visit-FA 4 (60 min) co-treat 60 min ARNAUD DIA Jul 12, 2018 09:15
[2018-07-12] MEDS: MICONAZOLE 2% POWDER (DESENEX AF) 90 GM TOP SCH ×2 (10:02→20:43)
--- NOTE | 2018-07-12 11:00 | NUR ---
BLOOD RETURN FROM MIDLINE, BUT NOT ENOUGH FOR BLOOD SPECIMEN.
--- NOTE | 2018-07-12 12:00 | NUR ---
DR. LUCAS INFORMED OF 2 SMALL-MODERATE STOOLS TODAY. STATES MAY DOUBLE UP ON LACTULOSE DOSES TODAY IF NEEDED.
--- NOTE | 2018-07-12 12:03 | Cardiology Progress Note ---
Subjective Date Seen by Provider: Jul 12, 2018 Time Seen by Provider: 11:40 Subjective/Events-last exam Patient is sitting up in chair, denies any chest pain or dyspnea. Review of Systems General: No Chills, No Night Sweats; Fatigue, Malaise; No Appetite, No Other HEENT: No Head Aches, No Visual Changes, No Eye Pain, No Ear Pain, No Dysphasia , No Sinus Congestion, No Post Nasal Drip, No Sore Throat, No Other Pulmonary: Dyspnea; No Cough, No Pleuritic Chest Pain, No Other Cardiovascular: No: Chest Pain, Palpitations, Orthopnea, Paroxysmal Noc. Dyspnea, Edema, Lt Headedness, Other Objective-Cardiology Exam Last Set of Vital Signs Vital Signs 07/12/18 07/12/18 05:03 09:00 Temp 99.3 Pulse 67 Resp 20 B/P (MAP) 98/63 (75) Pulse Ox 99 O2 Delivery Nasal Cannula O2 Flow Rate 2.00 Capillary Refill : I&O Intake and Output 07/12/18 00:00 Intake Total 1140 ml Balance 1140 ml Intake Oral 1140 ml # Voids 5 # Bowel Movements 3 General: Alert, Oriented X3, Cooperative HEENT: Atraumatic, PERRLA Neck: Supple, No JVD, No Thyromegaly Lungs: Clear to Auscultation, Normal Air Movement Heart: Regular Rate, Normal S1, Normal S2, No Murmurs Abdomen: Normal Bowel Sounds, Soft, No Tenderness, No Hepatosplenomegaly, No Masses Extremities: No Clubbing, No Cyanosis, No Edema, Normal Pulses, No Tenderness/ Swelling Skin: No Rashes, No Breakdown, No Significant Lesion Neuro: Normal Speech Psych/Mental Status: Mental Status NL, Mood NL Results Lab Laboratory Tests 07/11/18 16:30 07/12/18 05:30 A/P-Cardiology Admission Diagnosis Generalized debility/weakness Volume overload CKD Obesity Assessment/Plan Diffuse myositits with generalized debility/weakness- continue PT/OT Fluid overload, excellent response to Lasix. Continue to diurese and continue to monitor. 2D Echo done 07/11/18 revealed grade 2 diastolic dysfunction, EF 55- 65%. Hypertension, continue on current medications and continue to monitor. Chronic kidney disease, continue to monitor renal function. Obesity hypoventilation syndrome Obstructive sleep apnea Liver cirrhosis with nonalcoholic steatohepatitis, follows with specialist at as outpatient History of hepatitis C Diabetes, on insulin. Chronic use of steroids Clinical Quality Measures DVT/VTE Risk/Contraindication: Risk Factor Score Per Nursin RFS Level Per Nursing on Admit: 4+=Very High Supervisory-Addendum Brief Supervisory Addendum Participated in pt care: history, MDM, physical Personally performed: exam, history, MDM Care discussed with: AARON Results interpretation: agree with documentation Notes: patient was seen and evaluated with Gallo, she is sitting in a chair, still complaining of generalized weakness, shortness of breath, chest x-rays pending. On examination lungs had bilateral rhonchi, heart is regular. Continue on current medication continue to monitor, monitor blood pressure and lipids, continue physical therapy for myositis and monitor renal function. GALLO TESFAYE Jul 12, 2018 12:03 IRENE SUMMERS MD Jul 12, 2018 16:13
--- NOTE | 2018-07-12 14:23 | Therapy Group Daily Note ---
Therapy Daily Group Note Patient Education Topic Exercises Exercises LE Seated Exercise, UE Exercise Session Ratio (pt:therapist): 4:1 Goal of Session: UE/LE Strengthing Goal Met for this Session: Yes Pt Benefit of Group: Contributions to Others, F/U Use of Strategies @Home, Increased Functional Strength, Recognition of Peers, Socialization Other/Notes Pt sat in recliner and was transported to OT/PT group. Group consisted of introductions (name, place living, name of kindergarten), socialization and UE/ LE seated exercises with education. Pt introduced self appropriately and actively listened to peers. Pt had laxatives prior to group and needed to go to bathroom during group. Assist x2 for toileting then pt came back to group. Pt verbalized understanding of education and completed exercises using light resistance theraband and 1# wrist/ankle wts, verbal/physical cues needed for correct technique. Pt able to verbalize own exercises that were completed as a daily activity. After therapy, pt sitting in recliner with call light/phone in reach. All needs met in room. Start Time: 13:00 Stop Time: 14:05 Total Billed Treatment Time: 65 Total Billed Treatment 1-GRP ARNAUD DIA Jul 12, 2018 14:23
--- NOTE | 2018-07-12 14:28 | NUR ---
DOWNSTAIRS FOR CXR.
--- NOTE | 2018-07-12 14:30 | NUR ---
TODAY'S LABS FAXED TO DR. KENT AT .
--- NOTE | 2018-07-12 14:49 | NUR ---
Pt is [employer]. Declined Communion for today.
--- NOTE | 2018-07-12 15:00 | NUR ---
PRODUCT ANALYST met with patient and patient's mother to review team conference summary. As patient requires min assist for sit to stand, mod assist for transfers, mod assist of 2 for ADL transfers and max assist of 2 for lower body dressing, team has recommended patient be reevaluated at next team conference on 51. Additionally, patient continues to have fluid fluctuation and elevated ammonia levels. Dr. Subramanian has kept in regular contact with in regards to this complex case. Patient and mother are in agreement with reevaluation next week. PRODUCT ANALYST received notification from Dr. Wilkinson's office of need to arrange a trilogy machine at discharge. PRODUCT ANALYST sent updated clinical information to [facility] with request additional 7 days, request was approved with next update due on 51. PRODUCT ANALYST will continue to follow.
--- NOTE | 2018-07-12 17:02 | Diagnostic Imaging Report ---
INDICATION: Hypoxemia. EXAMINATION: PA and lateral chest. FINDINGS: Heart size is mildly enlarged. Pulmonary vascularity is normal. Lungs are clear. IMPRESSION: Cardiomegaly without evidence of pulmonary venous hypertension. Dictated by: Dictated on workstation # [id number]
[2018-07-12 17:53] VITALS: BP 158/83
--- NOTE | 2018-07-12 19:00 | NUR ---
UP TO COMMODE X 12 TODAY WITH VOIDING, STOOLS, OR NO RESULTS AT ALL. 6 STOOLS TODAY. ONE SMALL, ONE MEDIUM AND 4 LARGE AMOUNTS. LESS CONFUSED AND STRONGER THIS AFTERNOON.
[2018-07-12] MEDS: AMITRIPTYLINE 25 MG (ELAVIL) TAB PO SCH (20:41)
[2018-07-12] MEDS: ACETAMINOPHEN 325 MG TABLET PO PRN (20:42)
[2018-07-13] MEDS: LACTULOSE SYRUP 10GM/15ML (ENULOSE) 30ML UDC PO SCH ×5 (02:31→14:44)
[2018-07-13] MEDS: MULTIVIT W/MINERALS TAB (THERAGRAN M) PO SCH (05:51)
[2018-07-13] MEDS: PROMACTA 50 MG PO SCH (05:51)
[2018-07-13 05:55] LABS: HEMATOCRIT 24 % (35-52); HEMOGLOBIN 7.5 G/DL (11.5-16.0); MEAN CORPUSCULAR HEMOGLOBIN 28 PG (25-34); MEAN CORPUSCULAR HGB CONC 31 G/DL (32-36); MEAN CORPUSCULAR VOLUME 90 FL (80-99); PLATELET COUNT 66 10^3/uL (130-400); RED CELL DISTRIBUTION WIDTH 22.5 % (10.0-14.5); WHITE BLOOD COUNT 22.5 10^3/uL (4.3-11.0)
[2018-07-13 06:04] VITALS: BP 103/67
[2018-07-13 06:20] LABS: ALBUMIN 3.1 GM/DL (3.2-4.5); CALCIUM 8.3 MG/DL (8.5-10.1); CREATININE SERUM 1.29 MG/DL (0.60-1.30)
[2018-07-13 06:23] LABS: INR 1.4 (0.8-1.4); PROTHROMBIN TIME PATIENT 17.5 SEC (12.2-14.7)
[2018-07-13 06:35] LABS: ANISOCYTOSIS MODERATE; EOSINOPHILS % (MANUAL) 4 %; HYPOCHROMASIA SLIGHT; LYMPHOCYTES % (MANUAL) 18 %; MICROCYTOSIS SLIGHT; MONOCYTES % (MANUAL) 10 %; NEUTROPHILS % (MANUAL) 68 %
[2018-07-13] MEDS: inSUlin ASPART (NovoLOG) 1 UNIT/0.01 ML (CHARGE PER UNIT) SC SCH ×3 (07:00→16:19)
--- NOTE | 2018-07-13 08:17 | Cardiology Progress Note ---
Subjective Date Seen by Provider: Jul 13, 2018 Time Seen by Provider: 08:16 Subjective/Events-last exam Patient is sitting up in bed, tearful about her condition. Denies any chest pain or dyspnea. Objective-Cardiology Exam Last Set of Vital Signs Vital Signs 07/13/18 07/13/18 07/13/18 07/13/18 06:04 08:43 09:00 09:50 Temp 98.4 Pulse 68 Resp 20 B/P (MAP) 116/80 (92) Pulse Ox 92 O2 Delivery Nasal Cannula O2 Flow Rate 2.00 Capillary Refill : I&O Intake and Output 07/13/18 00:00 Intake Total 1200 ml Output Total 1450 ml Balance -250 ml Intake Oral 1200 ml Output Urine Total 1450 ml # Voids 2 # Bowel Movements 8 General: Alert, Oriented X3, Cooperative HEENT: Atraumatic, PERRLA Neck: Supple, No JVD, No Thyromegaly Lungs: Clear to Auscultation, Normal Air Movement Heart: Regular Rate, Normal S1, Normal S2, No Murmurs Abdomen: Normal Bowel Sounds, Soft, No Tenderness, No Hepatosplenomegaly, No Masses Extremities: No Clubbing, No Cyanosis, No Edema, Normal Pulses, No Tenderness/ Swelling Skin: No Rashes, No Breakdown, No Significant Lesion Neuro: Normal Speech Psych/Mental Status: Mental Status NL, Mood NL Results Lab Laboratory Tests 07/13/18 05:45 A/P-Cardiology Admission Diagnosis Generalized debility/weakness Volume overload CKD Obesity Assessment/Plan Diffuse myositits with generalized debility/weakness- continue PT/OT Fluid overload, excellent response to Lasix. Continue to diurese and continue to monitor. 2D Echo done 07/11/18 revealed grade 2 diastolic dysfunction, EF 55- 65%. Hypertension, continue on current medications and continue to monitor. Chronic kidney disease, continue to monitor renal function. Obesity hypoventilation syndrome Obstructive sleep apnea Liver cirrhosis with nonalcoholic steatohepatitis, follows with specialist at as outpatient History of hepatitis C Diabetes, on insulin. Chronic use of steroids Clinical Quality Measures DVT/VTE Risk/Contraindication: Risk Factor Score Per Nursin RFS Level Per Nursing on Admit: 4+=Very High Supervisory-Addendum Brief Supervisory Addendum Participated in pt care: history, MDM, physical Personally performed: exam, history, MDM Care discussed with: PA Results interpretation: agree with documentation Notes: Patient was seen and evaluated with Yaritza, still having generalized fatigue and loss of energy, I discussed the management plan with Dr. Subramanian. We'll continue with conservative management at this point. Continue to monitor heart rate and blood pressure, continue with diuretics and monitor tolerance and response. YARITZA TESFAYE Jul 13, 2018 08:17 IRENE SUMMERS MD Jul 13, 2018 15:45
--- NOTE | 2018-07-13 08:22 | Physical Therapy Progress Note ---
Therapy Progress Note Patient refused therapy treatment this morning. Patient states she is too tired and ill and doesn't want to participate. Patient educated on the benefits of therapy and she continues to refuse. Patient has an elevated ammonia level. Nurse and doctor notified. ENRRIQUE ROJO PT Jul 13, 2018 08:22
--- NOTE | 2018-07-13 08:29 | Diagnostic Imaging Report ---
INDICATION: Confusion Frontal chest obtained at 8:12 a.m. and compared to yesterday. There is cardiomegaly. There is central vascular congestion with some minimal infiltrate or atelectasis in the right medial base. Study limited by poor inspiration. IMPRESSION: Cardiomegaly with central vascular congestion. There is questionable infiltrate versus atelectasis in the right medial base. Limited study due to poor inspiration. Consider followup as warranted. Dictated by: Dictated on workstation # [id number]
--- NOTE | 2018-07-13 08:30 | PM&R Progress Note ---
Subjective HPI/CC On Admission Date Seen by Provider: Jul 13, 2018 Time Seen by Provider: 08:15 CC: Disuse myopathy HPI: This is a 52yoWF clinic patient of Dr Torres who presents back to [facility] where she was transferred from the ICU to [facility] on 06/24/18 due to worsened respiratory status and renal failure. Patient had a lengthy hospital course at [facility] from 06/24 until 07/07/18 which included aggressive diuresis which resulted in a 54# weight loss since last at [facility]. Patient required Lasix infusion and close Nephrology and Cardiology and Pulmonology monitoring during the course. Patient' s creatinine is 1.3 and currently tolerating Miralax and Lactulose QID to maintain low ammonia levels and platelets will be monitored closely and sent to Hematology at [facility] as requested. biPAP was placed on patient per Dr Wilkinson's direction last night at 15/7 pressure level. I reviewed extensive chart from [facility] and reviewed and reconciled and restarted all meds she was on at [facility]. Patient feels much better but she is frustrated because she cannot walk. Barriers to returning home with include regaining the ability to walk and prevent falls and improve ADL independence. PLOF was independent now she is 2 person assist. Subjective/Events-last exam Elevated ammonia level at 83 is prompting the dose of lactulose to be every 3 hours to prompt diarrhea to decrease that level Tremors remain and complicating therapy due to shaking Checking iron level due to hemoglobin in the 7 range Creatinine improved at 1.3 today Lasix 40 mg IV Q48hrs to optimize effectiveness and salvage kidney function Will DC Miralax Oxygen is maintained at 2 liters PT reports moderate assistance because of jerking movements OT reports two person assist with ADLs Objective Exam Vital Signs Vital Signs Date Time Temp Pulse Resp B/P (MAP) Pulse Ox O2 Delivery O2 Flow Rate FiO2 07/13/18 08:43 92 Nasal Cannula 2.00 07/13/18 06:04 98.4 65 20 103/67 (79) Capillary Refill : General Appearance: No Apparent Distress, WD/WN, Chronically ill, Obese HEENT: PERRL/EOMI, Normal ENT Inspection, Pharynx Normal, Moist Mucous Membranes Neck: Full Range of Motion, Normal Inspection, Non Tender, Supple Respiratory: Chest Non Tender, Lungs Clear, Normal Breath Sounds, No Accessory Muscle Use, No Respiratory Distress Cardiovascular: Regular Rate, Rhythm, No Edema, No Gallop, No JVD, No Murmur Gastrointestinal: Normal Bowel Sounds, No Organomegaly, No Pulsatile Mass, Non Tender, Soft Back: Normal Inspection, No CVA Tenderness, No Vertebral Tenderness Extremity: Normal Capillary Refill, Normal Inspection, Normal Range of Motion, Non Tender, No Calf Tenderness, No Pedal Edema Neurologic/Psychiatric: Alert, Oriented x3, Normal Mood/Affect, Motor Weakness (3/5 all extremities) Reflexes: 4+ Bicep (R), 4+ Bicep (L), 4+ Tricep (R), 4+ Tricep (L), 4+ Knee (R) , 4+ Knee (L), 4+ Ankle (R), 4+ Ankle (L) Skin: Normal Color, Warm/Dry Lymphatic: No Adenopathy Results/Procedures Lab Laboratory Tests 07/13/18 05:45 Patient resulted labs reviewed. [facility] Transfers Therapy Code Descriptions/Definitions Functional Brule Measure: 0=Not Assessed/NA 4=Minimal Assistance 1=Total Assistance 5=Supervision or Setup 2=Maximal Assistance 6=Modified Brule 3=Moderate Assistance 7=Complete Brule Therapy Quality Codes: 6 Independent with activity with or without an assistive device 5 Patient requires set up or clean up by helper. Patient completes activity by themselves 4 Supervision or touching assist (CGA). [place] provide cues , steadying assist 3 The helper provides less than half the effort to complete the activity 2 The helper provides more than half the effort to complete the activity 1 Dependent. The helper does all the effort to complete an activity 7 Patient refused to complete or attempt activity 9 The patient did not perform the activity before the current illness or injury 88 Not attempted due to Medical conditions or safety concerns Mental Status/Objective Comprehension: 7 Expression: 7 Social Interaction: 7 Problem Solvin Memory: 7 ADL-Treatment Feedin (set up by report) Eating (QC): 5 Groomin Oral Hygiene (QC): 5 Bathin (Sitting on BSC using grabbars and hand held shower pt bathes 60% of body. Assist to wash under pannis and all lower body. Verbal cues to use both UE's during bathing. Assist x2 to stand and cleanse luther area/buttocks, one to stand and one to wash.) Bathing Location: L Arm, R Arm, L Upper Leg, R Upper Leg, Chest, Abdomen Shower/Bathe Self (QC): 1 Upper Extremity Dressin (After set up, pt requires verbal cues to doff over head first and assist to reach to get over head. Pt threads arms then needs assist to pull down in back.) Upper Body Dressing (QC): 3 Lower Extremity Dressin Lower Body Dressing (QC): 1 On/Off Footwear (QC): 2 Toiletin Toileting Hygiene (QC): 1 Toilet/Commode Transfer: 1 Toilet Transfer (QC): 1 Shower: 1 (Min A sit to stand from elevated surface. Mod assist x2 for pivot transfer with/without FWW. 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 with (2) H/O splenectomy (3) ESSENTIAL (PRIMARY) HYPERTENSION (4) Hepatitis C virus infection resolved after antiviral drug therapy (5) Nocturnal hypoxemia-maintained on biPAP since admit to [facility] the first time (6) Liver cirrhosis secondary to [place] (7) Increased ammonia level-increase Lactulose and DC Miralax (8) Obesity (BMI 30-39.9) (9) History of ITP (10) End stage liver disease (11) Chronic back pain-increased since fall 6 weeks ago (12) History of pneumonia last on abx 06/24/18 (13) Thrombocytopenia (14) Renal insufficiency-monitor closely (15) LOCALIZED EDEMA-much improved (16) WEAKNESS (17) TYPE 2 DIABETES MELLITUS WITH DIABETIC POLYNEUROPATHY (18) Leukocytosis-chronic, bone marrow inconclusive so splenectomy likely source (19) Jaundice (20) Ascites (21) Anemia (22) Hepatic encephalopathy Plan: Monitor platelets, Hgb, creat and ammonia closely Lactulose increase and DC Miralax to decrease ammonia elevation Diuretics as scheduled IV QOD Intensive therapies biPAP 02/[address] Jaja Martini ADA and low sodium diet Fluid restriction 1500cc/day Midline yesterday and changed Lasix to IV Consult Dr Olvera front of house manager for Dr Adamson Very complex issues. (1) Disuse muscle atrophy (2) Diabetes mellitus (3) Fall Resolution Date/Time: 06/18/18 @ 13:53 (4) History of acute respiratory failure (5) History of hematemesis (6) VENOUS INSUFFICIENCY (CHRONIC) (PERIPHERAL) (7) DIFFICULTY IN WALKING, NOT ELSEWHERE CLASSIFIED (8) Respiratory failure Resolution Date/Time: 06/20/18 @ 10:07 (9) Hypotension Resolution Date/Time: 06/20/18 @ 10:07 (10) Metabolic acidosis (11) Ventilator dependent (12) Hepatic encephalopathy Resolution Date/Time: 06/18/18 @ 13:52 (13) Anemia (14) Ascites (15) Jaundice (16) Leukocytosis (17) Renal insufficiency (18) Thrombocytopenia (19) History of pneumonia (20) Chronic back pain (21) End stage liver disease (22) History of ITP (23) Obesity (BMI 30-39.9) (24) Increased ammonia level Resolution Date/Time: 06/18/18 @ 13:54 (25) Liver cirrhosis secondary to [place] (26) Nocturnal hypoxemia (27) Hepatitis C virus infection resolved after antiviral drug therapy (28) TYPE 2 DIABETES MELLITUS WITH DIABETIC POLYNEUROPATHY (29) ESSENTIAL (PRIMARY) HYPERTENSION (30) WEAKNESS (31) LOCALIZED EDEMA (32) H/O splenectomy NUHA LUCAS DO Jul 13, 2018 08:30
[2018-07-13 08:48] LABS: ABG BASE EXCESS 2.7 MMOL/L (-2.5-2.5); ABG OXYGEN SATURATION 98 % (94-100); ABG PCO2 37 MMHG (35-45); ABG PH 7.47 (7.37-7.43); ABG PO2 91 MMHG (79-93); ABG TCO2 27.5 MMOL/L (21.0-31.0)
[2018-07-13 08:52] LABS: ALLENS TEST YES-POS; PATIENT TEMP 97; VENTILATOR NO
--- NOTE | 2018-07-13 09:00 | NUR ---
LINE UP WORKER was made aware by RN, Nella that patient and family have requested transfer to , following discussion with Dr. Subramanian at this morning. LINE UP WORKER faxed all clinical information to transfer center following Dr. Subramanian's initial call to . LINE UP WORKER met with patient and family to discuss transfer, family expressed frustrations with the content and information provided by Dr. Subramanian, as patient and family left with the understanding of a good prognosis. They were shocked to hear that end-of-life planning needed to occur. Family feels that patient was stabilized at and has declined since admission to [facility]. Family then requested LINE UP WORKER to compare med list at to [facility] regimen, to compare frequency of BMs and any other information that may indicate reason for decline. 200p-Following extensive review of medical records in comparison to TNU information, orders remain consistent, bowel movements were more frequent and [facility], and labs were closely monitored and reported to as requested. Family was relieved to hear this information; however, remains dissatisfied with significant decline. 330p-received acceptance from Dr. Talib Ramachandran for admission to room [facility]. LINE UP WORKER arranged [facility] ambulance for transport at 5p. Please see discharge summary for further information
[2018-07-13] MEDS ORDERED: PREG75CA PO (09:21)
[2018-07-13] MEDS ORDERED: METO-333 PO (09:21)
--- NOTE | 2018-07-13 09:23 | Discharge Summary ---
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 UTI dx prior to transfer to [facility] given Rocephin Plan: Monitor platelets, Hgb, creat and ammonia closely Lactulose increase and DC Miralax to decrease ammonia elevation Diuretics as scheduled IV QOD Intensive therapies biPAP 15/[address] Jaja Martini ADA and low sodium diet Fluid restriction 1500cc/day Midline yesterday and changed Lasix to IV Consult Dr Olvera plant production manager for Dr Adamson Very complex issues. Discharge Summary Discharge Physical Examination Allergies: Coded Allergies: hydromorphone (Verified Allergy, Severe, ANAPHYLAXIS, 06/18/18) metoclopramide (Unverified Allergy, Unknown, 07/21/16) Vitals & I&Os Vital Signs Date Time Temp Pulse Resp B/P (MAP) Pulse Ox O2 Delivery O2 Flow Rate FiO2 07/13/18 16:12 98.7 72 14 143/72 (95) 95 Nasal Cannula 2.00 General Appearance: Alert, Oriented X3, Cooperative, Other (lethargic) Respiratory: Clear to Auscultation, Normal Air Movement Cardiovascular: Regular Rate, Normal S1, Normal S2 Psych/Mental Status: Other (confused, lethargic) Hospital Course Was the Problem List Reviewed?: Yes Hospital course: Pt had a very complex hospital course that required a total of seven days of intensive medical therapy along with PT. She was admitted due to unable to ambulate due to critical illness myopathy resulted from admission to for two weeks for respiratory insufficiency and acute renal failure with liver failure. She had done very well, underwent a 54lb weight loss with fluid while she was at and cardiology and pulmonology were all consulted with this very complex case. She did well, but ammonia started to climb and was able to place a midline for IV diuresis which was very effective given rise to improved creatinine after discontinuing the oral Lasix. Ammonia did become more elevated at 134 with asterixis, lethargy, and hepatic encephalopathy so UA was checked along with chest X-ray ABG and to continue the Lactulose for ammonia elevation and Dr. Tasha Martin, head of hepatology department at was notified to inquire if there was anything else that we could do to help this lady since she appeared to be in stage and he confirmed the fact that she is not a transplant candidate and if she could not survive outside of a hospital she needed to be on hospice, so I did have a long conversation with the family which resulted in a great deal of harsh delivery by the son and her in agreement that we did not have the capabilities that did and she did fantastic at and every time she came back to [facility] she declined rapidly, so even though intensive medical treatment was provided it was felt that she needed higher level of care and Pt was referred to [facility] with Dr. Martin helping that transfer process and hopefully be able to attend to her speciality needs, but Pt appears to be in stage and her prognosis remains poor as Dr. Martin had confirmed. UTI dx prior to DC so patient was given 1 dose of Rocephin. Labs (last 24 hrs) Laboratory Tests 07/07/18 22:36: Glucometer 173H 07/08/18 04:47: Glucometer 124H 07/08/18 08:45: White Blood Count 24.8H, Red Blood Count 3.12L, Hemoglobin 8.6L, Hematocrit 28L , Mean Corpuscular Volume 90, Mean Corpuscular Hemoglobin 28, Mean Corpuscular Hemoglobin Concent 31L, Red Cell Distribution Width 23.2H, Platelet Count 54L, Mean Platelet Volume , Neutrophils (%) (Auto) , Lymphocytes (%) (Auto) , Monocytes (%) (Auto) , Eosinophils (%) (Auto) , Basophils (%) (Auto) , Neutrophils # (Auto) , Lymphocytes # (Auto) , Monocytes # (Auto) , Eosinophils # (Auto) , Basophils # (Auto) , Neutrophils % (Manual) 64, Lymphocytes % (Manual ) 22, Monocytes % (Manual) 13, Band Neutrophils 1, Toxic Granulation 1+, Hypochromasia MODERATE, Anisocytosis MODERATE, Crenated Cell SLIGHT, Acanthocytes , Schistocytes SLIGHT, Prothrombin Time 17.7H, INR Comment 1.4, Sodium Level 144, Potassium Level 4.5, Chloride Level 102, Carbon Dioxide Level 30, Anion Gap 12, Blood Urea Nitrogen 26H, Creatinine 1.29, Estimat Glomerular Filtration Rate 43, BUN/Creatinine Ratio 20, Glucose Level 76, Calcium Level 9.3 , Corrected Calcium 9.8, Total Bilirubin 1.2H, Aspartate Amino Transf (AST/SGOT ) 41H, Alanine Aminotransferase (ALT/SGPT) 21, Alkaline Phosphatase 98, Ammonia 43H, Total Protein 6.6, Albumin 3.4 07/08/18 10:57: Glucometer 119H 07/08/18 16:13: Glucometer 99 07/08/18 17:59: Glucometer 123H 07/08/18 21:03: Glucometer 139H 07/09/18 05:40: Glucometer 77 07/09/18 11:00: Glucometer 137H 07/09/18 16:49: Glucometer 117H 07/09/18 20:19: Glucometer 167H 07/10/18 05:09: Glucometer 210H 07/10/18 08:45: White Blood Count 24.5H, Red Blood Count 2.93L, Hemoglobin 8.1L, Hematocrit 26L , Mean Corpuscular Volume 90, Mean Corpuscular Hemoglobin 28, Mean Corpuscular Hemoglobin Concent 31L, Red Cell Distribution Width 23.2H, Platelet Count 81L, Mean Platelet Volume , Sodium Level 140, Potassium Level 4.7, Chloride Level 106 , Carbon Dioxide Level 26, Anion Gap 8, Blood Urea Nitrogen 26H, Creatinine 1.41H, Estimat Glomerular Filtration Rate 39, BUN/Creatinine Ratio 18, Glucose Level 137H, Calcium Level 8.7, Corrected Calcium 9.3, Magnesium Level 2.9H, Total Bilirubin 1.1H, Aspartate Amino Transf (AST/SGOT) 39H, Alanine Aminotransferase (ALT/SGPT) 20, Alkaline Phosphatase 103, Ammonia 68H, Total Protein 6.5, Albumin 3.3 07/10/18 11:23: Glucometer 106 07/10/18 15:38: Glucometer 138H 07/10/18 20:03: Glucometer 207H 07/11/18 05:19: White Blood Count 22.6H, Red Blood Count 2.63L, Hemoglobin 7.5L, Hematocrit 23L , Mean Corpuscular Volume 89, Mean Corpuscular Hemoglobin 29, Mean Corpuscular Hemoglobin Concent 32, Red Cell Distribution Width 22.6H, Platelet Count 72L, Mean Platelet Volume , Neutrophils (%) (Auto) 53, Lymphocytes (%) (Auto) 27, Monocytes (%) (Auto) 14H, Eosinophils (%) (Auto) 5, Basophils (%) (Auto) 1, Neutrophils # (Auto) 11.9H, Lymphocytes # (Auto) 6.2H, Monocytes # (Auto) 3.1H, Eosinophils # (Auto) 1.1H, Basophils # (Auto) 0.3H, Sodium Level 141, Potassium Level 5.3H, Chloride Level 106, Carbon Dioxide Level 27, Anion Gap 8, Blood Urea Nitrogen 32H, Creatinine 1.65H, Estimat Glomerular Filtration Rate 32, BUN/ Creatinine Ratio 19, Glucose Level 121H, Calcium Level 8.4L, Corrected Calcium 9.2, Total Bilirubin 1.1H, Aspartate Amino Transf (AST/SGOT) 36H, Alanine Aminotransferase (ALT/SGPT) 19, Alkaline Phosphatase 88, Ammonia 65H, Total Protein 5.9L, Albumin 3.0L 07/11/18 11:06: Glucometer 177H 07/11/18 15:29: Glucometer 143H 07/11/18 16:30: Sodium Level 139, Potassium Level 4.8, Chloride Level 104, Carbon Dioxide Level 25, Anion Gap 10, Blood Urea Nitrogen 32H, Creatinine 1.58H, Estimat Glomerular Filtration Rate 34, BUN/Creatinine Ratio 20, Glucose Level 130H, Calcium Level 8.5 07/11/18 20:30: Glucometer 205H 07/12/18 05:30: White Blood Count 23.4H, Red Blood Count 2.68L, Hemoglobin 7.5L, Hematocrit 24L , Mean Corpuscular Volume 88, Mean Corpuscular Hemoglobin 28, Mean Corpuscular Hemoglobin Concent 32, Red Cell Distribution Width 22.8H, Platelet Count 79L, Mean Platelet Volume , Neutrophils (%) (Auto) 58, Lymphocytes (%) (Auto) 25, Monocytes (%) (Auto) 12, Eosinophils (%) (Auto) 4, Basophils (%) (Auto) 1, Neutrophils # (Auto) 13.5H, Lymphocytes # (Auto) 5.8H, Monocytes # (Auto) 2.9H, Eosinophils # (Auto) 0.9H, Basophils # (Auto) 0.2H, Prothrombin Time 16.9H, INR Comment 1.3, Sodium Level 139, Potassium Level 5.0, Chloride Level 106, Carbon Dioxide Level 25, Anion Gap 8, Blood Urea Nitrogen 30H, Creatinine 1.38H, Estimat Glomerular Filtration Rate 40, BUN/Creatinine Ratio 22, Glucose Level 114H, Calcium Level 8.3L, Corrected Calcium 9.2, Iron Level 148, Total Bilirubin 1.0, Aspartate Amino Transf (AST/SGOT) 37H, Alanine Aminotransferase ( ALT/SGPT) 20, Alkaline Phosphatase 90, Ammonia 85H, B-Type Natriuretic Peptide 188.6H, Total Protein 5.9L, Albumin 2.9L 07/12/18 11:36: Glucometer 186H 07/12/18 16:54: Glucometer 123H 07/12/18 20:41: Glucometer 247H 07/13/18 05:45: White Blood Count 22.5H, Red Blood Count 2.70L, Hemoglobin 7.5L, Hematocrit 24L , Mean Corpuscular Volume 90, Mean Corpuscular Hemoglobin 28, Mean Corpuscular Hemoglobin Concent 31L, Red Cell Distribution Width 22.5H, Platelet Count 66L, Mean Platelet Volume , Neutrophils (%) (Auto) , Lymphocytes (%) (Auto) , Monocytes (%) (Auto) , Eosinophils (%) (Auto) , Basophils (%) (Auto) , Neutrophils # (Auto) , Lymphocytes # (Auto) , Monocytes # (Auto) , Eosinophils # (Auto) , Basophils # (Auto) , Neutrophils % (Manual) 68, Lymphocytes % (Manual ) 18, Monocytes % (Manual) 10, Eosinophils % (Manual) 4, Hypochromasia SLIGHT, Anisocytosis MODERATE, Microcytosis SLIGHT, Prothrombin Time 17.5H, INR Comment 1.4, Sodium Level 139, Potassium Level 5.0, Chloride Level 107, Carbon Dioxide Level 24, Anion Gap 8, Blood Urea Nitrogen 28H, Creatinine 1.29, Estimat Glomerular Filtration Rate 43, BUN/Creatinine Ratio 22, Glucose Level 95, Calcium Level 8.3L, Corrected Calcium 9.0, Total Bilirubin 1.0, Aspartate Amino Transf (AST/SGOT) 43H, Alanine Aminotransferase (ALT/SGPT) 23, Alkaline Phosphatase 93, Ammonia 134H, Total Protein 6.0L, Albumin 3.1L 07/13/18 08:41: Blood Gas Puncture Site RT RADIAL, Blood Gas Patient Temperature 97, Arterial Blood pH 7.47H, Arterial Blood Partial Pressure CO2 37, Arterial Blood Partial Pressure O2 91, Arterial Blood HCO3 26, Arterial Blood Total CO2 27.5, Arterial Blood Oxygen Saturation 98, Arterial Blood Base Excess 2.7H, Sina Test YES-POS , Blood Gas Ventilator Setting NO, Blood Gas Inspired Oxygen 2% 07/13/18 09:15: Urine Color YELLOW, Urine Clarity CLEAR, Urine pH 8, Urine Specific Koppel 1.010L, Urine Protein NEGATIVE, Urine Glucose (UA) NEGATIVE, Urine Ketones NEGATIVE, Urine Nitrite POSITIVEH, Urine Bilirubin NEGATIVE, Urine Urobilinogen NORMAL, Urine Leukocyte Esterase 3+H, Urine RBC (Auto) 1+H, Urine RBC RARE, Urine WBC 50-100H, Urine Squamous Epithelial Cells 0-2, Urine Crystals NONE, Urine Bacteria MODERATEH, Urine Casts NONE, Urine Mucus NEGATIVE, Urine Culture Indicated YES 07/13/18 10:54: Glucometer 152H 07/13/18 16:11: Glucometer 254H Pending Labs Laboratory Tests 07/07/18 22:36: Glucometer 173 07/08/18 04:47: Glucometer 124 07/08/18 08:45: White Blood Count 24.8, Red Blood Count 3.12, Hemoglobin 8.6, Hematocrit 28, Mean Corpuscular Volume 90, Mean Corpuscular Hemoglobin 28, Mean Corpuscular Hemoglobin Concent 31, Red Cell Distribution Width 23.2, Platelet Count 54, Mean Platelet Volume , Neutrophils (%) (Auto) , Lymphocytes (%) (Auto) , Monocytes (%) (Auto) , Eosinophils (%) (Auto) , Basophils (%) (Auto) , Neutrophils # (Auto) , Lymphocytes # (Auto) , Monocytes # (Auto) , Eosinophils # (Auto) , Basophils # (Auto) , Neutrophils % (Manual) 64, Lymphocytes % (Manual ) 22, Monocytes % (Manual) 13, Band Neutrophils 1, Toxic Granulation 1+, Hypochromasia MODERATE, Anisocytosis MODERATE, Crenated Cell SLIGHT, Acanthocytes , Schistocytes SLIGHT, Prothrombin Time 17.7, INR Comment 1.4, Sodium Level 144, Potassium Level 4.5, Chloride Level 102, Carbon Dioxide Level 30, Anion Gap 12, Blood Urea Nitrogen 26, Creatinine 1.29, Estimat Glomerular Filtration Rate 43, BUN/Creatinine Ratio 20, Glucose Level 76, Calcium Level 9.3 , Corrected Calcium 9.8, Total Bilirubin 1.2, Aspartate Amino Transf (AST/SGOT) 41, Alanine Aminotransferase (ALT/SGPT) 21, Alkaline Phosphatase 98, Ammonia 43 , Total Protein 6.6, Albumin 3.4 07/08/18 10:57: Glucometer 119 07/08/18 16:13: Glucometer 99 07/08/18 17:59: Glucometer 123 07/08/18 21:03: Glucometer 139 07/09/18 05:40: Glucometer 77 07/09/18 11:00: Glucometer 137 07/09/18 16:49: Glucometer 117 07/09/18 20:19: Glucometer 167 07/10/18 05:09: Glucometer 210 07/10/18 08:45: White Blood Count 24.5, Red Blood Count 2.93, Hemoglobin 8.1, Hematocrit 26, Mean Corpuscular Volume 90, Mean Corpuscular Hemoglobin 28, Mean Corpuscular Hemoglobin Concent 31, Red Cell Distribution Width 23.2, Platelet Count 81, Mean Platelet Volume , Sodium Level 140, Potassium Level 4.7, Chloride Level 106 , Carbon Dioxide Level 26, Anion Gap 8, Blood Urea Nitrogen 26, Creatinine 1.41 , Estimat Glomerular Filtration Rate 39, BUN/Creatinine Ratio 18, Glucose Level 137, Calcium Level 8.7, Corrected Calcium 9.3, Magnesium Level 2.9, Total Bilirubin 1.1, Aspartate Amino Transf (AST/SGOT) 39, Alanine Aminotransferase ( ALT/SGPT) 20, Alkaline Phosphatase 103, Ammonia 68, Total Protein 6.5, Albumin 3.3 07/10/18 11:23: Glucometer 106 07/10/18 15:38: Glucometer 138 07/10/18 20:03: Glucometer 207 07/11/18 05:19: White Blood Count 22.6, Red Blood Count 2.63, Hemoglobin 7.5, Hematocrit 23, Mean Corpuscular Volume 89, Mean Corpuscular Hemoglobin 29, Mean Corpuscular Hemoglobin Concent 32, Red Cell Distribution Width 22.6, Platelet Count 72, Mean Platelet Volume , Neutrophils (%) (Auto) 53, Lymphocytes (%) (Auto) 27, Monocytes (%) (Auto) 14, Eosinophils (%) (Auto) 5, Basophils (%) (Auto) 1, Neutrophils # (Auto) 11.9, Lymphocytes # (Auto) 6.2, Monocytes # (Auto) 3.1, Eosinophils # (Auto) 1.1, Basophils # (Auto) 0.3, Sodium Level 141, Potassium Level 5.3, Chloride Level 106, Carbon Dioxide Level 27, Anion Gap 8, Blood Urea Nitrogen 32, Creatinine 1.65, Estimat Glomerular Filtration Rate 32, BUN/ Creatinine Ratio 19, Glucose Level 121, Calcium Level 8.4, Corrected Calcium 9.2 , Total Bilirubin 1.1, Aspartate Amino Transf (AST/SGOT) 36, Alanine Aminotransferase (ALT/SGPT) 19, Alkaline Phosphatase 88, Ammonia 65, Total Protein 5.9, Albumin 3.0 07/11/18 11:06: Glucometer 177 07/11/18 15:29: Glucometer 143 07/11/18 16:30: Sodium Level 139, Potassium Level 4.8, Chloride Level 104, Carbon Dioxide Level 25, Anion Gap 10, Blood Urea Nitrogen 32, Creatinine 1.58, Estimat Glomerular Filtration Rate 34, BUN/Creatinine Ratio 20, Glucose Level 130, Calcium Level 8.5 07/11/18 20:30: Glucometer 205 07/12/18 05:30: White Blood Count 23.4, Red Blood Count 2.68, Hemoglobin 7.5, Hematocrit 24, Mean Corpuscular Volume 88, Mean Corpuscular Hemoglobin 28, Mean Corpuscular Hemoglobin Concent 32, Red Cell Distribution Width 22.8, Platelet Count 79, Mean Platelet Volume , Neutrophils (%) (Auto) 58, Lymphocytes (%) (Auto) 25, Monocytes (%) (Auto) 12, Eosinophils (%) (Auto) 4, Basophils (%) (Auto) 1, Neutrophils # (Auto) 13.5, Lymphocytes # (Auto) 5.8, Monocytes # (Auto) 2.9, Eosinophils # (Auto) 0.9, Basophils # (Auto) 0.2, Prothrombin Time 16.9, INR Comment 1.3, Sodium Level 139, Potassium Level 5.0, Chloride Level 106, Carbon Dioxide Level 25, Anion Gap 8, Blood Urea Nitrogen 30, Creatinine 1.38, Estimat Glomerular Filtration Rate 40, BUN/Creatinine Ratio 22, Glucose Level 114, Calcium Level 8.3, Corrected Calcium 9.2, Iron Level 148, Total Bilirubin 1.0, Aspartate Amino Transf (AST/SGOT) 37, Alanine Aminotransferase (ALT/SGPT) 20, Alkaline Phosphatase 90, Ammonia 85, B-Type Natriuretic Peptide 188.6, Total Protein 5.9, Albumin 2.9 07/12/18 11:36: Glucometer 186 07/12/18 16:54: Glucometer 123 07/12/18 20:41: Glucometer 247 07/13/18 05:45: White Blood Count 22.5, Red Blood Count 2.70, Hemoglobin 7.5, Hematocrit 24, Mean Corpuscular Volume 90, Mean Corpuscular Hemoglobin 28, Mean Corpuscular Hemoglobin Concent 31, Red Cell Distribution Width 22.5, Platelet Count 66, Mean Platelet Volume , Neutrophils (%) (Auto) , Lymphocytes (%) (Auto) , Monocytes (%) (Auto) , Eosinophils (%) (Auto) , Basophils (%) (Auto) , Neutrophils # (Auto) , Lymphocytes # (Auto) , Monocytes # (Auto) , Eosinophils # (Auto) , Basophils # (Auto) , Neutrophils % (Manual) 68, Lymphocytes % (Manual ) 18, Monocytes % (Manual) 10, Eosinophils % (Manual) 4, Hypochromasia SLIGHT, Anisocytosis MODERATE, Microcytosis SLIGHT, Prothrombin Time 17.5, INR Comment 1.4, Sodium Level 139, Potassium Level 5.0, Chloride Level 107, Carbon Dioxide Level 24, Anion Gap 8, Blood Urea Nitrogen 28, Creatinine 1.29, Estimat Glomerular Filtration Rate 43, BUN/Creatinine Ratio 22, Glucose Level 95, Calcium Level 8.3, Corrected Calcium 9.0, Total Bilirubin 1.0, Aspartate Amino Transf (AST/SGOT) 43, Alanine Aminotransferase (ALT/SGPT) 23, Alkaline Phosphatase 93, Ammonia 134, Total Protein 6.0, Albumin 3.1 07/13/18 08:41: Blood Gas Puncture Site RT RADIAL, Blood Gas Patient Temperature 97, Arterial Blood pH 7.47, Arterial Blood Partial Pressure CO2 37, Arterial Blood Partial Pressure O2 91, Arterial Blood HCO3 26, Arterial Blood Total CO2 27.5, Arterial Blood Oxygen Saturation 98, Arterial Blood Base Excess 2.7, Sina Test YES-POS, Blood Gas Ventilator Setting NO, Blood Gas Inspired Oxygen 2% 07/13/18 09:15: Urine Color YELLOW, Urine Clarity CLEAR, Urine pH 8, Urine Specific Koppel 1.010, Urine Protein NEGATIVE, Urine Glucose (UA) NEGATIVE, Urine Ketones NEGATIVE, Urine Nitrite POSITIVE, Urine Bilirubin NEGATIVE, Urine Urobilinogen NORMAL, Urine Leukocyte Esterase 3+, Urine RBC (Auto) 1+, Urine RBC RARE, Urine WBC 50-100, Urine Squamous Epithelial Cells 0-2, Urine Crystals NONE, Urine Bacteria MODERATE, Urine Casts NONE, Urine Mucus NEGATIVE, Urine Culture Indicated YES 07/13/18 10:54: Glucometer 152 07/13/18 16:11: Glucometer 254 Discharge Home Medications: Active Scripts Active Lyrica (Pregabalin) 75 Mg Capsule 75 Mg PO BID 30 Days Metoprolol Tartrate 25 Mg Tablet 12.5 Mg PO BID 30 Days Reported Cyclobenzaprine HCl 10 Mg Tablet 10 Mg PO TID PRN Carisoprodol 350 Mg Tablet 350 Mg PO TID PRN Lisinopril 10 Mg Tablet 10 Mg PO DAILY Prozac (Fluoxetine HCl) 20 Mg Capsule 20 Mg PO DAILY Bumetanide 1 Mg Tablet 1 Mg PO DAILY Xifaxan (Rifaximin) 550 Mg Tablet 550 Mg PO BID Loratadine 10 Mg Tablet 10 Mg PO DAILY Lactulose 10 Gm/15 Ml Solution 20 Gm PO QID Humalog Kwikpen (Insulin Lispro) 100 Unit/1 Ml Insuln.pen 18 Unit SQ TIDAC Lantus Solostar (Insulin Glargine,Hum.rec.anlog) 100 Unit/1 Ml Insuln.pen 50 Unit SQ BID Promacta (Eltrombopag Olamine) 50 Mg Tablet 100 Mg PO DAILY TAKES 2 (50MG) TABLETS DAILY ON AN EMPTY STOMACH (AT LEAST 1 HOUR BEFORE OR 2 HOURS AFTER FOOD) SEPARATE ANTACIDS BY AT LEAST 4 HOURS Amitriptyline HCl 25 Mg Tablet 25 Mg PO HS Tylenol (Acetaminophen) 325 Mg Tablet 650 Mg PO Q4H PRN MAX OF 4000MG IN 24 HOURS Instructions to patient/family Please see electronic discharge instructions given to patient. 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 (3) Fall Status: Resolved Qualifiers: Qualified Codes: W19.XXXS - Unspecified fall, sequela Resolution Date/Time: 06/18/18 @ 13:53 (4) History of acute respiratory failure Status: Chronic (5) History of hematemesis Status: Chronic (6) VENOUS INSUFFICIENCY (CHRONIC) (PERIPHERAL) Status: Chronic (7) DIFFICULTY IN WALKING, NOT ELSEWHERE CLASSIFIED Status: Acute (8) Respiratory failure Status: Resolved Resolution Date/Time: 06/20/18 @ 10:07 (9) Hypotension Status: Resolved Resolution Date/Time: 06/20/18 @ 10:07 (10) Metabolic acidosis Status: Acute (11) Ventilator dependent Status: Acute (12) Hepatic encephalopathy Status: Resolved Resolution Date/Time: 06/18/18 @ 13:52 (13) Anemia Status: Chronic (14) Ascites Status: Chronic (15) Jaundice Status: Chronic (16) Leukocytosis Status: Chronic (17) Renal insufficiency Status: Chronic (18) Thrombocytopenia Status: Chronic (19) History of pneumonia Status: Acute (20) Chronic back pain Status: Chronic (21) End stage liver disease Status: Chronic (22) History of ITP Status: Chronic (23) Obesity (BMI 30-39.9) Status: Chronic (24) Increased ammonia level Status: Resolved Resolution Date/Time: 06/18/18 @ 13:54 (25) Liver cirrhosis secondary to [place]CG[place] Status: Chronic (26) Nocturnal hypoxemia Status: Chronic (27) Hepatitis C virus infection resolved after antiviral drug therapy Status: Chronic (28) TYPE 2 DIABETES MELLITUS WITH DIABETIC POLYNEUROPATHY Status: Chronic (29) ESSENTIAL (PRIMARY) HYPERTENSION Status: Chronic (30) WEAKNESS Status: Acute (31) LOCALIZED EDEMA Status: Acute (32) H/O splenectomy Status: Chronic Clinical Quality Measures DVT/VTE Risk/Contraindication: Risk Factor Score Per Nursin RFS Level Per Nursing on Admit: 4+=Very High NUHA LUCAS DO Jul 13, 2018 09:22
[2018-07-13 09:26] LABS: BILIRUBIN,URINE NEGATIVE (NEGATIVE); CLARITY,URINE CLEAR; COLOR,URINE YELLOW; GLUCOSE, URINE (UA) NEGATIVE (NEGATIVE); KETONES,URINE NEGATIVE (NEGATIVE); LEUKOCYTE ESTERASE ,URINE 3+ (NEGATIVE); NITRITE,URINE POSITIVE (NEGATIVE); PH,URINE 8 (5-9); PROTEIN,URINE NEGATIVE (NEGATIVE); UROBILINOGEN,URINE NORMAL (NORMAL)
[2018-07-13 09:34] LABS: BACTERIA,URINE MODERATE /HPF; RBC,URINE RARE /HPF; SQUAMOUS EPITHELIAL CELL,UR 0-2 /HPF; WBC,URINE 50-100 /HPF
[2018-07-13 09:50] VITALS: BP 116/80
[2018-07-13] MEDS: MICONAZOLE 2% POWDER (DESENEX AF) 90 GM TOP SCH (10:00)
[2018-07-13] MEDS: DULoxetine 30 MG (CYMBALTA) CAP PO SCH (10:00)
[2018-07-13] MEDS: PREGABALIN 75 MG (LYRICA) CAP PO SCH (10:01)
[2018-07-13] MEDS: meTOprolol TARTRATE 25 MG (LOPRESSOR) TABLET PO SCH (10:01)
[2018-07-13] MEDS: LORATADINE (CLARITIN) 10 MG TAB PO SCH (10:01)
[2018-07-13] MEDS: RIFAXIMIN 550 MG TABLET (XIFAXAN) PO SCH (10:01)
[2018-07-13] MEDS: MAGNESIUM OXIDE (MAG-OX)400 MG TAB PO SCH (10:01)
--- NOTE | 2018-07-13 10:46 | Occ Therapy Progress Note ---
Therapy Progress Note Patient refused therapy treatment this morning. Patient states she is too tired and ill and doesn't want to participate. Patient educated on the benefits of therapy and she continues to refuse. Patient has an elevated ammonia level. Nurse and doctor notified. ARNAUD DIA Jul 13, 2018 10:45
[2018-07-13] MEDS ORDERED: cefTRIAXone FOR IV USE 1,000 MG in WATER (STERILE) FOR INJECTION 10 ML IV SCH (11:15)
--- NOTE | 2018-07-13 13:21 | Physical Therapy Progress Note ---
Therapy Progress Note Patient refused therapy this morning. She is supposed to transfer to due to medical reasons and is just waiting on a bed. ENRRIQUE ROJO PT Jul 13, 2018 13:21
--- NOTE | 2018-07-13 15:13 | Therapy Team Discharge Summary ---
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 Upon evaluation patient performed bed mobility and transfers with mod to max assist, dependent for car transfer, ambulated 6' in the parallel bars with min assist. Patient has been performing bed mobility and transfer training, balance and endurance training, functional strengthening, gait training, and education. Patient has made poor progress and has not met any of her penitentiary goals. Now, patient is performing bed mobility and transfers with mod assist and ambulating short distances with a rolling walker with mod assist. True DC FIM's are not available because patient is abruptly being discharged back to due to medical reasons. Patient will be discharged from PT at this time. 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 Goals Prison Goals PT Aniline Press Worker Goals Time Frame: August 05, 2018 Transfers (B,C,W/C) (FIM): 6 Roll Left to Right (QC): 6 Sit to Lying (QC): 6 Lying-Sitting on Side/Bed(QC): 6 Sit to Stand (QC): 6 Chair/Bzg-za-Crres Xfer(QC): 6 Car Transfer (QC): 6 Does the Patient Walk: Yes Gait (FIM): 6 Gait distance (FIM): 3=150 ft Walk 10 feet (QC): 6 Walk 10ft-Uneven Surface(QC): 6 Walk 50ft with 2 Turns (QC): 6 Walk 150 ft (QC): 6 Gait Assistive Device: FWW Stairs (FIM): 5 # of Steps: 4 1 Step (curb) (QC): 6 4 Steps (QC): 6 12 Steps (QC): 88 Picking up an Object (QC): 4 OT Prison Goals Prison Goals Time Frame: July 29, 2018 Eating (FIM): 7 Eating (QC): 6 Oral Hygiene (QC): 6 Grooming(FIM): 6 Bathing(FIM): 5 Shower/Bathe Self (QC): 4 Upper Body Dressing(FIM): 6 Upper Body Dressing (QC): 6 Lower Body Dressing(FIM): 5 Lower Body Dressing (QC): 4 On/Off Footwear (QC): 5 Toileting(FIM): 5 Toileting Hygiene (QC): 4 Toilet/Commode Transfer(FIM): 5 Toilet/Commode Transfer (QC): 5 Shower Transfer(FIM): 5 Additional Goals: 1-Demonstrate ADL Tasks, 2-Verbalize Understanding, 3- ImproveStrength/Unique 1=Demonstrate adherence to instructed precautions during ADL tasks. 2=Patient will verbalize/demonstrate understanding of assistive devices/ modifications for ADL. 3=Patient will improve strength/tolerance for activity to enable patient to perform ADL's. ENRRIQUE ROJO PT Jul 13, 2018 15:13
[2018-07-13 16:12] VITALS: BP 143/72
--- NOTE | 2018-07-13 17:17 | NUR ---
Patient left facility to transfer to [facility] via EMS ground transport. Report Called to VERENA Ontiveros at . Family transported personal belongings.
--- NOTE | 2018-07-14 11:45 | Therapy Team Discharge Summary ---
Therapy Discharge Summary Discharge Recommendations Date of Discharge Jul 13, 2018 at 17:17 Occupational Therapy Pt admitted to ARU with disuse myopathy. On admission pt required SBA for grooming, Mod assist for UE dressing and bathing, and was dependent for LE dressing, toileting, and transfers (assist x2 for safety). Skilled OT intervention focused on ADL training, transfers, and strengthening. Pt has made poor progress. At d/c pt is completing UE dressing with SBA, and is dependent for LE dressing, bathing, and shower transfer. Pt did not meet any OT LTG. Pt was transferred back to secondary to medical status. D/C ARU OT at this time. Decreased Activ Tolerance, Decreased Safety Aware, Decreased UE Strength, Dependent Transfers, Impaired Self-Care Skills, Restricted Funct UE ROM PT Granite Fabricator Goals Granite Fabricator Goals PT Assisted Goals Time Frame: August 05, 2018 Transfers (B,C,W/C) (FIM): 6 Roll Left to Right (QC): 6 Sit to Lying (QC): 6 Lying-Sitting on Side/Bed(QC): 6 Sit to Stand (QC): 6 Chair/Uou-hh-Iqqnk Xfer(QC): 6 Car Transfer (QC): 6 Does the Patient Walk: Yes Gait (FIM): 6 Gait distance (FIM): 3=150 ft Walk 10 feet (QC): 6 Walk 10ft-Uneven Surface(QC): 6 Walk 50ft with 2 Turns (QC): 6 Walk 150 ft (QC): 6 Gait Assistive Device: FWW Stairs (FIM): 5 # of Steps: 4 1 Step (curb) (QC): 6 4 Steps (QC): 6 12 Steps (QC): 88 Picking up an Object (QC): 4 OT Granite Fabricator Goals Granite Fabricator Goals Time Frame: July 29, 2018 Eating (FIM): 7 Eating (QC): 6 Oral Hygiene (QC): 6 Grooming(FIM): 6 Bathing(FIM): 5 Shower/Bathe Self (QC): 4 Upper Body Dressing(FIM): 6 Upper Body Dressing (QC): 6 Lower Body Dressing(FIM): 5 Lower Body Dressing (QC): 4 On/Off Footwear (QC): 5 Toileting(FIM): 5 Toileting Hygiene (QC): 4 Toilet/Commode Transfer(FIM): 5 Toilet/Commode Transfer (QC): 5 Shower Transfer(FIM): 5 Additional Goals: 1-Demonstrate ADL Tasks, 2-Verbalize Understanding, 3- ImproveStrength/Unique 1=Demonstrate adherence to instructed precautions during ADL tasks. 2=Patient will verbalize/demonstrate understanding of assistive devices/ modifications for ADL. 3=Patient will improve strength/tolerance for activity to enable patient to perform ADL's. MOIZ GOULD OT Jul 14, 2018 11:45
--- NOTE | 2018-07-17 09:31 | Physical Therapy Daily Note ---
PT Daily Note-Current Subjective Agreeable to PT. Needs to transfer off the commode Mental Status Patient Orientation: Person, Place, Time, Situation Transfers Therapy Code Descriptions/Definitions Functional [place] Measure: 0=Not Assessed/NA 4=Minimal Assistance 1=Total Assistance 5=Supervision or Setup 2=Maximal Assistance 6=Modified [place] 3=Moderate Assistance 7=Complete [place] Therapy Quality Codes: 6 Independent with activity with or without an assistive device 5 Patient requires set up or clean up by helper. Patient completes activity by themselves 4 Supervision or touching assist (CGA). [place] provide cues , steadying assist 3 The helper provides less than half the effort to complete the activity 2 The helper provides more than half the effort to complete the activity 1 Dependent. The helper does all the effort to complete an activity 7 Patient refused to complete or attempt activity 9 The patient did not perform the activity before the current illness or injury 88 Not attempted due to Medical conditions or safety concerns Treatments Sit to stand x 2 with min assist to stand from the toilet and for nursing to provide pericare. SPT commode to chair with FWW with min assist and skilled cues for safety and sequencing. Worked on sit to stand transfers from the recliner x 3. Seated B LE ther ex x 15 for AP, LAQ, hip flex, ham curls and hip abduction. Pt then transferred chair to bed with FWW with close CG-min assist for safety. Pt required assist with both legs to get them into bed. Pt in bed with needs met post treatment. Assessment Current Status: Good Progress PT Short Term Goals Short Term Goals Time Frame: July 22, 2018 Transfers (B,C,W/C) (FIM): 4 Gait (FIM): 4 Wheelchair Distance: 60' PT Intermediate Goals Intermediate Goals PT Hand Glass Cutter Goals Time Frame: August 05, 2018 Transfers (B,C,W/C) (FIM): 6 Sit to Lying (QC): 6 Lying-Sitting on Side/Bed(QC): 6 Sit to Stand (QC): 6 Rollin Roll Left to Right (QC): 6 Chair/Xtg-af-Ouvyv Xfer(QC): 6 Car Transfer (QC): 6 Does the Patient Walk: Yes Gait (FIM): 6 Gait distance (FIM): 3=150 ft Walk 10 feet (QC): 6 Walk 10ft-Uneven Surface(QC): 6 Walk 50ft with 2 Turns (QC): 6 Walk 150 ft (QC): 6 Gait Assistive Device: FWW Stairs (FIM): 5 # of Steps: 4 1 Step (curb) (QC): 6 4 Steps (QC): 6 12 Steps (QC): 88 Picking up an Object (QC): 4 PT Plan Problem List Problem List: Activity Tolerance, Functional Strength, Safety Treatment/Plan Treatment Plan: Continue Plan of Care Treatment Plan: Bed Mobility, Education, Functional Activity Unique, Functional Strength, Group Therapy, Gait, Safety, Therapeutic Exercise, Transfers Treatment Duration: August 05, 2018 Frequency: At least 5 of 7 days/Wk (IRF) Estimated Hrs Per Day: 1.5 hours per day Patient and/or Family Agrees t: Yes Safety Risks/Education Patient Education: Safety Issues Teaching Recipient: Patient Teaching Methods: Discussion Response to Teaching: Reinforcement Needed Time/GCodes Time In: 1230 Time Out: 1300 Total Billed Treatment Time: 30 Total Billed Treatment visit EX 15 FA 15 ARNAUD MUNIZ PT Jul 17, 2018 09:31
== END 2018-07-13 17:17 | disposition short-term general hospital (02) | DRG 92 ==
PROVIDERS: ADMIT Internal Medicine; ATTEND Internal Medicine
DX: G72.81 Critical illness myopathy (principal); R26.2 Difficulty in walking, not elsewhere classified; K74.60 Unspecified cirrhosis of liver; K75.81 Nonalcoholic steatohepatitis (NASH); E66.2 Morbid (severe) obesity with alveolar hypoventilation; Z68.41 Body mass index [BMI] 40.0-44.9, adult; R18.8 Other ascites; N39.0 Urinary tract infection, site not specified; I85.00 Esophageal varices without bleeding; E11.42 Type 2 diabetes mellitus with diabetic polyneuropathy; I12.9 Hypertensive chronic kidney disease with stage 1 through stage 4 chronic kidney disease, or unspecified chronic kidney disease; N18.9 Chronic kidney disease, unspecified; E87.70 Fluid overload, unspecified; D69.6 Thrombocytopenia, unspecified; D64.9 Anemia, unspecified; E87.5 Hyperkalemia; I87.2 Venous insufficiency (chronic) (peripheral); K21.9 Gastro-esophageal reflux disease without esophagitis; F32.9 Major depressive disorder, single episode, unspecified; B96.20 Unspecified Escherichia coli [E. coli] as the cause of diseases classified elsewhere; Z79.52 Long term (current) use of systemic steroids; Z79.4 Long term (current) use of insulin
CPT/HCPCS: 36415; 36600; 71045; 71046; 76937; 80048; 80053; 81000; 82140; 82805; 82962; 83540; 83735; 83880; 85007; 85025; 85027; 85610; 87077; 87088; 87186; 93306; 94660; 94760